=== PATIENT | female | born 1960 | race American Indian/Alaskan Native ===

== ENCOUNTER 2016-06-19 13:13 | Inpatient (IN) | payer BC ==
[2016-06-19 13:57] LABS: Basophils % (Auto) 0.3 % (0.0-1.8); Hemoglobin 12.6 gm/dl (10.1-14.3); Mean Corpuscular HGB Conc 32 % (30-34); Mean Corpuscular Hemoglobin 27 pg (28-32); Mean Corpuscular Volume 84 fl (79-97); Platelet Count 426 K/mm3 (140-440); Red Blood Count 4.75 M/mm3 (3.65-5.03); Red Cell Distribution Width 14.9 % (13.2-15.2); White Blood Count 14.4 K/mm3 (4.5-11.0)
--- NOTE | 2016-06-19 14:05 | XRay Report ---
AP CHEST: HISTORY: Dyspnea The lungs are markedly hyperinflated consistent with advanced emphysematous changes. No evidence for infiltrate, pleural effusion or pneumothorax. Normal heart and mediastinal structures. IMPRESSION: Emphysematous changes. No acute process noted.
[2016-06-19 14:14] LABS: Anion Gap 13 mmol/L; Blood Urea Nitrogen 15 mg/dL (7-17); Carbon Dioxide 33 mmol/L (22-30); Glucose 126 mg/dL (65-100); Potassium 4.7 mmol/L (3.6-5.0); Sodium 136 mmol/L (137-145)
[2016-06-19 14:29] LABS: ISTAT Base Excess 9; ISTAT HCO3 35.2; ISTAT PCO2 71.8 (35-45); ISTAT PH 7.298 (7.35-7.45); ISTAT PO2 126 (80-105); ISTAT SO2 98; ISTAT TCO2 37
[2016-06-19] MEDS ORDERED: DUONEB 0.5 MG-3 MG/3 ML SOLN IH PRN (14:43)
[2016-06-19] MEDS ORDERED: TYLENOL PO PRN ×2 (14:43→14:48)
--- NOTE | 2016-06-19 14:43 | History and Physical Report ---
History of Present Illness Date of examination: 06/19/16 Chief complaint: I cant breathe, and i keep coughing History of present illness: 55 YO Female with Chronic Respiratory Failure on 4L continuous home oxygen, COPD , presents to ED for evaluation. Pt states that she has been experiencing shortness of breath, with increased coughing and sputum production over the past wee, but symptoms have worsened over the past 24 hours. Pt denies fever, chills, CP, Palpitations, NVD, hemoptysis, unintentional weight loss, night sweats, prolonged travel/immobility, individual/family history of DVT/PE. Past History Past Medical History: COPD, hypertension Past Surgical History: No surgical history, Other (reviewed) Social history: , Lives alone. denies: smoking, alcohol abuse, prescription drug abuse Family history: hypertension Medications and Allergies Allergies Allergy/AdvReac Type Severity Reaction Status Date / Time erythromycin base Allergy Unknown Verified 06/19/16 13:28 Penicillins Allergy Unknown Verified 06/19/16 16:21 Review of Systems All systems: negative Respiratory: cough with sputum, excessive sputum, shortness of breath Exam - Constitutional Vitals: Temp Pulse Resp BP Pulse Ox 98.2 F 102 H 30 H 169/110 99 06/19/16 13:13 06/19/16 13:13 06/19/16 13:13 06/19/16 13:13 06/19/16 13:13 General appearance: Present: mild distress - EENT Eyes: Present: PERRL ENT: hearing intact, clear oral mucosa - Neck Neck: Present: supple, normal ROM - Respiratory Respiratory effort: labored Respiratory: bilateral: diminished, rhonchi - Cardiovascular Rhythm: regular Heart Sounds: Present: S1 & S2 - Extremities Extremities: pulses symmetrical, No edema Peripheral Pulses: within normal limits - Abdominal General gastrointestinal: Present: soft, non-tender, non-distended, normal bowel sounds Female genitourinary: Present: normal - Integumentary Integumentary: Present: clear, warm, dry - Musculoskeletal Musculoskeletal: gait normal, strength equal bilaterally - Psychiatric Psychiatric: appropriate mood/affect, intact judgment & insight - Neurologic Neurologic: CNII-XII intact, moves all extremities Results - Labs CBC & Chem 7: 06/19/16 13:32 06/19/16 13:32 Labs: Abnormal lab results 06/19/16 06/19/1617 Range/Units 13:32 13:32 14:19 WBC 14.4 H (4.5-11.0) K/mm3 MCH 27 L (28-32) pg Lymph % (Auto) 9.6 L (13.4-35.0) % [place] % (Auto) 9.1 H (0.0-7.3) % [place] # 1.3 H (0.0-0.8) K/mm3 Seg Neutrophils % 81.0 H (40.0-70.0) % Seg Neutrophils # 11.7 H (1.8-7.7) K/mm3 POC ABG pH 7.298 L (7.35-7.45) POC ABG pCO2 71.8 H (35-45) POC ABG pO2 126 H (80-105) Sodium 136 L (137-145) mmol/L Chloride 95.0 L (98-107) mmol/L Carbon Dioxide 33 H (22-30) mmol/L Creatinine 0.5 L (0.7-1.2) mg/dL Glucose 126 H (65-100) mg/dL Assessment and Plan - Patient Problems (1) Acute hypercapnic respiratory failure Current Visit: Yes Status: Acute Plan to address problem: NIPPV, nebs, supplemental oxygen, IV abx, steroids, pulmonary toilet, supportive care, (2) Acute respiratory acidosis Current Visit: Yes Status: Acute Plan to address problem: NIPPV, repeat ABG as clinically indicated, telemetry, supportive care, (3) COPD exacerbation Current Visit: Yes Status: Acute Plan to address problem: COPD protocol: IV abx, ivf, supportive care, supplemental oxygen, nebs, pulmonary toilet, aspiration precautions, (4) Accelerated hypertension Current Visit: Yes Status: Acute Plan to address problem: monitor bp q shift, hydralazine, (5) DVT prophylaxis Current Visit: Yes Status: Acute
--- NOTE | 2016-06-19 14:48 | Emergency Department Report ---
ED General Adult HPI - General Chief complaint: Dyspnea/Respdistress Stated complaint: DYSPNEA Time Seen by Provider: 06/19/16 14:08 Source: patient, EMS Mode of arrival: Stretcher Limitations: No Limitations - History of Present Illness Initial comments: Patient is a limited historian secondary to her BiPAP situation. However she is awake enough to answer questions coherently. She is not complaining of chest pain. She does state she's had some recent white sputum production. EMS was notified due to difficulty in breathing today. The patient is on CPAP At night. She does have a home neb machine. As far as I can tell she was on a prednisone taper at 25 mg as of yesterday. She does not smoke. 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 The patient was placed on BiPAP on arrival. She had been given magnesium sulfate and steroids and route to the hospital per EMS. -: Gradual, days(s) Consistency: constant Improves with: none Worsens with: none Associated Symptoms: shortness of breath Treatments Prior to Arrival: none - Related Data Allergies Allergy/AdvReac Type Severity Reaction Status Date / Time erythromycin base Allergy Unknown Verified 06/19/16 13:28 Penicillins Allergy Unknown Unverified 01/18/14 11:21 ED Review of Systems ROS: Stated complaint: DYSPNEA Other details as noted in HPI Comment: Unobtainable due to pts medical conditions ED Past Medical Hx - Past Medical History Previous Medical History?: Yes Hx COPD: Yes Additional medical history: "leaky heart valve" - Social History Smoking Status: Former Smoker ED Physical Exam - General Limitations: No Limitations General appearance: in no apparent distress, lethargic (mildly) - Head Head exam: Present: atraumatic, normocephalic - Eye Eye exam: Present: normal appearance. Absent: scleral icterus - ENT ENT exam: Present: normal exam (Limited secondary to BiPAP) - Neck Neck exam: Present: normal inspection. Absent: tenderness, meningismus - Respiratory Respiratory exam: Present: rhonchi, decreased breath sounds. Absent: respiratory distress - Cardiovascular Cardiovascular Exam: Present: regular rate, normal rhythm. Absent: systolic murmur, diastolic murmur, rubs, gallop - GI/Abdominal GI/Abdominal exam: Present: soft, normal bowel sounds. Absent: distended, tenderness, guarding, rebound, rigid - Extremities Exam Extremities exam: Present: normal inspection - Back Exam Back exam: Present: normal inspection. Absent: CVA tenderness (R), CVA tenderness (L) - Neurological Exam Neurological exam: Present: alert, oriented X3, CN II-XII intact (on limited examination). Absent: motor sensory deficit - Psychiatric Psychiatric exam: Present: normal affect, normal mood - Skin Skin exam: Present: warm, dry, intact, normal color. Absent: rash ED Course Vital Signs 06/19/16 13:13 Temperature 98.2 F Pulse Rate 102 H Respiratory 30 H Rate Blood Pressure 169/110 Blood Pressure 169/110 [Left] O2 Sat by Pulse 99 Oximetry - Reevaluation(s) Reevaluation #1: Arterial blood gas demonstrated the presence of hypercapnic respiratory failure. The patient is doing well on BiPAP. I am going to maintain her settings at this point. Her pH is almost 7.3 so she is stable at this point clinically she is improving. Serial blood gases will be necessary to document improvement in her hypercapnia. Respiratory is aware. Patient is admitted to the hospitalist service in stable condition on BiPAP. 06/19/16 14:47 ED Medical Decision Making - Lab Data Result diagrams: 06/19/16 13:32 06/19/16 13:32 Laboratory Results - last 24 hr 06/19/16 06/19/16 06/19/16 13:32 13:32 14:19 WBC 14.4 H RBC 4.75 Hgb 12.6 Hct 40.0 MCV 84 MCH 27 L MCHC 32 RDW 14.9 Plt Count 426 Lymph % (Auto) 9.6 L [place] % (Auto) 9.1 H Eos % (Auto) 0.0 Baso % (Auto) 0.3 Lymph # 1.4 [place] # 1.3 H Eos # 0.0 Baso # 0.0 Seg Neutrophils % 81.0 H Seg Neutrophils # 11.7 H POC ABG pH 7.298 L POC ABG pCO2 71.8 H POC ABG pO2 126 H POC ABG HCO3 35.2 POC ABG Total CO2 37 POC ABG O2 Sat 98 POC ABG Base Excess 9 FiO2 35 Sodium 136 L Potassium 4.7 Chloride 95.0 L Carbon Dioxide 33 H Anion Gap 13 BUN 15 Creatinine 0.5 L Estimated GFR > 60 BUN/Creatinine Ratio 30.00 Glucose 126 H Calcium 9.0 Troponin T < 0.010 - EKG Data EKG shows normal: sinus rhythm, axis, intervals, QRS complexes, ST-T waves Rate: normal - EKG Data Interpretation: no acute changes - Radiology Data interpreted by me: Chest x-ray showed no acute process Critical Care Time: Yes Critical care time in (mins) excluding proc time.: 35 Critical care attestation.: If time is entered above; I have spent that time in minutes in the direct care of this critically ill patient, excluding procedure time. ED Disposition Clinical Impression: Acute hypercapnic respiratory failure Disposition: OP ADMITTED IP TO THIS HOSP Is pt being admited?: Yes Does the pt Need Aspirin: Yes Condition: Stable Referrals: PRIMARY CARE,MD [Primary Care Provider] - 3-5 Days Time of Disposition: 15:14
[2016-06-19] MEDS ORDERED: PROVENTIL IH PRN (14:49)
[2016-06-19] MEDS ORDERED: BABY ASPIRIN PO ONE (14:49)
--- NOTE | 2016-06-19 14:53 | Admit Criteria Form ---
Admission Criteria Documentation: RESPIRATORY FAILURE GRG Clinical Indications for Admission to Inpatient Care (Place 'X' for any and all applicable criteria): Hospital admission is needed for appropriate care of the patient because of acute respiratory failure or insufficiency as indicated by ANY ONE of the following(1)(2)(3)(4)(5)(6)(7)(8): [ ]I. Mechanical ventilation needed (acute invasive or noninvasive) [X ]II. Severe ventilation deficit as indicated by ANY ONE of the following (9 ) [X ]a) Respiratory acidosis (pH less than 7.32 and partial pressure of carbon dioxide greater than 40 mm Hg (5.3 kPa)) [X ]b) Partial pressure of carbon dioxide greater than 44 mm Hg (5.9 kPa) (new) [ ]c) Airflow measurements less than 25% of predicted (eg, peak expiratory flow rate less than 100 L/minute) [ ]d) Forced vital capacity less than 15 mL/kg of ideal body weight, or 50% decrease in vital capacity from baseline [ ]III. Noncardiac pulmonary edema not resolving with rapid emergency treatment (8) [ ]IV. Severe respiratory distress as indicated by ANY ONE of the following: [ ]a) Severe tachypnea (respiratory rate greater than 30, greater than 45 for 6-month-old, greater than 60 for ) [ ]b) Severe hypoxemia (partial pressure of oxygen less than 50 mm Hg ( 6.7 kPa) on greater than 50% oxygen or partial pressure of oxygen to FIO2 ratio less than 200) [ ]c) Mental status deterioration from respiratory disease [ ]V. Airway obstruction or inadequate protection [A](10)(11) The original [employer] content created by [employer] has been revised. The portions of the content which have been revised are identified through the use of italic text or in bold, and [facility] [facility] [employer] has neither reviewed nor approved the modified material. All other unmodified content is copyright [employer]. Please see references footnoted in the original [employer] edition 2016 Admission Criteria Met: Yes
[2016-06-19] MEDS ORDERED: APRESOLINE IV PRN (14:56)
[2016-06-19] MEDS: LEVAQUIN 750MG/150ML 750 MG/150 ML BAG IV SCH (16:09)
[2016-06-20] MEDS: DUONEB 0.5 MG-3 MG/3 ML SOLN IH SCH ×4 (01:20→19:47)
[2016-06-20] MEDS ORDERED: LEVAQUIN 500MG/100ML 500 MG/100 ML BAG IV SCH (10:00)
[2016-06-20] MEDS: PEPCID PO SCH ×2 (13:11→21:40)
[2016-06-20] MEDS: LEVAQUIN 750MG/150ML 750 MG/150 ML BAG IV SCH (18:21)
--- NOTE | 2016-06-20 23:28 | Progress Note ---
Assessment and Plan Assessment and plan: 55 years old female with COPD and chronic respiratory failure on 4 L home oxygen admitted for worsening shortness of breath and cough 1. Acute on chronic hypercapnic respiratory failure Due to COPD exacerbation Treat underlying condition Supplemental oxygen 2. COPD exacerbation IV antibiotics along with IV corticosteroids, inhaled bronchodilators, incentive spirometry, oxygen 3. Leukocytosis Secondary to corticosteroid use 4. Hyperglycemia Secondary to corticosteroid use 5. DVT prophylaxis History Interval history: sob, wheezing, c/o dry cough Hospitalist Physical - Constitutional Vitals: Temp Pulse Resp BP Pulse Ox 97.7 F 75 18 107/60 99 06/20/16 21:12 06/20/16 22:00 06/20/16 22:00 06/20/16 21:12 06/20/16 21:12 General appearance: Present: mild distress, well-nourished - EENT Eyes: Present: PERRL, EOM intact. Absent: scleral icterus, conjunctival injection - Neck Neck: Present: supple, normal ROM. Absent: masses or JVD - Respiratory Respiratory effort: normal Respiratory: bilateral: diminished, wheezing, negative: rales, rhonchi - Cardiovascular Rhythm: regular Heart Sounds: Present: S1 & S2. Absent: systolic murmur - Extremities Extremities: no ischemia, No edema - Abdominal General gastrointestinal: soft, non-tender, non-distended, normal bowel sounds - Integumentary Integumentary: Present: warm, dry. Absent: jaundice, rash - Psychiatric Psychiatric: cooperative - Neurologic Neurologic: CNII-XII intact, no focal deficits Results - Labs CBC & Chem 7: 06/19/16 13:32 06/19/16 13:32 Labs: Laboratory Last Values WBC 14.4 K/mm3 (4.5-11.0) H 06/19/16 13:32 RBC 4.75 M/mm3 (3.65-5.03) 06/19/16 13:32 Hgb 12.6 gm/dl (10.1-14.3) 06/19/16 13:32 Hct 40.0 % (30.3-42.9) 06/19/16 13:32 MCV 84 fl (79-97) 06/19/16 13:32 MCH 27 pg (28-32) L 06/19/16 13:32 MCHC 32 % (30-34) 06/19/16 13:32 RDW 14.9 % (13.2-15.2) 06/19/16 13:32 Plt Count 426 K/mm3 (140-440) 06/19/16 13:32 Lymph % (Auto) 9.6 % (13.4-35.0) L 06/19/16 13:32 [place] % (Auto) 9.1 % (0.0-7.3) H 06/19/16 13:32 Eos % (Auto) 0.0 % (0.0-4.3) 06/19/16 13:32 Baso % (Auto) 0.3 % (0.0-1.8) 06/19/16 13:32 Lymph # 1.4 K/mm3 (1.2-5.4) 06/19/16 13:32 [place] # 1.3 K/mm3 (0.0-0.8) H 06/19/16 13:32 Eos # 0.0 K/mm3 (0.0-0.4) 06/19/16 13:32 Baso # 0.0 K/mm3 (0.0-0.1) 06/19/16 13:32 Seg Neutrophils % 81.0 % (40.0-70.0) H 06/19/16 13:32 Seg Neutrophils # 11.7 K/mm3 (1.8-7.7) H 06/19/16 13:32 POC ABG pH 7.298 (7.35-7.45) L 06/19/16 14:19 POC ABG pCO2 71.8 (35-45) H 06/19/16 14:19 POC ABG pO2 126 (80-105) H 06/19/16 14:19 POC ABG HCO3 35.2 06/19/16 14:19 POC ABG Total CO2 37 06/19/16 14:19 POC ABG O2 Sat 98 06/19/16 14:19 POC ABG Base Excess 9 06/19/16 14:19 FiO2 35 % 06/19/16 14:19 Sodium 136 mmol/L (137-145) L 06/19/16 13:32 Potassium 4.7 mmol/L (3.6-5.0) 06/19/16 13:32 Chloride 95.0 mmol/L (98-107) L 06/19/16 13:32 Carbon Dioxide 33 mmol/L (22-30) H 06/19/16 13:32 Anion Gap 13 mmol/L 06/19/16 13:32 BUN 15 mg/dL (7-17) 06/19/16 13:32 Creatinine 0.5 mg/dL (0.7-1.2) L 06/19/16 13:32 Estimated GFR > 60 ml/min 06/19/16 13:32 BUN/Creatinine Ratio 30.00 % 06/19/16 13:32 Glucose 126 mg/dL (65-100) H 06/19/16 13:32 Calcium 9.0 mg/dL (8.4-10.2) 06/19/16 13:32 Troponin T < 0.010 ng/mL (0.00-0.029) 06/19/16 13:32 NT-Pro-B Natriuret Pep 104.5 pg/mL (0-900) 06/19/16 13:32 - Imaging and Cardiology EKG: image reviewed Chest x-ray: image reviewed
[2016-06-21] MEDS: DUONEB 0.5 MG-3 MG/3 ML SOLN IH SCH ×5 (08:15→23:30)
[2016-06-21] MEDS: PEPCID PO SCH ×2 (10:07→22:56)
[2016-06-21] MEDS: PULMICORT IH SCH ×2 (13:15→19:54)
[2016-06-21] MEDS: BROVANA NEBU IH SCH ×2 (13:15→19:54)
--- NOTE | 2016-06-21 15:36 | Consultation ---
History of Present Illness Consult date: 06/21/16 Requesting physician: LUIS ROBERSON Reason for consult: dyspnea, COPD History of present illness: 55 y/o female, with known COPD and chronic respiratory failure admitted with COPD exacerbation. Most likely secondary to sick contacts in family. has been on steroids and treatment here and not really improving so pulmonary asked to evaluate. Past History Past Medical History: COPD, hypertension Past Surgical History: No surgical history, Other (reviewed) Social history: , Lives alone. denies: smoking, alcohol abuse, prescription drug abuse Family history: hypertension Medications and Allergies Allergies Allergy/AdvReac Type Severity Reaction Status Date / Time erythromycin base Allergy Unknown Verified 06/19/16 13:28 Penicillins Allergy Unknown Verified 06/19/16 16:21 Home Medications Medication Instructions Recorded Confirmed Last Taken Type No Known Home Medications [No 06/20/16 06/20/16 Unknown History Reported Home Medications] Active Meds: Active Medications Acetaminophen (Tylenol) 650 mg PO Q4H PRN PRN Reason: Pain MILD(1-3)/Fever >100.5/TOVAR Albuterol (Proventil) 2.5 mg IH Q4HRT PRN PRN Reason: Shortness Of Breath Albuterol/Ipratropium (Duoneb 0.5 Mg-3 Mg/3 Ml Soln) 1 ampul IH TIDRT [facility] Last Admin: 06/21/16 13:16 Dose: Not Given Arformoterol Tartrate (Brovana Nebu) 15 mcg IH Q12HRT [facility] Last Admin: 06/21/16 13:15 Dose: 15 mcg Budesonide (Pulmicort) 0.25 mg IH Q12HRT [facility] Last Admin: 06/21/16 13:15 Dose: 0.25 mg Famotidine (Pepcid) 20 mg PO BID [facility] Last Admin: 06/21/16 10:07 Dose: 20 mg Guaifenesin (Mucinex Er) 600 mg PO BID [facility] Hydralazine HCl (Apresoline) 10 mg IV Q6H PRN PRN Reason: Hypertension Levofloxacin (Levaquin) 750 mg PO Q24H [facility] Methylprednisolone Sodium Succinate (Solu-Medrol) 40 mg IV Q24H [facility] Last Admin: 06/20/16 18:22 Dose: 40 mg Review of Systems All systems: negative Physical Examination Vital signs: Vital Signs Temp Pulse Resp BP Pulse Ox 98.2 F 102 H 30 H 169/110 99 06/19/16 13:13 06/19/16 13:13 06/19/16 13:13 06/19/16 13:13 06/19/16 13:13 General appearance: no acute distress, alert Eyes: non-icteric ENT: oropharynx moist Neck: supple, no lymphadenopathy Ascultation: Right: rales (base) Percussion: Bilateral: not dull Tactile fremitus: Bilateral: normal Cardiovascular: regular rate and rhythm Gastrointestinal: normoactive bowel sounds Integumentary: normal Extremities: no cyanosis, no edema, pink and warm, pulses normal normal mental status, non-focal exam mood appropriate, affect normal Results - Laboratory Findings CBC and BMP: 06/19/16 13:32 06/19/16 13:32 ABG POC ABG pH 7.298 (7.35-7.45) L 06/19/16 14:19 POC ABG pCO2 71.8 (35-45) H 06/19/16 14:19 POC ABG pO2 126 (80-105) H 06/19/16 14:19 POC ABG HCO3 35.2 06/19/16 14:19 POC ABG Total CO2 37 06/19/16 14:19 POC ABG O2 Sat 98 06/19/16 14:19 - Diagnostic Findings Chest x-ray: image reviewed (hyperinflation but evidence of acute lung disease) Assessment and Plan 55 y/o female with known COPD and chronic respiratory failure admitted with COPD exacerbation 1. Change frequency of nebs to q4hour scheduled for the next 24 hours 2. Will increase steroid to TID for the next 24 hours same strength 3. OOB to chair and ambulate in halls as tolerated Thank you for this consult. Will continue to follow along with you.
[2016-06-21] MEDS: MUCINEX ER PO SCH ×2 (16:09→22:56)
[2016-06-21] MEDS: LEVAQUIN PO SCH (16:09)
--- NOTE | 2016-06-21 17:07 | Progress Note ---
Assessment and Plan Assessment and plan: 55 years old female with COPD and chronic respiratory failure on 4 L home oxygen admitted for worsening shortness of breath and cough 1. Acute on chronic hypercapnic respiratory failure Due to COPD exacerbation Treat underlying condition Supplemental oxygen 2. COPD exacerbation IV antibiotics along with IV corticosteroids, inhaled bronchodilators, incentive spirometry, oxygen Pulmonary consulted and CS dose increased as well as frequency of breathing treatments 3. Leukocytosis Secondary to corticosteroid use 4. Hyperglycemia Secondary to corticosteroid use 5. DVT prophylaxis History Interval history: no significanr improvement, wheezing less, but still sob, coughing Hospitalist Physical - Constitutional Vitals: Temp Pulse Resp BP Pulse Ox 98.5 F 95 H 20 109/58 93 06/21/16 16:15 06/21/16 16:53 06/21/16 16:53 06/21/16 16:15 06/21/16 16:15 General appearance: Present: mild distress, well-nourished - EENT Eyes: Present: PERRL, EOM intact. Absent: scleral icterus, conjunctival injection - Neck Neck: Present: supple, normal ROM. Absent: masses or JVD - Respiratory Respiratory effort: normal Respiratory: bilateral: CTA, diminished, wheezing, negative: rales, rhonchi - Cardiovascular Rhythm: regular Heart Sounds: Present: S1 & S2. Absent: systolic murmur - Extremities Extremities: no ischemia - Abdominal General gastrointestinal: soft, non-tender, non-distended, normal bowel sounds - Integumentary Integumentary: Present: warm, dry. Absent: jaundice, rash - Neurologic Neurologic: CNII-XII intact, no focal deficits Results - Labs CBC & Chem 7: 06/19/16 13:32 06/19/16 13:32 Labs: Laboratory Last Values WBC 14.4 K/mm3 (4.5-11.0) H 06/19/16 13:32 RBC 4.75 M/mm3 (3.65-5.03) 06/19/16 13:32 Hgb 12.6 gm/dl (10.1-14.3) 06/19/16 13:32 Hct 40.0 % (30.3-42.9) 06/19/16 13:32 MCV 84 fl (79-97) 06/19/16 13:32 MCH 27 pg (28-32) L 06/19/16 13:32 MCHC 32 % (30-34) 06/19/16 13:32 RDW 14.9 % (13.2-15.2) 06/19/16 13:32 Plt Count 426 K/mm3 (140-440) 06/19/16 13:32 Lymph % (Auto) 9.6 % (13.4-35.0) L 06/19/16 13:32 [place] % (Auto) 9.1 % (0.0-7.3) H 06/19/16 13:32 Eos % (Auto) 0.0 % (0.0-4.3) 06/19/16 13:32 Baso % (Auto) 0.3 % (0.0-1.8) 06/19/16 13:32 Lymph # 1.4 K/mm3 (1.2-5.4) 06/19/16 13:32 [place] # 1.3 K/mm3 (0.0-0.8) H 06/19/16 13:32 Eos # 0.0 K/mm3 (0.0-0.4) 06/19/16 13:32 Baso # 0.0 K/mm3 (0.0-0.1) 06/19/16 13:32 Seg Neutrophils % 81.0 % (40.0-70.0) H 06/19/16 13:32 Seg Neutrophils # 11.7 K/mm3 (1.8-7.7) H 06/19/16 13:32 POC ABG pH 7.298 (7.35-7.45) L 06/19/16 14:19 POC ABG pCO2 71.8 (35-45) H 06/19/16 14:19 POC ABG pO2 126 (80-105) H 06/19/16 14:19 POC ABG HCO3 35.2 06/19/16 14:19 POC ABG Total CO2 37 06/19/16 14:19 POC ABG O2 Sat 98 06/19/16 14:19 POC ABG Base Excess 9 06/19/16 14:19 FiO2 35 % 06/19/16 14:19 Sodium 136 mmol/L (137-145) L 06/19/16 13:32 Potassium 4.7 mmol/L (3.6-5.0) 06/19/16 13:32 Chloride 95.0 mmol/L (98-107) L 06/19/16 13:32 Carbon Dioxide 33 mmol/L (22-30) H 06/19/16 13:32 Anion Gap 13 mmol/L 06/19/16 13:32 BUN 15 mg/dL (7-17) 06/19/16 13:32 Creatinine 0.5 mg/dL (0.7-1.2) L 06/19/16 13:32 Estimated GFR > 60 ml/min 06/19/16 13:32 BUN/Creatinine Ratio 30.00 % 06/19/16 13:32 Glucose 126 mg/dL (65-100) H 06/19/16 13:32 Calcium 9.0 mg/dL (8.4-10.2) 06/19/16 13:32 Troponin T < 0.010 ng/mL (0.00-0.029) 06/19/16 13:32 NT-Pro-B Natriuret Pep 104.5 pg/mL (0-900) 06/19/16 13:32
[2016-06-22] MEDS: DUONEB 0.5 MG-3 MG/3 ML SOLN IH SCH ×5 (03:16→20:08)
[2016-06-22] MEDS: PULMICORT IH SCH ×2 (08:52→20:08)
[2016-06-22] MEDS: BROVANA NEBU IH SCH ×2 (08:52→20:08)
[2016-06-22] MEDS: MUCINEX ER PO SCH ×2 (09:28→21:40)
[2016-06-22] MEDS: PEPCID PO SCH ×2 (09:29→21:41)
--- NOTE | 2016-06-22 14:58 | Progress Note ---
Assessment and Plan 55 y/o female with known COPD and chronic respiratory failure admitted with COPD exacerbation 1. Keep nebs at l1iqigh 2. Keep roids at TID 3. OOB to chair and ambulate in halls as tolerated 4. Likely will be ready for discharge tomorrow. Needs prednisone taper, 60x3, 40x3, 20x3, 10x3 then stop. Resume same regimen from outpatient. Follow up in office in 7-10 days. Subjective Date of service: 06/22/16 Interval history: No acute events. Feels much better today. Objective Vital Signs - 12hr 06/22/16 06/22/16 06/22/16 03:16 03:36 05:52 Temperature 97.5 F L Pulse Rate [ 75 85 Anterior Bilateral Throughout] Pulse Rate [ 84 Right Radial] Respiratory 24 Rate Respiratory 21 17 Rate [Anterior Bilateral Throughout] Blood Pressure 108/72 [Right Radial Artery] O2 Sat by Pulse 95 Oximetry 06/22/16 06/22/16 06/22/16 08:52 09:02 10:00 Temperature 98.0 F Pulse Rate [ 77 79 Anterior Bilateral Throughout] Pulse Rate [ 88 Right Radial] Respiratory 12 Rate Respiratory 20 20 Rate [Anterior Bilateral Throughout] Blood Pressure 115/64 [Right Radial Artery] O2 Sat by Pulse 96 Oximetry Constitutional: no acute distress, alert Eyes: non-icteric ENT: oropharynx moist Neck: supple, no lymphadenopathy Ascultation: Right: rales (base) Percussion: Bilateral: not dull Tactile fremitus: Bilateral: normal Cardiovascular: regular rate and rhythm Gastrointestinal: normoactive bowel sounds Integumentary: normal Extremities: no cyanosis, no edema, pink and warm, pulses normal Neurologic: normal mental status, non-focal exam Psychiatric: mood appropriate, affect normal CBC and BMP: 06/19/16 13:32 06/19/16 13:32 ABG, PT/INR, D-dimer: ABG POC ABG pH 7.298 (7.35-7.45) L 06/19/16 14:19 POC ABG pCO2 71.8 (35-45) H 06/19/16 14:19 POC ABG pO2 126 (80-105) H 06/19/16 14:19 POC ABG HCO3 35.2 06/19/16 14:19 POC ABG Total CO2 37 06/19/16 14:19 POC ABG O2 Sat 98 06/19/16 14:19
--- NOTE | 2016-06-22 16:22 | Progress Note ---
Assessment and Plan Assessment and plan: 55 years old female with COPD and chronic respiratory failure on 4 L home oxygen admitted for worsening shortness of breath and cough 1. Acute on chronic hypercapnic respiratory failure Due to COPD exacerbation Treat underlying condition Supplemental oxygen 2. COPD exacerbation IV antibiotics along with IV corticosteroids, inhaled bronchodilators, incentive spirometry, oxygen Improving, plan to switch CS to po tomorrow and possible discharge 3. Leukocytosis Secondary to corticosteroid use 4. Hyperglycemia Secondary to corticosteroid use 5. DVT prophylaxis History Interval history: feeling better, sob and wheezing improved, as well as, her exercise tolerance Hospitalist Physical - Constitutional Vitals: Temp Pulse Resp BP Pulse Ox 98.0 F 94 H 18 115/64 96 06/22/16 10:00 06/22/16 16:06 06/22/16 16:06 06/22/16 10:00 06/22/16 10:00 General appearance: Present: no acute distress, well-nourished - EENT Eyes: Present: PERRL, EOM intact. Absent: scleral icterus, conjunctival injection - Neck Neck: Present: supple, normal ROM. Absent: masses or JVD - Respiratory Respiratory effort: normal Respiratory: bilateral: CTA, negative: rales, rhonchi, wheezing - Cardiovascular Rhythm: regular Heart Sounds: Present: S1 & S2. Absent: systolic murmur - Extremities Extremities: no ischemia - Abdominal General gastrointestinal: soft, non-tender, non-distended, normal bowel sounds - Integumentary Integumentary: Present: warm, dry. Absent: jaundice, rash - Psychiatric Psychiatric: cooperative - Neurologic Neurologic: CNII-XII intact, no focal deficits Results - Labs CBC & Chem 7: 06/19/16 13:32 06/19/16 13:32 Labs: Laboratory Last Values WBC 14.4 K/mm3 (4.5-11.0) H 06/19/16 13:32 RBC 4.75 M/mm3 (3.65-5.03) 06/19/16 13:32 Hgb 12.6 gm/dl (10.1-14.3) 06/19/16 13:32 Hct 40.0 % (30.3-42.9) 06/19/16 13:32 MCV 84 fl (79-97) 06/19/16 13:32 MCH 27 pg (28-32) L 06/19/16 13:32 MCHC 32 % (30-34) 06/19/16 13:32 RDW 14.9 % (13.2-15.2) 06/19/16 13:32 Plt Count 426 K/mm3 (140-440) 06/19/16 13:32 Lymph % (Auto) 9.6 % (13.4-35.0) L 06/19/16 13:32 [place] % (Auto) 9.1 % (0.0-7.3) H 06/19/16 13:32 Eos % (Auto) 0.0 % (0.0-4.3) 06/19/16 13:32 Baso % (Auto) 0.3 % (0.0-1.8) 06/19/16 13:32 Lymph # 1.4 K/mm3 (1.2-5.4) 06/19/16 13:32 [place] # 1.3 K/mm3 (0.0-0.8) H 06/19/16 13:32 Eos # 0.0 K/mm3 (0.0-0.4) 06/19/16 13:32 Baso # 0.0 K/mm3 (0.0-0.1) 06/19/16 13:32 Seg Neutrophils % 81.0 % (40.0-70.0) H 06/19/16 13:32 Seg Neutrophils # 11.7 K/mm3 (1.8-7.7) H 06/19/16 13:32 POC ABG pH 7.298 (7.35-7.45) L 06/19/16 14:19 POC ABG pCO2 71.8 (35-45) H 06/19/16 14:19 POC ABG pO2 126 (80-105) H 06/19/16 14:19 POC ABG HCO3 35.2 06/19/16 14:19 POC ABG Total CO2 37 06/19/16 14:19 POC ABG O2 Sat 98 06/19/16 14:19 POC ABG Base Excess 9 06/19/16 14:19 FiO2 35 % 06/19/16 14:19 Sodium 136 mmol/L (137-145) L 06/19/16 13:32 Potassium 4.7 mmol/L (3.6-5.0) 06/19/16 13:32 Chloride 95.0 mmol/L (98-107) L 06/19/16 13:32 Carbon Dioxide 33 mmol/L (22-30) H 06/19/16 13:32 Anion Gap 13 mmol/L 06/19/16 13:32 BUN 15 mg/dL (7-17) 06/19/16 13:32 Creatinine 0.5 mg/dL (0.7-1.2) L 06/19/16 13:32 Estimated GFR > 60 ml/min 06/19/16 13:32 BUN/Creatinine Ratio 30.00 % 06/19/16 13:32 Glucose 126 mg/dL (65-100) H 06/19/16 13:32 Calcium 9.0 mg/dL (8.4-10.2) 06/19/16 13:32 Troponin T < 0.010 ng/mL (0.00-0.029) 06/19/16 13:32 NT-Pro-B Natriuret Pep 104.5 pg/mL (0-900) 06/19/16 13:32
[2016-06-22] MEDS: LEVAQUIN PO SCH (16:36)
[2016-06-23] MEDS: DUONEB 0.5 MG-3 MG/3 ML SOLN IH SCH ×4 (00:08→14:08)
[2016-06-23] MEDS: BROVANA NEBU IH SCH (07:48)
[2016-06-23] MEDS: PULMICORT IH SCH (07:49)
--- NOTE | 2016-06-23 10:07 | Discharge Summary ---
Providers - Providers Date of Admission: 06/19/16 14:43 Date of discharge: 06/23/16 Attending physician: LUIS ROBERSON CONSULTS: Pulmonary Primary care physician: MERARY HANDY MD Hospitalization Reason for admission: SOB Condition: Stable Pertinent studies: CXR Hospital course: 55 years old female with COPD and chronic respiratory failure on 4 L home oxygen admitted for worsening shortness of breath and cough; diagnosed with COPD exacerbation and started on IV antibiotics, IV corticosteroids, inhaled bronchodilators, incentive spirometry, oxygen. Pulmonary was consulted and her regimen has been adjusted. She slowly improved, completed antibiotic course and corticosteroids started to be tapered. Discharge in stable condition with PCP and pulmonary follow-up. Discharge diagnoses: 1. Acute on chronic hypercapnic respiratory failure 2. COPD exacerbation 3. Leukocytosis - secondary to corticosteroid use 4. Hyperglycemia - secondary to corticosteroid use Disposition: DISCHARGED TO HOME OR SELFCARE Time spent for discharge: 35 min Core Measure Documentation - Palliative Care Palliative Care/ Comfort Measures: Not Applicable - Core Measures Any of the following diagnoses?: none Exam - Physical Exam Narrative exam: Patient seen and examined: - Constitutional Vitals: Temp Pulse Resp BP Pulse Ox 97.5 F L 87 22 102/67 96 06/23/16 04:54 06/23/16 04:54 06/23/16 04:54 06/23/16 04:54 06/23/16 04:54 General appearance: Present: no acute distress, well-nourished - EENT Eyes: Present: PERRL, EOM intact. Absent: scleral icterus, conjunctival injection - Neck Neck: Present: supple, normal ROM. Absent: masses or JVD - Respiratory Respiratory effort: normal Respiratory: bilateral: CTA, negative: rhonchi, wheezing - Cardiovascular Rhythm: regular Heart Sounds: Present: S1 & S2. Absent: systolic murmur - Extremities Extremities: no ischemia - Abdominal General gastrointestinal: Present: soft, non-tender, non-distended, normal bowel sounds - Musculoskeletal Musculoskeletal: strength equal bilaterally - Psychiatric Psychiatric: cooperative - Neurologic Neurologic: CNII-XII intact, no focal deficits Plan Activity: advance as tolerated Diet: low cholesterol, low salt Follow up with: MERARY HANDY MD [Primary Care Provider] - 3-5 Days MARIBEL MCKEE MD [Staff Physician] - 7 Days Prescriptions: ALBUTEROL NEB's [Proventil 0.083% NEBS] 2.5 mg IH Q4HRT PRN #1 nebu PRN Reason: Shortness Of Breath Arformoterol Nebu [Brovana Nebu] 15 mcg IH Q12HRT #1 ml Budesonide [Pulmicort Respules] 0.25 mg IH Q12HRT #1 nebu Famotidine [Pepcid] 20 mg PO BID #60 tablet guaiFENesin ER [Mucinex ER] 600 mg PO BID #10 tablet predniSONE [Deltasone] 20 mg PO QDAY #20 tab
[2016-06-23] MEDS: MUCINEX ER PO SCH (10:42)
[2016-06-23] MEDS: PEPCID PO SCH (10:42)
[2016-06-23 12:19] VITALS: BP 113/67
== END 2016-06-23 12:44 | disposition home health service (06) | DRG 189 ==
LOC: ED 13:13 → 4A 14:43
PROVIDERS: ADMIT Internal Medicine; ATTEND Internal Medicine
PROC: 5A09357 Assistance with Respiratory Ventilation, Less than 24 Consecutive Hours, Continuous Positive Airway Pressure (ICD-10-PCS; principal; 2016-06-19)
PROC: 4A033R1 Measurement of Arterial Saturation, Peripheral, Percutaneous Approach (ICD-10-PCS; 2016-06-19)
DX: J96.22 Acute and chronic respiratory failure with hypercapnia (principal); J44.1 Chronic obstructive pulmonary disease with (acute) exacerbation; E87.2 Acidosis; T38.0X5A Adverse effect of glucocorticoids and synthetic analogues, initial encounter; D72.829 Elevated white blood cell count, unspecified; R73.9 Hyperglycemia, unspecified; I10 Essential (primary) hypertension; Z82.49 Family history of ischemic heart disease and other diseases of the circulatory system; Z88.0 Allergy status to penicillin; Z88.8 Allergy status to other drugs, medicaments and biological substances; Z87.891 Personal history of nicotine dependence
CPT/HCPCS: 36415; 71010; 80048; 82803; 83880; 84484; 85025; 93005; 93010; 94640; 94660; 94760; 96365; 96375; J1956; J2920

== ENCOUNTER 2017-02-04 14:04 | Outpatient (CLI) | payer BC ==
--- NOTE | 2017-02-04 15:16 | Mammography Report ---
BONE DENSITY STUDY: Osteoporosis screening. DEFINITIONS: BMD = Bone Mineral Density T-score = BMD related to mean peak bone mass of young adult (mean expressed in Standard Deviation) Z-score = Age matched BMD expressed in SD World Health Organization (WHO) Diagnostic Criteria Normal T-score > -1 SD Osteopenia T-score between -1 and -2.4 SD Osteoporosis T-score -2.5 SD or below FINDINGS: The weighted average BMD of lumbar spine L1,L3,L4 is 0.849 with a T-score of -1.9. The weighted average BMD of the left hip is 0.659 with a T-score of -2.3. IMPRESSION: The patient's average T-score is diagnostic for osteopenia and average relative risk for fracture. NOTE: BMD is not the only risk factor for fracture; also consider factors such as the patient's age, risk of falling, previous osteoporotic fracture, family history of osteoporotic fractures, current smoker, and low body weight. Enriquez's triangle is a region of interest in femur, predominantly of trabecular bone. It is not a true anatomic site, and ISCD does not recommend its use clinically.
== END 2017-02-04 14:05 | disposition home or self-care (01) ==
LOC: MAMMO 14:04
PROVIDERS: ATTEND Physical Medicine & Rehabilitation
DX: M85.88 Other specified disorders of bone density and structure, other site (principal); M47.816 Spondylosis without myelopathy or radiculopathy, lumbar region
CPT/HCPCS: 77080

== ENCOUNTER 2018-08-03 03:33 | Inpatient (IN) | payer BC ==
[2018-08-03 04:12] LABS: Basophils % (Auto) 0.3 % (0.0-1.8); Eosinophils # (Auto) 0.2 K/mm3 (0.0-0.4); Eosinophils % (Auto) 1.9 % (0.0-4.3); Hematocrit 38.5 % (30.3-42.9); Hemoglobin 12.5 gm/dl (10.1-14.3); Lymphocytes # (Auto) 2.9 K/mm3 (1.2-5.4); Lymphocytes % (Auto) 29.1 % (13.4-35.0); Mean Corpuscular HGB Conc 33 % (30-34); Mean Corpuscular Volume 88 fl (79-97); Monocytes # (Auto) 0.9 K/mm3 (0.0-0.8); Monocytes % (Auto) 8.7 % (0.0-7.3); Platelet Count 286 K/mm3 (140-440); Red Blood Count 4.39 M/mm3 (3.65-5.03); Red Cell Distribution Width 15.7 % (13.2-15.2)
[2018-08-03 04:35] LABS: BUN/Creatinine Ratio 17; Blood Urea Nitrogen 10 mg/dL (7-17); Calcium 8.7 mg/dL (8.4-10.2); Hemolysis Index 3
--- NOTE | 2018-08-03 04:35 | XRay Report ---
PROCEDURE: XR CHEST 1V AP TECHNIQUE: Chest radiograph single view. HISTORY: Chest Pain COMPARISONS: None . FINDINGS: Heart: Normal. Mediastinum/Vessels: Normal. Lungs/Pleural space: Normal. Bony thorax: No acute osseous abnormality. Life support devices: None. IMPRESSION: No acute cardiopulmonary abnormality. This document is electronically signed by Rin Busby DO., Aug 03 2018 04:32:54 AM ET
[2018-08-03] MEDS ORDERED: ASPIRIN PO ONE ×2 (04:53→06:30)
--- NOTE | 2018-08-03 06:23 | Emergency Department Report ---
ED Chest Pain HPI - General Chief Complaint: Chest Pain Stated Complaint: CHEST PAIN Time Seen by Provider: 08/03/18 06:16 Source: patient Mode of arrival: Wheelchair Limitations: No Limitations - History of Present Illness Initial Comments: 57 year old patient who states she is a insulin-dependent diabetic with a history of COPD presents with chest pain. Patient states that she had intermittent chest pain since Friday morning. It became worse at midnight. At this point she has minimal residual chest tightness which somewhat radiates to her left shoulder. She states that she recently was placed on citalopram. She believed this medicine because "my breathing to slow down". She states that her breathing has slowed down since last night. She is experiencing some shortness of breath despite a normal respiratory rate and pulse oximetry of 100% on room air. She has not received any breathing treatments overnight before I arrived. She states she also uses CPAP. She states the chest pain does worsen on A DEEP INSPIRATION. Patient is Dr. Aldrich's patient. She states that she received a stress test with a "camera" in Dr. Laws's office in May. She reports no abnormal findings. She has no known history of CAD or VTE. -: Gradual Onset: during rest Pain Location: substernal, left chest Severity: mild, moderate Quality: tightness Consistency: intermittent Improves With: nothing Worsens With: inspiration re: dyspnea. denies: nausea, vomting, diaphoresis Other Symptoms: other ("my breathing is slowing down"). denies: cough, fever, syncope Treatments Prior to Arrival: none - Related Data Home Medications Medication Instructions Recorded Confirmed Last Taken AtorvaSTATin [Lipitor] 10 mg PO ONCE 08/03/18 08/03/18 Unknown Fexofenadine HCl [Shelly Allergy] 180 mg PO ONCE 08/03/18 08/03/18 Unknown Montelukast [Singulair] 10 mg PO ONCE 08/03/18 08/03/18 Unknown Previous Rx's Medication Instructions Recorded Last Taken Type ALBUTEROL NEB's [Proventil 0.083% 2.5 mg IH Q4HRT PRN #1 nebu 06/23/16 Unknown Rx NEBS] Arformoterol Nebu [Brovana Nebu] 15 mcg IH Q12HRT #1 ml 06/23/16 Unknown Rx Budesonide [Pulmicort Respules] 0.25 mg IH Q12HRT #1 nebu 06/23/16 Unknown Rx Famotidine [Pepcid] 20 mg PO BID #60 tablet 06/23/16 Unknown Rx guaiFENesin ER [Mucinex ER] 600 mg PO BID #10 tablet 06/23/16 Unknown Rx predniSONE [Deltasone] 20 mg PO QDAY #20 tab 06/23/16 Unknown Rx Allergies Allergy/AdvReac Type Severity Reaction Status Date / Time erythromycin base Allergy Unknown Verified 06/19/16 13:28 Penicillins Allergy Unknown Verified 06/19/16 16:21 Heart Score - HEART Score History: Slightly suspicious EKG: Non-specific Age: 45-65 Risk factors: 1-2 risk factors Troponin: < normal limit HEART Score: 3 - Critical Actions Critical Actions: 0-3 pts:0.9-1.7%risk of adverse cardiac event.Candidate for discharge ED Review of Systems ROS: Stated complaint: CHEST PAIN Other details as noted in HPI Constitutional: denies: chills, fever Eyes: denies: eye pain, eye discharge, vision change ENT: denies: ear pain, throat pain Respiratory: shortness of breath. denies: cough, wheezing Cardiovascular: chest pain. denies: palpitations Endocrine: no symptoms reported Gastrointestinal: denies: abdominal pain, nausea, diarrhea Genitourinary: denies: urgency, dysuria, discharge Musculoskeletal: denies: back pain, joint swelling, arthralgia Skin: denies: rash, lesions Neurological: denies: headache, weakness, paresthesias Psychiatric: depression. denies: anxiety Hematological/Lymphatic: denies: easy bleeding, easy bruising ED Past Medical Hx - Past Medical History Previous Medical History?: Yes Hx COPD: Yes Additional medical history: "leaky heart valve" high chol - Surgical History Past Surgical History?: Yes Hx Appendectomy: Yes Additional Surgical History: hysterectomy - Social History Smoking Status: Never Smoker - Medications Home Medications: Home Medications Medication Instructions Recorded Confirmed Last Taken Type ALBUTEROL NEB's [Proventil 0.083% 2.5 mg IH Q4HRT PRN #1 nebu 06/23/16 08/03/18 Unknown Rx NEBS] Arformoterol Nebu [Brovana Nebu] 15 mcg IH Q12HRT #1 ml 06/23/16 08/03/18 Unknown Rx Budesonide [Pulmicort Respules] 0.25 mg IH Q12HRT #1 nebu 06/23/16 08/03/18 Unknown Rx Famotidine [Pepcid] 20 mg PO BID #60 tablet 06/23/16 08/03/18 Unknown Rx guaiFENesin ER [Mucinex ER] 600 mg PO BID #10 tablet 06/23/16 08/03/18 Unknown Rx predniSONE [Deltasone] 20 mg PO QDAY #20 tab 06/23/16 08/03/18 Unknown Rx AtorvaSTATin [Lipitor] 10 mg PO ONCE 08/03/18 08/03/18 Unknown History Fexofenadine HCl [Shelly Allergy] 180 mg PO ONCE 08/03/18 08/03/18 Unknown History Montelukast [Singulair] 10 mg PO ONCE 08/03/18 08/03/18 Unknown History ED Physical Exam - General Limitations: No Limitations General appearance: alert, in no apparent distress - Head Head exam: Present: atraumatic, normocephalic - Eye Eye exam: Present: normal appearance. Absent: scleral icterus - ENT ENT exam: Present: mucous membranes moist - Neck Neck exam: Present: normal inspection. Absent: tenderness, meningismus - Respiratory Respiratory exam: Present: normal lung sounds bilaterally. Absent: respiratory distress - Cardiovascular Cardiovascular Exam: Present: regular rate, normal rhythm. Absent: systolic murmur, diastolic murmur, rubs, gallop - GI/Abdominal GI/Abdominal exam: Present: soft, normal bowel sounds. Absent: distended, te nderness, guarding, rebound - Extremities Exam Extremities exam: Present: normal inspection. Absent: pedal edema, joint swelling, calf tenderness - Back Exam Back exam: Present: normal inspection - Neurological Exam Neurological exam: Present: alert, oriented X3, CN II-XII intact. Absent: motor sensory deficit - Psychiatric Psychiatric exam: Present: normal mood, flat affect - Skin Skin exam: Present: warm, dry, intact, normal color. Absent: rash ED Course Vital Signs 08/03/18 08/03/18 08/03/18 03:34 04:40 04:45 Temperature 97.9 F Pulse Rate 76 66 69 Pulse Rate [ Apical] Pulse Rate [ Left Radial] Pulse Rate [ Right Radial] Respiratory 22 18 17 Rate Blood Pressure 136/92 127/75 Blood Pressure [Right] O2 Sat by Pulse 100 100 Oximetry 08/03/18 08/03/18 08/03/18 05:00 05:15 05:31 Temperature Pulse Rate 68 65 67 Pulse Rate [ Apical] Pulse Rate [ Left Radial] Pulse Rate [ Right Radial] Respiratory 20 21 21 Rate Blood Pressure 121/80 121/80 121/80 Blood Pressure [Right] O2 Sat by Pulse 100 100 100 Oximetry 08/03/18 08/03/18 08/03/18 05:45 06:00 06:15 Temperature Pulse Rate 67 66 67 Pulse Rate [ Apical] Pulse Rate [ Left Radial] Pulse Rate [ Right Radial] Respiratory 17 19 21 Rate Blood Pressure 121/80 127/77 127/77 Blood Pressure [Right] O2 Sat by Pulse 100 100 100 Oximetry 08/03/18 08/03/18 08/03/18 06:31 06:38 06:53 Temperature Pulse Rate 66 69 Pulse Rate [ Apical] Pulse Rate [ Left Radial] Pulse Rate [ Right Radial] Respiratory 19 20 Rate Blood Pressure 127/77 127/77 Blood Pressure 135/81 [Right] O2 Sat by Pulse 100 100 100 Oximetry 08/03/18 08/03/18 08/03/18 07:00 07:06 07:15 Temperature 98.3 F Pulse Rate 69 71 Pulse Rate [ Apical] Pulse Rate [ Left Radial] Pulse Rate [ Right Radial] Respiratory 20 20 14 Rate Blood Pressure 135/81 135/81 Blood Pressure [Right] O2 Sat by Pulse 100 100 100 Oximetry 08/03/18 08/03/18 08/03/18 07:31 07:45 08:00 Temperature Pulse Rate 66 67 70 Pulse Rate [ Apical] Pulse Rate [ Left Radial] Pulse Rate [ Right Radial] Respiratory 15 16 23 Rate Blood Pressure 127/77 127/77 127/71 Blood Pressure [Right] O2 Sat by Pulse 100 100 99 Oximetry 08/03/18 08/03/18 08/03/18 08:15 08:31 08:45 Temperature Pulse Rate 65 75 69 Pulse Rate [ Apical] Pulse Rate [ Left Radial] Pulse Rate [ Right Radial] Respiratory 20 20 18 Rate Blood Pressure 127/71 127/71 127/71 Blood Pressure [Right] O2 Sat by Pulse 99 100 99 Oximetry 08/03/18 09:15 Temperature Pulse Rate Pulse Rate [ 81 Apical] Pulse Rate [ 81 Left Radial] Pulse Rate [ 81 Right Radial] Respiratory 24 Rate Blood Pressure Blood Pressure [Right] O2 Sat by Pulse 98 Oximetry - Reevaluation(s) Reevaluation #1: A d-dimer be added to the patient's preliminary workup. She will be admitted to the hospitalist service for further care and evaluation. She is in stable condition at the time of my encounter. I will order an albuterol treatment as the patient is experiencing some difficulty in breathing. Her breath sounds are bit distant but she is not frankly wheezing. 08/03/18 06:25 08/03/18 06:26 GABRIEL score - Gabriel Score Age > 65: (0) No Aspirin use within the Past 7 Days: (0) No 3 or more CAD Risk Factors: (0) No 2 or more Angina events in past 24 hrs: (0) No Known CAD with more than 50% Stenosis: (0) No Elevated Cardiac Markers: (0) No ST Deviation Greater than 0.5mm: (0) No GABRIEL Score: 0 ED Medical Decision Making - Lab Data Result diagrams: 08/03/18 03:52 08/03/18 03:52 Laboratory Results - last 24 hr 08/03/18 08/03/18 03:52 03:52 WBC 10.1 RBC 4.39 Hgb 12.5 Hct 38.5 MCV 88 MCH 29 MCHC 33 RDW 15.7 H Plt Count 286 Lymph % (Auto) 29.1 [place] % (Auto) 8.7 H Eos % (Auto) 1.9 Baso % (Auto) 0.3 Lymph # 2.9 [place] # 0.9 H Eos # 0.2 Baso # 0.0 Seg Neutrophils % 60.0 Seg Neutrophils # 6.0 Sodium 140 Potassium 4.2 Chloride 97.6 L Carbon Dioxide 35 H Anion Gap 12 BUN 10 Creatinine 0.6 L Estimated GFR > 60 BUN/Creatinine Ratio 17 Glucose 92 Calcium 8.7 Troponin T < 0.010 - EKG Data -: EKG Interpreted by Me EKG shows normal: sinus rhythm, axis, intervals, QRS complexes, ST-T waves Rate: normal - EKG Data Interpretation: other (there is a tiny R wave in V2. Rotational abnormality, body habitus or loss of anterior septal forces may cause this.) - Radiology Data Radiology results: report reviewed (no acute cardiopulmonary process) Critical care attestation.: If time is entered above; I have spent that time in minutes in the direct care of this critically ill patient, excluding procedure time. ED Disposition Clinical Impression: Chronic hypercapnic respiratory failure Chest pain Qualifiers: Chest pain type: unspecified Qualified Code(s): R07.9 - Chest pain, unspecified COPD (chronic obstructive pulmonary disease) Qualifiers: COPD type: unspecified COPD Qualified Code(s): J44.9 - Chronic obstructive pulmonary disease, unspecified Disposition: 09 OP ADMIT IP TO THIS HOSP Is pt being admited?: Yes Does the pt Need Aspirin: Yes Condition: Stable
[2018-08-03] MEDS ORDERED: NITRO-BID 2% TP ONE (06:27)
[2018-08-03] MEDS ORDERED: PROVENTIL IH ONE (06:28)
[2018-08-03 07:10] LABS: Partial Thromboplastin Time 26.6 Sec. (24.2-36.6)
[2018-08-03 07:23] LABS: Alanine Aminotransferase 20 units/L (7-56); Albumin 3.8 g/dL (3.9-5)
[2018-08-03 07:26] LABS: Bilirubin,Direct < 0.2 mg/dL (0-0.2)
--- NOTE | 2018-08-03 11:08 | History and Physical Report ---
History of Present Illness Date of examination: 08/03/18 Date of admission: 08/03/18 08:26 Chief complaint: Chest pain Shortness of breath History of present illness: Patient is 57 yo with COPD. She presents with chest pain. Chest pain was 8 out of 10, left side of chest, dull pain, radiated to left shoulder, not worse on exertion. She also complained of shortness of breath worse on exertion. Wheezing. patient was seen and evaluated in ED. Initial Troponin normal. Her sack repairer is Dr. Aldrich. Maryyt diagnosed with acute respiratory failure due to COPD exacerbation, and chest pain to rule out acute coronary artey syndrome. Will admit. Past History Past Medical History: COPD, other (Chronic resp failure on home oxygen 4l/min, Pulm hypertension) Past Surgical History: appendectomy, hysterectomy Social history: , lives with family, smoking (Quit smoking recently), full code Medications and Allergies Allergies Allergy/AdvReac Type Severity Reaction Status Date / Time erythromycin base Allergy Unknown Verified 06/19/16 13:28 Penicillins Allergy Unknown Verified 06/19/16 16:21 Home Medications Medication Instructions Recorded Confirmed Last Taken Type ALBUTEROL NEB's [Proventil 0.083% 2.5 mg IH Q4HRT PRN #1 nebu 06/23/16 08/03/18 Unknown Rx NEBS] Arformoterol Nebu [Brovana Nebu] 15 mcg IH Q12HRT #1 ml 06/23/16 08/03/18 Unknown Rx Budesonide [Pulmicort Respules] 0.25 mg IH Q12HRT #1 nebu 06/23/16 08/03/18 Unknown Rx Famotidine [Pepcid] 20 mg PO BID #60 tablet 06/23/16 08/03/18 Unknown Rx guaiFENesin ER [Mucinex ER] 600 mg PO BID #10 tablet 06/23/16 08/03/18 Unknown Rx predniSONE [Deltasone] 20 mg PO QDAY #20 tab 06/23/16 08/03/18 Unknown Rx AtorvaSTATin [Lipitor] 10 mg PO ONCE 08/03/18 08/03/18 Unknown History Carvedilol [Coreg] 12.5 mg PO ONCE 08/03/18 08/03/18 Unknown History Escitalopram [Lexapro] 10 mg PO ONCE 08/03/18 08/03/18 Unknown History Fexofenadine HCl [Shelly Allergy] 180 mg PO ONCE 08/03/18 08/03/18 Unknown His tory Montelukast [Singulair] 10 mg PO ONCE 08/03/18 08/03/18 Unknown History Omeprazole Magnesium [PriLOSEC Otc] 20 mg PO ONCE 08/03/18 08/03/18 Unknown History Omeprazole Magnesium [PriLOSEC Otc] 20 mg PO ONCE 08/03/18 08/03/18 Unknown History Simethicone [Gas Relief] 125 mg PO ONCE 08/03/18 08/03/18 Unknown History guaiFENesin [Mucinex] 1,200 mg PO PRN 08/03/18 08/03/18 Unknown History Review of Systems All systems: negative (No fever, no abd pain, no fever, no Uruinary symptoms. All other systems reviwed and arre negative) Exam - Physical Exam Narrative exam: Gen: Not in acute distress, lying in bed HEENT: Normocephalic, atraumatic Neck: supple, no JVD Heart: S1 and S2 reg, no murmurs, rubs or gallop Lungs: Bilateral rhonchi, wheeze Abd: soft, non tender, non distended, normal BS Ext: No edema, no clubbing, no cyanosis, Neuro: Awake,alert, oriented x 3. No focal neurological sign - Constitutional Vitals: Temp Pulse Resp BP Pulse Ox 98.3 F 69 18 127/71 99 08/03/18 07:15 08/03/18 08:45 08/03/18 08:45 08/03/18 08:45 08/03/18 08:45 Results - Labs CBC & Chem 7: 08/04/18 05:26 08/04/18 05:26 Labs: Abnormal lab results 08/03/18 08/03/18 08/03/18 Range/Units 03:52 03:52 06:43 RDW 15.7 H (13.2-15.2) % [place] % (Auto) 8.7 H (0.0-7.3) % [place] # 0.9 H (0.0-0.8) K/mm3 PT 11.5 L (12.2-14.9) Sec. INR 0.80 L (0.87-1.13) Chloride 97.6 L (98-107) mmol/L Carbon Dioxide 35 H (22-30) mmol/L Creatinine 0.6 L (0.7-1.2) mg/dL Total Protein (6.3-8.2) g/dL Albumin (3.9-5) g/dL 08/03/18 Range/Units 06:43 RDW (13.2-15.2) % [place] % (Auto) (0.0-7.3) % [place] # (0.0-0.8) K/mm3 PT (12.2-14.9) Sec. INR (0.87-1.13) Chloride (98-107) mmol/L Carbon Dioxide (22-30) mmol/L Creatinine (0.7-1.2) mg/dL Total Protein 6.2 L (6.3-8.2) g/dL Albumin 3.8 L (3.9-5) g/dL Assessment and Plan Chest pain. Admit to tele Serial Troponins Nitro Consult Dr. Aldrich Acute on chronic resp failure due to COPD exacerbation supplemental Oxygen COPD exacerbation start solumedrol duoneb Consult Dr. George, her Pulm Pulm hypertension Pulm to evaluate Full code status
[2018-08-03] MEDS ORDERED: ZOFRAN IV PRN (11:14)
[2018-08-03] MEDS ORDERED: TYLENOL PO PRN (11:14)
[2018-08-03] MEDS ORDERED: SODIUM CHLORIDE FLUSH SYRINGE 10 ML IV PRN (11:14)
--- NOTE | 2018-08-03 12:27 | Consultation ---
History of Present Illness Consult date: 08/03/18 Consult reason: chest pain History of present illness: This is a 57 year old woman with COPD and chronic respiratory failure on home O2. She also has a history of resolving nonischemic cardiomyopathy. A cardiac cath in 2007 was negative for coronary artery disease but there was a mildly decreased LVEF 40-45% by LV angiogram. Follow up echocardiograms has been consistent with resolving cardiomyopathy, ejection fraction 45-50%. Patient presents with complaints of shortness of breath and chest pain, admitted with COPD exacerbation. Chest pain is musculoskeletal, reproducible on palpation. A chest x-ray is negative for interstitial edema. Cardiac enzymes are normal and her ECG is benign. A cardiac consultation has been requested for ches t pain evaluation. Past History Past Medical History: COPD, other (Chronic resp failure on home oxygen 4l/min, Pulm hypertension) Past Surgical History: appendectomy, hysterectomy Social history: , lives with family, smoking (Quit smoking recently), full code Medications and Allergies Allergies Allergy/AdvReac Type Severity Reaction Status Date / Time erythromycin base Allergy Unknown Verified 06/19/16 13:28 Penicillins Allergy Unknown Verified 06/19/16 16:21 Home Medications Medication Instructions Recorded Confirmed Last Taken Type ALBUTEROL NEB's [Proventil 0.083% 2.5 mg IH Q4HRT PRN #1 nebu 06/23/16 Unknown Rx NEBS] Arformoterol Nebu [Brovana Nebu] 15 mcg IH Q12HRT #1 ml 06/23/16 Unknown Rx Budesonide [Pulmicort Respules] 0.25 mg IH Q12HRT #1 nebu 06/23/16 Unknown Rx Famotidine [Pepcid] 20 mg PO BID #60 tablet 06/23/16 Unknown Rx guaiFENesin ER [Mucinex ER] 600 mg PO BID #10 tablet 06/23/16 Unknown Rx predniSONE [Deltasone] 20 mg PO QDAY #20 tab 06/23/16 Unknown Rx Active Meds: Active Medications Acetaminophen (Tylenol) 650 mg PO Q4H PRN PRN Reason: Pain MILD(1-3)/Fever >100.5/TOVAR Acetaminophen/Hydrocodone Bitart ([place] 5/325) 1 each PO Q6H PRN PRN Reason: Pain, Moderate (4-6) Albuterol (Proventil) 2.5 mg IH TIDRT BUTCH Albuterol/Ipratropium (Duoneb *Not For Prn Use*) 1 ampul IH Q6HRT BUTCH Arformoterol Tartrate (Brovana Nebu) 15 mcg IH Q12HRT BUTCH Budesonide (Pulmicort) 0.5 mg IH Q12HRT BUTCH Methylprednisolone Sodium Succinate (Solu-Medrol) 60 mg IV Q8HR BUTCH Ondansetron HCl (Zofran) 4 mg IV Q6H PRN PRN Reason: Nausea And Vomiting Sodium Chloride (Sodium Chloride Flush Syringe 10 Ml) 10 ml IV BID BUTCH Sodium Chloride (Sodium Chloride Flush Syringe 10 Ml) 10 ml IV PRN PRN PRN Reason: LINE FLUSH Physical Examination Vital Signs Temp Pulse Resp BP Pulse Ox 97.9 F 76 22 136/92 100 08/03/18 03:34 08/03/18 03:34 08/03/18 03:34 08/03/18 03:34 08/03/18 03:34 General appearance: no acute distress HEENT: Positive: PERRL Neck: Positive: trachea midline Cardiac: Positive: Reg Rate and Rhythm Lungs: Positive: Decreased Breath Sounds Neuro: Positive: Grossly Intact Extremities: Absent: edema Results 08/03/18 03:52 08/03/18 03:52 Cardiac Enzymes 08/03/18 Range/Units 06:43 AST 18 (5-40) units/L Coagulation 08/03/18 Range/Units 06:43 PT 11.5 L (12.2-14.9) Sec. INR 0.80 L (0.87-1.13) APTT 26.6 (24.2-36.6) Sec. CBC 08/03/18 Range/Units 03:52 WBC 10.1 (4.5-11.0) K/mm3 RBC 4.39 (3.65-5.03) M/mm3 Hgb 12.5 (10.1-14.3) gm/dl Hct 38.5 (30.3-42.9) % Plt Count 286 (140-440) K/mm3 Lymph # 2.9 (1.2-5.4) K/mm3 [place] # 0.9 H (0.0-0.8) K/mm3 Eos # 0.2 (0.0-0.4) K/mm3 Baso # 0.0 (0.0-0.1) K/mm3 Comprehensive Metabolic Panel 08/03/18 08/03/18 Range/Units 03:52 06:43 Sodium 140 (137-145) mmol/L Potassium 4.2 (3.6-5.0) mmol/L Chloride 97.6 L (98-107) mmol/L Carbon Dioxide 35 H (22-30) mmol/L BUN 10 (7-17) mg/dL Creatinine 0.6 L (0.7-1.2) mg/dL Glucose 92 (65-100) mg/dL Calcium 8.7 (8.4-10.2) mg/dL Direct Bilirubin < 0.2 (0-0.2) mg/dL Indirect Bilirubin 0.0 mg/dL AST 18 (5-40) units/L ALT 20 (7-56) units/L Alkaline Phosphatase 37 (35-129) units/L Total Protein 6.2 L (6.3-8.2) g/dL Albumin 3.8 L (3.9-5) g/dL Assessment and Plan COPD exacerbation on home O2 Chest pain, atypical Hyypertension Normal coronaries, EF 40-45% by LHC 11/2007. Normal MPI 06/2014. EF 45-50% by echocardiogram 01/2018.
--- NOTE | 2018-08-03 13:22 | Consultation ---
History of Present Illness Consult date: 08/03/18 Requesting physician: LISSET VIDES Reason for consult: COPD History of present illness: 57 yo followed by Doris, on 4L NC at home, CPAP QHS, Trelegy. She "stopped smoking last week". She was placed on Lexapro a few days ago. Subsequently developed some increased SOB and chest pressure anteriorly. She has anxiety. She cannot tell me whether she has had cough/congestion. Denies fevers, chills. Past History Past Medical History: COPD, other (Chronic resp failure on home oxygen 4l/min, Pulm hypertension) Past Surgical History: appendectomy, hysterectomy Social history: , lives with family, smoking (Quit smoking recently), full code Family history: other (No pulm issues reported) Medications and Allergies Allergies Allergy/AdvReac Type Severity Reaction Status Date / Time erythromycin base Allergy Unknown Verified 06/19/16 13:28 Penicillins Allergy Unknown Verified 06/19/16 16:21 Home Medications Medication Instructions Recorded Confirmed Last Taken Type ALBUTEROL NEB's [Proventil 0.083% 2.5 mg IH Q4HRT PRN #1 nebu 06/23/16 Unknown Rx NEBS] Arformoterol Nebu [Brovana Nebu] 15 mcg IH Q12HRT #1 ml 06/23/16 Unknown Rx Budesonide [Pulmicort Respules] 0.25 mg IH Q12HRT #1 nebu 06/23/16 Unknown Rx Famotidine [Pepcid] 20 mg PO BID #60 tablet 06/23/16 Unknown Rx guaiFENesin ER [Mucinex ER] 600 mg PO BID #10 tablet 06/23/16 Unknown Rx predniSONE [Deltasone] 20 mg PO QDAY #20 tab 06/23/16 Unknown Rx Active Meds: Active Medications Acetaminophen (Tylenol) 650 mg PO Q4H PRN PRN Reason: Pain MILD(1-3)/Fever >100.5/TOVAR Acetaminophen/Hydrocodone Bitart ([place] 5/325) 1 each PO Q6H PRN PRN Reason: Pain, Moderate (4-6) Albuterol (Proventil) 2.5 mg IH TIDRT BUTCH Albuterol/Ipratropium (Duoneb *Not For Prn Use*) 1 ampul IH Q6HRT BUTCH Arformoterol Tartrate (Brovana Nebu) 15 mcg IH Q12HRT BUTCH Budesonide (Pulmicort) 0.5 mg IH Q12HRT BUTCH Methylprednisolone Sodium Succinate (Solu-Medrol) 60 mg IV Q8H BUTCH Sodium Chloride (Sodium Chloride Flush Syringe 10 Ml) 10 ml IV BID BUTCH Sodium Chloride (Sodium Chloride Flush Syringe 10 Ml) 10 ml IV PRN PRN PRN Reason: LINE FLUSH Review of Systems All systems: negative Physical Examination Vital signs: Vital Signs Temp Pulse Resp BP Pulse Ox 97.9 F 76 22 136/92 100 08/03/18 03:34 08/03/18 03:34 08/03/18 03:34 08/03/18 03:34 08/03/18 03:34 General appearance: no acute distress, alert Eyes: non-icteric ENT: oropharynx moist Neck: supple Effort: normal Ascultation: Bilateral: diminished breath sounds (poor air movement) Cardiovascular: regular rate and rhythm Gastrointestinal: normoactive bowel sounds, soft, non-tender, non-distended Integumentary: normal Extremities: no cyanosis, no edema, pink and warm normal mental status, non-focal exam, pupils equal and round, CN II-XII normal mood appropriate, affect normal Results - Laboratory Findings CBC and BMP: 08/03/18 03:52 08/03/18 03:52 PT/INR, D-dimer PT 11.5 Sec. (12.2-14.9) L 08/03/18 06:43 INR 0.80 (0.87-1.13) L 08/03/18 06:43 < 135.00 ng/mlDDU (0-234) 08/03/18 06:43 Abnormal lab findings: Abnormal Labs 08/03/18 08/03/18 08/03/18 03:52 03:52 06:43 RDW 15.7 H [place] % (Auto) 8.7 H [place] # 0.9 H PT 11.5 L INR 0.80 L Chloride 97.6 L Carbon Dioxide 35 H Creatinine 0.6 L POC Glucose Total Protein Albumin 08/03/18 08/03/18 06:43 12:04 RDW [place] % (Auto) [place] # PT INR Chloride Carbon Dioxide Creatinine POC Glucose 121 H Total Protein 6.2 L Albumin 3.8 L - Diagnostic Findings Chest x-ray: report reviewed, image reviewed (no acute findings) Assessment and Plan Imp: 1. Centrilobular emphysema 2. COPD exac. 3. Chronic respiratory failure, hypoxia 4. PAGE 5. Chronic nicotine dependence, cigarettes 6. NICMP 7. Chest pain 8. R/o Acute bronchitis Rec: 1. Agree w/ Solumedrol, Duonebs, Pulmicort/Brovana 2. Would treat w/ Levaquin for ~ 5 days for COPD exac. 3. Chest pain felt to be atypical per cardiology, better currently 4. Would stop Lexapro 5. Needs to stop smoking 6. CPAP QHS ordered Plan of care reviewed w/ patient, she understands/agrees Thanks for the consult. Will follow w/ you.
[2018-08-03] MEDS: DUONEB *Not for PRN Use IH SCH ×2 (14:09→21:53)
[2018-08-03] MEDS: PROVENTIL IH SCH ×2 (14:10→21:54)
[2018-08-03] MEDS: LEVAQUIN PO SCH (15:09)
[2018-08-03] MEDS: SOLU-Medrol IV SCH ×2 (15:09→22:04)
[2018-08-03] MEDS ORDERED: PROVENTIL IH PRN (18:37)
[2018-08-03] MEDS: SINGULAIR PO SCH (18:54)
[2018-08-03] MEDS ORDERED: PULMICORT IH SCH (20:00)
[2018-08-03] MEDS ORDERED: BROVANA NEBU IH SCH (20:00)
[2018-08-03] MEDS: BROVANA NEBU IH SCH (21:54)
[2018-08-03] MEDS: PULMICORT IH SCH (21:55)
[2018-08-03] MEDS: NORCO 5/325 PO PRN (22:04)
[2018-08-03] MEDS: MUCINEX ER PO SCH (22:04)
[2018-08-03] MEDS: PEPCID PO SCH (22:04)
[2018-08-03] MEDS: SODIUM CHLORIDE FLUSH SYRINGE 10 ML IV SCH (22:06)
[2018-08-04] MEDS: DUONEB *Not for PRN Use IH SCH ×4 (01:21→21:26)
[2018-08-04] MEDS: SOLU-Medrol IV SCH ×3 (05:23→21:27)
[2018-08-04 06:26] LABS: Hematocrit 37.7 % (30.3-42.9); Hemoglobin 12.3 gm/dl (10.1-14.3); Mean Corpuscular HGB Conc 33 % (30-34); Mean Corpuscular Volume 87 fl (79-97); Platelet Count 277 K/mm3 (140-440); Red Blood Count 4.32 M/mm3 (3.65-5.03); Red Cell Distribution Width 15.1 % (13.2-15.2)
[2018-08-04 06:44] LABS: BUN/Creatinine Ratio 20; Blood Urea Nitrogen 10 mg/dL (7-17); Calcium 8.9 mg/dL (8.4-10.2); Hemolysis Index 1
[2018-08-04 09:13] LABS: Basophils % (Manual) 0 % (0.0-1.8); Eosinophils % (Manual) 0 % (0.0-4.3); Promyelocytes # (Manual) 0.1 K/mm3; Total Cells Counted 100
[2018-08-04 09:14] LABS: Anisocytosis Few; Platelet Estimate Cons
[2018-08-04] MEDS: LOVENOX SUB-Q SCH (09:35)
[2018-08-04] MEDS: PEPCID PO SCH ×2 (09:35→21:26)
[2018-08-04] MEDS: LEVAQUIN PO SCH (09:36)
[2018-08-04] MEDS: MUCINEX ER PO SCH ×2 (09:36→21:26)
[2018-08-04] MEDS: SODIUM CHLORIDE FLUSH SYRINGE 10 ML IV SCH ×2 (09:36→21:27)
[2018-08-04] MEDS: BROVANA NEBU IH SCH ×2 (10:12→21:26)
[2018-08-04] MEDS: PROVENTIL IH SCH ×2 (10:13→14:49)
[2018-08-04] MEDS: PULMICORT IH SCH ×2 (10:21→21:26)
--- NOTE | 2018-08-04 11:26 | Progress Note ---
Assessment and Plan Assessment and plan: Acute on chronic hypoxemic respiratory failure. Etiology secondary to PAGE/OHS and COPD exacerbation. Acute COPD exacerbation. Continue Solu-Medrol, duo nebs, Pulmicort/provider. Acute bronchitis. Continue IV antibiotics. PAGE/OHS. Continue CPAP at bedtime. Nonischemic cardiomyopathy. Deconditioning. PT/OT evaluation. History Interval history: No new issues overnight. Patient states that she feels better but still some shortness of breath with exertion. Hospitalist Physical - Constitutional Vitals: Temp Pulse Resp BP Pulse Ox 97.4 F L 93 H 18 115/76 99 08/04/18 04:33 08/04/18 10:27 08/04/18 10:27 08/04/18 08:55 08/04/18 10:00 General appearance: Present: no acute distress - EENT Eyes: Present: PERRL, EOM intact ENT: hearing intact, clear oral mucosa, dentition normal - Neck Neck: Present: supple, normal ROM - Respiratory Respiratory effort: normal Respiratory: bilateral: CTA - Cardiovascular Rhythm: regular Heart Sounds: Present: S1 & S2. Absent: gallop, rub - Extremities Extremities: no ischemia, No edema, Full ROM - Abdominal General gastrointestinal: soft, non-tender, non-distended, normal bowel sounds - Integumentary Integumentary: Present: clear, warm, dry - Neurologic Neurologic: CNII-XII intact, moves all extremities Results - Labs CBC & Chem 7: 08/04/18 05:26 08/04/18 05:26 Labs: Laboratory Last Values WBC 10.5 K/mm3 (4.5-11.0) 08/04/18 05:26 RBC 4.32 M/mm3 (3.65-5.03) 08/04/18 05:26 Hgb 12.3 gm/dl (10.1-14.3) 08/04/18 05:26 Hct 37.7 % (30.3-42.9) 08/04/18 05:26 MCV 87 fl (79-97) 08/04/18 05:26 MCH 29 pg (28-32) 08/04/18 05:26 MCHC 33 % (30-34) 08/04/18 05:26 RDW 15.1 % (13.2-15.2) 08/04/18 05:26 Plt Count 277 K/mm3 (140-440) 08/04/18 05:26 Lymph % (Auto) 29.1 % (13.4-35.0) 08/03/18 03:52 [place] % (Auto) 8.7 % (0.0-7.3) H 08/03/18 03:52 Eos % (Auto) 1.9 % (0.0-4.3) 08/03/18 03:52 Baso % (Auto) 0.3 % (0.0-1.8) 08/03/18 03:52 Lymph # 2.9 K/mm3 (1.2-5.4) 08/03/18 03:52 [place] # 0.9 K/mm3 (0.0-0.8) H 08/03/18 03:52 Eos # 0.2 K/mm3 (0.0-0.4) 08/03/18 03:52 Baso # 0.0 K/mm3 (0.0-0.1) 08/03/18 03:52 Add Manual Diff Complete 08/04/18 05:26 Total Counted 100 08/04/18 05:26 Seg Neutrophils % Geropsychologist 08/04/18 05:26 Seg Neuts % (Manual) 96.0 % (40.0-70.0) H 08/04/18 05:26 0 % 08/04/18 05:26 2.0 % (13.4-35.0) L 08/04/18 05:26 Reactive Lymphs % (Man) 0 % 08/04/18 05:26 1.0 % (0.0-7.3) 08/04/18 05:26 0 % (0.0-4.3) 08/04/18 05:26 0 % (0.0-1.8) 08/04/18 05:26 0 % 08/04/18 05:26 0 % 08/04/18 05:26 1.0 % 08/04/18 05:26 0 % 08/04/18 05:26 Nucleated RBC % Not Reportable 08/04/18 05:26 Seg Neutrophils # 6.0 K/mm3 (1.8-7.7) 08/03/18 03:52 Seg Neutrophils # Man 10.1 K/mm3 (1.8-7.7) H 08/04/18 05:26 Band Neutrophils # 0.0 K/mm3 08/04/18 05:26 0.2 K/mm3 (1.2-5.4) L 08/04/18 05:26 Abs React Lymphs (Man) 0.0 K/mm3 08/04/18 05:26 0.1 K/mm3 (0.0-0.8) 08/04/18 05:26 0.0 K/mm3 (0.0-0.4) 08/04/18 05:26 0.0 K/mm3 (0.0-0.1) 08/04/18 05:26 0.0 K/mm3 08/04/18 05:26 0.0 K/mm3 08/04/18 05:26 0.1 K/mm3 08/04/18 05:26 Blast Cells # 0.0 K/mm3 08/04/18 05:26 WBC Morphology Not Reportable 08/04/18 05:26 Hypersegmented Neuts Not Reportable 08/04/18 05:26 Hyposegmented Neuts Not Reportable 08/04/18 05:26 Hypogranular Neuts Not Reportable 08/04/18 05:26 Not Reportable 08/04/18 05:26 Not Reportable 08/04/18 05:26 Not Reportable 08/04/18 05:26 Not Reportable 08/04/18 05:26 Not Reportable 08/04/18 05:26 Not Reportable 08/04/18 05:26 Cons 08/04/18 05:26 Not Reportable 08/04/18 05:26 Plt Clumps, EDTA Not Reportable 08/04/18 05:26 Not Reportable 08/04/18 05:26 Not Reportable 08/04/18 05:26 Not Reportable 08/04/18 05:26 Plt Morphology Comment Not Reportable 08/04/18 05:26 RBC Morphology Not Reportable 08/04/18 05:26 Dimorphic RBCs Not Reportable 08/04/18 05:26 Not Reportable 08/04/18 05:26 Not Reportable 08/04/18 05:26 Not Reportable 08/04/18 05:26 Few 08/04/18 05:26 Not Reportable 08/04/18 05:26 Not Reportable 08/04/18 05:26 Not Reportable 08/04/18 05:26 Not Reportable 08/04/18 05:26 Not Reportable 08/04/18 05:26 Not Reportable 08/04/18 05:26 Not Reportable 08/04/18 05:26 Not Reportable 08/04/18 05:26 Not Reportable 08/04/18 05:26 Not Reportable 08/04/18 05:26 Not Reportable 08/04/18 05:26 Not Reportable 08/04/18 05:26 Not Reportable 08/04/18 05:26 Not Reportable 08/04/18 05:26 Not Reportable 08/04/18 05:26 Acanthocytes (Spur) Not Reportable 08/04/18 05:26 Rouleaux Not Reportable 08/04/18 05:26 Not Reportable 08/04/18 05:26 Not Reportable 08/04/18 05:26 Not Reportable 08/04/18 05:26 Not Reportable 08/04/18 05:26 Hem Pathologist Commnt No 08/04/18 05:26 PT 11.5 Sec. (12.2-14.9) L 08/03/18 06:43 INR 0.80 (0.87-1.13) L 08/03/18 06:43 APTT 26.6 Sec. (24.2-36.6) 08/03/18 06:43 < 135.00 ng/mlDDU (0-234) 08/03/18 06:43 Sodium 138 mmol/L (137-145) 08/04/18 05:26 Potassium 4.4 mmol/L (3.6-5.0) 08/04/18 05:26 Chloride 96.7 mmol/L (98-107) L 08/04/18 05:26 Carbon Dioxide 33 mmol/L (22-30) H 08/04/18 05:26 13 mmol/L 08/04/18 05:26 BUN 10 mg/dL (7-17) 08/04/18 05:26 0.5 mg/dL (0.7-1.2) L 08/04/18 05:26 Estimated GFR > 60 ml/min 08/04/18 05:26 20 % 08/04/18 05:26 Glucose 142 mg/dL (65-100) H 08/04/18 05:26 POC Glucose 128 (70-105) H 08/04/18 08:58 Calcium 8.9 mg/dL (8.4-10.2) 08/04/18 05:26 Magnesium 2.30 mg/dL (1.7-2.3) 08/03/18 06:43 < 0.20 mg/dL (0.1-1.2) 08/03/18 06:43 < 0.2 mg/dL (0-0.2) 08/03/18 06:43 0.0 mg/dL 08/03/18 06:43 AST 18 units/L (5-40) 08/03/18 06:43 ALT 20 units/L (7-56) 08/03/18 06:43 37 units/L (35-129) 08/03/18 06:43 < 0.010 ng/mL (0.00-0.029) 08/03/18 10:01 NT-Pro-B Natriuret Pep 41.05 pg/mL (0-900) 08/03/18 06:43 6.2 g/dL (6.3-8.2) L 08/03/18 06:43 3.8 g/dL (3.9-5) L 08/03/18 06:43 1.6 % 08/03/18 06:43 Active Medications - Current Medications Current Medications: Generic Name Dose Route Start Last Admin Trade Name Freq PRN Reason Stop Dose Admin Acetaminophen 650 mg 08/03/18 11:14 Tylenol PO Q4H PRN Pain MILD(1-3)/Fever >100.5/TOVAR Acetaminophen/Hydrocodone Bitart 1 each 08/03/18 11:14 08/03/18 22:04 [place] 5/325 PO 1 each Q6H PRN Administration Pain, Moderate (4-6) Albuterol 2.5 mg 08/03/18 14:00 08/04/18 10:13 Proventil IH 2.5 mg TIDRT BUTCH Administration Albuterol 2.5 mg 08/03/18 18:37 Proventil IH Q4HRT PRN Shortness Of Breath Albuterol/Ipratropium 1 ampul 08/03/18 14:00 08/04/18 10:12 Duoneb *Not For Prn Use* IH 1 ampul Q6HRT BUTCH Administration Arformoterol Tartrate 15 mcg 08/03/18 20:00 08/04/18 10:12 Brovana Nebu IH 15 mcg Q12HRT BUTCH Administration Atorvastatin Calcium 10 mg 08/03/18 22:00 08/03/18 22:04 Lipitor PO 10 mg QHS BUTCH Administration Budesonide 0.25 mg 08/03/18 20:00 08/04/18 10:21 Pulmicort IH 0.25 mg Q12HRT BUTCH Administration Enoxaparin Sodium 40 mg 08/04/18 10:00 08/04/18 09:35 Lovenox SUB-Q 40 mg DAILY BUTCH Administration Famotidine 20 mg 08/03/18 22:00 08/04/18 09:35 Pepcid PO 20 mg BID BUTCH Administration Guaifenesin 600 mg 08/03/18 22:00 08/04/18 09:36 Mucinex Er PO 600 mg BID BUTCH Administration Levofloxacin 500 mg 08/03/18 14:00 08/04/18 09:36 Levaquin PO 500 mg Q24HR BUTCH Administration Methylprednisolone Sodium Succinate 60 mg 08/03/18 14:00 08/04/18 05:23 Solu-Medrol IV 60 mg Q8H BUTCH Administration Montelukast Sodium 10 mg 08/03/18 19:00 08/03/18 18:54 Singulair PO 10 mg QPM BUTCH Administration Sodium Chloride 10 ml 08/03/18 22:00 08/04/18 09:36 Sodium Chloride Flush Syringe 10 Ml IV 10 ml BID BUTCH Administration Sodium Chloride 10 ml 08/03/18 11:14 Sodium Chloride Flush Syringe 10 Ml IV PRN PRN LINE FLUSH
--- NOTE | 2018-08-04 11:45 | Progress Note ---
Assessment and Plan COPD exacerbation Chronic respiratory failure on home O2 Chest pain, atypical Hyypertension Normal coronaries, EF 40-45% by LHC 11/2007. Normal MPI 06/2014. EF 45-50% by echocardiogram 01/2018. Conservative management. Subjective Date of service: 08/04/18 Interval history: Patient reports her breathing is improving. Objective Vital Signs Temp Pulse Pulse Pulse Pulse Pulse Pulse 08/04/18 11:36 98.2 F 95 H 08/04/18 10:27 93 H 88 08/04/18 10:00 08/04/18 08:55 77 08/04/18 04:47 68 08/04/18 04:34 69 08/04/18 04:33 97.4 F L 71 08/04/18 01:33 82 08/04/18 01:23 78 08/04/18 00:57 97.4 F L 70 08/04/18 00:50 72 08/03/18 22:22 08/03/18 22:09 80 08/03/18 21:58 08/03/18 21:15 86 86 86 08/03/18 20:15 75 08/03/18 19:41 98.6 F 87 08/03/18 16:36 98.6 F 89 08/03/18 14:20 76 08/03/18 14:09 72 08/03/18 11:44 Resp Resp Resp Resp BP Pulse Ox 08/04/18 11:36 18 122/73 97 08/04/18 10:27 18 20 08/04/18 10:00 99 08/04/18 08:55 115/76 96 08/04/18 04:47 08/04/18 04:34 98 08/04/18 04:33 18 140/105 99 08/04/18 01:33 20 08/04/18 01:23 22 08/04/18 00:57 17 124/83 98 08/04/18 00:50 08/03/18 22:22 98 08/03/18 22:09 15 08/03/18 21:58 98 08/03/18 21:15 22 16 97 08/03/18 20:15 17 08/03/18 19:41 16 158/92 97 08/03/18 16:36 18 149/92 98 08/03/18 14:20 18 08/03/18 14:09 18 08/03/18 11:44 98 - Physical Examination General: No Apparent Distress HEENT: Positive: PERRL Neck: Positive: trachea midline Cardiac: Positive: Reg Rate and Rhythm Lungs: Positive: Decreased Breath Sounds Neuro: Positive: Grossly Intact Extremities: Absent: edema - Labs and Meds CBC 08/04/18 Range/Units 05:26 WBC 10.5 (4.5-11.0) K/mm3 RBC 4.32 (3.65-5.03) M/mm3 Hgb 12.3 (10.1-14.3) gm/dl Hct 37.7 (30.3-42.9) % Plt Count 277 (140-440) K/mm3 Comprehensive Metabolic Panel 08/04/18 Range/Units 05:26 Sodium 138 (137-145) mmol/L Potassium 4.4 (3.6-5.0) mmol/L Chloride 96.7 L (98-107) mmol/L Carbon Dioxide 33 H (22-30) mmol/L BUN 10 (7-17) mg/dL Creatinine 0.5 L (0.7-1.2) mg/dL Glucose 142 H (65-100) mg/dL Calcium 8.9 (8.4-10.2) mg/dL
--- NOTE | 2018-08-04 16:13 | Progress Note ---
Assessment and Plan Imp: 1. Centrilobular emphysema 2. COPD exac. 3. Chronic respiratory failure, hypoxia 4. PAGE 5. Chronic nicotine dependence, cigarettes 6. NICMP 7. Chest pain 8. R/o Acute bronchitis Rec: 1. Duonebs, Pulmicort/Brovana 2. Would treat w/ Levaquin for ~ 5 days for COPD exac. 3. Chest pain felt to be atypical per cardiology, better currently 4. Would stop Lexapro 5. Needs to stop smoking 6. CPAP QHS 7. Solumedrol today; probably can go home in AM on a prednisone taper if she continues to improve, & f/u with Dr. George in 1-2 weeks Plan of care reviewed w/ patient, she understands/agrees Subjective Date of service: 08/04/18 Principal diagnosis: COPD Interval history: No events. No chest pain. SOB improving. No new complaints. Active Medications Acetaminophen (Tylenol) 650 mg PO Q4H PRN PRN Reason: Pain MILD(1-3)/Fever >100.5/TOVAR Acetaminophen/Hydrocodone Bitart ([place] 5/325) 1 each PO Q6H PRN PRN Reason: Pain, Moderate (4-6) Last Admin: 08/03/18 22:04 Dose: 1 each Documented by: Albuterol (Proventil) 2.5 mg IH TIDRT [facility] Last Admin: 08/04/18 14:49 Dose: 2.5 mg Documented by: Albuterol (Proventil) 2.5 mg IH Q4HRT PRN PRN Reason: Shortness Of Breath Albuterol/Ipratropium (Duoneb *Not For Prn Use*) 1 ampul IH Q6HRT [facility] Last Admin: 08/04/18 14:49 Dose: 1 ampul Documented by: Arformoterol Tartrate (Brovana Nebu) 15 mcg IH Q12HRT [facility] Last Admin: 08/04/18 10:12 Dose: 15 mcg Documented by: Atorvastatin Calcium (Lipitor) 10 mg PO QHS [facility] Last Admin: 08/03/18 22:04 Dose: 10 mg Documented by: Budesonide (Pulmicort) 0.25 mg IH Q12HRT [facility] Last Admin: 08/04/18 10:21 Dose: 0.25 mg Documented by: Enoxaparin Sodium (Lovenox) 40 mg SUB-Q DAILY [facility] Last Admin: 08/04/18 09:35 Dose: 40 mg Documented by: Famotidine (Pepcid) 20 mg PO BID [facility] Last Admin: 08/04/18 09:35 Dose: 20 mg Documented by: Guaifenesin (Mucinex Er) 600 mg PO BID [facility] Last Admin: 08/04/18 09:36 Dose: 600 mg Documented by: Levofloxacin (Levaquin) 500 mg PO Q24HR [facility] Last Admin: 08/04/18 09:36 Dose: 500 mg Documented by: Methylprednisolone Sodium Succinate (Solu-Medrol) 60 mg IV Q8H [facility] Last Admin: 08/04/18 05:23 Dose: 60 mg Documented by: Montelukast Sodium (Singulair) 10 mg PO QPM [facility] Last Admin: 08/03/18 18:54 Dose: 10 mg Documented by: Sodium Chloride (Sodium Chloride Flush Syringe 10 Ml) 10 ml IV BID [facility] Last Admin: 08/04/18 09:36 Dose: 10 ml Documented by: Sodium Chloride (Sodium Chloride Flush Syringe 10 Ml) 10 ml IV PRN PRN PRN Reason: LINE FLUSH Objective Vital Signs - 12hr 08/04/18 08/04/18 08/04/18 04:33 04:34 04:47 Temperature 97.4 F L Pulse Rate 71 69 68 Pulse Rate [ Anterior Bilateral Throughout] Pulse Rate [ Posterior Bilateral Throughout] Respiratory 18 Rate Respiratory Rate [Anterior Bilateral Throughout] Respiratory Rate [Posterior Bilateral Throughout] Blood Pressure 140/105 O2 Sat by Pulse 99 98 Oximetry 08/04/18 08/04/18 08/04/18 08:55 10:00 10:27 Temperature Pulse Rate 77 Pulse Rate [ 93 H Anterior Bilateral Throughout] Pulse Rate [ 88 Posterior Bilateral Throughout] Respiratory Rate Respiratory 18 Rate [Anterior Bilateral Throughout] Respiratory 20 Rate [Posterior Bilateral Throughout] Blood Pressure 115/76 O2 Sat by Pulse 96 99 Oximetry 08/04/18 08/04/18 11:36 14:56 Temperature 98.2 F Pulse Rate 95 H Pulse Rate [ 84 Anterior Bilateral Throughout] Pulse Rate [ 80 Posterior Bilateral Throughout] Respiratory 18 Rate Respiratory 18 Rate [Anterior Bilateral Throughout] Respiratory 16 Rate [Posterior Bilateral Throughout] Blood Pressure 122/73 O2 Sat by Pulse 97 Oximetry Constitutional: no acute distress, alert Eyes: non-icteric ENT: oropharynx moist Neck: supple Effort: normal Ascultation: Bilateral: diminished breath sounds (poor air movement) Cardiovascular: regular rate and rhythm Gastrointestinal: normoactive bowel sounds, soft, non-tender, non-distended Integumentary: normal Extremities: no cyanosis, no edema, pink and warm Neurologic: normal mental status, non-focal exam, pupils equal and round, CN II- XII normal Psychiatric: mood appropriate, affect normal CBC and BMP: 08/04/18 05:26 08/04/18 05:26 ABG, PT/INR, D-dimer: PT/INR, D-dimer PT 11.5 Sec. (12.2-14.9) L 08/03/18 06:43 INR 0.80 (0.87-1.13) L 08/03/18 06:43 < 135.00 ng/mlDDU (0-234) 08/03/18 06:43 Abnormal lab findings: Abnormal Labs 08/03/18 08/03/18 08/03/18 03:52 03:52 06:43 RDW 15.7 H Noble % (Auto) 8.7 H Noble # 0.9 H Seg Neuts % (Manual) Lymphocytes % (Manual) Seg Neutrophils # Man Lymphocytes # (Manual) PT 11.5 L INR 0.80 L Chloride 97.6 L Carbon Dioxide 35 H Creatinine 0.6 L Glucose POC Glucose Total Protein Albumin 08/03/18 08/03/18 08/03/18 06:43 12:04 21:38 RDW Noble % (Auto) Noble # Seg Neuts % (Manual) Lymphocytes % (Manual) Seg Neutrophils # Man Lymphocytes # (Manual) PT INR Chloride Carbon Dioxide Creatinine Glucose POC Glucose 121 H 154 H Total Protein 6.2 L Albumin 3.8 L 08/04/18 08/04/18 08/04/18 05:26 05:26 08:58 RDW Noble % (Auto) Noble # Seg Neuts % (Manual) 96.0 H Lymphocytes % (Manual) 2.0 L Seg Neutrophils # Man 10.1 H Lymphocytes # (Manual) 0.2 L PT INR Chloride 96.7 L Carbon Dioxide 33 H Creatinine 0.5 L Glucose 142 H POC Glucose 128 H Total Protein Albumin Chest x-ray: report reviewed, image reviewed
[2018-08-04] MEDS: SINGULAIR PO SCH (17:00)
[2018-08-04] MEDS: NORCO 5/325 PO PRN (21:29)
[2018-08-05] MEDS: SOLU-Medrol IV SCH ×3 (05:42→15:43)
[2018-08-05] MEDS: NORCO 5/325 PO PRN ×2 (08:30→15:43)
--- NOTE | 2018-08-05 09:03 | Discharge Summary ---
Providers - Providers Date of Admission: 08/03/18 08:26 Date of discharge: 08/05/18 Attending physician: NYA MENESES 08/03/18 10:45 Consult to Physician [CONS] Routine Comment: Consulting Provider: SINCERE BECERRA Physician Instructions: Reason For Exam: chest pain 08/03/18 11:09 Consult to Physician [CONS] Routine Comment: Consulting Provider: HELADIO SANTANA Physician Instructions: Reason For Exam: COPD exacerbation 08/04/18 11:25 Physical Therapy Evaluation and Treat [CONS] Routine Comment: Reason For Exam: deconditioning [facility] Reason for admission: cp and sob Condition: Stable Hospital course: This is a 57 year old woman with COPD and chronic respiratory failure on home O2. She also has a history of resolving nonischemic cardiomyopathy. A cardiac cath in 2007 was negative for coronary artery disease but there was a mildly decreased LVEF 40-45% by LV angiogram. Follow up echocardiograms have been consistent with resolving cardiomyopathy, ejection fraction 45-50%. Patient presented with complaints of shortness of breath and chest pain, admitted with COPD exacerbation. Chest pain was musculoskeletal, reproducible on palpation. A chest x-ray was negative for interstitial edema. Cardiac enzymes were normal and her ECG is benign. A cardiac consultation was requested for chest pain evaluation. Cardiology felt that the patient had no anginal characteristics to her chest pain and no further ischemic workup was necessary. The patient's discomfort was felt to be secondary to COPD exacerbation. Patient was treated with IV Solu-Medrol, DuoNeb's, Pulmicort/Brovana and empiric IV antibiotics. The patient has significant improvement and was felt to have received maximal hospital benefit for discharge. Dedicated discharge time 32 minutes. Disposition: - TO HOME OR SELFCARE Time spent for discharge: 32 - Discharge Diagnoses (1) COPD (chronic obstructive pulmonary disease) Status: Acute Qualifiers: COPD type: unspecified COPD Qualified Code(s): J44.9 - Chronic obstructive pulmonary disease, unspecified (2) Chest pain Status: Acute Qualifiers: Chest pain type: unspecified Qualified Code(s): R07.9 - Chest pain, unspecified (3) Chronic hypercapnic respiratory failure Status: Acute (4) Acute hypercapnic respiratory failure Status: Acute (5) COPD exacerbation Status: Acute Core Measure Documentation - Palliative Care Palliative Care/ Comfort Measures: Not Applicable - Core Measures Any of the following diagnoses?: none Exam - Constitutional Vitals: Temp Pulse Resp BP Pulse Ox 97.3 F L 66 20 141/81 99 08/05/18 07:54 08/05/18 07:54 08/05/18 07:54 08/05/18 07:54 08/05/18 07:54 General appearance: Present: no acute distress, well-nourished - EENT Eyes: Present: PERRL ENT: hearing intact, clear oral mucosa - Neck Neck: Present: supple, normal ROM - Respiratory Respiratory effort: normal Respiratory: bilateral: CTA - Cardiovascular Heart Sounds: Present: S1 & S2. Absent: rub, click - Extremities Extremities: pulses symmetrical, No edema Peripheral Pulses: within normal limits - Abdominal General gastrointestinal: Present: soft, non-tender, non-distended, normal bowel sounds Female genitourinary: Present: normal - Integumentary Integumentary: Present: clear, warm, dry - Musculoskeletal Musculoskeletal: gait normal, strength equal bilaterally - Psychiatric Psychiatric: appropriate mood/affect, intact judgment & insight - Neurologic Neurologic: CNII-XII intact, moves all extremities Plan Activity: advance as tolerated Weight Bearing Status: Weight Bear as Tolerated Diet: regular Follow up with: [facility] OSMAN [Primary Care Provider] - 3-5 Days MARCEL CEVALLOS MD [Staff Physician] - 7 Days SINCERE BECERRA MD [Staff Physician] - 7 Days Prescriptions: Arformoterol Nebu [Brovana Nebu] 15 mcg IH Q12HRT #1 ml levoFLOXacin [Levaquin TAB] 500 mg PO QDAY #5 tablet AtorvaSTATin [Lipitor] 10 mg PO ONCE #30 tablet methylPREDNISolone [Medrol] 4 mg PO QAM #1 tab.ds.pk guaiFENesin ER [Mucinex ER] 600 mg PO BID #10 tablet HYDROcodone/APAP 5-325 [[place] 5-325 mg TAB] 1 each PO Q6H PRN #8 tablet PRN Reason: Pain, Moderate (4-6) Famotidine [Pepcid] 20 mg PO BID #60 tablet ALBUTEROL NEB's [Proventil 0.083% NEBS] 2.5 mg IH Q4HRT PRN #1 nebu PRN Reason: Shortness Of Breath Budesonide [Pulmicort Respules] 0.25 mg IH Q12HRT #1 nebu Montelukast [Singulair] 10 mg PO DAILY #30 tablet
[2018-08-05] MEDS: DUONEB *Not for PRN Use IH SCH ×2 (10:20→15:16)
[2018-08-05] MEDS: BROVANA NEBU IH SCH (10:20)
[2018-08-05] MEDS: PULMICORT IH SCH (10:21)
--- NOTE | 2018-08-05 10:32 | Progress Note ---
Assessment and Plan COPD exacerbation Chronic respiratory failure on home O2 Chest pain, atypical Hyypertension Normal coronaries, EF 40-45% by LHC 11/2007. Normal MPI 06/2014. EF 45-50% by echocardiogram 01/2018. Conservative management. Stable cardiac thakur. Once discharged, patient will follow up with Dr Aldrich as previously scheduled. Subjective Date of service: 08/05/18 Principal diagnosis: COPD Interval history: Patient has no complaints. No events on telemetry monitoring. Objective Vital Signs Temp Pulse Pulse Pulse Resp Resp Resp 08/05/18 10:25 08/05/18 10:20 76 20 08/05/18 07:54 97.3 F L 66 20 08/05/18 05:04 98.1 F 74 20 08/05/18 03:00 83 08/05/18 02:50 74 20 08/05/18 02:40 71 20 08/05/18 00:53 97.9 F 71 18 08/04/18 22:00 90 08/04/18 21:45 77 20 08/04/18 21:29 88 20 08/04/18 21:28 08/04/18 19:56 98.6 F 80 20 08/04/18 14:56 84 80 18 16 08/04/18 12:00 69 08/04/18 11:36 98.2 F 95 H 18 BP Pulse Ox 08/05/18 10:25 100 08/05/18 10:20 08/05/18 07:54 141/81 99 08/05/18 05:04 133/85 97 08/05/18 03:00 08/05/18 02:50 08/05/18 02:40 08/05/18 00:53 117/73 86 08/04/18 22:00 97 08/04/18 21:45 08/04/18 21:29 08/04/18 21:28 98 08/04/18 19:56 124/79 97 08/04/18 14:56 08/04/18 12:00 08/04/18 11:36 122/73 97 - Physical Examination General: No Apparent Distress HEENT: Positive: PERRL Neck: Positive: trachea midline Cardiac: Positive: Reg Rate and Rhythm Lungs: Positive: Decreased Breath Sounds Neuro: Positive: Grossly Intact Extremities: Absent: edema
--- NOTE | 2018-08-05 11:12 | Progress Note ---
Assessment and Plan Imp: 1. Centrilobular emphysema 2. COPD exac. 3. Chronic respiratory failure, hypoxia 4. PAGE 5. Chronic nicotine dependence, cigarettes 6. NICMP 7. Chest pain 8. R/o Acute bronchitis Rec: 1. Duonebs, Pulmicort/Brovana; resume Trelegy at d/c 2. Would treat w/ Levaquin for ~ 5 days for COPD exac. 3. Chest pain felt to be atypical per cardiology, better currently 4. Would stop Lexapro 5. Needs to stop smoking 6. CPAP QHS, cont. as outpatient 7. Cont. Singulair daily 8. Prednisone taper at d/c 9. She has home O2 already 10. Can go home pulm-thakur, and f/u with Dr. George 1 week Plan of care reviewed w/ patient, she understands/agrees Subjective Date of service: 08/05/18 Principal diagnosis: COPD Interval history: No events. No chest pain. SOB improving. No new complaints. Ambulating in the room. Wants to go home. Active Medications Acetaminophen (Tylenol) 650 mg PO Q4H PRN PRN Reason: Pain MILD(1-3)/Fever >100.5/TOVAR Acetaminophen/Hydrocodone Bitart ([place] 5/325) 1 each PO Q6H PRN PRN Reason: Pain, Moderate (4-6) Last Admin: 08/04/18 21:29 Dose: 1 each Documented by: Albuterol (Proventil) 2.5 mg IH Q4HRT PRN PRN Reason: Shortness Of Breath Last Admin: 08/05/18 03:02 Dose: 2.5 mg Documented by: Albuterol/Ipratropium (Duoneb *Not For Prn Use*) 1 ampul IH TIDRT [facility] Last Admin: 08/05/18 10:20 Dose: 1 ampul Documented by: Arformoterol Tartrate (Brovana Nebu) 15 mcg IH Q12HRT [facility] Last Admin: 08/05/18 10:20 Dose: 15 mcg Documented by: Atorvastatin Calcium (Lipitor) 10 mg PO QHS [facility] Last Admin: 08/04/18 21:26 Dose: 10 mg Documented by: Budesonide (Pulmicort) 0.25 mg IH Q12HRT [facility] Last Admin: 08/05/18 10:21 Dose: Not Given Documented by: Enoxaparin Sodium (Lovenox) 40 mg SUB-Q DAILY [facility] Last Admin: 08/04/18 09:35 Dose: 40 mg Documented by: Famotidine (Pepcid) 20 mg PO BID [facility] Last Admin: 08/04/18 21:26 Dose: 20 mg Documented by: Guaifenesin (Mucinex Er) 600 mg PO BID [facility] Last Admin: 08/04/18 21:26 Dose: 600 mg Documented by: Levofloxacin (Levaquin) 500 mg PO Q24HR [facility] Last Admin: 08/04/18 09:36 Dose: 500 mg Documented by: Methylprednisolone Sodium Succinate (Solu-Medrol) 60 mg IV Q8H [facility] Last Admin: 08/05/18 05:42 Dose: 60 mg Documented by: Montelukast Sodium (Singulair) 10 mg PO QPM [facility] Last Admin: 08/04/18 17:00 Dose: 10 mg Documented by: Sodium Chloride (Sodium Chloride Flush Syringe 10 Ml) 10 ml IV BID [facility] Last Admin: 08/04/18 21:27 Dose: 10 ml Documented by: Sodium Chloride (Sodium Chloride Flush Syringe 10 Ml) 10 ml IV PRN PRN PRN Reason: LINE FLUSH Objective Vital Signs - 12hr 08/05/18 08/05/18 08/05/18 00:53 02:40 02:50 Temperature 97.9 F Pulse Rate 71 Pulse Rate [ 71 74 Posterior Bilateral Throughout] Respiratory 18 Rate Respiratory 20 20 Rate [Posterior Bilateral Throughout] Blood Pressure 117/73 O2 Sat by Pulse 86 Oximetry 08/05/18 08/05/18 08/05/18 03:00 05:04 07:54 Temperature 98.1 F 97.3 F L Pulse Rate 83 74 66 Pulse Rate [ Posterior Bilateral Throughout] Respiratory 20 20 Rate Respiratory Rate [Posterior Bilateral Throughout] Blood Pressure 133/85 141/81 O2 Sat by Pulse 97 99 Oximetry 08/05/18 08/05/18 08/05/18 10:20 10:25 10:36 Temperature Pulse Rate Pulse Rate [ 76 Posterior Bilateral Throughout] Respiratory Rate Respiratory 20 18 Rate [Posterior Bilateral Throughout] Blood Pressure O2 Sat by Pulse 100 Oximetry Constitutional: no acute distress, alert Eyes: non-icteric ENT: oropharynx moist Neck: supple Effort: normal Ascultation: Bilateral: diminished breath sounds (poor air movement) Cardiovascular: regular rate and rhythm Gastrointestinal: normoactive bowel sounds, soft, non-tender, non-distended Integumentary: normal Extremities: no cyanosis, no edema, pink and warm Neurologic: normal mental status, non-focal exam, pupils equal and round, CN II- XII normal Psychiatric: mood appropriate, affect normal CBC and BMP: 08/04/18 05:26 08/04/18 05:26 ABG, PT/INR, D-dimer: PT/INR, D-dimer PT 11.5 Sec. (12.2-14.9) L 08/03/18 06:43 INR 0.80 (0.87-1.13) L 08/03/18 06:43 < 135.00 ng/mlDDU (0-234) 08/03/18 06:43 Abnormal lab findings: Abnormal Labs 08/03/18 08/03/18 08/03/18 03:52 03:52 06:43 RDW 15.7 H [place] % (Auto) 8.7 H [place] # 0.9 H Seg Neuts % (Manual) Lymphocytes % (Manual) Seg Neutrophils # Man Lymphocytes # (Manual) PT 11.5 L INR 0.80 L Chloride 97.6 L Carbon Dioxide 35 H Creatinine 0.6 L Glucose POC Glucose Total Protein Albumin 08/03/18 08/03/18 08/03/18 06:43 12:04 21:38 RDW [place] % (Auto) [place] # Seg Neuts % (Manual) Lymphocytes % (Manual) Seg Neutrophils # Man Lymphocytes # (Manual) PT INR Chloride Carbon Dioxide Creatinine Glucose POC Glucose 121 H 154 H Total Protein 6.2 L Albumin 3.8 L 08/04/18 08/04/18 08/04/18 05:26 05:26 08:58 RDW [place] % (Auto) [place] # Seg Neuts % (Manual) 96.0 H Lymphocytes % (Manual) 2.0 L Seg Neutrophils # Man 10.1 H Lymphocytes # (Manual) 0.2 L PT INR Chloride 96.7 L Carbon Dioxide 33 H Creatinine 0.5 L Glucose 142 H POC Glucose 128 H Total Protein Albumin 08/04/18 08/04/18 18:50 21:19 RDW [place] % (Auto) [place] # Seg Neuts % (Manual) Lymphocytes % (Manual) Seg Neutrophils # Man Lymphocytes # (Manual) PT INR Chloride Carbon Dioxide Creatinine Glucose POC Glucose 110 H 146 H Total Protein Albumin Chest x-ray: report reviewed, image reviewed
[2018-08-05] MEDS: LOVENOX SUB-Q SCH (11:40)
[2018-08-05] MEDS: PEPCID PO SCH (11:40)
[2018-08-05] MEDS: LEVAQUIN PO SCH (11:40)
[2018-08-05] MEDS: SODIUM CHLORIDE FLUSH SYRINGE 10 ML IV SCH (11:40)
[2018-08-05] MEDS: MUCINEX ER PO SCH (11:40)
[2018-08-05 12:12] VITALS: BP 125/79
== END 2018-08-05 16:49 | disposition home health service (06) | DRG 189 ==
LOC: ED 03:33 → 4A 08:26
PROVIDERS: ADMIT Internal Medicine; ATTEND Hospitalist
PROC: 5A09357 Assistance with Respiratory Ventilation, Less than 24 Consecutive Hours, Continuous Positive Airway Pressure (ICD-10-PCS; principal; 2018-08-03)
DX: J96.22 Acute and chronic respiratory failure with hypercapnia (principal); I42.9 Cardiomyopathy, unspecified; J96.21 Acute and chronic respiratory failure with hypoxia; Z90.710 Acquired absence of both cervix and uterus; J43.2 Centrilobular emphysema; J20.9 Acute bronchitis, unspecified; E11.9 Type 2 diabetes mellitus without complications; F32.9 Major depressive disorder, single episode, unspecified; I27.20 Pulmonary hypertension, unspecified; R07.89 Other chest pain; G47.33 Obstructive sleep apnea (adult) (pediatric); F17.210 Nicotine dependence, cigarettes, uncomplicated; Z79.4 Long term (current) use of insulin; Z88.0 Allergy status to penicillin; Z88.1 Allergy status to other antibiotic agents; Z90.49 Acquired absence of other specified parts of digestive tract
CPT/HCPCS: 36415; 71045; 80048; 80076; 82962; 83735; 83880; 84484; 85007; 85025; 85379; 85610; 85730; 93005; 93010; 94640; 94660; 94760; G0378; A9270-GY; J1650; J2930

== ENCOUNTER 2018-12-04 12:39 | Emergency (ER) | payer BC ==
[2018-12-04] MEDS ORDERED: DUONEB *Not for PRN Use IH ONE (13:19)
--- NOTE | 2018-12-04 13:45 | Emergency Department Report ---
HPI - General Chief Complaint: Dyspnea/Respdistress Time Seen by Provider: 12/04/18 12:52 - HPI HPI: 58-year-old [place] female presents to the emergency department from home with complaint of swelling to her neck, shortness of breath. Patient says that she had a flu shot done on Friday, 2 days ago and since that time she feels that her neck has been swelling. She also feels that it started swelling when she is out in the heat. It has gotten to the point where she feels that when she swallows she "feels like regurgitating." She called the office of her cobol developer, Dr. Velazquez, and was told to go to the emergency department. The shortness of breath has been going on for the past 3-4 days. She has a past medical history of COPD, hypertension, "leaky heart valve", high cholesterol. Her primary care physician is Eliana Yepez and her web content coordinator is Dr. Aldrich. She uses 6 L nasal cannula oxygen at home and a CPAP at night. She denies any chest pain, back pain, fever, lower extremity swelling. No recent travel or sick contacts at home. ED Past Medical Hx - Past Medical History Previous Medical History?: Yes Hx Hypertension: Yes Hx COPD: Yes Additional medical history: "leaky heart valve" high chol - Surgical History Past Surgical History?: Yes Hx Appendectomy: Yes Additional Surgical History: hysterectomy - Social History Smoking Status: Never Smoker - Medications Home Medications: Home Medications Medication Instructions Recorded Confirmed Last Taken Type Carvedilol [Coreg] 12.5 mg PO ONCE 08/03/18 08/03/18 Unknown History Escitalopram [Lexapro] 10 mg PO ONCE 08/03/18 08/03/18 Unknown History Fexofenadine HCl [Shelly Allergy] 180 mg PO ONCE 08/03/18 08/03/18 Unknown History Omeprazole Magnesium [PriLOSEC Otc] 20 mg PO ONCE 08/03/18 08/03/18 Unknown History Omeprazole Magnesium [PriLOSEC Otc] 20 mg PO ONCE 08/03/18 08/03/18 Unknown History Simethicone [Gas Relief] 125 mg PO ONCE 08/03/18 08/03/18 Unknown History guaiFENesin [Mucinex] 1,200 mg PO PRN 08/03/18 08/03/18 Unknown History ALBUTEROL NEB's [Proventil 0.083% 2.5 mg IH Q4HRT PRN #1 nebu 08/05/18 Unknown Rx NEBS] Arformoterol Nebu [Brovana Nebu] 15 mcg IH Q12HRT #1 ml 08/05/18 Unknown Rx AtorvaSTATin [Lipitor] 10 mg PO ONCE #30 tablet 08/05/18 Unknown Rx Budesonide [Pulmicort Respules] 0.25 mg IH Q12HRT #1 nebu 08/05/18 Unknown Rx Famotidine [Pepcid] 20 mg PO BID #60 tablet 08/05/18 Unknown Rx HYDROcodone/APAP 5-325 [[place] 1 each PO Q6H PRN #8 tablet 08/05/18 Unknown Rx 5-325 mg TAB] Montelukast [Singulair] 10 mg PO DAILY #30 tablet 08/05/18 Unknown Rx guaiFENesin ER [Mucinex ER] 600 mg PO BID #10 tablet 08/05/18 Unknown Rx levoFLOXacin [Levaquin TAB] 500 mg PO QDAY #5 tablet 08/05/18 Unknown Rx methylPREDNISolone [Medrol] 4 mg PO QAM #1 tab.ds.pk 08/05/18 Unknown Rx Levalbuterol [Xopenex] 0.63 mg IH Q4H PRN #1 box 12/04/18 Unknown Rx ED Review of Systems ROS: Stated complaint: SOB/COPD Other details as noted in HPI Comment: All other systems reviewed and negative Constitutional: denies: chills, fever Eyes: denies: eye pain, vision change ENT: other (neck swelling). denies: ear pain, throat pain Respiratory: shortness of breath, wheezing Cardiovascular: denies: chest pain, edema Gastrointestinal: denies: abdominal pain, vomiting Genitourinary: denies: dysuria, frequency Musculoskeletal: denies: back pain, arthralgia Skin: denies: rash, lesions Neurological: denies: headache, weakness Physical Exam - Physical Exam Physical Exam: GENERAL: The patient is well-developed well-nourished. HENT: Normocephalic. Atraumatic. Patient has moist mucous membranes. Oropharynx is clear without any tonsillar hypertrophy, erythema or exudates. No drooling or trismus. EYES: Extraocular motions are intact. Pupils equal reactive to light bilaterally. NECK: Supple. Trachea is midline. There is mild anterior neck fullness but it is soft. No erythema, warmth, fluctuance, rigidity. CHEST/LUNGS: Clear to auscultation. There is no respiratory distress noted. HEART/CARDIOVASCULAR: Regular. There is no tachycardia. There is no murmur. ABDOMEN: Abdomen is soft, nontender. Patient has normal bowel sounds. There is no abdominal distention. SKIN: Skin is warm and dry. NEURO: The patient is awake, alert, and oriented. The patient is cooperative. The patient has no focal neurologic deficits. Normal speech. MUSCULOSKELETAL: There is no tenderness or deformity. There is no evidence of acute injury. ED Medical Decision Making - Lab Data Result diagrams: 12/04/18 13:29 12/04/18 13:29 - Radiology Data Radiology results: report reviewed, image reviewed interpreted by me: Chest x-ray does not show any acute process. There are no pleural effusions, obvious pneumonia and there is no pneumothorax. Soft tissue x-ray of the neck does not show any acute process. CT neck w con INDICATION / CLINICAL INFORMATION: 58 years Female; neck swelling. TECHNIQUE: Contiguous thin cut axial images obtained through the neck following IV contrast. Sagittal and coronal reconstructions performed by the technologist. All CT scans at this location are performed using CT dose reduction for ALARA by means of automated exposure control. COMPARISON: None available. FINDINGS: No focal area of swelling was demarcated with vitamin E capsule or metallic marker. MUCOSAL SPACE: The nasopharynx, oropharynx and vallecula, oral cavity and floor of mouth, hypopharynx, and larynx are grossly normal. Small internal laryngoceles suggested bilaterally-most likely of no clinical significance. LYMPH NODES: No significant adenopathy appreciated. SALIVARY GLANDS: The right parotid gland is slightly increased in size and attenuation when compared with the left-mild sialoadenitis might be consideration. No signs of parotid ductal dilatation. No sialolith identified. P lease clinically correlate. Submandibular and visualized sublingual glands are within normal limits. THYROID GLAND: Unremarkable. PARANASAL SINUSES: Visualized paranasal sinuses and mastoid air cells are essentially clear. SPINE: Disc disease seen at C4-5 and C5-C6 which may slightly encroach upon the cervical cord. MRI could be performed for further evaluation, if clinically warranted. Mild to moderate osseous foraminal narrowing seen at the same levels, predominantly related to uncinate hypertrophy. VASCULAR STRUCTURES: Vascular structures are grossly normal in appearance. Centrilobular emphysema noted. IMPRESSION: 1. Would question right parotid sialoadenitis. Please clinically correlate. 2. No other signs of significant soft tissue swelling appreciated. - Medical Decision Making This patient presents with the complaint of 2 days of some neck swelling. There might be some mild anterior neck fullness but it does not appear like there is any significant swelling. There is no erythema, fluctuance, palpable mass. The patient has a clear oral pharynx and no signs of any drooling or trismus. Her labs have been mostly unremarkable. Chest x-ray did not show any pleural effusions, pneumonia, pneumothorax, focal consolidation, or any other acute process. Soft tissue of the neck did not show any acute process, but was read by radiology as concern for some submental swelling. A CT of the neck with IV contrast was done that showed a questionable right parotid sialoadenitis but otherwise there are no other signs of significant soft tissue swelling that were appreciated and no signs of any infection or mass. Patient does not have any right-sided parotid swelling or discomfort. Her vital signs stable throughout her ED course. Patient says that she had been having some shortness of breath but ultimately says that this is unchanged from her baseline. She is oxygen dependent with her history of COPD. There are no signs of any pleural effusions or pneumonia. She has good follow-up with primary care and pulmonology. The patient asked to be switched from albuterol to Xopenex and was given a prescription. She will return to the emergency Department with any worsening of her symptoms or any acute distress. - Differential Diagnosis thyroid goiter, cellulitis, abscess, Xavier angina Critical Care Time: No Critical care attestation.: If time is entered above; I have spent that time in minutes in the direct care of this critically ill patient, excluding procedure time. ED Disposition Clinical Impression: Neck swelling COPD (chronic obstructive pulmonary disease) Qualifiers: COPD type: unspecified COPD Qualified Code(s): J44.9 - Chronic obstructive pulmonary disease, unspecified Disposition: DC-01 TO HOME OR SELFCARE Is pt being admited?: No Condition: Stable Instructions: Chronic Obstructive Pulmonary Disease (ED) Additional Instructions: Please follow-up with your primary care physician and cobol developer in the next few days. Return to the emergency Department with any worsening of your s ymptoms or any acute distress. Prescriptions: Levalbuterol [Xopenex] 0.63 mg IH Q4H PRN #1 box PRN Reason: Shortness Of Breath Referrals: MARIBEL MCKEE MD [Staff Physician] - 2-3 Days PCP, Your [Other] - 2-3 Days Time of Disposition: 18:32
[2018-12-04 13:55] LABS: Basophils % (Auto) 0.3 % (0.0-1.8); Eosinophils % (Auto) 0.1 % (0.0-4.3); Hematocrit 38.2 % (30.3-42.9); Hemoglobin 12.4 gm/dl (10.1-14.3); Lymphocytes # (Auto) 1.1 K/mm3 (1.2-5.4); Lymphocytes % (Auto) 8.6 % (13.4-35.0); Mean Corpuscular HGB Conc 33 % (30-34); Mean Corpuscular Volume 88 fl (79-97); Platelet Count 295 K/mm3 (140-440); Red Blood Count 4.34 M/mm3 (3.65-5.03); Red Cell Distribution Width 15.7 % (13.2-15.2)
[2018-12-04 14:04] LABS: INR 1.3 (0.87-1.13)
[2018-12-04 14:05] LABS: Partial Thromboplastin Time 26.4 Sec. (24.2-36.6)
[2018-12-04 14:21] LABS: Alanine Aminotransferase 21 units/L (7-56); Albumin 4.1 g/dL (3.9-5); BUN/Creatinine Ratio 12; Blood Urea Nitrogen 7 mg/dL (7-17); Calcium 9.4 mg/dL (8.4-10.2); Hemolysis Index 9
--- NOTE | 2018-12-04 15:04 | XRay Report ---
SOFT TISSUE NECK, 2 VIEWS HISTORY: Neck swelling FINDINGS: There appears to be mild submental prominence. No foreign body or soft tissue gas is identified. The tonsillar structures, base of the tongue, epiglottis and prevertebral soft tissues are unremarkable. The upper trachea appears widely patent. Mild multilevel cervical spondylosis is noted. IMPRESSION: Mild submental soft tissue swelling. Signer Name: Antonio Christie Jr, MD Signed: 12/04/2018 2:59 PM Workstation Name: [id number]
--- NOTE | 2018-12-04 15:05 | XRay Report ---
CHEST 1 VIEW INDICATION: Shortness of breath. COMPARISON: 08/03/2018 FINDINGS: Support devices: None. Heart: Borderline heart size. Lungs/Pleura: The lungs are hyperinflated suggesting underlying emphysematous changes. The left hemid iaphragm is cut off the [id number]. There is no obvious infiltrate, large pleural effusion or pneu mothorax. Additional findings: None. IMPRESSION: Borderline cardiomegaly. Emphysematous changes. No acute process noted. Signer Name: Antonio Christie Jr, MD Signed: 12/04/2018 3:00 PM Workstation Name: [id number]
--- NOTE | 2018-12-04 18:22 | Cat Scan Report ---
CT neck w con INDICATION / CLINICAL INFORMATION: 58 years Female; neck swelling. TECHNIQUE: Contiguous thin cut axial images obtained through the neck following IV contrast. Sagittal and bowers l reconstructions performed by the technologist. All CT scans at this location are performed using CT dose reduction for ALARA by means of automated exposure control. COMPARISON: None available. FINDINGS: No focal area of swelling was demarcated with vitamin E capsule or metallic marker. MUCOSAL SPACE: The nasopharynx, oropharynx and vallecula, oral cavity and floor of mouth, hypopharynx , and larynx are grossly normal. Small internal laryngoceles suggested bilaterally-most likely of no clinical significance. LYMPH NODES: No significant adenopathy appreciated. SALIVARY GLANDS: The right parotid gland is slightly increased in size and attenuation when compared with the left-mild sialoadenitis might be consideration. No signs of parotid ductal dilatation. No si alolith identified. Please clinically correlate. Submandibular and visualized sublingual glands are w ithin normal limits. THYROID GLAND: Unremarkable. PARANASAL SINUSES: Visualized paranasal sinuses and mastoid air cells are essentially clear. SPINE: Disc disease seen at C4-5 and C5-C6 which may slightly encroach upon the cervical cord. MRI co uld be performed for further evaluation, if clinically warranted. Mild to moderate osseous foraminal narrowing seen at the same levels, predominantly related to uncinate hypertrophy. VASCULAR STRUCTURES: Vascular structures are grossly normal in appearance. Centrilobular emphysema noted. IMPRESSION: 1. Would question right parotid sialoadenitis. Please clinically correlate. 2. No other signs of significant soft tissue swelling appreciated. Signer Name: Mainor Wliks MD, III Signed: 12/04/2018 6:18 PM Workstation Name: [id number]
[2018-12-04 19:08] VITALS: BP 122/76
== END 2018-12-04 19:13 | disposition home or self-care (01) ==
LOC: ED 12:39
DX: J44.9 Chronic obstructive pulmonary disease, unspecified (principal); R22.0 Localized swelling, mass and lump, head; I10 Essential (primary) hypertension; E78.00 Pure hypercholesterolemia, unspecified; Z90.710 Acquired absence of both cervix and uterus; Z90.49 Acquired absence of other specified parts of digestive tract; Z79.899 Other long term (current) drug therapy; Z88.0 Allergy status to penicillin; Z88.1 Allergy status to other antibiotic agents
CPT/HCPCS: 36415; 70360; 70491; 71045; 80053; 83880; 84443; 85025; 85610; 85730; 94640; 99285; Q9967; 94644

== ENCOUNTER 2019-01-03 15:12 | Emergency (ER) | payer BC ==
[2019-01-03] MEDS ORDERED: PROVENTIL IH ONE (15:27)
[2019-01-03] MEDS ORDERED: ATROVENT IH ONE (15:28)
[2019-01-03] MEDS ORDERED: TYLENOL PO ONE (15:40)
[2019-01-03] MEDS ORDERED: SOLU-Medrol IV ONE (15:40)
[2019-01-03] MEDS ORDERED: PEPCID IV ONE (15:40)
--- NOTE | 2019-01-03 15:41 | Emergency Department Report ---
ED General Adult HPI - General Chief complaint: Dyspnea/Respdistress Stated complaint: SOB Time Seen by Provider: 01/03/19 15:24 Source: patient, family, RN notes reviewed, old records reviewed Mode of arrival: Wheelchair Limitations: Physical Limitation - History of Present Illness Initial comments: Primary care Dr.: Dr. Yepez Cardiology: Dr Becerra Pulmonology: Dr George This is a 58-year-old female, not known to this provider previously, history of hypertension, COPD, high cholesterol, on home oxygen Patient presents to the ER today with complaint of cough, shortness of breath, malaise and fatigue. These symptoms have been going on since Friday. It is now Friday. She also describes intermittent nonradiating chest pain. The chest pain essential, and bilateral chest wall, and possibly in her breast. The pain does not radiate to the back, arms or neck. There is no vomiting or diaphoresis. There is positive shortness of breath. The patient denies DVT, pulmonary embolus risk factors. She describes intermittent palpitations as well. She reports that she saw her plant and maintenance technician earlier on this week, and they discussed her symptoms. In addition, she was recently admitted to this hospital, and seen by inpatient cardiology, who did not specifically recommend repeat cardiac risk stratification, as they felt that her chest pain was reproducible, and she's also had a cardiac catheterization and stress test. Please see her dedicated cardiology consult for their specific notation. -: Gradual Location: chest Radiation: other (chest bilateral chest wall, intermittent) Quality: aching Improves with: rest Worsens with: movement - Related Data Home Medications Medication Instructions Recorded Confirmed Last Taken Carvedilol [Coreg] 12.5 mg PO ONCE 08/03/18 08/03/18 Unknown Escitalopram [Lexapro] 10 mg PO ONCE 08/03/18 08/03/18 Unknown Fexofenadine HCl [Shelly Allergy] 180 mg PO ONCE 08/03/18 08/03/18 Unknown Omeprazole Magnesium [PriLOSEC Otc] 20 mg PO ONCE 08/03/18 08/03/18 Unknown Omeprazole Magnesium [PriLOSEC Otc] 20 mg PO ONCE 08/03/18 08/03/18 Unknown Simethicone [Gas Relief] 125 mg PO ONCE 08/03/18 08/03/18 Unknown guaiFENesin [Mucinex] 1,200 mg PO PRN 08/03/18 08/03/18 Unknown Previous Rx's Medication Instructions Recorded Last Taken Type ALBUTEROL NEB's [Proventil 0.083% 2.5 mg IH Q4HRT PRN #1 nebu 08/05/18 Unknown Rx NEBS] Arformoterol Nebu [Brovana Nebu] 15 mcg IH Q12HRT #1 ml 08/05/18 Unknown Rx AtorvaSTATin [Lipitor] 10 mg PO ONCE #30 tablet 08/05/18 Unknown Rx Budesonide [Pulmicort Respules] 0.25 mg IH Q12HRT #1 nebu 08/05/18 Unknown Rx Famotidine [Pepcid] 20 mg PO BID #60 tablet 08/05/18 Unknown Rx HYDROcodone/APAP 5-325 [[place] 1 each PO Q6H PRN #8 tablet 08/05/18 Unknown Rx 5-325 mg TAB] Montelukast [Singulair] 10 mg PO DAILY #30 tablet 08/05/18 Unknown Rx guaiFENesin ER [Mucinex ER] 600 mg PO BID #10 tablet 08/05/18 Unknown Rx levoFLOXacin [Levaquin TAB] 500 mg PO QDAY #5 tablet 08/05/18 Unknown Rx methylPREDNISolone [Medrol] 4 mg PO QAM #1 tab.ds.pk 08/05/18 Unknown Rx Levalbuterol [Xopenex] 0.63 mg IH Q4H PRN #1 box 12/04/18 Unknown Rx Albuterol Sulfate [Albuterol 0.63% 0.63 mg IH Q4HR PRN #2 ml 01/03/19 Unknown Rx NEBS] Albuterol Sulfate [Proair 90 mcg IH Q4HR PRN #2 aer.pow.ba 01/03/19 Unknown Rx Respiclick] DOXYCYCLINE Hyclate [Vibramycin] 100 mg PO Q12HR #14 capsule 01/03/19 Unknown Rx Ipratropium (Nf) [Atrovent] 2 puff IH Q6HR PRN #1 inha 01/03/19 Unknown Rx Ipratropium [Atrovent NEB] 0.5 mg IH Q4HR #2 ml 01/03/19 Unknown Rx methylPREDNISolone [Medrol 4MG 4 mg PO QDAY #1 tab.ds.pk 01/03/19 Unknown Rx DOSEPAK (21 tabs)] Allergies Allergy/AdvReac Type Severity Reaction Status Date / Time erythromycin base Allergy Unknown Verified 06/19/16 13:28 Penicillins Allergy Unknown Verified 06/19/16 16:21 ED Review of Systems ROS: Stated complaint: SOB Other details as noted in HPI Constitutional: denies: malaise ENT: congestion Respiratory: cough, shortness of breath, SOB with exertion Cardiovascular: chest pain Gastrointestinal: denies: vomiting Genitourinary: denies: dysuria Musculoskeletal: arthralgia, myalgia Skin: denies: lesions Neurological: weakness Hematological/Lymphatic: denies: easy bleeding ED Past Medical Hx - Past Medical History Previous Medical History?: Yes Hx Hypertension: Yes Hx COPD: Yes Additional medical history: "leaky heart valve" high chol - Surgical History Past Surgical History?: Yes Hx Appendectomy: Yes Additional Surgical History: hysterectomy - Social History Smoking Status: Never Smoker Substance Use Type: None - Medications Home Medications: Home Medications Medication Instructions Recorded Confirmed Last Taken Type Carvedilol [Coreg] 12.5 mg PO ONCE 08/03/18 08/03/18 Unknown History Escitalopram [Lexapro] 10 mg PO ONCE 08/03/18 08/03/18 Unknown History Fexofenadine HCl [Shelly Allergy] 180 mg PO ONCE 08/03/18 08/03/18 Unknown History Omeprazole Magnesium [PriLOSEC Otc] 20 mg PO ONCE 08/03/18 08/03/18 Unknown History Omeprazole Magnesium [PriLOSEC Otc] 20 mg PO ONCE 08/03/18 08/03/18 Unknown History Simethicone [Gas Relief] 125 mg PO ONCE 08/03/18 08/03/18 Unknown History guaiFENesin [Mucinex] 1,200 mg PO PRN 08/03/18 08/03/18 Unknown History ALBUTEROL NEB's [Proventil 0.083% 2.5 mg IH Q4HRT PRN #1 nebu 08/05/18 Unknown Rx NEBS] Arformoterol Nebu [Brovana Nebu] 15 mcg IH Q12HRT #1 ml 08/05/18 Unknown Rx AtorvaSTATin [Lipitor] 10 mg PO ONCE #30 tablet 08/05/18 Unknown Rx Budesonide [Pulmicort Respules] 0.25 mg IH Q12HRT #1 nebu 08/05/18 Unknown Rx Famotidine [Pepcid] 20 mg PO BID #60 tablet 08/05/18 Unknown Rx HYDROcodone/APAP 5-325 [[place] 1 each PO Q6H PRN #8 tablet 08/05/18 Unknown Rx 5-325 mg TAB] Montelukast [Singulair] 10 mg PO DAILY #30 tablet 08/05/18 Unknown Rx guaiFENesin ER [Mucinex ER] 600 mg PO BID #10 tablet 08/05/18 Unknown Rx levoFLOXacin [Levaquin TAB] 500 mg PO QDAY #5 tablet 08/05/18 Unknown Rx methylPREDNISolone [Medrol] 4 mg PO QAM #1 tab.ds.pk 08/05/18 Unknown Rx Levalbuterol [Xopenex] 0.63 mg IH Q4H PRN #1 box 12/04/18 Unknown Rx Albuterol Sulfate [Albuterol 0.63% 0.63 mg IH Q4HR PRN #2 ml 01/03/19 Unknown Rx NEBS] Albuterol Sulfate [Proair 90 mcg IH Q4HR PRN #2 aer.pow.ba 01/03/19 Unknown Rx Respiclick] DOXYCYCLINE Hyclate [Vibramycin] 100 mg PO Q12HR #14 capsule 01/03/19 Unknown Rx Ipratropium (Nf) [Atrovent] 2 puff IH Q6HR PRN #1 inha 01/03/19 Unknown Rx Ipratropium [Atrovent NEB] 0.5 mg IH Q4HR #2 ml 01/03/19 Unknown Rx methylPREDNISolone [Medrol 4MG 4 mg PO QDAY #1 tab.ds.pk 01/03/19 Unknown Rx DOSEPAK (21 tabs)] ED Physical Exam - General Limitations: Physical Limitation General appearance: alert, in no apparent distress - Head Head exam: Present: atraumatic, normocephalic - Eye Eye exam: Present: normal appearance, EOMI. Absent: nystagmus - ENT ENT exam: Present: normal exam, normal orophraynx, mucous membranes moist, normal external ear exam - Neck Neck exam: Present: normal inspection, full ROM. Absent: tenderness, meningismus - Respiratory Respiratory exam: Present: respiratory distress, wheezes, rales, rhonchi, chest wall tenderness, accessory muscle use - Cardiovascular Cardiovascular Exam: Present: normal rhythm, tachycardia, normal heart sounds. Absent: systolic murmur, diastolic murmur, rubs, gallop - GI/Abdominal GI/Abdominal exam: Present: soft. Absent: distended, tenderness, guarding, rebound, rigid, pulsatile mass - Extremities Exam Extremities exam: Present: normal inspection, full ROM, pedal edema, other (2+ pulses noted in the bilateral upper, lower extremities. There is no long bone tenderness. Musculoskeletal compartments are soft. The pelvis is stable.). Absent: tenderness, calf tenderness - Back Exam Back exam: Present: normal inspection. Absent: tenderness, CVA tenderness (R), CVA tenderness (L), paraspinal tenderness, vertebral tenderness - Neurological Exam Neurological exam: Present: alert, other (there is no facial droop. The tongue is midline. Extraocular movements are intact bilaterally. Patient speaking in full complete sentences. Shoulder shrug is intact bilaterally. Hearing is grossly intact bilaterally. Visual acuity intact to finger counting and color perception at a close distance. 5/5 strength 4 extremities. Sensation intact to light touch in 4 extremities.) - Psychiatric Psychiatric exam: Present: flat affect - Skin Skin exam: Present: warm, dry, intact, normal color. Absent: rash ED Course Vital Signs 01/03/19 01/03/19 01/03/19 15:14 15:27 15:30 Temperature 99.1 F Pulse Rate 103 H 97 H Pulse Rate [ Anterior Bilateral Throughout] Respiratory 22 37 H Rate Respiratory Rate [Anterior Bilateral Throughout] Blood Pressure 144/60 132/79 131/78 O2 Sat by Pulse 100 99 Oximetry 01/03/19 01/03/19 01/03/19 16:03 16:30 16:51 Temperature Pulse Rate 85 83 Pulse Rate [ 92 H Anterior Bilateral Throughout] Respiratory 23 24 Rate Respiratory 22 Rate [Anterior Bilateral Throughout] Blood Pressure 134/76 128/78 O2 Sat by Pulse 100 97 Oximetry 01/03/19 01/03/19 01/03/19 17:00 17:10 17:31 Temperature Pulse Rate 81 75 Pulse Rate [ Anterior Bilateral Throughout] Respiratory 24 20 Rate Respiratory Rate [Anterior Bilateral Throughout] Blood Pressure 140/68 117/69 O2 Sat by Pulse 99 98 99 Oximetry 01/03/19 18:00 Temperature Pulse Rate 73 Pulse Rate [ Anterior Bilateral Throughout] Respiratory 19 Rate Respiratory Rate [Anterior Bilateral Throughout] Blood Pressure 112/70 O2 Sat by Pulse 100 Oximetry - Reevaluation(s) Reevaluation #1: 01/03/19 16:04 Differential diagnosis, including not limited to: GERD, gastritis, hiatal h ernia, COPD, pneumonia, pulmonary embolism, acute coronary syndrome, costochondritis Addendum plan: 58-year-old female who has presented to this hospital multiple times in the past with chest pain, cough, shortness of breath. Chest pain is reportedly chronic, and present for multiple days. In addition, she saw her plant and maintenance technician earlier on this week. Cardiology has recently seen and evaluated this patient, and she even saw her plant and maintenance technician earlier on this week, and no additional cardiac risk stratification has been recommended. Most likely, the patient is presenting with an exacerbation of her chronic underlying COPD. She has a low-grade temperature, but otherwise has reassuring vital signs. We will treat her symptoms, obtain screening laboratory studies, and then reassess. Her age and cardiovascular risk factor profile are reviewed and appreciated, however, given cardiology's extensive documentation, and her close follow-up, it is my opinion that based off of the current data a vailable she will not benefit from accelerated cardiac risk stratification. She will be receiving albuterol, Atrovent, steroids, magnesium, acetaminophen, and Pepcid. 01/03/19 20:47 Reevaluation #2: 01/03/19 20:48 The patient is reassessed. She feels improved. She is on chronic steroids, leukocytosis is likely secondary to chronic steroids, or stress reaction. EKG i s unchanged 2. Coworker breathing is improved. The patient is suitable for discharge at this point in time with outpatient follow-up. ED Medical Decision Making - Lab Data Result diagrams: 01/03/19 17:10 01/03/19 17:10 Vital Signs 01/03/19 15:14 Temperature 99.1 F Pulse Rate 103 H Respiratory 22 Rate Blood Pressure 144/60 O2 Sat by Pulse 100 Oximetry - EKG Data -: EKG Interpreted by Ca EKG shows normal: sinus rhythm Rate: normal - EKG Data Interpretation: unchanged when compared t (08/03/2018) 01/03/19 16:04 The EKG has motion artifact. This is a sinus rhythm, rate 85 bpm, QTC 405 ms, there is a borderline leftward axis deviation, there is low voltage, there is motion artifact, the EKG is abnormal, the EKG is not consistent with ST el evation myocardial infarction. - Radiology Data Radiology results: pending, report reviewed, image reviewed X-ray the chest is negative for acute disease Critical Care Time: Yes Critical care time in (mins) excluding proc time.: 10 Critical care attestation.: If time is entered above; I have spent that time in minutes in the direct care of this critically ill patient, excluding procedure time. ED Disposition Clinical Impression: Chronic chest pain, COPD exacerbation Disposition: DC- TO HOME OR SELFCARE Is pt being admited?: No Does the pt Need Aspirin: No Condition: Stable Instructions: Chest Pain (ED), Chronic Bronchitis (ED) Additional Instructions: Take the medications as needed/directed. Follow up with her primary care doctor, plant and maintenance technician, or manager pulmonary within the next 3-5 days. Advance diet as tolerated. Take [id number] Tylenol, Pepcid, as needed for pain. Return to the emergency room right away with new, worsened or different symptoms, or symptoms not present on the initial emergency room evaluation. Referrals: SINCERE BECERRA MD [Staff Physician] - 3-5 Days MARIBEL GEORGE MD [Staff Physician] - 3-5 Days
--- NOTE | 2019-01-03 15:55 | XRay Report ---
CHEST 1 VIEW INDICATION: Chest Pain. COMPARISON: 12/04/2018. FINDINGS: Support devices: None. Heart: Stable. Lungs/Pleura: No acute pulmonary or pleural findings. Lungs remain hyperexpanded. IMPRESSION: 1. No acute findings. Signer Name: Alfredo Morgan MD Signed: 01/03/2019 3:51 PM Workstation Name: [id number]
[2019-01-03] MEDS ORDERED: NACL 0.9% 250ML 250 ML IV ONE (16:02)
[2019-01-03] MEDS ORDERED: MAGNESIUM SULFATE 2GM/50ML 2 GM/50 ML BAG IV ONE (16:02)
[2019-01-03 17:54] LABS: Hematocrit 37.2 % (30.3-42.9); Hemoglobin 12.4 gm/dl (10.1-14.3); Mean Corpuscular HGB Conc 33 % (30-34); Mean Corpuscular Volume 88 fl (79-97); Platelet Count 399 K/mm3 (140-440); Red Blood Count 4.25 M/mm3 (3.65-5.03); Red Cell Distribution Width 14.9 % (13.2-15.2)
[2019-01-03 17:55] LABS: INR 0.96 (0.87-1.13); Partial Thromboplastin Time 22.9 Sec. (24.2-36.6)
[2019-01-03 18:05] LABS: BUN/Creatinine Ratio 32; Blood Urea Nitrogen 19 mg/dL (7-17); Calcium 8.8 mg/dL (8.4-10.2); Hemolysis Index 8
[2019-01-03 18:57] LABS: Band Neutrophils # (Manual) 0.2 K/mm3; Basophils % (Manual) 0 % (0.0-1.8); Eosinophils % (Manual) 0 % (0.0-4.3); Total Cells Counted 100
[2019-01-03 18:58] LABS: RBC Morphology Normal
[2019-01-03 18:59] LABS: Platelet Estimate Consistent w Auto
--- NOTE | 2019-01-03 19:34 | Cat Scan Report ---
CTA CHEST WITH CONTRAST INDICATION / CLINICAL INFORMATION: cp sob. TECHNIQUE: Axial CT images were obtained through the chest after injection of 100 mL Omnipaque 350 IV contrast. 3 plane MIP and/or 3D reconstructions were produced. All CT scans at this location are performed usin g CT dose reduction for ALARA by means of automated exposure control. COMPARISON: None available. FINDINGS: PULMONARY ARTERIES: No pulmonary emboli. THORACIC AORTA: No significant abnormality. HEART: Mildly enlarged. No pericardial effusion. CORONARY ARTERIES: No significant calcification. MEDIASTINUM / MARGUERITE: No significant abnormality. PLEURA: No pleural effusion. No pneumothorax. LUNGS: No acute airspace disease. Chronic appearing interstitial lung disease and hyperexpansion. ADDITIONAL FINDINGS: None. UPPER ABDOMEN: No acute findings. SKELETAL STRUCTURES: Chronic appearing superior endplate depression of L1 and compression deformity o f T6. No acute osseous abnormality. IMPRESSION: 1. No CT evidence for pulmonary embolism. 2. No acute pulmonary or pleural findings. 3. Probable COPD/emphysema. Signer Name: Jair Pearce MD Signed: 01/03/2019 7:30 PM Workstation Name: [id number]
[2019-01-03] MEDS ORDERED: DUONEB *Not for PRN Use IH ONE (21:40)
[2019-01-03 22:23] VITALS: BP 109/70
== END 2019-01-03 22:23 | disposition home or self-care (01) ==
LOC: ED 15:12
DX: J44.1 Chronic obstructive pulmonary disease with (acute) exacerbation (principal); R07.9 Chest pain, unspecified; G89.29 Other chronic pain; I10 Essential (primary) hypertension; Z90.49 Acquired absence of other specified parts of digestive tract; Z88.0 Allergy status to penicillin; Z88.1 Allergy status to other antibiotic agents
CPT/HCPCS: 36415; 71045; 71275; 80048; 82550; 83735; 84443; 84484; 85007; 85025; 85379; 85610; 85730; 93005; 93010; 94640; 94644; 96365; 96375; 99285; J2930; J3475; J7050; Q9967

== ENCOUNTER 2019-02-18 10:35 | Inpatient (IN) | payer BC ==
[2019-02-18 11:11] LABS: Hematocrit 34.6 % (30.3-42.9); Hemoglobin 10.9 gm/dl (10.1-14.3); Mean Corpuscular HGB Conc 32 % (30-34); Mean Corpuscular Volume 86 fl (79-97); Platelet Count 609 K/mm3 (140-440); Red Blood Count 4.02 M/mm3 (3.65-5.03); Red Cell Distribution Width 15.2 % (13.2-15.2)
[2019-02-18 11:33] LABS: Alanine Aminotransferase 19 units/L (7-56); Albumin 4.1 g/dL (3.9-5); BUN/Creatinine Ratio 17; Blood Urea Nitrogen 10 mg/dL (7-17); Calcium 9.5 mg/dL (8.4-10.2); Hemolysis Index 17
[2019-02-18] MEDS ORDERED: SODIUM CHLORIDE 0.9% 1000 ML 1,000 ML IV ONE (11:52)
[2019-02-18] MEDS ORDERED: MEROPENEM/NS 1 GRAM/100 ML 1 GRAM/100 ML BAG IV ONE (11:52)
[2019-02-18 12:13] LABS: Hematocrit 34.6 % (30.3-42.9); Hemoglobin 10.9 gm/dl (10.1-14.3); Mean Corpuscular HGB Conc 32 % (30-34); Mean Corpuscular Volume 86 fl (79-97); Platelet Count 609 K/mm3 (140-440); Red Blood Count 4.02 M/mm3 (3.65-5.03); Red Cell Distribution Width 15.2 % (13.2-15.2)
--- NOTE | 2019-02-18 12:20 | Emergency Department Report ---
ED General Adult HPI - General Chief complaint: Urogenital-Female Stated complaint: CATALINA/BM ISSUES Time Seen by Provider: 02/18/19 11:31 Source: patient Mode of arrival: Wheelchair Limitations: No Limitations - History of Present Illness Initial comments: 61-year-old -[place]ian female patient with history of COPD(on home O2), hypertension, "leaky heart valve", and HLD presents with complaints of feces leaking from her vagina x 6 days, worsening today. Patient states her symptoms began on Friday after being constipated for a few days and straining to go to the restroom. She states she has been constipated ever since starting duloxetine for her chronic pain 2-3 weeks ago. She states she was seen by her primary care provider on Friday who performed a vaginal exam and stated that she had a hole in her vagina that connected to her rectum. Patient states that her PCP noted redness to her vaginal canal and prescribed her Flagyl and dox ycycline. Patient denies any pain since the onset of her symptoms, fever, abdominal pain, blood in her stools/melena, dysuria, or urinary frequency. She states she has history of a hysterectomy (2000) due to uterine prolapse. She denies any history of cancer area. Patient states she had 3 diarrheal episodes this evening that leak through her vagina. She also states she is having nausea and feels bloated, however continues to deny any pain. - Related Data Home Medications Medication Instructions Recorded Confirmed Last Taken Escitalopram [Lexapro] 10 mg PO ONCE 08/03/18 08/03/18 Unknown Fexofenadine HCl [Shelly Allergy] 180 mg PO ONCE 08/03/18 08/03/18 Unknown Omeprazole Magnesium [PriLOSEC Otc] 20 mg PO ONCE 08/03/18 08/03/18 Unknown Omeprazole Magnesium [PriLOSEC Otc] 20 mg PO ONCE 08/03/18 08/03/18 Unknown Simethicone [Gas Relief] 125 mg PO ONCE 08/03/18 08/03/18 Unknown carvediloL [Coreg] 12.5 mg PO ONCE 08/03/18 08/03/18 Unknown guaiFENesin [Mucinex] 1,200 mg PO PRN 08/03/18 08/03/18 Unknown Previous Rx's Medication Instructions Recorded Last Taken Type ALBUTEROL NEB's [Proventil 0.083% 2.5 mg IH Q4HRT PRN #1 nebu 08/05/18 Unknown Rx NEBS] Arformoterol Nebu [Brovana Nebu] 15 mcg IH Q12HRT #1 ml 08/05/18 Unknown Rx AtorvaSTATin 10 mg PO ONCE #30 tablet 08/05/18 Unknown Rx Budesonide [Pulmicort Respules] 0.25 mg IH Q12HRT #1 nebu 08/05/18 Unknown Rx Famotidine [Pepcid] 20 mg PO BID #60 tablet 08/05/18 Unknown Rx HYDROcodone/APAP 5-325 [[place] 1 each PO Q6H PRN #8 tablet 08/05/18 Unknown Rx 5-325 mg TAB] Montelukast [Singulair] 10 mg PO DAILY #30 tablet 08/05/18 Unknown Rx guaiFENesin ER [Mucinex ER] 600 mg PO BID #10 tablet 08/05/18 Unknown Rx levoFLOXacin [Levaquin TAB] 500 mg PO QDAY #5 tablet 08/05/18 Unknown Rx methylPREDNISolone [Medrol] 4 mg PO QAM #1 tab.ds.pk 08/05/18 Unknown Rx Levalbuterol [Xopenex] 0.63 mg IH Q4H PRN #1 box 12/04/18 Unknown Rx Albuterol Sulfate [Albuterol 0.63% 0.63 mg IH Q4HR PRN #2 ml 01/03/19 Unknown Rx NEBS] Albuterol Sulfate [Proair 90 mcg IH Q4HR PRN #2 aer.pow.ba 01/03/19 Unknown Rx Respiclick] DOXYCYCLINE Hyclate [Vibramycin] 100 mg PO Q12HR #14 capsule 01/03/19 Unknown Rx Ipratropium (Nf) [Atrovent] 2 puff IH Q6HR PRN #1 inha 01/03/19 Unknown Rx Ipratropium [Atrovent NEB] 0.5 mg IH Q4HR #2 ml 01/03/19 Unknown Rx methylPREDNISolone [Medrol 4MG 4 mg PO QDAY #1 tab.ds.pk 01/03/19 Unknown Rx DOSEPAK (21 tabs)] Allergies Allergy/AdvReac Type Severity Reaction Status Date / Time erythromycin base Allergy Unknown Verified 06/19/16 13:28 Penicillins Allergy Unknown Verified 06/19/16 16:21 ED Review of Systems ROS: Stated complaint: CATALINA/BM ISSUES Other details as noted in HPI Constitutional: denies: chills, fever Eyes: denies: eye discharge Respiratory: denies: shortness of breath Cardiovascular: denies: chest pain Gastrointestinal: nausea, diarrhea. denies: abdominal pain, vomiting, constipation, hematemesis, melena, hematochezia Genitourinary: denies: urgency, dysuria, frequency, hematuria, discharge, abnormal menses Musculoskeletal: denies: back pain Skin: denies: rash, lesions Neurological: denies: headache, weakness, paresthesias Psychiatric: denies: anxiety, depression Hematological/Lymphatic: denies: easy bleeding ED Past Medical Hx - Past Medical History Previous Medical History?: Yes Hx Hypertension: Yes Hx COPD: Yes Additional medical history: "leaky heart valve" high chol - Surgical History Hx Appendectomy: Yes Additional Surgical History: hysterectomy - Social History Smoking Status: Former Smoker Substance Use Type: None - Medications Home Medications: Home Medications Medication Instructions Recorded Confirmed Last Taken Type Escitalopram [Lexapro] 10 mg PO ONCE 08/03/18 08/03/18 Unknown History Fexofenadine HCl [Shelly Allergy] 180 mg PO ONCE 08/03/18 08/03/18 Unknown History Omeprazole Magnesium [PriLOSEC Otc] 20 mg PO ONCE 08/03/18 08/03/18 Unknown Hi story Omeprazole Magnesium [PriLOSEC Otc] 20 mg PO ONCE 08/03/18 08/03/18 Unknown History Simethicone [Gas Relief] 125 mg PO ONCE 08/03/18 08/03/18 Unknown History carvediloL [Coreg] 12.5 mg PO ONCE 08/03/18 08/03/18 Unknown History guaiFENesin [Mucinex] 1,200 mg PO PRN 08/03/18 08/03/18 Unknown History ALBUTEROL NEB's [Proventil 0.083% 2.5 mg IH Q4HRT PRN #1 nebu 08/05/18 Unknown Rx NEBS] Arformoterol Nebu [Brovana Nebu] 15 mcg IH Q12HRT #1 ml 08/05/18 Unknown Rx AtorvaSTATin 10 mg PO ONCE #30 tablet 08/05/18 Unknown Rx Budesonide [Pulmicort Respules] 0.25 mg IH Q12HRT #1 nebu 08/05/18 Unknown Rx Famotidine [Pepcid] 20 mg PO BID #60 tablet 08/05/18 Unknown Rx HYDROcodone/APAP 5-325 [[place] 1 each PO Q6H PRN #8 tablet 08/05/18 Unknown Rx 5-325 mg TAB] Montelukast [Singulair] 10 mg PO DAILY #30 tablet 08/05/18 Unknown Rx guaiFENesin ER [Mucinex ER] 600 mg PO BID #10 tablet 08/05/18 Unknown Rx levoFLOXacin [Levaquin TAB] 500 mg PO QDAY #5 tablet 08/05/18 Unknown Rx methylPREDNISolone [Medrol] 4 mg PO QAM #1 tab.ds.pk 08/05/18 Unknown Rx Levalbuterol [Xopenex] 0.63 mg IH Q4H PRN #1 box 12/04/18 Unknown Rx Albuterol Sulfate [Albuterol 0.63% 0.63 mg IH Q4HR PRN #2 ml 01/03/19 Unknown Rx NEBS] Albuterol Sulfate [Proair 90 mcg IH Q4HR PRN #2 aer.pow.ba 01/03/19 Unknown Rx Respiclick] DOXYCYCLINE Hyclate [Vibramycin] 100 mg PO Q12HR #14 capsule 01/03/19 Unknown Rx Ipratropium (Nf) [Atrovent] 2 puff IH Q6HR PRN #1 inha 01/03/19 Unknown Rx Ipratropium [Atrovent NEB] 0.5 mg IH Q4HR #2 ml 01/03/19 Unknown Rx methylPREDNISolone [Medrol 4MG 4 mg PO QDAY #1 tab.ds.pk 01/03/19 Unknown Rx DOSEPAK (21 tabs)] ED Physical Exam - General Limitations: No Limitations General appearance: alert, in no apparent distress - Head Head exam: Present: atraumatic, normocephalic - Eye Eye exam: Present: normal appearance, PERRL. Absent: scleral icterus - Neck Neck exam: Present: normal inspection - Respiratory Respiratory exam: Present: rhonchi. Absent: normal lung sounds bilaterally, respiratory distress, wheezes, rales, chest wall tenderness - Cardiovascular Cardiovascular Exam: Present: regular rate, normal rhythm - GI/Abdominal GI/Abdominal exam: Present: soft, hyperactive bowel sounds. Absent: distended, tenderness, guarding, rebound, rigid, mass - Rectal Rectal exam: Present: deferred - External exam: Present: normal external exam. Absent: erythema, swelling, lesions, lacerations, ecchymosis, bleeding Speculum exam: Present: other. Absent: normal speculum exam, erythema, vaginal discharge, vaginal bleeding, foreign body, tissue - Expanded Exam Expanded Female exam: Present: other (cervix not present; small rectal vaginal fistula noted in posterior wall of vaginal now with light brown feces actively oozing from opening; no active bleeding noted) - Extremities Exam Extremities exam: Present: normal inspection. Absent: pedal edema - Back Exam Back exam: Present: normal inspection. Absent: CVA tenderness (R), CVA tenderness (L) - Neurological Exam Neurological exam: Present: alert, oriented X3 - Psychiatric Psychiatric exam: Present: normal affect, normal mood - Skin Skin exam: Present: warm, dry, intact, normal color. Absent: rash ED Course Vital Signs 02/18/19 02/18/19 02/18/19 10:43 11:29 12:29 Temperature 98.3 F Pulse Rate 79 85 Respiratory 22 18 18 Rate Blood Pressure 148/82 Blood Pressure 133/79 123/77 [Right] O2 Sat by Pulse 100 100 100 Oximetry 02/18/19 15:02 Temperature Pulse Rate 65 Respiratory 16 Rate Blood Pressure Blood Pressure 125/74 [Right] O2 Sat by Pulse 100 Oximetry ED Medical Decision Making - Lab Data Result diagrams: 02/18/19 10:41 02/18/19 10:53 Lab Results 02/18/19 02/18/19 02/18/19 Range/Units 10:41 10:41 10:53 WBC 18.2 H 18.2 H (4.5-11.0) K/mm3 RBC 4.02 4.02 (3.65-5.03) M/mm3 Hgb 10.9 10.9 (10.1-14.3) gm/dl Hct 34.6 34.6 (30.3-42.9) % MCV 86 86 (79-97) fl MCH 27 L 27 L (28-32) pg MCHC 32 32 (30-34) % RDW 15.2 15.2 (13.2-15.2) % Plt Count 609 H 609 H (140-440) K/mm3 Add Manual Diff Complete Total Counted 100 Seg Neuts % (Manual) 81.0 H (40.0-70.0) % Band Neutrophils % 1.0 % Lymphocytes % (Manual) 12.0 L (13.4-35.0) % Reactive Lymphs % (Man) 0 % Monocytes % (Manual) 3.0 (0.0-7.3) % Eosinophils % (Manual) 0 (0.0-4.3) % Basophils % (Manual) 0 (0.0-1.8) % Metamyelocytes % 3.0 % Myelocytes % 0 % Promyelocytes % 0 % Blast Cells % 0 % Nucleated RBC % Not Reportable Seg Neutrophils # Man 14.7 H (1.8-7.7) K/mm3 Band Neutrophils # 0.2 K/mm3 Lymphocytes # (Manual) 2.2 (1.2-5.4) K/mm3 Abs React Lymphs (Man) 0.0 K/mm3 Monocytes # (Manual) 0.5 (0.0-0.8) K/mm3 Eosinophils # (Manual) 0.0 (0.0-0.4) K/mm3 Basophils # (Manual) 0.0 (0.0-0.1) K/mm3 Metamyelocytes # 0.5 K/mm3 Myelocytes # 0.0 K/mm3 Promyelocytes # 0.0 K/mm3 Blast Cells # 0.0 K/mm3 WBC Morphology Not Reportable Hypersegmented Neuts Not Reportable Hyposegmented Neuts Not Reportable Hypogranular Neuts Not Reportable Smudge Cells Not Reportable Toxic Granulation Not Reportable Toxic Vacuolation Not Reportable Dohle Bodies Not Reportable Pelger-Huet Anomaly Not Reportable Florentino Rods Not Reportable Platelet Estimate Consistent w auto Clumped Platelets Not Reportable Plt Clumps, EDTA Not Reportable Large Platelets Not Reportable Giant Platelets Not Reportable Platelet Satelliting Not Reportable Plt Morphology Comment Not Reportable RBC Morphology Not Reportable Dimorphic RBCs Not Reportable Polychromasia Not Reportable Hypochromasia Not Reportable Poikilocytosis Not Reportable Anisocytosis 1+ Microcytosis Not Reportable Macrocytosis Not Reportable Spherocytes Not Reportable Pappenheimer Bodies Not Reportable Sickle Cells Not Reportable Target Cells Not Reportable Tear Drop Cells Not Reportable Ovalocytes Not Reportable Helmet Cells Not Reportable [place] Bodies Not Reportable [place] Rings Not Reportable [place] Cells Not Reportable Bite Cells Not Reportable Crenated Cell Not Reportable Elliptocytes Not Reportable Acanthocytes (Spur) Not Reportable Rouleaux Not Reportable Hemoglobin C Crystals Not Reportable Schistocytes Not Reportable Malaria parasites Not Reportable Maykel Bodies Not Reportable Hem Pathologist Commnt No PT (12.2-14.9) Sec. INR (0.87-1.13) APTT (24.2-36.6) Sec. Sodium 146 H (137-145) mmol/L Potassium 3.8 (3.6-5.0) mmol/L Chloride 99.8 (98-107) mmol/L Carbon Dioxide 33 H (22-30) mmol/L Anion Gap 17 mmol/L BUN 10 (7-17) mg/dL Creatinine 0.6 L (0.7-1.2) mg/dL Estimated GFR > 60 ml/min BUN/Creatinine Ratio 17 % Glucose 83 (65-100) mg/dL Lactic Acid (0.7-2.0) mmol/L Calcium 9.5 (8.4-10.2) mg/dL Magnesium (1.7-2.3) mg/dL Total Bilirubin < 0.20 (0.1-1.2) mg/dL AST 18 (5-40) units/L ALT 19 (7-56) units/L Alkaline Phosphatase 62 (35-129) units/L NT-Pro-B Natriuret Pep (0-900) pg/mL Total Protein 6.9 (6.3-8.2) g/dL Albumin 4.1 (3.9-5) g/dL Albumin/Globulin Ratio 1.5 % Urine Color (Yellow) Urine Turbidity (Clear) Urine pH (5.0-7.0) Ur Specific [place] (1.003-1.030) Urine Protein (Negative) mg/dL Urine Glucose (UA) (Negative) mg/dL Urine Ketones (Negative) mg/dL Urine Blood (Negative) Urine Nitrite (Negative) Urine Bilirubin (Negative) Urine Urobilinogen (<2.0) mg/dL Ur Leukocyte Esterase (Negative) Urine WBC (Auto) (0.0-6.0) /HPF Urine RBC (Auto) (0.0-6.0) /HPF 02/18/19 02/18/19 02/18/19 Range/Units 12:03 12:03 12:03 WBC (4.5-11.0) K/mm3 RBC (3.65-5.03) M/mm3 Hgb (10.1-14.3) gm/dl Hct (30.3-42.9) % MCV (79-97) fl MCH (28-32) pg MCHC (30-34) % RDW (13.2-15.2) % Plt Count (140-440) K/mm3 Add Manual Diff Total Counted Seg Neuts % (Manual) (40.0-70.0) % Band Neutrophils % % Lymphocytes % (Manual) (13.4-35.0) % Reactive Lymphs % (Man) % Monocytes % (Manual) (0.0-7.3) % Eosinophils % (Manual) (0.0-4.3) % Basophils % (Manual) (0.0-1.8) % Metamyelocytes % % Myelocytes % % Promyelocytes % % Blast Cells % % Nucleated RBC % Seg Neutrophils # Man (1.8-7.7) K/mm3 Band Neutrophils # K/mm3 Lymphocytes # (Manual) (1.2-5.4) K/mm3 Abs React Lymphs (Man) K/mm3 Monocytes # (Manual) (0.0-0.8) K/mm3 Eosinophils # (Manual) (0.0-0.4) K/mm3 Basophils # (Manual) (0.0-0.1) K/mm3 Metamyelocytes # K/mm3 Myelocytes # K/mm3 Promyelocytes # K/mm3 Blast Cells # K/mm3 WBC Morphology Hypersegmented Neuts Hyposegmented Neuts Hypogranular Neuts Smudge Cells Toxic Granulation Toxic Vacuolation Dohle Bodies Pelger-Huet Anomaly Florentino Rods Platelet Estimate Clumped Platelets Plt Clumps, EDTA Large Platelets Giant Platelets Platelet Satelliting Plt Morphology Comment RBC Morphology Dimorphic RBCs Polychromasia Hypochromasia Poikilocytosis Anisocytosis Microcytosis Macrocytosis Spherocytes Pappenheimer Bodies Sickle Cells Target Cells Tear Drop Cells Ovalocytes Helmet Cells [place] Bodies [place] Rings Marcelo Cells Bite Cells Crenated Cell Elliptocytes Acanthocytes (Spur) Rouleaux Hemoglobin C Crystals Schistocytes Malaria parasites Maykel Bodies Hem Pathologist Commnt PT 12.7 (12.2-14.9) Sec. INR 0.96 (0.87-1.13) APTT 25.0 (24.2-36.6) Sec. Sodium (137-145) mmol/L Potassium (3.6-5.0) mmol/L Chloride (98-107) mmol/L Carbon Dioxide (22-30) mmol/L Anion Gap mmol/L BUN (7-17) mg/dL Creatinine (0.7-1.2) mg/dL Estimated GFR ml/min BUN/Creatinine Ratio % Glucose (65-100) mg/dL Lactic Acid (0.7-2.0) mmol/L Calcium (8.4-10.2) mg/dL Magnesium 2.00 (1.7-2.3) mg/dL Total Bilirubin (0.1-1.2) mg/dL AST (5-40) units/L ALT (7-56) units/L Alkaline Phosphatase (35-129) units/L NT-Pro-B Natriuret Pep 52.06 (0-900) pg/mL Total Protein (6.3-8.2) g/dL Albumin (3.9-5) g/dL Albumin/Globulin Ratio % Urine Color (Yellow) Urine Turbidity (Clear) Urine pH (5.0-7.0) Ur Specific [place] (1.003-1.030) Urine Protein (Negative) mg/dL Urine Glucose (UA) (Negative) mg/dL Urine Ketones (Negative) mg/dL Urine Blood (Negative) Urine Nitrite (Negative) Urine Bilirubin (Negative) Urine Urobilinogen (<2.0) mg/dL Ur Leukocyte Esterase (Negative) Urine WBC (Auto) (0.0-6.0) /HPF Urine RBC (Auto) (0.0-6.0) /HPF 02/18/19 02/18/19 02/18/19 Range/Units 12:09 12:19 14:17 WBC (4.5-11.0) K/mm3 RBC (3.65-5.03) M/mm3 Hgb (10.1-14.3) gm/dl Hct (30.3-42.9) % MCV (79-97) fl MCH (28-32) pg MCHC (30-34) % RDW (13.2-15.2) % Plt Count (140-440) K/mm3 Add Manual Diff Total Counted Seg Neuts % (Manual) (40.0-70.0) % Band Neutrophils % % Lymphocytes % (Manual) (13.4-35.0) % Reactive Lymphs % (Man) % Monocytes % (Manual) (0.0-7.3) % Eosinophils % (Manual) (0.0-4.3) % Basophils % (Manual) (0.0-1.8) % Metamyelocytes % % Myelocytes % % Promyelocytes % % Blast Cells % % Nucleated RBC % Seg Neutrophils # Man (1.8-7.7) K/mm3 Band Neutrophils # K/mm3 Lymphocytes # (Manual) (1.2-5.4) K/mm3 Abs React Lymphs (Man) K/mm3 Monocytes # (Manual) (0.0-0.8) K/mm3 Eosinophils # (Manual) (0.0-0.4) K/mm3 Basophils # (Manual) (0.0-0.1) K/mm3 Metamyelocytes # K/mm3 Myelocytes # K/mm3 Promyelocytes # K/mm3 Blast Cells # K/mm3 WBC Morphology Hypersegmented Neuts Hyposegmented Neuts Hypogranular Neuts Smudge Cells Toxic Granulation Toxic Vacuolation Dohle Bodies Pelger-Huet Anomaly Florentino Rods Platelet Estimate Clumped Platelets Plt Clumps, EDTA Large Platelets Giant Platelets Platelet Satelliting Plt Morphology Comment RBC Morphology Dimorphic RBCs Polychromasia Hypochromasia Poikilocytosis Anisocytosis Microcytosis Macrocytosis Spherocytes Pappenheimer Bodies Sickle Cells Target Cells Tear Drop Cells Ovalocytes Helmet Cells [place] Bodies [place] Rings [place] Cells Bite Cells Crenated Cell Elliptocytes Acanthocytes (Spur) Rouleaux Hemoglobin C Crystals Schistocytes Malaria parasites Maykel Bodies Hem Pathologist Commnt PT (12.2-14.9) Sec. INR (0.87-1.13) APTT (24.2-36.6) Sec. Sodium (137-145) mmol/L Potassium (3.6-5.0) mmol/L Chloride (98-107) mmol/L Carbon Dioxide (22-30) mmol/L Anion Gap mmol/L BUN (7-17) mg/dL Creatinine (0.7-1.2) mg/dL Estimated GFR ml/min BUN/Creatinine Ratio % Glucose (65-100) mg/dL Lactic Acid 2.60 H* 0.70 (0.7-2.0) mmol/L Calcium (8.4-10.2) mg/dL Magnesium (1.7-2.3) mg/dL Total Bilirubin (0.1-1.2) mg/dL AST (5-40) units/L ALT (7-56) units/L Alkaline Phosphatase (35-129) units/L NT-Pro-B Natriuret Pep (0-900) pg/mL Total Protein (6.3-8.2) g/dL Albumin (3.9-5) g/dL Albumin/Globulin Ratio % Urine Color Yellow (Yellow) Urine Turbidity Clear (Clear) Urine pH 6.0 (5.0-7.0) Ur Specific [place] 1.014 (1.003-1.030) Urine Protein <15 mg/dl (Negative) mg/dL Urine Glucose (UA) Neg (Negative) mg/dL Urine Ketones Neg (Negative) mg/dL Urine Blood Neg (Negative) Urine Nitrite Neg (Negative) Urine Bilirubin Neg (Negative) Urine Urobilinogen < 2.0 (<2.0) mg/dL Ur Leukocyte Esterase Tr (Negative) Urine WBC (Auto) 1.0 (0.0-6.0) /HPF Urine RBC (Auto) 3.0 (0.0-6.0) /HPF - Radiology Data CT ABDOMEN AND PELVIS WITH CONTRAST INDICATION / CLINICAL INFORMATION: MAIN: rectovaginal fistula pain rectal gastroview and omnipaque 300 100ml delayes done started 3 weeks ago. TECHNIQUE: Axial CT images were obtained through the abdomen and pelvis after 100 mL Omnipaque 300 IV contrast. Rectal Gastroview contrast was administered. All CT scans at this location are performed using CT dose reduction for ALARA by means of automated exposure control. COMPARISON: None available. FINDINGS: LOWER CHEST: No significant abnormality. LIVER: No significant abnormality. BILIARY SYSTEM: No significant abnormality. PANCREAS: No significant abnormality. SPLEEN: No significant abnormality. ADRENALS: No significant abnormality. KIDNEYS and URETERS: No significant abnormality. STOMACH / BOWEL: Scattered colonic diverticula. There is circumferential wall thickening and adjacent strandy change involving the sigmoid colon with evidence of a fistulo us communication to the vagina as described below. PERITONEUM: No free fluid. No free air. No fluid collection. LYMPH NODES: No significant adenopathy. VASCULAR STRUCTURES: No significant abnormality. URINARY BLADDER: No significant abnormality. REPRODUCTIVE ORGANS: The uterus is absent. There is soft tissue stranding within internal dot of air adjacent to the vaginal apex. Rectally administered contrast extends into this area of soft tissue stranding, with contrast then seen extending throughout the vagina. The fistulous connection likely arises from the distal sigmoid colon (series 602, image 73). ADDITIONAL FINDINGS: None. SKELETAL SYSTEM: Mild age-indeterminate compression deformity of the L1 vertebral body. IMPRESSION: 1. Fistulous connection seen extending from the distal sigmoid colon to the vaginal cuff as described above. There is associated wall thickening and mild inflammatory change between the sigmoid colon and vaginal cuff, likely sequela of prior diverticulitis. 2. Mild age-indeterminate compression deformity of the L1 vertebral body. - Medical Decision Making 61-year-old -[place] female patient with history of COPD(on home O2), hypertension, "leaky heart valve", and HLD presents with complaints of feces leaking from her vagina x 6 days, worsening today. She currently on Doxy and Flagyl veer herpes CP since Friday of this week. He denies any abdominal pain, vaginal pain, or fever. WBCs = 18 with left shift. Patient is known to have chronic leukocytosis due to chronic prednisone use. Initial lactic acid = 2.6, now 0.70 on repeat. Labs otherwise are without significant abnormalities. CT a bdomen with rectal contrast shows positive sigmoid colon fistula into the vaginal canal possibly due to diverticulitis. Vitals are WNL. Patient given dose of meropenem and 1 L bolus. Discussed patient with Dr. Ghosh, hospitaliststates will admit for further workup and evaluation. Critical care attestation.: If time is entered above; I have spent that time in minutes in the direct care of this critically ill patient, excluding procedure time. ED Disposition Clinical Impression: Colovaginal fistula Leukocytosis Qualifiers: Leukocytosis type: other Qualified Code(s): D72.828 - Other elevated white blood cell count Diverticulitis large intestine Qualifiers: Diverticulitis bleeding: without bleeding Diverticulitis complication: without perforation or abscess Qualified Code(s): K57.32 - Diverticulitis of large intestine without perforation or abscess without bleeding Disposition: DC-09 OP ADMIT IP TO THIS HOSP Is pt being admited?: No Condition: Stable
[2019-02-18 12:38] LABS: Bilirubin,Urine NEG (Negative); Blood,Urine NEG (Negative); Color,Urine Yellow (Yellow); Protein,Urine <15 mg/dL mg/dL (Negative); Urobilinogen,Urine < 2.0 mg/dL (<2.0)
[2019-02-18 12:53] LABS: INR 0.96 (0.87-1.13)
[2019-02-18 12:57] LABS: Anisocytosis 1+; Band Neutrophils # (Manual) 0.2 K/mm3; Basophils % (Manual) 0 % (0.0-1.8); Eosinophils % (Manual) 0 % (0.0-4.3); Platelet Estimate Consistent w Auto; Total Cells Counted 100
--- NOTE | 2019-02-18 14:59 | Cat Scan Report ---
CT ABDOMEN AND PELVIS WITH CONTRAST INDICATION / CLINICAL INFORMATION: MAIN: rectovaginal fistula pain rectal gastroview and omnipaque 300 100ml delayes done started 3 weeks ago. TECHNIQUE: Axial CT images were obtained through the abdomen and pelvis after 100 mL Omnipaque 300 IV contrast. Rectal Gastroview contrast was administered. All CT scans at this location are performed using CT dos e reduction for ALARA by means of automated exposure control. COMPARISON: None available. FINDINGS: LOWER CHEST: No significant abnormality. LIVER: No significant abnormality. BILIARY SYSTEM: No significant abnormality. PANCREAS: No significant abnormality. SPLEEN: No significant abnormality. ADRENALS: No significant abnormality. KIDNEYS and URETERS: No significant abnormality. STOMACH / BOWEL: Scattered colonic diverticula. There is circumferential wall thickening and adjacent strandy change involving the sigmoid colon with evidence of a fistulous communication to the vagina as described below. PERITONEUM: No free fluid. No free air. No fluid collection. LYMPH NODES: No significant adenopathy. VASCULAR STRUCTURES: No significant abnormality. URINARY BLADDER: No significant abnormality. REPRODUCTIVE ORGANS: The uterus is absent. There is soft tissue stranding within internal dot of air adjacent to the vaginal apex. Rectally administered contrast extends into this area of soft tissue st randing, with contrast then seen extending throughout the vagina. The fistulous connection likely rodolfo ses from the distal sigmoid colon (series 602, image 73). ADDITIONAL FINDINGS: None. SKELETAL SYSTEM: Mild age-indeterminate compression deformity of the L1 vertebral body. IMPRESSION: 1. Fistulous connection seen extending from the distal sigmoid colon to the vaginal cuff as described above. There is associated wall thickening and mild inflammatory change between the sigmoid colon a nd vaginal cuff, likely sequela of prior diverticulitis. 2. Mild age-indeterminate compression deformity of the L1 vertebral body. Signer Name: Yi Santiago MD Signed: 02/18/2019 2:55 PM Workstation Name: [id number]
--- NOTE | 2019-02-18 15:04 | History and Physical Report ---
History of Present Illness Chief complaint: I got poop coming out of my vagina History of present illness: 58 YO Female with COPD, Chronic Respiratory Failure on Home Oxygen 4L/min via NC, Pulmonary HTN, HLD, Systolic CHF, Valvular Heart Disease presents to ED for evaluation. Pt states that she has experienced abdominal discomfort over the past week, as well as feces leaking from her vagina over the past 6 days with progressively worsening symptoms over the same time frame. Pt was seen and evaluated by her PCP and was treated with oral antibiotic therapy without improvement in symptoms. Pt transported to [facility] via private vehicle. Pt seen and evaluated in ED and found to have SIRS secondary to Diverticulitis with suspected perforation complicated by formation of colovaginal fistula. Pt denies fever, chills, CP, Palpitations, NVD, Trauma, BRBPR, Productive cough, shortness of breath, skin rash, or recent ill contacts. Pt also denies history of Inflammatory Bowel Disease, GI cancer. Prior admission on 08/03/18 reviewed. All listed medication reconciled at time of admission. ORTHOPEDIC DENTIST service, Pulmonary Service, Cardiology, as well as [facility] Surgery services consulted. Pt admitted to surgical floor, and initiated on IV antibiotic therapy. Past History Past Medical History: other (see hpi) Past Surgical History: hysterectomy Social history: , lives with family. denies: smoking, alcohol abuse, prescription drug abuse Family history: CAD, hypertension Medications and Allergies Allergies Allergy/AdvReac Type Severity Reaction Status Date / Time erythromycin base Allergy Unknown Verified 06/19/16 13:28 Penicillins Allergy Unknown Verified 06/19/16 16:21 Home Medications Medication Instructions Recorded Confirmed Last Taken Type Escitalopram [Lexapro] 10 mg PO ONCE 08/03/18 08/03/18 Unknown History Fexofenadine HCl [Shelly Allergy] 180 mg PO ONCE 08/03/18 08/03/18 Unknown History Omeprazole Magnesium [PriLOSEC Otc] 20 mg PO ONCE 08/03/18 08/03/18 Unknown History Omeprazole Magnesium [PriLOSEC Otc] 20 mg PO ONCE 08/03/18 08/03/18 Unknown History Simethicone [Gas Relief] 125 mg PO ONCE 08/03/18 08/03/18 Unknown History carvediloL [Coreg] 12.5 mg PO ONCE 08/03/18 08/03/18 Unknown History guaiFENesin [Mucinex] 1,200 mg PO PRN 08/03/18 08/03/18 Unknown History ALBUTEROL NEB's [Proventil 0.083% 2.5 mg IH Q4HRT PRN #1 nebu 08/05/18 Unknown Rx NEBS] Arformoterol Nebu [Brovana Nebu] 15 mcg IH Q12HRT #1 ml 08/05/18 Unknown Rx AtorvaSTATin 10 mg PO ONCE #30 tablet 08/05/18 Unknown Rx Budesonide [Pulmicort Respules] 0.25 mg IH Q12HRT #1 nebu 08/05/18 Unknown Rx Famotidine [Pepcid] 20 mg PO BID #60 tablet 08/05/18 Unknown Rx HYDROcodone/APAP 5-325 [[place] 1 each PO Q6H PRN #8 tablet 08/05/18 Unknown Rx 5-325 mg TAB] Montelukast [Singulair] 10 mg PO DAILY #30 tablet 08/05/18 Unknown Rx guaiFENesin ER [Mucinex ER] 600 mg PO BID #10 tablet 08/05/18 Unknown Rx levoFLOXacin [Levaquin TAB] 500 mg PO QDAY #5 tablet 08/05/18 Unknown Rx methylPREDNISolone [Medrol] 4 mg PO QAM #1 tab.ds.pk 08/05/18 Unknown Rx Levalbuterol [Xopenex] 0.63 mg IH Q4H PRN #1 box 12/04/18 Unknown Rx Albuterol Sulfate [Albuterol 0.63% 0.63 mg IH Q4HR PRN #2 ml 01/03/19 Unknown Rx NEBS] Albuterol Sulfate [Proair 90 mcg IH Q4HR PRN #2 aer.pow.ba 01/03/19 Unknown Rx Respiclick] DOXYCYCLINE Hyclate [Vibramycin] 100 mg PO Q12HR #14 capsule 01/03/19 Unknown Rx Ipratropium (Nf) [Atrovent] 2 puff IH Q6HR PRN #1 inha 01/03/19 Unknown Rx Ipratropium [Atrovent NEB] 0.5 mg IH Q4HR #2 ml 01/03/19 Unknown Rx methylPREDNISolone [Medrol 4MG 4 mg PO QDAY #1 tab.ds.pk 01/03/19 Unknown Rx DOSEPAK (21 tabs)] Active Meds: Active Medications Sodium Chloride (Nacl 0.9% 1000 Ml) 1,000 mls @ 125 mls/hr IV ONCE ONE Stop: 02/18/19 19:51 Last Admin: 02/18/19 12:28 Dose: 125 mls/hr Documented by: Review of Systems Constitutional: other (feces leaking out of vagina), no weight loss, no weight gain, no fever, no chills Ears, nose, mouth and throat: no ear pain, no ear discharge, no tinnitis, no decreased hearing, no nasal congestion Breasts: no change in shape, no swelling, no mass Cardiovascular: no chest pain, no orthopnea, no palpitations, no rapid/irregular heart beat, no edema Respiratory: no cough, no cough with sputum, no excessive sputum, no hemoptysis, no shortness of breath Gastrointestinal: other (adbominal discomfort), no abdominal pain, no nausea, no vomiting, no diarrhea Genitourinary Female: no pelvic pain, no flank pain, no menorrhagia, no dysuria Rectal: no pain, no incontinence, no bleeding Musculoskeletal: no neck stiffness, no neck pain, no shooting arm pain, no low back pain, no shooting leg pain, no leg numbness/tingling Integumentary: no rash, no pruritis, no redness, no sores, no jaundice, no boils Neurological: no paralysis, no weakness, no parathesias, no numbness, no tingling, no seizures Psychiatric: no anxiety, no memory loss, no change in sleep habits, no sleep disturbances, no insomnia, no change in appetite, no change in libido, no suicidal ideation Endocrine: no cold intolerance, no heat intolerance, no polyphagia, no excessive thirst, no polydipsia, no excessive sweating Hematologic/Lymphatic: no easy bruising, no easy bleeding, no lymphadenopathy, no lymphedema Allergic/Immunologic: no urticaria, no allergic rhinitis, no persistent infections, no anaphylaxis, no angioedema Exam - Constitutional Vitals: Temp Pulse Resp BP Pulse Ox 98.3 F 65 16 125/74 100 02/18/19 10:43 02/18/19 15:02 02/18/19 15:02 02/18/19 15:02 02/18/19 15:02 General appearance: Present: mild distress - EENT Eyes: Present: PERRL ENT: hearing intact, clear oral mucosa - Neck Neck: Present: supple, normal ROM - Respiratory Respiratory effort: normal Respiratory: bilateral: diminished - Cardiovascular Heart Sounds: Present: S1 & S2. Absent: rub, click - Extremities Extremities: pulses symmetrical, No edema Peripheral Pulses: within normal limits - Abdominal General gastrointestinal: Present: soft, non-tender, non-distended, normal bowel sounds Female genitourinary: Present: normal - Rectal Rectal Exam: normal exam-external/orifice, stool brown - Integumentary Integumentary: Present: clear, warm, dry - Musculoskeletal Musculoskeletal: gait normal, strength equal bilaterally - Psychiatric Psychiatric: appropriate mood/affect, intact judgment & insight - Neurologic Neurologic: CNII-XII intact, moves all extremities Results - Labs CBC & Chem 7: 02/18/19 10:41 02/18/19 10:53 Labs: Abnormal lab results 02/18/19 02/18/19 02/18/19 Range/Units 10:41 10:41 10:53 WBC 18.2 H 18.2 H (4.5-11.0) K/mm3 MCH 27 L 27 L (28-32) pg Plt Count 609 H 609 H (140-440) K/mm3 Seg Neuts % (Manual) 81.0 H (40.0-70.0) % Lymphocytes % (Manual) 12.0 L (13.4-35.0) % Seg Neutrophils # Man 14.7 H (1.8-7.7) K/mm3 Sodium 146 H (137-145) mmol/L Carbon Dioxide 33 H (22-30) mmol/L Creatinine 0.6 L (0.7-1.2) mg/dL Lactic Acid (0.7-2.0) mmol/L 02/18/19 Range/Units 12:19 WBC (4.5-11.0) K/mm3 MCH (28-32) pg Plt Count (140-440) K/mm3 Seg Neuts % (Manual) (40.0-70.0) % Lymphocytes % (Manual) (13.4-35.0) % Seg Neutrophils # Man (1.8-7.7) K/mm3 Sodium (137-145) mmol/L Carbon Dioxide (22-30) mmol/L Creatinine (0.7-1.2) mg/dL Lactic Acid 2.60 H* (0.7-2.0) mmol/L Assessment and Plan - Patient Problems (1) CHF (congestive heart failure) Current Visit: Yes Status: Acute Qualifiers: Heart failure type: systolic Plan to address problem: Cardiology consulted in ED, BNP, Chest x ray, diuresis, afterload reduction, monitor uop q shift, daily weight, supplemental oxygen, (2) SIRS (systemic inflammatory response syndrome) Current Visit: Yes Status: Acute Plan to address problem: CBC, CMP, Urinalysis, chext x ray, Iv antibiotic therapy (3) Diverticulitis large intestine Current Visit: Yes Status: Acute Qualifiers: Diverticulitis complication: unspecified complication status Plan to address problem: Diverticulitis with Fistula formation: IV antibiotic therapy, IVF resuscitation therapy, CT Abdomen/Pelvis, CBC, CMP, serial abdominal exam, Surgery team consulted, GI team consulted, as well as ORTHOPEDIC DENTIST team. (4) Chronic hypercapnic respiratory failure Current Visit: No Status: Acute Plan to address problem: Supplemental oxygen, nebulizer therapy, IV steroid therapy, pulse oximetry, Chest x ray, NIPPV as clinically indicated. Pulmonary team consulted in ED. (5) HTN (hypertension) Current Visit: Yes Status: Acute Qualifiers: Hypertension type: essential hypertension Qualified Code(s): I10 - Essential (primary) hypertension Plan to address problem: Monitor bp q shift, continue medical management (6) HLD (hyperlipidemia) Current Visit: Yes Status: Acute Qualifiers: Hyperlipidemia type: mixed hyperlipidemia Qualified Code(s): E78.2 - Mixed hyperlipidemia Plan to address problem: balanced diet, low cholesterol diet, (7) DVT prophylaxis Current Visit: No Status: Acute Plan to address problem: SCD to BLE while in bed, PT ambulatory
[2019-02-18] MEDS ORDERED: ALBUTEROL 2.5 MG/3 ML NEBU IH PRN (15:05)
[2019-02-18] MEDS ORDERED: ONDANSETRON 4 MG/2 ML INJ IV PRN (15:05)
[2019-02-18] MEDS ORDERED: ACETAMINOPHEN 325 MG TAB PO PRN (15:05)
[2019-02-18] MEDS ORDERED: GUAIFENESIN 1200 MG PO SCH (15:15)
[2019-02-18] MEDS ORDERED: SIMETHICONE 125 MG PO SCH (15:15)
[2019-02-18] MEDS ORDERED: NON-FORMULARY EACH (Omeprazole Magnesium [Prilosec Otc] 20 MG) PO SCH (15:15)
[2019-02-18] MEDS ORDERED: [UNRECOGNIZED DRUG - REMARK] PO SCH (15:15)
[2019-02-18] MEDS ORDERED: ESCITALOPRAM 10 MG TAB PO SCH (16:00)
[2019-02-18] MEDS ORDERED: carvediloL 12.5 MG TAB PO SCH (16:00)
[2019-02-18] MEDS ORDERED: PANTOPRAZOLE 20 MG TAB PO ONE (16:00)
[2019-02-18] MEDS ORDERED: IPRATROPIUM 0.02% NEBU 2.5 ML IH SCH (16:00)
[2019-02-18] MEDS ORDERED: LORATADINE (NF) 10 MG TAB PO ONE (16:00)
[2019-02-18] MEDS: metroNIDAZOLE/NS 500 MG/100 ML 500 MG/100 ML BAG IV SCH (18:32)
[2019-02-18] MEDS ORDERED: BUDESONIDE 0.25 MG/2 ML NEBU IH SCH (20:00)
[2019-02-18] MEDS: ARFORMOTEROL 15 MCG/2 ML NEBU IH SCH (21:51)
[2019-02-18] MEDS: IPRATROPIUM 0.02% NEBU 2.5 ML IH SCH (21:52)
[2019-02-18] MEDS: guaiFENesin ER 600 MG TAB PO SCH (22:04)
[2019-02-18] MEDS: FAMOTIDINE 20 MG TAB PO SCH (22:04)
[2019-02-18] MEDS: BUDESONIDE 0.25 MG/2 ML NEBU IH SCH (22:05)
[2019-02-19] MEDS: metroNIDAZOLE/NS 500 MG/100 ML 500 MG/100 ML BAG IV SCH ×3 (00:59→15:35)
[2019-02-19] MEDS: MORPHINE 2 MG/1 ML INJ IV PRN ×3 (01:55→20:38)
[2019-02-19] MEDS: IPRATROPIUM 0.02% NEBU 2.5 ML IH SCH ×4 (02:48→22:36)
[2019-02-19 06:45] LABS: Hematocrit 31.4 % (30.3-42.9); Hemoglobin 9.8 gm/dl (10.1-14.3); Mean Corpuscular HGB Conc 31 % (30-34); Mean Corpuscular Volume 87 fl (79-97); Platelet Count 561 K/mm3 (140-440); Red Blood Count 3.62 M/mm3 (3.65-5.03); Red Cell Distribution Width 15.2 % (13.2-15.2)
[2019-02-19 07:02] LABS: Alanine Aminotransferase 14 units/L (7-56); Albumin 3.2 g/dL (3.9-5); BUN/Creatinine Ratio 17; Blood Urea Nitrogen 10 mg/dL (7-17); Calcium 8.6 mg/dL (8.4-10.2); Hemolysis Index 2
--- NOTE | 2019-02-19 08:37 | Progress Note ---
Objective Vital Signs - 12hr 02/18/19 02/18/19 02/19/19 21:54 23:41 03:00 Temperature 98.2 F Pulse Rate 87 Pulse Rate [ 90 Bilateral Throughout] Respiratory 18 Rate Respiratory 20 Rate [Bilateral Throughout] Blood Pressure 101/66 O2 Sat by Pulse 94 98 Oximetry 02/19/19 04:02 Temperature 98.0 F Pulse Rate 74 Pulse Rate [ Bilateral Throughout] Respiratory 18 Rate Respiratory Rate [Bilateral Throughout] Blood Pressure 106/47 O2 Sat by Pulse 96 Oximetry CBC and BMP: 02/19/19 05:52 02/19/19 05:52 ABG, PT/INR, D-dimer: PT/INR, D-dimer PT 12.7 Sec. (12.2-14.9) 02/18/19 12:03 INR 0.96 (0.87-1.13) 02/18/19 12:03 Abnormal lab findings: Abnormal Labs 02/18/19 02/18/19 02/18/19 10:41 10:41 10:53 WBC 18.2 H 18.2 H RBC Hgb MCH 27 L 27 L Plt Count 609 H 609 H Seg Neuts % (Manual) 81.0 H Lymphocytes % (Manual) 12.0 L Seg Neutrophils # Man 14.7 H Sodium 146 H Potassium Carbon Dioxide 33 H Creatinine 0.6 L Lactic Acid Total Protein Albumin 02/18/19 02/19/19 02/19/19 12:19 05:52 05:52 WBC 14.2 H RBC 3.62 L Hgb 9.8 L MCH 27 L Plt Count 561 H Seg Neuts % (Manual) Lymphocytes % (Manual) Seg Neutrophils # Man Sodium 146 H Potassium 3.4 L Carbon Dioxide 34 H Creatinine 0.6 L Lactic Acid 2.60 H* Total Protein 5.5 L D Albumin 3.2 L
[2019-02-19] MEDS: ARFORMOTEROL 15 MCG/2 ML NEBU IH SCH ×2 (08:58→22:36)
[2019-02-19] MEDS: BUDESONIDE 0.5 MG/2 ML NEBU IH SCH ×2 (08:58→22:36)
[2019-02-19] MEDS: BUDESONIDE 0.25 MG/2 ML NEBU IH SCH (08:59)
[2019-02-19] MEDS: FAMOTIDINE 20 MG TAB PO SCH ×2 (09:28→22:20)
[2019-02-19] MEDS: MONTELUKAST 10 MG TAB PO SCH (09:28)
[2019-02-19] MEDS: guaiFENesin ER 600 MG TAB PO SCH ×2 (09:28→22:20)
--- NOTE | 2019-02-19 09:52 | Consultation ---
History of Present Illness Consult date: 02/19/19 Consult reason: other (preop eval) History of present illness: Impression Pt known to our practice (Dr. 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 Above co-morbidities will put her at increased risk for resp failure. Past History Past Medical History: COPD, hypertension (Non-ischemic CMP), other (see hpi) Past Surgical History: hysterectomy Social history: , lives with family. denies: smoking, alcohol abuse, prescription drug abuse Family history: CAD, hypertension Medications and Allergies Allergies Allergy/AdvReac Type Severity Reaction Status Date / Time erythromycin base Allergy Unknown Verified 06/19/16 13:28 Penicillins Allergy Unknown Verified 06/19/16 16:21 Home Medications Medication Instructions Recorded Confirmed Last Taken Type Escitalopram [Lexapro] 10 mg PO ONCE 08/03/18 02/18/19 Unknown History Fexofenadine HCl [Shelly Allergy] 180 mg PO ONCE 08/03/18 02/18/19 Unknown Hist ory Omeprazole Magnesium [PriLOSEC Otc] 20 mg PO ONCE 08/03/18 02/18/19 Unknown History Omeprazole Magnesium [PriLOSEC Otc] 20 mg PO ONCE 08/03/18 02/18/19 Unknown History Simethicone [Gas Relief] 125 mg PO ONCE 08/03/18 02/18/19 Unknown History carvediloL [Coreg] 12.5 mg PO ONCE 08/03/18 02/18/19 Unknown History guaiFENesin [Mucinex] 1,200 mg PO PRN 08/03/18 02/18/19 Unknown History ALBUTEROL NEB's [Proventil 0.083% 2.5 mg IH Q4HRT PRN #1 nebu 08/05/18 02/18/19 Unknown Rx NEBS] Arformoterol Nebu [Brovana Nebu] 15 mcg IH Q12HRT #1 ml 08/05/18 02/18/19 Unknown Rx AtorvaSTATin 10 mg PO ONCE #30 tablet 08/05/18 02/18/19 Unknown Rx Budesonide [Pulmicort Respules] 0.25 mg IH Q12HRT #1 nebu 08/05/18 02/18/19 Unknown Rx Famotidine [Pepcid] 20 mg PO BID #60 tablet 08/05/18 02/18/19 Unknown Rx HYDROcodone/APAP 5-325 [[place] 1 each PO Q6H PRN #8 tablet 08/05/18 02/18/19 Unknown Rx 5-325 mg TAB] Montelukast [Singulair] 10 mg PO DAILY #30 tablet 08/05/18 02/18/19 Unknown Rx guaiFENesin ER [Mucinex ER] 600 mg PO BID #10 tablet 08/05/18 02/18/19 Unknown Rx levoFLOXacin [Levaquin TAB] 500 mg PO QDAY #5 tablet 08/05/18 02/18/19 Unknown Rx methylPREDNISolone [Medrol] 4 mg PO QAM #1 tab.ds.pk 08/05/18 02/18/19 Unknown Rx Levalbuterol [Xopenex] 0.63 mg IH Q4H PRN #1 box 12/04/18 02/18/19 Unknown Rx Albuterol Sulfate [Albuterol 0.63% 0.63 mg IH Q4HR PRN #2 ml 01/03/19 02/18/19 Unknown Rx NEBS] Albuterol Sulfate [Proair 90 mcg IH Q4HR PRN #2 aer.pow.ba 01/03/19 02/18/19 Unknown Rx Respiclick] DOXYCYCLINE Hyclate [Vibramycin] 100 mg PO Q12HR #14 capsule 01/03/19 02/18/19 Unknown Rx Ipratropium (Nf) [Atrovent] 2 puff IH Q6HR PRN #1 inha 01/03/19 02/18/19 Unknown Rx Ipratropium [Atrovent NEB] 0.5 mg IH Q4HR #2 ml 01/03/19 02/18/19 Unknown Rx methylPREDNISolone [Medrol 4MG 4 mg PO QDAY #1 tab.ds.pk 01/03/19 02/18/19 Unknown Rx DOSEPAK (21 tabs)] Active Meds: Active Medications Acetaminophen (Tylenol) 650 mg PO Q4H PRN PRN Reason: Pain MILD(1-3)/Fever >100.5/TOVAR Albuterol (Proventil) 2.5 mg IH Q4HRT PRN PRN Reason: Shortness Of Breath Arformoterol Tartrate (Brovana Nebu) 15 mcg IH Q12HRT [facility] Last Admin: 02/19/19 08:58 Dose: 15 mcg Documented by: Atorvastatin Calcium (Atorvastatin) 10 mg PO ONCE [facility] Budesonide (Pulmicort) 0.5 mg IH Q12HRT [facility] Last Admin: 02/19/19 08:58 Dose: 0.5 mg Documented by: Famotidine (Pepcid) 20 mg PO BID [facility] Last Admin: 02/19/19 09:28 Dose: 20 mg Documented by: Guaifenesin (Mucinex Er) 600 mg PO BID [facility] Last Admin: 02/19/19 09:28 Dose: 600 mg Documented by: Levofloxacin/Dextrose (Levaquin 500mg/100ml) 500 mg in 100 mls @ 100 mls/hr IV Q24H [facility]; Protocol Last Admin: 02/18/19 17:08 Dose: 100 mls/hr Documented by: Metronidazole (Flagyl 500 Mg/100 Ml) 500 mg in 100 mls @ 100 mls/hr IV Q8H [facility]; Protocol Last Admin: 02/19/19 09:28 Dose: 100 mls/hr Documented by: Ipratropium [place] (Atrovent) 0.5 mg IH Q6HRT [facility] Last Admin: 02/19/19 08:58 Dose: 0.5 mg Documented by: Montelukast Sodium (Singulair) 10 mg PO DAILY [facility] Last Admin: 02/19/19 09:28 Dose: 10 mg Documented by: Morphine Sulfate (Morphine) 2 mg IV Q4H PRN PRN Reason: Pain, Moderate (4-6) Last Admin: 02/19/19 01:55 Dose: 2 mg Documented by: Ondansetron HCl (Zofran) 4 mg IV Q8H PRN PRN Reason: Nausea And Vomiting Sodium Chloride (Sodium Chloride Flush Syringe 10 Ml) 10 ml IV BID [facility] Last Admin: 02/19/19 09:29 Dose: 10 ml Documented by: Sodium Chloride (Sodium Chloride Flush Syringe 10 Ml) 10 ml IV PRN PRN PRN Reason: LINE FLUSH Review of Systems All systems: negative (as stated in impression, poor exercise tolerance) Physical Examination Vital Signs Temp Pulse Resp BP Pulse Ox 98.3 F 79 22 148/82 100 02/18/19 10:43 02/18/19 10:43 02/18/19 10:43 02/18/19 10:43 02/18/19 10:43 General appearance: no acute distress HEENT: Positive: PERRL, EOMI Neck: Positive: neck supple Cardiac: Positive: Reg Rate and Rhythm, S1/S2 Lungs: Positive: No Wheeze, Rales, Rhonchi Neuro: Positive: Grossly Intact Results 02/19/19 05:52 02/19/19 05:52 Cardiac Enzymes 02/18/19 02/19/19 Range/Units 10:53 05:52 AST 18 13 (5-40) units/L Coagulation 02/18/19 Range/Units 12:03 PT 12.7 (12.2-14.9) Sec. INR 0.96 (0.87-1.13) APTT 25.0 (24.2-36.6) Sec. CBC 02/18/19 02/18/19 02/19/19 Range/Units 10:41 10:41 05:52 WBC 18.2 H 18.2 H 14.2 H (4.5-11.0) K/mm3 RBC 4.02 4.02 3.62 L (3.65-5.03) M/mm3 Hgb 10.9 10.9 9.8 L (10.1-14.3) gm/dl Hct 34.6 34.6 31.4 (30.3-42.9) % Plt Count 609 H 609 H 561 H (140-440) K/mm3 Comprehensive Metabolic Panel 02/18/19 02/19/19 Range/Units 10:53 05:52 Sodium 146 H 146 H (137-145) mmol/L Potassium 3.8 3.4 L (3.6-5.0) mmol/L Chloride 99.8 101.9 (98-107) mmol/L Carbon Dioxide 33 H 34 H (22-30) mmol/L BUN 10 10 (7-17) mg/dL Creatinine 0.6 L 0.6 L (0.7-1.2) mg/dL Glucose 83 79 (65-100) mg/dL Calcium 9.5 8.6 (8.4-10.2) mg/dL AST 18 13 (5-40) units/L ALT 19 14 (7-56) units/L Alkaline Phosphatase 62 49 (35-129) units/L Total Protein 6.9 5.5 L D (6.3-8.2) g/dL Albumin 4.1 3.2 L (3.9-5) g/dL
--- NOTE | 2019-02-19 10:31 | Consultation ---
History of Present Illness Reason for consult: dyspnea, COPD History of present illness: This is a patient with hx of copd w chronic resp failure w hypoxia on home o2 who comes w sob andstool via vagina. she was found to have a vaginal fistula She reports sob w excertion. She reports that she just started to smoke again. No nausea or vomiting No hemoptysis or cough reported Past History Past Medical History: COPD, hypertension (Non-ischemic CMP), other (use home o2) Past Surgical History: hysterectomy Social history: , lives with family, smoking, other (use home o2). denies: alcohol abuse, prescription drug abuse Family history: CAD, hypertension Medications and Allergies Allergies Allergy/AdvReac Type Severity Reaction Status Date / Time erythromycin base Allergy Unknown Verified 06/19/16 13:28 Penicillins Allergy Unknown Verified 06/19/16 16:21 Home Medications Medication Instructions Recorded Confirmed Last Taken Type Escitalopram [Lexapro] 10 mg PO ONCE 08/03/18 02/18/19 Unknown History Fexofenadine HCl [Shelly Allergy] 180 mg PO ONCE 08/03/18 02/18/19 Unknown History Omeprazole Magnesium [PriLOSEC Otc] 20 mg PO ONCE 08/03/18 02/18/19 Unknown History Omeprazole Magnesium [PriLOSEC Otc] 20 mg PO ONCE 08/03/18 02/18/19 Unknown History Simethicone [Gas Relief] 125 mg PO ONCE 08/03/18 02/18/19 Unknown History carvediloL [Coreg] 12.5 mg PO ONCE 08/03/18 02/18/19 Unknown History guaiFENesin [Mucinex] 1,200 mg PO PRN 08/03/18 02/18/19 Unknown History ALBUTEROL NEB's [Proventil 0.083% 2.5 mg IH Q4HRT PRN #1 nebu 08/05/18 02/18/19 Unknown Rx NEBS] Arformoterol Nebu [Brovana Nebu] 15 mcg IH Q12HRT #1 ml 08/05/18 02/18/19 Unknown Rx AtorvaSTATin 10 mg PO ONCE #30 tablet 08/05/18 02/18/19 Unknown Rx Budesonide [Pulmicort Respules] 0.25 mg IH Q12HRT #1 nebu 08/05/18 02/18/19 Unknown Rx Famotidine [Pepcid] 20 mg PO BID #60 tablet 08/05/18 02/18/19 Unknown Rx HYDROcodone/APAP 5-325 [[place] 1 each PO Q6H PRN #8 tablet 08/05/18 02/18/19 Unknown Rx 5-325 mg TAB] Montelukast [Singulair] 10 mg PO DAILY #30 tablet 08/05/18 02/18/19 Unknown Rx guaiFENesin ER [Mucinex ER] 600 mg PO BID #10 tablet 08/05/18 02/18/19 Unknown Rx levoFLOXacin [Levaquin TAB] 500 mg PO QDAY #5 tablet 08/05/18 02/18/19 Unknown Rx methylPREDNISolone [Medrol] 4 mg PO QAM #1 tab.ds.pk 08/05/18 02/18/19 Unknown Rx Levalbuterol [Xopenex] 0.63 mg IH Q4H PRN #1 box 12/04/18 02/18/19 Unknown Rx Albuterol Sulfate [Albuterol 0.63% 0.63 mg IH Q4HR PRN #2 ml 01/03/19 02/18/19 Unknown Rx NEBS] Albuterol Sulfate [Proair 90 mcg IH Q4HR PRN #2 aer.pow.ba 01/03/19 02/18/19 Unknown Rx Respiclick] DOXYCYCLINE Hyclate [Vibramycin] 100 mg PO Q12HR #14 capsule 01/03/19 02/18/19 Unknown Rx Ipratropium (Nf) [Atrovent] 2 puff IH Q6HR PRN #1 inha 01/03/19 02/18/19 Unknown Rx Ipratropium [Atrovent NEB] 0.5 mg IH Q4HR #2 ml 01/03/19 02/18/19 Unknown Rx methylPREDNISolone [Medrol 4MG 4 mg PO QDAY #1 tab.ds.pk 01/03/19 02/18/19 Unknown Rx DOSEPAK (21 tabs)] Active Meds: Active Medications Acetaminophen (Tylenol) 650 mg PO Q4H PRN PRN Reason: Pain MILD(1-3)/Fever >100.5/TOVAR Albuterol (Proventil) 2.5 mg IH Q4HRT PRN PRN Reason: Shortness Of Breath Arformoterol Tartrate (Brovana Nebu) 15 mcg IH Q12HRT [facility] Last Admin: 02/19/19 08:58 Dose: 15 mcg Documented by: Atorvastatin Calcium (Atorvastatin) 10 mg PO ONCE [facility] Budesonide (Pulmicort) 0.5 mg IH Q12HRT [facility] Last Admin: 02/19/19 08:58 Dose: 0.5 mg Documented by: Famotidine (Pepcid) 20 mg PO BID [facility] Last Admin: 02/19/19 09:28 Dose: 20 mg Documented by: Guaifenesin (Mucinex Er) 600 mg PO BID [facility] Last Admin: 02/19/19 09:28 Dose: 600 mg Documented by: Levofloxacin/Dextrose (Levaquin 500mg/100ml) 500 mg in 100 mls @ 100 mls/hr IV Q24H [facility]; Protocol Last Admin: 02/18/19 17:08 Dose: 100 mls/hr Documented by: Metronidazole (Flagyl 500 Mg/100 Ml) 500 mg in 100 mls @ 100 mls/hr IV Q8H [facility]; Protocol Last Admin: 02/19/19 09:28 Dose: 100 mls/hr Documented by: Ipratropium [place] (Atrovent) 0.5 mg IH Q6HRT [facility] Last Admin: 02/19/19 08:58 Dose: 0.5 mg Documented by: Montelukast Sodium (Singulair) 10 mg PO DAILY [facility] Last Admin: 02/19/19 09:28 Dose: 10 mg Documented by: Morphine Sulfate (Morphine) 2 mg IV Q4H PRN PRN Reason: Pain, Moderate (4-6) Last Admin: 02/19/19 01:55 Dose: 2 mg Documented by: Ondansetron HCl (Zofran) 4 mg IV Q8H PRN PRN Reason: Nausea And Vomiting Sodium Chloride (Sodium Chloride Flush Syringe 10 Ml) 10 ml IV BID [facility] Last Admin: 02/19/19 09:29 Dose: 10 ml Documented by: Sodium Chloride (Sodium Chloride Flush Syringe 10 Ml) 10 ml IV PRN PRN PRN Reason: LINE FLUSH Review of Systems Constitutional: weakness Respiratory: shortness of breath, wheezing Physical Examination Vital signs: Vital Signs Temp Pulse Resp BP Pulse Ox 98.3 F 79 22 148/82 100 02/18/19 10:43 02/18/19 10:43 02/18/19 10:43 02/18/19 10:43 02/18/19 10:43 General appearance: no acute distress, alert, other (obese) Eyes: non-icteric ENT: oropharynx moist Ascultation: Bilateral: diminished breath sounds Cardiovascular: regular rate and rhythm Gastrointestinal: normoactive bowel sounds, soft, non-tender Results - Laboratory Findings CBC and BMP: 02/19/19 05:52 02/19/19 05:52 PT/INR, D-dimer PT 12.7 Sec. (12.2-14.9) 02/18/19 12:03 INR 0.96 (0.87-1.13) 02/18/19 12:03 Abnormal lab findings: Abnormal Labs 02/18/19 02/18/19 02/18/19 10:41 10:41 10:53 WBC 18.2 H 18.2 H RBC Hgb MCH 27 L 27 L Plt Count 609 H 609 H Seg Neuts % (Manual) 81.0 H Lymphocytes % (Manual) 12.0 L Seg Neutrophils # Man 14.7 H Sodium 146 H Potassium Carbon Dioxide 33 H Creatinine 0.6 L Lactic Acid Total Protein Albumin 02/18/19 02/19/19 02/19/19 12:19 05:52 05:52 WBC 14.2 H RBC 3.62 L Hgb 9.8 L MCH 27 L Plt Count 561 H Seg Neuts % (Manual) Lymphocytes % (Manual) Seg Neutrophils # Man Sodium 146 H Potassium 3.4 L Carbon Dioxide 34 H Creatinine 0.6 L Lactic Acid 2.60 H* Total Protein 5.5 L D Albumin 3.2 L - Diagnostic Findings Chest x-ray: report reviewed Assessment and Plan - Patient Problems (1) Obesity Current Visit: Yes Status: Acute (2) Chronic respiratory failure Current Visit: Yes Status: Acute (3) CHF (congestive heart failure) Current Visit: Yes Status: Acute Qualifiers: Heart failure type: systolic (4) Colovaginal fistula Current Visit: Yes Status: Acute (5) Diverticulitis large intestine Current Visit: Yes Status: Acute Qualifiers: Diverticulitis bleeding: without bleeding Diverticulitis complication: with out perforation or abscess Qualified Code(s): K57.32 - Diverticulitis of large intestine without perforation or abscess without bleeding (6) Leukocytosis Current Visit: Yes Status: Acute Qualifiers: Leukocytosis type: other Qualified Code(s): D72.828 - Other elevated white blood cell count (7) COPD (chronic obstructive pulmonary disease) Current Visit: No Status: Acute Qualifiers: COPD type: unspecified COPD Qualified Code(s): J44.9 - Chronic obstructive pulmonary disease, unspecified
--- NOTE | 2019-02-19 11:23 | Gastroenterology Consultation ---
History of Present Illness - Reason for Consult Consult date: 02/19/19 RV fistula Requesting physician: RAIMUNDO HARRIS - History of Present Illness The patient is a 58 yo female admitted with an RV fistula. She first noted this over the past 7 days, and states she now has no stool via the rectum. She had associated BLQ abdominal discomfort, and had been started on PO abx per her PCP. 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 She has no blood in the stools, and thinks her last normal colonoscopy was over 5 years ago (Dr Martínez). She has had no prior severe attack of diverticulitis. However, she does have severe COPD, and is on 6L of O2 daily, with active tobacco abuse. She has a hx of mild CMP per Cards as well. She says she can barely make it 20 feet without stopping due to SOLANO. Of note, she says she had an emergency surgery at [facility] (no records seen of this) for what sounds like a bowel obstruction several years ago. She has had a NATALY, but it is unknown if this was adhesion-related disease; there have been no further attacks. Past History Past Medical History: COPD, hypertension (Non-ischemic CMP), other (use home o2) Past Surgical History: hysterectomy, Other (Exp lap per patient "years ago" for ?obstruction) Social history: , lives with family, smoking, other (use home o2). denies: alcohol abuse, prescription drug abuse Family history: CAD, hypertension Medications and Allergies Allergies Allergy/AdvReac Type Severity Reaction Status Date / Time erythromycin base Allergy Unknown Verified 06/19/16 13:28 Penicillins Allergy Unknown Verified 06/19/16 16:21 Home Medications Medication Instructions Recorded Confirmed Last Taken Type Escitalopram [Lexapro] 10 mg PO ONCE 08/03/18 02/18/19 Unknown History Fexofenadine HCl [Shelly Allergy] 180 mg PO ONCE 08/03/18 02/18/19 Unknown History Omeprazole Magnesium [PriLOSEC Otc] 20 mg PO ONCE 08/03/18 02/18/19 Unknown History Omeprazole Magnesium [PriLOSEC Otc] 20 mg PO ONCE 08/03/18 02/18/19 Unknown History Simethicone [Gas Relief] 125 mg PO ONCE 08/03/18 02/18/19 Unknown History carvediloL [Coreg] 12.5 mg PO ONCE 08/03/18 02/18/19 Unknown History guaiFENesin [Mucinex] 1,200 mg PO PRN 08/03/18 02/18/19 Unknown History ALBUTEROL NEB's [Proventil 0.083% 2.5 mg IH Q4HRT PRN #1 nebu 08/05/18 02/18/19 Unknown Rx NEBS] Arformoterol Nebu [Brovana Nebu] 15 mcg IH Q12HRT #1 ml 08/05/18 02/18/19 Unkn own Rx AtorvaSTATin 10 mg PO ONCE #30 tablet 08/05/18 02/18/19 Unknown Rx Budesonide [Pulmicort Respules] 0.25 mg IH Q12HRT #1 nebu 08/05/18 02/18/19 Unknown Rx Famotidine [Pepcid] 20 mg PO BID #60 tablet 08/05/18 02/18/19 Unknown Rx HYDROcodone/APAP 5-325 [Colton 1 each PO Q6H PRN #8 tablet 08/05/18 02/18/19 Unknown Rx 5-325 mg TAB] Montelukast [Singulair] 10 mg PO DAILY #30 tablet 08/05/18 02/18/19 Unknown Rx guaiFENesin ER [Mucinex ER] 600 mg PO BID #10 tablet 08/05/18 02/18/19 Unknown Rx levoFLOXacin [Levaquin TAB] 500 mg PO QDAY #5 tablet 08/05/18 02/18/19 Unknown Rx methylPREDNISolone [Medrol] 4 mg PO QAM #1 tab.ds.pk 08/05/18 02/18/19 Unknown Rx Levalbuterol [Xopenex] 0.63 mg IH Q4H PRN #1 box 12/04/18 02/18/19 Unknown Rx Albuterol Sulfate [Albuterol 0.63% 0.63 mg IH Q4HR PRN #2 ml 01/03/19 02/18/19 Unknown Rx NEBS] Albuterol Sulfate [Proair 90 mcg IH Q4HR PRN #2 aer.pow.ba 01/03/19 02/18/19 Unknown Rx Respiclick] DOXYCYCLINE Hyclate [Vibramycin] 100 mg PO Q12HR #14 capsule 01/03/19 02/18/19 Unknown Rx Ipratropium (Nf) [Atrovent] 2 puff IH Q6HR PRN #1 inha 01/03/19 02/18/19 Unknown Rx Ipratropium [Atrovent NEB] 0.5 mg IH Q4HR #2 ml 01/03/19 02/18/19 Unknown Rx methylPREDNISolone [Medrol 4MG 4 mg PO QDAY #1 tab.ds.pk 01/03/19 02/18/19 Unknown Rx DOSEPAK (21 tabs)] Active Meds: Active Medications Acetaminophen (Tylenol) 650 mg PO Q4H PRN PRN Reason: Pain MILD(1-3)/Fever >100.5/TOVAR Albuterol (Proventil) 2.5 mg IH Q4HRT PRN PRN Reason: Shortness Of Breath Arformoterol Tartrate (Brovana Nebu) 15 mcg IH Q12HRT [facility] Last Admin: 02/19/19 08:58 Dose: 15 mcg Documented by: Atorvastatin Calcium (Atorvastatin) 10 mg PO ONCE [facility] Budesonide (Pulmicort) 0.5 mg IH Q12HRT [facility] Last Admin: 02/19/19 08:58 Dose: 0.5 mg Documented by: Famotidine (Pepcid) 20 mg PO BID [facility] Last Admin: 02/19/19 09:28 Dose: 20 mg Documented by: Guaifenesin (Mucinex Er) 600 mg PO BID [facility] Last Admin: 02/19/19 09:28 Dose: 600 mg Documented by: Levofloxacin/Dextrose (Levaquin 500mg/100ml) 500 mg in 100 mls @ 100 mls/hr IV Q24H [facility]; Protocol Last Admin: 02/18/19 17:08 Dose: 100 mls/hr Documented by: Metronidazole (Flagyl 500 Mg/100 Ml) 500 mg in 100 mls @ 100 mls/hr IV Q8H [facility]; Protocol Last Admin: 02/19/19 09:28 Dose: 100 mls/hr Documented by: Ipratropium [place] (Atrovent) 0.5 mg IH Q6HRT [facility] Last Admin: 02/19/19 08:58 Dose: 0.5 mg Documented by: Montelukast Sodium (Singulair) 10 mg PO DAILY [facility] Last Admin: 02/19/19 09:28 Dose: 10 mg Documented by: Morphine Sulfate (Morphine) 2 mg IV Q4H PRN PRN Reason: Pain, Moderate (4-6) Last Admin: 02/19/19 01:55 Dose: 2 mg Documented by: Ondansetron HCl (Zofran) 4 mg IV Q8H PRN PRN Reason: Nausea And Vomiting Sodium Chloride (Sodium Chloride Flush Syringe 10 Ml) 10 ml IV BID [facility] Last Admin: 02/19/19 09:29 Dose: 10 ml Documented by: Sodium Chloride (Sodium Chloride Flush Syringe 10 Ml) 10 ml IV PRN PRN PRN Reason: LINE FLUSH I HAVE REVIEWED AND RECONCILED MEDICATIONS Review of Systems - Review of Systems All systems: negative (as noted in the HPI.) Exam - Constitutional Vital Signs: Temp Pulse Resp BP Pulse Ox 98.3 F 88 18 124/85 98 02/19/19 08:03 02/19/19 09:00 02/19/19 09:00 02/19/19 08:03 02/19/19 09:07 General appearance: mild distress (Mild SOB when speaking/mild resp distress (able to complete full sentences)) - EENT Eyes: PERRL, EOM intact ENT: hearing intact, clear oral mucosa, no thrush - Neck Neck: supple, normal ROM - Respiratory Respiratory effort: labored (Mildly labored) Respiratory: bilateral: diminished - Cardiovascular Rhythm: regular Heart Sounds: Present: S1 & S2 Extremities: no ischemia, No edema - Gastrointestinal General gastrointestinal: Present: soft, tender (Minimal LLQ pain), non-disten ded - Integumentary Integumentary: Present: clear, warm, dry - Neurologic Neurological: alert and oriented x3 - Labs CBC & Chem 7: 02/19/19 05:52 02/19/19 05:52 Lab Results: Laboratory Results - last 24 hr 02/18/19 02/18/19 02/18/19 10:41 10:53 12:03 WBC 18.2 H RBC 4.02 Hgb 10.9 Hct 34.6 MCV 86 MCH 27 L MCHC 32 RDW 15.2 Plt Count 609 H Add Manual Diff Complete Total Counted 100 Seg Neuts % (Manual) 81.0 H Band Neutrophils % 1.0 Lymphocytes % (Manual) 12.0 L Reactive Lymphs % (Man) 0 Monocytes % (Manual) 3.0 Eosinophils % (Manual) 0 Basophils % (Manual) 0 Metamyelocytes % 3.0 Myelocytes % 0 Promyelocytes % 0 Blast Cells % 0 Nucleated RBC % Not Reportable Seg Neutrophils # Man 14.7 H Band Neutrophils # 0.2 Lymphocytes # (Manual) 2.2 Abs React Lymphs (Man) 0.0 Monocytes # (Manual) 0.5 Eosinophils # (Manual) 0.0 Basophils # (Manual) 0.0 Metamyelocytes # 0.5 Myelocytes # 0.0 Promyelocytes # 0.0 Blast Cells # 0.0 WBC Morphology Not Reportable Hypersegmented Neuts Not Reportable Hyposegmented Neuts Not Reportable Hypogranular Neuts Not Reportable Smudge Cells Not Reportable Toxic Granulation Not Reportable Toxic Vacuolation Not Reportable Dohle Bodies Not Reportable Pelger-Huet Anomaly Not Reportable Florentino Rods Not Reportable Platelet Estimate Consistent w auto Clumped Platelets Not Reportable Plt Clumps, EDTA Not Reportable Large Platelets Not Reportable Giant Platelets Not Reportable Platelet Satelliting Not Reportable Plt Morphology Comment Not Reportable RBC Morphology Not Reportable Dimorphic RBCs Not Reportable Polychromasia Not Reportable Hypochromasia Not Reportable Poikilocytosis Not Reportable Anisocytosis 1+ Microcytosis Not Reportable Macrocytosis Not Reportable Spherocytes Not Reportable Pappenheimer Bodies Not Reportable Sickle Cells Not Reportable Target Cells Not Reportable Tear Drop Cells Not Reportable Ovalocytes Not Reportable Helmet Cells Not Reportable Mabry[place] Bodies Not Reportable [place] Rings Not Reportable Marcelo Cells Not Reportable Bite Cells Not Reportable Crenated Cell Not Reportable Elliptocytes Not Reportable Acanthocytes (Spur) Not Reportable Rouleaux Not Reportable Hemoglobin C Crystals Not Reportable Schistocytes Not Reportable Malaria parasites Not Reportable Maykel Bodies Not Reportable Hem Pathologist Commnt No PT 12.7 INR 0.96 APTT 25.0 Sodium 146 H Potassium 3.8 Chloride 99.8 Carbon Dioxide 33 H Anion Gap 17 BUN 10 Creatinine 0.6 L Estimated GFR > 60 BUN/Creatinine Ratio 17 Glucose 83 Lactic Acid Calcium 9.5 Magnesium Total Bilirubin < 0.20 AST 18 ALT 19 Alkaline Phosphatase 62 NT-Pro-B Natriuret Pep Total Protein 6.9 Albumin 4.1 Albumin/Globulin Ratio 1.5 Urine Color Urine Turbidity Urine pH Ur Specific [place] Urine Protein Urine Glucose (UA) Urine Ketones Urine Blood Urine Nitrite Urine Bilirubin Urine Urobilinogen Ur Leukocyte Esterase Urine WBC (Auto) Urine RBC (Auto) 02/18/19 02/18/19 02/18/19 12:03 12:03 12:09 WBC RBC Hgb Hct MCV MCH MCHC RDW Plt Count Add Manual Diff Total Counted Seg Neuts % (Manual) Band Neutrophils % Lymphocytes % (Manual) Reactive Lymphs % (Man) Monocytes % (Manual) Eosinophils % (Manual) Basophils % (Manual) Metamyelocytes % Myelocytes % Promyelocytes % Blast Cells % Nucleated RBC % Seg Neutrophils # Man Band Neutrophils # Lymphocytes # (Manual) Abs React Lymphs (Man) Monocytes # (Manual) Eosinophils # (Manual) Basophils # (Manual) Metamyelocytes # Myelocytes # Promyelocytes # Blast Cells # WBC Morphology Hypersegmented Neuts Hyposegmented Neuts Hypogranular Neuts Smudge Cells Toxic Granulation Toxic Vacuolation Dohle Bodies Pelger-Huet Anomaly Florentino Rods Platelet Estimate Clumped Platelets Plt Clumps, EDTA Large Platelets Giant Platelets Platelet Satelliting Plt Morphology Comment RBC Morphology Dimorphic RBCs Polychromasia Hypochromasia Poikilocytosis Anisocytosis Microcytosis Macrocytosis Spherocytes Pappenheimer Bodies Sickle Cells Target Cells Tear Drop Cells Ovalocytes Helmet Cells Mabry-[place] Bodies [place] Rings [place] Cells Bite Cells Crenated Cell Elliptocytes Acanthocytes (Spur) Rouleaux Hemoglobin C Crystals Schistocytes Malaria parasites Maykel Bodies Hem Pathologist Commnt PT INR APTT Sodium Potassium Chloride Carbon Dioxide Anion Gap BUN Creatinine Estimated GFR BUN/Creatinine Ratio Glucose Lactic Acid Calcium Magnesium 2.00 Total Bilirubin AST ALT Alkaline Phosphatase NT-Pro-B Natriuret Pep 52.06 Total Protein Albumin Albumin/Globulin Ratio Urine Color Yellow Urine Turbidity Clear Urine pH 6.0 Ur Specific [place] 1.014 Urine Protein <15 mg/dl Urine Glucose (UA) Neg Urine Ketones Neg Urine Blood Neg Urine Nitrite Neg Urine Bilirubin Neg Urine Urobilinogen < 2.0 Ur Leukocyte Esterase Tr Urine WBC (Auto) 1.0 Urine RBC (Auto) 3.0 02/18/19 02/18/19 02/19/19 12:19 14:17 05:52 WBC 14.2 H RBC 3.62 L Hgb 9.8 L Hct 31.4 MCV 87 MCH 27 L MCHC 31 RDW 15.2 Plt Count 561 H Add Manual Diff Total Counted Seg Neuts % (Manual) Band Neutrophils % Lymphocytes % (Manual) Reactive Lymphs % (Man) Monocytes % (Manual) Eosinophils % (Manual) Basophils % (Manual) Metamyelocytes % Myelocytes % Promyelocytes % Blast Cells % Nucleated RBC % Seg Neutrophils # Man Band Neutrophils # Lymphocytes # (Manual) Abs React Lymphs (Man) Monocytes # (Manual) Eosinophils # (Manual) Basophils # (Manual) Metamyelocytes # Myelocytes # Promyelocytes # Blast Cells # WBC Morphology Hypersegmented Neuts Hyposegmented Neuts Hypogranular Neuts Smudge Cells Toxic Granulation Toxic Vacuolation Dohle Bodies Pelger-Huet Anomaly Florentino Rods Platelet Estimate Clumped Platelets Plt Clumps, EDTA Large Platelets Giant Platelets Platelet Satelliting Plt Morphology Comment RBC Morphology Dimorphic RBCs Polychromasia Hypochromasia Poikilocytosis Anisocytosis Microcytosis Macrocytosis Spherocytes Pappenheimer Bodies Sickle Cells Target Cells Tear Drop Cells Ovalocytes Helmet Cells Mabry-[place] Bodies [place] Rings Marcelo Cells Bite Cells Crenated Cell Elliptocytes Acanthocytes (Spur) Rouleaux Hemoglobin C Crystals Schistocytes Malaria parasites Maykel Bodies Hem Pathologist Commnt PT INR APTT Sodium Potassium Chloride Carbon Dioxide Anion Gap BUN Creatinine Estimated GFR BUN/Creatinine Ratio Glucose Lactic Acid 2.60 H* 0.70 Calcium Magnesium Total Bilirubin AST ALT Alkaline Phosphatase NT-Pro-B Natriuret Pep Total Protein Albumin Albumin/Globulin Ratio Urine Color Urine Turbidity Urine pH Ur Specific [place] Urine Protein Urine Glucose (UA) Urine Ketones Urine Blood Urine Nitrite Urine Bilirubin Urine Urobilinogen Ur Leukocyte Esterase Urine WBC (Auto) Urine RBC (Auto) 02/19/19 05:52 WBC RBC Hgb Hct MCV MCH MCHC RDW Plt Count Add Manual Diff Total Counted Seg Neuts % (Manual) Band Neutrophils % Lymphocytes % (Manual) Reactive Lymphs % (Man) Monocytes % (Manual) Eosinophils % (Manual) Basophils % (Manual) Metamyelocytes % Myelocytes % Promyelocytes % Blast Cells % Nucleated RBC % Seg Neutrophils # Man Band Neutrophils # Lymphocytes # (Manual) Abs React Lymphs (Man) Monocytes # (Manual) Eosinophils # (Manual) Basophils # (Manual) Metamyelocytes # Myelocytes # Promyelocytes # Blast Cells # WBC Morphology Hypersegmented Neuts Hyposegmented Neuts Hypogranular Neuts Smudge Cells Toxic Granulation Toxic Vacuolation Dohle Bodies Pelger-Huet Anomaly Florentino Rods Platelet Estimate Clumped Platelets Plt Clumps, EDTA Large Platelets Giant Platelets Platelet Satelliting Plt Morphology Comment RBC Morphology Dimorphic RBCs Polychromasia Hypochromasia Poikilocytosis Anisocytosis Microcytosis Macrocytosis Spherocytes Pappenheimer Bodies Sickle Cells Target Cells Tear Drop Cells Ovalocytes Helmet Cells Mabry-[place] Bodies [place] Rings Marcelo Cells Bite Cells Crenated Cell Elliptocytes Acanthocytes (Spur) Rouleaux Hemoglobin C Crystals Schistocytes Malaria parasites Maykel Bodies Hem Pathologist Commnt PT INR APTT Sodium 146 H Potassium 3.4 L Chloride 101.9 Carbon Dioxide 34 H Anion Gap 14 BUN 10 Creatinine 0.6 L Estimated GFR > 60 BUN/Creatinine Ratio 17 Glucose 79 Lactic Acid Calcium 8.6 Magnesium Total Bilirubin < 0.20 AST 13 ALT 14 Alkaline Phosphatase 49 NT-Pro-B Natriuret Pep Total Protein 5.5 L D Albumin 3.2 L Albumin/Globulin Ratio 1.4 Urine Color Urine Turbidity Urine pH Ur Specific [place] Urine Protein Urine Glucose (UA) Urine Ketones Urine Blood Urine Nitrite Urine Bilirubin Urine Urobilinogen Ur Leukocyte Esterase Urine WBC (Auto) Urine RBC (Auto) Assessment and Plan - Patient Problems (1) Rectovaginal fistula Current Visit: Yes Status: Acute Plan to address problem: - Likely related to underlying diverticular disease, but can not exclude underlying CA. - Discussed with surgery, and since last colonoscopy > 5 years ago, will plan repeat colonoscopy to evaluate at least the sigmoid. - Will defer colonoscopy until TTE performed, and Respiratory status somewhat improved. - Discussed with patient, that if significant adhesions present, or RV fistula severe, that there is an increased risk of a post-operative colostomy; also discussed the risks of any interventions with her significant pulmonary disease, and the possibility of a trach if unable to wean from vent. - Will continue broad-spectrum abx for now, and clear liquids; may need TPN depending on duration of clear liquid diet.
--- NOTE | 2019-02-19 12:09 | Progress Note ---
Assessment and Plan Assessment and plan: Willard-vaginal fistula Surg consulted, following GI consulted, following Fan Mail Editor consulted CHF (congestive heart failure) Cardiology consulted in ED, BNP, Chest x ray, diuresis, afterload reduction, monitor uop q shift, daily weight, supplemental oxygen, SIRS (systemic inflammatory response syndrome) CBC, CMP, Urinalysis, chext x ray, Iv antibiotic therapy Diverticulitis large intestine Diverticulitis with Fistula formation: IV antibiotic therapy, IVF resuscitation therapy, CT Abdomen/Pelvis, CBC, CMP, serial abdominal exam, Surgery team consulted, GI team consulted, as well as [employer] team. Chronic hypercapnic respiratory failure Supplemental oxygen, nebulizer therapy, IV steroid therapy, pulse oximetry, Chest x ray, NIPPV as clinically indicated. Pulmonary team consulted in ED. Hypertension) Monitor bp q shift, continue medical management Hyperlipidemia) balanced diet, low cholesterol diet, DVT prophylaxis SCD to BLE while in bed, PT ambulatory History Interval history: Feces coming through vagina Hospitalist Physical - Physical exam Narrative exam: Gen: Not in acute distress, lying in bed, HEENT: Normocephalic, atraumatic Neck: supple, no JVD Heart: S1 and S2 reg, no murmurs, rubs or gallop Lungs: Clear, no crackles, No wheeze Abd: soft, non tender, non distended, normal BS, Ext: No edema, no clubbing, no cyanosis Neuro: Awake, alert, oriented X 3, moves all ext - Constitutional Vitals: Temp Pulse Resp BP Pulse Ox 98.3 F 88 18 124/85 98 02/19/19 08:03 02/19/19 09:00 02/19/19 09:00 02/19/19 08:03 02/19/19 09:07 General appearance: Present: no acute distress Results - Labs CBC & Chem 7: 02/21/19 07:40 02/21/19 07:40 Labs: Laboratory Last Values WBC 14.2 K/mm3 (4.5-11.0) H 02/19/19 05:52 RBC 3.62 M/mm3 (3.65-5.03) L 02/19/19 05:52 Hgb 9.8 gm/dl (10.1-14.3) L 02/19/19 05:52 Hct 31.4 % (30.3-42.9) 02/19/19 05:52 MCV 87 fl (79-97) 02/19/19 05:52 MCH 27 pg (28-32) L 02/19/19 05:52 MCHC 31 % (30-34) 02/19/19 05:52 RDW 15.2 % (13.2-15.2) 02/19/19 05:52 Plt Count 561 K/mm3 (140-440) H 02/19/19 05:52 Add Manual Diff Complete 02/18/19 10:41 Total Counted 100 02/18/19 10:41 Seg Neuts % (Manual) 81.0 % (40.0-70.0) H 02/18/19 10:41 Band Neutrophils % 1.0 % 02/18/19 10:41 Lymphocytes % (Manual) 12.0 % (13.4-35.0) L 02/18/19 10:41 Reactive Lymphs % (Man) 0 % 02/18/19 10:41 Monocytes % (Manual) 3.0 % (0.0-7.3) 02/18/19 10:41 Eosinophils % (Manual) 0 % (0.0-4.3) 02/18/19 10:41 Basophils % (Manual) 0 % (0.0-1.8) 02/18/19 10:41 Metamyelocytes % 3.0 % 02/18/19 10:41 Myelocytes % 0 % 02/18/19 10:41 Promyelocytes % 0 % 02/18/19 10:41 Blast Cells % 0 % 02/18/19 10:41 Nucleated RBC % Not Reportable 02/18/19 10:41 Seg Neutrophils # Man 14.7 K/mm3 (1.8-7.7) H 02/18/19 10:41 Band Neutrophils # 0.2 K/mm3 02/18/19 10:41 Lymphocytes # (Manual) 2.2 K/mm3 (1.2-5.4) 02/18/19 10:41 Abs React Lymphs (Man) 0.0 K/mm3 02/18/19 10:41 Monocytes # (Manual) 0.5 K/mm3 (0.0-0.8) 02/18/19 10:41 Eosinophils # (Manual) 0.0 K/mm3 (0.0-0.4) 02/18/19 10:41 Basophils # (Manual) 0.0 K/mm3 (0.0-0.1) 02/18/19 10:41 Metamyelocytes # 0.5 K/mm3 02/18/19 10:41 Myelocytes # 0.0 K/mm3 02/18/19 10:41 Promyelocytes # 0.0 K/mm3 02/18/19 10:41 Blast Cells # 0.0 K/mm3 02/18/19 10:41 WBC Morphology Not Reportable 02/18/19 10:41 Hypersegmented Neuts Not Reportable 02/18/19 10:41 Hyposegmented Neuts Not Reportable 02/18/19 10:41 Hypogranular Neuts Not Reportable 02/18/19 10:41 Smudge Cells Not Reportable 02/18/19 10:41 Toxic Granulation Not Reportable 02/18/19 10:41 Toxic Vacuolation Not Reportable 02/18/19 10:41 Dohle Bodies Not Reportable 02/18/19 10:41 Pelger-Huet Anomaly Not Reportable 02/18/19 10:41 Florentino Rods Not Reportable 02/18/19 10:41 Platelet Estimate Consistent w auto 02/18/19 10:41 Clumped Platelets Not Reportable 02/18/19 10:41 Plt Clumps, EDTA Not Reportable 02/18/19 10:41 Large Platelets Not Reportable 02/18/19 10:41 Giant Platelets Not Reportable 02/18/19 10:41 Platelet Satelliting Not Reportable 02/18/19 10:41 Plt Morphology Comment Not Reportable 02/18/19 10:41 RBC Morphology Not Reportable 02/18/19 10:41 Dimorphic RBCs Not Reportable 02/18/19 10:41 Polychromasia Not Reportable 02/18/19 10:41 Hypochromasia Not Reportable 02/18/19 10:41 Poikilocytosis Not Reportable 02/18/19 10:41 Anisocytosis 1+ 02/18/19 10:41 Microcytosis Not Reportable 02/18/19 10:41 Macrocytosis Not Reportable 02/18/19 10:41 Spherocytes Not Reportable 02/18/19 10:41 Pappenheimer Bodies Not Reportable 02/18/19 10:41 Sickle Cells Not Reportable 02/18/19 10:41 Target Cells Not Reportable 02/18/19 10:41 Tear Drop Cells Not Reportable 02/18/19 10:41 Ovalocytes Not Reportable 02/18/19 10:41 Helmet Cells Not Reportable 02/18/19 10:41 [place] Bodies Not Reportable 02/18/19 10:41 Ecru Rings Not Reportable 02/18/19 10:41 [place] Cells Not Reportable 02/18/19 10:41 Bite Cells Not Reportable 02/18/19 10:41 Crenated Cell Not Reportable 02/18/19 10:41 Elliptocytes Not Reportable 02/18/19 10:41 Acanthocytes (Spur) Not Reportable 02/18/19 10:41 Rouleaux Not Reportable 02/18/19 10:41 Hemoglobin C Crystals Not Reportable 02/18/19 10:41 Schistocytes Not Reportable 02/18/19 10:41 Malaria parasites Not Reportable 02/18/19 10:41 Maykel Bodies Not Reportable 02/18/19 10:41 Hem Pathologist Commnt No 02/18/19 10:41 PT 12.7 Sec. (12.2-14.9) 02/18/19 12:03 INR 0.96 (0.87-1.13) 02/18/19 12:03 APTT 25.0 Sec. (24.2-36.6) 02/18/19 12:03 Sodium 146 mmol/L (137-145) H 02/19/19 05:52 Potassium 3.4 mmol/L (3.6-5.0) L 02/19/19 05:52 Chloride 101.9 mmol/L (98-107) 02/19/19 05:52 Carbon Dioxide 34 mmol/L (22-30) H 02/19/19 05:52 Anion Gap 14 mmol/L 02/19/19 05:52 BUN 10 mg/dL (7-17) 02/19/19 05:52 Creatinine 0.6 mg/dL (0.7-1.2) L 02/19/19 05:52 Estimated GFR > 60 ml/min 02/19/19 05:52 BUN/Creatinine Ratio 17 % 02/19/19 05:52 Glucose 79 mg/dL (65-100) 02/19/19 05:52 Lactic Acid 0.70 mmol/L (0.7-2.0) 02/18/19 14:17 Calcium 8.6 mg/dL (8.4-10.2) 02/19/19 05:52 Magnesium 2.00 mg/dL (1.7-2.3) 02/18/19 12:03 Total Bilirubin < 0.20 mg/dL (0.1-1.2) 02/19/19 05:52 AST 13 units/L (5-40) 02/19/19 05:52 ALT 14 units/L (7-56) 02/19/19 05:52 Alkaline Phosphatase 49 units/L (35-129) 02/19/19 05:52 NT-Pro-B Natriuret Pep 52.06 pg/mL (0-900) 02/18/19 12:03 Total Protein 5.5 g/dL (6.3-8.2) L D 02/19/19 05:52 Albumin 3.2 g/dL (3.9-5) L 02/19/19 05:52 Albumin/Globulin Ratio 1.4 % 02/19/19 05:52 Urine Color Yellow (Yellow) 02/18/19 12:09 Urine Turbidity Clear (Clear) 02/18/19 12:09 Urine pH 6.0 (5.0-7.0) 02/18/19 12:09 Ur Specific [place] 1.014 (1.003-1.030) 02/18/19 12:09 Urine Protein <15 mg/dl mg/dL (Negative) 02/18/19 12:09 Urine Glucose (UA) Neg mg/dL (Negative) 02/18/19 12:09 Urine Ketones Neg mg/dL (Negative) 02/18/19 12:09 Urine Blood Neg (Negative) 02/18/19 12:09 Urine Nitrite Neg (Negative) 02/18/19 12:09 Urine Bilirubin Neg (Negative) 02/18/19 12:09 Urine Urobilinogen < 2.0 mg/dL (<2.0) 02/18/19 12:09 Ur Leukocyte Esterase Tr (Negative) 02/18/19 12:09 Urine WBC (Auto) 1.0 /HPF (0.0-6.0) 02/18/19 12:09 Urine RBC (Auto) 3.0 /HPF (0.0-6.0) 02/18/19 12:09 Active Medications - Current Medications Current Medications: Generic Name Dose Route Start Last Admin Trade Name Freq PRN Reason Stop Dose Admin Acetaminophen 650 mg 02/18/19 15:05 Tylenol PO Q4H PRN Pain MILD(1-3)/Fever >100.5/TOVAR Albuterol 2.5 mg 02/18/19 15:05 Proventil IH Q4HRT PRN Shortness Of Breath Arformoterol Tartrate 15 mcg 02/18/19 20:00 02/19/19 08:58 Brovana Nebu IH 15 mcg Q12HRT BUTCH Administration Atorvastatin Calcium 10 mg 02/18/19 15:15 Atorvastatin PO ONCE BUTCH Budesonide 0.5 mg 02/19/19 09:00 02/19/19 08:58 Pulmicort IH 0.5 mg Q12HRT BUTCH Administration Famotidine 20 mg 02/18/19 22:00 02/19/19 09:28 Pepcid PO 20 mg BID BUTCH Administration Guaifenesin 600 mg 02/18/19 22:00 02/19/19 09:28 Mucinex Er PO 600 mg BID BUTCH Administration Levofloxacin/Dextrose 500 mg in 100 mls @ 100 mls/hr 02/18/19 16:00 02/18/19 17:08 Levaquin 500mg/100ml IV 100 mls/hr Q24H BUTCH Administration Protocol Metronidazole 500 mg in 100 mls @ 100 mls/hr 02/18/19 16:00 02/19/19 09:28 Flagyl 500 Mg/100 Ml IV 100 mls/hr Q8H BUTCH Administration Protocol Ipratropium [place] 0.5 mg 02/18/19 20:00 02/19/19 08:58 Atrovent IH 0.5 mg Q6HRT BUTCH Administration Montelukast Sodium 10 mg 02/19/19 10:00 02/19/19 09:28 Singulair PO 10 mg DAILY BUTCH Administration Morphine Sulfate 2 mg 02/18/19 15:05 02/19/19 01:55 Morphine IV 2 mg Q4H PRN Administration Pain, Moderate (4-6) Ondansetron HCl 4 mg 02/18/19 15:05 Zofran IV Q8H PRN Nausea And Vomiting Sodium Chloride 10 ml 02/18/19 22:00 02/19/19 09:29 Sodium Chloride Flush Syringe 10 Ml IV 10 ml BID BUTCH Administration Sodium Chloride 10 ml 02/18/19 15:05 Sodium Chloride Flush Syringe 10 Ml IV PRN PRN LINE FLUSH
[2019-02-19 12:32] LABS: Anisocytosis 1+; Band Neutrophils # (Manual) 0.1 K/mm3; Basophils % (Manual) 0 % (0.0-1.8); Eosinophils % (Manual) 0 % (0.0-4.3); Total Cells Counted 100
[2019-02-19 12:33] LABS: Platelet Estimate Consistent w Auto
--- NOTE | 2019-02-19 16:45 | Consultation ---
History of Present Illness Consult date: 02/19/19 Reason for consult: other (stool from vagina) Requesting physician: VERONICA AMATO Chief complaint: abnormal vaginal discharge - History of present illness History of present illness: 58 YO Female with COPD, Chronic Respiratory Failure on Home Oxygen 4L/min via NC, Pulmonary HTN, HLD, Systolic CHF, Valvular Heart Disease presents to ED for evaluation. Pt states that she has experienced abdominal discomfort over the past week, as well as feces leaking from her vagina over the past 6 days with progressively worsening symptoms over the same time frame. 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 General surgery was consulted for evaluation and management. She reports that about 1 month ago, she began to have lower abdominal discomfort. She thought it was secondary to her osteoarthritis medication. She was also having difficulty with bowel movements at that time for which she took different types of laxatives. She does not recall having a diagnosis of diverticulitis in the past. For her surgical history, a number of years ago she had a total abdominal hysterectomy. In 2010 she had a bowel obstruction for which a lower midline incision was done. She does not recall exactly what was done. She does not remember which surgeon performed the procedure. Past History Past Medical History: COPD (able to walk only 20ft before having SOB), hypertension (Non-ischemic CMP), other (use home o2) Past Surgical History: hysterectomy (total), Other (Exp lap per patient "years ago" for ?obstruction - 2010) Social history: , lives with family, smoking (1pk every 3-4 days), other (use home o2). denies: alcohol abuse, prescription drug abuse Family history: CAD, hypertension Medications and Allergies Allergies Allergy/AdvReac Type Severity Reaction Status Date / Time Penicillins Allergy Unknown Verified 06/19/16 16:21 Home Medications Medication Instructions Recorded Confirmed Last Taken Type Escitalopram [Lexapro] 10 mg PO ONCE 08/03/18 02/18/19 Unknown History Fexofenadine HCl [Shelly Allergy] 180 mg PO ONCE 08/03/18 02/18/19 Unknown History Omeprazole Magnesium [PriLOSEC Otc] 20 mg PO ONCE 08/03/18 02/18/19 Unknown History Omeprazole Magnesium [PriLOSEC Otc] 20 mg PO ONCE 08/03/18 02/18/19 Unknown History Simethicone [Gas Relief] 125 mg PO ONCE 08/03/18 02/18/19 Unknown History carvediloL [Coreg] 12.5 mg PO ONCE 08/03/18 02/18/19 Unknown History guaiFENesin [Mucinex] 1,200 mg PO PRN 08/03/18 02/18/19 Unknown History ALBUTEROL NEB's [Proventil 0.083% 2.5 mg IH Q4HRT PRN #1 nebu 08/05/18 02/18/19 Unknown Rx NEBS] Arformoterol Nebu [Brovana Nebu] 15 mcg IH Q12HRT #1 ml 08/05/18 02/18/19 Unknown Rx AtorvaSTATin 10 mg PO ONCE #30 tablet 08/05/18 02/18/19 Unknown Rx Budesonide [Pulmicort Respules] 0.25 mg IH Q12HRT #1 nebu 08/05/18 02/18/19 Unknown Rx Famotidine [Pepcid] 20 mg PO BID #60 tablet 08/05/18 02/18/19 Unknown Rx HYDROcodone/APAP 5-325 [[place] 1 each PO Q6H PRN #8 tablet 08/05/18 02/18/19 Unknown Rx 5-325 mg TAB] Montelukast [Singulair] 10 mg PO DAILY #30 tablet 08/05/18 02/18/19 Unknown Rx guaiFENesin ER [Mucinex ER] 600 mg PO BID #10 tablet 08/05/18 02/18/19 Unknown Rx levoFLOXacin [Levaquin TAB] 500 mg PO QDAY #5 tablet 08/05/18 02/18/19 Unknown Rx methylPREDNISolone [Medrol] 4 mg PO QAM #1 tab.ds.pk 08/05/18 02/18/19 Unknown Rx Levalbuterol [Xopenex] 0.63 mg IH Q4H PRN #1 box 12/04/18 02/18/19 Unknown Rx Albuterol Sulfate [Albuterol 0.63% 0.63 mg IH Q4HR PRN #2 ml 01/03/19 02/18/19 Unknown Rx NEBS] Albuterol Sulfate [Proair 90 mcg IH Q4HR PRN #2 aer.pow.ba 01/03/19 02/18/19 Unknown Rx Respiclick] DOXYCYCLINE Hyclate [Vibramycin] 100 mg PO Q12HR #14 capsule 01/03/19 02/18/19 Unknown Rx Ipratropium (Nf) [Atrovent] 2 puff IH Q6HR PRN #1 inha 01/03/19 02/18/19 Unknown Rx Ipratropium [Atrovent NEB] 0.5 mg IH Q4HR #2 ml 01/03/19 02/18/19 Unknown Rx methylPREDNISolone [Medrol 4MG 4 mg PO QDAY #1 tab.ds.pk 01/03/19 02/18/19 Unknown Rx DOSEPAK (21 tabs)] Active Meds: Active Medications Acetaminophen (Tylenol) 650 mg PO Q4H PRN PRN Reason: Pain MILD(1-3)/Fever >100.5/TOVAR Albuterol (Proventil) 2.5 mg IH Q4HRT PRN PRN Reason: Shortness Of Breath Arformoterol Tartrate (Brovana Nebu) 15 mcg IH Q12HRT [facility] Last Admin: 02/19/19 08:58 Dose: 15 mcg Documented by: Atorvastatin Calcium (Atorvastatin) 10 mg PO ONCE [facility] Budesonide (Pulmicort) 0.5 mg IH Q12HRT [facility] Last Admin: 02/19/19 08:58 Dose: 0.5 mg Documented by: Famotidine (Pepcid) 20 mg PO BID [facility] Last Admin: 02/19/19 09:28 Dose: 20 mg Documented by: Guaifenesin (Mucinex Er) 600 mg PO BID [facility] Last Admin: 02/19/19 09:28 Dose: 600 mg Documented by: Levofloxacin/Dextrose (Levaquin 500mg/100ml) 500 mg in 100 mls @ 100 mls/hr IV Q24H [facility]; Protocol Last Admin: 02/19/19 15:32 Dose: 100 mls/hr Documented by: Metronidazole (Flagyl 500 Mg/100 Ml) 500 mg in 100 mls @ 100 mls/hr IV Q8H [facility]; Protocol Last Admin: 02/19/19 15:35 Dose: 100 mls/hr Documented by: Ipratropium [place] (Atrovent) 0.5 mg IH Q6HRT [facility] Last Admin: 02/19/19 15:47 Dose: 0.5 mg Documented by: Montelukast Sodium (Singulair) 10 mg PO DAILY [facility] Last Admin: 02/19/19 09:28 Dose: 10 mg Documented by: Morphine Sulfate (Morphine) 2 mg IV Q4H PRN PRN Reason: Pain, Moderate (4-6) Last Admin: 02/19/19 14:21 Dose: 2 mg Documented by: Ondansetron HCl (Zofran) 4 mg IV Q8H PRN PRN Reason: Nausea And Vomiting Sodium Chloride (Sodium Chloride Flush Syringe 10 Ml) 10 ml IV BID [facility] Last Admin: 02/19/19 09:29 Dose: 10 ml Documented by: Sodium Chloride (Sodium Chloride Flush Syringe 10 Ml) 10 ml IV PRN PRN PRN Reason: LINE FLUSH Review of Systems - Constitutional no fever, no chills - Cardiovascular shortness of breath, dyspnea on exertion, no chest pain - Respiratory dyspnea on exertion, home oxygen, no cough - Gastrointestinal abdominal pain, change in bowel habits, no nausea, no vomiting - Genitourinary Genitourinary: vaginal discharge - Muskuloskeletal no low back pain Exam Vital Signs Temp Pulse Resp BP Pulse Ox 98.3 F 79 22 148/82 100 02/18/19 10:43 02/18/19 10:43 02/18/19 10:43 02/18/19 10:43 02/18/19 10:43 - General physical appearance Positive: no distress, no pain - Eyes Positive: normal occular movement - Respiratory Positive: normal expansion, normal respiratory effort, other (faint breath sounds at the bases) - Cardiovascular Rhythm: regular - Abdomen Abdomen: Present: soft, tender (mild in upper abd), distended, surgical scars (well healed lower midline and Pfannenstiel). Absent: masses, guarding, rigid - Integumentary no rash, no growths, no abnormal pigmentation - Neurologic Neurologic: alert and oriented to time, place and person, motor strength and sensation are grossly intact - Psychiatric Psychiatric: appropriate mood/affect, intact judgment & insight, cooperative Results - Labs 02/19/19 05:52 02/19/19 05:52 Abnormal lab results 02/19/19 02/19/19 Range/Units 05:52 05:52 WBC 14.2 H (4.5-11.0) K/mm3 RBC 3.62 L (3.65-5.03) M/mm3 Hgb 9.8 L (10.1-14.3) gm/dl MCH 27 L (28-32) pg Plt Count 561 H (140-440) K/mm3 Monocytes % (Manual) 11.0 H (0.0-7.3) % Nucleated RBC % 1.0 H (0.0-0.9) % Seg Neutrophils # Man 8.9 H (1.8-7.7) K/mm3 Monocytes # (Manual) 1.6 H (0.0-0.8) K/mm3 Sodium 146 H (137-145) mmol/L Potassium 3.4 L (3.6-5.0) mmol/L Carbon Dioxide 34 H (22-30) mmol/L Creatinine 0.6 L (0.7-1.2) mg/dL Total Protein 5.5 L D (6.3-8.2) g/dL Albumin 3.2 L (3.9-5) g/dL Diabetes panel 02/19/19 Range/Units 05:52 Sodium 146 H (137-145) mmol/L Potassium 3.4 L (3.6-5.0) mmol/L Chloride 101.9 (98-107) mmol/L Carbon Dioxide 34 H (22-30) mmol/L BUN 10 (7-17) mg/dL Creatinine 0.6 L (0.7-1.2) mg/dL Glucose 79 (65-100) mg/dL Calcium 8.6 (8.4-10.2) mg/dL AST 13 (5-40) units/L ALT 14 (7-56) units/L Alkaline Phosphatase 49 (35-129) units/L Total Protein 5.5 L D (6.3-8.2) g/dL Albumin 3.2 L (3.9-5) g/dL Calcium panel 02/19/19 Range/Units 05:52 Calcium 8.6 (8.4-10.2) mg/dL Albumin 3.2 L (3.9-5) g/dL Pituitary panel 02/19/19 Range/Units 05:52 Sodium 146 H (137-145) mmol/L Potassium 3.4 L (3.6-5.0) mmol/L Chloride 101.9 (98-107) mmol/L Carbon Dioxide 34 H (22-30) mmol/L BUN 10 (7-17) mg/dL Creatinine 0.6 L (0.7-1.2) mg/dL Glucose 79 (65-100) mg/dL Calcium 8.6 (8.4-10.2) mg/dL Adrenal panel 02/19/19 Range/Units 05:52 Sodium 146 H (137-145) mmol/L Potassium 3.4 L (3.6-5.0) mmol/L Chloride 101.9 (98-107) mmol/L Carbon Dioxide 34 H (22-30) mmol/L BUN 10 (7-17) mg/dL Creatinine 0.6 L (0.7-1.2) mg/dL Glucose 79 (65-100) mg/dL Calcium 8.6 (8.4-10.2) mg/dL Total Bilirubin < 0.20 (0.1-1.2) mg/dL AST 13 (5-40) units/L ALT 14 (7-56) units/L Alkaline Phosphatase 49 (35-129) units/L Total Protein 5.5 L D (6.3-8.2) g/dL Albumin 3.2 L (3.9-5) g/dL - Imaging CT scan - abdomen: report reviewed, image reviewed CT scan - pelvis: report reviewed, image reviewed Assessment and Plan - Patient Problems (1) Colovaginal fistula Current Visit: Yes Status: Acute Plan to address problem: Pt stable. Fistula is clearly seen on CT scan. She will eventually require operative correction. Prior to that, she will need a colon evaluation by GI. She'll need preoperative evaluation and optimization by pulmonary and cardiology. Surgery does not need to occur during this admission. Once all of her preoperative workup is complete, she may be discharged. We will schedule her for elective surgery. I have also offered that she may see a colorectal surgeon if she chooses. We feel comfortable taking care of this problem, but I wanted her to have options. Will follow along. Please call with questions. time=30min
[2019-02-19] MEDS ORDERED: AYR SALINE NASAL GEL 14.1 GM NS PRN (22:19)
[2019-02-20] MEDS: metroNIDAZOLE/NS 500 MG/100 ML 500 MG/100 ML BAG IV SCH ×3 (00:37→16:09)
[2019-02-20] MEDS: MORPHINE 2 MG/1 ML INJ IV PRN (02:11)
[2019-02-20] MEDS: IPRATROPIUM 0.02% NEBU 2.5 ML IH SCH ×4 (03:56→20:33)
[2019-02-20 05:44] LABS: Hematocrit 32.6 % (30.3-42.9); Hemoglobin 10.4 gm/dl (10.1-14.3); Mean Corpuscular HGB Conc 32 % (30-34); Mean Corpuscular Volume 86 fl (79-97); Platelet Count 574 K/mm3 (140-440); Red Blood Count 3.78 M/mm3 (3.65-5.03); Red Cell Distribution Width 15.3 % (13.2-15.2)
[2019-02-20 06:04] LABS: BUN/Creatinine Ratio 8; Blood Urea Nitrogen 4 mg/dL (7-17); Calcium 8.8 mg/dL (8.4-10.2); Hemolysis Index 1
--- NOTE | 2019-02-20 08:34 | Progress Note ---
Assessment and Plan - Patient Problems (1) Obesity Current Visit: Yes Status: Acute (2) Chronic respiratory failure Current Visit: Yes Status: Acute (3) CHF (congestive heart failure) Current Visit: Yes Status: Acute Qualifiers: Heart failure type: systolic (4) Colovaginal fistula Current Visit: Yes Status: Acute (5) Diverticulitis large intestine Current Visit: Yes Status: Acute Qualifiers: Diverticulitis bleeding: without bleeding Diverticulitis complication: without perforation or abscess Qualified Code(s): K57.32 - Diverticulitis of large intestine without perforation or abscess without bleeding (6) Leukocytosis Current Visit: Yes Status: Acute Qualifiers: Leukocytosis type: other Qualified Code(s): D72.828 - Other elevated white blood cell count (7) COPD (chronic obstructive pulmonary disease) Current Visit: No Status: Acute Qualifiers: COPD type: unspecified COPD Qualified Code(s): J44.9 - Chronic obstructive pulmonary disease, unspecified (8) PAGE on CPAP Current Visit: Yes Status: Acute (9) Chronic respiratory failure Current Visit: Yes Status: Acute (10) Chronic hypercapnic respiratory failure Current Visit: No Status: Acute Subjective Interval history: cough Objective Vital Signs - 12hr 02/19/19 02/19/19 02/20/19 22:39 23:37 03:56 Temperature 98.6 F Pulse Rate 80 Pulse Rate [ 88 90 Bilateral Throughout] Respiratory 16 Rate Respiratory 18 18 Rate [Bilateral Throughout] Blood Pressure 108/68 O2 Sat by Pulse 98 98 Oximetry 02/20/19 02/20/19 04:58 07:16 Temperature 98.1 F 97.9 F Pulse Rate 85 83 Pulse Rate [ Bilateral Throughout] Respiratory 19 20 Rate Respiratory Rate [Bilateral Throughout] Blood Pressure 107/59 99/70 O2 Sat by Pulse 100 99 Oximetry Constitutional: no acute distress, alert, other (obese) Eyes: non-icteric ENT: oropharynx moist Neck: supple Ascultation: Bilateral: diminished breath sounds Cardiovascular: regular rate and rhythm Gastrointestinal: normoactive bowel sounds, soft, non-tender Integumentary: normal Extremities: no cyanosis Neurologic: normal mental status, non-focal exam Psychiatric: mood appropriate CBC and BMP: 02/20/19 05:16 02/20/19 05:16 ABG, PT/INR, D-dimer: PT/INR, D-dimer PT 12.7 Sec. (12.2-14.9) 02/18/19 12:03 INR 0.96 (0.87-1.13) 02/18/19 12:03 Abnormal lab findings: Abnormal Labs 02/18/19 02/18/19 02/18/19 10:41 10:41 10:53 WBC 18.2 H 18.2 H RBC Hgb MCH 27 L 27 L RDW Plt Count 609 H 609 H Seg Neuts % (Manual) 81.0 H Lymphocytes % (Manual) 12.0 L Monocytes % (Manual) Nucleated RBC % Seg Neutrophils # Man 14.7 H Monocytes # (Manual) Sodium 146 H Potassium Carbon Dioxide 33 H BUN Creatinine 0.6 L Lactic Acid Total Protein Albumin 02/18/19 02/19/19 02/19/19 12:19 05:52 05:52 WBC 14.2 H RBC 3.62 L Hgb 9.8 L MCH 27 L RDW Plt Count 561 H Seg Neuts % (Manual) Lymphocytes % (Manual) Monocytes % (Manual) 11.0 H Nucleated RBC % 1.0 H Seg Neutrophils # Man 8.9 H Monocytes # (Manual) 1.6 H Sodium 146 H Potassium 3.4 L Carbon Dioxide 34 H BUN Creatinine 0.6 L Lactic Acid 2.60 H* Total Protein 5.5 L D Albumin 3.2 L 02/20/19 02/20/19 05:16 05:16 WBC 11.3 H RBC Hgb MCH 27 L RDW 15.3 H Plt Count 574 H Seg Neuts % (Manual) Lymphocytes % (Manual) Monocytes % (Manual) Nucleated RBC % Seg Neutrophils # Man Monocytes # (Manual) Sodium Potassium 3.5 L Carbon Dioxide 35 H BUN 4 L Creatinine 0.5 L Lactic Acid Total Protein Albumin
[2019-02-20] MEDS: guaiFENesin ER 600 MG TAB PO SCH ×2 (09:16→21:17)
[2019-02-20] MEDS: FAMOTIDINE 20 MG TAB PO SCH ×2 (09:16→21:17)
[2019-02-20] MEDS: MONTELUKAST 10 MG TAB PO SCH (09:16)
[2019-02-20] MEDS: ONDANSETRON 4 MG/2 ML INJ IV PRN (09:16)
--- NOTE | 2019-02-20 10:42 | Progress Note ---
Subjective Date of service: 02/20/19 Interval history: Impression Cardiac thakur, looks well today, no changes, awaiting echo Pt known to our practice (Dr. 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 Above co-morbidities will put her at increased risk for resp failure. Objective Vital Signs Temp Pulse Pulse Resp Resp BP Pulse Ox 02/20/19 09:17 76 104/63 100 02/20/19 07:16 97.9 F 83 20 99/70 99 02/20/19 04:58 98.1 F 85 19 107/59 100 02/20/19 03:56 90 18 02/19/19 23:37 98.6 F 80 16 108/68 98 02/19/19 22:39 88 18 98 02/19/19 19:25 97.7 F 94 H 16 123/75 99 02/19/19 16:02 98.0 F 75 18 102/69 100 02/19/19 15:49 82 18 02/19/19 12:08 98.1 F 81 18 126/62 99 - Physical Examination HEENT: Positive: PERRL, EOMI Neck: Positive: neck supple Cardiac: Positive: Reg Rate and Rhythm, S1/S2 Lungs: Positive: Normal Exam Neuro: Positive: Grossly Intact - Labs and Meds CBC 02/20/19 Range/Units 05:16 WBC 11.3 H (4.5-11.0) K/mm3 RBC 3.78 (3.65-5.03) M/mm3 Hgb 10.4 (10.1-14.3) gm/dl Hct 32.6 (30.3-42.9) % Plt Count 574 H (140-440) K/mm3 Comprehensive Metabolic Panel 02/20/19 Range/Units 05:16 Sodium 144 (137-145) mmol/L Potassium 3.5 L (3.6-5.0) mmol/L Chloride 99.5 (98-107) mmol/L Carbon Dioxide 35 H (22-30) mmol/L BUN 4 L (7-17) mg/dL Creatinine 0.5 L (0.7-1.2) mg/dL Glucose 81 (65-100) mg/dL Calcium 8.8 (8.4-10.2) mg/dL
--- NOTE | 2019-02-20 11:40 | Consultation ---
History of Present Illness Consult date: 02/19/19 Reason for consult: other (colo-vaginal fistula) History of present illness: Patient is a 58 year old female who presented to the ED with complaint of feces coming out of her vagina for the past week that appeared to worsen on yesterday. Per CT scan patient has a fistula involving the sigmoid colon and the top of the vaginal cuff. Past History Past Medical History: hypertension, high cholesterol, lung disease, other (CHF, diverticulitis, osteoarthritis) Past Surgical History: colorectal surgery (for bowel obstruction), hysterectomy Family/Genetic History: none Social history: Medications and Allergies Allergies Allergy/AdvReac Type Severity Reaction Status Date / Time Penicillins Allergy Unknown Verified 06/19/16 16:21 Home Medications Medication Instructions Recorded Confirmed Last Taken Type Escitalopram [Lexapro] 10 mg PO ONCE 08/03/18 02/18/19 Unknown History Fexofenadine HCl [Shelly Allergy] 180 mg PO ONCE 08/03/18 02/18/19 Unknown History Omeprazole Magnesium [PriLOSEC Otc] 20 mg PO ONCE 08/03/18 02/18/19 Unknown History Omeprazole Magnesium [PriLOSEC Otc] 20 mg PO ONCE 08/03/18 02/18/19 Unknown History Simethicone [Gas Relief] 125 mg PO ONCE 08/03/18 02/18/19 Unknown History carvediloL [Coreg] 12.5 mg PO ONCE 08/03/18 02/18/19 Unknown History guaiFENesin [Mucinex] 1,200 mg PO PRN 08/03/18 02/18/19 Unknown History ALBUTEROL NEB's [Proventil 0.083% 2.5 mg IH Q4HRT PRN #1 nebu 08/05/18 02/18/19 Unknown Rx NEBS] Arformoterol Nebu [Brovana Nebu] 15 mcg IH Q12HRT #1 ml 08/05/18 02/18/19 Unknown Rx AtorvaSTATin 10 mg PO ONCE #30 tablet 08/05/18 02/18/19 Unknown Rx Budesonide [Pulmicort Respules] 0.25 mg IH Q12HRT #1 nebu 08/05/18 02/18/19 Unknown Rx Famotidine [Pepcid] 20 mg PO BID #60 tablet 08/05/18 02/18/19 Unknown Rx HYDROcodone/APAP 5-325 [[place] 1 each PO Q6H PRN #8 tablet 08/05/18 02/18/19 Unknown Rx 5-325 mg TAB] Montelukast [Singulair] 10 mg PO DAILY #30 tablet 08/05/18 02/18/19 Unknown Rx guaiFENesin ER [Mucinex ER] 600 mg PO BID #10 tablet 08/05/18 02/18/19 Unknown Rx levoFLOXacin [Levaquin TAB] 500 mg PO QDAY #5 tablet 08/05/18 02/18/19 Unknown Rx methylPREDNISolone [Medrol] 4 mg PO QAM #1 tab.ds.pk 08/05/18 02/18/19 Unknown Rx Levalbuterol [Xopenex] 0.63 mg IH Q4H PRN #1 box 12/04/18 02/18/19 Unknown Rx Albuterol Sulfate [Albuterol 0.63% 0.63 mg IH Q4HR PRN #2 ml 01/03/19 02/18/19 Unknown Rx NEBS] Albuterol Sulfate [Proair 90 mcg IH Q4HR PRN #2 aer.pow.ba 01/03/19 02/18/19 Unknown Rx Respiclick] DOXYCYCLINE Hyclate [Vibramycin] 100 mg PO Q12HR #14 capsule 01/03/19 02/18/19 Unknown Rx Ipratropium (Nf) [Atrovent] 2 puff IH Q6HR PRN #1 inha 01/03/19 02/18/19 Unknown Rx Ipratropium [Atrovent NEB] 0.5 mg IH Q4HR #2 ml 01/03/19 02/18/19 Unknown Rx methylPREDNISolone [Medrol 4MG 4 mg PO QDAY #1 tab.ds.pk 01/03/19 02/18/19 Unknown Rx DOSEPAK (21 tabs)] Active Meds: Active Medications Acetaminophen (Tylenol) 650 mg PO Q4H PRN PRN Reason: Pain MILD(1-3)/Fever >100.5/TOVAR Albuterol (Proventil) 2.5 mg IH Q4HRT PRN PRN Reason: Shortness Of Breath Arformoterol Tartrate (Brovana Nebu) 15 mcg IH Q12HRT BUTCH Last Admin: 02/19/19 22:36 Dose: 15 mcg Documented by: Atorvastatin Calcium (Atorvastatin) 10 mg PO ONCE [facility] Budesonide (Pulmicort) 0.5 mg IH Q12HRT [facility] Last Admin: 02/19/19 22:36 Dose: 0.5 mg Documented by: Famotidine (Pepcid) 20 mg PO BID [facility] Last Admin: 02/20/19 09:16 Dose: 20 mg Documented by: Guaifenesin (Mucinex Er) 600 mg PO BID [facility] Last Admin: 02/20/19 09:16 Dose: 600 mg Documented by: Levofloxacin/Dextrose (Levaquin 500mg/100ml) 500 mg in 100 mls @ 100 mls/hr IV Q24H [facility]; Protocol Last Admin: 02/19/19 15:32 Dose: 100 mls/hr Documented by: Metronidazole (Flagyl 500 Mg/100 Ml) 500 mg in 100 mls @ 100 mls/hr IV Q8H [facility]; Protocol Last Admin: 02/20/19 09:16 Dose: 100 mls/hr Documented by: Ipratropium [place] (Atrovent) 0.5 mg IH Q6HRT [facility] Last Admin: 02/20/19 03:56 Dose: 0.5 mg Documented by: Montelukast Sodium (Singulair) 10 mg PO DAILY [facility] Last Admin: 02/20/19 09:16 Dose: 10 mg Documented by: Morphine Sulfate (Morphine) 2 mg IV Q4H PRN PRN Reason: Pain, Moderate (4-6) Last Admin: 02/20/19 02:11 Dose: 2 mg Documented by: Ondansetron HCl (Zofran) 4 mg IV Q6H PRN PRN Reason: Nausea And Vomiting Last Admin: 02/20/19 09:16 Dose: 4 mg Documented by: Sodium Chloride (Sodium Chloride Flush Syringe 10 Ml) 10 ml IV BID [facility] Last Admin: 02/20/19 09:16 Dose: 10 ml Documented by: Sodium Chloride (Sodium Chloride Flush Syringe 10 Ml) 10 ml IV PRN PRN PRN Reason: LINE FLUSH Sodium Chloride (Gantt Saline) 1 applic NS PRN PRN PRN Reason: Dry Nasal Passages Last Admin: 02/20/19 00:37 Dose: 1 applic Documented by: Review of Systems All systems: negative Constitutional: fever, chills, weakness, malaise Cardiovascular: edema, leg edema Respiratory: cough, shortness of breath Gastrointestinal: abdominal pain, diarrhea, change in bowel habits Genitourinary: other (loss of feces through vagina) Musculoskeletal: arthritis - Vital Signs Vital signs: Vital Signs Temp Pulse Resp BP Pulse Ox 98.3 F 79 22 148/82 100 02/18/19 10:43 02/18/19 10:43 02/18/19 10:43 02/18/19 10:43 02/18/19 10:43 Temp Pulse Resp BP Pulse Ox 97.9 F 76 20 104/63 100 02/20/19 07:16 02/20/19 09:17 02/20/19 07:16 02/20/19 09:17 02/20/19 09:17 - Physical Exam Breasts: Positive: deferred Cardiovascular: Regular rate, No murmurs Lungs: Positive: Other (decreased air movement) Abdomen: Positive: soft, other (midline vertical scar) Genitourinary (Female): Positive: normal external genitalia Vagina: Positive: other (deferred) Uterus: Positive: absent Results Result Diagrams: 02/20/19 05:16 02/20/19 05:16 Abnormal lab results 02/19/19 02/20/19 02/20/19 Range/Units 05:52 05:16 05:16 WBC 11.3 H (4.5-11.0) K/mm3 MCH 27 L (28-32) pg RDW 15.3 H (13.2-15.2) % Plt Count 574 H (140-440) K/mm3 Monocytes % (Manual) 11.0 H (0.0-7.3) % Nucleated RBC % 1.0 H (0.0-0.9) % Seg Neutrophils # Man 8.9 H (1.8-7.7) K/mm3 Monocytes # (Manual) 1.6 H (0.0-0.8) K/mm3 Potassium 3.5 L (3.6-5.0) mmol/L Carbon Dioxide 35 H (22-30) mmol/L BUN 4 L (7-17) mg/dL Creatinine 0.5 L (0.7-1.2) mg/dL All other labs normal. Assessment and Plan Pt presents with multiple medical issues and current colo-vaginal fistula. Patient also has a history of multiple abdominal surgeries including bowel resection in 2010, for which she does not recall "what was actually done". Fistula of this magnitude is out of scope of general gynecology. Will defer all surgical management to general surgery and GI. Thank you
--- NOTE | 2019-02-20 14:03 | Progress Note ---
Assessment and Plan - Patient Problems (1) Colovaginal fistula Current Visit: Yes Status: Acute Plan to address problem: Pt stable. Fistula is clearly seen on CT scan. She will eventually require operative correction. Prior to that, she will need a colon evaluation by GI. She'll need preoperative evaluation and optimization by pulmonary and cardi ology. Surgery does not need to occur during this admission. Once all of her preoperative workup is complete, she may be discharged. We will schedule her for elective surgery. I have also offered that she may see a colorectal surgeon if she chooses. We feel comfortable taking care of this problem, but I wanted her to have options. D/W Dr. Graves. Will follow along. Please call with questions. time=10min Subjective Date of service: 02/20/19 Patient Reports: Positive: no new complaints, feels better, still having pain (n ow some back pain today). Negative: nausea, vomiting Objective Vital Signs - 12hr 02/20/19 02/20/19 02/20/19 03:56 04:58 07:16 Temperature 98.1 F 97.9 F Pulse Rate 85 83 Pulse Rate [ 90 Bilateral Throughout] Respiratory 19 20 Rate Respiratory 18 Rate [Bilateral Throughout] Blood Pressure 107/59 99/70 O2 Sat by Pulse 100 99 Oximetry 02/20/19 02/20/19 09:17 11:32 Temperature 97.4 F L Pulse Rate 76 79 Pulse Rate [ Bilateral Throughout] Respiratory 18 Rate Respiratory Rate [Bilateral Throughout] Blood Pressure 104/63 107/70 O2 Sat by Pulse 100 99 Oximetry - General physical appearance no distress, no pain, other (sitting up at side of bed) - Respiratory normal expansion, normal respiratory effort - Abdomen soft, tender (mild in upper abd), not guarding, not rigid - Integumentary no rash, no growths, no abnormal pigmentation - Psychiatric oriented to time, oriented to person, oriented to place, speech is normal, me rohit intact - Labs 02/20/19 05:16 02/20/19 05:16 Diabetes panel 02/20/19 Range/Units 05:16 Sodium 144 (137-145) mmol/L Potassium 3.5 L (3.6-5.0) mmol/L Chloride 99.5 (98-107) mmol/L Carbon Dioxide 35 H (22-30) mmol/L BUN 4 L (7-17) mg/dL Creatinine 0.5 L (0.7-1.2) mg/dL Glucose 81 (65-100) mg/dL Calcium 8.8 (8.4-10.2) mg/dL Calcium panel 02/20/19 Range/Units 05:16 Calcium 8.8 (8.4-10.2) mg/dL Pituitary panel 02/20/19 Range/Units 05:16 Sodium 144 (137-145) mmol/L Potassium 3.5 L (3.6-5.0) mmol/L Chloride 99.5 (98-107) mmol/L Carbon Dioxide 35 H (22-30) mmol/L BUN 4 L (7-17) mg/dL Creatinine 0.5 L (0.7-1.2) mg/dL Glucose 81 (65-100) mg/dL Calcium 8.8 (8.4-10.2) mg/dL Adrenal panel 02/20/19 Range/Units 05:16 Sodium 144 (137-145) mmol/L Potassium 3.5 L (3.6-5.0) mmol/L Chloride 99.5 (98-107) mmol/L Carbon Dioxide 35 H (22-30) mmol/L BUN 4 L (7-17) mg/dL Creatinine 0.5 L (0.7-1.2) mg/dL Glucose 81 (65-100) mg/dL Calcium 8.8 (8.4-10.2) mg/dL
--- NOTE | 2019-02-20 16:02 | Gastroenterology Progress Note ---
Assessment and Plan - Patient Problems (1) Rectovaginal fistula Current Visit: Yes Status: Acute Plan to address problem: - Likely related to underlying diverticular disease, but can not exclude malignancy. - Discussed with surgery, and since last colonoscopy > 5 years ago, will plan repeat colonoscopy to evaluate at least the sigmoid. - Respiratory status better (now on 4L, not 6L), and TTE done/pending (suspect OK, since nearly normal in 2017). - Discussed with patient, that if significant adhesions present, or RV fistula severe, that there is an increased risk of a post-operative colostomy; also discussed the risks of any interventions with her significant pulmonary disease, and the possibility of a trach if unable to wean from vent. - Will continue broad-spectrum abx for now, and clear liquids; may need TPN depending on duration of clear liquid diet. - Will attempt colonoscopy (likely just sigmoidoscopy) on Friday if clinical improvement continues, to exclude malignancy. Subjective Date of service: 02/20/19 Principal diagnosis: RV Fistula Interval history: The patient's abdominal pain is better. She is still stooling from the vagina. She has no blood in the BM, and no fevers or chills. Objective - Constitutional Vitals: Temp Pulse Resp BP Pulse Ox 97.4 F L 79 18 107/70 99 02/20/19 11:32 02/20/19 11:32 02/20/19 11:32 02/20/19 11:32 02/20/19 11:32 General appearance: no acute distress - Respiratory Respiratory effort: normal Respiratory: bilateral: diminished - Cardiovascular Rhythm: regular Heart Sounds: Present: S1 & S2 - Gastrointestinal General gastrointestinal: Present: soft, non-tender, non-distended - Labs CBC & Chem 7: 02/20/19 05:16 02/20/19 05:16 Labs: Laboratory Results - last 24 hr 02/20/19 02/20/19 05:16 05:16 WBC 11.3 H RBC 3.78 Hgb 10.4 Hct 32.6 MCV 86 MCH 27 L MCHC 32 RDW 15.3 H Plt Count 574 H Sodium 144 Potassium 3.5 L Chloride 99.5 Carbon Dioxide 35 H Anion Gap 13 BUN 4 L Creatinine 0.5 L Estimated GFR > 60 BUN/Creatinine Ratio 8 Glucose 81 Calcium 8.8
[2019-02-20] MEDS: ARFORMOTEROL 15 MCG/2 ML NEBU IH SCH ×2 (20:06→20:07)
[2019-02-20] MEDS: BUDESONIDE 0.5 MG/2 ML NEBU IH SCH ×2 (20:06→20:07)
[2019-02-20] MEDS: HEPARIN 5,000 UNIT/1 ML VIAL SUB-Q SCH (21:17)
--- NOTE | 2019-02-20 21:58 | XRay Report ---
CHEST 1 VIEW INDICATION / CLINICAL INFORMATION: SOB. COMPARISON: 01/03/2019 FINDINGS: SUPPORT DEVICES: None. HEART / MEDIASTINUM: Unchanged LUNGS / PLEURA: There is hyperinflation the lungs. Mild linear parenchymal density in the right lung base likely representing atelectasis.. No pneumothorax. ADDITIONAL FINDINGS: No significant additional findings. IMPRESSION: 1. There is hyperinflation of the lungs. There is mild linear atelectasis in the right base. Signer Name: Arturo Peralta MD Signed: 02/20/2019 9:53 PM Workstation Name: [id number]
[2019-02-20] MEDS: methylPREDNISolone 4 MG TAB PO SCH (23:06)
[2019-02-21] MEDS: metroNIDAZOLE/NS 500 MG/100 ML 500 MG/100 ML BAG IV SCH ×3 (01:03→15:13)
[2019-02-21] MEDS: MORPHINE 2 MG/1 ML INJ IV PRN ×2 (02:49→13:53)
[2019-02-21] MEDS: IPRATROPIUM 0.02% NEBU 2.5 ML IH SCH ×4 (03:06→21:46)
[2019-02-21] MEDS: HEPARIN 5,000 UNIT/1 ML VIAL SUB-Q SCH ×3 (05:05→21:45)
[2019-02-21 07:55] LABS: Hematocrit 33.4 % (30.3-42.9); Hemoglobin 10.6 gm/dl (10.1-14.3); Mean Corpuscular HGB Conc 32 % (30-34); Mean Corpuscular Volume 85 fl (79-97); Platelet Count 571 K/mm3 (140-440); Red Blood Count 3.92 M/mm3 (3.65-5.03); Red Cell Distribution Width 15.5 % (13.2-15.2)
[2019-02-21 08:16] LABS: BUN/Creatinine Ratio 10; Blood Urea Nitrogen 4 mg/dL (7-17); Hemolysis Index 29
--- NOTE | 2019-02-21 08:45 | Progress Note ---
Subjective Date of service: 02/21/19 Principal diagnosis: RV Fistula Interval history: Interval history: CV remains stable, no chest pain Echo showed Normal LVEF 50-55%, RV dilatation with normal function, mild TR, mild pulm HTN Impression CV stable, EF improved with mild pulm HTN Prior cardiac history Non-ischemic CMP, EF improved to 45-50% (echo 01/2018) she has Non-obstructive CAD by cath 2007 h/o tobacco abuse COPD on home 02 4L NC on CPAP at home Plan Clinically poor exercise tolerance Above co-morbidities will put her at increased risk for resp failure. Objective Vital Signs Temp Pulse Pulse Resp Resp BP Pulse Ox 02/21/19 07:51 97.9 F 89 18 99/63 98 02/21/19 04:40 97.8 F 100 H 17 116/68 94 02/21/19 03:06 96 H 20 02/21/19 02:49 18 02/21/19 00:56 18 02/21/19 00:10 98.7 F 100 H 18 118/71 96 02/20/19 20:16 74 20 02/20/19 19:22 99.1 F 103 H 16 119/71 95 02/20/19 15:56 97.4 F L 86 18 109/66 96 02/20/19 11:32 97.4 F L 79 18 107/70 99 02/20/19 09:17 76 104/63 100 - Physical Examination HEENT: Positive: PERRL, EOMI Neck: Positive: neck supple Cardiac: Positive: Reg Rate and Rhythm, S1/S2 Lungs: Positive: clear to auscultation Neuro: Positive: Grossly Intact Abdomen: Positive: Soft - Labs and Meds CBC 02/21/19 Range/Units 07:40 WBC 11.4 H (4.5-11.0) K/mm3 RBC 3.92 (3.65-5.03) M/mm3 Hgb 10.6 (10.1-14.3) gm/dl Hct 33.4 (30.3-42.9) % Plt Count 571 H (140-440) K/mm3 Comprehensive Metabolic Panel 02/21/19 Range/Units 07:40 Sodium 143 (137-145) mmol/L Potassium 4.2 (3.6-5.0) mmol/L Chloride 98.1 (98-107) mmol/L Carbon Dioxide 31 H (22-30) mmol/L BUN 4 L (7-17) mg/dL Creatinine 0.4 L (0.7-1.2) mg/dL Glucose 84 (65-100) mg/dL Calcium 9.0 (8.4-10.2) mg/dL
[2019-02-21] MEDS: methylPREDNISolone 4 MG TAB PO SCH (09:03)
[2019-02-21] MEDS: MONTELUKAST 10 MG TAB PO SCH (09:03)
[2019-02-21] MEDS: guaiFENesin ER 600 MG TAB PO SCH ×2 (09:03→21:44)
[2019-02-21] MEDS: FAMOTIDINE 20 MG TAB PO SCH ×2 (09:03→21:44)
--- NOTE | 2019-02-21 09:39 | Progress Note ---
Assessment and Plan - Patient Problems (1) Obesity Current Visit: Yes Status: Acute (2) Chronic respiratory failure Current Visit: Yes Status: Acute (3) CHF (congestive heart failure) Current Visit: Yes Status: Acute Qualifiers: Heart failure type: systolic (4) Colovaginal fistula Current Visit: Yes Status: Acute (5) Diverticulitis large intestine Current Visit: Yes Status: Acute Qualifiers: Diverticulitis bleeding: without bleeding Diverticulitis complication: without perforation or abscess Qualified Code(s): K57.32 - Diverticulitis of large intestine without perforation or abscess without bleeding (6) Leukocytosis Current Visit: Yes Status: Acute Qualifiers: Leukocytosis type: other Qualified Code(s): D72.828 - Other elevated white blood cell count (7) COPD (chronic obstructive pulmonary disease) Current Visit: No Status: Acute Qualifiers: COPD type: unspecified COPD Qualified Code(s): J44.9 - Chronic obstructive pulmonary disease, unspecified (8) PAGE on CPAP Current Visit: Yes Status: Acute (9) Chronic respiratory failure Current Visit: Yes Status: Acute (10) Chronic hypercapnic respiratory failure Current Visit: No Status: Acute Subjective Principal diagnosis: RV Fistula Interval history: feels better Objective Vital Signs - 12hr 02/21/19 02/21/19 02/21/19 00:10 00:56 02:49 Temperature 98.7 F Pulse Rate 100 H Pulse Rate [ Bilateral Throughout] Respiratory 18 18 18 Rate Respiratory Rate [Bilateral Throughout] Blood Pressure 118/71 O2 Sat by Pulse 96 Oximetry 02/21/19 02/21/19 02/21/19 03:06 04:40 07:51 Temperature 97.8 F 97.9 F Pulse Rate 100 H 89 Pulse Rate [ 96 H Bilateral Throughout] Respiratory 17 18 Rate Respiratory 20 Rate [Bilateral Throughout] Blood Pressure 116/68 99/63 O2 Sat by Pulse 94 98 Oximetry Constitutional: no acute distress, alert, other (obese) Eyes: non-icteric ENT: oropharynx moist Neck: supple Ascultation: Bilateral: diminished breath sounds Cardiovascular: regular rate and rhythm Gastrointestinal: normoactive bowel sounds, soft, non-tender Integumentary: normal Extremities: no cyanosis Neurologic: normal mental status, non-focal exam Psychiatric: mood appropriate CBC and BMP: 02/21/19 07:40 02/21/19 07:40 ABG, PT/INR, D-dimer: PT/INR, D-dimer PT 12.7 Sec. (12.2-14.9) 02/18/19 12:03 INR 0.96 (0.87-1.13) 02/18/19 12:03 Abnormal lab findings: Abnormal Labs 02/18/19 02/18/19 02/18/19 10:41 10:41 10:53 WBC 18.2 H 18.2 H RBC Hgb MCH 27 L 27 L RDW Plt Count 609 H 609 H Seg Neuts % (Manual) 81.0 H Lymphocytes % (Manual) 12.0 L Monocytes % (Manual) Nucleated RBC % Seg Neutrophils # Man 14.7 H Monocytes # (Manual) Sodium 146 H Potassium Carbon Dioxide 33 H BUN Creatinine 0.6 L Lactic Acid Total Protein Albumin 02/18/19 02/19/19 02/19/19 12:19 05:52 05:52 WBC 14.2 H RBC 3.62 L Hgb 9.8 L MCH 27 L RDW Plt Count 561 H Seg Neuts % (Manual) Lymphocytes % (Manual) Monocytes % (Manual) 11.0 H Nucleated RBC % 1.0 H Seg Neutrophils # Man 8.9 H Monocytes # (Manual) 1.6 H Sodium 146 H Potassium 3.4 L Carbon Dioxide 34 H BUN Creatinine 0.6 L Lactic Acid 2.60 H* Total Protein 5.5 L D Albumin 3.2 L 02/20/19 02/20/19 02/21/19 05:16 05:16 07:40 WBC 11.3 H 11.4 H RBC Hgb MCH 27 L 27 L RDW 15.3 H 15.5 H Plt Count 574 H 571 H Seg Neuts % (Manual) Lymphocytes % (Manual) Monocytes % (Manual) Nucleated RBC % Seg Neutrophils # Man Monocytes # (Manual) Sodium Potassium 3.5 L Carbon Dioxide 35 H BUN 4 L Creatinine 0.5 L Lactic Acid Total Protein Albumin 02/21/19 07:40 WBC RBC Hgb MCH RDW Plt Count Seg Neuts % (Manual) Lymphocytes % (Manual) Monocytes % (Manual) Nucleated RBC % Seg Neutrophils # Man Monocytes # (Manual) Sodium Potassium Carbon Dioxide 31 H BUN 4 L Creatinine 0.4 L Lactic Acid Total Protein Albumin
[2019-02-21] MEDS: BUDESONIDE 0.5 MG/2 ML NEBU IH SCH ×2 (09:48→21:46)
[2019-02-21] MEDS: ARFORMOTEROL 15 MCG/2 ML NEBU IH SCH ×2 (09:48→21:46)
[2019-02-21] MEDS: carvediloL 3.125 MG TAB PO SCH ×2 (10:15→21:44)
--- NOTE | 2019-02-21 10:41 | Consultation ---
History of Present Illness - Reason for Consult Consult date: 02/21/19 - History of Present Illness 58 yo F PMHx COPD with home O2, pulmonary HTN, HTN, CHF admitted for abdominal pain which began approximately a week prior to admission. She notes associated fecal leakage from the vagina over this time period as well. He symptoms continued to decline over this time period, and her PCP gave her PO antibiotics which did not alleviate the situation. On admission she was found to have diverticulitis with suspected perforation and colovaginal fistula. She otherwise denies fevers, sweats, chills. Surgery planning for outpatient procedure. She presently feels much better, and has minimal abdominal pain. Afebrile since admission with a white count of 11 which has improved. Cultures negative thus far. Currently receiving levofloxacin/metronidazole. Imaging personally reviewed: CTAP - Colovaginal fistula, diverticulitis Review of systems: Bold if positive; otherwise negative GENERAL: fever, chills, weight loss, fatigue, night sweats EYES: blurry vision, eye pain HENT: headache, hearing loss, sore throat, dysphagia, sinus pain CARDIO: chest pain, palpitations, orthopnea PULM: shortness of breath, wheezing, cough, sputum, hemoptysis GI: nausea, vomiting, diarrhea, abdominal pain, blood in stool : urinary frequency, urgency, dysuria, urethral discharge MSK: joint pain, back pain, swelling SKIN: rash, redness HEME: easy bruising, bleeding Past History Past Medical History: COPD (able to walk only 20ft before having SOB), hypertension (Non-ischemic CMP), other (use home o2) Past Surgical History: hysterectomy (total), Other (Exp lap per patient "years ago" for ?obstruction - 2010) Social history: Family history: CAD, hypertension Medications and Allergies Allergies Allergy/AdvReac Type Severity Reaction Status Date / Time Penicillins Allergy Unknown Verified 06/19/16 16:21 Home Medications Medication Instructions Recorded Confirmed Last Taken Type Escitalopram [Lexapro] 10 mg PO ONCE 08/03/18 02/18/19 Unknown History Fexofenadine HCl [Shelly Allergy] 180 mg PO ONCE 08/03/18 02/18/19 Unknown History Omeprazole Magnesium [PriLOSEC Otc] 20 mg PO ONCE 08/03/18 02/18/19 Unknown History Omeprazole Magnesium [PriLOSEC Otc] 20 mg PO ONCE 08/03/18 02/18/19 Unknown History Simethicone [Gas Relief] 125 mg PO ONCE 08/03/18 02/18/19 Unknown History carvediloL [Coreg] 12.5 mg PO ONCE 08/03/18 02/18/19 Unknown History guaiFENesin [Mucinex] 1,200 mg PO PRN 08/03/18 02/18/19 Unknown History ALBUTEROL NEB's [Proventil 0.083% 2.5 mg IH Q4HRT PRN #1 nebu 08/05/18 02/18/19 Unknown Rx NEBS] Arformoterol Nebu [Brovana Nebu] 15 mcg IH Q12HRT #1 ml 08/05/18 02/18/19 Unknown Rx AtorvaSTATin 10 mg PO ONCE #30 tablet 08/05/18 02/18/19 Unknown Rx Budesonide [Pulmicort Respules] 0.25 mg IH Q12HRT #1 nebu 08/05/18 02/18/19 Unknown Rx Famotidine [Pepcid] 20 mg PO BID #60 tablet 08/05/18 02/18/19 Unknown Rx HYDROcodone/APAP 5-325 [[place] 1 each PO Q6H PRN #8 tablet 08/05/18 02/18/19 Unknown Rx 5-325 mg TAB] Montelukast [Singulair] 10 mg PO DAILY #30 tablet 08/05/18 02/18/19 Unknown Rx guaiFENesin ER [Mucinex ER] 600 mg PO BID #10 tablet 08/05/18 02/18/19 Unknown Rx levoFLOXacin [Levaquin TAB] 500 mg PO QDAY #5 tablet 08/05/18 02/18/19 Unknown Rx methylPREDNISolone [Medrol] 4 mg PO QAM #1 tab.ds.pk 08/05/18 02/18/19 Unknown Rx Levalbuterol [Xopenex] 0.63 mg IH Q4H PRN #1 box 12/04/18 02/18/19 Unknown Rx Albuterol Sulfate [Albuterol 0.63% 0.63 mg IH Q4HR PRN #2 ml 01/03/19 02/18/19 Unknown Rx NEBS] Albuterol Sulfate [Proair 90 mcg IH Q4HR PRN #2 aer.pow.ba 01/03/19 02/18/19 Un known Rx Respiclick] DOXYCYCLINE Hyclate [Vibramycin] 100 mg PO Q12HR #14 capsule 01/03/19 02/18/19 Unknown Rx Ipratropium (Nf) [Atrovent] 2 puff IH Q6HR PRN #1 inha 01/03/19 02/18/19 Unknown Rx Ipratropium [Atrovent NEB] 0.5 mg IH Q4HR #2 ml 01/03/19 02/18/19 Unknown Rx methylPREDNISolone [Medrol 4MG 4 mg PO QDAY #1 tab.ds.pk 01/03/19 02/18/19 Unknown Rx DOSEPAK (21 tabs)] Active Meds: Active Medications Acetaminophen (Tylenol) 650 mg PO Q4H PRN PRN Reason: Pain MILD(1-3)/Fever >100.5/TOVAR Last Admin: 02/21/19 00:56 Dose: 650 mg Documented by: Albuterol (Proventil) 2.5 mg IH Q4HRT PRN PRN Reason: Shortness Of Breath Arformoterol Tartrate (Brovana Nebu) 15 mcg IH Q12HRT [facility] Last Admin: 02/21/19 09:48 Dose: 15 mcg Documented by: Atorvastatin Calcium (Atorvastatin) 10 mg PO ONCE BUTCH Budesonide (Pulmicort) 0.5 mg IH Q12HRT [facility] Last Admin: 02/21/19 09:48 Dose: 0.5 mg Documented by: Carvedilol (Coreg) 3.125 mg PO BID BUTCH Famotidine (Pepcid) 20 mg PO BID [facility] Last Admin: 02/21/19 09:03 Dose: 20 mg Documented by: Guaifenesin (Mucinex Er) 600 mg PO BID [facility] Last Admin: 02/21/19 09:03 Dose: 600 mg Documented by: Heparin Sodium (Porcine) (Heparin) 5,000 unit SUB-Q Q8HR [facility] Last Admin: 02/21/19 05:05 Dose: 5,000 unit Documented by: Levofloxacin/Dextrose (Levaquin 500mg/100ml) 500 mg in 100 mls @ 100 mls/hr IV Q24H [facility]; Protocol Last Admin: 02/20/19 17:13 Dose: 100 mls/hr Documented by: Metronidazole (Flagyl 500 Mg/100 Ml) 500 mg in 100 mls @ 100 mls/hr IV Q8H [facility]; Protocol Last Admin: 02/21/19 09:04 Dose: 100 mls/hr Documented by: Ipratropium [place] (Atrovent) 0.5 mg IH Q6HRT [facility] Last Admin: 02/21/19 09:48 Dose: 0.5 mg Documented by: Methylprednisolone (Medrol) 4 mg PO QDAY [facility] Last Admin: 02/21/19 09:03 Dose: 4 mg Documented by: Montelukast Sodium (Singulair) 10 mg PO DAILY [facility] Last Admin: 02/21/19 09:03 Dose: 10 mg Documented by: Morphine Sulfate (Morphine) 2 mg IV Q4H PRN PRN Reason: Pain, Moderate (4-6) Last Admin: 02/21/19 02:49 Dose: 2 mg Documented by: Ondansetron HCl (Zofran) 4 mg IV Q6H PRN PRN Reason: Nausea And Vomiting Last Admin: 02/20/19 09:16 Dose: 4 mg Documented by: Sodium Chloride (Sodium Chloride Flush Syringe 10 Ml) 10 ml IV BID [facility] Last Admin: 02/21/19 09:05 Dose: 10 ml Documented by: Sodium Chloride (Sodium Chloride Flush Syringe 10 Ml) 10 ml IV PRN PRN PRN Reason: LINE FLUSH Sodium Chloride ([place] Saline) 1 applic NS PRN PRN PRN Reason: Dry Nasal Passages Last Admin: 02/20/19 00:37 Dose: 1 applic Documented by: Physical Examination - Physical Exam Narrative exam: General Normal appearance, well developed, no acute distress Eyes - PERRLA, EOM intact ENT - Moist mucous membranes, no lymphadenopathy Neck - No noticeable or palpable swelling, redness or rash around throat or on face Lymph Nodes - No lymphadenopathy Cardiovascular - RRR no m/r/g, no JVD, no carotid bruits Lungs - Clear to auscultation, no use of accessory muscles, no crackles or wheezes. Skin - No rashes, skin warm and dry, no erythematous areas Abdomen - Normal bowel sounds, abdomen soft and + tender Extremities - No edema, cyanosis or clubbing Musculoskeletal - 5/5 strength, normal range of motion, no swollen or erythematous joints. Neurological Alert and oriented x 3, CN 2-12 grossly intact. - Constitutional Vitals: Vital Signs Temp Pulse Resp BP Pulse Ox 97.9 F 89 18 99/63 98 02/21/19 07:51 02/21/19 07:51 02/21/19 07:51 02/21/19 07:51 02/21/19 07:51 Temperature -Last 24 Hours Temperature 97.9 F Temperature 97.8 F Temperature 98.7 F Temperature 99.1 F Temperature 97.4 F Temperature 97.4 F Results - Labs CBC & Chem 7: 02/21/19 07:40 02/21/19 07:40 Labs: Abnormal lab results 02/21/19 02/21/19 Range/Units 07:40 07:40 WBC 11.4 H (4.5-11.0) K/mm3 MCH 27 L (28-32) pg RDW 15.5 H (13.2-15.2) % Plt Count 571 H (140-440) K/mm3 Carbon Dioxide 31 H (22-30) mmol/L BUN 4 L (7-17) mg/dL Creatinine 0.4 L (0.7-1.2) mg/dL Assessment and Plan Cultures Blood culture 02/18/2019 no growth to date Urine culture 02/18/2019 no growth to date Assessment: 58 yo F PMHx COPD with home O2, pulmonary HTN, HTN, CHF admitted with diverticulitis and colovaginal fistula 1. Diverticulitis - continue levofloxacin and metronidazole for now 2. Colovaginal fistula - plans for repair after cardiac optimization. 3. COPD on home O2 4. CHF Recs: - continue levofloxacin and metronidazole. Duration pending potential surgical plan, possibly continue through the surgery. Dr. Mireles taking over tomorrow. Thank you for the consult, we will continue to follow. [facility] M: [phone] O: [phone] F: [phone]
--- NOTE | 2019-02-21 13:51 | Progress Note ---
Assessment and Plan - Patient Problems (1) Colovaginal fistula Current Visit: Yes Status: Acute Plan to address problem: Pt stable. Fistula is clearly seen on CT scan. She will eventually require operative correction. Prior to that, she will need a colon evaluation by GI. She'll need preoperative evaluation and optimization by pulmonary and cardi ology. Pt reports that she is scheduled for c-scope tomorrow. Will follow-up on the results. Surgery does not need to occur during this admission. Once all of her preoperative workup is complete, she may be discharged. We will schedule her for elective surgery. I have also offered that she may see a colorectal surgeon if she chooses. We feel comfortable taking care of this problem, but I wanted her to have options. Spoke with today at the bedside. All of his questions were answered. Will follow along. Please call with questions. time=10min Subjective Date of service: 02/21/19 Patient Reports: Positive: no new complaints, feels better, pain is less Objective Vital Signs - 12hr 02/21/19 02/21/19 02/21/19 02:49 03:06 04:40 Temperature 97.8 F Pulse Rate 100 H Pulse Rate [ 96 H Bilateral Throughout] Respiratory 18 17 Rate Respiratory 20 Rate [Bilateral Throughout] Blood Pressure 116/68 O2 Sat by Pulse 94 Oximetry 02/21/19 02/21/19 02/21/19 07:51 10:33 10:34 Temperature 97.9 F Pulse Rate 89 Pulse Rate [ 89 Bilateral Throughout] Respiratory 18 Rate Respiratory 20 Rate [Bilateral Throughout] Blood Pressure 99/63 O2 Sat by Pulse 98 100 Oximetry 02/21/19 02/21/19 12:31 13:30 Temperature 98.0 F Pulse Rate 83 Pulse Rate [ 88 Bilateral Throughout] Respiratory 18 Rate Respiratory 18 Rate [Bilateral Throughout] Blood Pressure 102/65 O2 Sat by Pulse 97 Oximetry - General physical appearance no distress, no pain, other (looks well) - Respiratory normal expansion, normal respiratory effort - Abdomen soft, not guarding, not rigid - Integumentary no rash, no growths, no abnormal pigmentation - Psychiatric oriented to time, oriented to person, oriented to place, speech is normal, memory intact - Labs 02/21/19 07:40 02/21/19 07:40 Diabetes panel 02/21/19 Range/Units 07:40 Sodium 143 (137-145) mmol/L Potassium 4.2 (3.6-5.0) mmol/L Chloride 98.1 (98-107) mmol/L Carbon Dioxide 31 H (22-30) mmol/L BUN 4 L (7-17) mg/dL Creatinine 0.4 L (0.7-1.2) mg/dL Glucose 84 (65-100) mg/dL Calcium 9.0 (8.4-10.2) mg/dL Calcium panel 02/21/19 Range/Units 07:40 Calcium 9.0 (8.4-10.2) mg/dL Pituitary panel 02/21/19 Range/Units 07:40 Sodium 143 (137-145) mmol/L Potassium 4.2 (3.6-5.0) mmol/L Chloride 98.1 (98-107) mmol/L Carbon Dioxide 31 H (22-30) mmol/L BUN 4 L (7-17) mg/dL Creatinine 0.4 L (0.7-1.2) mg/dL Glucose 84 (65-100) mg/dL Calcium 9.0 (8.4-10.2) mg/dL Adrenal panel 02/21/19 Range/Units 07:40 Sodium 143 (137-145) mmol/L Potassium 4.2 (3.6-5.0) mmol/L Chloride 98.1 (98-107) mmol/L Carbon Dioxide 31 H (22-30) mmol/L BUN 4 L (7-17) mg/dL Creatinine 0.4 L (0.7-1.2) mg/dL Glucose 84 (65-100) mg/dL Calcium 9.0 (8.4-10.2) mg/dL
--- NOTE | 2019-02-21 14:26 | Gastroenterology Progress Note ---
Assessment and Plan - Patient Problems (1) Rectovaginal fistula Current Visit: Yes Status: Acute Plan to address problem: - Likely related to underlying diverticular disease, but can not exclude malignancy. - Discussed with surgery, and since last colonoscopy > 5 years ago, will plan repeat colonoscopy tomorrow to evaluate at least the sigmoid. - Respiratory status better (now on 4L, not 6L), and TTE acceptable. - Discussed with patient, that if significant adhesions present, or RV fistula severe, that there is an increased risk of a post-operative colostomy; also discussed the risks of any interventions with her significant pulmonary disease, and the possibility of a trach if unable to wean from vent. - Will continue broad-spectrum abx for now, and clear liquids; may need TPN depending on duration of clear liquid diet. - Will attempt colonoscopy (likely just sigmoidoscopy) on Friday Subjective Date of service: 02/21/19 Principal diagnosis: RV Fistula Interval history: The patient's abdominal pain is improved (minimal) and she has no blood in the stool per vagina. Her WBC is normal, and she has no fevers. She is tolerating her clear liquid diet without emesis or pain. Objective - Constitutional Vitals: Temp Pulse Resp BP Pulse Ox 98.0 F 88 18 102/65 97 02/21/19 12:31 02/21/19 13:30 02/21/19 13:30 02/21/19 12:31 02/21/19 12:31 General appearance: no acute distress - Respiratory Respiratory effort: normal Respiratory: bilateral: diminished - Cardiovascular Rhythm: regular Heart Sounds: Present: S1 & S2 - Gastrointestinal General gastrointestinal: Present: soft, non-tender, non-distended - Labs CBC & Chem 7: 02/21/19 07:40 02/21/19 07:40 Labs: Laboratory Results - last 24 hr 02/21/19 02/21/19 07:40 07:40 WBC 11.4 H RBC 3.92 Hgb 10.6 Hct 33.4 MCV 85 MCH 27 L MCHC 32 RDW 15.5 H Plt Count 571 H Sodium 143 Potassium 4.2 Chloride 98.1 Carbon Dioxide 31 H Anion Gap 18 BUN 4 L Creatinine 0.4 L Estimated GFR > 60 BUN/Creatinine Ratio 10 Glucose 84 Calcium 9.0
[2019-02-21] MEDS: ONDANSETRON 4 MG/2 ML INJ IV PRN (15:13)
[2019-02-21] MEDS ORDERED: POLYETHYLENE GLYCOL/ELECT SOLN 4000 ML PO ONE (16:30)
[2019-02-22] MEDS: metroNIDAZOLE/NS 500 MG/100 ML 500 MG/100 ML BAG IV SCH ×4 (00:27→23:00)
--- NOTE | 2019-02-22 00:53 | Progress Note ---
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 Phillips. Patient will need corrective surgery but first will need colonoscopy and clearance from Cardiology and Pulmonology CHF (congestive heart failure) Cardiology consulted in ED, BNP, Chest x ray, diuresis, afterload reduction, monitor uop q shift, daily weight, supplemental oxygen, Leukocytosis likely due to SIRS SIRS (systemic inflammatory response syndrome) CBC, CMP, Urinalysis, chext x ray, Iv antibiotic therapy consult ID Diverticulitis large intestine Diverticulitis with Fistula formation: IV antibiotic therapy, IVF resuscitation therapy, CT Abdomen/Pelvis, CBC, CMP, serial abdominal exam, Surgery team consulted, GI team consulted, as well as CUSTOMER LIAISON team. Chronic hypercapnic respiratory failure Supplemental oxygen, nebulizer therapy, IV steroid therapy, pulse oximetry, Chest x ray, NIPPV as clinically indicated. Pulmonary team consulted, following Hypertension) Monitor bp q shift, continue medical management Hyperlipidemia) balanced diet, low cholesterol diet, History Interval history: Feces coming through vagina Hospitalist Physical - Physical exam Narrative exam: Gen: Not in acute distress, lying in bed, HEENT: Normocephalic, atraumatic Neck: supple, no JVD Heart: S1 and S2 reg, no murmurs, rubs or gallop Lungs: Clear, no crackles, No wheeze Abd: soft, non tender, non distended, normal BS, Ext: No edema, no clubbing, no cyanosis Neuro: Awake, alert, oriented X 3, moves all ext - Constitutional Vitals: Temp Pulse Resp BP Pulse Ox 98.4 F 86 20 108/69 95 02/21/19 23:25 02/21/19 23:25 02/21/19 23:25 02/21/19 23:25 02/21/19 23:25 General appearance: Present: no acute distress Results - Labs CBC & Chem 7: 02/21/19 07:40 02/21/19 07:40 Labs: Laboratory Last Values WBC 11.4 K/mm3 (4.5-11.0) H 02/21/19 07:40 RBC 3.92 M/mm3 (3.65-5.03) 02/21/19 07:40 Hgb 10.6 gm/dl (10.1-14.3) 02/21/19 07:40 Hct 33.4 % (30.3-42.9) 02/21/19 07:40 MCV 85 fl (79-97) 02/21/19 07:40 MCH 27 pg (28-32) L 02/21/19 07:40 MCHC 32 % (30-34) 02/21/19 07:40 RDW 15.5 % (13.2-15.2) H 02/21/19 07:40 Plt Count 571 K/mm3 (140-440) H 02/21/19 07:40 Add Manual Diff Complete 02/19/19 05:52 Total Counted 100 02/19/19 05:52 Seg Neuts % (Manual) 63.0 % (40.0-70.0) 02/19/19 05:52 Band Neutrophils % 1.0 % 02/19/19 05:52 Lymphocytes % (Manual) 25.0 % (13.4-35.0) 02/19/19 05:52 Reactive Lymphs % (Man) 0 % 02/19/19 05:52 Monocytes % (Manual) 11.0 % (0.0-7.3) H 02/19/19 05:52 Eosinophils % (Manual) 0 % (0.0-4.3) 02/19/19 05:52 Basophils % (Manual) 0 % (0.0-1.8) 02/19/19 05:52 Metamyelocytes % 0 % 02/19/19 05:52 Myelocytes % 0 % 02/19/19 05:52 Promyelocytes % 0 % 02/19/19 05:52 Blast Cells % 0 % 02/19/19 05:52 Nucleated RBC % 1.0 % (0.0-0.9) H 02/19/19 05:52 Seg Neutrophils # Man 8.9 K/mm3 (1.8-7.7) H 02/19/19 05:52 Band Neutrophils # 0.1 K/mm3 02/19/19 05:52 Lymphocytes # (Manual) 3.6 K/mm3 (1.2-5.4) 02/19/19 05:52 Abs React Lymphs (Man) 0.0 K/mm3 02/19/19 05:52 Monocytes # (Manual) 1.6 K/mm3 (0.0-0.8) H 02/19/19 05:52 Eosinophils # (Manual) 0.0 K/mm3 (0.0-0.4) 02/19/19 05:52 Basophils # (Manual) 0.0 K/mm3 (0.0-0.1) 02/19/19 05:52 Metamyelocytes # 0.0 K/mm3 02/19/19 05:52 Myelocytes # 0.0 K/mm3 02/19/19 05:52 Promyelocytes # 0.0 K/mm3 02/19/19 05:52 Blast Cells # 0.0 K/mm3 02/19/19 05:52 WBC Morphology Not Reportable 02/19/19 05:52 Hypersegmented Neuts Not Reportable 02/19/19 05:52 Hyposegmented Neuts Not Reportable 02/19/19 05:52 Hypogranular Neuts Not Reportable 02/19/19 05:52 Smudge Cells Not Reportable 02/19/19 05:52 Toxic Granulation Not Reportable 02/19/19 05:52 Toxic Vacuolation Not Reportable 02/19/19 05:52 Dohle Bodies Not Reportable 02/19/19 05:52 Pelger-Huet Anomaly Not Reportable 02/19/19 05:52 Florentino Rods Not Reportable 02/19/19 05:52 Platelet Estimate Consistent w auto 02/19/19 05:52 Clumped Platelets Not Reportable 02/19/19 05:52 Plt Clumps, EDTA Not Reportable 02/19/19 05:52 Large Platelets Not Reportable 02/19/19 05:52 Giant Platelets Not Reportable 02/19/19 05:52 Platelet Satelliting Not Reportable 02/19/19 05:52 Plt Morphology Comment Not Reportable 02/19/19 05:52 RBC Morphology Not Reportable 02/19/19 05:52 Dimorphic RBCs Not Reportable 02/19/19 05:52 Polychromasia Not Reportable 02/19/19 05:52 Hypochromasia Not Reportable 02/19/19 05:52 Poikilocytosis Not Reportable 02/19/19 05:52 Anisocytosis 1+ 02/19/19 05:52 Microcytosis Not Reportable 02/19/19 05:52 Macrocytosis Not Reportable 02/19/19 05:52 Spherocytes Not Reportable 02/19/19 05:52 Pappenheimer Bodies Not Reportable 02/19/19 05:52 Sickle Cells Not Reportable 02/19/19 05:52 Target Cells Not Reportable 02/19/19 05:52 Tear Drop Cells Not Reportable 02/19/19 05:52 Ovalocytes Not Reportable 02/19/19 05:52 Helmet Cells Not Reportable 02/19/19 05:52 [place] Bodies Not Reportable 02/19/19 05:52 Bernice Rings Not Reportable 02/19/19 05:52 [place] Cells Not Reportable 02/19/19 05:52 Bite Cells Not Reportable 02/19/19 05:52 Crenated Cell Not Reportable 02/19/19 05:52 Elliptocytes Not Reportable 02/19/19 05:52 Acanthocytes (Spur) Not Reportable 02/19/19 05:52 Rouleaux Not Reportable 02/19/19 05:52 Hemoglobin C Crystals Not Reportable 02/19/19 05:52 Schistocytes Not Reportable 02/19/19 05:52 Malaria parasites Not Reportable 02/19/19 05:52 Maykel Bodies Not Reportable 02/19/19 05:52 Hem Pathologist Commnt No 02/19/19 05:52 PT 12.7 Sec. (12.2-14.9) 02/18/19 12:03 INR 0.96 (0.87-1.13) 02/18/19 12:03 APTT 25.0 Sec. (24.2-36.6) 02/18/19 12:03 Sodium 143 mmol/L (137-145) 02/21/19 07:40 Potassium 4.2 mmol/L (3.6-5.0) 02/21/19 07:40 Chloride 98.1 mmol/L (98-107) 02/21/19 07:40 Carbon Dioxide 31 mmol/L (22-30) H 02/21/19 07:40 Anion Gap 18 mmol/L 02/21/19 07:40 BUN 4 mg/dL (7-17) L 02/21/19 07:40 Creatinine 0.4 mg/dL (0.7-1.2) L 02/21/19 07:40 Estimated GFR > 60 ml/min 02/21/19 07:40 BUN/Creatinine Ratio 10 % 02/21/19 07:40 Glucose 84 mg/dL (65-100) 02/21/19 07:40 Lactic Acid 0.70 mmol/L (0.7-2.0) 02/18/19 14:17 Calcium 9.0 mg/dL (8.4-10.2) 02/21/19 07:40 Magnesium 2.00 mg/dL (1.7-2.3) 02/18/19 12:03 Total Bilirubin < 0.20 mg/dL (0.1-1.2) 02/19/19 05:52 AST 13 units/L (5-40) 02/19/19 05:52 ALT 14 units/L (7-56) 02/19/19 05:52 Alkaline Phosphatase 49 units/L (35-129) 02/19/19 05:52 NT-Pro-B Natriuret Pep 52.06 pg/mL (0-900) 02/18/19 12:03 Total Protein 5.5 g/dL (6.3-8.2) L D 02/19/19 05:52 Albumin 3.2 g/dL (3.9-5) L 02/19/19 05:52 Albumin/Globulin Ratio 1.4 % 02/19/19 05:52 Urine Color Yellow (Yellow) 02/18/19 12:09 Urine Turbidity Clear (Clear) 02/18/19 12:09 Urine pH 6.0 (5.0-7.0) 02/18/19 12:09 Ur Specific [place] 1.014 (1.003-1.030) 02/18/19 12:09 Urine Protein <15 mg/dl mg/dL (Negative) 02/18/19 12:09 Urine Glucose (UA) Neg mg/dL (Negative) 02/18/19 12:09 Urine Ketones Neg mg/dL (Negative) 02/18/19 12:09 Urine Blood Neg (Negative) 02/18/19 12:09 Urine Nitrite Neg (Negative) 02/18/19 12:09 Urine Bilirubin Neg (Negative) 02/18/19 12:09 Urine Urobilinogen < 2.0 mg/dL (<2.0) 02/18/19 12:09 Ur Leukocyte Esterase Tr (Negative) 02/18/19 12:09 Urine WBC (Auto) 1.0 /HPF (0.0-6.0) 02/18/19 12:09 Urine RBC (Auto) 3.0 /HPF (0.0-6.0) 02/18/19 12:09 Active Medications - Current Medications Current Medications: Generic Name Dose Route Start Last Admin Trade Name Freq PRN Reason Stop Dose Admin Acetaminophen 650 mg 02/18/19 15:05 02/21/19 00:56 Tylenol PO 650 mg Q4H PRN Administration Pain MILD(1-3)/Fever >100.5/TOVAR Albuterol 2.5 mg 02/18/19 15:05 Proventil IH Q4HRT PRN Shortness Of Breath Arformoterol Tartrate 15 mcg 02/18/19 20:00 02/21/19 21:46 Brovana Nebu IH 15 mcg Q12HRT BUTCH Administration Atorvastatin Calcium 10 mg 02/18/19 15:15 Atorvastatin PO ONCE BUTCH Budesonide 0.5 mg 02/19/19 09:00 02/21/19 21:46 Pulmicort IH 0.5 mg Q12HRT BUTCH Administration Carvedilol 3.125 mg 02/21/19 10:00 02/21/19 21:44 Coreg PO 3.125 mg BID BUTCH Administration Famotidine 20 mg 02/18/19 22:00 02/21/19 21:44 Pepcid PO 20 mg BID BUTCH Administration Guaifenesin 600 mg 02/18/19 22:00 02/21/19 21:44 Mucinex Er PO 600 mg BID BUTCH Administration Heparin Sodium (Porcine) 5,000 unit 02/20/19 22:00 02/21/19 21:45 Heparin SUB-Q 5,000 unit Q8HR BUT[facility] Administration Levofloxacin/Dextrose 500 mg in 100 mls @ 100 mls/hr 02/18/19 16:00 02/21/19 15:13 Levaquin 500mg/100ml IV 100 mls/hr Q24H BUT[facility] Administration Protocol Metronidazole 500 mg in 100 mls @ 100 mls/hr 02/18/19 16:00 02/22/19 00:27 Flagyl 500 Mg/100 Ml IV 100 mls/hr Q8H BUTCH Administration Protocol Ipratropium [place] 0.5 mg 02/18/19 20:00 02/21/19 21:46 Atrovent IH 0.5 mg Q6HRT BUTCH Administration Methylprednisolone 4 mg 02/20/19 23:00 02/21/19 09:03 Medrol PO 4 mg QDAY BUTCH Administration Montelukast Sodium 10 mg 02/19/19 10:00 02/21/19 09:03 Singulair PO 10 mg DAILY BUTCH Administration Morphine Sulfate 2 mg 02/18/19 15:05 02/21/19 13:53 Morphine IV 2 mg Q4H PRN Administration Pain, Moderate (4-6) Ondansetron HCl 4 mg 02/20/19 08:36 02/21/19 15:13 Zofran IV 4 mg Q6H PRN Administration Nausea And Vomiting Sodium Chloride 10 ml 02/18/19 22:00 02/21/19 21:47 Sodium Chloride Flush Syringe 10 Ml IV 10 ml BID BUTCH Administration Sodium Chloride 10 ml 02/18/19 15:05 Sodium Chloride Flush Syringe 10 Ml IV PRN PRN LINE FLUSH Sodium Chloride 1 applic 02/19/19 22:19 02/20/19 00:37 Krebs Saline NS 1 applic PRN PRN Administration Dry Nasal Passages
--- NOTE | 2019-02-22 01:02 | Progress Note ---
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 Phillips. Patient will need corrective surgery but first will need colonoscopy and clearance from Cardiology and Pulmonology. Also Dr. Phillips says this can be done elective as outpatient by him or colorectal surgeon. For colonoscopy tomorrow. Chronic systolic CHF EF 45-50% Cardiology consulted in ED, BNP, Chest x ray, diuresis, afterload reduction, monitor uop q shift, daily weight, supplemental oxygen, Leukocytosis likely due to SIRS SIRS (systemic inflammatory response syndrome) CBC, CMP, Urinalysis, chext x ray, Iv antibiotic therapy consulted ID Diverticulitis large intestine Diverticulitis with Fistula formation: IV antibiotic therapy, IVF resuscitation therapy, CT Abdomen/Pelvis, CBC, CMP, serial abdominal exam, Surgery team consulted, GI team consulted, as well as DIRECTOR OF RESEARCH AND DEVELOPMENT team. Chronic hypercapnic respiratory failure Supplemental oxygen, nebulizer therapy, IV steroid therapy, pulse oximetry, Chest x ray, NIPPV as clinically indicated. Pulmonary team consulted, following On home Oxygen at 4l/min, CPAP at night Hypertension) Monitor bp q shift, continue medical management Hyperlipidemia) balanced diet, low cholesterol diet, Poss dc home tomorrow after colonoscopy. History Interval history: Feces coming through vagina No fever Hospitalist Physical - Physical exam Narrative exam: Gen: Not in acute distress, lying in bed, HEENT: Normocephalic, atraumatic Neck: supple, no JVD Heart: S1 and S2 reg, no murmurs, rubs or gallop Lungs: Clear, no crackles, No wheeze Abd: soft, non tender, non distended, normal BS, Ext: No edema, no clubbing, no cyanosis Neuro: Awake, alert, oriented X 3, moves all ext - Constitutional Vitals: Temp Pulse Resp BP Pulse Ox 98.4 F 86 20 108/69 95 02/21/19 23:25 02/21/19 23:25 02/21/19 23:25 02/21/19 23:25 02/21/19 23:25 General appearance: Present: no acute distress Results - Labs CBC & Chem 7: 02/21/19 07:40 02/21/19 07:40 Labs: Laboratory Last Values WBC 11.4 K/mm3 (4.5-11.0) H 02/21/19 07:40 RBC 3.92 M/mm3 (3.65-5.03) 02/21/19 07:40 Hgb 10.6 gm/dl (10.1-14.3) 02/21/19 07:40 Hct 33.4 % (30.3-42.9) 02/21/19 07:40 MCV 85 fl (79-97) 02/21/19 07:40 MCH 27 pg (28-32) L 02/21/19 07:40 MCHC 32 % (30-34) 02/21/19 07:40 RDW 15.5 % (13.2-15.2) H 02/21/19 07:40 Plt Count 571 K/mm3 (140-440) H 02/21/19 07:40 Add Manual Diff Complete 02/19/19 05:52 Total Counted 100 02/19/19 05:52 Seg Neuts % (Manual) 63.0 % (40.0-70.0) 02/19/19 05:52 Band Neutrophils % 1.0 % 02/19/19 05:52 Lymphocytes % (Manual) 25.0 % (13.4-35.0) 02/19/19 05:52 Reactive Lymphs % (Man) 0 % 02/19/19 05:52 Monocytes % (Manual) 11.0 % (0.0-7.3) H 02/19/19 05:52 Eosinophils % (Manual) 0 % (0.0-4.3) 02/19/19 05:52 Basophils % (Manual) 0 % (0.0-1.8) 02/19/19 05:52 Metamyelocytes % 0 % 02/19/19 05:52 Myelocytes % 0 % 02/19/19 05:52 Promyelocytes % 0 % 02/19/19 05:52 Blast Cells % 0 % 02/19/19 05:52 Nucleated RBC % 1.0 % (0.0-0.9) H 02/19/19 05:52 Seg Neutrophils # Man 8.9 K/mm3 (1.8-7.7) H 02/19/19 05:52 Band Neutrophils # 0.1 K/mm3 02/19/19 05:52 Lymphocytes # (Manual) 3.6 K/mm3 (1.2-5.4) 02/19/19 05:52 Abs React Lymphs (Man) 0.0 K/mm3 02/19/19 05:52 Monocytes # (Manual) 1.6 K/mm3 (0.0-0.8) H 02/19/19 05:52 Eosinophils # (Manual) 0.0 K/mm3 (0.0-0.4) 02/19/19 05:52 Basophils # (Manual) 0.0 K/mm3 (0.0-0.1) 02/19/19 05:52 Metamyelocytes # 0.0 K/mm3 02/19/19 05:52 Myelocytes # 0.0 K/mm3 02/19/19 05:52 Promyelocytes # 0.0 K/mm3 02/19/19 05:52 Blast Cells # 0.0 K/mm3 02/19/19 05:52 WBC Morphology Not Reportable 02/19/19 05:52 Hypersegmented Neuts Not Reportable 02/19/19 05:52 Hyposegmented Neuts Not Reportable 02/19/19 05:52 Hypogranular Neuts Not Reportable 02/19/19 05:52 Smudge Cells Not Reportable 02/19/19 05:52 Toxic Granulation Not Reportable 02/19/19 05:52 Toxic Vacuolation Not Reportable 02/19/19 05:52 Dohle Bodies Not Reportable 02/19/19 05:52 Pelger-Huet Anomaly Not Reportable 02/19/19 05:52 Florentino Rods Not Reportable 02/19/19 05:52 Platelet Estimate Consistent w auto 02/19/19 05:52 Clumped Platelets Not Reportable 02/19/19 05:52 Plt Clumps, EDTA Not Reportable 02/19/19 05:52 Large Platelets Not Reportable 02/19/19 05:52 Giant Platelets Not Reportable 02/19/19 05:52 Platelet Satelliting Not Reportable 02/19/19 05:52 Plt Morphology Comment Not Reportable 02/19/19 05:52 RBC Morphology Not Reportable 02/19/19 05:52 Dimorphic RBCs Not Reportable 02/19/19 05:52 Polychromasia Not Reportable 02/19/19 05:52 Hypochromasia Not Reportable 02/19/19 05:52 Poikilocytosis Not Reportable 02/19/19 05:52 Anisocytosis 1+ 02/19/19 05:52 Microcytosis Not Reportable 02/19/19 05:52 Macrocytosis Not Reportable 02/19/19 05:52 Spherocytes Not Reportable 02/19/19 05:52 Pappenheimer Bodies Not Reportable 02/19/19 05:52 Sickle Cells Not Reportable 02/19/19 05:52 Target Cells Not Reportable 02/19/19 05:52 Tear Drop Cells Not Reportable 02/19/19 05:52 Ovalocytes Not Reportable 02/19/19 05:52 Helmet Cells Not Reportable 02/19/19 05:52 [employer] Bodies Not Reportable 02/19/19 05:52 [place] Rings Not Reportable 02/19/19 05:52 [place] Cells Not Reportable 02/19/19 05:52 Bite Cells Not Reportable 02/19/19 05:52 Crenated Cell Not Reportable 02/19/19 05:52 Elliptocytes Not Reportable 02/19/19 05:52 Acanthocytes (Spur) Not Reportable 02/19/19 05:52 Rouleaux Not Reportable 02/19/19 05:52 Hemoglobin C Crystals Not Reportable 02/19/19 05:52 Schistocytes Not Reportable 02/19/19 05:52 Malaria parasites Not Reportable 02/19/19 05:52 [place] Bodies Not Reportable 02/19/19 05:52 Hem Pathologist Commnt No 02/19/19 05:52 PT 12.7 Sec. (12.2-14.9) 02/18/19 12:03 INR 0.96 (0.87-1.13) 02/18/19 12:03 APTT 25.0 Sec. (24.2-36.6) 02/18/19 12:03 Sodium 143 mmol/L (137-145) 02/21/19 07:40 Potassium 4.2 mmol/L (3.6-5.0) 02/21/19 07:40 Chloride 98.1 mmol/L (98-107) 02/21/19 07:40 Carbon Dioxide 31 mmol/L (22-30) H 02/21/19 07:40 Anion Gap 18 mmol/L 02/21/19 07:40 BUN 4 mg/dL (7-17) L 02/21/19 07:40 Creatinine 0.4 mg/dL (0.7-1.2) L 02/21/19 07:40 Estimated GFR > 60 ml/min 02/21/19 07:40 BUN/Creatinine Ratio 10 % 02/21/19 07:40 Glucose 84 mg/dL (65-100) 02/21/19 07:40 Lactic Acid 0.70 mmol/L (0.7-2.0) 02/18/19 14:17 Calcium 9.0 mg/dL (8.4-10.2) 02/21/19 07:40 Magnesium 2.00 mg/dL (1.7-2.3) 02/18/19 12:03 Total Bilirubin < 0.20 mg/dL (0.1-1.2) 02/19/19 05:52 AST 13 units/L (5-40) 02/19/19 05:52 ALT 14 units/L (7-56) 02/19/19 05:52 Alkaline Phosphatase 49 units/L (35-129) 02/19/19 05:52 NT-Pro-B Natriuret Pep 52.06 pg/mL (0-900) 02/18/19 12:03 Total Protein 5.5 g/dL (6.3-8.2) L D 02/19/19 05:52 Albumin 3.2 g/dL (3.9-5) L 02/19/19 05:52 Albumin/Globulin Ratio 1.4 % 02/19/19 05:52 Urine Color Yellow (Yellow) 02/18/19 12:09 Urine Turbidity Clear (Clear) 02/18/19 12:09 Urine pH 6.0 (5.0-7.0) 02/18/19 12:09 Ur Specific [place] 1.014 (1.003-1.030) 02/18/19 12:09 Urine Protein <15 mg/dl mg/dL (Negative) 02/18/19 12:09 Urine Glucose (UA) Neg mg/dL (Negative) 02/18/19 12:09 Urine Ketones Neg mg/dL (Negative) 02/18/19 12:09 Urine Blood Neg (Negative) 02/18/19 12:09 Urine Nitrite Neg (Negative) 02/18/19 12:09 Urine Bilirubin Neg (Negative) 02/18/19 12:09 Urine Urobilinogen < 2.0 mg/dL (<2.0) 02/18/19 12:09 Ur Leukocyte Esterase Tr (Negative) 02/18/19 12:09 Urine WBC (Auto) 1.0 /HPF (0.0-6.0) 02/18/19 12:09 Urine RBC (Auto) 3.0 /HPF (0.0-6.0) 02/18/19 12:09 Active Medications - Current Medications Current Medications: Generic Name Dose Route Start Last Admin Trade Name Freq PRN Reason Stop Dose Admin Acetaminophen 650 mg 02/18/19 15:05 02/21/19 00:56 Tylenol PO 650 mg Q4H PRN Administration Pain MILD(1-3)/Fever >100.5/TOVAR Albuterol 2.5 mg 02/18/19 15:05 Proventil IH Q4HRT PRN Shortness Of Breath Arformoterol Tartrate 15 mcg 02/18/19 20:00 02/21/19 21:46 Brovana Nebu IH 15 mcg Q12HRT BUTCH Administration Atorvastatin Calcium 10 mg 02/18/19 15:15 Atorvastatin PO ONCE BUTCH Budesonide 0.5 mg 02/19/19 09:00 02/21/19 21:46 Pulmicort IH 0.5 mg Q12HRT BUTCH Administration Carvedilol 3.125 mg 02/21/19 10:00 02/21/19 21:44 Coreg PO 3.125 mg BID BUTCH Administration Famotidine 20 mg 02/18/19 22:00 02/21/19 21:44 Pepcid PO 20 mg BID BUTCH Administration Guaifenesin 600 mg 02/18/19 22:00 02/21/19 21:44 Mucinex Er PO 600 mg BID BUTCH Administration Heparin Sodium (Porcine) 5,000 unit 02/20/19 22:00 02/21/19 21:45 Heparin SUB-Q 5,000 unit Q8HR BUTCH Administration Levofloxacin/Dextrose 500 mg in 100 mls @ 100 mls/hr 02/18/19 16:00 02/21/19 15:13 Levaquin 500mg/100ml IV 100 mls/hr Q24H BUTCH Administration Protocol Metronidazole 500 mg in 100 mls @ 100 mls/hr 02/18/19 16:00 12/02/19 00:27 Flagyl 500 Mg/100 Ml IV 100 mls/hr Q8H BUTCH Administration Protocol Ipratropium [place] 0.5 mg 02/18/19 20:00 02/21/19 21:46 Atrovent IH 0.5 mg Q6HRT BUTCH Administration Methylprednisolone 4 mg 02/20/19 23:00 02/21/19 09:03 Medrol PO 4 mg QDAY BUTCH Administration Montelukast Sodium 10 mg 02/19/19 10:00 02/21/19 09:03 Singulair PO 10 mg DAILY BUTCH Administration Morphine Sulfate 2 mg 02/18/19 15:05 02/21/19 13:53 Morphine IV 2 mg Q4H PRN Administration Pain, Moderate (4-6) Ondansetron HCl 4 mg 02/20/19 08:36 02/21/19 15:13 Zofran IV 4 mg Q6H PRN Administration Nausea And Vomiting Sodium Chloride 10 ml 02/18/19 22:00 02/21/19 21:47 Sodium Chloride Flush Syringe 10 Ml IV 10 ml BID BUTCH Administration Sodium Chloride 10 ml 02/18/19 15:05 Sodium Chloride Flush Syringe 10 Ml IV PRN PRN LINE FLUSH Sodium Chloride 1 applic 02/19/19 22:19 02/20/19 00:37 [place] Saline NS 1 applic PRN PRN Administration Dry Nasal Passages
[2019-02-22] MEDS: HEPARIN 5,000 UNIT/1 ML VIAL SUB-Q SCH ×3 (05:12→21:27)
[2019-02-22 08:07] LABS: BUN/Creatinine Ratio 8; Blood Urea Nitrogen 4 mg/dL (7-17); Hemolysis Index 3
[2019-02-22] MEDS: IPRATROPIUM 0.02% NEBU 2.5 ML IH SCH ×4 (08:15→20:46)
[2019-02-22] MEDS: BUDESONIDE 0.5 MG/2 ML NEBU IH SCH ×2 (08:15→20:46)
[2019-02-22] MEDS: ARFORMOTEROL 15 MCG/2 ML NEBU IH SCH ×2 (08:16→20:45)
[2019-02-22] MEDS ORDERED: SODIUM CHLORIDE 0.9% 1000 ML 1,000 ML ONE (10:15)
[2019-02-22] MEDS: carvediloL 3.125 MG TAB PO SCH ×3 (10:40→21:27)
[2019-02-22] MEDS ORDERED: PROPOFOL 200 MG/20 ML VIAL IV ONE (10:41)
[2019-02-22] MEDS ORDERED: SODIUM CHLORIDE 0.9% 1000 ML 1,000 ML IV SCH (11:00)
--- NOTE | 2019-02-22 11:17 | Post Operative Note ---
Pre-op diagnosis: Colovaginal fistula Post-op diagnosis: other (Diverticulosis) Findings: 1. Sigmoid diverticulosis, with erythematous mucosa in distal lumen. No obvious fistula identified. 2. Otherwise normal colonoscopy to cecum. 3. No mass lesions noted. Procedure: Colonoscopy Anesthesia: MAC Surgeon: RAOUL GUZMAN Estimated blood loss: none Pathology: none Condition: stable Disposition: floor (Plan as per Surgery. GI will sign off.)
--- NOTE | 2019-02-22 11:18 | Anesthesia Day of Surgery ---
Anesthesia Day of Surgery - Day of Surgery Patient Examined: Yes Patient H&P Reviewed: Yes Patient is NPO: Yes Beta Blockers: No Cardiac Clearance: No Pulmonary Clearance: No Nathaniel's Test: N/A
--- NOTE | 2019-02-22 11:20 | Anesthesia Consultation ---
Anesthesia Consult and Med Hx - Airway ROM Head & Neck: Adequate Mental/Hyoid Distance: Adequate Mallampati Class: Class III Intubation Access Assessment: Possibly Difficult - Pulmonary Exam CTA: No - Cardiac Exam Cardiac Exam: RRR - Pre-Operative Health Status ASA Pre-Surgery Classification: ASA4 Proposed Anesthetic Plan: General, MAC - Pulmonary Hx Smoking: Yes COPD: Yes Hx Pneumonia: No Hx Sleep Apnea: Yes (uses CPAP) - Cardiovascular System Hx Hypertension: Yes - Gastrointestinal Hx Ulcer: No (Anal/Vaginal fistula)
--- NOTE | 2019-02-22 11:21 | Post Anesthesia Evaluation ---
- Post Anesthesia Evaluation Patient Participated: Yes Airway Patent: Yes Stable Respiratory Function: Yes Nausea/Vomiting: No Temp > 96.8F: Yes Pain Manageable: Yes Adequeate Hydration: No Anesthesia Complications: No Block Receding Appropriately: Not Applicable Patient on Ventilator: No
--- NOTE | 2019-02-22 11:34 | Operative Report ---
PROCEDURE: Colonoscopy. PREOPERATIVE DIAGNOSIS: Colovaginal fistula. POSTOPERATIVE DIAGNOSIS: Diverticulosis. SEDATION: MAC by Anesthesia. HISTORY: The patient is a 58-year-old woman with new onset stool from rectum. She had a CT scan with rectal contrast that demonstrated a distal sigmoid to vaginal fistula. There was mild edema and inflammation. Colonoscopy is being performed to exclude mass lesion. DESCRIPTION OF PROCEDURE: Indications, risks, and benefits were explained and consent was obtained. The patient was placed in left lateral decubitus position and sedated. Video colonoscope was passed through the rectum after digital examination and passed with minimal difficulty to the cecum, which was identified by the ileocecal valve and the appendiceal orifice. Scope was then gradually withdrawn with close inspection of mucosa. Prep was good. FINDINGS: 1. Sigmoid diverticulosis -- moderate. 2. Distal sigmoid colon had erythematous and mildly edematous mucosa. 3. Remainder of visualized colonic mucosa is normal appearing with no evidence of mass lesions, vascular lesions or inflammation. The patient tolerated the procedure well without immediate complications. IMPRESSION: 1. Diverticulosis with distal sigmoid erythema and edema. 2. Otherwise, normal colonoscopy. PLAN: 1. Advance diet. 2. Further management as per surgery. JOB# [id number] HRC/NTS
--- NOTE | 2019-02-22 11:43 | Progress Note ---
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 1. Follow up colon results 2. Continue home COPD regimen 3. I honestly suspect this is related to chronic steroid use. Mrs. Lux Root is my clinic patient and she suffers from severe anxiety and depression. She is chronically steroids and at times without the advice of myse lf or my partners. I will have a long discussion with her about this especially once surgery happens as prolonged steroid use could impair recovery and healing for her. Subjective Date of service: 02/22/19 Principal diagnosis: RV Fistula Interval history: Patient off floor for colon. Reviewed chart and overnight events. Objective Vital Signs - 12hr 02/22/19 02/22/19 02/22/19 04:34 08:00 08:23 Temperature 98.0 F 98.2 F Pulse Rate 79 81 Pulse Rate [ 90 Bilateral Throughout] Respiratory 20 18 Rate Respiratory 18 Rate [Bilateral Throughout] Blood Pressure 110/63 103/70 O2 Sat by Pulse 98 99 98 Oximetry 02/22/19 02/22/19 10:20 10:37 Temperature 97.5 F L 97.5 F L Pulse Rate 92 H 92 H Pulse Rate [ Bilateral Throughout] Respiratory 21 21 Rate Respiratory Rate [Bilateral Throughout] Blood Pressure 108/56 108/56 O2 Sat by Pulse 98 98 Oximetry Constitutional: no acute distress, alert, other (obese) Eyes: non-icteric ENT: oropharynx moist Neck: supple Ascultation: Bilateral: diminished breath sounds Cardiovascular: regular rate and rhythm Gastrointestinal: normoactive bowel sounds, soft, non-tender Integumentary: normal Extremities: no cyanosis Neurologic: normal mental status, non-focal exam Psychiatric: mood appropriate CBC and BMP: 02/21/19 07:40 02/22/19 07:29 ABG, PT/INR, D-dimer: PT/INR, D-dimer PT 12.7 Sec. (12.2-14.9) 02/18/19 12:03 INR 0.96 (0.87-1.13) 02/18/19 12:03 Abnormal lab findings: Abnormal Labs 02/18/19 02/18/19 02/18/19 10:41 10:41 10:53 WBC 18.2 H 18.2 H RBC Hgb MCH 27 L 27 L RDW Plt Count 609 H 609 H Seg Neuts % (Manual) 81.0 H Lymphocytes % (Manual) 12.0 L Monocytes % (Manual) Nucleated RBC % Seg Neutrophils # Man 14.7 H Monocytes # (Manual) Sodium 146 H Potassium Chloride Carbon Dioxide 33 H BUN Creatinine 0.6 L Lactic Acid Total Protein Albumin 02/18/19 02/19/19 02/19/19 12:19 05:52 05:52 WBC 14.2 H RBC 3.62 L Hgb 9.8 L MCH 27 L RDW Plt Count 561 H Seg Neuts % (Manual) Lymphocytes % (Manual) Monocytes % (Manual) 11.0 H Nucleated RBC % 1.0 H Seg Neutrophils # Man 8.9 H Monocytes # (Manual) 1.6 H Sodium 146 H Potassium 3.4 L Chloride Carbon Dioxide 34 H BUN Creatinine 0.6 L Lactic Acid 2.60 H* Total Protein 5.5 L D Albumin 3.2 L 02/20/19 02/20/19 02/21/19 05:16 05:16 07:40 WBC 11.3 H 11.4 H RBC Hgb MCH 27 L 27 L RDW 15.3 H 15.5 H Plt Count 574 H 571 H Seg Neuts % (Manual) Lymphocytes % (Manual) Monocytes % (Manual) Nucleated RBC % Seg Neutrophils # Man Monocytes # (Manual) Sodium Potassium 3.5 L Chloride Carbon Dioxide 35 H BUN 4 L Creatinine 0.5 L Lactic Acid Total Protein Albumin 02/21/19 02/22/19 07:40 07:29 WBC RBC Hgb MCH RDW Plt Count Seg Neuts % (Manual) Lymphocytes % (Manual) Monocytes % (Manual) Nucleated RBC % Seg Neutrophils # Man Monocytes # (Manual) Sodium Potassium Chloride 96.4 L Carbon Dioxide 31 H 33 H BUN 4 L 4 L Creatinine 0.4 L 0.5 L Lactic Acid Total Protein Albumin
[2019-02-22] MEDS: guaiFENesin ER 600 MG TAB PO SCH ×2 (12:24→21:27)
[2019-02-22] MEDS: MONTELUKAST 10 MG TAB PO SCH (12:24)
[2019-02-22] MEDS: methylPREDNISolone 4 MG TAB PO SCH (12:24)
[2019-02-22] MEDS: FAMOTIDINE 20 MG TAB PO SCH ×2 (12:24→21:27)
--- NOTE | 2019-02-22 13:40 | Progress Note ---
Assessment and Plan Colovaginal fistula Chronic respiratory failure chronic steroids use Pre-operative cardiac risk assessment Resolved Non-ischemic CMP EF improved to 45-50% by echo 01/2018 EF 50-55% by echo this admission non-obstructive CAD by cath 2007 COPD on home oxygen Subjective Date of service: 02/22/19 Principal diagnosis: RV Fistula Interval history: For plan colonoscopy today. Objective Vital Signs Temp Pulse Pulse Resp Resp Resp BP 02/22/19 12:26 96 H 135/88 02/22/19 12:22 98.0 F 96 H 18 135/88 02/22/19 11:44 92 H 15 104/67 02/22/19 11:29 102 H 20 97/65 02/22/19 11:14 98.3 F 94 H 16 114/79 02/22/19 10:37 97.5 F L 92 H 21 108/56 02/22/19 10:20 97.5 F L 92 H 21 108/56 02/22/19 08:23 90 18 02/22/19 08:00 98.2 F 81 18 103/70 02/22/19 04:34 98.0 F 79 20 110/63 02/21/19 23:25 98.4 F 86 20 108/69 02/21/19 22:00 18 02/21/19 21:48 02/21/19 21:47 96 H 18 02/21/19 21:44 86 110/71 02/21/19 19:47 98.5 F 86 20 110/71 02/21/19 16:35 98.0 F 89 18 111/80 Pulse Ox 02/22/19 12:26 02/22/19 12:22 95 02/22/19 11:44 98 02/22/19 11:29 95 02/22/19 11:14 94 02/22/19 10:37 98 02/22/19 10:20 98 02/22/19 08:23 98 02/22/19 08:00 99 02/22/19 04:34 98 02/21/19 23:25 95 02/21/19 22:00 02/21/19 21:48 98 02/21/19 21:47 02/21/19 21:44 02/21/19 19:47 98 02/21/19 16:35 99 - Physical Examination General: No Apparent Distress HEENT: Positive: PERRL Neck: Positive: trachea midline Cardiac: Positive: Reg Rate and Rhythm Lungs: Positive: Decreased Breath Sounds Neuro: Positive: Grossly Intact Abdomen: Positive: Soft - Labs and Meds Comprehensive Metabolic Panel 02/22/19 Range/Units 07:29 Sodium 144 (137-145) mmol/L Potassium 3.8 (3.6-5.0) mmol/L Chloride 96.4 L (98-107) mmol/L Carbon Dioxide 33 H (22-30) mmol/L BUN 4 L (7-17) mg/dL Creatinine 0.5 L (0.7-1.2) mg/dL Glucose 76 (65-100) mg/dL Calcium 9.0 (8.4-10.2) mg/dL
--- NOTE | 2019-02-22 13:41 | Progress Note ---
Assessment and Plan Assessment and plan: Gilman-vaginal fistula Surg consulted, following GI consulted, following Residential Driver consulted Discussed with Dr. Phillips. Patient will need corrective surgery but first will need colonoscopy and clearance from Cardiology and Pulmonology. Also Dr. Phillips says this can be done elective as outpatient by him or colorectal surgeon. Colonoscopy completed--await sary report. 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 Chronic hypercapnic respiratory failure Supplemental oxygen, nebulizer therapy, IV steroid therapy, pulse oximetry, Chest x ray, NIPPV as clinically indicated. Pulmonary team consulted, following On home Oxygen at 4l/min, CPAP at night Hypertension) Monitor bp q shift, continue medical management Hyperlipidemia) balanced diet, low cholesterol diet, History Interval history: No new issues overnight. Pt seen in GI lab Hospitalist Physical - Constitutional Vitals: Temp Pulse Resp BP Pulse Ox 98.0 F 96 H 18 135/88 95 02/22/19 12:22 02/22/19 12:26 02/22/19 12:22 02/22/19 12:26 02/22/19 12:22 General appearance: Present: no acute distress - EENT Eyes: Present: PERRL, EOM intact ENT: hearing intact, clear oral mucosa, dentition normal - Neck Neck: Present: supple, normal ROM - Respiratory Respiratory effort: normal Respiratory: bilateral: CTA - Cardiovascular Rhythm: regular Heart Sounds: Present: S1 & S2. Absent: gallop, rub - Extremities Extremities: no ischemia, No edema, Full ROM - Abdominal General gastrointestinal: soft, non-tender, non-distended, normal bowel sounds - Integumentary Integumentary: Present: clear, warm, dry - Neurologic Neurologic: CNII-XII intact, moves all extremities Results - Labs CBC & Chem 7: 02/21/19 07:40 02/22/19 07:29 Labs: Laboratory Last Values WBC 11.4 K/mm3 (4.5-11.0) H 02/21/19 07:40 RBC 3.92 M/mm3 (3.65-5.03) 02/21/19 07:40 Hgb 10.6 gm/dl (10.1-14.3) 02/21/19 07:40 Hct 33.4 % (30.3-42.9) 02/21/19 07:40 MCV 85 fl (79-97) 02/21/19 07:40 MCH 27 pg (28-32) L 02/21/19 07:40 MCHC 32 % (30-34) 02/21/19 07:40 RDW 15.5 % (13.2-15.2) H 02/21/19 07:40 Plt Count 571 K/mm3 (140-440) H 02/21/19 07:40 Add Manual Diff Complete 02/19/19 05:52 Total Counted 100 02/19/19 05:52 Seg Neuts % (Manual) 63.0 % (40.0-70.0) 02/19/19 05:52 Band Neutrophils % 1.0 % 02/19/19 05:52 Lymphocytes % (Manual) 25.0 % (13.4-35.0) 02/19/19 05:52 Reactive Lymphs % (Man) 0 % 02/19/19 05:52 Monocytes % (Manual) 11.0 % (0.0-7.3) H 02/19/19 05:52 Eosinophils % (Manual) 0 % (0.0-4.3) 02/19/19 05:52 Basophils % (Manual) 0 % (0.0-1.8) 02/19/19 05:52 Metamyelocytes % 0 % 02/19/19 05:52 Myelocytes % 0 % 02/19/19 05:52 Promyelocytes % 0 % 02/19/19 05:52 Blast Cells % 0 % 02/19/19 05:52 Nucleated RBC % 1.0 % (0.0-0.9) H 02/19/19 05:52 Seg Neutrophils # Man 8.9 K/mm3 (1.8-7.7) H 02/19/19 05:52 Band Neutrophils # 0.1 K/mm3 02/19/19 05:52 Lymphocytes # (Manual) 3.6 K/mm3 (1.2-5.4) 02/19/19 05:52 Abs React Lymphs (Man) 0.0 K/mm3 02/19/19 05:52 Monocytes # (Manual) 1.6 K/mm3 (0.0-0.8) H 02/19/19 05:52 Eosinophils # (Manual) 0.0 K/mm3 (0.0-0.4) 02/19/19 05:52 Basophils # (Manual) 0.0 K/mm3 (0.0-0.1) 02/19/19 05:52 Metamyelocytes # 0.0 K/mm3 02/19/19 05:52 Myelocytes # 0.0 K/mm3 02/19/19 05:52 Promyelocytes # 0.0 K/mm3 02/19/19 05:52 Blast Cells # 0.0 K/mm3 02/19/19 05:52 WBC Morphology Not Reportable 02/19/19 05:52 Hypersegmented Neuts Not Reportable 02/19/19 05:52 Hyposegmented Neuts Not Reportable 02/19/19 05:52 Hypogranular Neuts Not Reportable 02/19/19 05:52 Smudge Cells Not Reportable 02/19/19 05:52 Toxic Granulation Not Reportable 02/19/19 05:52 Toxic Vacuolation Not Reportable 02/19/19 05:52 Dohle Bodies Not Reportable 02/19/19 05:52 Pelger-Huet Anomaly Not Reportable 02/19/19 05:52 Florentino Rods Not Reportable 02/19/19 05:52 Platelet Estimate Consistent w auto 02/19/19 05:52 Clumped Platelets Not Reportable 02/19/19 05:52 Plt Clumps, EDTA Not Reportable 02/19/19 05:52 Large Platelets Not Reportable 02/19/19 05:52 Giant Platelets Not Reportable 02/19/19 05:52 Platelet Satelliting Not Reportable 02/19/19 05:52 Plt Morphology Comment Not Reportable 02/19/19 05:52 RBC Morphology Not Reportable 02/19/19 05:52 Dimorphic RBCs Not Reportable 02/19/19 05:52 Polychromasia Not Reportable 02/19/19 05:52 Hypochromasia Not Reportable 02/19/19 05:52 Poikilocytosis Not Reportable 02/19/19 05:52 Anisocytosis 1+ 02/19/19 05:52 Microcytosis Not Reportable 02/19/19 05:52 Macrocytosis Not Reportable 02/19/19 05:52 Spherocytes Not Reportable 02/19/19 05:52 Pappenheimer Bodies Not Reportable 02/19/19 05:52 Sickle Cells Not Reportable 02/19/19 05:52 Target Cells Not Reportable 02/19/19 05:52 Tear Drop Cells Not Reportable 02/19/19 05:52 Ovalocytes Not Reportable 02/19/19 05:52 Helmet Cells Not Reportable 02/19/19 05:52 [place] Bodies Not Reportable 02/19/19 05:52 [place] Rings Not Reportable 02/19/19 05:52 [place] Cells Not Reportable 02/19/19 05:52 Bite Cells Not Reportable 02/19/19 05:52 Crenated Cell Not Reportable 02/19/19 05:52 Elliptocytes Not Reportable 02/19/19 05:52 Acanthocytes (Spur) Not Reportable 02/19/19 05:52 Rouleaux Not Reportable 02/19/19 05:52 Hemoglobin C Crystals Not Reportable 02/19/19 05:52 Schistocytes Not Reportable 02/19/19 05:52 Malaria parasites Not Reportable 02/19/19 05:52 [place] Bodies Not Reportable 02/19/19 05:52 Hem Pathologist Commnt No 02/19/19 05:52 PT 12.7 Sec. (12.2-14.9) 02/18/19 12:03 INR 0.96 (0.87-1.13) 02/18/19 12:03 APTT 25.0 Sec. (24.2-36.6) 02/18/19 12:03 Sodium 144 mmol/L (137-145) 02/22/19 07:29 Potassium 3.8 mmol/L (3.6-5.0) 02/22/19 07:29 Chloride 96.4 mmol/L (98-107) L 02/22/19 07:29 Carbon Dioxide 33 mmol/L (22-30) H 02/22/19 07:29 Anion Gap 18 mmol/L 02/22/19 07:29 BUN 4 mg/dL (7-17) L 02/22/19 07:29 Creatinine 0.5 mg/dL (0.7-1.2) L 02/22/19 07:29 Estimated GFR > 60 ml/min 02/22/19 07:29 BUN/Creatinine Ratio 8 % 02/22/19 07:29 Glucose 76 mg/dL (65-100) 02/22/19 07:29 Lactic Acid 0.70 mmol/L (0.7-2.0) 02/18/19 14:17 Calcium 9.0 mg/dL (8.4-10.2) 02/22/19 07:29 Magnesium 2.00 mg/dL (1.7-2.3) 02/18/19 12:03 Total Bilirubin < 0.20 mg/dL (0.1-1.2) 02/19/19 05:52 AST 13 units/L (5-40) 02/19/19 05:52 ALT 14 units/L (7-56) 02/19/19 05:52 Alkaline Phosphatase 49 units/L (35-129) 02/19/19 05:52 NT-Pro-B Natriuret Pep 52.06 pg/mL (0-900) 02/18/19 12:03 Total Protein 5.5 g/dL (6.3-8.2) L D 02/19/19 05:52 Albumin 3.2 g/dL (3.9-5) L 02/19/19 05:52 Albumin/Globulin Ratio 1.4 % 02/19/19 05:52 Urine Color Yellow (Yellow) 02/18/19 12:09 Urine Turbidity Clear (Clear) 02/18/19 12:09 Urine pH 6.0 (5.0-7.0) 02/18/19 12:09 Ur Specific [place] 1.014 (1.003-1.030) 02/18/19 12:09 Urine Protein <15 mg/dl mg/dL (Negative) 02/18/19 12:09 Urine Glucose (UA) Neg mg/dL (Negative) 02/18/19 12:09 Urine Ketones Neg mg/dL (Negative) 02/18/19 12:09 Urine Blood Neg (Negative) 02/18/19 12:09 Urine Nitrite Neg (Negative) 02/18/19 12:09 Urine Bilirubin Neg (Negative) 02/18/19 12:09 Urine Urobilinogen < 2.0 mg/dL (<2.0) 02/18/19 12:09 Ur Leukocyte Esterase Tr (Negative) 02/18/19 12:09 Urine WBC (Auto) 1.0 /HPF (0.0-6.0) 02/18/19 12:09 Urine RBC (Auto) 3.0 /HPF (0.0-6.0) 02/18/19 12:09 Active Medications - Current Medications Current Medications: Generic Name Dose Route Start Last Admin Trade Name Freq PRN Reason Stop Dose Admin Acetaminophen 650 mg 02/18/19 15:05 02/21/19 00:56 Tylenol PO 650 mg Q4H PRN Administration Pain MILD(1-3)/Fever >100.5/TOVAR Albuterol 2.5 mg 02/18/19 15:05 Proventil IH Q4HRT PRN Shortness Of Breath Arformoterol Tartrate 15 mcg 02/18/19 20:00 02/22/19 08:16 Brovana Nebu IH Not Given Q12HRT BUTCH Atorvastatin Calcium 10 mg 02/18/19 15:15 Atorvastatin PO ONCE BUTCH Budesonide 0.5 mg 02/19/19 09:00 02/22/19 08:15 Pulmicort IH 0.5 mg Q12HRT BUTCH Administration Carvedilol 3.125 mg 02/21/19 10:00 02/22/19 12:26 Coreg PO 3.125 mg BID BUTCH Administration Famotidine 20 mg 02/18/19 22:00 02/22/19 12:24 Pepcid PO 20 mg BID BUTCH Administration Guaifenesin 600 mg 02/18/19 22:00 02/22/19 12:24 Mucinex Er PO 600 mg BID BUTCH Administration Heparin Sodium (Porcine) 5,000 unit 02/20/19 22:00 02/22/19 05:12 Heparin SUB-Q Not Given Q8HR BUTCH Levofloxacin/Dextrose 500 mg in 100 mls @ 100 mls/hr 02/18/19 16:00 02/21/19 15:13 Levaquin 500mg/100ml IV 100 mls/hr Q24H BUTCH Administration Protocol Metronidazole 500 mg in 100 mls @ 100 mls/hr 02/18/19 16:00 02/22/19 08:08 Flagyl 500 Mg/100 Ml IV 100 mls/hr Q8H BUTCH Administration Protocol Sodium Chloride 1,000 mls @ 50 mls/hr 02/22/19 11:00 Nacl 0.9% 1000 Ml IV DIRECT BUTCH Ipratropium [place] 0.5 mg 02/18/19 20:00 02/22/19 08:15 Atrovent IH 0.5 mg Q6HRT BUTCH Administration Methylprednisolone 4 mg 02/20/19 23:00 02/22/19 12:24 Medrol PO 4 mg QDAY BUTCH Administration Montelukast Sodium 10 mg 02/19/19 10:00 02/22/19 12:24 Singulair PO 10 mg DAILY BUTCH Administration Morphine Sulfate 2 mg 02/18/19 15:05 02/21/19 13:53 Morphine IV 2 mg Q4H PRN Administration Pain, Moderate (4-6) Ondansetron HCl 4 mg 02/20/19 08:36 02/21/19 15:13 Zofran IV 4 mg Q6H PRN Administration Nausea And Vomiting Sodium Chloride 10 ml 02/18/19 22:00 02/22/19 12:28 Sodium Chloride Flush Syringe 10 Ml IV 10 ml BID BUTCH Administration Sodium Chloride 10 ml 02/18/19 15:05 Sodium Chloride Flush Syringe 10 Ml IV PRN PRN LINE FLUSH Sodium Chloride 1 applic 02/19/19 22:19 02/20/19 00:37 Duncan Saline NS 1 applic PRN PRN Administration Dry Nasal Passages
--- NOTE | 2019-02-22 13:48 | Progress Note ---
Assessment and Plan - Patient Problems (1) Colovaginal fistula Current Visit: Yes Status: Acute Plan to address problem: Pt stable. Fistula is clearly seen on CT scan. She will eventually require operative correction. Discussed case with Dr. Duncan after c-scope. Only diverticular disease throughout colon. Once cards/pulm pre-op assessment is complete, she may be discharged from my perspective. Should go home on low residue diet (info given to patient) and complete her abx regimen. She should f/u in the office in 1 week for surgical planning. Please call with questions. time=10min Subjective Date of service: 02/22/19 Patient Reports: Positive: no new complaints Objective Vital Signs - 12hr 02/22/19 02/22/19 02/22/19 04:34 08:00 08:23 Temperature 98.0 F 98.2 F Pulse Rate 79 81 Pulse Rate [ 90 Bilateral Throughout] Respiratory 20 18 Rate Respiratory 18 Rate [Bilateral Throughout] Blood Pressure 110/63 103/70 O2 Sat by Pulse 98 99 98 Oximetry 02/22/19 02/22/19 02/22/19 10:20 10:37 11:14 Temperature 97.5 F L 97.5 F L 98.3 F Pulse Rate 92 H 92 H 94 H Pulse Rate [ Bilateral Throughout] Respiratory 21 21 16 Rate Respiratory Rate [Bilateral Throughout] Blood Pressure 108/56 108/56 114/79 O2 Sat by Pulse 98 98 94 Oximetry 02/22/19 02/22/19 02/22/19 11:29 11:44 12:22 Temperature 98.0 F Pulse Rate 102 H 92 H 96 H Pulse Rate [ Bilateral Throughout] Respiratory 20 15 18 Rate Respiratory Rate [Bilateral Throughout] Blood Pressure 97/65 104/67 135/88 O2 Sat by Pulse 95 98 95 Oximetry 02/22/19 12:26 Temperature Pulse Rate 96 H Pulse Rate [ Bilateral Throughout] Respiratory Rate Respiratory Rate [Bilateral Throughout] Blood Pressure 135/88 O2 Sat by Pulse Oximetry - General physical appearance no distress, no pain - Respiratory normal expansion, normal respiratory effort - Abdomen soft - Psychiatric oriented to time, oriented to person, oriented to place, speech is normal, memory intact - Labs 02/21/19 07:40 02/22/19 07:29 Diabetes panel 02/22/19 Range/Units 07:29 Sodium 144 (137-145) mmol/L Potassium 3.8 (3.6-5.0) mmol/L Chloride 96.4 L (98-107) mmol/L Carbon Dioxide 33 H (22-30) mmol/L BUN 4 L (7-17) mg/dL Creatinine 0.5 L (0.7-1.2) mg/dL Glucose 76 (65-100) mg/dL Calcium 9.0 (8.4-10.2) mg/dL Calcium panel 02/22/19 Range/Units 07:29 Calcium 9.0 (8.4-10.2) mg/dL Pituitary panel 02/22/19 Range/Units 07:29 Sodium 144 (137-145) mmol/L Potassium 3.8 (3.6-5.0) mmol/L Chloride 96.4 L (98-107) mmol/L Carbon Dioxide 33 H (22-30) mmol/L BUN 4 L (7-17) mg/dL Creatinine 0.5 L (0.7-1.2) mg/dL Glucose 76 (65-100) mg/dL Calcium 9.0 (8.4-10.2) mg/dL Adrenal panel 02/22/19 Range/Units 07:29 Sodium 144 (137-145) mmol/L Potassium 3.8 (3.6-5.0) mmol/L Chloride 96.4 L (98-107) mmol/L Carbon Dioxide 33 H (22-30) mmol/L BUN 4 L (7-17) mg/dL Creatinine 0.5 L (0.7-1.2) mg/dL Glucose 76 (65-100) mg/dL Calcium 9.0 (8.4-10.2) mg/dL
--- NOTE | 2019-02-22 14:27 | Progress Note ---
Assessment and Plan Cultures Blood culture 02/18/2019 no growth to date Urine culture 02/18/2019 no growth to date Assessment: 58 yo F with COPD on home O2, pulmonary HTN, HTN, CHF admitted with diverticulitis and colovaginal fistula: 1. Diverticulitis - continue levofloxacin and metronidazole for now 2. Colovaginal fistula - plans for repair eventually as outpatient. Gen Surg and GI saw patient. Colonoscopy on 02/22/2019 did not show obvious fistula, showed diverticuli. 3. COPD with chronic respiratory failure: on home O2 4. CHF 5. PCN allergy: remote, >20 years ago when she was in college. Has taken Amoxic illin in the past without issues. Patient agreeable to try Augmentin. Recs: - continue levofloxacin and metronidazole - test dose of PO Augmentin ordered, patient has taken Amox in the past, if she tolerates, can do PO Augmentin 875 mg BID x 1 week upon discharge. Navi Mireles MD, FACP [facility] ([facility]) C: [phone] O: [phone] F: [phone] Subjective Date of service: 02/22/19 Principal diagnosis: RV Fistula Interval history: Reports no complaints. Had colonoscopy today. Denies any fever. Denies nausea or vomiting. Objective - Exam Narrative Exam: Physical Exam: Constitutional: Alert, cooperative. No acute distress Head, Ears, Nose: Normocephalic, atraumatic. External ears, nose normal Eyes: Conjunctivae/corneas clear. No icterus. No ptosis. Neck: Supple, no meningeal signs Cardiovascular: S1, S2 normal. Respiratory: Good air entry, clear to auscultation bilaterally GI: Soft, non-tender; bowel sounds normal. No peritoneal signs Musculoskeletal: No pedal edema, no cyanosis. Skin: No rash or abscess Hem/Lymphatic: No palpable cervical or supraclavicular nodes. No lymphangitis Psych: Mood ok. Affect normal Neurological: Awake, alert, oriented. No gross abnormality - Constitutional Vitals: Vital Signs Temp Pulse Resp BP Pulse Ox 98.0 F 94 H 18 135/88 95 02/22/19 12:22 02/22/19 14:05 02/22/19 14:05 02/22/19 12:26 02/22/19 12:22 Temperature -Last 24 Hours Temperature 98.0 F Temperature 98.3 F Temperature 97.5 F Temperature 97.5 F Temperature 98.2 F Temperature 98.0 F Temperature 98.4 F Temperature 98.5 F Temperature 98.0 F - Labs CBC & Chem 7: 02/21/19 07:40 02/22/19 07:29 Labs: Abnormal lab results 02/22/19 Range/Units 07:29 Chloride 96.4 L (98-107) mmol/L Carbon Dioxide 33 H (22-30) mmol/L BUN 4 L (7-17) mg/dL Creatinine 0.5 L (0.7-1.2) mg/dL
[2019-02-22] MEDS ORDERED: AMOXICILLIN/K CLAV 875/125MG TAB PO ONE (16:00)
[2019-02-22] MEDS: MORPHINE 2 MG/1 ML INJ IV PRN (22:58)
[2019-02-23] MEDS: IPRATROPIUM 0.02% NEBU 2.5 ML IH SCH ×3 (04:06→17:29)
[2019-02-23] MEDS: HEPARIN 5,000 UNIT/1 ML VIAL SUB-Q SCH (06:31)
[2019-02-23] MEDS: ARFORMOTEROL 15 MCG/2 ML NEBU IH SCH (07:46)
[2019-02-23] MEDS: BUDESONIDE 0.5 MG/2 ML NEBU IH SCH (07:46)
[2019-02-23 08:17] VITALS: BP 107/80
--- NOTE | 2019-02-23 09:36 | Progress Note ---
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 1. No fistula seen on Colonoscopy. 2. Continue home COPD regimen 3. I honestly suspect this is related to chronic steroid use. Mrs. Lux Root is my clinic patient and she suffers from severe anxiety and depression. She is chronically steroids and at times without the advice of myself or my partners. I will have a long discussion with her about this especially once surgery happens as prolonged steroid use could impair recovery and healing for her. 4. Pulm status stable. No objection to discharge. Will arrange follow up with me in the office. Subjective Date of service: 02/23/19 Principal diagnosis: RV Fistula Interval history: No acute events. Pulm status is stable. Objective Vital Signs - 12hr 02/23/19 02/23/19 02/23/19 01:00 04:48 07:14 Temperature 97.5 F L 97.3 F L 97.8 F Pulse Rate 89 78 84 Pulse Rate [ Bilateral Throughout] Respiratory 17 17 20 Rate Respiratory Rate [Bilateral Throughout] Blood Pressure 93/64 99/72 107/80 O2 Sat by Pulse 98 97 99 Oximetry 02/23/19 07:52 Temperature Pulse Rate Pulse Rate [ 77 Bilateral Throughout] Respiratory Rate Respiratory 18 Rate [Bilateral Throughout] Blood Pressure O2 Sat by Pulse 97 Oximetry Constitutional: no acute distress, alert, other (obese) Eyes: non-icteric ENT: oropharynx moist Neck: supple Ascultation: Bilateral: diminished breath sounds Cardiovascular: regular rate and rhythm Gastrointestinal: normoactive bowel sounds, soft, non-tender Integumentary: normal Extremities: no cyanosis Neurologic: normal mental status, non-focal exam Psychiatric: mood appropriate CBC and BMP: 02/21/19 07:40 02/22/19 07:29 ABG, PT/INR, D-dimer: PT/INR, D-dimer PT 12.7 Sec. (12.2-14.9) 02/18/19 12:03 INR 0.96 (0.87-1.13) 02/18/19 12:03 Abnormal lab findings: Abnormal Labs 02/18/19 02/18/19 02/18/19 10:41 10:41 10:53 WBC 18.2 H 18.2 H RBC Hgb MCH 27 L 27 L RDW Plt Count 609 H 609 H Seg Neuts % (Manual) 81.0 H Lymphocytes % (Manual) 12.0 L Monocytes % (Manual) Nucleated RBC % Seg Neutrophils # Man 14.7 H Monocytes # (Manual) Sodium 146 H Potassium Chloride Carbon Dioxide 33 H BUN Creatinine 0.6 L Lactic Acid Total Protein Albumin 02/18/19 02/19/19 02/19/19 12:19 05:52 05:52 WBC 14.2 H RBC 3.62 L Hgb 9.8 L MCH 27 L RDW Plt Count 561 H Seg Neuts % (Manual) Lymphocytes % (Manual) Monocytes % (Manual) 11.0 H Nucleated RBC % 1.0 H Seg Neutrophils # Man 8.9 H Monocytes # (Manual) 1.6 H Sodium 146 H Potassium 3.4 L Chloride Carbon Dioxide 34 H BUN Creatinine 0.6 L Lactic Acid 2.60 H* Total Protein 5.5 L D Albumin 3.2 L 02/20/19 02/20/19 02/21/19 05:16 05:16 07:40 WBC 11.3 H 11.4 H RBC Hgb MCH 27 L 27 L RDW 15.3 H 15.5 H Plt Count 574 H 571 H Seg Neuts % (Manual) Lymphocytes % (Manual) Monocytes % (Manual) Nucleated RBC % Seg Neutrophils # Man Monocytes # (Manual) Sodium Potassium 3.5 L Chloride Carbon Dioxide 35 H BUN 4 L Creatinine 0.5 L Lactic Acid Total Protein Albumin 02/21/19 02/22/19 07:40 07:29 WBC RBC Hgb MCH RDW Plt Count Seg Neuts % (Manual) Lymphocytes % (Manual) Monocytes % (Manual) Nucleated RBC % Seg Neutrophils # Man Monocytes # (Manual) Sodium Potassium Chloride 96.4 L Carbon Dioxide 31 H 33 H BUN 4 L 4 L Creatinine 0.4 L 0.5 L Lactic Acid Total Protein Albumin
[2019-02-23] MEDS: metroNIDAZOLE/NS 500 MG/100 ML 500 MG/100 ML BAG IV SCH (09:37)
--- NOTE | 2019-02-23 10:16 | Discharge Summary ---
Providers - Providers Date of Admission: 02/18/19 15:05 Date of discharge: 02/23/19 Attending physician: NYA MENESES 02/18/19 15:05 Consult to Physician [CONS] Routine Comment: Consulting Provider: REYMUNDO COX Physician Instructions: Reason For Exam: Colovaginal fistula 02/18/19 15:07 Consult to Physician [CONS] Routine Comment: Consulting Provider: KENNY WETZEL Physician Instructions: Reason For Exam: colovaginal fistula/diverticular disease 02/18/19 15:27 Consult to Physician [CONS] Routine Comment: Consulting Provider: SINCERE BECERRA Physician Instructions: Reason For Exam: Cardiomyopathy/Pre op evaluation Consult to Physician [CONS] Routine Comment: Consulting Provider: MARIBEL MCKEE Physician Instructions: Reason For Exam: COPD 02/18/19 15:40 Consult to Physician [CONS] Routine Comment: Consulting Provider: VENITA DONOVAN Physician Instructions: Reason For Exam: colovaginal fistula 02/20/19 08:53 Consult to Physician [CONS] Routine Comment: Consulting Provider: PENG SHELBY Physician Instructions: Reason For Exam: colovaginal fistula Primary care physician: LUIS NEWBY Hospitalization Reason for admission: diverticulitis Condition: Stable Hospital course: 58 yo F PMHx COPD with home O2, pulmonary HTN, HTN, CHF admitted for abdominal pain which began approximately a week prior to admission. She noted associated fecal leakage from the vagina over this time period as well. Her symptoms continued to decline over this time period, and her PCP gave her PO antibiotics which did not alleviate the situation. On admission, she was found to have diverticulitis with suspected perforation and colovaginal fistula. The patient was seen by surgery, infectious disease and GI consultation. CTAP - Colovaginal fistula, diverticulitis. Surgery recommended that GI perform colonoscopy which revealed sigmoid diverticulosis with erythematous mucosa in the distal lumen and no obvious fistula was identified. Normal colonoscopy to cecum. No masses or lesions noted. Surgery plans for repair of possible colovaginal fistula if needed as an outpatient. Surgery reports that fistula is clearly seen on CT scan. ID treated for diverticulitis with Levaquin and metronidazole which will be continued at discharge. Infectious disease also gave 1 dose of by mouth Augmentin and if patient tolerates she will be discharged with PO Augmentin 875 mg BID x 1 week. Pulmonary also saw the patient consultation and counseling her on chronic steroid use but otherwise no objection to discharge. Dedicated discharge time 35 minutes. Disposition: DC- TO HOME OR SELFCARE Time spent for discharge: 35 - Discharge Diagnoses (1) Chronic respiratory failure Status: Acute (2) Colovaginal fistula Status: Acute (3) Diverticulitis large intestine Status: Acute Qualifiers: Diverticulitis bleeding: without bleeding Diverticulitis complication: without perforation or abscess Qualified Code(s): K57.32 - Diverticulitis of large intestine without perforation or abscess without bleeding (4) HLD (hyperlipidemia) Status: Acute Qualifiers: Hyperlipidemia type: mixed hyperlipidemia Qualified Code(s): E78.2 - Mixed hyperlipidemia (5) HTN (hypertension) Status: Acute Qualifiers: Hypertension type: essential hypertension Qualified Code(s): I10 - Essential (primary) hypertension (6) PAGE on CPAP Status: Acute (7) Obesity Status: Acute (8) Rectovaginal fistula Status: Acute (9) Acute hypercapnic respiratory failure Status: Acute Core Measure Documentation - Palliative Care Palliative Care/ Comfort Measures: Not Applicable - Core Measures Any of the following diagnoses?: none Exam - Constitutional Vitals: Temp Pulse Resp BP Pulse Ox 97.8 F 77 18 107/80 97 02/23/19 07:14 02/23/19 07:52 02/23/19 07:52 02/23/19 07:14 02/23/19 07:52 General appearance: Present: no acute distress, well-nourished - EENT Eyes: Present: PERRL ENT: hearing intact, clear oral mucosa - Neck Neck: Present: supple, normal ROM - Respiratory Respiratory effort: normal Respiratory: bilateral: CTA - Cardiovascular Heart Sounds: Present: S1 & S2. Absent: rub, click - Extremities Extremities: pulses symmetrical, No edema Peripheral Pulses: within normal limits - Abdominal General gastrointestinal: Present: soft, non-tender, non-distended, normal bowel sounds Female genitourinary: Present: normal - Integumentary Integumentary: Present: clear, warm, dry - Musculoskeletal Musculoskeletal: gait normal, strength equal bilaterally - Psychiatric Psychiatric: appropriate mood/affect, intact judgment & insight - Neurologic Neurologic: CNII-XII intact, moves all extremities Plan Activity: advance as tolerated Weight Bearing Status: Full Weight Bearing Diet: other (low residue diet) Follow up with: PRIMARY CAREMD [Referring] - 3-5 Days KENNY WETZEL MD [Staff Physician] - 7 Days RAOUL GUZMAN MD [Staff Physician] - 7 Days HELDAIO SANTANA MD [Staff Physician] - 7 Days Prescriptions: AtorvaSTATin 10 mg PO ONCE #30 tablet Amoxicillin/Potassium Clav [Augmentin 875-125 Tablet] 1 each PO BID #14 tablet
[2019-02-23] MEDS: carvediloL 3.125 MG TAB PO SCH (13:00)
[2019-02-23] MEDS: FAMOTIDINE 20 MG TAB PO SCH (13:00)
[2019-02-23] MEDS: guaiFENesin ER 600 MG TAB PO SCH (13:00)
[2019-02-23] MEDS: MONTELUKAST 10 MG TAB PO SCH (13:07)
[2019-02-23] MEDS: methylPREDNISolone 4 MG TAB PO SCH (13:07)
--- NOTE | 2019-02-23 13:22 | Progress Note ---
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 Subjective Date of service: 02/23/19 Principal diagnosis: RV Fistula Interval history: No plans for inpatient surgery. Objective Vital Signs Temp Pulse Pulse Resp Resp BP Pulse Ox 02/23/19 07:52 77 18 97 02/23/19 07:14 97.8 F 84 20 107/80 99 02/23/19 04:48 97.3 F L 78 17 99/72 97 02/23/19 01:00 97.5 F L 89 17 93/64 98 02/22/19 21:27 110/72 02/22/19 19:56 97.9 F 91 H 18 113/77 99 02/22/19 16:39 98.6 F 99 H 18 111/76 97 02/22/19 14:05 94 H 18 - Physical Examination General: No Apparent Distress HEENT: Positive: PERRL Neck: Positive: trachea midline Cardiac: Positive: Reg Rate and Rhythm Lungs: Positive: Decreased Breath Sounds Neuro: Positive: Grossly Intact Abdomen: Positive: Soft Extremities: Absent: edema
--- NOTE | 2019-02-23 14:49 | Progress Note ---
Assessment and Plan Cultures Blood culture 02/18/2019 no growth to date Urine culture 02/18/2019 no growth to date Assessment: 58 yo F with COPD on home O2, pulmonary HTN, HTN, CHF admitted with diverticulitis and colovaginal fistula: 1. Diverticulitis - on levofloxacin and metronidazole 2. Colovaginal fistula - plans for repair eventually as outpatient. Gen Surg and GI saw patient. Colonoscopy on 02/22/2019 did not show obvious fistula, showed diverticuli. 3. COPD with chronic respiratory failure: on home O2 4. CHF 5. PCN allergy: remote, >20 years ago when she was in college. Has taken Amoxicillin in the past without issues. Had no issues with Augmentin here. Recs: PO Augmentin 875 mg BID x 1 week upon discharge with general surgery follow up for surgical management. Navi Mireles MD, FACP [facility], [place], [facility]ated [facility] ([facility]) C: [phone] O: [phone] F: [phone] Subjective Date of service: 02/23/19 Principal diagnosis: RV Fistula Interval history: Reports no complaints. Denies any fever. Denies nausea or vomiting. Tolerated the Augmentin well without issues. Objective - Exam Narrative Exam: Physical Exam: Constitutional: Alert, cooperative. No acute distress Head, Ears, Nose: Normocephalic, atraumatic. External ears, nose normal Eyes: Conjunctivae/corneas clear. No icterus. No ptosis. Neck: Supple, no meningeal signs Cardiovascular: S1, S2 normal. Respiratory: Good air entry, clear to auscultation bilaterally GI: Soft, non-tender; bowel sounds normal. No peritoneal signs Musculoskeletal: No pedal edema, no cyanosis. Skin: No rash or abscess Hem/Lymphatic: No palpable cervical or supraclavicular nodes. No lymphangitis Psych: Mood ok. Affect normal. Neurological: Awake, alert, oriented. No gross abnormality - Constitutional Vitals: Vital Signs Temp Pulse Resp BP Pulse Ox 97.8 F 77 18 107/80 97 02/23/19 07:14 02/23/19 07:52 02/23/19 07:52 02/23/19 07:14 02/23/19 07:52 Temperature -Last 24 Hours Temperature 97.8 F Temperature 97.3 F Temperature 97.5 F Temperature 97.9 F Temperature 98.6 F - Labs CBC & Chem 7: 02/21/19 07:40 02/22/19 07:29
[2019-02-23] MEDS: MORPHINE 2 MG/1 ML INJ IV PRN (15:25)
[2019-02-23] MEDS: ONDANSETRON 4 MG/2 ML INJ IV PRN (15:35)
== END 2019-02-23 16:45 | disposition home health service (06) | DRG 871 ==
LOC: ED 10:35 → 3B-SURG 15:05
PROVIDERS: ADMIT Internal Medicine; ATTEND Hospitalist
PROC: 5A09357 Assistance with Respiratory Ventilation, Less than 24 Consecutive Hours, Continuous Positive Airway Pressure (ICD-10-PCS; 2019-02-21)
PROC: 0DJD8ZZ Inspection of Lower Intestinal Tract, Via Natural or Artificial Opening Endoscopic (ICD-10-PCS; principal; 2019-02-22)
DX: A41.9 Sepsis, unspecified organism (principal); J96.22 Acute and chronic respiratory failure with hypercapnia; N82.3 Fistula of vagina to large intestine; K57.32 Diverticulitis of large intestine without perforation or abscess without bleeding; I50.22 Chronic systolic (congestive) heart failure; I42.8 Other cardiomyopathies; R65.10 Systemic inflammatory response syndrome (SIRS) of non-infectious origin without acute organ dysfunction; J44.9 Chronic obstructive pulmonary disease, unspecified; I27.20 Pulmonary hypertension, unspecified; I11.0 Hypertensive heart disease with heart failure; E66.9 Obesity, unspecified; F17.200 Nicotine dependence, unspecified, uncomplicated; M19.90 Unspecified osteoarthritis, unspecified site; I25.10 Atherosclerotic heart disease of native coronary artery without angina pectoris; E78.2 Mixed hyperlipidemia; G47.33 Obstructive sleep apnea (adult) (pediatric); Z99.81 Dependence on supplemental oxygen; Z88.0 Allergy status to penicillin; Z90.710 Acquired absence of both cervix and uterus; Z82.49 Family history of ischemic heart disease and other diseases of the circulatory system; Z79.899 Other long term (current) drug therapy; Z68.24 Body mass index [BMI] 24.0-24.9, adult; Z88.1 Allergy status to other antibiotic agents
CPT/HCPCS: 36415; 71045; 74177; 80048; 80053; 81001; 82140; 83735; 83880; 85007; 85025; 85027; 85610; 85730; 87040; 87086; 87116; 93306; 94640; 94660; 94760; G0378; A9270-GY; J1644; J1956; J2185; J2270; J2405; J2704; J7030; J7509; Q9967

== ENCOUNTER 2019-03-29 10:59 | Inpatient (IN) | payer BC ==
--- NOTE | 2019-03-26 12:54 | Anesthesia Consultation ---
Anesthesia Consult and Med Hx Date of service: 03/26/19 - Airway Anesthetic Teeth Evaluation: Good ROM Head & Neck: Adequate Mental/Hyoid Distance: Adequate Mallampati Class: Class II Intubation Access Assessment: Good - Pulmonary Exam CTA: Yes - Cardiac Exam Cardiac Exam: RRR - Pre-Operative Health Status ASA Pre-Surgery Classification: ASA4 Proposed Anesthetic Plan: General (Advanced COPD on 6L O2 at baseline, still smokes , Pulm HTN , Seen by pulm - stable , HTN , PAGE on Bipap for GA , patient most likely will remain intubakted post op , I explained this to patient) - Pulmonary Hx Smoking: Yes (FROM [id number]; 2019 STARTED BACK 5-7 CIG/DAY) COPD: Yes (6L O2) Hx Pneumonia: No Hx Sleep Apnea: Yes - Cardiovascular System Hx Hypertension: Yes (2 YRS) Hx Valvular Heart Disease: (LEAKAGE) - Central Nervous System Hx Back Pain: Yes Hx Psychiatric Problems: Yes - Gastrointestinal Hx Ulcer: No (VAGINOINTESTINAL fistula) - Other Systems Hx Alcohol Use: Yes Hx Substance Use: No Hx Cancer: No
[~2019-03-29 10:59] MED LIST: ACETAMINOPHEN 500 MG TAB PO NR; ALBUTEROL 2.5 MG/3 ML NEBU IH NR; CELECOXIB 200 MG CAP PO NR; GABAPENTIN 400 MG CAP PO SCH; GENTAMICIN 300 MG in SODIUM CHLORIDE 0.9% 100 ML IV NR; HYDROCORTISONE SOD SUCC 100 MG/2 ML VIAL IV NR; metroNIDAZOLE/NS 500 MG/100 ML 500 MG/100 ML BAG IV NR
[2019-03-29] MEDS ORDERED: SODIUM CHLORIDE 0.9% 1000 ML 1,000 ML ONE ×2 (11:24→17:07)
[2019-03-29] MEDS ORDERED: CLINDAMYCIN 600 MG/50 mL 600 MG/50 ML BAG IV ONE (11:44)
[2019-03-29] MEDS ORDERED: ACETAMINOPHEN 500 MG TAB ONE (11:45)
[2019-03-29] MEDS ORDERED: GABAPENTIN 300 MG CAP ONE (11:46)
[2019-03-29] MEDS ORDERED: CELECOXIB 200 MG CAP ONE (11:46)
[2019-03-29] MEDS ORDERED: HYDROCORTISONE SOD SUCC 100 MG/2 ML VIAL ONE ×2 (11:47→20:57)
[2019-03-29] MEDS ORDERED: ALBUTEROL 2.5 MG/3 ML NEBU IH ONE (11:47)
[2019-03-29] MEDS: SODIUM CHLORIDE 0.9% 1000 ML 1,000 ML IV SCH (11:55)
[2019-03-29] MEDS ORDERED: LIDOCAINE MPF (2%) 20 MG/1 ML VIAL 5 ML ONE (12:24)
[2019-03-29] MEDS ORDERED: fentaNYL 100 MCG/2 ML INJ ONE (12:24)
[2019-03-29] MEDS ORDERED: HYDROmorphone 1 MG/1 ML INJ ONE (12:24)
[2019-03-29] MEDS ORDERED: ROCURONIUM 50 MG/5 ML INJ IV ONE ×3 (12:24→23:59)
[2019-03-29] MEDS ORDERED: PROPOFOL 200 MG/20 ML VIAL IV ONE (12:25)
[2019-03-29] MEDS ORDERED: LIDOCAINE (1%) 10 MG/1 ML VIAL 20 ML MDV ONE (12:35)
[2019-03-29] MEDS ORDERED: BUPIVACAINE-EPINEPHRINE/PF 0.5%-1:200,000 (30 ML) VIAL INFILTRATI ONE ×2 (12:35→14:02)
[2019-03-29] MEDS ORDERED: ONDANSETRON 4 MG/2 ML INJ ONE (13:57)
[2019-03-29] MEDS ORDERED: LIDOCAINE (1%) 10 MG/1 ML VIAL 20 ML MDV INFILTRATI ONE (14:02)
[2019-03-29] MEDS ORDERED: SODIUM CHLORIDE 0.9% IRR 1,500 ML BOTTLE IR ONE (14:04)
[2019-03-29] MEDS ORDERED: WATER FOR IRRIG STERILE 1,500 ML BOTTLE IR ONE ×2 (14:04)
[2019-03-29] MEDS ORDERED: PHENYLEPHRINE/NS 1,000 MCG/10 ML SYRINGE (OR USE) IV ONE (14:27)
[2019-03-29] MEDS ORDERED: SODIUM CHLORIDE 0.9% 250ML 250 ML ONE (14:45)
[2019-03-29] MEDS ORDERED: PHENYLEPHRINE 10 MG/1 ML INJ SDV ONE ×2 (15:13→23:10)
[2019-03-29] MEDS ORDERED: NALOXONE 0.4 MG/1 ML INJ IV PRN (15:44)
[2019-03-29] MEDS ORDERED: SODIUM CHLORIDE 0.9% 1000 ML 1,000 ML IV SCH (15:45)
[2019-03-29] MEDS ORDERED: PANTOPRAZOLE 40 MG INJ IV SCH (17:00)
[2019-03-29] MEDS ORDERED: LACTATED RINGERS 1,000 ML ONE (17:07)
[2019-03-29] MEDS ORDERED: WATER FOR IRRIG STERILE 2000 ML IR ONE (22:31)
[2019-03-29] MEDS ORDERED: SODIUM CHLORIDE 0.9% 100 ML ONE (23:09)
[2019-03-29] MEDS ORDERED: LIP THERAPY VASELINE TP PRN (23:09)
[2019-03-29] MEDS ORDERED: fentaNYL 100 MCG/2 ML INJ IV PRN ×2 (23:09→23:12)
[2019-03-29] MEDS ORDERED: MINERAL OIL/PETROLATUM, WHITE OPHTH OINT 3.5 GM OU PRN (23:09)
[2019-03-29] MEDS ORDERED: PROPOFOL 1,000 MG/100 ML BOTTLE IV SCH (23:45)
[2019-03-29] MEDS ORDERED: fentaNYL DRIP Premix 2,000 MCG/100 ML BAG IV SCH (23:45)
[2019-03-30] MEDS ORDERED: SODIUM CHLORIDE 0.9% 1000 ML 1,000 ML ONE (00:17)
--- NOTE | 2019-03-30 00:35 | Fluoroscopy Report ---
EXAMINATION: Retrograde urography, 03/29/2019 CLINICAL INFORMATION: History of right ureteral trauma. Right-sided stent placement. COMPARISON: CT of the abdomen and pelvis, 02/18/2019 FINDINGS: A total of 5 fluoroscopic images were submitted. These demonstrate contrast opacification of the righ t-sided collecting system and right ureter. Final images demonstrate the placement of a right-sided d ouble-J ureteral stent catheter projecting in expected position. Total number of fluoroscopic images = 5 Total fluoroscopy time = 2 minutes 2 seconds Signer Name: Consuelo Gregorio MD Signed: 03/30/2019 12:30 AM Workstation Name: [id number]
[2019-03-30] MEDS ORDERED: LACTATED RINGERS 1,000 ML ONE (00:42)
--- NOTE | 2019-03-30 00:56 | Post Operative Note ---
Date of procedure: 03/29/19 (dictation:[id number]) Pre-op diagnosis: sigmoido-vaginal fistula Post-op diagnosis: same Findings: extensive adhesions throughout abdomen. Very dense adhesions between vaginal cuff and sigmoid colon Procedure: robotic assisted lap lysis of adhesions. open sigmoid resection with primary anastomosis. IVF 4L EBL ~500cc UOP - 400cc (only part of the case - [place] removed for urology case) Anesthesia: GETA Surgeon: KENNY WETZEL (asst: jin winn) Estimated blood loss: other (~500cc) Pathology: list (sigmoid colon) Specimen disposition: to lab Condition: stable Disposition: PACU
[2019-03-30] MEDS: CLINDAMYCIN 600 MG/50 mL 600 MG/50 ML BAG IV SCH ×2 (01:27→04:16)
[2019-03-30 01:41] LABS: Hematocrit 35.8 % (30.3-42.9); Hemoglobin 11.3 gm/dl (10.1-14.3); Mean Corpuscular HGB Conc 32 % (30-34); Mean Corpuscular Volume 87 fl (79-97); Platelet Count 384 K/mm3 (140-440); Red Blood Count 4.12 M/mm3 (3.65-5.03); Red Cell Distribution Width 15.5 % (13.2-15.2)
--- NOTE | 2019-03-30 01:43 | Post Anesthesia Evaluation ---
- Post Anesthesia Evaluation Patient Participated: No (sedated) Airway Patent: Yes Stable Respiratory Function: Yes Nausea/Vomiting: No Temp > 96.8F: Yes Pain Manageable: Yes Adequeate Hydration: Yes Anesthesia Complications: No Block Receding Appropriately: Not Applicable Patient on Ventilator: Yes (initial settings 400x20, FiO2 60%, Peep 6) Other Comments: Remained intubated and sedated postoperatively. Placed on vent by RT on arrival to PACU. ETT in appropriate position per my review of CXR. ABG and labs pending. OK for transfer to ICU.
--- NOTE | 2019-03-30 01:44 | XRay Report ---
CHEST 1 VIEW, 03/30/2019 1:01 AM CLINICAL INFORMATION/INDICATION: Endotracheal tube placement COMPARISON: Chest radiograph, 02/20/2019 FINDINGS: SUPPORT DEVICES: There has been interval placement of endotracheal tube with tip approximately 6 cm a martha the level of the nickie. An esophagogastric tube has also been placed with tip below the level o f the diaphragm, although the exact location of its tip is not well-visualized. HEART: The cardiac silhouette is normal in size. LUNGS/PLEURA: Right basilar density is similar to the previous study and may be related to atelectasi s. ADDITIONAL FINDINGS: There is suspected subcutaneous emphysema within the visualized right flank soft tissues. IMPRESSION: 1. Interval placement of endotracheal tube and esophagogastric tube as above. 2. Stable right basilar density which may be related to atelectasis. 3. Possible subcutaneous emphysema within the visualized right flank soft tissues. Signer Name: Consuelo Gregorio MD Signed: 03/30/2019 1:39 AM Workstation Name: [id number]
[2019-03-30 02:05] LABS: BUN/Creatinine Ratio 18; Blood Urea Nitrogen 11 mg/dL (7-17); Hemolysis Index 4
[2019-03-30] MEDS: GENTAMICIN/NS 80 MG/100 ML 100 ML IV SCH ×2 (03:00→05:08)
[2019-03-30 04:37] LABS: ABG Base Excess -1.2 mmol/L (-2.0-3.0); ABG HCO3 25.7 mmol/L (20.0-26.0); ABG Methemoglobin 0.5 % (0.0-1.5); ABG PCO2 52.9 mm Hg; ABG PH 7.304 pH Units (7.350-7.450); ABG PO2 94.2 mm Hg (80.0-90.0)
[2019-03-30 05:57] LABS: BUN/Creatinine Ratio 22; Blood Urea Nitrogen 11 mg/dL (7-17); Hemolysis Index 109
[2019-03-30] MEDS: SODIUM CHLORIDE 0.9% 1000 ML 1,000 ML IV SCH (06:05)
[2019-03-30 08:08] LABS: Mean Corpuscular HGB Conc 30 % (30-34); Mean Corpuscular Volume 87 fl (79-97); Platelet Count 339 K/mm3 (140-440); Red Blood Count 3.89 M/mm3 (3.65-5.03); Red Cell Distribution Width 15.7 % (13.2-15.2)
[2019-03-30 08:10] LABS: Hemoglobin 10.3 gm/dl (10.1-14.3)
[2019-03-30 08:49] LABS: Anisocytosis Few; Basophils % (Manual) 0 % (0.0-1.8); Eosinophils % (Manual) 0 % (0.0-4.3); Total Cells Counted 100
[2019-03-30 08:50] LABS: Platelet Estimate Consistent w Auto
--- NOTE | 2019-03-30 08:56 | Progress Note ---
Assessment and Plan - Patient Problems (1) Colovaginal fistula Current Visit: No Status: Acute Plan to address problem: Pt stable. s/p robotic lysis of adhesions, open sigmoid colectomy, closure of vaginal fistula - 03/30 - POD#1. Discussed case with Dr. Gage. Patient appears to be stable and potentially ready for extubation per Dr. Gage. Neuro - sedated CV - appears mildly dry. May benefit from extra fluids - will defer to ICU Pulm - possible extubation today per Dr. Gage GI - NGT to LIS. NPO. If output not bilious, may use for meds. Expect ileus. MARBIN output looks good. - [place] to stay in 10-[address] Polo. ID - finish yinka-op Abx today Endo - stress dose steroids by ICU DVT prophylaxis - ok for lovenox prophylaxis Please call with questions. Subjective Date of service: 03/30/19 Patient Reports: Positive: other (no events o/n) Objective Vital Signs - 12hr 03/30/19 03/30/19 03/30/19 00:50 00:55 01:00 Temperature 98.6 F Pulse Rate 102 H 90 89 Respiratory 20 20 21 Rate Respiratory Rate [Chest] Blood Pressure 144/91 136/82 131/78 O2 Sat by Pulse 100 100 100 Oximetry 03/30/19 03/30/19 03/30/19 01:05 01:20 01:35 Temperature Pulse Rate 90 98 H 79 Respiratory 20 20 20 Rate Respiratory Rate [Chest] Blood Pressure 137/80 164/101 98/64 O2 Sat by Pulse 100 99 99 Oximetry 03/30/19 03/30/19 03/30/19 01:50 02:05 02:17 Temperature 97.4 F L Pulse Rate 72 77 83 Respiratory 20 20 16 Rate Respiratory Rate [Chest] Blood Pressure 98/60 104/59 O2 Sat by Pulse 100 100 Oximetry 03/30/19 03/30/19 03/30/19 02:21 02:25 02:30 Temperature 97.4 F L Pulse Rate 76 79 88 Respiratory 19 19 17 Rate Respiratory 19 Rate [Chest] Blood Pressure O2 Sat by Pulse 96 96 96 Oximetry 03/30/19 03/30/19 03/30/19 02:31 02:41 02:51 Temperature 97.4 F L Pulse Rate 84 69 68 Respiratory 20 20 20 Rate Respiratory Rate [Chest] Blood Pressure 110/59 110/59 101/61 O2 Sat by Pulse 94 96 98 Oximetry 03/30/19 03/30/19 03/30/19 03:00 03:11 03:21 Temperature Pulse Rate 67 68 67 Respiratory 20 20 20 Rate Respiratory Rate [Chest] Blood Pressure 101/55 101/55 97/59 O2 Sat by Pulse 98 98 98 Oximetry 03/30/19 03/30/19 03/30/19 03:30 03:36 03:40 Temperature 97.7 F Pulse Rate 66 67 Respiratory 20 20 Rate Respiratory Rate [Chest] Blood Pressure 95/56 95/56 O2 Sat by Pulse 99 99 Oximetry 03/30/19 03/30/19 03/30/19 03:51 04:00 04:10 Temperature Pulse Rate 68 77 68 Respiratory 20 19 20 Rate Respiratory Rate [Chest] Blood Pressure 98/61 92/62 92/62 O2 Sat by Pulse 100 99 100 Oximetry 03/30/19 03/30/19 03/30/19 04:21 04:30 04:38 Temperature Pulse Rate 69 70 77 Respiratory 20 20 Rate Respiratory Rate [Chest] Blood Pressure 97/59 100/55 100/55 O2 Sat by Pulse 100 99 100 Oximetry 03/30/19 03/30/19 03/30/19 04:41 04:51 05:00 Temperature Pulse Rate 78 80 73 Respiratory 20 20 21 Rate Respiratory Rate [Chest] Blood Pressure 100/55 96/59 93/57 O2 Sat by Pulse 100 99 98 Oximetry 03/30/19 03/30/19 03/30/19 05:11 05:21 05:30 Temperature Pulse Rate 78 77 72 Respiratory 20 20 20 Rate Respiratory Rate [Chest] Blood Pressure 93/57 99/56 90/58 O2 Sat by Pulse 98 98 99 Oximetry 03/30/19 03/30/19 08:00 08:05 Temperature 99.4 F Pulse Rate 83 Respiratory Rate Respiratory Rate [Chest] Blood Pressure 105/63 O2 Sat by Pulse 99 Oximetry - General physical appearance no distress, no pain, other (intubated and sedated) - ENT other (ETT in place. ) - Respiratory normal expansion, normal respiratory effort - Abdomen soft, other (dressing dry. Minimal serosang output in MARBIN drain. ) - Integumentary no rash, no growths, no abnormal pigmentation - Labs 03/30/19 07:52 03/30/19 04:41 Diabetes panel 03/30/19 03/30/19 Range/Units 01:25 04:41 Sodium 142 136 L (137-145) mmol/L Potassium 4.6 5.2 H (3.6-5.0) mmol/L Chloride 105.0 104.7 (98-107) mmol/L Carbon Dioxide 25 18 L D (22-30) mmol/L BUN 11 11 (7-17) mg/dL Creatinine 0.6 L 0.5 L (0.7-1.2) mg/dL Glucose 122 H 100 (65-100) mg/dL Calcium 8.0 L 8.0 L (8.4-10.2) mg/dL Calcium panel 03/30/19 03/30/19 Range/Units 01:25 04:41 Calcium 8.0 L 8.0 L (8.4-10.2) mg/dL Pituitary panel 03/30/19 03/30/19 Range/Units 01:25 04:41 Sodium 142 136 L (137-145) mmol/L Potassium 4.6 5.2 H (3.6-5.0) mmol/L Chloride 105.0 104.7 (98-107) mmol/L Carbon Dioxide 25 18 L D (22-30) mmol/L BUN 11 11 (7-17) mg/dL Creatinine 0.6 L 0.5 L (0.7-1.2) mg/dL Glucose 122 H 100 (65-100) mg/dL Calcium 8.0 L 8.0 L (8.4-10.2) mg/dL Adrenal panel 03/30/19 03/30/19 Range/Units 01:25 04:41 Sodium 142 136 L (137-145) mmol/L Potassium 4.6 5.2 H (3.6-5.0) mmol/L Chloride 105.0 104.7 (98-107) mmol/L Carbon Dioxide 25 18 L D (22-30) mmol/L BUN 11 11 (7-17) mg/dL Creatinine 0.6 L 0.5 L (0.7-1.2) mg/dL Glucose 122 H 100 (65-100) mg/dL Calcium 8.0 L 8.0 L (8.4-10.2) mg/dL
--- NOTE | 2019-03-30 08:58 | Consultation ---
History of Present Illness Consult date: 03/30/19 Requesting physician: KENNY WETZEL Reason for consult: COPD History of present illness: 58 y/o female with moderately severe COPD, admitted to the ICU post op from extensive abdominal surgery with lysis of adhesions and ureteral repair. Patient well known to me as she is my clinic patient. Tolerated procedure well with no issues. Remains intubated and awake on Diprovan 20. No family currently present at bedside. Patient is following commands. ABG good on Minimal support this am. Past History Past Medical History: COPD, hyperlipidemia, other (depression/anxeity) Past Surgical History: Other (unable to obtain) Social history: , smoking, alcohol abuse Family history: no significant family history Medications and Allergies Allergies Allergy/AdvReac Type Severity Reaction Status Date / Time Penicillins Allergy Unknown Verified 03/22/19 15:58 shellfish derived AdvReac Swelling Verified 03/29/19 12:23 Home Medications Medication Instructions Recorded Confirmed Last Taken Type carvediloL [Coreg] 12.5 mg PO BID 08/03/18 03/29/19 03/29/19 09:00 History guaiFENesin [Mucinex] 1,200 mg PO BID 08/03/18 03/29/19 03/28/19 08:00 History ALBUTEROL NEB's [Proventil 0.083% 2.5 mg IH Q4HRT PRN #1 nebu 08/05/18 03/29/19 03/29/19 08:00 Rx NEBS] Arformoterol Nebu [Brovana Nebu] 15 mcg IH Q12HRT #1 ml 08/05/18 03/29/19 03/01/19 08:00 Rx Montelukast [Singulair] 10 mg PO DAILY #30 tablet 08/05/18 03/29/19 03/27/19 08:00 Rx Albuterol Sulfate [Proair 90 mcg IH Q4HR PRN #2 [email or web address] 01/03/19 03/29/19 03/29/19 08:00 Rx Respiclick] AtorvaSTATin 10 mg PO QAM 03/22/19 03/29/19 03/28/19 08:00 History DULoxetine [Cymbalta] 30 mg PO QDAY 03/22/19 03/29/19 03/28/19 08:00 History Fluticasone/Umeclidin/Vilanter 1 each IH DAILY 03/22/19 03/29/19 03/29/19 10:00 History [Trelegy Ellipta 100-62.5-25] Pantoprazole [Protonix] 40 mg PO BID 03/22/19 03/29/19 03/29/19 08:00 History busPIRone [Buspar] 5 mg PO DAILY 03/22/19 03/29/19 03/29/19 08:00 History predniSONE [Deltasone] 20 mg PO QDAY 03/22/19 03/29/19 03/28/19 10:00 History Active Meds: Active Medications Albuterol (Proventil) 2.5 mg IH Q6HRT BUTCH Arformoterol Tartrate (Brovana Nebu) 15 mcg IH Q12HRT BUTCH Budesonide (Pulmicort) 0.5 mg IH Q12HRT BUTCH Enoxaparin Sodium (Enoxaparin) 40 mg SUB-Q QDAY BUTCH Fentanyl (Sublimaze) 50 mcg IV Q10MIN PRN PRN Reason: ANALGESIA Hydrocortisone Sodium Succinate (Solu-Cortef) 100 mg IV Q8HR BUTCH Hydromorphone HCl (Dilaudid) 0.25 mg IV Q3H PRN PRN Reason: Pain, Moderate (4-6) Hydrophilic Ointment (Vaseline Lip Therapy) 1 applic TP Q2HR PRN PRN Reason: Dry Lips Sodium Chloride (Nacl 0.9% 1000 Ml) 1,000 mls @ 75 mls/hr IV DIRECT BUTCH Last Admin: 03/30/19 06:05 Dose: 75 mls/hr Documented by: Fentanyl Citrate (Fentanyl Drip Premix) 2,000 mcg in 100 mls @ 3.357 mls/hr IV TITR BUTCH; Protocol Last Titration: 03/30/19 07:27 Dose: 2 mcg/kg/hr, 6.713 mls/hr Documented by: Propofol (Diprivan 10 Mg/Ml) 1,000 mg in 100 mls @ 2.014 mls/hr IV TITR BUTCH; Protocol Last Titration: 03/30/19 02:25 Dose: 20 mcg/kg/min, 8.056 mls/hr Documented by: Lorazepam (Ativan) 1 mg IV Q4H PRN PRN Reason: Anxiety Multi-Ingred Cream/Lotion/Oil/Oint (Artificial Tears Ophth Oint) 1 applic OU Q4HR PRN PRN Reason: Dry Eye(s) Naloxone HCl (Naloxone) 0.1 mg IV Q2MIN PRN PRN Reason: Res Rate </= 8 or 02 SAT < 92% Ondansetron HCl (Zofran) 4 mg IV Q8H PRN PRN Reason: N/V unrelieved by Reglan Pantoprazole Sodium (Protonix) 40 mg IV BID [facility] Review of Systems ROS unobtainable: due to endotracheal tube Physical Examination Vital signs: Vital Signs Temp Pulse Resp BP Pulse Ox 97.8 F 78 22 115/68 100 03/26/19 11:35 03/26/19 11:35 03/26/19 11:35 03/26/19 11:35 03/26/19 11:35 General appearance: no acute distress, alert Eyes: non-icteric ENT: other (orally intubated with a RASS of 0) Effort: normal Ascultation: Bilateral: diminished breath sounds Percussion: Bilateral: not dull Cardiovascular: regular rate and rhythm Gastrointestinal: hypoactive bowel sounds, other (post surgical changes) Extremities: no cyanosis, no edema, pink and warm, pulses normal Musculoskeletal: no deformities normal mental status, non-focal exam mood appropriate Results - Laboratory Findings CBC and BMP: 03/30/19 07:52 03/30/19 04:41 ABG POC ABG pH 7.246 (7.35-7.45) L 03/30/19 02:13 ABG pH 7.304 pH Units (7.350-7.450) L 03/30/19 03:35 POC ABG pCO2 62.4 (35-45) H 03/30/19 02:13 ABG pCO2 52.9 mm Hg 03/30/19 03:35 POC ABG pO2 160 (80-105) H 03/30/19 02:13 ABG pO2 94.2 mm Hg (80.0-90.0) H 03/30/19 03:35 POC ABG HCO3 27.2 (22-26 mml/L) 03/30/19 02:13 POC ABG Total CO2 29 (23-27mmol/L) 03/30/19 02:13 POC ABG O2 Sat 99 03/30/19 02:13 ABG O2 Saturation 97.0 % (95.0-99.0) 03/30/19 03:35 Abnormal lab findings: Abnormal Labs 03/30/19 03/30/19 03/30/19 01:25 01:25 02:13 WBC 26.5 H MCH 27 L RDW 15.5 H POC ABG pH 7.246 L ABG pH POC ABG pCO2 62.4 H POC ABG pO2 160 H ABG pO2 ABG Hemoglobin Oxyhemoglobin Sodium Potassium Carbon Dioxide Creatinine 0.6 L Glucose 122 H POC Glucose Calcium 8.0 L 03/30/19 03/30/19 03/30/19 02:34 03:35 04:41 WBC MCH RDW POC ABG pH ABG pH 7.304 L POC ABG pCO2 POC ABG pO2 ABG pO2 94.2 H ABG Hemoglobin 10.6 L Oxyhemoglobin 94.7 L Sodium 136 L Potassium 5.2 H Carbon Dioxide 18 L D Creatinine 0.5 L Glucose POC Glucose 134 H Calcium 8.0 L 03/30/19 07:52 WBC 28.8 H MCH 27 L RDW 15.7 H POC ABG pH ABG pH POC ABG pCO2 POC ABG pO2 ABG pO2 ABG Hemoglobin Oxyhemoglobin Sodium Potassium Carbon Dioxide Creatinine Glucose POC Glucose Calcium - Diagnostic Findings Chest x-ray: image reviewed (No evidence of acute disease) Assessment and Plan 58 y/o female with moderately severe COPD, admitted post op with lysis of adhesion, fistula repair and ureteral repair. 1. Will extubate this am 2. Hold on CIWA for now, but did place on PRN ativan 3. Continue stress dose steroids for now 4. Changed all the PO home meds I could to IV as her bowel will take a while to wake up 5. Nicotine patch needed 6. Follow up any surgery recs. CCT 31 minutes.
[2019-03-30] MEDS ORDERED: SODIUM CHLORIDE 0.9% 1000 ML 1,000 ML IV SCH (09:15)
[2019-03-30] MEDS: ARFORMOTEROL 15 MCG/2 ML NEBU IH SCH ×2 (09:42→20:11)
[2019-03-30] MEDS: BUDESONIDE 0.5 MG/2 ML NEBU IH SCH ×2 (09:42→20:11)
[2019-03-30] MEDS: METOPROLOL TARTRATE 5 MG/5 ML INJ IV SCH ×3 (10:00→19:18)
[2019-03-30] MEDS: HYDROCORTISONE SOD SUCC 100 MG/2 ML VIAL IV SCH ×3 (10:06→21:28)
[2019-03-30] MEDS: ENOXAPARIN 40 MG/0.4 ML INJ SUB-Q SCH (10:09)
[2019-03-30] MEDS: PANTOPRAZOLE 40 MG INJ IV SCH ×2 (10:09→21:29)
[2019-03-30] MEDS: NICOTINE 21 MG/24 HR PATCH TD SCH (10:11)
[2019-03-30] MEDS: HYDROmorphone 1 MG/1 ML INJ IV PRN ×3 (11:44→21:30)
[2019-03-30] MEDS: ONDANSETRON 4 MG/2 ML INJ IV PRN (11:50)
--- NOTE | 2019-03-30 12:08 | Progress Note ---
Subjective Date of service: 03/30/19 Interval history: f/u----intra operative consult (rt stent placed--DR. CHAVEZ) 58 y/o female with moderately severe COPD, admitted to the ICU post op from extensive abdominal surgery with lysis of adhesions and ureteral repair. Tolerated procedure well with no issues. present at bedside. Patient is following commands. ABD---WOUND CLEAN BARRON - PINK TINGED URINE A/p RECOMMEND BARRON AT LEAST 2 WKS CYSTO REMOVE STENT 4-6 WKS Objective - Constitutional Vitals: Vital Signs - 12hr 03/30/19 03/30/19 03/30/19 00:50 00:55 01:00 Temperature 98.6 F Pulse Rate 102 H 90 89 Pulse Rate [ Anterior Bilateral Throughout] Respiratory 20 20 21 Rate Respiratory Rate [Anterior Bilateral Throughout] Respiratory Rate [Chest] Blood Pressure 144/91 136/82 131/78 O2 Sat by Pulse 100 100 100 Oximetry 03/30/19 03/30/19 03/30/19 01:05 01:20 01:35 Temperature Pulse Rate 90 98 H 79 Pulse Rate [ Anterior Bilateral Throughout] Respiratory 20 20 20 Rate Respiratory Rate [Anterior Bilateral Throughout] Respiratory Rate [Chest] Blood Pressure 137/80 164/101 98/64 O2 Sat by Pulse 100 99 99 Oximetry 03/30/19 03/30/19 03/30/19 01:50 02:05 02:17 Temperature 97.4 F L Pulse Rate 72 77 83 Pulse Rate [ Anterior Bilateral Throughout] Respiratory 20 20 16 Rate Respiratory Rate [Anterior Bilateral Throughout] Respiratory Rate [Chest] Blood Pressure 98/60 104/59 O2 Sat by Pulse 100 100 Oximetry 03/30/19 03/30/19 03/30/19 02:21 02:25 02:30 Temperature 97.4 F L Pulse Rate 76 79 88 Pulse Rate [ Anterior Bilateral Throughout] Respiratory 19 19 17 Rate Respiratory Rate [Anterior Bilateral Throughout] Respiratory 19 Rate [Chest] Blood Pressure O2 Sat by Pulse 96 96 96 Oximetry 03/30/19 03/30/19 03/30/19 02:31 02:41 02:51 Temperature 97.4 F L Pulse Rate 84 69 68 Pulse Rate [ Anterior Bilateral Throughout] Respiratory 20 20 20 Rate Respiratory Rate [Anterior Bilateral Throughout] Respiratory Rate [Chest] Blood Pressure 110/59 110/59 101/61 O2 Sat by Pulse 94 96 98 Oximetry 03/30/19 03/30/19 03/30/19 03:00 03:11 03:21 Temperature Pulse Rate 67 68 67 Pulse Rate [ Anterior Bilateral Throughout] Respiratory 20 20 20 Rate Respiratory Rate [Anterior Bilateral Throughout] Respiratory Rate [Chest] Blood Pressure 101/55 101/55 97/59 O2 Sat by Pulse 98 98 98 Oximetry 03/30/19 03/30/19 03/30/19 03:30 03:36 03:40 Temperature 97.7 F Pulse Rate 66 67 Pulse Rate [ Anterior Bilateral Throughout] Respiratory 20 20 Rate Respiratory Rate [Anterior Bilateral Throughout] Respiratory Rate [Chest] Blood Pressure 95/56 95/56 O2 Sat by Pulse 99 99 Oximetry 03/30/19 03/30/19 03/30/19 03:51 04:00 04:10 Temperature Pulse Rate 68 77 68 Pulse Rate [ Anterior Bilateral Throughout] Respiratory 20 19 20 Rate Respiratory Rate [Anterior Bilateral Throughout] Respiratory Rate [Chest] Blood Pressure 98/61 92/62 92/62 O2 Sat by Pulse 100 99 100 Oximetry 03/30/19 03/30/19 03/30/19 04:21 04:30 04:38 Temperature Pulse Rate 69 70 77 Pulse Rate [ Anterior Bilateral Throughout] Respiratory 20 20 Rate Respiratory Rate [Anterior Bilateral Throughout] Respiratory Rate [Chest] Blood Pressure 97/59 100/55 100/55 O2 Sat by Pulse 100 99 100 Oximetry 03/30/19 03/30/19 03/30/19 04:41 04:51 05:00 Temperature Pulse Rate 78 80 73 Pulse Rate [ Anterior Bilateral Throughout] Respiratory 20 20 21 Rate Respiratory Rate [Anterior Bilateral Throughout] Respiratory Rate [Chest] Blood Pressure 100/55 96/59 93/57 O2 Sat by Pulse 100 99 98 Oximetry 03/30/19 03/30/19 03/30/19 05:11 05:21 05:30 Temperature Pulse Rate 78 77 72 Pulse Rate [ Anterior Bilateral Throughout] Respiratory 20 20 20 Rate Respiratory Rate [Anterior Bilateral Throughout] Respiratory Rate [Chest] Blood Pressure 93/57 99/56 90/58 O2 Sat by Pulse 98 98 99 Oximetry 03/30/19 03/30/19 03/30/19 08:00 08:05 09:29 Temperature 99.4 F Pulse Rate 83 83 106 H Pulse Rate [ Anterior Bilateral Throughout] Respiratory Rate Respiratory Rate [Anterior Bilateral Throughout] Respiratory Rate [Chest] Blood Pressure 105/63 122/77 O2 Sat by Pulse 99 98 Oximetry 03/30/19 03/30/19 03/30/19 09:33 09:58 10:00 Temperature Pulse Rate 110 H Pulse Rate [ 107 H Anterior Bilateral Throughout] Respiratory Rate Respiratory 20 Rate [Anterior Bilateral Throughout] Respiratory Rate [Chest] Blood Pressure 115/68 O2 Sat by Pulse 98 Oximetry - Labs CBC & Chem 7: 03/30/19 07:52 03/30/19 04:41 Labs: Abnormal lab results 03/30/19 03/30/19 03/30/19 Range/Units 01:25 01:25 02:13 WBC 26.5 H (4.5-11.0) K/mm3 MCH 27 L (28-32) pg RDW 15.5 H (13.2-15.2) % Seg Neuts % (Manual) (40.0-70.0) % Lymphocytes % (Manual) (13.4-35.0) % Seg Neutrophils # Man (1.8-7.7) K/mm3 Monocytes # (Manual) (0.0-0.8) K/mm3 POC ABG pH 7.246 L (7.35-7.45) ABG pH (7.350-7.450) pH Units POC ABG pCO2 62.4 H (35-45) POC ABG pO2 160 H (80-105) ABG pO2 (80.0-90.0) mm Hg ABG Hemoglobin (12.0-16.0) gm/dl Oxyhemoglobin (95.0-99.0) % Sodium (137-145) mmol/L Potassium (3.6-5.0) mmol/L Carbon Dioxide (22-30) mmol/L Creatinine 0.6 L (0.7-1.2) mg/dL Glucose 122 H (65-100) mg/dL POC Glucose (70-105) Calcium 8.0 L (8.4-10.2) mg/dL 03/30/19 03/30/19 03/30/19 Range/Units 02:34 03:35 04:41 WBC (4.5-11.0) K/mm3 MCH (28-32) pg RDW (13.2-15.2) % Seg Neuts % (Manual) (40.0-70.0) % Lymphocytes % (Manual) (13.4-35.0) % Seg Neutrophils # Man (1.8-7.7) K/mm3 Monocytes # (Manual) (0.0-0.8) K/mm3 POC ABG pH (7.35-7.45) ABG pH 7.304 L (7.350-7.450) pH Units POC ABG pCO2 (35-45) POC ABG pO2 (80-105) ABG pO2 94.2 H (80.0-90.0) mm Hg ABG Hemoglobin 10.6 L (12.0-16.0) gm/dl Oxyhemoglobin 94.7 L (95.0-99.0) % Sodium 136 L (137-145) mmol/L Potassium 5.2 H (3.6-5.0) mmol/L Carbon Dioxide 18 L D (22-30) mmol/L Creatinine 0.5 L (0.7-1.2) mg/dL Glucose (65-100) mg/dL POC Glucose 134 H (70-105) Calcium 8.0 L (8.4-10.2) mg/dL 03/30/19 Range/Units 07:52 WBC 28.8 H (4.5-11.0) K/mm3 MCH 27 L (28-32) pg RDW 15.7 H (13.2-15.2) % Seg Neuts % (Manual) 88.0 H (40.0-70.0) % Lymphocytes % (Manual) 7.0 L (13.4-35.0) % Seg Neutrophils # Man 25.3 H (1.8-7.7) K/mm3 Monocytes # (Manual) 1.4 H (0.0-0.8) K/mm3 POC ABG pH (7.35-7.45) ABG pH (7.350-7.450) pH Units POC ABG pCO2 (35-45) POC ABG pO2 (80-105) ABG pO2 (80.0-90.0) mm Hg ABG Hemoglobin (12.0-16.0) gm/dl Oxyhemoglobin (95.0-99.0) % Sodium (137-145) mmol/L Potassium (3.6-5.0) mmol/L Carbon Dioxide (22-30) mmol/L Creatinine (0.7-1.2) mg/dL Glucose (65-100) mg/dL POC Glucose (70-105) Calcium (8.4-10.2) mg/dL Medications & Allergies - Medications Allergies/Adverse Reactions: Allergies Penicillins Allergy (Verified 03/22/19 15:58) Unknown ABLE TO TAKE AMOXICILLIN AND AUGMENTIN WITH NO ISSUES shellfish derived Adverse Reaction (Verified 03/29/19 12:23) Swelling Home Medications: Home Medications Medication Instructions Recorded Confirmed Last Taken Type carvediloL [Coreg] 12.5 mg PO BID 08/03/18 03/29/19 03/29/19 09:00 History guaiFENesin [Mucinex] 1,200 mg PO BID 08/03/18 03/29/19 03/28/19 08:00 History ALBUTEROL NEB's [Proventil 0.083% 2.5 mg IH Q4HRT PRN #1 nebu 08/05/18 03/29/19 03/29/19 08:00 Rx NEBS] Arformoterol Nebu [Brovana Nebu] 15 mcg IH Q12HRT #1 ml 08/05/18 03/29/19 03/01/19 08:00 Rx Montelukast [Singulair] 10 mg PO DAILY #30 tablet 08/05/18 03/29/19 03/27/19 08:00 Rx Albuterol Sulfate [Proair 90 mcg IH Q4HR PRN #2 [email or web address] 01/03/19 03/29/19 03/29/19 08:00 Rx Respiclick] AtorvaSTATin 10 mg PO QAM 03/22/19 03/29/19 03/28/19 08:00 History DULoxetine [Cymbalta] 30 mg PO QDAY 03/22/19 03/29/19 03/28/19 08:00 History Fluticasone/Umeclidin/Vilanter 1 each IH DAILY 03/22/19 03/29/19 03/29/19 10:00 History [Trelegy Ellipta 100-62.5-25] Pantoprazole [Protonix] 40 mg PO BID 03/22/19 03/29/19 03/29/19 08:00 History busPIRone [Buspar] 5 mg PO DAILY 03/22/19 03/29/19 03/29/19 08:00 History predniSONE [Deltasone] 20 mg PO QDAY 03/22/19 03/29/19 03/28/19 10:00 History Active Medications: Generic Name Dose Route Start Last Admin Trade Name Freq PRN Reason Stop Dose Admin Albuterol 2.5 mg 03/30/19 14:00 Proventil IH Q6HRT BUTCH Arformoterol Tartrate 15 mcg 03/30/19 09:00 03/30/19 09:42 Brovana Nebu IH 15 mcg Q12HRT BUTCH Administration Budesonide 0.5 mg 03/30/19 09:00 03/30/19 09:42 Pulmicort IH 0.5 mg Q12HRT BUTCH Administration Enoxaparin Sodium 40 mg 03/30/19 10:00 03/30/19 10:09 Enoxaparin SUB-Q 40 mg QDAY BUTCH Administration Fentanyl 50 mcg 03/29/19 23:09 Sublimaze IV Q10MIN PRN ANALGESIA Hydrocortisone Sodium Succinate 100 mg 03/30/19 09:00 Solu-Cortef IV Q8HR [facility] Hydromorphone HCl 0.25 mg 03/29/19 15:44 Dilaudid IV Q3H PRN Pain, Moderate (4-6) Hydromorphone HCl 1 mg 03/30/19 09:11 03/30/19 11:44 Dilaudid IV 1 mg Q4H PRN Administration Pain , Severe (7-10) Hydrophilic Ointment 1 applic 03/29/19 23:09 Vaseline Lip Therapy TP Q2HR PRN Dry Lips Fentanyl Citrate 2,000 mcg in 100 mls @ 3.357 mls/hr 03/29/19 23:45 03/30/19 09:29 Fentanyl Drip Premix IV Infused TITR BUTCH Titration Protocol 1 MCG/KG/HR Propofol 1,000 mg in 100 mls @ 2.014 mls/hr 03/29/19 23:45 03/30/19 09:16 Diprivan 10 Mg/Ml IV 0 mcg/kg/min TITR BUTCH 0 mls/hr Titration Protocol 5 MCG/KG/MIN Sodium Chloride 1,000 mls @ 75 mls/hr 03/30/19 09:15 Nacl 0.9% 1000 Ml IV 03/31/19 22:34 DIRECT BUTCH Lorazepam 1 mg 03/30/19 08:46 Ativan IV Q4H PRN Anxiety Metoprolol Tartrate 5 mg 03/30/19 09:00 03/30/19 10:00 Metoprolol IV 5 mg Q6HR BUTCH Administration Multi-Ingred Cream/Lotion/Oil/Oint 1 applic 03/29/19 23:09 Artificial Tears Ophth Oint OU Q4HR PRN Dry Eye(s) Naloxone HCl 0.1 mg 03/29/19 15:44 Naloxone IV Q2MIN PRN Res Rate </= 8 or 02 SAT < 92% Nicotine 21 mg 03/30/19 10:00 03/30/19 10:11 Habitrol TD 21 mg QDAY BUTCH Administration Ondansetron HCl 4 mg 03/29/19 15:44 03/30/19 11:50 Zofran IV 4 mg Q8H PRN Administration N/V unrelieved by Monica Pantoprazole Sodium 40 mg 03/30/19 10:00 03/30/19 10:09 Protonix IV 40 mg BID BUTCH Administration
[2019-03-30] MEDS: ALBUTEROL 2.5 MG/3 ML NEBU IH SCH ×2 (14:10→21:48)
--- NOTE | 2019-03-30 15:10 | Post Operative Note ---
Pre-op diagnosis: Ureteral Trauma Post-op diagnosis: same Findings: trasection of right ureter Procedure: Right Ureteroureterosttomy Cysto, right stent retrograde Anesthesia: MEHRANA Surgeon: JACLYN CHAVEZ Net Mobile Developer: KENNY WETZEL Estimated blood loss: minimal Pathology: none Condition: stable Disposition: ICU
--- NOTE | 2019-03-30 17:47 | Operative Report ---
PREOPERATIVE DIAGNOSES: 1. Sigmoidal vaginal fistula. 2. History of diverticulitis. POSTOPERATIVE DIAGNOSES: 1. Sigmoidal vaginal fistula. 2. History of diverticulitis. PROCEDURES: 1. Robotic-assisted laparoscopic lysis of adhesions. 2. Open sigmoid colectomy with primary anastomosis. ATTENDING PHYSICIAN: Armando Phillips MD. SCHOOL LIBRARIAN: Yue Dorsey MD ANESTHESIA: General. ESTIMATED BLOOD LOSS: Approximately 500 mL. FLUIDS: Four liters. URINE OUTPUT: 400 mL for part of the case (Wallis catheter was removed when Urology did their portion of the procedure). DRAINS: A 15-Chilean round fully fluted drain. SPECIMENS: Sigmoid colon. COMPLICATIONS: Right ureter injury. DISPOSITION: Stable, transferred to Recovery. INDICATIONS: This is a 58-year-old female whom we had initially met during her last hospitalization for a new diagnosis of a colovaginal fistula. The patient is assessed to be in need for resection. Procedure, risks, benefits were explained to the patient and . Risks include but were not limited to infection, bleeding, pain, injury to surrounding structures, possible colostomy, and possible need for further procedures in the future. The patient understood and consented. Of note, we did have a lengthy discussion about the potential complexities of the case and whether they would feel better having a dedicated colorectal surgeon, offer was made in the hospital and in the clinic. They both said that on the day of surgery, they would decide. On the morning of surgery, I brought up the issue again. We had a tentative plan in the office of putting the camera in and if the case seemed very challenging, then potentially stopping at that point and allowing them to go to a colorectal surgeon. On the morning of surgery, both the and the said that it was not necessary if we had to do an open procedure that is fine, they would prefer to get it done here. OPERATIVE NOTE: The patient was brought to the operating room and placed on the table in supine position. After adequate general anesthesia was established, the patient was prepped and draped in the usual sterile fashion. The patient was in lithotomy. Wallis catheter had been placed. SCDs were in place. Antibiotics have been given. Time-out was called. I began by placing a Veress needle in left upper quadrant. I was able to insufflate on the first attempt. We then replaced that with a 5-mm port using the Optiview technique. There was no injury to the underlying structures. There were extensive adhesions in the midline. Therefore, we gradually added other ports. We began with the right upper quadrant port, which was 8 mm and used that to take down some of the adhesions with the LigaSure device. Once we cleared enough room for the right lower quadrant 12 mm port, we then inserted that one. We kept working amongst the 3 ports going back and forth to take down the adhesions in a careful manner. Subsequently, the second 12-mm port was inserted at the umbilicus. Once we felt we had cleared a sufficient amount of space, we then placed the patient in Trendelenburg position and docked the robot. Of note, the 12-mm port in the right lower quadrant had to be changed with an 8 mm as it did not fit with the robotic arm. It ended up being a significant portion of the case to take down the adhesions. The entire abdominal cavity was frozen with adhesions. Small bowel and large bowel everything had adhesions. In order to get down to the pelvis, a fairly wide dissection and lysis of adhesions were required, at least 3/4 of our time was spent taking down adhesions. This proved to be one of the most challenging portions of the case. A few small serosal tears were noted and they were repaired either with a 3-0 silk or a 3-0 V-Loc. We eventually got to the point where the instruments would not reach deep into the pelvis. I felt I had done all that I can do robotically with the limitations of range of motion and distance. Therefore, we converted back to a laparoscopic portion. Here too the instruments did not reach all the way into the pelvis. Therefore, it seemed of little use. Also, the bowel was falling into the field. Due to the adhesions, we could not flip the bowel all the way up towards the chest. We used her old lower midline incision and extended it just a little bit around the umbilicus. As the abdomen was insufflated, we were able to enter the peritoneal cavity safely. We now had the opportunity to examine all the bowel that we had previously . It turned out that the areas of serosal tears were very small. The magnification on the robot made it seem as though we had significant injuries, the area turned out to be incredibly small for all of them. I did not find any other points of injury, despite all the small bowel that we had freed while doing it robotically. Now that we had the abdomen open and had our hands in there, it was clear, there was still a lot more small bowel that was adhered down in the pelvis, so we slowly worked through all that. Eventually, we identified the lateral portion of the sigmoid colon. We followed that down to the vaginal cuff. We encountered very dense adhesions between the vaginal cuff and the colon, that entire area was more difficult to dissect as it was very firm, most likely from her previous diverticulitis. It was very difficult to see the exact tissue planes where we could see the planes, we began the dissection there, but then would lose it as we got deeper into the pelvis. There were couple points of bleeding on the right side that we had to use vascular clips for and eventually suture tied those areas to get controlled. During the separation of the small bowel from the sigmoid colon and mobilization of the sigmoid colon, we inadvertently divided the right ureter. We determined this fairly quickly. We could see urine coming out of the proximal end; therefore, Urology was called. While we waited, we continued on with the case. In the sigmoid colon from the vaginal cuff, we did eventually identify what was probably a 1-mm opening in both the sigmoid colon and vaginal cuff. The vaginal cuff area was oversewn with a 3-0 V-Loc suture with a running stitch. The dissection between the vaginal cuff and sigmoid colon was taken all the way down to the rectum until we had a nice healthy bowel that was free of any dense adhesions. We divided the bowel at that point with a contour stapler. Using the LigaSure device, we then mobilized the distal portion of the sigmoid that we were going to excise by dividing the mesentery very close to the bowel. We took this up to a point where we could see fairly normal bowel and then divided that with a EDOUARD stapler using a blue load. We checked the length prior to division where we are going to staple that portion of the bowel easily fell into the pelvis, even with the patient in Trendelenburg. We toweled off the area, opened up the staple line. Despite the bowel being very soft, the diameter was fairly small even the 25-mm dilator was tight here as this was the only size that we had, I had no choice, but used the 25 mm anvil. We closed the colon around it with a 2-0 Prolene stitch. I removed as much of the excess fat and mesentery from around the anvil as possible without damaging the bowel. At this point, Yue went down to perform the EEA stapling. She passed the stapler under our guidance. We positioned it so that the spike would come just above the staple line. We watched it slowly advance, the orange portion was exposed. The anvil was snapped down very nicely. We watched as the two ends were brought together. Circular stapler was fired and then removed easily. With the bowel clamped proximally, air was insufflated into the anus. The pelvis was filled with fluid. We saw absolutely no evidence of air leaks and the bowel did distend fairly significantly, so I was pleased with this result. We then removed the excess air and gently washed out that area. At this point, Dr. Polo had arrived. We continued on to mobilize a portion of omentum, so we had a long lip that we could bring down into the pelvis to cover the anastomosis. Please see Dr. Polo's note as he took over the case at this point. Once he had completed, we then came back in. Abdomen was thoroughly irrigated. A 15-Chilean drain was left along the right gutter adjacent to the ureteral repair and in the pelvis. Omentum was then placed over this area making sure that we could tuck it down in between the vaginal cuff and the new anastomotic staple line. Another portion easily laid over the ureteral repair. We secured the omentum to the vaginal cuff tissue with 2 interrupted 2-0 Vicryl sutures. It appeared to lay without any tension. I did not want it to move once the patient was moving around. Everything was hemostatic at this point. We closed the 12 mm port site on the right lower quadrant with a Munir-Tracy fascial closure device using a 0 Vicryl stitch. Midline fascia was closed with a running looped #1 PDS suture. I repeatedly checked underneath to make sure we did not grab any bowel when we were grabbing a portion of the fascia. I did not find any bowel that got caught in the suture and there were no gaps in the closure. Thereafter, wound was thoroughly irrigated. Skin sites were closed with william. In the midline, we intermittently placed Betadine-soaked chu. Skin was cleaned and dried, dressings were placed. The patient tolerated the procedure well. The one complication we had was the right ureteral injury. I spoke with the family. At the end of the case, I explained everything that happened including the ureteral injury. They were very understanding and appreciative for all the effort that we had made to help their family member. JOB# [id number] KERRI/CLAY FELDMAN
[2019-03-30] MEDS: LORazepam 2 MG/ML VIAL IV PRN (23:36)
[2019-03-31] MEDS: METOPROLOL TARTRATE 5 MG/5 ML INJ IV SCH ×4 (00:06→17:15)
[2019-03-31] MEDS: ALBUTEROL 2.5 MG/3 ML NEBU IH SCH ×4 (01:37→20:44)
[2019-03-31] MEDS: HYDROCORTISONE SOD SUCC 100 MG/2 ML VIAL IV SCH ×3 (06:01→21:12)
[2019-03-31] MEDS: BUDESONIDE 0.5 MG/2 ML NEBU IH SCH ×2 (07:20→20:44)
[2019-03-31] MEDS: ARFORMOTEROL 15 MCG/2 ML NEBU IH SCH ×2 (07:20→20:44)
[2019-03-31] MEDS: PANTOPRAZOLE 40 MG INJ IV SCH ×2 (10:14→21:11)
[2019-03-31] MEDS: ENOXAPARIN 40 MG/0.4 ML INJ SUB-Q SCH (10:15)
[2019-03-31] MEDS: NICOTINE 21 MG/24 HR PATCH TD SCH (10:15)
[2019-03-31] MEDS: HYDROmorphone 1 MG/1 ML INJ IV PRN ×3 (10:27→21:11)
[2019-03-31] MEDS ORDERED: SODIUM CHLORIDE NASAL SPRAY 44ML NS PRN (13:30)
--- NOTE | 2019-03-31 13:34 | Progress Note ---
Assessment and Plan 58 y/o female with moderately severe COPD, admitted post op with lysis of adhesion, fistula repair and ureteral repair. 1. Continue supplemental oxygen as she has chronic respiratory failure 2. Hold on CIWA for now, but did place on PRN ativan 3. Continue stress dose steroids for now, will wean tomorrow 4. Changed all the PO home meds I could to IV as her bowel will take a while to wake up 5. Nicotine patch 6. Follow up any surgery recs. Subjective Date of service: 03/31/19 Interval history: Successful extubation on yesterday. Awake and alert. Wants some water and does feel hungry. Has not passed flatulence yet. Objective Vital Signs - 12hr 03/31/19 03/31/19 03/31/19 04:00 04:20 07:21 Temperature 98.0 F Pulse Rate [ 90 Anterior Bilateral Throughout] Pulse Rate [ Apical] Respiratory 18 Rate Respiratory 20 Rate [Anterior Bilateral Throughout] O2 Sat by Pulse 96 Oximetry 03/31/19 03/31/19 03/31/19 08:00 08:15 08:20 Temperature 97.9 F Pulse Rate [ Anterior Bilateral Throughout] Pulse Rate [ 83 Apical] Respiratory 18 Rate Respiratory Rate [Anterior Bilateral Throughout] O2 Sat by Pulse 96 100 Oximetry 03/31/19 10:27 Temperature Pulse Rate [ Anterior Bilateral Throughout] Pulse Rate [ Apical] Respiratory 20 Rate Respiratory Rate [Anterior Bilateral Throughout] O2 Sat by Pulse Oximetry Constitutional: no acute distress, alert Eyes: non-icteric ENT: other (orally intubated with a RASS of 0) Effort: normal Ascultation: Bilateral: diminished breath sounds Percussion: Bilateral: not dull Cardiovascular: regular rate and rhythm Gastrointestinal: hypoactive bowel sounds, other (post surgical changes) Extremities: no cyanosis, no edema, pink and warm, pulses normal Neurologic: normal mental status, non-focal exam Psychiatric: mood appropriate CBC and BMP: 03/30/19 07:52 03/30/19 04:41 ABG, PT/INR, D-dimer: ABG POC ABG pH 7.246 (7.35-7.45) L 03/30/19 02:13 ABG pH 7.304 pH Units (7.350-7.450) L 03/30/19 03:35 POC ABG pCO2 62.4 (35-45) H 03/30/19 02:13 ABG pCO2 52.9 mm Hg 03/30/19 03:35 POC ABG pO2 160 (80-105) H 03/30/19 02:13 ABG pO2 94.2 mm Hg (80.0-90.0) H 03/30/19 03:35 POC ABG HCO3 27.2 (22-26 mml/L) 03/30/19 02:13 POC ABG Total CO2 29 (23-27mmol/L) 03/30/19 02:13 POC ABG O2 Sat 99 03/30/19 02:13 ABG O2 Saturation 97.0 % (95.0-99.0) 03/30/19 03:35 Abnormal lab findings: Abnormal Labs 03/30/19 03/30/19 03/30/19 01:25 01:25 02:13 WBC 26.5 H MCH 27 L RDW 15.5 H Seg Neuts % (Manual) Lymphocytes % (Manual) Seg Neutrophils # Man Monocytes # (Manual) POC ABG pH 7.246 L ABG pH POC ABG pCO2 62.4 H POC ABG pO2 160 H ABG pO2 ABG Hemoglobin Oxyhemoglobin Sodium Potassium Carbon Dioxide Creatinine 0.6 L Glucose 122 H POC Glucose Calcium 8.0 L 03/30/19 03/30/19 03/30/19 02:34 03:35 04:41 WBC MCH RDW Seg Neuts % (Manual) Lymphocytes % (Manual) Seg Neutrophils # Man Monocytes # (Manual) POC ABG pH ABG pH 7.304 L POC ABG pCO2 POC ABG pO2 ABG pO2 94.2 H ABG Hemoglobin 10.6 L Oxyhemoglobin 94.7 L Sodium 136 L Potassium 5.2 H Carbon Dioxide 18 L D Creatinine 0.5 L Glucose POC Glucose 134 H Calcium 8.0 L 03/30/19 07:52 WBC 28.8 H MCH 27 L RDW 15.7 H Seg Neuts % (Manual) 88.0 H Lymphocytes % (Manual) 7.0 L Seg Neutrophils # Man 25.3 H Monocytes # (Manual) 1.4 H POC ABG pH ABG pH POC ABG pCO2 POC ABG pO2 ABG pO2 ABG Hemoglobin Oxyhemoglobin Sodium Potassium Carbon Dioxide Creatinine Glucose POC Glucose Calcium
--- NOTE | 2019-03-31 13:47 | Progress Note ---
Assessment and Plan - Patient Problems (1) Colovaginal fistula Current Visit: No Status: Acute Plan to address problem: Pt stable. s/p robotic lysis of adhesions, open sigmoid colectomy, closure of vaginal fistula - 03/30 - POD#2. Discussed case with Dr. Gage. Appears to have done well with extubation. Neuro - appropriate CV - stable Pulm - extubated 03/30 - encourage pulmonary toilet GI - no output in NGT. +burping. Will try sips and chips and clamp NGT today - [place] to stay in 10-[address] Polo. ID - no active issues. Endo - stress dose steroids by ICU DVT prophylaxis - lovenox prophylaxis Dispo - ok for transfer to [facility] from my standpoint. Please call with questions. Subjective Date of service: 03/31/19 Patient Reports: Positive: no new complaints, no flatus, no bowel movement. Negative: nausea, vomiting Objective Vital Signs - 12hr 03/31/19 03/31/19 03/31/19 04:00 04:20 07:21 Temperature 98.0 F Pulse Rate [ 90 Anterior Bilateral Throughout] Pulse Rate [ Apical] Respiratory 18 Rate Respiratory 20 Rate [Anterior Bilateral Throughout] O2 Sat by Pulse 96 Oximetry 03/31/19 03/31/19 03/31/19 08:00 08:15 08:20 Temperature 97.9 F Pulse Rate [ Anterior Bilateral Throughout] Pulse Rate [ 83 Apical] Respiratory 18 Rate Respiratory Rate [Anterior Bilateral Throughout] O2 Sat by Pulse 96 100 Oximetry 03/31/19 10:27 Temperature Pulse Rate [ Anterior Bilateral Throughout] Pulse Rate [ Apical] Respiratory 20 Rate Respiratory Rate [Anterior Bilateral Throughout] O2 Sat by Pulse Oximetry - General physical appearance no distress, no pain, other (looks well) - Respiratory normal expansion, normal respiratory effort - Abdomen soft, not tender, bowel sounds hypoactive, not distended, not guarding, not rigid, surgical scars (C/D/I), other (MARBIN with serosang drainage) - Genitourinary other (reddish urine) - Integumentary no rash, no growths, no abnormal pigmentation - Psychiatric oriented to time, oriented to person, oriented to place, speech is normal, memory intact - Labs 03/30/19 07:52 03/30/19 04:41
[2019-03-31] MEDS: ONDANSETRON 4 MG/2 ML INJ IV PRN (20:33)
[2019-04-01] MEDS: LORazepam 2 MG/ML VIAL IV PRN (00:20)
[2019-04-01] MEDS: HYDROmorphone 1 MG/1 ML INJ IV PRN ×5 (01:35→22:21)
[2019-04-01] MEDS: ALBUTEROL 2.5 MG/3 ML NEBU IH SCH ×4 (02:18→19:57)
[2019-04-01] MEDS: HYDROCORTISONE SOD SUCC 100 MG/2 ML VIAL IV SCH ×3 (06:12→22:20)
[2019-04-01] MEDS: METOPROLOL TARTRATE 5 MG/5 ML INJ IV SCH ×4 (06:12→18:12)
[2019-04-01] MEDS: ARFORMOTEROL 15 MCG/2 ML NEBU IH SCH ×2 (07:58→19:57)
[2019-04-01] MEDS: BUDESONIDE 0.5 MG/2 ML NEBU IH SCH ×2 (07:58→19:57)
[2019-04-01] MEDS: NICOTINE 21 MG/24 HR PATCH TD SCH (09:24)
[2019-04-01] MEDS: PANTOPRAZOLE 40 MG INJ IV SCH ×2 (09:25→22:22)
[2019-04-01] MEDS: ENOXAPARIN 40 MG/0.4 ML INJ SUB-Q SCH (09:25)
--- NOTE | 2019-04-01 09:35 | Progress Note ---
Assessment and Plan 58 y/o female with moderately severe COPD, admitted post op with lysis of adhesion, fistula repair and ureteral repair. 1. Continue supplemental oxygen as she has chronic respiratory failure 2. Hold on CIWA for now, but did place on PRN ativan 3. Continue stress dose steroids for now, will start to wean today. 4. Changed all the PO home meds I could to IV as her bowel will take a while to wake up 5. Nicotine patch 6. Follow up any surgery recs for today. Tried sips but I did not wake up to assess how she did 7. Checked labs this am 8. Will transfer to step down once bed available 9. Will get PT/OT consult and get patient moving. Subjective Date of service: 04/01/19 Interval history: no acute events. Afebrile. Vitals stable. Asleep. In no distress and no family at bedside. Remainder of the review is negative. Objective Vital Signs - 12hr 04/01/19 04/01/19 04/01/19 00:00 04:00 06:12 Temperature 98.9 F 98.8 F Pulse Rate 87 96 H Pulse Rate [ Anterior Bilateral Throughout] Pulse Rate [ 99 H 99 H Apical] Respiratory 14 14 Rate Respiratory Rate [Anterior Bilateral Throughout] Blood Pressure 99/66 105/60 O2 Sat by Pulse 100 100 Oximetry 04/01/19 04/01/19 04/01/19 07:59 08:00 08:02 Temperature Pulse Rate 92 H Pulse Rate [ 95 H Anterior Bilateral Throughout] Pulse Rate [ 98 H Apical] Respiratory 23 Rate Respiratory 17 Rate [Anterior Bilateral Throughout] Blood Pressure O2 Sat by Pulse 100 100 Oximetry Constitutional: no acute distress, alert Eyes: non-icteric ENT: other (orally intubated with a RASS of 0) Effort: normal Ascultation: Bilateral: diminished breath sounds Percussion: Bilateral: not dull Cardiovascular: regular rate and rhythm Gastrointestinal: hypoactive bowel sounds, other (post surgical changes) Extremities: no cyanosis, no edema, pink and warm, pulses normal Neurologic: normal mental status, non-focal exam Psychiatric: mood appropriate CBC and BMP: 03/30/19 07:52 03/30/19 04:41 ABG, PT/INR, D-dimer: ABG POC ABG pH 7.246 (7.35-7.45) L 03/30/19 02:13 ABG pH 7.304 pH Units (7.350-7.450) L 03/30/19 03:35 POC ABG pCO2 62.4 (35-45) H 03/30/19 02:13 ABG pCO2 52.9 mm Hg 03/30/19 03:35 POC ABG pO2 160 (80-105) H 03/30/19 02:13 ABG pO2 94.2 mm Hg (80.0-90.0) H 03/30/19 03:35 POC ABG HCO3 27.2 (22-26 mml/L) 03/30/19 02:13 POC ABG Total CO2 29 (23-27mmol/L) 03/30/19 02:13 POC ABG O2 Sat 99 03/30/19 02:13 ABG O2 Saturation 97.0 % (95.0-99.0) 03/30/19 03:35 Abnormal lab findings: Abnormal Labs 03/30/19 03/30/19 03/30/19 01:25 01:25 02:13 WBC 26.5 H MCH 27 L RDW 15.5 H Seg Neuts % (Manual) Lymphocytes % (Manual) Seg Neutrophils # Man Monocytes # (Manual) POC ABG pH 7.246 L ABG pH POC ABG pCO2 62.4 H POC ABG pO2 160 H ABG pO2 ABG Hemoglobin Oxyhemoglobin Sodium Potassium Carbon Dioxide Creatinine 0.6 L Glucose 122 H POC Glucose Calcium 8.0 L 03/30/19 03/30/19 03/30/19 02:34 03:35 04:41 WBC MCH RDW Seg Neuts % (Manual) Lymphocytes % (Manual) Seg Neutrophils # Man Monocytes # (Manual) POC ABG pH ABG pH 7.304 L POC ABG pCO2 POC ABG pO2 ABG pO2 94.2 H ABG Hemoglobin 10.6 L Oxyhemoglobin 94.7 L Sodium 136 L Potassium 5.2 H Carbon Dioxide 18 L D Creatinine 0.5 L Glucose POC Glucose 134 H Calcium 8.0 L 03/30/19 07:52 WBC 28.8 H MCH 27 L RDW 15.7 H Seg Neuts % (Manual) 88.0 H Lymphocytes % (Manual) 7.0 L Seg Neutrophils # Man 25.3 H Monocytes # (Manual) 1.4 H POC ABG pH ABG pH POC ABG pCO2 POC ABG pO2 ABG pO2 ABG Hemoglobin Oxyhemoglobin Sodium Potassium Carbon Dioxide Creatinine Glucose POC Glucose Calcium
[2019-04-01 10:42] LABS: Hematocrit 29.2 % (30.3-42.9); Hemoglobin 9.3 gm/dl (10.1-14.3); Mean Corpuscular HGB Conc 32 % (30-34); Mean Corpuscular Volume 85 fl (79-97); Platelet Count 290 K/mm3 (140-440); Red Blood Count 3.42 M/mm3 (3.65-5.03); Red Cell Distribution Width 15.2 % (13.2-15.2)
[2019-04-01 10:53] LABS: BUN/Creatinine Ratio 23; Blood Urea Nitrogen 9 mg/dL (7-17); Hemolysis Index 2
[2019-04-01 11:23] LABS: Total Cells Counted 100
[2019-04-01 11:24] LABS: Band Neutrophils # (Manual) 0.2 K/mm3; Basophils % (Manual) 0 % (0.0-1.8); Eosinophils % (Manual) 0 % (0.0-4.3); Ovalocytes Few; Platelet Estimate Consistent w Auto; Target Cells Few
--- NOTE | 2019-04-01 12:49 | Progress Note ---
Assessment and Plan - Patient Problems (1) Colovaginal fistula Current Visit: No Status: Acute Plan to address problem: Pt stable. s/p robotic lysis of adhesions, open sigmoid colectomy, closure of vaginal fistula - 03/30 - POD#3. Appears to have done well with NGT clamping and sips/chips. Neuro - appropriate CV - stable Pulm - extubated 03/30 - encourage pulmonary toilet. To clarify her status - pt was planned to be kept intubated post-op due to her significant chronic lung disease. There was no issue of lung failure. She was extubated successfully the next day as planned. GI - d/c NGT. start clears. advance once bowel function resumes. - [place] to stay in 10-[address] Polo. ID - no active issues. I do not believe there is a SIRS issue. The leukocytosis is most likely related to her steroids and post-op state. There is no apparent infectious issue at this time. Endo - stress dose steroids by ICU DVT prophylaxis - lovenox prophylaxis Dispo - ok for transfer to [facility] from my standpoint. Please call with questions. Subjective Date of service: 04/01/19 Patient Reports: Positive: no flatus, other (only complains of sore throat. Did well with sips and chips. ). Negative: nausea, vomiting Objective Vital Signs - 12hr 04/01/19 04/01/19 04/01/19 04:00 06:12 07:59 Temperature 98.8 F Pulse Rate 96 H Pulse Rate [ 95 H Anterior Bilateral Throughout] Pulse Rate [ 99 H Apical] Respiratory 14 Rate Respiratory 17 Rate [Anterior Bilateral Throughout] Blood Pressure 105/60 O2 Sat by Pulse 100 Oximetry 04/01/19 04/01/19 04/01/19 08:00 08:02 08:41 Temperature 98.3 F Pulse Rate 92 H Pulse Rate [ Anterior Bilateral Throughout] Pulse Rate [ 98 H Apical] Respiratory 23 Rate Respiratory Rate [Anterior Bilateral Throughout] Blood Pressure O2 Sat by Pulse 100 100 Oximetry 04/01/19 04/01/19 11:08 12:00 Temperature Pulse Rate 89 Pulse Rate [ Anterior Bilateral Throughout] Pulse Rate [ 100 H Apical] Respiratory 21 Rate Respiratory Rate [Anterior Bilateral Throughout] Blood Pressure 126/71 O2 Sat by Pulse 100 Oximetry - General physical appearance no distress, no pain - Eyes normal occular movement - Respiratory normal expansion, normal respiratory effort - Abdomen soft, bowel sounds hypoactive, not distended, not guarding, not rigid, other (MARBIN with serosang drainage) - Psychiatric oriented to time, oriented to person, oriented to place, speech is normal, memory intact - Labs 04/01/19 09:57 04/01/19 09:57 Diabetes panel 04/01/19 Range/Units 09:57 Sodium 143 D (137-145) mmol/L Potassium 4.3 (3.6-5.0) mmol/L Chloride 101.7 (98-107) mmol/L Carbon Dioxide 28 D (22-30) mmol/L BUN 9 (7-17) mg/dL Creatinine 0.4 L (0.7-1.2) mg/dL Glucose 79 (65-100) mg/dL Calcium 9.0 (8.4-10.2) mg/dL Calcium panel 04/01/19 Range/Units 09:57 Calcium 9.0 (8.4-10.2) mg/dL Phosphorus 2.70 (2.5-4.5) mg/dL Pituitary panel 04/01/19 Range/Units 09:57 Sodium 143 D (137-145) mmol/L Potassium 4.3 (3.6-5.0) mmol/L Chloride 101.7 (98-107) mmol/L Carbon Dioxide 28 D (22-30) mmol/L BUN 9 (7-17) mg/dL Creatinine 0.4 L (0.7-1.2) mg/dL Glucose 79 (65-100) mg/dL Calcium 9.0 (8.4-10.2) mg/dL Adrenal panel 04/01/19 Range/Units 09:57 Sodium 143 D (137-145) mmol/L Potassium 4.3 (3.6-5.0) mmol/L Chloride 101.7 (98-107) mmol/L Carbon Dioxide 28 D (22-30) mmol/L BUN 9 (7-17) mg/dL Creatinine 0.4 L (0.7-1.2) mg/dL Glucose 79 (65-100) mg/dL Calcium 9.0 (8.4-10.2) mg/dL
[2019-04-02] MEDS: ALBUTEROL 2.5 MG/3 ML NEBU IH SCH ×4 (02:07→21:47)
[2019-04-02] MEDS: HYDROmorphone 1 MG/1 ML INJ IV PRN ×2 (03:01→21:54)
[2019-04-02] MEDS: METOPROLOL TARTRATE 5 MG/5 ML INJ IV SCH ×3 (05:56→13:43)
[2019-04-02] MEDS: HYDROCORTISONE SOD SUCC 100 MG/2 ML VIAL IV SCH ×3 (05:56→21:53)
--- NOTE | 2019-04-02 08:14 | Progress Note ---
Assessment and Plan - Patient Problems (1) Colovaginal fistula Current Visit: No Status: Acute Plan to address problem: Pt stable. s/p robotic lysis of adhesions, open sigmoid colectomy, closure of vaginal fistula - 03/30 - POD#4. Appears to have done well with clear liquid diet Neuro - appropriate CV - stable Pulm - extubated 03/30 - encourage pulmonary toilet. To clarify her status - pt was planned to be kept intubated post-op due to her significant chronic lung disease. There was no issue of lung failure. She was extubated successfully the next day as planned. GI - bowel function starting to return. advance to full liquid diet - [place] to stay in 10-[address] Polo. ID - no active issues. I do not believe there is a SIRS issue. The leukocytosis is most likely related to her steroids and post-op state. There is no apparent infectious issue at this time. Endo - stress dose steroids by ICU DVT prophylaxis - lovenox prophylaxis Dispo - ok for transfer to [facility] from my standpoint. Please call with questions. Subjective Date of service: 04/02/19 Patient Reports: Positive: tolerating liquids well, flatus (small amount). Negative: nausea, vomiting Objective Vital Signs - 12hr 04/01/19 04/02/19 04/02/19 23:19 00:00 02:08 Temperature 99.2 F Pulse Rate 90 Pulse Rate [ 92 H Anterior Bilateral Throughout] Pulse Rate [ 96 H Apical] Respiratory 22 Rate Respiratory 16 Rate [Anterior Bilateral Throughout] Blood Pressure 104/59 O2 Sat by Pulse 100 Oximetry 04/02/19 04/02/19 04/02/19 03:39 04:00 05:56 Temperature 98.8 F Pulse Rate 90 Pulse Rate [ Anterior Bilateral Throughout] Pulse Rate [ 96 H Apical] Respiratory 22 Rate Respiratory Rate [Anterior Bilateral Throughout] Blood Pressure 91/50 O2 Sat by Pulse 100 Oximetry - General physical appearance no distress, no pain, other (looks well) - Respiratory normal expansion, normal respiratory effort, other (only 500cc on IS with proper technique) - Abdomen soft, bowel sounds hypoactive, not distended, not guarding, not rigid, wound (Clean. chu removed today) - Psychiatric oriented to time, oriented to person, oriented to place, speech is normal, memory intact - Labs 04/01/19 09:57 04/01/19 09:57 Diabetes panel 04/01/19 Range/Units 09:57 Sodium 143 D (137-145) mmol/L Potassium 4.3 (3.6-5.0) mmol/L Chloride 101.7 (98-107) mmol/L Carbon Dioxide 28 D (22-30) mmol/L BUN 9 (7-17) mg/dL Creatinine 0.4 L (0.7-1.2) mg/dL Glucose 79 (65-100) mg/dL Calcium 9.0 (8.4-10.2) mg/dL Calcium panel 04/01/19 Range/Units 09:57 Calcium 9.0 (8.4-10.2) mg/dL Phosphorus 2.70 (2.5-4.5) mg/dL Pituitary panel 04/01/19 Range/Units 09:57 Sodium 143 D (137-145) mmol/L Potassium 4.3 (3.6-5.0) mmol/L Chloride 101.7 (98-107) mmol/L Carbon Dioxide 28 D (22-30) mmol/L BUN 9 (7-17) mg/dL Creatinine 0.4 L (0.7-1.2) mg/dL Glucose 79 (65-100) mg/dL Calcium 9.0 (8.4-10.2) mg/dL Adrenal panel 04/01/19 Range/Units 09:57 Sodium 143 D (137-145) mmol/L Potassium 4.3 (3.6-5.0) mmol/L Chloride 101.7 (98-107) mmol/L Carbon Dioxide 28 D (22-30) mmol/L BUN 9 (7-17) mg/dL Creatinine 0.4 L (0.7-1.2) mg/dL Glucose 79 (65-100) mg/dL Calcium 9.0 (8.4-10.2) mg/dL
[2019-04-02] MEDS: ENOXAPARIN 40 MG/0.4 ML INJ SUB-Q SCH (09:45)
[2019-04-02] MEDS: PANTOPRAZOLE 40 MG INJ IV SCH ×2 (09:45→21:53)
[2019-04-02] MEDS: NICOTINE 21 MG/24 HR PATCH TD SCH (09:46)
[2019-04-02] MEDS: HYDROcodone/ACETAMINOPHEN 5-325 MG TAB PO PRN (09:46)
[2019-04-02] MEDS: BUDESONIDE 0.5 MG/2 ML NEBU IH SCH ×2 (10:04→21:46)
[2019-04-02] MEDS: ARFORMOTEROL 15 MCG/2 ML NEBU IH SCH ×2 (10:05→21:46)
--- NOTE | 2019-04-02 11:04 | Progress Note ---
Assessment and Plan 58 y/o female with moderately severe COPD, admitted post op with lysis of adhesion, fistula repair and ureteral repair. 1. Continue supplemental oxygen as she has chronic respiratory failure 2. Hold on CIWA for now, but did place on PRN ativan 3. Continue to wean stress dose steroids. 4. Changed all the PO home meds I could to IV as her bowel will take a while to wake up 5. Nicotine patch 6. Follow up any surgery recs. Now on full liquid. 7. Will check labs once over the weekends 8. Will transfer to step down once bed available 9. Will get PT/OT consult and get patient moving. 10. Will change meds to PO on Friday Subjective Date of service: 04/02/19 Interval history: No acute events. Pulm status is stable. Doing well from a surgical standpoint. Objective Vital Signs - 12hr 04/01/19 04/02/19 04/02/19 23:19 00:00 02:08 Temperature 99.2 F Pulse Rate 90 Pulse Rate [ 92 H Anterior Bilateral Throughout] Pulse Rate [ 96 H Apical] Respiratory 22 Rate Respiratory 16 Rate [Anterior Bilateral Throughout] Blood Pressure 104/59 O2 Sat by Pulse 100 Oximetry 04/02/19 04/02/19 04/02/19 03:39 04:00 05:56 Temperature 98.8 F Pulse Rate 90 Pulse Rate [ Anterior Bilateral Throughout] Pulse Rate [ 96 H Apical] Respiratory 22 Rate Respiratory Rate [Anterior Bilateral Throughout] Blood Pressure 91/50 O2 Sat by Pulse 100 Oximetry Constitutional: no acute distress, alert Eyes: non-icteric ENT: other (orally intubated with a RASS of 0) Effort: normal Ascultation: Bilateral: diminished breath sounds Percussion: Bilateral: not dull Cardiovascular: regular rate and rhythm Gastrointestinal: hypoactive bowel sounds, other (post surgical changes) Extremities: no cyanosis, no edema, pink and warm, pulses normal Neurologic: normal mental status, non-focal exam Psychiatric: mood appropriate CBC and BMP: 04/01/19 09:57 04/01/19 09:57 ABG, PT/INR, D-dimer: ABG POC ABG pH 7.246 (7.35-7.45) L 03/30/19 02:13 ABG pH 7.304 pH Units (7.350-7.450) L 03/30/19 03:35 POC ABG pCO2 62.4 (35-45) H 03/30/19 02:13 ABG pCO2 52.9 mm Hg 03/30/19 03:35 POC ABG pO2 160 (80-105) H 03/30/19 02:13 ABG pO2 94.2 mm Hg (80.0-90.0) H 03/30/19 03:35 POC ABG HCO3 27.2 (22-26 mml/L) 03/30/19 02:13 POC ABG Total CO2 29 (23-27mmol/L) 03/30/19 02:13 POC ABG O2 Sat 99 03/30/19 02:13 ABG O2 Saturation 97.0 % (95.0-99.0) 03/30/19 03:35 Abnormal lab findings: Abnormal Labs 03/30/19 03/30/19 03/30/19 01:25 01:25 02:13 WBC 26.5 H RBC Hgb Hct MCH 27 L RDW 15.5 H Seg Neuts % (Manual) Lymphocytes % (Manual) Seg Neutrophils # Man Lymphocytes # (Manual) Monocytes # (Manual) POC ABG pH 7.246 L ABG pH POC ABG pCO2 62.4 H POC ABG pO2 160 H ABG pO2 ABG Hemoglobin Oxyhemoglobin Sodium Potassium Carbon Dioxide Creatinine 0.6 L Glucose 122 H POC Glucose Calcium 8.0 L 03/30/19 03/30/19 03/30/19 02:34 03:35 04:41 WBC RBC Hgb Hct MCH RDW Seg Neuts % (Manual) Lymphocytes % (Manual) Seg Neutrophils # Man Lymphocytes # (Manual) Monocytes # (Manual) POC ABG pH ABG pH 7.304 L POC ABG pCO2 POC ABG pO2 ABG pO2 94.2 H ABG Hemoglobin 10.6 L Oxyhemoglobin 94.7 L Sodium 136 L Potassium 5.2 H Carbon Dioxide 18 L D Creatinine 0.5 L Glucose POC Glucose 134 H Calcium 8.0 L 03/30/19 04/01/19 04/01/19 07:52 09:57 09:57 WBC 28.8 H 16.2 H RBC 3.42 L Hgb 9.3 L Hct 29.2 L MCH 27 L 27 L RDW 15.7 H Seg Neuts % (Manual) 88.0 H 96.0 H Lymphocytes % (Manual) 7.0 L 1.0 L Seg Neutrophils # Man 25.3 H 15.6 H Lymphocytes # (Manual) 0.2 L Monocytes # (Manual) 1.4 H POC ABG pH ABG pH POC ABG pCO2 POC ABG pO2 ABG pO2 ABG Hemoglobin Oxyhemoglobin Sodium Potassium Carbon Dioxide Creatinine 0.4 L Glucose POC Glucose Calcium
[2019-04-03] MEDS: ALBUTEROL 2.5 MG/3 ML NEBU IH SCH ×4 (02:48→21:47)
[2019-04-03] MEDS: METOPROLOL TARTRATE 5 MG/5 ML INJ IV SCH ×5 (03:01→18:42)
[2019-04-03] MEDS: HYDROCORTISONE SOD SUCC 100 MG/2 ML VIAL IV SCH ×3 (07:45→21:03)
[2019-04-03] MEDS: ARFORMOTEROL 15 MCG/2 ML NEBU IH SCH ×2 (08:01→21:05)
[2019-04-03] MEDS: BUDESONIDE 0.5 MG/2 ML NEBU IH SCH ×2 (08:01→21:05)
[2019-04-03] MEDS: ENOXAPARIN 40 MG/0.4 ML INJ SUB-Q SCH (09:37)
[2019-04-03] MEDS: NICOTINE 21 MG/24 HR PATCH TD SCH (09:37)
[2019-04-03] MEDS: PANTOPRAZOLE 40 MG INJ IV SCH ×2 (09:37→21:03)
[2019-04-03] MEDS: HYDROmorphone 1 MG/1 ML INJ IV PRN (10:36)
--- NOTE | 2019-04-03 11:15 | Progress Note ---
Assessment and Plan - Patient Problems (1) Colovaginal fistula Current Visit: No Status: Acute Plan to address problem: Pt stable. s/p robotic lysis of adhesions, open sigmoid colectomy, closure of vaginal fistula - 03/30 - POD#5. Appears to have done well with full liquid diet Neuro - appropriate CV - stable Pulm - extubated 03/30 - encourage pulmonary toilet. To clarify her status - pt was planned to be kept intubated post-op due to her significant chronic lung disease. There was no issue of lung failure. She was extubated successfully the next day as planned. GI - bowel function starting to return. continue full liquid diet at least 1 more day. - [place] to stay in 10-[address] Polo. ID - no active issues. I do not believe there is a SIRS issue. The leukocytosis is most likely related to her steroids and post-op state. There is no apparent infectious issue at this time. Endo - stress dose steroids by ICU DVT prophylaxis - lovenox prophylaxis Activity - needs to ambulate Dispo - ok for transfer to [facility] from my standpoint. Please call with questions. Subjective Date of service: 04/03/19 Patient Reports: Positive: no new complaints, feels better, tolerating liquids well, flatus, no bowel movement. Negative: nausea, vomiting Objective Vital Signs - 12hr 04/03/19 04/03/19 04/03/19 00:00 00:01 00:53 Temperature 98.2 F Pulse Rate 81 80 Pulse Rate [ Anterior Bilateral Throughout] Pulse Rate [ 81 Apical] Pulse Rate [ From Monitor] Respiratory 16 15 Rate Respiratory Rate [Anterior Bilateral Throughout] Blood Pressure 129/67 O2 Sat by Pulse 100 100 Oximetry 04/03/19 04/03/19 04/03/19 01:01 02:01 02:49 Temperature Pulse Rate 78 83 Pulse Rate [ 82 Anterior Bilateral Throughout] Pulse Rate [ Apical] Pulse Rate [ From Monitor] Respiratory 14 9 L Rate Respiratory 12 Rate [Anterior Bilateral Throughout] Blood Pressure 129/67 129/67 O2 Sat by Pulse 100 99 Oximetry 04/03/19 04/03/19 04/03/19 03:01 03:41 04:00 Temperature 98.1 F Pulse Rate 90 Pulse Rate [ Anterior Bilateral Throughout] Pulse Rate [ 79 Apical] Pulse Rate [ From Monitor] Respiratory 15 16 Rate Respiratory Rate [Anterior Bilateral Throughout] Blood Pressure 129/67 O2 Sat by Pulse 100 100 Oximetry 04/03/19 04/03/19 04/03/19 04:01 04:10 05:01 Temperature Pulse Rate 79 79 77 Pulse Rate [ Anterior Bilateral Throughout] Pulse Rate [ Apical] Pulse Rate [ From Monitor] Respiratory 17 11 L Rate Respiratory Rate [Anterior Bilateral Throughout] Blood Pressure 119/66 119/66 O2 Sat by Pulse 100 99 Oximetry 04/03/19 04/03/19 04/03/19 08:00 08:01 08:24 Temperature 98.0 F Pulse Rate Pulse Rate [ 83 Anterior Bilateral Throughout] Pulse Rate [ Apical] Pulse Rate [ 83 From Monitor] Respiratory 18 Rate Respiratory 18 Rate [Anterior Bilateral Throughout] Blood Pressure O2 Sat by Pulse 96 96 Oximetry - General physical appearance no distress, no pain, other (looks good) - Respiratory normal expansion, normal respiratory effort - Abdomen soft, not tender, not distended, not guarding, not rigid, wound (clean. some betadine discoloration. No purulent drainage. No erythema.) - Psychiatric oriented to time, oriented to person, oriented to place, speech is normal, memory intact - Labs 04/01/19 09:57 04/01/19 09:57
[2019-04-03] MEDS: HYDROcodone/ACETAMINOPHEN 5-325 MG TAB PO PRN ×2 (12:45→22:21)
--- NOTE | 2019-04-03 13:29 | Progress Note ---
Assessment and Plan - Patient Problems (1) COPD (chronic obstructive pulmonary disease) Current Visit: No Status: Acute Qualifiers: COPD type: unspecified COPD Qualified Code(s): J44.9 - Chronic obstructive pulmonary disease, unspecified (2) Chest pain Current Visit: No Status: Acute Qualifiers: Chest pain type: unspecified Qualified Code(s): R07.9 - Chest pain, unspecified (3) Chronic respiratory failure Current Visit: No Status: Acute (4) Colovaginal fistula Current Visit: No Status: Acute (5) Diverticulitis large intestine Current Visit: No Status: Acute Qualifiers: Diverticulitis bleeding: without bleeding Diverticulitis complication: without perforation or abscess Qualified Code(s): K57.32 - Diverticulitis of large intestine without perforation or abscess without bleeding (6) HLD (hyperlipidemia) Current Visit: No Status: Acute Qualifiers: Hyperlipidemia type: mixed hyperlipidemia Qualified Code(s): E78.2 - Mixed hyperlipidemia (7) HTN (hypertension) Current Visit: No Status: Acute Qualifiers: Hypertension type: essential hypertension Qualified Code(s): I10 - Essential (primary) hypertension (8) PAGE on CPAP Current Visit: No Status: Acute (9) SIRS (systemic inflammatory response syndrome) Current Visit: No Status: Acute Subjective Interval history: oob Objective Vital Signs - 12hr 04/03/19 04/03/19 04/03/19 02:01 02:49 03:01 Temperature Pulse Rate 83 90 Pulse Rate [ 82 Anterior Bilateral Throughout] Pulse Rate [ Apical] Pulse Rate [ From Monitor] Respiratory 9 L 15 Rate Respiratory 12 Rate [Anterior Bilateral Throughout] Blood Pressure 129/67 129/67 O2 Sat by Pulse 99 100 Oximetry 04/03/19 04/03/19 04/03/19 03:41 04:00 04:01 Temperature 98.1 F Pulse Rate 79 Pulse Rate [ Anterior Bilateral Throughout] Pulse Rate [ 79 Apical] Pulse Rate [ From Monitor] Respiratory 16 17 Rate Respiratory Rate [Anterior Bilateral Throughout] Blood Pressure 119/66 O2 Sat by Pulse 100 100 Oximetry 04/03/19 04/03/19 04/03/19 04:10 05:01 06:01 Temperature Pulse Rate 79 77 74 Pulse Rate [ Anterior Bilateral Throughout] Pulse Rate [ Apical] Pulse Rate [ From Monitor] Respiratory 11 L 18 Rate Respiratory Rate [Anterior Bilateral Throughout] Blood Pressure 119/66 119/66 O2 Sat by Pulse 99 100 Oximetry 04/03/19 04/03/19 04/03/19 07:01 08:00 08:01 Temperature Pulse Rate 86 90 100 H Pulse Rate [ 83 Anterior Bilateral Throughout] Pulse Rate [ Apical] Pulse Rate [ 83 From Monitor] Respiratory 11 L 18 18 Rate Respiratory 18 Rate [Anterior Bilateral Throughout] Blood Pressure 119/66 119/66 O2 Sat by Pulse 99 96 99 Oximetry 04/03/19 04/03/19 04/03/19 08:24 09:00 10:00 Temperature 98.0 F Pulse Rate 87 81 Pulse Rate [ Anterior Bilateral Throughout] Pulse Rate [ Apical] Pulse Rate [ From Monitor] Respiratory 19 20 Rate Respiratory Rate [Anterior Bilateral Throughout] Blood Pressure 124/71 125/71 O2 Sat by Pulse 96 100 Oximetry 04/03/19 04/03/19 04/03/19 11:01 12:00 12:01 Temperature Pulse Rate 77 80 84 Pulse Rate [ Anterior Bilateral Throughout] Pulse Rate [ Apical] Pulse Rate [ From Monitor] Respiratory 15 18 Rate Respiratory Rate [Anterior Bilateral Throughout] Blood Pressure 125/71 126/70 O2 Sat by Pulse 97 96 Oximetry 04/03/19 04/03/19 04/03/19 12:39 12:55 13:00 Temperature 97.9 F Pulse Rate 84 71 Pulse Rate [ Anterior Bilateral Throughout] Pulse Rate [ Apical] Pulse Rate [ From Monitor] Respiratory 18 Rate Respiratory Rate [Anterior Bilateral Throughout] Blood Pressure 134/74 124/68 O2 Sat by Pulse 98 Oximetry Constitutional: no acute distress, alert Eyes: non-icteric ENT: other (orally intubated with a RASS of 0) Effort: normal Ascultation: Bilateral: diminished breath sounds Percussion: Bilateral: not dull Cardiovascular: regular rate and rhythm Gastrointestinal: hypoactive bowel sounds, other (post surgical changes) Extremities: no cyanosis, no edema, pink and warm, pulses normal Neurologic: normal mental status, non-focal exam Psychiatric: mood appropriate CBC and BMP: 04/01/19 09:57 04/01/19 09:57 ABG, PT/INR, D-dimer: ABG POC ABG pH 7.246 (7.35-7.45) L 03/30/19 02:13 ABG pH 7.304 pH Units (7.350-7.450) L 03/30/19 03:35 POC ABG pCO2 62.4 (35-45) H 03/30/19 02:13 ABG pCO2 52.9 mm Hg 03/30/19 03:35 POC ABG pO2 160 (80-105) H 03/30/19 02:13 ABG pO2 94.2 mm Hg (80.0-90.0) H 03/30/19 03:35 POC ABG HCO3 27.2 (22-26 mml/L) 03/30/19 02:13 POC ABG Total CO2 29 (23-27mmol/L) 03/30/19 02:13 POC ABG O2 Sat 99 03/30/19 02:13 ABG O2 Saturation 97.0 % (95.0-99.0) 03/30/19 03:35 Abnormal lab findings: Abnormal Labs 03/30/19 03/30/19 03/30/19 01:25 01:25 02:13 WBC 26.5 H RBC Hgb Hct MCH 27 L RDW 15.5 H Seg Neuts % (Manual) Lymphocytes % (Manual) Seg Neutrophils # Man Lymphocytes # (Manual) Monocytes # (Manual) POC ABG pH 7.246 L ABG pH POC ABG pCO2 62.4 H POC ABG pO2 160 H ABG pO2 ABG Hemoglobin Oxyhemoglobin Sodium Potassium Carbon Dioxide Creatinine 0.6 L Glucose 122 H POC Glucose Calcium 8.0 L 03/30/19 03/30/19 03/30/19 02:34 03:35 04:41 WBC RBC Hgb Hct MCH RDW Seg Neuts % (Manual) Lymphocytes % (Manual) Seg Neutrophils # Man Lymphocytes # (Manual) Monocytes # (Manual) POC ABG pH ABG pH 7.304 L POC ABG pCO2 POC ABG pO2 ABG pO2 94.2 H ABG Hemoglobin 10.6 L Oxyhemoglobin 94.7 L Sodium 136 L Potassium 5.2 H Carbon Dioxide 18 L D Creatinine 0.5 L Glucose POC Glucose 134 H Calcium 8.0 L 03/30/19 04/01/19 04/01/19 07:52 09:57 09:57 WBC 28.8 H 16.2 H RBC 3.42 L Hgb 9.3 L Hct 29.2 L MCH 27 L 27 L RDW 15.7 H Seg Neuts % (Manual) 88.0 H 96.0 H Lymphocytes % (Manual) 7.0 L 1.0 L Seg Neutrophils # Man 25.3 H 15.6 H Lymphocytes # (Manual) 0.2 L Monocytes # (Manual) 1.4 H POC ABG pH ABG pH POC ABG pCO2 POC ABG pO2 ABG pO2 ABG Hemoglobin Oxyhemoglobin Sodium Potassium Carbon Dioxide Creatinine 0.4 L Glucose POC Glucose Calcium
[2019-04-04] MEDS: METOPROLOL TARTRATE 5 MG/5 ML INJ IV SCH ×2 (00:45→05:23)
[2019-04-04] MEDS: ALBUTEROL 2.5 MG/3 ML NEBU IH SCH ×4 (04:03→22:19)
[2019-04-04] MEDS: HYDROCORTISONE SOD SUCC 100 MG/2 ML VIAL IV SCH ×3 (05:24→22:33)
--- NOTE | 2019-04-04 07:34 | Progress Note ---
Assessment and Plan - Patient Problems (1) COPD (chronic obstructive pulmonary disease) Current Visit: No Status: Acute Qualifiers: COPD type: unspecified COPD Qualified Code(s): J44.9 - Chronic obstructive pulmonary disease, unspecified (2) Chest pain Current Visit: No Status: Acute Qualifiers: Chest pain type: unspecified Qualified Code(s): R07.9 - Chest pain, unspecified (3) Chronic respiratory failure Current Visit: No Status: Acute (4) Colovaginal fistula Current Visit: No Status: Acute (5) Diverticulitis large intestine Current Visit: No Status: Acute Qualifiers: Diverticulitis bleeding: without bleeding Diverticulitis complication: without perforation or abscess Qualified Code(s): K57.32 - Diverticulitis of large intestine without perforation or abscess without bleeding (6) HLD (hyperlipidemia) Current Visit: No Status: Acute Qualifiers: Hyperlipidemia type: mixed hyperlipidemia Qualified Code(s): E78.2 - Mixed hyperlipidemia (7) PAGE on CPAP Current Visit: No Status: Acute (8) SIRS (systemic inflammatory response syndrome) Current Visit: No Status: Acute Subjective Interval history: feels better Objective Vital Signs - 12hr 04/03/19 04/03/19 04/03/19 20:00 20:17 21:00 Temperature 98.9 F Pulse Rate 71 83 Pulse Rate [ Anterior Bilateral Throughout] Respiratory 15 15 Rate Respiratory Rate [Anterior Bilateral Throughout] Blood Pressure 126/63 133/80 O2 Sat by Pulse 97 97 Oximetry 04/03/19 04/03/19 04/03/19 21:17 21:19 22:00 Temperature Pulse Rate 84 69 Pulse Rate [ Anterior Bilateral Throughout] Respiratory 15 16 Rate Respiratory Rate [Anterior Bilateral Throughout] Blood Pressure 133/80 132/78 O2 Sat by Pulse 97 100 100 Oximetry 04/03/19 04/03/19 04/04/19 22:08 23:00 00:00 Temperature Pulse Rate 70 67 Pulse Rate [ 82 Anterior Bilateral Throughout] Respiratory 14 10 L Rate Respiratory 20 Rate [Anterior Bilateral Throughout] Blood Pressure 116/67 121/71 O2 Sat by Pulse 100 100 Oximetry 04/04/19 04/04/19 04/04/19 00:45 01:00 02:01 Temperature Pulse Rate 80 67 64 Pulse Rate [ Anterior Bilateral Throughout] Respiratory 11 L 14 Rate Respiratory Rate [Anterior Bilateral Throughout] Blood Pressure 131/68 123/69 121/61 O2 Sat by Pulse 100 100 Oximetry 04/04/19 04/04/19 04/04/19 03:00 04:00 05:01 Temperature Pulse Rate 59 L 60 82 Pulse Rate [ Anterior Bilateral Throughout] Respiratory 12 12 12 Rate Respiratory Rate [Anterior Bilateral Throughout] Blood Pressure 123/70 125/71 128/109 O2 Sat by Pulse 100 100 100 Oximetry 04/04/19 05:23 Temperature Pulse Rate 59 L Pulse Rate [ Anterior Bilateral Throughout] Respiratory Rate Respiratory Rate [Anterior Bilateral Throughout] Blood Pressure 128/109 O2 Sat by Pulse Oximetry Constitutional: no acute distress, alert Eyes: non-icteric ENT: oropharynx moist Effort: normal Ascultation: Bilateral: diminished breath sounds, wheezes (mild) Percussion: Bilateral: not dull Cardiovascular: regular rate and rhythm Gastrointestinal: hypoactive bowel sounds, other (post surgical changes) Integumentary: normal Extremities: no cyanosis, no edema, pink and warm, pulses normal Neurologic: normal mental status, non-focal exam Psychiatric: mood appropriate, affect normal CBC and BMP: 04/01/19 09:57 04/01/19 09:57 ABG, PT/INR, D-dimer: ABG POC ABG pH 7.246 (7.35-7.45) L 03/30/19 02:13 ABG pH 7.304 pH Units (7.350-7.450) L 03/30/19 03:35 POC ABG pCO2 62.4 (35-45) H 03/30/19 02:13 ABG pCO2 52.9 mm Hg 03/30/19 03:35 POC ABG pO2 160 (80-105) H 03/30/19 02:13 ABG pO2 94.2 mm Hg (80.0-90.0) H 03/30/19 03:35 POC ABG HCO3 27.2 (22-26 mml/L) 03/30/19 02:13 POC ABG Total CO2 29 (23-27mmol/L) 03/30/19 02:13 POC ABG O2 Sat 99 03/30/19 02:13 ABG O2 Saturation 97.0 % (95.0-99.0) 03/30/19 03:35 Abnormal lab findings: Abnormal Labs 03/30/19 03/30/19 03/30/19 01:25 01:25 02:13 WBC 26.5 H RBC Hgb Hct MCH 27 L RDW 15.5 H Seg Neuts % (Manual) Lymphocytes % (Manual) Seg Neutrophils # Man Lymphocytes # (Manual) Monocytes # (Manual) POC ABG pH 7.246 L ABG pH POC ABG pCO2 62.4 H POC ABG pO2 160 H ABG pO2 ABG Hemoglobin Oxyhemoglobin Sodium Potassium Carbon Dioxide Creatinine 0.6 L Glucose 122 H POC Glucose Calcium 8.0 L 03/30/19 03/30/19 03/30/19 02:34 03:35 04:41 WBC RBC Hgb Hct MCH RDW Seg Neuts % (Manual) Lymphocytes % (Manual) Seg Neutrophils # Man Lymphocytes # (Manual) Monocytes # (Manual) POC ABG pH ABG pH 7.304 L POC ABG pCO2 POC ABG pO2 ABG pO2 94.2 H ABG Hemoglobin 10.6 L Oxyhemoglobin 94.7 L Sodium 136 L Potassium 5.2 H Carbon Dioxide 18 L D Creatinine 0.5 L Glucose POC Glucose 134 H Calcium 8.0 L 03/30/19 04/01/19 04/01/19 07:52 09:57 09:57 WBC 28.8 H 16.2 H RBC 3.42 L Hgb 9.3 L Hct 29.2 L MCH 27 L 27 L RDW 15.7 H Seg Neuts % (Manual) 88.0 H 96.0 H Lymphocytes % (Manual) 7.0 L 1.0 L Seg Neutrophils # Man 25.3 H 15.6 H Lymphocytes # (Manual) 0.2 L Monocytes # (Manual) 1.4 H POC ABG pH ABG pH POC ABG pCO2 POC ABG pO2 ABG pO2 ABG Hemoglobin Oxyhemoglobin Sodium Potassium Carbon Dioxide Creatinine 0.4 L Glucose POC Glucose Calcium
[2019-04-04] MEDS: ENOXAPARIN 40 MG/0.4 ML INJ SUB-Q SCH (10:00)
[2019-04-04] MEDS: PANTOPRAZOLE 40 MG TAB PO SCH ×2 (10:31→22:33)
[2019-04-04] MEDS: NICOTINE 21 MG/24 HR PATCH TD SCH (10:32)
[2019-04-04] MEDS: ARFORMOTEROL 15 MCG/2 ML NEBU IH SCH ×2 (10:56→22:19)
[2019-04-04] MEDS: BUDESONIDE 0.5 MG/2 ML NEBU IH SCH ×2 (10:56→22:18)
[2019-04-04] MEDS: carvediloL 12.5 MG TAB PO SCH ×2 (12:00→22:33)
[2019-04-04] MEDS: HYDROmorphone 1 MG/1 ML INJ IV PRN ×2 (12:48→22:33)
--- NOTE | 2019-04-04 13:26 | Progress Note ---
Assessment and Plan - Patient Problems (1) Colovaginal fistula Current Visit: No Status: Acute Plan to address problem: Pt stable. s/p robotic lysis of adhesions, open sigmoid colectomy, closure of vaginal fistula - 03/30 - POD#6. Appears to have done well with full liquid diet Neuro - appropriate CV - stable Pulm - extubated 03/30 - encourage pulmonary toilet. To clarify her status - pt was planned to be kept intubated post-op due to her significant chronic lung disease. There was no issue of lung failure. She was extubated successfully the next day as planned. GI - bowel function starting to return. advance to regular diet and start senna. - [place] to stay in 10-[address] Polo. ID - no active issues. I do not believe there is a SIRS issue. The leukocytosis is most likely related to her steroids and post-op state. There is no apparent infectious issue at this time. Endo - stress dose steroids by ICU DVT prophylaxis - lovenox prophylaxis Activity - needs to ambulate Dispo - if regular diet tolerated, ok to start planning for discharge from my standpoint. Will need to find out what Urology recommends for out-pt plan. Please call with questions. Subjective Date of service: 04/04/19 Patient Reports: Positive: no new complaints, feels better, tolerating liquids well, flatus, no bowel movement. Negative: nausea, vomiting Objective Vital Signs - 12hr 04/04/19 04/04/19 04/04/19 02:01 03:00 04:00 Temperature Pulse Rate 64 59 L 60 Pulse Rate [ Anterior Bilateral Throughout] Respiratory 14 12 12 Rate Respiratory Rate [Anterior Bilateral Throughout] Blood Pressure 121/61 123/70 125/71 O2 Sat by Pulse 100 100 100 Oximetry 04/04/19 04/04/19 04/04/19 05:01 05:23 08:00 Temperature 98.3 F Pulse Rate 82 59 L Pulse Rate [ Anterior Bilateral Throughout] Respiratory 12 Rate Respiratory Rate [Anterior Bilateral Throughout] Blood Pressure 128/109 128/109 O2 Sat by Pulse 100 Oximetry 04/04/19 04/04/19 10:00 10:56 Temperature Pulse Rate Pulse Rate [ 84 Anterior Bilateral Throughout] Respiratory Rate Respiratory 20 Rate [Anterior Bilateral Throughout] Blood Pressure O2 Sat by Pulse 100 Oximetry - General physical appearance no distress, no pain, obese, other (smiling and sitting on bedside talking to visitors) - Eyes normal occular movement - Respiratory normal expansion, normal respiratory effort - Abdomen other (MARBIN drain with minimal serosang drainage) - Psychiatric oriented to time, oriented to person, oriented to place, speech is normal, memory intact - Labs 04/01/19 09:57 04/01/19 09:57
[2019-04-04] MEDS: SENNOSIDES 8.6 MG TAB PO SCH (22:33)
[2019-04-04] MEDS: LORazepam 2 MG/ML VIAL IV PRN (22:33)
[2019-04-05] MEDS: ALBUTEROL 2.5 MG/3 ML NEBU IH SCH ×4 (03:32→20:13)
[2019-04-05] MEDS: HYDROCORTISONE SOD SUCC 100 MG/2 ML VIAL IV SCH ×3 (05:47→23:17)
[2019-04-05] MEDS: BUDESONIDE 0.5 MG/2 ML NEBU IH SCH ×2 (08:52→20:13)
[2019-04-05] MEDS: ARFORMOTEROL 15 MCG/2 ML NEBU IH SCH ×2 (08:52→20:13)
[2019-04-05] MEDS: NICOTINE 21 MG/24 HR PATCH TD SCH (09:41)
[2019-04-05] MEDS: PANTOPRAZOLE 40 MG TAB PO SCH ×2 (09:41→23:24)
[2019-04-05] MEDS: carvediloL 12.5 MG TAB PO SCH ×2 (09:41→23:23)
[2019-04-05] MEDS: ENOXAPARIN 40 MG/0.4 ML INJ SUB-Q SCH (09:45)
--- NOTE | 2019-04-05 09:47 | Progress Note ---
Assessment and Plan - Patient Problems (1) Colovaginal fistula Current Visit: No Status: Acute Plan to address problem: Pt stable. s/p robotic lysis of adhesions, open sigmoid colectomy, closure of vaginal fistula - 03/30 - POD#7. Increased serous drainage from midline wound and MARBIN. ?fascial dehiscence ?urine leak from ureter Neuro - appropriate CV - stable Pulm - extubated 03/30 - encourage pulmonary toilet. To clarify her status - pt was planned to be kept intubated post-op due to her significant chronic lung disease. There was no issue of lung failure. She was extubated successfully the next day as planned. GI - bowel function starting to return. Cont regular diet and senna. May have some component of fascial dehiscence due to increased drainage on dressing. Nothing to do for it now. If present, will eventually develop hernia which will be delt with in the future. Will ask wound nurse to eval for incisional vac. Will help with drainage management. - [place] to stay in 10-[address] Polo. Noted increased output from MARBIN and decreased output from [place]. Will check creatinine level in MARIBN to eval for urine leak from ureter repair. ID - no active issues. I do not believe there is a SIRS issue. The leukocytosis is most likely related to her steroids and post-op state. There is no apparent infectious issue at this time. Endo - stress dose steroids by ICU DVT prophylaxis - lovenox prophylaxis Activity - needs to ambulate Dispo - if regular diet tolerated and ambulating safely, ok to start planning for discharge from my standpoint. Will need to find out what Urology recommends for out-pt plan. Please call with questions. Subjective Date of service: 04/05/19 Patient Reports: Positive: feels better, pain is less (but still present in midline area), tolerating a regular diet, flatus, no bowel movement (feels like it is coming soon), afebrile. Negative: nausea, vomiting Objective Vital Signs - 12hr 04/04/19 04/04/19 04/04/19 22:00 22:01 22:19 Temperature Pulse Rate 69 Pulse Rate [ 88 Anterior Bilateral Throughout] Respiratory 12 Rate Respiratory 20 Rate [Anterior Bilateral Throughout] Blood Pressure 126/70 O2 Sat by Pulse 98 100 Oximetry 04/04/19 04/04/19 04/04/19 22:33 22:50 23:00 Temperature Pulse Rate 70 76 81 Pulse Rate [ Anterior Bilateral Throughout] Respiratory 22 19 Rate Respiratory Rate [Anterior Bilateral Throughout] Blood Pressure 138/81 138/81 132/84 O2 Sat by Pulse 98 92 Oximetry 04/05/19 04/05/19 04/05/19 00:00 01:00 02:00 Temperature 98.8 F Pulse Rate 78 90 73 Pulse Rate [ 72 Anterior Bilateral Throughout] Respiratory 19 16 16 Rate Respiratory 20 Rate [Anterior Bilateral Throughout] Blood Pressure 124/74 125/85 117/75 O2 Sat by Pulse 94 84 100 Oximetry 04/05/19 04/05/19 04/05/19 03:00 04:00 04:05 Temperature 98.9 F Pulse Rate 71 71 69 Pulse Rate [ Anterior Bilateral Throughout] Respiratory 18 16 Rate Respiratory Rate [Anterior Bilateral Throughout] Blood Pressure 118/81 113/73 O2 Sat by Pulse 99 97 Oximetry 04/05/19 04/05/19 04/05/19 05:00 06:00 09:16 Temperature Pulse Rate 64 74 Pulse Rate [ 87 Anterior Bilateral Throughout] Respiratory 19 16 Rate Respiratory 20 Rate [Anterior Bilateral Throughout] Blood Pressure 123/82 115/76 O2 Sat by Pulse 100 100 Oximetry 04/05/19 09:17 Temperature Pulse Rate Pulse Rate [ Anterior Bilateral Throughout] Respiratory Rate Respiratory Rate [Anterior Bilateral Throughout] Blood Pressure O2 Sat by Pulse 98 Oximetry - General physical appearance no distress, no pain, other (looks well. Appears slightly tired) - Eyes normal occular movement - Respiratory normal expansion, normal respiratory effort - Abdomen soft, tender (only in midline. rest is nontender. ), not distended, not guarding, not rigid, wound (serous drainage from midline wound. MARBIN with mainly serous drainage.) - Psychiatric oriented to time, oriented to person, oriented to place, speech is normal, memory intact - Labs 04/01/19 09:57 04/01/19 09:57
--- NOTE | 2019-04-05 11:02 | Progress Note ---
Assessment and Plan 58 y/o female with moderately severe COPD, admitted post op with lysis of adhesion, fistula repair and ureteral repair. 1. Continue supplemental oxygen as she has chronic respiratory failure 2. Hold on CIWA for now, but did place on PRN ativan 3. Continue to wean stress dose steroids. Will change back to PO at discharge 4. Changed all the PO home meds I could to IV as her bowel will take a while to wake up 5. Nicotine patch 6. Follow up any surgery recs. Now on regular diet. Sending MARBIN drain for Cr to make sure no leaking 7. Will get PT/OT consult and get patient moving. 8. spoke to patient, would be better if she could be discharged tomorrow. I don't think surgery would have an issue with this. patient alerting family to get prepared. Subjective Date of service: 04/05/19 Interval history: No acute events. Stable in IMCU Objective Vital Signs - 12hr 04/04/19 04/05/19 04/05/19 23:00 00:00 01:00 Temperature 98.8 F Pulse Rate 81 78 90 Pulse Rate [ Anterior Bilateral Throughout] Respiratory 19 19 16 Rate Respiratory Rate [Anterior Bilateral Throughout] Blood Pressure 132/84 124/74 125/85 O2 Sat by Pulse 92 94 84 Oximetry 04/05/19 04/05/19 04/05/19 02:00 03:00 04:00 Temperature 98.9 F Pulse Rate 73 71 71 Pulse Rate [ 72 Anterior Bilateral Throughout] Respiratory 16 18 16 Rate Respiratory 20 Rate [Anterior Bilateral Throughout] Blood Pressure 117/75 118/81 113/73 O2 Sat by Pulse 100 99 97 Oximetry 04/05/19 04/05/19 04/05/19 04:05 05:00 06:00 Temperature Pulse Rate 69 64 74 Pulse Rate [ Anterior Bilateral Throughout] Respiratory 19 16 Rate Respiratory Rate [Anterior Bilateral Throughout] Blood Pressure 123/82 115/76 O2 Sat by Pulse 100 100 Oximetry 04/05/19 04/05/19 04/05/19 09:16 09:17 09:41 Temperature Pulse Rate 82 Pulse Rate [ 87 Anterior Bilateral Throughout] Respiratory Rate Respiratory 20 Rate [Anterior Bilateral Throughout] Blood Pressure 116/87 O2 Sat by Pulse 98 Oximetry Constitutional: no acute distress, alert Eyes: non-icteric ENT: oropharynx moist Effort: normal Ascultation: Bilateral: diminished breath sounds, wheezes (mild) Percussion: Bilateral: not dull Cardiovascular: regular rate and rhythm Gastrointestinal: hypoactive bowel sounds, other (post surgical changes) Integumentary: normal Extremities: no cyanosis, no edema, pink and warm, pulses normal Neurologic: normal mental status, non-focal exam Psychiatric: mood appropriate, affect normal CBC and BMP: 04/01/19 09:57 04/01/19 09:57 ABG, PT/INR, D-dimer: ABG POC ABG pH 7.246 (7.35-7.45) L 03/30/19 02:13 ABG pH 7.304 pH Units (7.350-7.450) L 03/30/19 03:35 POC ABG pCO2 62.4 (35-45) H 03/30/19 02:13 ABG pCO2 52.9 mm Hg 03/30/19 03:35 POC ABG pO2 160 (80-105) H 03/30/19 02:13 ABG pO2 94.2 mm Hg (80.0-90.0) H 03/30/19 03:35 POC ABG HCO3 27.2 (22-26 mml/L) 03/30/19 02:13 POC ABG Total CO2 29 (23-27mmol/L) 03/30/19 02:13 POC ABG O2 Sat 99 03/30/19 02:13 ABG O2 Saturation 97.0 % (95.0-99.0) 03/30/19 03:35 Abnormal lab findings: Abnormal Labs 03/30/19 03/30/19 03/30/19 01:25 01:25 02:13 WBC 26.5 H RBC Hgb Hct MCH 27 L RDW 15.5 H Seg Neuts % (Manual) Lymphocytes % (Manual) Seg Neutrophils # Man Lymphocytes # (Manual) Monocytes # (Manual) POC ABG pH 7.246 L ABG pH POC ABG pCO2 62.4 H POC ABG pO2 160 H ABG pO2 ABG Hemoglobin Oxyhemoglobin Sodium Potassium Carbon Dioxide Creatinine 0.6 L Glucose 122 H POC Glucose Calcium 8.0 L 03/30/19 03/30/19 03/30/19 02:34 03:35 04:41 WBC RBC Hgb Hct MCH RDW Seg Neuts % (Manual) Lymphocytes % (Manual) Seg Neutrophils # Man Lymphocytes # (Manual) Monocytes # (Manual) POC ABG pH ABG pH 7.304 L POC ABG pCO2 POC ABG pO2 ABG pO2 94.2 H ABG Hemoglobin 10.6 L Oxyhemoglobin 94.7 L Sodium 136 L Potassium 5.2 H Carbon Dioxide 18 L D Creatinine 0.5 L Glucose POC Glucose 134 H Calcium 8.0 L 03/30/19 04/01/19 04/01/19 07:52 09:57 09:57 WBC 28.8 H 16.2 H RBC 3.42 L Hgb 9.3 L Hct 29.2 L MCH 27 L 27 L RDW 15.7 H Seg Neuts % (Manual) 88.0 H 96.0 H Lymphocytes % (Manual) 7.0 L 1.0 L Seg Neutrophils # Man 25.3 H 15.6 H Lymphocytes # (Manual) 0.2 L Monocytes # (Manual) 1.4 H POC ABG pH ABG pH POC ABG pCO2 POC ABG pO2 ABG pO2 ABG Hemoglobin Oxyhemoglobin Sodium Potassium Carbon Dioxide Creatinine 0.4 L Glucose POC Glucose Calcium
--- NOTE | 2019-04-05 11:21 | Progress Note ---
Subjective Date of service: 04/05/19 Interval history: f/u----intra operative consult (rt stent placed--DR. CHAVEZ) 03-29-19 58 y/o female with moderately severe COPD, admitted to the ICU post op from extensive abdominal surgery with lysis of adhesions and ureteral repair. Tolerated procedure well with no issues. Spoke with Dr. Gage. ABD---WOUND CLEAN [place] - urine clear A/p RECOMMEND [place] AT LEAST 1-2 WKS (Aicha in my office will coordinate static cystogram & [place] removal)) CYSTO REMOVE STENT 4- WKS Objective - Constitutional Vitals: Vital Signs - 12hr 04/05/19 04/05/19 04/05/19 00:00 01:00 02:00 Temperature 98.8 F Pulse Rate 78 90 73 Pulse Rate [ 72 Anterior Bilateral Throughout] Respiratory 19 16 16 Rate Respiratory 20 Rate [Anterior Bilateral Throughout] Blood Pressure 124/74 125/85 117/75 O2 Sat by Pulse 94 84 100 Oximetry 04/05/19 04/05/19 04/05/19 03:00 04:00 04:05 Temperature 98.9 F Pulse Rate 71 71 69 Pulse Rate [ Anterior Bilateral Throughout] Respiratory 18 16 Rate Respiratory Rate [Anterior Bilateral Throughout] Blood Pressure 118/81 113/73 O2 Sat by Pulse 99 97 Oximetry 04/05/19 04/05/19 04/05/19 05:00 06:00 09:16 Temperature Pulse Rate 64 74 Pulse Rate [ 87 Anterior Bilateral Throughout] Respiratory 19 16 Rate Respiratory 20 Rate [Anterior Bilateral Throughout] Blood Pressure 123/82 115/76 O2 Sat by Pulse 100 100 Oximetry 04/05/19 04/05/19 09:17 09:41 Temperature Pulse Rate 82 Pulse Rate [ Anterior Bilateral Throughout] Respiratory Rate Respiratory Rate [Anterior Bilateral Throughout] Blood Pressure 116/87 O2 Sat by Pulse 98 Oximetry - Labs CBC & Chem 7: 04/01/19 09:57 04/01/19 09:57 Medications & Allergies - Medications Allergies/Adverse Reactions: Allergies Penicillins Allergy (Verified 03/22/19 15:58) Unknown ABLE TO TAKE AMOXICILLIN AND AUGMENTIN WITH NO ISSUES lactose Adverse Reaction (Verified 04/05/19 10:53) Unknown shellfish derived Adverse Reaction (Verified 03/29/19 12:23) Swelling Home Medications: Home Medications Medication Instructions Recorded Confirmed Last Taken Type carvediloL [Coreg] 12.5 mg PO BID 08/03/18 03/29/19 03/29/19 09:00 History guaiFENesin [Mucinex] 1,200 mg PO BID 08/03/18 03/29/19 03/28/19 08:00 History ALBUTEROL NEB's [Proventil 0.083% 2.5 mg IH Q4HRT PRN #1 nebu 08/05/18 03/29/19 03/29/19 08:00 Rx NEBS] Arformoterol Nebu [Brovana Nebu] 15 mcg IH Q12HRT #1 ml 08/05/18 03/29/19 03/01/19 08:00 Rx Montelukast [Singulair] 10 mg PO DAILY #30 tablet 08/05/18 03/29/19 03/27/19 08:00 Rx Albuterol Sulfate [Proair 90 mcg IH Q4HR PRN #2 aer.[email or web address].ba 01/03/19 03/29/19 03/29/19 08:00 Rx Respiclick] AtorvaSTATin 10 mg PO QAM 03/22/19 03/29/19 03/28/19 08:00 History DULoxetine [Cymbalta] 30 mg PO QDAY 03/22/19 03/29/19 03/28/19 08:00 History Fluticasone/Umeclidin/Vilanter 1 each IH DAILY 03/22/19 03/29/19 03/29/19 10:00 History [Trelegy Ellipta 100-62.5-25] Pantoprazole [Protonix] 40 mg PO BID 03/22/19 03/29/19 03/29/19 08:00 History busPIRone [Buspar] 5 mg PO DAILY 03/22/19 03/29/19 03/29/19 08:00 History predniSONE [Deltasone] 20 mg PO QDAY 03/22/19 03/29/19 03/28/19 10:00 History Active Medications: Generic Name Dose Route Start Last Admin Trade Name Freq PRN Reason Stop Dose Admin Acetaminophen/Hydrocodone Bitart 2 each 04/02/19 09:00 04/03/19 22:21 [place] 5/325 PO 2 each Q6H PRN Administration Pain, Moderate (4-6) Albuterol 2.5 mg 03/30/19 14:00 04/05/19 08:52 Proventil IH 2.5 mg Q6HRT BUTCH Administration Arformoterol Tartrate 15 mcg 03/30/19 09:00 04/05/19 08:52 Brovana Nebu IH 15 mcg Q12HRT BUTCH Administration Budesonide 0.5 mg 03/30/19 09:00 04/05/19 08:52 Pulmicort IH 0.5 mg Q12HRT BUTCH Administration Carvedilol 12.5 mg 04/04/19 12:00 04/05/19 09:41 Coreg PO 12.5 mg BID BUTCH Administration Enoxaparin Sodium 40 mg 03/30/19 10:00 04/05/19 09:45 Enoxaparin SUB-Q 40 mg QDAY [facility] Administration Hydrocortisone Sodium Succinate 25 mg 04/04/19 14:00 04/05/19 05:47 Solu-Cortef IV 25 mg Q8HR BUTCH Administration Hydromorphone HCl 0.25 mg 03/29/19 15:44 04/04/19 22:33 Dilaudid IV 0.25 mg Q3H PRN Administration Pain, Moderate (4-6) Hydromorphone HCl 1 mg 03/30/19 09:11 04/03/19 10:36 Dilaudid IV 1 mg Q4H PRN Administration Pain , Severe (7-10) Hydrophilic Ointment 1 applic 03/29/19 23:09 Vaseline Lip Therapy TP Q2HR PRN Dry Lips Lorazepam 1 mg 03/30/19 08:46 04/04/19 22:33 Ativan IV 1 mg Q4H PRN Administration Anxiety Multi-Ingred Cream/Lotion/Oil/Oint 1 applic 03/29/19 23:09 Artificial Tears Ophth Oint OU Q4HR PRN Dry Eye(s) Naloxone HCl 0.1 mg 03/29/19 15:44 Naloxone IV Q2MIN PRN Res Rate </= 8 or 02 SAT < 92% Nicotine 21 mg 03/30/19 10:00 04/05/19 09:41 Habitrol TD 21 mg QDAY BUTCH Administration Ondansetron HCl 4 mg 03/29/19 15:44 03/31/19 20:33 Zofran IV 4 mg Q8H PRN Administration N/V unrelieved by Reglan Pantoprazole Sodium 40 mg 04/04/19 10:00 04/05/19 09:41 Protonix PO 40 mg BID BUTCH Administration Senna 17.2 mg 04/04/19 22:00 04/04/19 22:33 Senokot PO 17.2 mg QHS BUTCH Administration Sodium Chloride 2 spray 03/31/19 13:30 [place] NS Q1H PRN Dry Nasal Passages
[2019-04-05] MEDS: HYDROmorphone 1 MG/1 ML INJ IV PRN ×2 (13:36→23:25)
[2019-04-05] MEDS: LORazepam 2 MG/ML VIAL IV PRN ×2 (13:46→23:28)
--- NOTE | 2019-04-05 14:50 | Event Note ---
Date: 04/05/19 Called by wound care nurse due to concerning drainage from midline wound when wound care was being done. Nurse reports about ~100cc of drainage that was bilious in appearance. I went up to see the patient. She was stable, but sleepy from her recent meds. Gauze was noted to have yellowish drainage without an odor. Will get CT with IV/Po contrast to check for abscess vs GI tract disruption. Labs in AM. Discussed with patient, family member, and Dr. Gage.
--- NOTE | 2019-04-05 22:00 | Cat Scan Report ---
CT abdomen pelvis w con INDICATION: Check for post-op abscess vs GI tract disruption. TECHNIQUE: All CT scans at this location are performed using the following dose modulation technique: Automated exposure control. CONTRAST: Omnipaque 300, 100 cc IV injection. COMPARISON: CT abdomen and pelvis 02/18/2019. CT ABDOMEN: Small basilar effusions with associated atelectasis right greater than left. Evaluation t he parenchymal organs demonstrates no suspicious abnormality. A right double-J stent is in satisfacto ry position. Negative for biliary dilatation. A drain is seen at the right abdomen. A small amount of air is seen at the anterior abdomen along the medial aspect of the drain. There is no well-defined fluid collection. Midline skin clips are noted. CT PELVIS: Status post previous hysterectomy. The distal end of the double-J stent lies within the bl adder. Negative for pelvic mass, fluid or inflammation. IMPRESSION: 1. Recent surgery. A small amount of air is noted in the anterior abdomen adjacent to a surgical drai n. No well formed abscess. 2. Basilar effusions right greater than left with associated atelectasis. 3. Right double-J stent in satisfactory position. No obstruction. Signer Name: Jimmy Garcia MD Signed: 04/05/2019 9:55 PM Workstation Name: [id number]
[2019-04-05] MEDS: SENNOSIDES 8.6 MG TAB PO SCH (23:24)
[2019-04-06] MEDS: HYDROcodone/ACETAMINOPHEN 5-325 MG TAB PO PRN (02:35)
[2019-04-06] MEDS: ALBUTEROL 2.5 MG/3 ML NEBU IH SCH ×4 (02:51→21:40)
[2019-04-06 05:29] LABS: Basophils % (Auto) 0.1 % (0.0-1.8); Eosinophils # (Auto) 0.1 K/mm3 (0.0-0.4); Eosinophils % (Auto) 0.6 % (0.0-4.3); Hemoglobin 8.9 gm/dl (10.1-14.3); Lymphocytes # (Auto) 0.9 K/mm3 (1.2-5.4); Lymphocytes % (Auto) 6.8 % (13.4-35.0); Mean Corpuscular HGB Conc 32 % (30-34); Mean Corpuscular Volume 85 fl (79-97); Monocytes # (Auto) 1.5 K/mm3 (0.0-0.8); Platelet Count 449 K/mm3 (140-440); Red Blood Count 3.29 M/mm3 (3.65-5.03); Red Cell Distribution Width 14.6 % (13.2-15.2)
[2019-04-06] MEDS: HYDROCORTISONE SOD SUCC 100 MG/2 ML VIAL IV SCH ×3 (05:32→21:47)
[2019-04-06 05:50] LABS: BUN/Creatinine Ratio 15; Blood Urea Nitrogen 6 mg/dL (7-17); Calcium 8.7 mg/dL (8.4-10.2); Hemolysis Index 0
[2019-04-06] MEDS: ARFORMOTEROL 15 MCG/2 ML NEBU IH SCH ×2 (09:50→21:39)
[2019-04-06] MEDS: BUDESONIDE 0.5 MG/2 ML NEBU IH SCH ×2 (09:50→21:38)
--- NOTE | 2019-04-06 09:53 | Progress Note ---
Assessment and Plan - Patient Problems (1) Colovaginal fistula Current Visit: No Status: Acute Plan to address problem: Pt stable. s/p robotic lysis of adhesions, open sigmoid colectomy, closure of vaginal fistula - 03/30 - POD#8. CT showed no evidence of abscess, fistula, or leak from right ureter. Portion of wound was opened as a precaution and for easier wound care. Neuro - appropriate CV - stable Pulm - extubated 03/30 - encourage pulmonary toilet. To clarify her status - pt was planned to be kept intubated post-op due to her significant chronic lung disease. There was no issue of lung failure. She was extubated successfully the next day as planned. GI - bowel function starting to return. Cont regular diet and senna. May have some component of fascial dehiscence due to increased drainage on dressing. Nothing to do for it now. If present, will eventually develop hernia which will be delt with in the future. Discussed wound with Wound Care nurse this morning. She will assess the wound later today and recommended wound care plan. I have also asked that patient be enrolled in wound care clinic. - [place] to stay in 10-[address] Polo. MARBIN output decreased. Still waiting for Cr level from MARBIN fluid. However, leak is unlikely as CT does not show any evidence of leak. ID - no active issues. I do not believe there is a SIRS issue. The leukocytosis is most likely related to her steroids and post-op state. There is no apparent infectious issue at this time. Endo - stress dose steroids by ICU DVT prophylaxis - lovenox prophylaxis Activity - needs to ambulate. Needs PT Dispo - if regular diet tolerated and ambulating safely, ok to start planning for discharge from my standpoint. Please call with questions. Subjective Date of service: 04/06/19 Patient Reports: Positive: no new complaints, feels better, pain is less (at incision), tolerating a regular diet, flatus, no bowel movement. Negative: nausea, vomiting Objective Vital Signs - 12hr 04/05/19 04/05/19 04/05/19 22:00 23:00 23:10 Temperature Pulse Rate 87 88 Pulse Rate [ Anterior Bilateral Throughout] Pulse Rate [ From Monitor] Respiratory 15 24 Rate Respiratory Rate [Anterior Bilateral Throughout] Blood Pressure 131/72 115/70 115/70 O2 Sat by Pulse 99 98 100 Oximetry 04/05/19 04/06/19 04/06/19 23:23 00:00 01:00 Temperature 99.6 F Pulse Rate 90 79 80 Pulse Rate [ Anterior Bilateral Throughout] Pulse Rate [ 80 From Monitor] Respiratory 17 18 Rate Respiratory Rate [Anterior Bilateral Throughout] Blood Pressure 115/70 120/73 109/64 O2 Sat by Pulse 99 99 Oximetry 04/06/19 04/06/19 04/06/19 02:00 02:35 02:51 Temperature Pulse Rate 82 Pulse Rate [ 92 H Anterior Bilateral Throughout] Pulse Rate [ From Monitor] Respiratory 21 20 Rate Respiratory 18 Rate [Anterior Bilateral Throughout] Blood Pressure 108/66 O2 Sat by Pulse 100 Oximetry 04/06/19 04/06/19 04/06/19 03:00 03:33 04:00 Temperature 98.3 F Pulse Rate 80 79 Pulse Rate [ Anterior Bilateral Throughout] Pulse Rate [ 79 From Monitor] Respiratory 22 19 Rate Respiratory Rate [Anterior Bilateral Throughout] Blood Pressure 127/74 124/70 O2 Sat by Pulse 95 98 Oximetry 04/06/19 04/06/19 04/06/19 05:00 06:00 07:00 Temperature Pulse Rate 77 77 72 Pulse Rate [ Anterior Bilateral Throughout] Pulse Rate [ From Monitor] Respiratory 15 16 15 Rate Respiratory Rate [Anterior Bilateral Throughout] Blood Pressure 108/66 112/73 117/66 O2 Sat by Pulse 97 98 97 Oximetry 04/06/19 04/06/19 04/06/19 08:00 08:01 09:51 Temperature Pulse Rate 69 67 Pulse Rate [ 77 Anterior Bilateral Throughout] Pulse Rate [ 69 From Monitor] Respiratory 18 17 Rate Respiratory 14 Rate [Anterior Bilateral Throughout] Blood Pressure 117/66 O2 Sat by Pulse 98 100 Oximetry - General physical appearance no distress, no pain, other (looks well) - Eyes normal occular movement - Respiratory normal expansion, normal respiratory effort - Abdomen soft, tender (at incision only), not distended, not guarding, not rigid, other (MARBIN with minimal serous drainage. Portion of wound was opened. No signs of active fistula. ) - Psychiatric oriented to time, oriented to person, oriented to place, speech is normal, memory intact - Labs 04/06/19 04:52 04/06/19 04:52 Diabetes panel 04/06/19 Range/Units 04:52 Sodium 145 (137-145) mmol/L Potassium 3.0 L D (3.6-5.0) mmol/L Chloride 95.5 L (98-107) mmol/L Carbon Dioxide 39 H D (22-30) mmol/L BUN 6 L (7-17) mg/dL Creatinine 0.4 L (0.7-1.2) mg/dL Glucose 145 H (65-100) mg/dL Calcium 8.7 (8.4-10.2) mg/dL Calcium panel 04/06/19 Range/Units 04:52 Calcium 8.7 (8.4-10.2) mg/dL Pituitary panel 04/06/19 Range/Units 04:52 Sodium 145 (137-145) mmol/L Potassium 3.0 L D (3.6-5.0) mmol/L Chloride 95.5 L (98-107) mmol/L Carbon Dioxide 39 H D (22-30) mmol/L BUN 6 L (7-17) mg/dL Creatinine 0.4 L (0.7-1.2) mg/dL Glucose 145 H (65-100) mg/dL Calcium 8.7 (8.4-10.2) mg/dL Adrenal panel 04/06/19 Range/Units 04:52 Sodium 145 (137-145) mmol/L Potassium 3.0 L D (3.6-5.0) mmol/L Chloride 95.5 L (98-107) mmol/L Carbon Dioxide 39 H D (22-30) mmol/L BUN 6 L (7-17) mg/dL Creatinine 0.4 L (0.7-1.2) mg/dL Glucose 145 H (65-100) mg/dL Calcium 8.7 (8.4-10.2) mg/dL
[2019-04-06] MEDS: HYDROmorphone 1 MG/1 ML INJ IV PRN ×2 (11:02→21:47)
[2019-04-06] MEDS: carvediloL 12.5 MG TAB PO SCH ×2 (11:03→21:47)
[2019-04-06] MEDS: NICOTINE 21 MG/24 HR PATCH TD SCH (11:03)
[2019-04-06] MEDS: ENOXAPARIN 40 MG/0.4 ML INJ SUB-Q SCH (11:03)
[2019-04-06] MEDS: PANTOPRAZOLE 40 MG TAB PO SCH ×2 (11:04→21:47)
--- NOTE | 2019-04-06 11:25 | Progress Note ---
Assessment and Plan 58 y/o female with moderately severe COPD, admitted post op with lysis of adhesion, fistula repair and ureteral repair. 1. Continue supplemental oxygen as she has chronic respiratory failure 2. Hold on CIWA for now, but did place on PRN ativan 3. Continue to wean stress dose steroids. Will change back to PO at discharge 4. Changed all the PO home meds I could to IV as her bowel will take a while to wake up 5. Nicotine patch 6. Follow up any surgery recs. Now on regular diet. Sending MARBIN drain for Cr to make sure no leaking 7. Will get PT/OT consult and get patient moving. 8. Spoke with CM about Home Health with PT 9. Surgery to speak with wound care about wound vac 10. Tentative plan to discharge to home tomorrow once all necessary items taken cared of. Will restart Mucinex 1200 BID today. Subjective Date of service: 04/06/19 Interval history: No acute events. CT was stable. no acute disease state. Objective Vital Signs - 12hr 04/06/19 04/06/19 04/06/19 00:00 01:00 02:00 Temperature 99.6 F Pulse Rate 79 80 82 Pulse Rate [ Anterior Bilateral Throughout] Pulse Rate [ 80 From Monitor] Respiratory 17 18 21 Rate Respiratory Rate [Anterior Bilateral Throughout] Blood Pressure 120/73 109/64 108/66 O2 Sat by Pulse 99 99 100 Oximetry 04/06/19 04/06/19 04/06/19 02:35 02:51 03:00 Temperature Pulse Rate 80 Pulse Rate [ 92 H Anterior Bilateral Throughout] Pulse Rate [ From Monitor] Respiratory 20 22 Rate Respiratory 18 Rate [Anterior Bilateral Throughout] Blood Pressure 127/74 O2 Sat by Pulse 95 Oximetry 04/06/19 04/06/19 04/06/19 03:33 04:00 05:00 Temperature 98.3 F Pulse Rate 79 77 Pulse Rate [ Anterior Bilateral Throughout] Pulse Rate [ 79 From Monitor] Respiratory 19 15 Rate Respiratory Rate [Anterior Bilateral Throughout] Blood Pressure 124/70 108/66 O2 Sat by Pulse 98 97 Oximetry 04/06/19 04/06/19 04/06/19 06:00 07:00 08:00 Temperature Pulse Rate 77 72 69 Pulse Rate [ Anterior Bilateral Throughout] Pulse Rate [ 69 From Monitor] Respiratory 16 15 18 Rate Respiratory Rate [Anterior Bilateral Throughout] Blood Pressure 112/73 117/66 O2 Sat by Pulse 98 97 98 Oximetry 04/06/19 04/06/19 04/06/19 08:01 09:51 09:52 Temperature Pulse Rate 67 Pulse Rate [ 77 Anterior Bilateral Throughout] Pulse Rate [ From Monitor] Respiratory 17 Rate Respiratory 14 Rate [Anterior Bilateral Throughout] Blood Pressure 117/66 O2 Sat by Pulse 100 99 Oximetry 04/06/19 11:03 Temperature Pulse Rate 77 Pulse Rate [ Anterior Bilateral Throughout] Pulse Rate [ From Monitor] Respiratory Rate Respiratory Rate [Anterior Bilateral Throughout] Blood Pressure 113/66 O2 Sat by Pulse Oximetry Constitutional: no acute distress, alert Eyes: non-icteric ENT: oropharynx moist Effort: normal Ascultation: Bilateral: diminished breath sounds, wheezes (mild) Percussion: Bilateral: not dull Cardiovascular: regular rate and rhythm Gastrointestinal: hypoactive bowel sounds, other (post surgical changes) Integumentary: normal Extremities: no cyanosis, no edema, pink and warm, pulses normal Neurologic: normal mental status, non-focal exam Psychiatric: mood appropriate, affect normal CBC and BMP: 04/06/19 04:52 04/06/19 04:52 ABG, PT/INR, D-dimer: ABG POC ABG pH 7.246 (7.35-7.45) L 03/30/19 02:13 ABG pH 7.304 pH Units (7.350-7.450) L 03/30/19 03:35 POC ABG pCO2 62.4 (35-45) H 03/30/19 02:13 ABG pCO2 52.9 mm Hg 03/30/19 03:35 POC ABG pO2 160 (80-105) H 03/30/19 02:13 ABG pO2 94.2 mm Hg (80.0-90.0) H 03/30/19 03:35 POC ABG HCO3 27.2 (22-26 mml/L) 03/30/19 02:13 POC ABG Total CO2 29 (23-27mmol/L) 03/30/19 02:13 POC ABG O2 Sat 99 03/30/19 02:13 ABG O2 Saturation 97.0 % (95.0-99.0) 03/30/19 03:35 Abnormal lab findings: Abnormal Labs 03/30/19 03/30/19 03/30/19 01:25 01:25 02:13 WBC 26.5 H RBC Hgb Hct MCH 27 L RDW 15.5 H Plt Count Lymph % (Auto) [place] % (Auto) Lymph # [place] # Seg Neutrophils % Seg Neuts % (Manual) Lymphocytes % (Manual) Seg Neutrophils # Seg Neutrophils # Man Lymphocytes # (Manual) Monocytes # (Manual) POC ABG pH 7.246 L ABG pH POC ABG pCO2 62.4 H POC ABG pO2 160 H ABG pO2 ABG Hemoglobin Oxyhemoglobin Sodium Potassium Chloride Carbon Dioxide BUN Creatinine 0.6 L Glucose 122 H POC Glucose Calcium 8.0 L 03/30/19 03/30/19 03/30/19 02:34 03:35 04:41 WBC RBC Hgb Hct MCH RDW Plt Count Lymph % (Auto) [place] % (Auto) Lymph # [place] # Seg Neutrophils % Seg Neuts % (Manual) Lymphocytes % (Manual) Seg Neutrophils # Seg Neutrophils # Man Lymphocytes # (Manual) Monocytes # (Manual) POC ABG pH ABG pH 7.304 L POC ABG pCO2 POC ABG pO2 ABG pO2 94.2 H ABG Hemoglobin 10.6 L Oxyhemoglobin 94.7 L Sodium 136 L Potassium 5.2 H Chloride Carbon Dioxide 18 L D BUN Creatinine 0.5 L Glucose POC Glucose 134 H Calcium 8.0 L 03/30/19 04/01/19 04/01/19 07:52 09:57 09:57 WBC 28.8 H 16.2 H RBC 3.42 L Hgb 9.3 L Hct 29.2 L MCH 27 L 27 L RDW 15.7 H Plt Count Lymph % (Auto) [place] % (Auto) Lymph # [place] # Seg Neutrophils % Seg Neuts % (Manual) 88.0 H 96.0 H Lymphocytes % (Manual) 7.0 L 1.0 L Seg Neutrophils # Seg Neutrophils # Man 25.3 H 15.6 H Lymphocytes # (Manual) 0.2 L Monocytes # (Manual) 1.4 H POC ABG pH ABG pH POC ABG pCO2 POC ABG pO2 ABG pO2 ABG Hemoglobin Oxyhemoglobin Sodium Potassium Chloride Carbon Dioxide BUN Creatinine 0.4 L Glucose POC Glucose Calcium 04/06/19 04/06/19 04:52 04:52 WBC 12.5 H RBC 3.29 L Hgb 8.9 L Hct 28.0 L MCH 27 L RDW Plt Count 449 H Lymph % (Auto) 6.8 L [place] % (Auto) 12.0 H Lymph # 0.9 L [place] # 1.5 H Seg Neutrophils % 80.5 H Seg Neuts % (Manual) Lymphocytes % (Manual) Seg Neutrophils # 10.1 H Seg Neutrophils # Man Lymphocytes # (Manual) Monocytes # (Manual) POC ABG pH ABG pH POC ABG pCO2 POC ABG pO2 ABG pO2 ABG Hemoglobin Oxyhemoglobin Sodium Potassium 3.0 L D Chloride 95.5 L Carbon Dioxide 39 H D BUN 6 L Creatinine 0.4 L Glucose 145 H POC Glucose Calcium
[2019-04-06] MEDS: SENNOSIDES 8.6 MG TAB PO SCH (21:53)
[2019-04-06] MEDS: guaiFENesin ER 600 MG TAB PO SCH (21:53)
[2019-04-07] MEDS: HYDROmorphone 1 MG/1 ML INJ IV PRN (01:27)
[2019-04-07] MEDS: LORazepam 2 MG/ML VIAL IV PRN (01:28)
[2019-04-07] MEDS: ALBUTEROL 2.5 MG/3 ML NEBU IH SCH ×3 (04:10→14:35)
[2019-04-07] MEDS: HYDROCORTISONE SOD SUCC 100 MG/2 ML VIAL IV SCH ×2 (05:53→13:03)
[2019-04-07] MEDS: BUDESONIDE 0.5 MG/2 ML NEBU IH SCH (09:31)
[2019-04-07] MEDS: ARFORMOTEROL 15 MCG/2 ML NEBU IH SCH (09:31)
[2019-04-07] MEDS: NICOTINE 21 MG/24 HR PATCH TD SCH (10:17)
[2019-04-07] MEDS: PANTOPRAZOLE 40 MG TAB PO SCH (10:17)
[2019-04-07] MEDS: ENOXAPARIN 40 MG/0.4 ML INJ SUB-Q SCH (10:17)
[2019-04-07] MEDS: carvediloL 12.5 MG TAB PO SCH (10:18)
[2019-04-07] MEDS: guaiFENesin ER 600 MG TAB PO SCH (10:18)
--- NOTE | 2019-04-07 11:09 | Operative Report ---
LOCATION: The patient is in ICU 267. PREOPERATIVE DIAGNOSIS: Ureteral injury. POSTOPERATIVE DIAGNOSIS: Ureteral injury. PROCEDURE: Retro ureteroscopy. SURGEON: Yang Polo MD ____ FINDINGS: Right mid lower ureteral transection. ESTIMATED BLOOD LOSS: Minimal. COMPLICATIONS: None. CLINICAL INDICATIONS: ____ on Friday contacted by the operating room, I was not promotion specialist and there was an urologist about this patient who is a complex patient who had a colovesical fistula with what sounds like a history of past appendicitis rupture, hysterectomy, chronic inflammation of the colovesical fistula. The patient was undergoing repair by General Surgery as this turned out to be a very complex difficult repair. See their operative note. Discussed with OR and Dr. Phillips before arrival and then arrival, limitations and no one available. I discussed with them over the phone that there was about 4 cm above the bladder. Discussed also with OR ____ OR staff, Dr. Phillips, their findings and then proceeded ____. DESCRIPTION FOR PROCEDURE: Once again, the clinical history for the patient who was undergoing a complex colovesical fistula repair and had a ureteral injury, so we elected that I would try to have the patient ____. At this point, I scrubbed it. I looked at above with Dr. Phillips ____ we looked at and identified the proximal edge of the right ureter ____. JOB# [id number] ATS/NTS
--- NOTE | 2019-04-07 12:38 | Discharge Summary ---
Providers - Providers Date of Admission: 03/29/19 10:59 Date of discharge: 04/07/19 Attending physician: KENNY WETZEL MD 03/29/19 15:49 Consult to Physician [CONS] Routine Comment: Consulting Provider: HELADIO SANTANA Physician Instructions: Reason For Exam: ICU mgmt 04/01/19 09:35 Physical Therapy Evaluation and Treat [CONS] Routine Comment: Reason For Exam: Debility 04/02/19 21:17 Occupational Therapy Evaluate and Treat [CONS] Routine Comment: Reason For Exam: Debility 04/05/19 09:40 Consult to Wound/ET Nurse [CONS] Routine Reason For Exam: eval for incisional vac Primary care physician: LUIS NEWBY Hospitalization Reason for admission: Vagionintestinal Fistula Condition: Good Pertinent studies: CT of abdomen pelvis Procedures: Surgery for Vaginointestinal Fistula with ureteral tear and uretal repair Hospital course: Patient admitted for scheduled surgery. Long surgery secondary to difficulty of abdominal area. Remained intubated overnight and extubated the next morning. Finally started passing gas and working with PT/OT. Wound care consulted and left recs. PT asked about abdominal binder and discussed with surgery who was in agreement. Medically and surgically stable for discharge. Disposition: [id number] HOME UNDER HOME [facility] Time spent for discharge: 35 - Discharge Diagnoses (1) Fistula Status: Acute Core Measure Documentation - Palliative Care Palliative Care/ Comfort Measures: Not Applicable - Core Measures Any of the following diagnoses?: none - VTE Discharge Requirements Deep Vein Thrombosis/Pulmonary Embolism Present on Admission: No Has pt received <5 days of overlap therapy or INR<2.0: No Anticoagulant overlap therapy prescribed at discharge: No Contraindication No Overlap Therapy order at DC: Medical Contraindication - Acute [place] Discharge Requirements Aspirin at discharge: No Reason for no aspirin on DC: Medical contraindication VAZQUEZ/ARB for LVSD if EF <40%: No Reason for no VAZQUEZ/ARB: Medical contraindication Beta herson at discharge: No Reason for no beta herson on DC: COPD Statin for LDL = or >100 mg/dl on DC: No Reason for no statin on DC: Medical contraindication - Heart Failure Discharge Requirements VAZQUEZ/ARB for LVSD if EF <40%: Not Applicable - Stroke Discharge Requirements Statin for LDL = or >70 mg/dl on DC: Not Applicable Exam - Constitutional Vitals: Temp Pulse Resp BP Pulse Ox 98.2 F 78 20 117/61 98 04/07/19 08:00 04/07/19 10:18 04/07/19 10:00 04/07/19 10:18 04/07/19 10:00 General appearance: Present: no acute distress, well-nourished - EENT Eyes: Present: PERRL, EOM intact ENT: hearing intact, clear oral mucosa - Neck Neck: Present: supple, normal ROM - Respiratory Respiratory effort: normal Respiratory: bilateral: CTA - Cardiovascular Rhythm: regular Heart Sounds: Present: S1 & S2 - Extremities Extremities: no ischemia, No edema - Abdominal General gastrointestinal: Present: soft, other (post surgical changes) Female genitourinary: Present: deferred - Rectal Rectal Exam: deferred - Integumentary Integumentary: Present: clear, warm, dry - Musculoskeletal Musculoskeletal: strength equal bilaterally - Psychiatric Psychiatric: appropriate mood/affect - Neurologic Neurologic: CNII-XII intact Plan Activity: other (follow home health recs and PT until seen by Surgery in follow up appointment) Weight Bearing Status: Non-Weight Bearing Diet: low salt Wound: per wound nurse instructions Special Instructions: no heavy lifting Durable Medical Equipment Needed Upon Discharge: other (abdominal binder) Follow up with: KENNY WETZEL MD [Staff Physician] - 10 Days Prescriptions: Oxycodone HCl/Acetaminophen [Percocet 10/325 mg] 1 each PO Q6HR PRN #28 tablet PRN Reason: Pain Sennosides [Senna] 8.6 mg PO BID #60 capsule
[2019-04-07] MEDS: HYDROcodone/ACETAMINOPHEN 5-325 MG TAB PO PRN (13:01)
--- NOTE | 2019-04-07 14:02 | Event Note ---
Date: 04/07/19 Patient being prepared for discharge. We will follow up with her in the wound care clinic on April 16. The wound care nurse evaluated her wound today and felt that everything was appropriate. She had no concerns. The drainage is most likely related to small areas of dehiscence in the fascia that were seen on CT scan. The drainage itself is not concerning in appearance. She clinically looks to be doing very well. I advised her to take sponge baths for now until the midline wound has had a chance to heal. Please call with questions.
[2019-04-07 15:22] VITALS: BP 102/56
== END 2019-04-07 18:30 | disposition home health service (06) | DRG 330 ==
LOC: 3A 10:59 → CC1 18:54 → IMCU 04-03 21:20
PROVIDERS: ADMIT Surgery; ATTEND Surgery
PROC: 0DBN0ZZ Excision of Sigmoid Colon, Open Approach (ICD-10-PCS; principal; 2019-03-29)
PROC: 0T768DZ Dilation of Right Ureter with Intraluminal Device, Via Natural or Artificial Opening Endoscopic (ICD-10-PCS; 2019-03-29)
PROC: 0DNW4ZZ Release Peritoneum, Percutaneous Endoscopic Approach (ICD-10-PCS; 2019-03-29)
PROC: BT1D1ZZ Fluoroscopy of Right Kidney, Ureter and Bladder using Low Osmolar Contrast (ICD-10-PCS; 2019-03-29)
PROC: 8E0W4CZ Robotic Assisted Procedure of Trunk Region, Percutaneous Endoscopic Approach (ICD-10-PCS; 2019-03-29)
PROC: 5A1935Z Respiratory Ventilation, Less than 24 Consecutive Hours (ICD-10-PCS; 2019-03-30)
PROC: 0BH17EZ Insertion of Endotracheal Airway into Trachea, Via Natural or Artificial Opening (ICD-10-PCS; 2019-03-30)
PROC: 4A033R1 Measurement of Arterial Saturation, Peripheral, Percutaneous Approach (ICD-10-PCS; 2019-03-30)
PROC: 5A09357 Assistance with Respiratory Ventilation, Less than 24 Consecutive Hours, Continuous Positive Airway Pressure (ICD-10-PCS; 2019-04-04)
PROC: 5A09357 Assistance with Respiratory Ventilation, Less than 24 Consecutive Hours, Continuous Positive Airway Pressure (ICD-10-PCS; 2019-04-05)
PROC: 5A09357 Assistance with Respiratory Ventilation, Less than 24 Consecutive Hours, Continuous Positive Airway Pressure (ICD-10-PCS; 2019-04-07)
DX: N82.3 Fistula of vagina to large intestine (principal); S37.19XA Other injury of ureter, initial encounter; J96.10 Chronic respiratory failure, unspecified whether with hypoxia or hypercapnia; K57.32 Diverticulitis of large intestine without perforation or abscess without bleeding; R65.10 Systemic inflammatory response syndrome (SIRS) of non-infectious origin without acute organ dysfunction; J44.9 Chronic obstructive pulmonary disease, unspecified; F41.9 Anxiety disorder, unspecified; I10 Essential (primary) hypertension; G47.33 Obstructive sleep apnea (adult) (pediatric); F17.210 Nicotine dependence, cigarettes, uncomplicated; F32.9 Major depressive disorder, single episode, unspecified; K66.0 Peritoneal adhesions (postprocedural) (postinfection); E78.2 Mixed hyperlipidemia; Z88.0 Allergy status to penicillin; Z91.013 Allergy to seafood; Z79.899 Other long term (current) drug therapy; Z72.89 Other problems related to lifestyle; Y93.89 Activity, other specified; Y92.89 Other specified places as the place of occurrence of the external cause; Y99.8 Other external cause status
CPT/HCPCS: 36415; 36600; 71045; 74177; 74420; 80048; 82140; 82803; 82962; 83735; 84100; 85007; 85025; 85027; 88307; 94002; 94003; 94640; 94660; 94760; G0378; A4217; C1758; C1769; C2617; C9113; J1170; J1580; J1650; J1720; J2060; J2370; J2405; J2704; J3010; J7030; J7050; J7120; Q9967

== ENCOUNTER 2019-04-21 08:28 | Outpatient (CLI) | payer BC | END 2019-04-21 08:29 | disposition home or self-care (01) | LOC: WOUND 08:28 | PROVIDERS: ATTEND Surgery | DX: T81.89XA Other complications of procedures, not elsewhere classified, initial encounter (principal); I10 Essential (primary) hypertension; J44.9 Chronic obstructive pulmonary disease, unspecified; Z90.710 Acquired absence of both cervix and uterus; Z87.891 Personal history of nicotine dependence; Y83.8 Other surgical procedures as the cause of abnormal reaction of the patient, or of later complication, without mention of misadventure at the time of the procedure; Y92.89 Other specified places as the place of occurrence of the external cause | CPT/HCPCS: 99215; G0463 ==

== ENCOUNTER 2019-04-23 08:37 | Outpatient (CLI) | payer BC | END 2019-04-23 08:38 | disposition home or self-care (01) | LOC: WOUND 08:37 | PROVIDERS: ATTEND Surgery | DX: T81.89XD Other complications of procedures, not elsewhere classified, subsequent encounter (principal); I10 Essential (primary) hypertension; J44.9 Chronic obstructive pulmonary disease, unspecified; Z90.710 Acquired absence of both cervix and uterus; Z87.891 Personal history of nicotine dependence; Y83.8 Other surgical procedures as the cause of abnormal reaction of the patient, or of later complication, without mention of misadventure at the time of the procedure | CPT/HCPCS: 97605 ==

== ENCOUNTER 2019-04-30 16:47 | Inpatient (IN) | payer BC ==
[2019-04-30] MEDS ORDERED: FAT EMULSIONS 20% 250 ML IV SCH (20:00)
[2019-04-30] MEDS ORDERED: OXYMETAZOLINE 0.05% NASAL SPRAY NS PRN (20:24)
[2019-04-30] MEDS ORDERED: METOCLOPRAMIDE 10 MG/2 ML INJ IV PRN (20:24)
[2019-04-30] MEDS: SENNOSIDES 8.6 MG TAB PO SCH (21:00)
[2019-04-30] MEDS: metroNIDAZOLE/NS 500 MG/100 ML 500 MG/100 ML BAG IV SCH (22:00)
[2019-04-30] MEDS: guaiFENesin ER 600 MG TAB PO SCH (22:00)
[2019-04-30] MEDS: OCTREOTIDE 100 MCG/1 ML INJ SUB-Q SCH (22:00)
[2019-04-30] MEDS: busPIRone 10 MG TAB PO SCH (22:00)
[2019-04-30] MEDS: PANTOPRAZOLE 40 MG TAB PO SCH (22:00)
[2019-04-30] MEDS ORDERED: DEXTROSE 10% IN WATER 1,000 ML IV SCH (23:00)
[2019-05-01] MEDS: oxyCODONE /ACETAMINOPHEN 5-325MG TAB PO PRN ×3 (00:15→21:51)
[2019-05-01] MEDS: metroNIDAZOLE/NS 500 MG/100 ML 500 MG/100 ML BAG IV SCH ×2 (05:55→14:12)
[2019-05-01] MEDS: OCTREOTIDE 100 MCG/1 ML INJ SUB-Q SCH ×3 (05:59→22:09)
[2019-05-01 07:08] LABS: Basophils # (Auto) 0.1 K/mm3 (0.0-0.1); Basophils % (Auto) 0.4 % (0.0-1.8); Eosinophils # (Auto) 0.2 K/mm3 (0.0-0.4); Eosinophils % (Auto) 1.4 % (0.0-4.3); Hematocrit 27.6 % (30.3-42.9); Hemoglobin 8.6 gm/dl (10.1-14.3); Lymphocytes # (Auto) 2.4 K/mm3 (1.2-5.4); Lymphocytes % (Auto) 18.7 % (13.4-35.0); Mean Corpuscular HGB Conc 31 % (30-34); Mean Corpuscular Volume 82 fl (79-97); Monocytes % (Auto) 15.4 % (0.0-7.3); Platelet Count 443 K/mm3 (140-440); Red Blood Count 3.38 M/mm3 (3.65-5.03); Red Cell Distribution Width 16.2 % (13.2-15.2)
[2019-05-01 07:34] LABS: Alanine Aminotransferase 6 units/L (7-56); Albumin 3.1 g/dL (3.9-5); BUN/Creatinine Ratio 33; Blood Urea Nitrogen 13 mg/dL (7-17); Hemolysis Index 0
[2019-05-01] MEDS: IPRATROPIUM/ALBUTEROL SULFATE 3 ML AMPUL.NEB IH SCH ×3 (08:48→20:41)
[2019-05-01] MEDS: DULoxetine 30 MG CAP PO SCH (10:36)
[2019-05-01] MEDS: guaiFENesin ER 600 MG TAB PO SCH ×2 (10:36→21:53)
[2019-05-01] MEDS: predniSONE 10 MG TAB PO SCH (10:37)
[2019-05-01] MEDS: ONDANSETRON 4 MG/2 ML INJ IV PRN ×2 (10:37→14:11)
[2019-05-01] MEDS: busPIRone 10 MG TAB PO SCH ×2 (10:39→21:54)
[2019-05-01] MEDS: PANTOPRAZOLE 40 MG TAB PO SCH ×2 (10:40→21:53)
[2019-05-01] MEDS: SENNOSIDES 8.6 MG TAB PO SCH ×2 (11:15→21:59)
[2019-05-01] MEDS: ENOXAPARIN 40 MG/0.4 ML INJ SUB-Q SCH (11:15)
--- NOTE | 2019-05-01 12:22 | History and Physical Report ---
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 She was previously discharged from the hospital in March after a complicated course in which she underwent a sigmoid resection with a colovaginal fistula takedown complicated by right ureteral injury. She underwent wound VAC placed adjacent along with IV antibiotics and after being discharged home noted that the wound VAC was not working well causing increased drainage and increased abdominal pain. 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 Plan is to treat with bowel rest and TPN with allowable sips and chips for taking meds. She developed leukocytosis and infectious disease was consulted which agreed with continuing levofloxacin and metronidazole. Also concern for possible cellulitis versus Gonzalez rotation at the wound VAC site. She also developed a UTI which was treated. Leukocytosis has improved with antibiotic and is almost normalized. Patient was seen by therapy and felt to be a good rehabilitation candidate. After she was medically stabilized she was transferred for further rehabilitation. On exam she is doing fairly well and in good spirits. Having bowel movements intermittently which have slowed down recently but were loose in the past few days. Tolerating therapy and not being too fatigued afterwards. Contacted pharmacy about her TPN and have straightened out the dosing on that. Dietitian has been consulted for further maintenance and monitoring of the TPN amount. Past History Past Medical History: COPD, GERD, other (anxiety, sleep apnea, pulmonary hypertension) Past Surgical History: Other (hysterectomy, appendectomy, sigmoid resection with colovaginal fistula takedown) Social history: Lives alone. denies: smoking, alcohol abuse Family history: hypertension Medications and Allergies Allergies Allergy/AdvReac Type Severity Reaction Status Date / Time Penicillins Allergy Unknown Verified 04/23/19 10:52 lactose AdvReac Unknown Verified 04/23/19 10:52 shellfish derived AdvReac Swelling Verified 04/23/19 10:52 Home Medications Medication Instructions Recorded Confirmed Last Taken Type guaiFENesin [Mucinex] 1,200 mg PO BID 08/03/18 04/23/19 03/28/19 08:00 History ALBUTEROL NEB's [Proventil 0.083% 2.5 mg IH Q4HRT PRN #1 nebu 08/05/18 04/23/19 03/29/19 08:00 Rx NEBS] Arformoterol Nebu [Brovana Nebu] 15 mcg IH Q12HRT #1 ml 08/05/18 04/23/19 03/01/19 08:00 Rx Montelukast [Singulair] 10 mg PO DAILY #30 tablet 08/05/18 04/23/19 04/10/19 22:00 Rx Albuterol Sulfate [Proair 90 mcg IH Q4HR PRN #2 aer.[email or web address] 01/03/19 04/23/19 03/29/19 08:00 Rx Respiclick] AtorvaSTATin 10 mg PO QAM 03/22/19 04/23/19 04/11/19 08:00 History DULoxetine [Cymbalta] 30 mg PO QDAY 03/22/19 04/23/19 03/28/19 08:00 History Fluticasone/Umeclidin/Vilanter 1 each IH DAILY 03/22/19 04/23/19 03/29/19 10:00 History [Trelegy Ellipta 100-62.5-25] Pantoprazole [Protonix TAB] 40 mg PO BID 03/22/19 04/23/19 04/11/19 08:00 History busPIRone [Buspar] 5 mg PO DAILY 03/22/19 04/23/19 03/29/19 08:00 History Pantoprazole [Protonix TAB] 40 mg PO BID tablet 04/07/19 04/23/19 Unknown Rx Sennosides [Senna] 8.6 mg PO BID #60 capsule 04/07/19 04/23/19 Unknown Rx carvediloL [Coreg] 12.5 mg PO BID tablet 04/07/19 04/23/19 Unknown Rx HYDROcodone/APAP 7.5-325 [[place] 1 each PO Q6HR PRN #28 tablet 04/15/19 04/23/19 Unknown Rx 7.5-325 mg TAB] Polyethylene Glycol 3350 17 gm PO BID #30 powd.pack 04/15/19 04/23/19 Unknown Rx [Powderlax] Total Parenteral Nutrition [TPN 3,000 ml IV DAILY@1999 #30 bag 04/15/19 04/23/19 Unknown Rx Adult] levoFLOXacin [Levaquin TAB] 750 mg PO Q24HR #10 tablet 04/15/19 04/23/19 Unknown Rx predniSONE [Deltasone] 15 mg PO QDAY #90 tab 04/15/19 04/23/19 Unknown Rx Ondansetron (Nf) [Zofran TAB] 8 mg PO Q6HR PRN 04/25/19 04/25/19 Unknown History Active Meds: Active Medications Albuterol (Proventil) 2.5 mg IH Q4HRT PRN PRN Reason: Shortness Of Breath Albuterol/Ipratropium (Duoneb *Not For Prn Use*) 1 ampul IH TIDRT [facility] Last Admin: 05/01/19 08:48 Dose: 1 ampul Documented by: Bisacodyl (Dulcolax) 10 mg PO QDAY PRN PRN Reason: Constipation Last Admin: 05/01/19 10:36 Dose: 10 mg Documented by: Buspirone HCl (Buspar) 5 mg PO BID [facility] Last Admin: 05/01/19 10:39 Dose: 5 mg Documented by: Duloxetine HCl (Cymbalta) 30 mg PO QDAY [facility] Last Admin: 05/01/19 10:36 Dose: 30 mg Documented by: Enoxaparin Sodium (Enoxaparin) 40 mg SUB-Q QDAY [facility] Last Admin: 05/01/19 11:15 Dose: 40 mg Documented by: Guaifenesin (Mucinex Er) 600 mg PO BID [facility] Last Admin: 05/01/19 10:36 Dose: 600 mg Documented by: Amino Acids/Electrolytes/Dextrose (Tpn Adult) 1,560 mls @ 0 mls/hr IV DAILY@1999 [facility]; Protocol Stop: 05/02/19 19:59 Metronidazole (Flagyl 500 Mg/100 Ml) 500 mg in 100 mls @ 100 mls/hr IV Q8HR [facility]; Protocol Stop: 05/01/19 14:59 Last Admin: 05/01/19 05:55 Dose: 100 mls/hr Documented by: Metoclopramide HCl (Reglan) 10 mg IV Q6H PRN PRN Reason: Nausea And Vomiting Montelukast Sodium (Singulair) 10 mg PO QHS [facility] Octreotide Acetate (Sandostatin) 100 mcg SUB-Q Q8HR [facility] Last Admin: 05/01/19 05:59 Dose: 100 mcg Documented by: Ondansetron HCl (Zofran) 4 mg IV Q4H PRN PRN Reason: Nausea And Vomiting Last Admin: 05/01/19 10:37 Dose: 4 mg Documented by: Oxycodone/Acetaminophen (Percocet 5/325) 1 tab PO Q6H PRN PRN Reason: Pain, Moderate (4-6) Last Admin: 05/01/19 00:15 Dose: 1 tab Documented by: Oxymetazoline HCl (Vicks Sinex) 2 spray NS Q12H PRN PRN Reason: Nasal Congestion Pantoprazole Sodium (Protonix) 40 mg PO BID [facility] Last Admin: 05/01/19 10:40 Dose: 40 mg Documented by: Prednisone (Deltasone) 10 mg PO QDAY [facility] Last Admin: 05/01/19 10:37 Dose: 10 mg Documented by: Senna (Senokot) 8.6 mg PO Q12H [facility] Last Admin: 05/01/19 11:15 Dose: 8.6 mg Documented by: Review of Systems All systems: negative (ROS negative for 12 systems except as noted below with pertinent positives and negatives.) Constitutional: fatigue Ears, nose, mouth and throat: no decreased hearing Cardiovascular: no palpitations, no rapid/irregular heart beat, no edema Respiratory: no cough with sputum, no shortness of breath Gastrointestinal: no abdominal pain, no nausea, no vomiting Musculoskeletal: gait dysfunction Integumentary: wounds, no redness, no sores Neurological: no numbness, no tremors Psychiatric: anxiety Exam - Exam Narrative exam: MUSCULOSKELETAL SPECIALTY EXAM CONSTITUTIONAL: Well developed, well nourished, appropriately groomed LYMPHATIC: No appreciable abnormalities palpable in neck EENT: Oropharynx clear. Hearing intact to soft voice RESPIRATORY: Clear to auscultation bilaterally, no increased work of breathing CARDIOVASCULAR: Regular Rate/ Rhythm, no swelling, edema or tenderness in BUE or BLE. Pulses palpable in all extremities. All extremities warm. GI: + bowel sounds, soft, NTTP, nondistended. Abd wound with wound vac INTEGUMENTARY: Normal, no lesion, rash, masses or bruising noted in extremities. MUSCULOSKELETAL: BUE and BLE normal without defect, crepitus, subluxation, effusion, arthritic changes or TTP. BUE 4/5, good ROM, with normal tone. BLE 4/5 good ROM, with normal tone NEURO: CN 2-12 grossly intact. Sensation intact in all extremities. Reflexes 2+ bilaterally at biceps, brachioradialis and patella. No clonus at ankles. Coordination intact in BUE. No tremor noted in 4 extremities. POSTURE and GAIT: Sitting posture good. Balance appears reasonable. Gait deferred until seen with therapy. PSYCH: Alert, oriented x3, affect appears normal. Insight appears intact. - Constitutional Vitals: Vital Signs - 12hr 05/01/19 05/01/19 05/01/19 01:15 06:00 08:48 Temperature 36.9 C Pulse Rate 78 Pulse Rate [ 90 Anterior Bilateral Throughout] Respiratory 18 18 Rate Respiratory 18 Rate [Anterior Bilateral Throughout] Blood Pressure 106/62 [Left] O2 Sat by Pulse 100 Oximetry - Allied health notes Allied health notes reviewed: nursing, PT, OT - Labs CBC & Chem 7: 05/01/19 06:51 05/01/19 06:51 Labs: Laboratory Results - last 72 hr 05/01/19 05/01/19 05/01/19 06:51 06:51 06:51 WBC 13.0 H RBC 3.38 L Hgb 8.6 L Hct 27.6 L MCV 82 MCH 26 L MCHC 31 RDW 16.2 H Plt Count 443 H Lymph % (Auto) 18.7 [place] % (Auto) 15.4 H Eos % (Auto) 1.4 Baso % (Auto) 0.4 Lymph # 2.4 [place] # 2.0 H Eos # 0.2 Baso # 0.1 Seg Neutrophils % 64.1 Seg Neutrophils # 8.4 H Sodium 139 Potassium 4.3 Chloride 98.4 Carbon Dioxide 31 H Anion Gap 14 BUN 13 Creatinine 0.4 L Estimated GFR > 60 BUN/Creatinine Ratio 33 Glucose 165 H Calcium 9.0 Phosphorus 3.90 Magnesium 1.80 Total Bilirubin < 0.20 AST 14 ALT 6 L Alkaline Phosphatase 47 Total Protein 5.3 L Albumin 3.1 L Albumin/Globulin Ratio 1.4 Assessment and Plan Assessment and plan: Patient was assessed and evaluated for Acute Inpatient Rehab Unit. Due to the patients above-mentioned medical complexity, along with decreased functional mobility and self care, this patient continues to require and be appropriate for a comprehensive, multidisciplinary ytfso-as-dahkriy rehabilitation program. These needs cannot be met in an outpatient or other less intensive setting. The patient would continue to benefit from skilled therapy intervention for at least 3 hours per day, five days a week, with techniques specific to the needs of the patient to improve function, activities of daily living, and reintegration into the community. The patient continues to require: -- OT to improve ROM, self-care, and learn use of adaptive equipment -- PT to improve strength and balance, functional transfers, and ambulation with energy conservation techniques to improve functional mobility -- 24 hour RN to ensure and prevent skin breakdown, promote progressive independence while ensuring safety, ensure education regarding medications, and incorporation of the rehabilitation at the bedside -- 24 hour Displayer to coordinate this interdisciplinary program, and to manage/prevent complications as a result of the patients medical comorbidities. -Plan of care by day 4 -Weekly team conferences With such a program, there is a reasonable certainty that the goals individualized for this patient can be achieved within the specified length of stay. Enterocutaneous fistula with wound VAC: Maintain wound VAC, monitor drain output, continue TPN with sips and chips with meds. Monitor for resolution of the leukocytosis or need for further antibiotics. Hypertension: Continue medications and adjust as needed for normotension. Hold for hypotension. COPD with acute on chronic respiratory failure and hypoxia: Continue nebulizer treatments. Monitor for exacerbation. Obstructive sleep apnea: Continue CPAP. Follow up with geoscientist after discharge. Depression: Continue Cymbalta, monitor for improvement Anxiety: U BuSpar, monitor for improvement Mild Pulmonary hypertension: As noted on prior echocardiogram. Apparently prior cardiomyopathy also seen on echocardiogram has resolved per review of cardiology notes Constipation: Continue medications monitor for regular bowel movements. Protein calorie malnutrition: Continue TPN with that replacement, dietitian consult. Monitor prealbumin. Problem with getting TPN restarted. Have contacted pharmacy this morning and they are reverting to previous orders in order to have a going. We'll try to advance her to regular diet once she has been cleared by surgery for regular oral intake Anemia chronic disease: Continue to monitor, transfuse for hemoglobin less than 7. ADL dysfunction: OT will work on improving ability to perform ADLs (including assistive devices) to increase independence and decrease caregiver burden and improve functional transfers and mobility training. Difficulty walking: PT will work on gait training and proper use of assistive devices and advance as appropriate to use of stairs and outside ambulation on uneven surfaces. Unsteadiness on feet: PT will work on improving static and dynamic sitting and standing balance as well as proper use of assistive devices to decrease risk of falls. Abnormality of gait: PT will work to improve safety and efficiency of gait through neuromotor training and gait training along with instruction on proper use of assistive devices. Muscle weakness: PT & OT will work on strengthening exercises to improve functional strength including mixture of closed and open kinetic chain exercises. Debility: PT & OT will work on improving overall functional status to improve pa rticipation with ADLs, mobility and social involvement. Fatigue: PT & OT will work on improving endurance through aerobic exercises and therapeutic activity while monitoring patients tolerance for activity and vital signs as needed. DVT ppx: Lovenox Pain: Continue physical modalities in therapy and pain medications as needed to achieve functional pain control. Sleep: Monitor and address as needed. Bowel: Monitor and address as needed. Appetite: Monitor and address as needed. Discharge planning: Pending therapy progress and care plan meeting. Will continue discussion with therapy team, SW, patient and family. Restrictions/ Precautions: Falls WB status: FWB Functional Hx: ADLs: Independent Cognition: Independent Mobility: rollator MOD I Barriers to Discharge: Decreased mobility and ability to perform self care, balance deficits, weakness Estimated Length of Stay: 1418 days Discharge Destination: Home with family POST ADMISSION PHYSICIAN EVALUATION I have examined the patient and find that functional status, medical condition and appropriateness for IRF admission are essentially unchanged from those described in the preadmission screening. Will monitor for worsening facial drainage, infection, sepsis, debility, DVT/PE, bowel and bladder complications and complications due to malnutrition, hypertension, COPD, anemia, and electrolyte abnormalities. Will attempt to avoid occurrence of these issues or treat them if they present themselves.
[2019-05-01] MEDS ORDERED: SODIUM CHLORIDE 0.9% 1000 ML 1,000 ML IV SCH (15:00)
[2019-05-01] MEDS ORDERED: TOTAL PARENTERAL NUTRITION 1,560 ML IV SCH (20:00)
[2019-05-01] MEDS: MONTELUKAST 10 MG TAB PO SCH (21:59)
[2019-05-02] MEDS: OCTREOTIDE 100 MCG/1 ML INJ SUB-Q SCH ×3 (05:32→21:32)
[2019-05-02] MEDS: IPRATROPIUM/ALBUTEROL SULFATE 3 ML AMPUL.NEB IH SCH ×3 (08:43→20:26)
[2019-05-02] MEDS: ONDANSETRON 4 MG/2 ML INJ IV PRN (09:14)
[2019-05-02] MEDS: ENOXAPARIN 40 MG/0.4 ML INJ SUB-Q SCH ×2 (09:15→14:19)
[2019-05-02] MEDS: DEXTROSE 50% IN WATER (25GM) 50 ML SYRINGE IV PRN (11:52)
[2019-05-02] MEDS: SENNOSIDES 8.6 MG TAB PO SCH ×2 (14:19→21:32)
[2019-05-02] MEDS: guaiFENesin ER 600 MG TAB PO SCH ×2 (14:19→21:32)
[2019-05-02] MEDS: predniSONE 10 MG TAB PO SCH (14:19)
[2019-05-02] MEDS: busPIRone 10 MG TAB PO SCH ×2 (14:20→21:33)
[2019-05-02] MEDS: DULoxetine 30 MG CAP PO SCH (14:20)
[2019-05-02] MEDS: PANTOPRAZOLE 40 MG TAB PO SCH ×2 (14:20→21:32)
[2019-05-02 14:50] LABS: BUN/Creatinine Ratio 35; Blood Urea Nitrogen 14 mg/dL (7-17); Calcium 8.9 mg/dL (8.4-10.2); Hemolysis Index 4
[2019-05-02] MEDS ORDERED: TOTAL PARENTERAL NUTRITION 1,560 ML IV SCH (20:00)
[2019-05-02] MEDS: MONTELUKAST 10 MG TAB PO SCH (21:33)
[2019-05-02] MEDS: oxyCODONE /ACETAMINOPHEN 5-325MG TAB PO PRN (21:40)
[2019-05-03] MEDS: OCTREOTIDE 100 MCG/1 ML INJ SUB-Q SCH ×3 (06:06→22:25)
[2019-05-03] MEDS: oxyCODONE /ACETAMINOPHEN 5-325MG TAB PO PRN ×2 (06:09→22:26)
[2019-05-03] MEDS: IPRATROPIUM/ALBUTEROL SULFATE 3 ML AMPUL.NEB IH SCH ×3 (08:17→21:33)
--- NOTE | 2019-05-03 09:59 | Progress Note ---
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 She was previously discharged from the hospital in March after a complicated course in which she underwent a sigmoid resection with a colovaginal fistula takedown complicated by right ureteral injury. She underwent wound VAC placed adjacent along with IV antibiotics and after being discharged home noted that the wound VAC was not working well causing increased drainage and increased abdominal pain. 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 Plan is to treat with bowel rest and TPN with allowable sips and chips for taking meds. She developed leukocytosis and infectious disease was consulted which agreed with continuing levofloxacin and metronidazole. Also concern for possible cellulitis versus Gonzalez rotation at the wound VAC site. She also developed a UTI which was treated. Leukocytosis has improved with antibiotic and is almost normalized. Patient was seen by therapy and felt to be a good rehabilitation candidate. After she was medically stabilized she was transferred for further rehabilitation. Interval History Patient is participating in therapy and making reasonable progress. Taking rest breaks as needed. +BM. Denies pain, palpitations, dyspnea, cough, N/V, weakness, or joint pain. EC Fistula: Wound vac in place with appropriate drainage. Nausea but no vomiting. Has had this since starting TPN Dehydration: NS IVF and recheck labs No hypoglycemia this AM COPD: No respiratory distress. Hypertension: BP in good range All records, vitals, labs and medications were reviewed. No other issues per patient, nursing or therapy. Objective - Exam Narrative Exam: MUSCULOSKELETAL SPECIALTY EXAM CONSTITUTIONAL: Well developed, well nourished, appropriately groomed RESPIRATORY: Clear to auscultation bilaterally, no increased work of breathing CARDIOVASCULAR: Regular Rate/ Rhythm, no swelling, edema or tenderness in BUE or BLE. Pulses palpable in all extremities. All extremities warm. GI: + bowel sounds, soft, NTTP, nondistended. Abd wound with wound vac INTEGUMENTARY: Normal, no lesion, rash, masses or bruising noted in extremities. MUSCULOSKELETAL: BUE and BLE normal without defect, crepitus, subluxation, effusion, arthritic changes or TTP. BUE 4/5, good ROM, with normal tone. BLE 4/5 good ROM, with normal tone NEURO: CN 2-12 grossly intact. Sensation intact in all extremities. No tremor noted in 4 extremities. POSTURE and GAIT: Sitting posture good. Balance appears reasonable. Gait deferred until seen with therapy. PSYCH: Alert, oriented x3, affect appears normal. Insight appears intact. - Constitutional Vitals: Vital Signs - 12hr 05/03/19 05/03/19 05/03/19 04:21 07:53 08:17 Temperature 36.8 C 36.9 C Pulse Rate 89 89 Pulse Rate [ 99 H Anterior Bilateral Throughout] Respiratory 18 20 Rate Respiratory 18 Rate [Anterior Bilateral Throughout] Blood Pressure 97/54 109/58 O2 Sat by Pulse 96 100 100 Oximetry - Allied health notes Allied health notes reviewed: nursing, PT, OT FIMS assessment as documented by PT/OT/ST: Locomotion- walk/wheelchair Ambulation Distance 68 - Labs CBC & Chem 7: 05/01/19 06:51 05/03/19 09:29 Labs: Laboratory Results - last 72 hr 05/01/19 05/01/19 05/01/19 06:51 06:51 06:51 WBC 13.0 H RBC 3.38 L Hgb 8.6 L Hct 27.6 L MCV 82 MCH 26 L MCHC 31 RDW 16.2 H Plt Count 443 H Lymph % (Auto) 18.7 [place] % (Auto) 15.4 H Eos % (Auto) 1.4 Baso % (Auto) 0.4 Lymph # 2.4 [place] # 2.0 H Eos # 0.2 Baso # 0.1 Seg Neutrophils % 64.1 Seg Neutrophils # 8.4 H Sodium 139 Potassium 4.3 Chloride 98.4 Carbon Dioxide 31 H Anion Gap 14 BUN 13 Creatinine 0.4 L Estimated GFR > 60 BUN/Creatinine Ratio 33 Glucose 165 H POC Glucose Calcium 9.0 Phosphorus 3.90 Magnesium 1.80 Total Bilirubin < 0.20 AST 14 ALT 6 L Alkaline Phosphatase 47 Total Protein 5.3 L Albumin 3.1 L Albumin/Globulin Ratio 1.4 05/01/19 05/01/19 05/01/19 13:01 17:14 22:09 WBC RBC Hgb Hct MCV MCH MCHC RDW Plt Count Lymph % (Auto) [place] % (Auto) Eos % (Auto) Baso % (Auto) Lymph # [place] # Eos # Baso # Seg Neutrophils % Seg Neutrophils # Sodium Potassium Chloride Carbon Dioxide Anion Gap BUN Creatinine Estimated GFR BUN/Creatinine Ratio Glucose POC Glucose 87 136 H 109 H Calcium Phosphorus Magnesium Total Bilirubin AST ALT Alkaline Phosphatase Total Protein Albumin Albumin/Globulin Ratio 05/02/19 05/02/19 05/02/19 07:46 11:22 12:13 WBC RBC Hgb Hct MCV MCH MCHC RDW Plt Count Lymph % (Auto) [place] % (Auto) Eos % (Auto) Baso % (Auto) Lymph # [place] # Eos # Baso # Seg Neutrophils % Seg Neutrophils # Sodium Potassium Chloride Carbon Dioxide Anion Gap BUN Creatinine Estimated GFR BUN/Creatinine Ratio Glucose POC Glucose 184 H 56 L 225 H Calcium Phosphorus Magnesium Total Bilirubin AST ALT Alkaline Phosphatase Total Protein Albumin Albumin/Globulin Ratio 05/02/19 05/02/19 05/02/19 14:20 16:20 21:52 WBC RBC Hgb Hct MCV MCH MCHC RDW Plt Count Lymph % (Auto) [place] % (Auto) Eos % (Auto) Baso % (Auto) Lymph # [place] # Eos # Baso # Seg Neutrophils % Seg Neutrophils # Sodium 140 Potassium 4.2 Chloride 98.7 Carbon Dioxide 30 Anion Gap 16 BUN 14 Creatinine 0.4 L Estimated GFR > 60 BUN/Creatinine Ratio 35 Glucose 99 POC Glucose 100 85 Calcium 8.9 Phosphorus 3.30 Magnesium 1.90 Total Bilirubin AST ALT Alkaline Phosphatase Total Protein Albumin Albumin/Globulin Ratio 05/03/19 06:03 WBC RBC Hgb Hct MCV MCH MCHC RDW Plt Count Lymph % (Auto) [place] % (Auto) Eos % (Auto) Baso % (Auto) Lymph # [place] # Eos # Baso # Seg Neutrophils % Seg Neutrophils # Sodium Potassium Chloride Carbon Dioxide Anion Gap BUN Creatinine Estimated GFR BUN/Creatinine Ratio Glucose POC Glucose 132 H Calcium Phosphorus Magnesium Total Bilirubin AST ALT Alkaline Phosphatase Total Protein Albumin Albumin/Globulin Ratio Assessment and Plan Enterocutaneous fistula with wound VAC: Maintain wound VAC, monitor drain output, continue TPN with sips and chips with meds. Monitor for resolution of the leukocytosis or need for further antibiotics. Hypertension: Continue medications and adjust as needed for normotension. Hold for hypotension. COPD with acute on chronic respiratory failure and hypoxia: Continue nebulizer treatments. Monitor for exacerbation. Obstructive sleep apnea: Continue CPAP. Follow up with drier feeder after discharge. Depression: Continue Cymbalta, monitor for improvement Anxiety: BuSpar, monitor for improvement Mild Pulmonary hypertension: As noted on prior echocardiogram. Apparently prior cardiomyopathy also seen on echocardiogram has resolved per review of cardiology notes Constipation: Continue medications monitor for regular bowel movements. Protein calorie malnutrition: Continue TPN with that replacement, dietitian consult. Monitor prealbumin. Problem with getting TPN restarted. Have contacted pharmacy this morning and they are reverting to previous orders in order to have a going. We'll try to advance her to regular diet once she has been cleared by surgery for regular oral intake Anemia chronic disease: Continue to monitor, transfuse for hemoglobin less than 7. Dehydration: NS IVF, monitor Nausea: medications available, has been a problem since starting TPN ADL dysfunction: OT will work on improving ability to perform ADLs (including assistive devices) to increase independence and decrease caregiver burden and improve functional transfers and mobility training. Difficulty walking: PT will work on gait training and proper use of assistive devices and advance as appropriate to use of stairs and outside ambulation on uneven surfaces. Unsteadiness on feet: PT will work on improving static and dynamic sitting and standing balance as well as proper use of assistive devices to decrease risk of falls. Abnormality of gait: PT will work to improve safety and efficiency of gait through neuromotor training and gait training along with instruction on proper use of assistive devices. Muscle weakness: PT & OT will work on strengthening exercises to improve functional strength including mixture of closed and open kinetic chain exercises. Debility: PT & OT will work on improving overall functional status to improve participation with ADLs, mobility and social involvement. Fatigue: PT & OT will work on improving endurance through aerobic exercises and therapeutic activity while monitoring patients tolerance for activity and vital signs as needed. DVT ppx: Lovenox Pain: Continue physical modalities in therapy and pain medications as needed to achieve functional pain control. Sleep: Monitor and address as needed. Bowel: Monitor and address as needed. Appetite: Monitor and address as needed. Discharge planning: Pending therapy progress and care plan meeting. Will continue discussion with therapy team, SW, patient and family. Restrictions/ Precautions: Falls WB status: FWB Functional Hx: ADLs: Independent Cognition: Independent Mobility: rollator MOD I Barriers to Discharge: Decreased mobility and ability to perform self care, balance deficits, weakness Estimated Length of Stay: 1418 days Discharge Destination: Home with family
[2019-05-03 10:34] LABS: BUN/Creatinine Ratio 43; Blood Urea Nitrogen 17 mg/dL (7-17); Calcium 9.6 mg/dL (8.4-10.2); Hemolysis Index 2
[2019-05-03] MEDS: guaiFENesin ER 600 MG TAB PO SCH ×2 (10:46→22:26)
[2019-05-03] MEDS: busPIRone 10 MG TAB PO SCH ×2 (10:47→22:26)
[2019-05-03] MEDS: predniSONE 10 MG TAB PO SCH (10:47)
[2019-05-03] MEDS: DULoxetine 30 MG CAP PO SCH (10:47)
[2019-05-03] MEDS: ENOXAPARIN 40 MG/0.4 ML INJ SUB-Q SCH (10:48)
[2019-05-03] MEDS: PANTOPRAZOLE 40 MG TAB PO SCH ×2 (10:48→22:26)
[2019-05-03] MEDS: SENNOSIDES 8.6 MG TAB PO SCH ×2 (10:48→21:25)
--- NOTE | 2019-05-03 11:55 | Event Note ---
Date: 05/03/19 Routine visit - Pt exercising in rehab. Looks good. Has no specific complaints. Feels better. Had 2 BMs recently. Would continue with BID senna for now. Continue TPN and minimal PO intake (for comfort only) Will be available if needed. Please call with any questions.
[2019-05-03] MEDS ORDERED: SODIUM CHLORIDE 0.9% 1000 ML 1,000 ML IV SCH (12:30)
[2019-05-03] MEDS ORDERED: FAT EMULSIONS 20% 250 ML IV SCH (20:00)
[2019-05-03] MEDS ORDERED: TOTAL PARENTERAL NUTRITION 1,560 ML IV SCH (20:00)
[2019-05-03] MEDS: MONTELUKAST 10 MG TAB PO SCH (21:25)
--- NOTE | 2019-05-03 22:03 | IRU Plan of Care ---
Interdisciplinary Plan of Care - IP IRU INTERDISCIPLINARY PLAN: [facility] Inpatient Rehab Unit Plan of Care IRU Interdisciplinary Care Plan Start: 04/30/19 22:24 Freq: Admission then PRN Status: Active Protocol: Document 05/03/19 21:48 TH (Rec: 05/03/19 21:50 TH [id number]) Interdisciplinary Problem List Interdisciplinary Problem List Interdisciplinary Problem List Impaired Bathing/Grooming, Query Text:Answers will Trigger Problems Impaired Dressing,Impaired and Outcomes on Worklist. Mobility,Impaired Transfers, Impaired Skin/Tissue Integrity ,Discharge Concerns,Community Reintergration,Impaired Home Management,Impaired Safety IRU Interdisciplinary Care Plan Therapy Services Therapy Services Will Include: Physical Therapy,Occupational Query Text:Patient will be seen for a Therapy minimum of 3 hours of daily therapy 5 out of 7 days a week. Therapy intensity may be adjusted within a 7 consecutive day period to effectively serve the individual needs of the patient. Treatment Frequency/Intensity/Duration Treatment Frequency 5 days per week Treatment Intensity 3 hours per day Treatment Duration 14-18 days Problem Area: Eating/Swallowing Eating/Swallowing Outcomes Eating/Swallowing Interventions Problem Area: Bathing/Grooming Bathing/Grooming Outcomes Improve Real w/ Grooming,Improve Real w/ Bathing Bathing/Grooming Interventions ADL Training,Use of Assistive Devices,Therapeutic Exercise, Therapeutic Activity, Neuromuscular Re-Education, Balance Work,Activity Tolerance Work,Patient/ Caregiver Education Problem Area: Dressing Dressing Outcomes Improve Real w/ UB Dressing,Improve Real w/ LB Dressing Dressing Interventions ADL Training,Use of Assistive Devices,Neuromuscular Re- Education,Therapeutic Exercise ,Balance Work,Modalities, Patient/Caregiver Education Problem Area: Mobility Mobility Outcomes Improve Real w/ Bed Mobility,Improve Real w/ Ambulation Mobility Interventions Therapeutic Exercise, Neuromuscular Re-Ed.,Activity Tolerance Work,Modalities,Use of Assistive Devices,Patient/ Caregiver Education,Bed Mobility Work,Gait Training, Household Mobility Work Problem Area: Transfers Transfers Outcomes Improve Real w/ Bed Transfers,Improve Real w/ Toilet Transfers,Improve Real w/ Tub/Shower Transfers Transfers Interventions Transfer Training,Therapeutic Exercise,Neuromuscular Re- Education,Visual/Perceptual Training,Activity Tolerance Work,Modalities,Use of Assistive Devices,Patient/ Caregiver Education Problem Area: Bowel/Bladder Managment Bowel/Bladder Outcomes Bowel/Bladder Interventions Problem Area: Toileting Toileting Outcomes Improve Real w/ Toileting Toileting Interventions ADL Training,Balance Work,Use of Assistive Devices,Patient/ Caregiver Education Problem Area: Nutrition Nutrition Outcomes Nutrition Interventions Problem Area: Comprehension Comprehension Outcomes Comprehension Interventions Problem Area: Expression Expression Outcomes Expression Interventions Problem Area: Problem Solving Problem Solving Outcomes Problem Solving Interventions Problem Area: Memory Memory Outcomes Memory Interventions Problem Area: Pain Management Pain Management Outcomes Pain Management Interventions Problem Area: Knowledge Deficits Knowledge Deficits Outcomes Knowledge Deficits Interventions Problem Area: Skin/Tissue Integrity Skin/Tissue Integrity Outcomes Exhibit Healing of Wound/ Incision,Demonstrate Understanding of Pressure Relief,Demonstrate Understanding of Self Wound Care Skin/Tissue Integrity Interventions Skin/Wound Care,Pressure Relief Instruction,Dressing Change Education,Positioning/ Turning Problem Area: Social Interaction Social Interaction Outcomes Social Interaction Interventions Problem Area: Adjustment to Disability Adjustment to Disability Outcomes Adjustment to Disability Interventions Problem Area: Discharge Concerns Discharge Concerns Outcomes Discharge w/ Necessary Equipment,Have Home Health/ Outpatient Services Discharge Concerns Interventions Discharge Planning,Equipment Assessment, Acquisition and Placement,Patient/Family/ Caregiver Counseling,Family/ Caregiver Training Problem Area: Community Reintegration Community Reintegration Outcomes Community Reintegration Interventions Problem Area: Home Management Home Management Outcomes Improve Real w/ Home Management Home Management Interventions Meal Preparation,Clothing Care ,Activity Tolerance Work, Leisure Skills Development, House Cleaning,Patient/ Caregiver Education Problem Area: Safety Safety Outcomes Provide Safe Environment, Perform Selfcare Safely, Demonstrate Good Safety w/ Transfers/Mobility Safety Interventions Identify Fall Risk,[place] to Environment,Reduce Environmental Hazards,Neuro Check Assessment,Implement Mechanical Devices, i.e. Chair Alarm (Post Fall Update),Re- Educate Patient/Caregiver for Safety (Post Fall Update) Problem Area: Medication Education Medication Education Outcomes Medication Education Interventions Problem Area: Diabetes Education Diabetes Education Outcomes Diabetes Education Interventions Problem Area: Oxygenation Oxygenation Outcomes Oxygenation Interventions Problem Area: Cardiovascular Cardiovascular Outcomes Maintain or Improve Cardiovascular Status Cardiovascular Interventions Assess Vital Signs at least Every 4 hours,Cardiac Monitoring, EKG and ABG as Ordered. Physician Only Medical Prognosis and Rehabilitation Potential (Completed by Physician) Good medical prognosis and good rehab potential. This plan of care has been developed based on the findings from the pre- admission assessment, post admission physician evaluation, information gathered from the assessments from all therapy disciplines and other pertinent clinicians. The plan of care has been reviewed and discussed in collaboration with the interdisciplinary team. The plan of care will be reviewed and updated at least weekly.
[2019-05-04] MEDS: OCTREOTIDE 100 MCG/1 ML INJ SUB-Q SCH ×3 (05:56→21:10)
[2019-05-04] MEDS: ONDANSETRON 4 MG/2 ML INJ IV PRN (07:03)
[2019-05-04 07:51] LABS: BUN/Creatinine Ratio 43; Blood Urea Nitrogen 17 mg/dL (7-17); Calcium 8.9 mg/dL (8.4-10.2); Hemolysis Index 2
[2019-05-04] MEDS ORDERED: IPRATROPIUM/ALBUTEROL SULFATE 3 ML AMPUL.NEB IH ONE (08:23)
[2019-05-04] MEDS: IPRATROPIUM/ALBUTEROL SULFATE 3 ML AMPUL.NEB IH SCH ×3 (08:35→20:16)
[2019-05-04] MEDS: guaiFENesin ER 600 MG TAB PO SCH ×2 (09:06→21:07)
[2019-05-04] MEDS: DULoxetine 30 MG CAP PO SCH (09:06)
[2019-05-04] MEDS: PANTOPRAZOLE 40 MG TAB PO SCH ×2 (09:07→21:07)
[2019-05-04] MEDS: SENNOSIDES 8.6 MG TAB PO SCH ×2 (09:07→21:07)
[2019-05-04] MEDS: predniSONE 10 MG TAB PO SCH (09:07)
[2019-05-04] MEDS: busPIRone 10 MG TAB PO SCH ×2 (09:07→21:07)
[2019-05-04] MEDS: ENOXAPARIN 40 MG/0.4 ML INJ SUB-Q SCH (09:07)
[2019-05-04] MEDS: oxyCODONE /ACETAMINOPHEN 5-325MG TAB PO PRN ×2 (13:44→21:14)
--- NOTE | 2019-05-04 17:13 | Progress Note ---
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 She was previously discharged from the hospital in March after a complicated course in which she underwent a sigmoid resection with a colovaginal fistula takedown complicated by right ureteral injury. She underwent wound VAC placed adjacent along with IV antibiotics and after being discharged home noted that the wound VAC was not working well causing increased drainage and increased abdominal pain. 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 Plan is to treat with bowel rest and TPN with allowable sips and chips for taking meds. She developed leukocytosis and infectious disease was consulted which agreed with continuing levofloxacin and metronidazole. Also concern for possible cellulitis versus Gonzalez rotation at the wound VAC site. She also developed a UTI which was treated. Leukocytosis has improved with antibiotic and is almost normalized. Patient was seen by therapy and felt to be a good rehabilitation candidate. After she was medically stabilized she was transferred for further rehabilitation. Interval History Patient is participating in therapy and making reasonable progress. Taking rest breaks as needed. +BM. Denies pain, palpitations, dyspnea, cough, N/V, weakness, or joint pain. Patient does have a question about removing a ureteral stent that was placed by Dr. Mccloud on the acute care side. We will review the note and see if this is something that can be done as an outpatient. EC Fistula: Wound vac in place with appropriate drainage. Nausea but no vomiting. Has had this since starting TPN. Discussed with diet itian. Uncertain of etiology. Dehydration: NS IVF and recheck labs. Slight improvement. Continue IV fluids as needed. No hypoglycemia this AM COPD: No respiratory distress. Hypertension: BP in good range All records, vitals, labs and medications were reviewed. No other issues per patient, nursing or therapy. Objective - Exam Narrative Exam: MUSCULOSKELETAL SPECIALTY EXAM CONSTITUTIONAL: Well developed, well nourished, appropriately groomed RESPIRATORY: Clear to auscultation bilaterally, no increased work of breathing CARDIOVASCULAR: Regular Rate/ Rhythm, no swelling, edema or tenderness in BUE or BLE. Pulses palpable in all extremities. All extremities warm. GI: + bowel sounds, soft, NTTP, nondistended. Abd wound with wound vac INTEGUMENTARY: Normal, no lesion, rash, masses or bruising noted in extremities. MUSCULOSKELETAL: BUE and BLE normal without defect, crepitus, subluxation, effusion, arthritic changes or TTP. BUE 4/5, good ROM, with normal tone. BLE 4/5 good ROM, with normal tone NEURO: CN 2-12 grossly intact. Sensation intact in all extremities. No tremor noted in 4 extremities. POSTURE and GAIT: Sitting posture good. Balance appears reasonable. Gait deferred until seen with therapy. PSYCH: Alert, oriented x3, affect appears normal. Insight appears intact. - Constitutional Vitals: Vital Signs - 12hr 05/04/19 05/04/19 05/04/19 07:51 08:00 08:37 Temperature 36.8 C Pulse Rate 94 H Pulse Rate [ 98 H Anterior Bilateral Throughout] Respiratory 18 Rate Respiratory 20 Rate [Anterior Bilateral Throughout] Blood Pressure 91/58 [Left] O2 Sat by Pulse 99 100 Oximetry - Allied health notes Allied health notes reviewed: nursing, PT, OT FIMS assessment as documented by PT/OT/ST: Locomotion- walk/wheelchair Ambulation Distance 68 - Labs CBC & Chem 7: 05/01/19 06:51 05/05/19 08:41 Labs: Laboratory Results - last 72 hr 05/01/19 05/01/19 05/02/19 17:14 22:09 07:46 Sodium Potassium Chloride Carbon Dioxide Anion Gap BUN Creatinine Estimated GFR BUN/Creatinine Ratio Glucose POC Glucose 136 H 109 H 184 H Calcium Phosphorus Magnesium 05/02/19 05/02/19 05/02/19 11:22 12:13 14:20 Sodium 140 Potassium 4.2 Chloride 98.7 Carbon Dioxide 30 Anion Gap 16 BUN 14 Creatinine 0.4 L Estimated GFR > 60 BUN/Creatinine Ratio 35 Glucose 99 POC Glucose 56 L 225 H Calcium 8.9 Phosphorus 3.30 Magnesium 1.90 05/02/19 05/02/19 05/03/19 16:20 21:52 06:03 Sodium Potassium Chloride Carbon Dioxide Anion Gap BUN Creatinine Estimated GFR BUN/Creatinine Ratio Glucose POC Glucose 100 85 132 H Calcium Phosphorus Magnesium 05/03/19 05/03/19 05/03/19 09:29 12:42 16:47 Sodium 139 Potassium 4.4 Chloride 95.5 L Carbon Dioxide 32 H Anion Gap 16 BUN 17 Creatinine 0.4 L Estimated GFR > 60 BUN/Creatinine Ratio 43 Glucose 79 POC Glucose 89 130 H Calcium 9.6 Phosphorus 3.60 Magnesium 1.90 05/04/19 05/04/19 05/04/19 06:30 07:13 13:24 Sodium 139 Potassium 4.5 Chloride 97.8 L Carbon Dioxide 29 Anion Gap 17 BUN 17 Creatinine 0.4 L Estimated GFR > 60 BUN/Creatinine Ratio 43 Glucose 179 H POC Glucose 158 H 104 Calcium 8.9 Phosphorus 4.40 D Magnesium 1.90 Assessment and Plan Enterocutaneous fistula with wound VAC: Maintain wound VAC, monitor drain output, continue TPN with sips and chips with meds. Monitor for resolution of the leukocytosis or need for further antibiotics. Hypertension: Continue medications and adjust as needed for normotension. Hold for hypotension. COPD with acute on chronic respiratory failure and hypoxia: Continue nebulizer treatments. Monitor for exacerbation. Obstructive sleep apnea: Continue CPAP. Follow up with fruit picker machine operator after discharge. Depression: Continue Cymbalta, monitor for improvement Anxiety: BuSpar, monitor for improvement Mild Pulmonary hypertension: As noted on prior echocardiogram. Apparently prior cardiomyopathy also seen on echocardiogram has resolved per review of cardiology notes Constipation: Continue medications monitor for regular bowel movements. Protein calorie malnutrition: Continue TPN with that replacement, dietitian consult. Monitor prealbumin. Problem with getting TPN restarted. Have contacted pharmacy this morning and they are reverting to previous orders in order to have a going. We'll try to advance her to regular diet once she has been cleared by surgery for regular oral intake Anemia chronic disease: Continue to monitor, transfuse for hemoglobin less than 7. Dehydration: NS IVF, monitor Nausea: medications available, has been a problem since starting TPN ADL dysfunction: OT will work on improving ability to perform ADLs (including assistive devices) to increase independence and decrease caregiver burden and improve functional transfers and mobility training. Difficulty walking: PT will work on gait training and proper use of assistive devices and advance as appropriate to use of stairs and outside ambulation on uneven surfaces. Unsteadiness on feet: PT will work on improving static and dynamic sitting and standing balance as well as proper use of assistive devices to decrease risk of falls. Abnormality of gait: PT will work to improve safety and efficiency of gait through neuromotor training and gait training along with instruction on proper use of assistive devices. Muscle weakness: PT & OT will work on strengthening exercises to improve functional strength including mixture of closed and open kinetic chain exercises. Debility: PT & OT will work on improving overall functional status to improve participation with ADLs, mobility and social involvement. Fatigue: PT & OT will work on improving endurance through aerobic exercises and therapeutic activity while monitoring patients tolerance for activity and vital signs as needed. DVT ppx: Lovenox Pain: Continue physical modalities in therapy and pain medications as needed to achieve functional pain control. Sleep: Monitor and address as needed. Bowel: Monitor and address as needed. Appetite: Monitor and address as needed. Discharge planning: Pending therapy progress and care plan meeting. Will continue discussion with therapy team, SW, patient and family. Restrictions/ Precautions: Falls WB status: FWB Functional Hx: ADLs: Independent Cognition: Independent Mobility: rollator MOD I Barriers to Discharge: Decreased mobility and ability to perform self care, balance deficits, weakness Estimated Length of Stay: 1418 days Discharge Destination: Home with family
[2019-05-04] MEDS ORDERED: TOTAL PARENTERAL NUTRITION 1,560 ML IV SCH (20:00)
[2019-05-04] MEDS: MONTELUKAST 10 MG TAB PO SCH (21:07)
[2019-05-05] MEDS: OCTREOTIDE 100 MCG/1 ML INJ SUB-Q SCH ×3 (05:19→21:48)
[2019-05-05] MEDS: IPRATROPIUM/ALBUTEROL SULFATE 3 ML AMPUL.NEB IH SCH ×3 (08:08→20:13)
[2019-05-05 09:51] LABS: Alanine Aminotransferase 8 units/L (7-56); Albumin 3.4 g/dL (3.9-5); BUN/Creatinine Ratio 48; Blood Urea Nitrogen 19 mg/dL (7-17); Calcium 9.2 mg/dL (8.4-10.2); Hemolysis Index 4
[2019-05-05] MEDS: busPIRone 10 MG TAB PO SCH ×2 (09:51→21:46)
[2019-05-05] MEDS: guaiFENesin ER 600 MG TAB PO SCH ×2 (09:52→21:47)
[2019-05-05] MEDS: PANTOPRAZOLE 40 MG TAB PO SCH ×2 (09:52→21:58)
[2019-05-05] MEDS: predniSONE 10 MG TAB PO SCH (09:53)
[2019-05-05] MEDS: DULoxetine 30 MG CAP PO SCH (09:53)
[2019-05-05] MEDS: ENOXAPARIN 40 MG/0.4 ML INJ SUB-Q SCH (09:53)
[2019-05-05] MEDS: SENNOSIDES 8.6 MG TAB PO SCH ×2 (09:53→22:04)
--- NOTE | 2019-05-05 10:53 | Progress Note ---
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 She was previously discharged from the hospital in March after a complicated course in which she underwent a sigmoid resection with a colovaginal fistula takedown complicated by right ureteral injury. She underwent wound VAC placed adjacent along with IV antibiotics and after being discharged home noted that the wound VAC was not working well causing increased drainage and increased abdominal pain. 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 Plan is to treat with bowel rest and TPN with allowable sips and chips for taking meds. She developed leukocytosis and infectious disease was consulted which agreed with continuing levofloxacin and metronidazole. Also concern for possible cellulitis versus Gonzalez rotation at the wound VAC site. She also developed a UTI which was treated. Leukocytosis has improved with antibiotic and is almost normalized. Patient was seen by therapy and felt to be a good rehabilitation candidate. After she was medically stabilized she was transferred for further rehabilitation. Interval History Patient is participating in therapy and making reasonable progress. Taking rest breaks as needed. +BM. Denies pain, palpitations, dyspnea, cough, N/V, weakness, or joint pain. Awaiting callback from urology concerning removal of ureteral stent. EC Fistula: Wound VAC off currently, dressing placed wet to dry, will have wound VAC replaced shortly. Nausea but no vomiting. Has had this since starting TPN. Discussed with dietitian. Uncertain of etiology. Dehydration: NS IVF and recheck labs. Slight improvement. Continue IV fluids as needed. No hypoglycemia this AM COPD: No respiratory distress. Hypertension: BP in good range, slightly on the lower side All records, vitals, labs and medications were reviewed. No other issues per patient, nursing or therapy. Objective - Exam Narrative Exam: MUSCULOSKELETAL SPECIALTY EXAM CONSTITUTIONAL: Well developed, well nourished, appropriately groomed RESPIRATORY: Clear to auscultation bilaterally, no increased work of breathing CARDIOVASCULAR: Regular Rate/ Rhythm, no swelling, edema or tenderness in BUE or BLE. Pulses palpable in all extremities. All extremities warm. GI: + bowel sounds, soft, NTTP, nondistended. Abd wound with wound vac (wet-to-dry dressing currently) INTEGUMENTARY: Normal, no lesion, rash, masses or bruising noted in extremities. MUSCULOSKELETAL: BUE and BLE normal without defect, crepitus, subluxation, effusion, arthritic changes or TTP. BUE 4/5, good ROM, with normal tone. BLE 4/5 good ROM, with normal tone NEURO: CN 2-12 grossly intact. Sensation intact in all extremities. No tremor noted in 4 extremities. POSTURE and GAIT: Sitting posture good. Balance appears reasonable. Gait deferred until seen with therapy. PSYCH: Alert, oriented x3, affect appears normal. Insight appears intact. - Constitutional Vitals: Vital Signs - 12hr 05/05/19 05/05/19 08:00 08:12 Pulse Rate [ 98 H Anterior Bilateral Throughout] Respiratory 18 Rate [Anterior Bilateral Throughout] O2 Sat by Pulse 98 Oximetry - Allied health notes Allied health notes reviewed: nursing, PT, OT FIMS assessment as documented by PT/OT/ST: Locomotion- walk/wheelchair Ambulation Distance 68 - Labs CBC & Chem 7: 05/01/19 06:51 05/06/19 06:44 Labs: Laboratory Results - last 72 hr 05/02/19 05/02/19 05/02/19 11:22 12:13 14:20 Sodium 140 Potassium 4.2 Chloride 98.7 Carbon Dioxide 30 Anion Gap 16 BUN 14 Creatinine 0.4 L Estimated GFR > 60 BUN/Creatinine Ratio 35 Glucose 99 POC Glucose 56 L 225 H Calcium 8.9 Phosphorus 3.30 Magnesium 1.90 Total Bilirubin AST ALT Alkaline Phosphatase Total Protein Albumin Albumin/Globulin Ratio 05/02/19 05/02/19 05/03/19 16:20 21:52 06:03 Sodium Potassium Chloride Carbon Dioxide Anion Gap BUN Creatinine Estimated GFR BUN/Creatinine Ratio Glucose POC Glucose 100 85 132 H Calcium Phosphorus Magnesium Total Bilirubin AST ALT Alkaline Phosphatase Total Protein Albumin Albumin/Globulin Ratio 05/03/19 05/03/19 05/03/19 09:29 12:42 16:47 Sodium 139 Potassium 4.4 Chloride 95.5 L Carbon Dioxide 32 H Anion Gap 16 BUN 17 Creatinine 0.4 L Estimated GFR > 60 BUN/Creatinine Ratio 43 Glucose 79 POC Glucose 89 130 H Calcium 9.6 Phosphorus 3.60 Magnesium 1.90 Total Bilirubin AST ALT Alkaline Phosphatase Total Protein Albumin Albumin/Globulin Ratio 05/04/19 05/04/19 05/04/19 06:30 07:13 13:24 Sodium 139 Potassium 4.5 Chloride 97.8 L Carbon Dioxide 29 Anion Gap 17 BUN 17 Creatinine 0.4 L Estimated GFR > 60 BUN/Creatinine Ratio 43 Glucose 179 H POC Glucose 158 H 104 Calcium 8.9 Phosphorus 4.40 D Magnesium 1.90 Total Bilirubin AST ALT Alkaline Phosphatase Total Protein Albumin Albumin/Globulin Ratio 05/04/19 05/05/19 05/05/19 18:13 05:43 08:41 Sodium 141 Potassium 4.3 Chloride 97.4 L Carbon Dioxide 28 Anion Gap 20 BUN 19 H Creatinine 0.4 L Estimated GFR > 60 BUN/Creatinine Ratio 48 Glucose 132 H POC Glucose 127 H 134 H Calcium 9.2 Phosphorus 4.40 Magnesium 1.90 Total Bilirubin 0.20 AST 15 ALT 8 Alkaline Phosphatase 53 Total Protein 6.3 Albumin 3.4 L Albumin/Globulin Ratio 1.2 Assessment and Plan Enterocutaneous fistula with wound VAC: Maintain wound VAC, monitor drain output, continue TPN with sips and chips with meds. Monitor for resolution of the leukocytosis or need for further antibiotics. Hypertension: Continue medications and adjust as needed for normotension. Hold for hypotension. COPD with acute on chronic respiratory failure and hypoxia: Continue nebulizer treatments. Monitor for exacerbation. Obstructive sleep apnea: Continue CPAP. Follow up with assistant counsel after discharge. Depression: Continue Cymbalta, monitor for improvement Anxiety: BuSpar, monitor for improvement Mild Pulmonary hypertension: As noted on prior echocardiogram. Apparently prior cardiomyopathy also seen on echocardiogram has resolved per review of cardiology notes Constipation: Continue medications monitor for regular bowel movements. Protein calorie malnutrition: Continue TPN with that replacement, dietitian consult. Monitor prealbumin. Problem with getting TPN restarted. Have contacted pharmacy this morning and they are reverting to previous orders in order to have a going. We'll try to advance her to regular diet once she has b een cleared by surgery for regular oral intake Anemia chronic disease: Continue to monitor, transfuse for hemoglobin less than 7. Dehydration: NS IVF, monitor Nausea: medications available, has been a problem since starting TPN ADL dysfunction: OT will work on improving ability to perform ADLs (including assistive devices) to increase independence and decrease caregiver burden and improve functional transfers and mobility training. Difficulty walking: PT will work on gait training and proper use of assistive devices and advance as appropriate to use of stairs and outside ambulation on uneven surfaces. Unsteadiness on feet: PT will work on improving static and dynamic sitting and standing balance as well as proper use of assistive devices to decrease risk of falls. Abnormality of gait: PT will work to improve safety and efficiency of gait through neuromotor training and gait training along with instruction on proper use of assistive devices. Muscle weakness: PT & OT will work on strengthening exercises to improve functional strength including mixture of closed and open kinetic chain exercises. Debility: PT & OT will work on improving overall functional status to improve participation with ADLs, mobility and social involvement. Fatigue: PT & OT will work on improving endurance through aerobic exercises and therapeutic activity while monitoring patients tolerance for activity and vital signs as needed. DVT ppx: Lovenox Pain: Continue physical modalities in therapy and pain medications as needed to achieve functional pain control. Sleep: Monitor and address as needed. Bowel: Monitor and address as needed. Appetite: Monitor and address as needed. Discharge planning: Pending therapy progress and care plan meeting. Will continue discussion with therapy team, SW, patient and family. Restrictions/ Precautions: Falls WB status: FWB Functional Hx: ADLs: Independent Cognition: Independent Mobility: rollator MOD I Barriers to Discharge: Decreased mobility and ability to perform self care, balance deficits, weakness Estimated Length of Stay: 1418 days Discharge Destination: Home with family
[2019-05-05] MEDS: oxyCODONE /ACETAMINOPHEN 5-325MG TAB PO PRN ×2 (12:40→22:04)
[2019-05-05] MEDS: ONDANSETRON 4 MG/2 ML INJ IV PRN (13:43)
[2019-05-05] MEDS ORDERED: TOTAL PARENTERAL NUTRITION 1,560 ML IV SCH (20:00)
[2019-05-05] MEDS ORDERED: FAT EMULSIONS 20% 250 ML IV SCH (20:00)
[2019-05-05] MEDS: MONTELUKAST 10 MG TAB PO SCH (21:48)
[2019-05-06] MEDS: OCTREOTIDE 100 MCG/1 ML INJ SUB-Q SCH ×3 (06:12→21:42)
[2019-05-06 08:36] LABS: BUN/Creatinine Ratio 63; Blood Urea Nitrogen 19 mg/dL (7-17); Hemolysis Index 2
[2019-05-06] MEDS: busPIRone 10 MG TAB PO SCH ×2 (09:14→21:42)
[2019-05-06] MEDS: DULoxetine 30 MG CAP PO SCH (09:15)
[2019-05-06] MEDS: SENNOSIDES 8.6 MG TAB PO SCH ×2 (09:15→21:42)
[2019-05-06] MEDS: ENOXAPARIN 40 MG/0.4 ML INJ SUB-Q SCH (09:15)
[2019-05-06] MEDS: guaiFENesin ER 600 MG TAB PO SCH ×2 (09:15→21:42)
[2019-05-06] MEDS: PANTOPRAZOLE 40 MG TAB PO SCH ×2 (09:15→21:42)
[2019-05-06] MEDS: predniSONE 10 MG TAB PO SCH (09:15)
[2019-05-06] MEDS: IPRATROPIUM/ALBUTEROL SULFATE 3 ML AMPUL.NEB IH SCH ×4 (10:10→21:02)
--- NOTE | 2019-05-06 14:06 | Progress Note ---
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 She was previously discharged from the hospital in March after a complicated course in which she underwent a sigmoid resection with a colovaginal fistula takedown complicated by right ureteral injury. She underwent wound VAC placed adjacent along with IV antibiotics and after being discharged home noted that the wound VAC was not working well causing increased drainage and increased abdominal pain. 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 Plan is to treat with bowel rest and TPN with allowable sips and chips for taking meds. She developed leukocytosis and infectious disease was consulted which agreed with continuing levofloxacin and metronidazole. Also concern for possible cellulitis versus Gonzalez rotation at the wound VAC site. She also developed a UTI which was treated. Leukocytosis has improved with antibiotic and is almost normalized. Patient was seen by therapy and felt to be a good rehabilitation candidate. After she was medically stabilized she was transferred for further rehabilitation. Interval History Patient is participating in therapy and making reasonable progress. Taking rest breaks as needed. +BM. Patient had an episode of nausea this morning, nothing necessarily brought it on or made it worse but it was made better with Zofran and a little bit of rest. Also noted that she had a sensation of swelling in her mouth, could not distinguish anything on physical exam either visually or by palpation. Denies pain, palpitations, dyspnea, cough, V, weakness, or joint pain. Awaiting callback from urology concerning removal of ureteral stent, at this point she will be discharged next week and can follow-up as an outpatient for removal of the stent. We will attempt to contact urology again and communicate this. EC Fistula: Wound VAC off currently, dressing placed wet to dry, will have wound VAC replaced shortly. Nausea but no vomiting. Has had this since starting TPN. Discussed with dietitian. Uncertain of etiology. Dehydration: NS IVF and recheck labs. Slight improvement. Continue IV fluids as needed. No hypoglycemia this AM COPD: No respiratory distress. Hypertension: BP in good range, slightly on the lower side Patient discussed in team conference. From a therapy standpoint she is actually doing pretty well. She would likely be able to go home on May 13. For her ADLs she has mostly standby assist, does have some episodes of decreased endurance. Primary issue will be continuing her TPN and IV fluids in order to maintain hydration. She will need a rolling walker and a 3 and 1 at discharge. She already has the wound VAC order placed. Due to the complexity of her TPN, IV fluids and intermittent hypoglycemia she is considering going to a senior care facility. Later in the afternoon before he left the hospital I also had an opportunity to speak with her concerning these options in depth and his comfort level with providing care for her at home. He states that he wants to do whichever is best for her but if she does go to a senior care facility he wants her to be in a nicer facility where they will actually provide high- level quality care for her. They are going to think about it over the weekend and we will rediscuss next week on Friday. I contacted Dr. Phillips concerning the patient's increased output in her wound VAC. He is going to see her tomorrow morning. In total today greater than 50 minutes was invested [id number] with the kenroy lawler and her separately, as well as counseling and coordinating care with other providers including 2 physicians, nursing, and therapy. All records, vitals, labs and medications were reviewed. No other issues per patient, nursing or therapy. Objective - Exam Narrative Exam: MUSCULOSKELETAL SPECIALTY EXAM CONSTITUTIONAL: Well developed, well nourished, appropriately groomed RESPIRATORY: Clear to auscultation bilaterally, no increased work of breathing CARDIOVASCULAR: Regular Rate/ Rhythm, no swelling, edema or tenderness in BUE or BLE. Pulses palpable in all extremities. All extremities warm. GI: + bowel sounds, soft, NTTP, nondistended. Abd wound with wound vac, increased output. INTEGUMENTARY: Normal, no lesion, rash, masses or bruising noted in extremities. MUSCULOSKELETAL: BUE and BLE normal without defect, crepitus, subluxation, effusion, arthritic changes or TTP. BUE 4/5, good ROM, with normal tone. BLE 4/5 good ROM, with normal tone NEURO: CN 2-12 grossly intact. Sensation intact in all extremities. No tremor noted in 4 extremities. POSTURE and GAIT: Sitting posture good. Balance appears reasonable. Gait ambulating with a rolling walker, no loss of balance but does have some give way weakness of the hip at times.. PSYCH: Alert, oriented x3, affect appears normal. Insight appears intact. - Constitutional Vitals: Vital Signs - 12hr 05/06/19 05/06/19 05/06/19 07:10 08:00 10:00 Temperature 98.0 F Pulse Rate 100 H Pulse Rate [ 99 H Anterior Bilateral Throughout] Respiratory 20 Rate Respiratory 18 Rate [Anterior Bilateral Throughout] Blood Pressure 98/55 Blood Pressure [Left] O2 Sat by Pulse 99 99 Oximetry 05/06/19 11:58 Temperature 98.7 F Pulse Rate 110 H Pulse Rate [ Anterior Bilateral Throughout] Respiratory 18 Rate Respiratory Rate [Anterior Bilateral Throughout] Blood Pressure Blood Pressure 103/61 [Left] O2 Sat by Pulse 97 Oximetry - Allied health notes Allied health notes reviewed: nursing, PT, OT FIMS assessment as documented by PT/OT/ST: Locomotion- walk/wheelchair Ambulation Distance 68 - Labs CBC & Chem 7: 05/07/19 06:51 05/07/19 06:51 Labs: Laboratory Results - last 72 hr 05/03/19 05/04/19 05/04/19 16:47 06:30 07:13 Sodium 139 Potassium 4.5 Chloride 97.8 L Carbon Dioxide 29 Anion Gap 17 BUN 17 Creatinine 0.4 L Estimated GFR > 60 BUN/Creatinine Ratio 43 Glucose 179 H POC Glucose 130 H 158 H Calcium 8.9 Phosphorus 4.40 D Magnesium 1.90 Total Bilirubin AST ALT Alkaline Phosphatase Total Protein Albumin Albumin/Globulin Ratio 05/04/19 05/04/19 05/05/19 13:24 18:13 05:43 Sodium Potassium Chloride Carbon Dioxide Anion Gap BUN Creatinine Estimated GFR BUN/Creatinine Ratio Glucose POC Glucose 104 127 H 134 H Calcium Phosphorus Magnesium Total Bilirubin AST ALT Alkaline Phosphatase Total Protein Albumin Albumin/Globulin Ratio 05/05/19 05/05/19 05/05/19 08:41 12:57 18:04 Sodium 141 Potassium 4.3 Chloride 97.4 L Carbon Dioxide 28 Anion Gap 20 BUN 19 H Creatinine 0.4 L Estimated GFR > 60 BUN/Creatinine Ratio 48 Glucose 132 H POC Glucose 105 148 H Calcium 9.2 Phosphorus 4.40 Magnesium 1.90 Total Bilirubin 0.20 AST 15 ALT 8 Alkaline Phosphatase 53 Total Protein 6.3 Albumin 3.4 L Albumin/Globulin Ratio 1.2 05/06/19 05/06/19 05/06/19 01:33 06:44 11:47 Sodium 140 Potassium 4.7 Chloride 99.4 Carbon Dioxide 29 Anion Gap 16 BUN 19 H Creatinine 0.3 L Estimated GFR > 60 BUN/Creatinine Ratio 63 Glucose 165 H POC Glucose 211 H 100 Calcium 9.0 Phosphorus 4.20 Magnesium 1.90 Total Bilirubin AST ALT Alkaline Phosphatase Total Protein Albumin Albumin/Globulin Ratio Assessment and Plan Enterocutaneous fistula with wound VAC: Maintain wound VAC, monitor drain output, continue TPN with sips and chips with meds. Monitor for resolution of the leukocytosis or need for further antibiotics. Hypertension: Continue medications and adjust as needed for normotension. Hold for hypotension. COPD with acute on chronic respiratory failure and hypoxia: Continue nebulizer treatments. Monitor for exacerbation. Obstructive sleep apnea: Continue CPAP. Follow up with racing secretary and handicapper after discharge. Depression: Continue Cymbalta, monitor for improvement Anxiety: BuSpar, monitor for improvement Mild Pulmonary hypertension: As noted on prior echocardiogram. Apparently prior cardiomyopathy also seen on echocardiogram has resolved per review of cardiology notes Constipation: Continue medications monitor for regular bowel movements. Protein calorie malnutrition: Continue TPN with that replacement, dietitian consult. Monitor prealbumin. Problem with getting TPN restarted. Have contacted pharmacy this morning and they are reverting to previous orders in order to have a going. We'll try to advance her to regular diet once she has been cleared by surgery for regular oral intake Anemia chronic disease: Continue to monitor, transfuse for hemoglobin less than 7. Dehydration: NS IVF, monitor Nausea: medications available, has been a problem since starting TPN Ureteral stent placed for transection of ureter, follow-up with urology after discharge next week for removal. ADL dysfunction: OT will work on improving ability to perform ADLs (including assistive devices) to increase independence and decrease caregiver burden and improve functional transfers and mobility training. Difficulty walking: PT will work on gait training and proper use of assistive devices and advance as appropriate to use of stairs and outside ambulation on uneven surfaces. Unsteadiness on feet: PT will work on improving static and dynamic sitting and standing balance as well as proper use of assistive devices to decrease risk of falls. Abnormality of gait: PT will work to improve safety and efficiency of gait through neuromotor training and gait training along with instruction on proper use of assistive devices. Muscle weakness: PT & OT will work on strengthening exercises to improve functional strength including mixture of closed and open kinetic chain exercises. Debility: PT & OT will work on improving overall functional status to improve participation with ADLs, mobility and social involvement. Fatigue: PT & OT will work on improving endurance through aerobic exercises and therapeutic activity while monitoring patients tolerance for activity and vital signs as needed. DVT ppx: Lovenox Pain: Continue physical modalities in therapy and pain medications as needed to achieve functional pain control. Sleep: Monitor and address as needed. Bowel: Monitor and address as needed. Appetite: Monitor and address as needed. Discharge planning: Pending therapy progress and care plan meeting. Will continue discussion with therapy team, SW, patient and family. Plan to discharge on May 13. Family and patient are considering going to senior care facility versus home with home health. Due to medical complexity she may be safer at a senior care facility. Have discussed this with both the patient as well as her and they will give us decision early next week. Restrictions/ Precautions: Falls WB status: FWB Functional Hx: ADLs: Independent Cognition: Independent Mobility: rollator MOD I Barriers to Discharge: Decreased mobility and ability to perform self care, balance deficits, weakness Estimated Length of Stay: 1418 days Discharge Destination: Home with family
[2019-05-06] MEDS: SODIUM CHLORIDE 0.9% 1000 ML 1,000 ML IV SCH (14:58)
[2019-05-06] MEDS: ONDANSETRON 4 MG/2 ML INJ IV PRN (14:58)
[2019-05-06] MEDS ORDERED: predniSONE 10 MG TAB PO ONE (15:00)
[2019-05-06] MEDS: oxyCODONE /ACETAMINOPHEN 5-325MG TAB PO PRN (18:02)
[2019-05-06 19:16] LABS: Basophils % (Auto) 0.4 % (0.0-1.8); Eosinophils # (Auto) 0.1 K/mm3 (0.0-0.4); Eosinophils % (Auto) 0.7 % (0.0-4.3); Hematocrit 31.4 % (30.3-42.9); Hemoglobin 10.1 gm/dl (10.1-14.3); Lymphocytes # (Auto) 1.2 K/mm3 (1.2-5.4); Lymphocytes % (Auto) 11.8 % (13.4-35.0); Mean Corpuscular HGB Conc 32 % (30-34); Mean Corpuscular Volume 82 fl (79-97); Monocytes # (Auto) 0.6 K/mm3 (0.0-0.8); Monocytes % (Auto) 6.3 % (0.0-7.3); Platelet Count 384 K/mm3 (140-440); Red Blood Count 3.83 M/mm3 (3.65-5.03); Red Cell Distribution Width 16.2 % (13.2-15.2)
[2019-05-06] MEDS ORDERED: TOTAL PARENTERAL NUTRITION 1,560 ML IV SCH (20:00)
[2019-05-06] MEDS: MONTELUKAST 10 MG TAB PO SCH (21:42)
[2019-05-07] MEDS: oxyCODONE /ACETAMINOPHEN 5-325MG TAB PO PRN ×3 (00:29→21:50)
[2019-05-07] MEDS: SODIUM CHLORIDE 0.9% 1000 ML 1,000 ML IV SCH ×2 (00:34→15:24)
[2019-05-07] MEDS: OCTREOTIDE 100 MCG/1 ML INJ SUB-Q SCH ×3 (05:21→21:49)
[2019-05-07] MEDS: DEXTROSE 50% IN WATER (25GM) 50 ML SYRINGE IV PRN (06:39)
[2019-05-07] MEDS: IPRATROPIUM/ALBUTEROL SULFATE 3 ML AMPUL.NEB IH SCH ×3 (07:39→20:00)
[2019-05-07 07:43] LABS: Hematocrit 28.9 % (30.3-42.9); Hemoglobin 9.2 gm/dl (10.1-14.3); Mean Corpuscular HGB Conc 32 % (30-34); Mean Corpuscular Volume 83 fl (79-97); Platelet Count 380 K/mm3 (140-440); Red Blood Count 3.51 M/mm3 (3.65-5.03); Red Cell Distribution Width 16.4 % (13.2-15.2)
[2019-05-07 08:06] LABS: BUN/Creatinine Ratio 40; Blood Urea Nitrogen 16 mg/dL (7-17); Calcium 8.5 mg/dL (8.4-10.2); Hemolysis Index 6
[2019-05-07] MEDS: predniSONE 10 MG TAB PO SCH (09:19)
[2019-05-07] MEDS: busPIRone 10 MG TAB PO SCH ×2 (09:19→21:50)
[2019-05-07] MEDS: DULoxetine 30 MG CAP PO SCH (09:19)
[2019-05-07] MEDS: SENNOSIDES 8.6 MG TAB PO SCH ×2 (09:19→21:50)
[2019-05-07] MEDS: guaiFENesin ER 600 MG TAB PO SCH ×2 (09:21→21:49)
[2019-05-07] MEDS: PANTOPRAZOLE 40 MG TAB PO SCH ×2 (09:21→21:49)
[2019-05-07] MEDS: ENOXAPARIN 40 MG/0.4 ML INJ SUB-Q SCH (09:21)
--- NOTE | 2019-05-07 10:31 | Progress Note ---
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 She was previously discharged from the hospital in March after a complicated course in which she underwent a sigmoid resection with a colovaginal fistula takedown complicated by right ureteral injury. She underwent wound VAC placed adjacent along with IV antibiotics and after being discharged home noted that the wound VAC was not working well causing increased drainage and increased abdominal pain. 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 Plan is to treat with bowel rest and TPN with allowable sips and chips for taking meds. She developed leukocytosis and infectious disease was consulted which agreed with continuing levofloxacin and metronidazole. Also concern for possible cellulitis versus Gonzalez rotation at the wound VAC site. She also developed a UTI which was treated. Leukocytosis has improved with antibiotic and is almost normalized. Patient was seen by therapy and felt to be a good rehabilitation candidate. After she was medically stabilized she was transferred for further rehabilitation. Interval History Patient is participating in therapy and making reasonable progress. Taking rest breaks as needed. +BM. Denies pain, palpitations, dyspnea, cough, N/V, or joint pain. Awaiting callback from urology concerning removal of ureteral stent, at this point she will be discharged next week and can follow-up as an outpatient for removal of the stent. We will attempt to contact urology again and communicate this. EC Fistula high output: Wound VAC. Monitoring amount of output hopefully this will slow down with time. Surgeon notified and will follow up with her as well. No nausea or vomiting today. Dehydration: NS IVF and recheck labs. Slight improvement. Continue IV fluids COPD: No respiratory distress. Hypertension: BP in good range, slightly on the lower side Hypoglycemia: Patient has had several episodes of hypoglycemia. Usually occurs in the morning All records, vitals, labs and medications were reviewed. No other issues per patient, nursing or therapy. Objective - Exam Narrative Exam: MUSCULOSKELETAL SPECIALTY EXAM CONSTITUTIONAL: Well developed, well nourished, appropriately groomed RESPIRATORY: Clear to auscultation bilaterally, no increased work of breathing CARDIOVASCULAR: Regular Rate/ Rhythm, no swelling, edema or tenderness in BUE or BLE. Pulses palpable in all extremities. All extremities warm. GI: + bowel sounds, soft, NTTP, nondistended. Abd wound with wound vac, increased output. INTEGUMENTARY: Normal, no lesion, rash, masses or bruising noted in extremities. MUSCULOSKELETAL: BUE and BLE normal without defect, crepitus, subluxation, effusion, arthritic changes or TTP. BUE 4/5, good ROM, with normal tone. BLE 4/5 good ROM, with normal tone NEURO: CN 2-12 grossly intact. Sensation intact in all extremities. No tremor noted in 4 extremities. POSTURE and GAIT: Sitting posture good. Balance appears reasonable. Gait ambulating with a rolling walker, no loss of balance but does have some give way weakness of the hip at times.. PSYCH: Alert, oriented x3, affect appears normal. Insight appears intact. - Constitutional Vitals: Vital Signs - 12hr 05/07/19 07:18 Temperature 97.8 F Pulse Rate 82 Respiratory 18 Rate Blood Pressure 96/61 O2 Sat by Pulse 100 Oximetry - Allied health notes Allied health notes reviewed: nursing, PT, OT FIMS assessment as documented by PT/OT/ST: Locomotion- walk/wheelchair Ambulation Distance 68 - Labs CBC & Chem 7: 05/07/19 06:51 05/07/19 06:51 Labs: Laboratory Results - last 72 hr 05/04/19 05/04/19 05/05/19 13:24 18:13 05:43 WBC RBC Hgb Hct MCV MCH MCHC RDW Plt Count Lymph % (Auto) [place] % (Auto) Eos % (Auto) Baso % (Auto) Lymph # [place] # Eos # Baso # Seg Neutrophils % Seg Neutrophils # Sodium Potassium Chloride Carbon Dioxide Anion Gap BUN Creatinine Estimated GFR BUN/Creatinine Ratio Glucose POC Glucose 104 127 H 134 H Calcium Phosphorus Magnesium Total Bilirubin AST ALT Alkaline Phosphatase Total Protein Albumin Albumin/Globulin Ratio 05/05/19 05/05/19 05/05/19 08:41 12:57 18:04 WBC RBC Hgb Hct MCV MCH MCHC RDW Plt Count Lymph % (Auto) [place] % (Auto) Eos % (Auto) Baso % (Auto) Lymph # [place] # Eos # Baso # Seg Neutrophils % Seg Neutrophils # Sodium 141 Potassium 4.3 Chloride 97.4 L Carbon Dioxide 28 Anion Gap 20 BUN 19 H Creatinine 0.4 L Estimated GFR > 60 BUN/Creatinine Ratio 48 Glucose 132 H POC Glucose 105 148 H Calcium 9.2 Phosphorus 4.40 Magnesium 1.90 Total Bilirubin 0.20 AST 15 ALT 8 Alkaline Phosphatase 53 Total Protein 6.3 Albumin 3.4 L Albumin/Globulin Ratio 1.2 05/06/19 05/06/19 05/06/19 01:33 06:44 11:47 WBC RBC Hgb Hct MCV MCH MCHC RDW Plt Count Lymph % (Auto) [place] % (Auto) Eos % (Auto) Baso % (Auto) Lymph # [place] # Eos # Baso # Seg Neutrophils % Seg Neutrophils # Sodium 140 Potassium 4.7 Chloride 99.4 Carbon Dioxide 29 Anion Gap 16 BUN 19 H Creatinine 0.3 L Estimated GFR > 60 BUN/Creatinine Ratio 63 Glucose 165 H POC Glucose 211 H 100 Calcium 9.0 Phosphorus 4.20 Magnesium 1.90 Total Bilirubin AST ALT Alkaline Phosphatase Total Protein Albumin Albumin/Globulin Ratio 05/06/19 05/06/19 05/07/19 18:00 19:00 00:10 WBC 9.8 RBC 3.83 Hgb 10.1 Hct 31.4 MCV 82 MCH 26 L MCHC 32 RDW 16.2 H Plt Count 384 Lymph % (Auto) 11.8 L [place] % (Auto) 6.3 Eos % (Auto) 0.7 Baso % (Auto) 0.4 Lymph # 1.2 [place] # 0.6 Eos # 0.1 Baso # 0.0 Seg Neutrophils % 80.8 H Seg Neutrophils # 7.9 H Sodium Potassium Chloride Carbon Dioxide Anion Gap BUN Creatinine Estimated GFR BUN/Creatinine Ratio Glucose POC Glucose 135 H 107 H Calcium Phosphorus Magnesium Total Bilirubin AST ALT Alkaline Phosphatase Total Protein Albumin Albumin/Globulin Ratio 05/07/19 05/07/19 05/07/19 06:39 06:51 06:51 WBC 9.5 RBC 3.51 L Hgb 9.2 L Hct 28.9 L MCV 83 MCH 26 L MCHC 32 RDW 16.4 H Plt Count 380 Lymph % (Auto) [place] % (Auto) Eos % (Auto) Baso % (Auto) Lymph # [place] # Eos # Baso # Seg Neutrophils % Seg Neutrophils # Sodium 139 Potassium 4.7 Chloride 99.8 Carbon Dioxide 27 Anion Gap 17 BUN 16 Creatinine 0.4 L Estimated GFR > 60 BUN/Creatinine Ratio 40 Glucose 178 H POC Glucose 46 L Calcium 8.5 Phosphorus 3.80 Magnesium 2.00 Total Bilirubin AST ALT Alkaline Phosphatase Total Protein Albumin Albumin/Globulin Ratio 05/07/19 05/07/19 06:51 07:27 WBC RBC Hgb Hct MCV MCH MCHC RDW Plt Count Lymph % (Auto) [place] % (Auto) Eos % (Auto) Baso % (Auto) Lymph # [place] # Eos # Baso # Seg Neutrophils % Seg Neutrophils # Sodium Potassium Chloride Carbon Dioxide Anion Gap BUN Creatinine Estimated GFR BUN/Creatinine Ratio Glucose 178 H POC Glucose 142 H Calcium Phosphorus Magnesium Total Bilirubin AST ALT Alkaline Phosphatase Total Protein Albumin Albumin/Globulin Ratio Assessment and Plan Enterocutaneous fistula (high output) with wound VAC: Maintain wound VAC, monitor drain output, continue TPN with sips and chips with meds. Monitor for resolution of the leukocytosis or need for further antibiotics. Hypertension: Continue medications and adjust as needed for normotension. Hold for hypotension. COPD with acute on chronic respiratory failure and hypoxia: Continue nebulizer treatments. Monitor for exacerbation. Hypoglycemia: Intermittent, typically in the morning. Resolves with D50. Obstructive sleep apnea: Continue CPAP. Follow up with brass cleaner after discharge. Depression: Continue Cymbalta, monitor for improvement Anxiety: BuSpar, monitor for improvement Mild Pulmonary hypertension: As noted on prior echocardiogram. Apparently prior cardiomyopathy also seen on echocardiogram has resolved per review of cardiology notes Constipation: Continue medications monitor for regular bowel movements. Protein calorie malnutrition: Continue TPN with that replacement, dietitian consult. Monitor prealbumin. Anemia chronic disease: Continue to monitor, transfuse for hemoglobin less than 7. Dehydration: NS IVF, monitor Nausea: medications available, has been a problem since starting TPN Ureteral stent placed for transection of ureter, follow-up with urology after discharge next week for removal. ADL dysfunction: OT will work on improving ability to perform ADLs (including assistive devices) to increase independence and decrease caregiver burden and improve functional transfers and mobility training. Difficulty walking: PT will work on gait training and proper use of assistive devices and advance as appropriate to use of stairs and outside ambulation on uneven surfaces. Unsteadiness on feet: PT will work on improving static and dynamic sitting and standing balance as well as proper use of assistive devices to decrease risk of falls. Abnormality of gait: PT will work to improve safety and efficiency of gait through neuromotor training and gait training along with instruction on proper use of assistive devices. Muscle weakness: PT & OT will work on strengthening exercises to improve functional strength including mixture of closed and open kinetic chain exercises. Debility: PT & OT will work on improving overall functional status to improve participation with ADLs, mobility and social involvement. Fatigue: PT & OT will work on improving endurance through aerobic exercises and therapeutic activity while monitoring patients tolerance for activity and vital signs as needed. DVT ppx: Lovenox Pain: Continue physical modalities in therapy and pain medications as needed to achieve functional pain control. Sleep: Monitor and address as needed. Bowel: Monitor and address as needed. Appetite: Monitor and address as needed. Discharge planning: Pending therapy progress and care plan meeting. Will continue discussion with therapy team, SW, patient and family. Plan to discharge on May 13. Family and patient are considering going to shelter facility versus home with home health. Due to medical complexity she may be safer at a shelter facility. Have discussed this with both the patient as well as her and they will give us decision early next week. Restrictions/ Precautions: Falls WB status: FWB Functional Hx: ADLs: Independent Cognition: Independent Mobility: rollator MOD I Barriers to Discharge: Decreased mobility and ability to perform self care, balance deficits, weakness Estimated Length of Stay: 1418 days Discharge Destination: Home with family
--- NOTE | 2019-05-07 17:19 | Progress Note ---
Assessment and Plan - Patient Problems (1) Abdominal fistula Current Visit: No Status: Acute Plan to address problem: Pt stable. Patient appears stronger compared to last week. Based on the recorded numbers in [employer] and in talking to the patient, it does not appear as though the fistula output has changed significantly. It seems as though on occasion there may be higher than normal outputs. Overall, the output appears to be consistent with our past observations. It still appears to be consistent with a low output fistula (less than 500 mL per day). At this point, would not change any of the current care. Patient reports that she may be transferred to a group home care facility soon. We would ask that the TPN and octreotide be continued, if possible. We can follow up with her in the wound care clinic on a weekly basis. We greatly appreciate acute rehabilitation accepting her as a patient and helping her to get better. Please call with questions. time=10min Subjective Date of service: 05/07/19 Patient Reports: Positive: feels better (feels stronger. ), bowel movement, nausea (only when fat emulsion fiven), other (only occasionally will have increased output from fistula. Generally the output is consistent and at the same level as in the past.) Objective Vital Signs - 12hr 05/07/19 05/07/19 05/07/19 07:18 07:39 14:17 Temperature 97.8 F Pulse Rate 82 Pulse Rate [ 100 H 90 Anterior Bilateral Throughout] Respiratory 18 Rate Respiratory 18 18 Rate [Anterior Bilateral Throughout] Blood Pressure 96/61 O2 Sat by Pulse 100 99 Oximetry - General physical appearance well developed, well nourished, other (looks much better) - Respiratory normal expansion, normal respiratory effort - Abdomen soft, other (wound vac in place. Minimal output in canister) - Psychiatric oriented to time, oriented to person, oriented to place, speech is normal, memory intact - Labs 05/07/19 06:51 05/07/19 06:51 Diabetes panel 05/07/19 05/07/19 Range/Units 06:51 06:51 Sodium 139 (137-145) mmol/L Potassium 4.7 (3.6-5.0) mmol/L Chloride 99.8 (98-107) mmol/L Carbon Dioxide 27 (22-30) mmol/L BUN 16 (7-17) mg/dL Creatinine 0.4 L (0.7-1.2) mg/dL Glucose 178 H 178 H (65-100) mg/dL Calcium 8.5 (8.4-10.2) mg/dL Calcium panel 05/07/19 Range/Units 06:51 Calcium 8.5 (8.4-10.2) mg/dL Phosphorus 3.80 (2.5-4.5) mg/dL Pituitary panel 05/07/19 05/07/19 Range/Units 06:51 06:51 Sodium 139 (137-145) mmol/L Potassium 4.7 (3.6-5.0) mmol/L Chloride 99.8 (98-107) mmol/L Carbon Dioxide 27 (22-30) mmol/L BUN 16 (7-17) mg/dL Creatinine 0.4 L (0.7-1.2) mg/dL Glucose 178 H 178 H (65-100) mg/dL Calcium 8.5 (8.4-10.2) mg/dL Adrenal panel 05/07/19 05/07/19 Range/Units 06:51 06:51 Sodium 139 (137-145) mmol/L Potassium 4.7 (3.6-5.0) mmol/L Chloride 99.8 (98-107) mmol/L Carbon Dioxide 27 (22-30) mmol/L BUN 16 (7-17) mg/dL Creatinine 0.4 L (0.7-1.2) mg/dL Glucose 178 H 178 H (65-100) mg/dL Calcium 8.5 (8.4-10.2) mg/dL
[2019-05-07] MEDS ORDERED: TOTAL PARENTERAL NUTRITION 1,560 ML IV SCH (20:00)
[2019-05-07] MEDS ORDERED: FAT EMULSIONS 20% 250 ML IV SCH (20:00)
[2019-05-07] MEDS: MONTELUKAST 10 MG TAB PO SCH (21:50)
[2019-05-08] MEDS: OCTREOTIDE 100 MCG/1 ML INJ SUB-Q SCH ×3 (06:15→21:15)
[2019-05-08 07:44] LABS: BUN/Creatinine Ratio 47; Blood Urea Nitrogen 14 mg/dL (7-17); Calcium 8.7 mg/dL (8.4-10.2); Hemolysis Index 3
[2019-05-08] MEDS: IPRATROPIUM/ALBUTEROL SULFATE 3 ML AMPUL.NEB IH SCH ×3 (08:27→22:13)
[2019-05-08] MEDS: DULoxetine 30 MG CAP PO SCH (10:50)
[2019-05-08] MEDS: ENOXAPARIN 40 MG/0.4 ML INJ SUB-Q SCH (10:50)
[2019-05-08] MEDS: PANTOPRAZOLE 40 MG TAB PO SCH ×2 (11:50→21:16)
[2019-05-08] MEDS: SENNOSIDES 8.6 MG TAB PO SCH ×2 (11:50→21:26)
[2019-05-08] MEDS: predniSONE 10 MG TAB PO SCH (11:51)
[2019-05-08] MEDS: guaiFENesin ER 600 MG TAB PO SCH ×2 (11:51→21:16)
[2019-05-08] MEDS: busPIRone 10 MG TAB PO SCH ×2 (11:51→21:17)
[2019-05-08] MEDS: oxyCODONE /ACETAMINOPHEN 5-325MG TAB PO PRN ×2 (12:54→21:16)
[2019-05-08] MEDS: DEXTROSE 50% IN WATER (25GM) 50 ML SYRINGE IV PRN (12:55)
[2019-05-08] MEDS: SODIUM CHLORIDE 0.9% 1000 ML 1,000 ML IV SCH (16:29)
[2019-05-08] MEDS ORDERED: TOTAL PARENTERAL NUTRITION 1,560 ML IV SCH (20:00)
[2019-05-08] MEDS: SIMETHICONE 80 MG CHEW TAB PO PRN (21:16)
[2019-05-08] MEDS: MONTELUKAST 10 MG TAB PO SCH (21:17)
[2019-05-09] MEDS: OCTREOTIDE 100 MCG/1 ML INJ SUB-Q SCH ×3 (06:04→21:36)
[2019-05-09 07:20] LABS: BUN/Creatinine Ratio 50; Blood Urea Nitrogen 15 mg/dL (7-17); Calcium 8.9 mg/dL (8.4-10.2); Hemolysis Index 0
[2019-05-09] MEDS: IPRATROPIUM/ALBUTEROL SULFATE 3 ML AMPUL.NEB IH SCH ×3 (09:17→19:56)
[2019-05-09] MEDS: SENNOSIDES 8.6 MG TAB PO SCH ×2 (10:24→23:57)
[2019-05-09] MEDS: predniSONE 10 MG TAB PO SCH (10:24)
[2019-05-09] MEDS: DULoxetine 30 MG CAP PO SCH (10:24)
[2019-05-09] MEDS: guaiFENesin ER 600 MG TAB PO SCH ×2 (10:24→21:37)
[2019-05-09] MEDS: PANTOPRAZOLE 40 MG TAB PO SCH ×2 (10:24→21:37)
[2019-05-09] MEDS: busPIRone 10 MG TAB PO SCH ×2 (10:24→21:36)
[2019-05-09] MEDS: ENOXAPARIN 40 MG/0.4 ML INJ SUB-Q SCH (10:25)
[2019-05-09] MEDS: SIMETHICONE 80 MG CHEW TAB PO PRN (10:35)
[2019-05-09] MEDS ORDERED: ALTEPLASE 2 MG INJ IV ONE (15:57)
[2019-05-09] MEDS ORDERED: WATER FOR INJ Sterile (PF) 10 ML ONE (17:22)
[2019-05-09] MEDS ORDERED: TOTAL PARENTERAL NUTRITION 1,560 ML IV SCH (20:00)
[2019-05-09] MEDS: MONTELUKAST 10 MG TAB PO SCH (21:36)
[2019-05-09] MEDS: oxyCODONE /ACETAMINOPHEN 5-325MG TAB PO PRN (21:37)
[2019-05-10] MEDS: OCTREOTIDE 100 MCG/1 ML INJ SUB-Q SCH ×3 (06:20→21:07)
[2019-05-10] MEDS: ENOXAPARIN 40 MG/0.4 ML INJ SUB-Q SCH (08:17)
[2019-05-10] MEDS: predniSONE 10 MG TAB PO SCH (08:17)
[2019-05-10] MEDS: busPIRone 10 MG TAB PO SCH ×2 (08:18→21:06)
[2019-05-10] MEDS: guaiFENesin ER 600 MG TAB PO SCH ×2 (08:18→21:06)
[2019-05-10] MEDS: PANTOPRAZOLE 40 MG TAB PO SCH ×2 (08:18→21:06)
[2019-05-10] MEDS: DULoxetine 30 MG CAP PO SCH (08:18)
[2019-05-10 08:19] LABS: BUN/Creatinine Ratio 60; Blood Urea Nitrogen 18 mg/dL (7-17); Calcium 9.1 mg/dL (8.4-10.2); Hemolysis Index 6
[2019-05-10] MEDS: IPRATROPIUM/ALBUTEROL SULFATE 3 ML AMPUL.NEB IH SCH ×3 (09:13→19:36)
--- NOTE | 2019-05-10 09:14 | Progress Note ---
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 She was previously discharged from the hospital in March after a complicated course in which she underwent a sigmoid resection with a colovaginal fistula takedown complicated by right ureteral injury. She underwent wound VAC placed adjacent along with IV antibiotics and after being discharged home noted that the wound VAC was not working well causing increased drainage and increased abdominal pain. 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 Plan is to treat with bowel rest and TPN with allowable sips and chips for taking meds. She developed leukocytosis and infectious disease was consulted which agreed with continuing levofloxacin and metronidazole. Also concern for possible cellulitis versus Gonzalez rotation at the wound VAC site. She also developed a UTI which was treated. Leukocytosis has improved with antibiotic and is almost normalized. Patient was seen by therapy and felt to be a good rehabilitation candidate. After she was medically stabilized she was transferred for further rehabilitation. Interval History Patient is participating in therapy and making reasonable progress. Taking rest breaks as needed. +BM. Denies pain, palpitations, dyspnea, cough, N/V, or joint pain. Attempting to find SNF placement for her. Awaiting callback from urology concerning removal of ureteral stent, at this point she will be discharged next week and can follow-up as an outpatient for removal of the stent. EC Fistula: Wound VAC. Monitoring amount of output hopefully this will slow down. Follow up in wound clinic weekly No nausea today, better with zofran. No vomiting. Dehydration: Continue IV fluids as needed. COPD: No respiratory distress. Hypertension: BP in good range, slightly on the lower side Hypoglycemia: Patient has had several episodes of hypoglycemia. Usually occurs in the morning, none today All records, vitals, labs and medications were reviewed. No other issues per patient, nursing or therapy. Objective - Exam Narrative Exam: MUSCULOSKELETAL SPECIALTY EXAM CONSTITUTIONAL: Well developed, well nourished, appropriately groomed RESPIRATORY: Clear to auscultation bilaterally, no increased work of breathing CARDIOVASCULAR: Regular Rate/ Rhythm, no swelling, edema or tenderness in BUE or BLE. Pulses palpable in all extremities. All extremities warm. GI: + bowel sounds, soft, NTTP, nondistended. Abd wound with wound vac, increased output. INTEGUMENTARY: Normal, no lesion, rash, masses or bruising noted in extremities. MUSCULOSKELETAL: BUE and BLE normal without defect, crepitus, subluxation, effusion, arthritic ch anges or TTP. BUE 4/5, good ROM, with normal tone. BLE 4/5 good ROM, with normal tone NEURO: CN 2-12 grossly intact. Sensation intact in all extremities. No tremor noted in 4 extremities. POSTURE and GAIT: Sitting posture good. Balance appears reasonable. Gait ambulating with a rolling walker, no loss of balance but does have some give way weakness of the hip at times.. PSYCH: Alert, oriented x3, affect appears normal. Insight appears intact. - Constitutional Vitals: Vital Signs - 12hr 05/09/19 05/09/19 05/10/19 21:37 22:00 01:10 Temperature Pulse Rate Respiratory 17 17 Rate Respiratory 17 Rate [Abdomen] Blood Pressure O2 Sat by Pulse Oximetry 05/10/19 05/10/19 07:49 09:12 Temperature 97.9 F Pulse Rate 98 H Respiratory 18 Rate Respiratory Rate [Abdomen] Blood Pressure 95/60 O2 Sat by Pulse 99 100 Oximetry - Allied health notes Allied health notes reviewed: nursing, PT, OT FIMS assessment as documented by PT/OT/ST: Locomotion- walk/wheelchair Ambulation Distance 68 - Labs CBC & Chem 7: 05/07/19 06:51 05/10/19 07:20 Labs: Laboratory Results - last 72 hr 05/07/19 05/07/19 05/08/19 11:36 18:11 00:06 Sodium Potassium Chloride Carbon Dioxide Anion Gap BUN Creatinine Estimated GFR BUN/Creatinine Ratio Glucose POC Glucose 70 146 H 229 H Calcium Phosphorus Magnesium Triglycerides 05/08/19 05/08/19 05/08/19 06:14 06:49 11:40 Sodium 143 Potassium 3.9 Chloride 105.3 Carbon Dioxide 24 Anion Gap 18 BUN 14 Creatinine 0.3 L Estimated GFR > 60 BUN/Creatinine Ratio 47 Glucose 143 H POC Glucose 156 H 77 Calcium 8.7 Phosphorus 3.90 Magnesium 1.80 Triglycerides 05/08/19 05/09/19 05/09/19 17:54 00:43 06:00 Sodium 143 Potassium 4.1 Chloride 103.8 Carbon Dioxide 29 Anion Gap 14 BUN 15 Creatinine 0.3 L Estimated GFR > 60 BUN/Creatinine Ratio 50 Glucose 99 POC Glucose 119 H 233 H Calcium 8.9 Phosphorus 4.30 Magnesium 1.80 Triglycerides 68 05/09/19 05/09/19 05/09/19 06:29 11:58 17:41 Sodium Potassium Chloride Carbon Dioxide Anion Gap BUN Creatinine Estimated GFR BUN/Creatinine Ratio Glucose POC Glucose 123 H 79 135 H Calcium Phosphorus Magnesium Triglycerides 05/10/19 05/10/19 05/10/19 00:51 06:15 07:20 Sodium 142 Potassium 4.0 Chloride 99.6 Carbon Dioxide 27 Anion Gap 19 BUN 18 H Creatinine 0.3 L Estimated GFR > 60 BUN/Creatinine Ratio 60 Glucose 67 POC Glucose 169 H 89 Calcium 9.1 Phosphorus 3.90 Magnesium 1.80 Triglycerides Assessment and Plan Enterocutaneous fistula with wound VAC: Maintain wound VAC, monitor drain output, continue TPN with sips and chips with meds. Monitor for resolution of the leukocytosis or need for further antibiotics. Hypertension: Continue medications and adjust as needed for normotension. Hold for hypotension. COPD with acute on chronic respiratory failure and hypoxia: Continue nebulizer treatments. Monitor for exacerbation. Hypoglycemia: Intermittent, typically in the morning. Resolves with D50. Obstructive sleep apnea: Continue CPAP. Follow up with lost charge card clerk after discharge. Depression: Continue Cymbalta, monitor for improvement Anxiety: BuSpar, monitor for improvement Mild Pulmonary hypertension: As noted on prior echocardiogram. Apparently prior cardiomyopathy also seen on echocardiogram has resolved per review of cardiology notes Constipation: Continue medications monitor for regular bowel movements. Protein calorie malnutrition: Continue TPN with that replacement, dietitian consult. Monitor prealbumin. Anemia chronic disease: Continue to monitor, transfuse for hemoglobin less than 7. Dehydration: NS IVF, monitor Nausea: medications available, has been a problem since starting TPN Ureteral stent placed for transection of ureter, follow-up with urology after discharge next week for removal. ADL dysfunction: OT will work on improving ability to perform ADLs (including assistive devices) to increase independence and decrease caregiver burden and improve functional transfers and mobility training. Difficulty walking: PT will work on gait training and proper use of assistive devices and advance as appropriate to use of stairs and outside ambulation on uneven surfaces. Unsteadiness on feet: PT will work on improving static and dynamic sitting and standing balance as well as proper use of assistive devices to decrease risk of falls. Abnormality of gait: PT will work to improve safety and efficiency of gait through neuromotor training and gait training along with instruction on proper use of assistive devices. Muscle weakness: PT & OT will work on strengthening exercises to improve functional strength including mixture of closed and open kinetic chain exercises. Debility: PT & OT will work on improving overall functional status to improve participation with ADLs, mobility and social involvement. Fatigue: PT & OT will work on improving endurance through aerobic exercises and therapeutic activity while monitoring patients tolerance for activity and vital signs as needed. DVT ppx: Lovenox Pain: Continue physical modalities in therapy and pain medications as needed to achieve functional pain control. Sleep: Monitor and address as needed. Bowel: Monitor and address as needed. Appetite: Monitor and address as needed. Discharge planning: Pending therapy progress and care plan meeting. Will continue discussion with therapy team, SW, patient and family. Plan to discharge on May 13. Family and patient are considering going to shelter facility versus home with home health. Due to medical complexity she may be safer at a shelter facility. Have discussed this with both the patient as well as her and they will give us decision early next week. Restrictions/ Precautions: Falls WB status: FWB Functional Hx: ADLs: Independent Cognition: Independent Mobility: rollator MOD I Barriers to Discharge: Decreased mobility and ability to perform self care, balance deficits, weakness Estimated Length of Stay: 1418 days Discharge Destination: Home with family
[2019-05-10] MEDS: ONDANSETRON 4 MG/2 ML INJ IV PRN (11:00)
[2019-05-10] MEDS ORDERED: TOTAL PARENTERAL NUTRITION 1,560 ML IV SCH (20:00)
[2019-05-10] MEDS ORDERED: FAT EMULSIONS 20% 250 ML IV SCH (20:00)
[2019-05-10] MEDS: oxyCODONE /ACETAMINOPHEN 5-325MG TAB PO PRN (20:28)
[2019-05-10] MEDS: SODIUM CHLORIDE 0.9% 1000 ML 1,000 ML IV SCH (20:32)
[2019-05-10] MEDS: SENNOSIDES 8.6 MG TAB PO SCH (21:06)
[2019-05-10] MEDS: SIMETHICONE 80 MG CHEW TAB PO PRN (21:06)
[2019-05-10] MEDS: MONTELUKAST 10 MG TAB PO SCH (21:07)
[2019-05-11] MEDS: OCTREOTIDE 100 MCG/1 ML INJ SUB-Q SCH ×3 (05:29→22:12)
[2019-05-11] MEDS: SIMETHICONE 80 MG CHEW TAB PO PRN ×2 (05:31→22:12)
[2019-05-11] MEDS: IPRATROPIUM/ALBUTEROL SULFATE 3 ML AMPUL.NEB IH SCH ×3 (07:39→21:12)
[2019-05-11 08:12] LABS: BUN/Creatinine Ratio 45; Blood Urea Nitrogen 18 mg/dL (7-17); Calcium 8.8 mg/dL (8.4-10.2); Hemolysis Index 39
[2019-05-11] MEDS: PANTOPRAZOLE 40 MG TAB PO SCH ×2 (09:36→22:13)
[2019-05-11] MEDS: predniSONE 10 MG TAB PO SCH (09:36)
[2019-05-11] MEDS: DULoxetine 30 MG CAP PO SCH (09:36)
[2019-05-11] MEDS: guaiFENesin ER 600 MG TAB PO SCH ×2 (09:37→22:12)
[2019-05-11] MEDS: busPIRone 10 MG TAB PO SCH ×2 (09:37→22:13)
[2019-05-11] MEDS: SENNOSIDES 8.6 MG TAB PO SCH ×2 (09:38→22:13)
[2019-05-11] MEDS: ENOXAPARIN 40 MG/0.4 ML INJ SUB-Q SCH (09:39)
[2019-05-11] MEDS: SODIUM CHLORIDE 0.9% 1000 ML 1,000 ML IV SCH (11:10)
--- NOTE | 2019-05-11 15:06 | Progress Note ---
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 She was previously discharged from the hospital in March after a complicated course in which she underwent a sigmoid resection with a colovaginal fistula takedown complicated by right ureteral injury. She underwent wound VAC placed adjacent along with IV antibiotics and after being discharged home noted that the wound VAC was not working well causing increased drainage and increased abdominal pain. 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 Plan is to treat with bowel rest and TPN with allowable sips and chips for taking meds. She developed leukocytosis and infectious disease was consulted which agreed with continuing levofloxacin and metronidazole. Also concern for possible cellulitis versus Gonzalez rotation at the wound VAC site. She also developed a UTI which was treated. Leukocytosis has improved with antibiotic and is almost normalized. Patient was seen by therapy and felt to be a good rehabilitation candidate. After she was medically stabilized she was transferred for further rehabilitation. Interval History Patient is participating in therapy and making reasonable progress. Taking rest breaks as needed. +BM. Denies pain, palpitations, dyspnea, cough, N/V, or joint pain. Attempting to find SNF placement for her. Awaiting callback from urology concerning removal of ureteral stent, at this point she will be discharged next week and can follow-up as an outpatient for removal of the stent. EC Fistula: Wound VAC is currently off. She is being trialed without it to see what kind of drainage she continues to have when it is not connected. Hopefully we will be able to remain off the wound VAC which will make discharge posterior easier for her. Monitoring amount of output hopefully this will slow down. Follow up in wound clinic weekly No nausea today No vomiting. Dehydration: Continue IV fluids as needed. COPD: No respiratory distress. Hypertension: BP in good range, slightly on the lower side Hypoglycemia: Patient has had several episodes of hypoglycemia. Usually occurs in the morning, none today All records, vitals, labs and medications were reviewed. No other issues per patient, nursing or therapy. Objective - Exam Narrative Exam: MUSCULOSKELETAL SPECIALTY EXAM CONSTITUTIONAL: Well developed, well nourished, appropriately groomed RESPIRATORY: Clear to auscultation bilaterally, no increased work of breathing CARDIOVASCULAR: Regular Rate/ Rhythm, no swelling, edema or tenderness in BUE or BLE. Pulses palpable in all extremities. All extremities warm. GI: + bowel sounds, soft, NTTP, nondistended. Abd wound with dressing. INTEGUMENTARY: Normal, no lesion, rash, masses or bruising noted in extremities. MUSCULOSKELETAL: BUE and BLE normal without defect, crepitus, subluxation, effusion, arthritic changes or TTP. BUE 4/5, good ROM, with normal tone. BLE 4/5 good ROM, with normal tone NEURO: CN 2-12 grossly intact. Sensation intact in all extremities. No tremor noted in 4 extremities. POSTURE and GAIT: Sitting posture good. Balance appears reasonable. Gait ambulating with a rolling walker, no loss of balance but does have some give way weakness of the hip at times.. PSYCH: Alert, oriented x3, affect appears normal. Insight appears intact. - Constitutional Vitals: Vital Signs - 12hr 05/11/19 05/11/19 05/11/19 07:39 07:41 07:47 Temperature 98.5 F Pulse Rate 95 H Pulse Rate [ 95 H Anterior Bilateral Throughout] Respiratory 18 Rate Respiratory 18 Rate [Anterior Bilateral Throughout] Blood Pressure 96/62 O2 Sat by Pulse 100 100 Oximetry - Allied health notes Allied health notes reviewed: nursing, PT, OT FIMS assessment as documented by PT/OT/ST: Locomotion- walk/wheelchair Ambulation Distance 68 - Labs CBC & Chem 7: 05/07/19 06:51 05/11/19 07:43 Labs: Laboratory Results - last 72 hr 05/08/19 05/09/19 05/09/19 17:54 00:43 06:00 Sodium 143 Potassium 4.1 Chloride 103.8 Carbon Dioxide 29 Anion Gap 14 BUN 15 Creatinine 0.3 L Estimated GFR > 60 BUN/Creatinine Ratio 50 Glucose 99 POC Glucose 119 H 233 H Calcium 8.9 Phosphorus 4.30 Magnesium 1.80 Triglycerides 68 05/09/19 05/09/19 05/09/19 06:29 11:58 17:41 Sodium Potassium Chloride Carbon Dioxide Anion Gap BUN Creatinine Estimated GFR BUN/Creatinine Ratio Glucose POC Glucose 123 H 79 135 H Calcium Phosphorus Magnesium Triglycerides 05/10/19 05/10/19 05/10/19 00:51 06:15 07:20 Sodium 142 Potassium 4.0 Chloride 99.6 Carbon Dioxide 27 Anion Gap 19 BUN 18 H Creatinine 0.3 L Estimated GFR > 60 BUN/Creatinine Ratio 60 Glucose 67 POC Glucose 169 H 89 Calcium 9.1 Phosphorus 3.90 Magnesium 1.80 Triglycerides 05/10/19 05/10/19 05/11/19 12:10 17:30 00:39 Sodium Potassium Chloride Carbon Dioxide Anion Gap BUN Creatinine Estimated GFR BUN/Creatinine Ratio Glucose POC Glucose 122 H 80 186 H Calcium Phosphorus Magnesium Triglycerides 05/11/19 05/11/19 05/11/19 06:32 07:43 11:36 Sodium 140 Potassium 4.4 Chloride 99.0 Carbon Dioxide 28 Anion Gap 17 BUN 18 H Creatinine 0.4 L Estimated GFR > 60 BUN/Creatinine Ratio 45 Glucose 138 H POC Glucose 138 H 177 H Calcium 8.8 Phosphorus 4.00 Magnesium 1.80 Triglycerides Assessment and Plan Enterocutaneous fistula with wound VAC removed now: Maintain dressing, monitor output, continue TPN with sips and chips with meds. Monitor for resolution of the leukocytosis or need for further antibiotics. Hypertension: Continue medications and adjust as needed for normotension. Hold for hypotension. COPD with acute on chronic respiratory failure and hypoxia: Continue nebulizer treatments. Monitor for exacerbation. Hypoglycemia: Intermittent, typically in the morning. Resolves with D50. Obstructive sleep apnea: Continue CPAP. Follow up with hardware supplies sales representative after discharge. Family requesting appointment with hardware supplies sales representative in order to obtain prescription for new CPAP. Depression: Continue Cymbalta, monitor for improvement Anxiety: BuSpar, monitor for improvement Mild Pulmonary hypertension: As noted on prior echocardiogram. Apparently prior cardiomyopathy also seen on echocardiogram has resolved per review of cardiology notes Constipation: Continue medications monitor for regular bowel movements. Protein calorie malnutrition: Continue TPN with that replacement, dietitian consult. Monitor prealbumin. Anemia chronic disease: Continue to monitor, transfuse for hemoglobin less than 7. Dehydration: NS IVF, monitor Nausea: medications available, has been a problem since starting TPN Ureteral stent placed for transection of ureter, follow-up with urology after discharge next week for removal. ADL dysfunction: OT will work on improving ability to perform ADLs (including assistive devices) to increase independence and decrease caregiver burden and improve functional transfers and mobility training. Difficulty walking: PT will work on gait training and proper use of assistive devices and advance as appropriate to use of stairs and outside ambulation on uneven surfaces. Unsteadiness on feet: PT will work on improving static and dynamic sitting and standing balance as well as proper use of assistive devices to decrease risk of falls. Abnormality of gait: PT will work to improve safety and efficiency of gait through neuromotor training and gait training along with instruction on proper use of assistive devices. Muscle weakness: PT & OT will work on strengthening exercises to improve functional strength including mixture of closed and open kinetic chain exercises. Debility: PT & OT will work on improving overall functional status to improve participation with ADLs, mobility and social involvement. Fatigue: PT & OT will work on improving endurance through aerobic exercises and therapeutic activity while monitoring patients tolerance for activity and vital signs as needed. DVT ppx: Lovenox Pain: Continue physical modalities in therapy and pain medications as needed to achieve functional pain control. Sleep: Monitor and address as needed. Bowel: Monitor and address as needed. Appetite: Monitor and address as needed. Discharge planning: Pending therapy progress and care plan meeting. Will continue discussion with therapy team, SW, patient and family. Plan to discharge on May 13. Family and patient are considering going to long term facility versus home with home health. Due to medical complexity she may be safer at a long term facility. Have discussed this with both the patient as well as her and they will give us decision early next week. Restrictions/ Precautions: Falls WB status: FWB Functional Hx: ADLs: Independent Cognition: Independent Mobility: rollator MOD I Barriers to Discharge: Decreased mobility and ability to perform self care, balance deficits, weakness Estimated Length of Stay: 1418 days Discharge Destination: Home with family
[2019-05-11] MEDS ORDERED: TOTAL PARENTERAL NUTRITION 1,560 ML IV SCH (20:00)
[2019-05-11] MEDS: oxyCODONE /ACETAMINOPHEN 5-325MG TAB PO PRN (22:12)
[2019-05-11] MEDS: MONTELUKAST 10 MG TAB PO SCH (22:13)
[2019-05-12] MEDS: OCTREOTIDE 100 MCG/1 ML INJ SUB-Q SCH ×3 (06:26→22:30)
[2019-05-12] MEDS: IPRATROPIUM/ALBUTEROL SULFATE 3 ML AMPUL.NEB IH SCH ×3 (07:45→21:55)
[2019-05-12] MEDS: PANTOPRAZOLE 40 MG TAB PO SCH ×2 (08:18→22:19)
[2019-05-12] MEDS: busPIRone 10 MG TAB PO SCH ×2 (08:18→22:19)
[2019-05-12] MEDS: SENNOSIDES 8.6 MG TAB PO SCH ×2 (08:18→22:18)
[2019-05-12] MEDS: guaiFENesin ER 600 MG TAB PO SCH ×2 (08:18→22:31)
[2019-05-12] MEDS: predniSONE 10 MG TAB PO SCH (08:18)
[2019-05-12] MEDS: ENOXAPARIN 40 MG/0.4 ML INJ SUB-Q SCH (08:19)
[2019-05-12] MEDS: DULoxetine 30 MG CAP PO SCH (08:19)
[2019-05-12] MEDS: SODIUM CHLORIDE 0.9% 1000 ML 1,000 ML IV SCH ×4 (08:19→22:40)
[2019-05-12 08:25] LABS: Alanine Aminotransferase 12 units/L (7-56); Albumin 3.1 g/dL (3.9-5); BUN/Creatinine Ratio 53; Blood Urea Nitrogen 16 mg/dL (7-17); Calcium 8.7 mg/dL (8.4-10.2); Hemolysis Index 2
[2019-05-12] MEDS: oxyCODONE /ACETAMINOPHEN 5-325MG TAB PO PRN ×2 (13:06→22:37)
--- NOTE | 2019-05-12 16:15 | Progress Note ---
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 She was previously discharged from the hospital in March after a complicated course in which she underwent a sigmoid resection with a colovaginal fistula takedown complicated by right ureteral injury. She underwent wound VAC placed adjacent along with IV antibiotics and after being discharged home noted that the wound VAC was not working well causing increased drainage and increased abdominal pain. 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 Plan is to treat with bowel rest and TPN with allowable sips and chips for taking meds. She developed leukocytosis and infectious disease was consulted which agreed with continuing levofloxacin and metronidazole. Also concern for possible cellulitis versus Gonzalez rotation at the wound VAC site. She also developed a UTI which was treated. Leukocytosis has improved with antibiotic and is almost normalized. Patient was seen by therapy and felt to be a good rehabilitation candidate. After she was medically stabilized she was transferred for further rehabilitation. Interval History Patient is participating in therapy and making reasonable progress. Taking rest breaks as needed. +BM. Denies pain, palpitations, dyspnea, cough, N/V, or joint pain. Attempting to find SNF placement for her. Follow-up as an outpatient for removal of the ureteral stent. EC Fistula: Wound VAC is currently off. She is being trialed without it to see what kind of drainage she continues to have when it is not connected. Hopefully we will be able to remain off the wound VAC which will make discharge process e asier for her. Monitoring amount of output hopefully this will slow down. Follow up in wound clinic weekly No nausea today No vomiting. Dehydration: Continue IV fluids as needed. COPD: No respiratory distress. Hypertension: BP in good range, slightly on the lower side Hypoglycemia: Patient has had several episodes of hypoglycemia. Usually occurs in the morning, none today so far Continues on TPN, n.p.o. due to fistula. Continue daily lab checks for adjustment of TPN formula. Discussed with patient that the primary location I was looking at for fdc facility placement does not accept her particular insurance. Unfortunately there are few facilities that would be able to provide the higher level of care that she is needing with her TPN, close lab monitoring, frequent hypoglycemia, and possibility of going back to a wound VAC. Previously she was discharged home with the TPN, fistula and with home health, however they also were unable to appropriately manage her condition and she ended up getting worse and required readmission to the hospital. After discussing with her, I would prefer to be able to keep her here where we can closely monitor her, ensure that her medications, labs, TPN are being properly provided and continue to improve her functioning from a therapy standpoint in order to possibly get her discharged home in a safe manner. There is also a possibility if her fistula is truly closing up as we are hoping that she may also be able to revert to oral intake of liquids which would be reasonable to stop the TPN at that point. Obviously this will be deferred to the surgeon as far as when to restart oral intake. Also discussed the possibility of her going to the [facility] where I know of a couple of facilities that can appropriately monitor the patient and administer the TPN however due to the necessity of follow-up with the surgeon this would become problematic because it is a [address] way (I drive it every day) and this would take away from the facilities ability to provide the care and therapy that she would need to continue improving. Will contact insurance company to discuss further. All records, vitals, labs and medications were reviewed. No other issues per patient, nursing or therapy. Objective - Exam Narrative Exam: MUSCULOSKELETAL SPECIALTY EXAM CONSTITUTIONAL: Well developed, well nourished, appropriately groomed RESPIRATORY: Clear to auscultation bilaterally, no increased work of breathing CARDIOVASCULAR: Regular Rate/ Rhythm, no swelling, edema or tenderness in BUE or BLE. Pulses palpable in all extremities. All extremities warm. GI: + bowel sounds, soft, NTTP, nondistended. Abd wound with dressing. INTEGUMENTARY: Normal, no lesion, rash, masses or bruising noted in extremities. MUSCULOSKELETAL: BUE and BLE normal without defect, crepitus, subluxation, effusion, arthritic changes or TTP. BUE 4/5, good ROM, with normal tone. BLE 4/5 good ROM, with normal tone NEURO: CN 2-12 grossly intact. Sensation intact in all extremities. No tremor noted in 4 extremities. POSTURE and GAIT: Sitting posture good. Balance appears reasonable. Gait ambulating with a rolling walker, no loss of balance but does have some give way weakness of the hip at times. Endurance is improving. PSYCH: Alert, oriented x3, affect appears normal. Insight appears intact. - Constitutional Vitals: Vital Signs - 12hr 05/12/19 05/12/19 05/12/19 07:06 07:45 07:56 Temperature 97.6 F Pulse Rate 96 H Pulse Rate [ 95 H Anterior Bilateral Throughout] Respiratory 20 Rate Respiratory 20 Rate [Anterior Bilateral Throughout] Blood Pressure 106/65 O2 Sat by Pulse 99 100 Oximetry 05/12/19 13:57 Temperature Pulse Rate Pulse Rate [ 108 H Anterior Bilateral Throughout] Respiratory Rate Respiratory 20 Rate [Anterior Bilateral Throughout] Blood Pressure O2 Sat by Pulse Oximetry - Allied health notes Allied health notes reviewed: nursing, PT, OT FIMS assessment as documented by PT/OT/ST: Locomotion- walk/wheelchair Ambulation Distance 68 - Labs CBC & Chem 7: 05/13/19 06:37 05/13/19 06:37 Labs: Laboratory Results - last 72 hr 05/09/19 05/10/19 05/10/19 17:41 00:51 06:15 Sodium Potassium Chloride Carbon Dioxide Anion Gap BUN Creatinine Estimated GFR BUN/Creatinine Ratio Glucose POC Glucose 135 H 169 H 89 Calcium Phosphorus Magnesium Total Bilirubin AST ALT Alkaline Phosphatase Total Protein Albumin Albumin/Globulin Ratio 05/10/19 05/10/19 05/10/19 07:20 12:10 17:30 Sodium 142 Potassium 4.0 Chloride 99.6 Carbon Dioxide 27 Anion Gap 19 BUN 18 H Creatinine 0.3 L Estimated GFR > 60 BUN/Creatinine Ratio 60 Glucose 67 POC Glucose 122 H 80 Calcium 9.1 Phosphorus 3.90 Magnesium 1.80 Total Bilirubin AST ALT Alkaline Phosphatase Total Protein Albumin Albumin/Globulin Ratio 05/11/19 05/11/19 05/11/19 00:39 06:32 07:43 Sodium 140 Potassium 4.4 Chloride 99.0 Carbon Dioxide 28 Anion Gap 17 BUN 18 H Creatinine 0.4 L Estimated GFR > 60 BUN/Creatinine Ratio 45 Glucose 138 H POC Glucose 186 H 138 H Calcium 8.8 Phosphorus 4.00 Magnesium 1.80 Total Bilirubin AST ALT Alkaline Phosphatase Total Protein Albumin Albumin/Globulin Ratio 05/11/19 05/11/19 05/12/19 11:36 17:39 06:24 Sodium Potassium Chloride Carbon Dioxide Anion Gap BUN Creatinine Estimated GFR BUN/Creatinine Ratio Glucose POC Glucose 177 H 150 H 112 H Calcium Phosphorus Magnesium Total Bilirubin AST ALT Alkaline Phosphatase Total Protein Albumin Albumin/Globulin Ratio 05/12/19 05/12/19 07:30 11:50 Sodium 142 Potassium 4.2 Chloride 102.3 Carbon Dioxide 28 Anion Gap 16 BUN 16 Creatinine 0.3 L Estimated GFR > 60 BUN/Creatinine Ratio 53 Glucose 122 H POC Glucose 96 Calcium 8.7 Phosphorus 3.80 Magnesium 1.70 Total Bilirubin < 0.20 AST 11 ALT 12 Alkaline Phosphatase 46 Total Protein 5.4 L Albumin 3.1 L Albumin/Globulin Ratio 1.3 Assessment and Plan Enterocutaneous fistula with wound VAC removed now: Maintain dressing, monitor o utput, continue TPN with sips and chips with meds. Monitor for resolution of the leukocytosis or need for further antibiotics. Hypertension: Continue medications and adjust as needed for normotension. Hold for hypotension. COPD with acute on chronic respiratory failure and hypoxia: Continue nebulizer treatments. Monitor for exacerbation. Hypoglycemia: Intermittent, typically in the morning. Resolves with D50. Obstructive sleep apnea: Continue CPAP. Follow up with block engraver after d ischarge. Depression: Continue Cymbalta, monitor for improvement Anxiety: BuSpar, monitor for improvement Mild Pulmonary hypertension: As noted on prior echocardiogram. Apparently prior cardiomyopathy also seen on echocardiogram has resolved per review of cardiology notes Constipation: Continue medications monitor for regular bowel movements. Protein calorie malnutrition: Continue TPN with fat replacement, dietitian consult. Monitor prealbumin. Anemia chronic disease: Continue to monitor, transfuse for hemoglobin less than 7. Dehydration: NS IVF, monitor Nausea: medications available, has been a problem since starting TPN Ureteral stent placed for transection of ureter, follow-up with urology after discharge for removal. Was able to discuss with Dr. Mccloud, she can follow-up up to 4 months after placement. ADL dysfunction: OT will work on improving ability to perform ADLs (including assistive devices) to increase independence and decrease caregiver burden and improve functional transfers and mobility training. Difficulty walking: PT will work on gait training and proper use of assistive devices and advance as appropriate to use of stairs and outside ambulation on uneven surfaces. Unsteadiness on feet: PT will work on improving static and dynamic sitting and standing balance as well as proper use of assistive devices to decrease risk of falls. Abnormality of gait: PT will work to improve safety and efficiency of gait through neuromotor training and gait training along with instruction on proper use of assistive devices. Muscle weakness: PT & OT will work on strengthening exercises to improve functional strength including mixture of closed and open kinetic chain exercises. Debility: PT & OT will work on improving overall functional status to improve participation with ADLs, mobility and social involvement. Fatigue: PT & OT will work on improving endurance through aerobic exercises and therapeutic activity while monitoring patients tolerance for activity and vital signs as needed. DVT ppx: Lovenox Pain: Continue physical modalities in therapy and pain medications as needed to achieve functional pain control. Sleep: Monitor and address as needed. Bowel: Monitor and address as needed. Appetite: Monitor and address as needed. Discharge planning: Pending therapy progress and care plan meeting. Will continue discussion with therapy team, SW, patient and family. Plan to discharge on May 13. Family and patient are considering going to fdc facility versus home with home health. Due to medical complexity she may be safer at a fdc facility. Restrictions/ Precautions: Falls WB status: FWB Functional Hx: ADLs: Independent Cognition: Independent Mobility: rollator MOD I Barriers to Discharge: Decreased mobility and ability to perform self care, balance deficits, weakness Estimated Length of Stay: 1418 days Discharge Destination: Home with family
[2019-05-12] MEDS ORDERED: TOTAL PARENTERAL NUTRITION 1,560 ML IV SCH (20:00)
[2019-05-12] MEDS: MONTELUKAST 10 MG TAB PO SCH (22:19)
[2019-05-12] MEDS: DEXTROSE 50% IN WATER (25GM) 50 ML SYRINGE IV PRN (22:22)
[2019-05-12] MEDS: SIMETHICONE 80 MG CHEW TAB PO PRN (22:37)
[2019-05-13] MEDS: OCTREOTIDE 100 MCG/1 ML INJ SUB-Q SCH ×3 (06:04→21:23)
[2019-05-13 06:59] LABS: Hematocrit 26.9 % (30.3-42.9); Hemoglobin 8.6 gm/dl (10.1-14.3); Mean Corpuscular HGB Conc 32 % (30-34); Mean Corpuscular Volume 83 fl (79-97); Platelet Count 352 K/mm3 (140-440); Red Blood Count 3.25 M/mm3 (3.65-5.03); Red Cell Distribution Width 16.4 % (13.2-15.2)
[2019-05-13 07:18] LABS: BUN/Creatinine Ratio 28; Blood Urea Nitrogen 14 mg/dL (7-17); Calcium 8.9 mg/dL (8.4-10.2); Hemolysis Index 2
[2019-05-13] MEDS: predniSONE 10 MG TAB PO SCH (09:09)
[2019-05-13] MEDS: PANTOPRAZOLE 40 MG TAB PO SCH ×2 (09:09→21:24)
[2019-05-13] MEDS: guaiFENesin ER 600 MG TAB PO SCH ×2 (09:09→21:23)
[2019-05-13] MEDS: DULoxetine 30 MG CAP PO SCH (09:09)
[2019-05-13] MEDS: busPIRone 10 MG TAB PO SCH ×2 (09:09→21:24)
[2019-05-13] MEDS: SENNOSIDES 8.6 MG TAB PO SCH ×2 (09:10→21:24)
[2019-05-13] MEDS: ENOXAPARIN 40 MG/0.4 ML INJ SUB-Q SCH (09:10)
[2019-05-13] MEDS: oxyCODONE /ACETAMINOPHEN 5-325MG TAB PO PRN ×2 (09:21→21:31)
[2019-05-13] MEDS: SIMETHICONE 80 MG CHEW TAB PO PRN (09:22)
[2019-05-13] MEDS: ALBUTEROL 2.5 MG/3 ML NEBU IH PRN ×2 (09:25→14:50)
[2019-05-13] MEDS: IPRATROPIUM/ALBUTEROL SULFATE 3 ML AMPUL.NEB IH SCH ×2 (09:54→20:27)
--- NOTE | 2019-05-13 16:26 | Progress Note ---
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 She was previously discharged from the hospital in March after a complicated course in which she underwent a sigmoid resection with a colovaginal fistula takedown complicated by right ureteral injury. She underwent wound VAC placed adjacent along with IV antibiotics and after being discharged home noted that the wound VAC was not working well causing increased drainage and increased abdominal pain. 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 Plan is to treat with bowel rest and TPN with allowable sips and chips for taking meds. She developed leukocytosis and infectious disease was consulted which agreed with continuing levofloxacin and metronidazole. Also concern for possible cellulitis versus Gonzalez rotation at the wound VAC site. She also developed a UTI which was treated. Leukocytosis has improved with antibiotic and is almost normalized. Patient was seen by therapy and felt to be a good rehabilitation candidate. After she was medically stabilized she was transferred for further rehabilitation. Interval History Patient is participating in therapy and making reasonable progress. Taking rest breaks as needed. +BM. Denies pain, palpitations, dyspnea, cough, N/V, or joint pain. Attempting to find SNF placement for her. I was able to discuss with the insurance company this morning the prospect of the patient staying longer than her current discharge date of tomorrow. They seem to think that the idea is sound and would like to not have her bounce back and forth to the hospital if possible. The discussion I had with her insurance company follows my discussion with her the previous day as noted below. Insurance company asked that we submit updated notes on May 15 to see about an extension of time. Discussed with patient that the primary location I was looking at for jail facility placement does not accept her particular insurance. Unfortunately there are few facilities that would be able to provide the higher level of care that she is needing with her TPN, close lab monitoring, frequent hypoglycemia, and possibility of going back to a wound VAC. Previously she was discharged home with the TPN, fistula and with home health, however they also were unable to appropriately manage her condition and she ended up getting worse and required readmission to the hospital. After discussing with her, I would prefer to be able to keep her here where we can closely monitor her, ensure that her medications, labs, TPN are being properly provided and continue to improve her functioning from a therapy standpoint in order to possibly get her discharged home in a safe manner. There is also a possibility if her fistula is truly closing up as we are hoping that she may also be able to revert to oral intake of liquids which would be reasonable to stop the TPN at that point. Obviously this will be deferred to the surgeon as far as when to restart oral intake. Also discussed the possibility of her going to the [facility] where I know of a couple of facilities that can appropriately monitor the patient and administer the TPN however due to the necessity of follow-up with the surgeon this would become problematic because it is a [address] each way (I drive it every day) and this would take away from the facilities ability to provide the care and therapy that she would need to continue improving. Follow-up as an outpatient for removal of the ureteral stent. EC Fistula: Wound VAC is currently off. She is being trialed without it to see what kind of drainage she continues to have when it is not connected. Hopefully we will be able to remain off the wound VAC which will make discharge process easier for her. Monitoring amount of output hopefully this will slow down. Follow up in wound clinic No nausea today No vomiting. Dehydration: Continue IV fluids as needed. COPD: No respiratory distress. Hypertension: BP in good range, slightly on the lower side Hypoglycemia: Patient had hypoglycemia overnight, I was called first thing this morning due to a blood glucose reading of 500. I question this in the nursing staff did as well, they ordered a venous sample which was included with her regular labs and at that point the glucose had dropped to 300 range. Did not cover with insulin as the patient is not diabetic. She continued to slowly come down to approximately 100 later in the day. Patient was asymptomatic with the hyperglycemia. This is the first time that we have noticed this with her. We will continue to monitor, her glucose levels fluctuate frequently with the use of TPN. Continues on TPN, n.p.o. due to fistula. Continue daily lab checks for adjustment of TPN formula. Constipation: Continue Senokot. Surgeon does not necessarily want multiple bowel meds being used due to the fistula. Have discussed with the patient not to strain All records, vitals, labs and medications were reviewed. No other issues per patient, nursing or therapy. Patient was discussed today in team conference. She is making fairly decent pr ogress with therapy when it comes to ambulation. She is able to walk to the toilet with assistance however is often times unsteady and still has decreased endurance for activity. This is limiting her ability to ambulate more than short distances and would likely necessitate her taking rest breaks for some distances inside the household. We will continue to work with the patient to improve endurance, stability, balance, and functional ADLs so that she can return home in a safe manner. We will also to continue to watch for resolution of her EC fistula and hopefully be able to advance her diet to liquids if and when the surgeon deems it appropriate and safe to do so. This would allow us to avoid the issues that she previously experienced at home with utilizing TPN including hypoglycemic episodes as well as dehydration and would make for a much safer discharge. Objective - Exam Narrative Exam: MUSCULOSKELETAL SPECIALTY EXAM CONSTITUTIONAL: Well developed, well nourished, appropriately groomed RESPIRATORY: Clear to auscultation bilaterally, no increased work of breathing CARDIOVASCULAR: Regular Rate/ Rhythm, no swelling, edema or tenderness in BUE or BLE. All extremities warm. GI: + bowel sounds, soft, NTTP, nondistended. Abd wound with dressing. INTEGUMENTARY: Normal, no lesion, rash, masses or bruising noted in extremities. MUSCULOSKELETAL: BUE and BLE normal without defect, crepitus, subluxation, effusion, arthritic changes or TTP. BUE 4/5, good ROM, with normal tone. BLE 4/5 good ROM, with normal tone NEURO: CN 2-12 grossly intact. Sensation intact in all extremities. No tremor noted in 4 extremities. POSTURE and GAIT: Sitting posture good. Balance appears reasonable with some loss of balance at times when attempting to reach for items. Gait ambulating with a rolling walke r, no loss of balance but does have some give way weakness of the hip at times. Endurance is still a great limitation however is improving. PSYCH: Alert, oriented x3, affect appears normal. Insight appears intact. - Constitutional Vitals: Vital Signs - 12hr 05/13/19 05/13/19 05/13/19 08:00 09:25 09:35 Temperature 98.8 F Pulse Rate 92 H Pulse Rate [ 88 Anterior Bilateral Throughout] Respiratory 18 Rate Respiratory 20 Rate [Anterior Bilateral Throughout] Blood Pressure 98/58 [Left] O2 Sat by Pulse 93 100 Oximetry 05/13/19 14:50 Temperature Pulse Rate Pulse Rate [ 86 Anterior Bilateral Throughout] Respiratory Rate Respiratory 18 Rate [Anterior Bilateral Throughout] Blood Pressure [Left] O2 Sat by Pulse Oximetry - Allied health notes Allied health notes reviewed: nursing, PT, OT FIMS assessment as documented by PT/OT/ST: Locomotion- walk/wheelchair Ambulation Distance 68 - Labs CBC & Chem 7: 05/14/19 06:18 05/14/19 06:18 Labs: Laboratory Results - last 72 hr 05/10/19 05/11/19 05/11/19 17:30 00:39 06:32 WBC RBC Hgb Hct MCV MCH MCHC RDW Plt Count Sodium Potassium Chloride Carbon Dioxide Anion Gap BUN Creatinine Estimated GFR BUN/Creatinine Ratio Glucose POC Glucose 80 186 H 138 H Calcium Phosphorus Magnesium Total Bilirubin AST ALT Alkaline Phosphatase Total Protein Albumin Albumin/Globulin Ratio 05/11/19 05/11/19 05/11/19 07:43 11:36 17:39 WBC RBC Hgb Hct MCV MCH MCHC RDW Plt Count Sodium 140 Potassium 4.4 Chloride 99.0 Carbon Dioxide 28 Anion Gap 17 BUN 18 H Creatinine 0.4 L Estimated GFR > 60 BUN/Creatinine Ratio 45 Glucose 138 H POC Glucose 177 H 150 H Calcium 8.8 Phosphorus 4.00 Magnesium 1.80 Total Bilirubin AST ALT Alkaline Phosphatase Total Protein Albumin Albumin/Globulin Ratio 05/12/19 05/12/19 05/12/19 06:24 07:30 11:50 WBC RBC Hgb Hct MCV MCH MCHC RDW Plt Count Sodium 142 Potassium 4.2 Chloride 102.3 Carbon Dioxide 28 Anion Gap 16 BUN 16 Creatinine 0.3 L Estimated GFR > 60 BUN/Creatinine Ratio 53 Glucose 122 H POC Glucose 112 H 96 Calcium 8.7 Phosphorus 3.80 Magnesium 1.70 Total Bilirubin < 0.20 AST 11 ALT 12 Alkaline Phosphatase 46 Total Protein 5.4 L Albumin 3.1 L Albumin/Globulin Ratio 1.3 05/12/19 05/12/19 05/12/19 17:25 22:16 22:23 WBC RBC Hgb Hct MCV MCH MCHC RDW Plt Count Sodium Potassium Chloride Carbon Dioxide Anion Gap BUN Creatinine Estimated GFR BUN/Creatinine Ratio Glucose POC Glucose 121 H 61 L 55 L Calcium Phosphorus Magnesium Total Bilirubin AST ALT Alkaline Phosphatase Total Protein Albumin Albumin/Globulin Ratio 05/12/19 05/13/19 05/13/19 23:17 06:22 06:37 WBC 8.8 RBC 3.25 L Hgb 8.6 L Hct 26.9 L MCV 83 MCH 26 L MCHC 32 RDW 16.4 H Plt Count 352 Sodium Potassium Chloride Carbon Dioxide Anion Gap BUN Creatinine Estimated GFR BUN/Creatinine Ratio Glucose POC Glucose 163 H > 500 H Calcium Phosphorus Magnesium Total Bilirubin AST ALT Alkaline Phosphatase Total Protein Albumin Albumin/Globulin Ratio 05/13/19 05/13/19 05/13/19 06:37 06:37 08:44 WBC RBC Hgb Hct MCV MCH MCHC RDW Plt Count Sodium 139 Potassium 3.8 Chloride 97.3 L Carbon Dioxide 27 Anion Gap 19 BUN 14 Creatinine 0.5 L D Estimated GFR > 60 BUN/Creatinine Ratio 28 Glucose 315 H 370 H POC Glucose 101 Calcium 8.9 Phosphorus 4.10 Magnesium 1.70 Total Bilirubin AST ALT Alkaline Phosphatase Total Protein Albumin Albumin/Globulin Ratio 05/13/19 05/13/19 09:15 11:49 WBC RBC Hgb Hct MCV MCH MCHC RDW Plt Count Sodium Potassium Chloride Carbon Dioxide Anion Gap BUN Creatinine Estimated GFR BUN/Creatinine Ratio Glucose POC Glucose 77 98 Calcium Phosphorus Magnesium Total Bilirubin AST ALT Alkaline Phosphatase Total Protein Albumin Albumin/Globulin Ratio Assessment and Plan Enterocutaneous fistula with wound VAC removed now: Maintain dressing, monitor output, continue TPN with sips and chips with meds. Monitor for resolution of the leukocytosis or need for further antibiotics. Hypertension: Continue medications and adjust as needed for normotension. Hold for hypotension. COPD with acute on chronic respiratory failure and hypoxia: Continue nebulizer treatments. Monitor for exacerbation. Hypoglycemia: Intermittent, typically in the morning. Resolves with D50. Episode of hypoglycemia today, continue to monitor and adjust medications as needed. Obstructive sleep apnea: Continue CPAP. Follow up with business intelligence analyst after discharge. Depression: Continue Cymbalta, monitor for improvement Anxiety: BuSpar, monitor for improvement Mild Pulmonary hypertension: As noted on prior echocardiogram. Apparently prior cardiomyopathy also seen on echocardiogram has resolved per review of cardiology notes Constipation: Continue medications monitor for regular bowel movements. Protein calorie malnutrition: Continue TPN with fat replacement, dietitian consult. Monitor prealbumin, 0.087 at last check. Anemia chronic disease: Continue to monitor, transfuse for hemoglobin less than 7. Dehydration: NS IVF, monitor Nausea: medications available, has been a problem since starting TPN Ureteral stent placed for transection of ureter, follow-up with urology after discharge for removal. Was able to discuss with Dr. Mccloud, she can follow-up up to 4 months after placement. ADL dysfunction: OT will work on improving ability to perform ADLs (including assistive devices) to increase independence and decrease caregiver burden and improve functional transfers and mobility training. Difficulty walking: PT will work on gait training and proper use of assistive devices and advance as appropriate to use of stairs and outside ambulation on uneven surfaces. Unsteadiness on feet: PT will work on improving static and dynamic sitting and standing balance as well as proper use of assistive devices to decrease risk of falls. Abnormality of gait: PT will work to improve safety and efficiency of gait through neuromotor training and gait training along with instruction on proper use of assistive devices. Muscle weakness: PT & OT will work on strengthening exercises to improve f unctional strength including mixture of closed and open kinetic chain exercises. Debility: PT & OT will work on improving overall functional status to improve participation with ADLs, mobility and social involvement. Fatigue: PT & OT will work on improving endurance through aerobic exercises and therapeutic activity while monitoring patients tolerance for activity and vital signs as needed. DVT ppx: Lovenox Pain: Continue physical modalities in therapy and pain medications as needed to achieve functional pain control. Sleep: Monitor and address as needed. Bowel: Monitor and address as needed. Appetite: Monitor and address as needed. Discharge planning: Pending therapy progress and care plan meeting. Will continue discussion with therapy team, SW, patient and family. Plan to disc beatrice on May 13. Family and patient are considering going to jail facility versus home with home health. Due to medical complexity she may be safer at a jail facility, however if we can keep her for a little longer we may be able to get her safe enough to return home in a safe manner without increased risk of complications and return to hospital. Restrictions/ Precautions: Falls WB status: FWB Functional Hx: ADLs: Independent Cognition: Independent Mobility: rollator MOD I Barriers to Discharge: Decreased mobility and ability to perform self care, balance deficits, weakness Estimated Length of Stay: 1418 days Discharge Destination: Home with family
[2019-05-13] MEDS ORDERED: TOTAL PARENTERAL NUTRITION 1,560 ML IV SCH (20:00)
[2019-05-13] MEDS: MONTELUKAST 10 MG TAB PO SCH (21:24)
[2019-05-14] MEDS: OCTREOTIDE 100 MCG/1 ML INJ SUB-Q SCH ×3 (05:17→22:11)
[2019-05-14 06:58] LABS: Hematocrit 27.5 % (30.3-42.9); Hemoglobin 8.9 gm/dl (10.1-14.3); Mean Corpuscular HGB Conc 32 % (30-34); Mean Corpuscular Volume 83 fl (79-97); Platelet Count 375 K/mm3 (140-440); Red Blood Count 3.33 M/mm3 (3.65-5.03); Red Cell Distribution Width 16.7 % (13.2-15.2)
[2019-05-14 07:12] LABS: BUN/Creatinine Ratio 43; Blood Urea Nitrogen 17 mg/dL (7-17); Hemolysis Index 0
[2019-05-14] MEDS: IPRATROPIUM/ALBUTEROL SULFATE 3 ML AMPUL.NEB IH SCH ×2 (08:44→21:59)
[2019-05-14] MEDS: predniSONE 10 MG TAB PO SCH (08:54)
[2019-05-14] MEDS: guaiFENesin ER 600 MG TAB PO SCH ×2 (08:54→22:10)
[2019-05-14] MEDS: busPIRone 10 MG TAB PO SCH ×2 (08:54→22:11)
[2019-05-14] MEDS: ENOXAPARIN 40 MG/0.4 ML INJ SUB-Q SCH (08:55)
[2019-05-14] MEDS: SENNOSIDES 8.6 MG TAB PO SCH ×2 (08:55→21:07)
[2019-05-14] MEDS: PANTOPRAZOLE 40 MG TAB PO SCH ×2 (08:55→22:11)
[2019-05-14] MEDS: DULoxetine 30 MG CAP PO SCH (08:55)
--- NOTE | 2019-05-14 10:38 | Progress Note ---
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 She was previously discharged from the hospital in March after a complicated course in which she underwent a sigmoid resection with a colovaginal fistula takedown complicated by right ureteral injury. She underwent wound VAC placed adjacent along with IV antibiotics and after being discharged home noted that the wound VAC was not working well causing increased drainage and increased abdominal pain. 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 Plan is to treat with bowel rest and TPN with allowable sips and chips for taking meds. She developed leukocytosis and infectious disease was consulted which agreed with continuing levofloxacin and metronidazole. Also concern for possible cellulitis versus Gonzalez rotation at the wound VAC site. She also developed a UTI which was treated. Leukocytosis has improved with antibiotic and is almost normalized. Patient was seen by therapy and felt to be a good rehabilitation candidate. After she was medically stabilized she was transferred for further rehabilitation. Interval History Patient is participating in therapy and making reasonable progress. Taking rest breaks as needed. +BM. Denies pain, palpitations, dyspnea, cough, N/V, or joint pain. Rationale for extended rehabilitation stay: I was able to discuss with the insurance company the prospect of the patient staying longer than her current discharge date of 05/14. They seem to think that the idea is sound and would like to not have her bounce back and forth to the hospital if possible. The discussion I had with her insurance company follows my discussion with her the previous day as noted below. Insurance company asked that we submit updated notes on May 15 to see about an extension of time. Discussed with patient that the primary location I was looking at for custodial facility placement does not accept her particular insurance. Unfortunately there are few facilities that would be able to provide the higher level of care that she is needing with her TPN, close lab monitoring, frequent hypoglycemia, and possibility of going back to a wound VAC. Previously she was discharged home with the TPN, fistula and with home health, however they also were unable to appropriately manage her condition and she ended up getting worse and required readmission to the hospital. After discussing with her, I would pr efer to be able to keep her here where we can closely monitor her, ensure that her medications, labs, TPN are being properly provided and continue to improve her functioning from a therapy standpoint in order to possibly get her discharged home in a safe manner. There is also a possibility if her fistula is truly closing up as we are hoping that she may also be able to revert to oral intake of liquids which would be reasonable to stop the TPN at that point. Obviously this will be deferred to the surgeon as far as when to restart oral intake. Also discussed the possibility of her going to the [facility] where I know of a couple of facilities that can appropriately monitor the pat ient and administer the TPN however due to the necessity of follow-up with the surgeon this would become problematic because it is a [address] way (I drive it every day) and this would take away from the facilities ability to provide the care and therapy that she would need to continue improving. Follow-up as an outpatient for removal of the ureteral stent. EC Fistula: Wound VAC is currently off. She is being trialed without it to see what kind of drainage she continues to have when it is not connected. Decreased drainage noted by wound care nurse, appears that fistula may have closed. Hopefully we will be able to remain off the wound VAC which will make discharge process easier for her. We will await further information from surgeon as to whether or not she can start oral trials. Follow up in wound clinic No nausea today No vomiting. Dehydration: We will start another liter of IV normal saline today. COPD: No respiratory distress. Hypertension: BP in good range, slightly on the lower side Hypoglycemia: Better glucose levels today, slightly high but nothing like yesterday's values. We will continue to monitor, her glucose levels fluctuate frequently with the use of TPN. Continues on TPN, n.p.o. due to fistula. Continue daily lab checks for adjust ment of TPN formula. Pre-albumin check tomorrow Constipation: Continue Senokot. Surgeon does not necessarily want multiple bowel meds being used due to the fistula. Have discussed with the patient not to strain Endurance: Improving but still not back to baseline. All records, vitals, labs and medications were reviewed. No other issues per patient, nursing or therapy. Objective - Exam Narrative Exam: MUSCULOSKELETAL SPECIALTY EXAM CONSTITUTIONAL: Well developed, well nourished, appropriately groomed RESPIRATORY: Clear to auscultation bilaterally, no increased work of breathing CARDIOVASCULAR: Regular Rate/ Rhythm, no swelling, edema or tenderness in BUE or BLE. All extremities warm. GI: + bowel sounds, soft, NTTP, nondistended. Abd wound with dressing (wound nurse note reviewed). INTEGUMENTARY: Normal, no lesion, rash, masses or bruising noted in extremities. MUSCULOSKELETAL: BUE and BLE normal without defect, crepitus, subluxation, effusion, arthritic changes or TTP. BUE 4/5, good ROM, with normal tone. BLE 4/5 good ROM, with normal tone NEURO: CN 2-12 grossly intact. Sensation intact in all extremities. No tremor noted in 4 extremities. POSTURE and GAIT: Sitting posture good. Balance appears reasonable with some loss of balance at times when attempting to reach for items. Gait ambulating with a rolling walker, no loss of balance. Endurance is still a great limitation however is improving, taking several rest breaks during her ambulation (either standing or seated). PSYCH: Alert, oriented x3, affect appears normal. Insight appears intact. - Constitutional Vitals: Vital Signs - 12hr 05/14/19 07:42 Temperature 97.8 F Pulse Rate 97 H Respiratory 18 Rate Blood Pressure 92/68 O2 Sat by Pulse 98 Oximetry - Allied health notes Allied health notes reviewed: nursing, PT, OT FIMS assessment as documented by PT/OT/ST: Locomotion- walk/wheelchair Ambulation Distance 68 - Labs CBC & Chem 7: 05/15/19 06:28 05/15/19 06:28 Labs: Laboratory Results - last 72 hr 05/11/19 05/11/19 05/12/19 11:36 17:39 06:24 WBC RBC Hgb Hct MCV MCH MCHC RDW Plt Count Sodium Potassium Chloride Carbon Dioxide Anion Gap BUN Creatinine Estimated GFR BUN/Creatinine Ratio Glucose POC Glucose 177 H 150 H 112 H Calcium Phosphorus Magnesium Total Bilirubin AST ALT Alkaline Phosphatase Total Protein Albumin Albumin/Globulin Ratio 05/12/19 05/12/19 05/12/19 07:30 11:50 17:25 WBC RBC Hgb Hct MCV MCH MCHC RDW Plt Count Sodium 142 Potassium 4.2 Chloride 102.3 Carbon Dioxide 28 Anion Gap 16 BUN 16 Creatinine 0.3 L Estimated GFR > 60 BUN/Creatinine Ratio 53 Glucose 122 H POC Glucose 96 121 H Calcium 8.7 Phosphorus 3.80 Magnesium 1.70 Total Bilirubin < 0.20 AST 11 ALT 12 Alkaline Phosphatase 46 Total Protein 5.4 L Albumin 3.1 L Albumin/Globulin Ratio 1.3 05/12/19 05/12/19 05/12/19 22:16 22:23 23:17 WBC RBC Hgb Hct MCV MCH MCHC RDW Plt Count Sodium Potassium Chloride Carbon Dioxide Anion Gap BUN Creatinine Estimated GFR BUN/Creatinine Ratio Glucose POC Glucose 61 L 55 L 163 H Calcium Phosphorus Magnesium Total Bilirubin AST ALT Alkaline Phosphatase Total Protein Albumin Albumin/Globulin Ratio 05/13/19 05/13/19 05/13/19 06:22 06:37 06:37 WBC 8.8 RBC 3.25 L Hgb 8.6 L Hct 26.9 L MCV 83 MCH 26 L MCHC 32 RDW 16.4 H Plt Count 352 Sodium 139 Potassium 3.8 Chloride 97.3 L Carbon Dioxide 27 Anion Gap 19 BUN 14 Creatinine 0.5 L D Estimated GFR > 60 BUN/Creatinine Ratio 28 Glucose 315 H POC Glucose > 500 H Calcium 8.9 Phosphorus 4.10 Magnesium 1.70 Total Bilirubin AST ALT Alkaline Phosphatase Total Protein Albumin Albumin/Globulin Ratio 05/13/19 05/13/19 05/13/19 06:37 08:44 09:15 WBC RBC Hgb Hct MCV MCH MCHC RDW Plt Count Sodium Potassium Chloride Carbon Dioxide Anion Gap BUN Creatinine Estimated GFR BUN/Creatinine Ratio Glucose 370 H POC Glucose 101 77 Calcium Phosphorus Magnesium Total Bilirubin AST ALT Alkaline Phosphatase Total Protein Albumin Albumin/Globulin Ratio 05/13/19 05/13/19 05/14/19 11:49 17:40 00:31 WBC RBC Hgb Hct MCV MCH MCHC RDW Plt Count Sodium Potassium Chloride Carbon Dioxide Anion Gap BUN Creatinine Estimated GFR BUN/Creatinine Ratio Glucose POC Glucose 98 233 H 215 H Calcium Phosphorus Magnesium Total Bilirubin AST ALT Alkaline Phosphatase Total Protein Albumin Albumin/Globulin Ratio 05/14/19 05/14/19 05/14/19 06:18 06:18 06:49 WBC 10.5 RBC 3.33 L Hgb 8.9 L Hct 27.5 L MCV 83 MCH 27 L MCHC 32 RDW 16.7 H Plt Count 375 Sodium 142 Potassium 4.6 D Chloride 100.6 Carbon Dioxide 31 H Anion Gap 15 BUN 17 Creatinine 0.4 L Estimated GFR > 60 BUN/Creatinine Ratio 43 Glucose 177 H POC Glucose 169 H Calcium 9.0 Phosphorus 4.30 Magnesium 1.90 Total Bilirubin AST ALT Alkaline Phosphatase Total Protein Albumin Albumin/Globulin Ratio Assessment and Plan Enterocutaneous fistula with wound VAC removed now: Maintain dressing, monitor output, continue TPN with sips and chips with meds. Hypertension: Continue medications and adjust as needed for normotension. Hold for hypotension. COPD with acute on chronic respiratory failure and hypoxia: Continue nebulizer treatments. Monitor for exacerbation. On oxygen at home Hypoglycemia: Intermittent, typically in the morning. Resolves with D50. Obstructive sleep apnea: Continue CPAP. Follow up with truck hopper after discharge. Depression: Continue Cymbalta, monitor for improvement Anxiety: BuSpar, monitor for improvement Mild Pulmonary hypertension: As noted on prior echocardiogram. Apparently prior cardiomyopathy also seen on echocardiogram has resolved per review of cardiology notes Constipation: Continue medications monitor for regular bowel movements. Protein calorie malnutrition: Continue TPN with fat replacement, dietitian consult. Monitor prealbumin, 0.087 at last check. Anemia chronic disease: Continue to monitor, transfuse for hemoglobin less than 7. Dehydration: NS IVF as needed, monitor Nausea: medications available, has been a problem since starting TPN Ureteral stent placed for transection of ureter, follow-up with urology after discharge for removal. Was able to discuss with Dr. Mccloud, she can follow-up up to 4 months after placement. ADL dysfunction: OT will work on improving ability to perform ADLs (including assistive devices) to increase independence and decrease caregiver burden and improve functional transfers and mobility training. Difficulty walking: PT will work on gait training and proper use of assistive devices and advance as appropriate to use of stairs and outside ambulation on uneven surfaces. Unsteadiness on feet: PT will work on improving static and dynamic sitting and standing balance as well as proper use of assistive devices to decrease risk of falls. Abnormality of gait: PT will work to improve safety and efficiency of gait through neuromotor training and gait training along with instruction on proper use of assistive devices. Muscle weakness: PT & OT will work on strengthening exercises to improve functional strength including mixture of closed and open kinetic chain exercises. Debility: PT & OT will work on improving overall functional status to improve participation with ADLs, mobility and social involvement. Fatigue: PT & OT will work on improving endurance through aerobic exercises and therapeutic activity while monitoring patients tolerance for activity and vital signs as needed. DVT ppx: Lovenox Pain: Continue physical modalities in therapy and pain medications as needed to achieve functional pain control. Sleep: Monitor and address as needed. Bowel: Monitor and address as needed. Appetite: Monitor and address as needed. Discharge planning: Pending therapy progress and care plan meeting. Will continue discussion with therapy team, SW, patient and family. Plan to discharge on May 13. Family and patient are considering going to custodial facility versus home with home health. Due to medical complexity she may be safer at a custodial facility, however if we can keep her for a little longer we may be able to get her safe enough to return home in a safe manner without increased risk of complications and return to hospital. Restrictions/ Precautions: Falls WB status: FWB Functional Hx: ADLs: Independent Cognition: Independent Mobility: rollator MOD I Barriers to Discharge: Decreased mobility and ability to perform self care, balance deficits, weakness Estimated Length of Stay: 1418 days Discharge Destination: Home with family
[2019-05-14] MEDS ORDERED: SODIUM CHLORIDE 0.9% 1000 ML 1,000 ML IV SCH (10:45)
[2019-05-14] MEDS: oxyCODONE /ACETAMINOPHEN 5-325MG TAB PO PRN ×2 (10:57→22:10)
[2019-05-14] MEDS ORDERED: TOTAL PARENTERAL NUTRITION 1,560 ML IV SCH (20:00)
[2019-05-14] MEDS: MONTELUKAST 10 MG TAB PO SCH (22:10)
[2019-05-14] MEDS: SIMETHICONE 80 MG CHEW TAB PO PRN (22:11)
[2019-05-15] MEDS: OCTREOTIDE 100 MCG/1 ML INJ SUB-Q SCH ×3 (06:08→21:54)
[2019-05-15 07:18] LABS: Hematocrit 26.7 % (30.3-42.9); Hemoglobin 8.6 gm/dl (10.1-14.3); Mean Corpuscular HGB Conc 32 % (30-34); Mean Corpuscular Volume 82 fl (79-97); Platelet Count 357 K/mm3 (140-440); Red Blood Count 3.24 M/mm3 (3.65-5.03); Red Cell Distribution Width 16.4 % (13.2-15.2)
[2019-05-15 07:51] LABS: BUN/Creatinine Ratio 45; Blood Urea Nitrogen 18 mg/dL (7-17); Calcium 8.9 mg/dL (8.4-10.2); Hemolysis Index 0; Prealbumin 0.147 g/L (0.200-0.400)
[2019-05-15] MEDS: guaiFENesin ER 600 MG TAB PO SCH ×2 (09:14→21:54)
[2019-05-15] MEDS: ENOXAPARIN 40 MG/0.4 ML INJ SUB-Q SCH (09:14)
[2019-05-15] MEDS: DULoxetine 30 MG CAP PO SCH (09:14)
[2019-05-15] MEDS: busPIRone 10 MG TAB PO SCH ×2 (09:14→21:53)
[2019-05-15] MEDS: SENNOSIDES 8.6 MG TAB PO SCH ×2 (09:15→21:53)
[2019-05-15] MEDS: predniSONE 10 MG TAB PO SCH (09:15)
[2019-05-15] MEDS: PANTOPRAZOLE 40 MG TAB PO SCH ×2 (09:17→21:54)
[2019-05-15] MEDS: IPRATROPIUM/ALBUTEROL SULFATE 3 ML AMPUL.NEB IH SCH ×2 (09:53→20:58)
[2019-05-15] MEDS ORDERED: POTASSIUM CHLORIDE 10 MEQ 10 MEQ/100 ML BAG IV SCH (10:16)
[2019-05-15] MEDS ORDERED: SODIUM CHLORIDE 0.9% 1000 ML 1,000 ML IV SCH (10:30)
[2019-05-15] MEDS: SIMETHICONE 80 MG CHEW TAB PO PRN ×2 (13:14→22:01)
--- NOTE | 2019-05-15 13:28 | Progress Note ---
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 She was previously discharged from the hospital in March after a complicated course in which she underwent a sigmoid resection with a colovaginal fistula takedown complicated by right ureteral injury. She underwent wound VAC placed adjacent along with IV antibiotics and after being discharged home noted that the wound VAC was not working well causing increased drainage and increased abdominal pain. 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 Plan is to treat with bowel rest and TPN with allowable sips and chips for taking meds. She developed leukocytosis and infectious disease was consulted which agreed with continuing levofloxacin and metronidazole. Also concern for possible cellulitis versus skin irritation at the wound VAC site. She also developed a UTI which was treated. Leukocytosis has improved with antibiotic and is almost normalized. Patient was seen by therapy and felt to be a good rehabilitation candidate. After she was medically stabilized she was transferred for further rehabilitation. Interval History Patient is participating in therapy and making reasonable progress. Taking rest breaks as needed. +BM. Denies pain, palpitations, dyspnea, cough, N/V, or joint pain. Rationale for extended rehabilitation stay: I was able to discuss with the insurance company the prospect of the patient staying longer than her current discharge date of 05/14. They seem to think that the idea is sound and would like to not have her bounce back and forth to the hospital if possible. The discussion I had with her insurance company follows my discussion with her the previous day as noted below. Insurance company asked that we submit updated notes on May 15 to see about an extension of time. Discussed with patient that the primary location I was looking at for longterm facility placement does not accept her particular insurance. Unfortunately there are few facilities that would be able to provide the higher level of care that she is needing with her TPN, close lab monitoring, frequent hypoglycemia, and possibility of going back to a wound VAC. Previously she was discharged home with the TPN, fistula and with home health, however they also were unable to appropriately manage her condition and she ended up getting worse and required readmission to the hospital. After discussing with her, I would prefer to be able to keep her here where we can closely monitor her, ensure that her medications, labs, TPN are being properly provided and continue to improve her functioning from a therapy standpoint in order to possibly get her discharged home in a safe manner. There is also a possibility if her fistula is truly closing up as we are hoping that she may also be able to revert to oral intake of liquids which would be reasonable to stop the TPN at that point. Obviously this will be deferred to the surgeon as far as when to restart oral intake. Also discussed the possibility of her going to the [facility] where I know of a couple of facilities that can appropriately monitor the patient and administer the TPN however due to the necessity of follow-up with the surgeon this would become problematic because it is a [address] way (I drive it every day) and this would take away from the facilities ability to provide the care and therapy that she would need to continue improving. Follow-up as an outpatient for removal of the ureteral stent. EC Fistula: Wound VAC is currently off. She is being trialed without it to see what kind of drainage she continues to have when it is not connected. No drainage seen when bandage was changed today. Appears that fistula may have closed. Hopefully we will be able to remain off the wound VAC which will make discharge process easier for her. We will await further information from surgeon as to whether or not she can start oral trials. Follow up in wound clinic No nausea today No vomiting. Dehydration: IV normal saline today. COPD: No respiratory distress. Hypertension: BP in good range, slightly on the lower side Hypoglycemia: Better glucose levels today, slightly high . We will continue to monitor, her glucose levels fluctuate frequently with the use of TPN. Continues on TPN, n.p.o. due to fistula. Continue daily lab checks for adjustment of TPN formula. Pre-albumin improved but still below normal. Constipation: Continue Senokot. Surgeon does not necessarily want multiple bowel meds being used due to the fistula. Have discussed with the patient not to strain Endurance: Improving but still not back to baseline. Phos increased today - shoud correct with TPN tonight...monitor Hypokalemia - will replace and continue to monitor All records, vitals, labs and medications were reviewed. No other issues per patient, nursing or therapy. Objective - Exam Narrative Exam: MUSCULOSKELETAL SPECIALTY EXAM CONSTITUTIONAL: Well developed, well nourished, appropriately groomed RESPIRATORY: Clear to auscultation bilaterally, no increased work of breathing CARDIOVASCULAR: Regular Rate/ Rhythm, no swelling, edema or tenderness in BUE or BLE. All extremities warm. GI: + bowel sounds, soft, NTTP, nondistended. Abd wound with dressing, c/d/i. Dressing removed and wound examined, no signs of drainage today.. INTEGUMENTARY: Normal, no lesion, rash, masses or bruising noted in extremities. MUSCULOSKELETAL: BUE and BLE normal without defect, crepitus, subluxation, effusion, arthritic changes or TTP. BUE 4/5, good ROM, with normal tone. BLE 4/5 good ROM, with normal tone NEURO: CN 2-12 grossly intact. Sensation intact in all extremities. No tremor noted in 4 extremities. POSTURE and GAIT: Sitting posture good. Balance appears reasonable with some loss of balance at times when attempting to reach for items. Gait ambulating with a rolling walker, no loss of balance. Endurance is still a great limitation however is improving, taking several rest breaks during her ambulation (either standing or seated). PSYCH: Alert, oriented x3, affect appears normal. Insight appears intact. - Constitutional Vitals: Vital Signs - 12hr 05/15/19 05/15/19 05/15/19 07:51 09:53 09:56 Temperature 98.1 F Pulse Rate 91 H Pulse Rate [ 100 H Anterior Bilateral Throughout] Respiratory 18 Rate Respiratory 20 Rate [Anterior Bilateral Throughout] Blood Pressure 114/60 O2 Sat by Pulse 99 99 Oximetry - Allied health notes Allied health notes reviewed: nursing, PT, OT FIMS assessment as documented by PT/OT/ST: Toileting Toileting Device Commode over Toilet Patient able to: Adjust clothes before,Clean self,Adjust clothes after Patient able to perform: 3/3 (100%) Toileting FIM Score 6. Modified [place] (Needs equip. or prosth ./orth.) Transfers Toilet Transfers FIM Score 6. Modified [place] (Uses device, special seat or more time.) Locomotion- walk/wheelchair Ambulation Distance 68 Dressing-Upper body Patient retrieves clothing Yes items: Upper Body Dressing FIM Score 7. Complete [place] (Dresses self. Gets own clothes.) Dressing-lower body Patient retrieves clothing Yes items: Lower Body Dressing FIM Score 7. Complete [place] (Dresses self. Gets own clothes.) - Labs CBC & Chem 7: 05/16/19 09:06 05/16/19 09:06 Labs: Laboratory Results - last 72 hr 05/12/19 05/12/19 05/12/19 17:25 22:16 22:23 WBC RBC Hgb Hct MCV MCH MCHC RDW Plt Count Sodium Potassium Chloride Carbon Dioxide Anion Gap BUN Creatinine Estimated GFR BUN/Creatinine Ratio Glucose POC Glucose 121 H 61 L 55 L Calcium Phosphorus Magnesium Prealbumin 05/12/19 05/13/19 05/13/19 23:17 06:22 06:37 WBC 8.8 RBC 3.25 L Hgb 8.6 L Hct 26.9 L MCV 83 MCH 26 L MCHC 32 RDW 16.4 H Plt Count 352 Sodium Potassium Chloride Carbon Dioxide Anion Gap BUN Creatinine Estimated GFR BUN/Creatinine Ratio Glucose POC Glucose 163 H > 500 H Calcium Phosphorus Magnesium Prealbumin 05/13/19 05/13/19 05/13/19 06:37 06:37 08:44 WBC RBC Hgb Hct MCV MCH MCHC RDW Plt Count Sodium 139 Potassium 3.8 Chloride 97.3 L Carbon Dioxide 27 Anion Gap 19 BUN 14 Creatinine 0.5 L D Estimated GFR > 60 BUN/Creatinine Ratio 28 Glucose 315 H 370 H POC Glucose 101 Calcium 8.9 Phosphorus 4.10 Magnesium 1.70 Prealbumin 05/13/19 05/13/19 05/13/19 09:15 11:49 17:40 WBC RBC Hgb Hct MCV MCH MCHC RDW Plt Count Sodium Potassium Chloride Carbon Dioxide Anion Gap BUN Creatinine Estimated GFR BUN/Creatinine Ratio Glucose POC Glucose 77 98 233 H Calcium Phosphorus Magnesium Prealbumin 05/14/19 05/14/19 05/14/19 00:31 06:18 06:18 WBC 10.5 RBC 3.33 L Hgb 8.9 L Hct 27.5 L MCV 83 MCH 27 L MCHC 32 RDW 16.7 H Plt Count 375 Sodium 142 Potassium 4.6 D Chloride 100.6 Carbon Dioxide 31 H Anion Gap 15 BUN 17 Creatinine 0.4 L Estimated GFR > 60 BUN/Creatinine Ratio 43 Glucose 177 H POC Glucose 215 H Calcium 9.0 Phosphorus 4.30 Magnesium 1.90 Prealbumin 05/14/19 05/14/19 05/14/19 06:49 12:04 18:29 WBC RBC Hgb Hct MCV MCH MCHC RDW Plt Count Sodium Potassium Chloride Carbon Dioxide Anion Gap BUN Creatinine Estimated GFR BUN/Creatinine Ratio Glucose POC Glucose 169 H 106 H 88 Calcium Phosphorus Magnesium Prealbumin 05/14/19 05/15/19 05/15/19 23:25 05:53 06:28 WBC 10.3 RBC 3.24 L Hgb 8.6 L Hct 26.7 L MCV 82 MCH 27 L MCHC 32 RDW 16.4 H Plt Count 357 Sodium Potassium Chloride Carbon Dioxide Anion Gap BUN Creatinine Estimated GFR BUN/Creatinine Ratio Glucose POC Glucose 231 H 128 H Calcium Phosphorus Magnesium Prealbumin 05/15/19 05/15/19 06:28 12:18 WBC RBC Hgb Hct MCV MCH MCHC RDW Plt Count Sodium 142 Potassium 3.5 L D Chloride 103.1 Carbon Dioxide 27 Anion Gap 15 BUN 18 H Creatinine 0.4 L Estimated GFR > 60 BUN/Creatinine Ratio 45 Glucose 103 H POC Glucose 124 H Calcium 8.9 Phosphorus 4.70 H Magnesium 1.80 Prealbumin 0.147 L Assessment and Plan Enterocutaneous fistula with wound VAC removed now: Maintain dressing, monitor output, continue TPN with sips and chips with meds. Hypertension: Continue medications and adjust as needed for normotension. Hold for hypotension. COPD with acute on chronic respiratory failure and hypoxia: Continue nebulizer treatments. Monitor for exacerbation. On oxygen at home Hypoglycemia: Intermittent, typically in the morning. Resolves with D50. Obstructive sleep apnea: Continue CPAP. Follow up with general operations agent after jamila parikh. Depression: Continue Cymbalta, monitor for improvement Anxiety: BuSpar, monitor for improvement Mild Pulmonary hypertension: As noted on prior echocardiogram. Apparently prior cardiomyopathy also seen on echocardiogram has resolved per review of cardiology notes Constipation: Continue medications monitor for regular bowel movements. Protein calorie malnutrition: Continue TPN with fat replacement, dietitian consult. Monitor prealbumin, 0.087 at last check. Anemia chronic disease: Continue to monitor, transfuse for hemoglobin less than 7. Dehydration: NS IVF as needed, monitor Nausea: medications available, has been a problem since starting TPN Ureteral stent placed for transection of ureter, follow-up with urology after discharge for removal. Was able to discuss with Dr. Mccloud, she can follow-up up to 4 months after placement. ADL dysfunction: OT will work on improving ability to perform ADLs (including assistive devices) to increase independence and decrease caregiver burden and improve functional transfers and mobility training. Difficulty walking: PT will work on gait training and proper use of assistive devices and advance as appropriate to use of stairs and outside ambulation on uneven surfaces. Unsteadiness on feet: PT will work on improving static and dynamic sitting and standing balance as well as proper use of assistive devices to decrease risk of falls. Abnormality of gait: PT will work to improve safety and efficiency of gait through neuromotor training and gait training along with instruction on proper use of assistive devices. Muscle weakness: PT & OT will work on strengthening exercises to improve functional strength including mixture of closed and open kinetic chain exercises. Debility: PT & OT will work on improving overall functional status to improve participation with ADLs, mobility and social involvement. Fatigue: PT & OT will work on improving endurance through aerobic exercises and therapeutic activity while monitoring patients tolerance for activity and vital signs as needed. DVT ppx: Lovenox Pain: Continue physical modalities in therapy and pain medications as needed to achieve functional pain control. Sleep: Monitor and address as needed. Bowel: Monitor and address as needed. Appetite: Monitor and address as needed. Discharge planning: Pending therapy progress and care plan meeting. Will continue discussion with therapy team, SW, patient and family. Plan to discharge on May 13. Family and patient are considering going to longterm facility versus home with home health. Due to medical complexity she may be safer at a longterm facility, however if we can keep her for a little longer we may be able to get her safe enough to return home in a safe manner without increased risk of complications and return to hospital. Restrictions/ Precautions: Falls WB status: FWB Functional Hx: ADLs: Independent Cognition: Independent Mobility: rollator MOD I Barriers to Discharge: Decreased mobility and ability to perform self care, balance deficits, weakness Estimated Length of Stay: 1418 days Discharge Destination: Home with family
[2019-05-15] MEDS: oxyCODONE /ACETAMINOPHEN 5-325MG TAB PO PRN ×2 (14:02→21:57)
[2019-05-15] MEDS ORDERED: TOTAL PARENTERAL NUTRITION 1,560 ML IV SCH (20:00)
[2019-05-15] MEDS: MONTELUKAST 10 MG TAB PO SCH (21:53)
[2019-05-16] MEDS: OCTREOTIDE 100 MCG/1 ML INJ SUB-Q SCH ×3 (05:30→21:05)
[2019-05-16] MEDS: IPRATROPIUM/ALBUTEROL SULFATE 3 ML AMPUL.NEB IH SCH ×2 (08:39→20:59)
[2019-05-16 09:46] LABS: Hemoglobin 8.9 gm/dl (10.1-14.3); Mean Corpuscular HGB Conc 32 % (30-34); Mean Corpuscular Volume 83 fl (79-97); Platelet Count 369 K/mm3 (140-440); Red Blood Count 3.39 M/mm3 (3.65-5.03); Red Cell Distribution Width 16.6 % (13.2-15.2)
[2019-05-16] MEDS: busPIRone 10 MG TAB PO SCH ×2 (10:05→21:05)
[2019-05-16] MEDS: ENOXAPARIN 40 MG/0.4 ML INJ SUB-Q SCH (10:06)
[2019-05-16] MEDS: DULoxetine 30 MG CAP PO SCH (10:07)
[2019-05-16] MEDS: PANTOPRAZOLE 40 MG TAB PO SCH ×2 (10:07→21:04)
[2019-05-16] MEDS: predniSONE 10 MG TAB PO SCH (10:07)
[2019-05-16] MEDS: guaiFENesin ER 600 MG TAB PO SCH ×2 (10:07→21:04)
[2019-05-16 10:08] LABS: BUN/Creatinine Ratio 40; Blood Urea Nitrogen 16 mg/dL (7-17); Hemolysis Index 1
[2019-05-16] MEDS: SIMETHICONE 80 MG CHEW TAB PO PRN ×2 (10:15→21:04)
[2019-05-16] MEDS: SENNOSIDES 8.6 MG TAB PO SCH ×2 (10:15→21:04)
[2019-05-16] MEDS ORDERED: TOTAL PARENTERAL NUTRITION 1,560 ML IV SCH (20:00)
[2019-05-16] MEDS: MONTELUKAST 10 MG TAB PO SCH (21:04)
[2019-05-16] MEDS: oxyCODONE /ACETAMINOPHEN 5-325MG TAB PO PRN (21:05)
[2019-05-17] MEDS: OCTREOTIDE 100 MCG/1 ML INJ SUB-Q SCH ×3 (06:08→22:38)
[2019-05-17] MEDS: IPRATROPIUM/ALBUTEROL SULFATE 3 ML AMPUL.NEB IH SCH ×2 (08:10→20:53)
[2019-05-17 08:54] LABS: Hematocrit 28.4 % (30.3-42.9); Hemoglobin 9.2 gm/dl (10.1-14.3); Mean Corpuscular HGB Conc 32 % (30-34); Mean Corpuscular Volume 83 fl (79-97); Platelet Count 376 K/mm3 (140-440); Red Blood Count 3.43 M/mm3 (3.65-5.03); Red Cell Distribution Width 16.6 % (13.2-15.2)
[2019-05-17 09:08] LABS: BUN/Creatinine Ratio 45; Blood Urea Nitrogen 18 mg/dL (7-17); Calcium 9.2 mg/dL (8.4-10.2); Hemolysis Index 3
[2019-05-17] MEDS: DULoxetine 30 MG CAP PO SCH (09:53)
[2019-05-17] MEDS: guaiFENesin ER 600 MG TAB PO SCH ×2 (09:53→22:37)
[2019-05-17] MEDS: SENNOSIDES 8.6 MG TAB PO SCH ×2 (09:53→22:36)
[2019-05-17] MEDS: predniSONE 10 MG TAB PO SCH (09:54)
[2019-05-17] MEDS: ENOXAPARIN 40 MG/0.4 ML INJ SUB-Q SCH (09:54)
[2019-05-17] MEDS: busPIRone 10 MG TAB PO SCH ×2 (09:54→22:37)
[2019-05-17] MEDS: PANTOPRAZOLE 40 MG TAB PO SCH ×2 (09:54→22:38)
[2019-05-17] MEDS: oxyCODONE /ACETAMINOPHEN 5-325MG TAB PO PRN ×2 (11:48→22:36)
[2019-05-17] MEDS: SIMETHICONE 80 MG CHEW TAB PO PRN ×2 (11:48→22:37)
--- NOTE | 2019-05-17 12:05 | Progress Note ---
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 She was previously discharged from the hospital in March after a complicated course in which she underwent a sigmoid resection with a colovaginal fistula takedown complicated by right ureteral injury. She underwent wound VAC placed adjacent along with IV antibiotics and after being discharged home noted that the wound VAC was not working well causing increased drainage and increased abdominal pain. 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 Plan is to treat with bowel rest and TPN with allowable sips and chips for taking meds. She developed leukocytosis and infectious disease was consulted which agreed with continuing levofloxacin and metronidazole. Also concern for possible cellulitis versus skin irritation at the wound VAC site. She also developed a UTI which was treated. Leukocytosis has improved with antibiotic and is almost normalized. Patient was seen by therapy and felt to be a good rehabilitation candidate. After she was medically stabilized she was transferred for further rehabilitation. Interval History Patient is participating in therapy and making reasonable progress. Taking rest breaks as needed. -BM (last on 05/15). Denies pain, palpitations, dyspnea, cough, N/V, or joint pain. Rationale for extended rehabilitation stay: I was able to discuss with the insurance company the prospect of the patient staying longer than her current discharge date of 05/14. They seem to think that the idea is sound and would like to not have her bounce back and forth to the hospital if possible. The discussion I had with her insurance company follows my discussion with her the previous day as noted below. Insurance company asked that we submit updated notes on May 15 to see about an extension of time. Discussed with patient that the primary location I was looking at for alf facility placement does not accept her particular insurance. Unfortunately there are few facilities that would be able to provide the higher level of care that she is needing with her TPN, close lab monitoring, frequent hypoglycemia, and possibility of going back to a wound VAC. Previously she was discharged home with the TPN, fistula and with home health, however they also were unable to appropriately manage her condition and she ended up getting worse and required readmission to the hospital. After discussing with her, I would prefer to be able to keep her here where we can closely monitor her, ensure that her medications, labs, TPN are being properly provided and continue to improve her functioning from a therapy standpoint in order to possibly get her discharged home in a safe manner. There is also a possibility if her fistula is truly closing up as we are hoping that she may also be able to revert to oral intake of liquids which would be reasonable to stop the TPN at that point. Obviously this will be deferred to the surgeon as far as when to restart oral intake. Also discussed the possibility of her going to the [facility] where I know of a couple of facilities that can appropriately monitor the patient and administer the TPN however due to the necessity of follow-up with the surgeon this would become problematic because it is a [address] way (I drive it every day) and this would take away from the facilities ability to provide the care and therapy that she would need to continue improving. Follow-up as an outpatient for removal of the ureteral stent. EC Fistula: Wound VAC is currently off. It appears that the fistula has indeed closed. She was visited by the surgeon (Dr. Phillips) today and he laid out a plan for further advancing her diet starting on to clear liquids and if she tolerates that then moving to full liquids. During this time she will continue to have TPN. If all goes well with the clear liquid trials starting on we could possibly discharge on May 24 which is when he would transition her to a full liquid diet. Follow up in wound clinic No nausea today No vomiting. Dehydration: IV normal saline today, will likely repeat this most every day until she is able to start clear liquids. Continue to monitor COPD: No respiratory distress. Hypertension: BP in good range, slightly on the lower side Hypoglycemia: Better glucose levels today, slightly high . We will continue to monitor, her glucose levels fluctuate frequently with the use of TPN. Continues on TPN, n.p.o. due to fistula. Continue daily lab checks for adjustment of TPN formula. Pre-albumin improved but still below normal. Constipation: Continue Senokot. Surgeon does not necessarily want multiple bowel meds being used due to the fistula. Have discussed with the patient not to strain Endurance: Improving but still not back to baseline. Phos normalized today - corrected with TPN ...monitor Hypokalemia -normalized, continue to monitor All records, vitals, labs and medications were reviewed. No other issues per patient, nursing or therapy. Objective - Exam Narrative Exam: MUSCULOSKELETAL SPECIALTY EXAM CONSTITUTIONAL: Well developed, well nourished, appropriately groomed RESPIRATORY: Clear to auscultation bilaterally, no increased work of breathing CARDIOVASCULAR: Regular Rate/ Rhythm, no swelling, edema or tenderness in BUE or BLE. All extremities warm. GI: + bowel sounds, soft, NTTP, nondistended. Abd wound with dressing, c/d/i. no signs of drainage today. INTEGUMENTARY: Normal, no lesion, rash, masses or bruising noted in extremities. MUSCULOSKELETAL: BUE and BLE normal without defect, crepitus, subluxation, effusion, arthritic changes or TTP. BUE 4/5, good ROM, with normal tone. BLE 4/5 good ROM, with normal tone NEURO: CN 2-12 grossly intact. Sensation intact in all extremities. No tremor noted in 4 extremities. POSTURE and GAIT: Sitting posture good. Balance appears reasonable with some loss of balance at times when attempting to reach for items. Gait ambulating with a rolling walker , no loss of balance but unsteady when I have observed her. Endurance is still a great limitation however is improving PSYCH: Alert, oriented x3, affect appears normal. Insight appears intact. - Constitutional Vitals: Vital Signs - 12hr 05/17/19 05/17/19 05/17/19 07:22 08:10 08:23 Temperature 98.9 F Pulse Rate 83 Pulse Rate [ 90 Anterior Bilateral Throughout] Respiratory 18 Rate Respiratory 20 Rate [Anterior Bilateral Throughout] Blood Pressure 103/64 O2 Sat by Pulse 100 100 Oximetry - Allied health notes Allied health notes reviewed: nursing, PT, OT FIMS assessment as documented by PT/OT/ST: Toileting Toileting Device Commode over Toilet Patient able to: Adjust clothes before,Clean self,Adjust clothes after Patient able to perform: 3/3 (100%) Toileting FIM Score 6. Modified Brooks (Needs equip. or prosth ./orth.) Transfers Toilet Transfers FIM Score 6. Modified Brooks (Uses device, special seat or more time.) Locomotion- walk/wheelchair Ambulation Distance 68 Dressing-Upper body Patient retrieves clothing Yes items: Upper Body Dressing FIM Score 7. Complete Brooks (Dresses self. Gets own clothes.) Dressing-lower body Patient retrieves clothing Yes items: Lower Body Dressing FIM Score 7. Complete Brooks (Dresses self. Gets own clothes.) - Labs CBC & Chem 7: 05/17/19 08:23 05/17/19 08:23 Labs: Laboratory Results - last 72 hr 05/14/19 05/14/19 05/15/19 18:29 23:25 05:53 WBC RBC Hgb Hct MCV MCH MCHC RDW Plt Count Sodium Potassium Chloride Carbon Dioxide Anion Gap BUN Creatinine Estimated GFR BUN/Creatinine Ratio Glucose POC Glucose 88 231 H 128 H Calcium Phosphorus Magnesium Prealbumin 05/15/19 05/15/19 05/15/19 06:28 06:28 12:18 WBC 10.3 RBC 3.24 L Hgb 8.6 L Hct 26.7 L MCV 82 MCH 27 L MCHC 32 RDW 16.4 H Plt Count 357 Sodium 142 Potassium 3.5 L D Chloride 103.1 Carbon Dioxide 27 Anion Gap 15 BUN 18 H Creatinine 0.4 L Estimated GFR > 60 BUN/Creatinine Ratio 45 Glucose 103 H POC Glucose 124 H Calcium 8.9 Phosphorus 4.70 H Magnesium 1.80 Prealbumin 0.147 L 05/15/19 05/16/19 05/16/19 17:53 00:00 06:05 WBC RBC Hgb Hct MCV MCH MCHC RDW Plt Count Sodium Potassium Chloride Carbon Dioxide Anion Gap BUN Creatinine Estimated GFR BUN/Creatinine Ratio Glucose POC Glucose 111 H 178 H 110 H Calcium Phosphorus Magnesium Prealbumin 05/16/19 05/16/19 05/16/19 09:06 09:06 11:28 WBC 10.3 RBC 3.39 L Hgb 8.9 L Hct 28.0 L MCV 83 MCH 26 L MCHC 32 RDW 16.6 H Plt Count 369 Sodium 140 Potassium 3.7 Chloride 101.0 Carbon Dioxide 26 Anion Gap 17 BUN 16 Creatinine 0.4 L Estimated GFR > 60 BUN/Creatinine Ratio 40 Glucose 105 H POC Glucose 74 Calcium 9.0 Phosphorus 3.40 D Magnesium 1.80 Prealbumin 05/16/19 05/17/19 05/17/19 17:49 07:26 08:23 WBC 10.4 RBC 3.43 L Hgb 9.2 L Hct 28.4 L MCV 83 MCH 27 L MCHC 32 RDW 16.6 H Plt Count 376 Sodium Potassium Chloride Carbon Dioxide Anion Gap BUN Creatinine Estimated GFR BUN/Creatinine Ratio Glucose POC Glucose 116 H 100 Calcium Phosphorus Magnesium Prealbumin 05/17/19 05/17/19 08:23 11:32 WBC RBC Hgb Hct MCV MCH MCHC RDW Plt Count Sodium 141 Potassium 4.3 Chloride 102.7 Carbon Dioxide 26 Anion Gap 17 BUN 18 H Creatinine 0.4 L Estimated GFR > 60 BUN/Creatinine Ratio 45 Glucose 115 H POC Glucose 90 Calcium 9.2 Phosphorus 3.50 Magnesium 1.80 Prealbumin Assessment and Plan Enterocutaneous fistula with wound VAC removed now: Maintain dressing, monitor output, continue TPN with sips and chips with meds. Hypertension: Continue medications and adjust as needed for normotension. Hold for hypotension. COPD with acute on chronic respiratory failure and hypoxia: Continue nebulizer treatments. Monitor for exacerbation. On oxygen at home Hypoglycemia: Intermittent, typically in the morning. Resolves with D50. Obstructive sleep apnea: Continue CPAP. Follow up with group exercise instructor after discharge. Depression: Continue Cymbalta, monitor for improvement Anxiety: BuSpar, monitor for improvement Mild Pulmonary hypertension: As noted on prior echocardiogram. Apparently prior cardiomyopathy also seen on echocardiogram has resolved per review of cardiology notes Constipation: Continue medications monitor for regular bowel movements. Protein calorie malnutrition: Continue TPN with fat replacement, dietitian consult. Monitor prealbumin, 0.147 at last check. Anemia chronic disease: Continue to monitor, transfuse for hemoglobin less than 7. Dehydration: NS IVF as needed, monitor Nausea: medications available, has been a problem since starting TPN Ureteral stent placed for transection of ureter, follow-up with urology after discharge for removal. Was able to discuss with Dr. Mccloud, she can follow-up up to 4 months after placement. ADL dysfunction: OT will work on improving ability to perform ADLs (including assistive devices) to increase independence and decrease caregiver burden and improve functional transfers and mobility training. Difficulty walking: PT will work on gait training and proper use of assistive devices and advance as appropriate to use of stairs and outside ambulation on uneven surfaces. Unsteadiness on feet: PT will work on improving static and dynamic sitting and standing balance as well as proper use of assistive devices to decrease risk of falls. Abnormality of gait: PT will work to improve safety and efficiency of gait through neuromotor training and gait training along with instruction on proper use of assistive devices. Muscle weakness: PT & OT will work on strengthening exercises to improve functional strength including mixture of closed and open kinetic chain exercises. Debility: PT & OT will work on improving overall functional status to improve participation with ADLs, mobility and social involvement. Fatigue: PT & OT will work on improving endurance through aerobic exercises and therapeutic activity while monitoring patients tolerance for activity and vital signs as needed. DVT ppx: Lovenox Pain: Continue physical modalities in therapy and pain medications as needed to achieve functional pain control. Sleep: Monitor and address as needed. Bowel: Monitor and address as needed. Appetite: Monitor and address as needed. Discharge planning: Pending therapy progress and care plan meeting. Will continue discussion with therapy team, SW, patient and family. If we can keep her for a little longer we may be able to get her safe enough to return home in a safe manner without increased risk of complications and return to hospital, especially now that we are planning to advance her oral intake per the surgeon on , May 20, as well as on FridayMay 23 if all goes well. Restrictions/ Precautions: Falls WB status: FWB Functional Hx: ADLs: Independent Cognition: Independent Mobility: rollator MOD I Barriers to Discharge: Decreased mobility and ability to perform self care, balance deficits, weakness Estimated Length of Stay: 18-25 days Discharge Destination: Home with family
--- NOTE | 2019-05-17 12:19 | Event Note ---
Date: 05/17/19 Routine check- Patient reports that she is doing very well. Output from the midline fistula stopped last week or Friday. I received a picture from the wound care nurse last Friday which showed no evidence of any fistula output. We do not have any specific literature documenting a safe time to begin oral feeding after a small bowel fistula closes. Therefore, we will proceed with the following plan: 1) as long as the fistula output does not restart, will begin a clear liquid diet this . 2) we will monitor the patient until the following Friday. If there is no resumption of fistula output and no other issues, will transition to a full liquid diet. 3) we will continue with full liquid diet and TPN for 1 week. If the fistula remains closed and there are no other complications, will discontinue TPN at the end of that week. 4) will need to continue the bowel regimen during this time. Please call with questions.
[2019-05-17] MEDS ORDERED: SODIUM CHLORIDE 0.9% 1000 ML 1,000 ML IV SCH (12:30)
[2019-05-17] MEDS ORDERED: TOTAL PARENTERAL NUTRITION 1,560 ML IV SCH (20:00)
[2019-05-17] MEDS ORDERED: FAT EMULSIONS 20% 250 ML IV SCH (20:00)
[2019-05-17] MEDS: MONTELUKAST 10 MG TAB PO SCH (22:37)
[2019-05-18] MEDS: OCTREOTIDE 100 MCG/1 ML INJ SUB-Q SCH ×3 (05:31→22:49)
[2019-05-18 06:41] LABS: BUN/Creatinine Ratio 40; Blood Urea Nitrogen 16 mg/dL (7-17); Hemolysis Index 1
[2019-05-18] MEDS: IPRATROPIUM/ALBUTEROL SULFATE 3 ML AMPUL.NEB IH SCH ×2 (08:09→21:37)
[2019-05-18] MEDS: SENNOSIDES 8.6 MG TAB PO SCH ×2 (08:55→23:00)
[2019-05-18] MEDS: ENOXAPARIN 40 MG/0.4 ML INJ SUB-Q SCH (08:55)
[2019-05-18] MEDS: predniSONE 10 MG TAB PO SCH (08:55)
[2019-05-18] MEDS: guaiFENesin ER 600 MG TAB PO SCH ×2 (08:55→22:49)
[2019-05-18] MEDS: PANTOPRAZOLE 40 MG TAB PO SCH ×2 (08:55→22:49)
[2019-05-18] MEDS: DULoxetine 30 MG CAP PO SCH (08:55)
[2019-05-18] MEDS: busPIRone 10 MG TAB PO SCH ×2 (08:56→22:49)
[2019-05-18] MEDS: oxyCODONE /ACETAMINOPHEN 5-325MG TAB PO PRN ×2 (08:59→20:16)
[2019-05-18] MEDS ORDERED: SODIUM CHLORIDE 0.9% 1000 ML 1,000 ML IV SCH (10:30)
[2019-05-18] MEDS ORDERED: MAGNESIUM SULFATE 1 GM in SODIUM CHLORIDE 0.9% 50 ML IV ONE (11:00)
[2019-05-18] MEDS ORDERED: POTASSIUM CHLORIDE 10 MEQ 10 MEQ/100 ML BAG IV ONE (12:00)
--- NOTE | 2019-05-18 12:21 | Progress Note ---
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 She was previously discharged from the hospital in March after a complicated course in which she underwent a sigmoid resection with a colovaginal fistula takedown complicated by right ureteral injury. She underwent wound VAC placed adjacent along with IV antibiotics and after being discharged home noted that the wound VAC was not working well causing increased drainage and increased abdominal pain. 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 Plan is to treat with bowel rest and TPN with allowable sips and chips for taking meds. She developed leukocytosis and infectious disease was consulted which agreed with continuing levofloxacin and metronidazole. Also concern for possible cellulitis versus skin irritation at the wound VAC site. She also developed a UTI which was treated. Leukocytosis has improved with antibiotic and is almost normalized. Patient was seen by therapy and felt to be a good rehabilitation candidate. After she was medically stabilized she was transferred for further rehabilitation. Interval History Patient is participating in therapy and making reasonable progress. Taking rest breaks as needed. +BM . Denies pain, palpitations, dyspnea, cough, N/V, or joint pain. Rationale for extended rehabilitation stay: I was able to discuss with the insurance company the prospect of the patient staying longer than her current discharge date of 05/14. They seem to think that the idea is sound and would like to not have her bounce back and forth to the hospital if possible. The discussion I had with her insurance company follows my discussion with her the previous day as noted below. Insurance company asked that we submit updated notes on May 15 to see about an extension of time. Discussed with patient that the primary location I was looking at for halfway facility placement does not accept her particular insurance. Unfortunately there are few facilities that would be able to provide the higher level of care that she is needing with her TPN, close lab monitoring, frequent hypoglycemia, and possibility of going back to a wound VAC. Previously she was discharged home with the TPN, fistula and with home health, however they also were unable to appropriately manage her condition and she ended up getting worse and required readmission to the hospital. After discussing with her, I would prefer to be able to keep her here where we can closely monitor her, ensure that her medications, labs, TPN are being properly provided and continue to improve her functioning from a therapy standpoint in order to possibly get her discharged home in a safe manner. There is also a possibility if her fistula is truly closing up as we are hoping that she may also be able to revert to oral intake of liquids which would be reasonable to stop the TPN at that point. Obviously this will be deferred to the surgeon as far as when to restart oral intake. Also discussed the possibility of her going to the [facility] where I know of a couple of facilities that can appropriately monitor the patient and administer the TPN however due to the necessity of follow-up with the surgeon this would become problematic because it is a [address] each way (I drive it every day) and this would take away from the facilities ability to provide the care and therapy that she would need to continue improving. Follow-up as an outpatient for removal of the ureteral stent. EC Fistula: Wound VAC is currently off. It appears that the fistula has indeed closed. She was visited by the surgeon (Dr. Phillips) today and he laid out a plan for further advancing her diet starting on to clear liquids and if she tolerates that then moving to full liquids. During this time she will continue to have TPN. If all goes well with the clear liquid trials starting on we could possibly discharge on May 24 which is a day after he would transition her to a full liquid diet. Follow up in wound clinic No nausea today No vomiting. Dehydration: IV normal saline today, will likely repeat this most every day until she is able to start clear liquids. Continue to monitor COPD: No respiratory distress. Hypertension: BP in good range, slightly on the lower side Hypoglycemia: Better glucose levels today, slightly high . We will continue to monitor, her glucose levels fluctuate frequently with the use of TPN. Continues on TPN, n.p.o. due to fistula. Continue daily lab checks for adjustment of TPN formula. Pre-albumin improved but still below normal. Constipation: Continue Senokot. Surgeon does not necessarily want multiple bowel meds being used due to the fistula. Have discussed with the patient not to strain Endurance: Improving but still not back to baseline. Phos normalized today - monitor Hypokalemia -low againf, replaced, continue to monitor Hypomagnesemia - Replace, monitor All records, vitals, labs and medications were reviewed. No other issues per patient, nursing or therapy. Objective - Exam Narrative Exam: MUSCULOSKELETAL SPECIALTY EXAM CONSTITUTIONAL: Well developed, well nourished, appropriately groomed RESPIRATORY: Clear to auscultation bilaterally, no increased work of breathing CARDIOVASCULAR: Regular Rate/ Rhythm, no swelling, edema or tenderness in BUE or BLE. All extremities warm. GI: + bowel sounds, soft, NTTP, nondistended. Abd wound with dressing, c/d/i. no signs of drainage today. INTEGUMENTARY: Normal, no lesion, rash, masses or bruising noted in extremities. MUSCULOSKELETAL: BUE and BLE normal without defect, crepitus, subluxation, effusion, arthritic changes or TTP. BUE 4/5, good ROM, with normal tone. BLE 4/5 good ROM, with normal tone NEURO: CN 2-12 grossly intact. Sensation intact in all extremities. No tremor noted in 4 extremities. POSTURE and GAIT: Sitting posture good. Balance appears reasonable with some loss of balance at times when attempting to reach for items. Gait ambulating with a rolling walker, no loss of balance but unsteady when I have observed her. Endurance is still a great limitation however is improving PSYCH: Alert, oriented x3, affect appears normal. Insight appears intact. - Constitutional Vitals: Vital Signs - 12hr 05/18/19 05/18/19 05/18/19 01:54 03:51 05:14 Temperature 98.2 F Pulse Rate 103 H Pulse Rate [ Anterior Bilateral Throughout] Respiratory 17 18 Rate Respiratory Rate [Anterior Bilateral Throughout] Blood Pressure 119/72 O2 Sat by Pulse 96 97 Oximetry 05/18/19 05/18/19 05/18/19 07:41 08:20 08:21 Temperature 97.8 F Pulse Rate 96 H Pulse Rate [ 110 H Anterior Bilateral Throughout] Respiratory 18 Rate Respiratory 20 Rate [Anterior Bilateral Throughout] Blood Pressure 104/67 O2 Sat by Pulse 100 100 Oximetry - Allied health notes Allied health notes reviewed: nursing, PT, OT FIMS assessment as documented by PT/OT/ST: Toileting Toileting Device Commode over Toilet Patient able to: Adjust clothes before,Clean self,Adjust clothes after Patient able to perform: 3/3 (100%) Toileting FIM Score 6. Modified [place] (Needs equip. or prosth ./orth.) Transfers Toilet Transfers FIM Score 6. Modified [place] (Uses device, special seat or more time.) Locomotion- walk/wheelchair Ambulation Distance 68 Dressing-Upper body Patient retrieves clothing Yes items: Upper Body Dressing FIM Score 7. Complete [place] (Dresses self. Gets own clothes.) Dressing-lower body Patient retrieves clothing Yes items: Lower Body Dressing FIM Score 7. Complete [place] (Dresses self. Gets own clothes.) - Labs CBC & Chem 7: 05/17/19 08:23 05/18/19 05:43 Labs: Laboratory Results - last 72 hr 05/15/19 05/16/19 05/16/19 17:53 00:00 06:05 WBC RBC Hgb Hct MCV MCH MCHC RDW Plt Count Sodium Potassium Chloride Carbon Dioxide Anion Gap BUN Creatinine Estimated GFR BUN/Creatinine Ratio Glucose POC Glucose 111 H 178 H 110 H Calcium Phosphorus Magnesium 05/16/19 05/16/19 05/16/19 09:06 09:06 11:28 WBC 10.3 RBC 3.39 L Hgb 8.9 L Hct 28.0 L MCV 83 MCH 26 L MCHC 32 RDW 16.6 H Plt Count 369 Sodium 140 Potassium 3.7 Chloride 101.0 Carbon Dioxide 26 Anion Gap 17 BUN 16 Creatinine 0.4 L Estimated GFR > 60 BUN/Creatinine Ratio 40 Glucose 105 H POC Glucose 74 Calcium 9.0 Phosphorus 3.40 D Magnesium 1.80 05/16/19 05/17/19 05/17/19 17:49 07:26 08:23 WBC 10.4 RBC 3.43 L Hgb 9.2 L Hct 28.4 L MCV 83 MCH 27 L MCHC 32 RDW 16.6 H Plt Count 376 Sodium Potassium Chloride Carbon Dioxide Anion Gap BUN Creatinine Estimated GFR BUN/Creatinine Ratio Glucose POC Glucose 116 H 100 Calcium Phosphorus Magnesium 05/17/19 05/17/19 05/17/19 08:23 11:32 17:13 WBC RBC Hgb Hct MCV MCH MCHC RDW Plt Count Sodium 141 Potassium 4.3 Chloride 102.7 Carbon Dioxide 26 Anion Gap 17 BUN 18 H Creatinine 0.4 L Estimated GFR > 60 BUN/Creatinine Ratio 45 Glucose 115 H POC Glucose 90 135 H Calcium 9.2 Phosphorus 3.50 Magnesium 1.80 05/17/19 05/18/19 05/18/19 23:41 05:43 06:50 WBC RBC Hgb Hct MCV MCH MCHC RDW Plt Count Sodium 140 Potassium 3.4 L D Chloride 101.9 Carbon Dioxide 24 Anion Gap 18 BUN 16 Creatinine 0.4 L Estimated GFR > 60 BUN/Creatinine Ratio 40 Glucose 128 H POC Glucose 212 H 175 H Calcium 9.0 Phosphorus 3.60 Magnesium 1.60 L 05/18/19 11:41 WBC RBC Hgb Hct MCV MCH MCHC RDW Plt Count Sodium Potassium Chloride Carbon Dioxide Anion Gap BUN Creatinine Estimated GFR BUN/Creatinine Ratio Glucose POC Glucose 219 H Calcium Phosphorus Magnesium Assessment and Plan Enterocutaneous fistula with wound VAC removed now: Maintain dressing, monitor output, continue TPN with sips and chips with meds. Hypertension: Continue medications and adjust as needed for normotension. Hold for hypotension. COPD with acute on chronic respiratory failure and hypoxia: Continue nebulizer treatments. Monitor for exacerbation. On oxygen at home Hypoglycemia: Intermittent, typically in the morning. Resolves with D50. Obstructive sleep apnea: Continue CPAP. Follow up with golf shoe spike assembler after discharge. Depression: Continue Cymbalta, monitor for improvement Anxiety: BuSpar, monitor for improvement Mild Pulmonary hypertension: As noted on prior echocardiogram. Apparently prior cardiomyopathy also seen on echocardiogram has resolved per review of cardiology notes Constipation: Continue medications monitor for regular bowel movements. Protein calorie malnutrition: Continue TPN with fat replacement, dietitian consult. Monitor prealbumin, 0.147 at last check. Anemia chronic disease: Continue to monitor, transfuse for hemoglobin less than 7. Dehydration: NS IVF as needed, monitor Nausea: medications available, has been a problem since starting TPN Hypokalemia and hypomagnesemia - replace as needed, continue to monitor Ureteral stent placed for transection of ureter, follow-up with urology after discharge for removal. Was able to discuss with Dr. Mccloud, she can follow-up up to 4 months after placement. ADL dysfunction: OT will work on improving ability to perform ADLs (including assistive devices) to increase independence and decrease caregiver burden and improve functional transfers and mobility training. Difficulty walking: PT will work on gait training and proper use of assistive devices and advance as appropriate to use of stairs and outside ambulation on uneven surfaces. Unsteadiness on feet: PT will work on improving static and dynamic sitting and standing balance as well as proper use of assistive devices to decrease risk of falls. Abnormality of gait: PT will work to improve safety and efficiency of gait through neuromotor training and gait training along with instruction on proper use of assistive devices. Muscle weakness: PT & OT will work on strengthening exercises to improve functional strength including mixture of closed and open kinetic chain exercises. Debility: PT & OT will work on improving overall functional status to improve participation with ADLs, mobility and social involvement. Fatigue: PT & OT will work on improving endurance through aerobic exercises and therapeutic activity while monitoring patients tolerance for activity and vital signs as needed. DVT ppx: Lovenox Pain: Continue physical modalities in therapy and pain medications as needed to achieve functional pain control. Sleep: Monitor and address as needed. Bowel: Monitor and address as needed. Appetite: Monitor and address as needed. Discharge planning: Pending therapy progress and care plan meeting. Will continue discussion with therapy team, SW, patient and family. If we can keep her for a little longer we may be able to get her safe enough to return home in a safe manner without increased risk of complications and return to hospital, especially now that we are planning to advance her oral intake per the surgeon on , May 20, as well as on FridayMay 23 if all goes well. Restrictions/ Precautions: Falls WB status: FWB Functional Hx: ADLs: Independent Cognition: Independent Mobility: rollator MOD I Barriers to Discharge: Decreased mobility and ability to perform self care, balance deficits, weakness Estimated Length of Stay: 18-25 days Discharge Destination: Home with family
[2019-05-18] MEDS: SIMETHICONE 80 MG CHEW TAB PO PRN (12:37)
[2019-05-18] MEDS ORDERED: TOTAL PARENTERAL NUTRITION 1,560 ML IV SCH (20:00)
[2019-05-18] MEDS: MONTELUKAST 10 MG TAB PO SCH (22:49)
[2019-05-19] MEDS: OCTREOTIDE 100 MCG/1 ML INJ SUB-Q SCH ×3 (05:23→22:44)
[2019-05-19 07:50] LABS: BUN/Creatinine Ratio 30; Blood Urea Nitrogen 15 mg/dL (7-17); Calcium 9.1 mg/dL (8.4-10.2); Hemolysis Index 4
[2019-05-19] MEDS: predniSONE 10 MG TAB PO SCH (11:04)
[2019-05-19] MEDS: PANTOPRAZOLE 40 MG TAB PO SCH ×2 (11:04→22:44)
[2019-05-19] MEDS: oxyCODONE /ACETAMINOPHEN 5-325MG TAB PO PRN ×2 (11:04→22:49)
[2019-05-19] MEDS: SENNOSIDES 8.6 MG TAB PO SCH ×2 (11:05→22:49)
[2019-05-19] MEDS: DULoxetine 30 MG CAP PO SCH (11:05)
[2019-05-19] MEDS: guaiFENesin ER 600 MG TAB PO SCH ×2 (11:05→22:44)
[2019-05-19] MEDS: SIMETHICONE 80 MG CHEW TAB PO PRN (11:05)
[2019-05-19] MEDS: busPIRone 10 MG TAB PO SCH ×2 (11:08→22:44)
[2019-05-19] MEDS: IPRATROPIUM/ALBUTEROL SULFATE 3 ML AMPUL.NEB IH SCH ×2 (11:54→21:17)
[2019-05-19] MEDS: ENOXAPARIN 40 MG/0.4 ML INJ SUB-Q SCH (13:28)
--- NOTE | 2019-05-19 14:48 | Progress Note ---
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 She was previously discharged from the hospital in March after a complicated course in which she underwent a sigmoid resection with a colovaginal fistula takedown complicated by right ureteral injury. She underwent wound VAC placed adjacent along with IV antibiotics and after being discharged home noted that the wound VAC was not working well causing increased drainage and increased abdominal pain. 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 Plan is to treat with bowel rest and TPN with allowable sips and chips for taking meds. She developed leukocytosis and infectious disease was consulted which agreed with continuing levofloxacin and metronidazole. Also concern for possible cellulitis versus skin irritation at the wound VAC site. She also developed a UTI which was treated. Leukocytosis has improved with antibiotic and is almost normalized. Patient was seen by therapy and felt to be a good rehabilitation candidate. After she was medically stabilized she was transferred for further rehabilitation. Interval History Patient is participating in therapy and making reasonable progress. Taking rest breaks as needed. +BM . Denies pain, palpitations, dyspnea, cough, N/V, or joint pain. Rationale for extended rehabilitation stay: I was able to discuss with the insurance company the prospect of the patient staying longer than her current discharge date of 05/14. They seem to think that the idea is sound and would like to not have her bounce back and forth to the hospital if possible. The discussion I had with her insurance company follows my discussion with her the previous day as noted below. Insurance company asked that we submit updated notes on May 15 to see about an extension of time. Discussed with patient that the primary location I was looking at for penitentiary facility placement does not accept her particular insurance. Unfortunately there are few facilities that would be able to provide the higher level of care that she is needing with her TPN, close lab monitoring, frequent hypoglycemia, and possibility of going back to a wound VAC. Previously she was discharged home with the TPN, fistula and with home health, however they also were unable to appropriately manage her condition and she ended up getting worse and required readmission to the hospital. After discussing with her, I would prefer to be able to keep her here where we can closely monitor her, ensure that her medications, labs, TPN are being properly provided and continue to improve her functioning from a therapy standpoint in order to possibly get her discharged home in a safe manner. There is also a possibility if her fistula is truly closing up as we are hoping that she may also be able to revert to oral intake of liquids which would be reasonable to stop the TPN at that point. Obviously this will be deferred to the surgeon as far as when to restart oral intake. Also discussed the possibility of her going to the [facility] where I know of a couple of facilities that can appropriately monitor the patient and administer the TPN however due to the necessity of follow-up with the surgeon this would become problematic because it is a [address] each way (I drive it every day) and this would take away from the facilities ability to provide the care and therapy that she would need to continue improving. Follow-up as an outpatient for removal of the ureteral stent. EC Fistula: Wound VAC is currently off. It appears that the fistula has indeed closed. She was visited by the surgeon (Dr. Phillips) today and he laid out a plan for further advancing her diet starting on to clear liquids and if she tolerates that then moving to full liquids. During this time she will continue to have TPN. If all goes well with the clear liquid trials starting on we could possibly discharge on May 24 which is a day after he would transition her to a full liquid diet. Follow up in wound clinic No nausea today No vomiting. Dehydration: Continue to monitor, expect this to resolve being that she is now going to be started on clear liquid diet tomorrow. COPD: No respiratory distress. Continues on oxygen via nasal cannula Hypertension: BP in good range, slightly on the lower side Hypoglycemia: Better glucose levels today, slightly high . We will continue to monitor, her glucose levels fluctuate frequently with the use of TPN. Continues on TPN, n.p.o. due to fistula. Continue daily lab checks for adjustment of TPN formula. Pre-albumin improved but still below normal. Constipation: Continue Senokot. Surgeon does not necessarily want multiple bowel meds being used due to the fistula. Have discussed with the patient not to strain Endurance: Improving but still not back to baseline. Phos normalized today - monitor Hypokalemia continue to monitor Hypomagnesemia - monitor All records, vitals, labs and medications were reviewed. No other issues per patient, nursing or therapy. Objective - Exam Narrative Exam: MUSCULOSKELETAL SPECIALTY EXAM CONSTITUTIONAL: Well developed, well nourished, appropriately groomed RESPIRATORY: Clear to auscultation bilaterally, no increased work of breathing CARDIOVASCULAR: Regular Rate/ Rhythm, no swelling, edema or tenderness in BUE or BLE. All extremities warm. GI: + bowel sounds, soft, NTTP, nondistended. Abd wound with dressing, c/d/i. no signs of drainage today. INTEGUMENTARY: Normal, no lesion, rash, masses or bruising noted in extremities. MUSCULOSKELETAL: BUE and BLE normal without defect, crepitus, subluxation, effusion, arthritic changes or TTP. BUE 4/5, good ROM, with normal tone. BLE 4/5 good ROM, with normal tone NEURO: CN 2-12 grossly intact. Sensation intact in all extremities. No tremor noted in 4 extremities. POSTURE and GAIT: Sitting posture good. Balance appears reasonable with some loss of balance at times when attempting to reach for items. Gait ambulating with a rolling walker, no loss of balance but unsteady when I have observed her. Endurance is still a great limitation however is improving PSYCH: Alert, oriented x3, affect appears normal. Insight appears intact. - Constitutional Vitals: Vital Signs - 12hr 05/19/19 07:49 Temperature 98.8 F Pulse Rate 103 H Respiratory 18 Rate Blood Pressure 117/66 O2 Sat by Pulse 98 Oximetry - Allied health notes Allied health notes reviewed: nursing, PT, OT FIMS assessment as documented by PT/OT/ST: Toileting Toileting Device Commode over Toilet Patient able to: Adjust clothes before,Clean self,Adjust clothes after Patient able to perform: 3/3 (100%) Toileting FIM Score 6. Modified [place] (Needs equip. or prosth ./orth.) Transfers Mode of Locomotion: Walking Toilet Transfers FIM Score 7. Complete [place] (Walk: Sits/stands. W/ C :Approaches safely.) Locomotion- walk/wheelchair Ambulation Distance 68 Dressing-Upper body Patient retrieves clothing Yes items: Upper Body Dressing FIM Score 6. Modified [place] (Needs equipment, velcro or pros./orth.) Dressing-lower body Patient retrieves clothing Yes items: Lower Body Dressing FIM Score 6. Modified [place] (Needs equipment, velcro or pros./orth.) - Labs CBC & Chem 7: 05/17/19 08:23 05/20/19 07:02 Labs: Laboratory Results - last 72 hr 05/16/19 05/17/19 05/17/19 17:49 07:26 08:23 WBC 10.4 RBC 3.43 L Hgb 9.2 L Hct 28.4 L MCV 83 MCH 27 L MCHC 32 RDW 16.6 H Plt Count 376 Sodium Potassium Chloride Carbon Dioxide Anion Gap BUN Creatinine Estimated GFR BUN/Creatinine Ratio Glucose POC Glucose 116 H 100 Calcium Phosphorus Magnesium 05/17/19 05/17/19 05/17/19 08:23 11:32 17:13 WBC RBC Hgb Hct MCV MCH MCHC RDW Plt Count Sodium 141 Potassium 4.3 Chloride 102.7 Carbon Dioxide 26 Anion Gap 17 BUN 18 H Creatinine 0.4 L Estimated GFR > 60 BUN/Creatinine Ratio 45 Glucose 115 H POC Glucose 90 135 H Calcium 9.2 Phosphorus 3.50 Magnesium 1.80 05/17/19 05/18/19 05/18/19 23:41 05:43 06:50 WBC RBC Hgb Hct MCV MCH MCHC RDW Plt Count Sodium 140 Potassium 3.4 L D Chloride 101.9 Carbon Dioxide 24 Anion Gap 18 BUN 16 Creatinine 0.4 L Estimated GFR > 60 BUN/Creatinine Ratio 40 Glucose 128 H POC Glucose 212 H 175 H Calcium 9.0 Phosphorus 3.60 Magnesium 1.60 L 05/18/19 05/18/19 05/18/19 11:41 18:20 21:36 WBC RBC Hgb Hct MCV MCH MCHC RDW Plt Count Sodium Potassium Chloride Carbon Dioxide Anion Gap BUN Creatinine Estimated GFR BUN/Creatinine Ratio Glucose POC Glucose 219 H 114 H 154 H Calcium Phosphorus Magnesium 05/19/19 05/19/19 07:06 11:49 WBC RBC Hgb Hct MCV MCH MCHC RDW Plt Count Sodium 142 Potassium 3.9 Chloride 103.1 Carbon Dioxide 27 Anion Gap 16 BUN 15 Creatinine 0.5 L Estimated GFR > 60 BUN/Creatinine Ratio 30 Glucose 150 H POC Glucose 88 Calcium 9.1 Phosphorus 3.40 Magnesium 2.00 Assessment and Plan Enterocutaneous fistula with wound VAC removed now: Maintain dressing, monitor output, continue TPN with sips and chips with meds. Hypertension: Continue medications and adjust as needed for normotension. Hold for hypotension. COPD with acute on chronic respiratory failure and hypoxia: Continue nebulizer treatments. Monitor for exacerbation. On oxygen at home Hypoglycemia: Intermittent, typically in the morning. Resolves with D50. Obstructive sleep apnea: Continue CPAP. Follow up with water purifier after discharge. Depression: Continue Cymbalta, monitor for improvement Anxiety: BuSpar, monitor for improvement Mild Pulmonary hypertension: As noted on prior echocardiogram. Apparently prior cardiomyopathy also seen on echocardiogram has resolved per review of cardiology notes Constipation: Continue medications monitor for regular bowel movements. Protein calorie malnutrition: Continue TPN with fat replacement, dietitian consult. Monitor prealbumin, 0.147 at last check. Anemia chronic disease: Continue to monitor, transfuse for hemoglobin less than 7. Dehydration: NS IVF as needed, monitor Nausea: medications available, has been a problem since starting TPN Hypokalemia and hypomagnesemia - replace as needed, continue to monitor Ureteral stent placed for transection of ureter, follow-up with urology after discharge for removal. Was able to discuss with Dr. Mccloud, she can follow-up up to 4 months after placement. ADL dysfunction: OT will work on improving ability to perform ADLs (including assistive devices) to increase independence and decrease caregiver burden and improve functional transfers and mobility training. Difficulty walking: PT will work on gait training and proper use of assistive devices and advance as appropriate to use of stairs and outside ambulation on uneven surfaces. Unsteadiness on feet: PT will work on improving static and dynamic sitting and standing balance as well as proper use of assistive devices to decrease risk of falls. Abnormality of gait: PT will work to improve safety and efficiency of gait through neuromotor training and gait training along with instruction on proper use of assistive devices. Muscle weakness: PT & OT will work on strengthening exercises to improve func tional strength including mixture of closed and open kinetic chain exercises. Debility: PT & OT will work on improving overall functional status to improve participation with ADLs, mobility and social involvement. Fatigue: PT & OT will work on improving endurance through aerobic exercises and therapeutic activity while monitoring patients tolerance for activity and vital signs as needed. DVT ppx: Lovenox Pain: Continue physical modalities in therapy and pain medications as needed to achieve functional pain control. Sleep: Monitor and address as needed. Bowel: Monitor and address as needed. Appetite: Monitor and address as needed. Discharge planning: Pending therapy progress and care plan meeting. Will continue discussion with therapy team, SW, patient and family. If we can keep her for a little longer we may be able to get her safe enough to return home in a safe manner without increased risk of complications and return to hospital, especially now that we are planning to advance her oral intake per the surgeon on , May 20, as well as on FridayMay 23 if all goes well. Restrictions/ Precautions: Falls WB status: FWB Functional Hx: ADLs: Independent Cognition: Independent Mobility: rollator MOD I Barriers to Discharge: Decreased mobility and ability to perform self care, balance deficits, weakness Estimated Length of Stay: 18-25 days Discharge Destination: Home with family
[2019-05-19] MEDS ORDERED: TOTAL PARENTERAL NUTRITION 1,560 ML IV SCH (20:00)
[2019-05-19] MEDS: MONTELUKAST 10 MG TAB PO SCH (22:44)
[2019-05-20] MEDS: OCTREOTIDE 100 MCG/1 ML INJ SUB-Q SCH ×3 (06:41→21:20)
[2019-05-20 08:03] LABS: BUN/Creatinine Ratio 40; Blood Urea Nitrogen 16 mg/dL (7-17); Calcium 9.1 mg/dL (8.4-10.2); Hemolysis Index 0
[2019-05-20] MEDS: PANTOPRAZOLE 40 MG TAB PO SCH ×2 (08:33→21:19)
[2019-05-20] MEDS: oxyCODONE /ACETAMINOPHEN 5-325MG TAB PO PRN ×2 (08:33→21:19)
[2019-05-20] MEDS: SENNOSIDES 8.6 MG TAB PO SCH ×2 (08:33→22:19)
[2019-05-20] MEDS: guaiFENesin ER 600 MG TAB PO SCH ×2 (08:33→21:19)
[2019-05-20] MEDS: DULoxetine 30 MG CAP PO SCH (08:33)
[2019-05-20] MEDS: predniSONE 10 MG TAB PO SCH (08:34)
[2019-05-20] MEDS: ENOXAPARIN 40 MG/0.4 ML INJ SUB-Q SCH (08:34)
[2019-05-20] MEDS: busPIRone 10 MG TAB PO SCH ×2 (08:34→21:19)
--- NOTE | 2019-05-20 09:16 | Event Note ---
Date: 05/20/19 Patient reports that she enjoyed the clear liquid diet breakfast this morning. She had absolutely no problems. There is no drainage from the wound. She feels great. Recommend: 1) continue with clear liquid diet until Friday. If there is no drainage from the wound to suggest the fistula has reopened, will advance to full liquid diet on Friday. 2) continue TPN for now. If she is able to be advanced to full liquid diet on Friday and she does well on the full liquid diet for at least 1 week, then can D/C TPN. Please call with questions
[2019-05-20] MEDS: IPRATROPIUM/ALBUTEROL SULFATE 3 ML AMPUL.NEB IH SCH ×2 (12:14→20:34)
--- NOTE | 2019-05-20 13:32 | Progress Note ---
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 She was previously discharged from the hospital in March after a complicated course in which she underwent a sigmoid resection with a colovaginal fistula takedown complicated by right ureteral injury. She underwent wound VAC placed adjacent along with IV antibiotics and after being discharged home noted that the wound VAC was not working well causing increased drainage and increased abdominal pain. 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 Plan is to treat with bowel rest and TPN with allowable sips and chips for taking meds. She developed leukocytosis and infectious disease was consulted which agreed with continuing levofloxacin and metronidazole. Also concern for possible cellulitis versus skin irritation at the wound VAC site. She also developed a UTI which was treated. Leukocytosis has improved with antibiotic and is almost normalized. Patient was seen by therapy and felt to be a good rehabilitation candidate. After she was medically stabilized she was transferred for further rehabilitation. Interval History Patient is participating in therapy and making reasonable progress. Taking rest breaks as needed. +BM . Denies pain, palpitations, dyspnea, cough, N/V, or joint pain. Rationale for extended rehabilitation stay: I was able to discuss with the insurance company the prospect of the patient staying longer than her current discharge date of 05/14. They seem to think that the idea is sound and would like to not have her bounce back and forth to the hospital if possible. The discussion I had with her insurance company follows my discussion with her the previous day as noted below. Insurance company asked that we submit updated notes on May 15 to see about an extension of time. Discussed with patient that the primary location I was looking at for [facility]ci facility placement does not accept her particular insurance. Unfortunately there are few facilities that would be able to provide the higher level of care that she is needing with her TPN, close lab monitoring, frequent hypoglycemia, and possibility of going back to a wound VAC. Previously she was discharged home with the TPN, fistula and with home health, however they also were unable to appropriately manage her condition and she ended up getting worse and required readmission to the hospital. After discussing with her, I would prefer to be able to keep her here where we can closely monitor her, ensure that her medications, labs, TPN are being properly provided and continue to improve her functioning from a therapy standpoint in order to possibly get her discharged home in a safe manner. There is also a possibility if her fistula is truly closing up as we are hoping that she may also be able to revert to oral intake of liquids which would be reasonable to stop the TPN at that point. Obviously this will be deferred to the surgeon as far as when to restart oral intake. Also discussed the possibility of her going to the [facility] where I know of a couple of facilities that can appropriately monitor the patient and administer the TPN however due to the necessity of follow-up with the surgeon this would become problematic because it is a [address] way (I drive it every day) and this would take away from the facilities ability to provide the care and therapy that she would need to continue improving. Follow-up as an outpatient for removal of the ureteral stent. EC Fistula: Wound VAC is currently off. It appears that the fistula has indeed closed. She was visited by the surgeon (Dr. Phillips) today and he laid out a plan for further advancing her diet starting on to clear liquids and if she tolerates that then moving to full liquids. During this time she will continue to have TPN. If all goes well with the clear liquid trials starting on we could possibly discharge on May 24 which is a day after he would transition her to a full liquid diet. Follow up in wound clinic No nausea today No vomiting. Dehydration: Worse today, however hold off on IV fluids. Continue to monitor, expect this to resolve being that she is now on clear liquid diet. COPD: No respiratory distress. Continues on oxygen via nasal cannula Hypertension: BP in good range, slightly on the lower side Hypoglycemia: Better glucose levels today, slightly high . We will continue to monitor, her glucose levels fluctuate frequently with the use of TPN. Continues on TPN, n.p.o. due to fistula. Continue daily lab checks for adjustment of TPN formula. Pre-albumin improved but still below normal. Constipation: Continue Senokot. Surgeon does not necessarily want multiple bowel meds being used due to the fistula. Have discussed with the patient not to strain Endurance: Improving but still not back to baseline. Phos normalized today - monitor Hypokalemia continue to monitor Hypomagnesemia - monitor All records, vitals, labs and medications were reviewed. No other issues per patient, nursing or therapy. Patient discussed in team conference. She is making good progress from a rehabilitation standpoint. Still has some endurance issues and takes multiple rest breaks when doing anything that requires strenuous activity. Per Dr. Violetta worley's recommendations we will continue her on clear liquid diet until Friday and if there is still no drainage further then we will transition to a full liquid diet. TPN will be continued until 1 week after starting and tolerating the full liquid diet. At this point since she is tolerating the clear liquid diet, barring any problems that may pop up, we will look to discharge her on May 24. Over the next several days we will monitor and ensure that she can maintain her hydration status without needs of further IV fluids. Glucose will still need to be monitored on a regular basis until she is back on regular foods. At this point we have not heard back from the insurance company as to whether or not her extended stay will be approved. Objective - Exam Narrative Exam: MUSCULOSKELETAL SPECIALTY EXAM CONSTITUTIONAL: Well developed, well nourished, appropriately groomed RESPIRATORY: Clear to auscultation bilaterally, no increased work of breathing CARDIOVASCULAR: Regular Rate/ Rhythm, no swelling, edema or tenderness in BUE or BLE. All extremities warm. GI: + bowel sounds, soft, NTTP, nondistended. Abd wound with dressing, c/d/i. no signs of drainage today. INTEGUMENTARY: Normal, no lesion, rash, masses or bruising noted in extremities. MUSCULOSKELETAL: BUE and BLE normal without defect, crepitus, subluxation, effusion, arthritic changes or TTP. BUE 4+/5, good ROM, with normal tone. BLE 4+/5 good ROM, with normal tone NEURO: CN 2-12 grossly intact. Sensation intact in all extremities. No tremor noted in 4 extremities. POSTURE and GAIT: Sitting posture good. Balance appears reasonable with some loss of balance at times when attempting to reach for items. Gait ambulating with a WBQC, no loss of balance but unsteady when I have observed her. Endurance is still a great limitation however is improving PSYCH: Alert, oriented x3, affect appears normal. Insight appears intact. - Constitutional Vitals: Vital Signs - 12hr 05/20/ 07:28 Temperature 98.3 F Pulse Rate 94 H Respiratory 18 Rate Blood Pressure 94/61 O2 Sat by Pulse 100 Oximetry - Allied health notes Allied health notes reviewed: nursing, PT, OT FIMS assessment as documented by PT/OT/ST: Toileting Toileting Device Commode over Toilet Patient able to: Adjust clothes before,Clean self,Adjust clothes after Patient able to perform: 3/3 (100%) Toileting FIM Score 6. Modified [place] (Needs equip. or prosth ./orth.) Transfers Mode of Locomotion: Walking Toilet Transfers FIM Score 7. Complete [place] (Walk: Sits/stands. W/C :Approaches safely.) Locomotion- walk/wheelchair Ambulation Distance 68 Dressing-Upper body Patient retrieves clothing Yes items: Upper Body Dressing FIM Score 6. Modified [place] (Needs equipment, velcro or pros./orth.) Dressing-lower body Patient retrieves clothing Yes items: Lower Body Dressing FIM Score 6. Modified [place] (Needs equipment, velcro or pros./orth.) - Labs CBC & Chem 7: 05/17/19 08:23 05/21/19 06:57 Labs: Laboratory Results - last 72 hr 05/17/19 05/17/19 05/18/19 17:13 23:41 05:43 Sodium 140 Potassium 3.4 L D Chloride 101.9 Carbon Dioxide 24 Anion Gap 18 BUN 16 Creatinine 0.4 L Estimated GFR > 60 BUN/Creatinine Ratio 40 Glucose 128 H POC Glucose 135 H 212 H Calcium 9.0 Phosphorus 3.60 Magnesium 1.60 L 05/18/19 05/18/19 05/18/19 06:50 11:41 18:20 Sodium Potassium Chloride Carbon Dioxide Anion Gap BUN Creatinine Estimated GFR BUN/Creatinine Ratio Glucose POC Glucose 175 H 219 H 114 H Calcium Phosphorus Magnesium 05/18/19 05/19/19 05/19/19 21:36 07:06 11:49 Sodium 142 Potassium 3.9 Chloride 103.1 Carbon Dioxide 27 Anion Gap 16 BUN 15 Creatinine 0.5 L Estimated GFR > 60 BUN/Creatinine Ratio 30 Glucose 150 H POC Glucose 154 H 88 Calcium 9.1 Phosphorus 3.40 Magnesium 2.00 05/19/19 05/20/19 05/20/19 17:49 00:15 06:22 Sodium Potassium Chloride Carbon Dioxide Anion Gap BUN Creatinine Estimated GFR BUN/Creatinine Ratio Glucose POC Glucose 298 H 157 H 94 Calcium Phosphorus Magnesium 05/20/19 05/20/19 07:02 12:20 Sodium 143 Potassium 3.7 Chloride 103.5 Carbon Dioxide 25 Anion Gap 18 BUN 16 Creatinine 0.4 L Estimated GFR > 60 BUN/Creatinine Ratio 40 Glucose 52 L POC Glucose 126 H Calcium 9.1 Phosphorus 3.50 Magnesium 1.90 Assessment and Plan Enterocutaneous fistula with wound VAC removed now: Maintain dressing, monitor output, continue TPN with sips and chips with meds. Hypertension: Continue medications and adjust as needed for normotension. Hold for hypotension. COPD with acute on chronic respiratory failure and hypoxia: Continue nebulizer treatments. Monitor for exacerbation. On oxygen at home Hypoglycemia: Intermittent, typically in the morning. Resolves with D50. Obstructive sleep apnea: Continue CPAP. Follow up with aircraft designer after discharge. Depression: Continue Cymbalta, monitor for improvement Anxiety: BuSpar, monitor for improvement Mild Pulmonary hypertension: As noted on prior echocardiogram. Apparently prior cardiomyopathy also seen on echocardiogram has resolved per review of cardiology notes Constipation: Continue medications monitor for regular bowel movements. Protein calorie malnutrition: Continue TPN with fat replacement, dietitian consult. Monitor prealbumin, 0.147 at last check. Anemia chronic disease: Continue to monitor, transfuse for hemoglobin less than 7. Dehydration: NS IVF as needed, monitor Nausea: medications available, has been a problem since starting TPN Hypokalemia and hypomagnesemia - replace as needed, continue to monitor Ureteral stent placed for transection of ureter, follow-up with urology after discharge for removal. Was able to discuss with Dr. Mccloud, she can follow-up up to 4 months after placement. ADL dysfunction: OT will work on improving ability to perform ADLs (including assistive devices) to increase independence and decrease caregiver burden and improve functional transfers and mobility training. Difficulty walking: PT will work on gait training and proper use of assistive devices and advance as appropriate to use of stairs and outside ambulation on uneven surfaces. Unsteadiness on feet: PT will work on improving static and dynamic sitting and standing balance as well as proper use of assistive devices to decrease risk of falls. Abnormality of gait: PT will work to improve safety and efficiency of gait through neuromotor training and gait training along with instruction on proper use of assistive devices. Muscle weakness: PT & OT will work on strengthening exercises to improve functional strength including mixture of closed and open kinetic chain exercises. Debility: PT & OT will work on improving overall functional status to improve participation with ADLs, mobility and social involvement. Fatigue: PT & OT will work on improving endurance through aerobic exercises and therapeutic activity while monitoring patients tolerance for activity and vital signs as needed. DVT ppx: Lovenox Pain: Continue physical modalities in therapy and pain medications as needed to achieve functional pain control. Sleep: Monitor and address as needed. Bowel: Monitor and address as needed. Appetite: Monitor and address as needed. Discharge planning: Pending therapy progress and care plan meeting. Will continue discussion with therapy team, SW, patient and family. Still awaiting to hear back from the insurance company as to whether or not her extended stay w ill be approved. At this point we will look to discharge her on May 24 after she has started full liquid diet and prove that she can maintain hydration on her current liquid diet. Restrictions/ Precautions: Falls WB status: FWB Functional Hx: ADLs: Independent Cognition: Independent Mobility: rollator MOD I Barriers to Discharge: Decreased mobility and ability to perform self care, balance deficits, weakness Estimated Length of Stay: 18-25 days Discharge Destination: Home with family
[2019-05-20] MEDS: SIMETHICONE 80 MG CHEW TAB PO PRN ×2 (15:43→21:19)
[2019-05-20] MEDS ORDERED: TOTAL PARENTERAL NUTRITION 1,560 ML IV SCH (20:00)
[2019-05-20] MEDS: MONTELUKAST 10 MG TAB PO SCH (21:19)
[2019-05-20] MEDS: DEXTROSE 50% IN WATER (25GM) 50 ML SYRINGE IV PRN (21:29)
[2019-05-21] MEDS: OCTREOTIDE 100 MCG/1 ML INJ SUB-Q SCH ×3 (06:06→23:32)
[2019-05-21] MEDS: DEXTROSE 50% IN WATER (25GM) 50 ML SYRINGE IV PRN (06:51)
[2019-05-21 07:32] LABS: BUN/Creatinine Ratio 34; Blood Urea Nitrogen 17 mg/dL (7-17); Calcium 9.2 mg/dL (8.4-10.2); Hemolysis Index 12
[2019-05-21] MEDS: DULoxetine 30 MG CAP PO SCH (08:31)
[2019-05-21] MEDS: guaiFENesin ER 600 MG TAB PO SCH ×2 (08:31→23:11)
[2019-05-21] MEDS: predniSONE 10 MG TAB PO SCH (08:32)
[2019-05-21] MEDS: busPIRone 10 MG TAB PO SCH ×2 (08:32→23:12)
[2019-05-21] MEDS: oxyCODONE /ACETAMINOPHEN 5-325MG TAB PO PRN ×2 (08:32→20:33)
[2019-05-21] MEDS: PANTOPRAZOLE 40 MG TAB PO SCH ×2 (08:33→23:11)
[2019-05-21] MEDS: ENOXAPARIN 40 MG/0.4 ML INJ SUB-Q SCH (08:34)
--- NOTE | 2019-05-21 10:35 | Progress Note ---
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 She was previously discharged from the hospital in March after a complicated course in which she underwent a sigmoid resection with a colovaginal fistula takedown complicated by right ureteral injury. She underwent wound VAC placed adjacent along with IV antibiotics and after being discharged home noted that the wound VAC was not working well causing increased drainage and increased abdominal pain. 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 Plan is to treat with bowel rest and TPN with allowable sips and chips for taking meds. She developed leukocytosis and infectious disease was consulted which agreed with continuing levofloxacin and metronidazole. Also concern for possible cellulitis versus skin irritation at the wound VAC site. She also developed a UTI which was treated. Leukocytosis has improved with antibiotic and is almost normalized. Patient was seen by therapy and felt to be a good rehabilitation candidate. After she was medically stabilized she was transferred for further rehabilitation. Interval History Patient is participating in therapy and making reasonable progress. Taking rest breaks as needed. -BM . Denies pain, palpitations, dyspnea, cough, N/V, or joint pain. Discussed with the patient today her pending discharge. She will see if her can possibly come home to assist her with TPN after discharge. She will need to be on TPN for a week following that. We will also look and see if we can find a home health company that we will continue to monitor her on a regular basis along with labs to make sure that she is tolerating the TPN and that it is being correctly modified on a regular basis. She is unable to engineering group leader the TPN on her own one-handed and will need assistance. Her does work on the [facility] end of the [facility] and he would have to take off in order to be there to assist her with this. Other option would be to keep her for a few more days after she starts full liquids but I am not sure her insurance will approve that at this point. Follow-up as an outpatient for removal of the ureteral stent. EC Fistula: Wound VAC is currently off. It appears that the fistula has indeed closed. She was visited by the surgeon (Dr. Phillips) today and he laid out a plan for further advancing her diet starting on to clear liquids and if she tolerates that then moving to full liquids. During this time she will continue to have TPN. If all goes well with the clear liquid trials starting on we could possibly discharge on May 24 which is a day after he would transition her to a full liquid diet. Follow up in wound clinic. No nausea today No vomiting. Dehydration: Worse today, however hold off on IV fluids. Continue to monitor, expect this to resolve being that she is now on clear liquid diet. COPD: No respiratory distress. Continues on oxygen via nasal cannula Hypertension: BP in good range, slightly on the lower side Hypoglycemia: Hypoglycemic this morning <40 (values in the 20s were reported to me orally). We will continue to monitor, her glucose levels fluctuate frequently with the use of TPN. Continues on TPN, n.p.o. due to fistula. Continue daily lab checks for adjustment of TPN formula. Pre-albumin improved but still below normal. Constipation: Continue Senokot. Surgeon does not necessarily want multiple bowel meds being used due to the fistula. Have discussed with the patient not to strain Endurance: Improving but still not back to baseline. Phos normalized today - monitor Hypokalemia continue to monitor Hypomagnesemia - monitor All records, vitals, labs and medications were reviewed. No other issues per patient, nursing or therapy. Rationale for extended rehabilitation stay: I was able to discuss with the insurance company the prospect of the patient staying longer than her current discharge date of 05/14. They seem to think that the idea is sound and would like to not have her bounce back and forth to the hospital if possible. The discussion I had with her insurance company follows my discussion with her the previous day as noted below. Insurance company asked that we submit updated notes on May 15 to see about an extension of time. Discussed with patient that the primary location I was looking at for penitentiary facility placement does not accept her particular insurance. Unfortunately there are few facilities that would be able to provide the higher level of care that she is needing with her TPN, close lab monitoring, frequent hypoglycemia, and possibility of going back to a wound VAC. Previously she was discharged home with the TPN, fistula and with home health, however they also were unable to appropriately manage her condition and she ended up getting worse and required readmission to the hospital. After discussing with her, I would pr efer to be able to keep her here where we can closely monitor her, ensure that her medications, labs, TPN are being properly provided and continue to improve her functioning from a therapy standpoint in order to possibly get her discharged home in a safe manner. There is also a possibility if her fistula is truly closing up as we are hoping that she may also be able to revert to oral intake of liquids which would be reasonable to stop the TPN at that point. Obviously this will be deferred to the surgeon as far as when to restart oral intake. Also discussed the possibility of her going to the [facility] where I know of a couple of facilities that can appropriately monitor the pat ient and administer the TPN however due to the necessity of follow-up with the surgeon this would become problematic because it is a [address] way (I drive it every day) and this would take away from the facilities ability to provide the care and therapy that she would need to continue improving. Objective - Exam Narrative Exam: MUSCULOSKELETAL SPECIALTY EXAM CONSTITUTIONAL: Well developed, well nourished, appropriately groomed RESPIRATORY: Clear to auscultation bilaterally, no increased work of breathing CARDIOVASCULAR: Regular Rate/ Rhythm, no swelling, edema or tenderness in BUE or BLE. All extremities warm. GI: + bowel sounds, soft, NTTP, nondistended. Abd wound with dressing, c/d/i. no signs of drainage today. Positive flatus INTEGUMENTARY: Normal, no lesion, rash, masses or bruising noted in extremities. MUSCULOSKELETAL: BUE and BLE normal without defect, crepitus, subluxation, effusion, arthritic changes or TTP. BUE 4+/5, good ROM, with normal tone. BLE 4+/5 good ROM, with normal tone NEURO: CN 2-12 grossly intact. Sensation intact in all extremities. No tremor noted in 4 extremities. POSTURE and GAIT: Sitting posture good. Balance appears reasonable with some loss of balance at times when attempting to reach for items. Gait ambulating with a WBQC, no loss of balance but unsteady when I have observed her. Endurance is still a great limitation however is improving. She will be safer to discharge with a rolling walker at this point. PSYCH: Alert, oriented x3, affect appears normal. Insight appears intact. - Constitutional Vitals: Vital Signs - 12hr 05/21/19 05/21/19 01:00 07:23 Temperature 98.0 F Pulse Rate 96 H Respiratory 18 18 Rate Blood Pressure 98/62 O2 Sat by Pulse 9 L 100 Oximetry - Allied health notes Allied health notes reviewed: nursing, PT, OT FIMS assessment as documented by PT/OT/ST: Toileting Toileting Device Commode over Toilet Patient able to: Adjust clothes before,Clean self,Adjust clothes after Patient able to perform: 3/3 (100%) Toileting FIM Score 6. Modified Bland (Needs equip. or prosth ./orth.) Transfers Mode of Locomotion: Walking Toilet Transfers FIM Score 7. Complete Bland (Walk: Sits/stands. W/C :Approaches safely.) Locomotion- walk/wheelchair Ambulation Distance 68 Dressing-Upper body Patient retrieves clothing Yes items: Upper Body Dressing FIM Score 6. Modified Bland (Needs equipment, velcro or pros./orth.) Dressing-lower body Patient retrieves clothing Yes items: Lower Body Dressing FIM Score 6. Modified Bland (Needs equipment, velcro or pros./orth.) - Labs CBC & Chem 7: 05/17/19 08:23 05/21/19 06:57 Labs: Laboratory Results - last 72 hr 05/18/19 05/18/19 05/18/19 11:41 18:20 21:36 Sodium Potassium Chloride Carbon Dioxide Anion Gap BUN Creatinine Estimated GFR BUN/Creatinine Ratio Glucose POC Glucose 219 H 114 H 154 H Calcium Phosphorus Magnesium 05/19/19 05/19/19 05/19/19 07:06 11:49 17:49 Sodium 142 Potassium 3.9 Chloride 103.1 Carbon Dioxide 27 Anion Gap 16 BUN 15 Creatinine 0.5 L Estimated GFR > 60 BUN/Creatinine Ratio 30 Glucose 150 H POC Glucose 88 298 H Calcium 9.1 Phosphorus 3.40 Magnesium 2.00 05/20/19 05/20/19 05/20/19 00:15 06:22 07:02 Sodium 143 Potassium 3.7 Chloride 103.5 Carbon Dioxide 25 Anion Gap 18 BUN 16 Creatinine 0.4 L Estimated GFR > 60 BUN/Creatinine Ratio 40 Glucose 52 L POC Glucose 157 H 94 Calcium 9.1 Phosphorus 3.50 Magnesium 1.90 05/20/19 05/20/19 05/20/19 12:20 17:40 21:17 Sodium Potassium Chloride Carbon Dioxide Anion Gap BUN Creatinine Estimated GFR BUN/Creatinine Ratio Glucose POC Glucose 126 H 144 H 75 Calcium Phosphorus Magnesium 05/21/19 05/21/19 05/21/19 02:13 06:42 06:47 Sodium Potassium Chloride Carbon Dioxide Anion Gap BUN Creatinine Estimated GFR BUN/Creatinine Ratio Glucose POC Glucose 126 H < 40 L < 40 L Calcium Phosphorus Magnesium 05/21/19 05/21/19 06:57 07:35 Sodium 141 Potassium 3.5 L Chloride 101.6 Carbon Dioxide 24 Anion Gap 19 BUN 17 Creatinine 0.5 L Estimated GFR > 60 BUN/Creatinine Ratio 34 Glucose 181 H POC Glucose 109 H Calcium 9.2 Phosphorus 4.00 Magnesium 1.90 Assessment and Plan Enterocutaneous fistula with wound VAC removed now: Maintain dressing, monitor output, continue TPN with sips and chips with meds. Hypertension: Continue medications and adjust as needed for normotension. Hold for hypotension. COPD with acute on chronic respiratory failure and hypoxia: Continue nebulizer treatments. Monitor for exacerbation. On oxygen at home Hypoglycemia: Intermittent, typically in the morning. Resolves with D50. Obstructive sleep apnea: Continue CPAP. Follow up with blood bank laboratory technologist after discharge. Depression: Continue Cymbalta, monitor for improvement Anxiety: BuSpar, monitor for improvement Mild Pulmonary hypertension: As noted on prior echocardiogram. Apparently prior cardiomyopathy also seen on echocardiogram has resolved per review of cardiology notes Constipation: Continue medications monitor for regular bowel movements. Protein calorie malnutrition: Continue TPN with fat replacement, dietitian consult. Monitor prealbumin, 0.147 at last check. Anemia chronic disease: Continue to monitor, transfuse for hemoglobin less than 7. Dehydration: NS IVF as needed, monitor Nausea: medications available, has been a problem since starting TPN Hypokalemia and hypomagnesemia - replace as needed, continue to monitor Ureteral stent placed for transection of ureter, follow-up with urology after discharge for removal. Was able to discuss with Dr. Mccloud, she can follow-up up to 4 months after placement. ADL dysfunction: OT will work on improving ability to perform ADLs (including assistive devices) to increase independence and decrease caregiver burden and improve functional transfers and mobility training. Difficulty walking: PT will work on gait training and proper use of assistive devices and advance as appropriate to use of stairs and outside ambulation on uneven surfaces. Unsteadiness on feet: PT will work on improving static and dynamic sitting and standing balance as well as proper use of assistive devices to decrease risk of falls. Abnormality of gait: PT will work to improve safety and efficiency of gait through neuromotor training and gait training along with instruction on proper use of assistive devices. Muscle weakness: PT & OT will work on strengthening exercises to improve functional strength including mixture of closed and open kinetic chain exercises. Debility: PT & OT will work on improving overall functional status to improve participation with ADLs, mobility and social involvement. Fatigue: PT & OT will work on improving endurance through aerobic exercises and therapeutic activity while monitoring patients tolerance for activity and vital signs as needed. DVT ppx: Lovenox Pain: Continue physical modalities in therapy and pain medications as needed to achieve functional pain control. Sleep: Monitor and address as needed. Bowel: Monitor and address as needed. Appetite: Monitor and address as needed. Discharge planning: Pending therapy progress and care plan meeting. Will con tinue discussion with therapy team, SW, patient and family. Still awaiting to hear back from the insurance company as to whether or not her extended stay will be approved. At this point we will look to discharge her on May 24 after she has started full liquid diet and prove that she can maintain hydration on her current liquid diet. Restrictions/ Precautions: Falls WB status: FWB Functional Hx: ADLs: Independent Cognition: Independent Mobility: rollator MOD I Barriers to Discharge: Decreased mobility and ability to perform self care, balance deficits, weakness Estimated Length of Stay: 18-25 days Discharge Destination: Home with family
[2019-05-21] MEDS: SENNOSIDES 8.6 MG TAB PO SCH ×2 (12:31→23:11)
[2019-05-21] MEDS: SIMETHICONE 80 MG CHEW TAB PO PRN ×2 (12:35→20:33)
[2019-05-21] MEDS ORDERED: TOTAL PARENTERAL NUTRITION 1,560 ML IV SCH (20:00)
[2019-05-21] MEDS: MONTELUKAST 10 MG TAB PO SCH (20:33)
[2019-05-21] MEDS: IPRATROPIUM/ALBUTEROL SULFATE 3 ML AMPUL.NEB IH SCH ×2 (21:38→21:51)
[2019-05-22] MEDS: OCTREOTIDE 100 MCG/1 ML INJ SUB-Q SCH ×3 (05:53→21:32)
[2019-05-22] MEDS: DULoxetine 30 MG CAP PO SCH (08:02)
[2019-05-22] MEDS: guaiFENesin ER 600 MG TAB PO SCH ×2 (08:02→21:32)
[2019-05-22] MEDS: PANTOPRAZOLE 40 MG TAB PO SCH ×2 (08:02→21:32)
[2019-05-22] MEDS: ENOXAPARIN 40 MG/0.4 ML INJ SUB-Q SCH (08:02)
[2019-05-22 08:31] LABS: BUN/Creatinine Ratio 34; Blood Urea Nitrogen 17 mg/dL (7-17); Calcium 9.2 mg/dL (8.4-10.2); Hemolysis Index 0
[2019-05-22] MEDS: oxyCODONE /ACETAMINOPHEN 5-325MG TAB PO PRN ×2 (08:41→21:33)
[2019-05-22] MEDS: IPRATROPIUM/ALBUTEROL SULFATE 3 ML AMPUL.NEB IH SCH ×2 (09:20→19:53)
[2019-05-22] MEDS: SENNOSIDES 8.6 MG TAB PO SCH ×2 (12:00→21:32)
[2019-05-22] MEDS: busPIRone 10 MG TAB PO SCH ×2 (16:44→21:32)
[2019-05-22] MEDS: predniSONE 10 MG TAB PO SCH (16:45)
[2019-05-22] MEDS ORDERED: TOTAL PARENTERAL NUTRITION 1,560 ML IV SCH (20:00)
[2019-05-22] MEDS: MONTELUKAST 10 MG TAB PO SCH (21:32)
[2019-05-23] MEDS: OCTREOTIDE 100 MCG/1 ML INJ SUB-Q SCH ×3 (05:30→21:48)
[2019-05-23 07:13] LABS: BUN/Creatinine Ratio 40; Blood Urea Nitrogen 16 mg/dL (7-17); Calcium 9.2 mg/dL (8.4-10.2); Hemolysis Index 1
[2019-05-23] MEDS: IPRATROPIUM/ALBUTEROL SULFATE 3 ML AMPUL.NEB IH SCH ×2 (10:18→21:37)
[2019-05-23] MEDS: PANTOPRAZOLE 40 MG TAB PO SCH ×2 (10:59→21:48)
[2019-05-23] MEDS: DULoxetine 30 MG CAP PO SCH (10:59)
[2019-05-23] MEDS: oxyCODONE /ACETAMINOPHEN 5-325MG TAB PO PRN ×3 (11:00→22:01)
[2019-05-23] MEDS: guaiFENesin ER 600 MG TAB PO SCH ×2 (11:00→21:48)
[2019-05-23] MEDS: SIMETHICONE 80 MG CHEW TAB PO PRN (11:00)
[2019-05-23] MEDS: predniSONE 10 MG TAB PO SCH (11:00)
[2019-05-23] MEDS: ENOXAPARIN 40 MG/0.4 ML INJ SUB-Q SCH (11:01)
[2019-05-23] MEDS: SENNOSIDES 8.6 MG TAB PO SCH ×2 (11:01→21:48)
[2019-05-23] MEDS: busPIRone 10 MG TAB PO SCH ×2 (11:02→21:48)
[2019-05-23] MEDS ORDERED: TOTAL PARENTERAL NUTRITION 1,560 ML IV SCH ×2 (20:00)
[2019-05-23] MEDS: MONTELUKAST 10 MG TAB PO SCH (21:48)
[2019-05-24] MEDS: OCTREOTIDE 100 MCG/1 ML INJ SUB-Q SCH ×3 (05:22→21:12)
[2019-05-24 08:15] LABS: BUN/Creatinine Ratio 43; Blood Urea Nitrogen 17 mg/dL (7-17); Hemolysis Index 0
[2019-05-24] MEDS: IPRATROPIUM/ALBUTEROL SULFATE 3 ML AMPUL.NEB IH SCH ×2 (08:55→21:42)
[2019-05-24] MEDS: busPIRone 10 MG TAB PO SCH ×2 (09:15→21:12)
[2019-05-24] MEDS: guaiFENesin ER 600 MG TAB PO SCH ×2 (09:18→21:12)
[2019-05-24] MEDS: predniSONE 10 MG TAB PO SCH (09:18)
[2019-05-24] MEDS: ENOXAPARIN 40 MG/0.4 ML INJ SUB-Q SCH (09:18)
[2019-05-24] MEDS: DULoxetine 30 MG CAP PO SCH (09:18)
[2019-05-24] MEDS: oxyCODONE /ACETAMINOPHEN 5-325MG TAB PO PRN ×2 (09:19→21:19)
[2019-05-24] MEDS: PANTOPRAZOLE 40 MG TAB PO SCH ×2 (09:20→21:12)
[2019-05-24] MEDS: SENNOSIDES 8.6 MG TAB PO SCH ×2 (10:14→21:11)
--- NOTE | 2019-05-24 12:00 | Progress Note ---
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 She was previously discharged from the hospital in March after a complicated course in which she underwent a sigmoid resection with a colovaginal fistula takedown complicated by right ureteral injury. She underwent wound VAC placed adjacent along with IV antibiotics and after being discharged home noted that the wound VAC was not working well causing increased drainage and increased abdominal pain. 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 Plan is to treat with bowel rest and TPN with allowable sips and chips for taking meds. She developed leukocytosis and infectious disease was consulted which agreed with continuing levofloxacin and metronidazole. Also concern for possible cellulitis versus skin irritation at the wound VAC site. She also developed a UTI which was treated. Leukocytosis has improved with antibiotic and is almost normalized. Patient was seen by therapy and felt to be a good rehabilitation candidate. After she was medically stabilized she was transferred for further rehabilitation. Interval History Patient is participating in therapy and making reasonable progress. Taking rest breaks as needed. +BM . Denies palpitations, dyspnea, cough, N/V, or joint pain. Patient states that she has a pain across the mid back, has been present for past several days but worse today, worse with movements, madeline twisting and bending, and deep breaths, sharp, TTP, no associated dyspnea or desaturations noted. CXR ordered - No acute changes Follow-up as an outpatient for removal of the ureteral stent. EC Fistula: Discussed condition and discharge with surgeon this AM. He states she is doing very well on full liquid diet. Rec taper off of TPN and discharge home Friday with PICC with follow up in 1 week , earlier if any complications arise. Will ensure that she has not issues tolerating full liquids prior to discharge. High fiber diet and hydration post discharge. Appreciate Dr Phillips's assistance. No nausea today No vomiting. Dehydration: Resolved with oral intake. Continue to monitor, expect this to resolve being that she is now on clear liquid diet. COPD: No respiratory distress. Continues on oxygen via nasal cannula Hypertension: BP in good range, slightly on the lower side Hypoglycemia: We will continue to monitor, her glucose levels fluctuate frequently with the use of TPN. Continues on TPN Continue daily lab checks for adjustment of TPN formula. Pre- albumin improved but still below normal. Constipation: Continue Senokot. Surgeon does not necessarily want multiple bowel meds being used due to the fistula. Have discussed with the patient not to strain Endurance: Improving but still not back to baseline. Phos normalized today - monitor Hypokalemia continue to monitor Hypomagnesemia - monitor All records, vitals, labs and medications were reviewed. No other issues per patient, nursing or therapy. Objective - Exam Narrative Exam: MUSCULOSKELETAL SPECIALTY EXAM CONSTITUTIONAL: Well developed, well nourished, appropriately groomed RESPIRATORY: Clear to auscultation bilaterally, no increased work of breathing CARDIOVASCULAR: Regular Rate/ Rhythm, no swelling, edema or tenderness in BUE or BLE. All extremities warm. GI: + bowel sounds, soft, NTTP, nondistended. Abd wound with dressing, c/d/i. no signs of drainage today. Positive flatus INTEGUMENTARY: Normal, no lesion, rash, masses or bruising noted in extremities. MUSCULOSKELETAL: BUE and BLE normal without defect, crepitus, subluxation, effusion, arthritic changes or TTP. BUE 4+/5, good ROM, with normal tone. BLE 4+/5 good ROM, with normal tone TTP at mid back, no abnormalities visualized. NEURO: CN 2-12 grossly intact. Sensation intact in all extremities. No tremor noted in 4 extremities. POSTURE and GAIT: Sitting posture good. Balance appears reasonable with some loss of balance at times when attempting to reach for items. Gait ambulating with a WBQC, no loss of balance but unsteady when I have observed her. Endurance is still a great limitation however is improving. She will be safer to discharge with a rolling walker at this point. PSYCH: Alert, oriented x3, affect appears normal. Insight appears intact. - Constitutional Vitals: Vital Signs - 12hr 05/24/19 05/24/19 05/24/19 07:40 08:00 08:56 Temperature 98.0 F Pulse Rate 108 H Pulse Rate [ 107 H Anterior Bilateral Throughout] Respiratory 18 Rate Respiratory 17 Rate [Anterior Bilateral Throughout] Blood Pressure 124/70 O2 Sat by Pulse 100 100 Oximetry - Allied health notes Allied health notes reviewed: nursing, PT, OT FIMS assessment as documented by PT/OT/ST: Toileting Toileting Device Commode over Toilet Patient able to: Adjust clothes before,Clean self,Adjust clothes after Patient able to perform: 3/3 (100%) Toileting FIM Score 6. Modified [place] (Needs equip. or prosth ./orth.) Transfers Mode of Locomotion: Walking Toilet Transfers FIM Score 7. Complete [place] (Walk: Sits/stands. W/C :Approaches safely.) Locomotion- walk/wheelchair Ambulation Distance 68 Dressing-Upper body Patient retrieves clothing Yes items: Upper Body Dressing FIM Score 6. Modified [place] (Needs equipment, velcro or pros./orth.) Dressing-lower body Patient retrieves clothing Yes items: Lower Body Dressing FIM Score 6. Modified [place] (Needs equipment, velcro or pros./orth.) - Labs CBC & Chem 7: 05/17/19 08:23 05/25/19 06:50 Labs: Laboratory Results - last 72 hr 05/21/19 05/22/19 05/22/19 17:55 00:12 06:33 Sodium Potassium Chloride Carbon Dioxide Anion Gap BUN Creatinine Estimated GFR BUN/Creatinine Ratio Glucose POC Glucose 169 H 121 H 111 H Calcium Phosphorus Magnesium 05/22/19 05/22/19 05/22/19 06:49 12:20 18:08 Sodium 143 Potassium 4.1 Chloride 104.7 Carbon Dioxide 26 Anion Gap 16 BUN 17 Creatinine 0.5 L Estimated GFR > 60 BUN/Creatinine Ratio 34 Glucose 112 H POC Glucose 110 H 91 Calcium 9.2 Phosphorus 3.30 Magnesium 1.90 05/22/19 05/23/19 05/23/19 23:45 06:11 06:36 Sodium 139 Potassium 4.8 Chloride 104.4 Carbon Dioxide 25 Anion Gap 14 BUN 16 Creatinine 0.4 L Estimated GFR > 60 BUN/Creatinine Ratio 40 Glucose 139 H POC Glucose 243 H 106 H Calcium 9.2 Phosphorus 3.70 Magnesium 2.10 05/23/19 05/23/19 05/24/19 11:34 17:29 00:28 Sodium Potassium Chloride Carbon Dioxide Anion Gap BUN Creatinine Estimated GFR BUN/Creatinine Ratio Glucose POC Glucose 132 H 137 H 169 H Calcium Phosphorus Magnesium 05/24/19 05/24/19 06:31 06:54 Sodium 139 Potassium 3.9 Chloride 101.9 Carbon Dioxide 24 Anion Gap 17 BUN 17 Creatinine 0.4 L Estimated GFR > 60 BUN/Creatinine Ratio 43 Glucose 167 H POC Glucose 161 H Calcium 9.0 Phosphorus 3.90 Magnesium 1.90 - Imaging and cardiology Chest x-ray: report reviewed, image reviewed Assessment and Plan Enterocutaneous fistula with wound VAC removed now: Maintain dressing, monitor output, continue TPN with sips and chips with meds. Hypertension: Continue medications and adjust as needed for normotension. Hold for hypotension. Back pain - modalities, monitor COPD with acute on chronic respiratory failure and hypoxia: Continue nebulizer treatments. Monitor for exacerbation. On oxygen at home Hypoglycemia: Intermittent, typically in the morning. Resolves with D50. Obstructive sleep apnea: Continue CPAP. Follow up with sales and service officer after discharge. Depression: Continue Cymbalta, monitor for improvement Anxiety: BuSpar, monitor for improvement Mild Pulmonary hypertension: As noted on prior echocardiogram. Apparently prior cardiomyopathy also seen on echocardiogram has resolved per review of cardiology notes Constipation: Continue medications monitor for regular bowel movements. Protein calorie malnutrition: Continue TPN with fat replacement, dietitian consult. Monitor prealbumin, 0.147 at last check. Anemia chronic disease: Continue to monitor, transfuse for hemoglobin less than 7. Dehydration: NS IVF as needed, monitor Nausea: medications available, has been a problem since starting TPN Hypokalemia and hypomagnesemia - replace as needed, continue to monitor Ureteral stent placed for transection of ureter, follow-up with urology after discharge for removal. Was able to discuss with Dr. Mccloud, she can follow-up up to 4 months after placement. ADL dysfunction: OT will work on improving ability to perform ADLs (including assistive devices) to increase independence and decrease caregiver burden and improve functional transfers and mobility training. Difficulty walking: PT will work on gait training and proper use of assistive devices and advance as appropriate to use of stairs and outside ambulation on uneven surfaces. Unsteadiness on feet: PT will work on improving static and dynamic sitting and standing balance as well as proper use of assistive devices to decrease risk of falls. Abnormality of gait: PT will work to improve safety and efficiency of gait through neuromotor training and gait training along with instruction on proper use of assistive devices. Muscle weakness: PT & OT will work on strengthening exercises to improve functional strength including mixture of closed and open kinetic chain exercises. Debility: PT & OT will work on improving overall functional status to improve participation with ADLs, mobility and social involvement. Fatigue: PT & OT will work on improving endurance through aerobic exercises and therapeutic activity while monitoring patients tolerance for activity and vital signs as needed. DVT ppx: Lovenox Pain: Continue physical modalities in therapy and pain medications as needed to achieve functional pain control. Sleep: Monitor and address as needed. Bowel: Monitor and address as needed. Appetite: Monitor and address as needed. Discharge planning: Pending therapy progress and care plan meeting. Will continue discussion with therapy team, SW, patient and family. Still awaiting to hear back from the insurance company as to whether or not her extended stay will be approved. At this point we will look to discharge her on May 24 after she has started full liquid diet and prove that she can maintain hydration on her current liquid diet. Restrictions/ Precautions: Falls WB status: FWB Functional Hx: ADLs: Independent Cognition: Independent Mobility: rollator MOD I Barriers to Discharge: Decreased mobility and ability to perform self care, balance deficits, weakness Estimated Length of Stay: 18-25 days Discharge Destination: Home with family
--- NOTE | 2019-05-24 12:04 | Event Note ---
Date: 05/24/19 Patient appears to be doing very well. Tolerating clear liquid diet without any problems and has not had any recurrence of fistula drainage. I discussed with the patient, and later with Dr. Greene, that I think we should alter my initial plan. As she is doing so well, we may be able to discontinue her TPN tomorrow if she has absolutely no problems tolerating the full liquid diet today. I would still keep the PICC line for now in case we develop problems later. Both were in agreement with the suggestion. Therefore, our plan shall be: 1) full liquid diet today 2) if full liquid diet tolerated without any issues today, discontinue TPN tomorrow 3) keep PICC line for now even if TPN discontinued tomorrow 4) follow-up in the wound care center about 1 week after discharge from rehab 5) will be important to maintain high-fiber diet and good hydration after discharge 6) okay to discharge tomorrow from rehab from my perspective
--- NOTE | 2019-05-24 15:37 | XRay Report ---
CHEST 2 VIEWS INDICATION: Cough, congestion. COMPARISON: 04/23/2019 FINDINGS: Support devices: Right arm PICC remains in good position terminating in the lower SVC. Heart: Within normal limits. Lungs/pleura: No acute air space or interstitial disease. Moderate to severe emphysematous changes a re noted. No pleural effusion or pneumothorax. Additional findings: None. IMPRESSION: No acute findings. Advanced emphysema. Signer Name: Antonio Christie Jr, MD Signed: 05/24/2019 3:33 PM Workstation Name: [id number]
[2019-05-24] MEDS ORDERED: FAT EMULSIONS 20% 250 ML IV SCH (20:00)
[2019-05-24] MEDS ORDERED: TOTAL PARENTERAL NUTRITION 1,560 ML IV SCH (20:00)
[2019-05-24] MEDS: MONTELUKAST 10 MG TAB PO SCH (21:12)
[2019-05-24] MEDS: SIMETHICONE 80 MG CHEW TAB PO PRN (21:19)
[2019-05-25] MEDS: OCTREOTIDE 100 MCG/1 ML INJ SUB-Q SCH ×2 (05:17→16:10)
[2019-05-25] MEDS: oxyCODONE /ACETAMINOPHEN 5-325MG TAB PO PRN ×2 (06:23→08:08)
[2019-05-25 07:42] LABS: BUN/Creatinine Ratio 20; Blood Urea Nitrogen 12 mg/dL (7-17); Calcium 9.5 mg/dL (8.4-10.2); Hemolysis Index 41
[2019-05-25] MEDS: busPIRone 10 MG TAB PO SCH (07:55)
[2019-05-25] MEDS: guaiFENesin ER 600 MG TAB PO SCH (07:55)
[2019-05-25] MEDS: PANTOPRAZOLE 40 MG TAB PO SCH (07:55)
[2019-05-25] MEDS: DULoxetine 30 MG CAP PO SCH (07:55)
[2019-05-25] MEDS: predniSONE 10 MG TAB PO SCH (07:55)
[2019-05-25] MEDS: ENOXAPARIN 40 MG/0.4 ML INJ SUB-Q SCH (07:55)
[2019-05-25 08:32] VITALS: BP 109/66
[2019-05-25] MEDS: IPRATROPIUM/ALBUTEROL SULFATE 3 ML AMPUL.NEB IH SCH (08:40)
[2019-05-25] MEDS: SENNOSIDES 8.6 MG TAB PO SCH (08:44)
--- NOTE | 2019-05-25 13:49 | Discharge Summary ---
Providers - Providers Date of Admission: 04/30/19 20:18 Date of discharge: 05/25/19 Attending physician: LIN HERNANDEZ III, MD 04/30/19 20:18 Consult to Dietitian/Nutrition [CONS] Routine Physician Instructions: Reason For Exam: Reason for Consult: Write/Manage TPN/PPN Consult to Wound/ET Nurse [CONS] Routine Reason For Exam: wound eval Occupational Therapy Evaluate and Treat [CONS] Routine Comment: Reason For Exam: ADL dysfunction Physical Therapy Evaluation and Treat [CONS] Routine Comment: Reason For Exam: Mobility Dysfunction 04/30/19 20:21 Consult to Case Management [CONS] Routine Services Needed at Discharge: Home Health Services Notified:: cm notified 04/30/19 20:28 Consult to Dietitian/Nutrition [CONS] Routine Physician Instructions: Reason For Exam: Reason for Consult: Write/Manage TPN/PPN Primary care physician: LUIS NEWBY Hospitalization Reason for admission: 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 Advanced emphysema. No other acute findings. Hospital course: 58 yo female who presented to the ER with worsening abdominal pain. She was previously discharged from the hospital in March after a complicated course in which she underwent a sigmoid resection with a colovaginal fistula takedown complicated by right ureteral injury. She underwent wound VAC placed adjacent along with IV antibiotics and after being discharged home noted that the wound VAC was not working well causing increased drainage and increased abdominal pain. 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 Plan is to treat with bowel rest and TPN with allowable sips and chips for taking meds. She developed leukocytosis and infectious disease was consulted which agreed with continuing levofloxacin and metronidazole. Also concern for possible cellulitis versus skin irritation at the wound VAC site. She also developed a UTI which was treated. Leukocytosis has improved with antibiotic and is almost normalized. Patient was seen by therapy and felt to be a good rehabilitation candidate. After she was medically stabilized she was transferred for further rehabilitation. EC Fistula: Discussed condition and discharge with surgeon yesterday. He states she is doing very well on full liquid diet. Rec taper off of TPN and discharge home Friday with PICC with follow up in 1 week , earlier if any complications arise. Will ensure that she has not issues tolerating full liquids prior to discharge. High fiber diet and hydration post discharge. Appreciate Dr Phillips's assistance. No N/V or other issues overnight. Dehydration: Resolved with oral intake. Continue to monitor, expect this to resolve being that she is now on clear liquid diet. Phos elevated today -should normalize now that she is off TPN, monitor Hypokalemia resolved since starting oral intake, continue to monitor Hypomagnesemia resolved since starting oral intake, continue to monitor Hypoglycemia: Should normalize after stopping TPN. Protein calorie malnutrition: Last pre-albumin was still low but should normalize with further improvement in oral intake Back pain: Patient states that she has a pain across the mid back, has been present for past several days but worse yesterday, worse with movements, madeline twisting and bending, and deep breaths, sharp, TTP, no associated dyspnea or desaturations noted. CXR ordered - No acute changes. Aided a little bit with heat and Biofreeze. COPD: No respiratory distress. Continues on oxygen via nasal cannula Hypertension: BP in good range, slightly on the lower side Ureteral stent placed for transection of ureter, follow-up with urology after discharge for removal. Was able to discuss with Dr. Mccloud, she can follow-up up to 4 months after placement. Constipation: Continue Senokot. Surgeon does not necessarily want multiple bowel meds being used due to the fistula. Have discussed with the patient not to strain Endurance: Improving but still not back to baseline. Disposition: [id number]-06 HOME UNDER HOME [facility] Time spent for discharge: >38mins Core Measure Documentation - Palliative Care Palliative Care/ Comfort Measures: Not Applicable - Core Measures Any of the following diagnoses?: none Exam - Physical Exam Narrative exam: MUSCULOSKELETAL SPECIALTY EXAM CONSTITUTIONAL: Well developed, well nourished, appropriately groomed RESPIRATORY: Clear to auscultation bilaterally, no increased work of breathing CARDIOVASCULAR: Regular Rate/ Rhythm, no swelling, edema or tenderness in BUE or BLE. All extremities warm. GI: + bowel sounds, soft, NTTP, nondistended. Abd wound with dressing, c/d/i. no signs of drainage today, well-healed. INTEGUMENTARY: Normal, no lesion, rash, masses or bruising noted in extremities. MUSCULOSKELETAL: BUE and BLE normal without defect, crepitus, subluxation, effusion, arthritic changes or TTP. BUE 4+/5, good ROM, with normal tone. BLE 4+/5 good ROM, with normal tone TTP at mid back, no abnormalities visualized. NEURO: CN 2-12 grossly intact. Sensation intact in all extremities. No tremor noted in 4 extremities. POSTURE and GAIT: Sitting posture good. Balance appears reasonable with some loss of balance at times when attempting to reach for items. Gait ambulating with a WBQC, no loss of balance but unsteady when I have observed her. Endurance is still a great limitation however is improving. She will be safer to discharge with a rolling walker at this point. PSYCH: Alert, oriented x3, affect appears normal. Insight appears intact. - Constitutional Vitals: Temp Pulse Resp BP Pulse Ox 98.1 F 102 H 20 109/66 98 05/25/19 07:49 05/25/19 07:49 05/25/19 08:24 05/25/19 07:49 05/25/19 07:49 Plan Activity: advance as tolerated, fall precautions Diet: other (Full liquid diet, advance per Dr. Phillips) Wound: keep clean and dry, change dressing (Daily. Follow-up in wound clinic) Special Instructions: record daily BP diary, no heavy lifting, physical therapy, occupational therapy, home oxygen via (Nasal cannula), home health RN Durable Medical Equipment Needed Upon Discharge: Walker-Rolling Care Plan Goals: Patient will discharge home with her PICC as discussed with her surgeon Dr. Phillips. She will continue eating a full liquid diet with discontinuation of TPN at this point. If she develops any further issues she is to follow-up with Dr. Phillips immediately. Hopefully at her scheduled follow-up within a week she will be able to have the PICC line removed and possibly be further advanced by Dr. Phillips on her diet. Wound needs to be changed daily with a dry dressing. Follow up with: LUIS NEWBY MD [Primary Care Provider] - 7 Days KENNY PHILLIPS MD [Staff Physician] - 7 Days (Follow-up in wound clinic.) RICARDO MCCLOUD MD [Staff Physician] - 14 Days (Follow-up for ureteral stent removal.) HELADIO SANTANA MD [Staff Physician] - 7 Days Prescriptions: Montelukast [Singulair] 10 mg PO QHS #30 tablet busPIRone [Buspar] 5 mg PO BID #30 tablet DULoxetine [Cymbalta] 30 mg PO QDAY #30 capsule predniSONE [Deltasone] 10 mg PO QDAY #30 tablet oxyCODONE /ACETAMINOPHEN [Percocet 5/325 mg] 1 tab PO Q6H PRN #30 tablet PRN Reason: Pain, Moderate (4-6) Pantoprazole [Protonix TAB] 40 mg PO BID #60 tablet ALBUTEROL NEB's [Proventil 0.083% NEBS] 2.5 mg IH Q4HRT PRN #30 nebu PRN Reason: Shortness Of Breath Sennosides Tab [Senokot] 8.6 mg PO Q12H #60 tablet Ipratropium/Albuterol Sulfate [DUONEB *Not for PRN Use*] 1 ampul IH BIDRT #60 ampul.neb
[2019-05-25] MEDS ORDERED: OCTREOTIDE SUB-Q SCH (15:00)
== END 2019-05-25 16:45 | disposition home health service (06) | DRG 947 ==
LOC: UNDOADMIN 16:47 → 3A 16:47 → 3B 20:18
PROVIDERS: ADMIT Physical Medicine & Rehabilitation; ATTEND Physical Medicine & Rehabilitation
DX: R53.81 Other malaise (principal); J96.21 Acute and chronic respiratory failure with hypoxia; K63.2 Fistula of intestine; E46 Unspecified protein-calorie malnutrition; J44.9 Chronic obstructive pulmonary disease, unspecified; I10 Essential (primary) hypertension; G47.33 Obstructive sleep apnea (adult) (pediatric); F32.9 Major depressive disorder, single episode, unspecified; I27.20 Pulmonary hypertension, unspecified; D63.8 Anemia in other chronic diseases classified elsewhere; K21.9 Gastro-esophageal reflux disease without esophagitis; E86.0 Dehydration; E87.6 Hypokalemia; E83.42 Hypomagnesemia; E16.2 Hypoglycemia, unspecified; F41.9 Anxiety disorder, unspecified; Z90.49 Acquired absence of other specified parts of digestive tract; Z90.710 Acquired absence of both cervix and uterus; Z82.49 Family history of ischemic heart disease and other diseases of the circulatory system; Z88.0 Allergy status to penicillin; Z91.013 Allergy to seafood; Z79.899 Other long term (current) drug therapy; Z68.20 Body mass index [BMI] 20.0-20.9, adult
CPT/HCPCS: 36415; 71046; 80048; 80053; 82947; 82962; 83735; 84100; 84134; 84478; 85025; 85027; 94640; 94760; G0378; J1650; J1956; J2354; J2405; J2765; J2997; J3475; J3480; J7030; J7512

== ENCOUNTER 2019-05-28 09:50 | Outpatient (CLI) | payer BC ==
[2019-05-28] MEDS ORDERED: LIDOCAINE (4%) 40 MG/ML TOPICAL SOLN 50 ML BOTTLE TP ONE (13:44)
== END 2019-05-28 09:51 | disposition home or self-care (01) ==
LOC: WOUND 09:50
PROVIDERS: ATTEND Surgery
DX: T81.89XD Other complications of procedures, not elsewhere classified, subsequent encounter (principal); I10 Essential (primary) hypertension; J44.9 Chronic obstructive pulmonary disease, unspecified; Z90.710 Acquired absence of both cervix and uterus; Z87.891 Personal history of nicotine dependence; Y83.8 Other surgical procedures as the cause of abnormal reaction of the patient, or of later complication, without mention of misadventure at the time of the procedure
CPT/HCPCS: 11042; G0463; 99213

== ENCOUNTER 2019-06-04 10:41 | Outpatient (CLI) | payer BC | END 2019-06-04 10:42 | disposition home or self-care (01) | LOC: WOUND 10:41 | PROVIDERS: ATTEND Surgery | DX: T81.89XD Other complications of procedures, not elsewhere classified, subsequent encounter (principal); I10 Essential (primary) hypertension; J44.9 Chronic obstructive pulmonary disease, unspecified; Z90.710 Acquired absence of both cervix and uterus; Z87.891 Personal history of nicotine dependence; Y83.8 Other surgical procedures as the cause of abnormal reaction of the patient, or of later complication, without mention of misadventure at the time of the procedure | CPT/HCPCS: 99212; G0463 ==

== ENCOUNTER 2019-06-11 10:57 | Outpatient (CLI) | payer BC ==
[2019-06-11] MEDS ORDERED: LIDOCAINE (4%) 40 MG/ML TOPICAL SOLN 50 ML BOTTLE TP ONE (11:34)
[2019-06-11] MEDS ORDERED: SILVER NITRATE APPLICATOR 1 EA TP ONE (11:35)
== END 2019-06-11 10:58 | disposition home or self-care (01) ==
LOC: WOUND 10:57
PROVIDERS: ATTEND Surgery
DX: T81.89XD Other complications of procedures, not elsewhere classified, subsequent encounter (principal); I10 Essential (primary) hypertension; R54 Age-related physical debility; J44.9 Chronic obstructive pulmonary disease, unspecified; E44.0 Moderate protein-calorie malnutrition; Z90.710 Acquired absence of both cervix and uterus; Z87.891 Personal history of nicotine dependence; Y83.8 Other surgical procedures as the cause of abnormal reaction of the patient, or of later complication, without mention of misadventure at the time of the procedure
CPT/HCPCS: 17250

== ENCOUNTER 2020-11-13 08:49 | Observation (INO) | payer BC ==
[2020-11-13] MEDS ORDERED: ASPIRIN 325 MG TAB PO ONE (09:06)
[2020-11-13 09:41] LABS: Basophils % (Auto) 0.1 % (0.0-1.8); Eosinophils % (Auto) 0.1 % (0.0-4.3); Lymphocytes # (Auto) 2.1 K/mm3 (1.2-5.4); Lymphocytes % (Auto) 14.3 % (13.4-35.0); Mean Corpuscular HGB Conc 29 % (30-34); Mean Corpuscular Volume 76 fl (79-97); Monocytes # (Auto) 1.5 K/mm3 (0.0-0.8); Monocytes % (Auto) 10.3 % (0.0-7.3); Platelet Count 591 K/mm3 (140-440)
[2020-11-13 09:45] LABS: Alanine Aminotransferase 32 units/L (7-56); Blood Urea Nitrogen 19 mg/dL (7-17); Calcium 9.4 mg/dL (8.4-10.2); Hemolysis Index 0
--- NOTE | 2020-11-13 09:45 | XRay Report ---
CHEST 2 VIEWS INDICATION / CLINICAL INFORMATION: Chest pain, shortness of breath. COMPARISON: One view of the chest from 07/14/2020. FINDINGS: SUPPORT DEVICES: None. HEART / MEDIASTINUM: No significant abnormality. LUNGS / PLEURA: Bibasilar opacities are noted with small pleural effusions and/or scarring along the costophrenic angles. No pneumothorax. The upper lungs are clear. ADDITIONAL FINDINGS: No significant additional findings. IMPRESSION: Probable bibasilar atelectasis/scarring with small pleural effusions. Signer Name: Christiano Bonilla MD Signed: 11/13/2020 9:41 AM Workstation Name: [id number]
[2020-11-13 10:00] LABS: BUN/Creatinine Ratio 27
[2020-11-13 10:16] LABS: Hematocrit 25.1 % (30.3-42.9); Hemoglobin 7.3 gm/dl (10.1-14.3); Red Cell Distribution Width 20.5 % (13.2-15.2)
--- NOTE | 2020-11-13 22:19 | Emergency Department Report ---
ED Shortness of Breath HPI - General Chief Complaint: Dyspnea/Respdistress Stated Complaint: CP/SOB Time Seen by Provider: 11/13/20 21:37 Source: patient Mode of arrival: Wheelchair Limitations: Other - History of Present Illness Initial Comments: CC: shortness of breath, chest pain HPI: This is a 60 yo female with hx of COPD, chronic respiratory failure on 4-6 L NC, HTN, depression, alcohol abuse, tobacco abuse who presents with shortness of brreath, chest tightness, wheezing. SYmptoms have been present for several days. CUrrently taking 60 mg of Prednisone daily. Pulmologist Dr. Jauregui PCP Dr. Yepez. Complaint: shortness of breath, cough -: Gradual, days(s) (Several days) Severity: severe Consistency: constant Improves With: oxygen Known History Of: COPD - Related Data Home Medications Medication Instructions Recorded Confirmed Last Taken Escitalopram [Lexapro] 20 mg PO DAILY 01/19/20 07/15/20 07/13/20 09:00 Metoprolol [Lopressor TAB] 25 mg PO TIDAC 01/20/20 07/15/20 07/13/20 21:00 AtorvaSTATin 10 mg PO 3XW 07/14/20 07/15/20 07/12/20 2100 Clopidogrel [Plavix] 75 mg PO QDAY 07/14/20 07/14/20 07/13/20 10:00 Previous Rx's Medication Instructions Recorded Last Taken Type ALBUTEROL NEB's [Proventil 0.083% 2.5 mg IH Q4HRT PRN #30 nebu 05/25/19 07/13/20 21:00 Rx NEBS] DULoxetine [Cymbalta] 30 mg PO QDAY #30 capsule 05/25/19 07/13/20 09:00 Rx Montelukast [Singulair] 10 mg PO QHS #30 tablet 05/25/19 07/13/20 09:00 Rx Oxymetazoline 0.05% [Vicks Sinex] 2 spray NS Q12H PRN bottle 05/25/19 07/13/20 09:00 Rx Pantoprazole [Protonix TAB] 40 mg PO BID #60 tablet 05/25/19 07/13/20 09:00 Rx Sennosides Tab [Senokot] 8.6 mg PO Q12H #60 tablet 05/25/19 07/13/20 09:00 Rx busPIRone [Buspar] 5 mg PO BID #30 tablet 05/25/19 07/13/20 09:00 Rx guaiFENesin ER [Mucinex ER] 600 mg PO BID #60 tablet 05/25/19 07/14/20 09:00 Rx oxyCODONE /ACETAMINOPHEN [Percocet 1 tab PO Q6H PRN #30 tablet 05/25/19 07/13/20 09:00 Rx 5/325 mg] predniSONE 10 mg PO QDAY #30 tablet 05/25/19 07/13/20 09:00 Rx Ipratropium/Albuterol Sulfate 1 ampul IH BIDRT #60 ampul.neb 07/17/20 Unknown Rx [DUONEB *Not for PRN Use*] LORazepam [Ativan] 0.5 mg PO BID PRN #10 tab 07/17/20 Unknown Rx Prednisone [predniSONE 10 mg 10 mg PO .TAPER #1 tab.ds.pk 07/17/20 Unknown Rx (6-Day Pack, 21 Tabs)] Allergies Allergy/AdvReac Type Severity Reaction Status Date / Time albuterol [From Combivent] Allergy Shortness Verified 11/13/20 08:55 of Breath ipratropium [From Atrovent] Allergy Unknown Verified 11/13/20 08:53 Penicillins Allergy Unknown Verified 11/13/20 08:53 lactose AdvReac Unknown Verified 11/13/20 08:53 shellfish derived AdvReac Swelling Verified 11/13/20 08:53 Tea Allergy Itching Uncoded 07/16/20 19:49 ED Review of Systems ROS: Stated complaint: CP/SOB Other details as noted in HPI Comment: All other systems reviewed and negative Constitutional: denies: fever, malaise Respiratory: cough, shortness of breath, wheezing Cardiovascular: chest pain Gastrointestinal: denies: abdominal pain, nausea, vomiting ED Past Medical Hx - Past Medical History Previous Medical History?: Yes Hx Hypertension: Yes Hx Congestive Heart Failure: No Hx Diabetes: Yes Hx Deep Vein Thrombosis: No Hx GERD: Yes Hx Arthritis: Yes Hx Asthma: No Hx COPD: Yes Hx HIV: No Additional medical history: "leaky heart valve" high chol - Surgical History Past Surgical History?: Yes Hx Pacemaker: No Hx Internal Defibrillator: No Hx Appendectomy: Yes Additional Surgical History: hysterectomy - Social History Smoking Status: Former Smoker Substance Use Type: Alcohol - Medications Home Medications: Home Medications Medication Instructions Recorded Confirmed Last Taken Type ALBUTEROL NEB's [Proventil 0.083% 2.5 mg IH Q4HRT PRN #30 nebu 05/25/19 07/15/20 07/13/20 21:00 Rx NEBS] DULoxetine [Cymbalta] 30 mg PO QDAY #30 capsule 05/25/19 07/15/20 07/13/20 09:00 Rx Montelukast [Singulair] 10 mg PO QHS #30 tablet 05/25/19 07/15/20 07/13/20 09:00 Rx Oxymetazoline 0.05% [Vicks Sinex] 2 spray NS Q12H PRN bottle 05/25/19 07/15/20 07/13/20 09:00 Rx Pantoprazole [Protonix TAB] 40 mg PO BID #60 tablet 05/25/19 07/15/20 07/13/20 09:00 Rx Sennosides Tab [Senokot] 8.6 mg PO Q12H #60 tablet 05/25/19 07/15/20 07/13/20 09:00 Rx busPIRone [Buspar] 5 mg PO BID #30 tablet 05/25/19 07/15/20 07/13/20 09:00 Rx guaiFENesin ER [Mucinex ER] 600 mg PO BID #60 tablet 05/25/19 07/15/20 07/14/20 09:00 Rx oxyCODONE /ACETAMINOPHEN [Percocet 1 tab PO Q6H PRN #30 tablet 05/25/19 07/15/20 07/13/20 09:00 Rx 5/325 mg] predniSONE 10 mg PO QDAY #30 tablet 05/25/19 07/15/20 07/13/20 09:00 Rx Escitalopram [Lexapro] 20 mg PO DAILY 01/19/20 07/15/20 07/13/20 09:00 History Metoprolol [Lopressor TAB] 25 mg PO TIDAC 01/20/20 07/15/20 07/13/20 21:00 History AtorvaSTATin 10 mg PO 3XW 07/14/20 07/15/20 07/12/20 History 2100 Clopidogrel [Plavix] 75 mg PO QDAY 07/14/20 07/14/20 07/13/20 10:00 History Ipratropium/Albuterol Sulfate 1 ampul IH BIDRT #60 ampul.neb 07/17/20 Unknown Rx [DUONEB *Not for PRN Use*] LORazepam [Ativan] 0.5 mg PO BID PRN #10 tab 07/17/20 Unknown Rx Prednisone [predniSONE 10 mg 10 mg PO .TAPER #1 tab.ds.pk 07/17/20 Unknown Rx (6-Day Pack, 21 Tabs)] ED Physical Exam - General Limitations: No Limitations, Other General appearance: alert, in no apparent distress - Head Head exam: Present: atraumatic, normocephalic - Eye Eye exam: Present: normal appearance - ENT ENT exam: Present: mucous membranes moist - Neck Neck exam: Present: normal inspection, full ROM - Respiratory Respiratory exam: Present: wheezes, decreased breath sounds, prolonged expiratory. Absent: rales, rhonchi - Cardiovascular Cardiovascular Exam: Present: regular rate, normal rhythm, normal heart sounds. Absent: systolic murmur, diastolic murmur, rubs, gallop - GI/Abdominal GI/Abdominal exam: Present: soft. Absent: distended, tenderness, guarding, rebound - Extremities Exam Extremities exam: Present: pedal edema - Neurological Exam Neurological exam: Present: alert, oriented X3 - Psychiatric Psychiatric exam: Present: depressed, flat affect - Skin Skin exam: Present: warm, dry, intact, normal color. Absent: rash ED Course Vital Signs 11/13/20 11/13/20 08:58 08:59 Temperature 98.9 F 98.6 F Pulse Rate 76 75 Respiratory 20 36 H Rate Blood Pressure 179/152 Blood Pressure 179/152 [Right] O2 Sat by Pulse 100 100 Oximetry ED Medical Decision Making - Lab Data Result diagrams: 11/13/20 09:14 11/13/20 09:14 Laboratory Results - last 24 hr 11/13/20 11/13/20 11/13/20 09:14 09:14 09:16 WBC 14.7 H RBC 3.30 L Hgb 7.3 L Hct 25.1 L MCV 76 L MCH 22 L MCHC 29 L RDW 20.5 H Plt Count 591 H Lymph % (Auto) 14.3 [place] % (Auto) 10.3 H Eos % (Auto) 0.1 Baso % (Auto) 0.1 Lymph # (Auto) 2.1 [place] # (Auto) 1.5 H Eos # (Auto) 0.0 Baso # (Auto) 0.0 Seg Neutrophils % 75.2 H Seg Neutrophils # 11.1 H Sodium 142 Potassium 4.1 Chloride 98.7 Carbon Dioxide 39 H Anion Gap 8 BUN 19 H Creatinine 0.7 Estimated GFR > 60 BUN/Creatinine Ratio 27 Glucose 88 Calcium 9.4 Total Bilirubin < 0.20 AST 26 ALT 32 Alkaline Phosphatase 53 Troponin T < 0.010 NT-Pro-B Natriuret Pep 68.22 Total Protein 6.4 Albumin 4.0 Albumin/Globulin Ratio 1.7 11/13/20 11/13/20 12:20 17:06 WBC RBC Hgb Hct MCV MCH MCHC RDW Plt Count Lymph % (Auto) [place] % (Auto) Eos % (Auto) Baso % (Auto) Lymph # (Auto) [place] # (Auto) Eos # (Auto) Baso # (Auto) Seg Neutrophils % Seg Neutrophils # Sodium Potassium Chloride Carbon Dioxide Anion Gap BUN Creatinine Estimated GFR BUN/Creatinine Ratio Glucose Calcium Total Bilirubin AST ALT Alkaline Phosphatase Troponin T < 0.010 < 0.010 NT-Pro-B Natriuret Pep Total Protein Albumin Albumin/Globulin Ratio - EKG Data -: EKG Interpreted by Tn EKG shows normal: sinus rhythm, axis, intervals, ST-T waves Rate: normal - EKG Data 11/13/20 22:16 EKG obtained 09 EKG interpreted by tx Rate 75 bpm normal axis normal intervals no ST-T ischemia poor R wave progression anterior leads - Radiology Data Radiology results: report reviewed Chest 2 views: Probable bibasilar atelectatic scarring with small pleural effusions radiology impression - Medical Decision Making COPD exacerbation: Patient admitted to the hospital service for further treatment evaluation. Lab review: Troponin x3 negative, BNP within normal limits, CMP within normal limits CBC notable for reactive leukocytosis attributed to steroid use, patient also has anemia thrombocytosis Critical care attestation.: If time is entered above; I have spent that time in minutes in the direct care of this critically ill patient, excluding procedure time. ED Disposition Clinical Impression: COPD exacerbation, Chronic respiratory failure Disposition: ADMITTED INPATIENT Is pt being admited?: Yes Does the pt Need Aspirin: No Condition: Fair Instructions: Chronic Bronchitis (ED)
[2020-11-13] MEDS ORDERED: ONDANSETRON 4 MG/2 ML INJ IV PRN (22:36)
[2020-11-13] MEDS ORDERED: oxyCODONE /ACETAMINOPHEN 5-325MG TAB PO PRN (22:36)
[2020-11-13] MEDS ORDERED: ACETAMINOPHEN 325 MG TAB PO PRN (22:36)
[2020-11-13] MEDS ORDERED: SENNOSIDES 8.6 MG TAB PO PRN (22:36)
[2020-11-13] MEDS ORDERED: ALUM-MAG HYDROXIDE-SIMETHICONE 200-200-20MG/5ML ORAL LIQD 30 ML PO PRN (22:36)
[2020-11-13] MEDS ORDERED: MAGNESIUM HYDROXIDE (MOM) ORAL LIQD UDC PO PRN (22:36)
[2020-11-13] MEDS ORDERED: ALBUTEROL 2.5 MG/3 ML NEBU IH PRN (22:40)
[2020-11-13] MEDS ORDERED: hydrALAZINE 20 MG/1 ML INJ IV PRN (22:42)
--- NOTE | 2020-11-13 22:54 | History and Physical Report ---
History of Present Illness Date of examination: 11/13/20 Date of admission: 11/13/20 Chief complaint: Shortness of breath History of present illness: This is a 60 yo female with hx of COPD, chronic respiratory failure on 4-6 L NC, HTN, depression, alcohol abuse, tobacco abuse who presents with shortness of brreath, chest tightness, wheezing. SYmptoms have been present for several days. CUrrently taking 60 mg of Prednisone daily. Patient admits tobacco use but denies illicit drug use. Patient reports she smokes about half pack of tobacco daily. Discussed tobacco use cessation. Complication of tobacco use including cardiovascular and neoplasm syndrome of tobacco use explained to patient. Patient voiced understanding. Past History Past Medical History: anemia, COPD, GERD, heart failure, hypertension, hyperlipidemia Past Surgical History: appendectomy, hysterectomy, bowel surgery Social history: lives with family, smoking, full code Family history: diabetes, hypertension Medications and Allergies Allergies Allergy/AdvReac Type Severity Reaction Status Date / Time albuterol [From Combivent] Allergy Shortness Verified 11/13/20 08:55 of Breath ipratropium [From Atrovent] Allergy Unknown Verified 11/13/20 08:53 Penicillins Allergy Unknown Verified 11/13/20 08:53 lactose AdvReac Unknown Verified 11/13/20 08:53 shellfish derived AdvReac Swelling Verified 11/13/20 08:53 Tea Allergy Itching Uncoded 07/16/20 19:49 Home Medications Medication Instructions Recorded Confirmed Last Taken Type Clopidogrel [Plavix] 75 mg PO QDAY 11/14/20 11/14/20 Unknown History Duloxetine HCl 60 mg PO BID 11/14/20 11/14/20 Unknown History Ergocalciferol [Vitamin D2] 1 cap PO QWEEK 11/14/20 11/14/20 Unknown History Escitalopram Oxalate [Lexapro] 20 mg PO QDAY 11/14/20 11/14/20 Unknown History Metoprolol Tartrate 25 mg PO TID 11/14/20 11/14/20 Unknown History Montelukast [Singulair] 10 mg PO QPM 11/14/20 11/14/20 Unknown History Pantoprazole [Protonix] 40 mg PO BID 11/14/20 11/14/20 Unknown History Plecanatide [Trulance] 3 mg PO QDAY 11/14/20 11/14/20 Unknown History busPIRone [Buspar] 15 mg PO BID 11/14/20 11/14/20 Unknown History predniSONE [Deltasone] 20 mg PO QDAY 11/14/20 11/14/20 Unknown History Active Meds: Active Medications Acetaminophen (Acetaminophen 325 Mg Tab) 650 mg PO Q4H PRN PRN Reason: Pain MILD(1-3)/Fever >100.5/TOVAR Al Hydrox/Mg Hydrox/Simethicone (Alum-Mag Hydroxide-Simethicone [id number]/5ml Oral Liqd 30 Ml) 30 ml PO Q4H PRN PRN Reason: Indigestion Albuterol (Albuterol 2.5 Mg/3 Ml Nebu) 2.5 mg IH Q4HRT PRN PRN Reason: Shortness Of Breath Albuterol/Ipratropium (Ipratropium/Albuterol Sulfate 3 Ml Ampul.Neb) 1 ampul IH BIDRT [facility] Atorvastatin Calcium (Atorvastatin 10 Mg Tab) 10 mg PO 3XW [facility] Buspirone HCl (Buspirone 10 Mg Tab) 5 mg PO BID [facility] Clopidogrel Bisulfate (Clopidogrel 75 Mg Tab) 75 mg PO QDAY [facility] Duloxetine HCl (Duloxetine 30 Mg Cap) 30 mg PO QDAY BUTCH Escitalopram Oxalate (Escitalopram 10 Mg Tab) 20 mg PO DAILY [facility] Guaifenesin (Guaifenesin Er 600 Mg Tab) 600 mg PO BID [facility] Hydralazine HCl (Hydralazine 20 Mg/1 Ml Inj) 5 mg IV Q4HR PRN PRN Reason: Hypertension Magnesium Hydroxide (Magnesium Hydroxide (Mom) Oral Liqd Udc) 30 ml PO Q4H PRN PRN Reason: Constipation Metoprolol Tartrate (Metoprolol Tartrate 25 Mg Tab) 25 mg PO TIDAC BUT[facility] Montelukast Sodium (Montelukast 10 Mg Tab) 10 mg PO QHS [facility] Ondansetron HCl (Ondansetron 4 Mg/2 Ml Inj) 4 mg IV Q8H PRN PRN Reason: Nausea And Vomiting Oxycodone/Acetaminophen (Oxycodone /Acetaminophen 5-325mg Tab) 1 tab PO Q6H PRN PRN Reason: Pain, Moderate (4-6) Pantoprazole Sodium (Pantoprazole 40 Mg Tab) 40 mg PO BID [facility] Senna (Sennosides 8.6 Mg Tab) 8.6 mg PO Q12HR PRN PRN Reason: Constipation Sodium Chloride (Sodium Chloride 0.9% 10 Ml Flush Syringe) 10 ml IV PRN PRN PRN Reason: LINE FLUSH Review of Systems Constitutional: fatigue, weakness Ears, nose, mouth and throat: no epistaxis, no bleeding gums Cardiovascular: no shortness of breath Respiratory: cough, shortness of breath, dyspnea on exertion, sleep apnea, home oxygen Gastrointestinal: no melena Rectal: no itching, no hemorrhoids Musculoskeletal: muscle weakness Integumentary: no rash, no pruritis Psychiatric: no disorientation, no hallucinations Allergic/Immunologic: urticaria, allergic rhinitis Exam - Constitutional Vitals: Temp Pulse Resp BP Pulse Ox 98.6 F 75 36 H 179/152 100 11/13/20 08:59 11/13/20 08:59 11/13/20 08:59 11/13/20 08:59 11/13/20 08:59 General appearance: Present: mild distress, obese - EENT Eyes: Present: PERRL ENT: hearing intact, clear oral mucosa - Neck Neck: Present: supple, normal ROM - Respiratory Respiratory effort: normal Respiratory: bilateral: CTA, diminished - Cardiovascular Rhythm: regular Heart Sounds: Present: S1 & S2. Absent: rub, click - Extremities Extremities: pulses symmetrical, No edema Peripheral Pulses: within normal limits - Abdominal General gastrointestinal: Present: soft, non-tender, non-distended, normal bowel sounds Female genitourinary: Present: normal - Integumentary Integumentary: Present: clear, warm, dry - Musculoskeletal Musculoskeletal: gait normal, strength equal bilaterally - Psychiatric Psychiatric: appropriate mood/affect, intact judgment & insight - Neurologic Neurologic: CNII-XII intact, moves all extremities - Allied Health Allied health notes reviewed: nursing HEART Score - HEART Score Troponin: Troponin T < 0.010 ng/mL (0.00-0.029) 11/13/20 17:06 Results - Labs CBC & Chem 7: 11/14/20 05:07 11/14/20 05:07 Labs: Abnormal lab results 11/13/20 11/13/20 Range/Units 09:14 09:14 WBC 14.7 H (4.5-11.0) K/mm3 RBC 3.30 L (3.65-5.03) M/mm3 Hgb 7.3 L (10.1-14.3) gm/dl Hct 25.1 L (30.3-42.9) % MCV 76 L (79-97) fl MCH 22 L (28-32) pg MCHC 29 L (30-34) % RDW 20.5 H (13.2-15.2) % Plt Count 591 H (140-440) K/mm3 [place] % (Auto) 10.3 H (0.0-7.3) % [place] # (Auto) 1.5 H (0.0-0.8) K/mm3 Seg Neutrophils % 75.2 H (40.0-70.0) % Seg Neutrophils # 11.1 H (1.8-7.7) K/mm3 Carbon Dioxide 39 H (22-30) mmol/L BUN 19 H (7-17) mg/dL Assessment and Plan - Patient Problems (1) COPD exacerbation Current Visit: Yes Status: Acute Plan to address problem: Respiratory careABG, serial chest x-ray, oxygen supplement at 4 L nasal cannula Systemic steroid and bronchodilators Empiric antibiotics with Levaquin (2) Chronic respiratory failure Current Visit: Yes Status: Acute Plan to address problem: Patient with history of chronic respiratory failure Pulmonology consultfollow-up with plan of care Encourage the use of incentive spirometer (3) Leukocytosis Current Visit: No Status: Acute Qualifiers: Leukocytosis type: unspecified Qualified Code(s): D72.829 - Elevated white blood cell count, unspecified Plan to address problem: Blood culture x2 Continue empiric antibiotic (4) Obesity Current Visit: No Status: Acute Plan to address problem: Discussed lifestyle modification Healthy dietmore fruits and vegetables and avoid fried foods, animal fat, and foods rich in concentrated sweeteners. (5) Acute respiratory failure with hypoxia Current Visit: Yes Status: Acute Plan to address problem: Continue oxygen supplement (6) CHF (congestive heart failure) Current Visit: No Status: Acute Qualifiers: Heart failure type: systolic Plan to address problem: Continue cardioprotective measures Monitor blood pressureechocardiogram Antiplatelets, BB, and statin (7) Tobacco use Current Visit: Yes Status: Acute Plan to address problem: Discussed tobacco use cessation Cardiovascular and neoplasm syndrome of tobacco use explained to patient (8) Thrombocytosis Current Visit: Yes Status: Acute Plan to address problem: Monitor plt levels (9) Anemia Current Visit: No Status: Acute Qualifiers: Anemia type: unspecified type Qualified Code(s): D64.9 - Anemia, unspecified Plan to address problem: Monitor H/H iron and MVI supplement Will transfuse PRBCs if H/H is <7 (10) DVT prophylaxis Current Visit: Yes Status: Acute Plan to address problem: Subcutaneous Lovenox
[2020-11-14] MEDS ORDERED: IPRATROPIUM/ALBUTEROL SULFATE 3 ML AMPUL.NEB IH ONE (04:32)
[2020-11-14] MEDS: HYDROmorphone 1 MG/1 ML INJ IV PRN ×2 (05:15→08:26)
[2020-11-14 05:49] LABS: Basophils % (Auto) 0.1 % (0.0-1.8); Eosinophils # (Auto) 0.1 K/mm3 (0.0-0.4); Eosinophils % (Auto) 0.7 % (0.0-4.3); Lymphocytes # (Auto) 1.6 K/mm3 (1.2-5.4); Lymphocytes % (Auto) 9.8 % (13.4-35.0); Mean Corpuscular HGB Conc 30 % (30-34); Mean Corpuscular Volume 76 fl (79-97); Monocytes # (Auto) 1.4 K/mm3 (0.0-0.8); Monocytes % (Auto) 8.4 % (0.0-7.3); Platelet Count 654 K/mm3 (140-440); Red Blood Count 3.55 M/mm3 (3.65-5.03)
[2020-11-14 06:05] LABS: Alanine Aminotransferase 30 units/L (7-56); Albumin 4.1 g/dL (3.9-5); Blood Urea Nitrogen 22 mg/dL (7-17); Calcium 9.4 mg/dL (8.4-10.2); Hemolysis Index 2
[2020-11-14 06:10] LABS: BUN/Creatinine Ratio 37
[2020-11-14] MEDS: METOPROLOL TARTRATE 25 MG TAB PO SCH ×3 (07:53→16:14)
[2020-11-14] MEDS ORDERED: IPRATROPIUM/ALBUTEROL SULFATE 3 ML AMPUL.NEB IH SCH (08:00)
[2020-11-14] MEDS ORDERED: traMADol 50 MG TAB PO PRN (08:00)
[2020-11-14] MEDS: guaiFENesin ER 600 MG TAB PO SCH (09:57)
[2020-11-14] MEDS: DULoxetine 30 MG CAP PO SCH (09:57)
[2020-11-14] MEDS: FERROUS SULFATE 325 MG TAB PO SCH (09:57)
[2020-11-14] MEDS: CLOPIDOGREL 75 MG TAB PO SCH (09:57)
[2020-11-14] MEDS: FOLIC ACID 1 MG TAB PO SCH (09:57)
[2020-11-14] MEDS: PANTOPRAZOLE 40 MG TAB PO SCH (09:58)
[2020-11-14] MEDS: MULTIVITAMINS ,THERAPEUTIC TAB PO SCH (09:58)
[2020-11-14] MEDS ORDERED: predniSONE 20 MG TAB PO SCH (10:00)
--- NOTE | 2020-11-14 10:03 | Electrocardiograph Report ---
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
[2020-11-14] MEDS: ESCITALOPRAM 10 MG TAB PO SCH (10:18)
[2020-11-14] MEDS: busPIRone 10 MG TAB PO SCH (10:23)
[2020-11-14] MEDS: methylPREDNISolone Sod Succinate 40 MG/1 ML INJ IV SCH (16:07)
[2020-11-14] MEDS: AZITHROMYCIN/NS 500 MG/250 ML 500 MG/250 ML BAG IV SCH (16:07)
[2020-11-14] MEDS: ALBUTEROL 8.5 GM MDI INHALATION IH SCH (16:07)
--- NOTE | 2020-11-14 17:23 | Progress Note ---
Assessment and Plan (1) COPD exacerbation Current Visit: Yes Status: Acute Plan to address problem: Respiratory careABG, serial chest x-ray, oxygen supplement at 4 L nasal cannula Systemic steroid and bronchodilators Empiric antibiotics with Levaquin (2) Chronic respiratory failure Current Visit: Yes Status: Acute Plan to address problem: Patient with history of chronic respiratory failure on 4 L nasal cannula at home Pulmonology consultfollow-up with plan of care Encourage the use of incentive spirometer (3) Leukocytosis Current Visit: No Status: Acute Qualifiers: Leukocytosis type: unspecified Qualified Code(s): D72.829 - Elevated white blood cell count, unspecified Plan to address problem: Blood culture x2 Continue empiric antibiotic (4) Obesity Current Visit: No Status: Acute Plan to address problem: Discussed lifestyle modification Healthy dietmore fruits and vegetables and avoid fried foods, animal fat, and foods rich in concentrated sweeteners. (5) Acute respiratory failure with hypoxia Current Visit: Yes Status: Acute Plan to address problem: Continue oxygen supplement Due to COPD exacerbation We will also rule out Covid (6) CHF (congestive heart failure) Current Visit: No Status: Acute Qualifiers: Heart failure type: systolic Plan to address problem: Continue cardioprotective measures Monitor blood pressureechocardiogram Antiplatelets, BB, and statin (7) Tobacco use Current Visit: Yes Status: Acute Plan to address problem: Discussed tobacco use cessation Cardiovascular and neoplasm syndrome of tobacco use explained to patient (8) Thrombocytosis Current Visit: Yes Status: Acute Plan to address problem: Monitor plt levels (9) Anemia Current Visit: No Status: Acute Qualifiers: Anemia type: unspecified type Qualified Code(s): D64.9 - Anemia, unspecified Plan to address problem: Monitor H/H iron and MVI supplement Will transfuse PRBCs if H/H is <7 (10) DVT prophylaxis Current Visit: Yes Status: Acute Plan to address problem: Subcutaneous Lovenox Daily clinical course: 11/14/30; continue COPD protocol, will rule out for COVID, resume home meds Subjective Date of service: 11/14/20 Interval history: Patient seen and examined. Medical records and medication list reviewed. No acute event overnight noted by the RN. Patient complains of difficulty breathing even on minimal exertion. Patient is tolerating diet. Discussed plan of care at bedside with patient. Objective - Exam Narrative Exam: Limited physical exam due to COVID-19 pandemic to minimize transmission of the disease and to preserve PPE. Vital reviewed and stable. GENERAL: well-developed elderly obese -Citizen [place] female sitting on bed appeared to be in mild discomfort. HEENT: Normocephalic. Atraumatic. NECK: Supple. CHEST/LUNGS: breathing on 4 L nasal cannula HEART/CARDIOVASCULAR: Heart rate stable on telemetry ABDOMEN: Visibly not distended SKIN: There is no rash NEURO: No focal motor deficit. Follows command. MUSCULOSKELETAL: No joint effusion EXTRIMITY: No swelling, no cyanosis or clubbing. PSYCH: Cooperative. - Constitutional Vitals: Vital Signs - 12hr 11/14/20 11/14/20 11/14/20 07:24 07:52 07:53 Pulse Rate 71 73 78 Respiratory 18 13 Rate Blood Pressure 123/72 Blood Pressure 107/67 123/72 [Right] O2 Sat by Pulse 100 100 Oximetry 11/14/20 11/14/20 11/14/20 07:56 12:46 14:25 Pulse Rate 67 68 Respiratory 18 19 20 Rate Blood Pressure Blood Pressure 124/79 124/71 [Right] O2 Sat by Pulse 100 97 96 Oximetry 11/14/20 16:14 Pulse Rate 88 Respiratory Rate Blood Pressure 148/87 Blood Pressure [Right] O2 Sat by Pulse Oximetry - Labs CBC & Chem 7: 11/14/20 05:07 11/14/20 05:07 Labs: Abnormal lab results 11/14/20 11/14/20 11/14/20 Range/Units 05:07 05:07 05:07 WBC 16.1 H (4.5-11.0) K/mm3 RBC 3.55 L (3.65-5.03) M/mm3 Hgb 8.0 L (10.1-14.3) gm/dl Hct 27.0 L (30.3-42.9) % MCV 76 L (79-97) fl MCH 23 L (28-32) pg RDW 21.0 H (13.2-15.2) % Plt Count 654 H (140-440) K/mm3 Lymph % (Auto) 9.8 L (13.4-35.0) % [place] % (Auto) 8.4 H (0.0-7.3) % [place] # (Auto) 1.4 H (0.0-0.8) K/mm3 Seg Neutrophils % 81.0 H (40.0-70.0) % Seg Neutrophils # 13.1 H (1.8-7.7) K/mm3 Chloride 97.5 L (98-107) mmol/L Carbon Dioxide 39 H (22-30) mmol/L BUN 22 H (7-17) mg/dL Hemoglobin A1c 6.3 H (4-6) % HEART Score - HEART Score Troponin: Troponin T < 0.010 ng/mL (0.00-0.029) 11/13/20 17:06
[2020-11-14] MEDS ORDERED: traZODone 50 MG TAB PO PRN (22:00)
[2020-11-14] MEDS ORDERED: MONTELUKAST 10 MG TAB PO SCH (22:00)
[2020-11-15] MEDS: busPIRone 10 MG TAB PO SCH ×2 (01:14→11:39)
[2020-11-15] MEDS: PANTOPRAZOLE 40 MG TAB PO SCH ×2 (01:17→11:40)
[2020-11-15] MEDS: guaiFENesin ER 600 MG TAB PO SCH ×2 (01:17→11:39)
[2020-11-15] MEDS: methylPREDNISolone Sod Succinate 40 MG/1 ML INJ IV SCH ×3 (01:17→16:28)
[2020-11-15] MEDS: HYDROmorphone 1 MG/1 ML INJ IV PRN ×3 (04:37→14:36)
[2020-11-15] MEDS: METOPROLOL TARTRATE 25 MG TAB PO SCH ×3 (08:02→16:28)
[2020-11-15] MEDS ORDERED: PLECANATIDE 3 MG PO SCH (10:00)
[2020-11-15] MEDS: ALBUTEROL 8.5 GM MDI INHALATION IH SCH ×2 (11:26→11:28)
[2020-11-15] MEDS: FERROUS SULFATE 325 MG TAB PO SCH (11:39)
[2020-11-15] MEDS: DULoxetine 30 MG CAP PO SCH (11:39)
[2020-11-15] MEDS: ESCITALOPRAM 10 MG TAB PO SCH (11:39)
[2020-11-15] MEDS: CLOPIDOGREL 75 MG TAB PO SCH (11:39)
[2020-11-15] MEDS: FOLIC ACID 1 MG TAB PO SCH (11:39)
[2020-11-15] MEDS: MULTIVITAMINS ,THERAPEUTIC TAB PO SCH (11:40)
[2020-11-15] MEDS ORDERED: ENOXAPARIN 40 MG/0.4 ML INJ SUB-Q SCH ×2 (12:00→22:00)
--- NOTE | 2020-11-15 13:39 | Discharge Summary ---
Providers - Providers Date of Admission: 11/13/20 22:23 Date of discharge: 11/15/20 Attending physician: SUSY LUJAN 11/14/20 00:18 Consult to Physician [CONS] Routine Comment: Consulting Provider: HELADIO SANTANA Physician Instructions: Reason For Exam: copd Primary care physician: HOSPITAL STAFF PHARMACIST Hospitalization Condition: Fair Hospital course: This is a 60 yo female with hx of COPD, chronic respiratory failure on 4-6 L NC, HTN, depression, alcohol abuse, tobacco abuse who presents with shortness of brreath, chest tightness, wheezing. Patient was admitted to medical floor with scheduled nebs, iv abx, iv steroids and supplemental O2 to keep O2 sat at 94%. CXR showed no infiltrates. Patient was also tested for COVID-19. Patients symptom improved with medical management. Patient was then discharged home in stable condition with outpt f/u. Final Discharge Diagnosis (Prints w/discharge instructions): (1) COPD exacerbation. (2) Chronic respiratory failure. (3) Leukocytosis due to chronic steroid. (4) Obesity. (5) Acute respiratory failure with hypoxia. (6) CHF (congestive heart failure), diastolic. (7) Tobacco use. (8) Thrombocytosis. (9) Anemia. (10) Covid PUI Time spent for discharge: 34 minutes Core Measure Documentation - Palliative Care Palliative Care/ Comfort Measures: Not Applicable - Core Measures Any of the following diagnoses?: none Exam - Physical Exam Narrative exam: Limited physical exam due to COVID-19 pandemic to minimize transmission of the disease and to preserve PPE. Vital reviewed and stable. GENERAL: well-developed elderly obese -[place] female sitting on bed appeared to be in mild discomfort. HEENT: Normocephalic. Atraumatic. NECK: Supple. CHEST/LUNGS: breathing on 4 L nasal cannula HEART/CARDIOVASCULAR: Heart rate stable on telemetry ABDOMEN: Visibly not distended SKIN: There is no rash NEURO: No focal motor deficit. Follows command. MUSCULOSKELETAL: No joint effusion EXTRIMITY: No swelling, no cyanosis or clubbing. PSYCH: Cooperative. - Constitutional Vitals: Temp Pulse Resp BP Pulse Ox 98.6 F 80 20 127/73 99 11/13/20 08:59 11/15/20 11:40 11/15/20 06:45 11/15/20 08:11/15/20 09:35 Plan Activity: advance as tolerated Weight Bearing Status: Weight Bear as Tolerated Diet: low fat, low salt Special Instructions: home oxygen via (4L n/c ) Follow up with: PRIMARY CARE, [Primary Care Provider] - 7 Days Prescriptions: predniSONE [Deltasone] 20 mg PO QDAY #10
[2020-11-15 16:20] VITALS: BP 142/52
[2020-11-15] MEDS: AZITHROMYCIN/NS 500 MG/250 ML 500 MG/250 ML BAG IV SCH (16:28)
--- NOTE | 2020-11-15 17:51 | Event Note ---
Date: 11/15/20 Patient discharged home before I could evaluate her.
[2020-11-21] MEDS ORDERED: ERGOCALCIFEROL (VIT D2) 50,000 UNIT CAP PO SCH (10:00)
== END 2020-11-15 16:45 | disposition home or self-care (01) ==
LOC: ED 08:49 → 4A 22:23 → 3A 11-15 00:12
PROVIDERS: ADMIT Hospitalist; ATTEND Internal Medicine
DX: J96.01 Acute respiratory failure with hypoxia (principal); Z20.822 Contact with and (suspected) exposure to COVID-19; J96.10 Chronic respiratory failure, unspecified whether with hypoxia or hypercapnia; J44.1 Chronic obstructive pulmonary disease with (acute) exacerbation; I11.0 Hypertensive heart disease with heart failure; I50.30 Unspecified diastolic (congestive) heart failure; D72.829 Elevated white blood cell count, unspecified; D47.3 Essential (hemorrhagic) thrombocythemia; D64.9 Anemia, unspecified; E66.9 Obesity, unspecified; E78.5 Hyperlipidemia, unspecified; F10.10 Alcohol abuse, uncomplicated; Z72.0 Tobacco use; Z68.26 Body mass index [BMI] 26.0-26.9, adult; Z90.49 Acquired absence of other specified parts of digestive tract; Z90.710 Acquired absence of both cervix and uterus; Z79.899 Other long term (current) drug therapy; Z98.890 Other specified postprocedural states
CPT/HCPCS: 36415; 71046; 80053; 83036; 83880; 84484; 85025; 93005; 93306; 94760; 96365; 96366; 96372; 96375; 96376; 99285; G0378; J0456; J1170; J1650; J2405; J2920; J7512; U0003

== ENCOUNTER 2021-03-17 17:17 | Inpatient (IN) | payer BC ==
[2021-03-17] MEDS ORDERED: ETOMIDATE 20 MG/10 ML INJ IV ONE ×2 (17:22→18:00)
[2021-03-17] MEDS ORDERED: SUCCINYLCHOLINE CHLORIDE 200 MG/10 ML INJ MDV ONE (17:23)
[2021-03-17] MEDS ORDERED: LIP THERAPY VASELINE TP PRN (17:35)
[2021-03-17] MEDS ORDERED: MINERAL OIL/PETROLATUM, WHITE OPHTH OINT 3.5 GM OU PRN (17:35)
[2021-03-17] MEDS ORDERED: SODIUM CHLORIDE 0.9% 1000 ML 1,000 ML IV ONE ×2 (17:36→20:14)
--- NOTE | 2021-03-17 17:43 | Emergency Department Report ---
HPI - General Chief Complaint: Arrhythmia/Palpitations Time Seen by Provider: 03/17/21 17:34 - HPI HPI: 60-year-old -Cypriot female presents to the emergency department via EMS from home with the initial call for shortness of breath. EMS called reporting here saying that the patient was found to be in SVT with a heart rate of about 200 and uncontrolled blood pressure with a systolic blood pressure of about 200 as well. The patient was given 6 mg of adenosine without any change. The patient was then given 12 mg of adenosine with some mild improvement of the heart rate but then the heart rate appeared to be irregular. EMS also says the patient had decreased mentation in route. She arrived to our emergency department responsive only to painful stimuli. Once placed on the monitor the patient appears to be in atrial fibrillation with RVR. She is having shallow irregular bradypneic respirations. She has a past medical history of recurrent hypoxic respiratory failure, COPD oxygen dependent on 6 L via nasal cannula and BiPAP use at night, PAGE, CHF. The patient's placement specialist is Dr. Aldrich and her production supv is Dr Gage. ED Past Medical Hx - Past Medical History Hx Hypertension: Yes Hx Congestive Heart Failure: No Hx Diabetes: Yes Hx Deep Vein Thrombosis: No Hx GERD: Yes Hx Arthritis: Yes Hx Asthma: No Hx COPD: Yes Hx HIV: No Additional medical history: "leaky heart valve" high chol - Surgical History Hx Pacemaker: No Hx Internal Defibrillator: No Hx Appendectomy: Yes Additional Surgical History: hysterectomy - Social History Smoking Status: Former Smoker - Medications Home Medications: Home Medications Medication Instructions Recorded Confirmed Last Taken Type Ergocalciferol [Vitamin D2] 1 cap PO QWEEK 11/14/20 11/14/20 Unknown History Pantoprazole [Protonix TAB] 40 mg PO BID 11/14/20 11/14/20 Unknown History Plecanatide [Trulance] 3 mg PO QDAY 11/14/20 11/14/20 Unknown History AtorvaSTATin 10 mg PO QHS tablet 11/15/20 Unknown Rx Clopidogrel [Plavix] 75 mg PO QDAY tablet 11/15/20 Unknown Rx DULoxetine [Cymbalta] 30 mg PO QDAY capsule 11/15/20 Unknown Rx Escitalopram [Lexapro] 20 mg PO DAILY tablet 11/15/20 Unknown Rx Metoprolol [Lopressor TAB] 25 mg PO TIDAC tablet 11/15/20 Unknown Rx Montelukast [Singulair] 10 mg PO QHS tablet 11/15/20 Unknown Rx Pantoprazole [Protonix TAB] 40 mg PO BID tablet 11/15/20 Unknown Rx busPIRone [Buspar] 5 mg PO BID tablet 11/15/20 Unknown Rx guaiFENesin ER [Mucinex ER] 600 mg PO BID tablet 11/15/20 Unknown Rx predniSONE [Deltasone] 20 mg PO QDAY #10 11/15/20 Unknown Rx ED Review of Systems ROS: Stated complaint: CATALINA Other details as noted in HPI Comment: Unobtainable due to pts medical conditions Physical Exam - Physical Exam Physical Exam: GENERAL: The patient is ill-appearing and unresponsive. HENT: Normocephalic. Atraumatic. Patient has moist mucous membranes. EYES: Pupils equal reactive to light bilaterally. NECK: Supple. Trachea is midline. CHEST/LUNGS: Lung sounds are diminished bilaterally. Patient has shallow respirations and accessory muscle use. There is respiratory distress. HEART/CARDIOVASCULAR: Regular. There is severe tachycardia. ABDOMEN: Abdomen is soft, nontender. Patient has normal bowel sounds. There is no abdominal distention. SKIN: Skin is warm and dry. NEURO: Patient is lethargic and only responsive to painful stimuli. MUSCULOSKELETAL: There is no tenderness or deformity. ED Course - Consultations Consultation #1: 03/18/21 00:13 I spoke to the patient's production supv, Dr. Gage. He will be consulted both as the patient's production supv and director communications. He has asked for a repeat ABG and for the respiratory therapist to contact him with the results. - Intubation Time Out Performed: Yes Sedative: Etomidate Mg Given: 20 Paralytic: Succinylcholine Mg Given: 80 Laryngoscope: other ([place] scope) Size: 4 ET Tube Size: 7 Tube Secured Depth (cm): 24 Tube Secured Location: lips Tube Placement Confirmation: visualized tube passing t, equal breath sounds bilat, no breath sounds over epi, confirmation by capnometr Patient Tolerated Procedure: well Intubation Complications: none ED Medical Decision Making - Lab Data Result diagrams: 03/17/21 17:36 03/17/21 17:36 Lab Results 03/17/21 03/17/21 03/17/21 Range/Units 17:36 17:36 17:37 WBC 13.8 H (4.5-11.0) K/mm3 RBC 3.48 L (3.65-5.03) M/mm3 Hgb 7.0 L (10.1-14.3) gm/dl Hct 26.2 L (30.3-42.9) % MCV 75 L (79-97) fl MCH 20 L (28-32) pg MCHC 27 L (30-34) % RDW 25.4 H (13.2-15.2) % Plt Count 291 (140-440) K/mm3 Add Manual Diff Complete Total Counted 100 Seg Neuts % (Manual) 63.0 (40.0-70.0) % Band Neutrophils % 5.0 % Lymphocytes % (Manual) 24.0 (13.4-35.0) % Monocytes % (Manual) 4.0 (0.0-7.3) % Myelocytes % 1.0 % Promyelocytes % 3.0 % Nucleated RBC % 7.0 H (0.0-0.9) % Seg Neutrophils # Man 8.7 H (1.8-7.7) K/mm3 Band Neutrophils # 0.7 K/mm3 Lymphocytes # (Manual) 3.3 (1.2-5.4) K/mm3 Abs React Lymphs (Man) 0.0 K/mm3 Monocytes # (Manual) 0.6 (0.0-0.8) K/mm3 Eosinophils # (Manual) 0.0 (0.0-0.4) K/mm3 Basophils # (Manual) 0.0 (0.0-0.1) K/mm3 Metamyelocytes # 0.0 K/mm3 Myelocytes # 0.1 K/mm3 Promyelocytes # 0.4 K/mm3 Blast Cells # 0.0 K/mm3 WBC Morphology Not Reportable Hypersegmented Neuts Not Reportable Hyposegmented Neuts Not Reportable Hypogranular Neuts Not Reportable Smudge Cells Not Reportable Toxic Granulation Not Reportable Toxic Vacuolation Not Reportable Dohle Bodies Not Reportable Pelger-Huet Anomaly Not Reportable Florentino Rods Not Reportable Platelet Estimate Consistent w auto Clumped Platelets Not Reportable Plt Clumps, EDTA Not Reportable Large Platelets Few Giant Platelets Not Reportable Platelet Satelliting Not Reportable Plt Morphology Comment Not Reportable RBC Morphology Not Reportable Dimorphic RBCs Not Reportable Polychromasia Few Hypochromasia 3+ Poikilocytosis Not Reportable Anisocytosis 1+ Microcytosis 2+ Macrocytosis Not Reportable Spherocytes Not Reportable Pappenheimer Bodies Not Reportable Sickle Cells Not Reportable Target Cells Not Reportable Tear Drop Cells Not Reportable Ovalocytes 1+ Stomatocytes 1+ Helmet Cells Not Reportable [place] Bodies Not Reportable [place] Rings Not Reportable Marcelo Cells Not Reportable Bite Cells Not Reportable Crenated Cell Not Reportable Elliptocytes Not Reportable Acanthocytes (Spur) Not Reportable Rouleaux Not Reportable Hemoglobin C Crystals Not Reportable Schistocytes Not Reportable Malaria parasites Not Reportable Maykel Bodies Not Reportable Hem Pathologist Commnt No PT 12.6 (12.2-14.9) Sec. INR 0.85 L (0.87-1.13) APTT 23.3 L (24.2-36.6) Sec. D-Dimer 947.92 H (0-234) ng/mlDDU ABG pH (7.350-7.450) pH Units ABG pCO2 mm Hg ABG pO2 (80.0-90.0) mm Hg ABG HCO3 (20.0-26.0) mmol/L ABG O2 Saturation ABG O2 Content (0.0-44) ABG Base Excess (-2.0-3.0) mmol/L ABG Hemoglobin ABG Carboxyhemoglobin ABG Methemoglobin Oxyhemoglobin FiO2 % Sodium 141 (137-145) mmol/L Potassium 4.5 (3.6-5.0) mmol/L Chloride 88.2 L (98-107) mmol/L Carbon Dioxide 38 H (22-30) mmol/L Anion Gap 19 mmol/L BUN 14 (7-17) mg/dL Creatinine 0.6 (0.6-1.2) mg/dL Estimated GFR > 60 ml/min BUN/Creatinine Ratio 23 % Glucose 129 H (65-100) mg/dL Lactic Acid (0.7-2.0) mmol/L Calcium 9.1 (8.4-10.2) mg/dL Magnesium (1.7-2.3) mg/dL Total Bilirubin 0.60 (0.1-1.2) mg/dL AST 177 H (5-40) units/L ALT 251 H (7-56) units/L Alkaline Phosphatase 123 (35-129) units/L Ammonia (25-60) umol/L Troponin T 0.036 H (0.00-0.029) ng/mL NT-Pro-B Natriuret Pep 576.0 (0-900) pg/mL Total Protein 5.9 L (6.3-8.2) g/dL Albumin 3.8 L (3.9-5) g/dL Albumin/Globulin Ratio 1.8 % Triglycerides 173 H (2-149) mg/dL Cholesterol 191 (50-199) mg/dL LDL Cholesterol Direct 80 (50-130) mg/dL HDL Cholesterol 73 H (40-59) mg/dL Cholesterol/HDL Ratio 2.61 % TSH (0.270-4.200) mlU/mL Urine Color (Yellow) Urine Turbidity (Clear) Urine pH (5.0-7.0) Ur Specific [place] (1.003-1.030) Urine Protein (Negative) mg/dL Urine Glucose (UA) (Negative) mg/dL Urine Ketones (Negative) mg/dL Urine Blood (Negative) Urine Nitrite (Negative) Urine Bilirubin (Negative) Urine Urobilinogen (<2.0) mg/dL Ur Leukocyte Esterase (Negative) Urine WBC (Auto) (0.0-6.0) /HPF Urine RBC (Auto) (0.0-6.0) /HPF U Epithel Cells (Auto) (0-13.0) /HPF Urine Bacteria (Auto) (Negative) /HPF Urine Mucus /HPF Urine Yeast (Budding) /HPF Blood Type Antibody Screen 03/17/21 03/17/21 03/17/21 Range/Units 18:15 18:40 18:40 WBC (4.5-11.0) K/mm3 RBC (3.65-5.03) M/mm3 Hgb (10.1-14.3) gm/dl Hct (30.3-42.9) % MCV (79-97) fl MCH (28-32) pg MCHC (30-34) % RDW (13.2-15.2) % Plt Count (140-440) K/mm3 Add Manual Diff Total Counted Seg Neuts % (Manual) (40.0-70.0) % Band Neutrophils % % Lymphocytes % (Manual) (13.4-35.0) % Monocytes % (Manual) (0.0-7.3) % Myelocytes % % Promyelocytes % % Nucleated RBC % (0.0-0.9) % Seg Neutrophils # Man (1.8-7.7) K/mm3 Band Neutrophils # K/mm3 Lymphocytes # (Manual) (1.2-5.4) K/mm3 Abs React Lymphs (Man) K/mm3 Monocytes # (Manual) (0.0-0.8) K/mm3 Eosinophils # (Manual) (0.0-0.4) K/mm3 Basophils # (Manual) (0.0-0.1) K/mm3 Metamyelocytes # K/mm3 Myelocytes # K/mm3 Promyelocytes # K/mm3 Blast Cells # K/mm3 WBC Morphology Hypersegmented Neuts Hyposegmented Neuts Hypogranular Neuts Smudge Cells Toxic Granulation Toxic Vacuolation Dohle Bodies Pelger-Huet Anomaly Florentino Rods Platelet Estimate Clumped Platelets Plt Clumps, EDTA Large Platelets Giant Platelets Platelet Satelliting Plt Morphology Comment RBC Morphology Dimorphic RBCs Polychromasia Hypochromasia Poikilocytosis Anisocytosis Microcytosis Macrocytosis Spherocytes Pappenheimer Bodies Sickle Cells Target Cells Tear Drop Cells Ovalocytes Stomatocytes Helmet Cells [place] Bodies [place] Rings [place] Cells Bite Cells Crenated Cell Elliptocytes Acanthocytes (Spur) Rouleaux Hemoglobin C Crystals Schistocytes Malaria parasites Maykel Bodies Hem Pathologist Commnt PT (12.2-14.9) Sec. INR (0.87-1.13) APTT (24.2-36.6) Sec. D-Dimer (0-234) ng/mlDDU ABG pH 7.435 (7.350-7.450) pH Units ABG pCO2 68.3 mm Hg ABG pO2 94.4 H (80.0-90.0) mm Hg ABG HCO3 44.8 H (20.0-26.0) mmol/L ABG O2 Saturation Not Reportable ABG O2 Content 20.7 (0.0-44) ABG Base Excess 16.6 H (-2.0-3.0) mmol/L ABG Hemoglobin Not Reportable ABG Carboxyhemoglobin Not Reportable ABG Methemoglobin Not Reportable Oxyhemoglobin Not Reportable FiO2 40 % Sodium (137-145) mmol/L Potassium (3.6-5.0) mmol/L Chloride (98-107) mmol/L Carbon Dioxide (22-30) mmol/L Anion Gap mmol/L BUN (7-17) mg/dL Creatinine (0.6-1.2) mg/dL Estimated GFR ml/min BUN/Creatinine Ratio % Glucose (65-100) mg/dL Lactic Acid 4.00 H* (0.7-2.0) mmol/L Calcium (8.4-10.2) mg/dL Magnesium (1.7-2.3) mg/dL Total Bilirubin (0.1-1.2) mg/dL AST (5-40) units/L ALT (7-56) units/L Alkaline Phosphatase (35-129) units/L Ammonia 116.0 H (25-60) umol/L Troponin T (0.00-0.029) ng/mL NT-Pro-B Natriuret Pep (0-900) pg/mL Total Protein (6.3-8.2) g/dL Albumin (3.9-5) g/dL Albumin/Globulin Ratio % Triglycerides (2-149) mg/dL Cholesterol (50-199) mg/dL LDL Cholesterol Direct (50-130) mg/dL HDL Cholesterol (40-59) mg/dL Cholesterol/HDL Ratio % TSH (0.270-4.200) mlU/mL Urine Color (Yellow) Urine Turbidity (Clear) Urine pH (5.0-7.0) Ur Specific [place] (1.003-1.030) Urine Protein (Negative) mg/dL Urine Glucose (UA) (Negative) mg/dL Urine Ketones (Negative) mg/dL Urine Blood (Negative) Urine Nitrite (Negative) Urine Bilirubin (Negative) Urine Urobilinogen (<2.0) mg/dL Ur Leukocyte Esterase (Negative) Urine WBC (Auto) (0.0-6.0) /HPF Urine RBC (Auto) (0.0-6.0) /HPF U Epithel Cells (Auto) (0-13.0) /HPF Urine Bacteria (Auto) (Negative) /HPF Urine Mucus /HPF Urine Yeast (Budding) /HPF Blood Type Antibody Screen 03/17/21 03/17/21 03/17/21 Range/Units 18:40 19:42 22:57 WBC (4.5-11.0) K/mm3 RBC (3.65-5.03) M/mm3 Hgb (10.1-14.3) gm/dl Hct (30.3-42.9) % MCV (79-97) fl MCH (28-32) pg MCHC (30-34) % RDW (13.2-15.2) % Plt Count (140-440) K/mm3 Add Manual Diff Total Counted Seg Neuts % (Manual) (40.0-70.0) % Band Neutrophils % % Lymphocytes % (Manual) (13.4-35.0) % Monocytes % (Manual) (0.0-7.3) % Myelocytes % % Promyelocytes % % Nucleated RBC % (0.0-0.9) % Seg Neutrophils # Man (1.8-7.7) K/mm3 Band Neutrophils # K/mm3 Lymphocytes # (Manual) (1.2-5.4) K/mm3 Abs React Lymphs (Man) K/mm3 Monocytes # (Manual) (0.0-0.8) K/mm3 Eosinophils # (Manual) (0.0-0.4) K/mm3 Basophils # (Manual) (0.0-0.1) K/mm3 Metamyelocytes # K/mm3 Myelocytes # K/mm3 Promyelocytes # K/mm3 Blast Cells # K/mm3 WBC Morphology Hypersegmented Neuts Hyposegmented Neuts Hypogranular Neuts Smudge Cells Toxic Granulation Toxic Vacuolation Dohle Bodies Pelger-Huet Anomaly Florentino Rods Platelet Estimate Clumped Platelets Plt Clumps, EDTA Large Platelets Giant Platelets Platelet Satelliting Plt Morphology Comment RBC Morphology Dimorphic RBCs Polychromasia Hypochromasia Poikilocytosis Anisocytosis Microcytosis Macrocytosis Spherocytes Pappenheimer Bodies Sickle Cells Target Cells Tear Drop Cells Ovalocytes Stomatocytes Helmet Cells [place] Bodies [place] Rings [place] Cells Bite Cells Crenated Cell Elliptocytes Acanthocytes (Spur) Rouleaux Hemoglobin C Crystals Schistocytes Malaria parasites Maykel Bodies Hem Pathologist Commnt PT (12.2-14.9) Sec. INR (0.87-1.13) APTT (24.2-36.6) Sec. D-Dimer (0-234) ng/mlDDU ABG pH (7.350-7.450) pH Units ABG pCO2 mm Hg ABG pO2 (80.0-90.0) mm Hg ABG HCO3 (20.0-26.0) mmol/L ABG O2 Saturation ABG O2 Content (0.0-44) ABG Base Excess (-2.0-3.0) mmol/L ABG Hemoglobin ABG Carboxyhemoglobin ABG Methemoglobin Oxyhemoglobin FiO2 % Sodium (137-145) mmol/L Potassium (3.6-5.0) mmol/L Chloride (98-107) mmol/L Carbon Dioxide (22-30) mmol/L Anion Gap mmol/L BUN (7-17) mg/dL Creatinine (0.6-1.2) mg/dL Estimated GFR ml/min BUN/Creatinine Ratio % Glucose (65-100) mg/dL Lactic Acid (0.7-2.0) mmol/L Calcium (8.4-10.2) mg/dL Magnesium 1.90 (1.7-2.3) mg/dL Total Bilirubin (0.1-1.2) mg/dL AST (5-40) units/L ALT (7-56) units/L Alkaline Phosphatase (35-129) units/L Ammonia (25-60) umol/L Troponin T (0.00-0.029) ng/mL NT-Pro-B Natriuret Pep (0-900) pg/mL Total Protein (6.3-8.2) g/dL Albumin (3.9-5) g/dL Albumin/Globulin Ratio % Triglycerides (2-149) mg/dL Cholesterol (50-199) mg/dL LDL Cholesterol Direct (50-130) mg/dL HDL Cholesterol (40-59) mg/dL Cholesterol/HDL Ratio % TSH (0.270-4.200) mlU/mL Urine Color [place] (Yellow) Urine Turbidity Slightly-cloudy (Clear) Urine pH 7.0 (5.0-7.0) Ur Specific [place] 1.015 (1.003-1.030) Urine Protein 100 mg/dl (Negative) mg/dL Urine Glucose (UA) Neg (Negative) mg/dL Urine Ketones 20 (Negative) mg/dL Urine Blood Sm (Negative) Urine Nitrite Neg (Negative) Urine Bilirubin Neg (Negative) Urine Urobilinogen 2.0 (<2.0) mg/dL Ur Leukocyte Esterase Neg (Negative) Urine WBC (Auto) 4.0 (0.0-6.0) /HPF Urine RBC (Auto) 6.0 (0.0-6.0) /HPF U Epithel Cells (Auto) 5.0 (0-13.0) /HPF Urine Bacteria (Auto) 1+ (Negative) /HPF Urine Mucus 1+ /HPF Urine Yeast (Budding) Few /HPF Blood Type A POSITIVE Antibody Screen Negative 03/17/21 03/17/21 Range/Units 22:57 23:36 WBC (4.5-11.0) K/mm3 RBC (3.65-5.03) M/mm3 Hgb (10.1-14.3) gm/dl Hct (30.3-42.9) % MCV (79-97) fl MCH (28-32) pg MCHC (30-34) % RDW (13.2-15.2) % Plt Count (140-440) K/mm3 Add Manual Diff Total Counted Seg Neuts % (Manual) (40.0-70.0) % Band Neutrophils % % Lymphocytes % (Manual) (13.4-35.0) % Monocytes % (Manual) (0.0-7.3) % Myelocytes % % Promyelocytes % % Nucleated RBC % (0.0-0.9) % Seg Neutrophils # Man (1.8-7.7) K/mm3 Band Neutrophils # K/mm3 Lymphocytes # (Manual) (1.2-5.4) K/mm3 Abs React Lymphs (Man) K/mm3 Monocytes # (Manual) (0.0-0.8) K/mm3 Eosinophils # (Manual) (0.0-0.4) K/mm3 Basophils # (Manual) (0.0-0.1) K/mm3 Metamyelocytes # K/mm3 Myelocytes # K/mm3 Promyelocytes # K/mm3 Blast Cells # K/mm3 WBC Morphology Hypersegmented Neuts Hyposegmented Neuts Hypogranular Neuts Smudge Cells Toxic Granulation Toxic Vacuolation Dohle Bodies Pelger-Huet Anomaly Florentino Rods Platelet Estimate Clumped Platelets Plt Clumps, EDTA Large Platelets Giant Platelets Platelet Satelliting Plt Morphology Comment RBC Morphology Dimorphic RBCs Polychromasia Hypochromasia Poikilocytosis Anisocytosis Microcytosis Macrocytosis Spherocytes Pappenheimer Bodies Sickle Cells Target Cells Tear Drop Cells Ovalocytes Stomatocytes Helmet Cells [place] Bodies [place] Rings [place] Cells Bite Cells Crenated Cell Elliptocytes Acanthocytes (Spur) Rouleaux Hemoglobin C Crystals Schistocytes Malaria parasites Maykel Bodies Hem Pathologist Commnt PT (12.2-14.9) Sec. INR (0.87-1.13) APTT (24.2-36.6) Sec. D-Dimer (0-234) ng/mlDDU ABG pH (7.350-7.450) pH Units ABG pCO2 mm Hg ABG pO2 (80.0-90.0) mm Hg ABG HCO3 (20.0-26.0) mmol/L ABG O2 Saturation ABG O2 Content (0.0-44) ABG Base Excess (-2.0-3.0) mmol/L ABG Hemoglobin ABG Carboxyhemoglobin ABG Methemoglobin Oxyhemoglobin FiO2 % Sodium (137-145) mmol/L Potassium (3.6-5.0) mmol/L Chloride (98-107) mmol/L Carbon Dioxide (22-30) mmol/L Anion Gap mmol/L BUN (7-17) mg/dL Creatinine (0.6-1.2) mg/dL Estimated GFR ml/min BUN/Creatinine Ratio % Glucose (65-100) mg/dL Lactic Acid 4.00 H* (0.7-2.0) mmol/L Calcium (8.4-10.2) mg/dL Magnesium (1.7-2.3) mg/dL Total Bilirubin (0.1-1.2) mg/dL AST (5-40) units/L ALT (7-56) units/L Alkaline Phosphatase (35-129) units/L Ammonia (25-60) umol/L Troponin T (0.00-0.029) ng/mL NT-Pro-B Natriuret Pep (0-900) pg/mL Total Protein (6.3-8.2) g/dL Albumin (3.9-5) g/dL Albumin/Globulin Ratio % Triglycerides (2-149) mg/dL Cholesterol (50-199) mg/dL LDL Cholesterol Direct (50-130) mg/dL HDL Cholesterol (40-59) mg/dL Cholesterol/HDL Ratio % TSH 3.510 (0.270-4.200) mlU/mL Urine Color (Yellow) Urine Turbidity (Clear) Urine pH (5.0-7.0) Ur Specific [place] (1.003-1.030) Urine Protein (Negative) mg/dL Urine Glucose (UA) (Negative) mg/dL Urine Ketones (Negative) mg/dL Urine Blood (Negative) Urine Nitrite (Negative) Urine Bilirubin (Negative) Urine Urobilinogen (<2.0) mg/dL Ur Leukocyte Esterase (Negative) Urine WBC (Auto) (0.0-6.0) /HPF Urine RBC (Auto) (0.0-6.0) /HPF U Epithel Cells (Auto) (0-13.0) /HPF Urine Bacteria (Auto) (Negative) /HPF Urine Mucus /HPF Urine Yeast (Budding) /HPF Blood Type Antibody Screen - EKG Data -: EKG Interpreted by Me EKG shows normal: sinus rhythm, axis, intervals, QRS complexes (Q waves to the septal leads), ST-T waves Rate: tachycardia (147 bpm) - EKG Data When compared to previous EKG there are: changes noted (Previous EKG from 11/13/2020 looks unchanged except for current EKG has moderate to severe tachycardia) Interpretation: other (Sinus rhythm at 147 bpm, normal axis, normal intervals, Q waves to the septal leads. No ST elevation IN) - Radiology Data Radiology results: image reviewed interpreted by me: Chest x-ray does not show any acute process. There are no pleural effusions, obvious pneumonia and there is no pneumothorax. Endotracheal tube appears about 6 cm above the nickie. No widened mediastinum. - Medical Decision Making This patient presented to the emergency department in respiratory distress and essentially unresponsive except for to painful stimuli. For these reasons the patient was intubated as per the procedure section. Initially the patient was allegedly in SVT with EMS. She received 6 mg of adenosine, followed by 12 mg of adenosine. Upon arrival to room 19, the patient appeared to have an irregular rhythm. However EKG showed sinus tachycardia and it appeared to be some type of tachycardic sinus arrhythmia. Chest x-ray did not show any pneumonia, pleural effusions, pneumothorax, widened mediastinum. Patient's labs shows a mild leukocytosis of about 14,000, anemia with hemoglobin of 7, elevated D-dimer level of about 900, lactic acidosis, transaminitis, hyperammonemia, and a slightly elevated troponin level. Thus far the patient has been given a dose of lactulose, Cardizem, some IV fluid resuscitation. The patient is due to have a CT scan of the head without contrast, and a CT angiography of the chest. The admitting hospitalist will follow up on the results of these CT studies. The patient's production supv was contacted and consulted and he will also consult as the director communications to allow this ICU admission. Patient was accepted for admission by the hospitalist, Dr. Ventura. Critical Care Time: Yes Critical care time in (mins) excluding proc time.: 45 Critical care attestation.: If time is entered above; I have spent that time in minutes in the direct care of this critically ill patient, excluding procedure time. Critical care time was spent on this patient in doing her initial evaluation, multiple reevaluations, ordering interpretation of labs and imaging, lactulose for the hyperammonemia, Cardizem for rate control of this tachyarrhythmia, discussion with the e/m engineer, multiple discussions with the patient's . This does not include the time spent doing the separately billable intubation procedure. Critical Care Time: 45 minutes. ED Disposition Clinical Impression: Acute hypercapnic respiratory failure, COPD exacerbation, Hyperammonemia, Tachyarrhythmia, Transaminitis, Anemia Disposition: ADMITTED INPATIENT Is pt being admited?: Yes Condition: Stable Instructions: Chronic Bronchitis (ED) Time of Disposition: 00:33
[2021-03-17] MEDS: MIDAZOLAM 2 MG/2 ML INJ IV PRN ×4 (18:00→18:45)
[2021-03-17] MEDS ORDERED: SUCCINYLCHOLINE CHLORIDE 200 MG/10 ML INJ MDV IV ONE (18:00)
--- NOTE | 2021-03-17 18:01 | XRay Report ---
XR chest 1V ap INDICATION / CLINICAL INFORMATION: ETT placement. COMPARISON: 11/13/2020 FINDINGS: SUPPORT DEVICES: There is an endotracheal tube with tip measuring approximately 7.7 cm from the shellie a. HEART /PULMONARY VASCULATURE: No significant abnormality. LUNGS / PLEURA: The lungs are hyperexpanded, compatible COPD. Stable blunting of the costophrenic sul ci. No focal airspace consolidation. No pneumothorax. ADDITIONAL FINDINGS: No significant additional findings. IMPRESSION: Endotracheal tube terminates approximately 7.7 cm from the nickie. Consider advancement by eileen cruz 2.5-3 cm. Signer Name: Bari Mehta MD Signed: 03/17/2021 5:56 PM Workstation Name: [id number]
[2021-03-17] MEDS ORDERED: dilTIAZem 25 MG/5 ML INJ IV ONE (18:23)
[2021-03-17] MEDS: MIDAZOLAM 100 MG in SODIUM CHLORIDE 0.9% 80 ML IV SCH (18:30)
[2021-03-17 19:09] LABS: Mean Corpuscular HGB Conc 27 % (30-34); Mean Corpuscular Volume 75 fl (79-97); Platelet Count 291 K/mm3 (140-440); Red Blood Count 3.48 M/mm3 (3.65-5.03)
[2021-03-17 19:14] LABS: INR 0.85 (0.87-1.13)
[2021-03-17 19:15] LABS: Partial Thromboplastin Time 23.3 Sec. (24.2-36.6)
[2021-03-17 19:15] LABS: Hematocrit 26.2 % (30.3-42.9); Red Cell Distribution Width 25.4 % (13.2-15.2)
[2021-03-17 19:18] LABS: ABG Base Excess 16.6 mmol/L (-2.0-3.0); ABG HCO3 44.8 mmol/L (20.0-26.0); ABG PCO2 68.3 mm Hg; ABG PH 7.435 pH Units (7.350-7.450); ABG PO2 94.4 mm Hg (80.0-90.0)
[2021-03-17 19:20] LABS: Alanine Aminotransferase 251 units/L (7-56); Albumin 3.8 g/dL (3.9-5); Blood Urea Nitrogen 14 mg/dL (7-17); Calcium 9.1 mg/dL (8.4-10.2); Hemolysis Index 10
[2021-03-17 19:22] LABS: BUN/Creatinine Ratio 23
[2021-03-17] MEDS ORDERED: LACTULOSE 20 GM/30 ML ORAL LIQD PO ONE (19:30)
[2021-03-17 20:20] LABS: Chol/HDL Ratio 2.61 %; HDL Cholesterol 73 mg/dL (40-59); LDL Cholesterol,Direct 80 mg/dL (50-130)
[2021-03-17 21:29] LABS: Band Neutrophils # (Manual) 0.7 K/mm3; Myelocytes # (Manual) 0.1 K/mm3; Promyelocytes # (Manual) 0.4 K/mm3; Total Cells Counted 100
[2021-03-17 21:31] LABS: Anisocytosis 1+
[2021-03-17 21:32] LABS: Hypochromasia 3+; Ovalocytes 1+; Stomatocytes 1+
[2021-03-17 21:33] LABS: Large Platelets Few; Platelet Estimate Consistent w Auto
[2021-03-17] MEDS: FAMOTIDINE 20 MG/2 ML INJ IV SCH (22:00)
[2021-03-17] MEDS: SENNOSIDES/DOCUSATE SODIUM 8.6/50 MG TAB FEEDTUBE SCH (22:00)
[2021-03-17 22:21] LABS: Bacteria,Urine 1+ /HPF (Negative); Bilirubin,Urine NEG (Negative); Blood,Urine SM (Negative); Color,Urine Amber (Yellow); Mucus,Urine 1+ /HPF
[2021-03-18] MEDS ORDERED: MAGNESIUM HYDROXIDE (MOM) ORAL LIQD UDC PO PRN (00:05)
[2021-03-18] MEDS ORDERED: ACETAMINOPHEN 325 MG TAB PO PRN (00:05)
--- NOTE | 2021-03-18 00:36 | History and Physical Report ---
History of Present Illness Date of examination: 03/17/21 Date of admission: 03/17/2021 Chief complaint: Shortness of Breath History of present illness: 60-year-old -[place]i female with known history of COPD, diabetes mellitus and hypertension presenting to the emergency room today via EMS With a complaint of shortness of breath. Upon arrival of EMS patient was found to be in SVT with a heart rate of about 200 and blood pressure was quite elevated with systolic in the 200. Patient had about 6 mg of adenosine without any significant change and then subsequently had 12 mg of adenosine with improvement of her heart rate. Upon arrival in the emergency room patient was found to be in atrial fibrillation with RVR, found to be dyspneic. Record indicates that patient has had recurrent hypoxic respiratory failure, COPD with oxygen dependence, obstructive sleep apnea. Patient was subsequently intubated in the emergency room. Most of the history was gotten from the ER staff as patient is already intubated and sedated. Patient codifier Dr. Gage has been consulted by the ER physician. Work-up in the emergency room today shows elevated white count of about 13.8, lactic acid of 4, elevated liver enzymes, ammonia level of 116, troponin of 0.036. Chest x-ray, CT angiogram and CT of the head were unremarkable. Past History Past Medical History: arthritis, COPD, diabetes, GERD, hypertension, hyperlipidemia Past Surgical History: appendectomy, hysterectomy Social history: smoking (Former Smoker) Family history: no significant family history Medications and Allergies Allergies Allergy/AdvReac Type Severity Reaction Status Date / Time ipratropium [From Atrovent] Allergy Unknown Verified 11/13/20 08:53 Penicillins Allergy Unknown Verified 11/13/20 08:53 lactose AdvReac Unknown Verified 11/13/20 08:53 shellfish derived AdvReac Swelling Verified 11/13/20 08:53 Tea Allergy Itching Uncoded 07/16/20 19:49 Home Medications Medication Instructions Recorded Confirmed Last Taken Type Ergocalciferol [Vitamin D2] 1 cap PO QWEEK 11/14/20 11/14/20 Unknown History Pantoprazole [Protonix TAB] 40 mg PO BID 11/14/20 11/14/20 Unknown History Plecanatide [Trulance] 3 mg PO QDAY 11/14/20 11/14/20 Unknown History AtorvaSTATin 10 mg PO QHS tablet 11/15/20 Unknown Rx Clopidogrel [Plavix] 75 mg PO QDAY tablet 11/15/20 Unknown Rx DULoxetine [Cymbalta] 30 mg PO QDAY capsule 11/15/20 Unknown Rx Escitalopram [Lexapro] 20 mg PO DAILY tablet 11/15/20 Unknown Rx Metoprolol [Lopressor TAB] 25 mg PO TIDAC tablet 11/15/20 Unknown Rx Montelukast [Singulair] 10 mg PO QHS tablet 11/15/20 Unknown Rx Pantoprazole [Protonix TAB] 40 mg PO BID tablet 11/15/20 Unknown Rx busPIRone [Buspar] 5 mg PO BID tablet 11/15/20 Unknown Rx guaiFENesin ER [Mucinex ER] 600 mg PO BID tablet 11/15/20 Unknown Rx predniSONE [Deltasone] 20 mg PO QDAY #10 11/15/20 Unknown Rx Active Meds: Active Medications Acetaminophen (Acetaminophen 325 Mg Tab) 650 mg PO Q6H PRN PRN Reason: Pain MILD(1-3)/Fever >100.5/TOVAR Albuterol (Albuterol 2.5 Mg/3 Ml Nebu) 2.5 mg IH Q4HRT BUTCH Dextrose (Dextrose 50% In Water (25gm) 50 Ml Syringe) 0 ml IV Q30MIN PRN; Protocol PRN Reason: Hypoglycemia Famotidine (Famotidine 20 Mg/2 Ml Inj) 20 mg IV BID BUTCH Heparin Sodium (Porcine) (Heparin 5,000 Unit/1 Ml Vial) 5,000 unit SUB-Q Q8HR BUTCH Hydrophilic Ointment (Lip Therapy Vaseline) 1 applic TP Q2HR PRN PRN Reason: Dry Lips Midazolam HCl 100 mg/ Sodium (Chloride) 100 mls @ 2 mls/hr IV TITR BUTCH; Protocol Last Titration: 03/17/21 21:00 Dose: 3 mg/hr, 3 mls/hr Documented by: Sodium Chloride (Nacl 0.9% 1000 Ml) 1,000 mls @ 125 mls/hr IV ONCE ONE Stop: 03/18/21 01:35 Last Admin: 03/17/21 18:52 Dose: 125 mls/hr Documented by: Levofloxacin/Dextrose (Levaquin 750mg/150ml) 750 mg in 150 mls @ 100 mls/hr IV Q24H BUTCH; Protocol Insulin Human Lispro (Insulin Lispro 100 Unit/Ml) 0 unit SUB-Q ACHS BUTCH; P rotocol Magnesium Hydroxide (Magnesium Hydroxide (Mom) Oral Liqd Udc) 30 ml PO Q4H PRN PRN Reason: Constipation Methylprednisolone Sodium Succinate (Methylprednisolone Sod Succinate 40 Mg/1 Ml Inj) 40 mg IV Q8HR BUTCH Midazolam HCl (Midazolam 2 Mg/2 Ml Inj) 2 mg IV Q10MIN PRN PRN Reason: Sedation Last Admin: 03/17/21 18:45 Dose: 2 mg Documented by: Morphine Sulfate (Morphine 2 Mg/1 Ml Inj) 2 mg IV Q4H PRN PRN Reason: Pain, Moderate (4-6) Morphine Sulfate (Morphine 4 Mg/1 Ml Inj) 4 mg IV Q4H PRN PRN Reason: Pain , Severe (7-10) Multi-Ingred Cream/Lotion/Oil/Oint (Mineral Oil/Petrolatum, White Ophth Oint 3.5 Gm) 1 applic OU Q4HR PRN PRN Reason: Dry Eye(s) Senna/Docusate Sodium (Sennosides/Docusate Sodium 8.6/50 Mg Tab) 1 tab FEEDTUBE BID BUTCH Last Admin: 03/17/21 22:00 Dose: 1 tab Documented by: Sodium Chloride (Sodium Chloride 0.9% 10 Ml Flush Syringe) 10 ml IV BID BUTCH Sodium Chloride (Sodium Chloride 0.9% 10 Ml Flush Syringe) 10 ml IV PRN PRN PRN Reason: LINE FLUSH Review of Systems ROS unobtainable: due to endotracheal tube Exam - Constitutional Vitals: Temp Pulse Resp BP Pulse Ox 98.3 F 117 H 13 156/93 95 03/17/21 18:13 03/18/21 00:15 03/18/21 00:15 03/18/21 00:15 03/18/21 00:15 General appearance: Present: well-nourished, other (Intubated and sedated) - EENT Eyes: Present: PERRL, EOM intact. Absent: scleral icterus ENT: hearing intact, clear oral mucosa, dentition normal - Neck Neck: Present: supple, normal ROM - Respiratory Respiratory effort: normal Respiratory: bilateral: diminished - Cardiovascular Rhythm: regular Heart Sounds: Present: S1 & S2. Absent: gallop, systolic murmur, diastolic murmur, rub, click - Extremities Extremities: no ischemia, pulses intact, pulses symmetrical, No edema, normal temperature, normal color, Full ROM Peripheral Pulses: within normal limits - Abdominal General gastrointestinal: Present: soft, non-tender, non-distended, normal bowel sounds. Absent: mass - Integumentary Integumentary: Present: clear, warm, dry, normal turgor. Absent: rash - Psychiatric Psychiatric: cooperative - Neurologic Neurologic: CNII-XII intact, other (Intubated and sedated) HEART Score - HEART Score Troponin: Troponin T 0.036 ng/mL (0.00-0.029) H 03/17/21 17:36 Results - Labs CBC & Chem 7: 03/17/21 17:36 03/17/21 17:36 Labs: Abnormal lab results 03/17/21 03/17/21 03/17/21 Range/Units 17:36 17:36 17:37 WBC 13.8 H (4.5-11.0) K/mm3 RBC 3.48 L (3.65-5.03) M/mm3 Hgb 7.0 L (10.1-14.3) gm/dl Hct 26.2 L (30.3-42.9) % MCV 75 L (79-97) fl MCH 20 L (28-32) pg MCHC 27 L (30-34) % RDW 25.4 H (13.2-15.2) % Nucleated RBC % 7.0 H (0.0-0.9) % Seg Neutrophils # Man 8.7 H (1.8-7.7) K/mm3 INR 0.85 L (0.87-1.13) APTT 23.3 L (24.2-36.6) Sec. D-Dimer 947.92 H (0-234) ng/mlDDU ABG pO2 (80.0-90.0) mm Hg ABG HCO3 (20.0-26.0) mmol/L ABG Base Excess (-2.0-3.0) mmol/L Chloride 88.2 L (98-107) mmol/L Carbon Dioxide 38 H (22-30) mmol/L Glucose 129 H (65-100) mg/dL Lactic Acid (0.7-2.0) mmol/L AST 177 H (5-40) units/L ALT 251 H (7-56) units/L Ammonia (25-60) umol/L Troponin T 0.036 H (0.00-0.029) ng/mL Total Protein 5.9 L (6.3-8.2) g/dL Albumin 3.8 L (3.9-5) g/dL Triglycerides 173 H (2-149) mg/dL HDL Cholesterol 73 H (40-59) mg/dL 03/17/21 03/17/21 03/17/21 Range/Units 18:15 18:40 18:40 WBC (4.5-11.0) K/mm3 RBC (3.65-5.03) M/mm3 Hgb (10.1-14.3) gm/dl Hct (30.3-42.9) % MCV (79-97) fl MCH (28-32) pg MCHC (30-34) % RDW (13.2-15.2) % Nucleated RBC % (0.0-0.9) % Seg Neutrophils # Man (1.8-7.7) K/mm3 INR (0.87-1.13) APTT (24.2-36.6) Sec. D-Dimer (0-234) ng/mlDDU ABG pO2 94.4 H (80.0-90.0) mm Hg ABG HCO3 44.8 H (20.0-26.0) mmol/L ABG Base Excess 16.6 H (-2.0-3.0) mmol/L Chloride (98-107) mmol/L Carbon Dioxide (22-30) mmol/L Glucose (65-100) mg/dL Lactic Acid 4.00 H* (0.7-2.0) mmol/L AST (5-40) units/L ALT (7-56) units/L Ammonia 116.0 H (25-60) umol/L Troponin T (0.00-0.029) ng/mL Total Protein (6.3-8.2) g/dL Albumin (3.9-5) g/dL Triglycerides (2-149) mg/dL HDL Cholesterol (40-59) mg/dL 03/17/21 Range/Units 23:36 WBC (4.5-11.0) K/mm3 RBC (3.65-5.03) M/mm3 Hgb (10.1-14.3) gm/dl Hct (30.3-42.9) % MCV (79-97) fl MCH (28-32) pg MCHC (30-34) % RDW (13.2-15.2) % Nucleated RBC % (0.0-0.9) % Seg Neutrophils # Man (1.8-7.7) K/mm3 INR (0.87-1.13) APTT (24.2-36.6) Sec. D-Dimer (0-234) ng/mlDDU ABG pO2 (80.0-90.0) mm Hg ABG HCO3 (20.0-26.0) mmol/L ABG Base Excess (-2.0-3.0) mmol/L Chloride (98-107) mmol/L Carbon Dioxide (22-30) mmol/L Glucose (65-100) mg/dL Lactic Acid 4.00 H* (0.7-2.0) mmol/L AST (5-40) units/L ALT (7-56) units/L Ammonia (25-60) umol/L Troponin T (0.00-0.029) ng/mL Total Protein (6.3-8.2) g/dL Albumin (3.9-5) g/dL Triglycerides (2-149) mg/dL HDL Cholesterol (40-59) mg/dL Assessment and Plan - Patient Problems (1) Acute respiratory failure with hypoxia Current Visit: No Status: Acute Plan to address problem: Patient currently intubated and sedated. Await further evaluation by codifier. (2) COPD (chronic obstructive pulmonary disease) Current Visit: No Status: Chronic Qualifiers: COPD type: unspecified COPD Qualified Code(s): J44.9 - Chronic obstructive pulmonary disease, unspecified Plan to address problem: We will place on nebulizing treatments. (3) HTN (hypertension) Current Visit: No Status: Chronic Qualifiers: Hypertension type: essential hypertension Qualified Code(s): I10 - Essential (primary) hypertension Plan to address problem: We will monitor vital signs closely. (4) Lactic acidosis Current Visit: Yes Status: Acute Plan to address problem: We will monitor chemistry. Patient will be placed on IV fluid and empiric IV antibiotics. (5) DVT prophylaxis Current Visit: No Status: Acute Plan to address problem: Patient placed on subcutaneous heparin. (6) Full code status Current Visit: No Status: Acute Plan to address problem: Patient is a full code.
[2021-03-18 00:40] LABS: ABG Base Excess 14.4 mmol/L (-2.0-3.0); ABG HCO3 40.2 mmol/L (20.0-26.0); ABG Methemoglobin 0.5 % (0.0-1.5); ABG Oxygen Saturation 97.9 % (95.0-99.0); ABG PCO2 61.7 mm Hg; ABG PH 7.432 pH Units (7.350-7.450); ABG PO2 68.1 mm Hg (80.0-90.0)
--- NOTE | 2021-03-18 01:13 | Cat Scan Report ---
CT HEAD WITHOUT CONTRAST INDICATION / CLINICAL INFORMATION: AMS. TECHNIQUE: All CT scans at this location are performed using CT dose reduction for ALARA by means of automated exposure control. COMPARISON: None available. FINDINGS: HEMORRHAGE: None. EXTRA-AXIAL SPACES: Mildly prominent likely related to cortical atrophy. VENTRICULAR SYSTEM: Mildly enlarged likely related to central atrophy. CEREBRAL PARENCHYMA: There are periventricular hypodensities consistent with microvascular ischemic c hange. No acute territorial infarct. MIDLINE SHIFT / HERNIATION: None. CEREBELLUM / BRAINSTEM: No significant abnormality. ORBITS: History of cataract surgery. SOFT TISSUES: No significant abnormality. SKULL: No significant abnormality. PARANASAL SINUSES / MASTOID AIR CELLS: Normal as visualized ADDITIONAL FINDINGS: Partial visualization of an endotracheal tube. IMPRESSION: 1. No acute intracranial abnormality in setting of senescent changes. Signer Name: Ricci Kyle DO Signed: 03/18/2021 1:09 AM Workstation Name: [id number]
--- NOTE | 2021-03-18 01:18 | Cat Scan Report ---
CTA CHEST WITH CONTRAST INDICATION / CLINICAL INFORMATION: Respiratory failure, Elevated dimer. TECHNIQUE: Axial CT images were obtained through the chest after injection of IV contrast. 3 plane OH P and/or 3D reconstructions were produced. All CT scans at this location are performed using CT dose reduction for ALARA by means of automated exposure control. COMPARISON: None available. FINDINGS: PULMONARY ARTERIES: No pulmonary emboli. THORACIC AORTA: No significant abnormality. HEART: No significant abnormality. CORONARY ARTERY CALCIFICATION: None. MEDIASTINUM / MARGUERITE: No significant abnormality. PLEURA: There is a small right and trace left pleural effusion. There is adjacent compressive atelect asis to the right pleural effusion. No pneumothorax. LUNGS: There is upper lobe predominant emphysema. ADDITIONAL FINDINGS: Endotracheal tube terminates approximately 4.6 cm from the nickie. UPPER ABDOMEN: Enteric tube terminates within the stomach. SKELETAL STRUCTURES: No significant osseous abnormality. IMPRESSION: 1. No CT evidence for pulmonary embolism. 2. Small right and trace left pleural effusion. 3. Upper lobe predominant emphysema. 4. Endotracheal tube terminates approximately 4.6 cm the nickie. An enteric tube terminates within th e stomach. Signer Name: Ricci Kyle DO Signed: 03/18/2021 1:13 AM Workstation Name: [id number]
[2021-03-18] MEDS: ALBUTEROL 2.5 MG/3 ML NEBU IH SCH ×2 (03:44→08:20)
--- NOTE | 2021-03-18 05:08 | XRay Report ---
CHEST 1 VIEW 03/18/2021 4:28 AM INDICATION / CLINICAL INFORMATION: follow up respiratory failure. COMPARISON: 03/17/2021 FINDINGS: SUPPORT DEVICES: Unchanged. HEART / MEDIASTINUM: Stable. LUNGS / PLEURA: Bibasilar opacities, right greater than left. No pneumothorax. ADDITIONAL FINDINGS: No significant additional findings. IMPRESSION: 1. Bibasilar opacities. Signer Name: Ricci Kyle DO Signed: 03/18/2021 5:04 AM Workstation Name: [id number]
[2021-03-18] MEDS: methylPREDNISolone Sod Succinate 40 MG/1 ML INJ IV SCH ×2 (06:00→16:15)
[2021-03-18] MEDS: HEPARIN 5,000 UNIT/1 ML VIAL SUB-Q SCH ×3 (07:50→23:34)
[2021-03-18] MEDS: INSULIN LISPRO 100 UNIT/ML SUB-Q SCH ×2 (08:20→15:18)
[2021-03-18] MEDS ORDERED: SODIUM CHLORIDE 0.9% 1000 ML 1,000 ML IV SCH (08:30)
[2021-03-18] MEDS ORDERED: ADENOSINE 6 MG/2 ML INJ ONE (10:29)
[2021-03-18] MEDS ORDERED: METOPROLOL TARTRATE 5 MG/5 ML INJ IV ONE (10:37)
[2021-03-18] MEDS: FAMOTIDINE 20 MG/2 ML INJ IV SCH ×2 (10:45→23:33)
[2021-03-18] MEDS: SENNOSIDES/DOCUSATE SODIUM 8.6/50 MG TAB FEEDTUBE SCH ×2 (10:46→23:33)
--- NOTE | 2021-03-18 13:32 | Consultation ---
History of Present Illness Consult date: 03/18/21 Consult reason: shortness of breath History of present illness: Patient is a 60-year-old female presenting with shortness of breath, acute on chronic hypoxic and hypercapnic respiratory failure requiring intubation and mechanical ventilation. History cannot be obtained. Telemetry showing sinus tachycardia with a heart rate of 135 bpm. Patient is not on any pressor support.Chest x-ray showing evidence of bibasilar opacities. CT chest revealing no pulmonary embolism, trace bilateral pleural fluid and evidence of upper lobe emphysema. Patient is known to have emphysema and is on home oxygen therapy. EKG showing sinus tachycardia with no evidence of ischemic ST-T wave changes. Past History Past Medical History: arthritis, COPD, diabetes, GERD, hypertension, hyperlipidemia Past Surgical History: appendectomy, hysterectomy Social history: smoking (Former Smoker) Family history: no significant family history Medications and Allergies Allergies Allergy/AdvReac Type Severity Reaction Status Date / Time ipratropium [From Atrovent] Allergy Unknown Verified 11/13/20 08:53 Penicillins Allergy Unknown Verified 11/13/20 08:53 lactose AdvReac Unknown Verified 11/13/20 08:53 shellfish derived AdvReac Swelling Verified 11/13/20 08:53 Tea Allergy Itching Uncoded 07/16/20 19:49 Home Medications Medication Instructions Recorded Confirmed Last Taken Type Plecanatide [Trulance] 3 mg PO QDAY 11/14/20 03/18/21 Unknown History AtorvaSTATin 10 mg PO QHS tablet 11/15/20 03/18/21 Unknown Rx Clopidogrel [Plavix] 75 mg PO QDAY tablet 11/15/20 03/18/21 Unknown Rx Metoprolol [Lopressor TAB] 25 mg PO TIDAC tablet 11/15/20 03/18/21 Unknown Rx Montelukast [Singulair] 10 mg PO QHS tablet 11/15/20 03/18/21 Unknown Rx busPIRone [Buspar] 5 mg PO BID tablet 11/15/20 03/18/21 Unknown Rx predniSONE [Deltasone] 20 mg PO QDAY #10 11/15/20 03/18/21 Unknown Rx DULoxetine [Cymbalta] 60 mg PO QDAY 03/18/21 03/18/21 Unknown History Fluticasone/Umeclidin/Vilanter 1 puff PO DAILY 03/18/21 03/18/21 Unknown History [Trelegy Ellipta 100-62.5-25] clonazePAM 1 mg PO BID 03/18/21 03/18/21 Unknown History Active Meds: Active Medications Acetaminophen (Acetaminophen 325 Mg Tab) 650 mg PO Q6H PRN PRN Reason: Pain MILD(1-3)/Fever >100.5/TOVAR Albuterol (Albuterol 2.5 Mg/3 Ml Nebu) 2.5 mg IH PRN PRN PRN Reason: Wheezing Dextrose (Dextrose 50% In Water (25gm) 50 Ml Syringe) 0 ml IV Q30MIN PRN; Protocol PRN Reason: Hypoglycemia Famotidine (Famotidine 20 Mg/2 Ml Inj) 20 mg IV BID BUTCH Last Admin: 03/18/21 10:45 Dose: 20 mg Documented by: Heparin Sodium (Porcine) (Heparin 5,000 Unit/1 Ml Vial) 5,000 unit SUB-Q Q8HR BUTCH Last Admin: 03/18/21 07:50 Dose: 5,000 unit Documented by: Hydrophilic Ointment (Lip Therapy Vaseline) 1 applic TP Q2HR PRN PRN Reason: Dry Lips Midazolam HCl 100 mg/ Sodium (Chloride) 100 mls @ 2 mls/hr IV TITR BUTCH; Protocol Last Titration: 03/18/21 06:25 Dose: 5 mg/hr, 5 mls/hr Documented by: Levofloxacin/Dextrose (Levaquin 750mg/150ml) 750 mg in 150 mls @ 100 mls/hr IV Q24HR BUTCH; Protocol Last Admin: 03/18/21 10:45 Dose: 100 mls/hr Documented by: Sodium Chloride (Nacl 0.9% 1000 Ml) 1,000 mls @ 75 mls/hr IV DIRECT BUTCH Insulin Human Lispro (Insulin Lispro 100 Unit/Ml) 0 unit SUB-Q ACHS BUTCH; Protocol Last Admin: 03/18/21 08:20 Dose: Not Given Documented by: Magnesium Hydroxide (Magnesium Hydroxide (Mom) Oral Liqd Udc) 30 ml PO Q4H PRN PRN Reason: Constipation Methylprednisolone Sodium Succinate (Methylprednisolone Sod Succinate 40 Mg/1 Ml Inj) 40 mg IV Q8HR BUTCH Last Admin: 03/18/21 06:00 Dose: 40 mg Documented by: Midazolam HCl (Midazolam 2 Mg/2 Ml Inj) 2 mg IV Q10MIN PRN PRN Reason: Sedation Last Admin: 03/17/21 18:45 Dose: 2 mg Documented by: Morphine Sulfate (Morphine 2 Mg/1 Ml Inj) 2 mg IV Q4H PRN PRN Reason: Pain, Moderate (4-6) Morphine Sulfate (Morphine 4 Mg/1 Ml Inj) 4 mg IV Q4H PRN PRN Reason: Pain , Severe (7-10) Multi-Ingred Cream/Lotion/Oil/Oint (Mineral Oil/Petrolatum, White Ophth Oint 3.5 Gm) 1 applic OU Q4HR PRN PRN Reason: Dry Eye(s) Senna/Docusate Sodium (Sennosides/Docusate Sodium 8.6/50 Mg Tab) 1 tab FEEDTUBE BID [facility] Last Admin: 03/18/21 10:46 Dose: 1 tab Documented by: Sodium Chloride (Sodium Chloride 0.9% 10 Ml Flush Syringe) 10 ml IV BID [facility] Last Admin: 03/18/21 10:46 Dose: 10 ml Documented by: Sodium Chloride (Sodium Chloride 0.9% 10 Ml Flush Syringe) 10 ml IV PRN PRN PRN Reason: LINE FLUSH Review of Systems ROS unobtainable: due to endotracheal tube Physical Examination Vital Signs Pulse Pulse Ox 162 H 96 03/17/21 17:40 03/17/21 17:40 General appearance: no acute distress Neck: Positive: neck supple Cardiac: Positive: Tachycardia Lungs: Positive: Ventilated Respirations Abdomen: Positive: Soft Extremities: Present: edema Results 03/17/21 17:36 03/17/21 17:36 Cardiac Enzymes 03/17/21 Range/Units 17:36 AST 177 H (5-40) units/L Coagulation 03/17/21 Range/Units 17:37 PT 12.6 (12.2-14.9) Sec. INR 0.85 L (0.87-1.13) APTT 23.3 L (24.2-36.6) Sec. Lipids 03/17/21 Range/Units 17:36 Triglycerides 173 H (2-149) mg/dL Cholesterol 191 (50-199) mg/dL HDL Cholesterol 73 H (40-59) mg/dL Cholesterol/HDL Ratio 2.61 % CBC 03/17/21 Range/Units 17:36 WBC 13.8 H (4.5-11.0) K/mm3 RBC 3.48 L (3.65-5.03) M/mm3 Hgb 7.0 L (10.1-14.3) gm/dl Hct 26.2 L (30.3-42.9) % Plt Count 291 (140-440) K/mm3 Comprehensive Metabolic Panel 03/17/21 Range/Units 17:36 Sodium 141 (137-145) mmol/L Potassium 4.5 (3.6-5.0) mmol/L Chloride 88.2 L (98-107) mmol/L Carbon Dioxide 38 H (22-30) mmol/L BUN 14 (7-17) mg/dL Creatinine 0.6 (0.6-1.2) mg/dL Glucose 129 H (65-100) mg/dL Calcium 9.1 (8.4-10.2) mg/dL AST 177 H (5-40) units/L ALT 251 H (7-56) units/L Alkaline Phosphatase 123 (35-129) units/L Total Protein 5.9 L (6.3-8.2) g/dL Albumin 3.8 L (3.9-5) g/dL - EKG Interpretation EKG shows: tachycardia EKG interpretations - Telemetry EKG Rhythm: Sinus Bradycardia Assessment and Plan Acute combined hypoxic and hypercapnic respiratory failure COVID-19 PCR negative History of emphysema Microcytic anemia Lactic acidosis, Severe sepsis Tachycardia, sinus Reflex sinus tachycardia Echocardiogram July 2020 revealing normal left ventricular ejection fraction Recommendations: No cardiac intervention is needed. Start low-dose IV Lopressor for rate control. Continue work-up for severe sepsis.
[2021-03-18] MEDS: METOPROLOL TARTRATE 5 MG/5 ML INJ IV SCH (17:22)
[2021-03-18] MEDS: ALBUTEROL 2.5 MG/3 ML NEBU IH PRN (20:14)
[2021-03-18] MEDS ORDERED: fentaNYL 100 MCG/2 ML INJ ONE (20:25)
--- NOTE | 2021-03-18 20:42 | Consultation ---
History of Present Illness Consult date: 03/18/21 Requesting physician: NITO CATHERINE Reason for consult: other (elevated HR, dyspnea, weakness) History of present illness: 60 y/o female, well known to me admitted with shortness of breath. Found to be in SVT and then afib per documentation. Was intubated in the ED secondary to respiratory distress currently on 35% and satting 92. Current HR is 170 and BP is elevated, very similar presentation to admission. Currently on versed at 5, eyes are open but not following commands. Had negative CTA and Head CT done to day. CXR is stable, maybe a right lower lobe infiltrate. Patient is chronically on steroids and suffers from severe anxiety. She does self medicate with prednisone and we have been trying to control her anxiety. She is currently on Palliative Care with [facility] but no Hospice. Past History Past Medical History: arthritis, COPD, diabetes, GERD, hypertension, hyperlipidemia Past Surgical History: appendectomy, hysterectomy Social history: smoking (Former Smoker) Family history: no significant family history Medications and Allergies Allergies Allergy/AdvReac Type Severity Reaction Status Date / Time ipratropium [From Atrovent] Allergy Unknown Verified 11/13/20 08:53 Penicillins Allergy Unknown Verified 11/13/20 08:53 lactose AdvReac Unknown Verified 11/13/20 08:53 shellfish derived AdvReac Swelling Verified 11/13/20 08:53 Tea Allergy Itching Uncoded 07/16/20 19:49 Home Medications Medication Instructions Recorded Confirmed Last Taken Type Plecanatide [Trulance] 3 mg PO QDAY 11/14/20 03/18/21 Unknown History AtorvaSTATin 10 mg PO QHS tablet 11/15/20 03/18/21 Unknown Rx Clopidogrel [Plavix] 75 mg PO QDAY tablet 11/15/20 03/18/21 Unknown Rx Metoprolol [Lopressor TAB] 25 mg PO TIDAC tablet 11/15/20 03/18/21 Unknown Rx Montelukast [Singulair] 10 mg PO QHS tablet 11/15/20 03/18/21 Unknown Rx busPIRone [Buspar] 5 mg PO BID tablet 11/15/20 03/18/21 Unknown Rx predniSONE [Deltasone] 20 mg PO QDAY #10 11/15/20 03/18/21 Unknown Rx DULoxetine [Cymbalta] 60 mg PO QDAY 03/18/21 03/18/21 Unknown History Fluticasone/Umeclidin/Vilanter 1 puff PO DAILY 03/18/21 03/18/21 Unknown History [Trelegy Ellipta 100-62.5-25] clonazePAM 1 mg PO BID 03/18/21 03/18/21 Unknown History Active Meds: Active Medications Acetaminophen (Acetaminophen 325 Mg Tab) 650 mg PO Q6H PRN PRN Reason: Pain MILD(1-3)/Fever >100.5/TOVAR Albuterol (Albuterol 2.5 Mg/3 Ml Nebu) 2.5 mg IH PRN PRN PRN Reason: Wheezing Last Admin: 03/18/21 20:14 Dose: 2.5 mg Documented by: Dextrose (Dextrose 50% In Water (25gm) 50 Ml Syringe) 0 ml IV Q30MIN PRN; Protocol PRN Reason: Hypoglycemia Famotidine (Famotidine 20 Mg/2 Ml Inj) 20 mg IV BID BUTCH Last Admin: 03/18/21 10:45 Dose: 20 mg Documented by: Fentanyl (Fentanyl 100 Mcg/2 Ml Inj) 100 mcg IV ONCE ONE Stop: 03/18/21 20:24 Heparin Sodium (Porcine) (Heparin 5,000 Unit/1 Ml Vial) 5,000 unit SUB-Q Q8HR BUTCH Last Admin: 03/18/21 16:15 Dose: 5,000 unit Documented by: Hydrophilic Ointment (Lip Therapy Vaseline) 1 applic TP Q2HR PRN PRN Reason: Dry Lips Midazolam HCl 100 mg/ Sodium (Chloride) 100 mls @ 2 mls/hr IV TITR BUTCH; Protocol Last Titration: 03/18/21 06:25 Dose: 5 mg/hr, 5 mls/hr Documented by: Levofloxacin/Dextrose (Levaquin 750mg/150ml) 750 mg in 150 mls @ 100 mls/hr IV Q24HR BUTCH; Protocol Last Admin: 03/18/21 10:45 Dose: 100 mls/hr Documented by: Sodium Chloride (Nacl 0.9% 1000 Ml) 1,000 mls @ 75 mls/hr IV DIRECT BUTCH Propofol (Diprivan 10 Mg/Ml) 1,000 mg in 100 mls @ 4.5 mls/hr IV TITR BUTCH; Protocol Insulin Human Lispro (Insulin Lispro 100 Unit/Ml) 0 unit SUB-Q ACHS [facility]; Protocol Last Admin: 03/18/21 15:18 Dose: Not Given Documented by: Magnesium Hydroxide (Magnesium Hydroxide (Mom) Oral Liqd Udc) 30 ml PO Q4H PRN PRN Reason: Constipation Methylprednisolone Sodium Succinate (Methylprednisolone Sod Succinate 40 Mg/1 Ml Inj) 40 mg IV Q8HR [facility] Last Admin: 03/18/21 16:15 Dose: 40 mg Documented by: Metoprolol Tartrate (Metoprolol Tartrate 5 Mg/5 Ml Inj) 2.5 mg IV Q6HR [facility] Last Admin: 03/18/21 17:22 Dose: 2.5 mg Documented by: Midazolam HCl (Midazolam 2 Mg/2 Ml Inj) 2 mg IV Q10MIN PRN PRN Reason: Sedation Last Admin: 03/17/21 18:45 Dose: 2 mg Documented by: Morphine Sulfate (Morphine 2 Mg/1 Ml Inj) 2 mg IV Q4H PRN PRN Reason: Pain, Moderate (4-6) Morphine Sulfate (Morphine 4 Mg/1 Ml Inj) 4 mg IV Q4H PRN PRN Reason: Pain , Severe (7-10) Multi-Ingred Cream/Lotion/Oil/Oint (Mineral Oil/Petrolatum, White Ophth Oint 3.5 Gm) 1 applic OU Q4HR PRN PRN Reason: Dry Eye(s) Senna/Docusate Sodium (Sennosides/Docusate Sodium 8.6/50 Mg Tab) 1 tab FEEDTUBE BID [facility] Last Admin: 03/18/21 10:46 Dose: 1 tab Documented by: Sodium Chloride (Sodium Chloride 0.9% 10 Ml Flush Syringe) 10 ml IV BID [facility] Last Admin: 03/18/21 10:46 Dose: 10 ml Documented by: Sodium Chloride (Sodium Chloride 0.9% 10 Ml Flush Syringe) 10 ml IV PRN PRN PRN Reason: LINE FLUSH Review of Systems ROS unobtainable: due to endotracheal tube, due to mental status Physical Examination Vital signs: Vital Signs Pulse Pulse Ox 162 H 96 03/17/21 17:40 03/17/21 17:40 Results - Laboratory Findings CBC and BMP: 03/19/21 04:59 03/19/21 04:59 ABG ABG pH 7.432 pH Units (7.350-7.450) 03/18/21 00:25 ABG pCO2 61.7 mm Hg 03/18/21 00:25 ABG pO2 68.1 mm Hg (80.0-90.0) L 03/18/21 00:25 ABG O2 Saturation 97.9 % (95.0-99.0) 03/18/21 00:25 PT/INR, D-dimer PT 12.6 Sec. (12.2-14.9) 03/17/21 17:37 INR 0.85 (0.87-1.13) L 03/17/21 17:37 D-Dimer 947.92 ng/mlDDU (0-234) H 03/17/21 17:37 Abnormal lab findings: Abnormal Labs 03/17/21 03/17/21 03/17/21 17:36 17:36 17:37 WBC 13.8 H RBC 3.48 L Hgb 7.0 L Hct 26.2 L MCV 75 L MCH 20 L MCHC 27 L RDW 25.4 H Nucleated RBC % 7.0 H Seg Neutrophils # Man 8.7 H INR 0.85 L APTT 23.3 L D-Dimer 947.92 H ABG pO2 ABG HCO3 ABG Base Excess ABG Hemoglobin Chloride 88.2 L Carbon Dioxide 38 H Glucose 129 H Lactic Acid AST 177 H ALT 251 H Ammonia Troponin T 0.036 H Total Protein 5.9 L Albumin 3.8 L Triglycerides 173 H HDL Cholesterol 73 H 03/17/21 03/17/21 03/17/21 18:15 18:40 18:40 WBC RBC Hgb Hct MCV MCH MCHC RDW Nucleated RBC % Seg Neutrophils # Man INR APTT D-Dimer ABG pO2 94.4 H ABG HCO3 44.8 H ABG Base Excess 16.6 H ABG Hemoglobin Chloride Carbon Dioxide Glucose Lactic Acid 4.00 H* AST ALT Ammonia 116.0 H Troponin T Total Protein Albumin Triglycerides HDL Cholesterol 03/17/21 03/18/21 23:36 00:25 WBC RBC Hgb Hct MCV MCH MCHC RDW Nucleated RBC % Seg Neutrophils # Man INR APTT D-Dimer ABG pO2 68.1 L ABG HCO3 40.2 H ABG Base Excess 14.4 H ABG Hemoglobin 6.5 L Chloride Carbon Dioxide Glucose Lactic Acid 4.00 H* AST ALT Ammonia Troponin T Total Protein Albumin Triglycerides HDL Cholesterol - Diagnostic Findings Chest x-ray: image reviewed Assessment and Plan 60 y/o female with acute on chronic respiratory failure, SVT and HTN likely all related to anxiety and stress 1. Wean Versed and place on Diprovan drip 2. Will give Fent 100 IV x1 now and order drip if needed for pain 3. Spoke with over the phone to get more history. Sounds like a panic attack not aborted by xanax therapy. Did check Tylenol level as patient has been in pain from fall 4. Elevated LFT's former drinker but confirms she has not been drinking. Ordered RUQ ultrasound and need to repeat LFT's tomorrow 5. Reviewed cards note, and they do not want to treat tachycardia or elevated bp, likely needs more sedation Guarded prognosis CCT 31 minutes.
[2021-03-18] MEDS ORDERED: fentaNYL 100 MCG/2 ML INJ IV ONE (21:00)
[2021-03-19] MEDS: METOPROLOL TARTRATE 5 MG/5 ML INJ IV SCH ×5 (01:15→23:40)
[2021-03-19] MEDS: methylPREDNISolone Sod Succinate 125 MG/2 ML INJ IV SCH ×5 (01:15→23:40)
[2021-03-19] MEDS: ALBUTEROL 2.5 MG/3 ML NEBU IH PRN (03:28)
[2021-03-19] MEDS: MIDAZOLAM 2 MG/2 ML INJ IV PRN (03:37)
[2021-03-19] MEDS: MIDAZOLAM 100 MG in SODIUM CHLORIDE 0.9% 80 ML IV SCH (03:37)
[2021-03-19 03:48] LABS: ABG Base Excess 8.1 mmol/L (-2.0-3.0); ABG HCO3 31.4 mmol/L (20.0-26.0); ABG Methemoglobin 0.4 % (0.0-1.5); ABG Oxygen Saturation 99.6 % (95.0-99.0); ABG PCO2 38.4 mm Hg; ABG PH 7.531 pH Units (7.350-7.450); ABG PO2 49.6 mm Hg (80.0-90.0)
--- NOTE | 2021-03-19 03:58 | XRay Report ---
CHEST 1 VIEW 03/19/2021 2:47 AM INDICATION / CLINICAL INFORMATION: follow up respiratory failure. COMPARISON: 03/18/2021 FINDINGS: SUPPORT DEVICES: Unchanged. HEART / MEDIASTINUM: Stable. LUNGS / PLEURA: No significant change in bibasilar opacities. No pneumothorax. ADDITIONAL FINDINGS: No significant additional findings. IMPRESSION: 1. No significant change. Signer Name: Ricci Kyle DO Signed: 03/19/2021 3:53 AM Workstation Name: [id number]
[2021-03-19 05:35] LABS: Mean Corpuscular HGB Conc 27 % (30-34); Mean Corpuscular Volume 75 fl (79-97); Platelet Count 389 K/mm3 (140-440); Red Blood Count 3.43 M/mm3 (3.65-5.03)
[2021-03-19 05:38] LABS: Hematocrit 25.6 % (30.3-42.9); Red Cell Distribution Width 25.6 % (13.2-15.2)
[2021-03-19 05:41] LABS: Blood Urea Nitrogen 12 mg/dL (7-17); Calcium 8.6 mg/dL (8.4-10.2); Hemolysis Index 5
[2021-03-19 05:46] LABS: BUN/Creatinine Ratio 20
[2021-03-19] MEDS: HEPARIN 5,000 UNIT/1 ML VIAL SUB-Q SCH ×3 (06:39→22:12)
--- NOTE | 2021-03-19 07:16 | Progress Note ---
Assessment and Plan - Patient Problems (1) Acute respiratory failure with hypoxia Current Visit: No Status: Acute Plan to address problem: Patient currently intubated and sedated. Continue vent support (2) COPD (chronic obstructive pulmonary disease) Current Visit: No Status: Chronic Qualifiers: COPD type: unspecified COPD Qualified Code(s): J44.9 - Chronic obstructive pulmonary disease, unspecified Plan to address problem: Continue duo nebs, steroids and IV antibiotics (3) HTN (hypertension) Current Visit: No Status: Chronic Qualifiers: Hypertension type: essential hypertension Qualified Code(s): I10 - Essential (primary) hypertension Plan to address problem: Adjust antihypertensives as necessary (4) Atrial fibrillation with RVR IV Lopressor as needed (5) DVT prophylaxis Current Visit: No Status: Acute Plan to address problem: Patient placed on subcutaneous heparin. (6) Full code status Current Visit: No Status: Acute Plan to address problem: Patient is a full code. Critical care statement The high probability OF a clinically significant sudden or life-threatening deterioration of the cardiorespiratory system and endocrine system required my full and direct attention, intervention and postoperative management. The aggregate critical care time was 40 minutes. The time is in addition to time spent performing reported procedures but includes the followin: Data review and interpretation 2: Patient assessment and monitoring of vital signs 3: Documentation 4:: Medication orders and management Subjective Date of service: 03/18/21 Principal diagnosis: Atrial fibrillation with RVR, respiratory failure Interval history: 60-year-old -Turkish female with known history of COPD, diabetes me llitus and hypertension presenting to the emergency room today via EMS With a complaint of shortness of breath. Upon arrival of EMS patient was found to be in SVT with a heart rate of about 200 and blood pressure was quite elevated with systolic in the 200. Patient had about 6 mg of adenosine without any significant change and then subsequently had 12 mg of adenosine with improvement of her heart rate. Upon arrival in the emergency room patient was found to be in atrial fibrillation with RVR, found to be dyspneic. Record indicates that patient has had recurrent hypoxic respiratory failure, C OPD with oxygen dependence, obstructive sleep apnea. Patient was subsequently intubated in the emergency room. Most of the history was gotten from the ER staff as patient is already intubated and sedated. 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 Gage has been consulted by the ER physician. Work-up in the emergency room today shows elevated white count of about 13.8, lactic acid of 4, elevated liver enzymes, ammonia level of 116, troponin of 0.036. Chest x-ray, CT angiogram and CT of the head were unremarkable. 03/18/2021 Patient is intubated and on vent support Patient is in sinus tachycardia Objective - Exam Narrative Exam: Patient is intubated and on mechanical ventilation - Constitutional Vitals: Vital Signs - 12hr 03/18/21 03/18/21 03/18/21 19:31 19:40 19:45 Temperature 99.7 F H Pulse Rate 153 H 158 H 146 H Pulse Rate [ Bilateral] Respiratory 18 23 4 L Rate Respiratory Rate [Bilateral ] Blood Pressure 160/101 160/101 Blood Pressure 160/100 [Right] O2 Sat by Pulse 95 98 97 Oximetry 03/18/21 03/18/21 03/18/21 20:00 20:16 20:31 Temperature Pulse Rate 137 H 151 H Pulse Rate [ 130 H Bilateral] Respiratory 42 H 41 H Rate Respiratory 18 Rate [Bilateral ] Blood Pressure 151/82 154/86 Blood Pressure [Right] O2 Sat by Pulse 95 91 Oximetry 03/18/21 03/18/21 03/18/21 20:45 21:00 21:15 Temperature Pulse Rate 135 H 128 H 124 H Pulse Rate [ Bilateral] Respiratory 14 18 14 Rate Respiratory Rate [Bilateral ] Blood Pressure 89/54 93/58 97/58 Blood Pressure [Right] O2 Sat by Pulse 95 99 98 Oximetry 03/18/21 03/18/21 03/18/21 21:30 21:45 22:00 Temperature Pulse Rate 120 H 120 H 114 H Pulse Rate [ Bilateral] Respiratory 14 18 15 Rate Respiratory Rate [Bilateral ] Blood Pressure 101/62 105/65 102/58 Blood Pressure [Right] O2 Sat by Pulse 99 98 Oximetry 03/18/21 03/18/21 03/18/21 22:15 22:30 23:06 Temperature Pulse Rate 117 H 119 H 118 H Pulse Rate [ Bilateral] Respiratory 18 18 0 L Rate Respiratory Rate [Bilateral ] Blood Pressure 92/68 101/68 105/66 Blood Pressure [Right] O2 Sat by Pulse 100 99 99 Oximetry 03/18/21 03/18/21 03/18/21 23:43 23:45 23:47 Temperature Pulse Rate 120 H 120 H 120 H Pulse Rate [ Bilateral] Respiratory 23 21 16 Rate Respiratory Rate [Bilateral ] Blood Pressure 98/73 98/73 Blood Pressure [Right] O2 Sat by Pulse 100 100 100 Oximetry 03/19/21 03/19/21 03/19/21 00:00 00:15 00:30 Temperature 97.8 F Pulse Rate 122 H 124 H 112 H Pulse Rate [ Bilateral] Respiratory 21 16 22 Rate Respiratory Rate [Bilateral ] Blood Pressure 87/68 96/63 104/71 Blood Pressure [Right] O2 Sat by Pulse 100 100 100 Oximetry 03/19/21 03/19/21 03/19/21 00:45 01:00 01:15 Temperature Pulse Rate 111 H 111 H 111 H Pulse Rate [ Bilateral] Respiratory 17 15 42 H Rate Respiratory Rate [Bilateral ] Blood Pressure 97/70 101/74 103/74 Blood Pressure [Right] O2 Sat by Pulse 100 100 100 Oximetry 03/19/21 03/19/21 03/19/21 01:30 01:45 03:23 Temperature Pulse Rate 113 H 116 H 120 H Pulse Rate [ Bilateral] Respiratory 20 27 H 0 L Rate Respiratory Rate [Bilateral ] Blood Pressure 114/69 121/78 109/79 Blood Pressure [Right] O2 Sat by Pulse 100 100 100 Oximetry 03/19/21 03/19/21 03/19/21 03:41 04:20 04:23 Temperature Pulse Rate 108 H Pulse Rate [ 119 H Bilateral] Respiratory 22 Rate Respiratory 20 Rate [Bilateral ] Blood Pressure Blood Pressure [Right] O2 Sat by Pulse 100 Oximetry General appearance: Present: severe distress - EENT Eyes: PERRL Ears: bilateral: normal - Neck Neck: supple, normal ROM - Respiratory Respiratory effort: normal Respiratory: bilateral: CTA - Breasts Breasts: normal - Cardiovascular Heart rate: 150 Rhythm: regular Heart Sounds: Present: S1 & S2. Absent: gallop, rub Extremities: pulses intact, No edema, normal color, Full ROM - Gastrointestinal General gastrointestinal: Present: soft, non-tender, non-distended, normal bowel sounds - Genitourinary Female genitourinary: normal - Integumentary Integumentary: clear, warm, dry - Musculoskeletal Musculoskeletal: 1, strength equal bilaterally - Neurologic Neurologic: other (Patient intubated) - Psychiatric Psychiatric: other (Patient intubated) - Labs CBC & Chem 7: 03/19/21 04:59 03/19/21 04:59 Labs: Abnormal lab results 03/18/21 03/19/21 03/19/21 Range/Units 23:07 00:50 03:25 RBC (3.65-5.03) M/mm3 Hgb (10.1-14.3) gm/dl Hct (30.3-42.9) % MCV (79-97) fl MCH (28-32) pg MCHC (30-34) % RDW (13.2-15.2) % ABG pH 7.531 H (7.350-7.450) pH Units ABG pO2 49.6 L (80.0-90.0) mm Hg ABG HCO3 31.4 H (20.0-26.0) mmol/L ABG O2 Saturation 99.6 H (95.0-99.0) % ABG Base Excess 8.1 H (-2.0-3.0) mmol/L ABG Hemoglobin 7.2 L (12.0-16.0) gm/dl Chloride (98-107) mmol/L Glucose (65-100) mg/dL POC Glucose 127 H (70-105) mg/dL Acetaminophen 5.0 L (10.0-30.0) ug/mL 03/19/21 03/19/21 Range/Units 04:59 04:59 RBC 3.43 L (3.65-5.03) M/mm3 Hgb 7.0 L (10.1-14.3) gm/dl Hct 25.6 L (30.3-42.9) % MCV 75 L (79-97) fl MCH 20 L (28-32) pg MCHC 27 L (30-34) % RDW 25.6 H (13.2-15.2) % ABG pH (7.350-7.450) pH Units ABG pO2 (80.0-90.0) mm Hg ABG HCO3 (20.0-26.0) mmol/L ABG O2 Saturation (95.0-99.0) % ABG Base Excess (-2.0-3.0) mmol/L ABG Hemoglobin (12.0-16.0) gm/dl Chloride 89.5 L (98-107) mmol/L Glucose 121 H (65-100) mg/dL POC Glucose (70-105) mg/dL Acetaminophen (10.0-30.0) ug/mL Short CBC 03/19/21 Range/Units 04:59 WBC 9.9 (4.5-11.0) K/mm3 Hgb 7.0 L (10.1-14.3) gm/dl Hct 25.6 L (30.3-42.9) % Plt Count 389 (140-440) K/mm3 BMP 03/19/21 04:59 Sodium 138 Potassium 3.9 Chloride 89.5 L Carbon Dioxide 29 D BUN 12 Creatinine 0.6 Glucose 121 H Calcium 8.6 HEART Score - HEART Score Troponin: Troponin T 0.036 ng/mL (0.00-0.029) H 03/17/21 17:36
[2021-03-19 07:18] LABS: Anisocytosis 1+; Hypochromasia 1+; Total Cells Counted 100
[2021-03-19 07:19] LABS: Large Platelets Few; Ovalocytes 1+; Platelet Estimate Consistent w Auto
[2021-03-19 07:23] LABS: Band Neutrophils # (Manual) 0.9 K/mm3
[2021-03-19] MEDS: FAMOTIDINE 20 MG/2 ML INJ IV SCH (09:42)
--- NOTE | 2021-03-19 10:48 | Electrocardiograph Report ---
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
--- NOTE | 2021-03-19 10:49 | Electrocardiograph Report ---
[facility] Test Date: 2021-03-17 Test Time: 20:03:48 Pat Name: LUIS KHAN Department: Room: A254 Gender: F Software Support Representative: ARLETH : 1960 Requested By: RITA VILLALOBOS Order Number: [id number] Reading MD: Mirian Aldrich Measurements Intervals [place] Rate: 149 P: 78 WI: 140 QRS: 40 QRSD: 57 T: 77 QT: 289 QTc: 456 Interpretive Statements Sinus tachycardia Frequent PVCs Low voltage, precordial leads Compared to ECG 03/17/2021 17:41:16 Ventricular premature complex(es) now present Electronically Signed On 03-19-2021 10:49:09 EST by Mirian Aldrich
--- NOTE | 2021-03-19 10:55 | Electrocardiograph Report ---
[facility] Test Date: 2021-03-18 Test Time: 10:18:18 Pat Name: LUIS KHAN Department: Room: A254 Gender: F Steam Shovel Engineer: YFN : 1960 Requested By: RITA VILLALOBOS Order Number: [id number] Reading MD: Mirian Aldrich Measurements Intervals [place] Rate: 154 P: 0 MS: 142 QRS: 56 QRSD: 64 T: 67 QT: 265 QTc: 425 Interpretive Statements Multifocal atrial tachycardia Or rapid atrial fibrillation Low voltage, precordial leads Compared to ECG 03/17/2021 20:03:48 Multifocal atrial tachycardia has replaced sinus tachycardia Electronically Signed On 03-19-2021 10:54:31 EST by Mirian Aldrich
[2021-03-19 10:56] LABS: ABG Base Excess 7.7 mmol/L (-2.0-3.0); ABG HCO3 31.6 mmol/L (20.0-26.0); ABG Methemoglobin 0.4 % (0.0-1.5); ABG Oxygen Saturation 98.1 % (95.0-99.0); ABG PH 7.494 pH Units (7.350-7.450); ABG PO2 107.3 mm Hg (80.0-90.0)
--- NOTE | 2021-03-19 11:58 | Progress Note ---
Assessment and Plan - Patient Problems (1) Respiratory failure Current Visit: Yes Status: Acute Plan to address problem: Patient presents with respiratory failure due to COPD exacerbation. Sinus tachycardia is a physiologic response to respiratory failure and sepsis and hypoxia. Continue supportive management and current treatment of COPD exacerbation. Subjective Date of service: 03/19/21 Principal diagnosis: Atrial fibrillation with RVR, respiratory failure Interval history: Patient is sedated, on the vent. On manager monitoring, there is a sinus tac hycardia 120, blood pressure 107 systolic. Objective Vital Signs Temp Pulse Pulse Pulse Resp Resp BP 03/19/21 09:33 112 H 133/87 03/19/21 09:00 110 H 20 03/19/21 08:23 110 H 03/19/21 08:00 98.5 F 03/19/21 04:23 108 H 03/19/21 04:20 22 03/19/21 03:41 119 H 20 03/19/21 03:23 120 H 0 L 109/79 03/19/21 01:45 116 H 27 H 121/78 03/19/21 01:30 113 H 20 114/69 03/19/21 01:15 111 H 42 H 103/74 03/19/21 01:00 111 H 15 101/74 03/19/21 00:45 111 H 17 97/70 03/19/21 00:30 112 H 22 104/71 03/19/21 00:15 124 H 16 96/63 03/19/21 00:00 97.8 F 122 H 21 87/68 03/18/21 23:47 120 H 16 98/73 03/18/21 23:45 120 H 21 98/73 03/18/21 23:43 120 H 23 03/18/21 23:06 118 H 0 L 105/66 03/18/21 22:30 119 H 18 101/68 03/18/21 22:15 117 H 18 92/68 03/18/21 22:00 114 H 15 102/58 03/18/21 21:45 120 H 18 105/65 03/18/21 21:30 120 H 14 101/62 03/18/21 21:15 124 H 14 97/58 03/18/21 21:00 128 H 18 93/58 03/18/21 20:45 135 H 14 89/54 03/18/21 20:31 151 H 41 H 154/86 03/18/21 20:16 130 H 18 03/18/21 20:00 137 H 42 H 151/82 03/18/21 19:45 146 H 4 L 160/101 03/18/21 19:40 99.7 F H 158 H 23 03/18/21 19:31 153 H 18 160/101 03/18/21 19:00 135 H 43 H 132/77 03/18/21 18:31 164 H 36 H 144/83 03/18/21 18:00 135 H 38 H 144/83 03/18/21 17:30 137 H 34 H 149/75 03/18/21 17:00 130 H 15 96/46 03/18/21 16:31 124 H 23 109/65 03/18/21 16:01 158 H 29 H 152/89 03/18/21 15:31 153 H 20 131/98 03/18/21 15:01 171 H 31 H 129/93 03/18/21 15:00 166 H 142/91 03/18/21 14:30 145 H 29 H 142/91 03/18/21 14:00 130 H 33 H 127/79 03/18/21 13:30 132 H 42 H 121/80 03/18/21 13:00 131 H 18 133/84 03/18/21 12:30 131 H 38 H 135/85 03/18/21 12:01 148 H 17 120/86 BP Pulse Ox 03/19/21 09:33 100 03/19/21 09:00 100 03/19/21 08:23 03/19/21 08:00 03/19/21 04:23 03/19/21 04:20 100 03/19/21 03:41 03/19/21 03:23 100 03/19/21 01:45 100 03/19/21 01:30 100 03/19/21 01:15 100 03/19/21 01:00 100 03/19/21 00:45 100 03/19/21 00:30 100 03/19/21 00:15 100 03/19/21 00:00 100 03/18/21 23:47 100 03/18/21 23:45 100 03/18/21 23:43 100 03/18/21 23:06 99 03/18/21 22:30 99 03/18/21 22:15 100 03/18/21 22:00 98 03/18/21 21:45 99 03/18/21 21:30 03/18/21 21:15 98 03/18/21 21:00 99 03/18/21 20:45 95 03/18/21 20:31 91 03/18/21 20:16 03/18/21 20:00 95 03/18/21 19:45 97 03/18/21 19:40 160/100 98 03/18/21 19:31 95 03/18/21 19:00 97 03/18/21 18:31 94 03/18/21 18:00 99 03/18/21 17:30 96 03/18/21 17:00 100 03/18/21 16:31 98 03/18/21 16:01 96 03/18/21 15:31 96 03/18/21 15:01 95 03/18/21 15:00 100 03/18/21 14:30 97 03/18/21 14:00 98 03/18/21 13:30 99 03/18/21 13:00 100 03/18/21 12:30 97 03/18/21 12:01 97 - Physical Examination General: Other (Intubated, sedated, on the vent) Neck: Positive: neck supple Cardiac: Positive: Regular Rhythm Lungs: Positive: Decreased Breath Sounds Neuro: Positive: Weakness (Intubated, sedated, on the vent) Abdomen: Positive: Soft Skin: Positive: Clear Extremities: Present: edema (Trace) - Labs and Meds CBC 03/19/21 Range/Units 04:59 WBC 9.9 (4.5-11.0) K/mm3 RBC 3.43 L (3.65-5.03) M/mm3 Hgb 7.0 L (10.1-14.3) gm/dl Hct 25.6 L (30.3-42.9) % Plt Count 389 (140-440) K/mm3 Comprehensive Metabolic Panel 03/19/21 Range/Units 04:59 Sodium 138 (137-145) mmol/L Potassium 3.9 (3.6-5.0) mmol/L Chloride 89.5 L (98-107) mmol/L Carbon Dioxide 29 D (22-30) mmol/L BUN 12 (7-17) mg/dL Creatinine 0.6 (0.6-1.2) mg/dL Glucose 121 H (65-100) mg/dL Calcium 8.6 (8.4-10.2) mg/dL
--- NOTE | 2021-03-19 12:46 | Progress Note ---
Assessment and Plan 60 y/o female with acute on chronic respiratory failure, SVT and HTN likely all related to anxiety and stress 03/19/21: Continue sedation. Wean FiO2 for sats >88%. consider weaning steroid tomorrow. Follow up RUQ and trend LFT's 1. Wean Versed and place on Diprovan drip 2. Will give Fent 100 IV x1 now and order drip if needed for pain 3. Spoke with over the phone to get more history. Sounds like a panic attack not aborted by xanax therapy. Did check Tylenol level as patient has been in pain from fall 4. Elevated LFT's former drinker but confirms she has not been drinking. Ordered RUQ ultrasound and need to repeat LFT's tomorrow 5. Reviewed cards note, and they do not want to treat tachycardia or elevated bp, likely needs more sedation Guarded prognosis CCT 31 minutes. Subjective Date of service: 03/19/21 Principal diagnosis: Atrial fibrillation with RVR, respiratory failure Interval history: Versed was not weaned off and diprovan was stopped. Vitals are better, patient does appear more comfortable. Objective Vital Signs - 12hr 03/19/21 03/19/21 03/19/21 01:00 01:15 01:30 Temperature Pulse Rate 111 H 111 H 113 H Pulse Rate [ Bilateral] Pulse Rate [ From Monitor] Respiratory 15 42 H 20 Rate Respiratory Rate [Bilateral ] Blood Pressure 101/74 103/74 114/69 O2 Sat by Pulse 100 100 100 Oximetry 03/19/21 03/19/21 03/19/21 01:45 03:23 03:41 Temperature Pulse Rate 116 H 120 H Pulse Rate [ 119 H Bilateral] Pulse Rate [ From Monitor] Respiratory 27 H 0 L Rate Respiratory 20 Rate [Bilateral ] Blood Pressure 121/78 109/79 O2 Sat by Pulse 100 100 Oximetry 03/19/21 03/19/21 03/19/21 04:20 04:23 08:00 Temperature 98.5 F Pulse Rate 108 H Pulse Rate [ Bilateral] Pulse Rate [ From Monitor] Respiratory 22 Rate Respiratory Rate [Bilateral ] Blood Pressure O2 Sat by Pulse 100 Oximetry 03/19/21 03/19/21 03/19/21 08:23 09:00 09:33 Temperature Pulse Rate 110 H 112 H Pulse Rate [ Bilateral] Pulse Rate [ 110 H From Monitor] Respiratory 20 Rate Respiratory Rate [Bilateral ] Blood Pressure 133/87 O2 Sat by Pulse 100 100 Oximetry 03/19/21 03/19/21 12:00 12:01 Temperature Pulse Rate 125 H 144 H Pulse Rate [ Bilateral] Pulse Rate [ From Monitor] Respiratory Rate Respiratory Rate [Bilateral ] Blood Pressure 122/79 O2 Sat by Pulse 100 Oximetry CBC and BMP: 03/21/21 09:28 03/21/21 09:28 ABG, PT/INR, D-dimer: ABG ABG pH 7.494 pH Units (7.350-7.450) H 03/19/21 10:37 ABG pCO2 42.0 mm Hg 03/19/21 10:37 ABG pO2 107.3 mm Hg (80.0-90.0) H 03/19/21 10:37 ABG O2 Saturation 98.1 % (95.0-99.0) 03/19/21 10:37 PT/INR, D-dimer PT 12.6 Sec. (12.2-14.9) 03/17/21 17:37 INR 0.85 (0.87-1.13) L 03/17/21 17:37 D-Dimer 947.92 ng/mlDDU (0-234) H 03/17/21 17:37 Abnormal lab findings: Abnormal Labs 03/17/21 03/17/21 03/17/21 17:36 17:36 17:37 WBC 13.8 H RBC 3.48 L Hgb 7.0 L Hct 26.2 L MCV 75 L MCH 20 L MCHC 27 L RDW 25.4 H Seg Neuts % (Manual) Monocytes % (Manual) Nucleated RBC % 7.0 H Seg Neutrophils # Man 8.7 H Lymphocytes # (Manual) INR 0.85 L APTT 23.3 L D-Dimer 947.92 H ABG pH ABG pO2 ABG HCO3 ABG O2 Saturation ABG Base Excess ABG Hemoglobin Chloride 88.2 L Carbon Dioxide 38 H Glucose 129 H POC Glucose Lactic Acid AST 177 H ALT 251 H Ammonia Troponin T 0.036 H Total Protein 5.9 L Albumin 3.8 L Triglycerides 173 H HDL Cholesterol 73 H Acetaminophen 03/17/21 03/17/21 03/17/21 18:15 18:40 18:40 WBC RBC Hgb Hct MCV MCH MCHC RDW Seg Neuts % (Manual) Monocytes % (Manual) Nucleated RBC % Seg Neutrophils # Man Lymphocytes # (Manual) INR APTT D-Dimer ABG pH ABG pO2 94.4 H ABG HCO3 44.8 H ABG O2 Saturation ABG Base Excess 16.6 H ABG Hemoglobin Chloride Carbon Dioxide Glucose POC Glucose Lactic Acid 4.00 H* AST ALT Ammonia 116.0 H Troponin T Total Protein Albumin Triglycerides HDL Cholesterol Acetaminophen 03/17/21 03/18/21 03/18/21 23:36 00:25 23:07 WBC RBC Hgb Hct MCV MCH MCHC RDW Seg Neuts % (Manual) Monocytes % (Manual) Nucleated RBC % Seg Neutrophils # Man Lymphocytes # (Manual) INR APTT D-Dimer ABG pH ABG pO2 68.1 L ABG HCO3 40.2 H ABG O2 Saturation ABG Base Excess 14.4 H ABG Hemoglobin 6.5 L Chloride Carbon Dioxide Glucose POC Glucose Lactic Acid 4.00 H* AST ALT Ammonia Troponin T Total Protein Albumin Triglycerides HDL Cholesterol Acetaminophen 5.0 L 03/19/21 03/19/21 03/19/21 00:50 03:25 04:59 WBC RBC 3.43 L Hgb 7.0 L Hct 25.6 L MCV 75 L MCH 20 L MCHC 27 L RDW 25.6 H Seg Neuts % (Manual) 91.0 H Monocytes % (Manual) 9.0 H Nucleated RBC % 3.0 H Seg Neutrophils # Man 9.0 H Lymphocytes # (Manual) 0.0 L INR APTT D-Dimer ABG pH 7.531 H ABG pO2 49.6 L ABG HCO3 31.4 H ABG O2 Saturation 99.6 H ABG Base Excess 8.1 H ABG Hemoglobin 7.2 L Chloride Carbon Dioxide Glucose POC Glucose 127 H Lactic Acid AST ALT Ammonia Troponin T Total Protein Albumin Triglycerides HDL Cholesterol Acetaminophen 03/19/21 03/19/21 03/19/21 04:59 10:37 12:05 WBC RBC Hgb Hct MCV MCH MCHC RDW Seg Neuts % (Manual) Monocytes % (Manual) Nucleated RBC % Seg Neutrophils # Man Lymphocytes # (Manual) INR APTT D-Dimer ABG pH 7.494 H ABG pO2 107.3 H ABG HCO3 31.6 H ABG O2 Saturation ABG Base Excess 7.7 H ABG Hemoglobin 7.1 L Chloride 89.5 L Carbon Dioxide Glucose 121 H POC Glucose 122 H Lactic Acid AST ALT Ammonia Troponin T Total Protein Albumin Triglycerides HDL Cholesterol Acetaminophen
[2021-03-19] MEDS: INSULIN LISPRO 100 UNIT/ML SUB-Q SCH ×4 (12:52→23:39)
[2021-03-19 13:00] LABS: Albumin 3.5 g/dL (3.9-5)
[2021-03-19 13:01] LABS: Bilirubin,Direct < 0.2 mg/dL (0-0.2)
[2021-03-19 13:14] LABS: Alanine Aminotransferase 1434 units/L (7-56)
--- NOTE | 2021-03-19 16:14 | Progress Note ---
<VINNIEDARLENE RodriguezPorfirio - Last Filed: 03/19/21 16:35> Assessment and Plan Assessment and plan: This is a 50-year-old female with COPD with oxygen dependence, DM, severe anxiety, GERD, HLD, HTN and PAGE admitted with SVT and hypertensive urgency. Neuro: Hepatic/metabolic encephalopathy, h/o severe anxiety, depression -Admit ammonia 116 -03/09 ammonia 26 -Sedated with Versed drip -Changed to propofol and fentanyl on standby if needed -RASS goal 0 to -1 -Bilateral wrist restraints in place for safety -Avoid delirium -Maintain sleep-wake cycle -SAT when appropriate -Resume home cymbalta and buspar when appropiate Cardio: Hypertensive emergency, s/p A. fib with RVR, s/p SVT, h/o HTN, HLD -Cardiology consulted, appreciate recommendations -IV metoprolol every 6 -Home medications include metoprolol 25 mg p.o. 3 times daily -Resume home statin -Blood pressure monitoring per protocol -Echocardiogram 10/2020 showed EF of 50 to 55%, mild diastolic dysfunction, trace to mild tricuspid regurgitation, mild pulmonary hypertension, RVSP 45 mmHg Resp : Acute on chronic respiratory failure, h/o COPD and PAGE -CCM consulted, apprecaite recommendations -CTA chest shows no CT evidence of pulmonary embolism, small right and trace left pleural effusion, upper lobe predominant emphysema -Intubated on 03/17 with 7.00 ETT at 20 at the lips in the ED -A.m. vent settings: Assist control tidal volume 450, rate 18, PEEP 6, 40% FiO2 -A.m. ABG and CXR noted -VAP bundle -SPO2 monitoring -Methylprednisone 60 mg every 6 GI: Transaminitis, h/o chronic constipation -NTR consulted, appreciate recommendations -RUQ US pending -Trend LFTs -PPI -BR: senakot -24 hours -2265 mL -MIVF : Hypochlormia -Trend BMP -FWF with TF -Strict I and O Endo: NAD -Avoid hypoglycemia -SSI -Accucheck q 6hrs Heme: Leukocytosis (resolved), h/o Microcytic anemia -Trend CBC -Transfuse for hbg <7 -SCDs to BLE while in bed -Lovenox subq ID: Gram positive cocci in tracheal aspirate -12/5 tracheal aspirate will be gram-positive cocci -Levaquin -Trend WBC and fever curve -Leukocytes resolved, afebrile since 03/18 The high probability of a clinically significant, sudden or life threatening deterioration of the [pulm/cv] system(s) required my full and direct attention, intervention and personal management. The aggregate critical care time was [75] minutes. This time is in addition to time spent performing reported procedures but includes the following: [x] Data Review and interpretation [x] Patient assessment and monitoring of vital signs [x] Documentation [x] Medication orders and management Disposition Plan: icu Total Time Spent with Patient (Minutes): 75 History Interval history: This is a 60-year-old female with COPD with oxygen dependence currently with palliative care, DM, former nicotine abuse, severe anxiety, GERD, HLD, HTN and PAGE presented to emergency department on 03/17 via EMS with complaints of shortness of breath. On arrival of EMS patient was found to be in SVT with a heart rate of about 200 and blood pressure to be quite elevated with systolic in 200s. She was given 6 mg of adenosine without significant changes subsequently given 12 mg of adenosine with improvement of her heart rate. Upon arrival to the emergency department patient was found to be in atrial fibrillation with RVR and dyspneic. Work-up in the emergency department revealed leukocytosis, lactic acidosis, transaminitis, hypoalbuminemia and a troponin leak. CXR, CT a chest and CT head were unremarkable. Patient was admitted to the hospitalist service with consults to [facility] and cardiology for further work-up of acute on chronic respiratory failure, SVT and hypertensive urgency. 03/18/2021: Patient is intubated and on vent support, Patient is in sinus tachycardia 03/19: COVID-19 PCR negative, remains on ventilatory support, Versed drip changed to propofol. No acute events reported overnight. Tracheal aspirate with few gram-positive Cocci. This afternoon, patient went in to the 150s, giving 500 mL NS bolus and fentanyl push to see if it pain related. If persists then will order prn Ativan per Dr. Gage recommendation. Hospitalist Physical - Constitutional Vitals: Temp Pulse Resp BP Pulse Ox 98.5 F 107 H 13 130/84 100 03/19/21 08:00 03/19/21 15:17 03/19/21 15:00 03/19/21 15:17 03/19/21 15:17 General appearance: Present: severe distress - EENT Eyes: Present: PERRL, EOM intact ENT: dentition normal - Neck Neck: Present: normal ROM - Respiratory Respiratory effort: normal Respiratory: bilateral: diminished - Cardiovascular Rhythm: regular Heart Sounds: Present: S1 & S2. Absent: systolic murmur, diastolic murmur - Extremities Extremities: no ischemia, pulses intact, pulses symmetrical, normal temperature, normal color Peripheral Pulses: within normal limits - Abdominal General gastrointestinal: soft, non-tender, non-distended, normal bowel sounds - Integumentary Integumentary: Present: warm, dry - Psychiatric Psychiatric: other (sedated) - Neurologic Neurologic: other (sedated) - Allied Health Allied health notes reviewed: nursing, RT, social work HEART Score - HEART Score Troponin: Troponin T 0.015 ng/mL (0.00-0.029) 03/19/21 12:00 Results - Labs CBC & Chem 7: 03/19/21 04:59 03/19/21 04:59 Labs: Laboratory Last Values WBC 9.9 K/mm3 (4.5-11.0) 03/19/21 04:59 RBC 3.43 M/mm3 (3.65-5.03) L 03/19/21 04:59 Hgb 7.0 gm/dl (10.1-14.3) L 03/19/21 04:59 Hct 25.6 % (30.3-42.9) L 03/19/21 04:59 MCV 75 fl (79-97) L 03/19/21 04:59 MCH 20 pg (28-32) L 03/19/21 04:59 MCHC 27 % (30-34) L 03/19/21 04:59 RDW 25.6 % (13.2-15.2) H 03/19/21 04:59 Plt Count 389 K/mm3 (140-440) 03/19/21 04:59 Add Manual Diff Complete 03/19/21 04:59 Total Counted 100 03/19/21 04:59 Seg Neuts % (Manual) 91.0 % (40.0-70.0) H 03/19/21 04:59 Band Neutrophils % 9.0 % 03/19/21 04:59 Lymphocytes % (Manual) 31.0 % (13.4-35.0) 03/19/21 04:59 Reactive Lymphs % (Man) 5.0 % 03/19/21 04:59 Monocytes % (Manual) 9.0 % (0.0-7.3) H 03/19/21 04:59 Metamyelocytes % 1.0 % 03/19/21 04:59 Myelocytes % 3.0 % 03/19/21 04:59 Promyelocytes % 3.0 % 03/19/21 04:59 Nucleated RBC % 3.0 % (0.0-0.9) H 03/19/21 04:59 Seg Neutrophils # Man 9.0 K/mm3 (1.8-7.7) H 03/19/21 04:59 Band Neutrophils # 0.9 K/mm3 03/19/21 04:59 Lymphocytes # (Manual) 0.0 K/mm3 (1.2-5.4) L 03/19/21 04:59 Abs React Lymphs (Man) 0.0 K/mm3 03/19/21 04:59 Monocytes # (Manual) 0.0 K/mm3 (0.0-0.8) 03/19/21 04:59 Eosinophils # (Manual) 0.0 K/mm3 (0.0-0.4) 03/19/21 04:59 Basophils # (Manual) 0.0 K/mm3 (0.0-0.1) 03/19/21 04:59 Metamyelocytes # 0.0 K/mm3 03/19/21 04:59 Myelocytes # 0.0 K/mm3 03/19/21 04:59 Promyelocytes # 0.0 K/mm3 03/19/21 04:59 Blast Cells # 0.0 K/mm3 03/19/21 04:59 WBC Morphology Not Reportable 03/19/21 04:59 Hypersegmented Neuts Not Reportable 03/19/21 04:59 Hyposegmented Neuts Not Reportable 03/19/21 04:59 Hypogranular Neuts Not Reportable 03/19/21 04:59 Smudge Cells Not Reportable 03/19/21 04:59 Toxic Granulation Not Reportable 03/19/21 04:59 Toxic Vacuolation Not Reportable 03/19/21 04:59 Dohle Bodies Not Reportable 03/19/21 04:59 Pelger-Huet Anomaly Not Reportable 03/19/21 04:59 Florentino Rods Not Reportable 03/19/21 04:59 Platelet Estimate Consistent w auto 03/19/21 04:59 Clumped Platelets Not Reportable 03/19/21 04:59 Plt Clumps, EDTA Not Reportable 03/19/21 04:59 Large Platelets Few 03/19/21 04:59 Giant Platelets Not Reportable 03/19/21 04:59 Platelet Satelliting Not Reportable 03/19/21 04:59 Plt Morphology Comment Not Reportable 03/19/21 04:59 RBC Morphology Not Reportable 03/19/21 04:59 Dimorphic RBCs Not Reportable 03/19/21 04:59 Polychromasia Few 03/19/21 04:59 Hypochromasia 1+ 03/19/21 04:59 Poikilocytosis Not Reportable 03/19/21 04:59 Anisocytosis 1+ 03/19/21 04:59 Microcytosis 2+ 03/19/21 04:59 Macrocytosis Not Reportable 03/19/21 04:59 Spherocytes Not Reportable 03/19/21 04:59 Pappenheimer Bodies Not Reportable 03/19/21 04:59 Sickle Cells Not Reportable 03/19/21 04:59 Target Cells Not Reportable 03/19/21 04:59 Tear Drop Cells Not Reportable 03/19/21 04:59 Ovalocytes 1+ 03/19/21 04:59 Stomatocytes 1+ 03/17/21 17:36 Helmet Cells Not Reportable 03/19/21 04:59 Mab[place] Bodies Not Reportable 03/19/21 04:59 [place] Rings Not Reportable 03/19/21 04:59 Marcelo Cells Not Reportable 03/19/21 04:59 Bite Cells Not Reportable 03/19/21 04:59 Crenated Cell Not Reportable 03/19/21 04:59 Elliptocytes Not Reportable 03/19/21 04:59 Acanthocytes (Spur) Not Reportable 03/19/21 04:59 Rouleaux Not Reportable 03/19/21 04:59 Hemoglobin C Crystals Not Reportable 03/19/21 04:59 Schistocytes Not Reportable 03/19/21 04:59 Malaria parasites Not Reportable 03/19/21 04:59 Maykel Bodies Not Reportable 03/19/21 04:59 Hem Pathologist Commnt No 03/19/21 04:59 PT 12.6 Sec. (12.2-14.9) 03/17/21 17:37 INR 0.85 (0.87-1.13) L 03/17/21 17:37 APTT 23.3 Sec. (24.2-36.6) L 03/17/21 17:37 D-Dimer 947.92 ng/mlDDU (0-234) H 03/17/21 17:37 ABG pH 7.494 pH Units (7.350-7.450) H 03/19/21 10:37 ABG pCO2 42.0 mm Hg 03/19/21 10:37 ABG pO2 107.3 mm Hg (80.0-90.0) H 03/19/21 10:37 ABG HCO3 31.6 mmol/L (20.0-26.0) H 03/19/21 10:37 ABG O2 Saturation 98.1 % (95.0-99.0) 03/19/21 10:37 ABG O2 Content 9.8 (0.0-44) 03/19/21 10:37 ABG Base Excess 7.7 mmol/L (-2.0-3.0) H 03/19/21 10:37 ABG Hemoglobin 7.1 gm/dl (12.0-16.0) L 03/19/21 10:37 ABG Carboxyhemoglobin 1.8 % (0.0-5.0) 03/19/21 10:37 ABG Methemoglobin 0.4 % (0.0-1.5) 03/19/21 10:37 Oxyhemoglobin 95.9 % (95.0-99.0) 03/19/21 10:37 FiO2 21 % 03/19/21 10:37 Sodium 138 mmol/L (137-145) 03/19/21 04:59 Potassium 3.9 mmol/L (3.6-5.0) 03/19/21 04:59 Chloride 89.5 mmol/L (98-107) L 03/19/21 04:59 Carbon Dioxide 29 mmol/L (22-30) D 03/19/21 04:59 Anion Gap 23 mmol/L 03/19/21 04:59 BUN 12 mg/dL (7-17) 03/19/21 04:59 Creatinine 0.6 mg/dL (0.6-1.2) 03/19/21 04:59 Estimated GFR > 60 ml/min 03/19/21 04:59 BUN/Creatinine Ratio 20 % 03/19/21 04:59 Glucose 121 mg/dL (65-100) H 03/19/21 04:59 POC Glucose 122 mg/dL (70-105) H 03/19/21 12:05 Lactic Acid 4.00 mmol/L (0.7-2.0) H* 03/17/21 23:36 Calcium 8.6 mg/dL (8.4-10.2) 03/19/21 04:59 Magnesium 1.90 mg/dL (1.7-2.3) 03/17/21 22:57 Total Bilirubin 0.30 mg/dL (0.1-1.2) 03/19/21 12:00 Direct Bilirubin < 0.2 mg/dL (0-0.2) 03/19/21 12:00 Indirect Bilirubin 0.1 mg/dL 03/19/21 12:00 AST 359 units/L (5-40) H 03/19/21 12:00 ALT 1434 units/L (7-56) H 03/19/21 12:00 Alkaline Phosphatase 125 units/L (35-129) 03/19/21 12:00 Ammonia 26.0 umol/L (25-60) 03/19/21 12:00 Troponin T 0.015 ng/mL (0.00-0.029) 03/19/21 12:00 NT-Pro-B Natriuret Pep 576.0 pg/mL (0-900) 03/17/21 17:36 Total Protein 5.7 g/dL (6.3-8.2) L 03/19/21 12:00 Albumin 3.5 g/dL (3.9-5) L 03/19/21 12:00 Albumin/Globulin Ratio 1.6 % 03/19/21 12:00 Triglycerides 173 mg/dL (2-149) H 03/17/21 17:36 Cholesterol 191 mg/dL (50-199) 03/17/21 17:36 LDL Cholesterol Direct 80 mg/dL (50-130) 03/17/21 17:36 HDL Cholesterol 73 mg/dL (40-59) H 03/17/21 17:36 Cholesterol/HDL Ratio 2.61 % 03/17/21 17:36 TSH 3.510 mlU/mL (0.270-4.200) 03/17/21 22:57 Urine Color Mayuri (Yellow) 03/17/21 19:42 Urine Turbidity Slightly-cloudy (Clear) 03/17/21 19:42 Urine pH 7.0 (5.0-7.0) 03/17/21 19:42 Ur Specific [place] 1.015 (1.003-1.030) 03/17/21 19:42 Urine Protein 100 mg/dl mg/dL (Negative) 03/17/21 19:42 Urine Glucose (UA) Neg mg/dL (Negative) 03/17/21 19:42 Urine Ketones 20 mg/dL (Negative) 03/17/21 19:42 Urine Blood Sm (Negative) 03/17/21 19:42 Urine Nitrite Neg (Negative) 03/17/21 19:42 Urine Bilirubin Neg (Negative) 03/17/21 19:42 Urine Urobilinogen 2.0 mg/dL (<2.0) 03/17/21 19:42 Ur Leukocyte Esterase Neg (Negative) 03/17/21 19:42 Urine WBC (Auto) 4.0 /HPF (0.0-6.0) 03/17/21 19:42 Urine RBC (Auto) 6.0 /HPF (0.0-6.0) 03/17/21 19:42 U Epithel Cells (Auto) 5.0 /HPF (0-13.0) 03/17/21 19:42 Urine Bacteria (Auto) 1+ /HPF (Negative) 03/17/21 19:42 Urine Mucus 1+ /HPF 03/17/21 19:42 Urine Yeast (Budding) Few /HPF 03/17/21 19:42 Acetaminophen 5.0 ug/mL (10.0-30.0) L 03/18/21 23:07 Coronavirus (PCR) Negative (Negative) 03/19/21 Unknown Blood Type A POSITIVE 03/17/21 18:40 Antibody Screen Negative 03/17/21 18:40 Microbiology: Microbiology 03/17/21 18:10 Tracheal Aspirate Sputum Culture - Preliminary [place]/IV: Voiding Method Indwelling Catheter Active Medications - Current Medications Current Medications: Generic Name Dose Route Start Last Admin Trade Name Freq PRN Reason Stop Dose Admin Acetaminophen 650 mg 03/18/21 00:05 Acetaminophen 325 Mg Tab PO Q6H PRN Pain MILD(1-3)/Fever >100.5/TOVAR Albuterol 2.5 mg 03/18/21 12:00 03/19/21 03:28 Albuterol 2.5 Mg/3 Ml Nebu IH 2.5 mg PRN PRN Administration Wheezing Atorvastatin Calcium 10 mg 03/19/21 22:00 Atorvastatin 10 Mg Tab PO QHS BUTCH Dextrose 0 ml 03/17/21 23:58 Dextrose 50% In Water (25gm) 50 Ml Syringe IV Q30MIN PRN Hypoglycemia Protocol Famotidine 20 mg 03/17/21 22:00 03/19/21 09:42 Famotidine 20 Mg/2 Ml Inj IV 20 mg BID BUTCH Administration Fentanyl 50 mcg 03/18/21 20:38 Fentanyl 100 Mcg/2 Ml Inj IV Q10MIN PRN ANALGESIA Heparin Sodium (Porcine) 5,000 unit 03/18/21 06:00 03/19/21 14:51 Heparin 5,000 Unit/1 Ml Vial SUB-Q 5,000 unit Q8HR BUTCH Administration Hydrophilic Ointment 1 applic 03/17/21 17:35 Lip Therapy Vaseline TP Q2HR PRN Dry Lips Midazolam HCl 100 mg/ Sodium 100 mls @ 2 mls/hr 03/17/21 18:00 03/19/21 12:00 Chloride IV 0 mg/hr TITR BUTCH 0 mls/hr Titration Protocol 2 MG/HR Levofloxacin/Dextrose 750 mg in 150 mls @ 100 mls/hr 03/18/21 01:00 03/19/21 09:43 Levaquin 750mg/150ml IV 03/21/21 11:29 100 mls/hr Q24HR BUTCH Administration Protocol Sodium Chloride 1,000 mls @ 75 mls/hr 03/18/21 08:30 Nacl 0.9% 1000 Ml IV DIRECT BUTCH Propofol 1,000 mg in 100 mls @ 4.5 mls/hr 03/18/21 21:00 03/19/21 12:00 Diprivan 10 Mg/Ml IV 15 mcg/kg/min TITR BUTCH 6.75 mls/hr Titration Protocol 10 MCG/KG/MIN Fentanyl Citrate 2,000 mcg in 100 mls @ 3.75 mls/hr 03/18/21 21:00 Fentanyl Drip Premix IV TITR BUTCH Protocol 1 MCG/KG/HR Insulin Human Lispro 0 unit 03/19/21 12:00 03/19/21 12:52 Insulin Lispro 100 Unit/Ml SUB-Q Not Given Q6HR BUTCH Protocol Magnesium Hydroxide 30 ml 03/18/21 00:05 Magnesium Hydroxide (Mom) Oral Liqd Udc PO Q4H PRN Constipation Methylprednisolone Sodium Succinate 60 mg 03/19/21 00:00 03/19/21 12:52 Methylprednisolone Sod Succinate 125 Mg/2 Ml Inj IV 60 mg Q6H BUTCH Administration Metoprolol Tartrate 2.5 mg 03/18/21 18:00 03/19/21 12:51 Metoprolol Tartrate 5 Mg/5 Ml Inj IV 2.5 mg Q6HR BUTCH Administration Morphine Sulfate 2 mg 03/18/21 00:05 Morphine 2 Mg/1 Ml Inj IV Q4H PRN Pain, Moderate (4-6) Morphine Sulfate 4 mg 03/18/21 00:05 Morphine 4 Mg/1 Ml Inj IV Q4H PRN Pain , Severe (7-10) Multi-Ingred Cream/Lotion/Oil/Oint 1 applic 03/17/21 17:35 Mineral Oil/Petrolatum, White Ophth Oint 3.5 Gm OU Q4HR PRN Dry Eye(s) Senna 8.8 mg 03/19/21 22:00 Sennosides Oral Liqd 8.8 Mg/5 Ml Oral Liqd PO QHS BUTCH Senna/Docusate Sodium 1 tab 03/17/21 22:00 03/18/21 23:33 Sennosides/Docusate Sodium 8.6/50 Mg Tab FEEDTUBE Not Given BID BUTCH Sodium Chloride 10 ml 03/18/21 10:00 03/19/21 09:43 Sodium Chloride 0.9% 10 Ml Flush Syringe IV 10 ml BID BUTCH Administration Sodium Chloride 10 ml 03/17/21 23:58 Sodium Chloride 0.9% 10 Ml Flush Syringe IV PRN PRN LINE FLUSH Nutrition/Malnutrition Assess - Dietary Evaluation Nutrition/Malnutrition Findings: Nutrition Notes Start: 03/18/21 09:46 Freq: Status: Active Protocol: Document 03/19/21 09:21 SHELBI (Rec: 03/19/21 09:28 SHELBI [id number]) Nutrition Notes Need for Assessment generated from: options advisor,MST Initial or Follow up Brief Note Current Diet NPO Height 5 ft 6 in Weight 82.8 kg [place] Body Weight (kg) 59.09 BMI 29.5 Weight Status Overweight Subjective/Other Information Pt screened for malnutrition and skin risks ([place] score: 13). She remains on vent support. RD already following pt. Will f/u per previous assessment. Is patient on ventilator? Yes Is Patient Ambulatory and/or Out of Bed No REE-([place]edom-St. Jeor-confined to bed) [phone] Calculation Used for Recommendations [place]edom-St Jeor Additional Notes Pro needs 1.2-2g/k-166g/ day Fluid needs 1ml/kcal Nutrition Intervention Nutrition Support: When TF consult received, recommend either Vital AF 1.2 at 55ml/hr or Promote at 70ml/ hr. Follow-Up By: 03/21/21 Additional Comments F/U: diet advancement vs TF consult, vent status <LISSET VIDES O - Last Filed: 03/19/21 17:32> Assessment and Plan Assessment and plan: I saw and evaluated the patient. I agree with the findings and the plan of care as documented in the Nurse Practitioner's note, with the following corrections and additions. Patient with acute on chronic respiratory failure. Intubated on ventilator. Hospitalist Physical - Constitutional Vitals: Temp Pulse Resp BP Pulse Ox 98.5 F 107 H 13 130/84 100 03/19/21 08:00 03/19/21 15:17 03/19/21 15:00 03/19/21 15:17 03/19/21 15:17 HEART Score - HEART Score Troponin: Troponin T 0.015 ng/mL (0.00-0.029) 03/19/21 12:00 Results - Labs CBC & Chem 7: 03/19/21 04:59 03/19/21 04:59 Labs: Laboratory Last Values WBC 9.9 K/mm3 (4.5-11.0) 03/19/21 04:59 RBC 3.43 M/mm3 (3.65-5.03) L 03/19/21 04:59 Hgb 7.0 gm/dl (10.1-14.3) L 03/19/21 04:59 Hct 25.6 % (30.3-42.9) L 03/19/21 04:59 MCV 75 fl (79-97) L 03/19/21 04:59 MCH 20 pg (28-32) L 03/19/21 04:59 MCHC 27 % (30-34) L 03/19/21 04:59 RDW 25.6 % (13.2-15.2) H 03/19/21 04:59 Plt Count 389 K/mm3 (140-440) 03/19/21 04:59 Add Manual Diff Complete 03/19/21 04:59 Total Counted 100 03/19/21 04:59 Seg Neuts % (Manual) 91.0 % (40.0-70.0) H 03/19/21 04:59 Band Neutrophils % 9.0 % 03/19/21 04:59 Lymphocytes % (Manual) 31.0 % (13.4-35.0) 03/19/21 04:59 Reactive Lymphs % (Man) 5.0 % 03/19/21 04:59 Monocytes % (Manual) 9.0 % (0.0-7.3) H 03/19/21 04:59 Metamyelocytes % 1.0 % 03/19/21 04:59 Myelocytes % 3.0 % 03/19/21 04:59 Promyelocytes % 3.0 % 03/19/21 04:59 Nucleated RBC % 3.0 % (0.0-0.9) H 03/19/21 04:59 Seg Neutrophils # Man 9.0 K/mm3 (1.8-7.7) H 03/19/21 04:59 Band Neutrophils # 0.9 K/mm3 03/19/21 04:59 Lymphocytes # (Manual) 0.0 K/mm3 (1.2-5.4) L 03/19/21 04:59 Abs React Lymphs (Man) 0.0 K/mm3 03/19/21 04:59 Monocytes # (Manual) 0.0 K/mm3 (0.0-0.8) 03/19/21 04:59 Eosinophils # (Manual) 0.0 K/mm3 (0.0-0.4) 03/19/21 04:59 Basophils # (Manual) 0.0 K/mm3 (0.0-0.1) 03/19/21 04:59 Metamyelocytes # 0.0 K/mm3 03/19/21 04:59 Myelocytes # 0.0 K/mm3 03/19/21 04:59 Promyelocytes # 0.0 K/mm3 03/19/21 04:59 Blast Cells # 0.0 K/mm3 03/19/21 04:59 WBC Morphology Not Reportable 03/19/21 04:59 Hypersegmented Neuts Not Reportable 03/19/21 04:59 Hyposegmented Neuts Not Reportable 03/19/21 04:59 Hypogranular Neuts Not Reportable 03/19/21 04:59 Smudge Cells Not Reportable 03/19/21 04:59 Toxic Granulation Not Reportable 03/19/21 04:59 Toxic Vacuolation Not Reportable 03/19/21 04:59 Dohle Bodies Not Reportable 03/19/21 04:59 Pelger-Huet Anomaly Not Reportable 03/19/21 04:59 Florentino Rods Not Reportable 03/19/21 04:59 Platelet Estimate Consistent w auto 03/19/21 04:59 Clumped Platelets Not Reportable 03/19/21 04:59 Plt Clumps, EDTA Not Reportable 03/19/21 04:59 Large Platelets Few 03/19/21 04:59 Giant Platelets Not Reportable 03/19/21 04:59 Platelet Satelliting Not Reportable 03/19/21 04:59 Plt Morphology Comment Not Reportable 03/19/21 04:59 RBC Morphology Not Reportable 03/19/21 04:59 Dimorphic RBCs Not Reportable 03/19/21 04:59 Polychromasia Few 03/19/21 04:59 Hypochromasia 1+ 03/19/21 04:59 Poikilocytosis Not Reportable 03/19/21 04:59 Anisocytosis 1+ 03/19/21 04:59 Microcytosis 2+ 03/19/21 04:59 Macrocytosis Not Reportable 03/19/21 04:59 Spherocytes Not Reportable 03/19/21 04:59 Pappenheimer Bodies Not Reportable 03/19/21 04:59 Sickle Cells Not Reportable 03/19/21 04:59 Target Cells Not Reportable 03/19/21 04:59 Tear Drop Cells Not Reportable 03/19/21 04:59 Ovalocytes 1+ 03/19/21 04:59 Stomatocytes 1+ 03/17/21 17:36 Helmet Cells Not Reportable 03/19/21 04:59 Mab[place] Bodies Not Reportable 03/19/21 04:59 [place] Rings Not Reportable 03/19/21 04:59 Marcelo Cells Not Reportable 03/19/21 04:59 Bite Cells Not Reportable 03/19/21 04:59 Crenated Cell Not Reportable 03/19/21 04:59 Elliptocytes Not Reportable 03/19/21 04:59 Acanthocytes (Spur) Not Reportable 03/19/21 04:59 Rouleaux Not Reportable 03/19/21 04:59 Hemoglobin C Crystals Not Reportable 03/19/21 04:59 Schistocytes Not Reportable 03/19/21 04:59 Malaria parasites Not Reportable 03/19/21 04:59 Maykel Bodies Not Reportable 03/19/21 04:59 Hem Pathologist Commnt No 03/19/21 04:59 PT 12.6 Sec. (12.2-14.9) 03/17/21 17:37 INR 0.85 (0.87-1.13) L 03/17/21 17:37 APTT 23.3 Sec. (24.2-36.6) L 03/17/21 17:37 D-Dimer 947.92 ng/mlDDU (0-234) H 03/17/21 17:37 ABG pH 7.494 pH Units (7.350-7.450) H 03/19/21 10:37 ABG pCO2 42.0 mm Hg 03/19/21 10:37 ABG pO2 107.3 mm Hg (80.0-90.0) H 03/19/21 10:37 ABG HCO3 31.6 mmol/L (20.0-26.0) H 03/19/21 10:37 ABG O2 Saturation 98.1 % (95.0-99.0) 03/19/21 10:37 ABG O2 Content 9.8 (0.0-44) 03/19/21 10:37 ABG Base Excess 7.7 mmol/L (-2.0-3.0) H 03/19/21 10:37 ABG Hemoglobin 7.1 gm/dl (12.0-16.0) L 03/19/21 10:37 ABG Carboxyhemoglobin 1.8 % (0.0-5.0) 03/19/21 10:37 ABG Methemoglobin 0.4 % (0.0-1.5) 03/19/21 10:37 Oxyhemoglobin 95.9 % (95.0-99.0) 03/19/21 10:37 FiO2 21 % 03/19/21 10:37 Sodium 138 mmol/L (137-145) 03/19/21 04:59 Potassium 3.9 mmol/L (3.6-5.0) 03/19/21 04:59 Chloride 89.5 mmol/L (98-107) L 03/19/21 04:59 Carbon Dioxide 29 mmol/L (22-30) D 03/19/21 04:59 Anion Gap 23 mmol/L 03/19/21 04:59 BUN 12 mg/dL (7-17) 03/19/21 04:59 Creatinine 0.6 mg/dL (0.6-1.2) 03/19/21 04:59 Estimated GFR > 60 ml/min 03/19/21 04:59 BUN/Creatinine Ratio 20 % 03/19/21 04:59 Glucose 121 mg/dL (65-100) H 03/19/21 04:59 POC Glucose 122 mg/dL (70-105) H 03/19/21 12:05 Lactic Acid 4.00 mmol/L (0.7-2.0) H* 03/17/21 23:36 Calcium 8.6 mg/dL (8.4-10.2) 03/19/21 04:59 Magnesium 1.90 mg/dL (1.7-2.3) 03/17/21 22:57 Total Bilirubin 0.30 mg/dL (0.1-1.2) 03/19/21 12:00 Direct Bilirubin < 0.2 mg/dL (0-0.2) 03/19/21 12:00 Indirect Bilirubin 0.1 mg/dL 03/19/21 12:00 AST 359 units/L (5-40) H 03/19/21 12:00 ALT 1434 units/L (7-56) H 03/19/21 12:00 Alkaline Phosphatase 125 units/L (35-129) 03/19/21 12:00 Ammonia 26.0 umol/L (25-60) 03/19/21 12:00 Troponin T 0.015 ng/mL (0.00-0.029) 03/19/21 12:00 NT-Pro-B Natriuret Pep 576.0 pg/mL (0-900) 03/17/21 17:36 Total Protein 5.7 g/dL (6.3-8.2) L 03/19/21 12:00 Albumin 3.5 g/dL (3.9-5) L 03/19/21 12:00 Albumin/Globulin Ratio 1.6 % 03/19/21 12:00 Triglycerides 173 mg/dL (2-149) H 03/17/21 17:36 Cholesterol 191 mg/dL (50-199) 03/17/21 17:36 LDL Cholesterol Direct 80 mg/dL (50-130) 03/17/21 17:36 HDL Cholesterol 73 mg/dL (40-59) H 03/17/21 17:36 Cholesterol/HDL Ratio 2.61 % 03/17/21 17:36 TSH 3.510 mlU/mL (0.270-4.200) 03/17/21 22:57 Urine Color [place] (Yellow) 03/17/21 19:42 Urine Turbidity Slightly-cloudy (Clear) 03/17/21 19:42 Urine pH 7.0 (5.0-7.0) 03/17/21 19:42 Ur Specific [place] 1.015 (1.003-1.030) 03/17/21 19:42 Urine Protein 100 mg/dl mg/dL (Negative) 03/17/21 19:42 Urine Glucose (UA) Neg mg/dL (Negative) 03/17/21 19:42 Urine Ketones 20 mg/dL (Negative) 03/17/21 19:42 Urine Blood Sm (Negative) 03/17/21 19:42 Urine Nitrite Neg (Negative) 03/17/21 19:42 Urine Bilirubin Neg (Negative) 03/17/21 19:42 Urine Urobilinogen 2.0 mg/dL (<2.0) 03/17/21 19:42 Ur Leukocyte Esterase Neg (Negative) 03/17/21 19:42 Urine WBC (Auto) 4.0 /HPF (0.0-6.0) 03/17/21 19:42 Urine RBC (Auto) 6.0 /HPF (0.0-6.0) 03/17/21 19:42 U Epithel Cells (Auto) 5.0 /HPF (0-13.0) 03/17/21 19:42 Urine Bacteria (Auto) 1+ /HPF (Negative) 03/17/21 19:42 Urine Mucus 1+ /HPF 03/17/21 19:42 Urine Yeast (Budding) Few /HPF 03/17/21 19:42 Acetaminophen 5.0 ug/mL (10.0-30.0) L 03/18/21 23:07 Coronavirus (PCR) Negative (Negative) 03/19/21 Unknown Blood Type A POSITIVE 03/17/21 18:40 Antibody Screen Negative 03/17/21 18:40 Microbiology: Microbiology 03/17/21 18:10 Tracheal Aspirate Sputum Culture - Preliminary [place]/IV: Voiding Method Indwelling Catheter Active Medications - Current Medications Current Medications: Generic Name Dose Route Start Last Admin Trade Name Freq PRN Reason Stop Dose Admin Acetaminophen 650 mg 03/18/21 00:05 Acetaminophen 325 Mg Tab PO Q6H PRN Pain MILD(1-3)/Fever >100.5/TOVAR Albuterol 2.5 mg 03/18/21 12:00 03/19/21 03:28 Albuterol 2.5 Mg/3 Ml Nebu IH 2.5 mg PRN PRN Administration Wheezing Atorvastatin Calcium 10 mg 03/19/21 22:00 Atorvastatin 10 Mg Tab PO QHS BUTCH Dextrose 0 ml 03/17/21 23:58 Dextrose 50% In Water (25gm) 50 Ml Syringe IV Q30MIN PRN Hypoglycemia Protocol Famotidine 20 mg 03/20/21 10:00 Famotidine 20 Mg Tab PO QDAY BUTCH Fentanyl 50 mcg 03/18/21 20:38 03/19/21 16:30 Fentanyl 100 Mcg/2 Ml Inj IV 50 mcg Q10MIN PRN Administration ANALGESIA Heparin Sodium (Porcine) 5,000 unit 03/18/21 06:00 03/19/21 14:51 Heparin 5,000 Unit/1 Ml Vial SUB-Q 5,000 unit Q8HR BUTCH Administration Hydrophilic Ointment 1 applic 12/25/21 17:35 Lip Therapy Vaseline TP Q2HR PRN Dry Lips Levofloxacin/Dextrose 750 mg in 150 mls @ 100 mls/hr 03/18/21 01:00 03/19/21 09:43 Levaquin 750mg/150ml IV 03/21/21 11:29 100 mls/hr Q24HR BUTCH Administration Protocol Sodium Chloride 1,000 mls @ 75 mls/hr 03/18/21 08:30 Nacl 0.9% 1000 Ml IV DIRECT BUTCH Propofol 1,000 mg in 100 mls @ 4.5 mls/hr 03/18/21 21:00 03/19/21 12:00 Diprivan 10 Mg/Ml IV 15 mcg/kg/min TITR BUTCH 6.75 mls/hr Titration Protocol 10 MCG/KG/MIN Fentanyl Citrate 2,000 mcg in 100 mls @ 3.75 mls/hr 03/18/21 21:00 Fentanyl Drip Premix IV TITR BUTCH Protocol 1 MCG/KG/HR Sodium Chloride 500 mls @ 999 mls/hr 03/19/21 17:21 03/19/21 16:30 Nacl 0.9% 500 Ml IV 03/19/21 17:51 999 mls/hr ONCE ONE Administration Insulin Human Lispro 0 unit 03/19/21 12:00 03/19/21 12:52 Insulin Lispro 100 Unit/Ml SUB-Q Not Given Q6HR [facility] Protocol Magnesium Hydroxide 30 ml 03/18/21 00:05 Magnesium Hydroxide (Mom) Oral Liqd Udc PO Q4H PRN Constipation Methylprednisolone Sodium Succinate 60 mg 03/19/21 00:00 03/19/21 12:52 Methylprednisolone Sod Succinate 125 Mg/2 Ml Inj IV 60 mg Q6H [facility] Administration Metoprolol Tartrate 2.5 mg 03/18/21 18:00 03/19/21 12:51 Metoprolol Tartrate 5 Mg/5 Ml Inj IV 2.5 mg Q6HR BUTCH Administration Morphine Sulfate 2 mg 03/18/21 00:05 Morphine 2 Mg/1 Ml Inj IV Q4H PRN Pain, Moderate (4-6) Morphine Sulfate 4 mg 03/18/21 00:05 Morphine 4 Mg/1 Ml Inj IV Q4H PRN Pain , Severe (7-10) Multi-Ingred Cream/Lotion/Oil/Oint 1 applic 12/25/21 17:35 Mineral Oil/Petrolatum, White Ophth Oint 3.5 Gm OU Q4HR PRN Dry Eye(s) Senna/Docusate Sodium 1 tab 03/17/21 22:00 03/18/21 23:33 Sennosides/Docusate Sodium 8.6/50 Mg Tab FEEDTUBE Not Given BID BUTCH Sodium Chloride 10 ml 03/18/21 10:00 03/19/21 09:43 Sodium Chloride 0.9% 10 Ml Flush Syringe IV 10 ml BID BUTCH Administration Sodium Chloride 10 ml 03/17/21 23:58 Sodium Chloride 0.9% 10 Ml Flush Syringe IV PRN PRN LINE FLUSH Nutrition/Malnutrition Assess - Dietary Evaluation Nutrition/Malnutrition Findings: Nutrition Notes Start: 03/18/21 09:46 Freq: Status: Active Protocol: Document 03/19/21 09:21 [facility] (Rec: 03/19/21 09:28 [facility] [id number]) Nutrition Notes Need for Assessment generated from: options advisor,MST Initial or Follow up Brief Note Current Diet NPO Height 5 ft 6 in Weight 82.8 kg [place] Body Weight (kg) 59.09 BMI 29.5 Weight Status Overweight Subjective/Other Information Pt screened for malnutrition and skin risks ([place] score: 13). She remains on vent support. RD already following pt. Will f/u per previous assessment. Is patient on ventilator? Yes Is Patient Ambulatory and/or Out of Bed No REE-([facility]-confined to bed) [phone] [facility] Additional Notes Pro needs 1.2-2g/k-166g/ day Fluid needs 1ml/kcal Nutrition Intervention Nutrition Support: When TF consult received, recommend either Vital AF 1.2 at 55ml/hr or Promote at 70ml/ hr. Follow-Up By: 03/21/21 Additional Comments F/U: diet advancement vs TF consult, vent status
[2021-03-19] MEDS: fentaNYL 100 MCG/2 ML INJ IV PRN (16:30)
[2021-03-19] MEDS ORDERED: SODIUM CHLORIDE 0.9% 500 ML 500 ML IV ONE (17:21)
[2021-03-19] MEDS: fentaNYL DRIP Premix 2,000 MCG/100 ML BAG IV SCH (17:54)
[2021-03-19] MEDS: SENNOSIDES/DOCUSATE SODIUM 8.6/50 MG TAB FEEDTUBE SCH ×2 (17:55→22:12)
--- NOTE | 2021-03-19 18:04 | Ultrasound Report ---
Limited abdominal ultrasound INDICATION: Right upper quadrant pain FINDINGS: Liver appears normal. No gallstones or gallbladder wall thickening. Common bile duct measur es 5 mm. Right kidney appears normal. There is a complex fluid collection posterior to the liver inte rnal echoes in the gallbladder. Right renal collecting systems IMPRESSION: 1. Complex free fluid posterior to the liver, nonspecific. 2. Internal echoes in the gallbladder could represent gallstones or sludge 3. Right hydroureteronephrosis Signer Name: Marc Dangelo MD Signed: 03/19/2021 6:00 PM Workstation Name: [email or web address]
[2021-03-19] MEDS ORDERED: LIPASE 10,500/PROTEASE 25,000/AMYLASE 43,750 (UNITS) DR CAP FEEDTUBE PRN (18:16)
[2021-03-19] MEDS ORDERED: SIMPLE SYRUP 15 ML FEEDTUBE PRN ×2 (18:16)
[2021-03-19] MEDS ORDERED: SODIUM BICARBONATE 325 MG TAB FEEDTUBE PRN (18:16)
[2021-03-19] MEDS ORDERED: SENNOSIDES ORAL LIQD 8.8 MG/5 ML ORAL LIQD PO SCH (22:00)
[2021-03-20 04:03] LABS: ABG Base Excess 9.5 mmol/L (-2.0-3.0); ABG HCO3 33.9 mmol/L (20.0-26.0); ABG Methemoglobin 0.4 % (0.0-1.5); ABG Oxygen Saturation 97.4 % (95.0-99.0); ABG PH 7.477 pH Units (7.350-7.450); ABG PO2 67.9 mm Hg (80.0-90.0)
[2021-03-20 05:12] LABS: Mean Corpuscular HGB Conc 28 % (30-34); Mean Corpuscular Volume 73 fl (79-97); Platelet Count 541 K/mm3 (140-440); Red Blood Count 3.48 M/mm3 (3.65-5.03)
[2021-03-20 05:13] LABS: Hematocrit 25.3 % (30.3-42.9); Red Cell Distribution Width 25.2 % (13.2-15.2)
[2021-03-20 05:17] LABS: Albumin 3.5 g/dL (3.9-5); BUN/Creatinine Ratio 28; Blood Urea Nitrogen 22 mg/dL (7-17); Hemolysis Index 0
[2021-03-20] MEDS: INSULIN LISPRO 100 UNIT/ML SUB-Q SCH ×3 (05:24→17:45)
[2021-03-20 05:36] LABS: Alanine Aminotransferase 1096 units/L (7-56)
[2021-03-20] MEDS: METOPROLOL TARTRATE 5 MG/5 ML INJ IV SCH (05:42)
[2021-03-20] MEDS: HEPARIN 5,000 UNIT/1 ML VIAL SUB-Q SCH ×3 (05:42→21:42)
[2021-03-20] MEDS: methylPREDNISolone Sod Succinate 125 MG/2 ML INJ IV SCH ×3 (05:42→17:44)
--- NOTE | 2021-03-20 06:47 | XRay Report ---
CHEST 1 VIEW 03/20/2021 5:23 AM INDICATION / CLINICAL INFORMATION: follow up respiratory failure. COMPARISON: 03/19/2021 FINDINGS: SUPPORT DEVICES: Unchanged. HEART / MEDIASTINUM: Stable. LUNGS / PLEURA: No significant change in bibasilar opacities. No pneumothorax. ADDITIONAL FINDINGS: No significant additional findings. IMPRESSION: 1. No significant change. Signer Name: Ricci Kyle DO Signed: 03/20/2021 6:42 AM Workstation Name: [id number]
[2021-03-20] MEDS: SENNOSIDES/DOCUSATE SODIUM 8.6/50 MG TAB FEEDTUBE SCH ×2 (09:22→21:43)
--- NOTE | 2021-03-20 09:41 | Electrocardiograph Report ---
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
[2021-03-20] MEDS ORDERED: FAMOTIDINE 20 MG TAB PO SCH (10:00)
[2021-03-20 12:06] LABS: ABG Base Excess 7.9 mmol/L (-2.0-3.0); ABG Methemoglobin 0.4 % (0.0-1.5); ABG PCO2 55.7 mm Hg; ABG PH 7.403 pH Units (7.350-7.450); ABG PO2 63.3 mm Hg (80.0-90.0)
--- NOTE | 2021-03-20 13:15 | Progress Note ---
Assessment and Plan - Patient Problems (1) Respiratory failure Current Visit: Yes Status: Acute Plan to address problem: Patient with long history of severe, oxygen dependent COPD, presents with respiratory failure due to COPD exacerbation. Sinus tachycardia on presentation is now resolved. Continue supportive management and current treatment of COPD exacerbation and sepsis. Subjective Date of service: 03/20/21 Principal diagnosis: Atrial fibrillation with RVR, respiratory failure Interval history: Patient is sedated, on the vent. On ekg monitor, she has a sinus rhythm at 98 with intermittent PACs. Blood pressure is 125 systolic. Objective Vital Signs Temp Pulse Pulse Resp BP Pulse Ox 03/20/21 12:30 102 H 16 132/79 95 03/20/21 12:15 104 H 15 129/82 95 03/20/21 12:00 97 H 16 125/84 96 03/20/21 11:45 103 H 15 124/72 97 03/20/21 11:30 104 H 16 127/81 95 03/20/21 11:15 106 H 15 134/80 95 03/20/21 11:00 106 H 16 132/78 93 03/20/21 10:45 109 H 15 132/83 94 03/20/21 10:30 107 H 16 134/88 95 03/20/21 10:15 106 H 17 130/77 95 03/20/21 10:00 108 H 19 125/82 96 03/20/21 09:45 103 H 20 154/85 03/20/21 09:30 110 H 17 147/81 100 03/20/21 09:15 101 H 17 132/78 98 03/20/21 09:00 112 H 18 130/75 97 03/20/21 08:45 108 H 18 124/79 97 03/20/21 08:30 106 H 17 122/83 98 03/20/21 08:15 105 H 18 134/90 97 03/20/21 08:10 145 H 100 03/20/21 08:00 101 H 17 125/86 96 03/20/21 07:45 102 H 17 135/70 96 03/20/21 07:30 95 H 18 129/80 96 03/20/21 07:15 99 H 19 133/76 97 03/20/21 07:00 93 H 17 136/75 96 03/20/21 06:45 106 H 15 126/84 95 03/20/21 06:30 95 H 17 128/84 96 03/20/21 06:15 102 H 17 136/69 95 03/20/21 06:00 100 H 18 124/88 95 03/20/21 05:45 97 H 19 126/88 94 03/20/21 05:31 108 H 19 123/72 95 03/20/21 05:15 101 H 18 129/76 97 03/20/21 05:09 97.7 F 03/20/21 05:01 94 H 19 129/80 100 03/20/21 05:00 145 H 18 100 03/20/21 04:45 127 H 20 121/99 03/20/21 04:31 107 H 16 121/99 03/20/21 04:15 98 H 18 132/83 99 03/20/21 04:10 110 H 131/83 99 03/20/21 04:00 113 H 18 131/83 97 03/20/21 03:45 99 H 18 125/85 98 03/20/21 03:30 115 H 19 118/78 98 03/20/21 03:15 99 H 16 121/83 98 03/20/21 03:00 114 H 18 124/79 97 03/20/21 02:45 103 H 17 124/74 97 03/20/21 02:30 98 H 18 135/77 98 03/20/21 02:15 117 H 16 131/80 99 03/20/21 02:00 104 H 21 123/84 99 03/20/21 01:45 101 H 18 123/74 98 03/20/21 01:30 107 H 18 115/69 98 03/20/21 01:15 106 H 21 108/71 98 03/20/21 01:00 111 H 145 H 19 116/80 98 03/20/21 00:45 97 H 19 116/79 98 03/20/21 00:30 107 H 16 120/72 98 03/20/21 00:15 96 H 18 129/72 98 03/20/21 00:04 100 H 119/68 98 03/20/21 00:00 110 H 16 119/68 98 03/19/21 23:45 102 H 19 121/72 98 03/19/21 23:44 98.2 F 03/19/21 23:30 102 H 17 122/72 98 03/19/21 23:15 107 H 17 125/74 98 03/19/21 23:00 94 H 17 116/71 99 03/19/21 22:45 103 H 20 109/67 99 03/19/21 22:30 99 H 18 127/71 100 03/19/21 22:15 101 H 18 109/72 98 03/19/21 22:13 95 H 18 126/79 99 03/19/21 22:00 99 H 18 126/79 99 03/19/21 21:45 102 H 17 129/75 99 03/19/21 21:30 103 H 15 129/85 99 03/19/21 21:15 103 H 18 135/78 98 03/19/21 21:00 100 H 145 H 20 125/74 98 03/19/21 20:45 115 H 17 124/78 97 03/19/21 20:31 102 H 17 134/80 97 03/19/21 20:21 102 H 127/79 98 03/19/21 20:15 97 H 21 127/79 98 03/19/21 20:00 97.9 F 97 H 18 126/73 98 03/19/21 19:45 100 H 17 139/88 99 03/19/21 19:30 101 H 19 133/82 99 03/19/21 19:15 93 H 18 138/77 99 03/19/21 19:00 97 H 18 135/77 100 03/19/21 18:45 98 H 18 134/84 100 03/19/21 18:30 114 H 17 119/72 100 03/19/21 18:15 103 H 17 116/72 100 03/19/21 18:00 108 H 14 144/80 98 03/19/21 17:45 102 H 15 124/79 97 03/19/21 17:30 103 H 16 115/74 96 03/19/21 17:15 96 H 18 130/89 96 03/19/21 17:00 97 H 145 H 18 130/89 95 03/19/21 16:45 105 H 17 134/81 95 03/19/21 16:30 132 H 37 H 134/93 88 03/19/21 16:15 115 H 24 128/86 98 03/19/21 16:00 132 H 33 H 124/78 86 03/19/21 15:45 119 H 20 132/95 90 03/19/21 15:30 114 H 33 H 134/89 93 03/19/21 15:17 107 H 130/84 100 03/19/21 15:15 111 H 20 137/74 100 03/19/21 15:00 106 H 13 137/74 100 03/19/21 14:45 136/87 100 03/19/21 14:30 106 H 18 141/83 100 03/19/21 14:15 116 H 18 138/84 100 03/19/21 14:01 109 H 14 130/84 100 03/19/21 13:45 124 H 17 114/93 100 03/19/21 13:30 118 H 15 114/93 100 03/19/21 13:15 109 H 14 122/65 100 - Physical Examination General: Other (Intubated, sedated, on the vent) Neck: Positive: neck supple Cardiac: Positive: Reg Rate and Rhythm Lungs: Positive: Decreased Breath Sounds Neuro: Positive: Weakness (Intubated, sedated, on the vent) Abdomen: Positive: Soft Skin: Positive: Clear Extremities: Present: edema (Trace) - Labs and Meds Cardiac Enzymes 03/20/21 Range/Units 04:18 AST 148 H (5-40) units/L CBC 03/20/21 Range/Units 04:18 WBC 10.0 (4.5-11.0) K/mm3 RBC 3.48 L (3.65-5.03) M/mm3 Hgb 7.0 L (10.1-14.3) gm/dl Hct 25.3 L (30.3-42.9) % Plt Count 541 H (140-440) K/mm3 Comprehensive Metabolic Panel 03/19/21 03/20/21 Range/Units 12:00 04:18 Sodium 138 (137-145) mmol/L Potassium 3.7 (3.6-5.0) mmol/L Chloride 91.6 L (98-107) mmol/L Carbon Dioxide 30 (22-30) mmol/L BUN 22 H (7-17) mg/dL Creatinine 0.8 (0.6-1.2) mg/dL Glucose 245 H (65-100) mg/dL Calcium 9.0 (8.4-10.2) mg/dL AST 148 H (5-40) units/L ALT 1434 H 1096 H (7-56) units/L Alkaline Phosphatase 133 H (35-129) units/L Total Protein 6.3 (6.3-8.2) g/dL Albumin 3.5 L (3.9-5) g/dL
[2021-03-20] MEDS: fentaNYL DRIP Premix 2,000 MCG/100 ML BAG IV SCH (13:23)
--- NOTE | 2021-03-20 17:03 | Progress Note ---
<VINNIEDARLENEPorfirio - Last Filed: 03/20/21 16:56> Assessment and Plan Assessment and plan: This is a 50-year-old female with COPD with oxygen dependence, DM, severe anxiety, GERD, HLD, HTN and PAGE admitted with SVT and hypertensive urgency. Neuro: Hepatic/metabolic encephalopathy, h/o severe anxiety, depression -Admit ammonia 116, 03/09 ammonia 26 -Sedated with propofol and fentanyl gtt -RASS goal 0 to -1 -Bilateral wrist restraints in place for safety -Avoid delirium -Maintain sleep-wake cycle -SAT when appropriate -Resume home cymbalta and buspar when appropiate Cardio: Hypertensive emergency, s/p A. fib with RVR, s/p SVT, h/o HTN, HLD -Cardiology consulted, appreciate recommendations -IV metoprolol every 6 changed to home metoprolol but decreased to BID -Resume home statin -Blood pressure monitoring per protocol -Echocardiogram 10/2020 showed EF of 50 to 55%, mild diastolic dysfunction, trace to mild tricuspid regurgitation, mild pulmonary hypertension, RVSP 45 mmHg Resp : Acute on chronic respiratory failure, h/o COPD and PAGE -CCM consulted, appreciate recommendations -CTA chest shows no CT evidence of pulmonary embolism, small right and trace left pleural effusion, upper lobe predominant emphysema -Intubated on 03/17 with 7.00 ETT at 20 at the lips in the ED -A.m. vent settings: Assist control tidal volume 450, rate 16, PEEP 6, 30% FiO2 -See RT noted for titration -possible extubation tomorrow -A.m. ABG and CXR noted -VAP bundle -SPO2 monitoring -Methylprednisone 60 mg every 6 GI: Transaminitis, h/o chronic constipation -NTR consulted, appreciate recommendations -RUQ US shows right hydroureteronephrosis and possible gallbladder sludge or gallstones -We will obtain dedicated renal ultrasound for further investigation -Trend LFTs -PPI -BR: senakot S -24 hours -980 mL -MIVF : Hypochlormia, ? right hydroureteronephrosis -Trend BMP -FWF with TF -Strict I and Os -[place] Endo: NAD -Avoid hypoglycemia -SSI -Accucheck q 6hrs Heme: Leukocytosis (resolved), h/o Microcytic anemia -Trend CBC -Transfuse for hbg <7 -SCDs to BLE while in bed -Lovenox subq ID: Gram positive cocci in tracheal aspirate -02/25 tracheal aspirate with few gram-positive cocci -Levaquin -Trend WBC and fever curve -Leukocytes resolved, afebrile since 03/18 The high probability of a clinically significant, sudden or life threatening deterioration of the [pulm/cv] system(s) required my full and direct attention, intervention and personal management. The aggregate critical care time was [60] minutes. This time is in addition to time spent performing reported procedures but includes the following: [x] Data Review and interpretation [x] Patient assessment and monitoring of vital signs [x] Documentation [x] Medication orders and management Disposition Plan: icu Total Time Spent with Patient (Minutes): 60 History Interval history: This is a 60-year-old female with COPD with oxygen dependence currently with palliative care, DM, former nicotine abuse, severe anxiety, GERD, HLD, HTN and PAGE presented to emergency department on 03/17 via EMS with complaints of shortness of breath. On arrival of EMS patient was found to be in SVT with a heart rate of about 200 and blood pressure to be quite elevated with systolic in 200s. She was given 6 mg of adenosine without significant changes subsequently given 12 mg of adenosine with improvement of her heart rate. Upon arrival to the emergency department patient was found to be in atrial fibrillation with RVR and dyspneic. Work-up in the emergency department revealed leukocytosis, lactic acidosis, transaminitis, hypoalbuminemia and a troponin leak. CXR, CT a chest and CT head were unremarkable. Patient was admitted to the hospitalist service with consults to [facility] and cardiology for further work-up of acute on chronic respiratory failure, SVT and hypertensive urgency. 03/18/2021: Patient is intubated and on vent support, Patient is in sinus tachycardia 03/19: COVID-19 PCR negative, remains on ventilatory support, Versed drip changed to propofol. No acute events reported overnight. Tracheal aspirate with few gram-positive Cocci. This afternoon, patient went in to the 150s, giving 500 mL NS bolus and fentanyl push to see if it pain related. If persists then will order prn Ativan per Dr. Gage recommendation. 03/20: Restarted on home metoprolol and abdominal ultrasound showed right hydronephrosis. Abd US shows right hydroureteronephrosis and will obtain a didicated renal US. She seems to more comfortable on propofol and fentanyl Hospitalist Physical - Constitutional Vitals: Temp Pulse Resp BP Pulse Ox 97.5 F L 95 H 17 120/79 85 03/20/21 12:00 03/20/21 16:45 03/20/21 16:45 03/20/21 16:45 03/20/21 16:30 General appearance: Present: no acute distress, other (sedated) - EENT Eyes: Present: PERRL, EOM intact ENT: hearing intact, clear oral mucosa, dentition normal - Neck Neck: Present: normal ROM - Respiratory Respiratory effort: normal Respiratory: bilateral: diminished - Cardiovascular Rhythm: regular Heart Sounds: Present: S1 & S2. Absent: systolic murmur, diastolic murmur - Extremities Extremities: no ischemia, pulses intact, pulses symmetrical, No edema, normal temperature, normal color Peripheral Pulses: within normal limits - Abdominal General gastrointestinal: soft, non-tender, non-distended, normal bowel sounds - Integumentary Integumentary: Present: warm, dry - Psychiatric Psychiatric: other (sedated) - Neurologic Neurologic: other (sedated) - Allied Health Allied health notes reviewed: nursing, RT, social work HEART Score - HEART Score Troponin: Troponin T 0.015 ng/mL (0.00-0.029) 03/19/21 12:00 Results - Labs CBC & Chem 7: 03/20/21 04:18 03/20/21 04:18 Labs: Laboratory Last Values WBC 10.0 K/mm3 (4.5-11.0) 03/20/21 04:18 RBC 3.48 M/mm3 (3.65-5.03) L 03/20/21 04:18 Hgb 7.0 gm/dl (10.1-14.3) L 03/20/21 04:18 Hct 25.3 % (30.3-42.9) L 03/20/21 04:18 MCV 73 fl (79-97) L 03/20/21 04:18 MCH 20 pg (28-32) L 03/20/21 04:18 MCHC 28 % (30-34) L 03/20/21 04:18 RDW 25.2 % (13.2-15.2) H 03/20/21 04:18 Plt Count 541 K/mm3 (140-440) H 03/20/21 04:18 Add Manual Diff Complete 03/19/21 04:59 Total Counted 100 03/19/21 04:59 Seg Neuts % (Manual) 91.0 % (40.0-70.0) H 03/19/21 04:59 Band Neutrophils % 9.0 % 03/19/21 04:59 Lymphocytes % (Manual) 31.0 % (13.4-35.0) 03/19/21 04:59 Reactive Lymphs % (Man) 5.0 % 03/19/21 04:59 Monocytes % (Manual) 9.0 % (0.0-7.3) H 03/19/21 04:59 Metamyelocytes % 1.0 % 03/19/21 04:59 Myelocytes % 3.0 % 03/19/21 04:59 Promyelocytes % 3.0 % 03/19/21 04:59 Nucleated RBC % 3.0 % (0.0-0.9) H 03/19/21 04:59 Seg Neutrophils # Man 9.0 K/mm3 (1.8-7.7) H 03/19/21 04:59 Band Neutrophils # 0.9 K/mm3 03/19/21 04:59 Lymphocytes # (Manual) 0.0 K/mm3 (1.2-5.4) L 03/19/21 04:59 Abs React Lymphs (Man) 0.0 K/mm3 03/19/21 04:59 Monocytes # (Manual) 0.0 K/mm3 (0.0-0.8) 03/19/21 04:59 Eosinophils # (Manual) 0.0 K/mm3 (0.0-0.4) 03/19/21 04:59 Basophils # (Manual) 0.0 K/mm3 (0.0-0.1) 03/19/21 04:59 Metamyelocytes # 0.0 K/mm3 03/19/21 04:59 Myelocytes # 0.0 K/mm3 03/19/21 04:59 Promyelocytes # 0.0 K/mm3 03/19/21 04:59 Blast Cells # 0.0 K/mm3 03/19/21 04:59 WBC Morphology Not Reportable 03/19/21 04:59 Hypersegmented Neuts Not Reportable 03/19/21 04:59 Hyposegmented Neuts Not Reportable 03/19/21 04:59 Hypogranular Neuts Not Reportable 03/19/21 04:59 Smudge Cells Not Reportable 03/19/21 04:59 Toxic Granulation Not Reportable 03/19/21 04:59 Toxic Vacuolation Not Reportable 03/19/21 04:59 Dohle Bodies Not Reportable 03/19/21 04:59 Pelger-Huet Anomaly Not Reportable 03/19/21 04:59 Florentino Rods Not Reportable 03/19/21 04:59 Platelet Estimate Consistent w auto 03/19/21 04:59 Clumped Platelets Not Reportable 03/19/21 04:59 Plt Clumps, EDTA Not Reportable 03/19/21 04:59 Large Platelets Few 03/19/21 04:59 Giant Platelets Not Reportable 03/19/21 04:59 Platelet Satelliting Not Reportable 03/19/21 04:59 Plt Morphology Comment Not Reportable 03/19/21 04:59 RBC Morphology Not Reportable 03/19/21 04:59 Dimorphic RBCs Not Reportable 03/19/21 04:59 Polychromasia Few 03/19/21 04:59 Hypochromasia 1+ 03/19/21 04:59 Poikilocytosis Not Reportable 03/19/21 04:59 Anisocytosis 1+ 03/19/21 04:59 Microcytosis 2+ 03/19/21 04:59 Macrocytosis Not Reportable 03/19/21 04:59 Spherocytes Not Reportable 03/19/21 04:59 Pappenheimer Bodies Not Reportable 03/19/21 04:59 Sickle Cells Not Reportable 03/19/21 04:59 Target Cells Not Reportable 03/19/21 04:59 Tear Drop Cells Not Reportable 03/19/21 04:59 Ovalocytes 1+ 03/19/21 04:59 Stomatocytes 1+ 03/17/21 17:36 Helmet Cells Not Reportable 03/19/21 04:59 [place] Bodies Not Reportable 03/19/21 04:59 Powers Rings Not Reportable 03/19/21 04:59 Marcelo Cells Not Reportable 03/19/21 04:59 Bite Cells Not Reportable 03/19/21 04:59 Crenated Cell Not Reportable 03/19/21 04:59 Elliptocytes Not Reportable 03/19/21 04:59 Acanthocytes (Spur) Not Reportable 03/19/21 04:59 Rouleaux Not Reportable 03/19/21 04:59 Hemoglobin C Crystals Not Reportable 03/19/21 04:59 Schistocytes Not Reportable 03/19/21 04:59 Malaria parasites Not Reportable 03/19/21 04:59 Maykel Bodies Not Reportable 03/19/21 04:59 Hem Pathologist Commnt No 03/19/21 04:59 PT 12.6 Sec. (12.2-14.9) 03/17/21 17:37 INR 0.85 (0.87-1.13) L 03/17/21 17:37 APTT 23.3 Sec. (24.2-36.6) L 03/17/21 17:37 D-Dimer 947.92 ng/mlDDU (0-234) H 03/17/21 17:37 ABG pH 7.403 pH Units (7.350-7.450) 03/20/21 10:16 ABG pCO2 55.7 mm Hg 03/20/21 10:16 ABG pO2 63.3 mm Hg (80.0-90.0) L 03/20/21 10:16 ABG HCO3 34.0 mmol/L (20.0-26.0) H 03/20/21 10:16 ABG O2 Saturation 90.0 % (95.0-99.0) L 03/20/21 10:16 ABG O2 Content 13.0 (0.0-44) 03/20/21 10:16 ABG Base Excess 7.9 mmol/L (-2.0-3.0) H 03/20/21 10:16 ABG Hemoglobin 10.5 gm/dl (12.0-16.0) L 03/20/21 10:16 ABG Carboxyhemoglobin 1.7 % (0.0-5.0) 03/20/21 10:16 ABG Methemoglobin 0.4 % (0.0-1.5) 03/20/21 10:16 Oxyhemoglobin 88.1 % (95.0-99.0) L 03/20/21 10:16 FiO2 30 % 03/20/21 10:16 Sodium 138 mmol/L (137-145) 03/20/21 04:18 Potassium 3.7 mmol/L (3.6-5.0) 03/20/21 04:18 Chloride 91.6 mmol/L (98-107) L 03/20/21 04:18 Carbon Dioxide 30 mmol/L (22-30) 03/20/21 04:18 Anion Gap 20 mmol/L 03/20/21 04:18 BUN 22 mg/dL (7-17) H 03/20/21 04:18 Creatinine 0.8 mg/dL (0.6-1.2) 03/20/21 04:18 Estimated GFR > 60 ml/min 03/20/21 04:18 BUN/Creatinine Ratio 28 % 03/20/21 04:18 Glucose 245 mg/dL (65-100) H 03/20/21 04:18 POC Glucose 226 mg/dL (70-105) H 03/20/21 12:05 Lactic Acid 4.00 mmol/L (0.7-2.0) H* 03/17/21 23:36 Calcium 9.0 mg/dL (8.4-10.2) 03/20/21 04:18 Phosphorus 3.50 mg/dL (2.5-4.5) 03/20/21 04:18 Magnesium 1.80 mg/dL (1.7-2.3) 03/20/21 04:18 Total Bilirubin 0.30 mg/dL (0.1-1.2) 03/20/21 04:18 Direct Bilirubin < 0.2 mg/dL (0-0.2) 03/19/21 12:00 Indirect Bilirubin 0.1 mg/dL 03/19/21 12:00 AST 148 units/L (5-40) H 03/20/21 04:18 ALT 1096 units/L (7-56) H 03/20/21 04:18 Alkaline Phosphatase 133 units/L (35-129) H 03/20/21 04:18 Ammonia 26.0 umol/L (25-60) 03/19/21 12:00 Troponin T 0.015 ng/mL (0.00-0.029) 03/19/21 12:00 NT-Pro-B Natriuret Pep 576.0 pg/mL (0-900) 03/17/21 17:36 Total Protein 6.3 g/dL (6.3-8.2) 03/20/21 04:18 Albumin 3.5 g/dL (3.9-5) L 03/20/21 04:18 Albumin/Globulin Ratio 1.3 % 03/20/21 04:18 Triglycerides 173 mg/dL (2-149) H 03/17/21 17:36 Cholesterol 191 mg/dL (50-199) 03/17/21 17:36 LDL Cholesterol Direct 80 mg/dL (50-130) 03/17/21 17:36 HDL Cholesterol 73 mg/dL (40-59) H 03/17/21 17:36 Cholesterol/HDL Ratio 2.61 % 03/17/21 17:36 Amylase 78 units/L (27-131) 03/19/21 Unknown Lipase 12 units/L (13-60) L 03/19/21 Unknown TSH 3.510 mlU/mL (0.270-4.200) 03/17/21 22:57 Urine Color Mayuri (Yellow) 03/17/21 19:42 Urine Turbidity Slightly-cloudy (Clear) 03/17/21 19:42 Urine pH 7.0 (5.0-7.0) 03/17/21 19:42 Ur Specific [place] 1.015 (1.003-1.030) 03/17/21 19:42 Urine Protein 100 mg/dl mg/dL (Negative) 03/17/21 19:42 Urine Glucose (UA) Neg mg/dL (Negative) 03/17/21 19:42 Urine Ketones 20 mg/dL (Negative) 03/17/21 19:42 Urine Blood Sm (Negative) 03/17/21 19:42 Urine Nitrite Neg (Negative) 03/17/21 19:42 Urine Bilirubin Neg (Negative) 03/17/21 19:42 Urine Urobilinogen 2.0 mg/dL (<2.0) 03/17/21 19:42 Ur Leukocyte Esterase Neg (Negative) 03/17/21 19:42 Urine WBC (Auto) 4.0 /HPF (0.0-6.0) 03/17/21 19:42 Urine RBC (Auto) 6.0 /HPF (0.0-6.0) 03/17/21 19:42 U Epithel Cells (Auto) 5.0 /HPF (0-13.0) 03/17/21 19:42 Urine Bacteria (Auto) 1+ /HPF (Negative) 03/17/21 19:42 Urine Mucus 1+ /HPF 03/17/21 19:42 Urine Yeast (Budding) Few /HPF 03/17/21 19:42 Acetaminophen 5.0 ug/mL (10.0-30.0) L 03/18/21 23:07 Coronavirus (PCR) Negative (Negative) 03/19/21 Unknown Blood Type A POSITIVE 03/17/21 18:40 Antibody Screen Negative 03/17/21 18:40 Microbiology: Microbiology 03/17/21 18:10 Tracheal Aspirate Sputum Culture - Final [place]/IV: Voiding Method Indwelling Catheter Active Medications - Current Medications Current Medications: Generic Name Dose Route Start Last Admin Trade Name Freq PRN Reason Stop Dose Admin Acetaminophen 650 mg 03/18/21 00:05 Acetaminophen 325 Mg Tab PO Q6H PRN Pain MILD(1-3)/Fever >100.5/TOVAR Albuterol 2.5 mg 03/18/21 12:00 03/19/21 03:28 Albuterol 2.5 Mg/3 Ml Nebu IH 2.5 mg PRN PRN Administration Wheezing Lipase/Protease/Amylase 1 each 03/19/21 18:16 Lipase 10,500/Protease 25,000/Amylase 43,750 (Units) Dr Newman FEEDTUBE PRN PRN For Clogged Feeding Tube Atorvastatin Calcium 10 mg 03/19/21 22:00 03/19/21 22:12 Atorvastatin 10 Mg Tab PO 10 mg QHS BUTCH Administration Dextrose 0 ml 03/17/21 23:58 Dextrose 50% In Water (25gm) 50 Ml Syringe IV Q30MIN PRN Hypoglycemia Protocol Famotidine 20 mg 03/20/21 22:00 Famotidine 20 Mg Tab FEEDTUBE BID BUTCH Fentanyl 50 mcg 03/18/21 20:38 03/19/21 16:30 Fentanyl 100 Mcg/2 Ml Inj IV 50 mcg Q10MIN PRN Administration ANALGESIA Heparin Sodium (Porcine) 5,000 unit 03/18/21 06:00 03/20/21 13:25 Heparin 5,000 Unit/1 Ml Vial SUB-Q 5,000 unit Q8HR BUTCH Administration Hydrophilic Ointment 1 applic 03/17/21 17:35 Lip Therapy Vaseline TP Q2HR PRN Dry Lips Levofloxacin/Dextrose 750 mg in 150 mls @ 100 mls/hr 03/18/21 01:00 03/20/21 09:22 Levaquin 750mg/150ml IV 03/21/21 11:29 100 mls/hr Q24HR BUTCH Administration Protocol Propofol 1,000 mg in 100 mls @ 4.5 mls/hr 03/18/21 21:00 03/19/21 22:11 Diprivan 10 Mg/Ml IV 10 mcg/kg/min TITR BUTCH 4.5 mls/hr Administration Protocol 10 MCG/KG/MIN Fentanyl Citrate 2,000 mcg in 100 mls @ 3.75 mls/hr 03/18/21 21:00 03/20/21 13:23 Fentanyl Drip Premix IV 1 mcg/kg/hr TITR BUTCH 3.75 mls/hr Administration Protocol 1 MCG/KG/HR Insulin Glargine 10 units 03/20/21 22:00 Insulin Glargine 100 Units/Ml SUB-Q QHS [facility] Insulin Human Lispro 0 unit 03/19/21 12:00 03/20/21 13:24 Insulin Lispro 100 Unit/Ml SUB-Q 3 unit Q6HR [facility] Administration Protocol Magnesium Hydroxide 30 ml 03/18/21 00:05 Magnesium Hydroxide (Mom) Oral Liqd Udc PO Q4H PRN Constipation Methylprednisolone Sodium Succinate 60 mg 03/19/21 00:00 03/20/21 13:28 Methylprednisolone Sod Succinate 125 Mg/2 Ml Inj IV 60 mg Q6H [facility] Administration Metoprolol Tartrate 25 mg 03/20/21 22:00 Metoprolol Tartrate 25 Mg Tab PO BID [facility] Morphine Sulfate 2 mg 03/18/21 00:05 Morphine 2 Mg/1 Ml Inj IV Q4H PRN Pain, Moderate (4-6) Morphine Sulfate 4 mg 03/18/21 00:05 Morphine 4 Mg/1 Ml Inj IV Q4H PRN Pain , Severe (7-10) Multi-Ingred Cream/Lotion/Oil/Oint 1 applic 03/17/21 17:35 Mineral Oil/Petrolatum, White Ophth Oint 3.5 Gm OU Q4HR PRN Dry Eye(s) Senna/Docusate Sodium 1 tab 03/17/21 22:00 03/20/21 09:22 Sennosides/Docusate Sodium 8.6/50 Mg Tab FEEDTUBE 1 tab BID BUTCH Administration Simple Syrup 15 ml 03/19/21 18:16 Simple Syrup 15 Ml FEEDTUBE PRN PRN Hypoglycemia Simple Syrup 30 ml 03/19/21 18:16 Simple Syrup 15 Ml FEEDTUBE PRN PRN Hypoglycemia Sodium Bicarbonate 325 mg 03/19/21 18:16 Sodium Bicarbonate 325 Mg Tab FEEDTUBE PRN PRN For Clogged Feeding Tube Sodium Chloride 10 ml 03/18/21 10:00 03/20/21 09:23 Sodium Chloride 0.9% 10 Ml Flush Syringe IV 10 ml BID BUTCH Administration Sodium Chloride 10 ml 03/17/21 23:58 Sodium Chloride 0.9% 10 Ml Flush Syringe IV PRN PRN LINE FLUSH Nutrition/Malnutrition Assess - Dietary Evaluation Nutrition/Malnutrition Findings: Nutrition Notes Start: 03/18/21 09:46 Freq: Status: Active Protocol: Document 03/19/21 17:57 SHELBI (Rec: 03/19/21 18:16 SHELBI [id number]) Nutrition Notes Need for Assessment generated from: MD Order Initial or Follow up Brief Note Subjective/Other Information RD consulted for TF. Nutrition Intervention Nutrition Support: Promote at 70ml/hr with 50ml water flush q4h. Kcal 1,680 Protein (gm) 105 Carbohydrates (gm) 218 Fat (gm) 44 Fluid (mL) 1,410 Fiber (gm) 0 Goal #1 TF tolerance Goal #2 TF to meet at least 75% energy and pro needs Follow-Up By: 03/21/21 Additional Comments F/U: new TF, vent status <LISSET VIDES O - Last Filed: 03/21/21 09:18> Assessment and Plan Assessment and plan: I saw and evaluated the patient. I agree with the findings and the plan of care as documented in the Nurse Practitioner's~note, with the following corrections and additions. patient with acute respiratory failure, encephalopathy. Hospitalist Physical - Constitutional Vitals: Temp Pulse Resp BP Pulse Ox 98.7 F 102 H 15 118/79 100 03/21/21 08:00 03/21/21 06:45 03/21/21 06:45 03/21/21 06:45 03/21/21 06:45 HEART Score - HEART Score Troponin: Troponin T 0.015 ng/mL (0.00-0.029) 03/19/21 12:00 Results - Labs CBC & Chem 7: 03/20/21 04:18 03/20/21 04:18 Labs: Laboratory Last Values WBC 10.0 K/mm3 (4.5-11.0) 03/20/21 04:18 RBC 3.48 M/mm3 (3.65-5.03) L 03/20/21 04:18 Hgb 7.0 gm/dl (10.1-14.3) L 03/20/21 04:18 Hct 25.3 % (30.3-42.9) L 03/20/21 04:18 MCV 73 fl (79-97) L 03/20/21 04:18 MCH 20 pg (28-32) L 03/20/21 04:18 MCHC 28 % (30-34) L 03/20/21 04:18 RDW 25.2 % (13.2-15.2) H 03/20/21 04:18 Plt Count 541 K/mm3 (140-440) H 03/20/21 04:18 Add Manual Diff Complete 03/19/21 04:59 Total Counted 100 03/19/21 04:59 Seg Neuts % (Manual) 91.0 % (40.0-70.0) H 03/19/21 04:59 Band Neutrophils % 9.0 % 03/19/21 04:59 Lymphocytes % (Manual) 31.0 % (13.4-35.0) 03/19/21 04:59 Reactive Lymphs % (Man) 5.0 % 03/19/21 04:59 Monocytes % (Manual) 9.0 % (0.0-7.3) H 03/19/21 04:59 Metamyelocytes % 1.0 % 03/19/21 04:59 Myelocytes % 3.0 % 03/19/21 04:59 Promyelocytes % 3.0 % 03/19/21 04:59 Nucleated RBC % 3.0 % (0.0-0.9) H 03/19/21 04:59 Seg Neutrophils # Man 9.0 K/mm3 (1.8-7.7) H 03/19/21 04:59 Band Neutrophils # 0.9 K/mm3 03/19/21 04:59 Lymphocytes # (Manual) 0.0 K/mm3 (1.2-5.4) L 03/19/21 04:59 Abs React Lymphs (Man) 0.0 K/mm3 03/19/21 04:59 Monocytes # (Manual) 0.0 K/mm3 (0.0-0.8) 03/19/21 04:59 Eosinophils # (Manual) 0.0 K/mm3 (0.0-0.4) 03/19/21 04:59 Basophils # (Manual) 0.0 K/mm3 (0.0-0.1) 03/19/21 04:59 Metamyelocytes # 0.0 K/mm3 03/19/21 04:59 Myelocytes # 0.0 K/mm3 03/19/21 04:59 Promyelocytes # 0.0 K/mm3 03/19/21 04:59 Blast Cells # 0.0 K/mm3 03/19/21 04:59 WBC Morphology Not Reportable 03/19/21 04:59 Hypersegmented Neuts Not Reportable 03/19/21 04:59 Hyposegmented Neuts Not Reportable 03/19/21 04:59 Hypogranular Neuts Not Reportable 03/19/21 04:59 Smudge Cells Not Reportable 03/19/21 04:59 Toxic Granulation Not Reportable 03/19/21 04:59 Toxic Vacuolation Not Reportable 03/19/21 04:59 Dohle Bodies Not Reportable 03/19/21 04:59 Pelger-Huet Anomaly Not Reportable 03/19/21 04:59 Florentino Rods Not Reportable 03/19/21 04:59 Platelet Estimate Consistent w auto 03/19/21 04:59 Clumped Platelets Not Reportable 03/19/21 04:59 Plt Clumps, EDTA Not Reportable 03/19/21 04:59 Large Platelets Few 03/19/21 04:59 Giant Platelets Not Reportable 03/19/21 04:59 Platelet Satelliting Not Reportable 03/19/21 04:59 Plt Morphology Comment Not Reportable 03/19/21 04:59 RBC Morphology Not Reportable 03/19/21 04:59 Dimorphic RBCs Not Reportable 03/19/21 04:59 Polychromasia Few 03/19/21 04:59 Hypochromasia 1+ 03/19/21 04:59 Poikilocytosis Not Reportable 03/19/21 04:59 Anisocytosis 1+ 03/19/21 04:59 Microcytosis 2+ 03/19/21 04:59 Macrocytosis Not Reportable 03/19/21 04:59 Spherocytes Not Reportable 03/19/21 04:59 Pappenheimer Bodies Not Reportable 03/19/21 04:59 Sickle Cells Not Reportable 03/19/21 04:59 Target Cells Not Reportable 03/19/21 04:59 Tear Drop Cells Not Reportable 03/19/21 04:59 Ovalocytes 1+ 03/19/21 04:59 Stomatocytes 1+ 03/17/21 17:36 Helmet Cells Not Reportable 03/19/21 04:59 [place] Bodies Not Reportable 03/19/21 04:59 Powers Rings Not Reportable 03/19/21 04:59 [place] Cells Not Reportable 03/19/21 04:59 Bite Cells Not Reportable 03/19/21 04:59 Crenated Cell Not Reportable 03/19/21 04:59 Elliptocytes Not Reportable 03/19/21 04:59 Acanthocytes (Spur) Not Reportable 03/19/21 04:59 Rouleaux Not Reportable 03/19/21 04:59 Hemoglobin C Crystals Not Reportable 03/19/21 04:59 Schistocytes Not Reportable 03/19/21 04:59 Malaria parasites Not Reportable 03/19/21 04:59 Maykel Bodies Not Reportable 03/19/21 04:59 Hem Pathologist Commnt No 03/19/21 04:59 PT 12.6 Sec. (12.2-14.9) 03/17/21 17:37 INR 0.85 (0.87-1.13) L 03/17/21 17:37 APTT 23.3 Sec. (24.2-36.6) L 03/17/21 17:37 D-Dimer 947.92 ng/mlDDU (0-234) H 03/17/21 17:37 ABG pH 7.348 pH Units (7.350-7.450) L 03/21/21 04:00 ABG pCO2 68.7 mm Hg 03/21/21 04:00 ABG pO2 56.3 mm Hg (80.0-90.0) L 03/21/21 04:00 ABG HCO3 36.9 mmol/L (20.0-26.0) H 03/21/21 04:00 ABG O2 Saturation 83.4 % (95.0-99.0) L 03/21/21 04:00 ABG O2 Content 8.1 (0.0-44) 03/21/21 04:00 ABG Base Excess 10.0 mmol/L (-2.0-3.0) H 03/21/21 04:00 ABG Hemoglobin 7.0 gm/dl (12.0-16.0) L 03/21/21 04:00 ABG Carboxyhemoglobin 1.8 % (0.0-5.0) 03/21/21 04:00 ABG Methemoglobin 0.4 % (0.0-1.5) 03/21/21 04:00 Oxyhemoglobin 81.7 % (95.0-99.0) L 03/21/21 04:00 FiO2 30 % 03/21/21 04:00 Sodium 138 mmol/L (137-145) 03/20/21 04:18 Potassium 3.7 mmol/L (3.6-5.0) 03/20/21 04:18 Chloride 91.6 mmol/L (98-107) L 03/20/21 04:18 Carbon Dioxide 30 mmol/L (22-30) 03/20/21 04:18 Anion Gap 20 mmol/L 03/20/21 04:18 BUN 22 mg/dL (7-17) H 03/20/21 04:18 Creatinine 0.8 mg/dL (0.6-1.2) 03/20/21 04:18 Estimated GFR > 60 ml/min 03/20/21 04:18 BUN/Creatinine Ratio 28 % 03/20/21 04:18 Glucose 245 mg/dL (65-100) H 03/20/21 04:18 POC Glucose 311 mg/dL (70-105) H 03/21/21 05:05 Lactic Acid 4.00 mmol/L (0.7-2.0) H* 03/17/21 23:36 Calcium 9.0 mg/dL (8.4-10.2) 03/20/21 04:18 Phosphorus 3.50 mg/dL (2.5-4.5) 03/20/21 04:18 Magnesium 1.80 mg/dL (1.7-2.3) 03/20/21 04:18 Total Bilirubin 0.30 mg/dL (0.1-1.2) 03/20/21 04:18 Direct Bilirubin < 0.2 mg/dL (0-0.2) 03/19/21 12:00 Indirect Bilirubin 0.1 mg/dL 03/19/21 12:00 AST 148 units/L (5-40) H 03/20/21 04:18 ALT 1096 units/L (7-56) H 03/20/21 04:18 Alkaline Phosphatase 133 units/L (35-129) H 03/20/21 04:18 Ammonia 26.0 umol/L (25-60) 03/19/21 12:00 Troponin T 0.015 ng/mL (0.00-0.029) 03/19/21 12:00 NT-Pro-B Natriuret Pep 576.0 pg/mL (0-900) 03/17/21 17:36 Total Protein 6.3 g/dL (6.3-8.2) 03/20/21 04:18 Albumin 3.5 g/dL (3.9-5) L 03/20/21 04:18 Albumin/Globulin Ratio 1.3 % 03/20/21 04:18 Triglycerides 173 mg/dL (2-149) H 03/17/21 17:36 Cholesterol 191 mg/dL (50-199) 03/17/21 17:36 LDL Cholesterol Direct 80 mg/dL (50-130) 03/17/21 17:36 HDL Cholesterol 73 mg/dL (40-59) H 03/17/21 17:36 Cholesterol/HDL Ratio 2.61 % 03/17/21 17:36 Amylase 78 units/L (27-131) 03/19/21 Unknown Lipase 12 units/L (13-60) L 03/19/21 Unknown TSH 3.510 mlU/mL (0.270-4.200) 03/17/21 22:57 Urine Color [place] (Yellow) 03/17/21 19:42 Urine Turbidity Slightly-cloudy (Clear) 03/17/21 19:42 Urine pH 7.0 (5.0-7.0) 03/17/21 19:42 Ur Specific [place] 1.015 (1.003-1.030) 03/17/21 19:42 Urine Protein 100 mg/dl mg/dL (Negative) 03/17/21 19:42 Urine Glucose (UA) Neg mg/dL (Negative) 03/17/21 19:42 Urine Ketones 20 mg/dL (Negative) 03/17/21 19:42 Urine Blood Sm (Negative) 03/17/21 19:42 Urine Nitrite Neg (Negative) 03/17/21 19:42 Urine Bilirubin Neg (Negative) 03/17/21 19:42 Urine Urobilinogen 2.0 mg/dL (<2.0) 03/17/21 19:42 Ur Leukocyte Esterase Neg (Negative) 03/17/21 19:42 Urine WBC (Auto) 4.0 /HPF (0.0-6.0) 03/17/21 19:42 Urine RBC (Auto) 6.0 /HPF (0.0-6.0) 03/17/21 19:42 U Epithel Cells (Auto) 5.0 /HPF (0-13.0) 03/17/21 19:42 Urine Bacteria (Auto) 1+ /HPF (Negative) 03/17/21 19:42 Urine Mucus 1+ /HPF 03/17/21 19:42 Urine Yeast (Budding) Few /HPF 03/17/21 19:42 Acetaminophen 5.0 ug/mL (10.0-30.0) L 03/18/21 23:07 Coronavirus (PCR) Negative (Negative) 03/19/21 Unknown Blood Type A POSITIVE 03/17/21 18:40 Antibody Screen Negative 03/17/21 18:40 Microbiology: Microbiology 03/17/21 18:10 Tracheal Aspirate Sputum Culture - Final [place]/IV: Voiding Method Indwelling Catheter Active Medications - Current Medications Current Medications: Generic Name Dose Route Start Last Admin Trade Name Freq PRN Reason Stop Dose Admin Acetaminophen 650 mg 03/18/21 00:05 Acetaminophen 325 Mg Tab PO Q6H PRN Pain MILD(1-3)/Fever >100.5/TOVAR Albuterol 2.5 mg 03/18/21 12:00 03/19/21 03:28 Albuterol 2.5 Mg/3 Ml Nebu IH 2.5 mg PRN PRN Administration Wheezing Lipase/Protease/Amylase 1 each 03/19/21 18:16 Lipase 10,500/Protease 25,000/Amylase 43,750 (Units) Dr Newman FEEDTUBE PRN PRN For Clogged Feeding Tube Atorvastatin Calcium 10 mg 03/19/21 22:00 03/20/21 21:42 Atorvastatin 10 Mg Tab PO 10 mg QHS BUTCH Administration Dextrose 0 ml 03/17/21 23:58 Dextrose 50% In Water (25gm) 50 Ml Syringe IV Q30MIN PRN Hypoglycemia Protocol Famotidine 20 mg 03/20/21 22:00 03/20/21 21:43 Famotidine 20 Mg Tab FEEDTUBE 20 mg BID BUTCH Administration Fentanyl 50 mcg 03/18/21 20:38 03/19/21 16:30 Fentanyl 100 Mcg/2 Ml Inj IV 50 mcg Q10MIN PRN Administration ANALGESIA Heparin Sodium (Porcine) 5,000 unit 03/18/21 06:00 03/21/21 05:01 Heparin 5,000 Unit/1 Ml Vial SUB-Q 5,000 unit Q8HR BUTCH Administration Hydrophilic Ointment 1 applic 03/17/21 17:35 Lip Therapy Vaseline TP Q2HR PRN Dry Lips Levofloxacin/Dextrose 750 mg in 150 mls @ 100 mls/hr 03/18/21 01:00 03/20/21 09:22 Levaquin 750mg/150ml IV 03/21/21 11:29 100 mls/hr Q24HR BUTCH Administration Protocol Propofol 1,000 mg in 100 mls @ 4.5 mls/hr 03/18/21 21:00 03/21/21 06:13 Diprivan 10 Mg/Ml IV 15 mcg/kg/min TITR BUTCH 6.75 mls/hr Administration Protocol 10 MCG/KG/MIN Fentanyl Citrate 2,000 mcg in 100 mls @ 3.75 mls/hr 03/18/21 21:00 03/20/21 13:23 Fentanyl Drip Premix IV 1 mcg/kg/hr TITR BUTCH 3.75 mls/hr Administration Protocol 1 MCG/KG/HR Insulin Glargine 15 units 03/21/21 22:00 Insulin Glargine 100 Units/Ml SUB-Q QHS BUTCH Insulin Human Lispro 0 unit 03/19/21 12:00 03/21/21 05:12 Insulin Lispro 100 Unit/Ml SUB-Q 6 unit Q6HR BUTCH Administration Protocol Magnesium Hydroxide 30 ml 03/18/21 00:05 Magnesium Hydroxide (Mom) Oral Liqd Udc PO Q4H PRN Constipation Methylprednisolone Sodium Succinate 60 mg 03/19/21 00:00 03/21/21 05:02 Methylprednisolone Sod Succinate 125 Mg/2 Ml Inj IV 60 mg Q6H BUTCH Administration Metoprolol Tartrate 25 mg 03/20/21 22:00 03/20/21 21:42 Metoprolol Tartrate 25 Mg Tab PO 25 mg BID BUTCH Administration Morphine Sulfate 2 mg 03/18/21 00:05 Morphine 2 Mg/1 Ml Inj IV Q4H PRN Pain, Moderate (4-6) Morphine Sulfate 4 mg 03/18/21 00:05 Morphine 4 Mg/1 Ml Inj IV Q4H PRN Pain , Severe (7-10) Multi-Ingred Cream/Lotion/Oil/Oint 1 applic 03/17/21 17:35 Mineral Oil/Petrolatum, White Ophth Oint 3.5 Gm OU Q4HR PRN Dry Eye(s) Senna/Docusate Sodium 1 tab 03/17/21 22:00 03/20/21 21:43 Sennosides/Docusate Sodium 8.6/50 Mg Tab FEEDTUBE 1 tab BID BUTCH Administration Simple Syrup 15 ml 03/19/21 18:16 Simple Syrup 15 Ml FEEDTUBE PRN PRN Hypoglycemia Simple Syrup 30 ml 03/19/21 18:16 Simple Syrup 15 Ml FEEDTUBE PRN PRN Hypoglycemia Sodium Bicarbonate 325 mg 03/19/21 18:16 Sodium Bicarbonate 325 Mg Tab FEEDTUBE PRN PRN For Clogged Feeding Tube Sodium Chloride 10 ml 03/18/21 10:00 03/20/21 21:43 Sodium Chloride 0.9% 10 Ml Flush Syringe IV 10 ml BID BUTCH Administration Sodium Chloride 10 ml 03/17/21 23:58 Sodium Chloride 0.9% 10 Ml Flush Syringe IV PRN PRN LINE FLUSH Nutrition/Malnutrition Assess - Dietary Evaluation Nutrition/Malnutrition Findings: Nutrition Notes Start: 03/18/21 09:46 Freq: Status: Active Protocol: Document 03/19/21 17:57 SHELBI (Rec: 03/19/21 18:16 SHELBI [id number]) Nutrition Notes Need for Assessment generated from: MD Order Initial or Follow up Brief Note Subjective/Other Information RD consulted for TF. Nutrition Intervention Nutrition Support: Promote at 70ml/hr with 50ml water flush q4h. Kcal 1,680 Protein (gm) 105 Carbohydrates (gm) 218 Fat (gm) 44 Fluid (mL) 1,410 Fiber (gm) 0 Goal #1 TF tolerance Goal #2 TF to meet at least 75% energy and pro needs Follow-Up By: 03/21/21 Additional Comments F/U: new TF, vent status
[2021-03-20] MEDS: METOPROLOL TARTRATE 25 MG TAB PO SCH (21:42)
[2021-03-20] MEDS: FAMOTIDINE 20 MG TAB FEEDTUBE SCH (21:43)
[2021-03-20] MEDS ORDERED: INSULIN GLARGINE 100 UNITS/ML SUB-Q SCH (22:00)
--- NOTE | 2021-03-20 22:02 | Ultrasound Report ---
ULTRASOUND RENAL INDICATION / CLINICAL INFORMATION: eval of kidneys. COMPARISON: Abdominal ultrasound from yesterday FINDINGS: RIGHT KIDNEY: Length = 10.6 cm. [normal > 9 cm] - Parenchymal Thickness = 0.9 cm. [normal > 1.5 cm] - Echogenicity: Normal. - Hydronephrosis: Mild with trace perinephric fluid - Cyst or mass: No significant abnormality. - Stones: None seen. LEFT KIDNEY: Length = 10.7 cm. [normal > 9 cm] - Parenchymal Thickness = 1.7 cm. [normal > 1.5 cm] - Echogenicity: Normal. - Hydronephrosis: None. - Cyst or mass: No significant abnormality. - Stones: None seen. URINARY BLADDER: Collapsed with [place] catheter in place limiting evaluation. FREE FLUID: None. ADDITIONAL FINDINGS: None. IMPRESSION: 1. Mild right-sided hydronephrosis with parenchymal thinning and trace perinephric fluid. Signer Name: Joel Chand MD Signed: 03/20/2021 9:58 PM Workstation Name: [id number]
[2021-03-21] MEDS: INSULIN LISPRO 100 UNIT/ML SUB-Q SCH ×4 (00:36→17:37)
[2021-03-21] MEDS: methylPREDNISolone Sod Succinate 125 MG/2 ML INJ IV SCH ×3 (00:36→12:49)
--- NOTE | 2021-03-21 02:53 | XRay Report ---
CHEST 1 VIEW 03/21/2021 1:36 AM INDICATION / CLINICAL INFORMATION: follow up respiratory failure. COMPARISON: 03/20/2021 FINDINGS: SUPPORT DEVICES: Unchanged. HEART / MEDIASTINUM: Stable. LUNGS / PLEURA: Redemonstrated bibasilar opacities. No pneumothorax. ADDITIONAL FINDINGS: No significant additional findings. IMPRESSION: 1. No significant change. Signer Name: Ricci Kyle DO Signed: 03/21/2021 2:48 AM Workstation Name: [id number]
[2021-03-21] MEDS: HEPARIN 5,000 UNIT/1 ML VIAL SUB-Q SCH ×3 (05:01→21:53)
[2021-03-21 05:12] LABS: ABG HCO3 36.9 mmol/L (20.0-26.0); ABG Methemoglobin 0.4 % (0.0-1.5); ABG Oxygen Saturation 83.4 % (95.0-99.0); ABG PCO2 68.7 mm Hg; ABG PH 7.348 pH Units (7.350-7.450); ABG PO2 56.3 mm Hg (80.0-90.0)
[2021-03-21] MEDS: SENNOSIDES/DOCUSATE SODIUM 8.6/50 MG TAB FEEDTUBE SCH ×2 (09:35→21:53)
[2021-03-21] MEDS: FAMOTIDINE 20 MG TAB FEEDTUBE SCH ×2 (09:35→21:53)
[2021-03-21] MEDS: METOPROLOL TARTRATE 25 MG TAB PO SCH ×2 (09:35→21:53)
[2021-03-21] MEDS: fentaNYL DRIP Premix 2,000 MCG/100 ML BAG IV SCH (10:00)
[2021-03-21 10:01] LABS: Mean Corpuscular HGB Conc 27 % (30-34); Mean Corpuscular Volume 74 fl (79-97); Platelet Count 650 K/mm3 (140-440); Red Blood Count 3.42 M/mm3 (3.65-5.03)
[2021-03-21 10:14] LABS: Hematocrit 25.3 % (30.3-42.9); Hemoglobin 6.8 gm/dl (10.1-14.3); Red Cell Distribution Width 25.1 % (13.2-15.2)
--- NOTE | 2021-03-21 10:15 | Progress Note ---
Assessment and Plan - Patient Problems (1) Respiratory failure Current Visit: Yes Status: Acute Plan to address problem: Patient with long history of severe, oxygen dependent COPD, presents with respiratory failure due to COPD exacerbation. Sinus tachycardia on presentation is now resolved. Continue supportive management and current treatment of COPD exacerbation and sepsis. Subjective Date of service: 03/21/21 Principal diagnosis: Atrial fibrillation with RVR, respiratory failure Interval history: Patient is sedated, on the vent. 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 Objective Vital Signs Temp Pulse Pulse Resp BP Pulse Ox 03/21/21 09:45 93 H 16 141/94 100 03/21/21 09:35 87 140/86 100 03/21/21 09:30 105 H 16 114/77 96 03/21/21 09:15 86 16 114/77 03/21/21 09:00 87 16 116/79 03/21/21 08:45 86 16 116/78 100 03/21/21 08:30 88 16 110/80 03/21/21 08:15 89 15 109/79 03/21/21 08:00 98.7 F 89 16 115/79 100 03/21/21 07:45 88 16 116/81 03/21/21 07:30 89 15 114/77 100 03/21/21 07:15 93 H 17 114/77 100 03/21/21 07:00 91 H 14 106/75 100 03/21/21 06:45 102 H 15 118/79 100 03/21/21 06:30 99 H 20 99/76 100 03/21/21 06:15 102 H 16 118/79 89 03/21/21 06:00 97 H 16 113/81 03/21/21 05:45 99 H 19 118/80 03/21/21 05:30 102 H 17 116/75 90 03/21/21 05:15 98 H 17 113/67 91 03/21/21 05:00 116 H 145 H 17 122/87 89 03/21/21 04:45 95 H 14 116/85 92 03/21/21 04:30 98 H 16 118/81 03/21/21 04:15 94 H 16 118/79 91 03/21/21 04:00 97.2 F L 94 H 19 125/82 92 03/21/21 03:47 102 H 117/82 92 03/21/21 03:45 92 H 16 117/82 97 03/21/21 03:37 102 H 03/21/21 03:30 96 H 16 126/82 87 03/21/21 03:15 94 H 15 108/79 87 03/21/21 03:00 92 H 15 117/78 90 03/21/21 02:45 96 H 15 132/81 91 03/21/21 02:30 92 H 15 117/75 89 03/21/21 02:15 113 H 29 H 110/69 95 03/21/21 02:00 91 H 16 110/69 97 03/21/21 01:45 88 15 105/65 97 03/21/21 01:30 89 15 102/67 98 03/21/21 01:15 90 16 105/66 97 03/21/21 01:02 97.8 F 03/21/21 01:00 85 145 H 16 100/64 97 03/21/21 00:45 87 16 100/65 99 03/21/21 00:30 85 14 106/69 98 03/21/21 00:26 90 104/64 96 03/21/21 00:15 84 16 104/64 97 03/21/21 00:03 85 15 103/66 96 03/21/21 00:00 83 15 103/66 03/20/21 23:45 86 17 102/66 95 03/20/21 23:44 96.4 F L 03/20/21 23:30 88 13 105/69 97 03/20/21 23:15 85 16 104/70 96 03/20/21 23:00 87 12 113/69 97 03/20/21 22:45 86 16 105/70 98 03/20/21 22:30 90 16 109/74 03/20/21 22:15 95 H 16 112/74 97 03/20/21 22:00 97 H 14 118/74 94 03/20/21 21:45 94 H 17 132/83 94 03/20/21 21:42 95 H 152/98 03/20/21 21:31 113 H 17 152/96 89 03/20/21 21:15 103 H 19 115/76 100 03/20/21 21:00 89 145 H 16 115/76 94 03/20/21 20:45 93 H 17 125/74 93 03/20/21 20:30 94 H 16 133/86 91 03/20/21 20:22 98 H 133/86 91 03/20/21 20:15 94 H 16 119/75 92 03/20/21 20:00 96.0 F L 97 H 15 119/75 94 03/20/21 19:45 92 H 16 127/76 93 03/20/21 19:30 90 15 122/75 93 03/20/21 19:15 92 H 15 121/76 93 03/20/21 19:00 92 H 15 118/75 95 03/20/21 18:45 95 H 15 132/72 100 03/20/21 18:30 97 H 17 124/74 89 03/20/21 18:15 99 H 16 118/75 89 03/20/21 18:00 95 H 16 123/81 99 03/20/21 17:45 98 H 16 132/81 92 03/20/21 17:31 134 H 25 H 119/75 70 L 03/20/21 17:15 96 H 16 119/75 88 03/20/21 17:00 96 H 19 127/84 03/20/21 16:47 96 H 120/79 92 03/20/21 16:45 95 H 17 120/79 03/20/21 16:30 111 H 15 136/70 85 03/20/21 16:15 110 H 12 134/84 92 03/20/21 16:05 145 H 98 03/20/21 16:00 98.8 F 98 H 16 126/78 98 03/20/21 15:45 92 H 13 136/77 97 03/20/21 15:30 98 H 17 115/81 99 03/20/21 15:15 90 18 121/75 98 03/20/21 15:00 92 H 15 123/75 96 03/20/21 14:45 100 H 16 132/73 97 03/20/21 14:30 97 H 16 130/75 97 03/20/21 14:15 95 H 16 126/75 98 03/20/21 14:00 99 H 16 137/80 97 03/20/21 13:45 96 H 16 127/78 97 03/20/21 13:30 94 H 16 136/81 96 03/20/21 13:15 98 H 16 132/81 97 03/20/21 13:08 94 H 124/77 96 12/28/21 13:00 101 H 16 124/77 97 03/20/21 12:45 105 H 15 131/80 96 03/20/21 12:30 102 H 16 132/79 95 03/20/21 12:15 104 H 145 H 15 129/82 98 03/20/21 12:00 97.5 F L 108 H 16 125/84 96 03/20/21 11:45 103 H 15 124/72 97 03/20/21 11:30 104 H 16 127/81 95 03/20/21 11:15 106 H 15 134/80 95 03/20/21 11:00 106 H 16 132/78 93 03/20/21 10:45 109 H 15 132/83 94 03/20/21 10:30 107 H 16 134/88 95 - Physical Examination General: Other (Intubated, sedated, on the vent) Neck: Positive: neck supple Cardiac: Positive: Reg Rate and Rhythm Lungs: Positive: Decreased Breath Sounds Neuro: Positive: Weakness (Intubated, sedated, on the vent) Abdomen: Positive: Soft Skin: Positive: Clear Extremities: Present: edema (Trace) - Labs and Meds CBC 03/21/21 Range/Units 09:28 WBC 12.0 H (4.5-11.0) K/mm3 RBC 3.42 L (3.65-5.03) M/mm3 Hgb 6.8 L (10.1-14.3) gm/dl Hct 25.3 L (30.3-42.9) % Plt Count 650 H (140-440) K/mm3
[2021-03-21 10:18] LABS: Alanine Aminotransferase 697 units/L (7-56); Albumin 3.4 g/dL (3.9-5); BUN/Creatinine Ratio 46; Blood Urea Nitrogen 32 mg/dL (7-17); Calcium 8.8 mg/dL (8.4-10.2); Hemolysis Index 11
[2021-03-21] MEDS ORDERED: SODIUM CHLORIDE 0.9% 500 ML 500 ML IV SCH (10:39)
[2021-03-21] MEDS ORDERED: SODIUM POLYSTYRENE 15 GM/60 ML ORAL LIQD PO SCH (11:00)
--- NOTE | 2021-03-21 14:42 | Progress Note ---
Assessment and Plan 60 y/o female with acute on chronic respiratory failure, SVT and HTN likely all related to anxiety and stress 03/21/21: Echo given continued tachycardia despite adequate oxygenation. Can drop steroids to 40q8. 03/19/21: Continue sedation. Wean FiO2 for sats >88%. consider weaning steroid tomorrow. Follow up RUQ and trend LFT's 1. Wean Versed and place on Diprovan drip 2. Will give Fent 100 IV x1 now and order drip if needed for pain 3. Spoke with over the phone to get more history. Sounds like a panic attack not aborted by xanax therapy. Did check Tylenol level as patient has been in pain from fall 4. Elevated LFT's former drinker but confirms she has not been drinking. Ordered RUQ ultrasound and need to repeat LFT's tomorrow 5. Reviewed cards note, and they do not want to treat tachycardia or elevated bp, likely needs more sedation Guarded prognosis CCT 31 minutes. Subjective Date of service: 03/21/21 Principal diagnosis: Atrial fibrillation with RVR, respiratory failure Interval history: Had another episode of tachycardia with desats on sedation. Oxygen had to be increased. Objective Vital Signs - 12hr 03/21/21 03/21/21 03/21/21 02:45 03:00 03:15 Temperature Pulse Rate 96 H 92 H 94 H Pulse Rate [ From Monitor] Respiratory 15 15 15 Rate Blood Pressure 132/81 117/78 108/79 O2 Sat by Pulse 91 90 87 Oximetry 03/21/21 03/21/21 03/21/21 03:30 03:37 03:45 Temperature Pulse Rate 96 H 102 H 92 H Pulse Rate [ From Monitor] Respiratory 16 16 Rate Blood Pressure 126/82 117/82 O2 Sat by Pulse 87 97 Oximetry 03/21/21 03/21/21 03/21/21 03:47 04:00 04:15 Temperature 97.2 F L Pulse Rate 102 H 94 H 94 H Pulse Rate [ From Monitor] Respiratory 19 16 Rate Blood Pressure 117/82 125/82 118/79 O2 Sat by Pulse 92 92 91 Oximetry 03/21/21 03/21/21 03/21/21 04:30 04:45 05:00 Temperature Pulse Rate 98 H 95 H 116 H Pulse Rate [ 145 H From Monitor] Respiratory 16 14 17 Rate Blood Pressure 118/81 116/85 122/87 O2 Sat by Pulse 92 89 Oximetry 03/21/21 03/21/21 03/21/21 05:15 05:30 05:45 Temperature Pulse Rate 98 H 102 H 99 H Pulse Rate [ From Monitor] Respiratory 17 17 19 Rate Blood Pressure 113/67 116/75 118/80 O2 Sat by Pulse 91 90 Oximetry 03/21/21 03/21/21 03/21/21 06:00 06:15 06:30 Temperature Pulse Rate 97 H 102 H 99 H Pulse Rate [ From Monitor] Respiratory 16 16 20 Rate Blood Pressure 113/81 118/79 99/76 O2 Sat by Pulse 89 100 Oximetry 03/21/21 03/21/21 03/21/21 06:45 07:00 07:15 Temperature Pulse Rate 102 H 91 H 93 H Pulse Rate [ From Monitor] Respiratory 15 14 17 Rate Blood Pressure 118/79 106/75 114/77 O2 Sat by Pulse 100 100 100 Oximetry 03/21/21 03/21/21 03/21/21 07:30 07:45 08:00 Temperature 98.7 F Pulse Rate 89 88 89 Pulse Rate [ From Monitor] Respiratory 15 16 16 Rate Blood Pressure 114/77 116/81 115/79 O2 Sat by Pulse 100 100 Oximetry 03/21/21 03/21/21 03/21/21 08:15 08:30 08:45 Temperature Pulse Rate 89 88 86 Pulse Rate [ From Monitor] Respiratory 15 16 16 Rate Blood Pressure 109/79 110/80 116/78 O2 Sat by Pulse 100 100 Oximetry 03/21/21 03/21/21 03/21/21 09:00 09:15 09:30 Temperature Pulse Rate 87 86 105 H Pulse Rate [ From Monitor] Respiratory 16 16 16 Rate Blood Pressure 116/79 114/77 114/77 O2 Sat by Pulse 96 Oximetry 03/21/21 03/21/21 03/21/21 09:35 09:45 10:00 Temperature Pulse Rate 87 93 H 90 Pulse Rate [ From Monitor] Respiratory 16 16 Rate Blood Pressure 140/86 141/94 128/88 O2 Sat by Pulse 100 100 100 Oximetry 03/21/21 03/21/21 03/21/21 10:15 10:30 10:45 Temperature Pulse Rate 86 82 84 Pulse Rate [ From Monitor] Respiratory 16 16 15 Rate Blood Pressure 117/80 112/79 106/76 O2 Sat by Pulse 100 100 Oximetry 03/21/21 03/21/21 03/21/21 11:00 11:15 11:30 Temperature Pulse Rate 83 83 83 Pulse Rate [ From Monitor] Respiratory 16 16 16 Rate Blood Pressure 108/74 115/77 113/73 O2 Sat by Pulse 100 100 Oximetry 03/21/21 03/21/21 03/21/21 11:45 12:00 12:16 Temperature 98.1 F Pulse Rate 83 91 H 86 Pulse Rate [ From Monitor] Respiratory 16 15 24 Rate Blood Pressure 110/74 124/91 156/90 O2 Sat by Pulse 100 100 99 Oximetry 03/21/21 03/21/21 03/21/21 12:30 12:45 12:50 Temperature Pulse Rate 86 84 83 Pulse Rate [ From Monitor] Respiratory 14 18 Rate Blood Pressure 157/85 118/71 118/71 O2 Sat by Pulse 100 100 100 Oximetry 03/21/21 03/21/21 03/21/21 13:00 13:15 13:30 Temperature Pulse Rate 80 82 82 Pulse Rate [ From Monitor] Respiratory 17 16 16 Rate Blood Pressure 129/77 113/75 114/70 O2 Sat by Pulse 100 100 100 Oximetry CBC and BMP: 03/21/21 09:28 03/21/21 09:28 ABG, PT/INR, D-dimer: ABG ABG pH 7.348 pH Units (7.350-7.450) L 03/21/21 04:00 ABG pCO2 68.7 mm Hg 03/21/21 04:00 ABG pO2 56.3 mm Hg (80.0-90.0) L 03/21/21 04:00 ABG O2 Saturation 83.4 % (95.0-99.0) L 03/21/21 04:00 PT/INR, D-dimer PT 12.6 Sec. (12.2-14.9) 03/17/21 17:37 INR 0.85 (0.87-1.13) L 03/17/21 17:37 D-Dimer 947.92 ng/mlDDU (0-234) H 03/17/21 17:37 Abnormal lab findings: Abnormal Labs 03/17/21 03/17/21 03/17/21 17:36 17:36 17:37 WBC 13.8 H RBC 3.48 L Hgb 7.0 L Hct 26.2 L MCV 75 L MCH 20 L MCHC 27 L RDW 25.4 H Plt Count Seg Neuts % (Manual) Monocytes % (Manual) Nucleated RBC % 7.0 H Seg Neutrophils # Man 8.7 H Lymphocytes # (Manual) INR 0.85 L APTT 23.3 L D-Dimer 947.92 H ABG pH ABG pO2 ABG HCO3 ABG O2 Saturation ABG Base Excess ABG Hemoglobin Oxyhemoglobin Potassium Chloride 88.2 L Carbon Dioxide 38 H BUN Glucose 129 H POC Glucose Lactic Acid Magnesium AST 177 H ALT 251 H Alkaline Phosphatase Ammonia Troponin T 0.036 H Total Protein 5.9 L Albumin 3.8 L Triglycerides 173 H HDL Cholesterol 73 H Lipase Acetaminophen 03/17/21 03/17/21 03/17/21 18:15 18:40 18:40 WBC RBC Hgb Hct MCV MCH MCHC RDW Plt Count Seg Neuts % (Manual) Monocytes % (Manual) Nucleated RBC % Seg Neutrophils # Man Lymphocytes # (Manual) INR APTT D-Dimer ABG pH ABG pO2 94.4 H ABG HCO3 44.8 H ABG O2 Saturation ABG Base Excess 16.6 H ABG Hemoglobin Oxyhemoglobin Potassium Chloride Carbon Dioxide BUN Glucose POC Glucose Lactic Acid 4.00 H* Magnesium AST ALT Alkaline Phosphatase Ammonia 116.0 H Troponin T Total Protein Albumin Triglycerides HDL Cholesterol Lipase Acetaminophen 03/17/21 03/18/21 03/18/21 23:36 00:25 23:07 WBC RBC Hgb Hct MCV MCH MCHC RDW Plt Count Seg Neuts % (Manual) Monocytes % (Manual) Nucleated RBC % Seg Neutrophils # Man Lymphocytes # (Manual) INR APTT D-Dimer ABG pH ABG pO2 68.1 L ABG HCO3 40.2 H ABG O2 Saturation ABG Base Excess 14.4 H ABG Hemoglobin 6.5 L Oxyhemoglobin Potassium Chloride Carbon Dioxide BUN Glucose POC Glucose Lactic Acid 4.00 H* Magnesium AST ALT Alkaline Phosphatase Ammonia Troponin T Total Protein Albumin Triglycerides HDL Cholesterol Lipase Acetaminophen 5.0 L 03/19/21 03/19/21 03/19/21 00:50 03:25 04:59 WBC RBC 3.43 L Hgb 7.0 L Hct 25.6 L MCV 75 L MCH 20 L MCHC 27 L RDW 25.6 H Plt Count Seg Neuts % (Manual) 91.0 H Monocytes % (Manual) 9.0 H Nucleated RBC % 3.0 H Seg Neutrophils # Man 9.0 H Lymphocytes # (Manual) 0.0 L INR APTT D-Dimer ABG pH 7.531 H ABG pO2 49.6 L ABG HCO3 31.4 H ABG O2 Saturation 99.6 H ABG Base Excess 8.1 H ABG Hemoglobin 7.2 L Oxyhemoglobin Potassium Chloride Carbon Dioxide BUN Glucose POC Glucose 127 H Lactic Acid Magnesium AST ALT Alkaline Phosphatase Ammonia Troponin T Total Protein Albumin Triglycerides HDL Cholesterol Lipase Acetaminophen 03/19/21 03/19/21 03/19/21 04:59 10:37 12:00 WBC RBC Hgb Hct MCV MCH MCHC RDW Plt Count Seg Neuts % (Manual) Monocytes % (Manual) Nucleated RBC % Seg Neutrophils # Man Lymphocytes # (Manual) INR APTT D-Dimer ABG pH 7.494 H ABG pO2 107.3 H ABG HCO3 31.6 H ABG O2 Saturation ABG Base Excess 7.7 H ABG Hemoglobin 7.1 L Oxyhemoglobin Potassium Chloride 89.5 L Carbon Dioxide BUN Glucose 121 H POC Glucose Lactic Acid Magnesium AST 359 H ALT 1434 H Alkaline Phosphatase Ammonia Troponin T Total Protein 5.7 L Albumin 3.5 L Triglycerides HDL Cholesterol Lipase Acetaminophen 03/19/21 03/19/21 03/19/21 12:05 17:52 23:23 WBC RBC Hgb Hct MCV MCH MCHC RDW Plt Count Seg Neuts % (Manual) Monocytes % (Manual) Nucleated RBC % Seg Neutrophils # Man Lymphocytes # (Manual) INR APTT D-Dimer ABG pH ABG pO2 ABG HCO3 ABG O2 Saturation ABG Base Excess ABG Hemoglobin Oxyhemoglobin Potassium Chloride Carbon Dioxide BUN Glucose POC Glucose 122 H 114 H 187 H Lactic Acid Magnesium AST ALT Alkaline Phosphatase Ammonia Troponin T Total Protein Albumin Triglycerides HDL Cholesterol Lipase Acetaminophen 03/19/21 03/20/21 03/20/21 Unknown 03:50 03:57 WBC RBC Hgb Hct MCV MCH MCHC RDW Plt Count Seg Neuts % (Manual) Monocytes % (Manual) Nucleated RBC % Seg Neutrophils # Man Lymphocytes # (Manual) INR APTT D-Dimer ABG pH 7.477 H ABG pO2 67.9 L ABG HCO3 33.9 H ABG O2 Saturation ABG Base Excess 9.5 H ABG Hemoglobin 6.7 L Oxyhemoglobin Potassium Chloride Carbon Dioxide BUN Glucose POC Glucose 247 H Lactic Acid Magnesium AST ALT Alkaline Phosphatase Ammonia Troponin T Total Protein Albumin Triglycerides HDL Cholesterol Lipase 12 L Acetaminophen 03/20/21 03/20/21 03/20/21 04:18 04:18 10:16 WBC RBC 3.48 L Hgb 7.0 L Hct 25.3 L MCV 73 L MCH 20 L MCHC 28 L RDW 25.2 H Plt Count 541 H Seg Neuts % (Manual) Monocytes % (Manual) Nucleated RBC % Seg Neutrophils # Man Lymphocytes # (Manual) INR APTT D-Dimer ABG pH ABG pO2 63.3 L ABG HCO3 34.0 H ABG O2 Saturation 90.0 L ABG Base Excess 7.9 H ABG Hemoglobin 10.5 L Oxyhemoglobin 88.1 L Potassium Chloride 91.6 L Carbon Dioxide BUN 22 H Glucose 245 H POC Glucose Lactic Acid Magnesium AST 148 H ALT 1096 H Alkaline Phosphatase 133 H Ammonia Troponin T Total Protein Albumin 3.5 L Triglycerides HDL Cholesterol Lipase Acetaminophen 03/20/21 03/20/21 03/21/21 12:05 17:26 00:18 WBC RBC Hgb Hct MCV MCH MCHC RDW Plt Count Seg Neuts % (Manual) Monocytes % (Manual) Nucleated RBC % Seg Neutrophils # Man Lymphocytes # (Manual) INR APTT D-Dimer ABG pH ABG pO2 ABG HCO3 ABG O2 Saturation ABG Base Excess ABG Hemoglobin Oxyhemoglobin Potassium Chloride Carbon Dioxide BUN Glucose POC Glucose 226 H 215 H 323 H Lactic Acid Magnesium AST ALT Alkaline Phosphatase Ammonia Troponin T Total Protein Albumin Triglycerides HDL Cholesterol Lipase Acetaminophen 03/21/21 03/21/21 03/21/21 04:00 05:05 09:28 WBC 12.0 H RBC 3.42 L Hgb 6.8 L Hct 25.3 L MCV 74 L MCH 20 L MCHC 27 L RDW 25.1 H Plt Count 650 H Seg Neuts % (Manual) Monocytes % (Manual) Nucleated RBC % Seg Neutrophils # Man Lymphocytes # (Manual) INR APTT D-Dimer ABG pH 7.348 L ABG pO2 56.3 L ABG HCO3 36.9 H ABG O2 Saturation 83.4 L ABG Base Excess 10.0 H ABG Hemoglobin 7.0 L Oxyhemoglobin 81.7 L Potassium Chloride Carbon Dioxide BUN Glucose POC Glucose 311 H Lactic Acid Magnesium AST ALT Alkaline Phosphatase Ammonia Troponin T Total Protein Albumin Triglycerides HDL Cholesterol Lipase Acetaminophen 03/21/21 03/21/21 09:28 12:31 WBC RBC Hgb Hct MCV MCH MCHC RDW Plt Count Seg Neuts % (Manual) Monocytes % (Manual) Nucleated RBC % Seg Neutrophils # Man Lymphocytes # (Manual) INR APTT D-Dimer ABG pH ABG pO2 ABG HCO3 ABG O2 Saturation ABG Base Excess ABG Hemoglobin Oxyhemoglobin Potassium 5.1 H D Chloride 94.4 L Carbon Dioxide 33 H BUN 32 H Glucose 319 H POC Glucose 295 H Lactic Acid Magnesium 2.40 H AST ALT 697 H Alkaline Phosphatase 134 H Ammonia Troponin T Total Protein 5.8 L Albumin 3.4 L Triglycerides HDL Cholesterol Lipase Acetaminophen
--- NOTE | 2021-03-21 14:47 | Progress Note ---
<VINNIEDARLENEPorfirio - Last Filed: 03/21/21 15:10> Assessment and Plan Assessment and plan: This is a 50-year-old female with COPD with oxygen dependence, DM, severe anxiety, GERD, HLD, HTN and PAGE admitted with SVT and hypertensive urgency. Neuro: Hepatic/metabolic encephalopathy, h/o severe anxiety, depression -Admit ammonia 116, 03/09 ammonia 26 -Sedated with propofol and fentanyl gtt -RASS goal 0 to -1 -Bilateral wrist restraints in place for safety -Avoid delirium -Maintain sleep-wake cycle -SAT when appropriate -Resume home cymbalta and buspar when appropriate Cardio: Hypertensive emergency, s/p A. fib with RVR, s/p SVT, h/o HTN, HLD -Cardiology consulted, appreciate recommendations -IV metoprolol every 6 changed to home metoprolol dose but decreased to BID -Resume home statin -Blood pressure monitoring per protocol -Echocardiogram 10/2020 showed EF of 50 to 55%, mild diastolic dysfunction, trace to mild tricuspid regurgitation, mild pulmonary hypertension, RVSP 45 mmHg -repeat ECHO Resp : Acute on chronic respiratory failure, h/o COPD and PAGE -CCM consulted, appreciate recommendations -CTA chest shows no CT evidence of pulmonary embolism, small right and trace left pleural effusion, upper lobe predominant emphysema -Intubated on 03/17 with 7.00 ETT at 20 at the lips in the ED -A.m. vent settings: Assist control tidal volume 450, rate 16, PEEP 6, 45% FiO2 -See RT noted for titration -will reasses for extubtion tomorrow -A.m. ABG and CXR noted -VAP bundle -SPO2 monitoring -Methylprednisone 60 mg every 6 -weaning today GI: Transaminitis, h/o chronic constipation -NTR consulted, appreciate recommendations -RUQ US shows right hydroureteronephrosis and possible gallbladder sludge or ga llstones -Renal ultrasound shows mild right-sided hydronephrosis with parenchymal thinning and trace perinephric fluid. -Trend LFTs -PPI -BR: senakot S -24 hours +565 mL -MIVF : Hypochlormia, mild right hydroureteronephrosis, hyperkalemia -Trend BMP -FWF with TF -Strict I & Os -[place] -Renal ultrasound shows mild right-sided hydronephrosis with parenchymal thinning and trace perinephric fluid. -Kaexlyte Endo: NAD -Avoid hypoglycemia -SSI -Accucheck q 6hrs -Lantus Heme: Leukocytosis, h/o Microcytic anemia -Trend CBC -Transfuse for hbg <7 -watch h/h as it was 6.8 today -SCDs to BLE while in bed -Lovenox subq ID: Gram positive cocci in tracheal aspirate -02/25 tracheal aspirate with few gram-positive cocci -Levaquin (03/18-) -Trend WBC and fever curve The high probability of a clinically significant, sudden or life threatening deterioration of the [pulm/cv] system(s) required my full and direct attention, intervention and personal management. The aggregate critical care time was [60] minutes. This time is in addition to time spent performing reported procedures but includes the following: [x] Data Review and interpretation [x] Patient assessment and monitoring of vital signs [x] Documentation [x] Medication orders and management Disposition Plan: icu Total Time Spent with Patient (Minutes): 60 History Interval history: This is a 60-year-old female with COPD with oxygen dependence currently with palliative care, DM, former nicotine abuse, severe anxiety, GERD, HLD, HTN and PAGE presented to emergency department on 03/17 via EMS with complaints of shortness of breath. On arrival of EMS patient was found to be in SVT with a heart rate of about 200 and blood pressure to be quite elevated with systolic in 200s. She was given 6 mg of adenosine without significant changes subsequently given 12 mg of adenosine with improvement of her heart rate. Upon arrival to the emergency department patient was found to be in atrial fibrillation with RVR and dyspneic. Work-up in the emergency department revealed leukocytosis, lactic acidosis, transaminitis, hypoalbuminemia and a troponin leak. CXR, CT a chest and CT head were unremarkable. Patient was admitted to the hospitalist service with consults to [facility] and cardiology for further work-up of acute on chronic respiratory failure, SVT and hypertensive urgency. 03/18/2021: Patient is intubated and on vent support, Patient is in sinus tachycardia 03/19: COVID-19 PCR negative, remains on ventilatory support, Versed drip changed to propofol. No acute events reported overnight. Tracheal aspirate with few gram-positive Cocci. This afternoon, patient went in to the 150s, giving 500 mL NS bolus and fentanyl push to see if it pain related. If persists then will order prn Ativan per Dr. Gage recommendation. 03/20: Restarted on home metoprolol and abdominal ultrasound showed right hydr onephrosis. Abd US shows right hydroureteronephrosis and will obtain a dedicated renal US. She seems to more comfortable on propofol and fentanyl 03/21: Patient's FiO2 had to be decreased overnight due to hypoxia and tachycardia. Hyperkalemia noted and given Kayexalate. 1 unit PRBC for hemoglob in 6.8. [facility] plans to extubate tomorrow. Increase in Lantus. Hospitalist Physical - Constitutional Vitals: Temp Pulse Resp BP Pulse Ox 98.1 F 82 16 114/70 100 03/21/21 12:00 03/21/21 13:30 03/21/21 13:30 03/21/21 13:30 03/21/21 13:30 General appearance: Present: no acute distress, other (sedated) - EENT Eyes: Present: PERRL, EOM intact ENT: clear oral mucosa, dentition normal - Neck Neck: Present: normal ROM - Respiratory Respiratory effort: normal Respiratory: bilateral: diminished - Cardiovascular Rhythm: regular Heart Sounds: Present: S1 & S2. Absent: systolic murmur, diastolic murmur - Extremities Extremities: no ischemia, pulses intact, pulses symmetrical, No edema, normal temperature, normal color Peripheral Pulses: within normal limits - Abdominal General gastrointestinal: soft, non-tender, non-distended, normal bowel sounds - Integumentary Integumentary: Present: warm, dry - Psychiatric Psychiatric: other (sedated) - Neurologic Neurologic: CNII-XII intact - Allied Health Allied health notes reviewed: nursing, RT, social work HEART Score - HEART Score Troponin: Troponin T 0.015 ng/mL (0.00-0.029) 03/19/21 12:00 Results - Labs CBC & Chem 7: 03/21/21 09:28 03/21/21 09:28 Labs: Laboratory Last Values WBC 12.0 K/mm3 (4.5-11.0) H 03/21/21 09:28 RBC 3.42 M/mm3 (3.65-5.03) L 03/21/21 09:28 Hgb 6.8 gm/dl (10.1-14.3) L 03/21/21 09:28 Hct 25.3 % (30.3-42.9) L 03/21/21 09:28 MCV 74 fl (79-97) L 03/21/21 09:28 MCH 20 pg (28-32) L 03/21/21 09:28 MCHC 27 % (30-34) L 03/21/21 09:28 RDW 25.1 % (13.2-15.2) H 03/21/21 09:28 Plt Count 650 K/mm3 (140-440) H 03/21/21 09:28 Add Manual Diff Complete 03/19/21 04:59 Total Counted 100 03/19/21 04:59 Seg Neuts % (Manual) 91.0 % (40.0-70.0) H 03/19/21 04:59 Band Neutrophils % 9.0 % 03/19/21 04:59 Lymphocytes % (Manual) 31.0 % (13.4-35.0) 03/19/21 04:59 Reactive Lymphs % (Man) 5.0 % 03/19/21 04:59 Monocytes % (Manual) 9.0 % (0.0-7.3) H 03/19/21 04:59 Metamyelocytes % 1.0 % 03/19/21 04:59 Myelocytes % 3.0 % 03/19/21 04:59 Promyelocytes % 3.0 % 03/19/21 04:59 Nucleated RBC % 3.0 % (0.0-0.9) H 03/19/21 04:59 Seg Neutrophils # Man 9.0 K/mm3 (1.8-7.7) H 03/19/21 04:59 Band Neutrophils # 0.9 K/mm3 03/19/21 04:59 Lymphocytes # (Manual) 0.0 K/mm3 (1.2-5.4) L 03/19/21 04:59 Abs React Lymphs (Man) 0.0 K/mm3 03/19/21 04:59 Monocytes # (Manual) 0.0 K/mm3 (0.0-0.8) 03/19/21 04:59 Eosinophils # (Manual) 0.0 K/mm3 (0.0-0.4) 03/19/21 04:59 Basophils # (Manual) 0.0 K/mm3 (0.0-0.1) 03/19/21 04:59 Metamyelocytes # 0.0 K/mm3 03/19/21 04:59 Myelocytes # 0.0 K/mm3 03/19/21 04:59 Promyelocytes # 0.0 K/mm3 03/19/21 04:59 Blast Cells # 0.0 K/mm3 03/19/21 04:59 WBC Morphology Not Reportable 03/19/21 04:59 Hypersegmented Neuts Not Reportable 03/19/21 04:59 Hyposegmented Neuts Not Reportable 03/19/21 04:59 Hypogranular Neuts Not Reportable 03/19/21 04:59 Smudge Cells Not Reportable 03/19/21 04:59 Toxic Granulation Not Reportable 03/19/21 04:59 Toxic Vacuolation Not Reportable 03/19/21 04:59 Dohle Bodies Not Reportable 03/19/21 04:59 Pelger-Huet Anomaly Not Reportable 03/19/21 04:59 Florentino Rods Not Reportable 03/19/21 04:59 Platelet Estimate Consistent w auto 03/19/21 04:59 Clumped Platelets Not Reportable 03/19/21 04:59 Plt Clumps, EDTA Not Reportable 03/19/21 04:59 Large Platelets Few 03/19/21 04:59 Giant Platelets Not Reportable 03/19/21 04:59 Platelet Satelliting Not Reportable 03/19/21 04:59 Plt Morphology Comment Not Reportable 03/19/21 04:59 RBC Morphology Not Reportable 03/19/21 04:59 Dimorphic RBCs Not Reportable 03/19/21 04:59 Polychromasia Few 03/19/21 04:59 Hypochromasia 1+ 03/19/21 04:59 Poikilocytosis Not Reportable 03/19/21 04:59 Anisocytosis 1+ 03/19/21 04:59 Microcytosis 2+ 03/19/21 04:59 Macrocytosis Not Reportable 03/19/21 04:59 Spherocytes Not Reportable 03/19/21 04:59 Pappenheimer Bodies Not Reportable 03/19/21 04:59 Sickle Cells Not Reportable 03/19/21 04:59 Target Cells Not Reportable 03/19/21 04:59 Tear Drop Cells Not Reportable 03/19/21 04:59 Ovalocytes 1+ 03/19/21 04:59 Stomatocytes 1+ 03/17/21 17:36 Helmet Cells Not Reportable 03/19/21 04:59 [place] Bodies Not Reportable 03/19/21 04:59 [place] Rings Not Reportable 03/19/21 04:59 [place] Cells Not Reportable 03/19/21 04:59 Bite Cells Not Reportable 03/19/21 04:59 Crenated Cell Not Reportable 03/19/21 04:59 Elliptocytes Not Reportable 03/19/21 04:59 Acanthocytes (Spur) Not Reportable 03/19/21 04:59 Rouleaux Not Reportable 03/19/21 04:59 Hemoglobin C Crystals Not Reportable 03/19/21 04:59 Schistocytes Not Reportable 03/19/21 04:59 Malaria parasites Not Reportable 03/19/21 04:59 Maykel Bodies Not Reportable 03/19/21 04:59 Hem Pathologist Commnt No 03/19/21 04:59 PT 12.6 Sec. (12.2-14.9) 03/17/21 17:37 INR 0.85 (0.87-1.13) L 03/17/21 17:37 APTT 23.3 Sec. (24.2-36.6) L 03/17/21 17:37 D-Dimer 947.92 ng/mlDDU (0-234) H 03/17/21 17:37 ABG pH 7.348 pH Units (7.350-7.450) L 03/21/21 04:00 ABG pCO2 68.7 mm Hg 03/21/21 04:00 ABG pO2 56.3 mm Hg (80.0-90.0) L 03/21/21 04:00 ABG HCO3 36.9 mmol/L (20.0-26.0) H 03/21/21 04:00 ABG O2 Saturation 83.4 % (95.0-99.0) L 03/21/21 04:00 ABG O2 Content 8.1 (0.0-44) 03/21/21 04:00 ABG Base Excess 10.0 mmol/L (-2.0-3.0) H 03/21/21 04:00 ABG Hemoglobin 7.0 gm/dl (12.0-16.0) L 03/21/21 04:00 ABG Carboxyhemoglobin 1.8 % (0.0-5.0) 03/21/21 04:00 ABG Methemoglobin 0.4 % (0.0-1.5) 03/21/21 04:00 Oxyhemoglobin 81.7 % (95.0-99.0) L 03/21/21 04:00 FiO2 30 % 03/21/21 04:00 Sodium 138 mmol/L (137-145) 03/21/21 09:28 Potassium 5.1 mmol/L (3.6-5.0) H D 03/21/21 09:28 Chloride 94.4 mmol/L (98-107) L 03/21/21 09:28 Carbon Dioxide 33 mmol/L (22-30) H 03/21/21 09:28 Anion Gap 16 mmol/L 03/21/21 09:28 BUN 32 mg/dL (7-17) H 03/21/21 09:28 Creatinine 0.7 mg/dL (0.6-1.2) 03/21/21 09:28 Estimated GFR > 60 ml/min 03/21/21 09:28 BUN/Creatinine Ratio 46 % 03/21/21 09:28 Glucose 319 mg/dL (65-100) H 03/21/21 09:28 POC Glucose 295 mg/dL (70-105) H 03/21/21 12:31 Lactic Acid 4.00 mmol/L (0.7-2.0) H* 03/17/21 23:36 Calcium 8.8 mg/dL (8.4-10.2) 03/21/21 09:28 Phosphorus 3.50 mg/dL (2.5-4.5) 03/21/21 09:28 Magnesium 2.40 mg/dL (1.7-2.3) H 03/21/21 09:28 Total Bilirubin 0.20 mg/dL (0.1-1.2) 03/21/21 09:28 Direct Bilirubin < 0.2 mg/dL (0-0.2) 03/19/21 12:00 Indirect Bilirubin 0.1 mg/dL 03/19/21 12:00 AST 32 units/L (5-40) 03/21/21 09:28 ALT 697 units/L (7-56) H 03/21/21 09:28 Alkaline Phosphatase 134 units/L (35-129) H 03/21/21 09:28 Ammonia 26.0 umol/L (25-60) 03/19/21 12:00 Troponin T 0.015 ng/mL (0.00-0.029) 03/19/21 12:00 NT-Pro-B Natriuret Pep 576.0 pg/mL (0-900) 03/17/21 17:36 Total Protein 5.8 g/dL (6.3-8.2) L 03/21/21 09:28 Albumin 3.4 g/dL (3.9-5) L 03/21/21 09:28 Albumin/Globulin Ratio 1.4 % 03/21/21 09:28 Triglycerides 173 mg/dL (2-149) H 03/17/21 17:36 Cholesterol 191 mg/dL (50-199) 03/17/21 17:36 LDL Cholesterol Direct 80 mg/dL (50-130) 03/17/21 17:36 HDL Cholesterol 73 mg/dL (40-59) H 03/17/21 17:36 Cholesterol/HDL Ratio 2.61 % 03/17/21 17:36 Amylase 78 units/L (27-131) 03/19/21 Unknown Lipase 12 units/L (13-60) L 03/19/21 Unknown TSH 3.510 mlU/mL (0.270-4.200) 03/17/21 22:57 Urine Color Mayuri (Yellow) 03/17/21 19:42 Urine Turbidity Slightly-cloudy (Clear) 03/17/21 19:42 Urine pH 7.0 (5.0-7.0) 03/17/21 19:42 Ur Specific [place] 1.015 (1.003-1.030) 03/17/21 19:42 Urine Protein 100 mg/dl mg/dL (Negative) 03/17/21 19:42 Urine Glucose (UA) Neg mg/dL (Negative) 03/17/21 19:42 Urine Ketones 20 mg/dL (Negative) 03/17/21 19:42 Urine Blood Sm (Negative) 03/17/21 19:42 Urine Nitrite Neg (Negative) 03/17/21 19:42 Urine Bilirubin Neg (Negative) 03/17/21 19:42 Urine Urobilinogen 2.0 mg/dL (<2.0) 03/17/21 19:42 Ur Leukocyte Esterase Neg (Negative) 03/17/21 19:42 Urine WBC (Auto) 4.0 /HPF (0.0-6.0) 03/17/21 19:42 Urine RBC (Auto) 6.0 /HPF (0.0-6.0) 03/17/21 19:42 U Epithel Cells (Auto) 5.0 /HPF (0-13.0) 03/17/21 19:42 Urine Bacteria (Auto) 1+ /HPF (Negative) 03/17/21 19:42 Urine Mucus 1+ /HPF 03/17/21 19:42 Urine Yeast (Budding) Few /HPF 03/17/21 19:42 Acetaminophen 5.0 ug/mL (10.0-30.0) L 03/18/21 23:07 Coronavirus (PCR) Negative (Negative) 03/19/21 Unknown Blood Type A POSITIVE 03/17/21 18:40 Antibody Screen Negative 03/17/21 18:40 Microbiology: Microbiology 03/17/21 18:10 Tracheal Aspirate Sputum Culture - Final [place]/IV: Voiding Method Indwelling Catheter Active Medications - Current Medications Current Medications: Generic Name Dose Route Start Last Admin Trade Name Freq PRN Reason Stop Dose Admin Acetaminophen 650 mg 03/18/21 00:05 Acetaminophen 325 Mg Tab PO Q6H PRN Pain MILD(1-3)/Fever >100.5/TOVAR Albuterol 2.5 mg 03/18/21 12:00 03/19/21 03:28 Albuterol 2.5 Mg/3 Ml Nebu IH 2.5 mg PRN PRN Administration Wheezing Lipase/Protease/Amylase 1 each 03/19/21 18:16 Lipase 10,500/Protease 25,000/Amylase 43,750 (Units) Dr Newman FEEDTUBE PRN PRN For Clogged Feeding Tube Atorvastatin Calcium 10 mg 03/19/21 22:00 03/20/21 21:42 Atorvastatin 10 Mg Tab PO 10 mg QHS BUTCH Administration Dextrose 0 ml 03/17/21 23:58 Dextrose 50% In Water (25gm) 50 Ml Syringe IV Q30MIN PRN Hypoglycemia Protocol Famotidine 20 mg 03/20/21 22:00 03/21/21 09:35 Famotidine 20 Mg Tab FEEDTUBE 20 mg BID BUTCH Administration Fentanyl 50 mcg 03/18/21 20:38 03/19/21 16:30 Fentanyl 100 Mcg/2 Ml Inj IV 50 mcg Q10MIN PRN Administration ANALGESIA Heparin Sodium (Porcine) 5,000 unit 03/18/21 06:00 03/21/21 13:05 Heparin 5,000 Unit/1 Ml Vial SUB-Q 5,000 unit Q8HR BUTCH Administration Hydrophilic Ointment 1 applic 03/17/21 17:35 Lip Therapy Vaseline TP Q2HR PRN Dry Lips Propofol 1,000 mg in 100 mls @ 4.5 mls/hr 03/18/21 21:00 03/21/21 06:13 Diprivan 10 Mg/Ml IV 15 mcg/kg/min TITR BUTCH 6.75 mls/hr Administration Protocol 10 MCG/KG/MIN Fentanyl Citrate 2,000 mcg in 100 mls @ 3.75 mls/hr 03/18/21 21:00 03/21/21 10:00 Fentanyl Drip Premix IV 1 mcg/kg/hr TITR BUTCH 3.75 mls/hr Administration Protocol 1 MCG/KG/HR Sodium Chloride 500 mls @ 0 mls/hr 03/21/21 10:39 Nacl 0.9% 500 Ml IV 03/21/21 23:59 ONCE BUTCH As Directed Dexmedetomidine HCl 400 mcg/ 104 mls @ 4.306 mls/hr 03/21/21 13:00 03/21/21 14:04 Sodium Chloride IV 0.2 mcg/kg/hr TITRATE BUTCH 4.306 mls/hr Administration Protocol 0.2 MCG/KG/HR Insulin Glargine 15 units 03/21/21 22:00 Insulin Glargine 100 Units/Ml SUB-Q QHS REPLACED BY [facility] Insulin Human Lispro 0 unit 03/19/21 12:00 03/21/21 12:50 Insulin Lispro 100 Unit/Ml SUB-Q 4 unit Q6HR REPLACED BY [facility] Administration Protocol Magnesium Hydroxide 30 ml 03/18/21 00:05 Magnesium Hydroxide (Mom) Oral Liqd Udc PO Q4H PRN Constipation Methylprednisolone Sodium Succinate 60 mg 03/19/21 00:00 03/21/21 12:49 Methylprednisolone Sod Succinate 125 Mg/2 Ml Inj IV 60 mg Q6H BUTCH Administration Metoprolol Tartrate 25 mg 03/20/21 22:00 03/21/21 09:35 Metoprolol Tartrate 25 Mg Tab PO 25 mg BID BUTCH Administration Morphine Sulfate 2 mg 03/18/21 00:05 Morphine 2 Mg/1 Ml Inj IV Q4H PRN Pain, Moderate (4-6) Morphine Sulfate 4 mg 03/18/21 00:05 Morphine 4 Mg/1 Ml Inj IV Q4H PRN Pain , Severe (7-10) Multi-Ingred Cream/Lotion/Oil/Oint 1 applic 03/17/21 17:35 Mineral Oil/Petrolatum, White Ophth Oint 3.5 Gm OU Q4HR PRN Dry Eye(s) Senna/Docusate Sodium 1 tab 03/17/21 22:00 03/21/21 09:35 Sennosides/Docusate Sodium 8.6/50 Mg Tab FEEDTUBE 1 tab BID BUTCH Administration Simple Syrup 15 ml 03/19/21 18:16 Simple Syrup 15 Ml FEEDTUBE PRN PRN Hypoglycemia Simple Syrup 30 ml 03/19/21 18:16 Simple Syrup 15 Ml FEEDTUBE PRN PRN Hypoglycemia Sodium Bicarbonate 325 mg 03/19/21 18:16 Sodium Bicarbonate 325 Mg Tab FEEDTUBE PRN PRN For Clogged Feeding Tube Sodium Chloride 10 ml 03/18/21 10:00 03/21/21 09:36 Sodium Chloride 0.9% 10 Ml Flush Syringe IV 10 ml BID BUTCH Administration Sodium Chloride 10 ml 03/17/21 23:58 Sodium Chloride 0.9% 10 Ml Flush Syringe IV PRN PRN LINE FLUSH Sodium Polystyrene Sulfonate 30 gm 03/21/21 11:00 03/21/21 12:49 Sodium Polystyrene 15 Gm/60 Ml Oral Liqd PO 03/21/21 15:00 30 gm ONCE BUTCH Administration Nutrition/Malnutrition Assess - Dietary Evaluation Nutrition/Malnutrition Findings: Nutrition Notes Start: 03/18/21 09:46 Freq: Status: Active Protocol: Document 03/21/21 10:45 PAM (Rec: 03/21/21 11:07 PAM [id number]) Nutrition Notes Initial or Follow up Brief Note Other Pertinent Diagnosis R-Hydroureteronephrosis Current Diet TF-Promote @ 70 ml/hr (since D 03/19). Labs/Tests 03/21: K 5.1, Cl 94.4, CO2 33, BUN 32, Glu 319, Mg 2.4, ALT 697, AlkPhos 134, Tpro 5.8, Alb 3.4. Pertinent Medications 03/21: Insulin, Propofol 1000 mg in 100 ml @ 4.5 ml/hr (119 Kcal.), others nutritionally unremarkable. Height 5 ft 6 in Weight 82.8 kg [place] Body Weight (kg) 59.09 BMI 29.5 Weight change and time frame No body weight change reported . Weight Status Overweight Subjective/Other Information RD consult for TF tolerance. TF continues as prescribed. Mechanical ventilation continues. Nutrition Intervention Nutrition Support: Continue Promote @ 70 ml/hr. Flush: 50 ml water Q 4 hr. Goal #1 Provide at least 75% of energy /protein needs through Enteral Feeding during LOS. Follow-Up By: 03/23/21 Additional Comments Continue monitoring TF tolerance, and BM. <LISSET VIDES O - Last Filed: 03/21/21 20:11> Assessment and Plan Assessment and plan: I saw and evaluated the patient. I agree with the findings and the plan of care as documented in the Nurse Practitioner's~note, with the following corrections and additions. Patient with acute respiratory failure, encephalopathy. Hospitalist Physical - Constitutional Vitals: Temp Pulse Resp BP Pulse Ox 98.0 F 84 16 110/68 98 03/21/21 16:00 03/21/21 19:00 03/21/21 19:00 03/21/21 19:00 03/21/21 19:00 HEART Score - HEART Score Troponin: Troponin T 0.015 ng/mL (0.00-0.029) 03/19/21 12:00 Results - Labs CBC & Chem 7: 03/21/21 09:28 03/21/21 09:28 Labs: Laboratory Last Values WBC 12.0 K/mm3 (4.5-11.0) H 03/21/21 09:28 RBC 3.42 M/mm3 (3.65-5.03) L 03/21/21 09:28 Hgb 6.8 gm/dl (10.1-14.3) L 03/21/21 09:28 Hct 25.3 % (30.3-42.9) L 03/21/21 09:28 MCV 74 fl (79-97) L 03/21/21 09:28 MCH 20 pg (28-32) L 03/21/21 09:28 MCHC 27 % (30-34) L 03/21/21 09:28 RDW 25.1 % (13.2-15.2) H 03/21/21 09:28 Plt Count 650 K/mm3 (140-440) H 03/21/21 09:28 Add Manual Diff Complete 03/19/21 04:59 Total Counted 100 03/19/21 04:59 Seg Neuts % (Manual) 91.0 % (40.0-70.0) H 03/19/21 04:59 Band Neutrophils % 9.0 % 03/19/21 04:59 Lymphocytes % (Manual) 31.0 % (13.4-35.0) 03/19/21 04:59 Reactive Lymphs % (Man) 5.0 % 03/19/21 04:59 Monocytes % (Manual) 9.0 % (0.0-7.3) H 03/19/21 04:59 Metamyelocytes % 1.0 % 03/19/21 04:59 Myelocytes % 3.0 % 03/19/21 04:59 Promyelocytes % 3.0 % 03/19/21 04:59 Nucleated RBC % 3.0 % (0.0-0.9) H 03/19/21 04:59 Seg Neutrophils # Man 9.0 K/mm3 (1.8-7.7) H 03/19/21 04:59 Band Neutrophils # 0.9 K/mm3 03/19/21 04:59 Lymphocytes # (Manual) 0.0 K/mm3 (1.2-5.4) L 03/19/21 04:59 Abs React Lymphs (Man) 0.0 K/mm3 03/19/21 04:59 Monocytes # (Manual) 0.0 K/mm3 (0.0-0.8) 03/19/21 04:59 Eosinophils # (Manual) 0.0 K/mm3 (0.0-0.4) 03/19/21 04:59 Basophils # (Manual) 0.0 K/mm3 (0.0-0.1) 03/19/21 04:59 Metamyelocytes # 0.0 K/mm3 03/19/21 04:59 Myelocytes # 0.0 K/mm3 03/19/21 04:59 Promyelocytes # 0.0 K/mm3 03/19/21 04:59 Blast Cells # 0.0 K/mm3 03/19/21 04:59 WBC Morphology Not Reportable 03/19/21 04:59 Hypersegmented Neuts Not Reportable 03/19/21 04:59 Hyposegmented Neuts Not Reportable 03/19/21 04:59 Hypogranular Neuts Not Reportable 03/19/21 04:59 Smudge Cells Not Reportable 03/19/21 04:59 Toxic Granulation Not Reportable 03/19/21 04:59 Toxic Vacuolation Not Reportable 03/19/21 04:59 Dohle Bodies Not Reportable 03/19/21 04:59 Pelger-[place]uet Anomaly Not Reportable 03/19/21 04:59 Florentino Rods Not Reportable 03/19/21 04:59 Platelet Estimate Consistent w auto 03/19/21 04:59 Clumped Platelets Not Reportable 03/19/21 04:59 Plt Clumps, EDTA Not Reportable 03/19/21 04:59 Large Platelets Few 03/19/21 04:59 Giant Platelets Not Reportable 03/19/21 04:59 Platelet Satelliting Not Reportable 03/19/21 04:59 Plt Morphology Comment Not Reportable 03/19/21 04:59 RBC Morphology Not Reportable 03/19/21 04:59 Dimorphic RBCs Not Reportable 03/19/21 04:59 Polychromasia Few 03/19/21 04:59 Hypochromasia 1+ 03/19/21 04:59 Poikilocytosis Not Reportable 03/19/21 04:59 Anisocytosis 1+ 03/19/21 04:59 Microcytosis 2+ 03/19/21 04:59 Macrocytosis Not Reportable 03/19/21 04:59 Spherocytes Not Reportable 03/19/21 04:59 Pappenheimer Bodies Not Reportable 03/19/21 04:59 Sickle Cells Not Reportable 03/19/21 04:59 Target Cells Not Reportable 03/19/21 04:59 Tear Drop Cells Not Reportable 03/19/21 04:59 Ovalocytes 1+ 03/19/21 04:59 Stomatocytes 1+ 03/17/21 17:36 Helmet Cells Not Reportable 03/19/21 04:59 [place] Bodies Not Reportable 03/19/21 04:59 [place] Rings Not Reportable 03/19/21 04:59 [place] Cells Not Reportable 03/19/21 04:59 Bite Cells Not Reportable 03/19/21 04:59 Crenated Cell Not Reportable 03/19/21 04:59 Elliptocytes Not Reportable 03/19/21 04:59 Acanthocytes (Spur) Not Reportable 03/19/21 04:59 Rouleaux Not Reportable 03/19/21 04:59 Hemoglobin C Crystals Not Reportable 03/19/21 04:59 Schistocytes Not Reportable 03/19/21 04:59 Malaria parasites Not Reportable 03/19/21 04:59 [place] Bodies Not Reportable 03/19/21 04:59 Hem Pathologist Commnt No 03/19/21 04:59 PT 12.6 Sec. (12.2-14.9) 03/17/21 17:37 INR 0.85 (0.87-1.13) L 03/17/21 17:37 APTT 23.3 Sec. (24.2-36.6) L 03/17/21 17:37 D-Dimer 947.92 ng/mlDDU (0-234) H 03/17/21 17:37 ABG pH 7.348 pH Units (7.350-7.450) L 03/21/21 04:00 ABG pCO2 68.7 mm Hg 03/21/21 04:00 ABG pO2 56.3 mm Hg (80.0-90.0) L 03/21/21 04:00 ABG HCO3 36.9 mmol/L (20.0-26.0) H 03/21/21 04:00 ABG O2 Saturation 83.4 % (95.0-99.0) L 03/21/21 04:00 ABG O2 Content 8.1 (0.0-44) 03/21/21 04:00 ABG Base Excess 10.0 mmol/L (-2.0-3.0) H 03/21/21 04:00 ABG Hemoglobin 7.0 gm/dl (12.0-16.0) L 03/21/21 04:00 ABG Carboxyhemoglobin 1.8 % (0.0-5.0) 03/21/21 04:00 ABG Methemoglobin 0.4 % (0.0-1.5) 03/21/21 04:00 Oxyhemoglobin 81.7 % (95.0-99.0) L 03/21/21 04:00 FiO2 30 % 03/21/21 04:00 Sodium 138 mmol/L (137-145) 03/21/21 09:28 Potassium 5.1 mmol/L (3.6-5.0) H D 03/21/21 09:28 Chloride 94.4 mmol/L (98-107) L 03/21/21 09:28 Carbon Dioxide 33 mmol/L (22-30) H 03/21/21 09:28 Anion Gap 16 mmol/L 03/21/21 09:28 BUN 32 mg/dL (7-17) H 03/21/21 09:28 Creatinine 0.7 mg/dL (0.6-1.2) 03/21/21 09:28 Estimated GFR > 60 ml/min 03/21/21 09:28 BUN/Creatinine Ratio 46 % 03/21/21 09:28 Glucose 319 mg/dL (65-100) H 03/21/21 09:28 POC Glucose 295 mg/dL (70-105) H 03/21/21 12:31 Lactic Acid 4.00 mmol/L (0.7-2.0) H* 03/17/21 23:36 Calcium 8.8 mg/dL (8.4-10.2) 03/21/21 09:28 Phosphorus 3.50 mg/dL (2.5-4.5) 03/21/21 09:28 Magnesium 2.40 mg/dL (1.7-2.3) H 03/21/21 09:28 Total Bilirubin 0.20 mg/dL (0.1-1.2) 03/21/21 09:28 Direct Bilirubin < 0.2 mg/dL (0-0.2) 03/19/21 12:00 Indirect Bilirubin 0.1 mg/dL 03/19/21 12:00 AST 32 units/L (5-40) 03/21/21 09:28 ALT 697 units/L (7-56) H 03/21/21 09:28 Alkaline Phosphatase 134 units/L (35-129) H 03/21/21 09:28 Ammonia 26.0 umol/L (25-60) 03/19/21 12:00 Troponin T 0.015 ng/mL (0.00-0.029) 03/19/21 12:00 NT-Pro-B Natriuret Pep 576.0 pg/mL (0-900) 03/17/21 17:36 Total Protein 5.8 g/dL (6.3-8.2) L 03/21/21 09:28 Albumin 3.4 g/dL (3.9-5) L 03/21/21 09:28 Albumin/Globulin Ratio 1.4 % 03/21/21 09:28 Triglycerides 173 mg/dL (2-149) H 03/17/21 17:36 Cholesterol 191 mg/dL (50-199) 03/17/21 17:36 LDL Cholesterol Direct 80 mg/dL (50-130) 03/17/21 17:36 HDL Cholesterol 73 mg/dL (40-59) H 03/17/21 17:36 Cholesterol/HDL Ratio 2.61 % 03/17/21 17:36 Amylase 78 units/L (27-131) 03/19/21 Unknown Lipase 12 units/L (13-60) L 03/19/21 Unknown TSH 3.510 mlU/mL (0.270-4.200) 03/17/21 22:57 Urine Color Mayuri (Yellow) 03/17/21 19:42 Urine Turbidity Slightly-cloudy (Clear) 03/17/21 19:42 Urine pH 7.0 (5.0-7.0) 03/17/21 19:42 Ur Specific [place] 1.015 (1.003-1.030) 03/17/21 19:42 Urine Protein 100 mg/dl mg/dL (Negative) 03/17/21 19:42 Urine Glucose (UA) Neg mg/dL (Negative) 03/17/21 19:42 Urine Ketones 20 mg/dL (Negative) 03/17/21 19:42 Urine Blood Sm (Negative) 03/17/21 19:42 Urine Nitrite Neg (Negative) 03/17/21 19:42 Urine Bilirubin Neg (Negative) 03/17/21 19:42 Urine Urobilinogen 2.0 mg/dL (<2.0) 03/17/21 19:42 Ur Leukocyte Esterase Neg (Negative) 03/17/21 19:42 Urine WBC (Auto) 4.0 /HPF (0.0-6.0) 03/17/21 19:42 Urine RBC (Auto) 6.0 /HPF (0.0-6.0) 03/17/21 19:42 U Epithel Cells (Auto) 5.0 /HPF (0-13.0) 03/17/21 19:42 Urine Bacteria (Auto) 1+ /HPF (Negative) 03/17/21 19:42 Urine Mucus 1+ /HPF 03/17/21 19:42 Urine Yeast (Budding) Few /HPF 03/17/21 19:42 Acetaminophen 5.0 ug/mL (10.0-30.0) L 03/18/21 23:07 Coronavirus (PCR) Negative (Negative) 03/19/21 Unknown Blood Type A POSITIVE 03/21/21 14:08 Antibody Screen Negative 03/21/21 14:08 Crossmatch See Detail 03/21/21 14:08 [place]/IV: Voiding Method Indwelling Catheter Active Medications - Current Medications Current Medications: Generic Name Dose Route Start Last Admin Trade Name Freq PRN Reason Stop Dose Admin Acetaminophen 650 mg 03/18/21 00:05 Acetaminophen 325 Mg Tab PO Q6H PRN Pain MILD(1-3)/Fever >100.5/TOVAR Albuterol 2.5 mg 03/18/21 12:00 03/19/21 03:28 Albuterol 2.5 Mg/3 Ml Nebu IH 2.5 mg PRN PRN Administration Wheezing Lipase/Protease/Amylase 1 each 03/19/21 18:16 Lipase 10,500/Protease 25,000/Amylase 43,750 (Units) Dr Newman FEEDTUBE PRN PRN For Clogged Feeding Tube Atorvastatin Calcium 10 mg 03/19/21 22:00 03/20/21 21:42 Atorvastatin 10 Mg Tab PO 10 mg QHS BUTCH Administration Dextrose 0 ml 03/17/21 23:58 Dextrose 50% In Water (25gm) 50 Ml Syringe IV Q30MIN PRN Hypoglycemia Protocol Famotidine 20 mg 03/20/21 22:00 03/21/21 09:35 Famotidine 20 Mg Tab FEEDTUBE 20 mg BID REPLACED BY [facility] Administration Fentanyl 50 mcg 03/18/21 20:38 03/19/21 16:30 Fentanyl 100 Mcg/2 Ml Inj IV 50 mcg Q10MIN PRN Administration ANALGESIA Heparin Sodium (Porcine) 5,000 unit 03/18/21 06:00 03/21/21 13:05 Heparin 5,000 Unit/1 Ml Vial SUB-Q 5,000 unit Q8HR REPLACED BY [facility] Administration Hydrophilic Ointment 1 applic 03/17/21 17:35 Lip Therapy Vaseline TP Q2HR PRN Dry Lips Propofol 1,000 mg in 100 mls @ 4.5 mls/hr 03/18/21 21:00 03/21/21 18:10 Diprivan 10 Mg/Ml IV 10 mcg/kg/min TITR BUTCH 4.5 mls/hr Titration Protocol 10 MCG/KG/MIN Fentanyl Citrate 2,000 mcg in 100 mls @ 3.75 mls/hr 03/18/21 21:00 03/21/21 10:00 Fentanyl Drip Premix IV 1 mcg/kg/hr TITR BUTCH 3.75 mls/hr Administration Protocol 1 MCG/KG/HR Dexmedetomidine HCl 400 mcg/ 104 mls @ 4.306 mls/hr 03/21/21 13:00 03/21/21 15:15 Sodium Chloride IV 0.4 mcg/kg/hr TITRATE BUTCH 8.611 mls/hr Titration Protocol 0.2 MCG/KG/HR Insulin Glargine 15 units 03/21/21 22:00 Insulin Glargine 100 Units/Ml SUB-Q QHS REPLACED BY [facility] Insulin Human Lispro 0 unit 03/19/21 12:00 03/21/21 17:37 Insulin Lispro 100 Unit/Ml SUB-Q 6 unit Q6HR REPLACED BY [facility] Administration Protocol Magnesium Hydroxide 30 ml 03/18/21 00:05 Magnesium Hydroxide (Mom) Oral Liqd Udc PO Q4H PRN Constipation Methylprednisolone Sodium Succinate 40 mg 03/21/21 20:00 Methylprednisolone Sod Succinate 40 Mg/1 Ml Inj IV Q8H REPLACED BY [facility] Metoprolol Tartrate 25 mg 03/20/21 22:00 03/21/21 09:35 Metoprolol Tartrate 25 Mg Tab PO 25 mg BID REPLACED BY [facility] Administration Morphine Sulfate 2 mg 03/18/21 00:05 Morphine 2 Mg/1 Ml Inj IV Q4H PRN Pain, Moderate (4-6) Morphine Sulfate 4 mg 03/18/21 00:05 Morphine 4 Mg/1 Ml Inj IV Q4H PRN Pain , Severe (7-10) Multi-Ingred Cream/Lotion/Oil/Oint 1 applic 03/17/21 17:35 Mineral Oil/Petrolatum, White Ophth Oint 3.5 Gm OU Q4HR PRN Dry Eye(s) Senna/Docusate Sodium 1 tab 03/17/21 22:00 03/21/21 09:35 Sennosides/Docusate Sodium 8.6/50 Mg Tab FEEDTUBE 1 tab BID BUTCH Administration Simple Syrup 15 ml 03/19/21 18:16 Simple Syrup 15 Ml FEEDTUBE PRN PRN Hypoglycemia Simple Syrup 30 ml 03/19/21 18:16 Simple Syrup 15 Ml FEEDTUBE PRN PRN Hypoglycemia Sodium Bicarbonate 325 mg 03/19/21 18:16 Sodium Bicarbonate 325 Mg Tab FEEDTUBE PRN PRN For Clogged Feeding Tube Sodium Chloride 10 ml 03/18/21 10:00 03/21/21 09:36 Sodium Chloride 0.9% 10 Ml Flush Syringe IV 10 ml BID BUTCH Administration Sodium Chloride 10 ml 03/17/21 23:58 Sodium Chloride 0.9% 10 Ml Flush Syringe IV PRN PRN LINE FLUSH Nutrition/Malnutrition Assess - Dietary Evaluation Nutrition/Malnutrition Findings: Nutrition Notes Start: 03/18/21 09:46 Freq: Status: Active Protocol: Document 03/21/21 10:45 PAM (Rec: 03/21/21 11:07 PAM [id number]) Nutrition Notes Initial or Follow up Brief Note Other Pertinent Diagnosis R-Hydroureteronephrosis Current Diet TF-Promote @ 70 ml/hr (since D 03/19). Labs/Tests 03/21: K 5.1, Cl 94.4, CO2 33, BUN 32, Glu 319, Mg 2.4, ALT 697, AlkPhos 134, Tpro 5.8, Alb 3.4. Pertinent Medications 03/21: Insulin, Propofol 1000 mg in 100 ml @ 4.5 ml/hr (119 Kcal.), others nutritionally unremarkable. Height 5 ft 6 in Weight 82.8 kg [place] Body Weight (kg) 59.09 BMI 29.5 Weight change and time frame No body weight change reported . Weight Status Overweight Subjective/Other Information RD consult for TF tolerance. TF continues as prescribed. Mechanical ventilation continues. Nutrition Intervention Nutrition Support: Continue Promote @ 70 ml/hr. Flush: 50 ml water Q 4 hr. Goal #1 Provide at least 75% of energy /protein needs through Enteral Feeding during LOS. Follow-Up By: 03/23/21 Additional Comments Continue monitoring TF tolerance, and BM.
[2021-03-21] MEDS ORDERED: methylPREDNISolone Sod Succinate 125 MG/2 ML INJ IV SCH (15:00)
[2021-03-21] MEDS: methylPREDNISolone Sod Succinate 40 MG/1 ML INJ IV SCH (21:53)
[2021-03-21] MEDS ORDERED: INSULIN GLARGINE 100 UNITS/ML SUB-Q SCH (22:00)
[2021-03-22] MEDS: INSULIN LISPRO 100 UNIT/ML SUB-Q SCH ×4 (00:36→17:56)
--- NOTE | 2021-03-22 03:30 | XRay Report ---
CHEST 1 VIEW 03/22/2021 2:02 AM INDICATION / CLINICAL INFORMATION: follow up respiratory failure. COMPARISON: 03/21/2021 FINDINGS: SUPPORT DEVICES: Unchanged. HEART / MEDIASTINUM: Stable. LUNGS / PLEURA: Redemonstrated bibasilar opacities. No pneumothorax. ADDITIONAL FINDINGS: No significant additional findings. IMPRESSION: 1. No significant change. Signer Name: Ricci Kyle DO Signed: 03/22/2021 3:25 AM Workstation Name: [id number]
[2021-03-22 04:53] LABS: ABG Base Excess 10.9 mmol/L (-2.0-3.0); ABG HCO3 38.3 mmol/L (20.0-26.0); ABG Methemoglobin 0.4 % (0.0-1.5); ABG Oxygen Saturation 90.8 % (95.0-99.0); ABG PCO2 77.8 mm Hg; ABG PH 7.31 pH Units (7.350-7.450); ABG PO2 65.4 mm Hg (80.0-90.0)
[2021-03-22] MEDS: HEPARIN 5,000 UNIT/1 ML VIAL SUB-Q SCH ×2 (05:20→14:05)
[2021-03-22] MEDS: methylPREDNISolone Sod Succinate 40 MG/1 ML INJ IV SCH ×2 (05:20→21:46)
[2021-03-22 05:22] LABS: Mean Corpuscular HGB Conc 27 % (30-34); Mean Corpuscular Volume 73 fl (79-97); Platelet Count 644 K/mm3 (140-440); Red Blood Count 3.34 M/mm3 (3.65-5.03)
[2021-03-22 05:32] LABS: Hematocrit 24.5 % (30.3-42.9); Hemoglobin 6.6 gm/dl (10.1-14.3); Red Cell Distribution Width 25.5 % (13.2-15.2)
[2021-03-22 05:40] LABS: Blood Urea Nitrogen 33 mg/dL (7-17); Hemolysis Index 0
[2021-03-22 06:04] LABS: BUN/Creatinine Ratio 47
[2021-03-22] MEDS ORDERED: INSULIN REGULAR, HUMAN 100 UNITS/1 ML IV STA (07:56)
[2021-03-22] MEDS ORDERED: DEXTROSE 50% IN WATER (25GM) 50 ML SYRINGE IV STA (07:56)
[2021-03-22] MEDS ORDERED: ALBUTEROL 2.5 MG/3 ML NEBU IH PRN (08:00)
[2021-03-22] MEDS ORDERED: SODIUM CHLORIDE 0.9% 500 ML 500 ML IV SCH (08:17)
[2021-03-22] MEDS: fentaNYL DRIP Premix 2,000 MCG/100 ML BAG IV SCH (08:42)
[2021-03-22] MEDS: SODIUM POLYSTYRENE 15 GM/60 ML ORAL LIQD PO SCH ×2 (08:48→14:07)
[2021-03-22] MEDS: SENNOSIDES/DOCUSATE SODIUM 8.6/50 MG TAB FEEDTUBE SCH ×2 (09:08→21:41)
[2021-03-22] MEDS: FAMOTIDINE 20 MG TAB FEEDTUBE SCH ×2 (09:08→21:41)
[2021-03-22] MEDS: fentaNYL 100 MCG/2 ML INJ IV PRN ×5 (11:15→20:15)
[2021-03-22] MEDS ORDERED: MIDAZOLAM 5 MG/5 ML INJ MDV IV ONE (12:03)
[2021-03-22] MEDS ORDERED: ETOMIDATE 20 MG/10 ML INJ IV ONE (12:04)
--- NOTE | 2021-03-22 12:07 | Progress Note ---
Assessment and Plan - Patient Problems (1) Respiratory failure Current Visit: Yes Status: Acute Plan to address problem: Patient with long history of severe, oxygen dependent COPD, presents with respiratory failure due to COPD exacerbation. Sinus tachycardia on presentation is now resolved. Continue supportive management and current treatment of COPD exacerbation and sepsis. Subjective Date of service: 03/22/21 Principal diagnosis: Atrial fibrillation with RVR, respiratory failure Interval history: Patient is sedated, on the vent. On traffic monitor specialist there is a stable sinus rhythm, and stable blood pressure. Objective Vital Signs Temp Pulse Pulse Resp BP Pulse Ox 03/22/21 07:46 104 H 18 188/150 100 03/22/21 07:39 118 H 24 197/123 89 03/22/21 07:30 80 18 92/59 03/22/21 07:15 81 19 92/59 99 03/22/21 07:00 80 18 95/58 100 03/22/21 06:45 80 19 87/55 99 03/22/21 06:30 82 17 88/58 03/22/21 06:16 84 12 127/70 95 03/22/21 06:00 84 15 103/61 97 03/22/21 05:46 108 H 21 162/135 88 03/22/21 05:30 86 16 115/61 98 03/22/21 05:15 87 16 102/68 96 03/22/21 05:00 87 16 103/72 99 03/22/21 04:46 89 14 129/70 98 03/22/21 04:30 102 H 22 93/59 93 03/22/21 04:22 98 H 93/59 93 03/22/21 04:15 87 16 93/59 97 03/22/21 04:00 96.7 F L 90 88 15 91/60 96 03/22/21 03:45 91 H 16 106/69 03/22/21 03:30 89 16 113/67 95 03/22/21 03:15 92 H 16 122/79 94 03/22/21 03:00 90 22 129/78 91 03/22/21 02:45 94 H 18 125/80 92 03/22/21 02:30 93 H 20 135/78 91 03/22/21 02:16 109 H 20 193/101 88 03/22/21 02:00 90 17 127/76 91 03/22/21 01:45 92 H 16 137/89 92 03/22/21 01:30 89 16 152/86 89 03/22/21 01:15 91 H 25 H 136/86 91 03/22/21 01:00 87 14 144/85 88 03/22/21 00:45 88 19 134/86 95 03/22/21 00:30 92 H 22 161/88 90 03/22/21 00:23 106 H 99/55 98 03/22/21 00:16 107 H 23 45/12 78 L 03/22/21 00:10 85 16 99/55 100 03/22/21 00:00 96.9 F L 91 H 91 H 16 99/55 93 03/21/21 23:45 83 17 92/55 99 03/21/21 23:30 84 17 95/51 98 03/21/21 23:16 86 16 101/60 99 03/21/21 23:00 85 16 107/65 100 03/21/21 22:45 103 H 16 131/82 99 03/21/21 22:30 88 15 102/61 98 03/21/21 22:15 89 16 109/59 99 03/21/21 22:00 91 H 15 128/77 97 03/21/21 21:53 88 105/65 03/21/21 21:46 86 15 105/65 97 03/21/21 21:30 107 H 17 92/58 97 03/21/21 21:15 87 17 92/58 03/21/21 21:00 86 99 H 15 88/58 96 03/21/21 20:45 89 16 101/65 03/21/21 20:30 94 H 15 92/59 98 03/21/21 20:15 94 H 14 132/82 95 03/21/21 20:06 95 H 132/82 96 03/21/21 20:00 97.8 F 104 H 14 192/111 97 03/21/21 19:45 89 13 128/95 97 03/21/21 19:30 99 H 12 103/67 96 03/21/21 19:15 86 16 103/67 99 03/21/21 19:00 84 16 110/68 98 03/21/21 18:45 85 16 104/68 99 03/21/21 18:30 86 14 111/73 03/21/21 18:15 89 16 107/70 03/21/21 18:00 88 15 87/59 100 03/21/21 17:45 87 16 93/67 99 03/21/21 17:30 101 H 23 189/97 96 03/21/21 17:16 113 H 24 190/87 96 03/21/21 17:00 87 17 103/67 03/21/21 16:45 88 16 106/66 100 03/21/21 16:30 86 16 108/66 100 03/21/21 16:20 99 03/21/21 16:15 86 15 111/60 100 03/21/21 16:00 98.0 F 96 H 15 107/65 100 03/21/21 15:50 82 109/67 100 03/21/21 15:45 86 15 111/63 100 03/21/21 15:30 85 15 109/67 100 03/21/21 15:15 85 16 117/63 100 03/21/21 15:00 85 16 108/68 100 03/21/21 14:45 83 16 107/66 100 03/21/21 14:30 82 16 115/72 100 03/21/21 14:15 86 17 145/73 99 03/21/21 14:00 93 H 14 110/69 99 03/21/21 13:45 82 16 110/69 100 03/21/21 13:30 82 16 114/70 100 03/21/21 13:15 82 16 113/75 100 03/21/21 13:00 80 17 129/77 100 03/21/21 12:50 83 118/71 100 03/21/21 12:45 84 18 118/71 100 03/21/21 12:30 86 14 157/85 100 03/21/21 12:16 86 24 156/90 99 03/21/21 12:10 98 - Physical Examination General: Other (Intubated, sedated, on the vent) Neck: Positive: neck supple Cardiac: Positive: Reg Rate and Rhythm Lungs: Positive: Decreased Breath Sounds Neuro: Positive: Other (Intubated, sedated on the vent) Abdomen: Positive: Soft Skin: Positive: Clear Extremities: Present: edema (Trace) - Labs and Meds Lipids 03/22/21 Range/Units 04:39 Triglycerides 189 H (2-149) mg/dL CBC 03/22/21 Range/Units 04:39 WBC 12.8 H (4.5-11.0) K/mm3 RBC 3.34 L (3.65-5.03) M/mm3 Hgb 6.6 L (10.1-14.3) gm/dl Hct 24.5 L (30.3-42.9) % Plt Count 644 H (140-440) K/mm3 Comprehensive Metabolic Panel 03/22/21 Range/Units 04:39 Sodium 139 (137-145) mmol/L Potassium 5.3 H (3.6-5.0) mmol/L Chloride 94.6 L (98-107) mmol/L Carbon Dioxide 34 H (22-30) mmol/L BUN 33 H (7-17) mg/dL Creatinine 0.7 (0.6-1.2) mg/dL Glucose 291 H (65-100) mg/dL Calcium 9.0 (8.4-10.2) mg/dL
[2021-03-22] MEDS ORDERED: ROCURONIUM 50 MG/5 ML INJ IV ONE (12:14)
--- NOTE | 2021-03-22 12:38 | Event Note ---
Date: 03/22/21 Extubated patient and monitored in room at bedside. Patient became very anxious and agitated and then all of sudden stopped following commands. never desatted. Readjusted in the bed and prepped for re-intubation. Patient then became tachycardic and hypertensive. Desatted to the 70's. Once meds administered sats improved. Using glide scope and 4 mac blade, grade 3-4 view seen. Patient is very very anterior and given her large neck moderate degree of difficulty. 7.5 ET tube passed through the cords, stylet removed and tube secured. Awaiting CXR and will get stat head CT. Called and updated him. Also mentioned the possiblity of stroke and that trach may be needed. CCt 31 minutes.
--- NOTE | 2021-03-22 12:47 | Progress Note ---
Assessment and Plan 60 y/o female with acute on chronic respiratory failure, SVT and HTN likely all related to anxiety and stress 03/22/21: Please see event note for details. Planned to extubate today and wean steroids. 03/21/21: Echo given continued tachycardia despite adequate oxygenation. Can drop steroids to 40q8. 03/19/21: Continue sedation. Wean FiO2 for sats >88%. consider weaning steroid tomorrow. Follow up RUQ and trend LFT's 1. Wean Versed and place on Diprovan drip 2. Will give Fent 100 IV x1 now and order drip if needed for pain 3. Spoke with over the phone to get more history. Sounds like a panic attack not aborted by xanax therapy. Did check Tylenol level as patient has been in pain from fall 4. Elevated LFT's former drinker but confirms she has not been drinking. Ordered RUQ ultrasound and need to repeat LFT's tomorrow 5. Reviewed cards note, and they do not want to treat tachycardia or elevated bp, likely needs more sedation Guarded prognosis CCT 31 minutes. Subjective Date of service: 03/22/21 Principal diagnosis: Atrial fibrillation with RVR, respiratory failure Interval history: Awake and alert, on minimal support. Objective Vital Signs - 12hr 03/22/21 03/22/21 03/22/21 00:45 01:00 01:15 Temperature Pulse Rate 88 87 91 H Pulse Rate [ From Monitor] Respiratory 19 14 25 H Rate Blood Pressure 134/86 144/85 136/86 O2 Sat by Pulse 95 88 91 Oximetry 03/22/21 03/22/21 03/22/21 01:30 01:45 02:00 Temperature Pulse Rate 89 92 H 90 Pulse Rate [ From Monitor] Respiratory 16 16 17 Rate Blood Pressure 152/86 137/89 127/76 O2 Sat by Pulse 89 92 91 Oximetry 03/22/21 03/22/21 03/22/21 02:16 02:30 02:45 Temperature Pulse Rate 109 H 93 H 94 H Pulse Rate [ From Monitor] Respiratory 20 20 18 Rate Blood Pressure 193/101 135/78 125/80 O2 Sat by Pulse 88 91 92 Oximetry 03/22/21 03/22/21 03/22/21 03:00 03:15 03:30 Temperature Pulse Rate 90 92 H 89 Pulse Rate [ From Monitor] Respiratory 22 16 16 Rate Blood Pressure 129/78 122/79 113/67 O2 Sat by Pulse 91 94 95 Oximetry 03/22/21 03/22/21 03/22/21 03:45 04:00 04:15 Temperature 96.7 F L Pulse Rate 91 H 90 87 Pulse Rate [ 88 From Monitor] Respiratory 16 15 16 Rate Blood Pressure 106/69 91/60 93/59 O2 Sat by Pulse 96 97 Oximetry 03/22/21 03/22/21 03/22/21 04:22 04:30 04:46 Temperature Pulse Rate 98 H 102 H 89 Pulse Rate [ From Monitor] Respiratory 22 14 Rate Blood Pressure 93/59 93/59 129/70 O2 Sat by Pulse 93 93 98 Oximetry 03/22/21 03/22/21 03/22/21 05:00 05:15 05:30 Temperature Pulse Rate 87 87 86 Pulse Rate [ From Monitor] Respiratory 16 16 16 Rate Blood Pressure 103/72 102/68 115/61 O2 Sat by Pulse 99 96 98 Oximetry 03/22/21 03/22/21 03/22/21 05:46 06:00 06:16 Temperature Pulse Rate 108 H 84 84 Pulse Rate [ From Monitor] Respiratory 21 15 12 Rate Blood Pressure 162/135 103/61 127/70 O2 Sat by Pulse 88 97 95 Oximetry 03/22/21 03/22/21 03/22/21 06:30 06:45 07:00 Temperature Pulse Rate 82 80 80 Pulse Rate [ From Monitor] Respiratory 17 19 18 Rate Blood Pressure 88/58 87/55 95/58 O2 Sat by Pulse 99 100 Oximetry 03/22/21 03/22/21 03/22/21 07:15 07:30 07:39 Temperature Pulse Rate 81 80 118 H Pulse Rate [ From Monitor] Respiratory 19 18 24 Rate Blood Pressure 92/59 92/59 197/123 O2 Sat by Pulse 99 89 Oximetry 03/22/21 07:46 Temperature Pulse Rate 104 H Pulse Rate [ From Monitor] Respiratory 18 Rate Blood Pressure 188/150 O2 Sat by Pulse 100 Oximetry CBC and BMP: 03/22/21 04:39 03/22/21 04:39 ABG, PT/INR, D-dimer: ABG ABG pH 7.336 (7.320-7.450) 03/22/21 09:45 POC ABG pCO2 65.7 mmHg (32.0-48.0) H 12/30/21 09:45 ABG pCO2 77.8 mm Hg 03/22/21 04:30 POC ABG pO2 59.7 mmHg (83-108) L 03/22/21 09:45 ABG pO2 65.4 mm Hg (80.0-90.0) L 03/22/21 04:30 POC ABG HCO3 34.3 03/22/21 09:45 ABG O2 Saturation 87.4 (0-100) 03/22/21 09:45 PT/INR, D-dimer PT 12.6 Sec. (12.2-14.9) 03/17/21 17:37 INR 0.85 (0.87-1.13) L 03/17/21 17:37 D-Dimer 947.92 ng/mlDDU (0-234) H 03/17/21 17:37 Abnormal lab findings: Abnormal Labs 03/17/21 03/17/21 03/17/21 17:36 17:36 17:37 WBC 13.8 H RBC 3.48 L Hgb 7.0 L Hct 26.2 L MCV 75 L MCH 20 L MCHC 27 L RDW 25.4 H Plt Count Seg Neuts % (Manual) Monocytes % (Manual) Nucleated RBC % 7.0 H Seg Neutrophils # Man 8.7 H Lymphocytes # (Manual) INR 0.85 L APTT 23.3 L D-Dimer 947.92 H ABG pH POC ABG pCO2 POC ABG pO2 ABG pO2 ABG HCO3 ABG O2 Saturation ABG Base Excess ABG Hemoglobin ABG Oxyhemoglobin ABG Potassium ABG Chloride ABG Glucose Oxyhemoglobin Potassium Chloride 88.2 L Carbon Dioxide 38 H BUN Glucose 129 H POC Glucose Lactic Acid Magnesium AST 177 H ALT 251 H Alkaline Phosphatase Ammonia Troponin T 0.036 H Total Protein 5.9 L Albumin 3.8 L Triglycerides 173 H HDL Cholesterol 73 H Lipase Arterial Blood Glucose Acetaminophen Crossmatch 03/17/21 03/17/21 03/17/21 18:15 18:40 18:40 WBC RBC Hgb Hct MCV MCH MCHC RDW Plt Count Seg Neuts % (Manual) Monocytes % (Manual) Nucleated RBC % Seg Neutrophils # Man Lymphocytes # (Manual) INR APTT D-Dimer ABG pH POC ABG pCO2 POC ABG pO2 ABG pO2 94.4 H ABG HCO3 44.8 H ABG O2 Saturation ABG Base Excess 16.6 H ABG Hemoglobin ABG Oxyhemoglobin ABG Potassium ABG Chloride ABG Glucose Oxyhemoglobin Potassium Chloride Carbon Dioxide BUN Glucose POC Glucose Lactic Acid 4.00 H* Magnesium AST ALT Alkaline Phosphatase Ammonia 116.0 H Troponin T Total Protein Albumin Triglycerides HDL Cholesterol Lipase Arterial Blood Glucose Acetaminophen Crossmatch 03/17/21 03/18/21 03/18/21 23:36 00:25 23:07 WBC RBC Hgb Hct MCV MCH MCHC RDW Plt Count Seg Neuts % (Manual) Monocytes % (Manual) Nucleated RBC % Seg Neutrophils # Man Lymphocytes # (Manual) INR APTT D-Dimer ABG pH POC ABG pCO2 POC ABG pO2 ABG pO2 68.1 L ABG HCO3 40.2 H ABG O2 Saturation ABG Base Excess 14.4 H ABG Hemoglobin 6.5 L ABG Oxyhemoglobin ABG Potassium ABG Chloride ABG Glucose Oxyhemoglobin Potassium Chloride Carbon Dioxide BUN Glucose POC Glucose Lactic Acid 4.00 H* Magnesium AST ALT Alkaline Phosphatase Ammonia Troponin T Total Protein Albumin Triglycerides HDL Cholesterol Lipase Arterial Blood Glucose Acetaminophen 5.0 L Crossmatch 03/19/21 03/19/21 03/19/21 00:50 03:25 04:59 WBC RBC 3.43 L Hgb 7.0 L Hct 25.6 L MCV 75 L MCH 20 L MCHC 27 L RDW 25.6 H Plt Count Seg Neuts % (Manual) 91.0 H Monocytes % (Manual) 9.0 H Nucleated RBC % 3.0 H Seg Neutrophils # Man 9.0 H Lymphocytes # (Manual) 0.0 L INR APTT D-Dimer ABG pH 7.531 H POC ABG pCO2 POC ABG pO2 ABG pO2 49.6 L ABG HCO3 31.4 H ABG O2 Saturation 99.6 H ABG Base Excess 8.1 H ABG Hemoglobin 7.2 L ABG Oxyhemoglobin ABG Potassium ABG Chloride ABG Glucose Oxyhemoglobin Potassium Chloride Carbon Dioxide BUN Glucose POC Glucose 127 H Lactic Acid Magnesium AST ALT Alkaline Phosphatase Ammonia Troponin T Total Protein Albumin Triglycerides HDL Cholesterol Lipase Arterial Blood Glucose Acetaminophen Crossmatch 03/19/21 03/19/21 03/19/21 04:59 10:37 12:00 WBC RBC Hgb Hct MCV MCH MCHC RDW Plt Count Seg Neuts % (Manual) Monocytes % (Manual) Nucleated RBC % Seg Neutrophils # Man Lymphocytes # (Manual) INR APTT D-Dimer ABG pH 7.494 H POC ABG pCO2 POC ABG pO2 ABG pO2 107.3 H ABG HCO3 31.6 H ABG O2 Saturation ABG Base Excess 7.7 H ABG Hemoglobin 7.1 L ABG Oxyhemoglobin ABG Potassium ABG Chloride ABG Glucose Oxyhemoglobin Potassium Chloride 89.5 L Carbon Dioxide BUN Glucose 121 H POC Glucose Lactic Acid Magnesium AST 359 H ALT 1434 H Alkaline Phosphatase Ammonia Troponin T Total Protein 5.7 L Albumin 3.5 L Triglycerides HDL Cholesterol Lipase Arterial Blood Glucose Acetaminophen Crossmatch 03/19/21 03/19/21 03/19/21 12:05 17:52 23:23 WBC RBC Hgb Hct MCV MCH MCHC RDW Plt Count Seg Neuts % (Manual) Monocytes % (Manual) Nucleated RBC % Seg Neutrophils # Man Lymphocytes # (Manual) INR APTT D-Dimer ABG pH POC ABG pCO2 POC ABG pO2 ABG pO2 ABG HCO3 ABG O2 Saturation ABG Base Excess ABG Hemoglobin ABG Oxyhemoglobin ABG Potassium ABG Chloride ABG Glucose Oxyhemoglobin Potassium Chloride Carbon Dioxide BUN Glucose POC Glucose 122 H 114 H 187 H Lactic Acid Magnesium AST ALT Alkaline Phosphatase Ammonia Troponin T Total Protein Albumin Triglycerides HDL Cholesterol Lipase Arterial Blood Glucose Acetaminophen Crossmatch 03/19/21 03/20/21 03/20/21 Unknown 03:50 03:57 WBC RBC Hgb Hct MCV MCH MCHC RDW Plt Count Seg Neuts % (Manual) Monocytes % (Manual) Nucleated RBC % Seg Neutrophils # Man Lymphocytes # (Manual) INR APTT D-Dimer ABG pH 7.477 H POC ABG pCO2 POC ABG pO2 ABG pO2 67.9 L ABG HCO3 33.9 H ABG O2 Saturation ABG Base Excess 9.5 H ABG Hemoglobin 6.7 L ABG Oxyhemoglobin ABG Potassium ABG Chloride ABG Glucose Oxyhemoglobin Potassium Chloride Carbon Dioxide BUN Glucose POC Glucose 247 H Lactic Acid Magnesium AST ALT Alkaline Phosphatase Ammonia Troponin T Total Protein Albumin Triglycerides HDL Cholesterol Lipase 12 L Arterial Blood Glucose Acetaminophen Crossmatch 03/20/21 03/20/21 03/20/21 04:18 04:18 10:16 WBC RBC 3.48 L Hgb 7.0 L Hct 25.3 L MCV 73 L MCH 20 L MCHC 28 L RDW 25.2 H Plt Count 541 H Seg Neuts % (Manual) Monocytes % (Manual) Nucleated RBC % Seg Neutrophils # Man Lymphocytes # (Manual) INR APTT D-Dimer ABG pH POC ABG pCO2 POC ABG pO2 ABG pO2 63.3 L ABG HCO3 34.0 H ABG O2 Saturation 90.0 L ABG Base Excess 7.9 H ABG Hemoglobin 10.5 L ABG Oxyhemoglobin ABG Potassium ABG Chloride ABG Glucose Oxyhemoglobin 88.1 L Potassium Chloride 91.6 L Carbon Dioxide BUN 22 H Glucose 245 H POC Glucose Lactic Acid Magnesium AST 148 H ALT 1096 H Alkaline Phosphatase 133 H Ammonia Troponin T Total Protein Albumin 3.5 L Triglycerides HDL Cholesterol Lipase Arterial Blood Glucose Acetaminophen Crossmatch 03/20/21 03/20/21 03/21/21 12:05 17:26 00:18 WBC RBC Hgb Hct MCV MCH MCHC RDW Plt Count Seg Neuts % (Manual) Monocytes % (Manual) Nucleated RBC % Seg Neutrophils # Man Lymphocytes # (Manual) INR APTT D-Dimer ABG pH POC ABG pCO2 POC ABG pO2 ABG pO2 ABG HCO3 ABG O2 Saturation ABG Base Excess ABG Hemoglobin ABG Oxyhemoglobin ABG Potassium ABG Chloride ABG Glucose Oxyhemoglobin Potassium Chloride Carbon Dioxide BUN Glucose POC Glucose 226 H 215 H 323 H Lactic Acid Magnesium AST ALT Alkaline Phosphatase Ammonia Troponin T Total Protein Albumin Triglycerides HDL Cholesterol Lipase Arterial Blood Glucose Acetaminophen Crossmatch 03/21/21 03/21/21 03/21/21 04:00 05:05 09:28 WBC 12.0 H RBC 3.42 L Hgb 6.8 L Hct 25.3 L MCV 74 L MCH 20 L MCHC 27 L RDW 25.1 H Plt Count 650 H Seg Neuts % (Manual) Monocytes % (Manual) Nucleated RBC % Seg Neutrophils # Man Lymphocytes # (Manual) INR APTT D-Dimer ABG pH 7.348 L POC ABG pCO2 POC ABG pO2 ABG pO2 56.3 L ABG HCO3 36.9 H ABG O2 Saturation 83.4 L ABG Base Excess 10.0 H ABG Hemoglobin 7.0 L ABG Oxyhemoglobin ABG Potassium ABG Chloride ABG Glucose Oxyhemoglobin 81.7 L Potassium Chloride Carbon Dioxide BUN Glucose POC Glucose 311 H Lactic Acid Magnesium AST ALT Alkaline Phosphatase Ammonia Troponin T Total Protein Albumin Triglycerides HDL Cholesterol Lipase Arterial Blood Glucose Acetaminophen Crossmatch 03/21/21 03/21/21 03/21/21 09:28 12:31 14:08 WBC RBC Hgb Hct MCV MCH MCHC RDW Plt Count Seg Neuts % (Manual) Monocytes % (Manual) Nucleated RBC % Seg Neutrophils # Man Lymphocytes # (Manual) INR APTT D-Dimer ABG pH POC ABG pCO2 POC ABG pO2 ABG pO2 ABG HCO3 ABG O2 Saturation ABG Base Excess ABG Hemoglobin ABG Oxyhemoglobin ABG Potassium ABG Chloride ABG Glucose Oxyhemoglobin Potassium 5.1 H D Chloride 94.4 L Carbon Dioxide 33 H BUN 32 H Glucose 319 H POC Glucose 295 H Lactic Acid Magnesium 2.40 H AST ALT 697 H Alkaline Phosphatase 134 H Ammonia Troponin T Total Protein 5.8 L Albumin 3.4 L Triglycerides HDL Cholesterol Lipase Arterial Blood Glucose Acetaminophen Crossmatch See Detail 03/22/21 03/22/21 03/22/21 00:14 04:30 04:39 WBC RBC Hgb Hct MCV MCH MCHC RDW Plt Count Seg Neuts % (Manual) Monocytes % (Manual) Nucleated RBC % Seg Neutrophils # Man Lymphocytes # (Manual) INR APTT D-Dimer ABG pH 7.310 L POC ABG pCO2 POC ABG pO2 ABG pO2 65.4 L ABG HCO3 38.3 H ABG O2 Saturation 90.8 L ABG Base Excess 10.9 H ABG Hemoglobin 6.4 L ABG Oxyhemoglobin ABG Potassium ABG Chloride ABG Glucose Oxyhemoglobin 88.7 L Potassium Chloride Carbon Dioxide BUN Glucose POC Glucose 326 H Lactic Acid Magnesium AST ALT Alkaline Phosphatase Ammonia Troponin T Total Protein Albumin Triglycerides 189 H HDL Cholesterol Lipase Arterial Blood Glucose Acetaminophen Crossmatch 03/22/21 03/22/21 03/22/21 04:39 04:39 09:45 WBC 12.8 H RBC 3.34 L Hgb 6.6 L Hct 24.5 L MCV 73 L MCH 20 L MCHC 27 L RDW 25.5 H Plt Count 644 H Seg Neuts % (Manual) Monocytes % (Manual) Nucleated RBC % Seg Neutrophils # Man Lymphocytes # (Manual) INR APTT D-Dimer ABG pH POC ABG pCO2 65.7 H POC ABG pO2 59.7 L ABG pO2 ABG HCO3 ABG O2 Saturation ABG Base Excess ABG Hemoglobin 8.0 L ABG Oxyhemoglobin 86.3 L ABG Potassium 4.7 H ABG Chloride 94.0 L ABG Glucose 208 H Oxyhemoglobin Potassium 5.3 H Chloride 94.6 L Carbon Dioxide 34 H BUN 33 H Glucose 291 H POC Glucose Lactic Acid Magnesium AST ALT Alkaline Phosphatase Ammonia Troponin T Total Protein Albumin Triglycerides HDL Cholesterol Lipase Arterial Blood Glucose 208 H Acetaminophen Crossmatch
--- NOTE | 2021-03-22 13:50 | Progress Note ---
<VINNIEDARLENE MichaelPorfirio - Last Filed: 03/22/21 19:30> Assessment and Plan Assessment and plan: This is a 50-year-old female with COPD with oxygen dependence, DM, severe anxiety, GERD, HLD, HTN and PAGE admitted with SVT and hypertensive urgency. Neuro: Hepatic/metabolic encephalopathy, h/o severe anxiety, depression -Admit ammonia 116, 03/09 ammonia 26 -Sedated with propofol and fentanyl gtt -RASS goal 0 to -1 -Bilateral wrist restraints in place for safety -Avoid delirium -Maintain sleep-wake cycle -SAT when appropriate -Resume home cymbalta and buspar when appropriate -CT head on admit with no acute findings -Repeat CT head today d/t AMS post extubation Cardio: Hypertensive emergency, s/p A. fib with RVR, s/p SVT, h/o HTN, HLD -Cardiology consulted, appreciate recommendations -PO metoprolol BID -Resume home statin -Blood pressure monitoring per protocol -Echocardiogram 10/2020 showed EF of 50 to 55%, mild diastolic dysfunction, trace to mild tricuspid regurgitation, mild pulmonary hypertension, RVSP 45 mmHg Resp : Acute on chronic respiratory failure, h/o COPD and PAGE -CCM consulted, appreciate recommendations -CTA chest shows no CT evidence of pulmonary embolism, small right and trace left pleural effusion, upper lobe predominant emphysema -Intubated on 03/17 with 7.00 ETT at 20 at the lips and extubated 03/22 but reintubated shortly after -A.m. vent settings: Assist control tidal volume 450, rate 16, PEEP 6, 40% FiO2 -See RT notes for titration -A.m. ABG and CXR noted -VAP bundle -SPO2 monitoring -Methylprednisone being weaned GI: Transaminitis (resolving), h/o chronic constipation -NTR consulted, appreciate recommendations -RUQ US shows right hydroureteronephrosis and possible gallbladder sludge or gallstones -Renal ultrasound shows mild right-sided hydronephrosis with parenchymal th inning and trace perinephric fluid. -Trend LFTs -PPI -BR: senakot S -24 hours +711 mL : Hypochlormia, mild right hydroureteronephrosis, hyperkalemia -Trend BMP -FWF with TF -Strict I & Os -Wallis -Renal ultrasound shows mild right-sided hydronephrosis with parenchymal thinning and trace perinephric fluid. -Kaexlyte for hyper K Endo: NAD -Avoid hypoglycemia -SSI -Accucheck q 6hrs -Lantus Heme: Anemia, Leukocytosis, h/o Microcytic anemia -Trend CBC -Transfuse for hbg <7 -hbg 6.8 -given one unit prbc today -SCDs to BLE while in bed -Lovenox subq ID: Gram positive cocci in tracheal aspirate -02/25 tracheal aspirate with few gram-positive cocci -Levaquin (03/18-) -Trend WBC and fever curve The high probability of a clinically significant, sudden or life threatening deterioration of the [pulm/cv] system(s) required my full and direct attention, intervention and personal management. The aggregate critical care time was [60] minutes. This time is in addition to time spent performing reported procedures but includes the following: [x] Data Review and interpretation [x] Patient assessment and monitoring of vital signs [x] Documentation [x] Medication orders and management Disposition Plan: icu Total Time Spent with Patient (Minutes): 60 History Interval history: This is a 60-year-old female with COPD with oxygen dependence currently with palliative care, DM, former nicotine abuse, severe anxiety, GERD, HLD, HTN and PAGE presented to emergency department on 03/17 via EMS with complaints of shortness of breath. On arrival of EMS patient was found to be in SVT with a heart rate of about 200 and blood pressure to be quite elevated with systolic in 200s. She was given 6 mg of adenosine without significant changes subsequently given 12 mg of adenosine with improvement of her heart rate. Upon arrival to the emergency department patient was found to be in atrial fibrillation with RVR and dyspneic. Work-up in the emergency department revealed leukocytosis, lactic acidosis, transaminitis, hypoalbuminemia and a troponin leak. CXR, CT a chest and CT head were unremarkable. Patient was admitted to the hospitalist service with consults to [facility] and cardiology for further work-up of acute on chronic respiratory failure, SVT and hypertensive urgency. 03/18/2021: Patient is intubated and on vent support, Patient is in sinus tachycardia 03/19: COVID-19 PCR negative, remains on ventilatory support, Versed drip changed to propofol. No acute events reported overnight. Tracheal aspirate with few gram-positive Cocci. This afternoon, patient went in to the 150s, giving 500 mL NS bolus and fentanyl push to see if it pain related. If persists then will order prn Ativan per Dr. Gage recommendation. 03/20: Restarted on home metoprolol and abdominal ultrasound showed right hydronephrosis. Abd US shows right hydroureteronephrosis and will obtain a dedicated renal US. She seems to more comfortable on propofol and fentanyl 03/21: Patient's FiO2 had to be decreased overnight due to hypoxia and tachycardia. Hyperkalemia noted and given Kayexalate. 1 unit PRBC for hemoglobin 6.8. [facility] plans to extubate tomorrow. Increase in Lantus. 03/22: Transfuse one unit prbc, failed SBT in the AM d/t hypertension. [facility] extubated the patient but she was reintubated within [address] head ordered and pending read. Given kionex x2 for hyperkalemia Hospitalist Physical - Constitutional Vitals: Temp Pulse Resp BP Pulse Ox 96.7 F L 104 H 20 188/150 100 03/22/21 04:00 03/22/21 07:46 03/22/21 13:39 03/22/21 07:46 03/22/21 07:46 General appearance: Present: no acute distress, other (sedated) - EENT Eyes: Present: PERRL, EOM intact ENT: clear oral mucosa - Neck Neck: Present: normal ROM - Respiratory Respiratory effort: normal Respiratory: bilateral: diminished - Cardiovascular Rhythm: regular Heart Sounds: Present: S1 & S2. Absent: systolic murmur, diastolic murmur - Extremities Extremities: no ischemia, pulses intact, pulses symmetrical, No edema, normal temperature, normal color Peripheral Pulses: within normal limits - Abdominal General gastrointestinal: soft, non-tender, non-distended, normal bowel sounds - Integumentary Integumentary: Present: warm, dry - Psychiatric Psychiatric: other (sedated) - Neurologic Neurologic: other (sedated) - Allied Health Allied health notes reviewed: nursing, RT, social work HEART Score - HEART Score Troponin: Troponin T 0.015 ng/mL (0.00-0.029) 03/19/21 12:00 Results - Labs CBC & Chem 7: 03/22/21 04:39 03/22/21 04:39 Labs: Laboratory Last Values WBC 12.8 K/mm3 (4.5-11.0) H 03/22/21 04:39 RBC 3.34 M/mm3 (3.65-5.03) L 03/22/21 04:39 Hgb 6.6 gm/dl (10.1-14.3) L 03/22/21 04:39 Hct 24.5 % (30.3-42.9) L 03/22/21 04:39 MCV 73 fl (79-97) L 03/22/21 04:39 MCH 20 pg (28-32) L 03/22/21 04:39 MCHC 27 % (30-34) L 03/22/21 04:39 RDW 25.5 % (13.2-15.2) H 03/22/21 04:39 Plt Count 644 K/mm3 (140-440) H 03/22/21 04:39 Add Manual Diff Complete 03/19/21 04:59 Total Counted 100 03/19/21 04:59 Seg Neuts % (Manual) 91.0 % (40.0-70.0) H 03/19/21 04:59 Band Neutrophils % 9.0 % 03/19/21 04:59 Lymphocytes % (Manual) 31.0 % (13.4-35.0) 03/19/21 04:59 Reactive Lymphs % (Man) 5.0 % 03/19/21 04:59 Monocytes % (Manual) 9.0 % (0.0-7.3) H 03/19/21 04:59 Metamyelocytes % 1.0 % 03/19/21 04:59 Myelocytes % 3.0 % 03/19/21 04:59 Promyelocytes % 3.0 % 03/19/21 04:59 Nucleated RBC % 3.0 % (0.0-0.9) H 03/19/21 04:59 Seg Neutrophils # Man 9.0 K/mm3 (1.8-7.7) H 03/19/21 04:59 Band Neutrophils # 0.9 K/mm3 03/19/21 04:59 Lymphocytes # (Manual) 0.0 K/mm3 (1.2-5.4) L 03/19/21 04:59 Abs React Lymphs (Man) 0.0 K/mm3 03/19/21 04:59 Monocytes # (Manual) 0.0 K/mm3 (0.0-0.8) 03/19/21 04:59 Eosinophils # (Manual) 0.0 K/mm3 (0.0-0.4) 03/19/21 04:59 Basophils # (Manual) 0.0 K/mm3 (0.0-0.1) 03/19/21 04:59 Metamyelocytes # 0.0 K/mm3 03/19/21 04:59 Myelocytes # 0.0 K/mm3 03/19/21 04:59 Promyelocytes # 0.0 K/mm3 03/19/21 04:59 Blast Cells # 0.0 K/mm3 03/19/21 04:59 WBC Morphology Not Reportable 03/19/21 04:59 Hypersegmented Neuts Not Reportable 03/19/21 04:59 Hyposegmented Neuts Not Reportable 03/19/21 04:59 Hypogranular Neuts Not Reportable 03/19/21 04:59 Smudge Cells Not Reportable 03/19/21 04:59 Toxic Granulation Not Reportable 03/19/21 04:59 Toxic Vacuolation Not Reportable 03/19/21 04:59 Dohle Bodies Not Reportable 03/19/21 04:59 Pelger-Huet Anomaly Not Reportable 03/19/21 04:59 Florentino Rods Not Reportable 03/19/21 04:59 Platelet Estimate Consistent w auto 03/19/21 04:59 Clumped Platelets Not Reportable 03/19/21 04:59 Plt Clumps, EDTA Not Reportable 03/19/21 04:59 Large Platelets Few 03/19/21 04:59 Giant Platelets Not Reportable 03/19/21 04:59 Platelet Satelliting Not Reportable 03/19/21 04:59 Plt Morphology Comment Not Reportable 03/19/21 04:59 RBC Morphology Not Reportable 03/19/21 04:59 Dimorphic RBCs Not Reportable 03/19/21 04:59 Polychromasia Few 03/19/21 04:59 Hypochromasia 1+ 03/19/21 04:59 Poikilocytosis Not Reportable 03/19/21 04:59 Anisocytosis 1+ 03/19/21 04:59 Microcytosis 2+ 03/19/21 04:59 Macrocytosis Not Reportable 03/19/21 04:59 Spherocytes Not Reportable 03/19/21 04:59 Pappenheimer Bodies Not Reportable 03/19/21 04:59 Sickle Cells Not Reportable 03/19/21 04:59 Target Cells Not Reportable 03/19/21 04:59 Tear Drop Cells Not Reportable 03/19/21 04:59 Ovalocytes 1+ 03/19/21 04:59 Stomatocytes 1+ 03/17/21 17:36 Helmet Cells Not Reportable 03/19/21 04:59 Mabry-La Liga Bodies Not Reportable 03/19/21 04:59 Raymond Rings Not Reportable 03/19/21 04:59 Marcelo Cells Not Reportable 03/19/21 04:59 Bite Cells Not Reportable 03/19/21 04:59 Crenated Cell Not Reportable 03/19/21 04:59 Elliptocytes Not Reportable 03/19/21 04:59 Acanthocytes (Spur) Not Reportable 03/19/21 04:59 Rouleaux Not Reportable 03/19/21 04:59 Hemoglobin C Crystals Not Reportable 03/19/21 04:59 Schistocytes Not Reportable 03/19/21 04:59 Malaria parasites Not Reportable 03/19/21 04:59 Maykel Bodies Not Reportable 03/19/21 04:59 Hem Pathologist Commnt No 03/19/21 04:59 PT 12.6 Sec. (12.2-14.9) 03/17/21 17:37 INR 0.85 (0.87-1.13) L 03/17/21 17:37 APTT 23.3 Sec. (24.2-36.6) L 03/17/21 17:37 D-Dimer 947.92 ng/mlDDU (0-234) H 03/17/21 17:37 ABG pH 7.336 (7.320-7.450) 03/22/21 09:45 POC ABG pCO2 65.7 mmHg (32.0-48.0) H 03/22/21 09:45 ABG pCO2 77.8 mm Hg 03/22/21 04:30 POC ABG pO2 59.7 mmHg (83-108) L 03/22/21 09:45 ABG pO2 65.4 mm Hg (80.0-90.0) L 03/22/21 04:30 POC ABG HCO3 34.3 03/22/21 09:45 ABG HCO3 38.3 mmol/L (20.0-26.0) H 03/22/21 04:30 ABG O2 Saturation 87.4 (0-100) 03/22/21 09:45 ABG O2 Content 8.0 (0.0-44) 03/22/21 04:30 POC ABG Base Excess 7.4 03/22/21 09:45 ABG Base Excess 10.9 mmol/L (-2.0-3.0) H 03/22/21 04:30 ABG Hemoglobin 8.0 (12.0-17.5) L 03/22/21 09:45 ABG Oxyhemoglobin 86.3 (94-98) L 03/22/21 09:45 ABG Carboxyhemoglobin 1.9 % (0.0-5.0) 03/22/21 04:30 ABG Methemoglobin 0.1 (0.0-1.5) 03/22/21 09:45 ABG Sodium 136.4 mmol/L (136.0-145.0) 03/22/21 09:45 ABG Potassium 4.7 mmol/L (3.40-4.50) H 03/22/21 09:45 ABG Chloride 94.0 mmol/L (98-107) L 03/22/21 09:45 ABG Glucose 208 mg/dL (65-95) H 03/22/21 09:45 Oxyhemoglobin 88.7 % (95.0-99.0) L 03/22/21 04:30 Carboxyhemoglobin 1.2 (0.5-1.5) 03/22/21 09:45 FiO2 40 % 03/22/21 04:30 FiO2 % 40 03/22/21 09:45 Sodium 139 mmol/L (137-145) 03/22/21 04:39 Potassium 5.3 mmol/L (3.6-5.0) H 03/22/21 04:39 Chloride 94.6 mmol/L (98-107) L 03/22/21 04:39 Carbon Dioxide 34 mmol/L (22-30) H 03/22/21 04:39 Anion Gap 16 mmol/L 03/22/21 04:39 BUN 33 mg/dL (7-17) H 03/22/21 04:39 Creatinine 0.7 mg/dL (0.6-1.2) 03/22/21 04:39 Estimated GFR > 60 ml/min 03/22/21 04:39 BUN/Creatinine Ratio 47 % 03/22/21 04:39 Glucose 291 mg/dL (65-100) H 03/22/21 04:39 POC Glucose 326 mg/dL (70-105) H 03/22/21 00:14 Lactic Acid 4.00 mmol/L (0.7-2.0) H* 03/17/21 23:36 Calcium 9.0 mg/dL (8.4-10.2) 03/22/21 04:39 Phosphorus 3.50 mg/dL (2.5-4.5) 03/21/21 09:28 Magnesium 2.40 mg/dL (1.7-2.3) H 03/21/21 09:28 Total Bilirubin 0.20 mg/dL (0.1-1.2) 03/21/21 09:28 Direct Bilirubin < 0.2 mg/dL (0-0.2) 03/19/21 12:00 Indirect Bilirubin 0.1 mg/dL 03/19/21 12:00 AST 32 units/L (5-40) 03/21/21 09:28 ALT 697 units/L (7-56) H 03/21/21 09:28 Alkaline Phosphatase 134 units/L (35-129) H 03/21/21 09:28 Ammonia 26.0 umol/L (25-60) 03/19/21 12:00 Troponin T 0.015 ng/mL (0.00-0.029) 03/19/21 12:00 NT-Pro-B Natriuret Pep 576.0 pg/mL (0-900) 03/17/21 17:36 Total Protein 5.8 g/dL (6.3-8.2) L 03/21/21 09:28 Albumin 3.4 g/dL (3.9-5) L 03/21/21 09:28 Albumin/Globulin Ratio 1.4 % 03/21/21 09:28 Triglycerides 189 mg/dL (2-149) H 03/22/21 04:39 Cholesterol 191 mg/dL (50-199) 03/17/21 17:36 LDL Cholesterol Direct 80 mg/dL (50-130) 03/17/21 17:36 HDL Cholesterol 73 mg/dL (40-59) H 03/17/21 17:36 Cholesterol/HDL Ratio 2.61 % 03/17/21 17:36 Amylase 78 units/L (27-131) 03/19/21 Unknown Lipase 12 units/L (13-60) L 03/19/21 Unknown TSH 3.510 mlU/mL (0.270-4.200) 03/17/21 22:57 Arterial Blood Glucose 208 mg/dL (65-95) H 03/22/21 09:45 Arterial Blood Ionized Calcium 4.7 mg/dL (4.6-5.3) 03/22/21 09:45 Urine Color Mayuri (Yellow) 03/17/21 19:42 Urine Turbidity Slightly-cloudy (Clear) 03/17/21 19:42 Urine pH 7.0 (5.0-7.0) 03/17/21 19:42 Ur Specific [place] 1.015 (1.003-1.030) 03/17/21 19:42 Urine Protein 100 mg/dl mg/dL (Negative) 03/17/21 19:42 Urine Glucose (UA) Neg mg/dL (Negative) 03/17/21 19:42 Urine Ketones 20 mg/dL (Negative) 03/17/21 19:42 Urine Blood Sm (Negative) 03/17/21 19:42 Urine Nitrite Neg (Negative) 03/17/21 19:42 Urine Bilirubin Neg (Negative) 03/17/21 19:42 Urine Urobilinogen 2.0 mg/dL (<2.0) 03/17/21 19:42 Ur Leukocyte Esterase Neg (Negative) 03/17/21 19:42 Urine WBC (Auto) 4.0 /HPF (0.0-6.0) 03/17/21 19:42 Urine RBC (Auto) 6.0 /HPF (0.0-6.0) 03/17/21 19:42 U Epithel Cells (Auto) 5.0 /HPF (0-13.0) 03/17/21 19:42 Urine Bacteria (Auto) 1+ /HPF (Negative) 03/17/21 19:42 Urine Mucus 1+ /HPF 03/17/21 19:42 Urine Yeast (Budding) Few /HPF 03/17/21 19:42 Acetaminophen 5.0 ug/mL (10.0-30.0) L 03/18/21 23:07 Coronavirus (PCR) Negative (Negative) 03/19/21 Unknown Blood Type A POSITIVE 03/21/21 14:08 Antibody Screen Negative 03/21/21 14:08 Crossmatch See Detail 03/21/21 14:08 Wallis/IV: Voiding Method Indwelling Catheter Active Medications - Current Medications Current Medications: Generic Name Dose Route Start Last Admin Trade Name Freq PRN Reason Stop Dose Admin Acetaminophen 650 mg 03/18/21 00:05 Acetaminophen 325 Mg Tab PO Q6H PRN Pain MILD(1-3)/Fever >100.5/TOVAR Albuterol 2.5 mg 03/22/21 08:00 Albuterol 2.5 Mg/3 Ml Nebu IH Q6H PRN Wheezing Lipase/Protease/Amylase 1 each 03/19/21 18:16 Lipase 10,500/Protease 25,000/Amylase 43,750 (Units) Dr Newman FEEDTUBE PRN PRN For Clogged Feeding Tube Atorvastatin Calcium 10 mg 03/19/21 22:00 03/21/21 21:54 Atorvastatin 10 Mg Tab PO 10 mg QHS BUTCH Administration Dextrose 0 ml 03/17/21 23:58 Dextrose 50% In Water (25gm) 50 Ml Syringe IV Q30MIN PRN Hypoglycemia Protocol Famotidine 20 mg 03/20/21 22:00 03/22/21 09:08 Famotidine 20 Mg Tab FEEDTUBE 20 mg BID BUTCH Administration Fentanyl 50 mcg 03/18/21 20:38 03/22/21 13:39 Fentanyl 100 Mcg/2 Ml Inj IV 50 mcg Q10MIN PRN Administration ANALGESIA Fentanyl 50 mcg 03/22/21 14:00 03/22/21 11:30 Fentanyl 100 Mcg/2 Ml Inj IV 03/22/21 14:01 50 mcg ONCE ONE Administration Heparin Sodium (Porcine) 5,000 unit 03/18/21 06:00 03/22/21 05:20 Heparin 5,000 Unit/1 Ml Vial SUB-Q 5,000 unit Q8HR BUTCH Administration Hydrophilic Ointment 1 applic 03/17/21 17:35 Lip Therapy Vaseline TP Q2HR PRN Dry Lips Propofol 1,000 mg in 100 mls @ 4.5 mls/hr 03/18/21 21:00 03/22/21 07:32 Diprivan 10 Mg/Ml IV 0 mcg/kg/min TITR BUTCH 0 mls/hr Titration Protocol 10 MCG/KG/MIN Fentanyl Citrate 2,000 mcg in 100 mls @ 3.75 mls/hr 03/18/21 21:00 03/22/21 09:18 Fentanyl Drip Premix IV 2 mcg/kg/hr TITR BUTCH 7.5 mls/hr Titration Protocol 1 MCG/KG/HR Dexmedetomidine HCl 400 mcg/ 104 mls @ 4.306 mls/hr 03/21/21 13:00 03/22/21 11:30 Sodium Chloride IV 0 mcg/kg/hr TITRATE BUTCH 0 mls/hr Titration Protocol 0.2 MCG/KG/HR Sodium Chloride 500 mls @ 0 mls/hr 03/22/21 08:17 Nacl 0.9% 500 Ml IV 03/22/21 23:59 ONCE BUTCH As Directed Insulin Glargine 20 units 03/22/21 22:00 Insulin Glargine 100 Units/Ml SUB-Q QHS [facility] Insulin Human Lispro 0 unit 03/19/21 12:00 03/22/21 05:26 Insulin Lispro 100 Unit/Ml SUB-Q 4 unit Q6HR [facility] Administration Protocol Magnesium Hydroxide 30 ml 03/18/21 00:05 Magnesium Hydroxide (Mom) Oral Liqd Udc PO Q4H PRN Constipation Methylprednisolone Sodium Succinate 40 mg 03/21/21 20:00 03/22/21 05:20 Methylprednisolone Sod Succinate 40 Mg/1 Ml Inj IV 40 mg Q8H [facility] Administration Metoprolol Tartrate 25 mg 03/20/21 22:00 03/21/21 21:53 Metoprolol Tartrate 25 Mg Tab PO 25 mg BID [facility] Administration Morphine Sulfate 2 mg 03/18/21 00:05 Morphine 2 Mg/1 Ml Inj IV Q4H PRN Pain, Moderate (4-6) Morphine Sulfate 4 mg 03/18/21 00:05 Morphine 4 Mg/1 Ml Inj IV Q4H PRN Pain , Severe (7-10) Multi-Ingred Cream/Lotion/Oil/Oint 1 applic 03/17/21 17:35 Mineral Oil/Petrolatum, White Ophth Oint 3.5 Gm OU Q4HR PRN Dry Eye(s) Senna/Docusate Sodium 1 tab 03/17/21 22:00 03/22/21 09:08 Sennosides/Docusate Sodium 8.6/50 Mg Tab FEEDTUBE 1 tab BID BUTCH Administration Simple Syrup 15 ml 03/19/21 18:16 Simple Syrup 15 Ml FEEDTUBE PRN PRN Hypoglycemia Simple Syrup 30 ml 03/19/21 18:16 Simple Syrup 15 Ml FEEDTUBE PRN PRN Hypoglycemia Sodium Bicarbonate 325 mg 03/19/21 18:16 Sodium Bicarbonate 325 Mg Tab FEEDTUBE PRN PRN For Clogged Feeding Tube Sodium Chloride 10 ml 03/18/21 10:00 03/22/21 05:27 Sodium Chloride 0.9% 10 Ml Flush Syringe IV 10 ml BID BUTCH Administration Sodium Chloride 10 ml 03/17/21 23:58 Sodium Chloride 0.9% 10 Ml Flush Syringe IV PRN PRN LINE FLUSH Nutrition/Malnutrition Assess - Dietary Evaluation Nutrition/Malnutrition Findings: Nutrition Notes Start: 03/18/21 09:46 Freq: Status: Active Protocol: Document 03/21/21 10:45 PAM (Rec: 03/21/21 11:07 PAM [id number]) Nutrition Notes Initial or Follow up Brief Note Other Pertinent Diagnosis R-Hydroureteronephrosis Current Diet TF-Promote @ 70 ml/hr (since D 03/19). Labs/Tests 03/21: K 5.1, Cl 94.4, CO2 33, BUN 32, Glu 319, Mg 2.4, ALT 697, AlkPhos 134, Tpro 5.8, Alb 3.4. Pertinent Medications 03/21: Insulin, Propofol 1000 mg in 100 ml @ 4.5 ml/hr (119 Kcal.), others nutritionally unremarkable. Height 5 ft 6 in Weight 82.8 kg [place] Body Weight (kg) 59.09 BMI 29.5 Weight change and time frame No body weight change reported . Weight Status Overweight Subjective/Other Information RD consult for TF tolerance. TF continues as prescribed. Mechanical ventilation continues. Nutrition Intervention Nutrition Support: Continue Promote @ 70 ml/hr. Flush: 50 ml water Q 4 hr. Goal #1 Provide at least 75% of energy /protein needs through Enteral Feeding during LOS. Follow-Up By: 03/23/21 Additional Comments Continue monitoring TF tolerance, and BM. <LISSET VIDES O - Last Filed: 03/23/21 07:00> Assessment and Plan Assessment and plan: I saw and evaluated the patient. I agree with the findings and the plan of care as documented in the Nurse Practitioner's~note, with the following corrections and additions. patient with acute resp failure, intubated on vent. Hyperkalemia. Give more kayexalate. Transfuse 1 Unit PRBC Hospitalist Physical - Constitutional Vitals: Temp Pulse Resp BP Pulse Ox 98.4 F 140 H 37 H 111/61 95 03/23/21 06:00 03/23/21 06:16 03/23/21 06:16 03/23/21 06:16 03/23/21 06:00 HEART Score - HEART Score Troponin: Troponin T 0.015 ng/mL (0.00-0.029) 03/19/21 12:00 Results - Labs CBC & Chem 7: 03/23/21 04:42 03/23/21 04:42 Labs: Laboratory Last Values WBC 14.3 K/mm3 (4.5-11.0) H 03/23/21 04:42 RBC 3.63 M/mm3 (3.65-5.03) L 03/23/21 04:42 Hgb 7.6 gm/dl (10.1-14.3) L 03/23/21 04:42 Hct 27.0 % (30.3-42.9) L 03/23/21 04:42 MCV 74 fl (79-97) L 03/23/21 04:42 MCH 21 pg (28-32) L 03/23/21 04:42 MCHC 28 % (30-34) L 03/23/21 04:42 RDW 23.1 % (13.2-15.2) H 03/23/21 04:42 Plt Count 567 K/mm3 (140-440) H 03/23/21 04:42 Add Manual Diff Complete 03/19/21 04:59 Total Counted 100 03/19/21 04:59 Seg Neuts % (Manual) 91.0 % (40.0-70.0) H 03/19/21 04:59 Band Neutrophils % 9.0 % 03/19/21 04:59 Lymphocytes % (Manual) 31.0 % (13.4-35.0) 03/19/21 04:59 Reactive Lymphs % (Man) 5.0 % 03/19/21 04:59 Monocytes % (Manual) 9.0 % (0.0-7.3) H 03/19/21 04:59 Metamyelocytes % 1.0 % 03/19/21 04:59 Myelocytes % 3.0 % 03/19/21 04:59 Promyelocytes % 3.0 % 03/19/21 04:59 Nucleated RBC % 3.0 % (0.0-0.9) H 03/19/21 04:59 Seg Neutrophils # Man 9.0 K/mm3 (1.8-7.7) H 03/19/21 04:59 Band Neutrophils # 0.9 K/mm3 03/19/21 04:59 Lymphocytes # (Manual) 0.0 K/mm3 (1.2-5.4) L 03/19/21 04:59 Abs React Lymphs (Man) 0.0 K/mm3 03/19/21 04:59 Monocytes # (Manual) 0.0 K/mm3 (0.0-0.8) 03/19/21 04:59 Eosinophils # (Manual) 0.0 K/mm3 (0.0-0.4) 03/19/21 04:59 Basophils # (Manual) 0.0 K/mm3 (0.0-0.1) 03/19/21 04:59 Metamyelocytes # 0.0 K/mm3 03/19/21 04:59 Myelocytes # 0.0 K/mm3 03/19/21 04:59 Promyelocytes # 0.0 K/mm3 03/19/21 04:59 Blast Cells # 0.0 K/mm3 03/19/21 04:59 WBC Morphology Not Reportable 03/19/21 04:59 Hypersegmented Neuts Not Reportable 03/19/21 04:59 Hyposegmented Neuts Not Reportable 03/19/21 04:59 Hypogranular Neuts Not Reportable 03/19/21 04:59 Smudge Cells Not Reportable 03/19/21 04:59 Toxic Granulation Not Reportable 03/19/21 04:59 Toxic Vacuolation Not Reportable 03/19/21 04:59 Dohle Bodies Not Reportable 03/19/21 04:59 Pelger-Huet Anomaly Not Reportable 03/19/21 04:59 Florentino Rods Not Reportable 03/19/21 04:59 Platelet Estimate Consistent w auto 03/19/21 04:59 Clumped Platelets Not Reportable 03/19/21 04:59 Plt Clumps, EDTA Not Reportable 03/19/21 04:59 Large Platelets Few 03/19/21 04:59 Giant Platelets Not Reportable 03/19/21 04:59 Platelet Satelliting Not Reportable 03/19/21 04:59 Plt Morphology Comment Not Reportable 03/19/21 04:59 RBC Morphology Not Reportable 03/19/21 04:59 Dimorphic RBCs Not Reportable 03/19/21 04:59 Polychromasia Few 03/19/21 04:59 Hypochromasia 1+ 03/19/21 04:59 Poikilocytosis Not Reportable 03/19/21 04:59 Anisocytosis 1+ 03/19/21 04:59 Microcytosis 2+ 03/19/21 04:59 Macrocytosis Not Reportable 03/19/21 04:59 Spherocytes Not Reportable 03/19/21 04:59 Pappenheimer Bodies Not Reportable 03/19/21 04:59 Sickle Cells Not Reportable 03/19/21 04:59 Target Cells Not Reportable 03/19/21 04:59 Tear Drop Cells Not Reportable 03/19/21 04:59 Ovalocytes 1+ 03/19/21 04:59 Stomatocytes 1+ 03/17/21 17:36 Helmet Cells Not Reportable 03/19/21 04:59 Mabry-La Liga Bodies Not Reportable 03/19/21 04:59 Raymond Rings Not Reportable 03/19/21 04:59 Marcelo Cells Not Reportable 03/19/21 04:59 Bite Cells Not Reportable 03/19/21 04:59 Crenated Cell Not Reportable 03/19/21 04:59 Elliptocytes Not Reportable 03/19/21 04:59 Acanthocytes (Spur) Not Reportable 03/19/21 04:59 Rouleaux Not Reportable 03/19/21 04:59 Hemoglobin C Crystals Not Reportable 03/19/21 04:59 Schistocytes Not Reportable 03/19/21 04:59 Malaria parasites Not Reportable 03/19/21 04:59 Maykel Bodies Not Reportable 03/19/21 04:59 Hem Pathologist Commnt No 03/19/21 04:59 PT 12.6 Sec. (12.2-14.9) 03/17/21 17:37 INR 0.85 (0.87-1.13) L 03/17/21 17:37 APTT 23.3 Sec. (24.2-36.6) L 03/17/21 17:37 D-Dimer 947.92 ng/mlDDU (0-234) H 03/17/21 17:37 ABG pH 7.377 pH Units (7.350-7.450) 03/23/21 04:50 POC ABG pCO2 65.7 mmHg (32.0-48.0) H 03/22/21 09:45 ABG pCO2 72.7 mm Hg 03/23/21 04:50 POC ABG pO2 59.7 mmHg (83-108) L 03/22/21 09:45 ABG pO2 70.7 mm Hg (80.0-90.0) L 03/23/21 04:50 POC ABG HCO3 34.3 03/22/21 09:45 ABG HCO3 41.7 mmol/L (20.0-26.0) H 03/23/21 04:50 ABG O2 Saturation 98.8 % (95.0-99.0) 03/23/21 04:50 ABG O2 Content 7.8 (0.0-44) 03/23/21 04:50 POC ABG Base Excess 7.4 03/22/21 09:45 ABG Base Excess 15.2 mmol/L (-2.0-3.0) H 03/23/21 04:50 ABG Hemoglobin 5.6 gm/dl (12.0-16.0) L 03/23/21 04:50 ABG Oxyhemoglobin 86.3 (94-98) L 03/22/21 09:45 ABG Carboxyhemoglobin 1.7 % (0.0-5.0) 03/23/21 04:50 ABG Methemoglobin 0.3 % (0.0-1.5) 03/23/21 04:50 ABG Sodium 136.4 mmol/L (136.0-145.0) 03/22/21 09:45 ABG Potassium 4.7 mmol/L (3.40-4.50) H 03/22/21 09:45 ABG Chloride 94.0 mmol/L (98-107) L 03/22/21 09:45 ABG Glucose 208 mg/dL (65-95) H 03/22/21 09:45 Oxyhemoglobin 96.9 % (95.0-99.0) 03/23/21 04:50 Carboxyhemoglobin 1.2 (0.5-1.5) 03/22/21 09:45 FiO2 40 % 03/23/21 04:50 FiO2 % 40 03/22/21 09:45 Sodium 141 mmol/L (137-145) 03/23/21 04:42 Potassium 4.5 mmol/L (3.6-5.0) 03/23/21 04:42 Chloride 94.6 mmol/L (98-107) L 03/23/21 04:42 Carbon Dioxide 37 mmol/L (22-30) H 03/23/21 04:42 Anion Gap 14 mmol/L 03/23/21 04:42 BUN 27 mg/dL (7-17) H 03/23/21 04:42 Creatinine 0.6 mg/dL (0.6-1.2) 03/23/21 04:42 Estimated GFR > 60 ml/min 03/23/21 04:42 BUN/Creatinine Ratio 45 % 03/23/21 04:42 Glucose 311 mg/dL (65-100) H 03/23/21 04:42 POC Glucose 156 mg/dL (70-105) H 03/22/21 23:58 Lactic Acid 4.00 mmol/L (0.7-2.0) H* 03/17/21 23:36 Calcium 8.6 mg/dL (8.4-10.2) 03/23/21 04:42 Phosphorus 3.50 mg/dL (2.5-4.5) 03/21/21 09:28 Magnesium 2.40 mg/dL (1.7-2.3) H 03/21/21 09:28 Total Bilirubin 0.20 mg/dL (0.1-1.2) 03/21/21 09:28 Direct Bilirubin < 0.2 mg/dL (0-0.2) 03/19/21 12:00 Indirect Bilirubin 0.1 mg/dL 03/19/21 12:00 AST 32 units/L (5-40) 03/21/21 09:28 ALT 697 units/L (7-56) H 03/21/21 09:28 Alkaline Phosphatase 134 units/L (35-129) H 03/21/21 09:28 Ammonia 26.0 umol/L (25-60) 03/19/21 12:00 Troponin T 0.015 ng/mL (0.00-0.029) 03/19/21 12:00 NT-Pro-B Natriuret Pep 576.0 pg/mL (0-900) 03/17/21 17:36 Total Protein 5.8 g/dL (6.3-8.2) L 03/21/21 09:28 Albumin 3.4 g/dL (3.9-5) L 03/21/21 09:28 Albumin/Globulin Ratio 1.4 % 03/21/21 09:28 Triglycerides 189 mg/dL (2-149) H 03/22/21 04:39 Cholesterol 191 mg/dL (50-199) 03/17/21 17:36 LDL Cholesterol Direct 80 mg/dL (50-130) 03/17/21 17:36 HDL Cholesterol 73 mg/dL (40-59) H 03/17/21 17:36 Cholesterol/HDL Ratio 2.61 % 03/17/21 17:36 Amylase 78 units/L (27-131) 03/19/21 Unknown Lipase 12 units/L (13-60) L 03/19/21 Unknown TSH 3.510 mlU/mL (0.270-4.200) 03/17/21 22:57 Arterial Blood Glucose 208 mg/dL (65-95) H 03/22/21 09:45 Arterial Blood Ionized Calcium 4.7 mg/dL (4.6-5.3) 03/22/21 09:45 Urine Color [place] (Yellow) 03/17/21 19:42 Urine Turbidity Slightly-cloudy (Clear) 03/17/21 19:42 Urine pH 7.0 (5.0-7.0) 03/17/21 19:42 Ur Specific [place] 1.015 (1.003-1.030) 03/17/21 19:42 Urine Protein 100 mg/dl mg/dL (Negative) 03/17/21 19:42 Urine Glucose (UA) Neg mg/dL (Negative) 03/17/21 19:42 Urine Ketones 20 mg/dL (Negative) 03/17/21 19:42 Urine Blood Sm (Negative) 03/17/21 19:42 Urine Nitrite Neg (Negative) 03/17/21 19:42 Urine Bilirubin Neg (Negative) 03/17/21 19:42 Urine Urobilinogen 2.0 mg/dL (<2.0) 03/17/21 19:42 Ur Leukocyte Esterase Neg (Negative) 03/17/21 19:42 Urine WBC (Auto) 4.0 /HPF (0.0-6.0) 03/17/21 19:42 Urine RBC (Auto) 6.0 /HPF (0.0-6.0) 03/17/21 19:42 U Epithel Cells (Auto) 5.0 /HPF (0-13.0) 03/17/21 19:42 Urine Bacteria (Auto) 1+ /HPF (Negative) 03/17/21 19:42 Urine Mucus 1+ /HPF 03/17/21 19:42 Urine Yeast (Budding) Few /HPF 03/17/21 19:42 Acetaminophen 5.0 ug/mL (10.0-30.0) L 03/18/21 23:07 Coronavirus (PCR) Negative (Negative) 03/19/21 Unknown Blood Type A POSITIVE 03/21/21 14:08 Antibody Screen Negative 03/21/21 14:08 Crossmatch See Detail 03/21/21 14:08 [place]/IV: Voiding Method Indwelling Catheter Active Medications - Current Medications Current Medications: Generic Name Dose Route Start Last Admin Trade Name Freq PRN Reason Stop Dose Admin Acetaminophen 650 mg 03/18/21 00:05 Acetaminophen 325 Mg Tab PO Q6H PRN Pain MILD(1-3)/Fever >100.5/TOVAR Albuterol 2.5 mg 03/22/21 08:00 Albuterol 2.5 Mg/3 Ml Nebu IH Q6H PRN Wheezing Lipase/Protease/Amylase 1 each 03/19/21 18:16 Lipase 10,500/Protease 25,000/Amylase 43,750 (Units) Dr Newman FEEDTUBE PRN PRN For Clogged Feeding Tube Atorvastatin Calcium 10 mg 03/19/21 22:00 03/22/21 22:03 Atorvastatin 10 Mg Tab PO 10 mg QHS BUTCH Administration Dextrose 0 ml 03/17/21 23:58 Dextrose 50% In Water (25gm) 50 Ml Syringe IV Q30MIN PRN Hypoglycemia Protocol Famotidine 20 mg 03/20/21 22:00 03/22/21 21:41 Famotidine 20 Mg Tab FEEDTUBE 20 mg BID BUTCH Administration Fentanyl 50 mcg 03/22/21 14:42 03/23/21 06:24 Fentanyl 100 Mcg/2 Ml Inj IV 50 mcg Q10MIN PRN Administration ANALGESIA Heparin Sodium (Porcine) 5,000 unit 03/18/21 06:00 03/23/21 05:58 Heparin 5,000 Unit/1 Ml Vial SUB-Q 5,000 unit Q8HR BUTCH Administration Hydrophilic Ointment 1 applic 03/17/21 17:35 Lip Therapy Vaseline TP Q2HR PRN Dry Lips Dexmedetomidine HCl 400 mcg/ 104 mls @ 4.306 mls/hr 03/21/21 13:00 03/23/21 06:26 Sodium Chloride IV 1.1 mcg/kg/hr TITRATE BUTCH 23.681 mls/hr Titration Protocol 0.2 MCG/KG/HR Fentanyl Citrate 2,000 mcg in 100 mls @ 4.14 mls/hr 03/22/21 15:00 Fentanyl Drip Premix IV TITR BUTCH Protocol 1 MCG/KG/HR Insulin Glargine 20 units 03/22/21 22:00 03/23/21 05:59 Insulin Glargine 100 Units/Ml SUB-Q 20 units QHS BUTCH Administration Insulin Human Lispro 0 unit 03/19/21 12:00 03/23/21 06:01 Insulin Lispro 100 Unit/Ml SUB-Q 3 unit Q6HR BUTCH Administration Protocol Magnesium Hydroxide 30 ml 03/18/21 00:05 Magnesium Hydroxide (Mom) Oral Liqd Udc PO Q4H PRN Constipation Methylprednisolone Sodium Succinate 40 mg 03/21/21 20:00 03/23/21 05:58 Methylprednisolone Sod Succinate 40 Mg/1 Ml Inj IV 40 mg Q8H BUTCH Administration Metoprolol Tartrate 25 mg 03/20/21 22:00 03/21/21 21:53 Metoprolol Tartrate 25 Mg Tab PO 25 mg BID BUTCH Administration Midazolam HCl 2 mg 03/22/21 14:39 03/23/21 06:25 Midazolam 2 Mg/2 Ml Inj IV 2 mg Q4HR PRN Administration Agitation Morphine Sulfate 2 mg 03/18/21 00:05 Morphine 2 Mg/1 Ml Inj IV Q4H PRN Pain, Moderate (4-6) Morphine Sulfate 4 mg 03/18/21 00:05 Morphine 4 Mg/1 Ml Inj IV Q4H PRN Pain , Severe (7-10) Multi-Ingred Cream/Lotion/Oil/Oint 1 applic 03/17/21 17:35 Mineral Oil/Petrolatum, White Ophth Oint 3.5 Gm OU Q4HR PRN Dry Eye(s) Senna/Docusate Sodium 1 tab 03/17/21 22:00 03/22/21 21:41 Sennosides/Docusate Sodium 8.6/50 Mg Tab FEEDTUBE 1 tab BID BUTCH Administration Simple Syrup 15 ml 03/19/21 18:16 Simple Syrup 15 Ml FEEDTUBE PRN PRN Hypoglycemia Simple Syrup 30 ml 03/19/21 18:16 Simple Syrup 15 Ml FEEDTUBE PRN PRN Hypoglycemia Sodium Bicarbonate 325 mg 03/19/21 18:16 Sodium Bicarbonate 325 Mg Tab FEEDTUBE PRN PRN For Clogged Feeding Tube Sodium Chloride 10 ml 03/18/21 10:00 03/22/21 23:21 Sodium Chloride 0.9% 10 Ml Flush Syringe IV 10 ml BID BUTCH Administration Sodium Chloride 10 ml 03/17/21 23:58 03/22/21 23:20 Sodium Chloride 0.9% 10 Ml Flush Syringe IV 10 ml PRN PRN Administration LINE FLUSH Nutrition/Malnutrition Assess - Dietary Evaluation Nutrition/Malnutrition Findings: Nutrition Notes Start: 03/18/21 09 :46 Freq: Status: Active Protocol: Document 03/21/21 10:45 PAM (Rec: 03/21/21 11:07 PAM [id number]) Nutrition Notes Initial or Follow up Brief Note Other Pertinent Diagnosis R-Hydroureteronephrosis Current Diet TF-Promote @ 70 ml/hr (since D 03/19). Labs/Tests 03/21: K 5.1, Cl 94.4, CO2 33, BUN 32, Glu 319, Mg 2.4, ALT 697, AlkPhos 134, Tpro 5.8, Alb 3.4. Pertinent Medications 03/21: Insulin, Propofol 1000 mg in 100 ml @ 4.5 ml/hr (119 Kcal.), others nutritionally unremarkable. Height 5 ft 6 in Weight 82.8 kg [place] Body Weight (kg) 59.09 BMI 29.5 Weight change and time frame No body weight change reported . Weight Status Overweight Subjective/Other Information RD consult for TF tolerance. TF continues as prescribed. Mechanical ventilation continues. Nutrition Intervention Nutrition Support: Continue Promote @ 70 ml/hr. Flush: 50 ml water Q 4 hr. Goal #1 Provide at least 75% of energy /protein needs through Enteral Feeding during LOS. Follow-Up By: 03/23/21 Additional Comments Continue monitoring TF tolerance, and BM.
[2021-03-22] MEDS ORDERED: fentaNYL 100 MCG/2 ML INJ IV ONE (14:00)
[2021-03-22] MEDS ORDERED: fentaNYL 100 MCG/2 ML INJ IV PRN (14:39)
[2021-03-22] MEDS: MIDAZOLAM 2 MG/2 ML INJ IV PRN ×2 (14:54→21:38)
--- NOTE | 2021-03-22 15:27 | Cat Scan Report ---
CT head/brain wo con INDICATION / CLINICAL INFORMATION: 60 years Female; ams. TECHNIQUE: Routine CT head without contrast. All CT scans at this location are performed using CT dos e reduction for ALARA by means of automated exposure control. COMPARISON: The study is compared to previous CT of 05/26/2020. FINDINGS: BRAIN / INTRACRANIAL CONTENTS: The motion degrades the image quality in this intubated patient. Howev er, there is moderate cerebral white matter disease most consistent with microvascular angiopathy. Th ere is also mild cerebral atrophy with corresponding mild prominence of the ventricular system. There is no clear CT evidence of acute intracranial hemorrhage or significant mass effect. ORBITS: No significant abnormality of visualized orbits. SINUSES / MASTOIDS: There is mild opacification along the posterior left sphenoid sinus. CRANIOCERVICAL JUNCTION: No significant abnormality. ADDITIONAL FINDINGS: None. IMPRESSION: 1. The motion degrades the image quality in this intubated patient. However, there is continued moder ate microvascular angiopathy as described without clear CT evidence of acute intracranial hemorrhage. Signer Name: Feroz Kuhn MD Signed: 03/22/2021 3:23 PM Workstation Name: [id number]
--- NOTE | 2021-03-22 15:46 | XRay Report ---
XR abdomen 1V ap INDICATION: NGT placement for meds on vented patient. COMPARISON: None available. FINDINGS: The tip of the esophagogastric tube projects over the body of the stomach. Signer Name: Ortega Durán MD Signed: 03/22/2021 3:42 PM Workstation Name: [id number]
--- NOTE | 2021-03-22 22:47 | XRay Report ---
ABDOMEN 1 VIEW 03/22/2021 INDICATION / CLINICAL INFORMATION: Placement NGT. COMPARISON: 03/22/2021 FINDINGS: TUBES / LINES: Enteric tube terminates within the stomach with the side-port within the stomach. BOWEL GAS PATTERN: No significant abnormality. FREE AIR / EXTRALUMINAL GAS: None seen. ADDITIONAL FINDINGS: No significant additional findings. IMPRESSION: 1. Enteric tube terminates within the stomach with side-port within the stomach Signer Name: Ricci Kyle DO Signed: 03/22/2021 10:42 PM Workstation Name: [id number]
[2021-03-23] MEDS: MIDAZOLAM 2 MG/2 ML INJ IV PRN ×3 (00:48→06:25)
[2021-03-23] MEDS: fentaNYL 100 MCG/2 ML INJ IV PRN ×4 (00:53→08:14)
[2021-03-23 04:58] LABS: Mean Corpuscular HGB Conc 28 % (30-34); Mean Corpuscular Volume 74 fl (79-97); Platelet Count 567 K/mm3 (140-440); Red Blood Count 3.63 M/mm3 (3.65-5.03)
[2021-03-23 05:04] LABS: Hemoglobin 7.6 gm/dl (10.1-14.3); Red Cell Distribution Width 23.1 % (13.2-15.2)
[2021-03-23 05:12] LABS: Blood Urea Nitrogen 27 mg/dL (7-17); Calcium 8.6 mg/dL (8.4-10.2); Hemolysis Index 1
[2021-03-23 05:13] LABS: BUN/Creatinine Ratio 45
[2021-03-23 05:17] LABS: ABG Base Excess 15.2 mmol/L (-2.0-3.0); ABG HCO3 41.7 mmol/L (20.0-26.0); ABG Methemoglobin 0.3 % (0.0-1.5); ABG Oxygen Saturation 98.8 % (95.0-99.0); ABG PCO2 72.7 mm Hg; ABG PH 7.377 pH Units (7.350-7.450); ABG PO2 70.7 mm Hg (80.0-90.0)
[2021-03-23] MEDS: HEPARIN 5,000 UNIT/1 ML VIAL SUB-Q SCH ×4 (05:57→22:28)
[2021-03-23] MEDS: methylPREDNISolone Sod Succinate 40 MG/1 ML INJ IV SCH ×4 (05:58→22:28)
[2021-03-23] MEDS: INSULIN GLARGINE 100 UNITS/ML SUB-Q SCH ×2 (05:59→22:34)
[2021-03-23] MEDS: INSULIN LISPRO 100 UNIT/ML SUB-Q SCH ×5 (06:00→23:56)
[2021-03-23] MEDS: fentaNYL DRIP Premix 2,000 MCG/100 ML BAG IV SCH (08:15)
--- NOTE | 2021-03-23 09:03 | Progress Note ---
Assessment and Plan - Patient Problems (1) Anemia Current Visit: Yes Status: Acute (2) COPD exacerbation Current Visit: Yes Status: Acute (3) Respiratory failure Current Visit: Yes Status: Acute (4) Tachyarrhythmia Current Visit: Yes Status: Acute Subjective Date of service: 03/23/21 Principal diagnosis: Atrial fibrillation with RVR, respiratory failure Interval history: ALERT,, ON MECH. VENT. Objective Vital Signs Temp Pulse Pulse Pulse Pulse Pulse Pulse 03/23/21 08:00 98.4 F 03/23/21 06:16 140 H 03/23/21 06:00 98.4 F 85 03/23/21 05:45 102 H 03/23/21 05:30 107 H 03/23/21 05:16 94 H 03/23/21 05:00 141 H 03/23/21 04:46 100 H 03/23/21 04:30 111 H 03/23/21 04:16 96 H 03/23/21 04:00 96 H 96 H 03/23/21 03:45 83 03/23/21 03:30 93 H 03/23/21 03:16 83 03/23/21 03:00 87 03/23/21 02:45 94 H 03/23/21 02:30 90 03/23/21 02:21 98.4 F 03/23/21 02:16 98 H 03/23/21 02:00 82 03/23/21 01:46 80 03/23/21 01:30 78 03/23/21 01:16 87 03/23/21 01:00 95 H 03/23/21 00:46 101 H 03/23/21 00:30 101 H 03/23/21 00:15 90 03/23/21 00:00 98.8 F 105 H 78 03/22/21 23:46 102 H 03/22/21 23:30 88 03/22/21 23:15 96 H 03/22/21 23:00 77 03/22/21 22:45 89 03/22/21 22:30 87 03/22/21 22:16 85 03/22/21 22:00 91 H 03/22/21 21:45 96 H 03/22/21 21:30 88 03/22/21 21:15 79 03/22/21 21:00 81 03/22/21 20:45 95 H 03/22/21 20:30 88 03/22/21 20:15 93 H 03/22/21 20:00 99.1 F 93 H 89 03/22/21 19:46 104 H 03/22/21 19:30 89 03/22/21 19:16 84 03/22/21 19:02 93 H 03/22/21 19:00 87 03/22/21 18:45 78 03/22/21 18:30 90 03/22/21 18:10 83 03/22/21 18:00 118 H 03/22/21 17:50 86 03/22/21 17:40 106 H 03/22/21 17:30 109 H 03/22/21 17:20 91 H 03/22/21 17:10 88 03/22/21 17:00 118 H 03/22/21 16:50 83 03/22/21 16:40 84 03/22/21 16:30 86 03/22/21 16:22 98.6 F 87 03/22/21 16:20 105 H 03/22/21 16:10 86 03/22/21 16:00 97.9 F 87 83 83 83 83 83 03/22/21 15:50 86 03/22/21 15:40 88 03/22/21 15:30 101 H 03/22/21 15:20 128 H 03/22/21 15:10 133 H 03/22/21 15:00 95 H 03/22/21 14:50 92 H 03/22/21 14:40 124 H 03/22/21 14:30 146 H 03/22/21 14:20 84 03/22/21 14:10 85 03/22/21 14:00 83 03/22/21 13:50 104 H 03/22/21 13:40 85 03/22/21 13:39 03/22/21 13:30 82 03/22/21 13:20 83 03/22/21 13:10 88 03/22/21 13:00 83 03/22/21 12:30 94 H 03/22/21 12:20 142 H 03/22/21 12:10 102 H 03/22/21 12:00 98.1 F 86 83 83 83 83 83 03/22/21 11:50 96 H 03/22/21 11:40 86 03/22/21 11:30 82 03/22/21 11:20 85 03/22/21 11:15 03/22/21 11:10 85 03/22/21 11:00 101 H 03/22/21 10:50 86 03/22/21 10:40 100 H 03/22/21 10:30 84 03/22/21 10:20 84 03/22/21 10:10 87 03/22/21 10:00 94 H 03/22/21 09:50 85 03/22/21 09:40 96 H Resp BP Pulse Ox 03/23/21 08:00 03/23/21 06:16 37 H 111/61 03/23/21 06:00 20 111/61 95 03/23/21 05:45 18 157/73 94 03/23/21 05:30 19 156/79 92 03/23/21 05:16 18 104/60 95 03/23/21 05:00 31 H 135/86 88 03/23/21 04:46 22 135/86 95 03/23/21 04:30 20 154/76 100 03/23/21 04:16 18 154/76 100 03/23/21 04:00 14 136/67 99 03/23/21 03:45 18 136/67 99 03/23/21 03:30 19 138/87 100 03/23/21 03:16 18 120/67 99 03/23/21 03:00 14 129/67 100 03/23/21 02:45 18 145/82 98 03/23/21 02:30 16 137/75 99 03/23/21 02:21 03/23/21 02:16 15 142/82 98 03/23/21 02:00 15 138/69 100 03/23/21 01:46 15 111/63 99 03/23/21 01:30 16 111/65 03/23/21 01:16 20 112/73 100 03/23/21 01:00 16 101/67 97 03/23/21 00:46 17 145/91 98 03/23/21 00:30 19 186/125 100 03/23/21 00:15 11 L 141/106 98 03/23/21 00:00 18 149/96 99 03/22/21 23:46 17 141/91 100 03/22/21 23:30 17 148/88 100 03/22/21 23:15 12 137/94 100 03/22/21 23:00 29 H 141/75 100 03/22/21 22:45 20 159/87 99 03/22/21 22:30 16 160/92 98 03/22/21 22:16 14 134/71 100 03/22/21 22:00 19 163/74 99 03/22/21 21:45 19 141/88 99 03/22/21 21:30 18 157/93 92 03/22/21 21:15 15 93/59 98 03/22/21 21:00 19 86/54 03/22/21 20:45 19 168/89 95 03/22/21 20:30 14 145/78 100 03/22/21 20:15 18 145/78 96 03/22/21 20:00 13 137/77 100 03/22/21 19:46 18 146/95 97 03/22/21 19:30 16 144/85 99 03/22/21 19:16 14 184/105 98 03/22/21 19:02 21 139/86 100 03/22/21 19:00 21 139/86 100 03/22/21 18:45 14 151/85 100 03/22/21 18:30 17 136/83 100 03/22/21 18:10 33 H 171/96 100 03/22/21 18:00 21 133/73 97 03/22/21 17:50 16 133/73 100 03/22/21 17:40 22 148/77 100 03/22/21 17:30 17 133/80 100 03/22/21 17:20 17 133/80 99 03/22/21 17:10 16 66/35 100 03/22/21 17:00 19 142/103 92 03/22/21 16:50 15 142/103 100 03/22/21 16:40 21 142/103 100 03/22/21 16:30 15 142/103 100 03/22/21 16:22 15 117/63 100 03/22/21 16:20 14 117/63 100 03/22/21 16:10 19 92/61 100 03/22/21 16:00 22 92/61 99 03/22/21 15:50 12 88/51 100 03/22/21 15:40 22 97/64 100 03/22/21 15:30 15 88/51 100 03/22/21 15:20 19 145/124 99 03/22/21 15:10 21 95/58 84 03/22/21 15:00 17 87/58 96 03/22/21 14:50 17 163/86 88 03/22/21 14:40 20 89/61 87 03/22/21 14:30 29 H 89/61 03/22/21 14:20 16 89/61 94 03/22/21 14:10 16 96/60 93 03/22/21 14:00 19 177/76 03/22/21 13:50 18 58/26 84 03/22/21 13:40 15 96/64 93 03/22/21 13:39 20 03/22/21 13:30 13 96/64 94 03/22/21 13:20 14 146/90 96 03/22/21 13:10 21 95/64 99 03/22/21 13:00 22 100 03/22/21 12:30 18 97/64 100 03/22/21 12:20 14 214/116 100 03/22/21 12:10 14 153/64 94 03/22/21 12:00 175/115 99 03/22/21 11:50 16 97/64 99 03/22/21 11:40 16 86/58 99 03/22/21 11:30 18 86/58 98 03/22/21 11:20 17 95/65 98 03/22/21 11:15 26 H 03/22/21 11:10 17 163/79 96 03/22/21 11:00 18 163/79 90 03/22/21 10:50 14 170/84 98 03/22/21 10:40 18 97/63 98 03/22/21 10:30 18 97/63 99 03/22/21 10:20 17 128/77 99 03/22/21 10:10 18 155/80 99 03/22/21 10:00 17 155/80 96 03/22/21 09:50 19 129/81 98 03/22/21 09:40 18 107/66 96 - Physical Examination General: Other (Intubated, on the vent) Neck: Positive: neck supple Cardiac: Positive: Regular Rhythm, Tachycardia Lungs: Positive: Wheezes Neuro: Positive: Other (Intubated, sedated on the vent) Abdomen: Positive: Soft Skin: Positive: Clear Extremities: Present: normal - Labs and Meds CBC 03/23/21 Range/Units 04:42 WBC 14.3 H (4.5-11.0) K/mm3 RBC 3.63 L (3.65-5.03) M/mm3 Hgb 7.6 L (10.1-14.3) gm/dl Hct 27.0 L (30.3-42.9) % Plt Count 567 H (140-440) K/mm3 Comprehensive Metabolic Panel 03/23/21 Range/Units 04:42 Sodium 141 (137-145) mmol/L Potassium 4.5 (3.6-5.0) mmol/L Chloride 94.6 L (98-107) mmol/L Carbon Dioxide 37 H (22-30) mmol/L BUN 27 H (7-17) mg/dL Creatinine 0.6 (0.6-1.2) mg/dL Glucose 311 H (65-100) mg/dL Calcium 8.6 (8.4-10.2) mg/dL
[2021-03-23] MEDS: DOCUSATE SODIUM 100 MG/10 ML ORAL LIQD PO SCH ×2 (09:33→22:27)
[2021-03-23] MEDS: METOPROLOL TARTRATE 25 MG TAB PO SCH ×3 (09:33→22:30)
[2021-03-23] MEDS: SENNOSIDES/DOCUSATE SODIUM 8.6/50 MG TAB FEEDTUBE SCH ×2 (09:33→22:28)
[2021-03-23] MEDS: FAMOTIDINE 20 MG TAB FEEDTUBE SCH ×2 (09:34→22:27)
[2021-03-23] MEDS ORDERED: MAGNESIUM HYDROXIDE (MOM) ORAL LIQD UDC PO NR (10:00)
--- NOTE | 2021-03-23 14:29 | Progress Note ---
<VINNIEDARLENE MichaelPorfirio - Last Filed: 03/23/21 14:32> Assessment and Plan Assessment and plan: This is a 50-year-old female with COPD with oxygen dependence, DM, severe anxiety, GERD, HLD, HTN and PAGE admitted with SVT and hypertensive urgency. Neuro: Hepatic/metabolic encephalopathy, h/o severe anxiety, depression -Admit ammonia 116, 03/09 ammonia 26 -Sedated with precedex and fentanyl gtt -versed and morphine PRN -RASS goal 0 to -1 -Avoid delirium -Maintain sleep-wake cycle -SAT when appropriate -Resume home cymbalta and buspar when appropriate -CT head on admit with no acute findings -Repeat CT head d/t AMS post extubation-> no acute events Cardio: Hypertensive emergency, s/p A. fib with RVR, s/p SVT, h/o HTN, HLD -Cardiology consulted, appreciate recommendations -PO metoprolol BID -Resume home statin -Blood pressure monitoring per protocol -Echocardiogram 10/2020 showed EF of 50 to 55%, mild diastolic dysfunction, trace to mild tricuspid regurgitation, mild pulmonary hypertension, RVSP 45 mmHg Resp : Acute on chronic respiratory failure, h/o COPD and PAGE -CCM consulted, appreciate recommendations -CTA chest shows no CT evidence of pulmonary embolism, small right and trace left pleural effusion, upper lobe predominant emphysema -Intubated on 03/17 with 7.00 ETT at 20 at the lips and extubated 03/22 but reintubated shortly after -A.m. vent settings: Assist control tidal volume 450, rate 18, PEEP 6, 60% FiO2 -See RT notes for titration -A.m. ABG and CXR noted -VAP bundle -SPO2 monitoring -Methylprednisone being weaned GI: Transaminitis (resolving), h/o chronic constipation -NTR consulted, appreciate recommendations -RUQ US shows right hydroureteronephrosis and possible gallbladder sludge or gallstones -Renal ultrasound shows mild right-sided hydronephrosis with parenchymal thinning and trace perinephric fluid. -PPI -BR: senakot S and colace -MOM x1 -24 hours +366 mL : Hypochlormia, mild right hydroureteronephrosis, -Trend BMP -FWF with TF -Strict I & Os -Wallis -Renal ultrasound shows mild right-sided hydronephrosis with parenchymal thinning and trace perinephric fluid. Endo: NAD -Avoid hypoglycemia -SSI -Accucheck q 6hrs -Lantus Heme: Anemia, Leukocytosis, h/o Microcytic anemia -Trend CBC -Transfuse for hbg <7 -s/p 1 unit prbc -SCDs to BLE while in bed -Lovenox subq ID: Gram positive cocci in tracheal aspirate -02/25 tracheal aspirate with few gram-positive cocci -s/p Levaquin (03/18-) -Trend WBC and fever curve The high probability of a clinically significant, sudden or life threatening deterioration of the [pulm/cv] system(s) required my full and direct attention, intervention and personal management. The aggregate critical care time was [60] minutes. This time is in addition to time spent performing reported procedures but includes the following: [x] Data Review and interpretation [x] Patient assessment and monitoring of vital signs [x] Documentation [x] Medication orders and management Disposition Plan: icu Total Time Spent with Patient (Minutes): 60 History Interval history: This is a 60-year-old female with COPD with oxygen dependence currently with palliative care, DM, former nicotine abuse, severe anxiety, GERD, HLD, HTN and PAGE presented to emergency department on 03/17 via EMS with complaints of shortness of breath. On arrival of EMS patient was found to be in SVT with a heart rate of about 200 and blood pressure to be quite elevated with systolic in 200s. She was given 6 mg of adenosine without significant changes subsequently given 12 mg of adenosine with improvement of her heart rate. Upon arrival to the emergency department patient was found to be in atrial fibrillation with RVR and dyspneic. Work-up in the emergency department revealed leukocytosis, lactic acidosis, transaminitis, hypoalbuminemia and a troponin leak. CXR, CT a chest and CT head were unremarkable. Patient was admitted to the hospitalist service with consults to [facility] and cardiology for further work-up of acute on chronic respiratory failure, SVT and hypertensive urgency. 03/18/2021: Patient is intubated and on vent support, Patient is in sinus tachycardia 03/19: COVID-19 PCR negative, remains on ventilatory support, Versed drip changed to propofol. No acute events reported overnight. Tracheal aspirate with few gram-positive Cocci. This afternoon, patient went in to the 150s, giving 500 mL NS bolus and fentanyl push to see if it pain related. If persists then will order prn Ativan per Dr. Gage recommendation. 03/20: Restarted on home metoprolol and abdominal ultrasound showed right hydronephrosis. Abd US shows right hydroureteronephrosis and will obtain a dedicated renal US. She seems to more comfortable on propofol and fentanyl 03/21: Patient's FiO2 had to be decreased overnight due to hypoxia and tachycardia. Hyperkalemia noted and given Kayexalate. 1 unit PRBC for hemoglobin 6.8. [facility] plans to extubate tomorrow. Increase in Lantus. 03/22: Transfuse one unit prbc, failed SBT in the AM d/t hypertension. [facility] extubated the patient but she was reintubated within [address] head orde red and pending read. Given kionex x2 for hyperkalemia 03/23: This morning patient was only on Precedex drip and overnight she had agitation, hypertension and tachycardia. RN instructed to place fentanyl drip. Increase in Lantus for better glucose control. Will remove Wallis today. Hospitalist Physical - Constitutional Vitals: Temp Pulse Resp BP Pulse Ox 98.1 F 72 18 108/69 99 03/23/21 12:00 03/23/21 12:15 03/23/21 12:15 03/23/21 12:15 03/23/21 12:15 General appearance: Present: no acute distress, other (sedated) - EENT Eyes: Present: PERRL, EOM intact ENT: hearing intact, clear oral mucosa, dentition normal - Neck Neck: Present: supple, normal ROM - Respiratory Respiratory effort: normal Respiratory: bilateral: diminished - Cardiovascular Rhythm: regular Heart Sounds: Present: S1 & S2. Absent: systolic murmur, diastolic murmur - Extremities Extremities: no ischemia, pulses intact, pulses symmetrical, No edema, normal temperature, normal color Peripheral Pulses: within normal limits - Abdominal General gastrointestinal: soft, non-tender, non-distended, normal bowel sounds - Integumentary Integumentary: Present: warm, dry - Psychiatric Psychiatric: other (sedated) - Neurologic Neurologic: CNII-XII intact, moves all extremities - Allied Health Allied health notes reviewed: nursing, RT HEART Score - HEART Score Troponin: Troponin T 0.015 ng/mL (0.00-0.029) 03/19/21 12:00 Results - Labs CBC & Chem 7: 03/23/21 04:42 03/23/21 04:42 Labs: Laboratory Last Values WBC 14.3 K/mm3 (4.5-11.0) H 03/23/21 04:42 RBC 3.63 M/mm3 (3.65-5.03) L 03/23/21 04:42 Hgb 7.6 gm/dl (10.1-14.3) L 03/23/21 04:42 Hct 27.0 % (30.3-42.9) L 03/23/21 04:42 MCV 74 fl (79-97) L 03/23/21 04:42 MCH 21 pg (28-32) L 03/23/21 04:42 MCHC 28 % (30-34) L 03/23/21 04:42 RDW 23.1 % (13.2-15.2) H 03/23/21 04:42 Plt Count 567 K/mm3 (140-440) H 03/23/21 04:42 Add Manual Diff Complete 03/19/21 04:59 Total Counted 100 03/19/21 04:59 Seg Neuts % (Manual) 91.0 % (40.0-70.0) H 03/19/21 04:59 Band Neutrophils % 9.0 % 03/19/21 04:59 Lymphocytes % (Manual) 31.0 % (13.4-35.0) 03/19/21 04:59 Reactive Lymphs % (Man) 5.0 % 03/19/21 04:59 Monocytes % (Manual) 9.0 % (0.0-7.3) H 03/19/21 04:59 Metamyelocytes % 1.0 % 03/19/21 04:59 Myelocytes % 3.0 % 03/19/21 04:59 Promyelocytes % 3.0 % 03/19/21 04:59 Nucleated RBC % 3.0 % (0.0-0.9) H 03/19/21 04:59 Seg Neutrophils # Man 9.0 K/mm3 (1.8-7.7) H 03/19/21 04:59 Band Neutrophils # 0.9 K/mm3 03/19/21 04:59 Lymphocytes # (Manual) 0.0 K/mm3 (1.2-5.4) L 03/19/21 04:59 Abs React Lymphs (Man) 0.0 K/mm3 03/19/21 04:59 Monocytes # (Manual) 0.0 K/mm3 (0.0-0.8) 03/19/21 04:59 Eosinophils # (Manual) 0.0 K/mm3 (0.0-0.4) 03/19/21 04:59 Basophils # (Manual) 0.0 K/mm3 (0.0-0.1) 03/19/21 04:59 Metamyelocytes # 0.0 K/mm3 03/19/21 04:59 Myelocytes # 0.0 K/mm3 03/19/21 04:59 Promyelocytes # 0.0 K/mm3 03/19/21 04:59 Blast Cells # 0.0 K/mm3 03/19/21 04:59 WBC Morphology Not Reportable 03/19/21 04:59 Hypersegmented Neuts Not Reportable 03/19/21 04:59 Hyposegmented Neuts Not Reportable 03/19/21 04:59 Hypogranular Neuts Not Reportable 03/19/21 04:59 Smudge Cells Not Reportable 03/19/21 04:59 Toxic Granulation Not Reportable 03/19/21 04:59 Toxic Vacuolation Not Reportable 03/19/21 04:59 Dohle Bodies Not Reportable 03/19/21 04:59 Pelger-Huet Anomaly Not Reportable 03/19/21 04:59 Florentino Rods Not Reportable 03/19/21 04:59 Platelet Estimate Consistent w auto 03/19/21 04:59 Clumped Platelets Not Reportable 03/19/21 04:59 Plt Clumps, EDTA Not Reportable 03/19/21 04:59 Large Platelets Few 03/19/21 04:59 Giant Platelets Not Reportable 03/19/21 04:59 Platelet Satelliting Not Reportable 03/19/21 04:59 Plt Morphology Comment Not Reportable 03/19/21 04:59 RBC Morphology Not Reportable 03/19/21 04:59 Dimorphic RBCs Not Reportable 03/19/21 04:59 Polychromasia Few 03/19/21 04:59 Hypochromasia 1+ 03/19/21 04:59 Poikilocytosis Not Reportable 03/19/21 04:59 Anisocytosis 1+ 03/19/21 04:59 Microcytosis 2+ 03/19/21 04:59 Macrocytosis Not Reportable 03/19/21 04:59 Spherocytes Not Reportable 03/19/21 04:59 Pappenheimer Bodies Not Reportable 03/19/21 04:59 Sickle Cells Not Reportable 03/19/21 04:59 Target Cells Not Reportable 03/19/21 04:59 Tear Drop Cells Not Reportable 03/19/21 04:59 Ovalocytes 1+ 03/19/21 04:59 Stomatocytes 1+ 03/17/21 17:36 Helmet Cells Not Reportable 03/19/21 04:59 [place] Bodies Not Reportable 03/19/21 04:59 [place] Rings Not Reportable 03/19/21 04:59 [place] Cells Not Reportable 03/19/21 04:59 Bite Cells Not Reportable 03/19/21 04:59 Crenated Cell Not Reportable 03/19/21 04:59 Elliptocytes Not Reportable 03/19/21 04:59 Acanthocytes (Spur) Not Reportable 03/19/21 04:59 Rouleaux Not Reportable 03/19/21 04:59 Hemoglobin C Crystals Not Reportable 03/19/21 04:59 Schistocytes Not Reportable 03/19/21 04:59 Malaria parasites Not Reportable 03/19/21 04:59 [place] Bodies Not Reportable 03/19/21 04:59 Hem Pathologist Commnt No 03/19/21 04:59 PT 12.6 Sec. (12.2-14.9) 03/17/21 17:37 INR 0.85 (0.87-1.13) L 03/17/21 17:37 APTT 23.3 Sec. (24.2-36.6) L 03/17/21 17:37 D-Dimer 947.92 ng/mlDDU (0-234) H 03/17/21 17:37 ABG pH 7.377 pH Units (7.350-7.450) 03/23/21 04:50 POC ABG pCO2 65.7 mmHg (32.0-48.0) H 03/22/21 09:45 ABG pCO2 72.7 mm Hg 03/23/21 04:50 POC ABG pO2 59.7 mmHg (83-108) L 03/22/21 09:45 ABG pO2 70.7 mm Hg (80.0-90.0) L 03/23/21 04:50 POC ABG HCO3 34.3 03/22/21 09:45 ABG HCO3 41.7 mmol/L (20.0-26.0) H 03/23/21 04:50 ABG O2 Saturation 98.8 % (95.0-99.0) 03/23/21 04:50 ABG O2 Content 7.8 (0.0-44) 03/23/21 04:50 POC ABG Base Excess 7.4 03/22/21 09:45 ABG Base Excess 15.2 mmol/L (-2.0-3.0) H 03/23/21 04:50 ABG Hemoglobin 5.6 gm/dl (12.0-16.0) L 03/23/21 04:50 ABG Oxyhemoglobin 86.3 (94-98) L 03/22/21 09:45 ABG Carboxyhemoglobin 1.7 % (0.0-5.0) 03/23/21 04:50 ABG Methemoglobin 0.3 % (0.0-1.5) 03/23/21 04:50 ABG Sodium 136.4 mmol/L (136.0-145.0) 03/22/21 09:45 ABG Potassium 4.7 mmol/L (3.40-4.50) H 03/22/21 09:45 ABG Chloride 94.0 mmol/L (98-107) L 03/22/21 09:45 ABG Glucose 208 mg/dL (65-95) H 03/22/21 09:45 Oxyhemoglobin 96.9 % (95.0-99.0) 03/23/21 04:50 Carboxyhemoglobin 1.2 (0.5-1.5) 03/22/21 09:45 FiO2 40 % 03/23/21 04:50 FiO2 % 40 03/22/21 09:45 Sodium 141 mmol/L (137-145) 03/23/21 04:42 Potassium 4.5 mmol/L (3.6-5.0) 03/23/21 04:42 Chloride 94.6 mmol/L (98-107) L 03/23/21 04:42 Carbon Dioxide 37 mmol/L (22-30) H 03/23/21 04:42 Anion Gap 14 mmol/L 03/23/21 04:42 BUN 27 mg/dL (7-17) H 03/23/21 04:42 Creatinine 0.6 mg/dL (0.6-1.2) 03/23/21 04:42 Estimated GFR > 60 ml/min 03/23/21 04:42 BUN/Creatinine Ratio 45 % 03/23/21 04:42 Glucose 311 mg/dL (65-100) H 03/23/21 04:42 POC Glucose 156 mg/dL (70-105) H 03/22/21 23:58 Lactic Acid 4.00 mmol/L (0.7-2.0) H* 03/17/21 23:36 Calcium 8.6 mg/dL (8.4-10.2) 03/23/21 04:42 Phosphorus 3.50 mg/dL (2.5-4.5) 03/21/21 09:28 Magnesium 2.40 mg/dL (1.7-2.3) H 03/21/21 09:28 Total Bilirubin 0.20 mg/dL (0.1-1.2) 03/21/21 09:28 Direct Bilirubin < 0.2 mg/dL (0-0.2) 03/19/21 12:00 Indirect Bilirubin 0.1 mg/dL 03/19/21 12:00 AST 32 units/L (5-40) 03/21/21 09:28 ALT 697 units/L (7-56) H 03/21/21 09:28 Alkaline Phosphatase 134 units/L (35-129) H 03/21/21 09:28 Ammonia 26.0 umol/L (25-60) 03/19/21 12:00 Troponin T 0.015 ng/mL (0.00-0.029) 03/19/21 12:00 NT-Pro-B Natriuret Pep 576.0 pg/mL (0-900) 03/17/21 17:36 Total Protein 5.8 g/dL (6.3-8.2) L 03/21/21 09:28 Albumin 3.4 g/dL (3.9-5) L 03/21/21 09:28 Albumin/Globulin Ratio 1.4 % 03/21/21 09:28 Triglycerides 189 mg/dL (2-149) H 03/22/21 04:39 Cholesterol 191 mg/dL (50-199) 03/17/21 17:36 LDL Cholesterol Direct 80 mg/dL (50-130) 03/17/21 17:36 HDL Cholesterol 73 mg/dL (40-59) H 03/17/21 17:36 Cholesterol/HDL Ratio 2.61 % 03/17/21 17:36 Amylase 78 units/L (27-131) 03/19/21 Unknown Lipase 12 units/L (13-60) L 03/19/21 Unknown TSH 3.510 mlU/mL (0.270-4.200) 03/17/21 22:57 Arterial Blood Glucose 208 mg/dL (65-95) H 03/22/21 09:45 Arterial Blood Ionized Calcium 4.7 mg/dL (4.6-5.3) 03/22/21 09:45 Urine Color Mayuri (Yellow) 03/17/21 19:42 Urine Turbidity Slightly-cloudy (Clear) 03/17/21 19:42 Urine pH 7.0 (5.0-7.0) 03/17/21 19:42 Ur Specific [place] 1.015 (1.003-1.030) 03/17/21 19:42 Urine Protein 100 mg/dl mg/dL (Negative) 03/17/21 19:42 Urine Glucose (UA) Neg mg/dL (Negative) 03/17/21 19:42 Urine Ketones 20 mg/dL (Negative) 03/17/21 19:42 Urine Blood Sm (Negative) 03/17/21 19:42 Urine Nitrite Neg (Negative) 03/17/21 19:42 Urine Bilirubin Neg (Negative) 03/17/21 19:42 Urine Urobilinogen 2.0 mg/dL (<2.0) 03/17/21 19:42 Ur Leukocyte Esterase Neg (Negative) 03/17/21 19:42 Urine WBC (Auto) 4.0 /HPF (0.0-6.0) 03/17/21 19:42 Urine RBC (Auto) 6.0 /HPF (0.0-6.0) 03/17/21 19:42 U Epithel Cells (Auto) 5.0 /HPF (0-13.0) 03/17/21 19:42 Urine Bacteria (Auto) 1+ /HPF (Negative) 03/17/21 19:42 Urine Mucus 1+ /HPF 03/17/21 19:42 Urine Yeast (Budding) Few /HPF 03/17/21 19:42 Acetaminophen 5.0 ug/mL (10.0-30.0) L 03/18/21 23:07 Coronavirus (PCR) Negative (Negative) 03/19/21 Unknown Blood Type A POSITIVE 03/21/21 14:08 Antibody Screen Negative 03/21/21 14:08 Crossmatch See Detail 03/21/21 14:08 Wallis/IV: Voiding Method Indwelling Catheter Active Medications - Current Medications Current Medications: Generic Name Dose Route Start Last Admin Trade Name Freq PRN Reason Stop Dose Admin Acetaminophen 650 mg 03/18/21 00:05 Acetaminophen 325 Mg Tab PO Q6H PRN Pain MILD(1-3)/Fever >100.5/TOVAR Albuterol 2.5 mg 03/22/21 08:00 Albuterol 2.5 Mg/3 Ml Nebu IH Q6H PRN Wheezing Lipase/Protease/Amylase 1 each 03/19/21 18:16 Lipase 10,500/Protease 25,000/Amylase 43,750 (Units) Dr Newman FEEDTUBE PRN PRN For Clogged Feeding Tube Atorvastatin Calcium 10 mg 03/19/21 22:00 03/22/21 22:03 Atorvastatin 10 Mg Tab PO 10 mg QHS BUTCH Administration Dextrose 0 ml 03/17/21 23:58 Dextrose 50% In Water (25gm) 50 Ml Syringe IV Q30MIN PRN Hypoglycemia Protocol Docusate Sodium 100 mg 03/23/21 10:00 03/23/21 09:33 Docusate Sodium 100 Mg/10 Ml Oral Liqd PO 100 mg BID BUTCH Administration Famotidine 20 mg 03/20/21 22:00 03/23/21 09:34 Famotidine 20 Mg Tab FEEDTUBE 20 mg BID BUTCH Administration Heparin Sodium (Porcine) 5,000 unit 03/18/21 06:00 03/23/21 14:00 Heparin 5,000 Unit/1 Ml Vial SUB-Q 5,000 unit Q8HR BUTCH Administration Hydrophilic Ointment 1 applic 03/17/21 17:35 Lip Therapy Vaseline TP Q2HR PRN Dry Lips Dexmedetomidine HCl 400 mcg/ 104 mls @ 4.306 mls/hr 03/21/21 13:00 03/23/21 13:10 Sodium Chloride IV 1.3 mcg/kg/hr TITRATE BUTCH 27.986 mls/hr Titration Protocol 0.2 MCG/KG/HR Fentanyl Citrate 2,000 mcg in 100 mls @ 4.14 mls/hr 03/22/21 15:00 03/23/21 10:28 Fentanyl Drip Premix IV 0 mcg/kg/hr TITR BUTCH 0 mls/hr Titration Protocol 1 MCG/KG/HR Insulin Glargine 20 units 03/22/21 22:00 03/23/21 05:59 Insulin Glargine 100 Units/Ml SUB-Q 20 units QHS BUTCH Administration Insulin Human Lispro 0 unit 03/19/21 12:00 03/23/21 12:04 Insulin Lispro 100 Unit/Ml SUB-Q 6 unit Q6HR [facility] Administration Protocol Magnesium Hydroxide 30 ml 03/18/21 00:05 Magnesium Hydroxide (Mom) Oral Liqd Udc PO Q4H PRN Constipation Methylprednisolone Sodium Succinate 40 mg 03/21/21 20:00 03/23/21 12:04 Methylprednisolone Sod Succinate 40 Mg/1 Ml Inj IV 40 mg Q8H [facility] Administration Metoprolol Tartrate 25 mg 03/20/21 22:00 03/23/21 11:58 Metoprolol Tartrate 25 Mg Tab PO Not Given BID [facility] Midazolam HCl 2 mg 03/22/21 14:39 03/23/21 06:25 Midazolam 2 Mg/2 Ml Inj IV 2 mg Q4HR PRN Administration Agitation Morphine Sulfate 2 mg 03/18/21 00:05 Morphine 2 Mg/1 Ml Inj IV Q4H PRN Pain, Moderate (4-6) Morphine Sulfate 4 mg 03/18/21 00:05 Morphine 4 Mg/1 Ml Inj IV Q4H PRN Pain , Severe (7-10) Multi-Ingred Cream/Lotion/Oil/Oint 1 applic 03/17/21 17:35 Mineral Oil/Petrolatum, White Ophth Oint 3.5 Gm OU Q4HR PRN Dry Eye(s) Senna/Docusate Sodium 1 tab 03/17/21 22:00 03/23/21 09:33 Sennosides/Docusate Sodium 8.6/50 Mg Tab FEEDTUBE 1 tab BID BUTCH Administration Simple Syrup 15 ml 03/19/21 18:16 Simple Syrup 15 Ml FEEDTUBE PRN PRN Hypoglycemia Simple Syrup 30 ml 03/19/21 18:16 Simple Syrup 15 Ml FEEDTUBE PRN PRN Hypoglycemia Sodium Bicarbonate 325 mg 03/19/21 18:16 Sodium Bicarbonate 325 Mg Tab FEEDTUBE PRN PRN For Clogged Feeding Tube Sodium Chloride 10 ml 03/18/21 10:00 03/23/21 11:58 Sodium Chloride 0.9% 10 Ml Flush Syringe IV Not Given BID BUTCH Sodium Chloride 10 ml 03/17/21 23:58 03/22/21 23:20 Sodium Chloride 0.9% 10 Ml Flush Syringe IV 10 ml PRN PRN Administration LINE FLUSH Nutrition/Malnutrition Assess - Dietary Evaluation Nutrition/Malnutrition Findings: Nutrition Notes Start: 03/18/21 09:46 Freq: Status: Active Protocol: Document 03/21/21 10:45 PAM (Rec: 03/21/21 11:07 PAM [id number]) Nutrition Notes Initial or Follow up Brief Note Other Pertinent Diagnosis R-Hydroureteronephrosis Current Diet TF-Promote @ 70 ml/hr (since D 03/19). Labs/Tests 03/21: K 5.1, Cl 94.4, CO2 33, BUN 32, Glu 319, Mg 2.4, ALT 697, AlkPhos 134, Tpro 5.8, Alb 3.4. Pertinent Medications 03/21: Insulin, Propofol 1000 mg in 100 ml @ 4.5 ml/hr (119 Kcal.), others nutritionally unremarkable. Height 5 ft 6 in Weight 82.8 kg [place] Body Weight (kg) 59.09 BMI 29.5 Weight change and time frame No body weight change reported . Weight Status Overweight Subjective/Other Information RD consult for TF tolerance. TF continues as prescribed. Mechanical ventilation continues. Nutrition Intervention Nutrition Support: Continue Promote @ 70 ml/hr. Flush: 50 ml water Q 4 hr. Goal #1 Provide at least 75% of energy /protein needs through Enteral Feeding during LOS. Follow-Up By: 03/23/21 Additional Comments Continue monitoring TF tolerance, and BM. <LISSET VIDES O - Last Filed: 03/23/21 20:42> Assessment and Plan Assessment and plan: I saw and evaluated the patient. I agree with the findings and the plan of care as documented in the Nurse Practitioner's~note, with the following corrections and additions. Patient with acute resp failure, intubated on ventilator. Hospitalist Physical - Constitutional Vitals: Temp Pulse Resp BP Pulse Ox 98.3 F 100 H 15 137/64 97 03/23/21 20:00 03/23/21 19:40 03/23/21 18:00 03/23/21 18:00 03/23/21 19:40 HEART Score - HEART Score Troponin: Troponin T 0.015 ng/mL (0.00-0.029) 03/19/21 12:00 Results - Labs CBC & Chem 7: 03/23/21 04:42 03/23/21 04:42 Labs: Laboratory Last Values WBC 14.3 K/mm3 (4.5-11.0) H 03/23/21 04:42 RBC 3.63 M/mm3 (3.65-5.03) L 03/23/21 04:42 Hgb 7.6 gm/dl (10.1-14.3) L 03/23/21 04:42 Hct 27.0 % (30.3-42.9) L 03/23/21 04:42 MCV 74 fl (79-97) L 03/23/21 04:42 MCH 21 pg (28-32) L 03/23/21 04:42 MCHC 28 % (30-34) L 03/23/21 04:42 RDW 23.1 % (13.2-15.2) H 03/23/21 04:42 Plt Count 567 K/mm3 (140-440) H 03/23/21 04:42 Add Manual Diff Complete 03/19/21 04:59 Total Counted 100 03/19/21 04:59 Seg Neuts % (Manual) 91.0 % (40.0-70.0) H 03/19/21 04:59 Band Neutrophils % 9.0 % 03/19/21 04:59 Lymphocytes % (Manual) 31.0 % (13.4-35.0) 03/19/21 04:59 Reactive Lymphs % (Man) 5.0 % 03/19/21 04:59 Monocytes % (Manual) 9.0 % (0.0-7.3) H 03/19/21 04:59 Metamyelocytes % 1.0 % 03/19/21 04:59 Myelocytes % 3.0 % 03/19/21 04:59 Promyelocytes % 3.0 % 03/19/21 04:59 Nucleated RBC % 3.0 % (0.0-0.9) H 03/19/21 04:59 Seg Neutrophils # Man 9.0 K/mm3 (1.8-7.7) H 03/19/21 04:59 Band Neutrophils # 0.9 K/mm3 03/19/21 04:59 Lymphocytes # (Manual) 0.0 K/mm3 (1.2-5.4) L 03/19/21 04:59 Abs React Lymphs (Man) 0.0 K/mm3 03/19/21 04:59 Monocytes # (Manual) 0.0 K/mm3 (0.0-0.8) 03/19/21 04:59 Eosinophils # (Manual) 0.0 K/mm3 (0.0-0.4) 03/19/21 04:59 Basophils # (Manual) 0.0 K/mm3 (0.0-0.1) 03/19/21 04:59 Metamyelocytes # 0.0 K/mm3 03/19/21 04:59 Myelocytes # 0.0 K/mm3 03/19/21 04:59 Promyelocytes # 0.0 K/mm3 03/19/21 04:59 Blast Cells # 0.0 K/mm3 03/19/21 04:59 WBC Morphology Not Reportable 03/19/21 04:59 Hypersegmented Neuts Not Reportable 03/19/21 04:59 Hyposegmented Neuts Not Reportable 03/19/21 04:59 Hypogranular Neuts Not Reportable 03/19/21 04:59 Smudge Cells Not Reportable 03/19/21 04:59 Toxic Granulation Not Reportable 03/19/21 04:59 Toxic Vacuolation Not Reportable 03/19/21 04:59 Dohle Bodies Not Reportable 03/19/21 04:59 Pelger-Huet Anomaly Not Reportable 03/19/21 04:59 Florentino Rods Not Reportable 03/19/21 04:59 Platelet Estimate Consistent w auto 03/19/21 04:59 Clumped Platelets Not Reportable 03/19/21 04:59 Plt Clumps, EDTA Not Reportable 03/19/21 04:59 Large Platelets Few 03/19/21 04:59 Giant Platelets Not Reportable 03/19/21 04:59 Platelet Satelliting Not Reportable 03/19/21 04:59 Plt Morphology Comment Not Reportable 03/19/21 04:59 RBC Morphology Not Reportable 03/19/21 04:59 Dimorphic RBCs Not Reportable 03/19/21 04:59 Polychromasia Few 03/19/21 04:59 Hypochromasia 1+ 03/19/21 04:59 Poikilocytosis Not Reportable 03/19/21 04:59 Anisocytosis 1+ 03/19/21 04:59 Microcytosis 2+ 03/19/21 04:59 Macrocytosis Not Reportable 03/19/21 04:59 Spherocytes Not Reportable 03/19/21 04:59 Pappenheimer Bodies Not Reportable 03/19/21 04:59 Sickle Cells Not Reportable 03/19/21 04:59 Target Cells Not Reportable 03/19/21 04:59 Tear Drop Cells Not Reportable 03/19/21 04:59 Ovalocytes 1+ 03/19/21 04:59 Stomatocytes 1+ 03/17/21 17:36 Helmet Cells Not Reportable 03/19/21 04:59 [place] Bodies Not Reportable 03/19/21 04:59 [place] Rings Not Reportable 03/19/21 04:59 [place] Cells Not Reportable 03/19/21 04:59 Bite Cells Not Reportable 03/19/21 04:59 Crenated Cell Not Reportable 03/19/21 04:59 Elliptocytes Not Reportable 03/19/21 04:59 Acanthocytes (Spur) Not Reportable 03/19/21 04:59 Rouleaux Not Reportable 03/19/21 04:59 Hemoglobin C Crystals Not Reportable 03/19/21 04:59 Schistocytes Not Reportable 03/19/21 04:59 Malaria parasites Not Reportable 03/19/21 04:59 [place] Bodies Not Reportable 03/19/21 04:59 Hem Pathologist Commnt No 03/19/21 04:59 PT 12.6 Sec. (12.2-14.9) 03/17/21 17:37 INR 0.85 (0.87-1.13) L 03/17/21 17:37 APTT 23.3 Sec. (24.2-36.6) L 03/17/21 17:37 D-Dimer 947.92 ng/mlDDU (0-234) H 03/17/21 17:37 ABG pH 7.377 pH Units (7.350-7.450) 03/23/21 04:50 POC ABG pCO2 65.7 mmHg (32.0-48.0) H 03/22/21 09:45 ABG pCO2 72.7 mm Hg 03/23/21 04:50 POC ABG pO2 59.7 mmHg (83-108) L 03/22/21 09:45 ABG pO2 70.7 mm Hg (80.0-90.0) L 03/23/21 04:50 POC ABG HCO3 34.3 03/22/21 09:45 ABG HCO3 41.7 mmol/L (20.0-26.0) H 03/23/21 04:50 ABG O2 Saturation 98.8 % (95.0-99.0) 03/23/21 04:50 ABG O2 Content 7.8 (0.0-44) 03/23/21 04:50 POC ABG Base Excess 7.4 03/22/21 09:45 ABG Base Excess 15.2 mmol/L (-2.0-3.0) H 03/23/21 04:50 ABG Hemoglobin 5.6 gm/dl (12.0-16.0) L 03/23/21 04:50 ABG Oxyhemoglobin 86.3 (94-98) L 03/22/21 09:45 ABG Carboxyhemoglobin 1.7 % (0.0-5.0) 03/23/21 04:50 ABG Methemoglobin 0.3 % (0.0-1.5) 03/23/21 04:50 ABG Sodium 136.4 mmol/L (136.0-145.0) 03/22/21 09:45 ABG Potassium 4.7 mmol/L (3.40-4.50) H 03/22/21 09:45 ABG Chloride 94.0 mmol/L (98-107) L 03/22/21 09:45 ABG Glucose 208 mg/dL (65-95) H 03/22/21 09:45 Oxyhemoglobin 96.9 % (95.0-99.0) 03/23/21 04:50 Carboxyhemoglobin 1.2 (0.5-1.5) 03/22/21 09:45 FiO2 40 % 03/23/21 04:50 FiO2 % 40 03/22/21 09:45 Sodium 141 mmol/L (137-145) 03/23/21 04:42 Potassium 4.5 mmol/L (3.6-5.0) 03/23/21 04:42 Chloride 94.6 mmol/L (98-107) L 03/23/21 04:42 Carbon Dioxide 37 mmol/L (22-30) H 03/23/21 04:42 Anion Gap 14 mmol/L 03/23/21 04:42 BUN 27 mg/dL (7-17) H 03/23/21 04:42 Creatinine 0.6 mg/dL (0.6-1.2) 03/23/21 04:42 Estimated GFR > 60 ml/min 03/23/21 04:42 BUN/Creatinine Ratio 45 % 03/23/21 04:42 Glucose 311 mg/dL (65-100) H 03/23/21 04:42 POC Glucose 156 mg/dL (70-105) H 03/22/21 23:58 Lactic Acid 4.00 mmol/L (0.7-2.0) H* 03/17/21 23:36 Calcium 8.6 mg/dL (8.4-10.2) 03/23/21 04:42 Phosphorus 3.50 mg/dL (2.5-4.5) 03/21/21 09:28 Magnesium 2.40 mg/dL (1.7-2.3) H 03/21/21 09:28 Total Bilirubin 0.20 mg/dL (0.1-1.2) 03/21/21 09:28 Direct Bilirubin < 0.2 mg/dL (0-0.2) 03/19/21 12:00 Indirect Bilirubin 0.1 mg/dL 03/19/21 12:00 AST 32 units/L (5-40) 03/21/21 09:28 ALT 697 units/L (7-56) H 03/21/21 09:28 Alkaline Phosphatase 134 units/L (35-129) H 03/21/21 09:28 Ammonia 26.0 umol/L (25-60) 03/19/21 12:00 Troponin T 0.015 ng/mL (0.00-0.029) 03/19/21 12:00 NT-Pro-B Natriuret Pep 576.0 pg/mL (0-900) 03/17/21 17:36 Total Protein 5.8 g/dL (6.3-8.2) L 03/21/21 09:28 Albumin 3.4 g/dL (3.9-5) L 03/21/21 09:28 Albumin/Globulin Ratio 1.4 % 03/21/21 09:28 Triglycerides 189 mg/dL (2-149) H 03/22/21 04:39 Cholesterol 191 mg/dL (50-199) 03/17/21 17:36 LDL Cholesterol Direct 80 mg/dL (50-130) 03/17/21 17:36 HDL Cholesterol 73 mg/dL (40-59) H 03/17/21 17:36 Cholesterol/HDL Ratio 2.61 % 03/17/21 17:36 Amylase 78 units/L (27-131) 03/19/21 Unknown Lipase 12 units/L (13-60) L 03/19/21 Unknown TSH 3.510 mlU/mL (0.270-4.200) 03/17/21 22:57 Arterial Blood Glucose 208 mg/dL (65-95) H 03/22/21 09:45 Arterial Blood Ionized Calcium 4.7 mg/dL (4.6-5.3) 03/22/21 09:45 Urine Color [place] (Yellow) 03/17/21 19:42 Urine Turbidity Slightly-cloudy (Clear) 03/17/21 19:42 Urine pH 7.0 (5.0-7.0) 03/17/21 19:42 Ur Specific [place] 1.015 (1.003-1.030) 03/17/21 19:42 Urine Protein 100 mg/dl mg/dL (Negative) 03/17/21 19:42 Urine Glucose (UA) Neg mg/dL (Negative) 03/17/21 19:42 Urine Ketones 20 mg/dL (Negative) 03/17/21 19:42 Urine Blood Sm (Negative) 03/17/21 19:42 Urine Nitrite Neg (Negative) 03/17/21 19:42 Urine Bilirubin Neg (Negative) 03/17/21 19:42 Urine Urobilinogen 2.0 mg/dL (<2.0) 03/17/21 19:42 Ur Leukocyte Esterase Neg (Negative) 03/17/21 19:42 Urine WBC (Auto) 4.0 /HPF (0.0-6.0) 03/17/21 19:42 Urine RBC (Auto) 6.0 /HPF (0.0-6.0) 03/17/21 19:42 U Epithel Cells (Auto) 5.0 /HPF (0-13.0) 03/17/21 19:42 Urine Bacteria (Auto) 1+ /HPF (Negative) 03/17/21 19:42 Urine Mucus 1+ /HPF 03/17/21 19:42 Urine Yeast (Budding) Few /HPF 03/17/21 19:42 Acetaminophen 5.0 ug/mL (10.0-30.0) L 03/18/21 23:07 Coronavirus (PCR) Negative (Negative) 03/19/21 Unknown Blood Type A POSITIVE 03/21/21 14:08 Antibody Screen Negative 03/21/21 14:08 Crossmatch See Detail 03/21/21 14:08 [place]/IV: Voiding Method Indwelling Catheter Active Medications - Current Medications Current Medications: Generic Name Dose Route Start Last Admin Trade Name Freq PRN Reason Stop Dose Admin Acetaminophen 650 mg 03/18/21 00:05 Acetaminophen 325 Mg Tab PO Q6H PRN Pain MILD(1-3)/Fever >100.5/TOVAR Albuterol 2.5 mg 03/22/21 08:00 Albuterol 2.5 Mg/3 Ml Nebu IH Q6H PRN Wheezing Lipase/Protease/Amylase 1 each 03/19/21 18:16 Lipase 10,500/Protease 25,000/Amylase 43,750 (Units) Dr Newman FEEDTUBE PRN PRN For Clogged Feeding Tube Atorvastatin Calcium 10 mg 03/19/21 22:00 03/22/21 22:03 Atorvastatin 10 Mg Tab PO 10 mg QHS BUTCH Administration Dextrose 0 ml 03/17/21 23:58 Dextrose 50% In Water (25gm) 50 Ml Syringe IV Q30MIN PRN Hypoglycemia Protocol Docusate Sodium 100 mg 03/23/21 10:00 03/23/21 09:33 Docusate Sodium 100 Mg/10 Ml Oral Liqd PO 100 mg BID BUTCH Administration Famotidine 20 mg 03/20/21 22:00 03/23/21 09:34 Famotidine 20 Mg Tab FEEDTUBE 20 mg BID BUTCH Administration Heparin Sodium (Porcine) 5,000 unit 03/18/21 06:00 03/23/21 14:00 Heparin 5,000 Unit/1 Ml Vial SUB-Q 5,000 unit Q8HR BUTCH Administration Hydrophilic Ointment 1 applic 03/17/21 17:35 Lip Therapy Vaseline TP Q2HR PRN Dry Lips Dexmedetomidine HCl 400 mcg/ 104 mls @ 4.306 mls/hr 03/21/21 13:00 03/23/21 20:10 Sodium Chloride IV 1.3 mcg/kg/hr TITRATE BUTCH 27.986 mls/hr Administration Protocol 0.2 MCG/KG/HR Fentanyl Citrate 2,000 mcg in 100 mls @ 4.14 mls/hr 03/22/21 15:00 03/23/21 10:28 Fentanyl Drip Premix IV 0 mcg/kg/hr TITR BUTCH 0 mls/hr Titration Protocol 1 MCG/KG/HR Insulin Glargine 20 units 03/22/21 22:00 03/23/21 05:59 Insulin Glargine 100 Units/Ml SUB-Q 20 units QHS BUTCH Administration Insulin Human Lispro 0 unit 03/19/21 12:00 03/23/21 17:23 Insulin Lispro 100 Unit/Ml SUB-Q 4 unit Q6HR BUTCH Administration Protocol Magnesium Hydroxide 30 ml 03/18/21 00:05 Magnesium Hydroxide (Mom) Oral Liqd Udc PO Q4H PRN Constipation Methylprednisolone Sodium Succinate 40 mg 03/21/21 20:00 03/23/21 12:04 Methylprednisolone Sod Succinate 40 Mg/1 Ml Inj IV 40 mg Q8H BUTCH Administration Metoprolol Tartrate 25 mg 03/20/21 22:00 03/23/21 11:58 Metoprolol Tartrate 25 Mg Tab PO Not Given BID BUTCH Midazolam HCl 2 mg 03/22/21 14:39 03/23/21 06:25 Midazolam 2 Mg/2 Ml Inj IV 2 mg Q4HR PRN Administration Agitation Morphine Sulfate 2 mg 03/18/21 00:05 Morphine 2 Mg/1 Ml Inj IV Q4H PRN Pain, Moderate (4-6) Morphine Sulfate 4 mg 03/18/21 00:05 Morphine 4 Mg/1 Ml Inj IV Q4H PRN Pain , Severe (7-10) Multi-Ingred Cream/Lotion/Oil/Oint 1 applic 03/17/21 17:35 Mineral Oil/Petrolatum, White Ophth Oint 3.5 Gm OU Q4HR PRN Dry Eye(s) Senna/Docusate Sodium 1 tab 03/17/21 22:00 03/23/21 09:33 Sennosides/Docusate Sodium 8.6/50 Mg Tab FEEDTUBE 1 tab BID BUTCH Administration Simple Syrup 15 ml 03/19/21 18:16 Simple Syrup 15 Ml FEEDTUBE PRN PRN Hypoglycemia Simple Syrup 30 ml 03/19/21 18:16 Simple Syrup 15 Ml FEEDTUBE PRN PRN Hypoglycemia Sodium Bicarbonate 325 mg 03/19/21 18:16 Sodium Bicarbonate 325 Mg Tab FEEDTUBE PRN PRN For Clogged Feeding Tube Sodium Chloride 10 ml 03/18/21 10:00 03/23/21 11:58 Sodium Chloride 0.9% 10 Ml Flush Syringe IV Not Given BID BUTCH Sodium Chloride 10 ml 03/17/21 23:58 03/22/21 23:20 Sodium Chloride 0.9% 10 Ml Flush Syringe IV 10 ml PRN PRN Administration LINE FLUSH Nutrition/Malnutrition Assess - Dietary Evaluation Nutrition/Malnutrition Findings: Nutrition Notes Start: 03/18/21 09:46 Freq: Status: Active Protocol: Document 03/23/21 18:25 PAM (Rec: 03/23/21 18:30 PAM [email or web address]) Nutrition Notes Initial or Follow up Brief Note Current Diet TF-Promote @ 70 ml/hr (since D 03/19). Weight change and time frame No body weight change reported . Subjective/Other Information RD consult for TF tolerance. TF continues as prescribed. Percent of energy/protein needs met: Prescribed Promote @ 70 ml/hr provides for energy/protein needs (1,680 Kcal/105 g) during LOS. #1 Nutrition Diagnosis Inadequate oral intake Diagnosis Progress(for reassessment Continues documentation) Nutrition Intervention Nutrition Support: Continue Promote @ 70 ml/hr. Flush: 50 ml water Q 4 hr. Goal #1 Provide at least 75% of energy /protein needs through Enteral Feeding during LOS. Follow-Up By: 03/30/21 Additional Comments Continue monitoring TF tolerance, and BM.
--- NOTE | 2021-03-23 23:21 | Progress Note ---
Assessment and Plan Imp: 1. Centriobular emphysema 2. Acute bronchitis 3. COPD exac. 4. A/C respiratory failure, hypoxia and hypercapnea Rec: 1. Cont. Solumedrol IV same dose 2. Add Budesonide/Brovana BID 3. On Precedex 4. Daily SAT/SBT 5. Patient with very severe COPD based on office PFTs; even with a tracheostomy she may have difficulty weaning from the ventilator; consider another trial of extubation directly to BIPAP in the coming week; prognosis is guarded to poor 6. TFs, GI/DVT PPx 7. CCt 31 minutes No family present Subjective Date of service: 03/23/21 Principal diagnosis: Atrial fibrillation with RVR, respiratory failure Interval history: No events. On Ventilator. Sedated. Active Medications Acetaminophen (Acetaminophen 325 Mg Tab) 650 mg PO Q6H PRN PRN Reason: Pain MILD(1-3)/Fever >100.5/TOVAR Albuterol (Albuterol 2.5 Mg/3 Ml Nebu) 2.5 mg IH Q6H PRN PRN Reason: Wheezing Lipase/Protease/Amylase (Lipase 10,500/Protease 25,000/Amylase 43,750 (Units) Dr Newman) 1 each FEEDTUBE PRN PRN PRN Reason: For Clogged Feeding Tube Arformoterol Tartrate (Arformoterol 15 Mcg/2 Ml Nebu) 15 mcg [facility] Q12HRT [facility] Atorvastatin Calcium (Atorvastatin 10 Mg Tab) 10 mg PO QHS [facility] Last Admin: 03/23/21 22:27 Dose: 10 mg Documented by: Budesonide (Budesonide 0.5 Mg/2 Ml Nebu) 0.5 mg IH Q12HRT [facility] Dextrose (Dextrose 50% In Water (25gm) 50 Ml Syringe) 0 ml IV Q30MIN PRN; Protocol PRN Reason: Hypoglycemia Docusate Sodium (Docusate Sodium 100 Mg/10 Ml Oral Liqd) 100 mg PO BID [facility] Last Admin: 03/24/21 09:36 Dose: 100 mg Documented by: Famotidine (Famotidine 20 Mg Tab) 20 mg FEEDTUBE BID [facility] Last Admin: 03/24/21 09:36 Dose: 20 mg Documented by: Heparin Sodium (Porcine) (Heparin 5,000 Unit/1 Ml Vial) 5,000 unit SUB-Q Q8HR [facility] Last Admin: 03/24/21 06:22 Dose: 5,000 unit Documented by: Hydrophilic Ointment (Lip Therapy Vaseline) 1 applic TP Q2HR PRN PRN Reason: Dry Lips Dexmedetomidine HCl 400 mcg/ (Sodium Chloride) 104 mls @ 4.306 mls/hr IV TITRATE [facility]; Protocol Last Admin: 03/24/21 06:22 Dose: 1.3 mcg/kg/hr, 27.986 mls/hr Documented by: Fentanyl Citrate (Fentanyl Drip Premix) 2,000 mcg in 100 mls @ 4.14 mls/hr IV TITR [facility]; Protocol Last Titration: 03/24/21 08:20 Dose: 1 mcg/kg/hr, 4.14 mls/hr Documented by: Insulin Glargine (Insulin Glargine 100 Units/Ml) 20 units SUB-Q QHS [facility] Last Admin: 03/23/21 22:34 Dose: 20 units Documented by: Insulin Human Lispro (Insulin Lispro 100 Unit/Ml) 0 unit SUB-Q Q6HR [facility]; Protocol Last Admin: 03/24/21 06:21 Dose: 8 unit Documented by: Magnesium Hydroxide (Magnesium Hydroxide (Mom) Oral Liqd Udc) 30 ml PO Q4H PRN PRN Reason: Constipation Last Admin: 03/24/21 09:36 Dose: 30 ml Documented by: Methylprednisolone Sodium Succinate (Methylprednisolone Sod Succinate 40 Mg/1 Ml Inj) 40 mg IV Q8H [facility] Last Admin: 03/24/21 06:22 Dose: 40 mg Documented by: Metoprolol Tartrate (Metoprolol Tartrate 25 Mg Tab) 25 mg PO BID [facility] Last Admin: 03/24/21 09:36 Dose: 25 mg Documented by: Midazolam HCl (Midazolam 2 Mg/2 Ml Inj) 2 mg IV Q4HR PRN PRN Reason: Agitation Last Admin: 03/23/21 06:25 Dose: 2 mg Documented by: Morphine Sulfate (Morphine 2 Mg/1 Ml Inj) 2 mg IV Q4H PRN PRN Reason: Pain, Moderate (4-6) Morphine Sulfate (Morphine 4 Mg/1 Ml Inj) 4 mg IV Q4H PRN PRN Reason: Pain , Severe (7-10) Multi-Ingred Cream/Lotion/Oil/Oint (Mineral Oil/Petrolatum, White Ophth Oint 3.5 Gm) 1 applic OU Q4HR PRN PRN Reason: Dry Eye(s) Senna/Docusate Sodium (Sennosides/Docusate Sodium 8.6/50 Mg Tab) 1 tab FEEDTUBE BID [facility] Last Admin: 03/24/21 09:36 Dose: 1 tab Documented by: Simple Syrup (Simple Syrup 15 Ml) 15 ml FEEDTUBE PRN PRN PRN Reason: Hypoglycemia Simple Syrup (Simple Syrup 15 Ml) 30 ml FEEDTUBE PRN PRN PRN Reason: Hypoglycemia Sodium Bicarbonate (Sodium Bicarbonate 325 Mg Tab) 325 mg FEEDTUBE PRN PRN PRN Reason: For Clogged Feeding Tube Sodium Chloride (Sodium Chloride 0.9% 10 Ml Flush Syringe) 10 ml IV BID [facility] Last Admin: 03/23/21 11:58 Dose: Not Given Documented by: Sodium Chloride (Sodium Chloride 0.9% 10 Ml Flush Syringe) 10 ml IV PRN PRN PRN Reason: LINE FLUSH Last Admin: 03/22/21 23:20 Dose: 10 ml Documented by: Objective Vital Signs - 12hr 03/23/21 03/23/21 03/23/21 11:30 11:45 12:00 Temperature 98.1 F Pulse Rate 80 73 72 Pulse Rate [ 72 From Monitor] Respiratory 19 17 18 Rate Blood Pressure 121/76 119/62 118/64 O2 Sat by Pulse 98 99 100 Oximetry 03/23/21 03/23/21 03/23/21 12:15 12:24 12:30 Temperature Pulse Rate 72 110 H 95 H Pulse Rate [ From Monitor] Respiratory 18 16 Rate Blood Pressure 108/69 108/69 108/69 O2 Sat by Pulse 99 95 96 Oximetry 03/23/21 03/23/21 03/23/21 12:46 13:00 13:15 Temperature Pulse Rate 90 90 88 Pulse Rate [ From Monitor] Respiratory 15 16 15 Rate Blood Pressure 177/117 158/83 144/76 O2 Sat by Pulse 97 97 98 Oximetry 03/23/21 03/23/21 03/23/21 13:30 13:45 14:00 Temperature Pulse Rate 86 89 89 Pulse Rate [ From Monitor] Respiratory 16 18 21 Rate Blood Pressure 185/117 148/77 139/75 O2 Sat by Pulse 97 98 99 Oximetry 03/23/21 03/23/21 03/23/21 14:15 14:30 14:46 Temperature Pulse Rate 76 90 86 Pulse Rate [ From Monitor] Respiratory 17 14 10 L Rate Blood Pressure 128/64 130/84 133/101 O2 Sat by Pulse 99 99 97 Oximetry 03/23/21 03/23/21 03/23/21 15:00 15:15 15:30 Temperature Pulse Rate 97 H 91 H 85 Pulse Rate [ From Monitor] Respiratory 22 20 20 Rate Blood Pressure 168/93 146/85 155/75 O2 Sat by Pulse 95 96 97 Oximetry 03/23/21 03/23/21 03/23/21 15:45 16:00 16:15 Temperature 98.3 F Pulse Rate 116 H 112 H 88 Pulse Rate [ 112 H From Monitor] Respiratory 24 33 H 21 Rate Blood Pressure 131/108 163/101 148/71 O2 Sat by Pulse 95 94 97 Oximetry 03/23/21 03/23/21 03/23/21 16:30 16:45 16:58 Temperature Pulse Rate 85 74 77 Pulse Rate [ From Monitor] Respiratory 19 19 Rate Blood Pressure 156/78 131/58 131/58 O2 Sat by Pulse 98 99 98 Oximetry 03/23/21 03/23/21 03/23/21 17:00 17:16 17:30 Temperature Pulse Rate 85 101 H 94 H Pulse Rate [ From Monitor] Respiratory 14 23 15 Rate Blood Pressure 133/68 181/85 164/75 O2 Sat by Pulse 99 97 98 Oximetry 03/23/21 03/23/21 03/23/21 17:45 18:00 19:40 Temperature Pulse Rate 89 82 100 H Pulse Rate [ From Monitor] Respiratory 16 15 Rate Blood Pressure 148/72 137/64 O2 Sat by Pulse 98 99 97 Oximetry 03/23/21 03/23/21 20:00 22:30 Temperature 98.3 F Pulse Rate 67 Pulse Rate [ From Monitor] Respiratory Rate Blood Pressure 142/63 O2 Sat by Pulse Oximetry Constitutional: other (critically ill on vent, sedated) Eyes: non-icteric ENT: oropharynx moist Neck: supple Effort: normal Ascultation: Bilateral: diminished breath sounds Cardiovascular: regular rate and rhythm (no mrg) Gastrointestinal: normoactive bowel sounds, soft, non-tender, non-distended Extremities: no cyanosis, no edema, pink and warm Neurologic: unable to assess Psychiatric: other (unable to assess) CBC and BMP: 03/24/21 08:03 03/24/21 08:03 ABG, PT/INR, D-dimer: ABG ABG pH 7.377 pH Units (7.350-7.450) 03/23/21 04:50 POC ABG pCO2 65.7 mmHg (32.0-48.0) H 03/22/21 09:45 ABG pCO2 72.7 mm Hg 03/23/21 04:50 POC ABG pO2 59.7 mmHg (83-108) L 03/22/21 09:45 ABG pO2 70.7 mm Hg (80.0-90.0) L 03/23/21 04:50 POC ABG HCO3 34.3 03/22/21 09:45 ABG O2 Saturation 98.8 % (95.0-99.0) 03/23/21 04:50 PT/INR, D-dimer PT 12.6 Sec. (12.2-14.9) 03/17/21 17:37 INR 0.85 (0.87-1.13) L 03/17/21 17:37 D-Dimer 947.92 ng/mlDDU (0-234) H 03/17/21 17:37 Abnormal lab findings: Abnormal Labs 03/17/21 03/17/21 03/17/21 17:36 17:36 17:37 WBC 13.8 H RBC 3.48 L Hgb 7.0 L Hct 26.2 L MCV 75 L MCH 20 L MCHC 27 L RDW 25.4 H Plt Count Seg Neuts % (Manual) Monocytes % (Manual) Nucleated RBC % 7.0 H Seg Neutrophils # Man 8.7 H Lymphocytes # (Manual) INR 0.85 L APTT 23.3 L D-Dimer 947.92 H ABG pH POC ABG pCO2 POC ABG pO2 ABG pO2 ABG HCO3 ABG O2 Saturation ABG Base Excess ABG Hemoglobin ABG Oxyhemoglobin ABG Potassium ABG Chloride ABG Glucose Oxyhemoglobin Potassium Chloride 88.2 L Carbon Dioxide 38 H BUN Glucose 129 H POC Glucose Lactic Acid Magnesium AST 177 H ALT 251 H Alkaline Phosphatase Ammonia Troponin T 0.036 H Total Protein 5.9 L Albumin 3.8 L Triglycerides 173 H HDL Cholesterol 73 H Lipase Arterial Blood Glucose Acetaminophen Crossmatch 03/17/21 03/17/21 03/17/21 18:15 18:40 18:40 WBC RBC Hgb Hct MCV MCH MCHC RDW Plt Count Seg Neuts % (Manual) Monocytes % (Manual) Nucleated RBC % Seg Neutrophils # Man Lymphocytes # (Manual) INR APTT D-Dimer ABG pH POC ABG pCO2 POC ABG pO2 ABG pO2 94.4 H ABG HCO3 44.8 H ABG O2 Saturation ABG Base Excess 16.6 H ABG Hemoglobin ABG Oxyhemoglobin ABG Potassium ABG Chloride ABG Glucose Oxyhemoglobin Potassium Chloride Carbon Dioxide BUN Glucose POC Glucose Lactic Acid 4.00 H* Magnesium AST ALT Alkaline Phosphatase Ammonia 116.0 H Troponin T Total Protein Albumin Triglycerides HDL Cholesterol Lipase Arterial Blood Glucose Acetaminophen Crossmatch 03/17/21 03/18/21 03/18/21 23:36 00:25 23:07 WBC RBC Hgb Hct MCV MCH MCHC RDW Plt Count Seg Neuts % (Manual) Monocytes % (Manual) Nucleated RBC % Seg Neutrophils # Man Lymphocytes # (Manual) INR APTT D-Dimer ABG pH POC ABG pCO2 POC ABG pO2 ABG pO2 68.1 L ABG HCO3 40.2 H ABG O2 Saturation ABG Base Excess 14.4 H ABG Hemoglobin 6.5 L ABG Oxyhemoglobin ABG Potassium ABG Chloride ABG Glucose Oxyhemoglobin Potassium Chloride Carbon Dioxide BUN Glucose POC Glucose Lactic Acid 4.00 H* Magnesium AST ALT Alkaline Phosphatase Ammonia Troponin T Total Protein Albumin Triglycerides HDL Cholesterol Lipase Arterial Blood Glucose Acetaminophen 5.0 L Crossmatch 03/19/21 03/19/21 03/19/21 00:50 03:25 04:59 WBC RBC 3.43 L Hgb 7.0 L Hct 25.6 L MCV 75 L MCH 20 L MCHC 27 L RDW 25.6 H Plt Count Seg Neuts % (Manual) 91.0 H Monocytes % (Manual) 9.0 H Nucleated RBC % 3.0 H Seg Neutrophils # Man 9.0 H Lymphocytes # (Manual) 0.0 L INR APTT D-Dimer ABG pH 7.531 H POC ABG pCO2 POC ABG pO2 ABG pO2 49.6 L ABG HCO3 31.4 H ABG O2 Saturation 99.6 H ABG Base Excess 8.1 H ABG Hemoglobin 7.2 L ABG Oxyhemoglobin ABG Potassium ABG Chloride ABG Glucose Oxyhemoglobin Potassium Chloride Carbon Dioxide BUN Glucose POC Glucose 127 H Lactic Acid Magnesium AST ALT Alkaline Phosphatase Ammonia Troponin T Total Protein Albumin Triglycerides HDL Cholesterol Lipase Arterial Blood Glucose Acetaminophen Crossmatch 03/19/21 03/19/21 03/19/21 04:59 10:37 12:00 WBC RBC Hgb Hct MCV MCH MCHC RDW Plt Count Seg Neuts % (Manual) Monocytes % (Manual) Nucleated RBC % Seg Neutrophils # Man Lymphocytes # (Manual) INR APTT D-Dimer ABG pH 7.494 H POC ABG pCO2 POC ABG pO2 ABG pO2 107.3 H ABG HCO3 31.6 H ABG O2 Saturation ABG Base Excess 7.7 H ABG Hemoglobin 7.1 L ABG Oxyhemoglobin ABG Potassium ABG Chloride ABG Glucose Oxyhemoglobin Potassium Chloride 89.5 L Carbon Dioxide BUN Glucose 121 H POC Glucose Lactic Acid Magnesium AST 359 H ALT 1434 H Alkaline Phosphatase Ammonia Troponin T Total Protein 5.7 L Albumin 3.5 L Triglycerides HDL Cholesterol Lipase Arterial Blood Glucose Acetaminophen Crossmatch 03/19/21 03/19/21 03/19/21 12:05 17:52 23:23 WBC RBC Hgb Hct MCV MCH MCHC RDW Plt Count Seg Neuts % (Manual) Monocytes % (Manual) Nucleated RBC % Seg Neutrophils # Man Lymphocytes # (Manual) INR APTT D-Dimer ABG pH POC ABG pCO2 POC ABG pO2 ABG pO2 ABG HCO3 ABG O2 Saturation ABG Base Excess ABG Hemoglobin ABG Oxyhemoglobin ABG Potassium ABG Chloride ABG Glucose Oxyhemoglobin Potassium Chloride Carbon Dioxide BUN Glucose POC Glucose 122 H 114 H 187 H Lactic Acid Magnesium AST ALT Alkaline Phosphatase Ammonia Troponin T Total Protein Albumin Triglycerides HDL Cholesterol Lipase Arterial Blood Glucose Acetaminophen Crossmatch 03/19/21 03/20/21 03/20/21 Unknown 03:50 03:57 WBC RBC Hgb Hct MCV MCH MCHC RDW Plt Count Seg Neuts % (Manual) Monocytes % (Manual) Nucleated RBC % Seg Neutrophils # Man Lymphocytes # (Manual) INR APTT D-Dimer ABG pH 7.477 H POC ABG pCO2 POC ABG pO2 ABG pO2 67.9 L ABG HCO3 33.9 H ABG O2 Saturation ABG Base Excess 9.5 H ABG Hemoglobin 6.7 L ABG Oxyhemoglobin ABG Potassium ABG Chloride ABG Glucose Oxyhemoglobin Potassium Chloride Carbon Dioxide BUN Glucose POC Glucose 247 H Lactic Acid Magnesium AST ALT Alkaline Phosphatase Ammonia Troponin T Total Protein Albumin Triglycerides HDL Cholesterol Lipase 12 L Arterial Blood Glucose Acetaminophen Crossmatch 03/20/21 03/20/21 03/20/21 04:18 04:18 10:16 WBC RBC 3.48 L Hgb 7.0 L Hct 25.3 L MCV 73 L MCH 20 L MCHC 28 L RDW 25.2 H Plt Count 541 H Seg Neuts % (Manual) Monocytes % (Manual) Nucleated RBC % Seg Neutrophils # Man Lymphocytes # (Manual) INR APTT D-Dimer ABG pH POC ABG pCO2 POC ABG pO2 ABG pO2 63.3 L ABG HCO3 34.0 H ABG O2 Saturation 90.0 L ABG Base Excess 7.9 H ABG Hemoglobin 10.5 L ABG Oxyhemoglobin ABG Potassium ABG Chloride ABG Glucose Oxyhemoglobin 88.1 L Potassium Chloride 91.6 L Carbon Dioxide BUN 22 H Glucose 245 H POC Glucose Lactic Acid Magnesium AST 148 H ALT 1096 H Alkaline Phosphatase 133 H Ammonia Troponin T Total Protein Albumin 3.5 L Triglycerides HDL Cholesterol Lipase Arterial Blood Glucose Acetaminophen Crossmatch 03/20/21 03/20/21 03/21/21 12:05 17:26 00:18 WBC RBC Hgb Hct MCV MCH MCHC RDW Plt Count Seg Neuts % (Manual) Monocytes % (Manual) Nucleated RBC % Seg Neutrophils # Man Lymphocytes # (Manual) INR APTT D-Dimer ABG pH POC ABG pCO2 POC ABG pO2 ABG pO2 ABG HCO3 ABG O2 Saturation ABG Base Excess ABG Hemoglobin ABG Oxyhemoglobin ABG Potassium ABG Chloride ABG Glucose Oxyhemoglobin Potassium Chloride Carbon Dioxide BUN Glucose POC Glucose 226 H 215 H 323 H Lactic Acid Magnesium AST ALT Alkaline Phosphatase Ammonia Troponin T Total Protein Albumin Triglycerides HDL Cholesterol Lipase Arterial Blood Glucose Acetaminophen Crossmatch 03/21/21 03/21/21 03/21/21 04:00 05:05 09:28 WBC 12.0 H RBC 3.42 L Hgb 6.8 L Hct 25.3 L MCV 74 L MCH 20 L MCHC 27 L RDW 25.1 H Plt Count 650 H Seg Neuts % (Manual) Monocytes % (Manual) Nucleated RBC % Seg Neutrophils # Man Lymphocytes # (Manual) INR APTT D-Dimer ABG pH 7.348 L POC ABG pCO2 POC ABG pO2 ABG pO2 56.3 L ABG HCO3 36.9 H ABG O2 Saturation 83.4 L ABG Base Excess 10.0 H ABG Hemoglobin 7.0 L ABG Oxyhemoglobin ABG Potassium ABG Chloride ABG Glucose Oxyhemoglobin 81.7 L Potassium Chloride Carbon Dioxide BUN Glucose POC Glucose 311 H Lactic Acid Magnesium AST ALT Alkaline Phosphatase Ammonia Troponin T Total Protein Albumin Triglycerides HDL Cholesterol Lipase Arterial Blood Glucose Acetaminophen Crossmatch 03/21/21 03/21/21 03/21/21 09:28 12:31 14:08 WBC RBC Hgb Hct MCV MCH MCHC RDW Plt Count Seg Neuts % (Manual) Monocytes % (Manual) Nucleated RBC % Seg Neutrophils # Man Lymphocytes # (Manual) INR APTT D-Dimer ABG pH POC ABG pCO2 POC ABG pO2 ABG pO2 ABG HCO3 ABG O2 Saturation ABG Base Excess ABG Hemoglobin ABG Oxyhemoglobin ABG Potassium ABG Chloride ABG Glucose Oxyhemoglobin Potassium 5.1 H D Chloride 94.4 L Carbon Dioxide 33 H BUN 32 H Glucose 319 H POC Glucose 295 H Lactic Acid Magnesium 2.40 H AST ALT 697 H Alkaline Phosphatase 134 H Ammonia Troponin T Total Protein 5.8 L Albumin 3.4 L Triglycerides HDL Cholesterol Lipase Arterial Blood Glucose Acetaminophen Crossmatch See Detail 03/22/21 03/22/21 03/22/21 00:14 04:30 04:39 WBC RBC Hgb Hct MCV MCH MCHC RDW Plt Count Seg Neuts % (Manual) Monocytes % (Manual) Nucleated RBC % Seg Neutrophils # Man Lymphocytes # (Manual) INR APTT D-Dimer ABG pH 7.310 L POC ABG pCO2 POC ABG pO2 ABG pO2 65.4 L ABG HCO3 38.3 H ABG O2 Saturation 90.8 L ABG Base Excess 10.9 H ABG Hemoglobin 6.4 L ABG Oxyhemoglobin ABG Potassium ABG Chloride ABG Glucose Oxyhemoglobin 88.7 L Potassium Chloride Carbon Dioxide BUN Glucose POC Glucose 326 H Lactic Acid Magnesium AST ALT Alkaline Phosphatase Ammonia Troponin T Total Protein Albumin Triglycerides 189 H HDL Cholesterol Lipase Arterial Blood Glucose Acetaminophen Crossmatch 03/22/21 03/22/21 03/22/21 04:39 04:39 09:45 WBC 12.8 H RBC 3.34 L Hgb 6.6 L Hct 24.5 L MCV 73 L MCH 20 L MCHC 27 L RDW 25.5 H Plt Count 644 H Seg Neuts % (Manual) Monocytes % (Manual) Nucleated RBC % Seg Neutrophils # Man Lymphocytes # (Manual) INR APTT D-Dimer ABG pH POC ABG pCO2 65.7 H POC ABG pO2 59.7 L ABG pO2 ABG HCO3 ABG O2 Saturation ABG Base Excess ABG Hemoglobin 8.0 L ABG Oxyhemoglobin 86.3 L ABG Potassium 4.7 H ABG Chloride 94.0 L ABG Glucose 208 H Oxyhemoglobin Potassium 5.3 H Chloride 94.6 L Carbon Dioxide 34 H BUN 33 H Glucose 291 H POC Glucose Lactic Acid Magnesium AST ALT Alkaline Phosphatase Ammonia Troponin T Total Protein Albumin Triglycerides HDL Cholesterol Lipase Arterial Blood Glucose 208 H Acetaminophen Crossmatch 03/22/21 03/22/21 03/23/21 21:33 23:58 04:42 WBC 14.3 H RBC 3.63 L Hgb 7.6 L Hct 27.0 L MCV 74 L MCH 21 L MCHC 28 L RDW 23.1 H Plt Count 567 H Seg Neuts % (Manual) Monocytes % (Manual) Nucleated RBC % Seg Neutrophils # Man Lymphocytes # (Manual) INR APTT D-Dimer ABG pH POC ABG pCO2 POC ABG pO2 ABG pO2 ABG HCO3 ABG O2 Saturation ABG Base Excess ABG Hemoglobin ABG Oxyhemoglobin ABG Potassium ABG Chloride ABG Glucose Oxyhemoglobin Potassium Chloride Carbon Dioxide BUN Glucose POC Glucose 170 H 156 H Lactic Acid Magnesium AST ALT Alkaline Phosphatase Ammonia Troponin T Total Protein Albumin Triglycerides HDL Cholesterol Lipase Arterial Blood Glucose Acetaminophen Crossmatch 03/23/21 03/23/21 03/23/21 04:42 04:50 22:25 WBC RBC Hgb Hct MCV MCH MCHC RDW Plt Count Seg Neuts % (Manual) Monocytes % (Manual) Nucleated RBC % Seg Neutrophils # Man Lymphocytes # (Manual) INR APTT D-Dimer ABG pH POC ABG pCO2 POC ABG pO2 ABG pO2 70.7 L ABG HCO3 41.7 H ABG O2 Saturation ABG Base Excess 15.2 H ABG Hemoglobin 5.6 L ABG Oxyhemoglobin ABG Potassium ABG Chloride ABG Glucose Oxyhemoglobin Potassium Chloride 94.6 L Carbon Dioxide 37 H BUN 27 H Glucose 311 H POC Glucose 295 H Lactic Acid Magnesium AST ALT Alkaline Phosphatase Ammonia Troponin T Total Protein Albumin Triglycerides HDL Cholesterol Lipase Arterial Blood Glucose Acetaminophen Crossmatch 03/23/21 23:13 WBC RBC Hgb Hct MCV MCH MCHC RDW Plt Count Seg Neuts % (Manual) Monocytes % (Manual) Nucleated RBC % Seg Neutrophils # Man Lymphocytes # (Manual) INR APTT D-Dimer ABG pH POC ABG pCO2 POC ABG pO2 ABG pO2 ABG HCO3 ABG O2 Saturation ABG Base Excess ABG Hemoglobin ABG Oxyhemoglobin ABG Potassium ABG Chloride ABG Glucose Oxyhemoglobin Potassium Chloride Carbon Dioxide BUN Glucose POC Glucose 336 H Lactic Acid Magnesium AST ALT Alkaline Phosphatase Ammonia Troponin T Total Protein Albumin Triglycerides HDL Cholesterol Lipase Arterial Blood Glucose Acetaminophen Crossmatch Chest x-ray: report reviewed, image reviewed CT scan - chest: report reviewed, image reviewed
--- NOTE | 2021-03-24 03:05 | XRay Report ---
CHEST 1 VIEW INDICATION / CLINICAL INFORMATION: follow up respiratory failure. COMPARISON: 03/22/2021 FINDINGS: SUPPORT DEVICES: Stable, satisfactory device positioning. HEART / MEDIASTINUM: No significant abnormality. LUNGS / PLEURA: Lungs remain hyperinflated. Minimal bilateral pulmonary opacities are unchanged. No n ew findings. No pneumothorax. ADDITIONAL FINDINGS: No significant additional findings. IMPRESSION: 1. Stable appearance of the chest radiograph. No significant interval change. Signer Name: Jyoti Joaquin MD Signed: 03/24/2021 3:01 AM Workstation Name: [id number]
[2021-03-24] MEDS: INSULIN LISPRO 100 UNIT/ML SUB-Q SCH ×3 (06:21→18:23)
[2021-03-24] MEDS: methylPREDNISolone Sod Succinate 40 MG/1 ML INJ IV SCH ×3 (06:22→21:02)
[2021-03-24] MEDS: HEPARIN 5,000 UNIT/1 ML VIAL SUB-Q SCH ×2 (06:22→14:43)
[2021-03-24 09:03] LABS: Blood Urea Nitrogen 26 mg/dL (7-17); Calcium 8.8 mg/dL (8.4-10.2); Hemolysis Index 9
[2021-03-24 09:06] LABS: BUN/Creatinine Ratio 52
[2021-03-24 09:31] LABS: Mean Corpuscular HGB Conc 28 % (30-34); Mean Corpuscular Volume 76 fl (79-97); Platelet Count 499 K/mm3 (140-440); Red Blood Count 3.48 M/mm3 (3.65-5.03)
[2021-03-24] MEDS: FAMOTIDINE 20 MG TAB FEEDTUBE SCH ×2 (09:36→21:02)
[2021-03-24] MEDS: METOPROLOL TARTRATE 25 MG TAB PO SCH ×2 (09:36→21:01)
[2021-03-24] MEDS: DOCUSATE SODIUM 100 MG/10 ML ORAL LIQD PO SCH ×2 (09:36→21:03)
[2021-03-24] MEDS: SENNOSIDES/DOCUSATE SODIUM 8.6/50 MG TAB FEEDTUBE SCH ×2 (09:36→21:02)
[2021-03-24 09:42] LABS: Hematocrit 26.3 % (30.3-42.9); Hemoglobin 7.3 gm/dl (10.1-14.3); Red Cell Distribution Width 24.1 % (13.2-15.2)
--- NOTE | 2021-03-24 11:47 | Progress Note ---
Assessment and Plan - Patient Problems (1) Anemia Current Visit: Yes Status: Acute (2) COPD exacerbation Current Visit: Yes Status: Acute (3) Respiratory failure Current Visit: Yes Status: Acute (4) Tachyarrhythmia Current Visit: Yes Status: Acute Subjective Date of service: 03/24/21 Principal diagnosis: Atrial fibrillation with RVR, respiratory failure Interval history: ALERT,, ON MECH. VENT. Objective Vital Signs Temp Pulse Pulse Resp BP Pulse Ox 03/24/21 09:45 91 H 18 117/69 100 03/24/21 09:36 65 117/69 03/24/21 09:30 67 17 117/69 100 03/24/21 09:15 69 16 111/64 100 03/24/21 09:00 66 21 111/64 100 03/24/21 08:51 70 106/63 99 03/24/21 08:45 69 21 106/63 100 03/24/21 08:30 70 15 106/63 97 03/24/21 08:15 79 14 143/77 99 03/24/21 08:01 73 21 137/68 99 03/24/21 08:00 98.3 F 85 85 18 100 03/24/21 07:45 78 19 137/68 98 03/24/21 07:30 76 15 113/60 99 03/24/21 07:15 83 18 115/63 99 03/24/21 07:00 99 H 22 140/77 97 03/24/21 06:45 91 H 15 118/74 99 03/24/21 06:31 100 H 15 128/77 96 03/24/21 06:15 90 15 107/62 100 03/24/21 06:00 61 17 106/60 100 03/24/21 05:46 58 L 15 106/60 100 03/24/21 05:30 60 18 105/57 03/24/21 05:16 60 19 97/55 98 03/24/21 05:00 77 18 112/57 03/24/21 04:45 64 19 104/57 98 03/24/21 04:30 75 18 105/63 100 03/24/21 04:20 64 109/63 100 03/24/21 04:15 59 L 18 109/63 99 03/24/21 04:00 59 L 62 16 102/59 100 01/01/22 03:45 62 17 104/60 99 03/24/21 03:32 98.9 F 03/24/21 03:30 63 18 101/60 99 03/24/21 03:15 72 13 104/59 98 03/24/21 03:00 83 16 103/53 99 03/24/21 02:45 75 11 L 137/75 97 03/24/21 02:30 87 15 108/60 99 03/24/21 02:15 73 17 108/60 98 03/24/21 02:00 83 17 98/54 98 03/24/21 01:45 72 18 96/55 99 03/24/21 01:30 73 22 99/56 99 03/24/21 01:16 87 12 63/32 98 03/24/21 01:00 83 14 92/66 99 03/24/21 00:46 89 12 92/66 99 03/24/21 00:30 68 19 109/64 99 03/24/21 00:15 83 18 110/70 98 03/24/21 00:00 87 83 18 69/39 99 03/23/21 23:46 88 19 154/78 99 03/23/21 23:31 98.8 F 03/23/21 23:30 88 18 158/71 97 03/23/21 23:16 100 H 18 146/63 98 03/23/21 23:00 86 18 144/63 96 03/23/21 22:45 91 H 15 144/63 97 03/23/21 22:30 68 18 141/69 100 03/23/21 22:15 68 21 142/63 99 03/23/21 22:00 80 18 142/66 99 03/23/21 21:45 64 17 136/65 99 03/23/21 21:30 71 14 135/64 100 03/23/21 21:15 68 17 125/62 100 03/23/21 21:00 64 17 134/61 100 03/23/21 20:45 71 16 125/63 99 03/23/21 20:30 79 15 125/65 99 03/23/21 20:16 84 16 138/67 99 03/23/21 20:00 98.3 F 90 92 H 15 158/67 99 03/23/21 19:46 100 H 19 180/84 97 03/23/21 19:40 100 H 97 03/23/21 19:30 107 H 22 186/105 95 03/23/21 19:15 97 H 18 175/80 97 03/23/21 19:00 95 H 20 171/81 98 03/23/21 18:46 94 H 14 159/114 96 03/23/21 18:30 63 14 132/58 100 03/23/21 18:15 76 14 135/68 99 03/23/21 18:14 76 19 137/64 99 03/23/21 18:00 82 15 137/64 99 03/23/21 17:45 89 16 148/72 98 03/23/21 17:30 94 H 15 164/75 98 03/23/21 17:16 101 H 23 181/85 97 03/23/21 17:00 85 14 133/68 99 03/23/21 16:58 77 131/58 98 03/23/21 16:45 74 19 131/58 99 03/23/21 16:30 85 19 156/78 98 03/23/21 16:15 88 21 148/71 97 03/23/21 16:00 98.3 F 112 H 112 H 33 H 163/101 94 03/23/21 15:45 116 H 24 131/108 95 03/23/21 15:30 85 20 155/75 97 03/23/21 15:15 91 H 20 146/85 96 03/23/21 15:00 97 H 22 168/93 95 03/23/21 14:46 86 10 L 133/101 97 03/23/21 14:30 90 14 130/84 99 03/23/21 14:15 76 17 128/64 99 03/23/21 14:00 89 21 139/75 99 03/23/21 13:45 89 18 148/77 98 03/23/21 13:30 86 16 185/117 97 03/23/21 13:15 88 15 144/76 98 03/23/21 13:00 90 16 158/83 97 03/23/21 12:46 90 15 177/117 97 03/23/21 12:30 95 H 16 108/69 96 03/23/21 12:24 110 H 108/69 95 03/23/21 12:15 72 18 108/69 99 03/23/21 12:00 98.1 F 72 72 18 118/64 100 - Physical Examination General: Other (Intubated, on the vent) Neck: Positive: neck supple Cardiac: Positive: Regular Rhythm Lungs: Positive: clear to auscultation, Decreased Breath Sounds Neuro: Positive: Grossly Intact, Other (Intubated, sedated on the vent) Abdomen: Positive: Soft Skin: Positive: Clear Extremities: Present: normal - Labs and Meds CBC 03/24/21 Range/Units 08:03 WBC 13.2 H (4.5-11.0) K/mm3 RBC 3.48 L (3.65-5.03) M/mm3 Hgb 7.3 L (10.1-14.3) gm/dl Hct 26.3 L (30.3-42.9) % Plt Count 499 H (140-440) K/mm3 Comprehensive Metabolic Panel 03/24/21 Range/Units 08:03 Sodium 143 (137-145) mmol/L Potassium 4.2 (3.6-5.0) mmol/L Chloride 94.4 L (98-107) mmol/L Carbon Dioxide 38 H (22-30) mmol/L BUN 26 H (7-17) mg/dL Creatinine 0.5 L (0.6-1.2) mg/dL Glucose 348 H (65-100) mg/dL Calcium 8.8 (8.4-10.2) mg/dL
[2021-03-24] MEDS: INSULIN GLARGINE 100 UNITS/ML SUB-Q SCH ×2 (13:30→21:06)
[2021-03-24] MEDS: ARFORMOTEROL 15 MCG/2 ML NEBU IH SCH ×2 (14:36→21:05)
[2021-03-24] MEDS: BUDESONIDE 0.5 MG/2 ML NEBU IH SCH ×2 (14:37→21:05)
[2021-03-24 15:25] LABS: Total Cells Counted 100
[2021-03-24 15:26] LABS: Band Neutrophils # (Manual) 2.2 K/mm3; Myelocytes # (Manual) 0.5 K/mm3
[2021-03-24 15:27] LABS: Anisocytosis 2+; Platelet Estimate Consistent w Auto
--- NOTE | 2021-03-24 16:48 | Progress Note ---
<VINNIEDARLENEPorfirio - Last Filed: 03/24/21 17:24> Assessment and Plan Assessment and plan: This is a 50-year-old female with COPD with oxygen dependence, DM, severe anxiety, GERD, HLD, HTN and PAGE admitted with SVT and hypertensive urgency. Neuro: Hepatic/metabolic encephalopathy, h/o severe anxiety, depression -Admit ammonia 116, 03/09 ammonia 26 -Sedated with precedex and fentanyl gtt -RASS goal 0 to -1 -Avoid delirium -Maintain sleep-wake cycle -SAT when appropriate -Resume home cymbalta and buspar when appropriate -CT head on admit with no acute findings -Repeat CT head d/t AMS post extubation-> no acute events Cardio: Hypertensive emergency, s/p A. fib with RVR, s/p SVT, h/o HTN, HLD -Cardiology consulted, appreciate recommendations -PO metoprolol BID -Resume home statin -Blood pressure monitoring per protocol -Echocardiogram 10/2020 showed EF of 50 to 55%, mild diastolic dysfunction, trace to mild tricuspid regurgitation, mild pulmonary hypertension, RVSP 45 mmHg Resp : Acute on chronic respiratory failure, h/o COPD and PAGE -CCM consulted, appreciate recommendations -CTA chest shows no CT evidence of pulmonary embolism, small right and trace left pleural effusion, upper lobe predominant emphysema -Intubated on 03/17 with 7.00 ETT at 20 at the lips and extubated 03/22 but reintubated shortly after -A.m. vent settings: Assist control tidal volume 450, rate 18, PEEP 6, 40% FiO2 -See RT notes for titration -A.m. ABG and CXR noted -VAP bundle -SPO2 monitoring -Methylprednisone being weaned GI: Transaminitis (resolving), h/o chronic constipation -NTR consulted, appreciate recommendations -RUQ US shows right hydroureteronephrosis and possible gallbladder sludge or gallstones -Renal ultrasound shows mild right-sided hydronephrosis with parenchymal thinning and trace perinephric fluid. -PPI -BR: senakot S and colace -MOM x1 -24 hours +511 mL : Hypochlormia, mild right hydroureteronephrosis -Trend BMP -FWF with TF -Strict I & Os -Wallis -Renal ultrasound shows mild right-sided hydronephrosis with parenchymal thinning and trace perinephric fluid. Endo: hyperglycemia -Avoid hypoglycemia -SSI -Accucheck q 6hrs -Lantus -titrate as needed Heme: Anemia, Leukocytosis, h/o Microcytic anemia -Trend CBC -Transfuse for hbg <7 -s/p 1 unit prbc -SCDs to BLE while in bed -Lovenox subq ID: Gram positive cocci in tracheal aspirate -02/25 tracheal aspirate with few gram-positive cocci -s/p Levaquin (03/18-) -Trend WBC and fever curve The high probability of a clinically significant, sudden or life threatening deterioration of the [pulm/cv] system(s) required my full and direct attention, intervention and personal management. The aggregate critical care time was [60] minutes. This time is in addition to time spent performing reported procedures but includes the following: [x] Data Review and interpretation [x] Patient assessment and monitoring of vital signs [x] Documentation [x] Medication orders and management Disposition Plan: icu Total Time Spent with Patient (Minutes): 60 History Interval history: This is a 60-year-old female with COPD with oxygen dependence currently with palliative care, DM, former nicotine abuse, severe anxiety, GERD, HLD, HTN and PAGE presented to emergency department on 03/17 via EMS with complaints of shortness of breath. On arrival of EMS patient was found to be in SVT with a heart rate of about 200 and blood pressure to be quite elevated with systolic in 200s. She was given 6 mg of adenosine without significant changes subsequently given 12 mg of adenosine with improvement of her heart rate. Upon arrival to the emergency department patient was found to be in atrial fibrillation with RVR and dyspneic. Work-up in the emergency department revealed leukocytosis, lactic acidosis, transaminitis, hypoalbuminemia and a troponin leak. CXR, CT a chest and CT head were unremarkable. Patient was admitted to the hospitalist service with consults to [facility] and cardiology for further work-up of acute on chronic respiratory failure, SVT and hypertensive urgency. 03/18/2021: Patient is intubated and on vent support, Patient is in sinus tachycardia 03/19: COVID-19 PCR negative, remains on ventilatory support, Versed drip changed to propofol. No acute events reported overnight. Tracheal aspirate with few gram-positive Cocci. This afternoon, patient went in to the 150s, giving 500 mL NS bolus and fentanyl push to see if it pain related. If persists then will order prn Ativan per Dr. Gage recommendation. 03/20: Restarted on home metoprolol and abdominal ultrasound showed right hydronephrosis. Abd US shows right hydroureteronephrosis and will obtain a dedicated renal US. She seems to more comfortable on propofol and fentanyl 03/21: Patient's FiO2 had to be decreased overnight due to hypoxia and tachycardia. Hyperkalemia noted and given Kayexalate. 1 unit PRBC for hemoglobin 6.8. [facility] plans to extubate tomorrow. Increase in Lantus. 03/22: Transfuse one unit prbc, failed SBT in the AM d/t hypertension. [facility] extubated the patient but she was reintubated within [address] head or dered and pending read. Given kionex x2 for hyperkalemia 03/23: This morning patient was only on Precedex drip and overnight she had agitation, hypertension and tachycardia. RN instructed to place fentanyl drip. Increase in Lantus for better glucose control. Will remove Wallis today. 03/24/2021: no acute events reported overnight. Patient remains intubated and is currently on fentanyl and Precedex. Increase in Lantus due to hyperglycemia. Hospitalist Physical - Constitutional Vitals: Temp Pulse Resp BP Pulse Ox 98.1 F 72 17 134/71 100 03/24/21 12:00 03/24/21 14:15 03/24/21 14:15 03/24/21 14:15 03/24/21 14:15 General appearance: Present: no acute distress, other (sedated) - EENT Eyes: Present: PERRL, EOM intact ENT: hearing intact, clear oral mucosa, dentition normal - Neck Neck: Present: normal ROM - Respiratory Respiratory effort: normal Respiratory: bilateral: diminished - Cardiovascular Rhythm: regular Heart Sounds: Present: S1 & S2. Absent: systolic murmur, diastolic murmur Peripheral Pulses: within normal limits - Abdominal General gastrointestinal: soft, non-tender, non-distended, normal bowel sounds - Integumentary Integumentary: Present: warm, dry - Psychiatric Psychiatric: cooperative - Allied Health Allied health notes reviewed: nursing, RT HEART Score - HEART Score Troponin: Troponin T 0.015 ng/mL (0.00-0.029) 03/19/21 12:00 Results - Labs CBC & Chem 7: 03/24/21 08:03 03/24/21 08:03 Labs: Laboratory Last Values WBC 12.7 K/mm3 (4.5-11.0) H 03/24/21 08:03 RBC 3.48 M/mm3 (3.65-5.03) L 03/24/21 08:03 Hgb 7.3 gm/dl (10.1-14.3) L 03/24/21 08:03 Hct 26.3 % (30.3-42.9) L 03/24/21 08:03 MCV 76 fl (79-97) L 03/24/21 08:03 MCH 21 pg (28-32) L 03/24/21 08:03 MCHC 28 % (30-34) L 03/24/21 08:03 RDW 24.1 % (13.2-15.2) H 03/24/21 08:03 Plt Count 499 K/mm3 (140-440) H 03/24/21 08:03 Park % (Auto) [employer] Mill Operator 03/24/21 08:03 Add Manual Diff Complete 03/24/21 08:03 Total Counted 100 03/24/21 08:03 Seg Neuts % (Manual) 61.0 % (40.0-70.0) 03/24/21 08:03 Band Neutrophils % 17.0 % 03/24/21 08:03 Lymphocytes % (Manual) 1.0 % (13.4-35.0) L 03/24/21 08:03 Reactive Lymphs % (Man) 5.0 % 03/19/21 04:59 Monocytes % (Manual) 16.0 % (0.0-7.3) H 03/24/21 08:03 Metamyelocytes % 1.0 % 03/24/21 08:03 Myelocytes % 4.0 % 03/24/21 08:03 Promyelocytes % 3.0 % 03/19/21 04:59 Nucleated RBC % 11.0 % (0.0-0.9) H 03/24/21 08:03 Seg Neutrophils # Man 8.1 K/mm3 (1.8-7.7) H 03/24/21 08:03 Band Neutrophils # 2.2 K/mm3 03/24/21 08:03 Lymphocytes # (Manual) 0.1 K/mm3 (1.2-5.4) L 03/24/21 08:03 Abs React Lymphs (Man) 0.0 K/mm3 03/24/21 08:03 Monocytes # (Manual) 2.1 K/mm3 (0.0-0.8) H 03/24/21 08:03 Eosinophils # (Manual) 0.0 K/mm3 (0.0-0.4) 03/24/21 08:03 Basophils # (Manual) 0.0 K/mm3 (0.0-0.1) 03/24/21 08:03 Metamyelocytes # 0.1 K/mm3 03/24/21 08:03 Myelocytes # 0.5 K/mm3 03/24/21 08:03 Promyelocytes # 0.0 K/mm3 03/24/21 08:03 Blast Cells # 0.0 K/mm3 03/24/21 08:03 WBC Morphology Not Reportable 03/24/21 08:03 Hypersegmented Neuts Not Reportable 03/24/21 08:03 Hyposegmented Neuts Not Reportable 03/24/21 08:03 Hypogranular Neuts Not Reportable 03/24/21 08:03 Smudge Cells Not Reportable 03/24/21 08:03 Toxic Granulation Not Reportable 03/24/21 08:03 Toxic Vacuolation Not Reportable 03/24/21 08:03 Dohle Bodies Not Reportable 03/24/21 08:03 Pelger-Huet Anomaly Not Reportable 03/24/21 08:03 Florentino Rods Not Reportable 03/24/21 08:03 Platelet Estimate Consistent w auto 03/24/21 08:03 Clumped Platelets Not Reportable 03/24/21 08:03 Plt Clumps, EDTA Not Reportable 03/24/21 08:03 Large Platelets Not Reportable 03/24/21 08:03 Giant Platelets Not Reportable 03/24/21 08:03 Platelet Satelliting Not Reportable 03/24/21 08:03 Plt Morphology Comment Not Reportable 03/24/21 08:03 RBC Morphology Not Reportable 03/24/21 08:03 Dimorphic RBCs Not Reportable 03/24/21 08:03 Polychromasia 2+ 03/24/21 08:03 Hypochromasia Not Reportable 03/24/21 08:03 Poikilocytosis Not Reportable 03/24/21 08:03 Anisocytosis 2+ 03/24/21 08:03 Microcytosis Not Reportable 03/24/21 08:03 Macrocytosis Not Reportable 03/24/21 08:03 Spherocytes Not Reportable 03/24/21 08:03 Pappenheimer Bodies Not Reportable 03/24/21 08:03 Sickle Cells Not Reportable 03/24/21 08:03 Target Cells Not Reportable 03/24/21 08:03 Tear Drop Cells Not Reportable 03/24/21 08:03 Ovalocytes Not Reportable 03/24/21 08:03 Stomatocytes 1+ 03/17/21 17:36 Helmet Cells Not Reportable 03/24/21 08:03 Mabry-Barstow Bodies Not Reportable 03/24/21 08:03 [place] Rings Not Reportable 03/24/21 08:03 Marcelo Cells Not Reportable 03/24/21 08:03 Bite Cells Not Reportable 03/24/21 08:03 Crenated Cell Not Reportable 03/24/21 08:03 Elliptocytes Not Reportable 03/24/21 08:03 Acanthocytes (Spur) Not Reportable 03/24/21 08:03 Rouleaux Not Reportable 03/24/21 08:03 Hemoglobin C Crystals Not Reportable 03/24/21 08:03 Schistocytes Not Reportable 03/24/21 08:03 Malaria parasites Not Reportable 03/24/21 08:03 Maykel Bodies Not Reportable 03/24/21 08:03 Hem Pathologist Commnt No 03/24/21 08:03 PT 12.6 Sec. (12.2-14.9) 03/17/21 17:37 INR 0.85 (0.87-1.13) L 03/17/21 17:37 APTT 23.3 Sec. (24.2-36.6) L 03/17/21 17:37 D-Dimer 947.92 ng/mlDDU (0-234) H 03/17/21 17:37 ABG pH 7.477 (7.320-7.450) H 03/24/21 08:57 POC ABG pCO2 56.9 mmHg (32.0-48.0) H 03/24/21 08:57 ABG pCO2 72.7 mm Hg 03/23/21 04:50 POC ABG pO2 100.6 mmHg (83-108) 03/24/21 08:57 ABG pO2 70.7 mm Hg (80.0-90.0) L 03/23/21 04:50 POC ABG HCO3 41.1 03/24/21 08:57 ABG HCO3 41.7 mmol/L (20.0-26.0) H 03/23/21 04:50 ABG O2 Saturation 98.3 (0-100) 03/24/21 08:57 ABG O2 Content 7.8 (0.0-44) 03/23/21 04:50 POC ABG Base Excess 15.8 03/24/21 08:57 ABG Base Excess 15.2 mmol/L (-2.0-3.0) H 03/23/21 04:50 ABG Hemoglobin 8.0 (12.0-17.5) L 03/24/21 08:57 ABG Oxyhemoglobin 96.8 (94-98) 03/24/21 08:57 ABG Carboxyhemoglobin 1.7 % (0.0-5.0) 03/23/21 04:50 ABG Methemoglobin 0.3 (0.0-1.5) 03/24/21 08:57 ABG Sodium 139.1 mmol/L (136.0-145.0) 03/24/21 08:57 ABG Potassium 3.9 mmol/L (3.40-4.50) 03/24/21 08:57 ABG Chloride 93.0 mmol/L (98-107) L 03/24/21 08:57 ABG Glucose 328 mg/dL (65-95) H 03/24/21 08:57 Oxyhemoglobin 96.9 % (95.0-99.0) 03/23/21 04:50 Carboxyhemoglobin 1.2 (0.5-1.5) 03/24/21 08:57 FiO2 40 % 03/23/21 04:50 FiO2 % 40 03/24/21 08:57 Sodium 143 mmol/L (137-145) 03/24/21 08:03 Potassium 4.2 mmol/L (3.6-5.0) 03/24/21 08:03 Chloride 94.4 mmol/L (98-107) L 03/24/21 08:03 Carbon Dioxide 38 mmol/L (22-30) H 03/24/21 08:03 Anion Gap 15 mmol/L 03/24/21 08:03 BUN 26 mg/dL (7-17) H 03/24/21 08:03 Creatinine 0.5 mg/dL (0.6-1.2) L 03/24/21 08:03 Estimated GFR > 60 ml/min 03/24/21 08:03 BUN/Creatinine Ratio 52 % 03/24/21 08:03 Glucose 348 mg/dL (65-100) H 03/24/21 08:03 POC Glucose 315 mg/dL (70-105) H 03/24/21 12:14 Lactic Acid 4.00 mmol/L (0.7-2.0) H* 03/17/21 23:36 Calcium 8.8 mg/dL (8.4-10.2) 03/24/21 08:03 Phosphorus 3.50 mg/dL (2.5-4.5) 03/21/21 09:28 Magnesium 2.40 mg/dL (1.7-2.3) H 03/21/21 09:28 Total Bilirubin 0.20 mg/dL (0.1-1.2) 03/21/21 09:28 Direct Bilirubin < 0.2 mg/dL (0-0.2) 03/19/21 12:00 Indirect Bilirubin 0.1 mg/dL 03/19/21 12:00 AST 32 units/L (5-40) 03/21/21 09:28 ALT 697 units/L (7-56) H 03/21/21 09:28 Alkaline Phosphatase 134 units/L (35-129) H 03/21/21 09:28 Ammonia 26.0 umol/L (25-60) 03/19/21 12:00 Troponin T 0.015 ng/mL (0.00-0.029) 03/19/21 12:00 NT-Pro-B Natriuret Pep 576.0 pg/mL (0-900) 03/17/21 17:36 Total Protein 5.8 g/dL (6.3-8.2) L 03/21/21 09:28 Albumin 3.4 g/dL (3.9-5) L 03/21/21 09:28 Albumin/Globulin Ratio 1.4 % 03/21/21 09:28 Triglycerides 189 mg/dL (2-149) H 03/22/21 04:39 Cholesterol 191 mg/dL (50-199) 03/17/21 17:36 LDL Cholesterol Direct 80 mg/dL (50-130) 03/17/21 17:36 HDL Cholesterol 73 mg/dL (40-59) H 03/17/21 17:36 Cholesterol/HDL Ratio 2.61 % 03/17/21 17:36 Amylase 78 units/L (27-131) 03/19/21 Unknown Lipase 12 units/L (13-60) L 03/19/21 Unknown TSH 3.510 mlU/mL (0.270-4.200) 03/17/21 22:57 Arterial Blood Glucose 328 mg/dL (65-95) H 03/24/21 08:57 Arterial Blood Ionized Calcium 4.5 mg/dL (4.6-5.3) L 03/24/21 08:57 Urine Color Mayuri (Yellow) 03/17/21 19:42 Urine Turbidity Slightly-cloudy (Clear) 03/17/21 19:42 Urine pH 7.0 (5.0-7.0) 03/17/21 19:42 Ur Specific [place]ona 1.015 (1.003-1.030) 03/17/21 19:42 Urine Protein 100 mg/dl mg/dL (Negative) 03/17/21 19:42 Urine Glucose (UA) Neg mg/dL (Negative) 03/17/21 19:42 Urine Ketones 20 mg/dL (Negative) 03/17/21 19:42 Urine Blood Sm (Negative) 03/17/21 19:42 Urine Nitrite Neg (Negative) 03/17/21 19:42 Urine Bilirubin Neg (Negative) 03/17/21 19:42 Urine Urobilinogen 2.0 mg/dL (<2.0) 03/17/21 19:42 Ur Leukocyte Esterase Neg (Negative) 03/17/21 19:42 Urine WBC (Auto) 4.0 /HPF (0.0-6.0) 03/17/21 19:42 Urine RBC (Auto) 6.0 /HPF (0.0-6.0) 03/17/21 19:42 U Epithel Cells (Auto) 5.0 /HPF (0-13.0) 03/17/21 19:42 Urine Bacteria (Auto) 1+ /HPF (Negative) 03/17/21 19:42 Urine Mucus 1+ /HPF 03/17/21 19:42 Urine Yeast (Budding) Few /HPF 03/17/21 19:42 Acetaminophen 5.0 ug/mL (10.0-30.0) L 03/18/21 23:07 Coronavirus (PCR) Negative (Negative) 03/19/21 Unknown Blood Type A POSITIVE 03/21/21 14:08 Antibody Screen Negative 03/21/21 14:08 Crossmatch See Detail 03/21/21 14:08 Wallis/IV: Voiding Method External Female Catheter Active Medications - Current Medications Current Medications: Generic Name Dose Route Start Last Admin Trade Name Freq PRN Reason Stop Dose Admin Acetaminophen 650 mg 03/18/21 00:05 Acetaminophen 325 Mg Tab PO Q6H PRN Pain MILD(1-3)/Fever >100.5/TOVAR Albuterol 2.5 mg 03/22/21 08:00 Albuterol 2.5 Mg/3 Ml Nebu IH Q6H PRN Wheezing Lipase/Protease/Amylase 1 each 03/19/21 18:16 Lipase 10,500/Protease 25,000/Amylase 43,750 (Units) Dr Trent FARIASTUBE PRN PRN For Clogged Feeding Tube Arformoterol Tartrate 15 mcg 03/24/21 11:00 03/24/21 14:36 Arformoterol 15 Mcg/2 Ml Nebu IH Not Given Q12HRT BUTCH Atorvastatin Calcium 10 mg 03/19/21 22:00 03/23/21 22:27 Atorvastatin 10 Mg Tab PO 10 mg QHS BUTCH Administration Budesonide 0.5 mg 03/24/21 11:00 03/24/21 14:37 Budesonide 0.5 Mg/2 Ml Nebu IH Not Given Q12HRT BUTCH Dextrose 0 ml 03/17/21 23:58 Dextrose 50% In Water (25gm) 50 Ml Syringe IV Q30MIN PRN Hypoglycemia Protocol Docusate Sodium 100 mg 03/23/21 10:00 03/24/21 09:36 Docusate Sodium 100 Mg/10 Ml Oral Liqd PO 100 mg BID BUTCH Administration Famotidine 20 mg 03/20/21 22:00 03/24/21 09:36 Famotidine 20 Mg Tab FEEDTUBE 20 mg BID [facility] Administration Heparin Sodium (Porcine) 5,000 unit 03/18/21 06:00 03/24/21 14:43 Heparin 5,000 Unit/1 Ml Vial SUB-Q 5,000 unit Q8HR BUTCH Administration Hydrophilic Ointment 1 applic 03/17/21 17:35 Lip Therapy Vaseline TP Q2HR PRN Dry Lips Dexmedetomidine HCl 400 mcg/ 104 mls @ 4.306 mls/hr 03/21/21 13:00 03/24/21 11:00 Sodium Chloride IV 1.3 mcg/kg/hr TITRATE BUTCH 27.986 mls/hr Administration Protocol 0.2 MCG/KG/HR Fentanyl Citrate 2,000 mcg in 100 mls @ 4.14 mls/hr 03/22/21 15:00 03/24/21 0 8:20 Fentanyl Drip Premix IV 1 mcg/kg/hr TITR BUTCH 4.14 mls/hr Titration Protocol 1 MCG/KG/HR Insulin Glargine 25 units 03/24/21 13:02 Insulin Glargine 100 Units/Ml SUB-Q QHS [facility] Insulin Human Lispro 0 unit 03/19/21 12:00 03/24/21 12:48 Insulin Lispro 100 Unit/Ml SUB-Q 8 unit Q6HR [facility] Administration Protocol Magnesium Hydroxide 30 ml 03/18/21 00:05 03/24/21 09:36 Magnesium Hydroxide (Mom) Oral Liqd Udc PO 30 ml Q4H PRN Administration Constipation Methylprednisolone Sodium Succinate 40 mg 03/21/21 20:00 03/24/21 12:48 Methylprednisolone Sod Succinate 40 Mg/1 Ml Inj IV 40 mg Q8H [facility] Administration Metoprolol Tartrate 25 mg 03/20/21 22:00 03/24/21 09:36 Metoprolol Tartrate 25 Mg Tab PO 25 mg BID [facility] Administration Midazolam HCl 2 mg 03/22/21 14:39 03/23/21 06:25 Midazolam 2 Mg/2 Ml Inj IV 2 mg Q4HR PRN Administration Agitation Morphine Sulfate 2 mg 03/18/21 00:05 Morphine 2 Mg/1 Ml Inj IV Q4H PRN Pain, Moderate (4-6) Morphine Sulfate 4 mg 03/18/21 00:05 Morphine 4 Mg/1 Ml Inj IV Q4H PRN Pain , Severe (7-10) Multi-Ingred Cream/Lotion/Oil/Oint 1 applic 03/17/21 17:35 Mineral Oil/Petrolatum, White Ophth Oint 3.5 Gm OU Q4HR PRN Dry Eye(s) Senna/Docusate Sodium 1 tab 03/17/21 22:00 03/24/21 09:36 Sennosides/Docusate Sodium 8.6/50 Mg Tab FEEDTUBE 1 tab BID BUTCH Administration Simple Syrup 15 ml 03/19/21 18:16 Simple Syrup 15 Ml FEEDTUBE PRN PRN Hypoglycemia Simple Syrup 30 ml 03/19/21 18:16 Simple Syrup 15 Ml FEEDTUBE PRN PRN Hypoglycemia Sodium Bicarbonate 325 mg 03/19/21 18:16 Sodium Bicarbonate 325 Mg Tab FEEDTUBE PRN PRN For Clogged Feeding Tube Sodium Chloride 10 ml 03/18/21 10:00 03/23/21 11:58 Sodium Chloride 0.9% 10 Ml Flush Syringe IV Not Given BID BUTCH Sodium Chloride 10 ml 03/17/21 23:58 03/22/21 23:20 Sodium Chloride 0.9% 10 Ml Flush Syringe IV 10 ml PRN PRN Administration LINE FLUSH Nutrition/Malnutrition Assess - Dietary Evaluation Nutrition/Malnutrition Findings: Nutrition Notes Start: 03/18/21 09:46 Freq: Status: Active Protocol: Document 03/23/21 18:25 PAM (Rec: 03/23/21 18:30 PAM [email or web address]) Nutrition Notes Initial or Follow up Brief Note Current Diet TF-Promote @ 70 ml/hr (since D 03/19). Weight change and time frame No body weight change reported . Subjective/Other Information RD consult for TF tolerance. TF continues as prescribed. Percent of energy/protein needs met: Prescribed Promote @ 70 ml/hr provides for energy/protein needs (1,680 Kcal/105 g) during LOS. #1 Nutrition Diagnosis Inadequate oral intake Diagnosis Progress(for reassessment Continues documentation) Nutrition Intervention Nutrition Support: Continue Promote @ 70 ml/hr. Flush: 50 ml water Q 4 hr. Goal #1 Provide at least 75% of energy /protein needs through Enteral Feeding during LOS. Follow-Up By: 03/30/21 Additional Comments Continue monitoring TF tolerance, and BM. <LEANDER ARAIZA - Last Filed: 03/27/21 23:50> Assessment and Plan Assessment and plan: I saw and evaluated the patient. Discussed with the nurse practitioner and agree with their findings and plan as documented in this note. Hospitalist Physical - Constitutional Vitals: Temp Pulse Resp BP Pulse Ox 97.8 F 84 17 134/83 100 03/27/21 20:00 03/27/21 22:00 03/27/21 20:30 03/27/21 22:00 03/27/21 20:30 HEART Score - HEART Score Troponin: Troponin T 0.015 ng/mL (0.00-0.029) 03/19/21 12:00 Results - Labs CBC & Chem 7: 03/27/21 04:15 03/27/21 04:15 Labs: Laboratory Last Values WBC 21.4 K/mm3 (4.5-11.0) H 03/27/21 04:15 RBC 3.45 M/mm3 (3.65-5.03) L 03/27/21 04:15 Hgb 6.9 gm/dl (10.1-14.3) L 03/27/21 04:15 Hct 26.2 % (30.3-42.9) L 03/27/21 04:15 MCV 76 fl (79-97) L 03/27/21 04:15 MCH 20 pg (28-32) L 03/27/21 04:15 MCHC 27 % (30-34) L 03/27/21 04:15 RDW 24.5 % (13.2-15.2) H 03/27/21 04:15 Plt Count 500 K/mm3 (140-440) H 03/27/21 04:15 Park % (Auto) Custom Feed Mill Operator 03/24/21 08:03 Add Manual Diff Complete 03/26/21 05:35 Total Counted 100 03/26/21 05:35 Seg Neuts % (Manual) 72.0 % (40.0-70.0) H 03/26/21 05:35 Band Neutrophils % 5.0 % 03/26/21 05:35 Lymphocytes % (Manual) 6.0 % (13.4-35.0) L 03/26/21 05:35 Reactive Lymphs % (Man) 5.0 % 03/19/21 04:59 Monocytes % (Manual) 8.0 % (0.0-7.3) H 03/26/21 05:35 Metamyelocytes % 3.0 % 03/26/21 05:35 Myelocytes % 5.0 % 03/26/21 05:35 Promyelocytes % 1.0 % 03/26/21 05:35 Nucleated RBC % Not Reportable 03/26/21 05:35 Seg Neutrophils # Man 14.4 K/mm3 (1.8-7.7) H 03/26/21 05:35 Band Neutrophils # 1.0 K/mm3 03/26/21 05:35 Lymphocytes # (Manual) 1.2 K/mm3 (1.2-5.4) 03/26/21 05:35 Abs React Lymphs (Man) 0.0 K/mm3 03/26/21 05:35 Monocytes # (Manual) 1.6 K/mm3 (0.0-0.8) H 03/26/21 05:35 Eosinophils # (Manual) 0.0 K/mm3 (0.0-0.4) 03/26/21 05:35 Basophils # (Manual) 0.0 K/mm3 (0.0-0.1) 03/26/21 05:35 Metamyelocytes # 0.6 K/mm3 03/26/21 05:35 Myelocytes # 1.0 K/mm3 03/26/21 05:35 Promyelocytes # 0.2 K/mm3 03/26/21 05:35 Blast Cells # 0.0 K/mm3 03/26/21 05:35 WBC Morphology Not Reportable 03/26/21 05:35 Hypersegmented Neuts Not Reportable 03/26/21 05:35 Hyposegmented Neuts Not Reportable 03/26/21 05:35 Hypogranular Neuts Not Reportable 03/26/21 05:35 Smudge Cells Not Reportable 03/26/21 05:35 Toxic Granulation Not Reportable 03/26/21 05:35 Toxic Vacuolation Not Reportable 03/26/21 05:35 Dohle Bodies Not Reportable 03/26/21 05:35 Pelger-Huet Anomaly Not Reportable 03/26/21 05:35 Florentino Rods Not Reportable 03/26/21 05:35 Platelet Estimate Consistent w auto 03/26/21 05:35 Clumped Platelets Not Reportable 03/26/21 05:35 Plt Clumps, EDTA Not Reportable 03/26/21 05:35 Large Platelets 1+ 03/26/21 05:35 Giant Platelets Not Reportable 03/26/21 05:35 Platelet Satelliting Not Reportable 03/26/21 05:35 Plt Morphology Comment Not Reportable 03/26/21 05:35 RBC Morphology Not Reportable 03/26/21 05:35 Dimorphic RBCs Not Reportable 03/26/21 05:35 Polychromasia 1+ 03/26/21 05:35 Hypochromasia 2+ 03/26/21 05:35 Poikilocytosis 1+ 03/26/21 05:35 Anisocytosis 2+ 03/26/21 05:35 Microcytosis Not Reportable 03/26/21 05:35 Macrocytosis Not Reportable 03/26/21 05:35 Spherocytes Not Reportable 03/26/21 05:35 Pappenheimer Bodies Not Reportable 03/26/21 05:35 Sickle Cells Not Reportable 03/26/21 05:35 Target Cells 1+ 03/26/21 05:35 Tear Drop Cells 1+ 03/26/21 05:35 Ovalocytes Not Reportable 03/26/21 05:35 Stomatocytes 1+ 03/26/21 05:35 Helmet Cells Not Reportable 03/26/21 05:35 [place] Bodies Not Reportable 03/26/21 05:35 [place] Rings Not Reportable 03/26/21 05:35 [place] Cells Not Reportable 03/26/21 05:35 Bite Cells Not Reportable 03/26/21 05:35 Crenated Cell Not Reportable 03/26/21 05:35 Elliptocytes Not Reportable 03/26/21 05:35 Acanthocytes (Spur) Not Reportable 03/26/21 05:35 Rouleaux Not Reportable 03/26/21 05:35 Hemoglobin C Crystals Not Reportable 03/26/21 05:35 Schistocytes 1+ 03/26/21 05:35 Malaria parasites Not Reportable 03/26/21 05:35 [place] Bodies Not Reportable 03/26/21 05:35 Hem Pathologist Commnt No 03/26/21 05:35 PT 12.6 Sec. (12.2-14.9) 03/17/21 17:37 INR 0.85 (0.87-1.13) L 03/17/21 17:37 APTT 23.3 Sec. (24.2-36.6) L 03/17/21 17:37 D-Dimer 947.92 ng/mlDDU (0-234) H 03/17/21 17:37 ABG pH 7.477 (7.320-7.450) H 03/24/21 08:57 POC ABG pCO2 56.9 mmHg (32.0-48.0) H 03/24/21 08:57 ABG pCO2 72.7 mm Hg 03/23/21 04:50 POC ABG pO2 100.6 mmHg (83-108) 03/24/21 08:57 ABG pO2 70.7 mm Hg (80.0-90.0) L 03/23/21 04:50 POC ABG HCO3 41.1 03/24/21 08:57 ABG HCO3 41.7 mmol/L (20.0-26.0) H 03/23/21 04:50 ABG O2 Saturation 98.3 (0-100) 03/24/21 08:57 ABG O2 Content 7.8 (0.0-44) 03/23/21 04:50 POC ABG Base Excess 15.8 03/24/21 08:57 ABG Base Excess 15.2 mmol/L (-2.0-3.0) H 03/23/21 04:50 ABG Hemoglobin 8.0 (12.0-17.5) L 03/24/21 08:57 ABG Oxyhemoglobin 96.8 (94-98) 03/24/21 08:57 ABG Carboxyhemoglobin 1.7 % (0.0-5.0) 03/23/21 04:50 ABG Methemoglobin 0.3 (0.0-1.5) 03/24/21 08:57 ABG Sodium 139.1 mmol/L (136.0-145.0) 03/24/21 08:57 ABG Potassium 3.9 mmol/L (3.40-4.50) 03/24/21 08:57 ABG Chloride 93.0 mmol/L (98-107) L 03/24/21 08:57 ABG Glucose 328 mg/dL (65-95) H 03/24/21 08:57 Oxyhemoglobin 96.9 % (95.0-99.0) 03/23/21 04:50 Carboxyhemoglobin 1.2 (0.5-1.5) 03/24/21 08:57 FiO2 40 % 03/23/21 04:50 FiO2 % 40 03/24/21 08:57 Sodium 140 mmol/L (137-145) 03/27/21 04:15 Potassium 5.3 mmol/L (3.6-5.0) H 03/27/21 04:15 Chloride 94.4 mmol/L (98-107) L 03/27/21 04:15 Carbon Dioxide 35 mmol/L (22-30) H 03/27/21 04:15 Anion Gap 16 mmol/L 03/27/21 04:15 BUN 20 mg/dL (7-17) H 03/27/21 04:15 Creatinine 0.4 mg/dL (0.6-1.2) L 03/27/21 04:15 Estimated GFR > 60 ml/min 03/27/21 04:15 BUN/Creatinine Ratio 50 % 03/27/21 04:15 Glucose 310 mg/dL (65-100) H 03/27/21 04:15 POC Glucose 179 mg/dL (70-105) H 03/27/21 21:21 Lactic Acid 4.00 mmol/L (0.7-2.0) H* 03/17/21 23:36 Calcium 8.3 mg/dL (8.4-10.2) L 03/27/21 04:15 Phosphorus 4.60 mg/dL (2.5-4.5) H D 03/27/21 04:15 Magnesium 2.10 mg/dL (1.7-2.3) 03/27/21 04:15 Total Bilirubin 0.30 mg/dL (0.1-1.2) 03/26/21 05:35 Direct Bilirubin < 0.2 mg/dL (0-0.2) 03/19/21 12:00 Indirect Bilirubin 0.1 mg/dL 03/19/21 12:00 AST 35 units/L (5-40) 03/26/21 05:35 ALT 169 units/L (7-56) H 03/26/21 05:35 Alkaline Phosphatase 138 units/L (35-129) H 03/26/21 05:35 Ammonia 26.0 umol/L (25-60) 03/19/21 12:00 Troponin T 0.015 ng/mL (0.00-0.029) 03/19/21 12:00 NT-Pro-B Natriuret Pep 576.0 pg/mL (0-900) 03/17/21 17:36 Total Protein 5.5 g/dL (6.3-8.2) L 03/26/21 05:35 Albumin 3.2 g/dL (3.9-5) L 03/26/21 05:35 Albumin/Globulin Ratio 1.4 % 03/26/21 05:35 Triglycerides 189 mg/dL (2-149) H 03/22/21 04:39 Cholesterol 191 mg/dL (50-199) 03/17/21 17:36 LDL Cholesterol Direct 80 mg/dL (50-130) 03/17/21 17:36 HDL Cholesterol 73 mg/dL (40-59) H 03/17/21 17:36 Cholesterol/HDL Ratio 2.61 % 03/17/21 17:36 Amylase 78 units/L (27-131) 03/19/21 Unknown Lipase 12 units/L (13-60) L 03/19/21 Unknown TSH 3.510 mlU/mL (0.270-4.200) 03/17/21 22:57 Arterial Blood Glucose 328 mg/dL (65-95) H 03/24/21 08:57 Arterial Blood Ionized Calcium 4.5 mg/dL (4.6-5.3) L 03/24/21 08:57 Urine Color Mayuri (Yellow) 03/17/21 19:42 Urine Turbidity Slightly-cloudy (Clear) 03/17/21 19:42 Urine pH 7.0 (5.0-7.0) 03/17/21 19:42 Ur Specific [place]ona 1.015 (1.003-1.030) 03/17/21 19:42 Urine Protein 100 mg/dl mg/dL (Negative) 03/17/21 19:42 Urine Glucose (UA) Neg mg/dL (Negative) 03/17/21 19:42 Urine Ketones 20 mg/dL (Negative) 03/17/21 19:42 Urine Blood Sm (Negative) 03/17/21 19:42 Urine Nitrite Neg (Negative) 03/17/21 19:42 Urine Bilirubin Neg (Negative) 03/17/21 19:42 Urine Urobilinogen 2.0 mg/dL (<2.0) 03/17/21 19:42 Ur Leukocyte Esterase Neg (Negative) 03/17/21 19:42 Urine WBC (Auto) 4.0 /HPF (0.0-6.0) 03/17/21 19:42 Urine RBC (Auto) 6.0 /HPF (0.0-6.0) 03/17/21 19:42 U Epithel Cells (Auto) 5.0 /HPF (0-13.0) 03/17/21 19:42 Urine Bacteria (Auto) 1+ /HPF (Negative) 03/17/21 19:42 Urine Mucus 1+ /HPF 03/17/21 19:42 Urine Yeast (Budding) Few /HPF 03/17/21 19:42 Acetaminophen 5.0 ug/mL (10.0-30.0) L 03/18/21 23:07 Coronavirus (PCR) Negative (Negative) 03/19/21 Unknown Blood Type A POSITIVE 03/21/21 14:08 Antibody Screen Negative 03/21/21 14:08 Crossmatch See Detail 03/21/21 14:08 Microbiology: Microbiology 03/26/21 Unknown Tracheal Aspirate Sputum Culture - Preliminary 03/26/21 08:06 Peripheral/Venous Blood Culture - Preliminary NO GROWTH AFTER 24 HOURS 03/26/21 08:06 Peripheral/Venous Blood Culture - Preliminary NO GROWTH AFTER 24 HOURS [place]/IV: Voiding Method External Female Catheter Active Medications - Current Medications Current Medications: Generic Name Dose Route Start Last Admin Trade Name Freq PRN Reason Stop Dose Admin Acetaminophen 650 mg 03/18/21 00:05 Acetaminophen 325 Mg Tab PO Q6H PRN Pain MILD(1-3)/Fever >100.5/TOVAR Albuterol 2.5 mg 03/22/21 08:00 Albuterol 2.5 Mg/3 Ml Nebu IH Q6H PRN Wheezing Alprazolam 1 mg 03/26/21 10:53 03/27/21 22:00 Alprazolam 1 Mg Tab PO 1 mg Q8H PRN Administration AGITATION Lipase/Protease/Amylase 1 each 03/19/21 18:16 Lipase 10,500/Protease 25,000/Amylase 43,750 (Units) Dr Newman FEEDTUBE PRN PRN For Clogged Feeding Tube Arformoterol Tartrate 15 mcg 03/24/21 11:00 03/27/21 19:26 Arformoterol 15 Mcg/2 Ml Nebu IH 15 mcg Q12HRT BUTCH Administration Atorvastatin Calcium 10 mg 03/19/21 22:00 03/27/21 21:59 Atorvastatin 10 Mg Tab PO 10 mg QHS BUTCH Administration Budesonide 0.5 mg 03/24/21 11:00 03/27/21 19:26 Budesonide 0.5 Mg/2 Ml Nebu IH 0.5 mg Q12HRT BUTCH Administration Buspirone HCl 5 mg 03/25/21 14:00 03/27/21 22:00 Buspirone 5 Mg Tab PO 5 mg BID BUTCH Administration Dextrose 0 ml 03/17/21 23:58 Dextrose 50% In Water (25gm) 50 Ml Syringe IV Q30MIN PRN Hypoglycemia Protocol Docusate Sodium 100 mg 03/23/21 10:00 03/27/21 22:00 Docusate Sodium 100 Mg/10 Ml Oral Liqd PO 100 mg BID BUTCH Administration Duloxetine HCl 60 mg 03/26/21 10:00 Duloxetine 30 Mg Cap PO QDAY BUTCH Famotidine 20 mg 03/20/21 22:00 03/27/21 22:00 Famotidine 20 Mg Tab FEEDTUBE 20 mg BID BUTCH Administration Fentanyl 50 mcg 03/26/21 10:08 03/27/21 20:13 Fentanyl 100 Mcg/2 Ml Inj IV 50 mcg Q2H PRN Administration Pain, Moderate (4-6) Heparin Sodium (Porcine) 5,000 unit 03/18/21 06:00 03/27/21 21:59 Heparin 5,000 Unit/1 Ml Vial SUB-Q 5,000 unit Q8HR BUTCH Administration Hydrophilic Ointment 1 applic 03/17/21 17:35 Lip Therapy Vaseline TP Q2HR PRN Dry Lips Dexmedetomidine HCl 400 mcg/ 104 mls @ 4.306 mls/hr 03/21/21 13:00 03/27/21 23:15 Sodium Chloride IV 0.8 mcg/kg/hr TITRATE BUTCH 17.222 mls/hr Administration Protocol 0.2 MCG/KG/HR Fentanyl Citrate 2,000 mcg in 100 mls @ 4.14 mls/hr 03/22/21 15:00 03/27/21 20:15 Fentanyl Drip Premix IV 2 mcg/kg/hr TITR BUTCH 8.28 mls/hr Titration Protocol 1 MCG/KG/HR Insulin Glargine 30 units 03/26/21 22:00 03/27/21 21:59 Insulin Glargine 100 Units/Ml SUB-Q 30 units QHS BUTCH Administration Insulin Human Lispro 0 unit 03/19/21 12:00 03/27/21 17:41 Insulin Lispro 100 Unit/Ml SUB-Q 4 unit Q6HR [facility] Administration Protocol Magnesium Hydroxide 30 ml 03/18/21 00:05 03/24/21 09:36 Magnesium Hydroxide (Mom) Oral Liqd Udc PO 30 ml Q4H PRN Administration Constipation Methylprednisolone Sodium Succinate 40 mg 03/25/21 22:00 03/27/21 21:59 Methylprednisolone Sod Succinate 40 Mg/1 Ml Inj IV 03/27/21 23:59 40 mg Q12HR BUTCH Administration Methylprednisolone Sodium Succinate 40 mg 03/28/21 10:00 Methylprednisolone Sod Succinate 40 Mg/1 Ml Inj IV Q24HR [facility] Metoprolol Tartrate 25 mg 03/20/21 22:00 03/27/21 22:00 Metoprolol Tartrate 25 Mg Tab PO 25 mg BID BUTCH Administration Morphine Sulfate 2 mg 03/18/21 00:05 Morphine 2 Mg/1 Ml Inj IV Q4H PRN Pain, Moderate (4-6) Morphine Sulfate 4 mg 03/18/21 00:05 Morphine 4 Mg/1 Ml Inj IV Q4H PRN Pain , Severe (7-10) Multi-Ingred Cream/Lotion/Oil/Oint 1 applic 03/17/21 17:35 Mineral Oil/Petrolatum, White Ophth Oint 3.5 Gm OU Q4HR PRN Dry Eye(s) Senna/Docusate Sodium 1 tab 03/17/21 22:00 03/27/21 21:59 Sennosides/Docusate Sodium 8.6/50 Mg Tab FEEDTUBE 1 tab BID BUTCH Administration Simple Syrup 15 ml 03/19/21 18:16 Simple Syrup 15 Ml FEEDTUBE PRN PRN Hypoglycemia Simple Syrup 30 ml 03/19/21 18:16 Simple Syrup 15 Ml FEEDTUBE PRN PRN Hypoglycemia Sodium Bicarbonate 325 mg 03/19/21 18:16 Sodium Bicarbonate 325 Mg Tab FEEDTUBE PRN PRN For Clogged Feeding Tube Sodium Chloride 10 ml 03/18/21 10:00 03/27/21 22:00 Sodium Chloride 0.9% 10 Ml Flush Syringe IV 10 ml BID BUTCH Administration Sodium Chloride 10 ml 03/17/21 23:58 03/22/21 23:20 Sodium Chloride 0.9% 10 Ml Flush Syringe IV 10 ml PRN PRN Administration LINE FLUSH Nutrition/Malnutrition Assess - Dietary Evaluation Nutrition/Malnutrition Findings: Nutrition Notes Start: 03/18/21 09:46 Freq: Status: Active Protocol: Document 03/23/21 18:25 PAM (Rec: 03/23/21 18:30 PAM [id number]) Nutrition Notes Initial or Follow up Brief Note Current Diet TF-Promote @ 70 ml/hr (since D 03/19). Weight change and time frame No body weight change reported . Subjective/Other Information RD consult for TF tolerance. TF continues as prescribed. Percent of energy/protein needs met: Prescribed Promote @ 70 ml/hr provides for energy/protein needs (1,680 Kcal/105 g) during LOS. #1 Nutrition Diagnosis Inadequate oral intake Diagnosis Progress(for reassessment Continues documentation) Nutrition Intervention Nutrition Support: Continue Promote @ 70 ml/hr. Flush: 50 ml water Q 4 hr. Goal #1 Provide at least 75% of energy /protein needs through Enteral Feeding during LOS. Follow-Up By: 03/30/21 Additional Comments Continue monitoring TF tolerance, and BM.
--- NOTE | 2021-03-24 22:06 | Progress Note ---
Assessment and Plan Imp: 1. Centriobular emphysema 2. Acute bronchitis 3. COPD exac. 4. A/C respiratory failure, hypoxia and hypercapnea Rec: 1. Cont. Solumedrol IV same dose 2. Added Budesonide/Brovana BID 3. On Precedex/Fentanyl 4. Daily SAT/SBT 5. Patient with very severe COPD based on office PFTs; even with a tracheostomy she may have difficulty weaning from the ventilator; consider another trial of extubation directly to BIPAP in the coming week; prognosis is guarded to poor 6. TFs, GI/DVT PPx 7. CCt 31 minutes No family present Subjective Date of service: 03/24/21 Principal diagnosis: Atrial fibrillation with RVR, respiratory failure Interval history: No events. On Ventilator. Sedated but arouses and is appropriate. Active Medications Acetaminophen (Acetaminophen 325 Mg Tab) 650 mg PO Q6H PRN PRN Reason: Pain MILD(1-3)/Fever >100.5/TOVAR Albuterol (Albuterol 2.5 Mg/3 Ml Nebu) 2.5 mg IH Q6H PRN PRN Reason: Wheezing Lipase/Protease/Amylase (Lipase 10,500/Protease 25,000/Amylase 43,750 (Units) Dr Newman) 1 each FEEDTUBE PRN PRN PRN Reason: For Clogged Feeding Tube Arformoterol Tartrate (Arformoterol 15 Mcg/2 Ml Nebu) 15 mcg IH Q12HRT [facility] Last Admin: 03/24/21 21:05 Dose: Not Given Documented by: Atorvastatin Calcium (Atorvastatin 10 Mg Tab) 10 mg PO QHS [facility] Last Admin: 03/24/21 21:02 Dose: 10 mg Documented by: Budesonide (Budesonide 0.5 Mg/2 Ml Nebu) 0.5 mg IH Q12HRT [facility] Last Admin: 03/24/21 21:05 Dose: Not Given Documented by: Dextrose (Dextrose 50% In Water (25gm) 50 Ml Syringe) 0 ml IV Q30MIN PRN; Protocol PRN Reason: Hypoglycemia Docusate Sodium (Docusate Sodium 100 Mg/10 Ml Oral Liqd) 100 mg PO BID [facility] Last Admin: 03/24/21 21:03 Dose: 100 mg Documented by: Famotidine (Famotidine 20 Mg Tab) 20 mg FEEDTUBE BID [facility] Last Admin: 03/24/21 21:02 Dose: 20 mg Documented by: Heparin Sodium (Porcine) (Heparin 5,000 Unit/1 Ml Vial) 5,000 unit SUB-Q Q8HR [facility] Last Admin: 03/24/21 14:43 Dose: 5,000 unit Documented by: Hydrophilic Ointment (Lip Therapy Vaseline) 1 applic TP Q2HR PRN PRN Reason: Dry Lips Dexmedetomidine HCl 400 mcg/ (Sodium Chloride) 104 mls @ 4.306 mls/hr IV TITRATE [facility]; Protocol Last Admin: 03/24/21 21:03 Dose: 1.3 mcg/kg/hr, 27.986 mls/hr Documented by: Fentanyl Citrate (Fentanyl Drip Premix) 2,000 mcg in 100 mls @ 4.14 mls/hr IV TITR [facility]; Protocol Last Titration: 03/24/21 08:20 Dose: 1 mcg/kg/hr, 4.14 mls/hr Documented by: Insulin Glargine (Insulin Glargine 100 Units/Ml) 25 units SUB-Q QHS [facility] Last Admin: 03/24/21 21:06 Dose: 25 units Documented by: Insulin Human Lispro (Insulin Lispro 100 Unit/Ml) 0 unit SUB-Q Q6HR [facility]; Protocol Last Admin: 03/24/21 18:23 Dose: 8 unit Documented by: Magnesium Hydroxide (Magnesium Hydroxide (Mom) Oral Liqd Udc) 30 ml PO Q4H PRN PRN Reason: Constipation Last Admin: 03/24/21 09:36 Dose: 30 ml Documented by: Methylprednisolone Sodium Succinate (Methylprednisolone Sod Succinate 40 Mg/1 Ml Inj) 40 mg IV Q8H [facility] Last Admin: 03/24/21 21:02 Dose: 40 mg Documented by: Metoprolol Tartrate (Metoprolol Tartrate 25 Mg Tab) 25 mg PO BID [facility] Last Admin: 03/24/21 21:01 Dose: 25 mg Documented by: Midazolam HCl (Midazolam 2 Mg/2 Ml Inj) 2 mg IV Q4HR PRN PRN Reason: Agitation Last Admin: 03/23/21 06:25 Dose: 2 mg Documented by: Morphine Sulfate (Morphine 2 Mg/1 Ml Inj) 2 mg IV Q4H PRN PRN Reason: Pain, Moderate (4-6) Morphine Sulfate (Morphine 4 Mg/1 Ml Inj) 4 mg IV Q4H PRN PRN Reason: Pain , Severe (7-10) Multi-Ingred Cream/Lotion/Oil/Oint (Mineral Oil/Petrolatum, White Ophth Oint 3.5 Gm) 1 applic OU Q4HR PRN PRN Reason: Dry Eye(s) Senna/Docusate Sodium (Sennosides/Docusate Sodium 8.6/50 Mg Tab) 1 tab FEEDTUBE BID [facility] Last Admin: 03/24/21 21:02 Dose: 1 tab Documented by: Simple Syrup (Simple Syrup 15 Ml) 15 ml FEEDTUBE PRN PRN PRN Reason: Hypoglycemia Simple Syrup (Simple Syrup 15 Ml) 30 ml FEEDTUBE PRN PRN PRN Reason: Hypoglycemia Sodium Bicarbonate (Sodium Bicarbonate 325 Mg Tab) 325 mg FEEDTUBE PRN PRN PRN Reason: For Clogged Feeding Tube Sodium Chloride (Sodium Chloride 0.9% 10 Ml Flush Syringe) 10 ml IV BID [facility] Last Admin: 03/24/21 10:23 Dose: 10 ml Documented by: Sodium Chloride (Sodium Chloride 0.9% 10 Ml Flush Syringe) 10 ml IV PRN PRN PRN Reason: LINE FLUSH Last Admin: 03/22/21 23:20 Dose: 10 ml Documented by: Objective Vital Signs - 12hr 03/24/21 03/24/21 03/24/21 10:15 10:30 10:45 Temperature Pulse Rate 65 65 61 Pulse Rate [ From Monitor] Respiratory 16 13 19 Rate Blood Pressure 120/68 121/70 121/70 O2 Sat by Pulse 100 100 100 Oximetry 03/24/21 03/24/21 03/24/21 11:00 11:15 11:30 Temperature Pulse Rate 61 65 73 Pulse Rate [ From Monitor] Respiratory 18 18 18 Rate Blood Pressure 115/66 115/66 106/62 O2 Sat by Pulse 100 100 100 Oximetry 03/24/21 03/24/21 03/24/21 11:45 12:00 12:15 Temperature 98.1 F Pulse Rate 74 73 72 Pulse Rate [ 73 From Monitor] Respiratory 13 18 15 Rate Blood Pressure 106/62 113/66 113/66 O2 Sat by Pulse 98 100 100 Oximetry 03/24/21 03/24/21 03/24/21 12:30 12:38 12:45 Temperature Pulse Rate 78 85 68 Pulse Rate [ From Monitor] Respiratory 16 18 Rate Blood Pressure 123/75 123/75 123/75 O2 Sat by Pulse 100 100 100 Oximetry 03/24/21 03/24/21 03/24/21 13:00 13:15 13:30 Temperature Pulse Rate 67 70 66 Pulse Rate [ From Monitor] Respiratory 21 17 18 Rate Blood Pressure 123/73 123/73 137/69 O2 Sat by Pulse 100 100 99 Oximetry 03/24/21 03/24/21 03/24/21 13:45 14:00 14:15 Temperature Pulse Rate 73 76 72 Pulse Rate [ From Monitor] Respiratory 17 18 17 Rate Blood Pressure 137/69 134/71 134/71 O2 Sat by Pulse 99 100 Oximetry 03/24/21 03/24/21 03/24/21 14:30 15:00 15:30 Temperature Pulse Rate 60 75 64 Pulse Rate [ From Monitor] Respiratory 18 18 19 Rate Blood Pressure 123/67 142/73 124/82 O2 Sat by Pulse 100 99 100 Oximetry 03/24/21 03/24/21 03/24/21 16:00 16:30 17:00 Temperature 98.1 F Pulse Rate 73 60 77 Pulse Rate [ 67 From Monitor] Respiratory 17 21 17 Rate Blood Pressure 132/77 123/85 117/84 O2 Sat by Pulse 100 100 99 Oximetry 03/24/21 03/24/21 03/24/21 17:30 18:00 18:30 Temperature Pulse Rate 60 72 62 Pulse Rate [ From Monitor] Respiratory 16 18 16 Rate Blood Pressure 123/67 119/73 134/70 O2 Sat by Pulse 100 100 100 Oximetry 03/24/21 03/24/21 03/24/21 19:30 19:34 21:01 Temperature 98.3 F Pulse Rate 67 79 Pulse Rate [ From Monitor] Respiratory Rate Blood Pressure 140/67 139/74 O2 Sat by Pulse 100 Oximetry Constitutional: other (critically ill on vent, sedated) Eyes: non-icteric ENT: oropharynx moist Neck: supple Effort: normal Ascultation: Bilateral: diminished breath sounds Cardiovascular: regular rate and rhythm (no mrg) Gastrointestinal: normoactive bowel sounds, soft, non-tender, non-distended Extremities: no cyanosis, no edema, pink and warm Neurologic: normal mental status, non-focal exam, pupils equal and round Psychiatric: mood appropriate, affect normal CBC and BMP: 03/24/21 08:03 03/24/21 08:03 ABG, PT/INR, D-dimer: ABG ABG pH 7.477 (7.320-7.450) H 03/24/21 08:57 POC ABG pCO2 56.9 mmHg (32.0-48.0) H 03/24/21 08:57 ABG pCO2 72.7 mm Hg 03/23/21 04:50 POC ABG pO2 100.6 mmHg (83-108) 03/24/21 08:57 ABG pO2 70.7 mm Hg (80.0-90.0) L 03/23/21 04:50 POC ABG HCO3 41.1 03/24/21 08:57 ABG O2 Saturation 98.3 (0-100) 03/24/21 08:57 PT/INR, D-dimer PT 12.6 Sec. (12.2-14.9) 03/17/21 17:37 INR 0.85 (0.87-1.13) L 03/17/21 17:37 D-Dimer 947.92 ng/mlDDU (0-234) H 03/17/21 17:37 Abnormal lab findings: Abnormal Labs 03/17/21 03/17/21 03/17/21 17:36 17:36 17:37 WBC 13.8 H RBC 3.48 L Hgb 7.0 L Hct 26.2 L MCV 75 L MCH 20 L MCHC 27 L RDW 25.4 H Plt Count Seg Neuts % (Manual) Lymphocytes % (Manual) Monocytes % (Manual) Nucleated RBC % 7.0 H Seg Neutrophils # Man 8.7 H Lymphocytes # (Manual) Monocytes # (Manual) INR 0.85 L APTT 23.3 L D-Dimer 947.92 H ABG pH POC ABG pCO2 POC ABG pO2 ABG pO2 ABG HCO3 ABG O2 Saturation ABG Base Excess ABG Hemoglobin ABG Oxyhemoglobin ABG Potassium ABG Chloride ABG Glucose Oxyhemoglobin Potassium Chloride 88.2 L Carbon Dioxide 38 H BUN Creatinine Glucose 129 H POC Glucose Lactic Acid Magnesium AST 177 H ALT 251 H Alkaline Phosphatase Ammonia Troponin T 0.036 H Total Protein 5.9 L Albumin 3.8 L Triglycerides 173 H HDL Cholesterol 73 H Lipase Arterial Blood Glucose Arterial Blood Ionized Calcium Acetaminophen Crossmatch 03/17/21 03/17/2103/17/21 18:15 18:40 18:40 WBC RBC Hgb Hct MCV MCH MCHC RDW Plt Count Seg Neuts % (Manual) Lymphocytes % (Manual) Monocytes % (Manual) Nucleated RBC % Seg Neutrophils # Man Lymphocytes # (Manual) Monocytes # (Manual) INR APTT D-Dimer ABG pH POC ABG pCO2 POC ABG pO2 ABG pO2 94.4 H ABG HCO3 44.8 H ABG O2 Saturation ABG Base Excess 16.6 H ABG Hemoglobin ABG Oxyhemoglobin ABG Potassium ABG Chloride ABG Glucose Oxyhemoglobin Potassium Chloride Carbon Dioxide BUN Creatinine Glucose POC Glucose Lactic Acid 4.00 H* Magnesium AST ALT Alkaline Phosphatase Ammonia 116.0 H Troponin T Total Protein Albumin Triglycerides HDL Cholesterol Lipase Arterial Blood Glucose Arterial Blood Ionized Calcium Acetaminophen Crossmatch 03/17/21 03/18/21 03/18/21 23:36 00:25 23:07 WBC RBC Hgb Hct MCV MCH MCHC RDW Plt Count Seg Neuts % (Manual) Lymphocytes % (Manual) Monocytes % (Manual) Nucleated RBC % Seg Neutrophils # Man Lymphocytes # (Manual) Monocytes # (Manual) INR APTT D-Dimer ABG pH POC ABG pCO2 POC ABG pO2 ABG pO2 68.1 L ABG HCO3 40.2 H ABG O2 Saturation ABG Base Excess 14.4 H ABG Hemoglobin 6.5 L ABG Oxyhemoglobin ABG Potassium ABG Chloride ABG Glucose Oxyhemoglobin Potassium Chloride Carbon Dioxide BUN Creatinine Glucose POC Glucose Lactic Acid 4.00 H* Magnesium AST ALT Alkaline Phosphatase Ammonia Troponin T Total Protein Albumin Triglycerides HDL Cholesterol Lipase Arterial Blood Glucose Arterial Blood Ionized Calcium Acetaminophen 5.0 L Crossmatch 03/19/21 03/19/21 03/19/21 00:50 03:25 04:59 WBC RBC 3.43 L Hgb 7.0 L Hct 25.6 L MCV 75 L MCH 20 L MCHC 27 L RDW 25.6 H Plt Count Seg Neuts % (Manual) 91.0 H Lymphocytes % (Manual) Monocytes % (Manual) 9.0 H Nucleated RBC % 3.0 H Seg Neutrophils # Man 9.0 H Lymphocytes # (Manual) 0.0 L Monocytes # (Manual) INR APTT D-Dimer ABG pH 7.531 H POC ABG pCO2 POC ABG pO2 ABG pO2 49.6 L ABG HCO3 31.4 H ABG O2 Saturation 99.6 H ABG Base Excess 8.1 H ABG Hemoglobin 7.2 L ABG Oxyhemoglobin ABG Potassium ABG Chloride ABG Glucose Oxyhemoglobin Potassium Chloride Carbon Dioxide BUN Creatinine Glucose POC Glucose 127 H Lactic Acid Magnesium AST ALT Alkaline Phosphatase Ammonia Troponin T Total Protein Albumin Triglycerides HDL Cholesterol Lipase Arterial Blood Glucose Arterial Blood Ionized Calcium Acetaminophen Crossmatch 03/19/21 03/19/21 03/19/21 04:59 10:37 12:00 WBC RBC Hgb Hct MCV MCH MCHC RDW Plt Count Seg Neuts % (Manual) Lymphocytes % (Manual) Monocytes % (Manual) Nucleated RBC % Seg Neutrophils # Man Lymphocytes # (Manual) Monocytes # (Manual) INR APTT D-Dimer ABG pH 7.494 H POC ABG pCO2 POC ABG pO2 ABG pO2 107.3 H ABG HCO3 31.6 H ABG O2 Saturation ABG Base Excess 7.7 H ABG Hemoglobin 7.1 L ABG Oxyhemoglobin ABG Potassium ABG Chloride ABG Glucose Oxyhemoglobin Potassium Chloride 89.5 L Carbon Dioxide BUN Creatinine Glucose 121 H POC Glucose Lactic Acid Magnesium AST 359 H ALT 1434 H Alkaline Phosphatase Ammonia Troponin T Total Protein 5.7 L Albumin 3.5 L Triglycerides HDL Cholesterol Lipase Arterial Blood Glucose Arterial Blood Ionized Calcium Acetaminophen Crossmatch 03/19/21 03/19/21 03/19/21 12:05 17:52 23:23 WBC RBC Hgb Hct MCV MCH MCHC RDW Plt Count Seg Neuts % (Manual) Lymphocytes % (Manual) Monocytes % (Manual) Nucleated RBC % Seg Neutrophils # Man Lymphocytes # (Manual) Monocytes # (Manual) INR APTT D-Dimer ABG pH POC ABG pCO2 POC ABG pO2 ABG pO2 ABG HCO3 ABG O2 Saturation ABG Base Excess ABG Hemoglobin ABG Oxyhemoglobin ABG Potassium ABG Chloride ABG Glucose Oxyhemoglobin Potassium Chloride Carbon Dioxide BUN Creatinine Glucose POC Glucose 122 H 114 H 187 H Lactic Acid Magnesium AST ALT Alkaline Phosphatase Ammonia Troponin T Total Protein Albumin Triglycerides HDL Cholesterol Lipase Arterial Blood Glucose Arterial Blood Ionized Calcium Acetaminophen Crossmatch 03/19/21 03/20/21 03/20/21 Unknown 03:50 03:57 WBC RBC Hgb Hct MCV MCH MCHC RDW Plt Count Seg Neuts % (Manual) Lymphocytes % (Manual) Monocytes % (Manual) Nucleated RBC % Seg Neutrophils # Man Lymphocytes # (Manual) Monocytes # (Manual) INR APTT D-Dimer ABG pH 7.477 H POC ABG pCO2 POC ABG pO2 ABG pO2 67.9 L ABG HCO3 33.9 H ABG O2 Saturation ABG Base Excess 9.5 H ABG Hemoglobin 6.7 L ABG Oxyhemoglobin ABG Potassium ABG Chloride ABG Glucose Oxyhemoglobin Potassium Chloride Carbon Dioxide BUN Creatinine Glucose POC Glucose 247 H Lactic Acid Magnesium AST ALT Alkaline Phosphatase Ammonia Troponin T Total Protein Albumin Triglycerides HDL Cholesterol Lipase 12 L Arterial Blood Glucose Arterial Blood Ionized Calcium Acetaminophen Crossmatch 03/20/21 03/20/21 03/20/21 04:18 04:18 10:16 WBC RBC 3.48 L Hgb 7.0 L Hct 25.3 L MCV 73 L MCH 20 L MCHC 28 L RDW 25.2 H Plt Count 541 H Seg Neuts % (Manual) Lymphocytes % (Manual) Monocytes % (Manual) Nucleated RBC % Seg Neutrophils # Man Lymphocytes # (Manual) Monocytes # (Manual) INR APTT D-Dimer ABG pH POC ABG pCO2 POC ABG pO2 ABG pO2 63.3 L ABG HCO3 34.0 H ABG O2 Saturation 90.0 L ABG Base Excess 7.9 H ABG Hemoglobin 10.5 L ABG Oxyhemoglobin ABG Potassium ABG Chloride ABG Glucose Oxyhemoglobin 88.1 L Potassium Chloride 91.6 L Carbon Dioxide BUN 22 H Creatinine Glucose 245 H POC Glucose Lactic Acid Magnesium AST 148 H ALT 1096 H Alkaline Phosphatase 133 H Ammonia Troponin T Total Protein Albumin 3.5 L Triglycerides HDL Cholesterol Lipase Arterial Blood Glucose Arterial Blood Ionized Calcium Acetaminophen Crossmatch 03/20/21 03/20/21 03/21/21 12:05 17:26 00:18 WBC RBC Hgb Hct MCV MCH MCHC RDW Plt Count Seg Neuts % (Manual) Lymphocytes % (Manual) Monocytes % (Manual) Nucleated RBC % Seg Neutrophils # Man Lymphocytes # (Manual) Monocytes # (Manual) INR APTT D-Dimer ABG pH POC ABG pCO2 POC ABG pO2 ABG pO2 ABG HCO3 ABG O2 Saturation ABG Base Excess ABG Hemoglobin ABG Oxyhemoglobin ABG Potassium ABG Chloride ABG Glucose Oxyhemoglobin Potassium Chloride Carbon Dioxide BUN Creatinine Glucose POC Glucose 226 H 215 H 323 H Lactic Acid Magnesium AST ALT Alkaline Phosphatase Ammonia Troponin T Total Protein Albumin Triglycerides HDL Cholesterol Lipase Arterial Blood Glucose Arterial Blood Ionized Calcium Acetaminophen Crossmatch 03/21/21 03/21/21 03/21/21 04:00 05:05 09:28 WBC 12.0 H RBC 3.42 L Hgb 6.8 L Hct 25.3 L MCV 74 L MCH 20 L MCHC 27 L RDW 25.1 H Plt Count 650 H Seg Neuts % (Manual) Lymphocytes % (Manual) Monocytes % (Manual) Nucleated RBC % Seg Neutrophils # Man Lymphocytes # (Manual) Monocytes # (Manual) INR APTT D-Dimer ABG pH 7.348 L POC ABG pCO2 POC ABG pO2 ABG pO2 56.3 L ABG HCO3 36.9 H ABG O2 Saturation 83.4 L ABG Base Excess 10.0 H ABG Hemoglobin 7.0 L ABG Oxyhemoglobin ABG Potassium ABG Chloride ABG Glucose Oxyhemoglobin 81.7 L Potassium Chloride Carbon Dioxide BUN Creatinine Glucose POC Glucose 311 H Lactic Acid Magnesium AST ALT Alkaline Phosphatase Ammonia Troponin T Total Protein Albumin Triglycerides HDL Cholesterol Lipase Arterial Blood Glucose Arterial Blood Ionized Calcium Acetaminophen Crossmatch 03/21/21 03/21/21 03/21/21 09:28 12:31 14:08 WBC RBC Hgb Hct MCV MCH MCHC RDW Plt Count Seg Neuts % (Manual) Lymphocytes % (Manual) Monocytes % (Manual) Nucleated RBC % Seg Neutrophils # Man Lymphocytes # (Manual) Monocytes # (Manual) INR APTT D-Dimer ABG pH POC ABG pCO2 POC ABG pO2 ABG pO2 ABG HCO3 ABG O2 Saturation ABG Base Excess ABG Hemoglobin ABG Oxyhemoglobin ABG Potassium ABG Chloride ABG Glucose Oxyhemoglobin Potassium 5.1 H D Chloride 94.4 L Carbon Dioxide 33 H BUN 32 H Creatinine Glucose 319 H POC Glucose 295 H Lactic Acid Magnesium 2.40 H AST ALT 697 H Alkaline Phosphatase 134 H Ammonia Troponin T Total Protein 5.8 L Albumin 3.4 L Triglycerides HDL Cholesterol Lipase Arterial Blood Glucose Arterial Blood Ionized Calcium Acetaminophen Crossmatch See Detail 03/22/21 03/22/21 03/22/21 00:14 04:30 04:39 WBC RBC Hgb Hct MCV MCH MCHC RDW Plt Count Seg Neuts % (Manual) Lymphocytes % (Manual) Monocytes % (Manual) Nucleated RBC % Seg Neutrophils # Man Lymphocytes # (Manual) Monocytes # (Manual) INR APTT D-Dimer ABG pH 7.310 L POC ABG pCO2 POC ABG pO2 ABG pO2 65.4 L ABG HCO3 38.3 H ABG O2 Saturation 90.8 L ABG Base Excess 10.9 H ABG Hemoglobin 6.4 L ABG Oxyhemoglobin ABG Potassium ABG Chloride ABG Glucose Oxyhemoglobin 88.7 L Potassium Chloride Carbon Dioxide BUN Creatinine Glucose POC Glucose 326 H Lactic Acid Magnesium AST ALT Alkaline Phosphatase Ammonia Troponin T Total Protein Albumin Triglycerides 189 H HDL Cholesterol Lipase Arterial Blood Glucose Arterial Blood Ionized Calcium Acetaminophen Crossmatch 03/22/21 03/22/21 03/22/21 04:39 04:39 09:45 WBC 12.8 H RBC 3.34 L Hgb 6.6 L Hct 24.5 L MCV 73 L MCH 20 L MCHC 27 L RDW 25.5 H Plt Count 644 H Seg Neuts % (Manual) Lymphocytes % (Manual) Monocytes % (Manual) Nucleated RBC % Seg Neutrophils # Man Lymphocytes # (Manual) Monocytes # (Manual) INR APTT D-Dimer ABG pH POC ABG pCO2 65.7 H POC ABG pO2 59.7 L ABG pO2 ABG HCO3 ABG O2 Saturation ABG Base Excess ABG Hemoglobin 8.0 L ABG Oxyhemoglobin 86.3 L ABG Potassium 4.7 H ABG Chloride 94.0 L ABG Glucose 208 H Oxyhemoglobin Potassium 5.3 H Chloride 94.6 L Carbon Dioxide 34 H BUN 33 H Creatinine Glucose 291 H POC Glucose Lactic Acid Magnesium AST ALT Alkaline Phosphatase Ammonia Troponin T Total Protein Albumin Triglycerides HDL Cholesterol Lipase Arterial Blood Glucose 208 H Arterial Blood Ionized Calcium Acetaminophen Crossmatch 03/22/21 03/22/21 03/23/21 21:33 23:58 04:42 WBC 14.3 H RBC 3.63 L Hgb 7.6 L Hct 27.0 L MCV 74 L MCH 21 L MCHC 28 L RDW 23.1 H Plt Count 567 H Seg Neuts % (Manual) Lymphocytes % (Manual) Monocytes % (Manual) Nucleated RBC % Seg Neutrophils # Man Lymphocytes # (Manual) Monocytes # (Manual) INR APTT D-Dimer ABG pH POC ABG pCO2 POC ABG pO2 ABG pO2 ABG HCO3 ABG O2 Saturation ABG Base Excess ABG Hemoglobin ABG Oxyhemoglobin ABG Potassium ABG Chloride ABG Glucose Oxyhemoglobin Potassium Chloride Carbon Dioxide BUN Creatinine Glucose POC Glucose 170 H 156 H Lactic Acid Magnesium AST ALT Alkaline Phosphatase Ammonia Troponin T Total Protein Albumin Triglycerides HDL Cholesterol Lipase Arterial Blood Glucose Arterial Blood Ionized Calcium Acetaminophen Crossmatch 03/23/21 03/23/21 03/23/21 04:42 04:50 22:25 WBC RBC Hgb Hct MCV MCH MCHC RDW Plt Count Seg Neuts % (Manual) Lymphocytes % (Manual) Monocytes % (Manual) Nucleated RBC % Seg Neutrophils # Man Lymphocytes # (Manual) Monocytes # (Manual) INR APTT D-Dimer ABG pH POC ABG pCO2 POC ABG pO2 ABG pO2 70.7 L ABG HCO3 41.7 H ABG O2 Saturation ABG Base Excess 15.2 H ABG Hemoglobin 5.6 L ABG Oxyhemoglobin ABG Potassium ABG Chloride ABG Glucose Oxyhemoglobin Potassium Chloride 94.6 L Carbon Dioxide 37 H BUN 27 H Creatinine Glucose 311 H POC Glucose 295 H Lactic Acid Magnesium AST ALT Alkaline Phosphatase Ammonia Troponin T Total Protein Albumin Triglycerides HDL Cholesterol Lipase Arterial Blood Glucose Arterial Blood Ionized Calcium Acetaminophen Crossmatch 03/23/21 03/24/21 03/24/21 23:13 05:13 07:59 WBC RBC Hgb Hct MCV MCH MCHC RDW Plt Count Seg Neuts % (Manual) Lymphocytes % (Manual) Monocytes % (Manual) Nucleated RBC % Seg Neutrophils # Man Lymphocytes # (Manual) Monocytes # (Manual) INR APTT D-Dimer ABG pH POC ABG pCO2 POC ABG pO2 ABG pO2 ABG HCO3 ABG O2 Saturation ABG Base Excess ABG Hemoglobin ABG Oxyhemoglobin ABG Potassium ABG Chloride ABG Glucose Oxyhemoglobin Potassium Chloride Carbon Dioxide BUN Creatinine Glucose POC Glucose 336 H 303 H 333 H Lactic Acid Magnesium AST ALT Alkaline Phosphatase Ammonia Troponin T Total Protein Albumin Triglycerides HDL Cholesterol Lipase Arterial Blood Glucose Arterial Blood Ionized Calcium Acetaminophen Crossmatch 03/24/21 03/24/21 03/24/21 08:03 08:03 08:57 WBC 12.7 H RBC 3.48 L Hgb 7.3 L Hct 26.3 L MCV 76 L MCH 21 L MCHC 28 L RDW 24.1 H Plt Count 499 H Seg Neuts % (Manual) Lymphocytes % (Manual) 1.0 L Monocytes % (Manual) 16.0 H Nucleated RBC % 11.0 H Seg Neutrophils # Man 8.1 H Lymphocytes # (Manual) 0.1 L Monocytes # (Manual) 2.1 H INR APTT D-Dimer ABG pH 7.477 H POC ABG pCO2 56.9 H POC ABG pO2 ABG pO2 ABG HCO3 ABG O2 Saturation ABG Base Excess ABG Hemoglobin 8.0 L ABG Oxyhemoglobin ABG Potassium ABG Chloride 93.0 L ABG Glucose 328 H Oxyhemoglobin Potassium Chloride 94.4 L Carbon Dioxide 38 H BUN 26 H Creatinine 0.5 L Glucose 348 H POC Glucose Lactic Acid Magnesium AST ALT Alkaline Phosphatase Ammonia Troponin T Total Protein Albumin Triglycerides HDL Cholesterol Lipase Arterial Blood Glucose 328 H Arterial Blood Ionized Calcium 4.5 L Acetaminophen Crossmatch 03/24/21 03/24/21 12:14 17:45 WBC RBC Hgb Hct MCV MCH MCHC RDW Plt Count Seg Neuts % (Manual) Lymphocytes % (Manual) Monocytes % (Manual) Nucleated RBC % Seg Neutrophils # Man Lymphocytes # (Manual) Monocytes # (Manual) INR APTT D-Dimer ABG pH POC ABG pCO2 POC ABG pO2 ABG pO2 ABG HCO3 ABG O2 Saturation ABG Base Excess ABG Hemoglobin ABG Oxyhemoglobin ABG Potassium ABG Chloride ABG Glucose Oxyhemoglobin Potassium Chloride Carbon Dioxide BUN Creatinine Glucose POC Glucose 315 H 324 H Lactic Acid Magnesium AST ALT Alkaline Phosphatase Ammonia Troponin T Total Protein Albumin Triglycerides HDL Cholesterol Lipase Arterial Blood Glucose Arterial Blood Ionized Calcium Acetaminophen Crossmatch Chest x-ray: report reviewed, image reviewed
[2021-03-24] MEDS: fentaNYL DRIP Premix 2,000 MCG/100 ML BAG IV SCH (22:49)
[2021-03-25] MEDS: INSULIN LISPRO 100 UNIT/ML SUB-Q SCH ×4 (00:46→18:27)
[2021-03-25] MEDS: MIDAZOLAM 2 MG/2 ML INJ IV PRN ×2 (00:59→13:56)
[2021-03-25 05:54] LABS: Mean Corpuscular HGB Conc 28 % (30-34); Mean Corpuscular Volume 75 fl (79-97); Platelet Count 576 K/mm3 (140-440); Red Blood Count 3.67 M/mm3 (3.65-5.03)
[2021-03-25] MEDS: HEPARIN 5,000 UNIT/1 ML VIAL SUB-Q SCH ×3 (06:00→23:34)
[2021-03-25] MEDS: methylPREDNISolone Sod Succinate 40 MG/1 ML INJ IV SCH ×2 (06:04→23:34)
[2021-03-25 06:07] LABS: Hematocrit 27.4 % (30.3-42.9); Hemoglobin 7.5 gm/dl (10.1-14.3)
[2021-03-25] MEDS: BUDESONIDE 0.5 MG/2 ML NEBU IH SCH ×2 (08:49→19:46)
[2021-03-25] MEDS: ARFORMOTEROL 15 MCG/2 ML NEBU IH SCH ×2 (08:49→19:46)
[2021-03-25] MEDS: METOPROLOL TARTRATE 25 MG TAB PO SCH ×2 (10:37→23:32)
[2021-03-25] MEDS: SENNOSIDES/DOCUSATE SODIUM 8.6/50 MG TAB FEEDTUBE SCH ×2 (10:37→23:33)
[2021-03-25] MEDS: DOCUSATE SODIUM 100 MG/10 ML ORAL LIQD PO SCH (10:37)
[2021-03-25] MEDS: FAMOTIDINE 20 MG TAB FEEDTUBE SCH ×2 (10:38→23:33)
--- NOTE | 2021-03-25 10:53 | Progress Note ---
Assessment and Plan - Patient Problems (1) Anemia Current Visit: Yes Status: Acute (2) COPD exacerbation Current Visit: Yes Status: Acute (3) Respiratory failure Current Visit: Yes Status: Acute (4) Tachyarrhythmia Current Visit: Yes Status: Acute Subjective Date of service: 03/25/21 Principal diagnosis: Atrial fibrillation with RVR, respiratory failure Interval history: ALERT,, ON MECH. VENT. Objective Vital Signs Temp Pulse Pulse Pulse Resp Resp Resp 03/25/21 10:37 85 03/25/21 10:30 94 H 17 03/25/21 10:00 82 12 03/25/21 09:30 70 16 03/25/21 09:06 03/25/21 09:01 100 H 17 03/25/21 08:49 63 18 03/25/21 08:47 63 03/25/21 08:30 109 H 12 03/25/21 08:01 102 H 23 03/25/21 08:00 97.7 F 03/25/21 07:30 74 14 03/25/21 07:00 87 15 03/25/21 06:30 89 11 L 03/25/21 06:00 113 H 12 03/25/21 05:30 118 H 16 03/25/21 05:00 54 L 19 03/25/21 04:30 58 L 15 03/25/21 04:00 55 L 54 L 19 03/25/21 03:37 98.9 F 03/25/21 03:30 80 17 03/25/21 03:00 53 L 18 03/25/21 02:30 53 L 18 03/25/21 02:00 75 13 03/25/21 01:31 56 L 18 03/25/21 01:01 63 11 L 03/25/21 00:30 60 18 03/25/21 00:00 76 61 15 03/24/21 23:43 98.2 F 03/24/21 23:30 60 18 03/24/21 23:00 60 13 03/24/21 22:30 62 15 03/24/21 22:27 58 L 20 03/24/21 22:00 66 16 18 03/24/21 21:31 60 19 03/24/21 21:01 79 03/24/21 21:00 61 19 03/24/21 20:31 70 17 03/24/21 20:00 68 59 L 19 03/24/21 19:34 98.3 F 03/24/21 19:30 60 17 03/24/21 19:00 65 17 03/24/21 18:30 62 16 03/24/21 18:00 72 18 03/24/21 17:30 60 16 03/24/21 17:00 77 17 03/24/21 16:30 60 21 03/24/21 16:00 98.1 F 73 67 17 03/24/21 15:30 64 19 03/24/21 15:00 75 18 03/24/21 14:30 60 18 03/24/21 14:15 72 17 03/24/21 14:00 76 18 03/24/21 13:45 73 17 03/24/21 13:30 66 18 03/24/21 13:15 70 17 03/24/21 13:00 67 21 03/24/21 12:45 68 18 03/24/21 12:38 85 03/24/21 12:30 78 16 03/24/21 12:15 72 15 03/24/21 12:00 98.1 F 73 73 18 03/24/21 11:45 74 13 03/24/21 11:30 73 18 03/24/21 11:15 65 18 03/24/21 11:00 61 18 BP Pulse Ox 03/25/21 10:37 137/58 03/25/21 10:30 137/58 98 03/25/21 10:00 147/63 99 03/25/21 09:30 135/69 100 03/25/21 09:06 100 03/25/21 09:01 135/78 99 03/25/21 08:49 03/25/21 08:47 134/83 100 03/25/21 08:30 134/83 100 03/25/21 08:01 123/76 100 03/25/21 08:00 03/25/21 07:30 137/61 100 03/25/21 07:00 171/90 100 03/25/21 06:30 153/75 100 03/25/21 06:00 159/87 100 03/25/21 05:30 145/66 98 03/25/21 05:00 141/74 100 03/25/21 04:30 140/74 100 03/25/21 04:00 130/70 100 03/25/21 03:37 03/25/21 03:30 147/75 100 03/25/21 03:00 150/80 100 03/25/21 02:30 143/71 100 03/25/21 02:00 128/86 100 03/25/21 01:31 130/66 100 03/25/21 01:01 155/80 99 03/25/21 00:30 127/82 100 03/25/21 00:00 132/91 100 03/24/21 23:43 03/24/21 23:30 141/90 100 03/24/21 23:00 134/79 100 03/24/21 22:30 141/93 100 03/24/21 22:27 137/104 100 03/24/21 22:00 137/104 100 03/24/21 21:31 127/59 100 03/24/21 21:01 139/74 03/24/21 21:00 139/74 03/24/21 20:31 124/93 03/24/21 20:00 121/72 99 03/24/21 19:34 03/24/21 19:30 140/67 100 03/24/21 19:00 132/72 100 03/24/21 18:30 134/70 100 03/24/21 18:00 119/73 100 03/24/21 17:30 123/67 100 03/24/21 17:00 117/84 99 03/24/21 16:30 123/85 100 03/24/21 16:00 132/77 100 03/24/21 15:30 124/82 100 03/24/21 15:00 142/73 99 03/24/21 14:30 123/67 100 03/24/21 14:15 134/71 100 03/24/21 14:00 134/71 99 03/24/21 13:45 137/69 03/24/21 13:30 137/69 99 03/24/21 13:15 123/73 100 03/24/21 13:00 123/73 100 03/24/21 12:45 123/75 100 03/24/21 12:38 123/75 100 03/24/21 12:30 123/75 100 03/24/21 12:15 113/66 100 03/24/21 12:00 113/66 100 03/24/21 11:45 106/62 98 03/24/21 11:30 106/62 100 03/24/21 11:15 115/66 100 03/24/21 11:00 115/66 100 - Physical Examination General: Other (Intubated, on the vent) Neck: Positive: neck supple Cardiac: Positive: Reg Rate and Rhythm Lungs: Positive: Decreased Breath Sounds Neuro: Positive: Grossly Intact, Other (Intubated, sedated on the vent) Abdomen: Positive: Soft Skin: Positive: Clear Extremities: Present: normal - Labs and Meds CBC 03/24/21 03/25/21 Range/Units 08:03 04:00 WBC 12.7 H 15.8 H (4.5-11.0) K/mm3 RBC 3.67 (3.65-5.03) M/mm3 Hgb 7.5 L (10.1-14.3) gm/dl Hct 27.4 L (30.3-42.9) % Plt Count 576 H (140-440) K/mm3
[2021-03-25 11:03] LABS: Blood Urea Nitrogen 24 mg/dL (7-17); Calcium 8.9 mg/dL (8.4-10.2); Hemolysis Index 26
[2021-03-25 11:19] LABS: BUN/Creatinine Ratio 60
--- NOTE | 2021-03-25 13:14 | Progress Note ---
<VINNIEDARLENE RodriguezPorfirio - Last Filed: 03/25/21 17:28> Assessment and Plan Assessment and plan: This is a 50-year-old female with COPD with oxygen dependence, DM, severe anxiety, GERD, HLD, HTN and PAGE admitted with SVT and hypertensive urgency. Neuro: Hepatic/metabolic encephalopathy, h/o severe anxiety, depression -Admit ammonia 116, 03/09 ammonia 26 -Sedated with precedex and fentanyl gtt -RASS goal 0 to -1 -Avoid delirium -Maintain sleep-wake cycle -SAT when appropriate -Resume home Buspar -CT head on admit with no acute findings -Repeat CT head d/t AMS post extubation-> no acute changes Cardio: Hypertensive emergency, s/p A. fib with RVR, s/p SVT, h/o HTN, HLD -Cardiology consulted, appreciate recommendations -PO metoprolol BID -Resume home statin -Blood pressure monitoring per protocol -Echocardiogram 10/2020 showed EF of 50 to 55%, mild diastolic dysfunction, trace to mild tricuspid regurgitation, mild pulmonary hypertension, RVSP 45 mmHg Resp : Acute on chronic respiratory failure, h/o COPD and PAGE -CCM consulted, appreciate recommendations -CTA chest shows no CT evidence of pulmonary embolism, small right and trace left pleural effusion, upper lobe predominant emphysema -Intubated on 03/17 with 7.00 ETT at 20 at the lips and extubated 03/22 but reintubated shortly after -A.m. vent settings: Assist control tidal volume 400, rate 18, PEEP 6, 40% FiO2 -place don PSV this morning -See RT notes for titration -A.m. ABG and CXR noted -VAP bundle -SPO2 monitoring -Methylprednisone being weaned GI: Transaminitis (resolving), h/o chronic constipation -NTR consulted, appreciate recommendations -RUQ US shows right hydroureteronephrosis and possible gallbladder sludge or gallstones -Renal ultrasound shows mild right-sided hydronephrosis with parenchymal thinning and trace perinephric fluid. -PPI -BR: senakot S and colace, prn mom -24 hours +1837 mL : Hypochlormia, mild right hydroureteronephrosis -Trend BMP -FWF with TF -Strict I & Os -Wallis -Renal ultrasound shows mild right-sided hydronephrosis with parenchymal thinning and trace perinephric fluid. Endo: Hyperglycemia -Avoid hypoglycemia -SSI -Accucheck q 6hrs -Lantus -titrate as needed Heme: Anemia, Leukocytosis, h/o Microcytic anemia -Trend CBC -Transfuse for hbg <7 -s/p 1 unit prbc -SCDs to BLE while in bed -Lovenox subq ID: Gram positive cocci in tracheal aspirate -02/25 tracheal aspirate with few gram-positive cocci -s/p Levaquin (03/18-) -Trend WBC and fever curve The high probability of a clinically significant, sudden or life threatening deterioration of the [pulm/cv] system(s) required my full and direct attention, intervention and personal management. The aggregate critical care time was [60] minutes. This time is in addition to time spent performing reported procedures but includes the following: [x] Data Review and interpretation [x] Patient assessment and monitoring of vital signs [x] Documentation [x] Medication orders and management Disposition Plan: icu Total Time Spent with Patient (Minutes): 60 History Interval history: This is a 60-year-old female with COPD with oxygen dependence currently with palliative care, DM, former nicotine abuse, severe anxiety, GERD, HLD, HTN and PAGE presented to emergency department on 03/17 via EMS with complaints of shortness of breath. On arrival of EMS patient was found to be in SVT with a heart rate of about 200 and blood pressure to be quite elevated with systolic in 200s. She was given 6 mg of adenosine without significant changes subsequently given 12 mg of adenosine with improvement of her heart rate. Upon arrival to the emergency department patient was found to be in atrial fibrillation with RVR and dyspneic. Work-up in the emergency department revealed leukocytosis, lactic acidosis, transaminitis, hypoalbuminemia and a troponin leak. CXR, CT a chest and CT head were unremarkable. Patient was admitted to the hospitalist service with consults to [facility] and cardiology for further work-up of acute on chronic respiratory failure, SVT and hypertensive urgency. 03/18/2021: Patient is intubated and on vent support, Patient is in sinus tachycardia 03/19: COVID-19 PCR negative, remains on ventilatory support, Versed drip changed to propofol. No acute events reported overnight. Tracheal aspirate with few gram-positive Cocci. This afternoon, patient went in to the 150s, giving 500 mL NS bolus and fentanyl push to see if it pain related. If persists then will order prn Ativan per Dr. Gage recommendation. 03/20: Restarted on home metoprolol and abdominal ultrasound showed right hydronephrosis. Abd US shows right hydroureteronephrosis and will obtain a dedicated renal US. She seems to more comfortable on propofol and fentanyl 03/21: Patient's FiO2 had to be decreased overnight due to hypoxia and tachycardia. Hyperkalemia noted and given Kayexalate. 1 unit PRBC for hemoglobin 6.8. [facility] plans to extubate tomorrow. Increase in Lantus. 03/22: Transfuse one unit prbc, failed SBT in the AM d/t hypertension. [facility] extubated the patient but she was reintubated within [address] head o rdered and pending read. Given kionex x2 for hyperkalemia 03/23: This morning patient was only on Precedex drip and overnight she had agitation, hypertension and tachycardia. RN instructed to place fentanyl drip. Increase in Lantus for better glucose control. Will remove Wallis today. 03/24/2021: no acute events reported overnight. Patient remains intubated and is currently on fentanyl and Precedex. Increase in Lantus due to hyperglycemia. 03/25: no acute events overnight. increase in lantus and decreased steroids today. Hospitalist Physical - Constitutional Vitals: Temp Pulse Resp BP Pulse Ox 97.7 F 90 17 124/61 100 03/25/21 08:00 03/25/21 12:00 03/25/21 12:00 03/25/21 12:00 03/25/21 12:00 General appearance: Present: no acute distress, other (sedated) - EENT Eyes: Present: PERRL, EOM intact - Neck Neck: Present: normal ROM - Respiratory Respiratory effort: normal Respiratory: bilateral: CTA - Cardiovascular Rhythm: regular Heart Sounds: Present: S1 & S2. Absent: systolic murmur, diastolic murmur - Extremities Extremities: no ischemia, pulses intact, pulses symmetrical, normal temperature, normal color Extremity abnormal: edema Peripheral Pulses: within normal limits - Abdominal General gastrointestinal: soft, non-tender, non-distended, normal bowel sounds - Integumentary Integumentary: Present: warm, dry - Psychiatric Psychiatric: cooperative - Neurologic Neurologic: no focal deficits - Allied Health Allied health notes reviewed: nursing, RT HEART Score - HEART Score Troponin: Troponin T 0.015 ng/mL (0.00-0.029) 03/19/21 12:00 Results - Labs CBC & Chem 7: 03/25/21 04:00 03/25/21 07:52 Labs: Laboratory Last Values WBC 15.8 K/mm3 (4.5-11.0) H 03/25/21 04:00 RBC 3.67 M/mm3 (3.65-5.03) 03/25/21 04:00 Hgb 7.5 gm/dl (10.1-14.3) L 03/25/21 04:00 Hct 27.4 % (30.3-42.9) L 03/25/21 04:00 MCV 75 fl (79-97) L 03/25/21 04:00 MCH 21 pg (28-32) L 03/25/21 04:00 MCHC 28 % (30-34) L 03/25/21 04:00 RDW 24.0 % (13.2-15.2) H 03/25/21 04:00 Plt Count 576 K/mm3 (140-440) H 03/25/21 04:00 [place] % (Auto) Geothermal Operations Engineer 03/24/21 08:03 Add Manual Diff Complete 03/24/21 08:03 Total Counted 100 03/24/21 08:03 Seg Neuts % (Manual) 61.0 % (40.0-70.0) 03/24/21 08:03 Band Neutrophils % 17.0 % 03/24/21 08:03 Lymphocytes % (Manual) 1.0 % (13.4-35.0) L 03/24/21 08:03 Reactive Lymphs % (Man) 5.0 % 03/19/21 04:59 Monocytes % (Manual) 16.0 % (0.0-7.3) H 03/24/21 08:03 Metamyelocytes % 1.0 % 03/24/21 08:03 Myelocytes % 4.0 % 03/24/21 08:03 Promyelocytes % 3.0 % 03/19/21 04:59 Nucleated RBC % 11.0 % (0.0-0.9) H 03/24/21 08:03 Seg Neutrophils # Man 8.1 K/mm3 (1.8-7.7) H 03/24/21 08:03 Band Neutrophils # 2.2 K/mm3 03/24/21 08:03 Lymphocytes # (Manual) 0.1 K/mm3 (1.2-5.4) L 03/24/21 08:03 Abs React Lymphs (Man) 0.0 K/mm3 03/24/21 08:03 Monocytes # (Manual) 2.1 K/mm3 (0.0-0.8) H 03/24/21 08:03 Eosinophils # (Manual) 0.0 K/mm3 (0.0-0.4) 03/24/21 08:03 Basophils # (Manual) 0.0 K/mm3 (0.0-0.1) 03/24/21 08:03 Metamyelocytes # 0.1 K/mm3 03/24/21 08:03 Myelocytes # 0.5 K/mm3 03/24/21 08:03 Promyelocytes # 0.0 K/mm3 03/24/21 08:03 Blast Cells # 0.0 K/mm3 03/24/21 08:03 WBC Morphology Not Reportable 03/24/21 08:03 Hypersegmented Neuts Not Reportable 03/24/21 08:03 Hyposegmented Neuts Not Reportable 03/24/21 08:03 Hypogranular Neuts Not Reportable 03/24/21 08:03 Smudge Cells Not Reportable 03/24/21 08:03 Toxic Granulation Not Reportable 03/24/21 08:03 Toxic Vacuolation Not Reportable 03/24/21 08:03 Dohle Bodies Not Reportable 03/24/21 08:03 Pelger-Huet Anomaly Not Reportable 03/24/21 08:03 Florentino Rods Not Reportable 03/24/21 08:03 Platelet Estimate Consistent w auto 03/24/21 08:03 Clumped Platelets Not Reportable 03/24/21 08:03 Plt Clumps, EDTA Not Reportable 03/24/21 08:03 Large Platelets Not Reportable 03/24/21 08:03 Giant Platelets Not Reportable 03/24/21 08:03 Platelet Satelliting Not Reportable 03/24/21 08:03 Plt Morphology Comment Not Reportable 03/24/21 08:03 RBC Morphology Not Reportable 03/24/21 08:03 Dimorphic RBCs Not Reportable 03/24/21 08:03 Polychromasia 2+ 03/24/21 08:03 Hypochromasia Not Reportable 03/24/21 08:03 Poikilocytosis Not Reportable 03/24/21 08:03 Anisocytosis 2+ 03/24/21 08:03 Microcytosis Not Reportable 03/24/21 08:03 Macrocytosis Not Reportable 03/24/21 08:03 Spherocytes Not Reportable 03/24/21 08:03 Pappenheimer Bodies Not Reportable 03/24/21 08:03 Sickle Cells Not Reportable 03/24/21 08:03 Target Cells Not Reportable 03/24/21 08:03 Tear Drop Cells Not Reportable 03/24/21 08:03 Ovalocytes Not Reportable 03/24/21 08:03 Stomatocytes 1+ 03/17/21 17:36 Helmet Cells Not Reportable 03/24/21 08:03 [place] Bodies Not Reportable 03/24/21 08:03 [place] Rings Not Reportable 03/24/21 08:03 [place] Cells Not Reportable 03/24/21 08:03 Bite Cells Not Reportable 03/24/21 08:03 Crenated Cell Not Reportable 03/24/21 08:03 Elliptocytes Not Reportable 03/24/21 08:03 Acanthocytes (Spur) Not Reportable 03/24/21 08:03 Rouleaux Not Reportable 03/24/21 08:03 Hemoglobin C Crystals Not Reportable 03/24/21 08:03 Schistocytes Not Reportable 03/24/21 08:03 Malaria parasites Not Reportable 03/24/21 08:03 [place] Bodies Not Reportable 03/24/21 08:03 Hem Pathologist Commnt No 03/24/21 08:03 PT 12.6 Sec. (12.2-14.9) 03/17/21 17:37 INR 0.85 (0.87-1.13) L 03/17/21 17:37 APTT 23.3 Sec. (24.2-36.6) L 03/17/21 17:37 D-Dimer 947.92 ng/mlDDU (0-234) H 03/17/21 17:37 ABG pH 7.477 (7.320-7.450) H 03/24/21 08:57 POC ABG pCO2 56.9 mmHg (32.0-48.0) H 03/24/21 08:57 ABG pCO2 72.7 mm Hg 03/23/21 04:50 POC ABG pO2 100.6 mmHg (83-108) 03/24/21 08:57 ABG pO2 70.7 mm Hg (80.0-90.0) L 03/23/21 04:50 POC ABG HCO3 41.1 03/24/21 08:57 ABG HCO3 41.7 mmol/L (20.0-26.0) H 03/23/21 04:50 ABG O2 Saturation 98.3 (0-100) 03/24/21 08:57 ABG O2 Content 7.8 (0.0-44) 03/23/21 04:50 POC ABG Base Excess 15.8 03/24/21 08:57 ABG Base Excess 15.2 mmol/L (-2.0-3.0) H 03/23/21 04:50 ABG Hemoglobin 8.0 (12.0-17.5) L 03/24/21 08:57 ABG Oxyhemoglobin 96.8 (94-98) 03/24/21 08:57 ABG Carboxyhemoglobin 1.7 % (0.0-5.0) 03/23/21 04:50 ABG Methemoglobin 0.3 (0.0-1.5) 03/24/21 08:57 ABG Sodium 139.1 mmol/L (136.0-145.0) 03/24/21 08:57 ABG Potassium 3.9 mmol/L (3.40-4.50) 03/24/21 08:57 ABG Chloride 93.0 mmol/L (98-107) L 03/24/21 08:57 ABG Glucose 328 mg/dL (65-95) H 03/24/21 08:57 Oxyhemoglobin 96.9 % (95.0-99.0) 03/23/21 04:50 Carboxyhemoglobin 1.2 (0.5-1.5) 03/24/21 08:57 FiO2 40 % 03/23/21 04:50 FiO2 % 40 03/24/21 08:57 Sodium 139 mmol/L (137-145) 03/25/21 07:52 Potassium 4.5 mmol/L (3.6-5.0) 03/25/21 07:52 Chloride 95.9 mmol/L (98-107) L 03/25/21 07:52 Carbon Dioxide 33 mmol/L (22-30) H 03/25/21 07:52 Anion Gap 15 mmol/L 03/25/21 07:52 BUN 24 mg/dL (7-17) H 03/25/21 07:52 Creatinine 0.4 mg/dL (0.6-1.2) L 03/25/21 07:52 Estimated GFR > 60 ml/min 03/25/21 07:52 BUN/Creatinine Ratio 60 % 03/25/21 07:52 Glucose 289 mg/dL (65-100) H 03/25/21 07:52 POC Glucose 324 mg/dL (70-105) H 03/24/21 17:45 Lactic Acid 4.00 mmol/L (0.7-2.0) H* 03/17/21 23:36 Calcium 8.9 mg/dL (8.4-10.2) 03/25/21 07:52 Phosphorus 3.50 mg/dL (2.5-4.5) 03/21/21 09:28 Magnesium 2.40 mg/dL (1.7-2.3) H 03/21/21 09:28 Total Bilirubin 0.20 mg/dL (0.1-1.2) 03/21/21 09:28 Direct Bilirubin < 0.2 mg/dL (0-0.2) 03/19/21 12:00 Indirect Bilirubin 0.1 mg/dL 03/19/21 12:00 AST 32 units/L (5-40) 03/21/21 09:28 ALT 697 units/L (7-56) H 03/21/21 09:28 Alkaline Phosphatase 134 units/L (35-129) H 03/21/21 09:28 Ammonia 26.0 umol/L (25-60) 03/19/21 12:00 Troponin T 0.015 ng/mL (0.00-0.029) 03/19/21 12:00 NT-Pro-B Natriuret Pep 576.0 pg/mL (0-900) 03/17/21 17:36 Total Protein 5.8 g/dL (6.3-8.2) L 03/21/21 09:28 Albumin 3.4 g/dL (3.9-5) L 03/21/21 09:28 Albumin/Globulin Ratio 1.4 % 03/21/21 09:28 Triglycerides 189 mg/dL (2-149) H 03/22/21 04:39 Cholesterol 191 mg/dL (50-199) 03/17/21 17:36 LDL Cholesterol Direct 80 mg/dL (50-130) 03/17/21 17:36 HDL Cholesterol 73 mg/dL (40-59) H 03/17/21 17:36 Cholesterol/HDL Ratio 2.61 % 03/17/21 17:36 Amylase 78 units/L (27-131) 03/19/21 Unknown Lipase 12 units/L (13-60) L 03/19/21 Unknown TSH 3.510 mlU/mL (0.270-4.200) 03/17/21 22:57 Arterial Blood Glucose 328 mg/dL (65-95) H 03/24/21 08:57 Arterial Blood Ionized Calcium 4.5 mg/dL (4.6-5.3) L 03/24/21 08:57 Urine Color Mayuri (Yellow) 03/17/21 19:42 Urine Turbidity Slightly-cloudy (Clear) 03/17/21 19:42 Urine pH 7.0 (5.0-7.0) 03/17/21 19:42 Ur Specific [place] 1.015 (1.003-1.030) 03/17/21 19:42 Urine Protein 100 mg/dl mg/dL (Negative) 03/17/21 19:42 Urine Glucose (UA) Neg mg/dL (Negative) 03/17/21 19:42 Urine Ketones 20 mg/dL (Negative) 03/17/21 19:42 Urine Blood Sm (Negative) 03/17/21 19:42 Urine Nitrite Neg (Negative) 03/17/21 19:42 Urine Bilirubin Neg (Negative) 03/17/21 19:42 Urine Urobilinogen 2.0 mg/dL (<2.0) 03/17/21 19:42 Ur Leukocyte Esterase Neg (Negative) 03/17/21 19:42 Urine WBC (Auto) 4.0 /HPF (0.0-6.0) 03/17/21 19:42 Urine RBC (Auto) 6.0 /HPF (0.0-6.0) 03/17/21 19:42 U Epithel Cells (Auto) 5.0 /HPF (0-13.0) 03/17/21 19:42 Urine Bacteria (Auto) 1+ /HPF (Negative) 03/17/21 19:42 Urine Mucus 1+ /HPF 03/17/21 19:42 Urine Yeast (Budding) Few /HPF 03/17/21 19:42 Acetaminophen 5.0 ug/mL (10.0-30.0) L 03/18/21 23:07 Coronavirus (PCR) Negative (Negative) 03/19/21 Unknown Blood Type A POSITIVE 03/21/21 14:08 Antibody Screen Negative 03/21/21 14:08 Crossmatch See Detail 03/21/21 14:08 Wall[place]/IV: Voiding Method External Female Catheter Active Medications - Current Medications Current Medications: Generic Name Dose Route Start Last Admin Trade Name Freq PRN Reason Stop Dose Admin Acetaminophen 650 mg 03/18/21 00:05 Acetaminophen 325 Mg Tab PO Q6H PRN Pain MILD(1-3)/Fever >100.5/TOVAR Albuterol 2.5 mg 03/22/21 08:00 Albuterol 2.5 Mg/3 Ml Nebu IH Q6H PRN Wheezing Lipase/Protease/Amylase 1 each 03/19/21 18:16 Lipase 10,500/Protease 25,000/Amylase 43,750 (Units) Dr Newman FEEDTUBE PRN PRN For Clogged Feeding Tube Arformoterol Tartrate 15 mcg 03/24/21 11:00 03/25/21 08:49 Arformoterol 15 Mcg/2 Ml Nebu IH 15 mcg Q12HRT BUTCH Administration Atorvastatin Calcium 10 mg 03/19/21 22:00 03/24/21 21:02 Atorvastatin 10 Mg Tab PO 10 mg QHS BUTCH Administration Budesonide 0.5 mg 03/24/21 11:00 03/25/21 08:49 Budesonide 0.5 Mg/2 Ml Nebu IH 0.5 mg Q12HRT BUTCH Administration Buspirone HCl 5 mg 03/25/21 14:00 Buspirone 10 Mg Tab PO BID BUTCH Dextrose 0 ml 03/17/21 23:58 Dextrose 50% In Water (25gm) 50 Ml Syringe IV Q30MIN PRN Hypoglycemia Protocol Docusate Sodium 100 mg 03/23/21 10:00 03/25/21 10:37 Docusate Sodium 100 Mg/10 Ml Oral Liqd PO 100 mg BID BUTCH Administration Famotidine 20 mg 03/20/21 22:00 03/25/21 10:38 Famotidine 20 Mg Tab FEEDTUBE 20 mg BID [facility] Administration Heparin Sodium (Porcine) 5,000 unit 03/18/21 06:00 03/25/21 06:00 Heparin 5,000 Unit/1 Ml Vial SUB-Q 5,000 unit Q8HR [facility] Administration Hydrophilic Ointment 1 applic 03/17/21 17:35 Lip Therapy Vaseline TP Q2HR PRN Dry Lips Dexmedetomidine HCl 400 mcg/ 104 mls @ 4.306 mls/hr 03/21/21 13:00 03/25/21 11:30 Sodium Chloride IV 1.2 mcg/kg/hr TITRATE BUTCH 25.834 mls/hr Administration Protocol 0.2 MCG/KG/HR Fentanyl Citrate 2,000 mcg in 100 mls @ 4.14 mls/hr 03/22/21 15:00 03/24/21 22:49 Fentanyl Drip Premix IV 1 mcg/kg/hr TITR BUTCH 4.14 mls/hr Administration Protocol 1 MCG/KG/HR Insulin Glargine 25 units 03/25/21 22:00 Insulin Glargine 100 Units/Ml SUB-Q QHS [facility] Insulin Human Lispro 0 unit 03/19/21 12:00 03/25/21 12:28 Insulin Lispro 100 Unit/Ml SUB-Q 6 unit Q6HR [facility] Administration Protocol Magnesium Hydroxide 30 ml 03/18/21 00:05 03/24/21 09:36 Magnesium Hydroxide (Mom) Oral Liqd Udc PO 30 ml Q4H PRN Administration Constipation Methylprednisolone Sodium Succinate 40 mg 03/25/21 22:00 Methylprednisolone Sod Succinate 40 Mg/1 Ml Inj IV Q12HR [facility] Metoprolol Tartrate 25 mg 03/20/21 22:00 03/25/21 10:37 Metoprolol Tartrate 25 Mg Tab PO 25 mg BID [facility] Administration Midazolam HCl 2 mg 03/22/21 14:39 03/25/21 00:59 Midazolam 2 Mg/2 Ml Inj IV 2 mg Q4HR PRN Administration Agitation Morphine Sulfate 2 mg 03/18/21 00:05 Morphine 2 Mg/1 Ml Inj IV Q4H PRN Pain, Moderate (4-6) Morphine Sulfate 4 mg 03/18/21 00:05 Morphine 4 Mg/1 Ml Inj IV Q4H PRN Pain , Severe (7-10) Multi-Ingred Cream/Lotion/Oil/Oint 1 applic 03/17/21 17:35 Mineral Oil/Petrolatum, White Ophth Oint 3.5 Gm OU Q4HR PRN Dry Eye(s) Senna/Docusate Sodium 1 tab 03/17/21 22:00 03/25/21 10:37 Sennosides/Docusate Sodium 8.6/50 Mg Tab FEEDTUBE 1 tab BID BUTCH Administration Simple Syrup 15 ml 03/19/21 18:16 Simple Syrup 15 Ml FEEDTUBE PRN PRN Hypoglycemia Simple Syrup 30 ml 03/19/21 18:16 Simple Syrup 15 Ml FEEDTUBE PRN PRN Hypoglycemia Sodium Bicarbonate 325 mg 03/19/21 18:16 Sodium Bicarbonate 325 Mg Tab FEEDTUBE PRN PRN For Clogged Feeding Tube Sodium Chloride 10 ml 03/18/21 10:00 03/25/21 10:38 Sodium Chloride 0.9% 10 Ml Flush Syringe IV 10 ml BID BUTCH Administration Sodium Chloride 10 ml 03/17/21 23:58 03/22/21 23:20 Sodium Chloride 0.9% 10 Ml Flush Syringe IV 10 ml PRN PRN Administration LINE FLUSH Nutrition/Malnutrition Assess - Dietary Evaluation Nutrition/Malnutrition Findings: Nutrition Notes Start: 03/18/21 09:46 Freq: Status: Active Protocol: Document 03/23/21 18:25 PAM (Rec: 03/23/21 18:30 PAM [id number]) Nutrition Notes Initial or Follow up Brief Note Current Diet TF-Promote @ 70 ml/hr (since D 03/19). Weight change and time frame No body weight change reported . Subjective/Other Information RD consult for TF tolerance. TF continues as prescribed. Percent of energy/protein needs met: Prescribed Promote @ 70 ml/hr provides for energy/protein needs (1,680 Kcal/105 g) during LOS. #1 Nutrition Diagnosis Inadequate oral intake Diagnosis Progress(for reassessment Continues documentation) Nutrition Intervention Nutrition Support: Continue Promote @ 70 ml/hr. Flush: 50 ml water Q 4 hr. Goal #1 Provide at least 75% of energy /protein needs through Enteral Feeding during LOS. Follow-Up By: 03/30/21 Additional Comments Continue monitoring TF tolerance, and BM. <LEANDER ARAIZA - Last Filed: 03/27/21 23:49> Assessment and Plan Assessment and plan: I saw and evaluated the patient. Discussed with the nurse practitioner and agree with their findings and plan as documented in this note. Hospitalist Physical - Constitutional Vitals: Temp Pulse Resp BP Pulse Ox 97.8 F 84 17 134/83 100 03/27/21 20:00 03/27/21 22:00 03/27/21 20:30 03/27/21 22:00 03/27/21 20:30 HEART Score - HEART Score Troponin: Troponin T 0.015 ng/mL (0.00-0.029) 03/19/21 12:00 Results - Labs CBC & Chem 7: 03/27/21 04:15 03/27/21 04:15 Labs: Laboratory Last Values WBC 21.4 K/mm3 (4.5-11.0) H 03/27/21 04:15 RBC 3.45 M/mm3 (3.65-5.03) L 03/27/21 04:15 Hgb 6.9 gm/dl (10.1-14.3) L 03/27/21 04:15 Hct 26.2 % (30.3-42.9) L 03/27/21 04:15 MCV 76 fl (79-97) L 03/27/21 04:15 MCH 20 pg (28-32) L 03/27/21 04:15 MCHC 27 % (30-34) L 03/27/21 04:15 RDW 24.5 % (13.2-15.2) H 03/27/21 04:15 Plt Count 500 K/mm3 (140-440) H 03/27/21 04:15 [place] % (Auto) Geothermal Operations Engineer 03/24/21 08:03 Add Manual Diff Complete 03/26/21 05:35 Total Counted 100 03/26/21 05:35 Seg Neuts % (Manual) 72.0 % (40.0-70.0) H 03/26/21 05:35 Band Neutrophils % 5.0 % 03/26/21 05:35 Lymphocytes % (Manual) 6.0 % (13.4-35.0) L 03/26/21 05:35 Reactive Lymphs % (Man) 5.0 % 03/19/21 04:59 Monocytes % (Manual) 8.0 % (0.0-7.3) H 03/26/21 05:35 Metamyelocytes % 3.0 % 03/26/21 05:35 Myelocytes % 5.0 % 03/26/21 05:35 Promyelocytes % 1.0 % 03/26/21 05:35 Nucleated RBC % Not Reportable 03/26/21 05:35 Seg Neutrophils # Man 14.4 K/mm3 (1.8-7.7) H 03/26/21 05:35 Band Neutrophils # 1.0 K/mm3 03/26/21 05:35 Lymphocytes # (Manual) 1.2 K/mm3 (1.2-5.4) 03/26/21 05:35 Abs React Lymphs (Man) 0.0 K/mm3 03/26/21 05:35 Monocytes # (Manual) 1.6 K/mm3 (0.0-0.8) H 03/26/21 05:35 Eosinophils # (Manual) 0.0 K/mm3 (0.0-0.4) 03/26/21 05:35 Basophils # (Manual) 0.0 K/mm3 (0.0-0.1) 03/26/21 05:35 Metamyelocytes # 0.6 K/mm3 03/26/21 05:35 Myelocytes # 1.0 K/mm3 03/26/21 05:35 Promyelocytes # 0.2 K/mm3 03/26/21 05:35 Blast Cells # 0.0 K/mm3 03/26/21 05:35 WBC Morphology Not Reportable 03/26/21 05:35 Hypersegmented Neuts Not Reportable 03/26/21 05:35 Hyposegmented Neuts Not Reportable 03/26/21 05:35 Hypogranular Neuts Not Reportable 03/26/21 05:35 Smudge Cells Not Reportable 03/26/21 05:35 Toxic Granulation Not Reportable 03/26/21 05:35 Toxic Vacuolation Not Reportable 03/26/21 05:35 Dohle Bodies Not Reportable 03/26/21 05:35 Pelger-Huet Anomaly Not Reportable 03/26/21 05:35 Florentino Rods Not Reportable 03/26/21 05:35 Platelet Estimate Consistent w auto 03/26/21 05:35 Clumped Platelets Not Reportable 03/26/21 05:35 Plt Clumps, EDTA Not Reportable 03/26/21 05:35 Large Platelets 1+ 03/26/21 05:35 Giant Platelets Not Reportable 03/26/21 05:35 Platelet Satelliting Not Reportable 03/26/21 05:35 Plt Morphology Comment Not Reportable 03/26/21 05:35 RBC Morphology Not Reportable 03/26/21 05:35 Dimorphic RBCs Not Reportable 03/26/21 05:35 Polychromasia 1+ 03/26/21 05:35 Hypochromasia 2+ 03/26/21 05:35 Poikilocytosis 1+ 03/26/21 05:35 Anisocytosis 2+ 03/26/21 05:35 Microcytosis Not Reportable 03/26/21 05:35 Macrocytosis Not Reportable 03/26/21 05:35 Spherocytes Not Reportable 03/26/21 05:35 Pappenheimer Bodies Not Reportable 03/26/21 05:35 Sickle Cells Not Reportable 03/26/21 05:35 Target Cells 1+ 03/26/21 05:35 Tear Drop Cells 1+ 03/26/21 05:35 Ovalocytes Not Reportable 03/26/21 05:35 Stomatocytes 1+ 03/26/21 05:35 Helmet Cells Not Reportable 03/26/21 05:35 [place] Bodies Not Reportable 03/26/21 05:35 [place] Rings Not Reportable 03/26/21 05:35 [place] Cells Not Reportable 03/26/21 05:35 Bite Cells Not Reportable 03/26/21 05:35 Crenated Cell Not Reportable 03/26/21 05:35 Elliptocytes Not Reportable 03/26/21 05:35 Acanthocytes (Spur) Not Reportable 03/26/21 05:35 Rouleaux Not Reportable 03/26/21 05:35 Hemoglobin C Crystals Not Reportable 03/26/21 05:35 Schistocytes 1+ 03/26/21 05:35 Malaria parasites Not Reportable 03/26/21 05:35 [place] Bodies Not Reportable 03/26/21 05:35 Hem Pathologist Commnt No 03/26/21 05:35 PT 12.6 Sec. (12.2-14.9) 03/17/21 17:37 INR 0.85 (0.87-1.13) L 03/17/21 17:37 APTT 23.3 Sec. (24.2-36.6) L 03/17/21 17:37 D-Dimer 947.92 ng/mlDDU (0-234) H 03/17/21 17:37 ABG pH 7.477 (7.320-7.450) H 03/24/21 08:57 POC ABG pCO2 56.9 mmHg (32.0-48.0) H 03/24/21 08:57 ABG pCO2 72.7 mm Hg 03/23/21 04:50 POC ABG pO2 100.6 mmHg (83-108) 03/24/21 08:57 ABG pO2 70.7 mm Hg (80.0-90.0) L 03/23/21 04:50 POC ABG HCO3 41.1 03/24/21 08:57 ABG HCO3 41.7 mmol/L (20.0-26.0) H 03/23/21 04:50 ABG O2 Saturation 98.3 (0-100) 03/24/21 08:57 ABG O2 Content 7.8 (0.0-44) 03/23/21 04:50 POC ABG Base Excess 15.8 03/24/21 08:57 ABG Base Excess 15.2 mmol/L (-2.0-3.0) H 03/23/21 04:50 ABG Hemoglobin 8.0 (12.0-17.5) L 03/24/21 08:57 ABG Oxyhemoglobin 96.8 (94-98) 03/24/21 08:57 ABG Carboxyhemoglobin 1.7 % (0.0-5.0) 03/23/21 04:50 ABG Methemoglobin 0.3 (0.0-1.5) 03/24/21 08:57 ABG Sodium 139.1 mmol/L (136.0-145.0) 03/24/21 08:57 ABG Potassium 3.9 mmol/L (3.40-4.50) 03/24/21 08:57 ABG Chloride 93.0 mmol/L (98-107) L 03/24/21 08:57 ABG Glucose 328 mg/dL (65-95) H 03/24/21 08:57 Oxyhemoglobin 96.9 % (95.0-99.0) 03/23/21 04:50 Carboxyhemoglobin 1.2 (0.5-1.5) 03/24/21 08:57 FiO2 40 % 03/23/21 04:50 FiO2 % 40 03/24/21 08:57 Sodium 140 mmol/L (137-145) 03/27/21 04:15 Potassium 5.3 mmol/L (3.6-5.0) H 03/27/21 04:15 Chloride 94.4 mmol/L (98-107) L 03/27/21 04:15 Carbon Dioxide 35 mmol/L (22-30) H 03/27/21 04:15 Anion Gap 16 mmol/L 03/27/21 04:15 BUN 20 mg/dL (7-17) H 03/27/21 04:15 Creatinine 0.4 mg/dL (0.6-1.2) L 03/27/21 04:15 Estimated GFR > 60 ml/min 03/27/21 04:15 BUN/Creatinine Ratio 50 % 03/27/21 04:15 Glucose 310 mg/dL (65-100) H 03/27/21 04:15 POC Glucose 179 mg/dL (70-105) H 03/27/21 21:21 Lactic Acid 4.00 mmol/L (0.7-2.0) H* 03/17/21 23:36 Calcium 8.3 mg/dL (8.4-10.2) L 03/27/21 04:15 Phosphorus 4.60 mg/dL (2.5-4.5) H D 03/27/21 04:15 Magnesium 2.10 mg/dL (1.7-2.3) 03/27/21 04:15 Total Bilirubin 0.30 mg/dL (0.1-1.2) 03/26/21 05:35 Direct Bilirubin < 0.2 mg/dL (0-0.2) 03/19/21 12:00 Indirect Bilirubin 0.1 mg/dL 03/19/21 12:00 AST 35 units/L (5-40) 03/26/21 05:35 ALT 169 units/L (7-56) H 03/26/21 05:35 Alkaline Phosphatase 138 units/L (35-129) H 03/26/21 05:35 Ammonia 26.0 umol/L (25-60) 03/19/21 12:00 Troponin T 0.015 ng/mL (0.00-0.029) 03/19/21 12:00 NT-Pro-B Natriuret Pep 576.0 pg/mL (0-900) 03/17/21 17:36 Total Protein 5.5 g/dL (6.3-8.2) L 03/26/21 05:35 Albumin 3.2 g/dL (3.9-5) L 03/26/21 05:35 Albumin/Globulin Ratio 1.4 % 03/26/21 05:35 Triglycerides 189 mg/dL (2-149) H 03/22/21 04:39 Cholesterol 191 mg/dL (50-199) 03/17/21 17:36 LDL Cholesterol Direct 80 mg/dL (50-130) 03/17/21 17:36 HDL Cholesterol 73 mg/dL (40-59) H 03/17/21 17:36 Cholesterol/HDL Ratio 2.61 % 03/17/21 17:36 Amylase 78 units/L (27-131) 03/19/21 Unknown Lipase 12 units/L (13-60) L 03/19/21 Unknown TSH 3.510 mlU/mL (0.270-4.200) 03/17/21 22:57 Arterial Blood Glucose 328 mg/dL (65-95) H 03/24/21 08:57 Arterial Blood Ionized Calcium 4.5 mg/dL (4.6-5.3) L 03/24/21 08:57 Urine Color [place] (Yellow) 03/17/21 19:42 Urine Turbidity Slightly-cloudy (Clear) 03/17/21 19:42 Urine pH 7.0 (5.0-7.0) 03/17/21 19:42 Ur Specific [place] 1.015 (1.003-1.030) 03/17/21 19:42 Urine Protein 100 mg/dl mg/dL (Negative) 03/17/21 19:42 Urine Glucose (UA) Neg mg/dL (Negative) 03/17/21 19:42 Urine Ketones 20 mg/dL (Negative) 03/17/21 19:42 Urine Blood Sm (Negative) 03/17/21 19:42 Urine Nitrite Neg (Negative) 03/17/21 19:42 Urine Bilirubin Neg (Negative) 03/17/21 19:42 Urine Urobilinogen 2.0 mg/dL (<2.0) 03/17/21 19:42 Ur Leukocyte Esterase Neg (Negative) 03/17/21 19:42 Urine WBC (Auto) 4.0 /HPF (0.0-6.0) 03/17/21 19:42 Urine RBC (Auto) 6.0 /HPF (0.0-6.0) 03/17/21 19:42 U Epithel Cells (Auto) 5.0 /HPF (0-13.0) 03/17/21 19:42 Urine Bacteria (Auto) 1+ /HPF (Negative) 03/17/21 19:42 Urine Mucus 1+ /HPF 03/17/21 19:42 Urine Yeast (Budding) Few /HPF 03/17/21 19:42 Acetaminophen 5.0 ug/mL (10.0-30.0) L 03/18/21 23:07 Coronavirus (PCR) Negative (Negative) 03/19/21 Unknown Blood Type A POSITIVE 03/21/21 14:08 Antibody Screen Negative 03/21/21 14:08 Crossmatch See Detail 03/21/21 14:08 Microbiology: Microbiology 03/26/21 Unknown Tracheal Aspirate Sputum Culture - Preliminary 03/26/21 08:06 Peripheral/Venous Blood Culture - Preliminary NO GROWTH AFTER 24 HOURS 03/26/21 08:06 Peripheral/Venous Blood Culture - Preliminary NO GROWTH AFTER 24 HOURS [place]/IV: Voiding Method External Female Catheter Active Medications - Current Medications Current Medications: Generic Name Dose Route Start Last Admin Trade Name Freq PRN Reason Stop Dose Admin Acetaminophen 650 mg 03/18/21 00:05 Acetaminophen 325 Mg Tab PO Q6H PRN Pain MILD(1-3)/Fever >100.5/TOVAR Albuterol 2.5 mg 03/22/21 08:00 Albuterol 2.5 Mg/3 Ml Nebu IH Q6H PRN Wheezing Alprazolam 1 mg 03/26/21 10:53 03/27/21 22:00 Alprazolam 1 Mg Tab PO 1 mg Q8H PRN Administration AGITATION Lipase/Protease/Amylase 1 each 03/19/21 18:16 Lipase 10,500/Protease 25,000/Amylase 43,750 (Units) Dr Newman FEEDTUBE PRN PRN For Clogged Feeding Tube Arformoterol Tartrate 15 mcg 03/24/21 11:00 03/27/21 19:26 Arformoterol 15 Mcg/2 Ml Nebu IH 15 mcg Q12HRT BUTCH Administration Atorvastatin Calcium 10 mg 03/19/21 22:00 03/27/21 21:59 Atorvastatin 10 Mg Tab PO 10 mg QHS BUTCH Administration Budesonide 0.5 mg 03/24/21 11:00 03/27/21 19:26 Budesonide 0.5 Mg/2 Ml Nebu IH 0.5 mg Q12HRT BUTCH Administration Buspirone HCl 5 mg 03/25/21 14:00 03/27/21 22:00 Buspirone 5 Mg Tab PO 5 mg BID BUTCH Administration Dextrose 0 ml 03/17/21 23:58 Dextrose 50% In Water (25gm) 50 Ml Syringe IV Q30MIN PRN Hypoglycemia Protocol Docusate Sodium 100 mg 03/23/21 10:00 03/27/21 22:00 Docusate Sodium 100 Mg/10 Ml Oral Liqd PO 100 mg BID BUTCH Administration Duloxetine HCl 60 mg 03/26/21 10:00 Duloxetine 30 Mg Cap PO QDAY BUTCH Famotidine 20 mg 03/20/21 22:00 03/27/21 22:00 Famotidine 20 Mg Tab FEEDTUBE 20 mg BID BUTCH Administration Fentanyl 50 mcg 03/26/21 10:08 03/27/21 20:13 Fentanyl 100 Mcg/2 Ml Inj IV 50 mcg Q2H PRN Administration Pain, Moderate (4-6) Heparin Sodium (Porcine) 5,000 unit 03/18/21 06:00 03/27/21 21:59 Heparin 5,000 Unit/1 Ml Vial SUB-Q 5,000 unit Q8HR BUTCH Administration Hydrophilic Ointment 1 applic 03/17/21 17:35 Lip Therapy Vaseline TP Q2HR PRN Dry Lips Dexmedetomidine HCl 400 mcg/ 104 mls @ 4.306 mls/hr 03/21/21 13:00 03/27/21 23:15 Sodium Chloride IV 0.8 mcg/kg/hr TITRATE BUTCH 17.222 mls/hr Administration Protocol 0.2 MCG/KG/HR Fentanyl Citrate 2,000 mcg in 100 mls @ 4.14 mls/hr 03/22/21 15:00 03/27/21 20:15 Fentanyl Drip Premix IV 2 mcg/kg/hr TITR BUTCH 8.28 mls/hr Titration Protocol 1 MCG/KG/HR Insulin Glargine 30 units 03/26/21 22:00 03/27/21 21:59 Insulin Glargine 100 Units/Ml SUB-Q 30 units QHS [facility] Administration Insulin Human Lispro 0 unit 03/19/21 12:00 03/27/21 17:41 Insulin Lispro 100 Unit/Ml SUB-Q 4 unit Q6HR [facility] Administration Protocol Magnesium Hydroxide 30 ml 03/18/21 00:05 03/24/21 09:36 Magnesium Hydroxide (Mom) Oral Liqd Udc PO 30 ml Q4H PRN Administration Constipation Methylprednisolone Sodium Succinate 40 mg 03/25/21 22:00 03/27/21 21:59 Methylprednisolone Sod Succinate 40 Mg/1 Ml Inj IV 03/27/21 23:59 40 mg Q12HR [facility] Administration Methylprednisolone Sodium Succinate 40 mg 03/28/21 10:00 Methylprednisolone Sod Succinate 40 Mg/1 Ml Inj IV Q24HR [facility] Metoprolol Tartrate 25 mg 03/20/21 22:00 03/27/21 22:00 Metoprolol Tartrate 25 Mg Tab PO 25 mg BID [facility] Administration Morphine Sulfate 2 mg 03/18/21 00:05 Morphine 2 Mg/1 Ml Inj IV Q4H PRN Pain, Moderate (4-6) Morphine Sulfate 4 mg 03/18/21 00:05 Morphine 4 Mg/1 Ml Inj IV Q4H PRN Pain , Severe (7-10) Multi-Ingred Cream/Lotion/Oil/Oint 1 applic 03/17/21 17:35 Mineral Oil/Petrolatum, White Ophth Oint 3.5 Gm OU Q4HR PRN Dry Eye(s) Senna/Docusate Sodium 1 tab 03/17/21 22:00 03/27/21 21:59 Sennosides/Docusate Sodium 8.6/50 Mg Tab FEEDTUBE 1 tab BID BUTCH Administration Simple Syrup 15 ml 03/19/21 18:16 Simple Syrup 15 Ml FEEDTUBE PRN PRN Hypoglycemia Simple Syrup 30 ml 03/19/21 18:16 Simple Syrup 15 Ml FEEDTUBE PRN PRN Hypoglycemia Sodium Bicarbonate 325 mg 03/19/21 18:16 Sodium Bicarbonate 325 Mg Tab FEEDTUBE PRN PRN For Clogged Feeding Tube Sodium Chloride 10 ml 03/18/21 10:00 03/27/21 22:00 Sodium Chloride 0.9% 10 Ml Flush Syringe IV 10 ml BID BUTCH Administration Sodium Chloride 10 ml 03/17/21 23:58 03/22/21 23:20 Sodium Chloride 0.9% 10 Ml Flush Syringe IV 10 ml PRN PRN Administration LINE FLUSH Nutrition/Malnutrition Assess - Dietary Evaluation Nutrition/Malnutrition Findings: Nutrition Notes Start: 03/18/21 09:46 Freq: Status: Active Protocol: Document 03/23/21 18:25 PAM (Rec: 03/23/21 18:30 PAM [email or web address]) Nutrition Notes Initial or Follow up Brief Note Current Diet TF-Promote @ 70 ml/hr (since D 03/19). Weight change and time frame No body weight change reported . Subjective/Other Information RD consult for TF tolerance. TF continues as prescribed. Percent of energy/protein needs met: Prescribed Promote @ 70 ml/hr provides for energy/protein needs (1,680 Kcal/105 g) during LOS. #1 Nutrition Diagnosis Inadequate oral intake Diagnosis Progress(for reassessment Continues documentation) Nutrition Intervention Nutrition Support: Continue Promote @ 70 ml/hr. Flush: 50 ml water Q 4 hr. Goal #1 Provide at least 75% of energy /protein needs through Enteral Feeding during LOS. Follow-Up By: 03/30/21 Additional Comments Continue monitoring TF tolerance, and BM.
[2021-03-25] MEDS ORDERED: busPIRone 10 MG TAB PO SCH (14:00)
[2021-03-25] MEDS: fentaNYL DRIP Premix 2,000 MCG/100 ML BAG IV SCH (14:25)
[2021-03-25] MEDS: busPIRone 5 MG TAB PO SCH ×2 (15:36→23:32)
--- NOTE | 2021-03-25 20:51 | Progress Note ---
Assessment and Plan Imp: 1. Centriobular emphysema 2. Acute bronchitis 3. COPD exac. 4. A/C respiratory failure, hypoxia and hypercapnea Rec: 1. Cont. Solumedrol IV same dose 2. Added Budesonide/Brovana BID 3. On Precedex/Fentanyl 4. Daily SAT/SBT 5. Patient with very severe COPD based on office PFTs; even with a tracheostomy she may have difficulty weaning from the ventilator; consider another trial of extubation directly to BIPAP in the coming week; prognosis is guarded to poor 6. TFs, GI/DVT PPx 7. CCt 31 minutes No family present Subjective Date of service: 03/25/21 Principal diagnosis: Atrial fibrillation with RVR, respiratory failure Interval history: No events. On Ventilator. + Anxiety off sedation. Active Medications Acetaminophen (Acetaminophen 325 Mg Tab) 650 mg PO Q6H PRN PRN Reason: Pain MILD(1-3)/Fever >100.5/TOVAR Albuterol (Albuterol 2.5 Mg/3 Ml Nebu) 2.5 mg IH Q6H PRN PRN Reason: Wheezing Lipase/Protease/Amylase (Lipase 10,500/Protease 25,000/Amylase 43,750 (Units) Dr Newman) 1 each FEEDTUBE PRN PRN PRN Reason: For Clogged Feeding Tube Arformoterol Tartrate (Arformoterol 15 Mcg/2 Ml Nebu) 15 mcg IH Q12HRT [facility] Last Admin: 03/25/21 19:46 Dose: 15 mcg Documented by: Atorvastatin Calcium (Atorvastatin 10 Mg Tab) 10 mg PO QHS [facility] Last Admin: 03/24/21 21:02 Dose: 10 mg Documented by: Budesonide (Budesonide 0.5 Mg/2 Ml Nebu) 0.5 mg IH Q12HRT [facility] Last Admin: 03/25/21 19:46 Dose: 0.5 mg Documented by: Buspirone HCl (Buspirone 5 Mg Tab) 5 mg PO BID [facility] Last Admin: 03/25/21 15:36 Dose: 5 mg Documented by: Dextrose (Dextrose 50% In Water (25gm) 50 Ml Syringe) 0 ml IV Q30MIN PRN; Protocol PRN Reason: Hypoglycemia Docusate Sodium (Docusate Sodium 100 Mg/10 Ml Oral Liqd) 100 mg PO BID [facility] Last Admin: 03/25/21 10:37 Dose: 100 mg Documented by: Duloxetine HCl (Duloxetine 30 Mg Cap) 60 mg PO QDAY [facility] Famotidine (Famotidine 20 Mg Tab) 20 mg FEEDTUBE BID [facility] Last Admin: 03/25/21 10:38 Dose: 20 mg Documented by: Heparin Sodium (Porcine) (Heparin 5,000 Unit/1 Ml Vial) 5,000 unit SUB-Q Q8HR [facility] Last Admin: 03/25/21 13:45 Dose: 5,000 unit Documented by: Hydrophilic Ointment (Lip Therapy Vaseline) 1 applic TP Q2HR PRN PRN Reason: Dry Lips Dexmedetomidine HCl 400 mcg/ (Sodium Chloride) 104 mls @ 4.306 mls/hr IV TITRATE [facility]; Protocol Last Admin: 03/25/21 18:26 Dose: 0.8 mcg/kg/hr, 17.222 mls/hr Documented by: Fentanyl Citrate (Fentanyl Drip Premix) 2,000 mcg in 100 mls @ 4.14 mls/hr IV TITR [facility]; Protocol Last Titration: 03/25/21 18:09 Dose: 1 mcg/kg/hr, 4.14 mls/hr Documented by: Insulin Glargine (Insulin Glargine 100 Units/Ml) 25 units SUB-Q QHS [facility] Insulin Human Lispro (Insulin Lispro 100 Unit/Ml) 0 unit SUB-Q Q6HR [facility]; Protocol Last Admin: 03/25/21 18:27 Dose: 6 unit Documented by: Magnesium Hydroxide (Magnesium Hydroxide (Mom) Oral Liqd Udc) 30 ml PO Q4H PRN PRN Reason: Constipation Last Admin: 03/24/21 09:36 Dose: 30 ml Documented by: Methylprednisolone Sodium Succinate (Methylprednisolone Sod Succinate 40 Mg/1 Ml Inj) 40 mg IV Q12HR [facility] Metoprolol Tartrate (Metoprolol Tartrate 25 Mg Tab) 25 mg PO BID [facility] Last Admin: 03/25/21 10:37 Dose: 25 mg Documented by: Midazolam HCl (Midazolam 2 Mg/2 Ml Inj) 2 mg IV Q4HR PRN PRN Reason: Agitation Last Admin: 03/25/21 13:56 Dose: 2 mg Documented by: Morphine Sulfate (Morphine 2 Mg/1 Ml Inj) 2 mg IV Q4H PRN PRN Reason: Pain, Moderate (4-6) Morphine Sulfate (Morphine 4 Mg/1 Ml Inj) 4 mg IV Q4H PRN PRN Reason: Pain , Severe (7-10) Multi-Ingred Cream/Lotion/Oil/Oint (Mineral Oil/Petrolatum, White Ophth Oint 3.5 Gm) 1 applic OU Q4HR PRN PRN Reason: Dry Eye(s) Senna/Docusate Sodium (Sennosides/Docusate Sodium 8.6/50 Mg Tab) 1 tab FEEDTUBE BID [facility] Last Admin: 03/25/21 10:37 Dose: 1 tab Documented by: Simple Syrup (Simple Syrup 15 Ml) 15 ml FEEDTUBE PRN PRN PRN Reason: Hypoglycemia Simple Syrup (Simple Syrup 15 Ml) 30 ml FEEDTUBE PRN PRN PRN Reason: Hypoglycemia Sodium Bicarbonate (Sodium Bicarbonate 325 Mg Tab) 325 mg FEEDTUBE PRN PRN PRN Reason: For Clogged Feeding Tube Sodium Chloride (Sodium Chloride 0.9% 10 Ml Flush Syringe) 10 ml IV BID [facility] Last Admin: 03/25/21 10:38 Dose: 10 ml Documented by: Sodium Chloride (Sodium Chloride 0.9% 10 Ml Flush Syringe) 10 ml IV PRN PRN PRN Reason: LINE FLUSH Last Admin: 03/22/21 23:20 Dose: 10 ml Documented by: Objective Vital Signs - 12hr 03/25/21 03/25/21 03/25/21 09:01 09:06 09:30 Temperature Pulse Rate 100 H 70 Pulse Rate [ Bilateral] Pulse Rate [ From Monitor] Pulse Rate [ Left Dorsalis Pedis] Pulse Rate [ Left Radial] Pulse Rate [ Right Dorsalis Pedis] Pulse Rate [ Right Radial] Respiratory 17 16 Rate Respiratory Rate [Bilateral ] Respiratory Rate [ Generalized] Blood Pressure 135/78 135/69 O2 Sat by Pulse 99 100 100 Oximetry 03/25/21 03/25/21 03/25/21 10:00 10:30 10:37 Temperature Pulse Rate 82 94 H 85 Pulse Rate [ Bilateral] Pulse Rate [ From Monitor] Pulse Rate [ Left Dorsalis Pedis] Pulse Rate [ Left Radial] Pulse Rate [ Right Dorsalis Pedis] Pulse Rate [ Right Radial] Respiratory 12 17 Rate Respiratory Rate [Bilateral ] Respiratory 16 Rate [ Generalized] Blood Pressure 147/63 137/58 137/58 O2 Sat by Pulse 99 98 Oximetry 03/25/21 03/25/21 03/25/21 11:00 11:30 12:00 Temperature 97.4 F L Pulse Rate 79 85 80 Pulse Rate [ Bilateral] Pulse Rate [ 90 From Monitor] Pulse Rate [ 90 Left Dorsalis Pedis] Pulse Rate [ 90 Left Radial] Pulse Rate [ 90 Right Dorsalis Pedis] Pulse Rate [ 90 Right Radial] Respiratory 22 24 14 Rate Respiratory Rate [Bilateral ] Respiratory Rate [ Generalized] Blood Pressure 147/71 135/69 124/61 O2 Sat by Pulse 100 100 100 Oximetry 03/25/21 03/25/21 03/25/21 12:30 12:59 13:00 Temperature Pulse Rate 85 94 H 111 H Pulse Rate [ Bilateral] Pulse Rate [ From Monitor] Pulse Rate [ Left Dorsalis Pedis] Pulse Rate [ Left Radial] Pulse Rate [ Right Dorsalis Pedis] Pulse Rate [ Right Radial] Respiratory 14 15 15 Rate Respiratory Rate [Bilateral ] Respiratory Rate [ Generalized] Blood Pressure 140/73 141/90 141/90 O2 Sat by Pulse 0 L Oximetry 03/25/21 03/25/21 03/25/21 13:31 13:40 13:51 Temperature Pulse Rate 159 H 148 H Pulse Rate [ Bilateral] Pulse Rate [ From Monitor] Pulse Rate [ Left Dorsalis Pedis] Pulse Rate [ Left Radial] Pulse Rate [ Right Dorsalis Pedis] Pulse Rate [ Right Radial] Respiratory 25 H 27 H Rate Respiratory Rate [Bilateral ] Respiratory Rate [ Generalized] Blood Pressure 208/130 208/130 O2 Sat by Pulse 98 Oximetry 03/25/21 03/25/21 03/25/21 13:55 14:00 14:05 Temperature Pulse Rate 147 H 119 H 107 H Pulse Rate [ Bilateral] Pulse Rate [ From Monitor] Pulse Rate [ Left Dorsalis Pedis] Pulse Rate [ Left Radial] Pulse Rate [ Right Dorsalis Pedis] Pulse Rate [ Right Radial] Respiratory 25 H 19 16 Rate Respiratory Rate [Bilateral ] Respiratory Rate [ Generalized] Blood Pressure 208/130 99/52 99/52 O2 Sat by Pulse Oximetry 03/25/21 03/25/21 03/25/21 14:11 14:15 14:21 Temperature Pulse Rate 101 H 100 H 96 H Pulse Rate [ Bilateral] Pulse Rate [ From Monitor] Pulse Rate [ Left Dorsalis Pedis] Pulse Rate [ Left Radial] Pulse Rate [ Right Dorsalis Pedis] Pulse Rate [ Right Radial] Respiratory 21 20 19 Rate Respiratory Rate [Bilateral ] Respiratory Rate [ Generalized] Blood Pressure 99/52 99/52 99/52 O2 Sat by Pulse Oximetry 03/25/21 03/25/21 03/25/21 14:25 14:30 14:35 Temperature Pulse Rate 95 H 102 H 92 H Pulse Rate [ Bilateral] Pulse Rate [ From Monitor] Pulse Rate [ Left Dorsalis Pedis] Pulse Rate [ Left Radial] Pulse Rate [ Right Dorsalis Pedis] Pulse Rate [ Right Radial] Respiratory 18 21 19 Rate Respiratory Rate [Bilateral ] Respiratory Rate [ Generalized] Blood Pressure 99/52 69/38 69/38 O2 Sat by Pulse 99 100 Oximetry 03/25/21 03/25/21 03/25/21 14:40 14:45 14:51 Temperature Pulse Rate 101 H 92 H 88 Pulse Rate [ Bilateral] Pulse Rate [ From Monitor] Pulse Rate [ Left Dorsalis Pedis] Pulse Rate [ Left Radial] Pulse Rate [ Right Dorsalis Pedis] Pulse Rate [ Right Radial] Respiratory 18 18 19 Rate Respiratory Rate [Bilateral ] Respiratory Rate [ Generalized] Blood Pressure 76/42 85/47 85/47 O2 Sat by Pulse 100 100 Oximetry 03/25/21 03/25/21 03/25/21 14:55 15:00 15:05 Temperature Pulse Rate 91 H 90 88 Pulse Rate [ Bilateral] Pulse Rate [ From Monitor] Pulse Rate [ Left Dorsalis Pedis] Pulse Rate [ Left Radial] Pulse Rate [ Right Dorsalis Pedis] Pulse Rate [ Right Radial] Respiratory 17 17 18 Rate Respiratory Rate [Bilateral ] Respiratory Rate [ Generalized] Blood Pressure 85/47 90/44 90/44 O2 Sat by Pulse 100 100 100 Oximetry 03/25/21 03/25/21 03/25/21 15:11 16:00 16:48 Temperature 97.2 F L Pulse Rate 105 H 88 Pulse Rate [ Bilateral] Pulse Rate [ 121 H From Monitor] Pulse Rate [ 121 H Left Dorsalis Pedis] Pulse Rate [ 121 H Left Radial] Pulse Rate [ 121 H Right Dorsalis Pedis] Pulse Rate [ 90 Right Radial] Respiratory 18 17 Rate Respiratory Rate [Bilateral ] Respiratory Rate [ Generalized] Blood Pressure 90/44 121/55 O2 Sat by Pulse 100 100 100 Oximetry 03/25/21 03/25/21 03/25/21 19:43 19:53 20:03 Temperature 98.9 F Pulse Rate 96 H Pulse Rate [ 119 H Bilateral] Pulse Rate [ From Monitor] Pulse Rate [ Left Dorsalis Pedis] Pulse Rate [ Left Radial] Pulse Rate [ Right Dorsalis Pedis] Pulse Rate [ Right Radial] Respiratory Rate Respiratory 20 Rate [Bilateral ] Respiratory Rate [ Generalized] Blood Pressure 110/64 O2 Sat by Pulse 100 Oximetry Constitutional: other (critically ill on vent, sedated) Eyes: non-icteric ENT: oropharynx moist Neck: supple Effort: normal Ascultation: Bilateral: diminished breath sounds Cardiovascular: regular rate and rhythm (no mrg) Gastrointestinal: normoactive bowel sounds, soft, non-tender, non-distended Extremities: no cyanosis, no edema, pink and warm Neurologic: normal mental status, non-focal exam, pupils equal and round Psychiatric: mood appropriate, affect normal CBC and BMP: 03/25/21 04:00 03/25/21 07:52 ABG, PT/INR, D-dimer: ABG ABG pH 7.477 (7.320-7.450) H 03/24/21 08:57 POC ABG pCO2 56.9 mmHg (32.0-48.0) H 03/24/21 08:57 ABG pCO2 72.7 mm Hg 03/23/21 04:50 POC ABG pO2 100.6 mmHg (83-108) 03/24/21 08:57 ABG pO2 70.7 mm Hg (80.0-90.0) L 03/23/21 04:50 POC ABG HCO3 41.1 03/24/21 08:57 ABG O2 Saturation 98.3 (0-100) 03/24/21 08:57 PT/INR, D-dimer PT 12.6 Sec. (12.2-14.9) 03/17/21 17:37 INR 0.85 (0.87-1.13) L 03/17/21 17:37 D-Dimer 947.92 ng/mlDDU (0-234) H 03/17/21 17:37 Abnormal lab findings: Abnormal Labs 03/17/21 03/17/21 03/17/21 17:36 17:36 17:37 WBC 13.8 H RBC 3.48 L Hgb 7.0 L Hct 26.2 L MCV 75 L MCH 20 L MCHC 27 L RDW 25.4 H Plt Count Seg Neuts % (Manual) Lymphocytes % (Manual) Monocytes % (Manual) Nucleated RBC % 7.0 H Seg Neutrophils # Man 8.7 H Lymphocytes # (Manual) Monocytes # (Manual) INR 0.85 L APTT 23.3 L D-Dimer 947.92 H ABG pH POC ABG pCO2 POC ABG pO2 ABG pO2 ABG HCO3 ABG O2 Saturation ABG Base Excess ABG Hemoglobin ABG Oxyhemoglobin ABG Potassium ABG Chloride ABG Glucose Oxyhemoglobin Potassium Chloride 88.2 L Carbon Dioxide 38 H BUN Creatinine Glucose 129 H POC Glucose Lactic Acid Magnesium AST 177 H ALT 251 H Alkaline Phosphatase Ammonia Troponin T 0.036 H Total Protein 5.9 L Albumin 3.8 L Triglycerides 173 H HDL Cholesterol 73 H Lipase Arterial Blood Glucose Arterial Blood Ionized Calcium Acetaminophen Crossmatch 03/17/21 03/17/21 03/17/21 18:15 18:40 18:40 WBC RBC Hgb Hct MCV MCH MCHC RDW Plt Count Seg Neuts % (Manual) Lymphocytes % (Manual) Monocytes % (Manual) Nucleated RBC % Seg Neutrophils # Man Lymphocytes # (Manual) Monocytes # (Manual) INR APTT D-Dimer ABG pH POC ABG pCO2 POC ABG pO2 ABG pO2 94.4 H ABG HCO3 44.8 H ABG O2 Saturation ABG Base Excess 16.6 H ABG Hemoglobin ABG Oxyhemoglobin ABG Potassium ABG Chloride ABG Glucose Oxyhemoglobin Potassium Chloride Carbon Dioxide BUN Creatinine Glucose POC Glucose Lactic Acid 4.00 H* Magnesium AST ALT Alkaline Phosphatase Ammonia 116.0 H Troponin T Total Protein Albumin Triglycerides HDL Cholesterol Lipase Arterial Blood Glucose Arterial Blood Ionized Calcium Acetaminophen Crossmatch 03/17/21 03/18/21 03/18/21 23:36 00:25 23:07 WBC RBC Hgb Hct MCV MCH MCHC RDW Plt Count Seg Neuts % (Manual) Lymphocytes % (Manual) Monocytes % (Manual) Nucleated RBC % Seg Neutrophils # Man Lymphocytes # (Manual) Monocytes # (Manual) INR APTT D-Dimer ABG pH POC ABG pCO2 POC ABG pO2 ABG pO2 68.1 L ABG HCO3 40.2 H ABG O2 Saturation ABG Base Excess 14.4 H ABG Hemoglobin 6.5 L ABG Oxyhemoglobin ABG Potassium ABG Chloride ABG Glucose Oxyhemoglobin Potassium Chloride Carbon Dioxide BUN Creatinine Glucose POC Glucose Lactic Acid 4.00 H* Magnesium AST ALT Alkaline Phosphatase Ammonia Troponin T Total Protein Albumin Triglycerides HDL Cholesterol Lipase Arterial Blood Glucose Arterial Blood Ionized Calcium Acetaminophen 5.0 L Crossmatch 03/19/21 03/19/21 03/19/21 00:50 03:25 04:59 WBC RBC 3.43 L Hgb 7.0 L Hct 25.6 L MCV 75 L MCH 20 L MCHC 27 L RDW 25.6 H Plt Count Seg Neuts % (Manual) 91.0 H Lymphocytes % (Manual) Monocytes % (Manual) 9.0 H Nucleated RBC % 3.0 H Seg Neutrophils # Man 9.0 H Lymphocytes # (Manual) 0.0 L Monocytes # (Manual) INR APTT D-Dimer ABG pH 7.531 H POC ABG pCO2 POC ABG pO2 ABG pO2 49.6 L ABG HCO3 31.4 H ABG O2 Saturation 99.6 H ABG Base Excess 8.1 H ABG Hemoglobin 7.2 L ABG Oxyhemoglobin ABG Potassium ABG Chloride ABG Glucose Oxyhemoglobin Potassium Chloride Carbon Dioxide BUN Creatinine Glucose POC Glucose 127 H Lactic Acid Magnesium AST ALT Alkaline Phosphatase Ammonia Troponin T Total Protein Albumin Triglycerides HDL Cholesterol Lipase Arterial Blood Glucose Arterial Blood Ionized Calcium Acetaminophen Crossmatch 03/19/21 03/19/21 03/19/21 04:59 10:37 12:00 WBC RBC Hgb Hct MCV MCH MCHC RDW Plt Count Seg Neuts % (Manual) Lymphocytes % (Manual) Monocytes % (Manual) Nucleated RBC % Seg Neutrophils # Man Lymphocytes # (Manual) Monocytes # (Manual) INR APTT D-Dimer ABG pH 7.494 H POC ABG pCO2 POC ABG pO2 ABG pO2 107.3 H ABG HCO3 31.6 H ABG O2 Saturation ABG Base Excess 7.7 H ABG Hemoglobin 7.1 L ABG Oxyhemoglobin ABG Potassium ABG Chloride ABG Glucose Oxyhemoglobin Potassium Chloride 89.5 L Carbon Dioxide BUN Creatinine Glucose 121 H POC Glucose Lactic Acid Magnesium AST 359 H ALT 1434 H Alkaline Phosphatase Ammonia Troponin T Total Protein 5.7 L Albumin 3.5 L Triglycerides HDL Cholesterol Lipase Arterial Blood Glucose Arterial Blood Ionized Calcium Acetaminophen Crossmatch 03/19/21 03/19/21 03/19/21 12:05 17:52 23:23 WBC RBC Hgb Hct MCV MCH MCHC RDW Plt Count Seg Neuts % (Manual) Lymphocytes % (Manual) Monocytes % (Manual) Nucleated RBC % Seg Neutrophils # Man Lymphocytes # (Manual) Monocytes # (Manual) INR APTT D-Dimer ABG pH POC ABG pCO2 POC ABG pO2 ABG pO2 ABG HCO3 ABG O2 Saturation ABG Base Excess ABG Hemoglobin ABG Oxyhemoglobin ABG Potassium ABG Chloride ABG Glucose Oxyhemoglobin Potassium Chloride Carbon Dioxide BUN Creatinine Glucose POC Glucose 122 H 114 H 187 H Lactic Acid Magnesium AST ALT Alkaline Phosphatase Ammonia Troponin T Total Protein Albumin Triglycerides HDL Cholesterol Lipase Arterial Blood Glucose Arterial Blood Ionized Calcium Acetaminophen Crossmatch 03/19/21 03/20/21 03/20/21 Unknown 03:50 03:57 WBC RBC Hgb Hct MCV MCH MCHC RDW Plt Count Seg Neuts % (Manual) Lymphocytes % (Manual) Monocytes % (Manual) Nucleated RBC % Seg Neutrophils # Man Lymphocytes # (Manual) Monocytes # (Manual) INR APTT D-Dimer ABG pH 7.477 H POC ABG pCO2 POC ABG pO2 ABG pO2 67.9 L ABG HCO3 33.9 H ABG O2 Saturation ABG Base Excess 9.5 H ABG Hemoglobin 6.7 L ABG Oxyhemoglobin ABG Potassium ABG Chloride ABG Glucose Oxyhemoglobin Potassium Chloride Carbon Dioxide BUN Creatinine Glucose POC Glucose 247 H Lactic Acid Magnesium AST ALT Alkaline Phosphatase Ammonia Troponin T Total Protein Albumin Triglycerides HDL Cholesterol Lipase 12 L Arterial Blood Glucose Arterial Blood Ionized Calcium Acetaminophen Crossmatch 03/20/21 03/20/21 03/20/21 04:18 04:18 10:16 WBC RBC 3.48 L Hgb 7.0 L Hct 25.3 L MCV 73 L MCH 20 L MCHC 28 L RDW 25.2 H Plt Count 541 H Seg Neuts % (Manual) Lymphocytes % (Manual) Monocytes % (Manual) Nucleated RBC % Seg Neutrophils # Man Lymphocytes # (Manual) Monocytes # (Manual) INR APTT D-Dimer ABG pH POC ABG pCO2 POC ABG pO2 ABG pO2 63.3 L ABG HCO3 34.0 H ABG O2 Saturation 90.0 L ABG Base Excess 7.9 H ABG Hemoglobin 10.5 L ABG Oxyhemoglobin ABG Potassium ABG Chloride ABG Glucose Oxyhemoglobin 88.1 L Potassium Chloride 91.6 L Carbon Dioxide BUN 22 H Creatinine Glucose 245 H POC Glucose Lactic Acid Magnesium AST 148 H ALT 1096 H Alkaline Phosphatase 133 H Ammonia Troponin T Total Protein Albumin 3.5 L Triglycerides HDL Cholesterol Lipase Arterial Blood Glucose Arterial Blood Ionized Calcium Acetaminophen Crossmatch 03/20/21 03/20/21 03/21/21 12:05 17:26 00:18 WBC RBC Hgb Hct MCV MCH MCHC RDW Plt Count Seg Neuts % (Manual) Lymphocytes % (Manual) Monocytes % (Manual) Nucleated RBC % Seg Neutrophils # Man Lymphocytes # (Manual) Monocytes # (Manual) INR APTT D-Dimer ABG pH POC ABG pCO2 POC ABG pO2 ABG pO2 ABG HCO3 ABG O2 Saturation ABG Base Excess ABG Hemoglobin ABG Oxyhemoglobin ABG Potassium ABG Chloride ABG Glucose Oxyhemoglobin Potassium Chloride Carbon Dioxide BUN Creatinine Glucose POC Glucose 226 H 215 H 323 H Lactic Acid Magnesium AST ALT Alkaline Phosphatase Ammonia Troponin T Total Protein Albumin Triglycerides HDL Cholesterol Lipase Arterial Blood Glucose Arterial Blood Ionized Calcium Acetaminophen Crossmatch 03/21/21 03/21/21 03/21/21 04:00 05:05 09:28 WBC 12.0 H RBC 3.42 L Hgb 6.8 L Hct 25.3 L MCV 74 L MCH 20 L MCHC 27 L RDW 25.1 H Plt Count 650 H Seg Neuts % (Manual) Lymphocytes % (Manual) Monocytes % (Manual) Nucleated RBC % Seg Neutrophils # Man Lymphocytes # (Manual) Monocytes # (Manual) INR APTT D-Dimer ABG pH 7.348 L POC ABG pCO2 POC ABG pO2 ABG pO2 56.3 L ABG HCO3 36.9 H ABG O2 Saturation 83.4 L ABG Base Excess 10.0 H ABG Hemoglobin 7.0 L ABG Oxyhemoglobin ABG Potassium ABG Chloride ABG Glucose Oxyhemoglobin 81.7 L Potassium Chloride Carbon Dioxide BUN Creatinine Glucose POC Glucose 311 H Lactic Acid Magnesium AST ALT Alkaline Phosphatase Ammonia Troponin T Total Protein Albumin Triglycerides HDL Cholesterol Lipase Arterial Blood Glucose Arterial Blood Ionized Calcium Acetaminophen Crossmatch 03/21/21 03/21/21 03/21/21 09:28 12:31 14:08 WBC RBC Hgb Hct MCV MCH MCHC RDW Plt Count Seg Neuts % (Manual) Lymphocytes % (Manual) Monocytes % (Manual) Nucleated RBC % Seg Neutrophils # Man Lymphocytes # (Manual) Monocytes # (Manual) INR APTT D-Dimer ABG pH POC ABG pCO2 POC ABG pO2 ABG pO2 ABG HCO3 ABG O2 Saturation ABG Base Excess ABG Hemoglobin ABG Oxyhemoglobin ABG Potassium ABG Chloride ABG Glucose Oxyhemoglobin Potassium 5.1 H D Chloride 94.4 L Carbon Dioxide 33 H BUN 32 H Creatinine Glucose 319 H POC Glucose 295 H Lactic Acid Magnesium 2.40 H AST ALT 697 H Alkaline Phosphatase 134 H Ammonia Troponin T Total Protein 5.8 L Albumin 3.4 L Triglycerides HDL Cholesterol Lipase Arterial Blood Glucose Arterial Blood Ionized Calcium Acetaminophen Crossmatch See Detail 03/22/21 03/22/21 03/22/21 00:14 04:30 04:39 WBC RBC Hgb Hct MCV MCH MCHC RDW Plt Count Seg Neuts % (Manual) Lymphocytes % (Manual) Monocytes % (Manual) Nucleated RBC % Seg Neutrophils # Man Lymphocytes # (Manual) Monocytes # (Manual) INR APTT D-Dimer ABG pH 7.310 L POC ABG pCO2 POC ABG pO2 ABG pO2 65.4 L ABG HCO3 38.3 H ABG O2 Saturation 90.8 L ABG Base Excess 10.9 H ABG Hemoglobin 6.4 L ABG Oxyhemoglobin ABG Potassium ABG Chloride ABG Glucose Oxyhemoglobin 88.7 L Potassium Chloride Carbon Dioxide BUN Creatinine Glucose POC Glucose 326 H Lactic Acid Magnesium AST ALT Alkaline Phosphatase Ammonia Troponin T Total Protein Albumin Triglycerides 189 H HDL Cholesterol Lipase Arterial Blood Glucose Arterial Blood Ionized Calcium Acetaminophen Crossmatch 03/22/21 03/22/21 03/22/21 04:39 04:39 09:45 WBC 12.8 H RBC 3.34 L Hgb 6.6 L Hct 24.5 L MCV 73 L MCH 20 L MCHC 27 L RDW 25.5 H Plt Count 644 H Seg Neuts % (Manual) Lymphocytes % (Manual) Monocytes % (Manual) Nucleated RBC % Seg Neutrophils # Man Lymphocytes # (Manual) Monocytes # (Manual) INR APTT D-Dimer ABG pH POC ABG pCO2 65.7 H POC ABG pO2 59.7 L ABG pO2 ABG HCO3 ABG O2 Saturation ABG Base Excess ABG Hemoglobin 8.0 L ABG Oxyhemoglobin 86.3 L ABG Potassium 4.7 H ABG Chloride 94.0 L ABG Glucose 208 H Oxyhemoglobin Potassium 5.3 H Chloride 94.6 L Carbon Dioxide 34 H BUN 33 H Creatinine Glucose 291 H POC Glucose Lactic Acid Magnesium AST ALT Alkaline Phosphatase Ammonia Troponin T Total Protein Albumin Triglycerides HDL Cholesterol Lipase Arterial Blood Glucose 208 H Arterial Blood Ionized Calcium Acetaminophen Crossmatch 03/22/21 03/22/21 03/23/21 21:33 23:58 04:42 WBC 14.3 H RBC 3.63 L Hgb 7.6 L Hct 27.0 L MCV 74 L MCH 21 L MCHC 28 L RDW 23.1 H Plt Count 567 H Seg Neuts % (Manual) Lymphocytes % (Manual) Monocytes % (Manual) Nucleated RBC % Seg Neutrophils # Man Lymphocytes # (Manual) Monocytes # (Manual) INR APTT D-Dimer ABG pH POC ABG pCO2 POC ABG pO2 ABG pO2 ABG HCO3 ABG O2 Saturation ABG Base Excess ABG Hemoglobin ABG Oxyhemoglobin ABG Potassium ABG Chloride ABG Glucose Oxyhemoglobin Potassium Chloride Carbon Dioxide BUN Creatinine Glucose POC Glucose 170 H 156 H Lactic Acid Magnesium AST ALT Alkaline Phosphatase Ammonia Troponin T Total Protein Albumin Triglycerides HDL Cholesterol Lipase Arterial Blood Glucose Arterial Blood Ionized Calcium Acetaminophen Crossmatch 03/23/21 03/23/21 03/23/21 04:42 04:50 22:25 WBC RBC Hgb Hct MCV MCH MCHC RDW Plt Count Seg Neuts % (Manual) Lymphocytes % (Manual) Monocytes % (Manual) Nucleated RBC % Seg Neutrophils # Man Lymphocytes # (Manual) Monocytes # (Manual) INR APTT D-Dimer ABG pH POC ABG pCO2 POC ABG pO2 ABG pO2 70.7 L ABG HCO3 41.7 H ABG O2 Saturation ABG Base Excess 15.2 H ABG Hemoglobin 5.6 L ABG Oxyhemoglobin ABG Potassium ABG Chloride ABG Glucose Oxyhemoglobin Potassium Chloride 94.6 L Carbon Dioxide 37 H BUN 27 H Creatinine Glucose 311 H POC Glucose 295 H Lactic Acid Magnesium AST ALT Alkaline Phosphatase Ammonia Troponin T Total Protein Albumin Triglycerides HDL Cholesterol Lipase Arterial Blood Glucose Arterial Blood Ionized Calcium Acetaminophen Crossmatch 03/23/21 03/24/21 03/24/21 23:13 05:13 07:59 WBC RBC Hgb Hct MCV MCH MCHC RDW Plt Count Seg Neuts % (Manual) Lymphocytes % (Manual) Monocytes % (Manual) Nucleated RBC % Seg Neutrophils # Man Lymphocytes # (Manual) Monocytes # (Manual) INR APTT D-Dimer ABG pH POC ABG pCO2 POC ABG pO2 ABG pO2 ABG HCO3 ABG O2 Saturation ABG Base Excess ABG Hemoglobin ABG Oxyhemoglobin ABG Potassium ABG Chloride ABG Glucose Oxyhemoglobin Potassium Chloride Carbon Dioxide BUN Creatinine Glucose POC Glucose 336 H 303 H 333 H Lactic Acid Magnesium AST ALT Alkaline Phosphatase Ammonia Troponin T Total Protein Albumin Triglycerides HDL Cholesterol Lipase Arterial Blood Glucose Arterial Blood Ionized Calcium Acetaminophen Crossmatch 03/24/21 03/24/21 03/24/21 08:03 08:03 08:57 WBC 12.7 H RBC 3.48 L Hgb 7.3 L Hct 26.3 L MCV 76 L MCH 21 L MCHC 28 L RDW 24.1 H Plt Count 499 H Seg Neuts % (Manual) Lymphocytes % (Manual) 1.0 L Monocytes % (Manual) 16.0 H Nucleated RBC % 11.0 H Seg Neutrophils # Man 8.1 H Lymphocytes # (Manual) 0.1 L Monocytes # (Manual) 2.1 H INR APTT D-Dimer ABG pH 7.477 H POC ABG pCO2 56.9 H POC ABG pO2 ABG pO2 ABG HCO3 ABG O2 Saturation ABG Base Excess ABG Hemoglobin 8.0 L ABG Oxyhemoglobin ABG Potassium ABG Chloride 93.0 L ABG Glucose 328 H Oxyhemoglobin Potassium Chloride 94.4 L Carbon Dioxide 38 H BUN 26 H Creatinine 0.5 L Glucose 348 H POC Glucose Lactic Acid Magnesium AST ALT Alkaline Phosphatase Ammonia Troponin T Total Protein Albumin Triglycerides HDL Cholesterol Lipase Arterial Blood Glucose 328 H Arterial Blood Ionized Calcium 4.5 L Acetaminophen Crossmatch 03/24/21 03/24/21 03/25/21 12:14 17:45 04:00 WBC 15.8 H RBC Hgb 7.5 L Hct 27.4 L MCV 75 L MCH 21 L MCHC 28 L RDW 24.0 H Plt Count 576 H Seg Neuts % (Manual) Lymphocytes % (Manual) Monocytes % (Manual) Nucleated RBC % Seg Neutrophils # Man Lymphocytes # (Manual) Monocytes # (Manual) INR APTT D-Dimer ABG pH POC ABG pCO2 POC ABG pO2 ABG pO2 ABG HCO3 ABG O2 Saturation ABG Base Excess ABG Hemoglobin ABG Oxyhemoglobin ABG Potassium ABG Chloride ABG Glucose Oxyhemoglobin Potassium Chloride Carbon Dioxide BUN Creatinine Glucose POC Glucose 315 H 324 H Lactic Acid Magnesium AST ALT Alkaline Phosphatase Ammonia Troponin T Total Protein Albumin Triglycerides HDL Cholesterol Lipase Arterial Blood Glucose Arterial Blood Ionized Calcium Acetaminophen Crossmatch 03/25/21 03/25/21 03/25/21 07:52 16:37 17:38 WBC RBC Hgb Hct MCV MCH MCHC RDW Plt Count Seg Neuts % (Manual) Lymphocytes % (Manual) Monocytes % (Manual) Nucleated RBC % Seg Neutrophils # Man Lymphocytes # (Manual) Monocytes # (Manual) INR APTT D-Dimer ABG pH POC ABG pCO2 POC ABG pO2 ABG pO2 ABG HCO3 ABG O2 Saturation ABG Base Excess ABG Hemoglobin ABG Oxyhemoglobin ABG Potassium ABG Chloride ABG Glucose Oxyhemoglobin Potassium Chloride 95.9 L Carbon Dioxide 33 H BUN 24 H Creatinine 0.4 L Glucose 289 H POC Glucose 321 H 295 H Lactic Acid Magnesium AST ALT Alkaline Phosphatase Ammonia Troponin T Total Protein Albumin Triglycerides HDL Cholesterol Lipase Arterial Blood Glucose Arterial Blood Ionized Calcium Acetaminophen Crossmatch Chest x-ray: report reviewed, image reviewed
[2021-03-25] MEDS ORDERED: INSULIN GLARGINE 100 UNITS/ML SUB-Q SCH (22:00)
[2021-03-26] MEDS: INSULIN LISPRO 100 UNIT/ML SUB-Q SCH ×2 (01:18→14:02)
[2021-03-26 06:03] LABS: Mean Corpuscular HGB Conc 28 % (30-34); Mean Corpuscular Volume 75 fl (79-97); Platelet Count 544 K/mm3 (140-440); Red Blood Count 3.37 M/mm3 (3.65-5.03)
[2021-03-26 06:20] LABS: Hematocrit 25.2 % (30.3-42.9)
[2021-03-26 06:36] LABS: Alanine Aminotransferase 169 units/L (7-56); Albumin 3.2 g/dL (3.9-5); Blood Urea Nitrogen 20 mg/dL (7-17); Calcium 9.2 mg/dL (8.4-10.2); Hemolysis Index 51
[2021-03-26 06:37] LABS: BUN/Creatinine Ratio 50
[2021-03-26 08:39] LABS: Promyelocytes # (Manual) 0.2 K/mm3; Total Cells Counted 100
[2021-03-26 08:40] LABS: Anisocytosis 2+; Poikilocytosis 1+; Schistocytes 1+
[2021-03-26 08:41] LABS: Hypochromasia 2+; Stomatocytes 1+; Target Cells 1+
[2021-03-26 08:42] LABS: Large Platelets 1+; Platelet Estimate Consistent w Auto; Tear Drop Cells 1+
[2021-03-26] MEDS: ARFORMOTEROL 15 MCG/2 ML NEBU IH SCH ×2 (09:01→20:35)
[2021-03-26] MEDS: BUDESONIDE 0.5 MG/2 ML NEBU IH SCH ×2 (09:02→20:35)
--- NOTE | 2021-03-26 09:17 | Progress Note ---
Assessment and Plan 60 y/o female with acute on chronic respiratory failure, SVT and HTN likely all related to anxiety and stress 03/26/21: Continue daily PSV trials. Agree with my partner as I would like another trial of routine extubation before committing to trach. Discussed with family and patient at bedside this am. Continue solumedrol 40q12. IMS r estarted buspar. WIll have psych see and evaluate to help with anxiety and depression once extubated. Guarded prognosis. 03/22/21: Please see event note for details. Planned to extubate today and wean steroids. 03/21/21: Echo given continued tachycardia despite adequate oxygenation. Can drop steroids to 40q8. 03/19/21: Continue sedation. Wean FiO2 for sats >88%. consider weaning ster oid tomorrow. Follow up RUQ and trend LFT's 1. Wean Versed and place on Diprovan drip 2. Will give Fent 100 IV x1 now and order drip if needed for pain 3. Spoke with over the phone to get more history. Sounds like a panic attack not aborted by xanax therapy. Did check Tylenol level as patient has been in pain from fall 4. Elevated LFT's former drinker but confirms she has not been drinking. Ordered RUQ ultrasound and need to repeat LFT's tomorrow 5. Reviewed cards note, and they do not want to treat tachycardia or elevated bp, likely needs more sedation Guarded prognosis CCT 31 minutes. Subjective Date of service: 03/26/21 Principal diagnosis: Atrial fibrillation with RVR, respiratory failure Interval history: Awake and alert. On Fent 1 and Precedex. Only on 40% and PEEP of 6. Had temp of 101 this am. Does not appear to have been cultured. No other temps have be en recorded. Objective Vital Signs - 12hr 03/25/21 03/25/21 03/25/21 21:15 21:20 21:25 Temperature Pulse Rate 95 H 92 H 94 H Pulse Rate [ From Monitor] Respiratory 18 12 12 Rate Respiratory Rate [ Generalized] Blood Pressure 125/62 125/62 125/62 O2 Sat by Pulse 100 100 100 Oximetry 03/25/21 03/25/21 03/25/21 21:30 21:35 21:40 Temperature Pulse Rate 88 95 H 97 H Pulse Rate [ From Monitor] Respiratory 13 19 12 Rate Respiratory Rate [ Generalized] Blood Pressure 132/58 132/58 132/58 O2 Sat by Pulse 100 100 100 Oximetry 03/25/21 03/25/21 03/25/21 21:45 21:50 21:55 Temperature Pulse Rate 95 H 100 H 91 H Pulse Rate [ From Monitor] Respiratory 18 11 L 13 Rate Respiratory Rate [ Generalized] Blood Pressure 132/58 132/58 132/58 O2 Sat by Pulse 100 100 100 Oximetry 03/25/21 03/25/21 03/25/21 22:00 22:05 22:10 Temperature Pulse Rate 96 H 84 85 Pulse Rate [ From Monitor] Respiratory 12 18 16 Rate Respiratory 16 Rate [ Generalized] Blood Pressure 138/87 138/87 138/87 O2 Sat by Pulse 100 100 100 Oximetry 03/25/21 03/25/21 03/25/21 22:15 22:20 22:25 Temperature Pulse Rate 93 H 82 94 H Pulse Rate [ From Monitor] Respiratory 18 14 14 Rate Respiratory Rate [ Generalized] Blood Pressure 138/87 138/87 138/87 O2 Sat by Pulse 100 100 100 Oximetry 03/25/21 03/25/21 03/25/21 22:30 22:35 22:40 Temperature Pulse Rate 89 89 88 Pulse Rate [ From Monitor] Respiratory 15 14 17 Rate Respiratory Rate [ Generalized] Blood Pressure 118/71 118/71 118/71 O2 Sat by Pulse 100 100 100 Oximetry 03/25/21 03/25/21 03/25/21 22:45 22:50 22:56 Temperature Pulse Rate 89 93 H 105 H Pulse Rate [ From Monitor] Respiratory 17 11 L 12 Rate Respiratory Rate [ Generalized] Blood Pressure 118/71 118/71 118/71 O2 Sat by Pulse 100 100 100 Oximetry 03/25/21 03/25/21 03/25/21 23:01 23:05 23:11 Temperature Pulse Rate 98 H 92 H 95 H Pulse Rate [ From Monitor] Respiratory 16 17 12 Rate Respiratory Rate [ Generalized] Blood Pressure 111/67 111/67 118/71 O2 Sat by Pulse 100 100 100 Oximetry 03/25/21 03/25/21 03/25/21 23:15 23:21 23:25 Temperature Pulse Rate 96 H 87 102 H Pulse Rate [ From Monitor] Respiratory 18 16 14 Rate Respiratory Rate [ Generalized] Blood Pressure 118/71 118/71 118/71 O2 Sat by Pulse 100 100 90 Oximetry 03/25/21 03/25/21 03/25/21 23:30 23:32 23:35 Temperature Pulse Rate 87 84 92 H Pulse Rate [ From Monitor] Respiratory 14 17 Rate Respiratory Rate [ Generalized] Blood Pressure 121/68 121/68 121/68 O2 Sat by Pulse 100 100 Oximetry 03/25/21 03/25/21 03/25/21 23:36 23:41 23:45 Temperature Pulse Rate 95 H 98 H 99 H Pulse Rate [ From Monitor] Respiratory 17 16 Rate Respiratory Rate [ Generalized] Blood Pressure 121/68 121/68 121/68 O2 Sat by Pulse 100 100 100 Oximetry 03/25/21 03/25/21 03/25/21 23:51 23:55 23:58 Temperature 98.9 F Pulse Rate 92 H 85 Pulse Rate [ From Monitor] Respiratory 16 16 Rate Respiratory Rate [ Generalized] Blood Pressure 121/68 121/68 O2 Sat by Pulse 100 100 Oximetry 03/26/21 03/26/21 03/26/21 00:00 00:05 00:11 Temperature Pulse Rate 76 78 75 Pulse Rate [ 89 From Monitor] Respiratory 18 19 18 Rate Respiratory Rate [ Generalized] Blood Pressure 110/59 110/59 110/59 O2 Sat by Pulse 100 100 100 Oximetry 03/26/21 03/26/21 03/26/21 00:15 00:21 00:25 Temperature Pulse Rate 76 73 79 Pulse Rate [ From Monitor] Respiratory 18 13 16 Rate Respiratory Rate [ Generalized] Blood Pressure 110/59 110/59 110/59 O2 Sat by Pulse 100 100 100 Oximetry 03/26/21 03/26/21 03/26/21 00:30 00:35 00:41 Temperature Pulse Rate 77 85 89 Pulse Rate [ From Monitor] Respiratory 17 21 21 Rate Respiratory Rate [ Generalized] Blood Pressure 123/73 123/73 123/73 O2 Sat by Pulse 100 100 100 Oximetry 03/26/21 03/26/21 03/26/21 00:45 00:51 00:55 Temperature Pulse Rate 75 97 H 89 Pulse Rate [ From Monitor] Respiratory 18 16 18 Rate Respiratory Rate [ Generalized] Blood Pressure 123/73 123/73 123/73 O2 Sat by Pulse 100 100 99 Oximetry 03/26/21 03/26/21 03/26/21 01:01 01:05 01:11 Temperature Pulse Rate 92 H 80 82 Pulse Rate [ From Monitor] Respiratory 18 12 17 Rate Respiratory Rate [ Generalized] Blood Pressure 147/73 147/73 147/73 O2 Sat by Pulse 100 100 100 Oximetry 03/26/21 03/26/21 03/26/21 01:15 01:21 01:25 Temperature Pulse Rate 76 80 88 Pulse Rate [ From Monitor] Respiratory 15 17 11 L Rate Respiratory Rate [ Generalized] Blood Pressure 147/73 147/73 147/73 O2 Sat by Pulse 100 100 99 Oximetry 03/26/21 03/26/21 03/26/21 01:30 01:35 01:41 Temperature Pulse Rate 83 95 H 83 Pulse Rate [ From Monitor] Respiratory 12 11 L 18 Rate Respiratory Rate [ Generalized] Blood Pressure 145/79 145/79 145/79 O2 Sat by Pulse 99 100 100 Oximetry 03/26/21 03/26/21 03/26/21 01:45 01:51 01:55 Temperature Pulse Rate 101 H 97 H 92 H Pulse Rate [ From Monitor] Respiratory 13 10 L 13 Rate Respiratory Rate [ Generalized] Blood Pressure 145/79 145/79 145/79 O2 Sat by Pulse 99 100 99 Oximetry 03/26/21 03/26/21 03/26/21 02:00 02:05 02:11 Temperature Pulse Rate 89 84 82 Pulse Rate [ From Monitor] Respiratory 10 L 10 L 9 L Rate Respiratory Rate [ Generalized] Blood Pressure 138/84 138/84 138/84 O2 Sat by Pulse 99 100 100 Oximetry 03/26/21 03/26/21 03/26/21 02:15 03:18 03:30 Temperature 101 F H Pulse Rate 90 92 H Pulse Rate [ From Monitor] Respiratory 15 Rate Respiratory Rate [ Generalized] Blood Pressure 138/84 144/72 O2 Sat by Pulse 100 100 Oximetry 03/26/21 08:00 Temperature 98.6 F Pulse Rate Pulse Rate [ From Monitor] Respiratory Rate Respiratory Rate [ Generalized] Blood Pressure O2 Sat by Pulse Oximetry Constitutional: other (critically ill on vent, sedated) Eyes: non-icteric ENT: oropharynx moist Neck: supple Effort: normal Ascultation: Bilateral: diminished breath sounds Cardiovascular: regular rate and rhythm (no mrg) Gastrointestinal: normoactive bowel sounds, soft, non-tender, non-distended Extremities: no cyanosis, no edema, pink and warm Neurologic: normal mental status, non-focal exam, pupils equal and round Psychiatric: mood appropriate, affect normal CBC and BMP: 03/26/21 05:35 03/26/21 05:35 ABG, PT/INR, D-dimer: ABG ABG pH 7.477 (7.320-7.450) H 03/24/21 08:57 POC ABG pCO2 56.9 mmHg (32.0-48.0) H 03/24/21 08:57 ABG pCO2 72.7 mm Hg 03/23/21 04:50 POC ABG pO2 100.6 mmHg (83-108) 03/24/21 08:57 ABG pO2 70.7 mm Hg (80.0-90.0) L 03/23/21 04:50 POC ABG HCO3 41.1 03/24/21 08:57 ABG O2 Saturation 98.3 (0-100) 03/24/21 08:57 PT/INR, D-dimer PT 12.6 Sec. (12.2-14.9) 03/17/21 17:37 INR 0.85 (0.87-1.13) L 03/17/21 17:37 D-Dimer 947.92 ng/mlDDU (0-234) H 03/17/21 17:37 Abnormal lab findings: Abnormal Labs 03/17/21 03/17/21 03/17/21 17:36 17:36 17:37 WBC 13.8 H RBC 3.48 L Hgb 7.0 L Hct 26.2 L MCV 75 L MCH 20 L MCHC 27 L RDW 25.4 H Plt Count Seg Neuts % (Manual) Lymphocytes % (Manual) Monocytes % (Manual) Nucleated RBC % 7.0 H Seg Neutrophils # Man 8.7 H Lymphocytes # (Manual) Monocytes # (Manual) INR 0.85 L APTT 23.3 L D-Dimer 947.92 H ABG pH POC ABG pCO2 POC ABG pO2 ABG pO2 ABG HCO3 ABG O2 Saturation ABG Base Excess ABG Hemoglobin ABG Oxyhemoglobin ABG Potassium ABG Chloride ABG Glucose Oxyhemoglobin Potassium Chloride 88.2 L Carbon Dioxide 38 H BUN Creatinine Glucose 129 H POC Glucose Lactic Acid Magnesium AST 177 H ALT 251 H Alkaline Phosphatase Ammonia Troponin T 0.036 H Total Protein 5.9 L Albumin 3.8 L Triglycerides 173 H HDL Cholesterol 73 H Lipase Arterial Blood Glucose Arterial Blood Ionized Calcium Acetaminophen Crossmatch 03/17/21 03/17/21 03/17/21 18:15 18:40 18:40 WBC RBC Hgb Hct MCV MCH MCHC RDW Plt Count Seg Neuts % (Manual) Lymphocytes % (Manual) Monocytes % (Manual) Nucleated RBC % Seg Neutrophils # Man Lymphocytes # (Manual) Monocytes # (Manual) INR APTT D-Dimer ABG pH POC ABG pCO2 POC ABG pO2 ABG pO2 94.4 H ABG HCO3 44.8 H ABG O2 Saturation ABG Base Excess 16.6 H ABG Hemoglobin ABG Oxyhemoglobin ABG Potassium ABG Chloride ABG Glucose Oxyhemoglobin Potassium Chloride Carbon Dioxide BUN Creatinine Glucose POC Glucose Lactic Acid 4.00 H* Magnesium AST ALT Alkaline Phosphatase Ammonia 116.0 H Troponin T Total Protein Albumin Triglycerides HDL Cholesterol Lipase Arterial Blood Glucose Arterial Blood Ionized Calcium Acetaminophen Crossmatch 03/17/21 03/18/21 03/18/21 23:36 00:25 23:07 WBC RBC Hgb Hct MCV MCH MCHC RDW Plt Count Seg Neuts % (Manual) Lymphocytes % (Manual) Monocytes % (Manual) Nucleated RBC % Seg Neutrophils # Man Lymphocytes # (Manual) Monocytes # (Manual) INR APTT D-Dimer ABG pH POC ABG pCO2 POC ABG pO2 ABG pO2 68.1 L ABG HCO3 40.2 H ABG O2 Saturation ABG Base Excess 14.4 H ABG Hemoglobin 6.5 L ABG Oxyhemoglobin ABG Potassium ABG Chloride ABG Glucose Oxyhemoglobin Potassium Chloride Carbon Dioxide BUN Creatinine Glucose POC Glucose Lactic Acid 4.00 H* Magnesium AST ALT Alkaline Phosphatase Ammonia Troponin T Total Protein Albumin Triglycerides HDL Cholesterol Lipase Arterial Blood Glucose Arterial Blood Ionized Calcium Acetaminophen 5.0 L Crossmatch 03/19/21 03/19/21 03/19/21 00:50 03:25 04:59 WBC RBC 3.43 L Hgb 7.0 L Hct 25.6 L MCV 75 L MCH 20 L MCHC 27 L RDW 25.6 H Plt Count Seg Neuts % (Manual) 91.0 H Lymphocytes % (Manual) Monocytes % (Manual) 9.0 H Nucleated RBC % 3.0 H Seg Neutrophils # Man 9.0 H Lymphocytes # (Manual) 0.0 L Monocytes # (Manual) INR APTT D-Dimer ABG pH 7.531 H POC ABG pCO2 POC ABG pO2 ABG pO2 49.6 L ABG HCO3 31.4 H ABG O2 Saturation 99.6 H ABG Base Excess 8.1 H ABG Hemoglobin 7.2 L ABG Oxyhemoglobin ABG Potassium ABG Chloride ABG Glucose Oxyhemoglobin Potassium Chloride Carbon Dioxide BUN Creatinine Glucose POC Glucose 127 H Lactic Acid Magnesium AST ALT Alkaline Phosphatase Ammonia Troponin T Total Protein Albumin Triglycerides HDL Cholesterol Lipase Arterial Blood Glucose Arterial Blood Ionized Calcium Acetaminophen Crossmatch 03/19/21 03/19/21 03/19/21 04:59 10:37 12:00 WBC RBC Hgb Hct MCV MCH MCHC RDW Plt Count Seg Neuts % (Manual) Lymphocytes % (Manual) Monocytes % (Manual) Nucleated RBC % Seg Neutrophils # Man Lymphocytes # (Manual) Monocytes # (Manual) INR APTT D-Dimer ABG pH 7.494 H POC ABG pCO2 POC ABG pO2 ABG pO2 107.3 H ABG HCO3 31.6 H ABG O2 Saturation ABG Base Excess 7.7 H ABG Hemoglobin 7.1 L ABG Oxyhemoglobin ABG Potassium ABG Chloride ABG Glucose Oxyhemoglobin Potassium Chloride 89.5 L Carbon Dioxide BUN Creatinine Glucose 121 H POC Glucose Lactic Acid Magnesium AST 359 H ALT 1434 H Alkaline Phosphatase Ammonia Troponin T Total Protein 5.7 L Albumin 3.5 L Triglycerides HDL Cholesterol Lipase Arterial Blood Glucose Arterial Blood Ionized Calcium Acetaminophen Crossmatch 03/19/21 03/19/21 03/19/21 12:05 17:52 23:23 WBC RBC Hgb Hct MCV MCH MCHC RDW Plt Count Seg Neuts % (Manual) Lymphocytes % (Manual) Monocytes % (Manual) Nucleated RBC % Seg Neutrophils # Man Lymphocytes # (Manual) Monocytes # (Manual) INR APTT D-Dimer ABG pH POC ABG pCO2 POC ABG pO2 ABG pO2 ABG HCO3 ABG O2 Saturation ABG Base Excess ABG Hemoglobin ABG Oxyhemoglobin ABG Potassium ABG Chloride ABG Glucose Oxyhemoglobin Potassium Chloride Carbon Dioxide BUN Creatinine Glucose POC Glucose 122 H 114 H 187 H Lactic Acid Magnesium AST ALT Alkaline Phosphatase Ammonia Troponin T Total Protein Albumin Triglycerides HDL Cholesterol Lipase Arterial Blood Glucose Arterial Blood Ionized Calcium Acetaminophen Crossmatch 03/19/21 03/20/21 03/20/21 Unknown 03:50 03:57 WBC RBC Hgb Hct MCV MCH MCHC RDW Plt Count Seg Neuts % (Manual) Lymphocytes % (Manual) Monocytes % (Manual) Nucleated RBC % Seg Neutrophils # Man Lymphocytes # (Manual) Monocytes # (Manual) INR APTT D-Dimer ABG pH 7.477 H POC ABG pCO2 POC ABG pO2 ABG pO2 67.9 L ABG HCO3 33.9 H ABG O2 Saturation ABG Base Excess 9.5 H ABG Hemoglobin 6.7 L ABG Oxyhemoglobin ABG Potassium ABG Chloride ABG Glucose Oxyhemoglobin Potassium Chloride Carbon Dioxide BUN Creatinine Glucose POC Glucose 247 H Lactic Acid Magnesium AST ALT Alkaline Phosphatase Ammonia Troponin T Total Protein Albumin Triglycerides HDL Cholesterol Lipase 12 L Arterial Blood Glucose Arterial Blood Ionized Calcium Acetaminophen Crossmatch 03/20/21 03/20/21 03/20/21 04:18 04:18 10:16 WBC RBC 3.48 L Hgb 7.0 L Hct 25.3 L MCV 73 L MCH 20 L MCHC 28 L RDW 25.2 H Plt Count 541 H Seg Neuts % (Manual) Lymphocytes % (Manual) Monocytes % (Manual) Nucleated RBC % Seg Neutrophils # Man Lymphocytes # (Manual) Monocytes # (Manual) INR APTT D-Dimer ABG pH POC ABG pCO2 POC ABG pO2 ABG pO2 63.3 L ABG HCO3 34.0 H ABG O2 Saturation 90.0 L ABG Base Excess 7.9 H ABG Hemoglobin 10.5 L ABG Oxyhemoglobin ABG Potassium ABG Chloride ABG Glucose Oxyhemoglobin 88.1 L Potassium Chloride 91.6 L Carbon Dioxide BUN 22 H Creatinine Glucose 245 H POC Glucose Lactic Acid Magnesium AST 148 H ALT 1096 H Alkaline Phosphatase 133 H Ammonia Troponin T Total Protein Albumin 3.5 L Triglycerides HDL Cholesterol Lipase Arterial Blood Glucose Arterial Blood Ionized Calcium Acetaminophen Crossmatch 03/20/21 03/20/21 03/21/21 12:05 17:26 00:18 WBC RBC Hgb Hct MCV MCH MCHC RDW Plt Count Seg Neuts % (Manual) Lymphocytes % (Manual) Monocytes % (Manual) Nucleated RBC % Seg Neutrophils # Man Lymphocytes # (Manual) Monocytes # (Manual) INR APTT D-Dimer ABG pH POC ABG pCO2 POC ABG pO2 ABG pO2 ABG HCO3 ABG O2 Saturation ABG Base Excess ABG Hemoglobin ABG Oxyhemoglobin ABG Potassium ABG Chloride ABG Glucose Oxyhemoglobin Potassium Chloride Carbon Dioxide BUN Creatinine Glucose POC Glucose 226 H 215 H 323 H Lactic Acid Magnesium AST ALT Alkaline Phosphatase Ammonia Troponin T Total Protein Albumin Triglycerides HDL Cholesterol Lipase Arterial Blood Glucose Arterial Blood Ionized Calcium Acetaminophen Crossmatch 03/21/21 03/21/21 03/21/21 04:00 05:05 09:28 WBC 12.0 H RBC 3.42 L Hgb 6.8 L Hct 25.3 L MCV 74 L MCH 20 L MCHC 27 L RDW 25.1 H Plt Count 650 H Seg Neuts % (Manual) Lymphocytes % (Manual) Monocytes % (Manual) Nucleated RBC % Seg Neutrophils # Man Lymphocytes # (Manual) Monocytes # (Manual) INR APTT D-Dimer ABG pH 7.348 L POC ABG pCO2 POC ABG pO2 ABG pO2 56.3 L ABG HCO3 36.9 H ABG O2 Saturation 83.4 L ABG Base Excess 10.0 H ABG Hemoglobin 7.0 L ABG Oxyhemoglobin ABG Potassium ABG Chloride ABG Glucose Oxyhemoglobin 81.7 L Potassium Chloride Carbon Dioxide BUN Creatinine Glucose POC Glucose 311 H Lactic Acid Magnesium AST ALT Alkaline Phosphatase Ammonia Troponin T Total Protein Albumin Triglycerides HDL Cholesterol Lipase Arterial Blood Glucose Arterial Blood Ionized Calcium Acetaminophen Crossmatch 03/21/21 03/21/21 03/21/21 09:28 12:31 14:08 WBC RBC Hgb Hct MCV MCH MCHC RDW Plt Count Seg Neuts % (Manual) Lymphocytes % (Manual) Monocytes % (Manual) Nucleated RBC % Seg Neutrophils # Man Lymphocytes # (Manual) Monocytes # (Manual) INR APTT D-Dimer ABG pH POC ABG pCO2 POC ABG pO2 ABG pO2 ABG HCO3 ABG O2 Saturation ABG Base Excess ABG Hemoglobin ABG Oxyhemoglobin ABG Potassium ABG Chloride ABG Glucose Oxyhemoglobin Potassium 5.1 H D Chloride 94.4 L Carbon Dioxide 33 H BUN 32 H Creatinine Glucose 319 H POC Glucose 295 H Lactic Acid Magnesium 2.40 H AST ALT 697 H Alkaline Phosphatase 134 H Ammonia Troponin T Total Protein 5.8 L Albumin 3.4 L Triglycerides HDL Cholesterol Lipase Arterial Blood Glucose Arterial Blood Ionized Calcium Acetaminophen Crossmatch See Detail 03/22/21 03/22/21 03/22/21 00:14 04:30 04:39 WBC RBC Hgb Hct MCV MCH MCHC RDW Plt Count Seg Neuts % (Manual) Lymphocytes % (Manual) Monocytes % (Manual) Nucleated RBC % Seg Neutrophils # Man Lymphocytes # (Manual) Monocytes # (Manual) INR APTT D-Dimer ABG pH 7.310 L POC ABG pCO2 POC ABG pO2 ABG pO2 65.4 L ABG HCO3 38.3 H ABG O2 Saturation 90.8 L ABG Base Excess 10.9 H ABG Hemoglobin 6.4 L ABG Oxyhemoglobin ABG Potassium ABG Chloride ABG Glucose Oxyhemoglobin 88.7 L Potassium Chloride Carbon Dioxide BUN Creatinine Glucose POC Glucose 326 H Lactic Acid Magnesium AST ALT Alkaline Phosphatase Ammonia Troponin T Total Protein Albumin Triglycerides 189 H HDL Cholesterol Lipase Arterial Blood Glucose Arterial Blood Ionized Calcium Acetaminophen Crossmatch 03/22/21 03/22/21 03/22/21 04:39 04:39 09:45 WBC 12.8 H RBC 3.34 L Hgb 6.6 L Hct 24.5 L MCV 73 L MCH 20 L MCHC 27 L RDW 25.5 H Plt Count 644 H Seg Neuts % (Manual) Lymphocytes % (Manual) Monocytes % (Manual) Nucleated RBC % Seg Neutrophils # Man Lymphocytes # (Manual) Monocytes # (Manual) INR APTT D-Dimer ABG pH POC ABG pCO2 65.7 H POC ABG pO2 59.7 L ABG pO2 ABG HCO3 ABG O2 Saturation ABG Base Excess ABG Hemoglobin 8.0 L ABG Oxyhemoglobin 86.3 L ABG Potassium 4.7 H ABG Chloride 94.0 L ABG Glucose 208 H Oxyhemoglobin Potassium 5.3 H Chloride 94.6 L Carbon Dioxide 34 H BUN 33 H Creatinine Glucose 291 H POC Glucose Lactic Acid Magnesium AST ALT Alkaline Phosphatase Ammonia Troponin T Total Protein Albumin Triglycerides HDL Cholesterol Lipase Arterial Blood Glucose 208 H Arterial Blood Ionized Calcium Acetaminophen Crossmatch 03/22/21 03/22/21 03/23/21 21:33 23:58 04:42 WBC 14.3 H RBC 3.63 L Hgb 7.6 L Hct 27.0 L MCV 74 L MCH 21 L MCHC 28 L RDW 23.1 H Plt Count 567 H Seg Neuts % (Manual) Lymphocytes % (Manual) Monocytes % (Manual) Nucleated RBC % Seg Neutrophils # Man Lymphocytes # (Manual) Monocytes # (Manual) INR APTT D-Dimer ABG pH POC ABG pCO2 POC ABG pO2 ABG pO2 ABG HCO3 ABG O2 Saturation ABG Base Excess ABG Hemoglobin ABG Oxyhemoglobin ABG Potassium ABG Chloride ABG Glucose Oxyhemoglobin Potassium Chloride Carbon Dioxide BUN Creatinine Glucose POC Glucose 170 H 156 H Lactic Acid Magnesium AST ALT Alkaline Phosphatase Ammonia Troponin T Total Protein Albumin Triglycerides HDL Cholesterol Lipase Arterial Blood Glucose Arterial Blood Ionized Calcium Acetaminophen Crossmatch 03/23/21 03/23/21 03/23/21 04:42 04:50 22:25 WBC RBC Hgb Hct MCV MCH MCHC RDW Plt Count Seg Neuts % (Manual) Lymphocytes % (Manual) Monocytes % (Manual) Nucleated RBC % Seg Neutrophils # Man Lymphocytes # (Manual) Monocytes # (Manual) INR APTT D-Dimer ABG pH POC ABG pCO2 POC ABG pO2 ABG pO2 70.7 L ABG HCO3 41.7 H ABG O2 Saturation ABG Base Excess 15.2 H ABG Hemoglobin 5.6 L ABG Oxyhemoglobin ABG Potassium ABG Chloride ABG Glucose Oxyhemoglobin Potassium Chloride 94.6 L Carbon Dioxide 37 H BUN 27 H Creatinine Glucose 311 H POC Glucose 295 H Lactic Acid Magnesium AST ALT Alkaline Phosphatase Ammonia Troponin T Total Protein Albumin Triglycerides HDL Cholesterol Lipase Arterial Blood Glucose Arterial Blood Ionized Calcium Acetaminophen Crossmatch 03/23/21 03/24/21 03/24/21 23:13 05:13 07:59 WBC RBC Hgb Hct MCV MCH MCHC RDW Plt Count Seg Neuts % (Manual) Lymphocytes % (Manual) Monocytes % (Manual) Nucleated RBC % Seg Neutrophils # Man Lymphocytes # (Manual) Monocytes # (Manual) INR APTT D-Dimer ABG pH POC ABG pCO2 POC ABG pO2 ABG pO2 ABG HCO3 ABG O2 Saturation ABG Base Excess ABG Hemoglobin ABG Oxyhemoglobin ABG Potassium ABG Chloride ABG Glucose Oxyhemoglobin Potassium Chloride Carbon Dioxide BUN Creatinine Glucose POC Glucose 336 H 303 H 333 H Lactic Acid Magnesium AST ALT Alkaline Phosphatase Ammonia Troponin T Total Protein Albumin Triglycerides HDL Cholesterol Lipase Arterial Blood Glucose Arterial Blood Ionized Calcium Acetaminophen Crossmatch 03/24/21 03/24/21 03/24/21 08:03 08:03 08:57 WBC 12.7 H RBC 3.48 L Hgb 7.3 L Hct 26.3 L MCV 76 L MCH 21 L MCHC 28 L RDW 24.1 H Plt Count 499 H Seg Neuts % (Manual) Lymphocytes % (Manual) 1.0 L Monocytes % (Manual) 16.0 H Nucleated RBC % 11.0 H Seg Neutrophils # Man 8.1 H Lymphocytes # (Manual) 0.1 L Monocytes # (Manual) 2.1 H INR APTT D-Dimer ABG pH 7.477 H POC ABG pCO2 56.9 H POC ABG pO2 ABG pO2 ABG HCO3 ABG O2 Saturation ABG Base Excess ABG Hemoglobin 8.0 L ABG Oxyhemoglobin ABG Potassium ABG Chloride 93.0 L ABG Glucose 328 H Oxyhemoglobin Potassium Chloride 94.4 L Carbon Dioxide 38 H BUN 26 H Creatinine 0.5 L Glucose 348 H POC Glucose Lactic Acid Magnesium AST ALT Alkaline Phosphatase Ammonia Troponin T Total Protein Albumin Triglycerides HDL Cholesterol Lipase Arterial Blood Glucose 328 H Arterial Blood Ionized Calcium 4.5 L Acetaminophen Crossmatch 03/24/21 03/24/21 03/25/21 12:14 17:45 04:00 WBC 15.8 H RBC Hgb 7.5 L Hct 27.4 L MCV 75 L MCH 21 L MCHC 28 L RDW 24.0 H Plt Count 576 H Seg Neuts % (Manual) Lymphocytes % (Manual) Monocytes % (Manual) Nucleated RBC % Seg Neutrophils # Man Lymphocytes # (Manual) Monocytes # (Manual) INR APTT D-Dimer ABG pH POC ABG pCO2 POC ABG pO2 ABG pO2 ABG HCO3 ABG O2 Saturation ABG Base Excess ABG Hemoglobin ABG Oxyhemoglobin ABG Potassium ABG Chloride ABG Glucose Oxyhemoglobin Potassium Chloride Carbon Dioxide BUN Creatinine Glucose POC Glucose 315 H 324 H Lactic Acid Magnesium AST ALT Alkaline Phosphatase Ammonia Troponin T Total Protein Albumin Triglycerides HDL Cholesterol Lipase Arterial Blood Glucose Arterial Blood Ionized Calcium Acetaminophen Crossmatch 03/25/21 03/25/21 03/25/21 07:52 16:37 17:38 WBC RBC Hgb Hct MCV MCH MCHC RDW Plt Count Seg Neuts % (Manual) Lymphocytes % (Manual) Monocytes % (Manual) Nucleated RBC % Seg Neutrophils # Man Lymphocytes # (Manual) Monocytes # (Manual) INR APTT D-Dimer ABG pH POC ABG pCO2 POC ABG pO2 ABG pO2 ABG HCO3 ABG O2 Saturation ABG Base Excess ABG Hemoglobin ABG Oxyhemoglobin ABG Potassium ABG Chloride ABG Glucose Oxyhemoglobin Potassium Chloride 95.9 L Carbon Dioxide 33 H BUN 24 H Creatinine 0.4 L Glucose 289 H POC Glucose 321 H 295 H Lactic Acid Magnesium AST ALT Alkaline Phosphatase Ammonia Troponin T Total Protein Albumin Triglycerides HDL Cholesterol Lipase Arterial Blood Glucose Arterial Blood Ionized Calcium Acetaminophen Crossmatch 03/25/21 03/26/21 03/26/21 23:27 05:07 05:35 WBC 20.0 H RBC 3.37 L Hgb 7.0 L Hct 25.2 L MCV 75 L MCH 21 L MCHC 28 L RDW 24.0 H Plt Count 544 H Seg Neuts % (Manual) 72.0 H Lymphocytes % (Manual) 6.0 L Monocytes % (Manual) 8.0 H Nucleated RBC % Seg Neutrophils # Man 14.4 H Lymphocytes # (Manual) Monocytes # (Manual) 1.6 H INR APTT D-Dimer ABG pH POC ABG pCO2 POC ABG pO2 ABG pO2 ABG HCO3 ABG O2 Saturation ABG Base Excess ABG Hemoglobin ABG Oxyhemoglobin ABG Potassium ABG Chloride ABG Glucose Oxyhemoglobin Potassium Chloride Carbon Dioxide BUN Creatinine Glucose POC Glucose 231 H 200 H Lactic Acid Magnesium AST ALT Alkaline Phosphatase Ammonia Troponin T Total Protein Albumin Triglycerides HDL Cholesterol Lipase Arterial Blood Glucose Arterial Blood Ionized Calcium Acetaminophen Crossmatch 03/26/21 05:35 WBC RBC Hgb Hct MCV MCH MCHC RDW Plt Count Seg Neuts % (Manual) Lymphocytes % (Manual) Monocytes % (Manual) Nucleated RBC % Seg Neutrophils # Man Lymphocytes # (Manual) Monocytes # (Manual) INR APTT D-Dimer ABG pH POC ABG pCO2 POC ABG pO2 ABG pO2 ABG HCO3 ABG O2 Saturation ABG Base Excess ABG Hemoglobin ABG Oxyhemoglobin ABG Potassium ABG Chloride ABG Glucose Oxyhemoglobin Potassium 5.9 H D Chloride 91.9 L Carbon Dioxide 33 H BUN 20 H Creatinine 0.4 L Glucose 197 H POC Glucose Lactic Acid Magnesium AST ALT 169 H Alkaline Phosphatase 138 H Ammonia Troponin T Total Protein 5.5 L Albumin 3.2 L Triglycerides HDL Cholesterol Lipase Arterial Blood Glucose Arterial Blood Ionized Calcium Acetaminophen Crossmatch
[2021-03-26] MEDS ORDERED: INSULIN REGULAR, HUMAN 100 UNITS/1 ML IV SCH (09:30)
[2021-03-26] MEDS ORDERED: SODIUM POLYSTYRENE 15 GM/60 ML ORAL LIQD PO SCH (09:30)
[2021-03-26] MEDS: FAMOTIDINE 20 MG TAB FEEDTUBE SCH ×2 (09:49→21:53)
[2021-03-26] MEDS: SENNOSIDES/DOCUSATE SODIUM 8.6/50 MG TAB FEEDTUBE SCH ×2 (09:49→21:58)
[2021-03-26] MEDS: METOPROLOL TARTRATE 25 MG TAB PO SCH ×2 (09:49→22:21)
[2021-03-26] MEDS: methylPREDNISolone Sod Succinate 40 MG/1 ML INJ IV SCH ×2 (09:49→21:53)
[2021-03-26] MEDS: busPIRone 5 MG TAB PO SCH ×2 (09:49→21:53)
[2021-03-26] MEDS: DOCUSATE SODIUM 100 MG/10 ML ORAL LIQD PO SCH ×2 (09:49→21:58)
[2021-03-26] MEDS ORDERED: DULoxetine 30 MG CAP PO SCH (10:00)
[2021-03-26] MEDS ORDERED: DEXTROSE 50% IN WATER (25GM) 50 ML SYRINGE IV ONE (10:00)
[2021-03-26] MEDS: ALPRAZolam 1 MG TAB PO PRN (11:34)
--- NOTE | 2021-03-26 12:20 | Progress Note ---
<NOEMY OSUNA - Last Filed: 03/27/21 17:31> Assessment and Plan Assessment and plan: This is a 50-year-old female with COPD with oxygen dependence, DM, severe anxiety, GERD, HLD, HTN and PAGE admitted with SVT and hypertensive urgency. Hospital Course to Date: This is a 60-year-old female with COPD with oxygen dependence currently with palliative care, DM, former nicotine abuse, severe anxiety, GERD, HLD, HTN and PAGE presented to emergency department on 03/17 via EMS with complaints of sh ortness of breath. On arrival of EMS patient was found to be in SVT with a heart rate of about 200 and blood pressure to be quite elevated with systolic in 200s. She was given 6 mg of adenosine without significant changes subsequently given 12 mg of adenosine with improvement of her heart rate. Upon arrival to the emergency department patient was found to be in atrial fibrillation with RVR and dyspneic. Work-up in the emergency department revealed leukocytosis, lactic acidosis, transaminitis, hypoalbuminemia and a troponin leak. CXR, CT a chest and CT head were unremarkable. Patient was admitted to the hospitalist service with consults to [facility] and cardiology for further work-up of acute on chronic respiratory failure, SVT and hypertensive urgency. 03/18/2021: Patient is intubated and on vent support, Patient is in sinus tachycardia 03/19: COVID-19 PCR negative, remains on ventilatory support, Versed drip changed to propofol. No acute events reported overnight. Tracheal aspirate with few gram-positive Cocci. This afternoon, patient went in to the 150s, giving 500 mL NS bolus and fentanyl push to see if it pain related. If persists then will order prn Ativan per Dr. Gage recommendation. 03/20: Restarted on home metoprolol and abdominal ultrasound showed right hydronephrosis. Abd US shows right hydroureteronephrosis and will obtain a dedicated renal US. She seems to more comfortable on propofol and fentanyl 03/21: Patient's FiO2 had to be decreased overnight due to hypoxia and tachycardia. Hyperkalemia noted and given Kayexalate. 1 unit PRBC for hemoglobin 6.8. [facility] plans to extubate tomorrow. Increase in Lantus. 03/22: Transfuse one unit prbc, failed SBT in the AM d/t hypertension. [facility] extubated the patient but she was reintubated within [address] head ordered and pending read. Given kionex x2 for hyperkalemia 03/23: This morning patient was only on Precedex drip and overnight she had agitation, hypertension and tachycardia. RN instructed to place fentanyl drip. Increase in Lantus for better glucose control. Will remove [place] today. 03/24/2021: no acute events reported overnight. Patient remains intubated and is currently on fentanyl and Precedex. Increase in Lantus due to hyperglycemia. 03/25: no acute events overnight. increase in lantus and decreased steroids today. 03/26: Remains on the vent. Failed SAT/SBT trials this am due to increased HR, in the 150s. Hyperkalemic this am s/p X1 dose of kayaxalate, repeat BMP ordered. Fever overnight with leukocytosis, patient is on steroids, will panculture for now, hold on IV ABx for now Assessment and Plan #Neuro:Severe Anxiety #H/o Anxiety and depression -On low sedation with precedex and fentanyl gtt, RASS -1 -Tritrate sedation for a RASS goal 0 to -1 -Continue Buspar -Cymbalta on hold, can not be crush -Xanax added PRN for anxiety -Avoid delirium -PRN analgesia for CPOT greater than 3 -Maintenance of sleep-wake cycle #Cardio: Hypertensive emergency #A. fib with RVR #SVT-resolved -Presented with high BP and SVT, HR in 200 -s/p X2 doses of adenosine -Echocardiogram 10/2020 showed EF of 50 to 55% -Cardiology consulted, appreciate recommendations -Continue metoprolol BID -Continue AC- Heparin SubQ -Continue blood pressure monitor per protocol -Maintain MAP above 65 #Resp:Acute on chronic respiratory failure #H/o COPD and PAGE -Intubated on 03/17 , extubated and reintubated on 03/22 -Vent Setting:CMV- 40%,6,18,450 -AM ABG pending -[facility] consulted, appreciate recommendations -Continue IV Steroids and Nebs per CCM -VAP bundle addressed -Aspiration precaution HOB above 30 -Daily SBT and SAT trials as tolerated -Daily ABG and CXR per [facility] -Continue SPO2 monitoring for SPO2 goal above 92% #GI: Transaminitis-improving -Presented with elevated LFTs -LFTs downtrending, continue to trend LFts -Continue enteral nutrition -NTR on consulted -Continue PPI -Continue BR #:Hyperkalemia -K 5.9 this am -S/p X1 dose of kayaxalate -Continue to Trend BMP -Strict intake and output -Avoid nephrotoxic medications; Renally dose medications -Monitor and replace electrolytes as needed #Heme:Microcytic anemia -s/p 1 unit PRBCs -No s/s of any active bleeding -Continue to Trend CBC -Transfuse for hbg <7 -SCDs to BLE while in bed -Continue AC- Heparin SubQ #ID:Leukocytosis #Possible Bilateral Pneumonia -Imagings with bibasilar opacities and Pleural effusion -02/25 tracheal aspirate with few gram-positive cocci -Patient completed IV Abx course -Febrile overnight with persistent leukocytosis -Pancultured patient -Hold on IV ABx for now -Trend WBC and fever curve -Continue to F/U on B.cult -Daily CBC monitor -Consider ID consult if febrile or/and if leukocytosis persist #Endo: Hyperglycemia -Continue SSI q6hrs -Basal lantus increased -Avoid hypoglycemia The high probability of a clinically significant, sudden or life threatening deterioration of the [pulm/cv/Endo] system(s) required my full and direct attention, intervention and personal management. The aggregate critical care time was [60] minutes. This time is in addition to time spent performing reported procedures but includes the following: [x] Data Review and interpretation [x] Patient assessment and monitoring of vital signs [x] Documentation [x] Medication orders and management Disposition Plan: ICU Total Time Spent with Patient (Minutes): 60 History Interval history: Patient seen and examined at the bedside. Intubated and on low dose sedation, easily arousable RASS-1. Per RN, patient with increased anxiety and tachycardia overnight, sedation was titrated up. Hospitalist Physical - Constitutional Vitals: Temp Pulse Resp BP Pulse Ox 98.6 F 117 H 18 195/104 100 03/26/21 08:00 03/26/21 09:49 03/26/21 09:01 03/26/21 09:49 03/26/21 09:19 General appearance: Present: no acute distress, obese - EENT Eyes: Present: PERRL ENT: hearing intact - Neck Neck: Present: normal ROM - Respiratory Respiratory effort: normal Respiratory: bilateral: rhonchi - Cardiovascular Rhythm: regular Heart Sounds: Present: S1 & S2 - Extremities Extremities: no ischemia, pulses intact, pulses symmetrical Extremity abnormal: edema - Peripheral Assessment Generalized Edema Type: Non-pitting Edema Degree: 1+ Capillary Refill: < 3 seconds Skin Temperature: Warm Peripheral Pulses: within normal limits - Abdominal General gastrointestinal: soft, non-tender, normal bowel sounds - Integumentary Integumentary: Present: warm, dry - Psychiatric Psychiatric: cooperative, other (Anxious at times) - Neurologic Neurologic: moves all extremities - Allied Health Allied health notes reviewed: nursing HEART Score - HEART Score Troponin: Troponin T 0.015 ng/mL (0.00-0.029) 03/19/21 12:00 Results - Labs CBC & Chem 7: 03/27/21 04:15 03/27/21 04:15 Labs: Laboratory Last Values WBC 20.0 K/mm3 (4.5-11.0) H 03/26/21 05:35 RBC 3.37 M/mm3 (3.65-5.03) L 03/26/21 05:35 Hgb 7.0 gm/dl (10.1-14.3) L 03/26/21 05:35 Hct 25.2 % (30.3-42.9) L 03/26/21 05:35 MCV 75 fl (79-97) L 03/26/21 05:35 MCH 21 pg (28-32) L 03/26/21 05:35 MCHC 28 % (30-34) L 03/26/21 05:35 RDW 24.0 % (13.2-15.2) H 03/26/21 05:35 Plt Count 544 K/mm3 (140-440) H 03/26/21 05:35 Wood % (Auto) Leasing Director 03/24/21 08:03 Add Manual Diff Complete 03/26/21 05:35 Total Counted 100 03/26/21 05:35 Seg Neuts % (Manual) 72.0 % (40.0-70.0) H 03/26/21 05:35 Band Neutrophils % 5.0 % 03/26/21 05:35 Lymphocytes % (Manual) 6.0 % (13.4-35.0) L 03/26/21 05:35 Reactive Lymphs % (Man) 5.0 % 03/19/21 04:59 Monocytes % (Manual) 8.0 % (0.0-7.3) H 03/26/21 05:35 Metamyelocytes % 3.0 % 03/26/21 05:35 Myelocytes % 5.0 % 03/26/21 05:35 Promyelocytes % 1.0 % 03/26/21 05:35 Nucleated RBC % Not Reportable 03/26/21 05:35 Seg Neutrophils # Man 14.4 K/mm3 (1.8-7.7) H 03/26/21 05:35 Band Neutrophils # 1.0 K/mm3 03/26/21 05:35 Lymphocytes # (Manual) 1.2 K/mm3 (1.2-5.4) 03/26/21 05:35 Abs React Lymphs (Man) 0.0 K/mm3 03/26/21 05:35 Monocytes # (Manual) 1.6 K/mm3 (0.0-0.8) H 03/26/21 05:35 Eosinophils # (Manual) 0.0 K/mm3 (0.0-0.4) 03/26/21 05:35 Basophils # (Manual) 0.0 K/mm3 (0.0-0.1) 03/26/21 05:35 Metamyelocytes # 0.6 K/mm3 03/26/21 05:35 Myelocytes # 1.0 K/mm3 03/26/21 05:35 Promyelocytes # 0.2 K/mm3 03/26/21 05:35 Blast Cells # 0.0 K/mm3 03/26/21 05:35 WBC Morphology Not Reportable 03/26/21 05:35 Hypersegmented Neuts Not Reportable 03/26/21 05:35 Hyposegmented Neuts Not Reportable 03/26/21 05:35 Hypogranular Neuts Not Reportable 03/26/21 05:35 Smudge Cells Not Reportable 03/26/21 05:35 Toxic Granulation Not Reportable 03/26/21 05:35 Toxic Vacuolation Not Reportable 03/26/21 05:35 Dohle Bodies Not Reportable 03/26/21 05:35 Pelger-Huet Anomaly Not Reportable 03/26/21 05:35 Florentino Rods Not Reportable 03/26/21 05:35 Platelet Estimate Consistent w auto 03/26/21 05:35 Clumped Platelets Not Reportable 03/26/21 05:35 Plt Clumps, EDTA Not Reportable 03/26/21 05:35 Large Platelets 1+ 03/26/21 05:35 Giant Platelets Not Reportable 03/26/21 05:35 Platelet Satelliting Not Reportable 03/26/21 05:35 Plt Morphology Comment Not Reportable 03/26/21 05:35 RBC Morphology Not Reportable 03/26/21 05:35 Dimorphic RBCs Not Reportable 03/26/21 05:35 Polychromasia 1+ 03/26/21 05:35 Hypochromasia 2+ 03/26/21 05:35 Poikilocytosis 1+ 03/26/21 05:35 Anisocytosis 2+ 03/26/21 05:35 Microcytosis Not Reportable 03/26/21 05:35 Macrocytosis Not Reportable 03/26/21 05:35 Spherocytes Not Reportable 03/26/21 05:35 Pappenheimer Bodies Not Reportable 03/26/21 05:35 Sickle Cells Not Reportable 03/26/21 05:35 Target Cells 1+ 03/26/21 05:35 Tear Drop Cells 1+ 03/26/21 05:35 Ovalocytes Not Reportable 03/26/21 05:35 Stomatocytes 1+ 03/26/21 05:35 Helmet Cells Not Reportable 03/26/21 05:35 [place] Bodies Not Reportable 03/26/21 05:35 [place] Rings Not Reportable 03/26/21 05:35 [place] Cells Not Reportable 03/26/21 05:35 Bite Cells Not Reportable 03/26/21 05:35 Crenated Cell Not Reportable 03/26/21 05:35 Elliptocytes Not Reportable 03/26/21 05:35 Acanthocytes (Spur) Not Reportable 03/26/21 05:35 Rouleaux Not Reportable 03/26/21 05:35 Hemoglobin C Crystals Not Reportable 03/26/21 05:35 Schistocytes 1+ 03/26/21 05:35 Malaria parasites Not Reportable 03/26/21 05:35 Maykel Bodies Not Reportable 03/26/21 05:35 Hem Pathologist Commnt No 03/26/21 05:35 PT 12.6 Sec. (12.2-14.9) 03/17/21 17:37 INR 0.85 (0.87-1.13) L 03/17/21 17:37 APTT 23.3 Sec. (24.2-36.6) L 03/17/21 17:37 D-Dimer 947.92 ng/mlDDU (0-234) H 03/17/21 17:37 ABG pH 7.477 (7.320-7.450) H 03/24/21 08:57 POC ABG pCO2 56.9 mmHg (32.0-48.0) H 03/24/21 08:57 ABG pCO2 72.7 mm Hg 03/23/21 04:50 POC ABG pO2 100.6 mmHg (83-108) 03/24/21 08:57 ABG pO2 70.7 mm Hg (80.0-90.0) L 03/23/21 04:50 POC ABG HCO3 41.1 03/24/21 08:57 ABG HCO3 41.7 mmol/L (20.0-26.0) H 03/23/21 04:50 ABG O2 Saturation 98.3 (0-100) 03/24/21 08:57 ABG O2 Content 7.8 (0.0-44) 03/23/21 04:50 POC ABG Base Excess 15.8 03/24/21 08:57 ABG Base Excess 15.2 mmol/L (-2.0-3.0) H 03/23/21 04:50 ABG Hemoglobin 8.0 (12.0-17.5) L 03/24/21 08:57 ABG Oxyhemoglobin 96.8 (94-98) 03/24/21 08:57 ABG Carboxyhemoglobin 1.7 % (0.0-5.0) 03/23/21 04:50 ABG Methemoglobin 0.3 (0.0-1.5) 03/24/21 08:57 ABG Sodium 139.1 mmol/L (136.0-145.0) 03/24/21 08:57 ABG Potassium 3.9 mmol/L (3.40-4.50) 03/24/21 08:57 ABG Chloride 93.0 mmol/L (98-107) L 03/24/21 08:57 ABG Glucose 328 mg/dL (65-95) H 03/24/21 08:57 Oxyhemoglobin 96.9 % (95.0-99.0) 03/23/21 04:50 Carboxyhemoglobin 1.2 (0.5-1.5) 03/24/21 08:57 FiO2 40 % 03/23/21 04:50 FiO2 % 40 03/24/21 08:57 Sodium 138 mmol/L (137-145) 03/26/21 05:35 Potassium 5.9 mmol/L (3.6-5.0) H D 03/26/21 05:35 Chloride 91.9 mmol/L (98-107) L 03/26/21 05:35 Carbon Dioxide 33 mmol/L (22-30) H 03/26/21 05:35 Anion Gap 19 mmol/L 03/26/21 05:35 BUN 20 mg/dL (7-17) H 03/26/21 05:35 Creatinine 0.4 mg/dL (0.6-1.2) L 03/26/21 05:35 Estimated GFR > 60 ml/min 03/26/21 05:35 BUN/Creatinine Ratio 50 % 03/26/21 05:35 Glucose 197 mg/dL (65-100) H 03/26/21 05:35 POC Glucose 176 mg/dL (70-105) H 03/26/21 12:12 Lactic Acid 4.00 mmol/L (0.7-2.0) H* 03/17/21 23:36 Calcium 9.2 mg/dL (8.4-10.2) 03/26/21 05:35 Phosphorus 3.80 mg/dL (2.5-4.5) 03/26/21 05:35 Magnesium 2.20 mg/dL (1.7-2.3) 03/26/21 05:35 Total Bilirubin 0.30 mg/dL (0.1-1.2) 03/26/21 05:35 Direct Bilirubin < 0.2 mg/dL (0-0.2) 03/19/21 12:00 Indirect Bilirubin 0.1 mg/dL 03/19/21 12:00 AST 35 units/L (5-40) 03/26/21 05:35 ALT 169 units/L (7-56) H 03/26/21 05:35 Alkaline Phosphatase 138 units/L (35-129) H 03/26/21 05:35 Ammonia 26.0 umol/L (25-60) 03/19/21 12:00 Troponin T 0.015 ng/mL (0.00-0.029) 03/19/21 12:00 NT-Pro-B Natriuret Pep 576.0 pg/mL (0-900) 03/17/21 17:36 Total Protein 5.5 g/dL (6.3-8.2) L 03/26/21 05:35 Albumin 3.2 g/dL (3.9-5) L 03/26/21 05:35 Albumin/Globulin Ratio 1.4 % 03/26/21 05:35 Triglycerides 189 mg/dL (2-149) H 03/22/21 04:39 Cholesterol 191 mg/dL (50-199) 03/17/21 17:36 LDL Cholesterol Direct 80 mg/dL (50-130) 03/17/21 17:36 HDL Cholesterol 73 mg/dL (40-59) H 03/17/21 17:36 Cholesterol/HDL Ratio 2.61 % 03/17/21 17:36 Amylase 78 units/L (27-131) 03/19/21 Unknown Lipase 12 units/L (13-60) L 03/19/21 Unknown TSH 3.510 mlU/mL (0.270-4.200) 03/17/21 22:57 Arterial Blood Glucose 328 mg/dL (65-95) H 03/24/21 08:57 Arterial Blood Ionized Calcium 4.5 mg/dL (4.6-5.3) L 03/24/21 08:57 Urine Color Mayuri (Yellow) 03/17/21 19:42 Urine Turbidity Slightly-cloudy (Clear) 03/17/21 19:42 Urine pH 7.0 (5.0-7.0) 03/17/21 19:42 Ur Specific [place] 1.015 (1.003-1.030) 03/17/21 19:42 Urine Protein 100 mg/dl mg/dL (Negative) 03/17/21 19:42 Urine Glucose (UA) Neg mg/dL (Negative) 03/17/21 19:42 Urine Ketones 20 mg/dL (Negative) 03/17/21 19:42 Urine Blood Sm (Negative) 03/17/21 19:42 Urine Nitrite Neg (Negative) 03/17/21 19:42 Urine Bilirubin Neg (Negative) 03/17/21 19:42 Urine Urobilinogen 2.0 mg/dL (<2.0) 03/17/21 19:42 Ur Leukocyte Esterase Neg (Negative) 03/17/21 19:42 Urine WBC (Auto) 4.0 /HPF (0.0-6.0) 03/17/21 19:42 Urine RBC (Auto) 6.0 /HPF (0.0-6.0) 03/17/21 19:42 U Epithel Cells (Auto) 5.0 /HPF (0-13.0) 03/17/21 19:42 Urine Bacteria (Auto) 1+ /HPF (Negative) 03/17/21 19:42 Urine Mucus 1+ /HPF 03/17/21 19:42 Urine Yeast (Budding) Few /HPF 03/17/21 19:42 Acetaminophen 5.0 ug/mL (10.0-30.0) L 03/18/21 23:07 Coronavirus (PCR) Negative (Negative) 03/19/21 Unknown Blood Type A POSITIVE 03/21/21 14:08 Antibody Screen Negative 03/21/21 14:08 Crossmatch See Detail 03/21/21 14:08 Microbiology: Microbiology 03/26/21 08:06 Peripheral/Venous Blood Culture - Preliminary Culture in Progress 03/26/21 08:06 Peripheral/Venous Blood Culture - Preliminary Culture in Progress [place]/IV: Voiding Method External Female Catheter Active Medications - Current Medications Current Medications: Generic Name Dose Route Start Last Admin Trade Name Freq PRN Reason Stop Dose Admin Acetaminophen 650 mg 03/18/21 00:05 Acetaminophen 325 Mg Tab PO Q6H PRN Pain MILD(1-3)/Fever >100.5/TOVAR Albuterol 2.5 mg 03/22/21 08:00 Albuterol 2.5 Mg/3 Ml Nebu IH Q6H PRN Wheezing Alprazolam 1 mg 03/26/21 10:53 03/26/21 11:34 Alprazolam 1 Mg Tab PO 1 mg Q8H PRN Administration AGITATION Lipase/Protease/Amylase 1 each 03/19/21 18:16 Lipase 10,500/Protease 25,000/Amylase 43,750 (Units) Dr Newman FEEDTUBE PRN PRN For Clogged Feeding Tube Arformoterol Tartrate 15 mcg 03/24/21 11:00 03/26/21 09:01 Arformoterol 15 Mcg/2 Ml Nebu IH 15 mcg Q12HRT BUTCH Administration Atorvastatin Calcium 10 mg 03/19/21 22:00 03/25/21 23:33 Atorvastatin 10 Mg Tab PO 10 mg QHS BUTCH Administration Budesonide 0.5 mg 03/24/21 11:00 03/26/21 09:02 Budesonide 0.5 Mg/2 Ml Nebu IH 0.5 mg Q12HRT BUTCH Administration Buspirone HCl 5 mg 03/25/21 14:00 03/26/21 09:49 Buspirone 5 Mg Tab PO 5 mg BID BUTCH Administration Dextrose 0 ml 03/17/21 23:58 Dextrose 50% In Water (25gm) 50 Ml Syringe IV Q30MIN PRN Hypoglycemia Protocol Docusate Sodium 100 mg 03/23/21 10:00 03/26/21 09:49 Docusate Sodium 100 Mg/10 Ml Oral Liqd PO 100 mg BID BUTCH Administration Duloxetine HCl 60 mg 03/26/21 10:00 Duloxetine 30 Mg Cap PO QDAY BUTCH Famotidine 20 mg 03/20/21 22:00 03/26/21 09:49 Famotidine 20 Mg Tab FEEDTUBE 20 mg BID BUTCH Administration Fentanyl 50 mcg 03/26/21 10:08 Fentanyl 100 Mcg/2 Ml Inj IV Q2H PRN Pain, Moderate (4-6) Heparin Sodium (Porcine) 5,000 unit 03/18/21 06:00 03/25/21 23:34 Heparin 5,000 Unit/1 Ml Vial SUB-Q 5,000 unit Q8HR BUTCH Administration Hydrophilic Ointment 1 applic 03/17/21 17:35 Lip Therapy Vaseline TP Q2HR PRN Dry Lips Dexmedetomidine HCl 400 mcg/ 104 mls @ 4.306 mls/hr 03/21/21 13:00 03/26/21 12:04 Sodium Chloride IV 0.9 mcg/kg/hr TITRATE BUTCH 19.375 mls/hr Administration Protocol 0.2 MCG/KG/HR Fentanyl Citrate 2,000 mcg in 100 mls @ 4.14 mls/hr 03/22/21 15:00 03/26/21 07:00 Fentanyl Drip Premix IV 1 mcg/kg/hr TITR BUTCH 4.14 mls/hr Titration Protocol 1 MCG/KG/HR Insulin Glargine 25 units 03/25/21 22:00 03/25/21 23:34 Insulin Glargine 100 Units/Ml SUB-Q 25 units QHS BUTCH Administration Insulin Human Lispro 0 unit 03/19/21 12:00 03/26/21 01:18 Insulin Lispro 100 Unit/Ml SUB-Q 4 unit Q6HR BUTCH Administration Protocol Magnesium Hydroxide 30 ml 03/18/21 00:05 03/24/21 09:36 Magnesium Hydroxide (Mom) Oral Liqd Udc PO 30 ml Q4H PRN Administration Constipation Methylprednisolone Sodium Succinate 40 mg 03/25/21 22:00 03/26/21 09:49 Methylprednisolone Sod Succinate 40 Mg/1 Ml Inj IV 40 mg Q12HR BUTHC Administration Metoprolol Tartrate 25 mg 03/20/21 22:00 03/26/21 09:49 Metoprolol Tartrate 25 Mg Tab PO 25 mg BID BUTCH Administration Morphine Sulfate 2 mg 03/18/21 00:05 Morphine 2 Mg/1 Ml Inj IV Q4H PRN Pain, Moderate (4-6) Morphine Sulfate 4 mg 03/18/21 00:05 Morphine 4 Mg/1 Ml Inj IV Q4H PRN Pain , Severe (7-10) Multi-Ingred Cream/Lotion/Oil/Oint 1 applic 03/17/21 17:35 Mineral Oil/Petrolatum, White Ophth Oint 3.5 Gm OU Q4HR PRN Dry Eye(s) Senna/Docusate Sodium 1 tab 03/17/21 22:00 03/26/21 09:49 Sennosides/Docusate Sodium 8.6/50 Mg Tab FEEDTUBE 1 tab BID BUTCH Administration Simple Syrup 15 ml 03/19/21 18:16 Simple Syrup 15 Ml FEEDTUBE PRN PRN Hypoglycemia Simple Syrup 30 ml 03/19/21 18:16 Simple Syrup 15 Ml FEEDTUBE PRN PRN Hypoglycemia Sodium Bicarbonate 325 mg 03/19/21 18:16 Sodium Bicarbonate 325 Mg Tab FEEDTUBE PRN PRN For Clogged Feeding Tube Sodium Chloride 10 ml 03/18/21 10:00 03/26/21 09:50 Sodium Chloride 0.9% 10 Ml Flush Syringe IV 10 ml BID BUTCH Administration Sodium Chloride 10 ml 03/17/21 23:58 03/22/21 23:20 Sodium Chloride 0.9% 10 Ml Flush Syringe IV 10 ml PRN PRN Administration LINE FLUSH Nutrition/Malnutrition Assess - Dietary Evaluation Nutrition/Malnutrition Findings: Nutrition Notes Start: 03/18/21 09:46 Freq: Status: Active Protocol: Document 03/23/21 18:25 PAM (Rec: 03/23/21 18:30 PAM [id number]) Nutrition Notes Initial or Follow up Brief Note Current Diet TF-Promote @ 70 ml/hr (since D 03/19). Weight change and time frame No body weight change reported . Subjective/Other Information RD consult for TF tolerance. TF continues as prescribed. Percent of energy/protein needs met: Prescribed Promote @ 70 ml/hr provides for energy/protein needs (1,680 Kcal/105 g) during LOS. #1 Nutrition Diagnosis Inadequate oral intake Diagnosis Progress(for reassessment Continues documentation) Nutrition Intervention Nutrition Support: Continue Promote @ 70 ml/hr. Flush: 50 ml water Q 4 hr. Goal #1 Provide at least 75% of energy /protein needs through Enteral Feeding during LOS. Follow-Up By: 03/30/21 Additional Comments Continue monitoring TF tolerance, and BM. <LEANDER ARAIZA - Last Filed: 03/27/21 23:47> Assessment and Plan Assessment and plan: I saw and evaluated the patient. Discussed with the nurse practitioner and agree with their findings and plan as documented in this note. Hospitalist Physical - Constitutional Vitals: Temp Pulse Resp BP Pulse Ox 97.8 F 84 17 134/83 100 03/27/21 20:00 03/27/21 22:00 03/27/21 20:30 03/27/21 22:00 03/27/21 20:30 HEART Score - HEART Score Troponin: Troponin T 0.015 ng/mL (0.00-0.029) 03/19/21 12:00 Results - Labs CBC & Chem 7: 03/27/21 04:15 03/27/21 04:15 Labs: Laboratory Last Values WBC 21.4 K/mm3 (4.5-11.0) H 03/27/21 04:15 RBC 3.45 M/mm3 (3.65-5.03) L 03/27/21 04:15 Hgb 6.9 gm/dl (10.1-14.3) L 03/27/21 04:15 Hct 26.2 % (30.3-42.9) L 03/27/21 04:15 MCV 76 fl (79-97) L 03/27/21 04:15 MCH 20 pg (28-32) L 03/27/21 04:15 MCHC 27 % (30-34) L 03/27/21 04:15 RDW 24.5 % (13.2-15.2) H 03/27/21 04:15 Plt Count 500 K/mm3 (140-440) H 03/27/21 04:15 Wood % (Auto) Leasing Director 03/24/21 08:03 Add Manual Diff Complete 03/26/21 05:35 Total Counted 100 03/26/21 05:35 Seg Neuts % (Manual) 72.0 % (40.0-70.0) H 03/26/21 05:35 Band Neutrophils % 5.0 % 03/26/21 05:35 Lymphocytes % (Manual) 6.0 % (13.4-35.0) L 03/26/21 05:35 Reactive Lymphs % (Man) 5.0 % 03/19/21 04:59 Monocytes % (Manual) 8.0 % (0.0-7.3) H 03/26/21 05:35 Metamyelocytes % 3.0 % 03/26/21 05:35 Myelocytes % 5.0 % 03/26/21 05:35 Promyelocytes % 1.0 % 03/26/21 05:35 Nucleated RBC % Not Reportable 03/26/21 05:35 Seg Neutrophils # Man 14.4 K/mm3 (1.8-7.7) H 03/26/21 05:35 Band Neutrophils # 1.0 K/mm3 03/26/21 05:35 Lymphocytes # (Manual) 1.2 K/mm3 (1.2-5.4) 03/26/21 05:35 Abs React Lymphs (Man) 0.0 K/mm3 03/26/21 05:35 Monocytes # (Manual) 1.6 K/mm3 (0.0-0.8) H 03/26/21 05:35 Eosinophils # (Manual) 0.0 K/mm3 (0.0-0.4) 03/26/21 05:35 Basophils # (Manual) 0.0 K/mm3 (0.0-0.1) 03/26/21 05:35 Metamyelocytes # 0.6 K/mm3 03/26/21 05:35 Myelocytes # 1.0 K/mm3 03/26/21 05:35 Promyelocytes # 0.2 K/mm3 03/26/21 05:35 Blast Cells # 0.0 K/mm3 03/26/21 05:35 WBC Morphology Not Reportable 03/26/21 05:35 Hypersegmented Neuts Not Reportable 03/26/21 05:35 Hyposegmented Neuts Not Reportable 03/26/21 05:35 Hypogranular Neuts Not Reportable 03/26/21 05:35 Smudge Cells Not Reportable 03/26/21 05:35 Toxic Granulation Not Reportable 03/26/21 05:35 Toxic Vacuolation Not Reportable 03/26/21 05:35 Dohle Bodies Not Reportable 03/26/21 05:35 Pelger-Huet Anomaly Not Reportable 03/26/21 05:35 Florentino Rods Not Reportable 03/26/21 05:35 Platelet Estimate Consistent w auto 03/26/21 05:35 Clumped Platelets Not Reportable 03/26/21 05:35 Plt Clumps, EDTA Not Reportable 03/26/21 05:35 Large Platelets 1+ 03/26/21 05:35 Giant Platelets Not Reportable 03/26/21 05:35 Platelet Satelliting Not Reportable 03/26/21 05:35 Plt Morphology Comment Not Reportable 03/26/21 05:35 RBC Morphology Not Reportable 03/26/21 05:35 Dimorphic RBCs Not Reportable 03/26/21 05:35 Polychromasia 1+ 03/26/21 05:35 Hypochromasia 2+ 03/26/21 05:35 Poikilocytosis 1+ 03/26/21 05:35 Anisocytosis 2+ 03/26/21 05:35 Microcytosis Not Reportable 03/26/21 05:35 Macrocytosis Not Reportable 03/26/21 05:35 Spherocytes Not Reportable 03/26/21 05:35 Pappenheimer Bodies Not Reportable 03/26/21 05:35 Sickle Cells Not Reportable 03/26/21 05:35 Target Cells 1+ 03/26/21 05:35 Tear Drop Cells 1+ 03/26/21 05:35 Ovalocytes Not Reportable 03/26/21 05:35 Stomatocytes 1+ 03/26/21 05:35 Helmet Cells Not Reportable 03/26/21 05:35 [place] Bodies Not Reportable 03/26/21 05:35 [place] Rings Not Reportable 03/26/21 05:35 [place] Cells Not Reportable 03/26/21 05:35 Bite Cells Not Reportable 03/26/21 05:35 Crenated Cell Not Reportable 03/26/21 05:35 Elliptocytes Not Reportable 03/26/21 05:35 Acanthocytes (Spur) Not Reportable 03/26/21 05:35 Rouleaux Not Reportable 03/26/21 05:35 Hemoglobin C Crystals Not Reportable 03/26/21 05:35 Schistocytes 1+ 03/26/21 05:35 Malaria parasites Not Reportable 03/26/21 05:35 Maykel Bodies Not Reportable 03/26/21 05:35 Hem Pathologist Commnt No 03/26/21 05:35 PT 12.6 Sec. (12.2-14.9) 03/17/21 17:37 INR 0.85 (0.87-1.13) L 03/17/21 17:37 APTT 23.3 Sec. (24.2-36.6) L 03/17/21 17:37 D-Dimer 947.92 ng/mlDDU (0-234) H 03/17/21 17:37 ABG pH 7.477 (7.320-7.450) H 03/24/21 08:57 POC ABG pCO2 56.9 mmHg (32.0-48.0) H 03/24/21 08:57 ABG pCO2 72.7 mm Hg 03/23/21 04:50 POC ABG pO2 100.6 mmHg (83-108) 03/24/21 08:57 ABG pO2 70.7 mm Hg (80.0-90.0) L 03/23/21 04:50 POC ABG HCO3 41.1 03/24/21 08:57 ABG HCO3 41.7 mmol/L (20.0-26.0) H 03/23/21 04:50 ABG O2 Saturation 98.3 (0-100) 03/24/21 08:57 ABG O2 Content 7.8 (0.0-44) 03/23/21 04:50 POC ABG Base Excess 15.8 03/24/21 08:57 ABG Base Excess 15.2 mmol/L (-2.0-3.0) H 03/23/21 04:50 ABG Hemoglobin 8.0 (12.0-17.5) L 03/24/21 08:57 ABG Oxyhemoglobin 96.8 (94-98) 03/24/21 08:57 ABG Carboxyhemoglobin 1.7 % (0.0-5.0) 03/23/21 04:50 ABG Methemoglobin 0.3 (0.0-1.5) 03/24/21 08:57 ABG Sodium 139.1 mmol/L (136.0-145.0) 03/24/21 08:57 ABG Potassium 3.9 mmol/L (3.40-4.50) 03/24/21 08:57 ABG Chloride 93.0 mmol/L (98-107) L 03/24/21 08:57 ABG Glucose 328 mg/dL (65-95) H 03/24/21 08:57 Oxyhemoglobin 96.9 % (95.0-99.0) 03/23/21 04:50 Carboxyhemoglobin 1.2 (0.5-1.5) 03/24/21 08:57 FiO2 40 % 03/23/21 04:50 FiO2 % 40 03/24/21 08:57 Sodium 140 mmol/L (137-145) 03/27/21 04:15 Potassium 5.3 mmol/L (3.6-5.0) H 03/27/21 04:15 Chloride 94.4 mmol/L (98-107) L 03/27/21 04:15 Carbon Dioxide 35 mmol/L (22-30) H 03/27/21 04:15 Anion Gap 16 mmol/L 03/27/21 04:15 BUN 20 mg/dL (7-17) H 03/27/21 04:15 Creatinine 0.4 mg/dL (0.6-1.2) L 03/27/21 04:15 Estimated GFR > 60 ml/min 03/27/21 04:15 BUN/Creatinine Ratio 50 % 03/27/21 04:15 Glucose 310 mg/dL (65-100) H 03/27/21 04:15 POC Glucose 179 mg/dL (70-105) H 03/27/21 21:21 Lactic Acid 4.00 mmol/L (0.7-2.0) H* 03/17/21 23:36 Calcium 8.3 mg/dL (8.4-10.2) L 03/27/21 04:15 Phosphorus 4.60 mg/dL (2.5-4.5) H D 03/27/21 04:15 Magnesium 2.10 mg/dL (1.7-2.3) 03/27/21 04:15 Total Bilirubin 0.30 mg/dL (0.1-1.2) 03/26/21 05:35 Direct Bilirubin < 0.2 mg/dL (0-0.2) 03/19/21 12:00 Indirect Bilirubin 0.1 mg/dL 03/19/21 12:00 AST 35 units/L (5-40) 03/26/21 05:35 ALT 169 units/L (7-56) H 03/26/21 05:35 Alkaline Phosphatase 138 units/L (35-129) H 03/26/21 05:35 Ammonia 26.0 umol/L (25-60) 03/19/21 12:00 Troponin T 0.015 ng/mL (0.00-0.029) 03/19/21 12:00 NT-Pro-B Natriuret Pep 576.0 pg/mL (0-900) 03/17/21 17:36 Total Protein 5.5 g/dL (6.3-8.2) L 03/26/21 05:35 Albumin 3.2 g/dL (3.9-5) L 03/26/21 05:35 Albumin/Globulin Ratio 1.4 % 03/26/21 05:35 Triglycerides 189 mg/dL (2-149) H 03/22/21 04:39 Cholesterol 191 mg/dL (50-199) 03/17/21 17:36 LDL Cholesterol Direct 80 mg/dL (50-130) 03/17/21 17:36 HDL Cholesterol 73 mg/dL (40-59) H 03/17/21 17:36 Cholesterol/HDL Ratio 2.61 % 03/17/21 17:36 Amylase 78 units/L (27-131) 03/19/21 Unknown Lipase 12 units/L (13-60) L 03/19/21 Unknown TSH 3.510 mlU/mL (0.270-4.200) 03/17/21 22:57 Arterial Blood Glucose 328 mg/dL (65-95) H 03/24/21 08:57 Arterial Blood Ionized Calcium 4.5 mg/dL (4.6-5.3) L 03/24/21 08:57 Urine Color [place] (Yellow) 03/17/21 19:42 Urine Turbidity Slightly-cloudy (Clear) 03/17/21 19:42 Urine pH 7.0 (5.0-7.0) 03/17/21 19:42 Ur Specific [place] 1.015 (1.003-1.030) 03/17/21 19:42 Urine Protein 100 mg/dl mg/dL (Negative) 03/17/21 19:42 Urine Glucose (UA) Neg mg/dL (Negative) 03/17/21 19:42 Urine Ketones 20 mg/dL (Negative) 03/17/21 19:42 Urine Blood Sm (Negative) 03/17/21 19:42 Urine Nitrite Neg (Negative) 03/17/21 19:42 Urine Bilirubin Neg (Negative) 03/17/21 19:42 Urine Urobilinogen 2.0 mg/dL (<2.0) 03/17/21 19:42 Ur Leukocyte Esterase Neg (Negative) 03/17/21 19:42 Urine WBC (Auto) 4.0 /HPF (0.0-6.0) 03/17/21 19:42 Urine RBC (Auto) 6.0 /HPF (0.0-6.0) 03/17/21 19:42 U Epithel Cells (Auto) 5.0 /HPF (0-13.0) 03/17/21 19:42 Urine Bacteria (Auto) 1+ /HPF (Negative) 03/17/21 19:42 Urine Mucus 1+ /HPF 03/17/21 19:42 Urine Yeast (Budding) Few /HPF 03/17/21 19:42 Acetaminophen 5.0 ug/mL (10.0-30.0) L 03/18/21 23:07 Coronavirus (PCR) Negative (Negative) 03/19/21 Unknown Blood Type A POSITIVE 03/21/21 14:08 Antibody Screen Negative 03/21/21 14:08 Crossmatch See Detail 03/21/21 14:08 Microbiology: Microbiology 03/26/21 Unknown Tracheal Aspirate Sputum Culture - Preliminary 03/26/21 08:06 Peripheral/Venous Blood Culture - Preliminary NO GROWTH AFTER 24 HOURS 03/26/21 08:06 Peripheral/Venous Blood Culture - Preliminary NO GROWTH AFTER 24 HOURS [place]/IV: Voiding Method External Female Catheter Active Medications - Current Medications Current Medications: Generic Name Dose Route Start Last Admin Trade Name Freq PRN Reason Stop Dose Admin Acetaminophen 650 mg 03/18/21 00:05 Acetaminophen 325 Mg Tab PO Q6H PRN Pain MILD(1-3)/Fever >100.5/TOVAR Albuterol 2.5 mg 03/22/21 08:00 Albuterol 2.5 Mg/3 Ml Nebu IH Q6H PRN Wheezing Alprazolam 1 mg 03/26/21 10:53 03/27/21 22:00 Alprazolam 1 Mg Tab PO 1 mg Q8H PRN Administration AGITATION Lipase/Protease/Amylase 1 each 03/19/21 18:16 Lipase 10,500/Protease 25,000/Amylase 43,750 (Units) Dr Newman FEEDTUBE PRN PRN For Clogged Feeding Tube Arformoterol Tartrate 15 mcg 03/24/21 11:00 03/27/21 19:26 Arformoterol 15 Mcg/2 Ml Nebu IH 15 mcg Q12HRT BUTCH Administration Atorvastatin Calcium 10 mg 03/19/21 22:00 03/27/21 21:59 Atorvastatin 10 Mg Tab PO 10 mg QHS BUTCH Administration Budesonide 0.5 mg 03/24/21 11:00 03/27/21 19:26 Budesonide 0.5 Mg/2 Ml Nebu IH 0.5 mg Q12HRT BUTCH Administration Buspirone HCl 5 mg 03/25/21 14:00 03/27/21 22:00 Buspirone 5 Mg Tab PO 5 mg BID BUTCH Administration Dextrose 0 ml 03/17/21 23:58 Dextrose 50% In Water (25gm) 50 Ml Syringe IV Q30MIN PRN Hypoglycemia Protocol Docusate Sodium 100 mg 03/23/21 10:00 03/27/21 22:00 Docusate Sodium 100 Mg/10 Ml Oral Liqd PO 100 mg BID BUTCH Administration Duloxetine HCl 60 mg 03/26/21 10:00 Duloxetine 30 Mg Cap PO QDAY BUTCH Famotidine 20 mg 03/20/21 22:00 03/27/21 22:00 Famotidine 20 Mg Tab FEEDTUBE 20 mg BID BUTCH Administration Fentanyl 50 mcg 03/26/21 10:08 03/27/21 20:13 Fentanyl 100 Mcg/2 Ml Inj IV 50 mcg Q2H PRN Administration Pain, Moderate (4-6) Heparin Sodium (Porcine) 5,000 unit 03/18/21 06:00 03/27/21 21:59 Heparin 5,000 Unit/1 Ml Vial SUB-Q 5,000 unit Q8HR [facility] Administration Hydrophilic Ointment 1 applic 03/17/21 17:35 Lip Therapy Vaseline TP Q2HR PRN Dry Lips Dexmedetomidine HCl 400 mcg/ 104 mls @ 4.306 mls/hr 03/21/21 13:00 03/27/21 23:15 Sodium Chloride IV 0.8 mcg/kg/hr TITRATE BUTCH 17.222 mls/hr Administration Protocol 0.2 MCG/KG/HR Fentanyl Citrate 2,000 mcg in 100 mls @ 4.14 mls/hr 03/22/21 15:00 03/27/21 20:15 Fentanyl Drip Premix IV 2 mcg/kg/hr TITR BUTCH 8.28 mls/hr Titration Protocol 1 MCG/KG/HR Insulin Glargine 30 units 03/26/21 22:00 03/27/21 21:59 Insulin Glargine 100 Units/Ml SUB-Q 30 units QHS BUTCH Administration Insulin Human Lispro 0 unit 03/19/21 12:00 03/27/21 17:41 Insulin Lispro 100 Unit/Ml SUB-Q 4 unit Q6HR [facility] Administration Protocol Magnesium Hydroxide 30 ml 03/18/21 00:05 03/24/21 09:36 Magnesium Hydroxide (Mom) Oral Liqd Udc PO 30 ml Q4H PRN Administration Constipation Methylprednisolone Sodium Succinate 40 mg 03/25/21 22:00 03/27/21 21:59 Methylprednisolone Sod Succinate 40 Mg/1 Ml Inj IV 03/27/21 23:59 40 mg Q12HR BUTCH Administration Methylprednisolone Sodium Succinate 40 mg 03/28/21 10:00 Methylprednisolone Sod Succinate 40 Mg/1 Ml Inj IV Q24HR BUTCH Metoprolol Tartrate 25 mg 03/20/21 22:00 03/27/21 22:00 Metoprolol Tartrate 25 Mg Tab PO 25 mg BID BUTCH Administration Morphine Sulfate 2 mg 03/18/21 00:05 Morphine 2 Mg/1 Ml Inj IV Q4H PRN Pain, Moderate (4-6) Morphine Sulfate 4 mg 03/18/21 00:05 Morphine 4 Mg/1 Ml Inj IV Q4H PRN Pain , Severe (7-10) Multi-Ingred Cream/Lotion/Oil/Oint 1 applic 03/17/21 17:35 Mineral Oil/Petrolatum, White Ophth Oint 3.5 Gm OU Q4HR PRN Dry Eye(s) Senna/Docusate Sodium 1 tab 03/17/21 22:00 03/27/21 21:59 Sennosides/Docusate Sodium 8.6/50 Mg Tab FEEDTUBE 1 tab BID BUTCH Administration Simple Syrup 15 ml 03/19/21 18:16 Simple Syrup 15 Ml FEEDTUBE PRN PRN Hypoglycemia Simple Syrup 30 ml 03/19/21 18:16 Simple Syrup 15 Ml FEEDTUBE PRN PRN Hypoglycemia Sodium Bicarbonate 325 mg 03/19/21 18:16 Sodium Bicarbonate 325 Mg Tab FEEDTUBE PRN PRN For Clogged Feeding Tube Sodium Chloride 10 ml 03/18/21 10:00 03/27/21 22:00 Sodium Chloride 0.9% 10 Ml Flush Syringe IV 10 ml BID BUTCH Administration Sodium Chloride 10 ml 03/17/21 23:58 03/22/21 23:20 Sodium Chloride 0.9% 10 Ml Flush Syringe IV 10 ml PRN PRN Administration LINE FLUSH Nutrition/Malnutrition Assess - Dietary Evaluation Nutrition/Malnutrition Findings: Nutrition Notes Start: 03/18/21 09:46 Freq: Status: Active Protocol: Document 03/23/21 18:25 PAM (Rec: 03/23/21 18:30 PAM [id number]) Nutrition Notes Initial or Follow up Brief Note Current Diet TF-Promote @ 70 ml/hr (since D 03/19). Weight change and time frame No body weight change reported . Subjective/Other Information RD consult for TF tolerance. TF continues as prescribed. Percent of energy/protein needs met: Prescribed Promote @ 70 ml/hr provides for energy/protein needs (1,680 Kcal/105 g) during LOS. #1 Nutrition Diagnosis Inadequate oral intake Diagnosis Progress(for reassessment Continues documentation) Nutrition Intervention Nutrition Support: Continue Promote @ 70 ml/hr. Flush: 50 ml water Q 4 hr. Goal #1 Provide at least 75% of energy /protein needs through Enteral Feeding during LOS. Follow-Up By: 03/30/21 Additional Comments Continue monitoring TF tolerance, and BM.
--- NOTE | 2021-03-26 12:59 | Progress Note ---
Assessment and Plan - Patient Problems (1) Respiratory failure Current Visit: Yes Status: Acute Plan to address problem: Patient with long history of severe, oxygen dependent COPD, presents with respiratory failure due to COPD exacerbation. Sinus tachycardia on presentation is now resolved. Continue supportive management and current treatment of COPD exacerbation and sepsis. Subjective Date of service: 03/26/21 Principal diagnosis: Atrial fibrillation with RVR, respiratory failure Interval history: Patient is sedated, on the vent, stable sinus rhythm on radiation monitor. Objective Vital Signs Temp Pulse Pulse Pulse Pulse Pulse Pulse 03/26/21 09:49 117 H 03/26/21 09:19 03/26/21 09:01 93 H 03/26/21 08:00 98.6 F 93 H 03/26/21 03:30 92 H 03/26/21 03:18 101 F H 03/26/21 02:15 90 03/26/21 02:11 82 03/26/21 02:05 84 03/26/21 02:00 89 03/26/21 01:55 92 H 03/26/21 01:51 97 H 03/26/21 01:45 101 H 03/26/21 01:41 83 03/26/21 01:35 95 H 03/26/21 01:30 83 03/26/21 01:25 88 03/26/21 01:21 80 03/26/21 01:15 76 03/26/21 01:11 82 03/26/21 01:05 80 03/26/21 01:01 92 H 03/26/21 00:55 89 03/26/21 00:51 97 H 03/26/21 00:45 75 03/26/21 00:41 89 03/26/21 00:35 85 03/26/21 00:30 77 03/26/21 00:25 79 03/26/21 00:21 73 03/26/21 00:15 76 03/26/21 00:11 75 03/26/21 00:05 78 03/26/21 00:00 76 89 03/25/21 23:58 98.9 F 03/25/21 23:55 85 03/25/21 23:51 92 H 03/25/21 23:45 99 H 03/25/21 23:41 98 H 03/25/21 23:36 95 H 03/25/21 23:35 92 H 03/25/21 23:32 84 03/25/21 23:30 87 03/25/21 23:25 102 H 03/25/21 23:21 87 03/25/21 23:15 96 H 03/25/21 23:11 95 H 03/25/21 23:05 92 H 03/25/21 23:01 98 H 03/25/21 22:56 105 H 03/25/21 22:50 93 H 03/25/21 22:45 89 03/25/21 22:40 88 03/25/21 22:35 89 03/25/21 22:30 89 03/25/21 22:25 94 H 03/25/21 22:20 82 03/25/21 22:15 93 H 03/25/21 22:10 85 03/25/21 22:05 84 03/25/21 22:00 96 H 03/25/21 21:55 91 H 03/25/21 21:50 100 H 03/25/21 21:45 95 H 03/25/21 21:40 97 H 03/25/21 21:35 95 H 03/25/21 21:30 88 03/25/21 21:25 94 H 03/25/21 21:20 92 H 03/25/21 21:15 95 H 03/25/21 21:10 90 03/25/21 21:05 98 H 03/25/21 21:00 89 03/25/21 20:03 119 H 03/25/21 20:00 101 H 03/25/21 19:53 98.9 F 03/25/21 19:43 96 H 03/25/21 16:48 88 03/25/21 16:00 97.2 F L 121 H 121 H 121 H 121 H 03/25/21 15:11 105 H 03/25/21 15:05 88 03/25/21 15:00 90 03/25/21 14:55 91 H 03/25/21 14:51 88 03/25/21 14:45 92 H 03/25/21 14:40 101 H 03/25/21 14:35 92 H 03/25/21 14:30 102 H 03/25/21 14:25 95 H 03/25/21 14:21 96 H 03/25/21 14:15 100 H 03/25/21 14:11 101 H 03/25/21 14:05 107 H 03/25/21 14:00 119 H 03/25/21 13:55 147 H 03/25/21 13:51 148 H 03/25/21 13:40 03/25/21 13:31 159 H 03/25/21 13:00 111 H Pulse Resp Resp Resp BP Pulse Ox 03/26/21 09:49 195/104 03/26/21 09:19 100 03/26/21 09:01 18 03/26/21 08:00 192/81 100 03/26/21 03:30 144/72 100 03/26/21 03:18 03/26/21 02:15 15 138/84 100 03/26/21 02:11 9 L 138/84 100 03/26/21 02:05 10 L 138/84 100 03/26/21 02:00 10 L 138/84 99 03/26/21 01:55 13 145/79 99 03/26/21 01:51 10 L 145/79 100 03/26/21 01:45 13 145/79 99 03/26/21 01:41 18 145/79 100 03/26/21 01:35 11 L 145/79 100 03/26/21 01:30 12 145/79 99 03/26/21 01:25 11 L 147/73 99 03/26/21 01:21 17 147/73 100 03/26/21 01:15 15 147/73 100 03/26/21 01:11 17 147/73 100 03/26/21 01:05 12 147/73 100 03/26/21 01:01 18 147/73 100 03/26/21 00:55 18 123/73 99 03/26/21 00:51 16 123/73 100 03/26/21 00:45 18 123/73 100 03/26/21 00:41 21 123/73 100 03/26/21 00:35 21 123/73 100 03/26/21 00:30 17 123/73 100 03/26/21 00:25 16 110/59 100 03/26/21 00:21 13 110/59 100 03/26/21 00:15 18 110/59 100 03/26/21 00:11 18 110/59 100 03/26/21 00:05 19 110/59 100 03/26/21 00:00 18 110/59 100 03/25/21 23:58 03/25/21 23:55 16 121/68 100 03/25/21 23:51 16 121/68 100 03/25/21 23:45 16 121/68 100 03/25/21 23:41 17 121/68 100 03/25/21 23:36 121/68 100 03/25/21 23:35 17 121/68 100 03/25/21 23:32 121/68 03/25/21 23:30 14 121/68 100 03/25/21 23:25 14 118/71 90 03/25/21 23:21 16 118/71 100 03/25/21 23:15 18 118/71 100 03/25/21 23:11 12 118/71 100 03/25/21 23:05 17 111/67 100 03/25/21 23:01 16 111/67 100 03/25/21 22:56 12 118/71 100 03/25/21 22:50 11 L 118/71 100 03/25/21 22:45 17 118/71 100 03/25/21 22:40 17 118/71 100 03/25/21 22:35 14 118/71 100 03/25/21 22:30 15 118/71 100 03/25/21 22:25 14 138/87 100 03/25/21 22:20 14 138/87 100 03/25/21 22:15 18 138/87 100 03/25/21 22:10 16 138/87 100 03/25/21 22:05 18 138/87 100 03/25/21 22:00 12 16 138/87 100 03/25/21 21:55 13 132/58 100 03/25/21 21:50 11 L 132/58 100 02 21:45 18 132/58 100 03/25/21 21:40 12 132/58 100 03/25/21 21:35 19 132/58 100 03/25/21 21:30 13 132/58 100 03/25/21 21:25 12 125/62 100 02 21:20 12 125/62 100 02 21:15 18 125/62 100 02 21:10 18 125/62 100 02 21:05 12 125/62 100 01/02/22 21:00 15 125/62 100 03/25/21 20:03 20 03/25/21 20:00 20 98 03/25/21 19:53 03/25/21 19:43 110/64 100 03/25/21 16:48 121/55 100 03/25/21 16:00 90 17 100 03/25/21 15:11 18 90/44 100 03/25/21 15:05 18 90/44 100 03/25/21 15:00 17 90/44 100 03/25/21 14:55 17 85/47 100 03/25/21 14:51 19 85/47 100 03/25/21 14:45 18 85/47 100 03/25/21 14:40 18 76/42 03/25/21 14:35 19 69/38 100 03/25/21 14:30 21 69/38 99 03/25/21 14:25 18 99/52 03/25/21 14:21 19 99/52 03/25/21 14:15 20 99/52 03/25/21 14:11 21 99/52 03/25/21 14:05 16 99/52 03/25/21 14:00 19 99/52 03/25/21 13:55 25 H 208/130 03/25/21 13:51 27 H 208/130 03/25/21 13:40 98 03/25/21 13:31 25 H 208/130 03/25/21 13:00 15 141/90 - Physical Examination General: Other (Intubated, on the vent) Neck: Positive: neck supple Cardiac: Positive: Reg Rate and Rhythm Lungs: Positive: Decreased Breath Sounds Neuro: Positive: Grossly Intact, Other (Intubated, sedated on the vent) Abdomen: Positive: Soft Skin: Positive: Clear Extremities: Present: normal - Labs and Meds Cardiac Enzymes 03/26/21 Range/Units 05:35 AST 35 (5-40) units/L CBC 03/26/21 Range/Units 05:35 WBC 20.0 H (4.5-11.0) K/mm3 RBC 3.37 L (3.65-5.03) M/mm3 Hgb 7.0 L (10.1-14.3) gm/dl Hct 25.2 L (30.3-42.9) % Plt Count 544 H (140-440) K/mm3 Comprehensive Metabolic Panel 03/26/21 Range/Units 05:35 Sodium 138 (137-145) mmol/L Potassium 5.9 H D (3.6-5.0) mmol/L Chloride 91.9 L (98-107) mmol/L Carbon Dioxide 33 H (22-30) mmol/L BUN 20 H (7-17) mg/dL Creatinine 0.4 L (0.6-1.2) mg/dL Glucose 197 H (65-100) mg/dL Calcium 9.2 (8.4-10.2) mg/dL AST 35 (5-40) units/L ALT 169 H (7-56) units/L Alkaline Phosphatase 138 H (35-129) units/L Total Protein 5.5 L (6.3-8.2) g/dL Albumin 3.2 L (3.9-5) g/dL
[2021-03-26 17:26] LABS: Blood Urea Nitrogen 19 mg/dL (7-17); Calcium 8.6 mg/dL (8.4-10.2); Hemolysis Index 26
[2021-03-26 17:30] LABS: BUN/Creatinine Ratio 48
[2021-03-26] MEDS: HEPARIN 5,000 UNIT/1 ML VIAL SUB-Q SCH ×2 (19:08→21:53)
[2021-03-26] MEDS: fentaNYL DRIP Premix 2,000 MCG/100 ML BAG IV SCH (21:17)
[2021-03-26] MEDS: INSULIN GLARGINE 100 UNITS/ML SUB-Q SCH (22:20)
[2021-03-27] MEDS: INSULIN LISPRO 100 UNIT/ML SUB-Q SCH ×4 (01:04→17:41)
[2021-03-27] MEDS: fentaNYL DRIP Premix 2,000 MCG/100 ML BAG IV SCH ×2 (03:58→17:41)
[2021-03-27 05:23] LABS: Mean Corpuscular HGB Conc 27 % (30-34); Mean Corpuscular Volume 76 fl (79-97); Platelet Count 500 K/mm3 (140-440); Red Blood Count 3.45 M/mm3 (3.65-5.03)
[2021-03-27 05:27] LABS: Hematocrit 26.2 % (30.3-42.9); Hemoglobin 6.9 gm/dl (10.1-14.3); Red Cell Distribution Width 24.5 % (13.2-15.2)
[2021-03-27 05:39] LABS: Blood Urea Nitrogen 20 mg/dL (7-17); Calcium 8.3 mg/dL (8.4-10.2); Hemolysis Index 21
[2021-03-27 05:45] LABS: BUN/Creatinine Ratio 50
[2021-03-27] MEDS: HEPARIN 5,000 UNIT/1 ML VIAL SUB-Q SCH ×3 (06:03→21:59)
[2021-03-27] MEDS: ARFORMOTEROL 15 MCG/2 ML NEBU IH SCH ×2 (07:54→19:26)
[2021-03-27] MEDS: BUDESONIDE 0.5 MG/2 ML NEBU IH SCH ×2 (07:54→19:26)
[2021-03-27] MEDS ORDERED: SODIUM POLYSTYRENE 15 GM/60 ML ORAL LIQD PO SCH (09:00)
[2021-03-27] MEDS: methylPREDNISolone Sod Succinate 40 MG/1 ML INJ IV SCH ×2 (09:01→21:59)
[2021-03-27] MEDS: FAMOTIDINE 20 MG TAB FEEDTUBE SCH ×2 (09:01→22:00)
[2021-03-27] MEDS: METOPROLOL TARTRATE 25 MG TAB PO SCH ×2 (09:01→22:00)
[2021-03-27] MEDS: SENNOSIDES/DOCUSATE SODIUM 8.6/50 MG TAB FEEDTUBE SCH ×2 (09:01→21:59)
[2021-03-27] MEDS: busPIRone 5 MG TAB PO SCH ×2 (09:01→22:00)
[2021-03-27] MEDS: DOCUSATE SODIUM 100 MG/10 ML ORAL LIQD PO SCH ×2 (09:02→22:00)
--- NOTE | 2021-03-27 11:53 | Progress Note ---
Assessment and Plan - Patient Problems (1) Respiratory failure Current Visit: Yes Status: Acute Plan to address problem: Patient with long history of severe, oxygen dependent COPD, presents with respiratory failure due to COPD exacerbation. Sinus tachycardia on presentation is now resolved. Continue supportive management and current treatment of COPD exacerbation and sepsis. Subjective Date of service: 03/27/21 Principal diagnosis: Atrial fibrillation with RVR, respiratory failure Interval history: Patient is sedated, on the vent, sinus rhythm at 76, blood pressure 142 systolic. Objective Vital Signs Temp Pulse Pulse Pulse Pulse Resp Resp 03/27/21 11:37 97.9 F 03/27/21 09:01 74 03/27/21 07:54 71 69 18 03/27/21 07:25 73 18 03/27/21 07:21 98.6 F 70 18 03/27/21 07:15 70 18 03/27/21 07:11 70 18 03/27/21 07:05 78 13 03/27/21 07:01 69 10 L 03/27/21 06:55 75 13 03/27/21 06:51 69 18 03/27/21 06:45 75 16 03/27/21 06:41 71 14 03/27/21 06:35 80 14 03/27/21 06:31 80 17 03/27/21 06:25 101 H 17 03/27/21 06:21 109 H 11 L 03/27/21 06:15 91 H 16 03/27/21 06:11 84 17 03/27/21 06:05 76 14 03/27/21 06:00 75 18 03/27/21 05:55 75 17 03/27/21 05:51 77 17 03/27/21 05:45 70 17 03/27/21 05:41 72 18 03/27/21 05:35 73 18 03/27/21 05:30 76 18 03/27/21 05:25 71 18 03/27/21 05:21 78 18 03/27/21 05:15 69 18 03/27/21 05:14 76 03/27/21 05:11 74 18 03/27/21 05:05 71 19 03/27/21 05:00 73 18 03/27/21 04:55 76 18 03/27/21 04:51 70 18 03/27/21 04:45 83 17 03/27/21 04:41 71 15 03/27/21 04:35 79 20 03/27/21 04:30 75 18 03/27/21 04:25 82 19 03/27/21 04:21 91 H 17 03/27/21 04:15 81 18 03/27/21 04:11 81 15 03/27/21 04:05 76 14 03/27/21 04:01 98 H 17 03/27/21 04:00 98.2 F 84 84 82 19 03/27/21 03:55 82 17 03/27/21 03:51 77 17 03/27/21 03:45 78 18 03/27/21 03:41 80 18 03/27/21 03:35 87 18 03/27/21 03:31 79 18 03/27/21 03:25 89 18 03/27/21 03:21 79 18 03/27/21 03:15 77 19 03/27/21 03:11 74 18 03/27/21 03:05 79 17 03/27/21 03:01 80 19 03/27/21 02:55 83 22 03/27/21 02:51 85 18 03/27/21 02:45 88 19 03/27/21 02:41 86 16 03/27/21 02:35 97 H 10 L 03/27/21 02:31 91 H 13 03/27/21 02:25 86 15 03/27/21 02:21 92 H 13 03/27/21 02:15 82 12 03/27/21 02:11 93 H 14 03/27/21 02:05 86 17 03/27/21 02:00 95 H 13 03/27/21 01:55 90 16 03/27/21 01:51 98 H 11 L 03/27/21 01:45 80 17 03/27/21 01:41 83 16 03/27/21 01:35 83 14 03/27/21 01:31 81 17 03/27/21 01:25 80 17 03/27/21 01:23 90 03/27/21 01:21 84 15 03/27/21 01:15 81 18 03/27/21 01:11 79 11 L 03/27/21 01:05 76 9 L 03/27/21 01:01 77 12 03/27/21 00:55 75 13 03/27/21 00:51 73 17 03/27/21 00:45 75 17 03/27/21 00:41 70 15 03/27/21 00:35 75 18 03/27/21 00:30 75 18 03/27/21 00:25 85 18 03/27/21 00:21 69 18 03/27/21 00:15 81 18 03/27/21 00:11 79 17 03/27/21 00:05 77 18 03/27/21 00:00 97.6 F 76 84 82 16 03/26/21 23:55 69 16 03/26/21 23:51 78 18 03/26/21 23:45 81 17 03/26/21 23:41 84 14 03/26/21 23:39 82 19 03/26/21 23:35 80 14 03/26/21 23:31 84 22 03/26/21 23:25 79 18 03/26/21 23:21 81 19 03/26/21 23:15 85 13 03/26/21 23:11 86 15 03/26/21 23:05 74 17 03/26/21 23:01 76 18 03/26/21 22:55 86 18 03/26/21 22:51 76 17 03/26/21 22:45 77 18 03/26/21 22:41 78 18 03/26/21 22:35 80 19 03/26/21 22:30 79 18 03/26/21 22:25 85 17 03/26/21 22:21 84 18 03/26/21 22:15 80 18 03/26/21 22:11 76 18 03/26/21 22:05 79 17 03/26/21 22:00 82 18 03/26/21 21:55 82 17 03/26/21 21:51 81 18 03/26/21 21:45 89 19 03/26/21 21:40 90 17 03/26/21 21:35 88 18 03/26/21 21:30 91 H 15 03/26/21 21:25 88 18 03/26/21 21:21 96 H 18 03/26/21 21:15 88 18 03/26/21 21:11 84 14 03/26/21 21:05 03/26/21 21:01 93 H 19 03/26/21 20:55 106 H 14 03/26/21 20:51 117 H 19 03/26/21 20:45 107 H 18 03/26/21 20:41 152 H 18 03/26/21 20:35 158 H 98 H 15 18 03/26/21 20:31 127 H 14 03/26/21 20:25 140 H 14 03/26/21 20:21 204 H 17 03/26/21 20:15 115 H 17 03/26/21 20:11 105 H 18 03/26/21 20:09 101 H 03/26/21 20:05 103 H 18 03/26/21 20:00 91 H 86 19 03/26/21 19:55 102 H 22 03/26/21 19:51 101 H 18 03/26/21 19:45 105 H 17 03/26/21 19:41 110 H 18 03/26/21 19:35 139 H 19 03/26/21 19:31 148 H 21 03/26/21 19:25 133 H 21 03/26/21 19:21 03/26/21 19:15 03/26/21 19:11 111 H 18 03/26/21 19:05 103 H 18 03/26/21 19:00 90 18 03/26/21 18:55 81 19 03/26/21 18:51 103 H 18 03/26/21 18:45 89 18 03/26/21 18:41 92 H 13 03/26/21 18:35 95 H 17 03/26/21 18:30 83 18 03/26/21 18:25 93 H 17 03/26/21 18:21 92 H 18 03/26/21 18:15 94 H 17 03/26/21 18:11 84 19 03/26/21 18:05 96 H 13 03/26/21 18:00 90 19 03/26/21 17:55 81 17 03/26/21 17:51 76 19 03/26/21 17:45 87 14 03/26/21 17:41 85 18 03/26/21 17:35 83 18 03/26/21 17:31 84 17 03/26/21 17:25 94 H 14 03/26/21 17:21 90 18 03/26/21 17:15 93 H 13 03/26/21 17:11 89 15 03/26/21 17:05 86 18 03/26/21 17:00 102 H 17 03/26/21 16:55 80 17 03/26/21 16:50 118 H 18 03/26/21 16:45 92 H 18 03/26/21 16:40 91 H 18 03/26/21 16:35 92 H 18 03/26/21 16:30 82 20 03/26/21 16:25 84 18 03/26/21 16:20 92 H 18 03/26/21 16:15 102 H 15 03/26/21 16:14 100 H 03/26/21 16:10 85 18 03/26/21 16:05 85 19 03/26/21 16:00 98.6 F 95 H 18 03/26/21 15:55 81 15 03/26/21 15:50 82 19 03/26/21 15:15 81 18 03/26/21 15:11 91 H 16 03/26/21 15:05 83 17 03/26/21 15:00 88 17 03/26/21 14:55 101 H 18 03/26/21 14:51 113 H 18 03/26/21 14:45 137 H 13 03/26/21 14:41 102 H 18 03/26/21 14:35 101 H 14 03/26/21 14:30 91 H 16 03/26/21 14:25 89 18 03/26/21 14:21 79 17 03/26/21 14:15 83 19 03/26/21 14:11 82 18 03/26/21 14:05 108 H 15 03/26/21 14:00 100 H 18 03/26/21 13:55 92 H 16 03/26/21 13:51 95 H 17 03/26/21 13:45 109 H 17 03/26/21 13:41 99 H 15 03/26/21 13:35 132 H 18 03/26/21 13:30 107 H 18 03/26/21 13:25 112 H 18 03/26/21 13:21 114 H 21 03/26/21 13:15 108 H 13 03/26/21 13:11 102 H 17 03/26/21 13:05 109 H 19 03/26/21 13:01 239 H 24 03/26/21 12:55 196 H 28 H 03/26/21 12:51 150 H 19 03/26/21 12:45 18 03/26/21 12:41 261 H 22 03/26/21 12:35 117 H 23 03/26/21 12:30 90 18 03/26/21 12:25 97 H 25 H 03/26/21 12:21 122 H 20 03/26/21 12:15 126 H 18 03/26/21 12:11 109 H 18 03/26/21 12:05 125 H 19 03/26/21 12:01 103 H 15 03/26/21 12:00 98.7 F 24 03/26/21 11:55 112 H 18 Resp BP Pulse Ox 03/27/21 11:37 03/27/21 09:01 116/62 03/27/21 07:54 107/72 100 03/27/21 07:25 151/83 100 03/27/21 07:21 151/83 100 03/27/21 07:15 151/83 100 03/27/21 07:11 151/83 100 03/27/21 07:05 151/83 100 03/27/21 07:01 151/83 100 03/27/21 06:55 134/82 100 03/27/21 06:51 134/82 100 03/27/21 06:45 134/82 100 03/27/21 06:41 134/82 100 03/27/21 06:35 134/82 98 03/27/21 06:31 134/82 100 03/27/21 06:25 129/83 99 03/27/21 06:21 129/83 82 L 03/27/21 06:15 129/83 99 03/27/21 06:11 129/83 100 03/27/21 06:05 129/83 99 03/27/21 06:00 129/83 100 03/27/21 05:55 110/70 100 03/27/21 05:51 110/70 100 03/27/21 05:45 110/70 100 03/27/21 05:41 110/70 100 03/27/21 05:35 110/70 100 03/27/21 05:30 110/70 100 03/27/21 05:25 115/70 100 03/27/21 05:21 115/70 100 03/27/21 05:15 115/70 100 03/27/21 05:14 115/70 100 03/27/21 05:11 115/70 100 03/27/21 05:05 115/70 100 03/27/21 05:00 115/70 100 03/27/21 04:55 134/86 100 03/27/21 04:51 134/86 100 03/27/21 04:45 134/86 100 03/27/21 04:41 134/86 100 03/27/21 04:35 134/86 100 03/27/21 04:30 134/86 99 03/27/21 04:25 139/71 100 03/27/21 04:21 139/71 100 03/27/21 04:15 139/71 100 03/27/21 04:11 139/71 100 03/27/21 04:05 57/21 100 03/27/21 04:01 114/78 100 03/27/21 04:00 98 03/27/21 03:55 114/78 100 03/27/21 03:51 114/78 100 03/27/21 03:45 114/78 100 03/27/21 03:41 114/78 100 03/27/21 03:35 114/78 100 03/27/21 03:31 114/78 99 03/27/21 03:25 103/70 99 03/27/21 03:21 103/70 99 03/27/21 03:15 103/70 99 03/27/21 03:11 103/70 99 03/27/21 03:05 103/70 98 03/27/21 03:01 103/70 98 03/27/21 02:55 90/72 98 03/27/21 02:51 90/72 98 03/27/21 02:45 90/72 98 03/27/21 02:41 90/72 98 03/27/21 02:35 90/72 97 03/27/21 02:31 101/68 98 03/27/21 02:25 101/68 98 03/27/21 02:21 101/68 98 03/27/21 02:15 101/68 97 03/27/21 02:11 101/68 97 03/27/21 02:05 101/ 100 03/27/21 02:00 101/68 100 03/27/21 01:55 107/80 100 03/27/21 01:51 107/80 97 03/27/21 01:45 107/80 99 03/27/21 01:41 107/80 98 03/27/21 01:35 107/80 97 03/27/21 01:31 107/80 99 03/27/21 01:25 90/69 98 03/27/21 01:23 90/69 99 03/27/21 01:21 90/69 98 03/27/21 01:15 90/69 97 03/27/21 01:11 90/ 99 03/27/21 01:05 90/ 100 03/27/21 01:01 / 99 03/27/21 00:55 102/64 100 03/27/21 00:51 102/64 99 03/27/21 00:45 102/64 100 03/27/21 00:41 102/64 100 03/27/21 00:35 102/64 99 03/27/21 00:30 102/64 100 03/27/21 00:25 113/66 100 03/27/21 00:21 113/66 100 03/27/21 00:15 113/66 100 03/27/21 00:11 113/66 99 03/27/21 00:05 113/66 100 03/27/21 00:00 113/66 100 03/26/21 23:55 115/63 100 03/26/21 23:51 115/63 100 03/26/21 23:45 115/63 100 03/26/21 23:41 115/63 100 03/26/21 23:39 115/63 100 03/26/21 23:35 115/63 100 03/26/21 23:31 111/62 100 03/26/21 23:25 111/62 100 03/26/21 23:21 111/62 100 03/26/21 23:15 111/62 99 03/26/21 23:11 111/62 03/26/21 23:05 111/62 100 03/26/21 23:01 111/62 100 03/26/21 22:55 94/48 100 03/26/21 22:51 94/48 100 03/26/21 22:45 94/48 100 03/26/21 22:41 94/48 100 03/26/21 22:35 94/48 100 03/26/21 22:30 94/48 100 03/26/21 22:25 97/56 100 03/26/21 22:21 97/56 100 03/26/21 22:15 97/56 100 03/26/21 22:11 97/56 100 03/26/21 22:05 97/56 100 03/26/21 22:00 17 97/56 03/26/21 21:55 105/59 100 03/26/21 21:51 105/59 100 03/26/21 21:45 85/53 100 03/26/21 21:40 85/53 100 03/26/21 21:35 74/39 100 03/26/21 21:30 74/39 100 03/26/21 21:25 110/58 100 03/26/21 21:21 110/58 100 03/26/21 21:15 110/58 100 03/26/21 21:11 110/58 100 03/26/21 21:05 110/58 100 03/26/21 21:01 110/58 100 03/26/21 20:55 131/83 100 03/26/21 20:51 131/83 100 03/26/21 20:45 131/83 100 03/26/21 20:41 131/83 100 03/26/21 20:35 131/83 100 03/26/21 20:31 131/83 100 03/26/21 20:25 183/75 100 03/26/21 20:21 183/75 100 03/26/21 20:15 183/75 100 03/26/21 20:11 183/75 100 03/26/21 20:09 183/75 100 03/26/21 20:05 183/75 100 03/26/21 20:00 183/75 94 03/26/21 19:55 181/81 100 03/26/21 19:51 181/81 100 03/26/21 19:45 181/81 100 03/26/21 19:41 181/81 100 03/26/21 19:35 181/81 98 03/26/21 19:31 124/71 03/26/21 19:25 124/71 98 03/26/21 19:21 124/71 99 03/26/21 19:15 124/71 91 03/26/21 19:11 124/71 96 03/26/21 19:05 124/71 100 03/26/21 19:00 87/43 100 03/26/21 18:55 103/56 100 03/26/21 18:51 103/56 100 03/26/21 18:45 103/56 100 03/26/21 18:41 103/56 100 03/26/21 18:35 103/56 100 03/26/21 18:30 103/56 100 03/26/21 18:25 105/59 100 03/26/21 18:21 105/59 100 03/26/21 18:15 105/59 100 03/26/21 18:11 105/59 100 03/26/21 18:05 105/59 100 03/26/21 18:00 105/59 100 03/26/21 17:55 95/65 100 03/26/21 17:51 95/65 100 03/26/21 17:45 95/65 80 L 03/26/21 17:41 95/65 100 03/26/21 17:35 95/65 100 03/26/21 17:31 95/65 100 03/26/21 17:25 100/66 100 03/26/21 17:21 100/66 100 03/26/21 17:15 100/66 100 03/26/21 17:11 104/69 100 03/26/21 17:05 104/69 100 03/26/21 17:00 100/66 100 03/26/21 16:55 112/65 100 03/26/21 16:50 112/65 100 03/26/21 16:45 112/65 100 03/26/21 16:40 112/65 100 03/26/21 16:35 112/65 100 03/26/21 16:30 104/69 100 03/26/21 16:25 104/69 100 03/26/21 16:20 104/69 100 03/26/21 16:15 104/69 100 03/26/21 16:14 104/69 100 03/26/21 16:10 104/69 100 03/26/21 16:05 104/69 100 03/26/21 16:00 104/69 100 03/26/21 15:55 93/55 100 03/26/21 15:50 93/55 100 03/26/21 15:15 101/53 100 03/26/21 15:11 101/53 100 03/26/21 15:05 101/53 100 03/26/21 15:00 101/53 100 03/26/21 14:55 114/60 100 03/26/21 14:51 114/60 100 03/26/21 14:45 114/60 98 03/26/21 14:41 114/60 99 03/26/21 14:35 114/60 94 03/26/21 14:30 114/60 100 03/26/21 14:25 100/51 99 03/26/21 14:21 100/51 100 03/26/21 14:15 100/51 100 03/26/21 14:11 100/51 100 03/26/21 14:05 100/51 95 03/26/21 14:00 100/51 100 03/26/21 13:55 103/67 100 03/26/21 13:51 103/67 100 03/26/21 13:45 103/67 100 03/26/21 13:41 103/67 100 03/26/21 13:35 103/67 100 03/26/21 13:30 103/67 100 03/26/21 13:25 97/62 100 03/26/21 13:21 97/62 97 03/26/21 13:15 97/62 100 03/26/21 13:11 97/62 100 03/26/21 13:05 95/51 99 03/26/21 13:01 72/38 99 03/26/21 12:55 72/38 100 03/26/21 12:51 72/38 100 03/26/21 12:45 72/38 100 03/26/21 12:41 72/38 100 03/26/21 12:35 72/38 100 03/26/21 12:30 72/38 03/26/21 12:25 88/49 100 03/26/21 12:21 88/49 100 03/26/21 12:15 88/49 100 03/26/21 12:11 88/49 100 03/26/21 12:05 92/47 93 03/26/21 12:01 89/54 100 03/26/21 12:00 94 03/26/21 11:55 183/96 100 - Physical Examination General: Other (Intubated, on the vent) Neck: Positive: neck supple Cardiac: Positive: Reg Rate and Rhythm Lungs: Positive: Decreased Breath Sounds Neuro: Positive: Grossly Intact, Other (Intubated, sedated on the vent) Abdomen: Positive: Soft Skin: Positive: Clear Extremities: Present: normal - Labs and Meds CBC 03/27/21 Range/Units 04:15 WBC 21.4 H (4.5-11.0) K/mm3 RBC 3.45 L (3.65-5.03) M/mm3 Hgb 6.9 L (10.1-14.3) gm/dl Hct 26.2 L (30.3-42.9) % Plt Count 500 H (140-440) K/mm3 Comprehensive Metabolic Panel 03/26/21 03/27/21 Range/Units 16:50 04:15 Sodium 138 140 (137-145) mmol/L Potassium 5.2 H 5.3 H (3.6-5.0) mmol/L Chloride 91.7 L 94.4 L (98-107) mmol/L Carbon Dioxide 38 H 35 H (22-30) mmol/L BUN 19 H 20 H (7-17) mg/dL Creatinine 0.4 L 0.4 L (0.6-1.2) mg/dL Glucose 260 H 310 H (65-100) mg/dL Calcium 8.6 8.3 L (8.4-10.2) mg/dL
--- NOTE | 2021-03-27 11:58 | Progress Note ---
Assessment and Plan Assessment and plan: This is a 50-year-old female with COPD with oxygen dependence, DM, severe anxiety, GERD, HLD, HTN and PAGE admitted with SVT and hypertensive urgency. Hospital Course to Date: This is a 60-year-old female with COPD with oxygen dependence currently with palliative care, DM, former nicotine abuse, severe anxiety, GERD, HLD, HTN and PAGE presented to emergency department on 03/17 via EMS with complaints of shortness of breath. On arrival of EMS patient was found to be in SVT with a heart rate of about 200 and blood pressure to be quite elevated with systolic in 200s. She was given 6 mg of adenosine without significant changes subsequently given 12 mg of adenosine with improvement of her heart rate. Upon arrival to the emergency department patient was found to be in atrial fibrillation with RVR and dyspneic. Work-up in the emergency department revealed leukocytosis, lactic acidosis, transaminitis, hypoalbuminemia and a troponin leak. CXR, CT a chest and CT head were unremarkable. Patient was admitted to the hospitalist service with consults to [facility] and cardiology for further work-up of acute on chronic respiratory failure, SVT and hypertensive urgency. 03/18/2021: Patient is intubated and on vent support, Patient is in sinus tachycardia 03/19: COVID-19 PCR negative, remains on ventilatory support, Versed drip changed to propofol. No acute events reported overnight. Tracheal aspirate with few gram-positive Cocci. This afternoon, patient went in to the 150s, giving 500 mL NS bolus and fentanyl push to see if it pain related. If persists then will order prn Ativan per Dr. Gage recommendation. 03/20: Restarted on home metoprolol and abdominal ultrasound showed right hydronephrosis. Abd US shows right hydroureteronephrosis and will obtain a de dicated renal US. She seems to more comfortable on propofol and fentanyl 03/21: Patient's FiO2 had to be decreased overnight due to hypoxia and tachycardia. Hyperkalemia noted and given Kayexalate. 1 unit PRBC for hemoglobin 6.8. [facility] plans to extubate tomorrow. Increase in Lantus. 03/22: Transfuse one unit prbc, failed SBT in the AM d/t hypertension. [facility] extubated the patient but she was reintubated within [address] head ordered and pending read. Given kionex x2 for hyperkalemia 03/23: This morning patient was only on Precedex drip and overnight she had agitation, hypertension and tachycardia. RN instructed to place fentanyl drip. Increase in Lantus for better glucose control. Will remove [place] today. 03/24/2021: no acute events reported overnight. Patient remains intubated and is currently on fentanyl and Precedex. Increase in Lantus due to hyperglycemia. 03/25: no acute events overnight. increase in lantus and decreased steroids today. 03/26: Remains on the vent. Failed SAT/SBT trials this am due to increased HR, in the 150s. Hyperkalemic this am s/p X1 dose of kayaxalate, repeat BMP ordered. Fever overnight with leukocytosis, patient is on steroids, will panculture for now, hold on IV ABx for now 03/27: Patient failed SBT trial this am, HR increased in the 150s, most likely due to her severe anxiety. Patient is christina on low dose sedation, continue PRN Xanax. Hyperkalemia still slightly high, X1dose of kayaxalate ordered, repeat lab in the am. Assessment and Plan #Neuro:Severe Anxiety #H/o Anxiety and depression -On low sedation with precedex and fentanyl gtt, RASS -1 -Tritrate sedation for a RASS goal 0 to -1 -Continue Buspar -Cymbalta on hold, can not be crush -Xanax added PRN for anxiety -Avoid delirium -PRN analgesia for CPOT greater than 3 -Maintenance of sleep-wake cycle #Cardio: Hypertensive emergency #A. fib with RVR #SVT-resolved -Presented with high BP and SVT, HR in 200 -s/p X2 doses of adenosine -Echocardiogram 10/2020 showed EF of 50 to 55% -Cardiology consulted, appreciate recommendations -Continue metoprolol BID -Continue AC- Heparin SubQ -Continue blood pressure monitor per protocol -Maintain MAP above 65 #Resp:Acute on chronic respiratory failure #H/o COPD and PAGE -Intubated on 03/17 , extubated and reintubated on 03/22 -Vent Setting:CMV- 40%,6,18,450 -AM ABG pending -CCM consulted, appreciate recommendations -Continue IV Steroids and Nebs per CCM -VAP bundle addressed -Aspiration precaution HOB above 30 -Daily SBT and SAT trials as tolerated -Daily ABG and CXR per CCm -Continue SPO2 monitoring for SPO2 goal above 92% #GI: Transaminitis-improving -Presented with elevated LFTs -LFTs downtrending, continue to trend LFts -Continue enteral nutrition -NTR on consulted -Continue PPI -Continue BR #:Hyperkalemia -K still elevated this am -Repeat X1 dose of kayaxalate -Continue to Trend BMP -Strict intake and output -Avoid nephrotoxic medications; Renally dose medications -Monitor and replace electrolytes as needed #Heme:Microcytic anemia -s/p 1 unit PRBCs -No s/s of any active bleeding -Continue to Trend CBC -Transfuse for hbg <7 -SCDs to BLE while in bed -Continue AC- Heparin SubQ #ID:Leukocytosis #Possible Bilateral Pneumonia -Imagings with bibasilar opacities and Pleural effusion -12/ tracheal aspirate with few gram-positive cocci -Patient completed IV Abx course -Afebrile overnight -Blood cultures and sputum culture pending -Hold on IV ABx for now -Trend WBC and fever curve -Continue to F/U on B.cult -Daily CBC monitor -Consider ID consult if febrile or/and if leukocytosis persist #Endo: Hyperglycemia -Continue SSI q6hrs -Basal lantus increased -Avoid hypoglycemia The high probability of a clinically significant, sudden or life threatening deterioration of the [pulm/cv/Endo] system(s) required my full and direct attention, intervention and personal management. The aggregate critical care time was [60] minutes. This time is in addition to time spent performing report ed procedures but includes the following: [x] Data Review and interpretation [x] Patient assessment and monitoring of vital signs [x] Documentation [x] Medication orders and management Disposition Plan: ICU Total Time Spent with Patient (Minutes): 60 History Interval history: Patient seen and examined at the bedside. Intubated and sedated, on precedex and Fentanyl gtt RASS -2. Per RN, patient with increased anxiety/agitation, hypertensive, and tachycardic overnight, sedation increased. Hospitalist Physical - Constitutional Vitals: Temp Pulse Resp BP Pulse Ox 97.9 F 74 18 116/62 100 03/27/21 11:37 03/27/21 09:01 03/27/21 07:54 03/27/21 09:01 03/27/21 07:54 General appearance: Present: no acute distress, other (Intubated and sedated) - EENT Eyes: Present: PERRL ENT: hearing intact - Neck Neck: Present: normal ROM - Respiratory Respiratory effort: normal Respiratory: bilateral: rhonchi - Cardiovascular Rhythm: regular Heart Sounds: Present: S1 & S2 - Extremities Extremities: no ischemia, pulses intact, pulses symmetrical Extremity abnormal: edema - Peripheral Assessment Generalized Edema Type: Non-pitting Edema Degree: 1+ Capillary Refill: < 3 seconds Skin Temperature: Warm Peripheral Pulses: within normal limits - Abdominal General gastrointestinal: soft, non-tender, normal bowel sounds - Integumentary Integumentary: Present: warm, dry - Psychiatric Psychiatric: cooperative, other (Intubated and on sedation) - Neurologic Neurologic: moves all extremities, other (Intubated and sedated) - Allied Health Allied health notes reviewed: nursing HEART Score - HEART Score Troponin: Troponin T 0.015 ng/mL (0.00-0.029) 03/19/21 12:00 Results - Labs CBC & Chem 7: 03/27/21 04:15 03/27/21 04:15 Labs: Laboratory Last Values WBC 21.4 K/mm3 (4.5-11.0) H 03/27/21 04:15 RBC 3.45 M/mm3 (3.65-5.03) L 03/27/21 04:15 Hgb 6.9 gm/dl (10.1-14.3) L 03/27/21 04:15 Hct 26.2 % (30.3-42.9) L 03/27/21 04:15 MCV 76 fl (79-97) L 03/27/21 04:15 MCH 20 pg (28-32) L 03/27/21 04:15 MCHC 27 % (30-34) L 03/27/21 04:15 RDW 24.5 % (13.2-15.2) H 03/27/21 04:15 Plt Count 500 K/mm3 (140-440) H 03/27/21 04:15 [place] % (Auto) [employer] 03/24/21 08:03 Add Manual Diff Complete 03/26/21 05:35 Total Counted 100 03/26/21 05:35 Seg Neuts % (Manual) 72.0 % (40.0-70.0) H 03/26/21 05:35 Band Neutrophils % 5.0 % 03/26/21 05:35 Lymphocytes % (Manual) 6.0 % (13.4-35.0) L 03/26/21 05:35 Reactive Lymphs % (Man) 5.0 % 03/19/21 04:59 Monocytes % (Manual) 8.0 % (0.0-7.3) H 03/26/21 05:35 Metamyelocytes % 3.0 % 03/26/21 05:35 Myelocytes % 5.0 % 03/26/21 05:35 Promyelocytes % 1.0 % 03/26/21 05:35 Nucleated RBC % Not Reportable 03/26/21 05:35 Seg Neutrophils # Man 14.4 K/mm3 (1.8-7.7) H 03/26/21 05:35 Band Neutrophils # 1.0 K/mm3 03/26/21 05:35 Lymphocytes # (Manual) 1.2 K/mm3 (1.2-5.4) 03/26/21 05:35 Abs React Lymphs (Man) 0.0 K/mm3 03/26/21 05:35 Monocytes # (Manual) 1.6 K/mm3 (0.0-0.8) H 03/26/21 05:35 Eosinophils # (Manual) 0.0 K/mm3 (0.0-0.4) 03/26/21 05:35 Basophils # (Manual) 0.0 K/mm3 (0.0-0.1) 03/26/21 05:35 Metamyelocytes # 0.6 K/mm3 03/26/21 05:35 Myelocytes # 1.0 K/mm3 03/26/21 05:35 Promyelocytes # 0.2 K/mm3 03/26/21 05:35 Blast Cells # 0.0 K/mm3 03/26/21 05:35 WBC Morphology Not Reportable 03/26/21 05:35 Hypersegmented Neuts Not Reportable 03/26/21 05:35 Hyposegmented Neuts Not Reportable 03/26/21 05:35 Hypogranular Neuts Not Reportable 03/26/21 05:35 Smudge Cells Not Reportable 03/26/21 05:35 Toxic Granulation Not Reportable 03/26/21 05:35 Toxic Vacuolation Not Reportable 03/26/21 05:35 Dohle Bodies Not Reportable 03/26/21 05:35 Pelger-Huet Anomaly Not Reportable 03/26/21 05:35 Florentino Rods Not Reportable 03/26/21 05:35 Platelet Estimate Consistent w auto 03/26/21 05:35 Clumped Platelets Not Reportable 03/26/21 05:35 Plt Clumps, EDTA Not Reportable 03/26/21 05:35 Large Platelets 1+ 03/26/21 05:35 Giant Platelets Not Reportable 03/26/21 05:35 Platelet Satelliting Not Reportable 03/26/21 05:35 Plt Morphology Comment Not Reportable 03/26/21 05:35 RBC Morphology Not Reportable 03/26/21 05:35 Dimorphic RBCs Not Reportable 03/26/21 05:35 Polychromasia 1+ 03/26/21 05:35 Hypochromasia 2+ 03/26/21 05:35 Poikilocytosis 1+ 03/26/21 05:35 Anisocytosis 2+ 03/26/21 05:35 Microcytosis Not Reportable 03/26/21 05:35 Macrocytosis Not Reportable 03/26/21 05:35 Spherocytes Not Reportable 03/26/21 05:35 Pappenheimer Bodies Not Reportable 03/26/21 05:35 Sickle Cells Not Reportable 03/26/21 05:35 Target Cells 1+ 03/26/21 05:35 Tear Drop Cells 1+ 03/26/21 05:35 Ovalocytes Not Reportable 03/26/21 05:35 Stomatocytes 1+ 03/26/21 05:35 Helmet Cells Not Reportable 03/26/21 05:35 [place] Bodies Not Reportable 03/26/21 05:35 [place] Rings Not Reportable 03/26/21 05:35 Marcelo Cells Not Reportable 03/26/21 05:35 Bite Cells Not Reportable 03/26/21 05:35 Crenated Cell Not Reportable 03/26/21 05:35 Elliptocytes Not Reportable 03/26/21 05:35 Acanthocytes (Spur) Not Reportable 03/26/21 05:35 Rouleaux Not Reportable 03/26/21 05:35 Hemoglobin C Crystals Not Reportable 03/26/21 05:35 Schistocytes 1+ 03/26/21 05:35 Malaria parasites Not Reportable 03/26/21 05:35 Maykel Bodies Not Reportable 03/26/21 05:35 Hem Pathologist Commnt No 03/26/21 05:35 PT 12.6 Sec. (12.2-14.9) 03/17/21 17:37 INR 0.85 (0.87-1.13) L 03/17/21 17:37 APTT 23.3 Sec. (24.2-36.6) L 03/17/21 17:37 D-Dimer 947.92 ng/mlDDU (0-234) H 03/17/21 17:37 ABG pH 7.477 (7.320-7.450) H 03/24/21 08:57 POC ABG pCO2 56.9 mmHg (32.0-48.0) H 03/24/21 08:57 ABG pCO2 72.7 mm Hg 03/23/21 04:50 POC ABG pO2 100.6 mmHg (83-108) 03/24/21 08:57 ABG pO2 70.7 mm Hg (80.0-90.0) L 03/23/21 04:50 POC ABG HCO3 41.1 03/24/21 08:57 ABG HCO3 41.7 mmol/L (20.0-26.0) H 03/23/21 04:50 ABG O2 Saturation 98.3 (0-100) 03/24/21 08:57 ABG O2 Content 7.8 (0.0-44) 03/23/21 04:50 POC ABG Base Excess 15.8 03/24/21 08:57 ABG Base Excess 15.2 mmol/L (-2.0-3.0) H 03/23/21 04:50 ABG Hemoglobin 8.0 (12.0-17.5) L 03/24/21 08:57 ABG Oxyhemoglobin 96.8 (94-98) 03/24/21 08:57 ABG Carboxyhemoglobin 1.7 % (0.0-5.0) 03/23/21 04:50 ABG Methemoglobin 0.3 (0.0-1.5) 03/24/21 08:57 ABG Sodium 139.1 mmol/L (136.0-145.0) 03/24/21 08:57 ABG Potassium 3.9 mmol/L (3.40-4.50) 03/24/21 08:57 ABG Chloride 93.0 mmol/L (98-107) L 03/24/21 08:57 ABG Glucose 328 mg/dL (65-95) H 03/24/21 08:57 Oxyhemoglobin 96.9 % (95.0-99.0) 03/23/21 04:50 Carboxyhemoglobin 1.2 (0.5-1.5) 03/24/21 08:57 FiO2 40 % 03/23/21 04:50 FiO2 % 40 03/24/21 08:57 Sodium 140 mmol/L (137-145) 03/27/21 04:15 Potassium 5.3 mmol/L (3.6-5.0) H 03/27/21 04:15 Chloride 94.4 mmol/L (98-107) L 03/27/21 04:15 Carbon Dioxide 35 mmol/L (22-30) H 03/27/21 04:15 Anion Gap 16 mmol/L 03/27/21 04:15 BUN 20 mg/dL (7-17) H 03/27/21 04:15 Creatinine 0.4 mg/dL (0.6-1.2) L 03/27/21 04:15 Estimated GFR > 60 ml/min 03/27/21 04:15 BUN/Creatinine Ratio 50 % 03/27/21 04:15 Glucose 310 mg/dL (65-100) H 03/27/21 04:15 POC Glucose 273 mg/dL (70-105) H 03/27/21 11:21 Lactic Acid 4.00 mmol/L (0.7-2.0) H* 03/17/21 23:36 Calcium 8.3 mg/dL (8.4-10.2) L 03/27/21 04:15 Phosphorus 4.60 mg/dL (2.5-4.5) H D 03/27/21 04:15 Magnesium 2.10 mg/dL (1.7-2.3) 03/27/21 04:15 Total Bilirubin 0.30 mg/dL (0.1-1.2) 03/26/21 05:35 Direct Bilirubin < 0.2 mg/dL (0-0.2) 03/19/21 12:00 Indirect Bilirubin 0.1 mg/dL 03/19/21 12:00 AST 35 units/L (5-40) 03/26/21 05:35 ALT 169 units/L (7-56) H 03/26/21 05:35 Alkaline Phosphatase 138 units/L (35-129) H 03/26/21 05:35 Ammonia 26.0 umol/L (25-60) 03/19/21 12:00 Troponin T 0.015 ng/mL (0.00-0.029) 03/19/21 12:00 NT-Pro-B Natriuret Pep 576.0 pg/mL (0-900) 03/17/21 17:36 Total Protein 5.5 g/dL (6.3-8.2) L 03/26/21 05:35 Albumin 3.2 g/dL (3.9-5) L 03/26/21 05:35 Albumin/Globulin Ratio 1.4 % 03/26/21 05:35 Triglycerides 189 mg/dL (2-149) H 03/22/21 04:39 Cholesterol 191 mg/dL (50-199) 03/17/21 17:36 LDL Cholesterol Direct 80 mg/dL (50-130) 03/17/21 17:36 HDL Cholesterol 73 mg/dL (40-59) H 03/17/21 17:36 Cholesterol/HDL Ratio 2.61 % 03/17/21 17:36 Amylase 78 units/L (27-131) 03/19/21 Unknown Lipase 12 units/L (13-60) L 03/19/21 Unknown TSH 3.510 mlU/mL (0.270-4.200) 03/17/21 22:57 Arterial Blood Glucose 328 mg/dL (65-95) H 03/24/21 08:57 Arterial Blood Ionized Calcium 4.5 mg/dL (4.6-5.3) L 03/24/21 08:57 Urine Color [place] (Yellow) 03/17/21 19:42 Urine Turbidity Slightly-cloudy (Clear) 03/17/21 19:42 Urine pH 7.0 (5.0-7.0) 03/17/21 19:42 Ur Specific [place] 1.015 (1.003-1.030) 03/17/21 19:42 Urine Protein 100 mg/dl mg/dL (Negative) 03/17/21 19:42 Urine Glucose (UA) Neg mg/dL (Negative) 03/17/21 19:42 Urine Ketones 20 mg/dL (Negative) 03/17/21 19:42 Urine Blood Sm (Negative) 03/17/21 19:42 Urine Nitrite Neg (Negative) 03/17/21 19:42 Urine Bilirubin Neg (Negative) 03/17/21 19:42 Urine Urobilinogen 2.0 mg/dL (<2.0) 03/17/21 19:42 Ur Leukocyte Esterase Neg (Negative) 03/17/21 19:42 Urine WBC (Auto) 4.0 /HPF (0.0-6.0) 03/17/21 19:42 Urine RBC (Auto) 6.0 /HPF (0.0-6.0) 03/17/21 19:42 U Epithel Cells (Auto) 5.0 /HPF (0-13.0) 03/17/21 19:42 Urine Bacteria (Auto) 1+ /HPF (Negative) 03/17/21 19:42 Urine Mucus 1+ /HPF 03/17/21 19:42 Urine Yeast (Budding) Few /HPF 03/17/21 19:42 Acetaminophen 5.0 ug/mL (10.0-30.0) L 03/18/21 23:07 Coronavirus (PCR) Negative (Negative) 03/19/21 Unknown Blood Type A POSITIVE 03/21/21 14:08 Antibody Screen Negative 03/21/21 14:08 Crossmatch See Detail 03/21/21 14:08 Microbiology: Microbiology 03/26/21 08:06 Peripheral/Venous Blood Culture - Preliminary NO GROWTH AFTER 24 HOURS 03/26/21 08:06 Peripheral/Venous Blood Culture - Preliminary NO GROWTH AFTER 24 HOURS [place]/IV: Voiding Method External Female Catheter Active Medications - Current Medications Current Medications: Generic Name Dose Route Start Last Admin Trade Name Freq PRN Reason Stop Dose Admin Acetaminophen 650 mg 03/18/21 00:05 Acetaminophen 325 Mg Tab PO Q6H PRN Pain MILD(1-3)/Fever >100.5/TOVAR Albuterol 2.5 mg 03/22/21 08:00 Albuterol 2.5 Mg/3 Ml Nebu IH Q6H PRN Wheezing Alprazolam 1 mg 03/26/21 10:53 03/26/21 11:34 Alprazolam 1 Mg Tab PO 1 mg Q8H PRN Administration AGITATION Lipase/Protease/Amylase 1 each 03/19/21 18:16 Lipase 10,500/Protease 25,000/Amylase 43,750 (Units) Dr Newman FEEDTUBE PRN PRN For Clogged Feeding Tube Arformoterol Tartrate 15 mcg 03/24/21 11:00 03/27/21 07:54 Arformoterol 15 Mcg/2 Ml Nebu IH 15 mcg Q12HRT BUTCH Administration Atorvastatin Calcium 10 mg 03/19/21 22:00 03/26/21 21:53 Atorvastatin 10 Mg Tab PO 10 mg QHS BUTCH Administration Budesonide 0.5 mg 03/24/21 11:00 03/27/21 07:54 Budesonide 0.5 Mg/2 Ml Nebu IH 0.5 mg Q12HRT BUTCH Administration Buspirone HCl 5 mg 03/25/21 14:00 03/27/21 09:01 Buspirone 5 Mg Tab PO 5 mg BID BUTCH Administration Dextrose 0 ml 03/17/21 23:58 Dextrose 50% In Water (25gm) 50 Ml Syringe IV Q30MIN PRN Hypoglycemia Protocol Docusate Sodium 100 mg 03/23/21 10:00 03/27/21 09:02 Docusate Sodium 100 Mg/10 Ml Oral Liqd PO Not Given BID BUTCH Duloxetine HCl 60 mg 03/26/21 10:00 Duloxetine 30 Mg Cap PO QDAY BUTCH Famotidine 20 mg 03/20/21 22:00 03/27/21 09:01 Famotidine 20 Mg Tab FEEDTUBE 20 mg BID BUTCH Administration Fentanyl 50 mcg 03/26/21 10:08 Fentanyl 100 Mcg/2 Ml Inj IV Q2H PRN Pain, Moderate (4-6) Heparin Sodium (Porcine) 5,000 unit 03/18/21 06:00 03/27/21 06:03 Heparin 5,000 Unit/1 Ml Vial SUB-Q 5,000 unit Q8HR BUTCH Administration Hydrophilic Ointment 1 applic 03/17/21 17:35 Lip Therapy Vaseline TP Q2HR PRN Dry Lips Dexmedetomidine HCl 400 mcg/ 104 mls @ 4.306 mls/hr 03/21/21 13:00 03/27/21 11:19 Sodium Chloride IV Infused TITRATE [facility] Titration Protocol 0.2 MCG/KG/HR Fentanyl Citrate 2,000 mcg in 100 mls @ 4.14 mls/hr 03/22/21 15:00 03/27/21 11:19 Fentanyl Drip Premix IV 1 mcg/kg/hr TITR BUTCH 4.14 mls/hr Titration Protocol 1 MCG/KG/HR Insulin Glargine 30 units 03/26/21 22:00 03/26/21 22:20 Insulin Glargine 100 Units/Ml SUB-Q 30 units QHS [facility] Administration Insulin Human Lispro 0 unit 03/19/21 12:00 03/27/21 07:03 Insulin Lispro 100 Unit/Ml SUB-Q 8 unit Q6HR [facility] Administration Protocol Magnesium Hydroxide 30 ml 03/18/21 00:05 03/24/21 09:36 Magnesium Hydroxide (Mom) Oral Liqd Udc PO 30 ml Q4H PRN Administration Constipation Methylprednisolone Sodium Succinate 40 mg 03/25/21 22:00 03/27/21 09:01 Methylprednisolone Sod Succinate 40 Mg/1 Ml Inj IV 03/27/21 23:59 40 mg Q12HR [facility] Administration Methylprednisolone Sodium Succinate 40 mg 03/28/21 10:00 Methylprednisolone Sod Succinate 40 Mg/1 Ml Inj IV Q24HR [facility] Metoprolol Tartrate 25 mg 03/20/21 22:00 03/27/21 09:01 Metoprolol Tartrate 25 Mg Tab PO 25 mg BID [facility] Administration Morphine Sulfate 2 mg 03/18/21 00:05 Morphine 2 Mg/1 Ml Inj IV Q4H PRN Pain, Moderate (4-6) Morphine Sulfate 4 mg 03/18/21 00:05 Morphine 4 Mg/1 Ml Inj IV Q4H PRN Pain , Severe (7-10) Multi-Ingred Cream/Lotion/Oil/Oint 1 applic 03/17/21 17:35 Mineral Oil/Petrolatum, White Ophth Oint 3.5 Gm OU Q4HR PRN Dry Eye(s) Senna/Docusate Sodium 1 tab 03/17/21 22:00 03/27/21 09:01 Sennosides/Docusate Sodium 8.6/50 Mg Tab FEEDTUBE Not Given BID [facility] Simple Syrup 15 ml 12/27/21 18:16 Simple Syrup 15 Ml FEEDTUBE PRN PRN Hypoglycemia Simple Syrup 30 ml 03/19/21 18:16 Simple Syrup 15 Ml FEEDTUBE PRN PRN Hypoglycemia Sodium Bicarbonate 325 mg 03/19/21 18:16 Sodium Bicarbonate 325 Mg Tab FEEDTUBE PRN PRN For Clogged Feeding Tube Sodium Chloride 10 ml 03/18/21 10:00 03/27/21 09:00 Sodium Chloride 0.9% 10 Ml Flush Syringe IV 10 ml BID BUTCH Administration Sodium Chloride 10 ml 03/17/21 23:58 03/22/21 23:20 Sodium Chloride 0.9% 10 Ml Flush Syringe IV 10 ml PRN PRN Administration LINE FLUSH Sodium Polystyrene Sulfonate 60 gm 03/27/21 09:00 03/27/21 09:00 Sodium Polystyrene 15 Gm/60 Ml Oral Liqd PO 03/27/21 13:00 60 gm ONCE BUTCH Administration Nutrition/Malnutrition Assess - Dietary Evaluation Nutrition/Malnutrition Findings: Nutrition Notes Start: 03/18/21 09:46 Freq: Status: Active Protocol: Document 03/23/21 18:25 PAM (Rec: 03/23/21 18:30 PAM [id number]) Nutrition Notes Initial or Follow up Brief Note Current Diet TF-Promote @ 70 ml/hr (since D 03/19). Weight change and time frame No body weight change reported . Subjective/Other Information RD consult for TF tolerance. TF continues as prescribed. Percent of energy/protein needs met: Prescribed Promote @ 70 ml/hr provides for energy/protein needs (1,680 Kcal/105 g) during LOS. #1 Nutrition Diagnosis Inadequate oral intake Diagnosis Progress(for reassessment Continues documentation) Nutrition Intervention Nutrition Support: Continue Promote @ 70 ml/hr. Flush: 50 ml water Q 4 hr. Goal #1 Provide at least 75% of energy /protein needs through Enteral Feeding during LOS. Follow-Up By: 03/30/21 Additional Comments Continue monitoring TF tolerance, and BM.
--- NOTE | 2021-03-27 12:14 | Progress Note ---
Assessment and Plan 60 y/o female with acute on chronic respiratory failure, SVT and HTN likely all related to anxiety and stress 03/27/21: Monitor renal function and urine output closely. Not sure why K continues to be elevated despite daily correction therapy. Attempt PSV off fent but can continue precedex. Will see how patient looks tomorrow but still may not be a candidate for extubation. Drop steroids to daily starting tomorrow. 03/26/21: Continue daily PSV trials. Agree with my partner as I would like another trial of routine extubation before committing to trach. Discussed with family and patient at bedside this am. Continue solumedrol 40q12. IMS restarted buspar. WIll have psych see and evaluate to help with anxiety and depression once extubated. Guarded prognosis. 03/22/21: Please see event note for details. Planned to extubate today and wean steroids. 03/21/21: Echo given continued tachycardia despite adequate oxygenation. Can drop steroids to 40q8. 03/19/21: Continue sedation. Wean FiO2 for sats >88%. consider weaning steroid tomorrow. Follow up RUQ and trend LFT's 1. Wean Versed and place on Diprovan drip 2. Will give Fent 100 IV x1 now and order drip if needed for pain 3. Spoke with over the phone to get more history. Sounds like a panic attack not aborted by xanax therapy. Did check Tylenol level as patient has been in pain from fall 4. Elevated LFT's former drinker but confirms she has not been drinking. Ordered RUQ ultrasound and need to repeat LFT's tomorrow 5. Reviewed cards note, and they do not want to treat tachycardia or elevated bp, likely needs more sedation Guarded prognosis CCT 31 minutes. Subjective Date of service: 03/27/21 Principal diagnosis: Atrial fibrillation with RVR, respiratory failure Interval history: No acute events. Same vent settings. Had to increase sedation last night. Objective Vital Signs - 12hr 03/27/21 03/27/21 03/27/21 00:15 00:21 00:25 Temperature Pulse Rate 81 69 85 Pulse Rate [ Bilateral] Pulse Rate [ From Monitor] Pulse Rate [ Left Dorsalis Pedis] Respiratory 18 18 18 Rate Respiratory Rate [Bilateral ] Blood Pressure 113/66 113/66 113/66 O2 Sat by Pulse 100 100 100 Oximetry 03/27/21 03/27/21 03/27/21 00:30 00:35 00:41 Temperature Pulse Rate 75 75 70 Pulse Rate [ Bilateral] Pulse Rate [ From Monitor] Pulse Rate [ Left Dorsalis Pedis] Respiratory 18 18 15 Rate Respiratory Rate [Bilateral ] Blood Pressure 102/64 102/64 102/64 O2 Sat by Pulse 100 99 100 Oximetry 03/27/21 03/27/21 03/27/21 00:45 00:51 00:55 Temperature Pulse Rate 75 73 75 Pulse Rate [ Bilateral] Pulse Rate [ From Monitor] Pulse Rate [ Left Dorsalis Pedis] Respiratory 17 17 13 Rate Respiratory Rate [Bilateral ] Blood Pressure 102/64 102/64 102/64 O2 Sat by Pulse 100 99 100 Oximetry 03/27/21 03/27/21 03/27/21 01:01 01:05 01:11 Temperature Pulse Rate 77 76 79 Pulse Rate [ Bilateral] Pulse Rate [ From Monitor] Pulse Rate [ Left Dorsalis Pedis] Respiratory 12 9 L 11 L Rate Respiratory Rate [Bilateral ] Blood Pressure 90/69 90/69 90/69 O2 Sat by Pulse 99 100 99 Oximetry 03/27/21 03/27/21 03/27/21 01:15 01:21 01:23 Temperature Pulse Rate 81 84 90 Pulse Rate [ Bilateral] Pulse Rate [ From Monitor] Pulse Rate [ Left Dorsalis Pedis] Respiratory 18 15 Rate Respiratory Rate [Bilateral ] Blood Pressure 90/69 90/69 90/69 O2 Sat by Pulse 97 98 99 Oximetry 03/27/21 03/27/21 03/27/21 01:25 01:31 01:35 Temperature Pulse Rate 80 81 83 Pulse Rate [ Bilateral] Pulse Rate [ From Monitor] Pulse Rate [ Left Dorsalis Pedis] Respiratory 17 17 14 Rate Respiratory Rate [Bilateral ] Blood Pressure 90/69 107/80 107/80 O2 Sat by Pulse 98 99 97 Oximetry 03/27/21 03/27/21 03/27/21 01:41 01:45 01:51 Temperature Pulse Rate 83 80 98 H Pulse Rate [ Bilateral] Pulse Rate [ From Monitor] Pulse Rate [ Left Dorsalis Pedis] Respiratory 16 17 11 L Rate Respiratory Rate [Bilateral ] Blood Pressure 107/80 107/80 107/80 O2 Sat by Pulse 98 99 97 Oximetry 03/27/21 03/27/21 03/27/21 01:55 02:00 02:05 Temperature Pulse Rate 90 95 H 86 Pulse Rate [ Bilateral] Pulse Rate [ From Monitor] Pulse Rate [ Left Dorsalis Pedis] Respiratory 16 13 17 Rate Respiratory Rate [Bilateral ] Blood Pressure 107/80 101/68 101/68 O2 Sat by Pulse 100 100 100 Oximetry 03/27/21 03/27/21 03/27/21 02:11 02:15 02:21 Temperature Pulse Rate 93 H 82 92 H Pulse Rate [ Bilateral] Pulse Rate [ From Monitor] Pulse Rate [ Left Dorsalis Pedis] Respiratory 14 12 13 Rate Respiratory Rate [Bilateral ] Blood Pressure 101/68 101/68 101/68 O2 Sat by Pulse 97 97 98 Oximetry 03/27/21 03/27/21 03/27/21 02:25 02:31 02:35 Temperature Pulse Rate 86 91 H 97 H Pulse Rate [ Bilateral] Pulse Rate [ From Monitor] Pulse Rate [ Left Dorsalis Pedis] Respiratory 15 13 10 L Rate Respiratory Rate [Bilateral ] Blood Pressure 101/68 101/68 90/72 O2 Sat by Pulse 98 98 97 Oximetry 03/27/21 03/27/21 03/27/21 02:41 02:45 02:51 Temperature Pulse Rate 86 88 85 Pulse Rate [ Bilateral] Pulse Rate [ From Monitor] Pulse Rate [ Left Dorsalis Pedis] Respiratory 16 19 18 Rate Respiratory Rate [Bilateral ] Blood Pressure 90/72 90/72 90/72 O2 Sat by Pulse 98 98 98 Oximetry 03/27/21 03/27/21 03/27/21 02:55 03:01 03:05 Temperature Pulse Rate 83 80 79 Pulse Rate [ Bilateral] Pulse Rate [ From Monitor] Pulse Rate [ Left Dorsalis Pedis] Respiratory 22 19 17 Rate Respiratory Rate [Bilateral ] Blood Pressure 90/72 103/70 103/70 O2 Sat by Pulse 98 98 98 Oximetry 03/27/21 03/27/21 03/27/21 03:11 03:15 03:21 Temperature Pulse Rate 74 77 79 Pulse Rate [ Bilateral] Pulse Rate [ From Monitor] Pulse Rate [ Left Dorsalis Pedis] Respiratory 18 19 18 Rate Respiratory Rate [Bilateral ] Blood Pressure 103/70 103/70 103/70 O2 Sat by Pulse 99 99 99 Oximetry 03/27/21 03/27/21 03/27/21 03:25 03:31 03:35 Temperature Pulse Rate 89 79 87 Pulse Rate [ Bilateral] Pulse Rate [ From Monitor] Pulse Rate [ Left Dorsalis Pedis] Respiratory 18 18 18 Rate Respiratory Rate [Bilateral ] Blood Pressure 103/70 114/78 114/78 O2 Sat by Pulse 99 99 100 Oximetry 03/27/21 03/27/21 03/27/21 03:41 03:45 03:51 Temperature Pulse Rate 80 78 77 Pulse Rate [ Bilateral] Pulse Rate [ From Monitor] Pulse Rate [ Left Dorsalis Pedis] Respiratory 18 18 17 Rate Respiratory Rate [Bilateral ] Blood Pressure 114/78 114/78 114/78 O2 Sat by Pulse 100 100 100 Oximetry 03/27/21 03/27/21 03/27/21 03:55 04:00 04:01 Temperature 98.2 F Pulse Rate 82 84 98 H Pulse Rate [ Bilateral] Pulse Rate [ 84 From Monitor] Pulse Rate [ 82 Left Dorsalis Pedis] Respiratory 17 19 17 Rate Respiratory Rate [Bilateral ] Blood Pressure 114/78 114/78 O2 Sat by Pulse 100 98 100 Oximetry 03/27/21 03/27/21 03/27/21 04:05 04:11 04:15 Temperature Pulse Rate 76 81 81 Pulse Rate [ Bilateral] Pulse Rate [ From Monitor] Pulse Rate [ Left Dorsalis Pedis] Respiratory 14 15 18 Rate Respiratory Rate [Bilateral ] Blood Pressure 57/21 139/71 139/71 O2 Sat by Pulse 100 100 100 Oximetry 03/27/21 03/27/21 03/27/21 04:21 04:25 04:30 Temperature Pulse Rate 91 H 82 75 Pulse Rate [ Bilateral] Pulse Rate [ From Monitor] Pulse Rate [ Left Dorsalis Pedis] Respiratory 17 19 18 Rate Respiratory Rate [Bilateral ] Blood Pressure 139/71 139/71 134/86 O2 Sat by Pulse 100 100 99 Oximetry 03/27/21 03/27/21 03/27/21 04:35 04:41 04:45 Temperature Pulse Rate 79 71 83 Pulse Rate [ Bilateral] Pulse Rate [ From Monitor] Pulse Rate [ Left Dorsalis Pedis] Respiratory 20 15 17 Rate Respiratory Rate [Bilateral ] Blood Pressure 134/86 134/86 134/86 O2 Sat by Pulse 100 100 100 Oximetry 03/27/21 03/27/21 03/27/21 04:51 04:55 05:00 Temperature Pulse Rate 70 76 73 Pulse Rate [ Bilateral] Pulse Rate [ From Monitor] Pulse Rate [ Left Dorsalis Pedis] Respiratory 18 18 18 Rate Respiratory Rate [Bilateral ] Blood Pressure 134/86 134/86 115/70 O2 Sat by Pulse 100 100 100 Oximetry 03/27/21 03/27/21 03/27/21 05:05 05:11 05:14 Temperature Pulse Rate 71 74 76 Pulse Rate [ Bilateral] Pulse Rate [ From Monitor] Pulse Rate [ Left Dorsalis Pedis] Respiratory 19 18 Rate Respiratory Rate [Bilateral ] Blood Pressure 115/70 115/70 115/70 O2 Sat by Pulse 100 100 100 Oximetry 03/27/21 03/27/21 03/27/21 05:15 05:21 05:25 Temperature Pulse Rate 69 78 71 Pulse Rate [ Bilateral] Pulse Rate [ From Monitor] Pulse Rate [ Left Dorsalis Pedis] Respiratory 18 18 18 Rate Respiratory Rate [Bilateral ] Blood Pressure 115/70 115/70 115/70 O2 Sat by Pulse 100 100 100 Oximetry 03/27/21 03/27/21 03/27/21 05:30 05:35 05:41 Temperature Pulse Rate 76 73 72 Pulse Rate [ Bilateral] Pulse Rate [ From Monitor] Pulse Rate [ Left Dorsalis Pedis] Respiratory 18 18 18 Rate Respiratory Rate [Bilateral ] Blood Pressure 110/70 110/70 110/70 O2 Sat by Pulse 100 100 100 Oximetry 03/27/21 03/27/21 03/27/21 05:45 05:51 05:55 Temperature Pulse Rate 70 77 75 Pulse Rate [ Bilateral] Pulse Rate [ From Monitor] Pulse Rate [ Left Dorsalis Pedis] Respiratory 17 17 17 Rate Respiratory Rate [Bilateral ] Blood Pressure 110/70 110/70 110/70 O2 Sat by Pulse 100 100 100 Oximetry 03/27/21 03/27/21 03/27/21 06:00 06:05 06:11 Temperature Pulse Rate 75 76 84 Pulse Rate [ Bilateral] Pulse Rate [ From Monitor] Pulse Rate [ Left Dorsalis Pedis] Respiratory 18 14 17 Rate Respiratory Rate [Bilateral ] Blood Pressure 129/83 129/83 129/83 O2 Sat by Pulse 100 99 100 Oximetry 03/27/21 03/27/21 03/27/21 06:15 06:21 06:25 Temperature Pulse Rate 91 H 109 H 101 H Pulse Rate [ Bilateral] Pulse Rate [ From Monitor] Pulse Rate [ Left Dorsalis Pedis] Respiratory 16 11 L 17 Rate Respiratory Rate [Bilateral ] Blood Pressure 129/83 129/83 129/83 O2 Sat by Pulse 99 82 L 99 Oximetry 03/27/21 03/27/21 03/27/21 06:31 06:35 06:41 Temperature Pulse Rate 80 80 71 Pulse Rate [ Bilateral] Pulse Rate [ From Monitor] Pulse Rate [ Left Dorsalis Pedis] Respiratory 17 14 14 Rate Respiratory Rate [Bilateral ] Blood Pressure 134/82 134/82 134/82 O2 Sat by Pulse 100 98 100 Oximetry 03/27/21 03/27/21 03/27/21 06:45 06:51 06:55 Temperature Pulse Rate 75 69 75 Pulse Rate [ Bilateral] Pulse Rate [ From Monitor] Pulse Rate [ Left Dorsalis Pedis] Respiratory 16 18 13 Rate Respiratory Rate [Bilateral ] Blood Pressure 134/82 134/82 134/82 O2 Sat by Pulse 100 100 100 Oximetry 03/27/21 03/27/21 03/27/21 07:01 07:05 07:11 Temperature Pulse Rate 69 78 70 Pulse Rate [ Bilateral] Pulse Rate [ From Monitor] Pulse Rate [ Left Dorsalis Pedis] Respiratory 10 L 13 18 Rate Respiratory Rate [Bilateral ] Blood Pressure 151/83 151/83 151/83 O2 Sat by Pulse 100 100 100 Oximetry 03/27/21 03/27/21 03/27/21 07:15 07:21 07:25 Temperature 98.6 F Pulse Rate 70 70 73 Pulse Rate [ Bilateral] Pulse Rate [ From Monitor] Pulse Rate [ Left Dorsalis Pedis] Respiratory 18 18 18 Rate Respiratory Rate [Bilateral ] Blood Pressure 151/83 151/83 151/83 O2 Sat by Pulse 100 100 100 Oximetry 03/27/21 03/27/21 03/27/21 07:54 09:01 11:37 Temperature 97.9 F Pulse Rate 71 74 Pulse Rate [ 69 Bilateral] Pulse Rate [ From Monitor] Pulse Rate [ Left Dorsalis Pedis] Respiratory Rate Respiratory 18 Rate [Bilateral ] Blood Pressure 107/72 116/62 O2 Sat by Pulse 100 Oximetry Constitutional: other (critically ill on vent, sedated) Eyes: non-icteric ENT: oropharynx moist Neck: supple Effort: normal Ascultation: Bilateral: diminished breath sounds Cardiovascular: regular rate and rhythm (no mrg) Gastrointestinal: normoactive bowel sounds, soft, non-tender, non-distended Extremities: no cyanosis, no edema, pink and warm Neurologic: normal mental status, non-focal exam, pupils equal and round Psychiatric: mood appropriate, affect normal CBC and BMP: 03/27/21 04:15 03/27/21 04:15 ABG, PT/INR, D-dimer: ABG ABG pH 7.477 (7.320-7.450) H 03/24/21 08:57 POC ABG pCO2 56.9 mmHg (32.0-48.0) H 03/24/21 08:57 ABG pCO2 72.7 mm Hg 03/23/21 04:50 POC ABG pO2 100.6 mmHg (83-108) 03/24/21 08:57 ABG pO2 70.7 mm Hg (80.0-90.0) L 03/23/21 04:50 POC ABG HCO3 41.1 03/24/21 08:57 ABG O2 Saturation 98.3 (0-100) 03/24/21 08:57 PT/INR, D-dimer PT 12.6 Sec. (12.2-14.9) 03/17/21 17:37 INR 0.85 (0.87-1.13) L 03/17/21 17:37 D-Dimer 947.92 ng/mlDDU (0-234) H 03/17/21 17:37 Abnormal lab findings: Abnormal Labs 03/17/21 03/17/21 03/17/21 17:36 17:36 17:37 WBC 13.8 H RBC 3.48 L Hgb 7.0 L Hct 26.2 L MCV 75 L MCH 20 L MCHC 27 L RDW 25.4 H Plt Count Seg Neuts % (Manual) Lymphocytes % (Manual) Monocytes % (Manual) Nucleated RBC % 7.0 H Seg Neutrophils # Man 8.7 H Lymphocytes # (Manual) Monocytes # (Manual) INR 0.85 L APTT 23.3 L D-Dimer 947.92 H ABG pH POC ABG pCO2 POC ABG pO2 ABG pO2 ABG HCO3 ABG O2 Saturation ABG Base Excess ABG Hemoglobin ABG Oxyhemoglobin ABG Potassium ABG Chloride ABG Glucose Oxyhemoglobin Potassium Chloride 88.2 L Carbon Dioxide 38 H BUN Creatinine Glucose 129 H POC Glucose Lactic Acid Calcium Phosphorus Magnesium AST 177 H ALT 251 H Alkaline Phosphatase Ammonia Troponin T 0.036 H Total Protein 5.9 L Albumin 3.8 L Triglycerides 173 H HDL Cholesterol 73 H Lipase Arterial Blood Glucose Arterial Blood Ionized Calcium Acetaminophen Crossmatch 03/17/21 03/17/21 03/17/21 18:15 18:40 18:40 WBC RBC Hgb Hct MCV MCH MCHC RDW Plt Count Seg Neuts % (Manual) Lymphocytes % (Manual) Monocytes % (Manual) Nucleated RBC % Seg Neutrophils # Man Lymphocytes # (Manual) Monocytes # (Manual) INR APTT D-Dimer ABG pH POC ABG pCO2 POC ABG pO2 ABG pO2 94.4 H ABG HCO3 44.8 H ABG O2 Saturation ABG Base Excess 16.6 H ABG Hemoglobin ABG Oxyhemoglobin ABG Potassium ABG Chloride ABG Glucose Oxyhemoglobin Potassium Chloride Carbon Dioxide BUN Creatinine Glucose POC Glucose Lactic Acid 4.00 H* Calcium Phosphorus Magnesium AST ALT Alkaline Phosphatase Ammonia 116.0 H Troponin T Total Protein Albumin Triglycerides HDL Cholesterol Lipase Arterial Blood Glucose Arterial Blood Ionized Calcium Acetaminophen Crossmatch 03/17/21 03/18/21 03/18/21 23:36 00:25 23:07 WBC RBC Hgb Hct MCV MCH MCHC RDW Plt Count Seg Neuts % (Manual) Lymphocytes % (Manual) Monocytes % (Manual) Nucleated RBC % Seg Neutrophils # Man Lymphocytes # (Manual) Monocytes # (Manual) INR APTT D-Dimer ABG pH POC ABG pCO2 POC ABG pO2 ABG pO2 68.1 L ABG HCO3 40.2 H ABG O2 Saturation ABG Base Excess 14.4 H ABG Hemoglobin 6.5 L ABG Oxyhemoglobin ABG Potassium ABG Chloride ABG Glucose Oxyhemoglobin Potassium Chloride Carbon Dioxide BUN Creatinine Glucose POC Glucose Lactic Acid 4.00 H* Calcium Phosphorus Magnesium AST ALT Alkaline Phosphatase Ammonia Troponin T Total Protein Albumin Triglycerides HDL Cholesterol Lipase Arterial Blood Glucose Arterial Blood Ionized Calcium Acetaminophen 5.0 L Crossmatch 03/19/21 03/19/21 03/19/21 00:50 03:25 04:59 WBC RBC 3.43 L Hgb 7.0 L Hct 25.6 L MCV 75 L MCH 20 L MCHC 27 L RDW 25.6 H Plt Count Seg Neuts % (Manual) 91.0 H Lymphocytes % (Manual) Monocytes % (Manual) 9.0 H Nucleated RBC % 3.0 H Seg Neutrophils # Man 9.0 H Lymphocytes # (Manual) 0.0 L Monocytes # (Manual) INR APTT D-Dimer ABG pH 7.531 H POC ABG pCO2 POC ABG pO2 ABG pO2 49.6 L ABG HCO3 31.4 H ABG O2 Saturation 99.6 H ABG Base Excess 8.1 H ABG Hemoglobin 7.2 L ABG Oxyhemoglobin ABG Potassium ABG Chloride ABG Glucose Oxyhemoglobin Potassium Chloride Carbon Dioxide BUN Creatinine Glucose POC Glucose 127 H Lactic Acid Calcium Phosphorus Magnesium AST ALT Alkaline Phosphatase Ammonia Troponin T Total Protein Albumin Triglycerides HDL Cholesterol Lipase Arterial Blood Glucose Arterial Blood Ionized Calcium Acetaminophen Crossmatch 03/19/21 03/19/21 03/19/21 04:59 10:37 12:00 WBC RBC Hgb Hct MCV MCH MCHC RDW Plt Count Seg Neuts % (Manual) Lymphocytes % (Manual) Monocytes % (Manual) Nucleated RBC % Seg Neutrophils # Man Lymphocytes # (Manual) Monocytes # (Manual) INR APTT D-Dimer ABG pH 7.494 H POC ABG pCO2 POC ABG pO2 ABG pO2 107.3 H ABG HCO3 31.6 H ABG O2 Saturation ABG Base Excess 7.7 H ABG Hemoglobin 7.1 L ABG Oxyhemoglobin ABG Potassium ABG Chloride ABG Glucose Oxyhemoglobin Potassium Chloride 89.5 L Carbon Dioxide BUN Creatinine Glucose 121 H POC Glucose Lactic Acid Calcium Phosphorus Magnesium AST 359 H ALT 1434 H Alkaline Phosphatase Ammonia Troponin T Total Protein 5.7 L Albumin 3.5 L Triglycerides HDL Cholesterol Lipase Arterial Blood Glucose Arterial Blood Ionized Calcium Acetaminophen Crossmatch 03/19/21 03/19/21 03/19/21 12:05 17:52 23:23 WBC RBC Hgb Hct MCV MCH MCHC RDW Plt Count Seg Neuts % (Manual) Lymphocytes % (Manual) Monocytes % (Manual) Nucleated RBC % Seg Neutrophils # Man Lymphocytes # (Manual) Monocytes # (Manual) INR APTT D-Dimer ABG pH POC ABG pCO2 POC ABG pO2 ABG pO2 ABG HCO3 ABG O2 Saturation ABG Base Excess ABG Hemoglobin ABG Oxyhemoglobin ABG Potassium ABG Chloride ABG Glucose Oxyhemoglobin Potassium Chloride Carbon Dioxide BUN Creatinine Glucose POC Glucose 122 H 114 H 187 H Lactic Acid Calcium Phosphorus Magnesium AST ALT Alkaline Phosphatase Ammonia Troponin T Total Protein Albumin Triglycerides HDL Cholesterol Lipase Arterial Blood Glucose Arterial Blood Ionized Calcium Acetaminophen Crossmatch 03/19/21 03/20/21 03/20/21 Unknown 03:50 03:57 WBC RBC Hgb Hct MCV MCH MCHC RDW Plt Count Seg Neuts % (Manual) Lymphocytes % (Manual) Monocytes % (Manual) Nucleated RBC % Seg Neutrophils # Man Lymphocytes # (Manual) Monocytes # (Manual) INR APTT D-Dimer ABG pH 7.477 H POC ABG pCO2 POC ABG pO2 ABG pO2 67.9 L ABG HCO3 33.9 H ABG O2 Saturation ABG Base Excess 9.5 H ABG Hemoglobin 6.7 L ABG Oxyhemoglobin ABG Potassium ABG Chloride ABG Glucose Oxyhemoglobin Potassium Chloride Carbon Dioxide BUN Creatinine Glucose POC Glucose 247 H Lactic Acid Calcium Phosphorus Magnesium AST ALT Alkaline Phosphatase Ammonia Troponin T Total Protein Albumin Triglycerides HDL Cholesterol Lipase 12 L Arterial Blood Glucose Arterial Blood Ionized Calcium Acetaminophen Crossmatch 03/20/21 03/20/21 03/20/21 04:18 04:18 10:16 WBC RBC 3.48 L Hgb 7.0 L Hct 25.3 L MCV 73 L MCH 20 L MCHC 28 L RDW 25.2 H Plt Count 541 H Seg Neuts % (Manual) Lymphocytes % (Manual) Monocytes % (Manual) Nucleated RBC % Seg Neutrophils # Man Lymphocytes # (Manual) Monocytes # (Manual) INR APTT D-Dimer ABG pH POC ABG pCO2 POC ABG pO2 ABG pO2 63.3 L ABG HCO3 34.0 H ABG O2 Saturation 90.0 L ABG Base Excess 7.9 H ABG Hemoglobin 10.5 L ABG Oxyhemoglobin ABG Potassium ABG Chloride ABG Glucose Oxyhemoglobin 88.1 L Potassium Chloride 91.6 L Carbon Dioxide BUN 22 H Creatinine Glucose 245 H POC Glucose Lactic Acid Calcium Phosphorus Magnesium AST 148 H ALT 1096 H Alkaline Phosphatase 133 H Ammonia Troponin T Total Protein Albumin 3.5 L Triglycerides HDL Cholesterol Lipase Arterial Blood Glucose Arterial Blood Ionized Calcium Acetaminophen Crossmatch 03/20/21 03/20/21 03/21/21 12:05 17:26 00:18 WBC RBC Hgb Hct MCV MCH MCHC RDW Plt Count Seg Neuts % (Manual) Lymphocytes % (Manual) Monocytes % (Manual) Nucleated RBC % Seg Neutrophils # Man Lymphocytes # (Manual) Monocytes # (Manual) INR APTT D-Dimer ABG pH POC ABG pCO2 POC ABG pO2 ABG pO2 ABG HCO3 ABG O2 Saturation ABG Base Excess ABG Hemoglobin ABG Oxyhemoglobin ABG Potassium ABG Chloride ABG Glucose Oxyhemoglobin Potassium Chloride Carbon Dioxide BUN Creatinine Glucose POC Glucose 226 H 215 H 323 H Lactic Acid Calcium Phosphorus Magnesium AST ALT Alkaline Phosphatase Ammonia Troponin T Total Protein Albumin Triglycerides HDL Cholesterol Lipase Arterial Blood Glucose Arterial Blood Ionized Calcium Acetaminophen Crossmatch 03/21/21 03/21/21 03/21/21 04:00 05:05 09:28 WBC 12.0 H RBC 3.42 L Hgb 6.8 L Hct 25.3 L MCV 74 L MCH 20 L MCHC 27 L RDW 25.1 H Plt Count 650 H Seg Neuts % (Manual) Lymphocytes % (Manual) Monocytes % (Manual) Nucleated RBC % Seg Neutrophils # Man Lymphocytes # (Manual) Monocytes # (Manual) INR APTT D-Dimer ABG pH 7.348 L POC ABG pCO2 POC ABG pO2 ABG pO2 56.3 L ABG HCO3 36.9 H ABG O2 Saturation 83.4 L ABG Base Excess 10.0 H ABG Hemoglobin 7.0 L ABG Oxyhemoglobin ABG Potassium ABG Chloride ABG Glucose Oxyhemoglobin 81.7 L Potassium Chloride Carbon Dioxide BUN Creatinine Glucose POC Glucose 311 H Lactic Acid Calcium Phosphorus Magnesium AST ALT Alkaline Phosphatase Ammonia Troponin T Total Protein Albumin Triglycerides HDL Cholesterol Lipase Arterial Blood Glucose Arterial Blood Ionized Calcium Acetaminophen Crossmatch 03/21/21 03/21/21 03/21/21 09:28 12:31 14:08 WBC RBC Hgb Hct MCV MCH MCHC RDW Plt Count Seg Neuts % (Manual) Lymphocytes % (Manual) Monocytes % (Manual) Nucleated RBC % Seg Neutrophils # Man Lymphocytes # (Manual) Monocytes # (Manual) INR APTT D-Dimer ABG pH POC ABG pCO2 POC ABG pO2 ABG pO2 ABG HCO3 ABG O2 Saturation ABG Base Excess ABG Hemoglobin ABG Oxyhemoglobin ABG Potassium ABG Chloride ABG Glucose Oxyhemoglobin Potassium 5.1 H D Chloride 94.4 L Carbon Dioxide 33 H BUN 32 H Creatinine Glucose 319 H POC Glucose 295 H Lactic Acid Calcium Phosphorus Magnesium 2.40 H AST ALT 697 H Alkaline Phosphatase 134 H Ammonia Troponin T Total Protein 5.8 L Albumin 3.4 L Triglycerides HDL Cholesterol Lipase Arterial Blood Glucose Arterial Blood Ionized Calcium Acetaminophen Crossmatch See Detail 03/22/21 03/22/21 03/22/21 00:14 04:30 04:39 WBC RBC Hgb Hct MCV MCH MCHC RDW Plt Count Seg Neuts % (Manual) Lymphocytes % (Manual) Monocytes % (Manual) Nucleated RBC % Seg Neutrophils # Man Lymphocytes # (Manual) Monocytes # (Manual) INR APTT D-Dimer ABG pH 7.310 L POC ABG pCO2 POC ABG pO2 ABG pO2 65.4 L ABG HCO3 38.3 H ABG O2 Saturation 90.8 L ABG Base Excess 10.9 H ABG Hemoglobin 6.4 L ABG Oxyhemoglobin ABG Potassium ABG Chloride ABG Glucose Oxyhemoglobin 88.7 L Potassium Chloride Carbon Dioxide BUN Creatinine Glucose POC Glucose 326 H Lactic Acid Calcium Phosphorus Magnesium AST ALT Alkaline Phosphatase Ammonia Troponin T Total Protein Albumin Triglycerides 189 H HDL Cholesterol Lipase Arterial Blood Glucose Arterial Blood Ionized Calcium Acetaminophen Crossmatch 03/22/21 03/22/21 03/22/21 04:39 04:39 09:45 WBC 12.8 H RBC 3.34 L Hgb 6.6 L Hct 24.5 L MCV 73 L MCH 20 L MCHC 27 L RDW 25.5 H Plt Count 644 H Seg Neuts % (Manual) Lymphocytes % (Manual) Monocytes % (Manual) Nucleated RBC % Seg Neutrophils # Man Lymphocytes # (Manual) Monocytes # (Manual) INR APTT D-Dimer ABG pH POC ABG pCO2 65.7 H POC ABG pO2 59.7 L ABG pO2 ABG HCO3 ABG O2 Saturation ABG Base Excess ABG Hemoglobin 8.0 L ABG Oxyhemoglobin 86.3 L ABG Potassium 4.7 H ABG Chloride 94.0 L ABG Glucose 208 H Oxyhemoglobin Potassium 5.3 H Chloride 94.6 L Carbon Dioxide 34 H BUN 33 H Creatinine Glucose 291 H POC Glucose Lactic Acid Calcium Phosphorus Magnesium AST ALT Alkaline Phosphatase Ammonia Troponin T Total Protein Albumin Triglycerides HDL Cholesterol Lipase Arterial Blood Glucose 208 H Arterial Blood Ionized Calcium Acetaminophen Crossmatch 03/22/21 03/22/21 03/23/21 21:33 23:58 04:42 WBC 14.3 H RBC 3.63 L Hgb 7.6 L Hct 27.0 L MCV 74 L MCH 21 L MCHC 28 L RDW 23.1 H Plt Count 567 H Seg Neuts % (Manual) Lymphocytes % (Manual) Monocytes % (Manual) Nucleated RBC % Seg Neutrophils # Man Lymphocytes # (Manual) Monocytes # (Manual) INR APTT D-Dimer ABG pH POC ABG pCO2 POC ABG pO2 ABG pO2 ABG HCO3 ABG O2 Saturation ABG Base Excess ABG Hemoglobin ABG Oxyhemoglobin ABG Potassium ABG Chloride ABG Glucose Oxyhemoglobin Potassium Chloride Carbon Dioxide BUN Creatinine Glucose POC Glucose 170 H 156 H Lactic Acid Calcium Phosphorus Magnesium AST ALT Alkaline Phosphatase Ammonia Troponin T Total Protein Albumin Triglycerides HDL Cholesterol Lipase Arterial Blood Glucose Arterial Blood Ionized Calcium Acetaminophen Crossmatch 03/23/21 03/23/21 03/23/21 04:42 04:50 22:25 WBC RBC Hgb Hct MCV MCH MCHC RDW Plt Count Seg Neuts % (Manual) Lymphocytes % (Manual) Monocytes % (Manual) Nucleated RBC % Seg Neutrophils # Man Lymphocytes # (Manual) Monocytes # (Manual) INR APTT D-Dimer ABG pH POC ABG pCO2 POC ABG pO2 ABG pO2 70.7 L ABG HCO3 41.7 H ABG O2 Saturation ABG Base Excess 15.2 H ABG Hemoglobin 5.6 L ABG Oxyhemoglobin ABG Potassium ABG Chloride ABG Glucose Oxyhemoglobin Potassium Chloride 94.6 L Carbon Dioxide 37 H BUN 27 H Creatinine Glucose 311 H POC Glucose 295 H Lactic Acid Calcium Phosphorus Magnesium AST ALT Alkaline Phosphatase Ammonia Troponin T Total Protein Albumin Triglycerides HDL Cholesterol Lipase Arterial Blood Glucose Arterial Blood Ionized Calcium Acetaminophen Crossmatch 03/23/21 03/24/21 03/24/21 23:13 05:13 07:59 WBC RBC Hgb Hct MCV MCH MCHC RDW Plt Count Seg Neuts % (Manual) Lymphocytes % (Manual) Monocytes % (Manual) Nucleated RBC % Seg Neutrophils # Man Lymphocytes # (Manual) Monocytes # (Manual) INR APTT D-Dimer ABG pH POC ABG pCO2 POC ABG pO2 ABG pO2 ABG HCO3 ABG O2 Saturation ABG Base Excess ABG Hemoglobin ABG Oxyhemoglobin ABG Potassium ABG Chloride ABG Glucose Oxyhemoglobin Potassium Chloride Carbon Dioxide BUN Creatinine Glucose POC Glucose 336 H 303 H 333 H Lactic Acid Calcium Phosphorus Magnesium AST ALT Alkaline Phosphatase Ammonia Troponin T Total Protein Albumin Triglycerides HDL Cholesterol Lipase Arterial Blood Glucose Arterial Blood Ionized Calcium Acetaminophen Crossmatch 03/24/21 03/24/21 03/24/21 08:03 08:03 08:57 WBC 12.7 H RBC 3.48 L Hgb 7.3 L Hct 26.3 L MCV 76 L MCH 21 L MCHC 28 L RDW 24.1 H Plt Count 499 H Seg Neuts % (Manual) Lymphocytes % (Manual) 1.0 L Monocytes % (Manual) 16.0 H Nucleated RBC % 11.0 H Seg Neutrophils # Man 8.1 H Lymphocytes # (Manual) 0.1 L Monocytes # (Manual) 2.1 H INR APTT D-Dimer ABG pH 7.477 H POC ABG pCO2 56.9 H POC ABG pO2 ABG pO2 ABG HCO3 ABG O2 Saturation ABG Base Excess ABG Hemoglobin 8.0 L ABG Oxyhemoglobin ABG Potassium ABG Chloride 93.0 L ABG Glucose 328 H Oxyhemoglobin Potassium Chloride 94.4 L Carbon Dioxide 38 H BUN 26 H Creatinine 0.5 L Glucose 348 H POC Glucose Lactic Acid Calcium Phosphorus Magnesium AST ALT Alkaline Phosphatase Ammonia Troponin T Total Protein Albumin Triglycerides HDL Cholesterol Lipase Arterial Blood Glucose 328 H Arterial Blood Ionized Calcium 4.5 L Acetaminophen Crossmatch 03/24/21 03/24/21 03/25/21 12:14 17:45 04:00 WBC 15.8 H RBC Hgb 7.5 L Hct 27.4 L MCV 75 L MCH 21 L MCHC 28 L RDW 24.0 H Plt Count 576 H Seg Neuts % (Manual) Lymphocytes % (Manual) Monocytes % (Manual) Nucleated RBC % Seg Neutrophils # Man Lymphocytes # (Manual) Monocytes # (Manual) INR APTT D-Dimer ABG pH POC ABG pCO2 POC ABG pO2 ABG pO2 ABG HCO3 ABG O2 Saturation ABG Base Excess ABG Hemoglobin ABG Oxyhemoglobin ABG Potassium ABG Chloride ABG Glucose Oxyhemoglobin Potassium Chloride Carbon Dioxide BUN Creatinine Glucose POC Glucose 315 H 324 H Lactic Acid Calcium Phosphorus Magnesium AST ALT Alkaline Phosphatase Ammonia Troponin T Total Protein Albumin Triglycerides HDL Cholesterol Lipase Arterial Blood Glucose Arterial Blood Ionized Calcium Acetaminophen Crossmatch 03/25/21 03/25/21 03/25/21 07:52 16:37 17:38 WBC RBC Hgb Hct MCV MCH MCHC RDW Plt Count Seg Neuts % (Manual) Lymphocytes % (Manual) Monocytes % (Manual) Nucleated RBC % Seg Neutrophils # Man Lymphocytes # (Manual) Monocytes # (Manual) INR APTT D-Dimer ABG pH POC ABG pCO2 POC ABG pO2 ABG pO2 ABG HCO3 ABG O2 Saturation ABG Base Excess ABG Hemoglobin ABG Oxyhemoglobin ABG Potassium ABG Chloride ABG Glucose Oxyhemoglobin Potassium Chloride 95.9 L Carbon Dioxide 33 H BUN 24 H Creatinine 0.4 L Glucose 289 H POC Glucose 321 H 295 H Lactic Acid Calcium Phosphorus Magnesium AST ALT Alkaline Phosphatase Ammonia Troponin T Total Protein Albumin Triglycerides HDL Cholesterol Lipase Arterial Blood Glucose Arterial Blood Ionized Calcium Acetaminophen Crossmatch 03/25/21 03/26/21 03/26/21 23:27 05:07 05:35 WBC 20.0 H RBC 3.37 L Hgb 7.0 L Hct 25.2 L MCV 75 L MCH 21 L MCHC 28 L RDW 24.0 H Plt Count 544 H Seg Neuts % (Manual) 72.0 H Lymphocytes % (Manual) 6.0 L Monocytes % (Manual) 8.0 H Nucleated RBC % Seg Neutrophils # Man 14.4 H Lymphocytes # (Manual) Monocytes # (Manual) 1.6 H INR APTT D-Dimer ABG pH POC ABG pCO2 POC ABG pO2 ABG pO2 ABG HCO3 ABG O2 Saturation ABG Base Excess ABG Hemoglobin ABG Oxyhemoglobin ABG Potassium ABG Chloride ABG Glucose Oxyhemoglobin Potassium Chloride Carbon Dioxide BUN Creatinine Glucose POC Glucose 231 H 200 H Lactic Acid Calcium Phosphorus Magnesium AST ALT Alkaline Phosphatase Ammonia Troponin T Total Protein Albumin Triglycerides HDL Cholesterol Lipase Arterial Blood Glucose Arterial Blood Ionized Calcium Acetaminophen Crossmatch 03/26/21 03/26/21 03/26/21 05:35 10:33 12:12 WBC RBC Hgb Hct MCV MCH MCHC RDW Plt Count Seg Neuts % (Manual) Lymphocytes % (Manual) Monocytes % (Manual) Nucleated RBC % Seg Neutrophils # Man Lymphocytes # (Manual) Monocytes # (Manual) INR APTT D-Dimer ABG pH POC ABG pCO2 POC ABG pO2 ABG pO2 ABG HCO3 ABG O2 Saturation ABG Base Excess ABG Hemoglobin ABG Oxyhemoglobin ABG Potassium ABG Chloride ABG Glucose Oxyhemoglobin Potassium 5.9 H D Chloride 91.9 L Carbon Dioxide 33 H BUN 20 H Creatinine 0.4 L Glucose 197 H POC Glucose 132 H 176 H Lactic Acid Calcium Phosphorus Magnesium AST ALT 169 H Alkaline Phosphatase 138 H Ammonia Troponin T Total Protein 5.5 L Albumin 3.2 L Triglycerides HDL Cholesterol Lipase Arterial Blood Glucose Arterial Blood Ionized Calcium Acetaminophen Crossmatch 03/26/21 03/26/2103/26/22 16:50 18:06 22:19 WBC RBC Hgb Hct MCV MCH MCHC RDW Plt Count Seg Neuts % (Manual) Lymphocytes % (Manual) Monocytes % (Manual) Nucleated RBC % Seg Neutrophils # Man Lymphocytes # (Manual) Monocytes # (Manual) INR APTT D-Dimer ABG pH POC ABG pCO2 POC ABG pO2 ABG pO2 ABG HCO3 ABG O2 Saturation ABG Base Excess ABG Hemoglobin ABG Oxyhemoglobin ABG Potassium ABG Chloride ABG Glucose Oxyhemoglobin Potassium 5.2 H Chloride 91.7 L Carbon Dioxide 38 H BUN 19 H Creatinine 0.4 L Glucose 260 H POC Glucose 248 H 168 H Lactic Acid Calcium Phosphorus Magnesium AST ALT Alkaline Phosphatase Ammonia Troponin T Total Protein Albumin Triglycerides HDL Cholesterol Lipase Arterial Blood Glucose Arterial Blood Ionized Calcium Acetaminophen Crossmatch 03/27/21 03/27/21 03/27/21 01:02 01:32 04:15 WBC 21.4 H RBC 3.45 L Hgb 6.9 L Hct 26.2 L MCV 76 L MCH 20 L MCHC 27 L RDW 24.5 H Plt Count 500 H Seg Neuts % (Manual) Lymphocytes % (Manual) Monocytes % (Manual) Nucleated RBC % Seg Neutrophils # Man Lymphocytes # (Manual) Monocytes # (Manual) INR APTT D-Dimer ABG pH POC ABG pCO2 POC ABG pO2 ABG pO2 ABG HCO3 ABG O2 Saturation ABG Base Excess ABG Hemoglobin ABG Oxyhemoglobin ABG Potassium ABG Chloride ABG Glucose Oxyhemoglobin Potassium Chloride Carbon Dioxide BUN Creatinine Glucose POC Glucose 219 H 221 H Lactic Acid Calcium Phosphorus Magnesium AST ALT Alkaline Phosphatase Ammonia Troponin T Total Protein Albumin Triglycerides HDL Cholesterol Lipase Arterial Blood Glucose Arterial Blood Ionized Calcium Acetaminophen Crossmatch 03/27/21 03/27/21 03/27/21 04:15 06:37 11:21 WBC RBC Hgb Hct MCV MCH MCHC RDW Plt Count Seg Neuts % (Manual) Lymphocytes % (Manual) Monocytes % (Manual) Nucleated RBC % Seg Neutrophils # Man Lymphocytes # (Manual) Monocytes # (Manual) INR APTT D-Dimer ABG pH POC ABG pCO2 POC ABG pO2 ABG pO2 ABG HCO3 ABG O2 Saturation ABG Base Excess ABG Hemoglobin ABG Oxyhemoglobin ABG Potassium ABG Chloride ABG Glucose Oxyhemoglobin Potassium 5.3 H Chloride 94.4 L Carbon Dioxide 35 H BUN 20 H Creatinine 0.4 L Glucose 310 H POC Glucose 312 H 273 H Lactic Acid Calcium 8.3 L Phosphorus 4.60 H D Magnesium AST ALT Alkaline Phosphatase Ammonia Troponin T Total Protein Albumin Triglycerides HDL Cholesterol Lipase Arterial Blood Glucose Arterial Blood Ionized Calcium Acetaminophen Crossmatch
[2021-03-27] MEDS: fentaNYL 100 MCG/2 ML INJ IV PRN ×3 (12:50→20:13)
[2021-03-27] MEDS: ALPRAZolam 1 MG TAB PO PRN ×2 (16:25→22:00)
[2021-03-27] MEDS: INSULIN GLARGINE 100 UNITS/ML SUB-Q SCH (21:59)
[2021-03-28] MEDS: INSULIN LISPRO 100 UNIT/ML SUB-Q SCH ×4 (01:08→18:07)
[2021-03-28 05:57] LABS: Mean Corpuscular HGB Conc 27 % (30-34); Mean Corpuscular Volume 76 fl (79-97); Platelet Count 541 K/mm3 (140-440); Red Blood Count 3.46 M/mm3 (3.65-5.03)
[2021-03-28 06:09] LABS: Blood Urea Nitrogen 23 mg/dL (7-17); Calcium 9.1 mg/dL (8.4-10.2); Hemolysis Index 2
[2021-03-28 06:21] LABS: Hematocrit 26.1 % (30.3-42.9); Hemoglobin 7.1 gm/dl (10.1-14.3)
[2021-03-28] MEDS: HEPARIN 5,000 UNIT/1 ML VIAL SUB-Q SCH ×3 (06:25→21:52)
[2021-03-28] MEDS: fentaNYL DRIP Premix 2,000 MCG/100 ML BAG IV SCH (06:25)
[2021-03-28 06:33] LABS: BUN/Creatinine Ratio 58
[2021-03-28] MEDS: ARFORMOTEROL 15 MCG/2 ML NEBU IH SCH ×2 (07:47→19:13)
[2021-03-28] MEDS: BUDESONIDE 0.5 MG/2 ML NEBU IH SCH ×2 (07:47→19:13)
--- NOTE | 2021-03-28 10:23 | Progress Note ---
Assessment and Plan - Patient Problems (1) Respiratory failure Current Visit: Yes Status: Acute Plan to address problem: Patient with long history of severe, oxygen dependent COPD, presents with respiratory failure due to COPD exacerbation. Sinus tachycardia on presentation is now resolved. Continue supportive management and current treatment of COPD exacerbation and sepsis. Subjective Date of service: 03/28/21 Principal diagnosis: Atrial fibrillation with RVR, respiratory failure Interval history: Patient is awake, on the vent, shakes her head in response to any complaints. Heart rate is 75, sinus rhythm, blood pressure 127 systolic. Objective Vital Signs Temp Pulse Pulse Pulse Resp Resp BP 03/28/21 07:47 79 03/28/21 07:42 97.7 F 03/28/21 07:00 62 18 107/74 03/28/21 06:46 63 18 107/74 03/28/21 06:30 66 18 100/70 03/28/21 06:16 65 18 100/70 03/28/21 06:00 68 15 100/70 03/28/21 05:46 79 17 135/79 03/28/21 05:30 74 18 122/92 03/28/21 05:16 71 18 122/92 03/28/21 05:00 93 H 18 122/92 03/28/21 04:46 72 18 117/75 03/28/21 04:30 77 19 102/59 03/28/21 04:16 90 13 102/59 03/28/21 04:00 98.6 F 74 14 102/59 03/28/21 03:46 88 15 119/84 03/28/21 03:30 82 16 119/84 03/28/21 03:20 89 123/81 03/28/21 03:16 72 18 123/81 03/28/21 03:11 77 77 18 03/28/21 03:00 81 14 117/87 03/28/21 02:46 76 18 117/87 03/28/21 02:30 83 18 109/69 03/28/21 02:15 67 18 109/69 03/28/21 02:01 66 18 109/69 03/28/21 01:45 68 18 100/70 03/28/21 01:30 68 18 100/70 03/28/21 01:15 66 18 101/66 03/28/21 01:00 68 14 101/66 03/28/21 00:45 64 18 100/68 03/28/21 00:30 63 18 100/68 03/28/21 00:15 70 18 102/70 03/28/21 00:00 97.6 F 68 68 18 102/70 03/27/21 23:45 68 18 98/69 03/27/21 23:30 71 18 98/69 03/27/21 23:15 71 18 99/63 03/27/21 23:01 72 18 99/63 03/27/21 22:45 75 18 99/61 03/27/21 22:30 75 18 99/61 03/27/21 22:15 87 16 134/83 03/27/21 22:00 84 12 134/83 03/27/21 21:45 119 H 13 115/79 03/27/21 21:31 93 H 15 108/77 03/27/21 21:15 82 15 108/77 03/27/21 21:00 85 18 78/44 03/27/21 20:45 87 18 93/49 03/27/21 20:31 102 H 18 93/49 03/27/21 20:30 92 H 17 93/49 03/27/21 20:15 112 H 28 H 139/69 03/27/21 20:01 147 H 20 102/81 03/27/21 20:00 97.8 F 147 H 147 H 33 H 03/27/21 19:45 113 H 18 102/81 03/27/21 19:31 124 H 19 102/81 03/27/21 19:27 76 84 18 111/60 03/27/21 19:15 90 18 122/80 03/27/21 19:00 86 18 122/80 03/27/21 18:45 104 H 14 111/60 03/27/21 18:41 76 18 111/60 03/27/21 18:35 76 18 111/60 03/27/21 18:30 77 18 111/60 03/27/21 18:25 90 19 117/78 03/27/21 18:21 90 17 117/78 03/27/21 18:15 77 18 117/78 03/27/21 18:11 84 17 117/78 03/27/21 18:05 97 H 13 117/78 03/27/21 18:00 88 18 117/78 03/27/21 17:55 89 17 102/58 03/27/21 17:51 72 18 102/58 03/27/21 17:45 95 H 20 102/58 03/27/21 17:41 74 18 102/58 03/27/21 17:35 76 18 102/58 03/27/21 17:30 77 18 102/58 03/27/21 17:25 77 18 106/58 03/27/21 17:21 81 18 106/58 03/27/21 17:15 80 18 106/58 03/27/21 17:11 80 18 106/58 03/27/21 17:05 91 H 18 106/58 03/27/21 17:00 83 17 106/58 03/27/21 16:55 84 18 145/79 03/27/21 16:51 87 18 145/79 03/27/21 16:45 92 H 19 145/79 03/27/21 16:41 108 H 17 145/79 03/27/21 16:35 93 H 18 145/79 03/27/21 16:31 98.0 F 95 H 18 145/79 03/27/21 16:25 108 H 18 140/120 03/27/21 16:21 107 H 19 140/120 03/27/21 16:15 108 H 19 140/120 03/27/21 16:11 116 H 18 140/120 03/27/21 16:05 109 H 20 140/120 03/27/21 16:00 129 H 110 H 26 H 140/120 03/27/21 15:55 142 H 28 H 126/58 03/27/21 15:51 122 H 26 H 126/58 03/27/21 15:45 121 H 19 126/58 03/27/21 15:40 124 H 22 126/58 03/27/21 15:35 129 H 19 03/27/21 15:31 130 H 16 146/107 03/27/21 15:25 127 H 24 53/11 03/27/21 15:21 138 H 26 H 197/92 03/27/21 15:15 155 H 34 H 197/92 03/27/21 15:11 146 H 26 H 197/92 03/27/21 15:05 106 H 18 197/92 03/27/21 15:01 97 H 17 197/92 03/27/21 14:55 87 17 152/85 03/27/21 14:51 91 H 16 152/85 03/27/21 14:45 82 17 152/85 03/27/21 14:41 88 16 152/85 03/27/21 14:35 67 15 152/85 03/27/21 14:31 78 19 152/85 03/27/21 14:25 87 12 182/141 03/27/21 14:21 81 16 182/141 03/27/21 14:15 80 16 182/141 03/27/21 14:11 80 14 182/141 03/27/21 14:05 77 15 182/141 03/27/21 14:01 82 13 170/82 03/27/21 13:55 82 16 170/82 03/27/21 13:51 78 9 L 170/82 03/27/21 13:45 89 18 170/82 03/27/21 13:41 75 14 170/82 03/27/21 13:35 82 17 170/82 03/27/21 13:30 83 16 170/82 03/27/21 13:25 86 16 150/102 03/27/21 13:21 76 17 150/102 03/27/21 13:15 76 17 150/102 03/27/21 13:11 84 17 150/102 03/27/21 13:05 76 11 L 150/102 03/27/21 13:00 70 18 150/102 03/27/21 12:55 75 12 169/101 03/27/21 12:51 72 19 169/101 03/27/21 12:45 74 11 L 195/102 03/27/21 12:41 78 15 195/102 03/27/21 12:35 75 13 195/102 03/27/21 12:31 80 19 159/66 03/27/21 12:25 89 10 L 159/66 03/27/21 12:21 82 23 159/66 03/27/21 12:15 75 16 159/66 03/27/21 12:11 71 17 159/66 03/27/21 12:05 77 17 159/66 03/27/21 12:01 77 19 159/66 03/27/21 12:00 77 77 16 03/27/21 11:55 81 19 147/63 03/27/21 11:51 80 16 147/63 03/27/21 11:45 77 16 147/63 03/27/21 11:41 76 18 147/63 03/27/21 11:37 97.9 F 03/27/21 11:35 76 17 147/63 03/27/21 11:31 76 14 147/63 03/27/21 11:25 82 19 142/69 03/27/21 11:21 99 H 20 142/69 03/27/21 11:15 88 13 142/69 03/27/21 11:11 79 17 142/69 03/27/21 11:05 74 19 142/69 03/27/21 11:00 70 19 142/69 03/27/21 10:55 81 16 133/79 03/27/21 10:51 79 17 133/79 03/27/21 10:45 87 13 133/79 03/27/21 10:41 82 19 133/79 03/27/21 10:35 81 15 133/79 03/27/21 10:30 70 19 133/79 03/27/21 10:25 74 19 129/91 Pulse Ox 03/28/21 07:47 100 03/28/21 07:42 03/28/21 07:00 100 03/28/21 06:46 100 03/28/21 06:30 100 03/28/21 06:16 100 03/28/21 06:00 100 03/28/21 05:46 100 03/28/21 05:30 100 03/28/21 05:16 100 03/28/21 05:00 100 03/28/21 04:46 100 03/28/21 04:30 100 03/28/21 04:16 100 03/28/21 04:00 100 03/28/21 03:46 100 03/28/21 03:30 100 03/28/21 03:20 100 03/28/21 03:16 100 03/28/21 03:11 100 03/28/21 03:00 100 03/28/21 02:46 100 03/28/21 02:30 100 03/28/21 02:15 100 03/28/21 02:01 100 03/28/21 01:45 100 03/28/21 01:30 100 03/28/21 01:15 100 03/28/21 01:00 100 03/28/21 00:45 100 03/28/21 00:30 100 03/28/21 00:15 100 03/28/21 00:00 100 03/27/21 23:45 100 03/27/21 23:30 100 03/27/21 23:15 100 03/27/21 23:01 100 03/27/21 22:45 100 03/27/21 22:30 100 03/27/21 22:15 100 03/27/21 22:00 100 03/27/21 21:45 100 03/27/21 21:31 93 03/27/21 21:15 100 03/27/21 21:00 100 03/27/21 20:45 100 03/27/21 20:31 100 03/27/21 20:30 100 03/27/21 20:15 100 03/27/21 20:01 85 03/27/21 20:00 98 03/27/21 19:45 98 03/27/21 19:31 100 03/27/21 19:27 100 03/27/21 19:15 100 03/27/21 19:00 100 03/27/21 18:45 93 03/27/21 18:41 100 03/27/21 18:35 100 03/27/21 18:30 100 03/27/21 18:25 100 03/27/21 18:21 100 03/27/21 18:15 100 03/27/21 18:11 100 03/27/21 18:05 100 03/27/21 18:00 100 03/27/21 17:55 100 03/27/21 17:51 100 03/27/21 17:45 100 03/27/21 17:41 100 03/27/21 17:35 100 03/27/21 17:30 100 03/27/21 17:25 100 03/27/21 17:21 100 03/27/21 17:15 100 03/27/21 17:11 100 03/27/21 17:05 100 03/27/21 17:00 100 03/27/21 16:55 100 03/27/21 16:51 100 03/27/21 16:45 100 03/27/21 16:41 99 03/27/21 16:35 100 03/27/21 16:31 100 03/27/21 16:25 100 03/27/21 16:21 99 03/27/21 16:15 98 03/27/21 16:11 97 03/27/21 16:05 97 03/27/21 16:00 96 03/27/21 15:55 95 03/27/21 15:51 95 03/27/21 15:45 95 03/27/21 15:40 95 03/27/21 15:35 94 03/27/21 15:31 03/27/21 15:25 96 03/27/21 15:21 92 03/27/21 15:15 96 03/27/21 15:11 03/27/21 15:05 99 03/27/21 15:01 98 03/27/21 14:55 99 03/27/21 14:51 99 03/27/21 14:45 100 03/27/21 14:41 100 03/27/21 14:35 100 03/27/21 14:31 100 03/27/21 14:25 100 03/27/21 14:21 100 03/27/21 14:15 100 03/27/21 14:11 100 03/27/21 14:05 100 03/27/21 14:01 98 03/27/21 13:55 100 03/27/21 13:51 100 03/27/21 13:45 100 03/27/21 13:41 100 03/27/21 13:35 100 03/27/21 13:30 100 03/27/21 13:25 100 03/27/21 13:21 100 03/27/21 13:15 100 03/27/21 13:11 100 03/27/21 13:05 100 03/27/21 13:00 100 03/27/21 12:55 100 03/27/21 12:51 99 03/27/21 12:45 100 03/27/21 12:41 100 03/27/21 12:35 100 03/27/21 12:31 99 03/27/21 12:25 100 03/27/21 12:21 99 03/27/21 12:15 100 03/27/21 12:11 100 03/27/21 12:05 100 03/27/21 12:01 100 03/27/21 12:00 100 03/27/21 11:55 03/27/21 11:51 03/27/21 11:45 03/27/21 11:41 03/27/21 11:37 03/27/21 11:35 03/27/21 11:31 03/27/21 11:25 03/27/21 11:21 03/27/21 11:15 03/27/21 11:11 03/27/21 11:05 03/27/21 11:00 03/27/21 10:55 03/27/21 10:51 03/27/21 10:45 03/27/21 10:41 03/27/21 10:35 03/27/21 10:30 03/27/21 10:25 100 - Physical Examination General: No Apparent Distress, Other (Intubated, on the vent) Neck: Positive: neck supple Cardiac: Positive: Reg Rate and Rhythm Lungs: Positive: Decreased Breath Sounds Neuro: Positive: Grossly Intact, Other (Intubated, on the vent) Abdomen: Positive: Soft Skin: Positive: Clear Extremities: Present: normal - Labs and Meds CBC 03/28/21 Range/Units 04:00 WBC 27.1 H (4.5-11.0) K/mm3 RBC 3.46 L (3.65-5.03) M/mm3 Hgb 7.1 L (10.1-14.3) gm/dl Hct 26.1 L (30.3-42.9) % Plt Count 541 H (140-440) K/mm3 Comprehensive Metabolic Panel 03/28/21 Range/Units 04:00 Sodium 143 (137-145) mmol/L Potassium 4.7 (3.6-5.0) mmol/L Chloride 95.7 L (98-107) mmol/L Carbon Dioxide 36 H (22-30) mmol/L BUN 23 H (7-17) mg/dL Creatinine 0.4 L (0.6-1.2) mg/dL Glucose 295 H (65-100) mg/dL Calcium 9.1 (8.4-10.2) mg/dL
[2021-03-28] MEDS: SENNOSIDES/DOCUSATE SODIUM 8.6/50 MG TAB FEEDTUBE SCH ×2 (10:52→21:52)
[2021-03-28] MEDS: busPIRone 5 MG TAB PO SCH ×2 (10:52→21:52)
[2021-03-28] MEDS: methylPREDNISolone Sod Succinate 40 MG/1 ML INJ IV SCH (10:52)
[2021-03-28] MEDS: FAMOTIDINE 20 MG TAB FEEDTUBE SCH ×2 (10:52→21:50)
[2021-03-28] MEDS: DOCUSATE SODIUM 100 MG/10 ML ORAL LIQD PO SCH ×2 (10:52→21:52)
[2021-03-28] MEDS: ALPRAZolam 1 MG TAB PO PRN ×2 (10:52→18:21)
[2021-03-28] MEDS: METOPROLOL TARTRATE 25 MG TAB PO SCH ×2 (10:56→21:55)
--- NOTE | 2021-03-28 11:00 | Progress Note ---
Assessment and Plan Assessment and plan: This is a 50-year-old female with COPD with oxygen dependence, DM, severe anxiety, GERD, HLD, HTN and PAGE admitted with SVT and hypertensive urgency. Hospital Course to Date: This is a 60-year-old female with COPD with oxygen dependence currently with palliative care, DM, former nicotine abuse, severe anxiety, GERD, HLD, HTN and PAGE presented to emergency department on 03/17 via EMS with complaints of shortness of breath. On arrival of EMS patient was found to be in SVT with a heart rate of about 200 and blood pressure to be quite elevated with systolic in 200s. She was given 6 mg of adenosine without significant changes subsequently given 12 mg of adenosine with improvement of her heart rate. Upon arrival to the emergency department patient was found to be in atrial fibrillation with RVR and dyspneic. Work-up in the emergency department revealed leukocytosis, lactic acidosis, transaminitis, hypoalbuminemia and a troponin leak. CXR, CT a chest and CT head were unremarkable. Patient was admitted to the hospitalist service with consults to [facility] and cardiology for further work-up of acute on chronic respiratory failure, SVT and hypertensive urgency. 03/18/2021: Patient is intubated and on vent support, Patient is in sinus tachycardia 03/19: COVID-19 PCR negative, remains on ventilatory support, Versed drip changed to propofol. No acute events reported overnight. Tracheal aspirate with few gram-positive Cocci. This afternoon, patient went in to the 150s, giving 500 mL NS bolus and fentanyl push to see if it pain related. If persists then will order prn Ativan per Dr. Gage recommendation. 03/20: Restarted on home metoprolol and abdominal ultrasound showed right hydronephrosis. Abd US shows right hydroureteronephrosis and will obtain a de dicated renal US. She seems to more comfortable on propofol and fentanyl 03/21: Patient's FiO2 had to be decreased overnight due to hypoxia and tachycardia. Hyperkalemia noted and given Kayexalate. 1 unit PRBC for hemoglobin 6.8. [facility] plans to extubate tomorrow. Increase in Lantus. 03/22: Transfuse one unit prbc, failed SBT in the AM d/t hypertension. [facility] extubated the patient but she was reintubated within [address] head ordered and pending read. Given kionex x2 for hyperkalemia 03/23: This morning patient was only on Precedex drip and overnight she had agitation, hypertension and tachycardia. RN instructed to place fentanyl drip. Increase in Lantus for better glucose control. Will remove [place] today. 03/24/2021: no acute events reported overnight. Patient remains intubated and is currently on fentanyl and Precedex. Increase in Lantus due to hyperglycemia. 03/25: no acute events overnight. increase in lantus and decreased steroids today. 03/26: Remains on the vent. Failed SAT/SBT trials this am due to increased HR, in the 150s. Hyperkalemic this am s/p X1 dose of kayaxalate, repeat BMP ordered. Fever overnight with leukocytosis, patient is on steroids, will panculture for now, hold on IV ABx for now 03/27: Patient failed SBT trial this am, HR increased in the 150s, most likely due to her severe anxiety. Patient is back on low dose sedation, continue PRN Xanax. Hyperkalemia still slightly high, X1dose of kayaxalate ordered, repeat lab in the am. 03/28: LIDIA overnight. Remains on precedex and fentanyl gtt, with PRN Xanax for anxiety. Plan for possible SBT again today, per CCM if still not tolerating SBT patient will eventually need a trach Assessment and Plan #Neuro:Severe Anxiety #H/o Anxiety and depression -On low sedation with precedex and fentanyl gtt, RASS 0 to -1 -Tritrate sedation for a RASS goal 0 to -1 -Continue Buspar -Cymbalta on hold, can not be crush -Xanax added PRN for anxiety -Avoid delirium -PRN analgesia for CPOT greater than 3 -Maintenance of sleep-wake cycle #Cardio: Hypertensive emergency #A. fib with RVR #SVT-resolved -Presented with high BP and SVT, HR in 200 -s/p X2 doses of adenosine -Echocardiogram 10/2020 showed EF of 50 to 55% -Cardiology consulted, appreciate recommendations -Continue metoprolol BID -Continue AC- Heparin SubQ -Continue blood pressure monitor per protocol -Maintain MAP above 65 #Resp:Acute on chronic respiratory failure #H/o COPD and PAGE -Intubated on 03/17 , extubated and reintubated on 03/22 -Vent Setting:CMV- 40%,6,18,450 -AM ABG pending -CCM consulted, appreciate recommendations -Continue IV Steroids and Nebs per [facility] -VAP bundle addressed -Aspiration precaution HOB above 30 -Daily SBT and SAT trials as tolerated -Daily ABG and CXR per [facility] -Continue SPO2 monitoring for SPO2 goal above 92% #GI: Transaminitis-improving -Presented with elevated LFTs -LFTs downtrending, continue to trend LFts -Continue enteral nutrition -NTR on consulted -Continue PPI -Continue BR #:Hyperkalemia-improved -K normalized, renal function remains stable -Continue to Trend BMP -Strict intake and output -Avoid nephrotoxic medications; Renally dose medications -Monitor and replace electrolytes as needed #Heme:Microcytic anemia -s/p 1 unit PRBCs -No s/s of any active bleeding -Continue to Trend CBC -Transfuse for hbg <7 -SCDs to BLE while in bed -Continue AC- Heparin SubQ #ID:Leukocytosis #Possible Bilateral Pneumonia -Imagings with bibasilar opacities and Pleural effusion -02/25 tracheal aspirate with few gram-positive cocci -Patient completed IV Abx course -Afebrile overnight -WBCs is trending, however patient is on steroids -Blood cultures and sputum culture pending -Hold on IV ABx for now -Trend WBC and fever curve -Continue to F/U on B.cult -Daily CBC monitor -Consider ID consult if febrile or/and if leukocytosis persist #Endo: Hyperglycemia -Continue SSI q6hrs -Basal lantus increased -Avoid hypoglycemia The high probability of a clinically significant, sudden or life threatening deterioration of the [pulm/cv/Endo] system(s) required my full and direct attention, intervention and personal management. The aggregate critical care time was [60] minutes. This time is in addition to time spent performing reported procedures but includes the following: [x] Data Review and interpretation [x] Patient assessment and monitoring of vital signs [x] Documentation [x] Medication orders and management Disposition Plan: ICU Total Time Spent with Patient (Minutes): 60 History Interval history: Patient seen and examined at the bedside. Intubated and sedated, on precedex and Fentanyl gtt RASS 0 to -1. Per RN, patient with increased anxiety/agitation overnight, sedation were increased. But more calm this am, sedation was weaned back down Hospitalist Physical - Constitutional Vitals: Temp Pulse Resp BP Pulse Ox 97.7 F 87 18 110/71 100 03/28/21 07:42 03/28/21 10:56 03/28/21 07:00 03/28/21 10:56 03/28/21 07:47 General appearance: Present: no acute distress, other (Intubated) - EENT Eyes: Present: PERRL ENT: hearing intact - Neck Neck: Present: normal ROM - Respiratory Respiratory effort: normal Respiratory: bilateral: rhonchi - Cardiovascular Rhythm: regular Heart Sounds: Present: S1 & S2 - Extremities Extremities: no ischemia, pulses intact, pulses symmetrical Extremity abnormal: edema - Peripheral Assessment Generalized Edema Type: Non-pitting Edema Degree: 1+ Capillary Refill: < 3 seconds Skin Temperature: Warm Peripheral Pulses: within normal limits - Abdominal General gastrointestinal: soft, non-tender, normal bowel sounds - Integumentary Integumentary: Present: warm, dry - Psychiatric Psychiatric: appropriate mood/affect, cooperative - Neurologic Neurologic: moves all extremities, other (RASS 0 to -1, following commands) - Allied Health Allied health notes reviewed: nursing HEART Score - HEART Score Troponin: Troponin T 0.015 ng/mL (0.00-0.029) 03/19/21 12:00 Results - Labs CBC & Chem 7: 03/28/21 04:00 03/28/21 04:00 Labs: Laboratory Last Values WBC 27.1 K/mm3 (4.5-11.0) H 03/28/21 04:00 RBC 3.46 M/mm3 (3.65-5.03) L 03/28/21 04:00 Hgb 7.1 gm/dl (10.1-14.3) L 03/28/21 04:00 Hct 26.1 % (30.3-42.9) L 03/28/21 04:00 MCV 76 fl (79-97) L 03/28/21 04:00 MCH 20 pg (28-32) L 03/28/21 04:00 MCHC 27 % (30-34) L 03/28/21 04:00 RDW 24.0 % (13.2-15.2) H 03/28/21 04:00 Plt Count 541 K/mm3 (140-440) H 03/28/21 04:00 [place] % (Auto) Bag Hanger 03/24/21 08:03 Add Manual Diff Complete 03/26/21 05:35 Total Counted 100 03/26/21 05:35 Seg Neuts % (Manual) 72.0 % (40.0-70.0) H 03/26/21 05:35 Band Neutrophils % 5.0 % 03/26/21 05:35 Lymphocytes % (Manual) 6.0 % (13.4-35.0) L 03/26/21 05:35 Reactive Lymphs % (Man) 5.0 % 03/19/21 04:59 Monocytes % (Manual) 8.0 % (0.0-7.3) H 03/26/21 05:35 Metamyelocytes % 3.0 % 03/26/21 05:35 Myelocytes % 5.0 % 03/26/21 05:35 Promyelocytes % 1.0 % 03/26/21 05:35 Nucleated RBC % Not Reportable 03/26/21 05:35 Seg Neutrophils # Man 14.4 K/mm3 (1.8-7.7) H 03/26/21 05:35 Band Neutrophils # 1.0 K/mm3 03/26/21 05:35 Lymphocytes # (Manual) 1.2 K/mm3 (1.2-5.4) 03/26/21 05:35 Abs React Lymphs (Man) 0.0 K/mm3 03/26/21 05:35 Monocytes # (Manual) 1.6 K/mm3 (0.0-0.8) H 03/26/21 05:35 Eosinophils # (Manual) 0.0 K/mm3 (0.0-0.4) 03/26/21 05:35 Basophils # (Manual) 0.0 K/mm3 (0.0-0.1) 03/26/21 05:35 Metamyelocytes # 0.6 K/mm3 03/26/21 05:35 Myelocytes # 1.0 K/mm3 03/26/21 05:35 Promyelocytes # 0.2 K/mm3 03/26/21 05:35 Blast Cells # 0.0 K/mm3 03/26/21 05:35 WBC Morphology Not Reportable 03/26/21 05:35 Hypersegmented Neuts Not Reportable 03/26/21 05:35 Hyposegmented Neuts Not Reportable 03/26/21 05:35 Hypogranular Neuts Not Reportable 03/26/21 05:35 Smudge Cells Not Reportable 03/26/21 05:35 Toxic Granulation Not Reportable 03/26/21 05:35 Toxic Vacuolation Not Reportable 03/26/21 05:35 Dohle Bodies Not Reportable 03/26/21 05:35 Pelger-Huet Anomaly Not Reportable 03/26/21 05:35 Florentino Rods Not Reportable 03/26/21 05:35 Platelet Estimate Consistent w auto 03/26/21 05:35 Clumped Platelets Not Reportable 03/26/21 05:35 Plt Clumps, EDTA Not Reportable 03/26/21 05:35 Large Platelets 1+ 03/26/21 05:35 Giant Platelets Not Reportable 03/26/21 05:35 Platelet Satelliting Not Reportable 03/26/21 05:35 Plt Morphology Comment Not Reportable 03/26/21 05:35 RBC Morphology Not Reportable 03/26/21 05:35 Dimorphic RBCs Not Reportable 03/26/21 05:35 Polychromasia 1+ 03/26/21 05:35 Hypochromasia 2+ 03/26/21 05:35 Poikilocytosis 1+ 03/26/21 05:35 Anisocytosis 2+ 03/26/21 05:35 Microcytosis Not Reportable 03/26/21 05:35 Macrocytosis Not Reportable 03/26/21 05:35 Spherocytes Not Reportable 03/26/21 05:35 Pappenheimer Bodies Not Reportable 03/26/21 05:35 Sickle Cells Not Reportable 03/26/21 05:35 Target Cells 1+ 03/26/21 05:35 Tear Drop Cells 1+ 03/26/21 05:35 Ovalocytes Not Reportable 03/26/21 05:35 Stomatocytes 1+ 03/26/21 05:35 Helmet Cells Not Reportable 03/26/21 05:35 [place] Bodies Not Reportable 03/26/21 05:35 [place] Rings Not Reportable 03/26/21 05:35 [place] Cells Not Reportable 03/26/21 05:35 Bite Cells Not Reportable 03/26/21 05:35 Crenated Cell Not Reportable 03/26/21 05:35 Elliptocytes Not Reportable 03/26/21 05:35 Acanthocytes (Spur) Not Reportable 03/26/21 05:35 Rouleaux Not Reportable 03/26/21 05:35 Hemoglobin C Crystals Not Reportable 03/26/21 05:35 Schistocytes 1+ 03/26/21 05:35 Malaria parasites Not Reportable 03/26/21 05:35 [place] Bodies Not Reportable 03/26/21 05:35 Hem Pathologist Commnt No 03/26/21 05:35 PT 12.6 Sec. (12.2-14.9) 03/17/21 17:37 INR 0.85 (0.87-1.13) L 03/17/21 17:37 APTT 23.3 Sec. (24.2-36.6) L 03/17/21 17:37 D-Dimer 947.92 ng/mlDDU (0-234) H 03/17/21 17:37 ABG pH 7.477 (7.320-7.450) H 03/24/21 08:57 POC ABG pCO2 56.9 mmHg (32.0-48.0) H 03/24/21 08:57 ABG pCO2 72.7 mm Hg 03/23/21 04:50 POC ABG pO2 100.6 mmHg (83-108) 03/24/21 08:57 ABG pO2 70.7 mm Hg (80.0-90.0) L 03/23/21 04:50 POC ABG HCO3 41.1 03/24/21 08:57 ABG HCO3 41.7 mmol/L (20.0-26.0) H 03/23/21 04:50 ABG O2 Saturation 98.3 (0-100) 03/24/21 08:57 ABG O2 Content 7.8 (0.0-44) 03/23/21 04:50 POC ABG Base Excess 15.8 03/24/21 08:57 ABG Base Excess 15.2 mmol/L (-2.0-3.0) H 03/23/21 04:50 ABG Hemoglobin 8.0 (12.0-17.5) L 03/24/21 08:57 ABG Oxyhemoglobin 96.8 (94-98) 03/24/21 08:57 ABG Carboxyhemoglobin 1.7 % (0.0-5.0) 03/23/21 04:50 ABG Methemoglobin 0.3 (0.0-1.5) 03/24/21 08:57 ABG Sodium 139.1 mmol/L (136.0-145.0) 03/24/21 08:57 ABG Potassium 3.9 mmol/L (3.40-4.50) 03/24/21 08:57 ABG Chloride 93.0 mmol/L (98-107) L 03/24/21 08:57 ABG Glucose 328 mg/dL (65-95) H 03/24/21 08:57 Oxyhemoglobin 96.9 % (95.0-99.0) 03/23/21 04:50 Carboxyhemoglobin 1.2 (0.5-1.5) 03/24/21 08:57 FiO2 40 % 03/23/21 04:50 FiO2 % 40 03/24/21 08:57 Sodium 143 mmol/L (137-145) 03/28/21 04:00 Potassium 4.7 mmol/L (3.6-5.0) 03/28/21 04:00 Chloride 95.7 mmol/L (98-107) L 03/28/21 04:00 Carbon Dioxide 36 mmol/L (22-30) H 03/28/21 04:00 Anion Gap 16 mmol/L 03/28/21 04:00 BUN 23 mg/dL (7-17) H 03/28/21 04:00 Creatinine 0.4 mg/dL (0.6-1.2) L 03/28/21 04:00 Estimated GFR > 60 ml/min 03/28/21 04:00 BUN/Creatinine Ratio 58 % 03/28/21 04:00 Glucose 295 mg/dL (65-100) H 03/28/21 04:00 POC Glucose 279 mg/dL (70-105) H 03/28/21 05:41 Lactic Acid 4.00 mmol/L (0.7-2.0) H* 03/17/21 23:36 Calcium 9.1 mg/dL (8.4-10.2) 03/28/21 04:00 Phosphorus 4.20 mg/dL (2.5-4.5) 03/28/21 04:00 Magnesium 2.20 mg/dL (1.7-2.3) 03/28/21 04:00 Total Bilirubin 0.30 mg/dL (0.1-1.2) 03/26/21 05:35 Direct Bilirubin < 0.2 mg/dL (0-0.2) 03/19/21 12:00 Indirect Bilirubin 0.1 mg/dL 03/19/21 12:00 AST 35 units/L (5-40) 03/26/21 05:35 ALT 169 units/L (7-56) H 03/26/21 05:35 Alkaline Phosphatase 138 units/L (35-129) H 03/26/21 05:35 Ammonia 26.0 umol/L (25-60) 03/19/21 12:00 Troponin T 0.015 ng/mL (0.00-0.029) 03/19/21 12:00 NT-Pro-B Natriuret Pep 576.0 pg/mL (0-900) 03/17/21 17:36 Total Protein 5.5 g/dL (6.3-8.2) L 03/26/21 05:35 Albumin 3.2 g/dL (3.9-5) L 03/26/21 05:35 Albumin/Globulin Ratio 1.4 % 03/26/21 05:35 Triglycerides 189 mg/dL (2-149) H 03/22/21 04:39 Cholesterol 191 mg/dL (50-199) 03/17/21 17:36 LDL Cholesterol Direct 80 mg/dL (50-130) 03/17/21 17:36 HDL Cholesterol 73 mg/dL (40-59) H 03/17/21 17:36 Cholesterol/HDL Ratio 2.61 % 03/17/21 17:36 Amylase 78 units/L (27-131) 03/19/21 Unknown Lipase 12 units/L (13-60) L 03/19/21 Unknown TSH 3.510 mlU/mL (0.270-4.200) 03/17/21 22:57 Arterial Blood Glucose 328 mg/dL (65-95) H 03/24/21 08:57 Arterial Blood Ionized Calcium 4.5 mg/dL (4.6-5.3) L 01/01/22 08:57 Urine Color [place] (Yellow) 03/17/21 19:42 Urine Turbidity Slightly-cloudy (Clear) 03/17/21 19:42 Urine pH 7.0 (5.0-7.0) 03/17/21 19:42 Ur Specific [place] 1.015 (1.003-1.030) 03/17/21 19:42 Urine Protein 100 mg/dl mg/dL (Negative) 03/17/21 19:42 Urine Glucose (UA) Neg mg/dL (Negative) 03/17/21 19:42 Urine Ketones 20 mg/dL (Negative) 03/17/21 19:42 Urine Blood Sm (Negative) 03/17/21 19:42 Urine Nitrite Neg (Negative) 03/17/21 19:42 Urine Bilirubin Neg (Negative) 03/17/21 19:42 Urine Urobilinogen 2.0 mg/dL (<2.0) 03/17/21 19:42 Ur Leukocyte Esterase Neg (Negative) 03/17/21 19:42 Urine WBC (Auto) 4.0 /HPF (0.0-6.0) 03/17/21 19:42 Urine RBC (Auto) 6.0 /HPF (0.0-6.0) 03/17/21 19:42 U Epithel Cells (Auto) 5.0 /HPF (0-13.0) 03/17/21 19:42 Urine Bacteria (Auto) 1+ /HPF (Negative) 03/17/21 19:42 Urine Mucus 1+ /HPF 03/17/21 19:42 Urine Yeast (Budding) Few /HPF 03/17/21 19:42 Acetaminophen 5.0 ug/mL (10.0-30.0) L 03/18/21 23:07 Coronavirus (PCR) Negative (Negative) 03/19/21 Unknown Blood Type A POSITIVE 03/21/21 14:08 Antibody Screen Negative 03/21/21 14:08 Crossmatch See Detail 03/21/21 14:08 Microbiology: Microbiology 03/26/21 08:06 Peripheral/Venous Blood Culture - Preliminary NO GROWTH AFTER 48 HOURS 03/26/21 08:06 Peripheral/Venous Blood Culture - Preliminary NO GROWTH AFTER 48 HOURS 03/26/21 Unknown Tracheal Aspirate Sputum Culture - Preliminary [place]/IV: Voiding Method External Female Catheter Active Medications - Current Medications Current Medications: Generic Name Dose Route Start Last Admin Trade Name Freq PRN Reason Stop Dose Admin Acetaminophen 650 mg 03/18/21 00:05 Acetaminophen 325 Mg Tab PO Q6H PRN Pain MILD(1-3)/Fever >100.5/TOVAR Albuterol 2.5 mg 03/22/21 08:00 Albuterol 2.5 Mg/3 Ml Nebu IH Q6H PRN Wheezing Alprazolam 1 mg 03/26/21 10:53 03/28/21 10:52 Alprazolam 1 Mg Tab PO 1 mg Q8H PRN Administration AGITATION Lipase/Protease/Amylase 1 each 03/19/21 18:16 Lipase 10,500/Protease 25,000/Amylase 43,750 (Units) Dr Newman FEEDTUBE PRN PRN For Clogged Feeding Tube Arformoterol Tartrate 15 mcg 03/24/21 11:00 03/28/21 07:47 Arformoterol 15 Mcg/2 Ml Nebu IH 15 mcg Q12HRT BUTCH Administration Atorvastatin Calcium 10 mg 03/19/21 22:00 03/27/21 21:59 Atorvastatin 10 Mg Tab PO 10 mg QHS BUTCH Administration Budesonide 0.5 mg 03/24/21 11:00 03/28/21 07:47 Budesonide 0.5 Mg/2 Ml Nebu IH 0.5 mg Q12HRT BUTCH Administration Buspirone HCl 5 mg 03/25/21 14:00 03/28/21 10:52 Buspirone 5 Mg Tab PO 5 mg BID BUTCH Administration Dextrose 0 ml 03/17/21 23:58 Dextrose 50% In Water (25gm) 50 Ml Syringe IV Q30MIN PRN Hypoglycemia Protocol Docusate Sodium 100 mg 03/23/21 10:00 03/28/21 10:52 Docusate Sodium 100 Mg/10 Ml Oral Liqd PO 100 mg BID BUTCH Administration Famotidine 20 mg 03/20/21 22:00 03/28/21 10:52 Famotidine 20 Mg Tab FEEDTUBE 20 mg BID BUTCH Administration Fentanyl 50 mcg 03/26/21 10:08 03/27/21 20:13 Fentanyl 100 Mcg/2 Ml Inj IV 50 mcg Q2H PRN Administration Pain, Moderate (4-6) Heparin Sodium (Porcine) 5,000 unit 03/18/21 06:00 03/28/21 06:25 Heparin 5,000 Unit/1 Ml Vial SUB-Q 5,000 unit Q8HR BUTCH Administration Hydrophilic Ointment 1 applic 03/17/21 17:35 Lip Therapy Vaseline TP Q2HR PRN Dry Lips Dexmedetomidine HCl 400 mcg/ 104 mls @ 4.306 mls/hr 03/21/21 13:00 03/28/21 10:53 Sodium Chloride IV 0.7 mcg/kg/hr TITRATE BUTCH 15.07 mls/hr Titration Protocol 0.2 MCG/KG/HR Fentanyl Citrate 2,000 mcg in 100 mls @ 4.14 mls/hr 03/22/21 15:00 03/28/21 10:53 Fentanyl Drip Premix IV 1 mcg/kg/hr TITR BUTCH 4.14 mls/hr Titration Protocol 1 MCG/KG/HR Insulin Glargine 30 units 03/26/21 22:00 03/27/21 21:59 Insulin Glargine 100 Units/Ml SUB-Q 30 units QHS BUTCH Administration Insulin Human Lispro 0 unit 03/19/21 12:00 03/28/21 06:25 Insulin Lispro 100 Unit/Ml SUB-Q 6 unit Q6HR BUTCH Administration Protocol Magnesium Hydroxide 30 ml 03/18/21 00:05 03/24/21 09:36 Magnesium Hydroxide (Mom) Oral Liqd Udc PO 30 ml Q4H PRN Administration Constipation Methylprednisolone Sodium Succinate 40 mg 03/28/21 10:00 03/28/21 10:52 Methylprednisolone Sod Succinate 40 Mg/1 Ml Inj IV 40 mg Q24HR BUTCH Administration Metoprolol Tartrate 25 mg 03/20/21 22:00 03/28/21 10:56 Metoprolol Tartrate 25 Mg Tab PO 25 mg BID BUTCH Administration Morphine Sulfate 2 mg 03/18/21 00:05 Morphine 2 Mg/1 Ml Inj IV Q4H PRN Pain, Moderate (4-6) Morphine Sulfate 4 mg 03/18/21 00:05 Morphine 4 Mg/1 Ml Inj IV Q4H PRN Pain , Severe (7-10) Multi-Ingred Cream/Lotion/Oil/Oint 1 applic 03/17/21 17:35 Mineral Oil/Petrolatum, White Ophth Oint 3.5 Gm OU Q4HR PRN Dry Eye(s) Senna/Docusate Sodium 1 tab 03/17/21 22:00 03/28/21 10:52 Sennosides/Docusate Sodium 8.6/50 Mg Tab FEEDTUBE 1 tab BID BUTCH Administration Simple Syrup 15 ml 03/19/21 18:16 Simple Syrup 15 Ml FEEDTUBE PRN PRN Hypoglycemia Simple Syrup 30 ml 03/19/21 18:16 Simple Syrup 15 Ml FEEDTUBE PRN PRN Hypoglycemia Sodium Bicarbonate 325 mg 03/19/21 18:16 Sodium Bicarbonate 325 Mg Tab FEEDTUBE PRN PRN For Clogged Feeding Tube Sodium Chloride 10 ml 03/18/21 10:00 03/28/21 10:52 Sodium Chloride 0.9% 10 Ml Flush Syringe IV 10 ml BID BUTCH Administration Sodium Chloride 10 ml 03/17/21 23:58 03/22/21 23:20 Sodium Chloride 0.9% 10 Ml Flush Syringe IV 10 ml PRN PRN Administration LINE FLUSH Nutrition/Malnutrition Assess - Dietary Evaluation Nutrition/Malnutrition Findings: Nutrition Notes Start: 03/18/21 09:46 Freq: Status: Active Protocol: Document 03/23/21 18:25 PAM (Rec: 03/23/21 18:30 PAM [id number]) Nutrition Notes Initial or Follow up Brief Note Current Diet TF-Promote @ 70 ml/hr (since D 03/19). Weight change and time frame No body weight change reported . Subjective/Other Information RD consult for TF tolerance. TF continues as prescribed. Percent of energy/protein needs met: Prescribed Promote @ 70 ml/hr provides for energy/protein needs (1,680 Kcal/105 g) during LOS. #1 Nutrition Diagnosis Inadequate oral intake Diagnosis Progress(for reassessment Continues documentation) Nutrition Intervention Nutrition Support: Continue Promote @ 70 ml/hr. Flush: 50 ml water Q 4 hr. Goal #1 Provide at least 75% of energy /protein needs through Enteral Feeding during LOS. Follow-Up By: 03/30/21 Additional Comments Continue monitoring TF tolerance, and BM.
--- NOTE | 2021-03-28 14:26 | Progress Note ---
Assessment and Plan 60 y/o female with acute on chronic respiratory failure, SVT and HTN likely all related to anxiety and stress 03/28/20: Continue PSV but she isnt ready for extubation today. Not able to tolerates PSV on yesterday so today is first real test. Dropped steroids to daily starting today. UOP is stable, but she is grossly positive. If oxygen requirement increases, check CXR and may need to consider lasix. Continue PSV for as long as possible today but definitely rest overnight. Guarded prognosis. May eventually need trach. 03/27/21: Monitor renal function and urine output closely. Not sure why K continues to be elevated despite daily correction therapy. Attempt PSV off fent but can continue precedex. Will see how patient looks tomorrow but still may not be a candidate for extubation. Drop steroids to daily starting tomorrow. 03/26/21: Continue daily PSV trials. Agree with my partner as I would like another trial of routine extubation before committing to trach. Discussed with family and patient at bedside this am. Continue solumedrol 40q12. IMS restarted buspar. WIll have psych see and evaluate to help with anxiety and depression once extubated. Guarded prognosis. 03/22/21: Please see event note for details. Planned to extubate today and wean steroids. 03/21/21: Echo given continued tachycardia despite adequate oxygenation. Can drop steroids to 40q8. 03/19/21: Continue sedation. Wean FiO2 for sats >88%. consider weaning steroid tomorrow. Follow up RUQ and trend LFT's 1. Wean Versed and place on Diprovan drip 2. Will give Fent 100 IV x1 now and order drip if needed for pain 3. Spoke with over the phone to get more history. Sounds like a panic attack not aborted by xanax therapy. Did check Tylenol level as patient has been in pain from fall 4. Elevated LFT's former drinker but confirms she has not been drinking. Ordered RUQ ultrasound and need to repeat LFT's tomorrow 5. Reviewed cards note, and they do not want to treat tachycardia or elevated bp, likely needs more sedation Guarded prognosis CCT 31 minutes. Subjective Date of service: 03/28/21 Principal diagnosis: Atrial fibrillation with RVR, respiratory failure Interval history: Awake and alert, on vent tolerating PSV at 12/6. Attempted to write me a note became frustrated and sats dropped so I asked her to relax, sats came right back up. No fever. Sugars are better. Objective Vital Signs - 12hr 03/28/21 03/28/21 03/28/21 02:30 02:46 03:00 Temperature Pulse Rate 83 76 81 Pulse Rate [ Bilateral] Pulse Rate [ From Monitor] Respiratory 18 18 14 Rate Respiratory Rate [Bilateral ] Blood Pressure 109/69 117/87 117/87 O2 Sat by Pulse 100 100 100 Oximetry 03/28/21 03/28/21 03/28/21 03:11 03:16 03:20 Temperature Pulse Rate 77 72 89 Pulse Rate [ Bilateral] Pulse Rate [ 77 From Monitor] Respiratory 18 18 Rate Respiratory Rate [Bilateral ] Blood Pressure 123/81 123/81 O2 Sat by Pulse 100 100 100 Oximetry 03/28/21 03/28/21 03/28/21 03:30 03:46 04:00 Temperature 98.6 F Pulse Rate 82 88 74 Pulse Rate [ Bilateral] Pulse Rate [ From Monitor] Respiratory 16 15 14 Rate Respiratory Rate [Bilateral ] Blood Pressure 119/84 119/84 102/59 O2 Sat by Pulse 100 100 100 Oximetry 03/28/21 03/28/21 03/28/21 04:16 04:30 04:46 Temperature Pulse Rate 90 77 72 Pulse Rate [ Bilateral] Pulse Rate [ From Monitor] Respiratory 13 19 18 Rate Respiratory Rate [Bilateral ] Blood Pressure 102/59 102/59 117/75 O2 Sat by Pulse 100 100 100 Oximetry 03/28/21 03/28/21 03/28/21 05:00 05:16 05:30 Temperature Pulse Rate 93 H 71 74 Pulse Rate [ Bilateral] Pulse Rate [ From Monitor] Respiratory 18 18 18 Rate Respiratory Rate [Bilateral ] Blood Pressure 122/92 122/92 122/92 O2 Sat by Pulse 100 100 100 Oximetry 03/28/21 03/28/21 03/28/21 05:46 06:00 06:16 Temperature Pulse Rate 79 68 65 Pulse Rate [ Bilateral] Pulse Rate [ From Monitor] Respiratory 17 15 18 Rate Respiratory Rate [Bilateral ] Blood Pressure 135/79 100/70 100/70 O2 Sat by Pulse 100 100 100 Oximetry 03/28/21 03/28/21 03/28/21 06:30 06:46 07:00 Temperature Pulse Rate 66 63 62 Pulse Rate [ Bilateral] Pulse Rate [ From Monitor] Respiratory 18 18 18 Rate Respiratory Rate [Bilateral ] Blood Pressure 100/70 107/74 107/74 O2 Sat by Pulse 100 100 100 Oximetry 03/28/21 03/28/21 03/28/21 07:16 07:30 07:42 Temperature 97.7 F Pulse Rate 62 92 H Pulse Rate [ Bilateral] Pulse Rate [ From Monitor] Respiratory 18 14 Rate Respiratory Rate [Bilateral ] Blood Pressure 114/80 114/80 O2 Sat by Pulse 100 100 Oximetry 03/28/21 03/28/21 03/28/21 07:46 07:47 08:00 Temperature Pulse Rate 67 79 85 Pulse Rate [ 73 Bilateral] Pulse Rate [ 72 From Monitor] Respiratory 18 18 Rate Respiratory 18 Rate [Bilateral ] Blood Pressure 114/80 114/80 O2 Sat by Pulse 100 100 100 Oximetry 03/28/21 03/28/21 03/28/21 08:16 08:30 08:46 Temperature Pulse Rate 70 67 71 Pulse Rate [ Bilateral] Pulse Rate [ From Monitor] Respiratory 18 18 17 Rate Respiratory Rate [Bilateral ] Blood Pressure 124/84 124/84 110/68 O2 Sat by Pulse 100 100 100 Oximetry 03/28/21 03/28/21 03/28/21 09:00 09:16 09:30 Temperature Pulse Rate 68 73 74 Pulse Rate [ Bilateral] Pulse Rate [ From Monitor] Respiratory 18 19 13 Rate Respiratory Rate [Bilateral ] Blood Pressure 110/68 115/75 117/85 O2 Sat by Pulse 100 100 100 Oximetry 03/28/21 03/28/21 03/28/21 09:46 10:00 10:16 Temperature Pulse Rate 73 79 65 Pulse Rate [ Bilateral] Pulse Rate [ From Monitor] Respiratory 18 18 18 Rate Respiratory Rate [Bilateral ] Blood Pressure 117/85 117/85 110/63 O2 Sat by Pulse 100 100 100 Oximetry 03/28/21 03/28/21 03/28/21 10:30 10:46 10:56 Temperature Pulse Rate 65 68 87 Pulse Rate [ Bilateral] Pulse Rate [ From Monitor] Respiratory 18 16 Rate Respiratory Rate [Bilateral ] Blood Pressure 100/65 100/65 110/71 O2 Sat by Pulse 100 100 Oximetry 03/28/21 03/28/21 03/28/21 11:00 11:16 11:30 Temperature Pulse Rate 72 65 70 Pulse Rate [ Bilateral] Pulse Rate [ From Monitor] Respiratory 16 14 11 L Rate Respiratory Rate [Bilateral ] Blood Pressure 110/71 137/85 139/77 O2 Sat by Pulse 100 100 100 Oximetry 03/28/21 03/28/21 03/28/21 11:46 12:00 12:09 Temperature 97.6 F Pulse Rate 72 67 Pulse Rate [ Bilateral] Pulse Rate [ From Monitor] Respiratory 10 L 12 Rate Respiratory Rate [Bilateral ] Blood Pressure 139/77 134/68 O2 Sat by Pulse 100 100 Oximetry 03/28/21 03/28/21 03/28/21 12:16 12:30 12:46 Temperature Pulse Rate 77 68 77 Pulse Rate [ Bilateral] Pulse Rate [ From Monitor] Respiratory 11 L 14 15 Rate Respiratory Rate [Bilateral ] Blood Pressure 134/68 146/74 146/74 O2 Sat by Pulse 100 100 100 Oximetry 03/28/21 03/28/21 13:00 13:16 Temperature Pulse Rate 73 80 Pulse Rate [ Bilateral] Pulse Rate [ From Monitor] Respiratory 15 20 Rate Respiratory Rate [Bilateral ] Blood Pressure 137/77 137/77 O2 Sat by Pulse 99 100 Oximetry Constitutional: other (critically ill on vent, sedated) Eyes: non-icteric ENT: oropharynx moist Neck: supple Effort: normal Ascultation: Bilateral: diminished breath sounds Cardiovascular: regular rate and rhythm (no mrg) Gastrointestinal: normoactive bowel sounds, soft, non-tender, non-distended Extremities: no cyanosis, no edema, pink and warm Neurologic: normal mental status, non-focal exam, pupils equal and round Psychiatric: mood appropriate, affect normal CBC and BMP: 03/28/21 04:00 03/28/21 04:00 ABG, PT/INR, D-dimer: ABG ABG pH 7.477 (7.320-7.450) H 03/24/21 08:57 POC ABG pCO2 56.9 mmHg (32.0-48.0) H 03/24/21 08:57 ABG pCO2 72.7 mm Hg 03/23/21 04:50 POC ABG pO2 100.6 mmHg (83-108) 03/24/21 08:57 ABG pO2 70.7 mm Hg (80.0-90.0) L 03/23/21 04:50 POC ABG HCO3 41.1 03/24/21 08:57 ABG O2 Saturation 98.3 (0-100) 03/24/21 08:57 PT/INR, D-dimer PT 12.6 Sec. (12.2-14.9) 03/17/21 17:37 INR 0.85 (0.87-1.13) L 03/17/21 17:37 D-Dimer 947.92 ng/mlDDU (0-234) H 03/17/21 17:37 Abnormal lab findings: Abnormal Labs 03/17/21 03/17/21 03/17/21 17:36 17:36 17:37 WBC 13.8 H RBC 3.48 L Hgb 7.0 L Hct 26.2 L MCV 75 L MCH 20 L MCHC 27 L RDW 25.4 H Plt Count Seg Neuts % (Manual) Lymphocytes % (Manual) Monocytes % (Manual) Nucleated RBC % 7.0 H Seg Neutrophils # Man 8.7 H Lymphocytes # (Manual) Monocytes # (Manual) INR 0.85 L APTT 23.3 L D-Dimer 947.92 H ABG pH POC ABG pCO2 POC ABG pO2 ABG pO2 ABG HCO3 ABG O2 Saturation ABG Base Excess ABG Hemoglobin ABG Oxyhemoglobin ABG Potassium ABG Chloride ABG Glucose Oxyhemoglobin Potassium Chloride 88.2 L Carbon Dioxide 38 H BUN Creatinine Glucose 129 H POC Glucose Lactic Acid Calcium Phosphorus Magnesium AST 177 H ALT 251 H Alkaline Phosphatase Ammonia Troponin T 0.036 H Total Protein 5.9 L Albumin 3.8 L Triglycerides 173 H HDL Cholesterol 73 H Lipase Arterial Blood Glucose Arterial Blood Ionized Calcium Acetaminophen Crossmatch 03/17/21 03/17/21 03/17/21 18:15 18:40 18:40 WBC RBC Hgb Hct MCV MCH MCHC RDW Plt Count Seg Neuts % (Manual) Lymphocytes % (Manual) Monocytes % (Manual) Nucleated RBC % Seg Neutrophils # Man Lymphocytes # (Manual) Monocytes # (Manual) INR APTT D-Dimer ABG pH POC ABG pCO2 POC ABG pO2 ABG pO2 94.4 H ABG HCO3 44.8 H ABG O2 Saturation ABG Base Excess 16.6 H ABG Hemoglobin ABG Oxyhemoglobin ABG Potassium ABG Chloride ABG Glucose Oxyhemoglobin Potassium Chloride Carbon Dioxide BUN Creatinine Glucose POC Glucose Lactic Acid 4.00 H* Calcium Phosphorus Magnesium AST ALT Alkaline Phosphatase Ammonia 116.0 H Troponin T Total Protein Albumin Triglycerides HDL Cholesterol Lipase Arterial Blood Glucose Arterial Blood Ionized Calcium Acetaminophen Crossmatch 03/17/21 03/18/21 03/18/21 23:36 00:25 23:07 WBC RBC Hgb Hct MCV MCH MCHC RDW Plt Count Seg Neuts % (Manual) Lymphocytes % (Manual) Monocytes % (Manual) Nucleated RBC % Seg Neutrophils # Man Lymphocytes # (Manual) Monocytes # (Manual) INR APTT D-Dimer ABG pH POC ABG pCO2 POC ABG pO2 ABG pO2 68.1 L ABG HCO3 40.2 H ABG O2 Saturation ABG Base Excess 14.4 H ABG Hemoglobin 6.5 L ABG Oxyhemoglobin ABG Potassium ABG Chloride ABG Glucose Oxyhemoglobin Potassium Chloride Carbon Dioxide BUN Creatinine Glucose POC Glucose Lactic Acid 4.00 H* Calcium Phosphorus Magnesium AST ALT Alkaline Phosphatase Ammonia Troponin T Total Protein Albumin Triglycerides HDL Cholesterol Lipase Arterial Blood Glucose Arterial Blood Ionized Calcium Acetaminophen 5.0 L Crossmatch 03/19/21 03/19/21 03/19/21 00:50 03:25 04:59 WBC RBC 3.43 L Hgb 7.0 L Hct 25.6 L MCV 75 L MCH 20 L MCHC 27 L RDW 25.6 H Plt Count Seg Neuts % (Manual) 91.0 H Lymphocytes % (Manual) Monocytes % (Manual) 9.0 H Nucleated RBC % 3.0 H Seg Neutrophils # Man 9.0 H Lymphocytes # (Manual) 0.0 L Monocytes # (Manual) INR APTT D-Dimer ABG pH 7.531 H POC ABG pCO2 POC ABG pO2 ABG pO2 49.6 L ABG HCO3 31.4 H ABG O2 Saturation 99.6 H ABG Base Excess 8.1 H ABG Hemoglobin 7.2 L ABG Oxyhemoglobin ABG Potassium ABG Chloride ABG Glucose Oxyhemoglobin Potassium Chloride Carbon Dioxide BUN Creatinine Glucose POC Glucose 127 H Lactic Acid Calcium Phosphorus Magnesium AST ALT Alkaline Phosphatase Ammonia Troponin T Total Protein Albumin Triglycerides HDL Cholesterol Lipase Arterial Blood Glucose Arterial Blood Ionized Calcium Acetaminophen Crossmatch 03/19/21 03/19/21 03/19/21 04:59 10:37 12:00 WBC RBC Hgb Hct MCV MCH MCHC RDW Plt Count Seg Neuts % (Manual) Lymphocytes % (Manual) Monocytes % (Manual) Nucleated RBC % Seg Neutrophils # Man Lymphocytes # (Manual) Monocytes # (Manual) INR APTT D-Dimer ABG pH 7.494 H POC ABG pCO2 POC ABG pO2 ABG pO2 107.3 H ABG HCO3 31.6 H ABG O2 Saturation ABG Base Excess 7.7 H ABG Hemoglobin 7.1 L ABG Oxyhemoglobin ABG Potassium ABG Chloride ABG Glucose Oxyhemoglobin Potassium Chloride 89.5 L Carbon Dioxide BUN Creatinine Glucose 121 H POC Glucose Lactic Acid Calcium Phosphorus Magnesium AST 359 H ALT 1434 H Alkaline Phosphatase Ammonia Troponin T Total Protein 5.7 L Albumin 3.5 L Triglycerides HDL Cholesterol Lipase Arterial Blood Glucose Arterial Blood Ionized Calcium Acetaminophen Crossmatch 03/19/21 03/19/21 03/19/21 12:05 17:52 23:23 WBC RBC Hgb Hct MCV MCH MCHC RDW Plt Count Seg Neuts % (Manual) Lymphocytes % (Manual) Monocytes % (Manual) Nucleated RBC % Seg Neutrophils # Man Lymphocytes # (Manual) Monocytes # (Manual) INR APTT D-Dimer ABG pH POC ABG pCO2 POC ABG pO2 ABG pO2 ABG HCO3 ABG O2 Saturation ABG Base Excess ABG Hemoglobin ABG Oxyhemoglobin ABG Potassium ABG Chloride ABG Glucose Oxyhemoglobin Potassium Chloride Carbon Dioxide BUN Creatinine Glucose POC Glucose 122 H 114 H 187 H Lactic Acid Calcium Phosphorus Magnesium AST ALT Alkaline Phosphatase Ammonia Troponin T Total Protein Albumin Triglycerides HDL Cholesterol Lipase Arterial Blood Glucose Arterial Blood Ionized Calcium Acetaminophen Crossmatch 03/19/21 03/20/21 03/20/21 Unknown 03:50 03:57 WBC RBC Hgb Hct MCV MCH MCHC RDW Plt Count Seg Neuts % (Manual) Lymphocytes % (Manual) Monocytes % (Manual) Nucleated RBC % Seg Neutrophils # Man Lymphocytes # (Manual) Monocytes # (Manual) INR APTT D-Dimer ABG pH 7.477 H POC ABG pCO2 POC ABG pO2 ABG pO2 67.9 L ABG HCO3 33.9 H ABG O2 Saturation ABG Base Excess 9.5 H ABG Hemoglobin 6.7 L ABG Oxyhemoglobin ABG Potassium ABG Chloride ABG Glucose Oxyhemoglobin Potassium Chloride Carbon Dioxide BUN Creatinine Glucose POC Glucose 247 H Lactic Acid Calcium Phosphorus Magnesium AST ALT Alkaline Phosphatase Ammonia Troponin T Total Protein Albumin Triglycerides HDL Cholesterol Lipase 12 L Arterial Blood Glucose Arterial Blood Ionized Calcium Acetaminophen Crossmatch 12/03/20/21 03/20/21 04:18 04:18 10:16 WBC RBC 3.48 L Hgb 7.0 L Hct 25.3 L MCV 73 L MCH 20 L MCHC 28 L RDW 25.2 H Plt Count 541 H Seg Neuts % (Manual) Lymphocytes % (Manual) Monocytes % (Manual) Nucleated RBC % Seg Neutrophils # Man Lymphocytes # (Manual) Monocytes # (Manual) INR APTT D-Dimer ABG pH POC ABG pCO2 POC ABG pO2 ABG pO2 63.3 L ABG HCO3 34.0 H ABG O2 Saturation 90.0 L ABG Base Excess 7.9 H ABG Hemoglobin 10.5 L ABG Oxyhemoglobin ABG Potassium ABG Chloride ABG Glucose Oxyhemoglobin 88.1 L Potassium Chloride 91.6 L Carbon Dioxide BUN 22 H Creatinine Glucose 245 H POC Glucose Lactic Acid Calcium Phosphorus Magnesium AST 148 H ALT 1096 H Alkaline Phosphatase 133 H Ammonia Troponin T Total Protein Albumin 3.5 L Triglycerides HDL Cholesterol Lipase Arterial Blood Glucose Arterial Blood Ionized Calcium Acetaminophen Crossmatch 03/20/21 03/20/21 03/21/21 12:05 17:26 00:18 WBC RBC Hgb Hct MCV MCH MCHC RDW Plt Count Seg Neuts % (Manual) Lymphocytes % (Manual) Monocytes % (Manual) Nucleated RBC % Seg Neutrophils # Man Lymphocytes # (Manual) Monocytes # (Manual) INR APTT D-Dimer ABG pH POC ABG pCO2 POC ABG pO2 ABG pO2 ABG HCO3 ABG O2 Saturation ABG Base Excess ABG Hemoglobin ABG Oxyhemoglobin ABG Potassium ABG Chloride ABG Glucose Oxyhemoglobin Potassium Chloride Carbon Dioxide BUN Creatinine Glucose POC Glucose 226 H 215 H 323 H Lactic Acid Calcium Phosphorus Magnesium AST ALT Alkaline Phosphatase Ammonia Troponin T Total Protein Albumin Triglycerides HDL Cholesterol Lipase Arterial Blood Glucose Arterial Blood Ionized Calcium Acetaminophen Crossmatch 03/21/21 03/21/21 03/21/21 04:00 05:05 09:28 WBC 12.0 H RBC 3.42 L Hgb 6.8 L Hct 25.3 L MCV 74 L MCH 20 L MCHC 27 L RDW 25.1 H Plt Count 650 H Seg Neuts % (Manual) Lymphocytes % (Manual) Monocytes % (Manual) Nucleated RBC % Seg Neutrophils # Man Lymphocytes # (Manual) Monocytes # (Manual) INR APTT D-Dimer ABG pH 7.348 L POC ABG pCO2 POC ABG pO2 ABG pO2 56.3 L ABG HCO3 36.9 H ABG O2 Saturation 83.4 L ABG Base Excess 10.0 H ABG Hemoglobin 7.0 L ABG Oxyhemoglobin ABG Potassium ABG Chloride ABG Glucose Oxyhemoglobin 81.7 L Potassium Chloride Carbon Dioxide BUN Creatinine Glucose POC Glucose 311 H Lactic Acid Calcium Phosphorus Magnesium AST ALT Alkaline Phosphatase Ammonia Troponin T Total Protein Albumin Triglycerides HDL Cholesterol Lipase Arterial Blood Glucose Arterial Blood Ionized Calcium Acetaminophen Crossmatch 03/21/21 03/21/21 03/21/21 09:28 12:31 14:08 WBC RBC Hgb Hct MCV MCH MCHC RDW Plt Count Seg Neuts % (Manual) Lymphocytes % (Manual) Monocytes % (Manual) Nucleated RBC % Seg Neutrophils # Man Lymphocytes # (Manual) Monocytes # (Manual) INR APTT D-Dimer ABG pH POC ABG pCO2 POC ABG pO2 ABG pO2 ABG HCO3 ABG O2 Saturation ABG Base Excess ABG Hemoglobin ABG Oxyhemoglobin ABG Potassium ABG Chloride ABG Glucose Oxyhemoglobin Potassium 5.1 H D Chloride 94.4 L Carbon Dioxide 33 H BUN 32 H Creatinine Glucose 319 H POC Glucose 295 H Lactic Acid Calcium Phosphorus Magnesium 2.40 H AST ALT 697 H Alkaline Phosphatase 134 H Ammonia Troponin T Total Protein 5.8 L Albumin 3.4 L Triglycerides HDL Cholesterol Lipase Arterial Blood Glucose Arterial Blood Ionized Calcium Acetaminophen Crossmatch See Detail 03/22/21 03/22/21 03/22/21 00:14 04:30 04:39 WBC RBC Hgb Hct MCV MCH MCHC RDW Plt Count Seg Neuts % (Manual) Lymphocytes % (Manual) Monocytes % (Manual) Nucleated RBC % Seg Neutrophils # Man Lymphocytes # (Manual) Monocytes # (Manual) INR APTT D-Dimer ABG pH 7.310 L POC ABG pCO2 POC ABG pO2 ABG pO2 65.4 L ABG HCO3 38.3 H ABG O2 Saturation 90.8 L ABG Base Excess 10.9 H ABG Hemoglobin 6.4 L ABG Oxyhemoglobin ABG Potassium ABG Chloride ABG Glucose Oxyhemoglobin 88.7 L Potassium Chloride Carbon Dioxide BUN Creatinine Glucose POC Glucose 326 H Lactic Acid Calcium Phosphorus Magnesium AST ALT Alkaline Phosphatase Ammonia Troponin T Total Protein Albumin Triglycerides 189 H HDL Cholesterol Lipase Arterial Blood Glucose Arterial Blood Ionized Calcium Acetaminophen Crossmatch 03/22/21 03/22/21 03/22/21 04:39 04:39 09:45 WBC 12.8 H RBC 3.34 L Hgb 6.6 L Hct 24.5 L MCV 73 L MCH 20 L MCHC 27 L RDW 25.5 H Plt Count 644 H Seg Neuts % (Manual) Lymphocytes % (Manual) Monocytes % (Manual) Nucleated RBC % Seg Neutrophils # Man Lymphocytes # (Manual) Monocytes # (Manual) INR APTT D-Dimer ABG pH POC ABG pCO2 65.7 H POC ABG pO2 59.7 L ABG pO2 ABG HCO3 ABG O2 Saturation ABG Base Excess ABG Hemoglobin 8.0 L ABG Oxyhemoglobin 86.3 L ABG Potassium 4.7 H ABG Chloride 94.0 L ABG Glucose 208 H Oxyhemoglobin Potassium 5.3 H Chloride 94.6 L Carbon Dioxide 34 H BUN 33 H Creatinine Glucose 291 H POC Glucose Lactic Acid Calcium Phosphorus Magnesium AST ALT Alkaline Phosphatase Ammonia Troponin T Total Protein Albumin Triglycerides HDL Cholesterol Lipase Arterial Blood Glucose 208 H Arterial Blood Ionized Calcium Acetaminophen Crossmatch 03/22/21 03/22/21 03/23/21 21:33 23:58 04:42 WBC 14.3 H RBC 3.63 L Hgb 7.6 L Hct 27.0 L MCV 74 L MCH 21 L MCHC 28 L RDW 23.1 H Plt Count 567 H Seg Neuts % (Manual) Lymphocytes % (Manual) Monocytes % (Manual) Nucleated RBC % Seg Neutrophils # Man Lymphocytes # (Manual) Monocytes # (Manual) INR APTT D-Dimer ABG pH POC ABG pCO2 POC ABG pO2 ABG pO2 ABG HCO3 ABG O2 Saturation ABG Base Excess ABG Hemoglobin ABG Oxyhemoglobin ABG Potassium ABG Chloride ABG Glucose Oxyhemoglobin Potassium Chloride Carbon Dioxide BUN Creatinine Glucose POC Glucose 170 H 156 H Lactic Acid Calcium Phosphorus Magnesium AST ALT Alkaline Phosphatase Ammonia Troponin T Total Protein Albumin Triglycerides HDL Cholesterol Lipase Arterial Blood Glucose Arterial Blood Ionized Calcium Acetaminophen Crossmatch 03/23/21 03/23/21 03/23/21 04:42 04:50 22:25 WBC RBC Hgb Hct MCV MCH MCHC RDW Plt Count Seg Neuts % (Manual) Lymphocytes % (Manual) Monocytes % (Manual) Nucleated RBC % Seg Neutrophils # Man Lymphocytes # (Manual) Monocytes # (Manual) INR APTT D-Dimer ABG pH POC ABG pCO2 POC ABG pO2 ABG pO2 70.7 L ABG HCO3 41.7 H ABG O2 Saturation ABG Base Excess 15.2 H ABG Hemoglobin 5.6 L ABG Oxyhemoglobin ABG Potassium ABG Chloride ABG Glucose Oxyhemoglobin Potassium Chloride 94.6 L Carbon Dioxide 37 H BUN 27 H Creatinine Glucose 311 H POC Glucose 295 H Lactic Acid Calcium Phosphorus Magnesium AST ALT Alkaline Phosphatase Ammonia Troponin T Total Protein Albumin Triglycerides HDL Cholesterol Lipase Arterial Blood Glucose Arterial Blood Ionized Calcium Acetaminophen Crossmatch 03/23/21 03/24/21 03/24/21 23:13 05:13 07:59 WBC RBC Hgb Hct MCV MCH MCHC RDW Plt Count Seg Neuts % (Manual) Lymphocytes % (Manual) Monocytes % (Manual) Nucleated RBC % Seg Neutrophils # Man Lymphocytes # (Manual) Monocytes # (Manual) INR APTT D-Dimer ABG pH POC ABG pCO2 POC ABG pO2 ABG pO2 ABG HCO3 ABG O2 Saturation ABG Base Excess ABG Hemoglobin ABG Oxyhemoglobin ABG Potassium ABG Chloride ABG Glucose Oxyhemoglobin Potassium Chloride Carbon Dioxide BUN Creatinine Glucose POC Glucose 336 H 303 H 333 H Lactic Acid Calcium Phosphorus Magnesium AST ALT Alkaline Phosphatase Ammonia Troponin T Total Protein Albumin Triglycerides HDL Cholesterol Lipase Arterial Blood Glucose Arterial Blood Ionized Calcium Acetaminophen Crossmatch 03/24/21 03/24/21 03/24/21 08:03 08:03 08:57 WBC 12.7 H RBC 3.48 L Hgb 7.3 L Hct 26.3 L MCV 76 L MCH 21 L MCHC 28 L RDW 24.1 H Plt Count 499 H Seg Neuts % (Manual) Lymphocytes % (Manual) 1.0 L Monocytes % (Manual) 16.0 H Nucleated RBC % 11.0 H Seg Neutrophils # Man 8.1 H Lymphocytes # (Manual) 0.1 L Monocytes # (Manual) 2.1 H INR APTT D-Dimer ABG pH 7.477 H POC ABG pCO2 56.9 H POC ABG pO2 ABG pO2 ABG HCO3 ABG O2 Saturation ABG Base Excess ABG Hemoglobin 8.0 L ABG Oxyhemoglobin ABG Potassium ABG Chloride 93.0 L ABG Glucose 328 H Oxyhemoglobin Potassium Chloride 94.4 L Carbon Dioxide 38 H BUN 26 H Creatinine 0.5 L Glucose 348 H POC Glucose Lactic Acid Calcium Phosphorus Magnesium AST ALT Alkaline Phosphatase Ammonia Troponin T Total Protein Albumin Triglycerides HDL Cholesterol Lipase Arterial Blood Glucose 328 H Arterial Blood Ionized Calcium 4.5 L Acetaminophen Crossmatch 03/24/21 03/24/21 03/25/21 12:14 17:45 04:00 WBC 15.8 H RBC Hgb 7.5 L Hct 27.4 L MCV 75 L MCH 21 L MCHC 28 L RDW 24.0 H Plt Count 576 H Seg Neuts % (Manual) Lymphocytes % (Manual) Monocytes % (Manual) Nucleated RBC % Seg Neutrophils # Man Lymphocytes # (Manual) Monocytes # (Manual) INR APTT D-Dimer ABG pH POC ABG pCO2 POC ABG pO2 ABG pO2 ABG HCO3 ABG O2 Saturation ABG Base Excess ABG Hemoglobin ABG Oxyhemoglobin ABG Potassium ABG Chloride ABG Glucose Oxyhemoglobin Potassium Chloride Carbon Dioxide BUN Creatinine Glucose POC Glucose 315 H 324 H Lactic Acid Calcium Phosphorus Magnesium AST ALT Alkaline Phosphatase Ammonia Troponin T Total Protein Albumin Triglycerides HDL Cholesterol Lipase Arterial Blood Glucose Arterial Blood Ionized Calcium Acetaminophen Crossmatch 03/25/21 03/25/21 03/25/21 07:52 16:37 17:38 WBC RBC Hgb Hct MCV MCH MCHC RDW Plt Count Seg Neuts % (Manual) Lymphocytes % (Manual) Monocytes % (Manual) Nucleated RBC % Seg Neutrophils # Man Lymphocytes # (Manual) Monocytes # (Manual) INR APTT D-Dimer ABG pH POC ABG pCO2 POC ABG pO2 ABG pO2 ABG HCO3 ABG O2 Saturation ABG Base Excess ABG Hemoglobin ABG Oxyhemoglobin ABG Potassium ABG Chloride ABG Glucose Oxyhemoglobin Potassium Chloride 95.9 L Carbon Dioxide 33 H BUN 24 H Creatinine 0.4 L Glucose 289 H POC Glucose 321 H 295 H Lactic Acid Calcium Phosphorus Magnesium AST ALT Alkaline Phosphatase Ammonia Troponin T Total Protein Albumin Triglycerides HDL Cholesterol Lipase Arterial Blood Glucose Arterial Blood Ionized Calcium Acetaminophen Crossmatch 03/25/21 03/26/21 03/26/21 23:27 05:07 05:35 WBC 20.0 H RBC 3.37 L Hgb 7.0 L Hct 25.2 L MCV 75 L MCH 21 L MCHC 28 L RDW 24.0 H Plt Count 544 H Seg Neuts % (Manual) 72.0 H Lymphocytes % (Manual) 6.0 L Monocytes % (Manual) 8.0 H Nucleated RBC % Seg Neutrophils # Man 14.4 H Lymphocytes # (Manual) Monocytes # (Manual) 1.6 H INR APTT D-Dimer ABG pH POC ABG pCO2 POC ABG pO2 ABG pO2 ABG HCO3 ABG O2 Saturation ABG Base Excess ABG Hemoglobin ABG Oxyhemoglobin ABG Potassium ABG Chloride ABG Glucose Oxyhemoglobin Potassium Chloride Carbon Dioxide BUN Creatinine Glucose POC Glucose 231 H 200 H Lactic Acid Calcium Phosphorus Magnesium AST ALT Alkaline Phosphatase Ammonia Troponin T Total Protein Albumin Triglycerides HDL Cholesterol Lipase Arterial Blood Glucose Arterial Blood Ionized Calcium Acetaminophen Crossmatch 03/26/21 03/26/21 03/26/21 05:35 10:33 12:12 WBC RBC Hgb Hct MCV MCH MCHC RDW Plt Count Seg Neuts % (Manual) Lymphocytes % (Manual) Monocytes % (Manual) Nucleated RBC % Seg Neutrophils # Man Lymphocytes # (Manual) Monocytes # (Manual) INR APTT D-Dimer ABG pH POC ABG pCO2 POC ABG pO2 ABG pO2 ABG HCO3 ABG O2 Saturation ABG Base Excess ABG Hemoglobin ABG Oxyhemoglobin ABG Potassium ABG Chloride ABG Glucose Oxyhemoglobin Potassium 5.9 H D Chloride 91.9 L Carbon Dioxide 33 H BUN 20 H Creatinine 0.4 L Glucose 197 H POC Glucose 132 H 176 H Lactic Acid Calcium Phosphorus Magnesium AST ALT 169 H Alkaline Phosphatase 138 H Ammonia Troponin T Total Protein 5.5 L Albumin 3.2 L Triglycerides HDL Cholesterol Lipase Arterial Blood Glucose Arterial Blood Ionized Calcium Acetaminophen Crossmatch 03/26/21 03/26/21 03/26/21 16:50 18:06 22:19 WBC RBC Hgb Hct MCV MCH MCHC RDW Plt Count Seg Neuts % (Manual) Lymphocytes % (Manual) Monocytes % (Manual) Nucleated RBC % Seg Neutrophils # Man Lymphocytes # (Manual) Monocytes # (Manual) INR APTT D-Dimer ABG pH POC ABG pCO2 POC ABG pO2 ABG pO2 ABG HCO3 ABG O2 Saturation ABG Base Excess ABG Hemoglobin ABG Oxyhemoglobin ABG Potassium ABG Chloride ABG Glucose Oxyhemoglobin Potassium 5.2 H Chloride 91.7 L Carbon Dioxide 38 H BUN 19 H Creatinine 0.4 L Glucose 260 H POC Glucose 248 H 168 H Lactic Acid Calcium Phosphorus Magnesium AST ALT Alkaline Phosphatase Ammonia Troponin T Total Protein Albumin Triglycerides HDL Cholesterol Lipase Arterial Blood Glucose Arterial Blood Ionized Calcium Acetaminophen Crossmatch 0103/27/21 03/27/21 01:02 01:32 04:15 WBC 21.4 H RBC 3.45 L Hgb 6.9 L Hct 26.2 L MCV 76 L MCH 20 L MCHC 27 L RDW 24.5 H Plt Count 500 H Seg Neuts % (Manual) Lymphocytes % (Manual) Monocytes % (Manual) Nucleated RBC % Seg Neutrophils # Man Lymphocytes # (Manual) Monocytes # (Manual) INR APTT D-Dimer ABG pH POC ABG pCO2 POC ABG pO2 ABG pO2 ABG HCO3 ABG O2 Saturation ABG Base Excess ABG Hemoglobin ABG Oxyhemoglobin ABG Potassium ABG Chloride ABG Glucose Oxyhemoglobin Potassium Chloride Carbon Dioxide BUN Creatinine Glucose POC Glucose 219 H 221 H Lactic Acid Calcium Phosphorus Magnesium AST ALT Alkaline Phosphatase Ammonia Troponin T Total Protein Albumin Triglycerides HDL Cholesterol Lipase Arterial Blood Glucose Arterial Blood Ionized Calcium Acetaminophen Crossmatch 03/27/21 03/27/21 03/27/21 04:15 06:37 11:21 WBC RBC Hgb Hct MCV MCH MCHC RDW Plt Count Seg Neuts % (Manual) Lymphocytes % (Manual) Monocytes % (Manual) Nucleated RBC % Seg Neutrophils # Man Lymphocytes # (Manual) Monocytes # (Manual) INR APTT D-Dimer ABG pH POC ABG pCO2 POC ABG pO2 ABG pO2 ABG HCO3 ABG O2 Saturation ABG Base Excess ABG Hemoglobin ABG Oxyhemoglobin ABG Potassium ABG Chloride ABG Glucose Oxyhemoglobin Potassium 5.3 H Chloride 94.4 L Carbon Dioxide 35 H BUN 20 H Creatinine 0.4 L Glucose 310 H POC Glucose 312 H 273 H Lactic Acid Calcium 8.3 L Phosphorus 4.60 H D Magnesium AST ALT Alkaline Phosphatase Ammonia Troponin T Total Protein Albumin Triglycerides HDL Cholesterol Lipase Arterial Blood Glucose Arterial Blood Ionized Calcium Acetaminophen Crossmatch 03/27/21 03/27/21 03/28/21 16:14 21:21 00:16 WBC RBC Hgb Hct MCV MCH MCHC RDW Plt Count Seg Neuts % (Manual) Lymphocytes % (Manual) Monocytes % (Manual) Nucleated RBC % Seg Neutrophils # Man Lymphocytes # (Manual) Monocytes # (Manual) INR APTT D-Dimer ABG pH POC ABG pCO2 POC ABG pO2 ABG pO2 ABG HCO3 ABG O2 Saturation ABG Base Excess ABG Hemoglobin ABG Oxyhemoglobin ABG Potassium ABG Chloride ABG Glucose Oxyhemoglobin Potassium Chloride Carbon Dioxide BUN Creatinine Glucose POC Glucose 241 H 179 H 160 H Lactic Acid Calcium Phosphorus Magnesium AST ALT Alkaline Phosphatase Ammonia Troponin T Total Protein Albumin Triglycerides HDL Cholesterol Lipase Arterial Blood Glucose Arterial Blood Ionized Calcium Acetaminophen Crossmatch 03/28/21 03/28/21 03/28/21 04:00 04:00 05:41 WBC 27.1 H RBC 3.46 L Hgb 7.1 L Hct 26.1 L MCV 76 L MCH 20 L MCHC 27 L RDW 24.0 H Plt Count 541 H Seg Neuts % (Manual) Lymphocytes % (Manual) Monocytes % (Manual) Nucleated RBC % Seg Neutrophils # Man Lymphocytes # (Manual) Monocytes # (Manual) INR APTT D-Dimer ABG pH POC ABG pCO2 POC ABG pO2 ABG pO2 ABG HCO3 ABG O2 Saturation ABG Base Excess ABG Hemoglobin ABG Oxyhemoglobin ABG Potassium ABG Chloride ABG Glucose Oxyhemoglobin Potassium Chloride 95.7 L Carbon Dioxide 36 H BUN 23 H Creatinine 0.4 L Glucose 295 H POC Glucose 279 H Lactic Acid Calcium Phosphorus Magnesium AST ALT Alkaline Phosphatase Ammonia Troponin T Total Protein Albumin Triglycerides HDL Cholesterol Lipase Arterial Blood Glucose Arterial Blood Ionized Calcium Acetaminophen Crossmatch 03/28/21 11:50 WBC RBC Hgb Hct MCV MCH MCHC RDW Plt Count Seg Neuts % (Manual) Lymphocytes % (Manual) Monocytes % (Manual) Nucleated RBC % Seg Neutrophils # Man Lymphocytes # (Manual) Monocytes # (Manual) INR APTT D-Dimer ABG pH POC ABG pCO2 POC ABG pO2 ABG pO2 ABG HCO3 ABG O2 Saturation ABG Base Excess ABG Hemoglobin ABG Oxyhemoglobin ABG Potassium ABG Chloride ABG Glucose Oxyhemoglobin Potassium Chloride Carbon Dioxide BUN Creatinine Glucose POC Glucose 233 H Lactic Acid Calcium Phosphorus Magnesium AST ALT Alkaline Phosphatase Ammonia Troponin T Total Protein Albumin Triglycerides HDL Cholesterol Lipase Arterial Blood Glucose Arterial Blood Ionized Calcium Acetaminophen Crossmatch
[2021-03-28] MEDS: INSULIN GLARGINE 100 UNITS/ML SUB-Q SCH (21:50)
[2021-03-29] MEDS: INSULIN LISPRO 100 UNIT/ML SUB-Q SCH ×3 (00:26→12:34)
[2021-03-29 05:37] LABS: Mean Corpuscular HGB Conc 28 % (30-34); Mean Corpuscular Volume 76 fl (79-97); Platelet Count 678 K/mm3 (140-440); Red Blood Count 3.18 M/mm3 (3.65-5.03)
[2021-03-29 05:45] LABS: Blood Urea Nitrogen 22 mg/dL (7-17); Calcium 8.7 mg/dL (8.4-10.2); Hemolysis Index 4
[2021-03-29 05:46] LABS: BUN/Creatinine Ratio 55
[2021-03-29 06:21] LABS: Hematocrit 24.2 % (30.3-42.9); Hemoglobin 6.7 gm/dl (10.1-14.3)
[2021-03-29] MEDS: HEPARIN 5,000 UNIT/1 ML VIAL SUB-Q SCH ×3 (06:55→21:13)
[2021-03-29] MEDS: fentaNYL DRIP Premix 2,000 MCG/100 ML BAG IV SCH (06:55)
[2021-03-29] MEDS: ARFORMOTEROL 15 MCG/2 ML NEBU IH SCH ×2 (07:56→20:14)
[2021-03-29] MEDS: BUDESONIDE 0.5 MG/2 ML NEBU IH SCH ×2 (07:57→20:14)
[2021-03-29] MEDS ORDERED: SODIUM CHLORIDE 0.9% 500 ML 500 ML IV SCH (08:00)
[2021-03-29] MEDS ORDERED: METOPROLOL TARTRATE 5 MG/5 ML INJ IV ONE (08:00)
--- NOTE | 2021-03-29 09:20 | Progress Note ---
Assessment and Plan 60 y/o female with acute on chronic respiratory failure, SVT and HTN likely all related to anxiety and stress 03/29/20: Currently on bipap. Good volumes and good sats. Still with some mild distress but stable. Will continue bipap therapy for now. Tomorrow will need to place psych consult if able to stay of the vent and weaned from continuous bipap to help us address anxiety and depression. IMS will likely want to transfuse PRBC's. Would give slowly if done. Discussed with P[employer] and Bedside nurse, will restart precedex at low dose to help with anxiety. Will alert . 03/28/20: Continue PSV but she isnt ready for extubation today. Not able to tolerates PSV on yesterday so today is first real test. Dropped steroids to d aily starting today. UOP is stable, but she is grossly positive. If oxygen requirement increases, check CXR and may need to consider lasix. Continue PSV for as long as possible today but definitely rest overnight. Guarded prognosis. May eventually need trach. 03/27/21: Monitor renal function and urine output closely. Not sure why K continues to be elevated despite daily correction therapy. Attempt PSV off fent but can continue precedex. Will see how patient looks tomorrow but still may n ot be a candidate for extubation. Drop steroids to daily starting tomorrow. 03/26/21: Continue daily PSV trials. Agree with my partner as I would like another trial of routine extubation before committing to trach. Discussed with family and patient at bedside this am. Continue solumedrol 40q12. IMS restarted buspar. WIll have psych see and evaluate to help with anxiety and depression once extubated. Guarded prognosis. 03/22/21: Please see event note for details. Planned to extubate today and wean steroids. 03/21/21: Echo given continued tachycardia despite adequate oxygenation. Can drop steroids to 40q8. 03/19/21: Continue sedation. Wean FiO2 for sats >88%. consider weaning steroid tomorrow. Follow up RUQ and trend LFT's 1. Wean Versed and place on Diprovan drip 2. Will give Fent 100 IV x1 now and order drip if needed for pain 3. Spoke with over the phone to get more history. Sounds like a panic attack not aborted by xanax therapy. Did check Tylenol level as patient has been in pain from fall 4. Elevated LFT's former drinker but confirms she has not been drinking. Ordered RUQ ultrasound and need to repeat LFT's tomorrow 5. Reviewed cards note, and they do not want to treat tachycardia or elevated bp, likely needs more sedation Guarded prognosis CCT 31 minutes. Subjective Date of service: 03/29/21 Principal diagnosis: Atrial fibrillation with RVR, respiratory failure Interval history: Patient self extubated this am. Currently on bipap. Tachy and hypertensive but awake and alert. Very anxious. Objective Vital Signs - 12hr 03/28/21 03/28/21 03/28/21 21:30 21:55 22:00 Temperature Pulse Rate 96 H 81 97 H Pulse Rate [ From Monitor] Respiratory 18 17 Rate Blood Pressure 114/87 173/76 173/76 O2 Sat by Pulse 99 100 Oximetry 03/28/21 03/28/21 03/28/21 22:30 23:00 23:14 Temperature Pulse Rate 78 73 73 Pulse Rate [ From Monitor] Respiratory 16 18 18 Rate Blood Pressure 153/88 141/65 113/60 O2 Sat by Pulse 100 100 100 Oximetry 03/28/21 03/29/21 03/29/21 23:57 00:00 00:30 Temperature 97.8 F Pulse Rate 72 68 72 Pulse Rate [ 68 From Monitor] Respiratory 18 17 Rate Blood Pressure 118/92 118/92 102/63 O2 Sat by Pulse 100 100 100 Oximetry 03/29/21 03/29/21 03/29/21 01:00 01:30 02:00 Temperature Pulse Rate 68 66 77 Pulse Rate [ From Monitor] Respiratory 17 18 15 Rate Blood Pressure 93/56 93/56 108/68 O2 Sat by Pulse 100 100 100 Oximetry 03/29/21 03/29/21 03/29/21 02:30 03:00 03:30 Temperature Pulse Rate 90 86 79 Pulse Rate [ From Monitor] Respiratory 15 13 15 Rate Blood Pressure 98/73 99/81 135/78 O2 Sat by Pulse 100 Oximetry 03/29/21 03/29/21 03/29/21 04:00 04:11 04:30 Temperature 97.5 F L Pulse Rate 78 85 79 Pulse Rate [ 85 From Monitor] Respiratory 18 16 Rate Blood Pressure 135/78 134/73 134/73 O2 Sat by Pulse 99 100 100 Oximetry 03/29/21 03/29/21 03/29/21 05:00 05:30 06:00 Temperature Pulse Rate 77 81 75 Pulse Rate [ From Monitor] Respiratory 18 13 14 Rate Blood Pressure 134/73 122/63 122/63 O2 Sat by Pulse 100 100 100 Oximetry 03/29/21 03/29/21 03/29/21 06:30 07:00 07:11 Temperature 98.0 F Pulse Rate 71 84 Pulse Rate [ From Monitor] Respiratory 18 16 Rate Blood Pressure 158/81 158/81 O2 Sat by Pulse 100 100 Oximetry 03/29/21 03/29/21 03/29/21 07:30 07:53 07:56 Temperature Pulse Rate 119 H 132 H 145 H Pulse Rate [ From Monitor] Respiratory 20 27 H Rate Blood Pressure 165/78 165/78 165/78 O2 Sat by Pulse 97 100 Oximetry 03/29/21 03/29/21 08:00 08:30 Temperature Pulse Rate 123 H 89 Pulse Rate [ 143 H From Monitor] Respiratory 22 19 Rate Blood Pressure 165/78 156/114 O2 Sat by Pulse 100 100 Oximetry Constitutional: other (critically ill on vent, sedated) Eyes: non-icteric ENT: oropharynx moist Neck: supple Effort: normal Ascultation: Bilateral: diminished breath sounds Cardiovascular: regular rate and rhythm (no mrg) Gastrointestinal: normoactive bowel sounds, soft, non-tender, non-distended Extremities: no cyanosis, no edema, pink and warm Neurologic: normal mental status, non-focal exam, pupils equal and round Psychiatric: mood appropriate, affect normal CBC and BMP: 03/29/21 04:35 03/29/21 04:35 ABG, PT/INR, D-dimer: ABG ABG pH 7.477 (7.320-7.450) H 03/24/21 08:57 POC ABG pCO2 56.9 mmHg (32.0-48.0) H 03/24/21 08:57 ABG pCO2 72.7 mm Hg 03/23/21 04:50 POC ABG pO2 100.6 mmHg (83-108) 03/24/21 08:57 ABG pO2 70.7 mm Hg (80.0-90.0) L 03/23/21 04:50 POC ABG HCO3 41.1 03/24/21 08:57 ABG O2 Saturation 98.3 (0-100) 03/24/21 08:57 PT/INR, D-dimer PT 12.6 Sec. (12.2-14.9) 03/17/21 17:37 INR 0.85 (0.87-1.13) L 03/17/21 17:37 D-Dimer 947.92 ng/mlDDU (0-234) H 03/17/21 17:37 Abnormal lab findings: Abnormal Labs 03/17/21 03/17/21 03/17/21 17:36 17:36 17:37 WBC 13.8 H RBC 3.48 L Hgb 7.0 L Hct 26.2 L MCV 75 L MCH 20 L MCHC 27 L RDW 25.4 H Plt Count Seg Neuts % (Manual) Lymphocytes % (Manual) Monocytes % (Manual) Nucleated RBC % 7.0 H Seg Neutrophils # Man 8.7 H Lymphocytes # (Manual) Monocytes # (Manual) INR 0.85 L APTT 23.3 L D-Dimer 947.92 H ABG pH POC ABG pCO2 POC ABG pO2 ABG pO2 ABG HCO3 ABG O2 Saturation ABG Base Excess ABG Hemoglobin ABG Oxyhemoglobin ABG Potassium ABG Chloride ABG Glucose Oxyhemoglobin Potassium Chloride 88.2 L Carbon Dioxide 38 H BUN Creatinine Glucose 129 H POC Glucose Lactic Acid Calcium Phosphorus Magnesium AST 177 H ALT 251 H Alkaline Phosphatase Ammonia Troponin T 0.036 H Total Protein 5.9 L Albumin 3.8 L Triglycerides 173 H HDL Cholesterol 73 H Lipase Arterial Blood Glucose Arterial Blood Ionized Calcium Acetaminophen Crossmatch 03/17/21 03/17/21 03/17/21 18:15 18:40 18:40 WBC RBC Hgb Hct MCV MCH MCHC RDW Plt Count Seg Neuts % (Manual) Lymphocytes % (Manual) Monocytes % (Manual) Nucleated RBC % Seg Neutrophils # Man Lymphocytes # (Manual) Monocytes # (Manual) INR APTT D-Dimer ABG pH POC ABG pCO2 POC ABG pO2 ABG pO2 94.4 H ABG HCO3 44.8 H ABG O2 Saturation ABG Base Excess 16.6 H ABG Hemoglobin ABG Oxyhemoglobin ABG Potassium ABG Chloride ABG Glucose Oxyhemoglobin Potassium Chloride Carbon Dioxide BUN Creatinine Glucose POC Glucose Lactic Acid 4.00 H* Calcium Phosphorus Magnesium AST ALT Alkaline Phosphatase Ammonia 116.0 H Troponin T Total Protein Albumin Triglycerides HDL Cholesterol Lipase Arterial Blood Glucose Arterial Blood Ionized Calcium Acetaminophen Crossmatch 03/17/21 03/18/21 03/18/21 23:36 00:25 23:07 WBC RBC Hgb Hct MCV MCH MCHC RDW Plt Count Seg Neuts % (Manual) Lymphocytes % (Manual) Monocytes % (Manual) Nucleated RBC % Seg Neutrophils # Man Lymphocytes # (Manual) Monocytes # (Manual) INR APTT D-Dimer ABG pH POC ABG pCO2 POC ABG pO2 ABG pO2 68.1 L ABG HCO3 40.2 H ABG O2 Saturation ABG Base Excess 14.4 H ABG Hemoglobin 6.5 L ABG Oxyhemoglobin ABG Potassium ABG Chloride ABG Glucose Oxyhemoglobin Potassium Chloride Carbon Dioxide BUN Creatinine Glucose POC Glucose Lactic Acid 4.00 H* Calcium Phosphorus Magnesium AST ALT Alkaline Phosphatase Ammonia Troponin T Total Protein Albumin Triglycerides HDL Cholesterol Lipase Arterial Blood Glucose Arterial Blood Ionized Calcium Acetaminophen 5.0 L Crossmatch 03/19/21 03/19/21 03/19/21 00:50 03:25 04:59 WBC RBC 3.43 L Hgb 7.0 L Hct 25.6 L MCV 75 L MCH 20 L MCHC 27 L RDW 25.6 H Plt Count Seg Neuts % (Manual) 91.0 H Lymphocytes % (Manual) Monocytes % (Manual) 9.0 H Nucleated RBC % 3.0 H Seg Neutrophils # Man 9.0 H Lymphocytes # (Manual) 0.0 L Monocytes # (Manual) INR APTT D-Dimer ABG pH 7.531 H POC ABG pCO2 POC ABG pO2 ABG pO2 49.6 L ABG HCO3 31.4 H ABG O2 Saturation 99.6 H ABG Base Excess 8.1 H ABG Hemoglobin 7.2 L ABG Oxyhemoglobin ABG Potassium ABG Chloride ABG Glucose Oxyhemoglobin Potassium Chloride Carbon Dioxide BUN Creatinine Glucose POC Glucose 127 H Lactic Acid Calcium Phosphorus Magnesium AST ALT Alkaline Phosphatase Ammonia Troponin T Total Protein Albumin Triglycerides HDL Cholesterol Lipase Arterial Blood Glucose Arterial Blood Ionized Calcium Acetaminophen Crossmatch 03/19/21 03/19/21 03/19/21 04:59 10:37 12:00 WBC RBC Hgb Hct MCV MCH MCHC RDW Plt Count Seg Neuts % (Manual) Lymphocytes % (Manual) Monocytes % (Manual) Nucleated RBC % Seg Neutrophils # Man Lymphocytes # (Manual) Monocytes # (Manual) INR APTT D-Dimer ABG pH 7.494 H POC ABG pCO2 POC ABG pO2 ABG pO2 107.3 H ABG HCO3 31.6 H ABG O2 Saturation ABG Base Excess 7.7 H ABG Hemoglobin 7.1 L ABG Oxyhemoglobin ABG Potassium ABG Chloride ABG Glucose Oxyhemoglobin Potassium Chloride 89.5 L Carbon Dioxide BUN Creatinine Glucose 121 H POC Glucose Lactic Acid Calcium Phosphorus Magnesium AST 359 H ALT 1434 H Alkaline Phosphatase Ammonia Troponin T Total Protein 5.7 L Albumin 3.5 L Triglycerides HDL Cholesterol Lipase Arterial Blood Glucose Arterial Blood Ionized Calcium Acetaminophen Crossmatch 03/19/21 03/19/21 03/19/21 12:05 17:52 23:23 WBC RBC Hgb Hct MCV MCH MCHC RDW Plt Count Seg Neuts % (Manual) Lymphocytes % (Manual) Monocytes % (Manual) Nucleated RBC % Seg Neutrophils # Man Lymphocytes # (Manual) Monocytes # (Manual) INR APTT D-Dimer ABG pH POC ABG pCO2 POC ABG pO2 ABG pO2 ABG HCO3 ABG O2 Saturation ABG Base Excess ABG Hemoglobin ABG Oxyhemoglobin ABG Potassium ABG Chloride ABG Glucose Oxyhemoglobin Potassium Chloride Carbon Dioxide BUN Creatinine Glucose POC Glucose 122 H 114 H 187 H Lactic Acid Calcium Phosphorus Magnesium AST ALT Alkaline Phosphatase Ammonia Troponin T Total Protein Albumin Triglycerides HDL Cholesterol Lipase Arterial Blood Glucose Arterial Blood Ionized Calcium Acetaminophen Crossmatch 03/19/21 03/20/21 03/20/21 Unknown 03:50 03:57 WBC RBC Hgb Hct MCV MCH MCHC RDW Plt Count Seg Neuts % (Manual) Lymphocytes % (Manual) Monocytes % (Manual) Nucleated RBC % Seg Neutrophils # Man Lymphocytes # (Manual) Monocytes # (Manual) INR APTT D-Dimer ABG pH 7.477 H POC ABG pCO2 POC ABG pO2 ABG pO2 67.9 L ABG HCO3 33.9 H ABG O2 Saturation ABG Base Excess 9.5 H ABG Hemoglobin 6.7 L ABG Oxyhemoglobin ABG Potassium ABG Chloride ABG Glucose Oxyhemoglobin Potassium Chloride Carbon Dioxide BUN Creatinine Glucose POC Glucose 247 H Lactic Acid Calcium Phosphorus Magnesium AST ALT Alkaline Phosphatase Ammonia Troponin T Total Protein Albumin Triglycerides HDL Cholesterol Lipase 12 L Arterial Blood Glucose Arterial Blood Ionized Calcium Acetaminophen Crossmatch 03/20/21 03/20/2121 04:18 04:18 10:16 WBC RBC 3.48 L Hgb 7.0 L Hct 25.3 L MCV 73 L MCH 20 L MCHC 28 L RDW 25.2 H Plt Count 541 H Seg Neuts % (Manual) Lymphocytes % (Manual) Monocytes % (Manual) Nucleated RBC % Seg Neutrophils # Man Lymphocytes # (Manual) Monocytes # (Manual) INR APTT D-Dimer ABG pH POC ABG pCO2 POC ABG pO2 ABG pO2 63.3 L ABG HCO3 34.0 H ABG O2 Saturation 90.0 L ABG Base Excess 7.9 H ABG Hemoglobin 10.5 L ABG Oxyhemoglobin ABG Potassium ABG Chloride ABG Glucose Oxyhemoglobin 88.1 L Potassium Chloride 91.6 L Carbon Dioxide BUN 22 H Creatinine Glucose 245 H POC Glucose Lactic Acid Calcium Phosphorus Magnesium AST 148 H ALT 1096 H Alkaline Phosphatase 133 H Ammonia Troponin T Total Protein Albumin 3.5 L Triglycerides HDL Cholesterol Lipase Arterial Blood Glucose Arterial Blood Ionized Calcium Acetaminophen Crossmatch 03/20/21 03/20/21 03/21/21 12:05 17:26 00:18 WBC RBC Hgb Hct MCV MCH MCHC RDW Plt Count Seg Neuts % (Manual) Lymphocytes % (Manual) Monocytes % (Manual) Nucleated RBC % Seg Neutrophils # Man Lymphocytes # (Manual) Monocytes # (Manual) INR APTT D-Dimer ABG pH POC ABG pCO2 POC ABG pO2 ABG pO2 ABG HCO3 ABG O2 Saturation ABG Base Excess ABG Hemoglobin ABG Oxyhemoglobin ABG Potassium ABG Chloride ABG Glucose Oxyhemoglobin Potassium Chloride Carbon Dioxide BUN Creatinine Glucose POC Glucose 226 H 215 H 323 H Lactic Acid Calcium Phosphorus Magnesium AST ALT Alkaline Phosphatase Ammonia Troponin T Total Protein Albumin Triglycerides HDL Cholesterol Lipase Arterial Blood Glucose Arterial Blood Ionized Calcium Acetaminophen Crossmatch 03/21/21 03/21/21 03/21/21 04:00 05:05 09:28 WBC 12.0 H RBC 3.42 L Hgb 6.8 L Hct 25.3 L MCV 74 L MCH 20 L MCHC 27 L RDW 25.1 H Plt Count 650 H Seg Neuts % (Manual) Lymphocytes % (Manual) Monocytes % (Manual) Nucleated RBC % Seg Neutrophils # Man Lymphocytes # (Manual) Monocytes # (Manual) INR APTT D-Dimer ABG pH 7.348 L POC ABG pCO2 POC ABG pO2 ABG pO2 56.3 L ABG HCO3 36.9 H ABG O2 Saturation 83.4 L ABG Base Excess 10.0 H ABG Hemoglobin 7.0 L ABG Oxyhemoglobin ABG Potassium ABG Chloride ABG Glucose Oxyhemoglobin 81.7 L Potassium Chloride Carbon Dioxide BUN Creatinine Glucose POC Glucose 311 H Lactic Acid Calcium Phosphorus Magnesium AST ALT Alkaline Phosphatase Ammonia Troponin T Total Protein Albumin Triglycerides HDL Cholesterol Lipase Arterial Blood Glucose Arterial Blood Ionized Calcium Acetaminophen Crossmatch 03/21/21 03/21/21 03/21/21 09:28 12:31 14:08 WBC RBC Hgb Hct MCV MCH MCHC RDW Plt Count Seg Neuts % (Manual) Lymphocytes % (Manual) Monocytes % (Manual) Nucleated RBC % Seg Neutrophils # Man Lymphocytes # (Manual) Monocytes # (Manual) INR APTT D-Dimer ABG pH POC ABG pCO2 POC ABG pO2 ABG pO2 ABG HCO3 ABG O2 Saturation ABG Base Excess ABG Hemoglobin ABG Oxyhemoglobin ABG Potassium ABG Chloride ABG Glucose Oxyhemoglobin Potassium 5.1 H D Chloride 94.4 L Carbon Dioxide 33 H BUN 32 H Creatinine Glucose 319 H POC Glucose 295 H Lactic Acid Calcium Phosphorus Magnesium 2.40 H AST ALT 697 H Alkaline Phosphatase 134 H Ammonia Troponin T Total Protein 5.8 L Albumin 3.4 L Triglycerides HDL Cholesterol Lipase Arterial Blood Glucose Arterial Blood Ionized Calcium Acetaminophen Crossmatch See Detail 03/22/21 03/22/21 03/22/21 00:14 04:30 04:39 WBC RBC Hgb Hct MCV MCH MCHC RDW Plt Count Seg Neuts % (Manual) Lymphocytes % (Manual) Monocytes % (Manual) Nucleated RBC % Seg Neutrophils # Man Lymphocytes # (Manual) Monocytes # (Manual) INR APTT D-Dimer ABG pH 7.310 L POC ABG pCO2 POC ABG pO2 ABG pO2 65.4 L ABG HCO3 38.3 H ABG O2 Saturation 90.8 L ABG Base Excess 10.9 H ABG Hemoglobin 6.4 L ABG Oxyhemoglobin ABG Potassium ABG Chloride ABG Glucose Oxyhemoglobin 88.7 L Potassium Chloride Carbon Dioxide BUN Creatinine Glucose POC Glucose 326 H Lactic Acid Calcium Phosphorus Magnesium AST ALT Alkaline Phosphatase Ammonia Troponin T Total Protein Albumin Triglycerides 189 H HDL Cholesterol Lipase Arterial Blood Glucose Arterial Blood Ionized Calcium Acetaminophen Crossmatch 03/22/21 03/22/21 03/22/21 04:39 04:39 09:45 WBC 12.8 H RBC 3.34 L Hgb 6.6 L Hct 24.5 L MCV 73 L MCH 20 L MCHC 27 L RDW 25.5 H Plt Count 644 H Seg Neuts % (Manual) Lymphocytes % (Manual) Monocytes % (Manual) Nucleated RBC % Seg Neutrophils # Man Lymphocytes # (Manual) Monocytes # (Manual) INR APTT D-Dimer ABG pH POC ABG pCO2 65.7 H POC ABG pO2 59.7 L ABG pO2 ABG HCO3 ABG O2 Saturation ABG Base Excess ABG Hemoglobin 8.0 L ABG Oxyhemoglobin 86.3 L ABG Potassium 4.7 H ABG Chloride 94.0 L ABG Glucose 208 H Oxyhemoglobin Potassium 5.3 H Chloride 94.6 L Carbon Dioxide 34 H BUN 33 H Creatinine Glucose 291 H POC Glucose Lactic Acid Calcium Phosphorus Magnesium AST ALT Alkaline Phosphatase Ammonia Troponin T Total Protein Albumin Triglycerides HDL Cholesterol Lipase Arterial Blood Glucose 208 H Arterial Blood Ionized Calcium Acetaminophen Crossmatch 03/22/21 03/22/21 03/23/21 21:33 23:58 04:42 WBC 14.3 H RBC 3.63 L Hgb 7.6 L Hct 27.0 L MCV 74 L MCH 21 L MCHC 28 L RDW 23.1 H Plt Count 567 H Seg Neuts % (Manual) Lymphocytes % (Manual) Monocytes % (Manual) Nucleated RBC % Seg Neutrophils # Man Lymphocytes # (Manual) Monocytes # (Manual) INR APTT D-Dimer ABG pH POC ABG pCO2 POC ABG pO2 ABG pO2 ABG HCO3 ABG O2 Saturation ABG Base Excess ABG Hemoglobin ABG Oxyhemoglobin ABG Potassium ABG Chloride ABG Glucose Oxyhemoglobin Potassium Chloride Carbon Dioxide BUN Creatinine Glucose POC Glucose 170 H 156 H Lactic Acid Calcium Phosphorus Magnesium AST ALT Alkaline Phosphatase Ammonia Troponin T Total Protein Albumin Triglycerides HDL Cholesterol Lipase Arterial Blood Glucose Arterial Blood Ionized Calcium Acetaminophen Crossmatch 03/23/21 03/23/21 03/23/21 04:42 04:50 22:25 WBC RBC Hgb Hct MCV MCH MCHC RDW Plt Count Seg Neuts % (Manual) Lymphocytes % (Manual) Monocytes % (Manual) Nucleated RBC % Seg Neutrophils # Man Lymphocytes # (Manual) Monocytes # (Manual) INR APTT D-Dimer ABG pH POC ABG pCO2 POC ABG pO2 ABG pO2 70.7 L ABG HCO3 41.7 H ABG O2 Saturation ABG Base Excess 15.2 H ABG Hemoglobin 5.6 L ABG Oxyhemoglobin ABG Potassium ABG Chloride ABG Glucose Oxyhemoglobin Potassium Chloride 94.6 L Carbon Dioxide 37 H BUN 27 H Creatinine Glucose 311 H POC Glucose 295 H Lactic Acid Calcium Phosphorus Magnesium AST ALT Alkaline Phosphatase Ammonia Troponin T Total Protein Albumin Triglycerides HDL Cholesterol Lipase Arterial Blood Glucose Arterial Blood Ionized Calcium Acetaminophen Crossmatch 03/23/21 03/24/21 03/24/21 23:13 05:13 07:59 WBC RBC Hgb Hct MCV MCH MCHC RDW Plt Count Seg Neuts % (Manual) Lymphocytes % (Manual) Monocytes % (Manual) Nucleated RBC % Seg Neutrophils # Man Lymphocytes # (Manual) Monocytes # (Manual) INR APTT D-Dimer ABG pH POC ABG pCO2 POC ABG pO2 ABG pO2 ABG HCO3 ABG O2 Saturation ABG Base Excess ABG Hemoglobin ABG Oxyhemoglobin ABG Potassium ABG Chloride ABG Glucose Oxyhemoglobin Potassium Chloride Carbon Dioxide BUN Creatinine Glucose POC Glucose 336 H 303 H 333 H Lactic Acid Calcium Phosphorus Magnesium AST ALT Alkaline Phosphatase Ammonia Troponin T Total Protein Albumin Triglycerides HDL Cholesterol Lipase Arterial Blood Glucose Arterial Blood Ionized Calcium Acetaminophen Crossmatch 03/24/21 03/24/21 03/24/21 08:03 08:03 08:57 WBC 12.7 H RBC 3.48 L Hgb 7.3 L Hct 26.3 L MCV 76 L MCH 21 L MCHC 28 L RDW 24.1 H Plt Count 499 H Seg Neuts % (Manual) Lymphocytes % (Manual) 1.0 L Monocytes % (Manual) 16.0 H Nucleated RBC % 11.0 H Seg Neutrophils # Man 8.1 H Lymphocytes # (Manual) 0.1 L Monocytes # (Manual) 2.1 H INR APTT D-Dimer ABG pH 7.477 H POC ABG pCO2 56.9 H POC ABG pO2 ABG pO2 ABG HCO3 ABG O2 Saturation ABG Base Excess ABG Hemoglobin 8.0 L ABG Oxyhemoglobin ABG Potassium ABG Chloride 93.0 L ABG Glucose 328 H Oxyhemoglobin Potassium Chloride 94.4 L Carbon Dioxide 38 H BUN 26 H Creatinine 0.5 L Glucose 348 H POC Glucose Lactic Acid Calcium Phosphorus Magnesium AST ALT Alkaline Phosphatase Ammonia Troponin T Total Protein Albumin Triglycerides HDL Cholesterol Lipase Arterial Blood Glucose 328 H Arterial Blood Ionized Calcium 4.5 L Acetaminophen Crossmatch 03/24/21 03/24/21 03/25/21 12:14 17:45 04:00 WBC 15.8 H RBC Hgb 7.5 L Hct 27.4 L MCV 75 L MCH 21 L MCHC 28 L RDW 24.0 H Plt Count 576 H Seg Neuts % (Manual) Lymphocytes % (Manual) Monocytes % (Manual) Nucleated RBC % Seg Neutrophils # Man Lymphocytes # (Manual) Monocytes # (Manual) INR APTT D-Dimer ABG pH POC ABG pCO2 POC ABG pO2 ABG pO2 ABG HCO3 ABG O2 Saturation ABG Base Excess ABG Hemoglobin ABG Oxyhemoglobin ABG Potassium ABG Chloride ABG Glucose Oxyhemoglobin Potassium Chloride Carbon Dioxide BUN Creatinine Glucose POC Glucose 315 H 324 H Lactic Acid Calcium Phosphorus Magnesium AST ALT Alkaline Phosphatase Ammonia Troponin T Total Protein Albumin Triglycerides HDL Cholesterol Lipase Arterial Blood Glucose Arterial Blood Ionized Calcium Acetaminophen Crossmatch 03/25/21 03/25/21 03/25/21 07:52 16:37 17:38 WBC RBC Hgb Hct MCV MCH MCHC RDW Plt Count Seg Neuts % (Manual) Lymphocytes % (Manual) Monocytes % (Manual) Nucleated RBC % Seg Neutrophils # Man Lymphocytes # (Manual) Monocytes # (Manual) INR APTT D-Dimer ABG pH POC ABG pCO2 POC ABG pO2 ABG pO2 ABG HCO3 ABG O2 Saturation ABG Base Excess ABG Hemoglobin ABG Oxyhemoglobin ABG Potassium ABG Chloride ABG Glucose Oxyhemoglobin Potassium Chloride 95.9 L Carbon Dioxide 33 H BUN 24 H Creatinine 0.4 L Glucose 289 H POC Glucose 321 H 295 H Lactic Acid Calcium Phosphorus Magnesium AST ALT Alkaline Phosphatase Ammonia Troponin T Total Protein Albumin Triglycerides HDL Cholesterol Lipase Arterial Blood Glucose Arterial Blood Ionized Calcium Acetaminophen Crossmatch 03/25/21 03/26/21 03/26/21 23:27 05:07 05:35 WBC 20.0 H RBC 3.37 L Hgb 7.0 L Hct 25.2 L MCV 75 L MCH 21 L MCHC 28 L RDW 24.0 H Plt Count 544 H Seg Neuts % (Manual) 72.0 H Lymphocytes % (Manual) 6.0 L Monocytes % (Manual) 8.0 H Nucleated RBC % Seg Neutrophils # Man 14.4 H Lymphocytes # (Manual) Monocytes # (Manual) 1.6 H INR APTT D-Dimer ABG pH POC ABG pCO2 POC ABG pO2 ABG pO2 ABG HCO3 ABG O2 Saturation ABG Base Excess ABG Hemoglobin ABG Oxyhemoglobin ABG Potassium ABG Chloride ABG Glucose Oxyhemoglobin Potassium Chloride Carbon Dioxide BUN Creatinine Glucose POC Glucose 231 H 200 H Lactic Acid Calcium Phosphorus Magnesium AST ALT Alkaline Phosphatase Ammonia Troponin T Total Protein Albumin Triglycerides HDL Cholesterol Lipase Arterial Blood Glucose Arterial Blood Ionized Calcium Acetaminophen Crossmatch 03/26/21 03/26/21 03/26/21 05:35 10:33 12:12 WBC RBC Hgb Hct MCV MCH MCHC RDW Plt Count Seg Neuts % (Manual) Lymphocytes % (Manual) Monocytes % (Manual) Nucleated RBC % Seg Neutrophils # Man Lymphocytes # (Manual) Monocytes # (Manual) INR APTT D-Dimer ABG pH POC ABG pCO2 POC ABG pO2 ABG pO2 ABG HCO3 ABG O2 Saturation ABG Base Excess ABG Hemoglobin ABG Oxyhemoglobin ABG Potassium ABG Chloride ABG Glucose Oxyhemoglobin Potassium 5.9 H D Chloride 91.9 L Carbon Dioxide 33 H BUN 20 H Creatinine 0.4 L Glucose 197 H POC Glucose 132 H 176 H Lactic Acid Calcium Phosphorus Magnesium AST ALT 169 H Alkaline Phosphatase 138 H Ammonia Troponin T Total Protein 5.5 L Albumin 3.2 L Triglycerides HDL Cholesterol Lipase Arterial Blood Glucose Arterial Blood Ionized Calcium Acetaminophen Crossmatch 03/26/21 03/26/21 03/26/21 16:50 18:06 22:19 WBC RBC Hgb Hct MCV MCH MCHC RDW Plt Count Seg Neuts % (Manual) Lymphocytes % (Manual) Monocytes % (Manual) Nucleated RBC % Seg Neutrophils # Man Lymphocytes # (Manual) Monocytes # (Manual) INR APTT D-Dimer ABG pH POC ABG pCO2 POC ABG pO2 ABG pO2 ABG HCO3 ABG O2 Saturation ABG Base Excess ABG Hemoglobin ABG Oxyhemoglobin ABG Potassium ABG Chloride ABG Glucose Oxyhemoglobin Potassium 5.2 H Chloride 91.7 L Carbon Dioxide 38 H BUN 19 H Creatinine 0.4 L Glucose 260 H POC Glucose 248 H 168 H Lactic Acid Calcium Phosphorus Magnesium AST ALT Alkaline Phosphatase Ammonia Troponin T Total Protein Albumin Triglycerides HDL Cholesterol Lipase Arterial Blood Glucose Arterial Blood Ionized Calcium Acetaminophen Crossmatch 03/27/21 03/27/2103/27/22 01:02 01:32 04:15 WBC 21.4 H RBC 3.45 L Hgb 6.9 L Hct 26.2 L MCV 76 L MCH 20 L MCHC 27 L RDW 24.5 H Plt Count 500 H Seg Neuts % (Manual) Lymphocytes % (Manual) Monocytes % (Manual) Nucleated RBC % Seg Neutrophils # Man Lymphocytes # (Manual) Monocytes # (Manual) INR APTT D-Dimer ABG pH POC ABG pCO2 POC ABG pO2 ABG pO2 ABG HCO3 ABG O2 Saturation ABG Base Excess ABG Hemoglobin ABG Oxyhemoglobin ABG Potassium ABG Chloride ABG Glucose Oxyhemoglobin Potassium Chloride Carbon Dioxide BUN Creatinine Glucose POC Glucose 219 H 221 H Lactic Acid Calcium Phosphorus Magnesium AST ALT Alkaline Phosphatase Ammonia Troponin T Total Protein Albumin Triglycerides HDL Cholesterol Lipase Arterial Blood Glucose Arterial Blood Ionized Calcium Acetaminophen Crossmatch 03/27/21 03/27/21 03/27/21 04:15 06:37 11:21 WBC RBC Hgb Hct MCV MCH MCHC RDW Plt Count Seg Neuts % (Manual) Lymphocytes % (Manual) Monocytes % (Manual) Nucleated RBC % Seg Neutrophils # Man Lymphocytes # (Manual) Monocytes # (Manual) INR APTT D-Dimer ABG pH POC ABG pCO2 POC ABG pO2 ABG pO2 ABG HCO3 ABG O2 Saturation ABG Base Excess ABG Hemoglobin ABG Oxyhemoglobin ABG Potassium ABG Chloride ABG Glucose Oxyhemoglobin Potassium 5.3 H Chloride 94.4 L Carbon Dioxide 35 H BUN 20 H Creatinine 0.4 L Glucose 310 H POC Glucose 312 H 273 H Lactic Acid Calcium 8.3 L Phosphorus 4.60 H D Magnesium AST ALT Alkaline Phosphatase Ammonia Troponin T Total Protein Albumin Triglycerides HDL Cholesterol Lipase Arterial Blood Glucose Arterial Blood Ionized Calcium Acetaminophen Crossmatch 03/27/21 03/27/21 03/28/21 16:14 21:21 00:16 WBC RBC Hgb Hct MCV MCH MCHC RDW Plt Count Seg Neuts % (Manual) Lymphocytes % (Manual) Monocytes % (Manual) Nucleated RBC % Seg Neutrophils # Man Lymphocytes # (Manual) Monocytes # (Manual) INR APTT D-Dimer ABG pH POC ABG pCO2 POC ABG pO2 ABG pO2 ABG HCO3 ABG O2 Saturation ABG Base Excess ABG Hemoglobin ABG Oxyhemoglobin ABG Potassium ABG Chloride ABG Glucose Oxyhemoglobin Potassium Chloride Carbon Dioxide BUN Creatinine Glucose POC Glucose 241 H 179 H 160 H Lactic Acid Calcium Phosphorus Magnesium AST ALT Alkaline Phosphatase Ammonia Troponin T Total Protein Albumin Triglycerides HDL Cholesterol Lipase Arterial Blood Glucose Arterial Blood Ionized Calcium Acetaminophen Crossmatch 03/28/21 03/28/21 03/28/21 04:00 04:00 05:41 WBC 27.1 H RBC 3.46 L Hgb 7.1 L Hct 26.1 L MCV 76 L MCH 20 L MCHC 27 L RDW 24.0 H Plt Count 541 H Seg Neuts % (Manual) Lymphocytes % (Manual) Monocytes % (Manual) Nucleated RBC % Seg Neutrophils # Man Lymphocytes # (Manual) Monocytes # (Manual) INR APTT D-Dimer ABG pH POC ABG pCO2 POC ABG pO2 ABG pO2 ABG HCO3 ABG O2 Saturation ABG Base Excess ABG Hemoglobin ABG Oxyhemoglobin ABG Potassium ABG Chloride ABG Glucose Oxyhemoglobin Potassium Chloride 95.7 L Carbon Dioxide 36 H BUN 23 H Creatinine 0.4 L Glucose 295 H POC Glucose 279 H Lactic Acid Calcium Phosphorus Magnesium AST ALT Alkaline Phosphatase Ammonia Troponin T Total Protein Albumin Triglycerides HDL Cholesterol Lipase Arterial Blood Glucose Arterial Blood Ionized Calcium Acetaminophen Crossmatch 03/28/21 03/28/21 03/28/21 11:50 16:45 23:15 WBC RBC Hgb Hct MCV MCH MCHC RDW Plt Count Seg Neuts % (Manual) Lymphocytes % (Manual) Monocytes % (Manual) Nucleated RBC % Seg Neutrophils # Man Lymphocytes # (Manual) Monocytes # (Manual) INR APTT D-Dimer ABG pH POC ABG pCO2 POC ABG pO2 ABG pO2 ABG HCO3 ABG O2 Saturation ABG Base Excess ABG Hemoglobin ABG Oxyhemoglobin ABG Potassium ABG Chloride ABG Glucose Oxyhemoglobin Potassium Chloride Carbon Dioxide BUN Creatinine Glucose POC Glucose 233 H 240 H 189 H Lactic Acid Calcium Phosphorus Magnesium AST ALT Alkaline Phosphatase Ammonia Troponin T Total Protein Albumin Triglycerides HDL Cholesterol Lipase Arterial Blood Glucose Arterial Blood Ionized Calcium Acetaminophen Crossmatch 03/29/21 03/29/21 03/29/21 04:35 04:35 05:05 WBC 29.6 H RBC 3.18 L Hgb 6.7 L Hct 24.2 L MCV 76 L MCH 21 L MCHC 28 L RDW 24.0 H Plt Count 678 H Seg Neuts % (Manual) Lymphocytes % (Manual) Monocytes % (Manual) Nucleated RBC % Seg Neutrophils # Man Lymphocytes # (Manual) Monocytes # (Manual) INR APTT D-Dimer ABG pH POC ABG pCO2 POC ABG pO2 ABG pO2 ABG HCO3 ABG O2 Saturation ABG Base Excess ABG Hemoglobin ABG Oxyhemoglobin ABG Potassium ABG Chloride ABG Glucose Oxyhemoglobin Potassium Chloride 95.4 L Carbon Dioxide 37 H BUN 22 H Creatinine 0.4 L Glucose 194 H POC Glucose 195 H Lactic Acid Calcium Phosphorus Magnesium AST ALT Alkaline Phosphatase Ammonia Troponin T Total Protein Albumin Triglycerides HDL Cholesterol Lipase Arterial Blood Glucose Arterial Blood Ionized Calcium Acetaminophen Crossmatch
[2021-03-29] MEDS ORDERED: FUROSEMIDE 20 MG/2 ML INJ IV SCH (09:30)
[2021-03-29] MEDS ORDERED: EPINEPHrine RACEMIC 2.25% 0.5ML NEBU IH ONE (09:57)
[2021-03-29 10:07] LABS: Creatine Kinase MB 1.5 ng/mL (0.0-4.0)
[2021-03-29] MEDS: methylPREDNISolone Sod Succinate 40 MG/1 ML INJ IV SCH (10:14)
[2021-03-29] MEDS: METOPROLOL TARTRATE 25 MG TAB PO SCH ×2 (10:20→21:09)
[2021-03-29] MEDS: FAMOTIDINE 20 MG TAB FEEDTUBE SCH ×2 (10:20→21:09)
[2021-03-29] MEDS: busPIRone 5 MG TAB PO SCH ×2 (10:20→21:09)
[2021-03-29] MEDS: DOCUSATE SODIUM 100 MG/10 ML ORAL LIQD PO SCH ×2 (10:20→21:08)
[2021-03-29] MEDS: SENNOSIDES/DOCUSATE SODIUM 8.6/50 MG TAB FEEDTUBE SCH ×2 (10:20→21:09)
[2021-03-29] MEDS ORDERED: hydrALAZINE 20 MG/1 ML INJ IV PRN (10:56)
--- NOTE | 2021-03-29 10:56 | Progress Note ---
Assessment and Plan - Patient Problems (1) Respiratory failure Current Visit: Yes Status: Acute Plan to address problem: Patient with long history of severe, oxygen dependent COPD, presented with respiratory failure due to COPD exacerbation. Sinus tachycardia on presentation is now resolved. Continue supportive management and current treatment of COPD exacerbation. Subjective Date of service: 03/29/21 Principal diagnosis: Atrial fibrillation with RVR, respiratory failure Interval history: Patient extubated herself today, currently awake, on BiPAP. Stable sinus rhythm on front desk monitor. Blood pressure is elevated as 170 systolic. Objective Vital Signs Temp Pulse Pulse Pulse Resp Resp BP 03/29/21 09:30 80 16 130/95 03/29/21 09:00 87 15 163/92 03/29/21 08:30 89 19 156/114 03/29/21 08:00 123 H 143 H 22 165/78 03/29/21 07:56 145 H 165/78 03/29/21 07:53 132 H 27 H 165/78 03/29/21 07:30 119 H 20 165/78 03/29/21 07:11 98.0 F 03/29/21 07:00 84 16 158/81 03/29/21 06:30 71 18 158/81 03/29/21 06:00 75 14 122/63 03/29/21 05:30 81 13 122/63 03/29/21 05:00 77 18 134/73 03/29/21 04:30 79 16 134/73 03/29/21 04:11 85 134/73 03/29/21 04:00 97.5 F L 78 85 18 135/78 03/29/21 03:30 79 15 135/78 03/29/21 03:00 86 13 99/81 03/29/21 02:30 90 15 98/73 03/29/21 02:00 77 15 108/68 03/29/21 01:30 66 18 93/56 03/29/21 01:00 68 17 93/56 03/29/21 00:30 72 17 102/63 03/29/21 00:00 97.8 F 68 68 18 118/92 03/28/21 23:57 72 118/92 03/28/21 23:14 73 18 113/60 03/28/21 23:00 73 18 141/65 03/28/21 22:30 78 16 153/88 03/28/21 22:00 97 H 17 173/76 03/28/21 21:55 81 173/76 03/28/21 21:30 96 H 18 114/87 03/28/21 21:00 98 H 18 109/65 03/28/21 20:30 80 19 106/74 03/28/21 20:00 98.7 F 80 80 19 03/28/21 19:30 92 H 16 99/64 03/28/21 19:13 96 H 86 18 99/64 03/28/21 19:00 95 H 11 L 177/93 03/28/21 18:00 102 H 19 90/76 03/28/21 17:46 109 H 18 126/100 03/28/21 17:30 92 H 17 126/100 03/28/21 17:16 83 18 130/105 03/28/21 17:00 105 H 20 183/101 03/28/21 16:46 99 H 20 183/101 03/28/21 16:30 83 20 115/91 03/28/21 16:16 82 19 115/91 03/28/21 16:00 98.0 F 82 83 18 177/106 03/28/21 15:46 83 19 177/106 03/28/21 15:30 90 17 177/106 03/28/21 15:16 89 19 159/99 03/28/21 15:00 98 H 17 171/122 03/28/21 14:46 92 H 19 171/122 03/28/21 14:38 70 171/122 03/28/21 14:30 107 H 25 H 171/122 03/28/21 14:16 95 H 23 169/95 03/28/21 14:00 95 H 21 134/87 03/28/21 13:46 81 17 134/87 03/28/21 13:30 86 20 137/77 03/28/21 13:16 80 20 137/77 03/28/21 13:00 73 15 137/77 03/28/21 12:46 77 15 146/74 03/28/21 12:30 68 14 146/74 03/28/21 12:16 77 11 L 134/68 03/28/21 12:09 97.6 F 03/28/21 12:00 67 63 10 L 134/68 03/28/21 11:46 72 10 L 139/77 03/28/21 11:30 70 11 L 139/77 03/28/21 11:16 65 14 137/85 03/28/21 11:00 72 16 110/71 Pulse Ox 03/29/21 09:30 94 03/29/21 09:00 100 03/29/21 08:30 100 03/29/21 08:00 100 03/29/21 07:56 03/29/21 07:53 100 03/29/21 07:30 97 03/29/21 07:11 03/29/21 07:00 100 03/29/21 06:30 100 03/29/21 06:00 100 03/29/21 05:30 100 03/29/21 05:00 100 03/29/21 04:30 100 03/29/21 04:11 100 03/29/21 04:00 99 03/29/21 03:30 100 03/29/21 03:00 03/29/21 02:30 03/29/21 02:00 100 03/29/21 01:30 100 03/29/21 01:00 100 03/29/21 00:30 100 03/29/21 00:00 100 03/28/21 23:57 100 03/28/21 23:14 100 03/28/21 23:00 100 03/28/21 22:30 100 03/28/21 22:00 100 03/28/21 21:55 03/28/21 21:30 99 03/28/21 21:00 100 03/28/21 20:30 100 03/28/21 20:00 100 03/28/21 19:30 98 03/28/21 19:13 100 03/28/21 19:00 100 03/28/21 18:00 98 03/28/21 17:46 96 03/28/21 17:30 100 03/28/21 17:16 100 03/28/21 17:00 99 03/28/21 16:46 98 03/28/21 16:30 99 03/28/21 16:16 100 03/28/21 16:00 100 03/28/21 15:46 99 03/28/21 15:30 99 03/28/21 15:16 100 03/28/21 15:00 98 03/28/21 14:46 99 03/28/21 14:38 98 03/28/21 14:30 94 03/28/21 14:16 97 03/28/21 14:00 100 03/28/21 13:46 100 03/28/21 13:30 100 03/28/21 13:16 100 03/28/21 13:00 99 03/28/21 12:46 100 03/28/21 12:30 100 03/28/21 12:16 100 03/28/21 12:09 03/28/21 12:00 100 03/28/21 11:46 100 03/28/21 11:30 100 03/28/21 11:16 100 03/28/21 11:00 100 - Physical Examination General: Other (Self extubated, mild respiratory distress on BiPAP) HEENT: Positive: PERRL Neck: Positive: neck supple Cardiac: Positive: Reg Rate and Rhythm Lungs: Positive: Decreased Breath Sounds Neuro: Positive: Grossly Intact Abdomen: Positive: Soft Skin: Positive: Clear Extremities: Absent: edema - Labs and Meds Cardiac Enzymes 03/29/21 Range/Units 09:24 CK-MB (CK-2) 1.5 (0.0-4.0) ng/mL CBC 03/29/21 Range/Units 04:35 WBC 29.6 H (4.5-11.0) K/mm3 RBC 3.18 L (3.65-5.03) M/mm3 Hgb 6.7 L (10.1-14.3) gm/dl Hct 24.2 L (30.3-42.9) % Plt Count 678 H (140-440) K/mm3 Comprehensive Metabolic Panel 03/29/21 Range/Units 04:35 Sodium 140 (137-145) mmol/L Potassium 4.4 (3.6-5.0) mmol/L Chloride 95.4 L (98-107) mmol/L Carbon Dioxide 37 H (22-30) mmol/L BUN 22 H (7-17) mg/dL Creatinine 0.4 L (0.6-1.2) mg/dL Glucose 194 H (65-100) mg/dL Calcium 8.7 (8.4-10.2) mg/dL
--- NOTE | 2021-03-29 14:42 | Progress Note ---
Assessment and Plan Assessment and plan: This is a 50-year-old female with COPD with oxygen dependence, DM, severe anxiety, GERD, HLD, HTN and PAGE admitted with SVT and hypertensive urgency. Hospital Course to Date: This is a 60-year-old female with COPD with oxygen dependence currently with palliative care, DM, former nicotine abuse, severe anxiety, GERD, HLD, HTN and PAGE presented to emergency department on 03/17 via EMS with complaints of shortness of breath. On arrival of EMS patient was found to be in SVT with a heart rate of about 200 and blood pressure to be quite elevated with systolic in 200s. She was given 6 mg of adenosine without significant changes subsequently given 12 mg of adenosine with improvement of her heart rate. Upon arrival to the emergency department patient was found to be in atrial fibrillation with RVR and dyspneic. Work-up in the emergency department revealed leukocytosis, lactic acidosis, transaminitis, hypoalbuminemia and a troponin leak. CXR, CT a chest and CT head were unremarkable. Patient was admitted to the hospitalist service with consults to [facility] and cardiology for further work-up of acute on chronic respiratory failure, SVT and hypertensive urgency. 03/18/2021: Patient is intubated and on vent support, Patient is in sinus tachycardia 03/19: COVID-19 PCR negative, remains on ventilatory support, Versed drip changed to propofol. No acute events reported overnight. Tracheal aspirate with few gram-positive Cocci. This afternoon, patient went in to the 150s, giving 500 mL NS bolus and fentanyl push to see if it pain related. If persists then will order prn Ativan per Dr. Gage recommendation. 03/20: Restarted on home metoprolol and abdominal ultrasound showed right hydronephrosis. Abd US shows right hydroureteronephrosis and will obtain a de dicated renal US. She seems to more comfortable on propofol and fentanyl 03/21: Patient's FiO2 had to be decreased overnight due to hypoxia and tachycardia. Hyperkalemia noted and given Kayexalate. 1 unit PRBC for hemoglobin 6.8. [facility] plans to extubate tomorrow. Increase in Lantus. 03/22: Transfuse one unit prbc, failed SBT in the AM d/t hypertension. [facility] extubated the patient but she was reintubated within [address] head ordered and pending read. Given kionex x2 for hyperkalemia 03/23: This morning patient was only on Precedex drip and overnight she had agitation, hypertension and tachycardia. RN instructed to place fentanyl drip. Increase in Lantus for better glucose control. Will remove Wallis today. 03/24/2021: no acute events reported overnight. Patient remains intubated and is currently on fentanyl and Precedex. Increase in Lantus due to hyperglycemia. 03/25: no acute events overnight. increase in lantus and decreased steroids today. 03/26: Remains on the vent. Failed SAT/SBT trials this am due to increased HR, in the 150s. Hyperkalemic this am s/p X1 dose of kayaxalate, repeat BMP ordered. Fever overnight with leukocytosis, patient is on steroids, will panculture for now, hold on IV ABx for now 03/27: Patient failed SBT trial this am, HR increased in the 150s, most likely due to her severe anxiety. Patient is back on low dose sedation, continue PRN Xanax. Hyperkalemia still slightly high, X1dose of kayaxalate ordered, repeat lab in the am. 03/28: LIDIA overnight. Remains on precedex and fentanyl gtt, with PRN Xanax for anxiety. Plan for possible SBT again today, per CCM if still not tolerating SBT patient will eventually need a trach 03/29: Patient self-extubated this am, tolerating Bipap SPO2 above 92%. Patient still appears anxious, d/w CCM plan to keep patient the Bipap throughout the day. Will also restart preced gtt for anxiety. Keep patient NPO for now while on continuous Bipap. Low H&H noted, order placed for 1unit of PRBCs, repeat labs or dered. Assessment and Plan #Neuro:Severe Anxiety #H/o Anxiety and depression -Will continue precedex gtt for now, while patient is on Bipap -Tritrate a RASS goal 0 to -1 -PO Buspar and Xanax are on hold for now, patient is NPO -Cymbalta on hold, can not be crush -Avoid delirium -Avoid Analgesic/opiate at this time -Maintenance of sleep-wake cycle #Cardio:A. fib with RVR #SVT # Hypertensive emergency-resolved -Presented with high BP and SVT, HR in 200 -s/p X2 doses of adenosine in the ED -Echocardiogram 10/2020 showed EF of 50 to 55% -Short periods of SVT and c/o CP this am post self-extubation, self resolved once patient calmed down -EKG with ST, Troponin are neg -Cardiology consulted, appreciate recommendations -Continue metoprolol BID -Continue AC- Heparin SubQ -Continue blood pressure monitor per protocol -PRN Hydralazine added for SBP greater than 160 #Resp:Acute on chronic respiratory failure #H/o COPD and PAGE -Intubated on 03/17 , extubated and reintubated on 03/22 -Self-extubated this am 03/29 -Now on Bipap- 100%, 09/11, rate of 16; SPO2 above 92% -CCM consulted, appreciate recommendations -Continue IV Steroids and Nebs per CCM -Continue to wean steroids -VAP bundle addressed -Aspiration precaution HOB above 30 -PRN ABG and CXR per CCm -Continue SPO2 monitoring for SPO2 goal above 92% #GI: Transaminitis-improving -Presented with elevated LFTs -LFTs downtrending, continue to trend LFts -Enteral nutrition on hold -Keep patient NPO for now while on Bipap -NTR on consulted -Continue PPI -Continue BR #:Hyperkalemia-improved -K normalized, renal function remains stable -Continue to Trend BMP -Strict intake and output -Avoid nephrotoxic medications; Renally dose medications -Monitor and replace electrolytes as needed #Heme:Microcytic anemia -s/p 1 unit PRBCs -No s/s of any active bleeding -Low H&H this am, 1unit of PRBcs ordered -Continue to Trend CBC -Transfuse for hbg <7 -SCDs to BLE while in bed -Continue AC- Heparin SubQ #ID:Leukocytosis #Possible Bilateral Pneumonia -Imagings with bibasilar opacities and Pleural effusion -02/25 tracheal aspirate with few gram-positive cocci -Patient completed IV Abx course -Afebrile overnight -WBCs is trending up, however patient is on steroids -Continue to wean steroids -Blood cultures and sputum culture pending -Hold on IV ABx for now -Trend WBC and fever curve -Continue to F/U on B.cult -Daily CBC monitor -Consider ID consult if febrile or/and if leukocytosis persist #Endo: Hyperglycemia -Continue SSI q6hrs -Continue Basal insulin for now -Since patient is NPO, depends of patient BG this afternoon. Consider half the dosage for now -Avoid hypoglycemia The high probability of a clinically significant, sudden or life threatening deterioration of the [pulm/cv/Endo] system(s) required my full and direct attention, intervention and personal management. The aggregate critical care time was [60] minutes. This time is in addition to time spent performing reported procedures but includes the following: [x] Data Review and interpretation [x] Patient assessment and monitoring of vital signs [x] Documentation [x] Medication orders and management Disposition Plan: ICU Total Time Spent with Patient (Minutes): 60 History Interval history: Patient seen and examined at the bedside. Self-extubated this am. Per RN post extubation patient was in SVT on the monitor HR in the 140-150s, hypertensive, and c/o of CP. Stat EKG perform showing ST and troponin are normal. Patient is now calm, AAO, following commands. SR on the monitor, HR in the 80, on the Bipap SPO2 above 92%. Hospitalist Physical - Constitutional Vitals: Temp Pulse Resp BP Pulse Ox 98.2 F 77 15 113/77 100 03/29/21 13:48 03/29/21 13:48 03/29/21 13:48 03/29/21 13:48 03/29/21 13:48 General appearance: Present: no acute distress, obese - EENT Eyes: Present: PERRL, EOM intact ENT: hearing intact - Neck Neck: Present: normal ROM - Respiratory Respiratory effort: normal Respiratory: bilateral: diminished - Cardiovascular Rhythm: regular Heart Sounds: Present: S1 & S2 - Extremities Extremities: no ischemia, pulses intact, pulses symmetrical Extremity abnormal: edema - Peripheral Assessment Generalized Edema Type: Non-pitting Edema Degree: 1+ Capillary Refill: < 3 seconds Skin Temperature: Warm Peripheral Pulses: within normal limits - Abdominal General gastrointestinal: soft, non-tender, normal bowel sounds - Integumentary Integumentary: Present: warm, dry - Psychiatric Psychiatric: appropriate mood/affect, cooperative, depressed - Neurologic Neurologic: CNII-XII intact, moves all extremities - Allied Health Allied health notes reviewed: nursing HEART Score - HEART Score Troponin: Troponin T < 0.010 ng/mL (0.00-0.029) 03/29/21 09:24 Results - Labs CBC & Chem 7: 03/29/21 04:35 03/29/21 04:35 Labs: Laboratory Last Values WBC 29.6 K/mm3 (4.5-11.0) H 03/29/21 04:35 RBC 3.18 M/mm3 (3.65-5.03) L 03/29/21 04:35 Hgb 6.7 gm/dl (10.1-14.3) L 03/29/21 04:35 Hct 24.2 % (30.3-42.9) L 03/29/21 04:35 MCV 76 fl (79-97) L 03/29/21 04:35 MCH 21 pg (28-32) L 03/29/21 04:35 MCHC 28 % (30-34) L 03/29/21 04:35 RDW 24.0 % (13.2-15.2) H 03/29/21 04:35 Plt Count 678 K/mm3 (140-440) H 03/29/21 04:35 [place] % (Auto) Head Trimmer 03/24/21 08:03 Add Manual Diff Complete 03/26/21 05:35 Total Counted 100 03/26/21 05:35 Seg Neuts % (Manual) 72.0 % (40.0-70.0) H 03/26/21 05:35 Band Neutrophils % 5.0 % 03/26/21 05:35 Lymphocytes % (Manual) 6.0 % (13.4-35.0) L 03/26/21 05:35 Reactive Lymphs % (Man) 5.0 % 03/19/21 04:59 Monocytes % (Manual) 8.0 % (0.0-7.3) H 03/26/21 05:35 Metamyelocytes % 3.0 % 03/26/21 05:35 Myelocytes % 5.0 % 03/26/21 05:35 Promyelocytes % 1.0 % 03/26/21 05:35 Nucleated RBC % Not Reportable 03/26/21 05:35 Seg Neutrophils # Man 14.4 K/mm3 (1.8-7.7) H 03/26/21 05:35 Band Neutrophils # 1.0 K/mm3 03/26/21 05:35 Lymphocytes # (Manual) 1.2 K/mm3 (1.2-5.4) 03/26/21 05:35 Abs React Lymphs (Man) 0.0 K/mm3 03/26/21 05:35 Monocytes # (Manual) 1.6 K/mm3 (0.0-0.8) H 03/26/21 05:35 Eosinophils # (Manual) 0.0 K/mm3 (0.0-0.4) 03/26/21 05:35 Basophils # (Manual) 0.0 K/mm3 (0.0-0.1) 03/26/21 05:35 Metamyelocytes # 0.6 K/mm3 03/26/21 05:35 Myelocytes # 1.0 K/mm3 03/26/21 05:35 Promyelocytes # 0.2 K/mm3 03/26/21 05:35 Blast Cells # 0.0 K/mm3 03/26/21 05:35 WBC Morphology Not Reportable 03/26/21 05:35 Hypersegmented Neuts Not Reportable 03/26/21 05:35 Hyposegmented Neuts Not Reportable 03/26/21 05:35 Hypogranular Neuts Not Reportable 03/26/21 05:35 Smudge Cells Not Reportable 03/26/21 05:35 Toxic Granulation Not Reportable 03/26/21 05:35 Toxic Vacuolation Not Reportable 03/26/21 05:35 Dohle Bodies Not Reportable 03/26/21 05:35 Pelger-Huet Anomaly Not Reportable 03/26/21 05:35 Florentino Rods Not Reportable 03/26/21 05:35 Platelet Estimate Consistent w auto 03/26/21 05:35 Clumped Platelets Not Reportable 03/26/21 05:35 Plt Clumps, EDTA Not Reportable 03/26/21 05:35 Large Platelets 1+ 03/26/21 05:35 Giant Platelets Not Reportable 03/26/21 05:35 Platelet Satelliting Not Reportable 03/26/21 05:35 Plt Morphology Comment Not Reportable 03/26/21 05:35 RBC Morphology Not Reportable 03/26/21 05:35 Dimorphic RBCs Not Reportable 03/26/21 05:35 Polychromasia 1+ 03/26/21 05:35 Hypochromasia 2+ 03/26/21 05:35 Poikilocytosis 1+ 03/26/21 05:35 Anisocytosis 2+ 03/26/21 05:35 Microcytosis Not Reportable 03/26/21 05:35 Macrocytosis Not Reportable 03/26/21 05:35 Spherocytes Not Reportable 03/26/21 05:35 Pappenheimer Bodies Not Reportable 03/26/21 05:35 Sickle Cells Not Reportable 03/26/21 05:35 Target Cells 1+ 03/26/21 05:35 Tear Drop Cells 1+ 03/26/21 05:35 Ovalocytes Not Reportable 03/26/21 05:35 Stomatocytes 1+ 03/26/21 05:35 Helmet Cells Not Reportable 03/26/21 05:35 Mabry-[place]om[place] Bodies Not Reportable 03/26/21 05:35 [place] Rings Not Reportable 03/26/21 05:35 Marcelo Cells Not Reportable 03/26/21 05:35 Bite Cells Not Reportable 03/26/21 05:35 Crenated Cell Not Reportable 03/26/21 05:35 Elliptocytes Not Reportable 03/26/21 05:35 Acanthocytes (Spur) Not Reportable 03/26/21 05:35 Rouleaux Not Reportable 03/26/21 05:35 Hemoglobin C Crystals Not Reportable 03/26/21 05:35 Schistocytes 1+ 03/26/21 05:35 Malaria parasites Not Reportable 03/26/21 05:35 Maykel Bodies Not Reportable 03/26/21 05:35 Hem Pathologist Commnt No 03/26/21 05:35 PT 12.6 Sec. (12.2-14.9) 03/17/21 17:37 INR 0.85 (0.87-1.13) L 03/17/21 17:37 APTT 23.3 Sec. (24.2-36.6) L 03/17/21 17:37 D-Dimer 947.92 ng/mlDDU (0-234) H 03/17/21 17:37 ABG pH 7.477 (7.320-7.450) H 03/24/21 08:57 POC ABG pCO2 56.9 mmHg (32.0-48.0) H 03/24/21 08:57 ABG pCO2 72.7 mm Hg 03/23/21 04:50 POC ABG pO2 100.6 mmHg (83-108) 03/24/21 08:57 ABG pO2 70.7 mm Hg (80.0-90.0) L 03/23/21 04:50 POC ABG HCO3 41.1 03/24/21 08:57 ABG HCO3 41.7 mmol/L (20.0-26.0) H 03/23/21 04:50 ABG O2 Saturation 98.3 (0-100) 03/24/21 08:57 ABG O2 Content 7.8 (0.0-44) 03/23/21 04:50 POC ABG Base Excess 15.8 03/24/21 08:57 ABG Base Excess 15.2 mmol/L (-2.0-3.0) H 03/23/21 04:50 ABG Hemoglobin 8.0 (12.0-17.5) L 03/24/21 08:57 ABG Oxyhemoglobin 96.8 (94-98) 03/24/21 08:57 ABG Carboxyhemoglobin 1.7 % (0.0-5.0) 03/23/21 04:50 ABG Methemoglobin 0.3 (0.0-1.5) 03/24/21 08:57 ABG Sodium 139.1 mmol/L (136.0-145.0) 03/24/21 08:57 ABG Potassium 3.9 mmol/L (3.40-4.50) 03/24/21 08:57 ABG Chloride 93.0 mmol/L (98-107) L 03/24/21 08:57 ABG Glucose 328 mg/dL (65-95) H 03/24/21 08:57 Oxyhemoglobin 96.9 % (95.0-99.0) 03/23/21 04:50 Carboxyhemoglobin 1.2 (0.5-1.5) 03/24/21 08:57 FiO2 40 % 03/23/21 04:50 FiO2 % 40 03/24/21 08:57 Sodium 140 mmol/L (137-145) 03/29/21 04:35 Potassium 4.4 mmol/L (3.6-5.0) 03/29/21 04:35 Chloride 95.4 mmol/L (98-107) L 03/29/21 04:35 Carbon Dioxide 37 mmol/L (22-30) H 03/29/21 04:35 Anion Gap 12 mmol/L 03/29/21 04:35 BUN 22 mg/dL (7-17) H 03/29/21 04:35 Creatinine 0.4 mg/dL (0.6-1.2) L 03/29/21 04:35 Estimated GFR > 60 ml/min 03/29/21 04:35 BUN/Creatinine Ratio 55 % 03/29/21 04:35 Glucose 194 mg/dL (65-100) H 03/29/21 04:35 POC Glucose 106 mg/dL (70-105) H 03/29/21 10:58 Lactic Acid 4.00 mmol/L (0.7-2.0) H* 03/17/21 23:36 Calcium 8.7 mg/dL (8.4-10.2) 03/29/21 04:35 Phosphorus 4.20 mg/dL (2.5-4.5) 03/28/21 04:00 Magnesium 2.20 mg/dL (1.7-2.3) 03/28/21 04:00 Total Bilirubin 0.30 mg/dL (0.1-1.2) 03/26/21 05:35 Direct Bilirubin < 0.2 mg/dL (0-0.2) 03/19/21 12:00 Indirect Bilirubin 0.1 mg/dL 03/19/21 12:00 AST 35 units/L (5-40) 03/26/21 05:35 ALT 169 units/L (7-56) H 03/26/21 05:35 Alkaline Phosphatase 138 units/L (35-129) H 03/26/21 05:35 Ammonia 26.0 umol/L (25-60) 03/19/21 12:00 Total Creatine Kinase 123 units/L (30-135) 03/29/21 09:24 CK-MB (CK-2) 1.5 ng/mL (0.0-4.0) 03/29/21 09:24 CK-MB (CK-2) Rel Index 1.2 (0-4) 03/29/21 09:24 Troponin T < 0.010 ng/mL (0.00-0.029) 03/29/21 09:24 NT-Pro-B Natriuret Pep 576.0 pg/mL (0-900) 03/17/21 17:36 Total Protein 5.5 g/dL (6.3-8.2) L 03/26/21 05:35 Albumin 3.2 g/dL (3.9-5) L 03/26/21 05:35 Albumin/Globulin Ratio 1.4 % 03/26/21 05:35 Triglycerides 189 mg/dL (2-149) H 03/22/21 04:39 Cholesterol 191 mg/dL (50-199) 03/17/21 17:36 LDL Cholesterol Direct 80 mg/dL (50-130) 03/17/21 17:36 HDL Cholesterol 73 mg/dL (40-59) H 03/17/21 17:36 Cholesterol/HDL Ratio 2.61 % 03/17/21 17:36 Amylase 78 units/L (27-131) 03/19/21 Unknown Lipase 12 units/L (13-60) L 03/19/21 Unknown TSH 3.510 mlU/mL (0.270-4.200) 03/17/21 22:57 Arterial Blood Glucose 328 mg/dL (65-95) H 03/24/21 08:57 Arterial Blood Ionized Calcium 4.5 mg/dL (4.6-5.3) L 03/24/21 08:57 Urine Color Mayuri (Yellow) 03/17/21 19:42 Urine Turbidity Slightly-cloudy (Clear) 03/17/21 19:42 Urine pH 7.0 (5.0-7.0) 03/17/21 19:42 Ur Specific [place] 1.015 (1.003-1.030) 03/17/21 19:42 Urine Protein 100 mg/dl mg/dL (Negative) 03/17/21 19:42 Urine Glucose (UA) Neg mg/dL (Negative) 03/17/21 19:42 Urine Ketones 20 mg/dL (Negative) 03/17/21 19:42 Urine Blood Sm (Negative) 03/17/21 19:42 Urine Nitrite Neg (Negative) 03/17/21 19:42 Urine Bilirubin Neg (Negative) 03/17/21 19:42 Urine Urobilinogen 2.0 mg/dL (<2.0) 03/17/21 19:42 Ur Leukocyte Esterase Neg (Negative) 03/17/21 19:42 Urine WBC (Auto) 4.0 /HPF (0.0-6.0) 03/17/21 19:42 Urine RBC (Auto) 6.0 /HPF (0.0-6.0) 03/17/21 19:42 U Epithel Cells (Auto) 5.0 /HPF (0-13.0) 03/17/21 19:42 Urine Bacteria (Auto) 1+ /HPF (Negative) 03/17/21 19:42 Urine Mucus 1+ /HPF 03/17/21 19:42 Urine Yeast (Budding) Few /HPF 03/17/21 19:42 Acetaminophen 5.0 ug/mL (10.0-30.0) L 03/18/21 23:07 Coronavirus (PCR) Negative (Negative) 03/19/21 Unknown Blood Type A POSITIVE 03/29/21 09:24 Antibody Screen Negative 03/29/21 09:24 Crossmatch See Detail 03/29/21 09:24 Microbiology: Microbiology 03/26/21 08:06 Peripheral/Venous Blood Culture - Preliminary NO GROWTH AFTER 72 HOURS 03/26/21 08:06 Peripheral/Venous Blood Culture - Preliminary NO GROWTH AFTER 72 HOURS 03/26/21 Unknown Tracheal Aspirate Sputum Culture - Final [place]/IV: Voiding Method External Female Catheter Active Medications - Current Medications Current Medications: Generic Name Dose Route Start Last Admin Trade Name Freq PRN Reason Stop Dose Admin Acetaminophen 650 mg 03/18/21 00:05 Acetaminophen 325 Mg Tab PO Q6H PRN Pain MILD(1-3)/Fever >100.5/TOVAR Albuterol 2.5 mg 03/22/21 08:00 Albuterol 2.5 Mg/3 Ml Nebu IH Q6H PRN Wheezing Alprazolam 1 mg 03/26/21 10:53 03/28/21 18:21 Alprazolam 1 Mg Tab PO 1 mg Q8H PRN Administration AGITATION Lipase/Protease/Amylase 1 each 03/19/21 18:16 Lipase 10,500/Protease 25,000/Amylase 43,750 (Units) Dr Newman FEEDTUBE PRN PRN For Clogged Feeding Tube Arformoterol Tartrate 15 mcg 03/24/21 11:00 03/29/21 07:56 Arformoterol 15 Mcg/2 Ml Nebu IH Not Given Q12HRT [facility] Atorvastatin Calcium 10 mg 03/19/21 22:00 03/28/21 21:52 Atorvastatin 10 Mg Tab PO 10 mg QHS [facility] Administration Budesonide 0.5 mg 03/24/21 11:00 03/29/21 07:57 Budesonide 0.5 Mg/2 Ml Nebu IH Not Given Q12HRT [facility] Buspirone HCl 5 mg 03/25/21 14:00 03/29/21 10:20 Buspirone 5 Mg Tab PO Not Given BID [facility] Dextrose 0 ml 03/17/21 23:58 Dextrose 50% In Water (25gm) 50 Ml Syringe IV Q30MIN PRN Hypoglycemia Protocol Docusate Sodium 100 mg 03/23/21 10:00 03/29/21 10:20 Docusate Sodium 100 Mg/10 Ml Oral Liqd PO Not Given BID [facility] Famotidine 20 mg 03/20/21 22:00 03/29/21 10:20 Famotidine 20 Mg Tab FEEDTUBE Not Given BID [facility] Fentanyl 50 mcg 03/26/21 10:08 03/27/21 20:13 Fentanyl 100 Mcg/2 Ml Inj IV 50 mcg Q2H PRN Administration Pain, Moderate (4-6) Heparin Sodium (Porcine) 5,000 unit 03/18/21 06:00 03/29/21 06:55 Heparin 5,000 Unit/1 Ml Vial SUB-Q 5,000 unit Q8HR [facility] Administration Hydralazine HCl 5 mg 03/29/21 10:56 Hydralazine 20 Mg/1 Ml Inj IV Q4HR PRN SBP >160 Hydrophilic Ointment 1 applic 03/17/21 17:35 Lip Therapy Vaseline TP Q2HR PRN Dry Lips Dexmedetomidine HCl 400 mcg/ 104 mls @ 4.306 mls/hr 03/21/21 13:00 03/29/21 10:12 Sodium Chloride IV 0.5 mcg/kg/hr TITRATE BUTCH 10.764 mls/hr Administration Protocol 0.2 MCG/KG/HR Sodium Chloride 500 mls @ 0 mls/hr 03/29/21 08:00 Nacl 0.9% 500 Ml IV 03/29/21 18:00 ONCE@0800 [facility] As Directed Insulin Glargine 30 units 03/29/21 22:00 Insulin Glargine 100 Units/Ml SUB-Q QHS BUTCH Insulin Human Lispro 0 unit 03/19/21 12:00 03/29/21 06:55 Insulin Lispro 100 Unit/Ml SUB-Q 3 unit Q6HR BUTCH Administration Protocol Magnesium Hydroxide 30 ml 03/18/21 00:05 03/24/21 09:36 Magnesium Hydroxide (Mom) Oral Liqd Udc PO 30 ml Q4H PRN Administration Constipation Methylprednisolone Sodium Succinate 40 mg 03/28/21 10:00 03/29/21 10:14 Methylprednisolone Sod Succinate 40 Mg/1 Ml Inj IV 03/30/21 23:59 40 mg Q24HR BUTCH Administration Methylprednisolone Sodium Succinate 20 mg 03/31/21 10:00 Methylprednisolone Sod Succinate 40 Mg/1 Ml Inj IV Q24HR [facility] Metoprolol Tartrate 25 mg 03/20/21 22:00 03/29/21 10:20 Metoprolol Tartrate 25 Mg Tab PO Not Given BID [facility] Morphine Sulfate 2 mg 03/18/21 00:05 Morphine 2 Mg/1 Ml Inj IV Q4H PRN Pain, Moderate (4-6) Morphine Sulfate 4 mg 03/18/21 00:05 Morphine 4 Mg/1 Ml Inj IV Q4H PRN Pain , Severe (7-10) Multi-Ingred Cream/Lotion/Oil/Oint 1 applic 03/17/21 17:35 Mineral Oil/Petrolatum, White Ophth Oint 3.5 Gm OU Q4HR PRN Dry Eye(s) Senna/Docusate Sodium 1 tab 03/17/21 22:00 03/29/21 10:20 Sennosides/Docusate Sodium 8.6/50 Mg Tab FEEDTUBE Not Given BID BUTCH Simple Syrup 15 ml 03/19/21 18:16 Simple Syrup 15 Ml FEEDTUBE PRN PRN Hypoglycemia Simple Syrup 30 ml 03/19/21 18:16 Simple Syrup 15 Ml FEEDTUBE PRN PRN Hypoglycemia Sodium Bicarbonate 325 mg 03/19/21 18:16 Sodium Bicarbonate 325 Mg Tab FEEDTUBE PRN PRN For Clogged Feeding Tube Sodium Chloride 10 ml 03/18/21 10:00 03/29/21 10:13 Sodium Chloride 0.9% 10 Ml Flush Syringe IV 10 ml BID BUTCH Administration Sodium Chloride 10 ml 03/17/21 23:58 03/22/21 23:20 Sodium Chloride 0.9% 10 Ml Flush Syringe IV 10 ml PRN PRN Administration LINE FLUSH Nutrition/Malnutrition Assess - Dietary Evaluation Nutrition/Malnutrition Findings: Nutrition Notes Start: 03/18/21 09:46 Freq: Status: Active Protocol: Document 03/23/21 18:25 PAM (Rec: 03/23/21 18:30 PAM [id number]) Nutrition Notes Initial or Follow up Brief Note Current Diet TF-Promote @ 70 ml/hr (since D 03/19). Weight change and time frame No body weight change reported . Subjective/Other Information RD consult for TF tolerance. TF continues as prescribed. Percent of energy/protein needs met: Prescribed Promote @ 70 ml/hr provides for energy/protein needs (1,680 Kcal/105 g) during LOS. #1 Nutrition Diagnosis Inadequate oral intake Diagnosis Progress(for reassessment Continues documentation) Nutrition Intervention Nutrition Support: Continue Promote @ 70 ml/hr. Flush: 50 ml water Q 4 hr. Goal #1 Provide at least 75% of energy /protein needs through Enteral Feeding during LOS. Follow-Up By: 03/30/21 Additional Comments Continue monitoring TF tolerance, and BM.
[2021-03-29 20:03] LABS: Hematocrit 31.3 % (30.3-42.9); Hemoglobin 9.3 gm/dl (10.1-14.3); Mean Corpuscular HGB Conc 30 % (30-34); Mean Corpuscular Volume 77 fl (79-97); Platelet Count 599 K/mm3 (140-440); Red Blood Count 4.06 M/mm3 (3.65-5.03)
[2021-03-29 20:04] LABS: Red Cell Distribution Width 22.7 % (13.2-15.2)
[2021-03-29] MEDS ORDERED: INSULIN GLARGINE 100 UNITS/ML SUB-Q SCH ×2 (22:00)
[2021-03-29] MEDS: DEXTROSE 50% IN WATER (25GM) 50 ML SYRINGE IV PRN (23:50)
[2021-03-30] MEDS: INSULIN LISPRO 100 UNIT/ML SUB-Q SCH ×5 (00:33→23:41)
[2021-03-30] MEDS: DEXTROSE 50% IN WATER (25GM) 50 ML SYRINGE IV PRN ×2 (01:51→05:34)
[2021-03-30] MEDS ORDERED: DEXTROSE 10% IN WATER 1,000 ML IV SCH (02:00)
[2021-03-30] MEDS: HEPARIN 5,000 UNIT/1 ML VIAL SUB-Q SCH ×3 (05:33→21:47)
[2021-03-30 06:37] LABS: Blood Urea Nitrogen 18 mg/dL (7-17); Calcium 8.6 mg/dL (8.4-10.2); Hemolysis Index 17
[2021-03-30 06:47] LABS: BUN/Creatinine Ratio 60
--- NOTE | 2021-03-30 09:04 | XRay Report ---
CHEST 1 VIEW INDICATION: SOB. COMPARISON: 03/24/2021 FINDINGS: Support devices: None. Heart: Stable borderline heart size Lungs/Pleura: Underlying emphysematous changes are suspected. The lungs are generally clear. Mild bib asilar airspace opacities have resolved. No pleural effusion or pneumothorax. Additional findings: None. IMPRESSION: No acute findings. Signer Name: Antonio Christie Jr, MD Signed: 03/30/2021 8:59 AM Workstation Name: [id number]
[2021-03-30] MEDS: ARFORMOTEROL 15 MCG/2 ML NEBU IH SCH ×2 (09:27→20:36)
[2021-03-30] MEDS: BUDESONIDE 0.5 MG/2 ML NEBU IH SCH ×2 (09:32→20:36)
[2021-03-30] MEDS: DOCUSATE SODIUM 100 MG/10 ML ORAL LIQD PO SCH ×2 (10:28→21:32)
[2021-03-30] MEDS: SENNOSIDES/DOCUSATE SODIUM 8.6/50 MG TAB FEEDTUBE SCH ×2 (10:28→21:37)
[2021-03-30] MEDS: FAMOTIDINE 20 MG TAB FEEDTUBE SCH ×2 (10:28→21:37)
[2021-03-30] MEDS: METOPROLOL TARTRATE 25 MG TAB PO SCH ×2 (10:28→21:32)
[2021-03-30] MEDS: busPIRone 5 MG TAB PO SCH ×2 (10:28→21:32)
[2021-03-30] MEDS: methylPREDNISolone Sod Succinate 40 MG/1 ML INJ IV SCH (10:28)
--- NOTE | 2021-03-30 11:15 | Progress Note ---
Assessment and Plan Assessment and plan: This is a 50-year-old female with COPD with oxygen dependence, DM, severe anxiety, GERD, HLD, HTN and PAGE admitted with SVT and hypertensive urgency. Hospital Course to Date: This is a 60-year-old female with COPD with oxygen dependence currently with palliative care, DM, former nicotine abuse, severe anxiety, GERD, HLD, HTN and PAGE presented to emergency department on 03/17 via EMS with complaints of shortness of breath. On arrival of EMS patient was found to be in SVT with a heart rate of about 200 and blood pressure to be quite elevated with systolic in 200s. She was given 6 mg of adenosine without significant changes subsequently given 12 mg of adenosine with improvement of her heart rate. Upon arrival to the emergency department patient was found to be in atrial fibrillation with RVR and dyspneic. Work-up in the emergency department revealed leukocytosis, lactic acidosis, transaminitis, hypoalbuminemia and a troponin leak. CXR, CT a chest and CT head were unremarkable. Patient was admitted to the hospitalist service with consults to [facility] and cardiology for further work-up of acute on chronic respiratory failure, SVT and hypertensive urgency. 03/18/2021: Patient is intubated and on vent support, Patient is in sinus tachycardia 03/19: COVID-19 PCR negative, remains on ventilatory support, Versed drip changed to propofol. No acute events reported overnight. Tracheal aspirate with few gram-positive Cocci. This afternoon, patient went in to the 150s, giving 500 mL NS bolus and fentanyl push to see if it pain related. If persists then will order prn Ativan per Dr. Gage recommendation. 03/20: Restarted on home metoprolol and abdominal ultrasound showed right hydronephrosis. Abd US shows right hydroureteronephrosis and will obtain a de dicated renal US. She seems to more comfortable on propofol and fentanyl 03/21: Patient's FiO2 had to be decreased overnight due to hypoxia and tachycardia. Hyperkalemia noted and given Kayexalate. 1 unit PRBC for hemoglobin 6.8. [facility] plans to extubate tomorrow. Increase in Lantus. 03/22: Transfuse one unit prbc, failed SBT in the AM d/t hypertension. [facility] extubated the patient but she was reintubated within [address] head ordered and pending read. Given kionex x2 for hyperkalemia 03/23: This morning patient was only on Precedex drip and overnight she had agitation, hypertension and tachycardia. RN instructed to place fentanyl drip. Increase in Lantus for better glucose control. Will remove Wallis today. 03/24/2021: no acute events reported overnight. Patient remains intubated and is currently on fentanyl and Precedex. Increase in Lantus due to hyperglycemia. 03/25: no acute events overnight. increase in lantus and decreased steroids today. 03/26: Remains on the vent. Failed SAT/SBT trials this am due to increased HR, in the 150s. Hyperkalemic this am s/p X1 dose of kayaxalate, repeat BMP ordered. Fever overnight with leukocytosis, patient is on steroids, will panculture for now, hold on IV ABx for now 03/27: Patient failed SBT trial this am, HR increased in the 150s, most likely due to her severe anxiety. Patient is back on low dose sedation, continue PRN Xanax. Hyperkalemia still slightly high, X1dose of kayaxalate ordered, repeat lab in the am. 03/28: LIDIA overnight. Remains on precedex and fentanyl gtt, with PRN Xanax for anxiety. Plan for possible SBT again today, per CCM if still not tolerating SBT patient will eventually need a trach 03/29: Patient self-extubated this am, tolerating Bipap SPO2 above 92%. Patient still appears anxious, d/w CCM plan to keep patient the Bipap throughout the day. Will also restart preced gtt for anxiety. Keep patient NPO for now while on continuous Bipap. Low H&H noted, order placed for 1unit of PRBCs, repeat labs or dered. 03/30: Stable on 50% venti mask this am, still with peroids of agitation and increased anxiety remains on precedex gtt. Plan for possible HHFL NC today, continue Bipap at night. Hypoglycemic overnight now on D10w. IVF switched to D51/2NS, nursing to do a bedside swallow. Will D/C IVF if patient is able to tolerate PO. Assessment and Plan #Neuro:Severe Anxiety #H/o Anxiety and depression -Will continue precedex gtt for now -Tritrate a RASS goal 0 to -1 -PO Buspar and Xanax are on hold for now, patient is NPO -Cymbalta on hold, can not be crush -Avoid delirium -Avoid Analgesic/opiate at this time -Maintenance of sleep-wake cycle #Cardio:A. fib with RVR #SVT # Hypertensive emergency-resolved -Presented with high BP and SVT, HR in 200 -s/p X2 doses of adenosine in the ED -Echocardiogram 10/2020 showed EF of 50 to 55% -Short periods of SVT and c/o CP this am post self-extubation, self resolved once patient calmed down -EKG with ST, Troponin are neg -Cardiology consulted, appreciate recommendations -Continue metoprolol BID -Continue AC- Heparin SubQ -Continue blood pressure monitor per protocol -PRN Hydralazine added for SBP greater than 160 #Resp:Acute on chronic respiratory failure #H/o COPD and PAGE -Intubated on 03/17 , extubated and reintubated on 03/22 -Self-extubated this am 03/29 -On 50% Venti mask this am, SPO2 above 95% -CCM consulted, appreciate recommendations -Plan to switch to HHFL NC -Continue Bipap at night -Continue IV Steroids and Nebs per CCM -Continue to wean steroids -VAP bundle addressed -Aspiration precaution HOB above 30 -PRN ABG and CXR per CCm -Continue SPO2 monitoring for SPO2 goal above 92% #GI: Transaminitis-improving -Presented with elevated LFTs -LFTs downtrending, continue to trend LFts -Enteral nutrition on hold -Keep patient NPO for now while on Bipap -NTR on consulted -Continue PPI -Continue BR #:Hyperkalemia-resolved -K normalized, renal function remains stable -Continue to Trend BMP -Strict intake and output -Avoid nephrotoxic medications; Renally dose medications -Monitor and replace electrolytes as needed #Heme:Microcytic anemia -s/p 2unit PRBCs -No s/s of any active bleeding -Repeat H&H is stable -Continue to Trend CBC -Transfuse for hbg <7 -SCDs to BLE while in bed -Continue AC- Heparin SubQ #ID:Leukocytosis #Possible Bilateral Pneumonia -Imagings with bibasilar opacities and Pleural effusion -02/25 tracheal aspirate with few gram-positive cocci -Patient completed IV Abx course -Afebrile -WBCs is trending down, Patient still on steroids -Continue to wean steroids -Repeat CXR is unchanged this am -Blood cultures and sputum culture NGTD -Hold on IV ABx for now -Trend WBC and fever curve -Continue to F/U on B.cult -Daily CBC monitor -Consider ID consult if febrile or/and if leukocytosis persist #Endo:Type 2 DM #Hyperglycemia-improved -Hypoglycemic BG in the 60s this am -Patient has been NPO while on cont. Bipap -Now on D51/2NS gtt for now, D/C if patient can tolerate PO -Continue SSI q6hrs -Lantus on hold -Avoid hypoglycemia The high probability of a clinically significant, sudden or life threatening deterioration of the [pulm/ID/Endo] system(s) required my full and direct attent ion, intervention and personal management. The aggregate critical care time was [60] minutes. This time is in addition to time spent performing reported procedures but includes the following: [x] Data Review and interpretation [x] Patient assessment and monitoring of vital signs [x] Documentation [x] Medication orders and management Disposition Plan: ICU Total Time Spent with Patient (Minutes): 60 History Interval history: Patient seen and examined at the bedside. AAO this am, on 50% venti mask this am, SPO2 above 95%. Agitated overnight, remains on Precedex gtt. Low BG overnight, NPO while on Bipap, D10w added. Hospitalist Physical - Constitutional Vitals: Temp Pulse Resp BP Pulse Ox 98.7 F 93 H 22 119/63 99 03/30/21 07:47 03/30/21 09:33 03/30/21 09:33 03/30/21 07:31 03/30/21 08:51 General appearance: Present: no acute distress, obese - EENT Eyes: Present: PERRL ENT: hearing intact - Neck Neck: Present: normal ROM - Respiratory Respiratory effort: accessory muscle use Respiratory: bilateral: wheezing - Cardiovascular Rhythm: regular Heart Sounds: Present: S1 & S2 - Extremities Extremities: no ischemia, pulses intact, pulses symmetrical Extremity abnormal: edema - Peripheral Assessment Generalized Edema Type: Non-pitting Edema Degree: 1+ Capillary Refill: < 3 seconds Skin Temperature: Warm Peripheral Pulses: within normal limits - Abdominal General gastrointestinal: soft, non-tender, normal bowel sounds - Integumentary Integumentary: Present: warm, dry - Psychiatric Psychiatric: appropriate mood/affect, cooperative, depressed - Neurologic Neurologic: CNII-XII intact, moves all extremities - Allied Health Allied health notes reviewed: nursing HEART Score - HEART Score Troponin: Troponin T < 0.010 ng/mL (0.00-0.029) 03/29/21 09:24 Results - Labs CBC & Chem 7: 03/29/21 19:32 03/30/21 04:00 Labs: Laboratory Last Values WBC 25.1 K/mm3 (4.5-11.0) H 03/29/21 19:32 RBC 4.06 M/mm3 (3.65-5.03) 03/29/21 19:32 Hgb 9.3 gm/dl (10.1-14.3) L 03/29/21 19:32 Hct 31.3 % (30.3-42.9) D 03/29/21 19:32 MCV 77 fl (79-97) L 03/29/21 19:32 MCH 23 pg (28-32) L 03/29/21 19:32 MCHC 30 % (30-34) 03/29/21 19:32 RDW 22.7 % (13.2-15.2) H 03/29/21 19:32 Plt Count 599 K/mm3 (140-440) H 03/29/21 19:32 Hart % (Auto) Safety Spec 03/24/21 08:03 Add Manual Diff Complete 03/26/21 05:35 Total Counted 100 03/26/21 05:35 Seg Neuts % (Manual) 72.0 % (40.0-70.0) H 03/26/21 05:35 Band Neutrophils % 5.0 % 03/26/21 05:35 Lymphocytes % (Manual) 6.0 % (13.4-35.0) L 03/26/21 05:35 Reactive Lymphs % (Man) 5.0 % 03/19/21 04:59 Monocytes % (Manual) 8.0 % (0.0-7.3) H 03/26/21 05:35 Metamyelocytes % 3.0 % 03/26/21 05:35 Myelocytes % 5.0 % 03/26/21 05:35 Promyelocytes % 1.0 % 03/26/21 05:35 Nucleated RBC % Not Reportable 03/26/21 05:35 Seg Neutrophils # Man 14.4 K/mm3 (1.8-7.7) H 03/26/21 05:35 Band Neutrophils # 1.0 K/mm3 03/26/21 05:35 Lymphocytes # (Manual) 1.2 K/mm3 (1.2-5.4) 03/26/21 05:35 Abs React Lymphs (Man) 0.0 K/mm3 03/26/21 05:35 Monocytes # (Manual) 1.6 K/mm3 (0.0-0.8) H 03/26/21 05:35 Eosinophils # (Manual) 0.0 K/mm3 (0.0-0.4) 03/26/21 05:35 Basophils # (Manual) 0.0 K/mm3 (0.0-0.1) 03/26/21 05:35 Metamyelocytes # 0.6 K/mm3 03/26/21 05:35 Myelocytes # 1.0 K/mm3 03/26/21 05:35 Promyelocytes # 0.2 K/mm3 03/26/21 05:35 Blast Cells # 0.0 K/mm3 03/26/21 05:35 WBC Morphology Not Reportable 03/26/21 05:35 Hypersegmented Neuts Not Reportable 03/26/21 05:35 Hyposegmented Neuts Not Reportable 03/26/21 05:35 Hypogranular Neuts Not Reportable 03/26/21 05:35 Smudge Cells Not Reportable 03/26/21 05:35 Toxic Granulation Not Reportable 03/26/21 05:35 Toxic Vacuolation Not Reportable 03/26/21 05:35 Dohle Bodies Not Reportable 03/26/21 05:35 Pelger-Huet Anomaly Not Reportable 03/26/21 05:35 Florentino Rods Not Reportable 03/26/21 05:35 Platelet Estimate Consistent w auto 03/26/21 05:35 Clumped Platelets Not Reportable 03/26/21 05:35 Plt Clumps, EDTA Not Reportable 03/26/21 05:35 Large Platelets 1+ 03/26/21 05:35 Giant Platelets Not Reportable 03/26/21 05:35 Platelet Satelliting Not Reportable 03/26/21 05:35 Plt Morphology Comment Not Reportable 03/26/21 05:35 RBC Morphology Not Reportable 03/26/21 05:35 Dimorphic RBCs Not Reportable 03/26/21 05:35 Polychromasia 1+ 03/26/21 05:35 Hypochromasia 2+ 03/26/21 05:35 Poikilocytosis 1+ 03/26/21 05:35 Anisocytosis 2+ 03/26/21 05:35 Microcytosis Not Reportable 03/26/21 05:35 Macrocytosis Not Reportable 03/26/21 05:35 Spherocytes Not Reportable 03/26/21 05:35 Pappenheimer Bodies Not Reportable 03/26/21 05:35 Sickle Cells Not Reportable 03/26/21 05:35 Target Cells 1+ 03/26/21 05:35 Tear Drop Cells 1+ 03/26/21 05:35 Ovalocytes Not Reportable 03/26/21 05:35 Stomatocytes 1+ 03/26/21 05:35 Helmet Cells Not Reportable 03/26/21 05:35 Mabry-Pattison Bodies Not Reportable 03/26/21 05:35 Linden Rings Not Reportable 03/26/21 05:35 Marcelo Cells Not Reportable 03/26/21 05:35 Bite Cells Not Reportable 03/26/21 05:35 Crenated Cell Not Reportable 03/26/21 05:35 Elliptocytes Not Reportable 03/26/21 05:35 Acanthocytes (Spur) Not Reportable 03/26/21 05:35 Rouleaux Not Reportable 03/26/21 05:35 Hemoglobin C Crystals Not Reportable 03/26/21 05:35 Schistocytes 1+ 03/26/21 05:35 Malaria parasites Not Reportable 03/26/21 05:35 Maykel Bodies Not Reportable 03/26/21 05:35 Hem Pathologist Commnt No 03/26/21 05:35 PT 12.6 Sec. (12.2-14.9) 03/17/21 17:37 INR 0.85 (0.87-1.13) L 03/17/21 17:37 APTT 23.3 Sec. (24.2-36.6) L 03/17/21 17:37 D-Dimer 947.92 ng/mlDDU (0-234) H 03/17/21 17:37 ABG pH 7.477 (7.320-7.450) H 03/24/21 08:57 POC ABG pCO2 56.9 mmHg (32.0-48.0) H 03/24/21 08:57 ABG pCO2 72.7 mm Hg 03/23/21 04:50 POC ABG pO2 100.6 mmHg (83-108) 03/24/21 08:57 ABG pO2 70.7 mm Hg (80.0-90.0) L 03/23/21 04:50 POC ABG HCO3 41.1 03/24/21 08:57 ABG HCO3 41.7 mmol/L (20.0-26.0) H 03/23/21 04:50 ABG O2 Saturation 98.3 (0-100) 03/24/21 08:57 ABG O2 Content 7.8 (0.0-44) 03/23/21 04:50 POC ABG Base Excess 15.8 03/24/21 08:57 ABG Base Excess 15.2 mmol/L (-2.0-3.0) H 03/23/21 04:50 ABG Hemoglobin 8.0 (12.0-17.5) L 03/24/21 08:57 ABG Oxyhemoglobin 96.8 (94-98) 03/24/21 08:57 ABG Carboxyhemoglobin 1.7 % (0.0-5.0) 03/23/21 04:50 ABG Methemoglobin 0.3 (0.0-1.5) 03/24/21 08:57 ABG Sodium 139.1 mmol/L (136.0-145.0) 03/24/21 08:57 ABG Potassium 3.9 mmol/L (3.40-4.50) 03/24/21 08:57 ABG Chloride 93.0 mmol/L (98-107) L 03/24/21 08:57 ABG Glucose 328 mg/dL (65-95) H 03/24/21 08:57 Oxyhemoglobin 96.9 % (95.0-99.0) 03/23/21 04:50 Carboxyhemoglobin 1.2 (0.5-1.5) 03/24/21 08:57 FiO2 40 % 03/23/21 04:50 FiO2 % 40 03/24/21 08:57 Sodium 139 mmol/L (137-145) 03/30/21 04:00 Potassium 3.7 mmol/L (3.6-5.0) 03/30/21 04:00 Chloride 93.4 mmol/L (98-107) L 03/30/21 04:00 Carbon Dioxide 34 mmol/L (22-30) H 03/30/21 04:00 Anion Gap 15 mmol/L 03/30/21 04:00 BUN 18 mg/dL (7-17) H 03/30/21 04:00 Creatinine 0.3 mg/dL (0.6-1.2) L 03/30/21 04:00 Estimated GFR > 60 ml/min 03/30/21 04:00 BUN/Creatinine Ratio 60 % 03/30/21 04:00 Glucose 114 mg/dL (65-100) H 03/30/21 04:00 POC Glucose 82 mg/dL (70-105) 03/30/21 10:59 Lactic Acid 4.00 mmol/L (0.7-2.0) H* 03/17/21 23:36 Calcium 8.6 mg/dL (8.4-10.2) 03/30/21 04:00 Phosphorus 4.70 mg/dL (2.5-4.5) H 03/30/21 04:00 Magnesium 1.90 mg/dL (1.7-2.3) 03/30/21 04:00 Total Bilirubin 0.30 mg/dL (0.1-1.2) 03/26/21 05:35 Direct Bilirubin < 0.2 mg/dL (0-0.2) 03/19/21 12:00 Indirect Bilirubin 0.1 mg/dL 03/19/21 12:00 AST 35 units/L (5-40) 03/26/21 05:35 ALT 169 units/L (7-56) H 03/26/21 05:35 Alkaline Phosphatase 138 units/L (35-129) H 03/26/21 05:35 Ammonia 26.0 umol/L (25-60) 03/19/21 12:00 Total Creatine Kinase 123 units/L (30-135) 03/29/21 09:24 CK-MB (CK-2) 1.5 ng/mL (0.0-4.0) 03/29/21 09:24 CK-MB (CK-2) Rel Index 1.2 (0-4) 03/29/21 09:24 Troponin T < 0.010 ng/mL (0.00-0.029) 03/29/21 09:24 NT-Pro-B Natriuret Pep 576.0 pg/mL (0-900) 03/17/21 17:36 Total Protein 5.5 g/dL (6.3-8.2) L 03/26/21 05:35 Albumin 3.2 g/dL (3.9-5) L 03/26/21 05:35 Albumin/Globulin Ratio 1.4 % 03/26/21 05:35 Triglycerides 189 mg/dL (2-149) H 03/22/21 04:39 Cholesterol 191 mg/dL (50-199) 03/17/21 17:36 LDL Cholesterol Direct 80 mg/dL (50-130) 03/17/21 17:36 HDL Cholesterol 73 mg/dL (40-59) H 03/17/21 17:36 Cholesterol/HDL Ratio 2.61 % 03/17/21 17:36 Amylase 78 units/L (27-131) 03/19/21 Unknown Lipase 12 units/L (13-60) L 03/19/21 Unknown TSH 3.510 mlU/mL (0.270-4.200) 03/17/21 22:57 Arterial Blood Glucose 328 mg/dL (65-95) H 03/24/21 08:57 Arterial Blood Ionized Calcium 4.5 mg/dL (4.6-5.3) L 03/24/21 08:57 Urine Color Mayuri (Yellow) 03/17/21 19:42 Urine Turbidity Slightly-cloudy (Clear) 03/17/21 19:42 Urine pH 7.0 (5.0-7.0) 03/17/21 19:42 Ur Specific [place] 1.015 (1.003-1.030) 03/17/21 19:42 Urine Protein 100 mg/dl mg/dL (Negative) 03/17/21 19:42 Urine Glucose (UA) Neg mg/dL (Negative) 03/17/21 19:42 Urine Ketones 20 mg/dL (Negative) 03/17/21 19:42 Urine Blood Sm (Negative) 03/17/21 19:42 Urine Nitrite Neg (Negative) 03/17/21 19:42 Urine Bilirubin Neg (Negative) 03/17/21 19:42 Urine Urobilinogen 2.0 mg/dL (<2.0) 03/17/21 19:42 Ur Leukocyte Esterase Neg (Negative) 03/17/21 19:42 Urine WBC (Auto) 4.0 /HPF (0.0-6.0) 03/17/21 19:42 Urine RBC (Auto) 6.0 /HPF (0.0-6.0) 03/17/21 19:42 U Epithel Cells (Auto) 5.0 /HPF (0-13.0) 03/17/21 19:42 Urine Bacteria (Auto) 1+ /HPF (Negative) 03/17/21 19:42 Urine Mucus 1+ /HPF 03/17/21 19:42 Urine Yeast (Budding) Few /HPF 03/17/21 19:42 Acetaminophen 5.0 ug/mL (10.0-30.0) L 03/18/21 23:07 Coronavirus (PCR) Negative (Negative) 03/19/21 Unknown Blood Type A POSITIVE 03/29/21 09:24 Antibody Screen Negative 03/29/21 09:24 Crossmatch See Detail 03/29/21 09:24 Microbiology: Microbiology 03/26/21 08:06 Peripheral/Venous Blood Culture - Preliminary NO GROWTH AFTER 4 DAYS 03/26/21 08:06 Peripheral/Venous Blood Culture - Preliminary NO GROWTH AFTER 4 DAYS Wall[place]/IV: Voiding Method External Female Catheter Active Medications - Current Medications Current Medications: Generic Name Dose Route Start Last Admin Trade Name Freq PRN Reason Stop Dose Admin Acetaminophen 650 mg 03/18/21 00:05 Acetaminophen 325 Mg Tab PO Q6H PRN Pain MILD(1-3)/Fever >100.5/TOVAR Albuterol 2.5 mg 03/22/21 08:00 Albuterol 2.5 Mg/3 Ml Nebu IH Q6H PRN Wheezing Alprazolam 1 mg 03/26/21 10:53 03/28/21 18:21 Alprazolam 1 Mg Tab PO 1 mg Q8H PRN Administration AGITATION Lipase/Protease/Amylase 1 each 03/19/21 18:16 Lipase 10,500/Protease 25,000/Amylase 43,750 (Units) Dr Newman FEEDTUBE PRN PRN For Clogged Feeding Tube Arformoterol Tartrate 15 mcg 03/24/21 11:00 03/30/21 09:27 Arformoterol 15 Mcg/2 Ml Nebu IH 15 mcg Q12HRT BUTCH Administration Atorvastatin Calcium 10 mg 03/19/21 22:00 03/29/21 21:09 Atorvastatin 10 Mg Tab PO Not Given QHS BUTCH Budesonide 0.5 mg 03/24/21 11:00 03/30/21 09:32 Budesonide 0.5 Mg/2 Ml Nebu IH 0.5 mg Q12HRT BUTCH Administration Buspirone HCl 5 mg 03/25/21 14:00 03/29/21 21:09 Buspirone 5 Mg Tab PO Not Given BID [facility] Dextrose 0 ml 03/17/21 23:58 03/30/21 05:34 Dextrose 50% In Water (25gm) 50 Ml Syringe IV 50 ml Q30MIN PRN Administration Hypoglycemia Protocol Docusate Sodium 100 mg 03/23/21 10:00 03/29/21 21:08 Docusate Sodium 100 Mg/10 Ml Oral Liqd PO Not Given BID [facility] Famotidine 20 mg 03/20/21 22:00 03/29/21 21:09 Famotidine 20 Mg Tab FEEDTUBE Not Given BID [facility] Fentanyl 50 mcg 03/26/21 10:08 03/27/21 20:13 Fentanyl 100 Mcg/2 Ml Inj IV 50 mcg Q2H PRN Administration Pain, Moderate (4-6) Haloperidol Lactate 5 mg 03/30/21 09:52 Haloperidol Lactate 5 Mg/1 Ml Inj IV Q6H PRN Agitation Heparin Sodium (Porcine) 5,000 unit 03/18/21 06:00 03/30/21 05:33 Heparin 5,000 Unit/1 Ml Vial SUB-Q 5,000 unit Q8HR BUTCH Administration Hydralazine HCl 5 mg 03/29/21 10:56 Hydralazine 20 Mg/1 Ml Inj IV Q4HR PRN SBP >160 Hydrophilic Ointment 1 applic 03/17/21 17:35 Lip Therapy Vaseline TP Q2HR PRN Dry Lips Dexmedetomidine HCl 400 mcg/ 104 mls @ 4.306 mls/hr 03/21/21 13:00 03/30/21 05:34 Sodium Chloride IV 0.5 mcg/kg/hr TITRATE BUTCH 10.764 mls/hr Administration Protocol 0.2 MCG/KG/HR Dextrose/Sodium Chloride 1,000 mls @ 75 mls/hr 03/30/21 08:00 D5/0.45ns IV DIRECT [facility] Insulin Human Lispro 0 unit 03/19/21 12:00 03/30/21 05:36 Insulin Lispro 100 Unit/Ml SUB-Q Not Given Q6HR [facility] Protocol Lorazepam 0.5 mg 03/30/21 09:53 Lorazepam 2 Mg/Ml Vial IV Q4H PRN Anxiety Magnesium Hydroxide 30 ml 03/18/21 00:05 03/24/21 09:36 Magnesium Hydroxide (Mom) Oral Liqd Udc PO 30 ml Q4H PRN Administration Constipation Methylprednisolone Sodium Succinate 40 mg 03/28/21 10:00 03/29/21 10:14 Methylprednisolone Sod Succinate 40 Mg/1 Ml Inj IV 03/30/21 23:59 40 mg Q24HR BUTCH Administration Methylprednisolone Sodium Succinate 20 mg 03/31/21 10:00 Methylprednisolone Sod Succinate 40 Mg/1 Ml Inj IV Q24HR [facility] Metoprolol Tartrate 25 mg 03/20/21 22:00 03/29/21 21:09 Metoprolol Tartrate 25 Mg Tab PO Not Given BID [facility] Morphine Sulfate 2 mg 03/18/21 00:05 Morphine 2 Mg/1 Ml Inj IV Q4H PRN Pain, Moderate (4-6) Morphine Sulfate 4 mg 03/18/21 00:05 Morphine 4 Mg/1 Ml Inj IV Q4H PRN Pain , Severe (7-10) Multi-Ingred Cream/Lotion/Oil/Oint 1 applic 03/17/21 17:35 Mineral Oil/Petrolatum, White Ophth Oint 3.5 Gm OU Q4HR PRN Dry Eye(s) Senna/Docusate Sodium 1 tab 03/17/21 22:00 03/29/21 21:09 Sennosides/Docusate Sodium 8.6/50 Mg Tab FEEDTUBE Not Given BID BUTCH Simple Syrup 15 ml 03/19/21 18:16 Simple Syrup 15 Ml FEEDTUBE PRN PRN Hypoglycemia Simple Syrup 30 ml 03/19/21 18:16 Simple Syrup 15 Ml FEEDTUBE PRN PRN Hypoglycemia Sodium Bicarbonate 325 mg 03/19/21 18:16 Sodium Bicarbonate 325 Mg Tab FEEDTUBE PRN PRN For Clogged Feeding Tube Sodium Chloride 10 ml 03/18/21 10:00 03/29/21 21:13 Sodium Chloride 0.9% 10 Ml Flush Syringe IV 10 ml BID BUTCH Administration Sodium Chloride 10 ml 03/17/21 23:58 03/22/21 23:20 Sodium Chloride 0.9% 10 Ml Flush Syringe IV 10 ml PRN PRN Administration LINE FLUSH Nutrition/Malnutrition Assess - Dietary Evaluation Nutrition/Malnutrition Findings: Nutrition Notes Start: 03/18/21 09:46 Freq: Status: Active Protocol: Document 03/23/21 18:25 PAM (Rec: 03/23/21 18:30 PAM [id number]) Nutrition Notes Initial or Follow up Brief Note Current Diet TF-Promote @ 70 ml/hr (since D 03/19). Weight change and time frame No body weight change reported . Subjective/Other Information RD consult for TF tolerance. TF continues as prescribed. Percent of energy/protein needs met: Prescribed Promote @ 70 ml/hr provides for energy/protein needs (1,680 Kcal/105 g) during LOS. #1 Nutrition Diagnosis Inadequate oral intake Diagnosis Progress(for reassessment Continues documentation) Nutrition Intervention Nutrition Support: Continue Promote @ 70 ml/hr. Flush: 50 ml water Q 4 hr. Goal #1 Provide at least 75% of energy /protein needs through Enteral Feeding during LOS. Follow-Up By: 03/30/21 Additional Comments Continue monitoring TF tolerance, and BM.
--- NOTE | 2021-03-30 11:39 | Progress Note ---
Assessment and Plan 60 y/o female with acute on chronic respiratory failure, SVT and HTN likely all related to anxiety and stress 03/30/21: Currently still on bipap. No HFNC units available in the house. Transfused blood on yesterday. But no CBC checked today. Patient states that she is tired and has expressed this to several of the staff. She is currently on [facility] but my plan is to discuss hospice with her and her . Dropping steroids down starting tomorrow. Continue to wean Oxygen as tolerated. If possible keep in either ICU or step down over the weekend. 03/29/21: Currently on bipap. Good volumes and good sats. Still with some mild distress but stable. Will continue bipap therapy for now. Tomorrow will need to place psych consult if able to stay of the vent and weaned from continuous bipap to help us address anxiety and depression. IMS will likely want to transfuse PRBC's. Would give slowly if done. Discussed with TONAL REGULATOR and Bedside nurse, will restart precedex at low dose to help with anxiety. Will alert . 03/28/21: Continue PSV but she isnt ready for extubation today. Not able to tolerates PSV on yesterday so today is first real test. Dropped steroids to daily starting today. UOP is stable, but she is grossly positive. If oxygen requirement increases, check CXR and may need to consider lasix. Continue PSV for as long as possible today but definitely rest overnight. Guarded prognosis. May eventually need trach. 03/27/21: Monitor renal function and urine output closely. Not sure why K continues to be elevated despite daily correction therapy. Attempt PSV off fent but can continue precedex. Will see how patient looks tomorrow but still may not be a candidate for extubation. Drop steroids to daily starting tomorrow. 03/26/21: Continue daily PSV trials. Agree with my partner as I would like another trial of routine extubation before committing to trach. Discussed with family and patient at bedside this am. Continue solumedrol 40q12. IMS restarted buspar. WIll have psych see and evaluate to help with anxiety and depression once extubated. Guarded prognosis. 03/22/21: Please see event note for details. Planned to extubate today and wean steroids. 03/21/21: Echo given continued tachycardia despite adequate oxygenation. Can drop steroids to 40q8. 03/19/21: Continue sedation. Wean FiO2 for sats >88%. consider weaning steroid tomorrow. Follow up RUQ and trend LFT's 1. Wean Versed and place on Diprovan drip 2. Will give Fent 100 IV x1 now and order drip if needed for pain 3. Spoke with over the phone to get more history. Sounds like a panic attack not aborted by xanax therapy. Did check Tylenol level as patient has been in pain from fall 4. Elevated LFT's former drinker but confirms she has not been drinking. Ordered RUQ ultrasound and need to repeat LFT's tomorrow 5. Reviewed cards note, and they do not want to treat tachycardia or elevated bp, likely needs more sedation Guarded prognosis CCT 31 minutes. Subjective Date of service: 03/30/21 Principal diagnosis: Atrial fibrillation with RVR, respiratory failure Interval history: Still on bipap. Was on Venti mask for abou 3 hours this am but then complained about not being able to breathe so placed back on Bipap Objective Vital Signs - 12hr 03/29/21 03/30/21 03/30/21 23:48 00:00 00:30 Temperature 98.8 F Pulse Rate 70 69 Pulse Rate [ Bilateral] Pulse Rate [ 79 From Monitor] Respiratory 16 17 Rate Respiratory Rate [Bilateral ] Blood Pressure 113/65 113/65 O2 Sat by Pulse 100 100 Oximetry 03/30/21 03/30/21 03/30/21 01:00 01:30 02:00 Temperature Pulse Rate 77 65 46 L Pulse Rate [ Bilateral] Pulse Rate [ From Monitor] Respiratory 15 16 17 Rate Respiratory Rate [Bilateral ] Blood Pressure 93/57 77/51 93/60 O2 Sat by Pulse 100 100 100 Oximetry 03/30/21 03/30/21 03/30/21 02:30 03:01 04:00 Temperature 98.5 F Pulse Rate 54 L 65 81 Pulse Rate [ Bilateral] Pulse Rate [ 81 From Monitor] Respiratory 16 16 16 Rate Respiratory Rate [Bilateral ] Blood Pressure 84/49 84/49 O2 Sat by Pulse 100 100 100 Oximetry 03/30/21 03/30/21 03/30/21 04:01 05:01 05:31 Temperature Pulse Rate 88 80 69 Pulse Rate [ Bilateral] Pulse Rate [ From Monitor] Respiratory 15 16 16 Rate Respiratory Rate [Bilateral ] Blood Pressure 85/67 O2 Sat by Pulse 100 99 96 Oximetry 03/30/21 03/30/21 03/30/21 06:01 06:31 07:00 Temperature Pulse Rate 81 74 85 Pulse Rate [ Bilateral] Pulse Rate [ From Monitor] Respiratory 17 14 16 Rate Respiratory Rate [Bilateral ] Blood Pressure 120/67 115/64 115/63 O2 Sat by Pulse 100 100 100 Oximetry 03/30/21 03/30/21 03/30/21 07:31 07:47 08:51 Temperature 98.7 F Pulse Rate 80 Pulse Rate [ Bilateral] Pulse Rate [ From Monitor] Respiratory 14 Rate Respiratory Rate [Bilateral ] Blood Pressure 119/63 O2 Sat by Pulse 100 99 Oximetry 03/30/21 03/30/21 09:33 11:26 Temperature Pulse Rate 80 Pulse Rate [ 93 H Bilateral] Pulse Rate [ From Monitor] Respiratory 14 Rate Respiratory 22 Rate [Bilateral ] Blood Pressure 119/63 O2 Sat by Pulse 99 Oximetry Constitutional: other (critically ill on vent, sedated) Eyes: non-icteric ENT: oropharynx moist Neck: supple Effort: normal Ascultation: Bilateral: diminished breath sounds Cardiovascular: regular rate and rhythm (no mrg) Gastrointestinal: normoactive bowel sounds, soft, non-tender, non-distended Extremities: no cyanosis, no edema, pink and warm Neurologic: normal mental status, non-focal exam, pupils equal and round Psychiatric: mood appropriate, affect normal CBC and BMP: 03/29/21 19:32 03/30/21 04:00 ABG, PT/INR, D-dimer: ABG ABG pH 7.477 (7.320-7.450) H 03/24/21 08:57 POC ABG pCO2 56.9 mmHg (32.0-48.0) H 03/24/21 08:57 ABG pCO2 72.7 mm Hg 03/23/21 04:50 POC ABG pO2 100.6 mmHg (83-108) 03/24/21 08:57 ABG pO2 70.7 mm Hg (80.0-90.0) L 03/23/21 04:50 POC ABG HCO3 41.1 03/24/21 08:57 ABG O2 Saturation 98.3 (0-100) 03/24/21 08:57 PT/INR, D-dimer PT 12.6 Sec. (12.2-14.9) 03/17/21 17:37 INR 0.85 (0.87-1.13) L 03/17/21 17:37 D-Dimer 947.92 ng/mlDDU (0-234) H 03/17/21 17:37 Abnormal lab findings: Abnormal Labs 03/17/21 03/17/21 03/17/21 17:36 17:36 17:37 WBC 13.8 H RBC 3.48 L Hgb 7.0 L Hct 26.2 L MCV 75 L MCH 20 L MCHC 27 L RDW 25.4 H Plt Count Seg Neuts % (Manual) Lymphocytes % (Manual) Monocytes % (Manual) Nucleated RBC % 7.0 H Seg Neutrophils # Man 8.7 H Lymphocytes # (Manual) Monocytes # (Manual) INR 0.85 L APTT 23.3 L D-Dimer 947.92 H ABG pH POC ABG pCO2 POC ABG pO2 ABG pO2 ABG HCO3 ABG O2 Saturation ABG Base Excess ABG Hemoglobin ABG Oxyhemoglobin ABG Potassium ABG Chloride ABG Glucose Oxyhemoglobin Potassium Chloride 88.2 L Carbon Dioxide 38 H BUN Creatinine Glucose 129 H POC Glucose Lactic Acid Calcium Phosphorus Magnesium AST 177 H ALT 251 H Alkaline Phosphatase Ammonia Troponin T 0.036 H Total Protein 5.9 L Albumin 3.8 L Triglycerides 173 H HDL Cholesterol 73 H Lipase Arterial Blood Glucose Arterial Blood Ionized Calcium Acetaminophen Crossmatch 03/17/21 03/17/21 03/17/21 18:15 18:40 18:40 WBC RBC Hgb Hct MCV MCH MCHC RDW Plt Count Seg Neuts % (Manual) Lymphocytes % (Manual) Monocytes % (Manual) Nucleated RBC % Seg Neutrophils # Man Lymphocytes # (Manual) Monocytes # (Manual) INR APTT D-Dimer ABG pH POC ABG pCO2 POC ABG pO2 ABG pO2 94.4 H ABG HCO3 44.8 H ABG O2 Saturation ABG Base Excess 16.6 H ABG Hemoglobin ABG Oxyhemoglobin ABG Potassium ABG Chloride ABG Glucose Oxyhemoglobin Potassium Chloride Carbon Dioxide BUN Creatinine Glucose POC Glucose Lactic Acid 4.00 H* Calcium Phosphorus Magnesium AST ALT Alkaline Phosphatase Ammonia 116.0 H Troponin T Total Protein Albumin Triglycerides HDL Cholesterol Lipase Arterial Blood Glucose Arterial Blood Ionized Calcium Acetaminophen Crossmatch 1203/18/21 03/18/21 23:36 00:25 23:07 WBC RBC Hgb Hct MCV MCH MCHC RDW Plt Count Seg Neuts % (Manual) Lymphocytes % (Manual) Monocytes % (Manual) Nucleated RBC % Seg Neutrophils # Man Lymphocytes # (Manual) Monocytes # (Manual) INR APTT D-Dimer ABG pH POC ABG pCO2 POC ABG pO2 ABG pO2 68.1 L ABG HCO3 40.2 H ABG O2 Saturation ABG Base Excess 14.4 H ABG Hemoglobin 6.5 L ABG Oxyhemoglobin ABG Potassium ABG Chloride ABG Glucose Oxyhemoglobin Potassium Chloride Carbon Dioxide BUN Creatinine Glucose POC Glucose Lactic Acid 4.00 H* Calcium Phosphorus Magnesium AST ALT Alkaline Phosphatase Ammonia Troponin T Total Protein Albumin Triglycerides HDL Cholesterol Lipase Arterial Blood Glucose Arterial Blood Ionized Calcium Acetaminophen 5.0 L Crossmatch 03/19/21 03/19/21 03/19/21 00:50 03:25 04:59 WBC RBC 3.43 L Hgb 7.0 L Hct 25.6 L MCV 75 L MCH 20 L MCHC 27 L RDW 25.6 H Plt Count Seg Neuts % (Manual) 91.0 H Lymphocytes % (Manual) Monocytes % (Manual) 9.0 H Nucleated RBC % 3.0 H Seg Neutrophils # Man 9.0 H Lymphocytes # (Manual) 0.0 L Monocytes # (Manual) INR APTT D-Dimer ABG pH 7.531 H POC ABG pCO2 POC ABG pO2 ABG pO2 49.6 L ABG HCO3 31.4 H ABG O2 Saturation 99.6 H ABG Base Excess 8.1 H ABG Hemoglobin 7.2 L ABG Oxyhemoglobin ABG Potassium ABG Chloride ABG Glucose Oxyhemoglobin Potassium Chloride Carbon Dioxide BUN Creatinine Glucose POC Glucose 127 H Lactic Acid Calcium Phosphorus Magnesium AST ALT Alkaline Phosphatase Ammonia Troponin T Total Protein Albumin Triglycerides HDL Cholesterol Lipase Arterial Blood Glucose Arterial Blood Ionized Calcium Acetaminophen Crossmatch 03/19/21 03/19/21 03/19/21 04:59 10:37 12:00 WBC RBC Hgb Hct MCV MCH MCHC RDW Plt Count Seg Neuts % (Manual) Lymphocytes % (Manual) Monocytes % (Manual) Nucleated RBC % Seg Neutrophils # Man Lymphocytes # (Manual) Monocytes # (Manual) INR APTT D-Dimer ABG pH 7.494 H POC ABG pCO2 POC ABG pO2 ABG pO2 107.3 H ABG HCO3 31.6 H ABG O2 Saturation ABG Base Excess 7.7 H ABG Hemoglobin 7.1 L ABG Oxyhemoglobin ABG Potassium ABG Chloride ABG Glucose Oxyhemoglobin Potassium Chloride 89.5 L Carbon Dioxide BUN Creatinine Glucose 121 H POC Glucose Lactic Acid Calcium Phosphorus Magnesium AST 359 H ALT 1434 H Alkaline Phosphatase Ammonia Troponin T Total Protein 5.7 L Albumin 3.5 L Triglycerides HDL Cholesterol Lipase Arterial Blood Glucose Arterial Blood Ionized Calcium Acetaminophen Crossmatch 03/19/21 03/19/21 03/19/21 12:05 17:52 23:23 WBC RBC Hgb Hct MCV MCH MCHC RDW Plt Count Seg Neuts % (Manual) Lymphocytes % (Manual) Monocytes % (Manual) Nucleated RBC % Seg Neutrophils # Man Lymphocytes # (Manual) Monocytes # (Manual) INR APTT D-Dimer ABG pH POC ABG pCO2 POC ABG pO2 ABG pO2 ABG HCO3 ABG O2 Saturation ABG Base Excess ABG Hemoglobin ABG Oxyhemoglobin ABG Potassium ABG Chloride ABG Glucose Oxyhemoglobin Potassium Chloride Carbon Dioxide BUN Creatinine Glucose POC Glucose 122 H 114 H 187 H Lactic Acid Calcium Phosphorus Magnesium AST ALT Alkaline Phosphatase Ammonia Troponin T Total Protein Albumin Triglycerides HDL Cholesterol Lipase Arterial Blood Glucose Arterial Blood Ionized Calcium Acetaminophen Crossmatch 03/19/21 03/20/21 03/20/21 Unknown 03:50 03:57 WBC RBC Hgb Hct MCV MCH MCHC RDW Plt Count Seg Neuts % (Manual) Lymphocytes % (Manual) Monocytes % (Manual) Nucleated RBC % Seg Neutrophils # Man Lymphocytes # (Manual) Monocytes # (Manual) INR APTT D-Dimer ABG pH 7.477 H POC ABG pCO2 POC ABG pO2 ABG pO2 67.9 L ABG HCO3 33.9 H ABG O2 Saturation ABG Base Excess 9.5 H ABG Hemoglobin 6.7 L ABG Oxyhemoglobin ABG Potassium ABG Chloride ABG Glucose Oxyhemoglobin Potassium Chloride Carbon Dioxide BUN Creatinine Glucose POC Glucose 247 H Lactic Acid Calcium Phosphorus Magnesium AST ALT Alkaline Phosphatase Ammonia Troponin T Total Protein Albumin Triglycerides HDL Cholesterol Lipase 12 L Arterial Blood Glucose Arterial Blood Ionized Calcium Acetaminophen Crossmatch 03/20/21 03/20/21 03/20/21 04:18 04:18 10:16 WBC RBC 3.48 L Hgb 7.0 L Hct 25.3 L MCV 73 L MCH 20 L MCHC 28 L RDW 25.2 H Plt Count 541 H Seg Neuts % (Manual) Lymphocytes % (Manual) Monocytes % (Manual) Nucleated RBC % Seg Neutrophils # Man Lymphocytes # (Manual) Monocytes # (Manual) INR APTT D-Dimer ABG pH POC ABG pCO2 POC ABG pO2 ABG pO2 63.3 L ABG HCO3 34.0 H ABG O2 Saturation 90.0 L ABG Base Excess 7.9 H ABG Hemoglobin 10.5 L ABG Oxyhemoglobin ABG Potassium ABG Chloride ABG Glucose Oxyhemoglobin 88.1 L Potassium Chloride 91.6 L Carbon Dioxide BUN 22 H Creatinine Glucose 245 H POC Glucose Lactic Acid Calcium Phosphorus Magnesium AST 148 H ALT 1096 H Alkaline Phosphatase 133 H Ammonia Troponin T Total Protein Albumin 3.5 L Triglycerides HDL Cholesterol Lipase Arterial Blood Glucose Arterial Blood Ionized Calcium Acetaminophen Crossmatch 03/20/21 03/20/21 03/21/21 12:05 17:26 00:18 WBC RBC Hgb Hct MCV MCH MCHC RDW Plt Count Seg Neuts % (Manual) Lymphocytes % (Manual) Monocytes % (Manual) Nucleated RBC % Seg Neutrophils # Man Lymphocytes # (Manual) Monocytes # (Manual) INR APTT D-Dimer ABG pH POC ABG pCO2 POC ABG pO2 ABG pO2 ABG HCO3 ABG O2 Saturation ABG Base Excess ABG Hemoglobin ABG Oxyhemoglobin ABG Potassium ABG Chloride ABG Glucose Oxyhemoglobin Potassium Chloride Carbon Dioxide BUN Creatinine Glucose POC Glucose 226 H 215 H 323 H Lactic Acid Calcium Phosphorus Magnesium AST ALT Alkaline Phosphatase Ammonia Troponin T Total Protein Albumin Triglycerides HDL Cholesterol Lipase Arterial Blood Glucose Arterial Blood Ionized Calcium Acetaminophen Crossmatch 03/21/21 03/21/21 03/21/21 04:00 05:05 09:28 WBC 12.0 H RBC 3.42 L Hgb 6.8 L Hct 25.3 L MCV 74 L MCH 20 L MCHC 27 L RDW 25.1 H Plt Count 650 H Seg Neuts % (Manual) Lymphocytes % (Manual) Monocytes % (Manual) Nucleated RBC % Seg Neutrophils # Man Lymphocytes # (Manual) Monocytes # (Manual) INR APTT D-Dimer ABG pH 7.348 L POC ABG pCO2 POC ABG pO2 ABG pO2 56.3 L ABG HCO3 36.9 H ABG O2 Saturation 83.4 L ABG Base Excess 10.0 H ABG Hemoglobin 7.0 L ABG Oxyhemoglobin ABG Potassium ABG Chloride ABG Glucose Oxyhemoglobin 81.7 L Potassium Chloride Carbon Dioxide BUN Creatinine Glucose POC Glucose 311 H Lactic Acid Calcium Phosphorus Magnesium AST ALT Alkaline Phosphatase Ammonia Troponin T Total Protein Albumin Triglycerides HDL Cholesterol Lipase Arterial Blood Glucose Arterial Blood Ionized Calcium Acetaminophen Crossmatch 03/21/21 03/21/21 03/21/21 09:28 12:31 14:08 WBC RBC Hgb Hct MCV MCH MCHC RDW Plt Count Seg Neuts % (Manual) Lymphocytes % (Manual) Monocytes % (Manual) Nucleated RBC % Seg Neutrophils # Man Lymphocytes # (Manual) Monocytes # (Manual) INR APTT D-Dimer ABG pH POC ABG pCO2 POC ABG pO2 ABG pO2 ABG HCO3 ABG O2 Saturation ABG Base Excess ABG Hemoglobin ABG Oxyhemoglobin ABG Potassium ABG Chloride ABG Glucose Oxyhemoglobin Potassium 5.1 H D Chloride 94.4 L Carbon Dioxide 33 H BUN 32 H Creatinine Glucose 319 H POC Glucose 295 H Lactic Acid Calcium Phosphorus Magnesium 2.40 H AST ALT 697 H Alkaline Phosphatase 134 H Ammonia Troponin T Total Protein 5.8 L Albumin 3.4 L Triglycerides HDL Cholesterol Lipase Arterial Blood Glucose Arterial Blood Ionized Calcium Acetaminophen Crossmatch See Detail 03/22/21 03/22/21 03/22/21 00:14 04:30 04:39 WBC RBC Hgb Hct MCV MCH MCHC RDW Plt Count Seg Neuts % (Manual) Lymphocytes % (Manual) Monocytes % (Manual) Nucleated RBC % Seg Neutrophils # Man Lymphocytes # (Manual) Monocytes # (Manual) INR APTT D-Dimer ABG pH 7.310 L POC ABG pCO2 POC ABG pO2 ABG pO2 65.4 L ABG HCO3 38.3 H ABG O2 Saturation 90.8 L ABG Base Excess 10.9 H ABG Hemoglobin 6.4 L ABG Oxyhemoglobin ABG Potassium ABG Chloride ABG Glucose Oxyhemoglobin 88.7 L Potassium Chloride Carbon Dioxide BUN Creatinine Glucose POC Glucose 326 H Lactic Acid Calcium Phosphorus Magnesium AST ALT Alkaline Phosphatase Ammonia Troponin T Total Protein Albumin Triglycerides 189 H HDL Cholesterol Lipase Arterial Blood Glucose Arterial Blood Ionized Calcium Acetaminophen Crossmatch 03/22/21 03/22/21 03/22/21 04:39 04:39 09:45 WBC 12.8 H RBC 3.34 L Hgb 6.6 L Hct 24.5 L MCV 73 L MCH 20 L MCHC 27 L RDW 25.5 H Plt Count 644 H Seg Neuts % (Manual) Lymphocytes % (Manual) Monocytes % (Manual) Nucleated RBC % Seg Neutrophils # Man Lymphocytes # (Manual) Monocytes # (Manual) INR APTT D-Dimer ABG pH POC ABG pCO2 65.7 H POC ABG pO2 59.7 L ABG pO2 ABG HCO3 ABG O2 Saturation ABG Base Excess ABG Hemoglobin 8.0 L ABG Oxyhemoglobin 86.3 L ABG Potassium 4.7 H ABG Chloride 94.0 L ABG Glucose 208 H Oxyhemoglobin Potassium 5.3 H Chloride 94.6 L Carbon Dioxide 34 H BUN 33 H Creatinine Glucose 291 H POC Glucose Lactic Acid Calcium Phosphorus Magnesium AST ALT Alkaline Phosphatase Ammonia Troponin T Total Protein Albumin Triglycerides HDL Cholesterol Lipase Arterial Blood Glucose 208 H Arterial Blood Ionized Calcium Acetaminophen Crossmatch 03/22/21 03/22/21 03/23/21 21:33 23:58 04:42 WBC 14.3 H RBC 3.63 L Hgb 7.6 L Hct 27.0 L MCV 74 L MCH 21 L MCHC 28 L RDW 23.1 H Plt Count 567 H Seg Neuts % (Manual) Lymphocytes % (Manual) Monocytes % (Manual) Nucleated RBC % Seg Neutrophils # Man Lymphocytes # (Manual) Monocytes # (Manual) INR APTT D-Dimer ABG pH POC ABG pCO2 POC ABG pO2 ABG pO2 ABG HCO3 ABG O2 Saturation ABG Base Excess ABG Hemoglobin ABG Oxyhemoglobin ABG Potassium ABG Chloride ABG Glucose Oxyhemoglobin Potassium Chloride Carbon Dioxide BUN Creatinine Glucose POC Glucose 170 H 156 H Lactic Acid Calcium Phosphorus Magnesium AST ALT Alkaline Phosphatase Ammonia Troponin T Total Protein Albumin Triglycerides HDL Cholesterol Lipase Arterial Blood Glucose Arterial Blood Ionized Calcium Acetaminophen Crossmatch 03/23/21 03/23/21 03/23/21 04:42 04:50 22:25 WBC RBC Hgb Hct MCV MCH MCHC RDW Plt Count Seg Neuts % (Manual) Lymphocytes % (Manual) Monocytes % (Manual) Nucleated RBC % Seg Neutrophils # Man Lymphocytes # (Manual) Monocytes # (Manual) INR APTT D-Dimer ABG pH POC ABG pCO2 POC ABG pO2 ABG pO2 70.7 L ABG HCO3 41.7 H ABG O2 Saturation ABG Base Excess 15.2 H ABG Hemoglobin 5.6 L ABG Oxyhemoglobin ABG Potassium ABG Chloride ABG Glucose Oxyhemoglobin Potassium Chloride 94.6 L Carbon Dioxide 37 H BUN 27 H Creatinine Glucose 311 H POC Glucose 295 H Lactic Acid Calcium Phosphorus Magnesium AST ALT Alkaline Phosphatase Ammonia Troponin T Total Protein Albumin Triglycerides HDL Cholesterol Lipase Arterial Blood Glucose Arterial Blood Ionized Calcium Acetaminophen Crossmatch 03/23/21 03/24/21 03/24/21 23:13 05:13 07:59 WBC RBC Hgb Hct MCV MCH MCHC RDW Plt Count Seg Neuts % (Manual) Lymphocytes % (Manual) Monocytes % (Manual) Nucleated RBC % Seg Neutrophils # Man Lymphocytes # (Manual) Monocytes # (Manual) INR APTT D-Dimer ABG pH POC ABG pCO2 POC ABG pO2 ABG pO2 ABG HCO3 ABG O2 Saturation ABG Base Excess ABG Hemoglobin ABG Oxyhemoglobin ABG Potassium ABG Chloride ABG Glucose Oxyhemoglobin Potassium Chloride Carbon Dioxide BUN Creatinine Glucose POC Glucose 336 H 303 H 333 H Lactic Acid Calcium Phosphorus Magnesium AST ALT Alkaline Phosphatase Ammonia Troponin T Total Protein Albumin Triglycerides HDL Cholesterol Lipase Arterial Blood Glucose Arterial Blood Ionized Calcium Acetaminophen Crossmatch 03/24/21 03/24/21 03/24/21 08:03 08:03 08:57 WBC 12.7 H RBC 3.48 L Hgb 7.3 L Hct 26.3 L MCV 76 L MCH 21 L MCHC 28 L RDW 24.1 H Plt Count 499 H Seg Neuts % (Manual) Lymphocytes % (Manual) 1.0 L Monocytes % (Manual) 16.0 H Nucleated RBC % 11.0 H Seg Neutrophils # Man 8.1 H Lymphocytes # (Manual) 0.1 L Monocytes # (Manual) 2.1 H INR APTT D-Dimer ABG pH 7.477 H POC ABG pCO2 56.9 H POC ABG pO2 ABG pO2 ABG HCO3 ABG O2 Saturation ABG Base Excess ABG Hemoglobin 8.0 L ABG Oxyhemoglobin ABG Potassium ABG Chloride 93.0 L ABG Glucose 328 H Oxyhemoglobin Potassium Chloride 94.4 L Carbon Dioxide 38 H BUN 26 H Creatinine 0.5 L Glucose 348 H POC Glucose Lactic Acid Calcium Phosphorus Magnesium AST ALT Alkaline Phosphatase Ammonia Troponin T Total Protein Albumin Triglycerides HDL Cholesterol Lipase Arterial Blood Glucose 328 H Arterial Blood Ionized Calcium 4.5 L Acetaminophen Crossmatch 03/24/21 03/24/21 03/25/21 12:14 17:45 04:00 WBC 15.8 H RBC Hgb 7.5 L Hct 27.4 L MCV 75 L MCH 21 L MCHC 28 L RDW 24.0 H Plt Count 576 H Seg Neuts % (Manual) Lymphocytes % (Manual) Monocytes % (Manual) Nucleated RBC % Seg Neutrophils # Man Lymphocytes # (Manual) Monocytes # (Manual) INR APTT D-Dimer ABG pH POC ABG pCO2 POC ABG pO2 ABG pO2 ABG HCO3 ABG O2 Saturation ABG Base Excess ABG Hemoglobin ABG Oxyhemoglobin ABG Potassium ABG Chloride ABG Glucose Oxyhemoglobin Potassium Chloride Carbon Dioxide BUN Creatinine Glucose POC Glucose 315 H 324 H Lactic Acid Calcium Phosphorus Magnesium AST ALT Alkaline Phosphatase Ammonia Troponin T Total Protein Albumin Triglycerides HDL Cholesterol Lipase Arterial Blood Glucose Arterial Blood Ionized Calcium Acetaminophen Crossmatch 03/25/21 03/25/21 03/25/21 07:52 16:37 17:38 WBC RBC Hgb Hct MCV MCH MCHC RDW Plt Count Seg Neuts % (Manual) Lymphocytes % (Manual) Monocytes % (Manual) Nucleated RBC % Seg Neutrophils # Man Lymphocytes # (Manual) Monocytes # (Manual) INR APTT D-Dimer ABG pH POC ABG pCO2 POC ABG pO2 ABG pO2 ABG HCO3 ABG O2 Saturation ABG Base Excess ABG Hemoglobin ABG Oxyhemoglobin ABG Potassium ABG Chloride ABG Glucose Oxyhemoglobin Potassium Chloride 95.9 L Carbon Dioxide 33 H BUN 24 H Creatinine 0.4 L Glucose 289 H POC Glucose 321 H 295 H Lactic Acid Calcium Phosphorus Magnesium AST ALT Alkaline Phosphatase Ammonia Troponin T Total Protein Albumin Triglycerides HDL Cholesterol Lipase Arterial Blood Glucose Arterial Blood Ionized Calcium Acetaminophen Crossmatch 03/25/21 03/26/21 03/26/21 23:27 05:07 05:35 WBC 20.0 H RBC 3.37 L Hgb 7.0 L Hct 25.2 L MCV 75 L MCH 21 L MCHC 28 L RDW 24.0 H Plt Count 544 H Seg Neuts % (Manual) 72.0 H Lymphocytes % (Manual) 6.0 L Monocytes % (Manual) 8.0 H Nucleated RBC % Seg Neutrophils # Man 14.4 H Lymphocytes # (Manual) Monocytes # (Manual) 1.6 H INR APTT D-Dimer ABG pH POC ABG pCO2 POC ABG pO2 ABG pO2 ABG HCO3 ABG O2 Saturation ABG Base Excess ABG Hemoglobin ABG Oxyhemoglobin ABG Potassium ABG Chloride ABG Glucose Oxyhemoglobin Potassium Chloride Carbon Dioxide BUN Creatinine Glucose POC Glucose 231 H 200 H Lactic Acid Calcium Phosphorus Magnesium AST ALT Alkaline Phosphatase Ammonia Troponin T Total Protein Albumin Triglycerides HDL Cholesterol Lipase Arterial Blood Glucose Arterial Blood Ionized Calcium Acetaminophen Crossmatch 03/26/21 03/26/21 03/26/21 05:35 10:33 12:12 WBC RBC Hgb Hct MCV MCH MCHC RDW Plt Count Seg Neuts % (Manual) Lymphocytes % (Manual) Monocytes % (Manual) Nucleated RBC % Seg Neutrophils # Man Lymphocytes # (Manual) Monocytes # (Manual) INR APTT D-Dimer ABG pH POC ABG pCO2 POC ABG pO2 ABG pO2 ABG HCO3 ABG O2 Saturation ABG Base Excess ABG Hemoglobin ABG Oxyhemoglobin ABG Potassium ABG Chloride ABG Glucose Oxyhemoglobin Potassium 5.9 H D Chloride 91.9 L Carbon Dioxide 33 H BUN 20 H Creatinine 0.4 L Glucose 197 H POC Glucose 132 H 176 H Lactic Acid Calcium Phosphorus Magnesium AST ALT 169 H Alkaline Phosphatase 138 H Ammonia Troponin T Total Protein 5.5 L Albumin 3.2 L Triglycerides HDL Cholesterol Lipase Arterial Blood Glucose Arterial Blood Ionized Calcium Acetaminophen Crossmatch 03/26/21 03/26/21 03/26/21 16:50 18:06 22:19 WBC RBC Hgb Hct MCV MCH MCHC RDW Plt Count Seg Neuts % (Manual) Lymphocytes % (Manual) Monocytes % (Manual) Nucleated RBC % Seg Neutrophils # Man Lymphocytes # (Manual) Monocytes # (Manual) INR APTT D-Dimer ABG pH POC ABG pCO2 POC ABG pO2 ABG pO2 ABG HCO3 ABG O2 Saturation ABG Base Excess ABG Hemoglobin ABG Oxyhemoglobin ABG Potassium ABG Chloride ABG Glucose Oxyhemoglobin Potassium 5.2 H Chloride 91.7 L Carbon Dioxide 38 H BUN 19 H Creatinine 0.4 L Glucose 260 H POC Glucose 248 H 168 H Lactic Acid Calcium Phosphorus Magnesium AST ALT Alkaline Phosphatase Ammonia Troponin T Total Protein Albumin Triglycerides HDL Cholesterol Lipase Arterial Blood Glucose Arterial Blood Ionized Calcium Acetaminophen Crossmatch 03/27/21 03/27/21 03/27/21 01:02 01:32 04:15 WBC 21.4 H RBC 3.45 L Hgb 6.9 L Hct 26.2 L MCV 76 L MCH 20 L MCHC 27 L RDW 24.5 H Plt Count 500 H Seg Neuts % (Manual) Lymphocytes % (Manual) Monocytes % (Manual) Nucleated RBC % Seg Neutrophils # Man Lymphocytes # (Manual) Monocytes # (Manual) INR APTT D-Dimer ABG pH POC ABG pCO2 POC ABG pO2 ABG pO2 ABG HCO3 ABG O2 Saturation ABG Base Excess ABG Hemoglobin ABG Oxyhemoglobin ABG Potassium ABG Chloride ABG Glucose Oxyhemoglobin Potassium Chloride Carbon Dioxide BUN Creatinine Glucose POC Glucose 219 H 221 H Lactic Acid Calcium Phosphorus Magnesium AST ALT Alkaline Phosphatase Ammonia Troponin T Total Protein Albumin Triglycerides HDL Cholesterol Lipase Arterial Blood Glucose Arterial Blood Ionized Calcium Acetaminophen Crossmatch 03/27/21 03/27/21 03/27/21 04:15 06:37 11:21 WBC RBC Hgb Hct MCV MCH MCHC RDW Plt Count Seg Neuts % (Manual) Lymphocytes % (Manual) Monocytes % (Manual) Nucleated RBC % Seg Neutrophils # Man Lymphocytes # (Manual) Monocytes # (Manual) INR APTT D-Dimer ABG pH POC ABG pCO2 POC ABG pO2 ABG pO2 ABG HCO3 ABG O2 Saturation ABG Base Excess ABG Hemoglobin ABG Oxyhemoglobin ABG Potassium ABG Chloride ABG Glucose Oxyhemoglobin Potassium 5.3 H Chloride 94.4 L Carbon Dioxide 35 H BUN 20 H Creatinine 0.4 L Glucose 310 H POC Glucose 312 H 273 H Lactic Acid Calcium 8.3 L Phosphorus 4.60 H D Magnesium AST ALT Alkaline Phosphatase Ammonia Troponin T Total Protein Albumin Triglycerides HDL Cholesterol Lipase Arterial Blood Glucose Arterial Blood Ionized Calcium Acetaminophen Crossmatch 03/27/21 03/27/21 03/28/21 16:14 21:21 00:16 WBC RBC Hgb Hct MCV MCH MCHC RDW Plt Count Seg Neuts % (Manual) Lymphocytes % (Manual) Monocytes % (Manual) Nucleated RBC % Seg Neutrophils # Man Lymphocytes # (Manual) Monocytes # (Manual) INR APTT D-Dimer ABG pH POC ABG pCO2 POC ABG pO2 ABG pO2 ABG HCO3 ABG O2 Saturation ABG Base Excess ABG Hemoglobin ABG Oxyhemoglobin ABG Potassium ABG Chloride ABG Glucose Oxyhemoglobin Potassium Chloride Carbon Dioxide BUN Creatinine Glucose POC Glucose 241 H 179 H 160 H Lactic Acid Calcium Phosphorus Magnesium AST ALT Alkaline Phosphatase Ammonia Troponin T Total Protein Albumin Triglycerides HDL Cholesterol Lipase Arterial Blood Glucose Arterial Blood Ionized Calcium Acetaminophen Crossmatch 03/28/21 03/28/21 03/28/21 04:00 04:00 05:41 WBC 27.1 H RBC 3.46 L Hgb 7.1 L Hct 26.1 L MCV 76 L MCH 20 L MCHC 27 L RDW 24.0 H Plt Count 541 H Seg Neuts % (Manual) Lymphocytes % (Manual) Monocytes % (Manual) Nucleated RBC % Seg Neutrophils # Man Lymphocytes # (Manual) Monocytes # (Manual) INR APTT D-Dimer ABG pH POC ABG pCO2 POC ABG pO2 ABG pO2 ABG HCO3 ABG O2 Saturation ABG Base Excess ABG Hemoglobin ABG Oxyhemoglobin ABG Potassium ABG Chloride ABG Glucose Oxyhemoglobin Potassium Chloride 95.7 L Carbon Dioxide 36 H BUN 23 H Creatinine 0.4 L Glucose 295 H POC Glucose 279 H Lactic Acid Calcium Phosphorus Magnesium AST ALT Alkaline Phosphatase Ammonia Troponin T Total Protein Albumin Triglycerides HDL Cholesterol Lipase Arterial Blood Glucose Arterial Blood Ionized Calcium Acetaminophen Crossmatch 03/28/21 03/28/21 03/28/21 11:50 16:45 23:15 WBC RBC Hgb Hct MCV MCH MCHC RDW Plt Count Seg Neuts % (Manual) Lymphocytes % (Manual) Monocytes % (Manual) Nucleated RBC % Seg Neutrophils # Man Lymphocytes # (Manual) Monocytes # (Manual) INR APTT D-Dimer ABG pH POC ABG pCO2 POC ABG pO2 ABG pO2 ABG HCO3 ABG O2 Saturation ABG Base Excess ABG Hemoglobin ABG Oxyhemoglobin ABG Potassium ABG Chloride ABG Glucose Oxyhemoglobin Potassium Chloride Carbon Dioxide BUN Creatinine Glucose POC Glucose 233 H 240 H 189 H Lactic Acid Calcium Phosphorus Magnesium AST ALT Alkaline Phosphatase Ammonia Troponin T Total Protein Albumin Triglycerides HDL Cholesterol Lipase Arterial Blood Glucose Arterial Blood Ionized Calcium Acetaminophen Crossmatch 03/29/21 03/29/21 03/29/21 04:35 04:35 05:05 WBC 29.6 H RBC 3.18 L Hgb 6.7 L Hct 24.2 L MCV 76 L MCH 21 L MCHC 28 L RDW 24.0 H Plt Count 678 H Seg Neuts % (Manual) Lymphocytes % (Manual) Monocytes % (Manual) Nucleated RBC % Seg Neutrophils # Man Lymphocytes # (Manual) Monocytes # (Manual) INR APTT D-Dimer ABG pH POC ABG pCO2 POC ABG pO2 ABG pO2 ABG HCO3 ABG O2 Saturation ABG Base Excess ABG Hemoglobin ABG Oxyhemoglobin ABG Potassium ABG Chloride ABG Glucose Oxyhemoglobin Potassium Chloride 95.4 L Carbon Dioxide 37 H BUN 22 H Creatinine 0.4 L Glucose 194 H POC Glucose 195 H Lactic Acid Calcium Phosphorus Magnesium AST ALT Alkaline Phosphatase Ammonia Troponin T Total Protein Albumin Triglycerides HDL Cholesterol Lipase Arterial Blood Glucose Arterial Blood Ionized Calcium Acetaminophen Crossmatch 03/29/21 03/29/21 03/29/21 09:24 10:58 17:14 WBC RBC Hgb Hct MCV MCH MCHC RDW Plt Count Seg Neuts % (Manual) Lymphocytes % (Manual) Monocytes % (Manual) Nucleated RBC % Seg Neutrophils # Man Lymphocytes # (Manual) Monocytes # (Manual) INR APTT D-Dimer ABG pH POC ABG pCO2 POC ABG pO2 ABG pO2 ABG HCO3 ABG O2 Saturation ABG Base Excess ABG Hemoglobin ABG Oxyhemoglobin ABG Potassium ABG Chloride ABG Glucose Oxyhemoglobin Potassium Chloride Carbon Dioxide BUN Creatinine Glucose POC Glucose 106 H 117 H Lactic Acid Calcium Phosphorus Magnesium AST ALT Alkaline Phosphatase Ammonia Troponin T Total Protein Albumin Triglycerides HDL Cholesterol Lipase Arterial Blood Glucose Arterial Blood Ionized Calcium Acetaminophen Crossmatch See Detail 03/29/21 03/29/21 03/30/21 19:32 23:36 01:49 WBC 25.1 H RBC Hgb 9.3 L Hct MCV 77 L MCH 23 L MCHC RDW 22.7 H Plt Count 599 H Seg Neuts % (Manual) Lymphocytes % (Manual) Monocytes % (Manual) Nucleated RBC % Seg Neutrophils # Man Lymphocytes # (Manual) Monocytes # (Manual) INR APTT D-Dimer ABG pH POC ABG pCO2 POC ABG pO2 ABG pO2 ABG HCO3 ABG O2 Saturation ABG Base Excess ABG Hemoglobin ABG Oxyhemoglobin ABG Potassium ABG Chloride ABG Glucose Oxyhemoglobin Potassium Chloride Carbon Dioxide BUN Creatinine Glucose POC Glucose 57 L 55 L Lactic Acid Calcium Phosphorus Magnesium AST ALT Alkaline Phosphatase Ammonia Troponin T Total Protein Albumin Triglycerides HDL Cholesterol Lipase Arterial Blood Glucose Arterial Blood Ionized Calcium Acetaminophen Crossmatch 03/30/21 04:00 WBC RBC Hgb Hct MCV MCH MCHC RDW Plt Count Seg Neuts % (Manual) Lymphocytes % (Manual) Monocytes % (Manual) Nucleated RBC % Seg Neutrophils # Man Lymphocytes # (Manual) Monocytes # (Manual) INR APTT D-Dimer ABG pH POC ABG pCO2 POC ABG pO2 ABG pO2 ABG HCO3 ABG O2 Saturation ABG Base Excess ABG Hemoglobin ABG Oxyhemoglobin ABG Potassium ABG Chloride ABG Glucose Oxyhemoglobin Potassium Chloride 93.4 L Carbon Dioxide 34 H BUN 18 H Creatinine 0.3 L Glucose 114 H POC Glucose Lactic Acid Calcium Phosphorus 4.70 H Magnesium AST ALT Alkaline Phosphatase Ammonia Troponin T Total Protein Albumin Triglycerides HDL Cholesterol Lipase Arterial Blood Glucose Arterial Blood Ionized Calcium Acetaminophen Crossmatch
[2021-03-30] MEDS: LORazepam 2 MG/ML VIAL IV PRN ×2 (12:28→18:15)
[2021-03-30] MEDS: HALOPERIDOL LACTATE 5 MG/1 ML INJ IV PRN ×2 (12:28→21:00)
[2021-03-30] MEDS: D5W/0.45% NACL 1,000 ML IV SCH (12:29)
--- NOTE | 2021-03-30 12:41 | Progress Note ---
Assessment and Plan - Patient Problems (1) Respiratory failure Current Visit: Yes Status: Acute Plan to address problem: Patient with long history of severe, oxygen dependent COPD, presented with respiratory failure due to COPD exacerbation. Sinus tachycardia on presentation is now resolved. Continue supportive management and current treatment of COPD exacerbation. Subjective Date of service: 03/30/21 Principal diagnosis: Atrial fibrillation with RVR, respiratory failure Interval history: Patient is on BiPAP, no acute distress. On nursery hand there is a stable sinus rhythm. Objective Vital Signs Temp Pulse Pulse Pulse Resp Resp BP 03/30/21 11:59 03/30/21 11:47 98.2 F 03/30/21 11:26 80 14 119/63 03/30/21 09:33 93 H 22 03/30/21 08:51 03/30/21 07:47 98.7 F 03/30/21 07:31 80 14 119/63 03/30/21 07:00 85 16 115/63 03/30/21 06:31 74 14 115/64 03/30/21 06:01 81 17 120/67 03/30/21 05:31 69 16 03/30/21 05:01 80 16 03/30/21 04:01 88 15 85/67 03/30/21 04:00 98.5 F 81 81 16 03/30/21 03:01 65 16 84/49 03/30/21 02:30 54 L 16 84/49 03/30/21 02:00 46 L 17 93/60 03/30/21 01:30 65 16 77/51 03/30/21 01:00 77 15 93/57 03/30/21 00:30 69 17 113/65 03/30/21 00:00 70 79 16 113/65 03/29/21 23:48 98.8 F 03/29/21 23:30 113 H 21 100/60 03/29/21 23:00 74 16 93/59 03/29/21 22:30 66 18 119/68 03/29/21 22:00 89 14 109/61 03/29/21 21:30 70 18 110/68 03/29/21 21:00 72 17 114/63 03/29/21 20:30 74 16 145/53 03/29/21 20:14 70 22 03/29/21 20:09 80 17 145/53 03/29/21 20:00 81 73 22 142/80 03/29/21 19:39 98.2 F 03/29/21 19:30 74 20 127/46 03/29/21 19:00 76 17 141/103 03/29/21 18:30 82 17 140/81 03/29/21 18:00 81 136/89 03/29/21 17:30 95 H 133/82 03/29/21 17:00 83 133/82 03/29/21 16:30 76 13 134/89 03/29/21 16:00 97.1 F L 84 84 19 124/80 03/29/21 15:44 98 H 17 124/80 03/29/21 15:30 77 16 130/86 03/29/21 15:00 78 13 130/86 03/29/21 14:30 78 15 125/76 03/29/21 14:00 80 16 113/77 03/29/21 13:48 97.6 F 82 15 116/75 03/29/21 13:33 98.1 F 78 20 109/76 03/29/21 13:30 86 16 126/79 03/29/21 13:00 83 15 143/74 Pulse Ox 03/30/21 11:59 99 03/30/21 11:47 03/30/21 11:26 99 03/30/21 09:33 03/30/21 08:51 99 03/30/21 07:47 03/30/21 07:31 100 03/30/21 07:00 100 03/30/21 06:31 100 03/30/21 06:01 100 03/30/21 05:31 96 03/30/21 05:01 99 03/30/21 04:01 100 03/30/21 04:00 100 03/30/21 03:01 100 03/30/21 02:30 100 03/30/21 02:00 100 03/30/21 01:30 100 03/30/21 01:00 100 03/30/21 00:30 100 03/30/21 00:00 100 03/29/21 23:48 03/29/21 23:30 100 03/29/21 23:00 100 03/29/21 22:30 100 03/29/21 22:00 100 03/29/21 21:30 03/29/21 21:00 03/29/21 20:30 03/29/21 20:14 03/29/21 20:09 03/29/21 20:00 03/29/21 19:39 03/29/21 19:30 03/29/21 19:00 03/29/21 18:30 03/29/21 18:00 03/29/21 17:30 03/29/21 17:00 03/29/21 16:30 03/29/21 16:00 03/29/21 15:44 03/29/21 15:30 03/29/21 15:00 03/29/21 14:30 03/29/21 14:00 03/29/21 13:48 03/29/21 13:33 03/29/21 13:30 03/29/21 13:00 100 - Physical Examination General: Other (On BiPAP) HEENT: Positive: PERRL Neck: Positive: neck supple Cardiac: Positive: Reg Rate and Rhythm Lungs: Positive: Decreased Breath Sounds Neuro: Positive: Grossly Intact Abdomen: Positive: Soft Skin: Positive: Clear Extremities: Absent: edema - Labs and Meds CBC 03/29/21 Range/Units 19:32 WBC 25.1 H (4.5-11.0) K/mm3 RBC 4.06 (3.65-5.03) M/mm3 Hgb 9.3 L (10.1-14.3) gm/dl Hct 31.3 D (30.3-42.9) % Plt Count 599 H (140-440) K/mm3 Comprehensive Metabolic Panel 03/30/21 Range/Units 04:00 Sodium 139 (137-145) mmol/L Potassium 3.7 (3.6-5.0) mmol/L Chloride 93.4 L (98-107) mmol/L Carbon Dioxide 34 H (22-30) mmol/L BUN 18 H (7-17) mg/dL Creatinine 0.3 L (0.6-1.2) mg/dL Glucose 114 H (65-100) mg/dL Calcium 8.6 (8.4-10.2) mg/dL
--- NOTE | 2021-03-30 13:04 | Electrocardiograph Report ---
[facility] Test Date: 2021-03-29 Test Time: 08:03:02 Pat Name: LUIS KHAN Department: Room: A254 1 Gender: F Director Nicu: WILL : 1960 Requested By: NYA MENESES Order Number: [id number] Reading MD: Mirian Aldrich Measurements Intervals [place] Rate: 115 P: 101 ID: [id number] QRS: 20 QRSD: 138 T: 84 QT: 352 QTc: 489 Interpretive Statements Very poor quality ECG Sinus tachycardia Occasional PVC Nonspecific intraventricular conduction delay Compared to ECG 03/19/2021 16:12:46 No significant change Electronically Signed On 03-30-2021 13:04:15 EST by Mirian Aldrich
[2021-03-30] MEDS ORDERED: METOPROLOL TARTRATE 5 MG/5 ML INJ IV ONE ×3 (21:06→22:37)
[2021-03-30] MEDS ORDERED: INSULIN GLARGINE 100 UNITS/ML SUB-Q SCH ×2 (22:00)
[2021-03-31] MEDS: D5W/0.45% NACL 1,000 ML IV SCH ×2 (00:26→14:00)
[2021-03-31] MEDS: HEPARIN 5,000 UNIT/1 ML VIAL SUB-Q SCH ×3 (05:12→22:54)
[2021-03-31] MEDS: INSULIN LISPRO 100 UNIT/ML SUB-Q SCH ×3 (05:16→18:26)
[2021-03-31] MEDS: DEXTROSE 50% IN WATER (25GM) 50 ML SYRINGE IV PRN (05:16)
[2021-03-31 05:17] LABS: Mean Corpuscular HGB Conc 28 % (30-34); Mean Corpuscular Volume 80 fl (79-97); Red Blood Count 4.13 M/mm3 (3.65-5.03)
[2021-03-31 05:26] LABS: Hemoglobin 9.3 gm/dl (10.1-14.3); Platelet Count 642 K/mm3 (140-440); Red Cell Distribution Width 22.3 % (13.2-15.2)
[2021-03-31 05:30] LABS: Blood Urea Nitrogen 15 mg/dL (7-17); Calcium 8.9 mg/dL (8.4-10.2); Hemolysis Index 71
[2021-03-31 05:36] LABS: BUN/Creatinine Ratio 50
[2021-03-31] MEDS: BUDESONIDE 0.5 MG/2 ML NEBU IH SCH ×2 (07:53→22:10)
[2021-03-31] MEDS: ARFORMOTEROL 15 MCG/2 ML NEBU IH SCH ×2 (07:53→22:10)
[2021-03-31] MEDS: LORazepam 2 MG/ML VIAL IV PRN ×3 (08:17→19:34)
[2021-03-31] MEDS: HALOPERIDOL LACTATE 5 MG/1 ML INJ IV PRN ×2 (08:18→15:37)
--- NOTE | 2021-03-31 09:39 | Progress Note ---
Assessment and Plan - Patient Problems (1) Acute hypercapnic respiratory failure Current Visit: Yes Status: Acute (2) Anemia Current Visit: Yes Status: Acute (3) COPD exacerbation Current Visit: Yes Status: Acute (4) Respiratory failure Current Visit: Yes Status: Acute (5) Acute bronchitis Current Visit: No Status: Acute (6) Acute respiratory failure with hypoxia Current Visit: No Status: Acute (7) CHF (congestive heart failure) Current Visit: No Status: Acute Qualifiers: Heart failure type: systolic (8) Chronic hypercapnic respiratory failure Current Visit: No Status: Acute (9) Debilitated patient Current Visit: No Status: Acute Subjective Principal diagnosis: Atrial fibrillation with RVR, respiratory failure Interval history: off bipap on o2 5 lpm Objective Vital Signs - 12hr 03/30/21 03/30/21 03/30/21 21:48 22:01 22:30 Temperature Pulse Rate 92 H 77 70 Pulse Rate [ Bilateral] Pulse Rate [ From Monitor] Respiratory 16 18 Rate Respiratory Rate [Bilateral ] Blood Pressure 149/80 149/80 89/52 O2 Sat by Pulse 83 L 99 Oximetry 03/30/21 03/30/21 03/30/21 23:01 23:03 23:30 Temperature Pulse Rate 70 69 77 Pulse Rate [ Bilateral] Pulse Rate [ From Monitor] Respiratory 16 16 11 L Rate Respiratory Rate [Bilateral ] Blood Pressure 96/60 96/60 108/66 O2 Sat by Pulse 100 100 100 Oximetry 03/31/21 03/31/21 03/31/21 00:00 00:01 00:20 Temperature 97.6 F Pulse Rate 75 83 74 Pulse Rate [ Bilateral] Pulse Rate [ 75 From Monitor] Respiratory 15 14 16 Rate Respiratory Rate [Bilateral ] Blood Pressure 118/93 118/61 O2 Sat by Pulse 100 100 100 Oximetry 03/31/21 03/31/21 03/31/21 00:30 01:01 01:30 Temperature Pulse Rate 75 72 67 Pulse Rate [ Bilateral] Pulse Rate [ From Monitor] Respiratory 15 16 16 Rate Respiratory Rate [Bilateral ] Blood Pressure 110/65 127/67 88/58 O2 Sat by Pulse 100 100 100 Oximetry 03/31/21 03/31/21 03/31/21 02:00 02:31 03:00 Temperature Pulse Rate 67 75 66 Pulse Rate [ Bilateral] Pulse Rate [ From Monitor] Respiratory 16 18 15 Rate Respiratory Rate [Bilateral ] Blood Pressure 102/64 103/76 95/58 O2 Sat by Pulse 100 100 100 Oximetry 03/31/21 03/31/21 03/31/21 03:30 04:00 04:31 Temperature 98.0 F Pulse Rate 65 104 H 65 Pulse Rate [ Bilateral] Pulse Rate [ 69 From Monitor] Respiratory 17 26 H 12 Rate Respiratory Rate [Bilateral ] Blood Pressure 95/62 169/89 111/59 O2 Sat by Pulse 100 100 100 Oximetry 03/31/21 03/31/21 03/31/21 05:01 05:30 06:00 Temperature Pulse Rate 106 H 96 H 80 Pulse Rate [ Bilateral] Pulse Rate [ From Monitor] Respiratory 22 21 17 Rate Respiratory Rate [Bilateral ] Blood Pressure 159/94 158/85 135/106 O2 Sat by Pulse 100 100 100 Oximetry 03/31/21 03/31/21 03/31/21 06:30 07:00 07:30 Temperature Pulse Rate 73 81 72 Pulse Rate [ Bilateral] Pulse Rate [ From Monitor] Respiratory 16 17 16 Rate Respiratory Rate [Bilateral ] Blood Pressure 131/83 131/83 131/83 O2 Sat by Pulse 100 100 100 Oximetry 03/31/21 03/31/21 03/31/21 07:53 07:55 08:00 Temperature Pulse Rate 99 H 102 H Pulse Rate [ 89 Bilateral] Pulse Rate [ From Monitor] Respiratory 25 H 28 H Rate Respiratory 22 Rate [Bilateral ] Blood Pressure 131/83 O2 Sat by Pulse 100 100 Oximetry 03/31/21 03/31/21 03/31/21 08:30 09:00 09:08 Temperature 97.6 F Pulse Rate 124 H 105 H Pulse Rate [ Bilateral] Pulse Rate [ From Monitor] Respiratory 26 H 22 Rate Respiratory Rate [Bilateral ] Blood Pressure 116/80 109/59 O2 Sat by Pulse 100 100 Oximetry Constitutional: other (critically ill on vent, sedated) Eyes: non-icteric ENT: oropharynx moist Neck: supple Effort: normal Ascultation: Bilateral: diminished breath sounds Cardiovascular: regular rate and rhythm (no mrg) Gastrointestinal: normoactive bowel sounds, soft, non-tender, non-distended Extremities: no cyanosis, no edema, pink and warm Neurologic: normal mental status, non-focal exam, pupils equal and round Psychiatric: mood appropriate, affect normal CBC and BMP: 03/31/21 04:41 03/31/21 04:41 ABG, PT/INR, D-dimer: ABG ABG pH 7.477 (7.320-7.450) H 03/24/21 08:57 POC ABG pCO2 56.9 mmHg (32.0-48.0) H 03/24/21 08:57 ABG pCO2 72.7 mm Hg 03/23/21 04:50 POC ABG pO2 100.6 mmHg (83-108) 03/24/21 08:57 ABG pO2 70.7 mm Hg (80.0-90.0) L 03/23/21 04:50 POC ABG HCO3 41.1 03/24/21 08:57 ABG O2 Saturation 98.3 (0-100) 03/24/21 08:57 PT/INR, D-dimer PT 12.6 Sec. (12.2-14.9) 03/17/21 17:37 INR 0.85 (0.87-1.13) L 03/17/21 17:37 D-Dimer 947.92 ng/mlDDU (0-234) H 03/17/21 17:37 Abnormal lab findings: Abnormal Labs 03/17/21 03/17/21 03/17/21 17:36 17:36 17:37 WBC 13.8 H RBC 3.48 L Hgb 7.0 L Hct 26.2 L MCV 75 L MCH 20 L MCHC 27 L RDW 25.4 H Plt Count Seg Neuts % (Manual) Lymphocytes % (Manual) Monocytes % (Manual) Nucleated RBC % 7.0 H Seg Neutrophils # Man 8.7 H Lymphocytes # (Manual) Monocytes # (Manual) INR 0.85 L APTT 23.3 L D-Dimer 947.92 H ABG pH POC ABG pCO2 POC ABG pO2 ABG pO2 ABG HCO3 ABG O2 Saturation ABG Base Excess ABG Hemoglobin ABG Oxyhemoglobin ABG Potassium ABG Chloride ABG Glucose Oxyhemoglobin Potassium Chloride 88.2 L Carbon Dioxide 38 H BUN Creatinine Glucose 129 H POC Glucose Lactic Acid Calcium Phosphorus Magnesium AST 177 H ALT 251 H Alkaline Phosphatase Ammonia Troponin T 0.036 H Total Protein 5.9 L Albumin 3.8 L Triglycerides 173 H HDL Cholesterol 73 H Lipase Arterial Blood Glucose Arterial Blood Ionized Calcium Acetaminophen Crossmatch 03/17/21 03/17/21 03/17/21 18:15 18:40 18:40 WBC RBC Hgb Hct MCV MCH MCHC RDW Plt Count Seg Neuts % (Manual) Lymphocytes % (Manual) Monocytes % (Manual) Nucleated RBC % Seg Neutrophils # Man Lymphocytes # (Manual) Monocytes # (Manual) INR APTT D-Dimer ABG pH POC ABG pCO2 POC ABG pO2 ABG pO2 94.4 H ABG HCO3 44.8 H ABG O2 Saturation ABG Base Excess 16.6 H ABG Hemoglobin ABG Oxyhemoglobin ABG Potassium ABG Chloride ABG Glucose Oxyhemoglobin Potassium Chloride Carbon Dioxide BUN Creatinine Glucose POC Glucose Lactic Acid 4.00 H* Calcium Phosphorus Magnesium AST ALT Alkaline Phosphatase Ammonia 116.0 H Troponin T Total Protein Albumin Triglycerides HDL Cholesterol Lipase Arterial Blood Glucose Arterial Blood Ionized Calcium Acetaminophen Crossmatch 03/17/21 03/18/21 03/18/21 23:36 00:25 23:07 WBC RBC Hgb Hct MCV MCH MCHC RDW Plt Count Seg Neuts % (Manual) Lymphocytes % (Manual) Monocytes % (Manual) Nucleated RBC % Seg Neutrophils # Man Lymphocytes # (Manual) Monocytes # (Manual) INR APTT D-Dimer ABG pH POC ABG pCO2 POC ABG pO2 ABG pO2 68.1 L ABG HCO3 40.2 H ABG O2 Saturation ABG Base Excess 14.4 H ABG Hemoglobin 6.5 L ABG Oxyhemoglobin ABG Potassium ABG Chloride ABG Glucose Oxyhemoglobin Potassium Chloride Carbon Dioxide BUN Creatinine Glucose POC Glucose Lactic Acid 4.00 H* Calcium Phosphorus Magnesium AST ALT Alkaline Phosphatase Ammonia Troponin T Total Protein Albumin Triglycerides HDL Cholesterol Lipase Arterial Blood Glucose Arterial Blood Ionized Calcium Acetaminophen 5.0 L Crossmatch 03/19/21 03/19/21 03/19/21 00:50 03:25 04:59 WBC RBC 3.43 L Hgb 7.0 L Hct 25.6 L MCV 75 L MCH 20 L MCHC 27 L RDW 25.6 H Plt Count Seg Neuts % (Manual) 91.0 H Lymphocytes % (Manual) Monocytes % (Manual) 9.0 H Nucleated RBC % 3.0 H Seg Neutrophils # Man 9.0 H Lymphocytes # (Manual) 0.0 L Monocytes # (Manual) INR APTT D-Dimer ABG pH 7.531 H POC ABG pCO2 POC ABG pO2 ABG pO2 49.6 L ABG HCO3 31.4 H ABG O2 Saturation 99.6 H ABG Base Excess 8.1 H ABG Hemoglobin 7.2 L ABG Oxyhemoglobin ABG Potassium ABG Chloride ABG Glucose Oxyhemoglobin Potassium Chloride Carbon Dioxide BUN Creatinine Glucose POC Glucose 127 H Lactic Acid Calcium Phosphorus Magnesium AST ALT Alkaline Phosphatase Ammonia Troponin T Total Protein Albumin Triglycerides HDL Cholesterol Lipase Arterial Blood Glucose Arterial Blood Ionized Calcium Acetaminophen Crossmatch 03/19/21 03/19/21 03/19/21 04:59 10:37 12:00 WBC RBC Hgb Hct MCV MCH MCHC RDW Plt Count Seg Neuts % (Manual) Lymphocytes % (Manual) Monocytes % (Manual) Nucleated RBC % Seg Neutrophils # Man Lymphocytes # (Manual) Monocytes # (Manual) INR APTT D-Dimer ABG pH 7.494 H POC ABG pCO2 POC ABG pO2 ABG pO2 107.3 H ABG HCO3 31.6 H ABG O2 Saturation ABG Base Excess 7.7 H ABG Hemoglobin 7.1 L ABG Oxyhemoglobin ABG Potassium ABG Chloride ABG Glucose Oxyhemoglobin Potassium Chloride 89.5 L Carbon Dioxide BUN Creatinine Glucose 121 H POC Glucose Lactic Acid Calcium Phosphorus Magnesium AST 359 H ALT 1434 H Alkaline Phosphatase Ammonia Troponin T Total Protein 5.7 L Albumin 3.5 L Triglycerides HDL Cholesterol Lipase Arterial Blood Glucose Arterial Blood Ionized Calcium Acetaminophen Crossmatch 03/19/21 03/19/21 03/19/21 12:05 17:52 23:23 WBC RBC Hgb Hct MCV MCH MCHC RDW Plt Count Seg Neuts % (Manual) Lymphocytes % (Manual) Monocytes % (Manual) Nucleated RBC % Seg Neutrophils # Man Lymphocytes # (Manual) Monocytes # (Manual) INR APTT D-Dimer ABG pH POC ABG pCO2 POC ABG pO2 ABG pO2 ABG HCO3 ABG O2 Saturation ABG Base Excess ABG Hemoglobin ABG Oxyhemoglobin ABG Potassium ABG Chloride ABG Glucose Oxyhemoglobin Potassium Chloride Carbon Dioxide BUN Creatinine Glucose POC Glucose 122 H 114 H 187 H Lactic Acid Calcium Phosphorus Magnesium AST ALT Alkaline Phosphatase Ammonia Troponin T Total Protein Albumin Triglycerides HDL Cholesterol Lipase Arterial Blood Glucose Arterial Blood Ionized Calcium Acetaminophen Crossmatch 03/19/21 03/20/21 03/20/21 Unknown 03:50 03:57 WBC RBC Hgb Hct MCV MCH MCHC RDW Plt Count Seg Neuts % (Manual) Lymphocytes % (Manual) Monocytes % (Manual) Nucleated RBC % Seg Neutrophils # Man Lymphocytes # (Manual) Monocytes # (Manual) INR APTT D-Dimer ABG pH 7.477 H POC ABG pCO2 POC ABG pO2 ABG pO2 67.9 L ABG HCO3 33.9 H ABG O2 Saturation ABG Base Excess 9.5 H ABG Hemoglobin 6.7 L ABG Oxyhemoglobin ABG Potassium ABG Chloride ABG Glucose Oxyhemoglobin Potassium Chloride Carbon Dioxide BUN Creatinine Glucose POC Glucose 247 H Lactic Acid Calcium Phosphorus Magnesium AST ALT Alkaline Phosphatase Ammonia Troponin T Total Protein Albumin Triglycerides HDL Cholesterol Lipase 12 L Arterial Blood Glucose Arterial Blood Ionized Calcium Acetaminophen Crossmatch 03/20/21 03/20/21 03/20/21 04:18 04:18 10:16 WBC RBC 3.48 L Hgb 7.0 L Hct 25.3 L MCV 73 L MCH 20 L MCHC 28 L RDW 25.2 H Plt Count 541 H Seg Neuts % (Manual) Lymphocytes % (Manual) Monocytes % (Manual) Nucleated RBC % Seg Neutrophils # Man Lymphocytes # (Manual) Monocytes # (Manual) INR APTT D-Dimer ABG pH POC ABG pCO2 POC ABG pO2 ABG pO2 63.3 L ABG HCO3 34.0 H ABG O2 Saturation 90.0 L ABG Base Excess 7.9 H ABG Hemoglobin 10.5 L ABG Oxyhemoglobin ABG Potassium ABG Chloride ABG Glucose Oxyhemoglobin 88.1 L Potassium Chloride 91.6 L Carbon Dioxide BUN 22 H Creatinine Glucose 245 H POC Glucose Lactic Acid Calcium Phosphorus Magnesium AST 148 H ALT 1096 H Alkaline Phosphatase 133 H Ammonia Troponin T Total Protein Albumin 3.5 L Triglycerides HDL Cholesterol Lipase Arterial Blood Glucose Arterial Blood Ionized Calcium Acetaminophen Crossmatch 03/20/21 03/20/21 03/21/21 12:05 17:26 00:18 WBC RBC Hgb Hct MCV MCH MCHC RDW Plt Count Seg Neuts % (Manual) Lymphocytes % (Manual) Monocytes % (Manual) Nucleated RBC % Seg Neutrophils # Man Lymphocytes # (Manual) Monocytes # (Manual) INR APTT D-Dimer ABG pH POC ABG pCO2 POC ABG pO2 ABG pO2 ABG HCO3 ABG O2 Saturation ABG Base Excess ABG Hemoglobin ABG Oxyhemoglobin ABG Potassium ABG Chloride ABG Glucose Oxyhemoglobin Potassium Chloride Carbon Dioxide BUN Creatinine Glucose POC Glucose 226 H 215 H 323 H Lactic Acid Calcium Phosphorus Magnesium AST ALT Alkaline Phosphatase Ammonia Troponin T Total Protein Albumin Triglycerides HDL Cholesterol Lipase Arterial Blood Glucose Arterial Blood Ionized Calcium Acetaminophen Crossmatch 03/21/21 03/21/21 03/21/21 04:00 05:05 09:28 WBC 12.0 H RBC 3.42 L Hgb 6.8 L Hct 25.3 L MCV 74 L MCH 20 L MCHC 27 L RDW 25.1 H Plt Count 650 H Seg Neuts % (Manual) Lymphocytes % (Manual) Monocytes % (Manual) Nucleated RBC % Seg Neutrophils # Man Lymphocytes # (Manual) Monocytes # (Manual) INR APTT D-Dimer ABG pH 7.348 L POC ABG pCO2 POC ABG pO2 ABG pO2 56.3 L ABG HCO3 36.9 H ABG O2 Saturation 83.4 L ABG Base Excess 10.0 H ABG Hemoglobin 7.0 L ABG Oxyhemoglobin ABG Potassium ABG Chloride ABG Glucose Oxyhemoglobin 81.7 L Potassium Chloride Carbon Dioxide BUN Creatinine Glucose POC Glucose 311 H Lactic Acid Calcium Phosphorus Magnesium AST ALT Alkaline Phosphatase Ammonia Troponin T Total Protein Albumin Triglycerides HDL Cholesterol Lipase Arterial Blood Glucose Arterial Blood Ionized Calcium Acetaminophen Crossmatch 03/21/21 03/21/21 03/21/21 09:28 12:31 14:08 WBC RBC Hgb Hct MCV MCH MCHC RDW Plt Count Seg Neuts % (Manual) Lymphocytes % (Manual) Monocytes % (Manual) Nucleated RBC % Seg Neutrophils # Man Lymphocytes # (Manual) Monocytes # (Manual) INR APTT D-Dimer ABG pH POC ABG pCO2 POC ABG pO2 ABG pO2 ABG HCO3 ABG O2 Saturation ABG Base Excess ABG Hemoglobin ABG Oxyhemoglobin ABG Potassium ABG Chloride ABG Glucose Oxyhemoglobin Potassium 5.1 H D Chloride 94.4 L Carbon Dioxide 33 H BUN 32 H Creatinine Glucose 319 H POC Glucose 295 H Lactic Acid Calcium Phosphorus Magnesium 2.40 H AST ALT 697 H Alkaline Phosphatase 134 H Ammonia Troponin T Total Protein 5.8 L Albumin 3.4 L Triglycerides HDL Cholesterol Lipase Arterial Blood Glucose Arterial Blood Ionized Calcium Acetaminophen Crossmatch See Detail 03/22/21 03/22/21 03/22/21 00:14 04:30 04:39 WBC RBC Hgb Hct MCV MCH MCHC RDW Plt Count Seg Neuts % (Manual) Lymphocytes % (Manual) Monocytes % (Manual) Nucleated RBC % Seg Neutrophils # Man Lymphocytes # (Manual) Monocytes # (Manual) INR APTT D-Dimer ABG pH 7.310 L POC ABG pCO2 POC ABG pO2 ABG pO2 65.4 L ABG HCO3 38.3 H ABG O2 Saturation 90.8 L ABG Base Excess 10.9 H ABG Hemoglobin 6.4 L ABG Oxyhemoglobin ABG Potassium ABG Chloride ABG Glucose Oxyhemoglobin 88.7 L Potassium Chloride Carbon Dioxide BUN Creatinine Glucose POC Glucose 326 H Lactic Acid Calcium Phosphorus Magnesium AST ALT Alkaline Phosphatase Ammonia Troponin T Total Protein Albumin Triglycerides 189 H HDL Cholesterol Lipase Arterial Blood Glucose Arterial Blood Ionized Calcium Acetaminophen Crossmatch 03/22/21 03/22/21 03/22/21 04:39 04:39 09:45 WBC 12.8 H RBC 3.34 L Hgb 6.6 L Hct 24.5 L MCV 73 L MCH 20 L MCHC 27 L RDW 25.5 H Plt Count 644 H Seg Neuts % (Manual) Lymphocytes % (Manual) Monocytes % (Manual) Nucleated RBC % Seg Neutrophils # Man Lymphocytes # (Manual) Monocytes # (Manual) INR APTT D-Dimer ABG pH POC ABG pCO2 65.7 H POC ABG pO2 59.7 L ABG pO2 ABG HCO3 ABG O2 Saturation ABG Base Excess ABG Hemoglobin 8.0 L ABG Oxyhemoglobin 86.3 L ABG Potassium 4.7 H ABG Chloride 94.0 L ABG Glucose 208 H Oxyhemoglobin Potassium 5.3 H Chloride 94.6 L Carbon Dioxide 34 H BUN 33 H Creatinine Glucose 291 H POC Glucose Lactic Acid Calcium Phosphorus Magnesium AST ALT Alkaline Phosphatase Ammonia Troponin T Total Protein Albumin Triglycerides HDL Cholesterol Lipase Arterial Blood Glucose 208 H Arterial Blood Ionized Calcium Acetaminophen Crossmatch 03/22/21 03/22/21 03/23/21 21:33 23:58 04:42 WBC 14.3 H RBC 3.63 L Hgb 7.6 L Hct 27.0 L MCV 74 L MCH 21 L MCHC 28 L RDW 23.1 H Plt Count 567 H Seg Neuts % (Manual) Lymphocytes % (Manual) Monocytes % (Manual) Nucleated RBC % Seg Neutrophils # Man Lymphocytes # (Manual) Monocytes # (Manual) INR APTT D-Dimer ABG pH POC ABG pCO2 POC ABG pO2 ABG pO2 ABG HCO3 ABG O2 Saturation ABG Base Excess ABG Hemoglobin ABG Oxyhemoglobin ABG Potassium ABG Chloride ABG Glucose Oxyhemoglobin Potassium Chloride Carbon Dioxide BUN Creatinine Glucose POC Glucose 170 H 156 H Lactic Acid Calcium Phosphorus Magnesium AST ALT Alkaline Phosphatase Ammonia Troponin T Total Protein Albumin Triglycerides HDL Cholesterol Lipase Arterial Blood Glucose Arterial Blood Ionized Calcium Acetaminophen Crossmatch 03/23/21 03/23/21 03/23/21 04:42 04:50 22:25 WBC RBC Hgb Hct MCV MCH MCHC RDW Plt Count Seg Neuts % (Manual) Lymphocytes % (Manual) Monocytes % (Manual) Nucleated RBC % Seg Neutrophils # Man Lymphocytes # (Manual) Monocytes # (Manual) INR APTT D-Dimer ABG pH POC ABG pCO2 POC ABG pO2 ABG pO2 70.7 L ABG HCO3 41.7 H ABG O2 Saturation ABG Base Excess 15.2 H ABG Hemoglobin 5.6 L ABG Oxyhemoglobin ABG Potassium ABG Chloride ABG Glucose Oxyhemoglobin Potassium Chloride 94.6 L Carbon Dioxide 37 H BUN 27 H Creatinine Glucose 311 H POC Glucose 295 H Lactic Acid Calcium Phosphorus Magnesium AST ALT Alkaline Phosphatase Ammonia Troponin T Total Protein Albumin Triglycerides HDL Cholesterol Lipase Arterial Blood Glucose Arterial Blood Ionized Calcium Acetaminophen Crossmatch 03/23/21 03/24/21 03/24/21 23:13 05:13 07:59 WBC RBC Hgb Hct MCV MCH MCHC RDW Plt Count Seg Neuts % (Manual) Lymphocytes % (Manual) Monocytes % (Manual) Nucleated RBC % Seg Neutrophils # Man Lymphocytes # (Manual) Monocytes # (Manual) INR APTT D-Dimer ABG pH POC ABG pCO2 POC ABG pO2 ABG pO2 ABG HCO3 ABG O2 Saturation ABG Base Excess ABG Hemoglobin ABG Oxyhemoglobin ABG Potassium ABG Chloride ABG Glucose Oxyhemoglobin Potassium Chloride Carbon Dioxide BUN Creatinine Glucose POC Glucose 336 H 303 H 333 H Lactic Acid Calcium Phosphorus Magnesium AST ALT Alkaline Phosphatase Ammonia Troponin T Total Protein Albumin Triglycerides HDL Cholesterol Lipase Arterial Blood Glucose Arterial Blood Ionized Calcium Acetaminophen Crossmatch 03/24/21 03/24/21 03/24/21 08:03 08:03 08:57 WBC 12.7 H RBC 3.48 L Hgb 7.3 L Hct 26.3 L MCV 76 L MCH 21 L MCHC 28 L RDW 24.1 H Plt Count 499 H Seg Neuts % (Manual) Lymphocytes % (Manual) 1.0 L Monocytes % (Manual) 16.0 H Nucleated RBC % 11.0 H Seg Neutrophils # Man 8.1 H Lymphocytes # (Manual) 0.1 L Monocytes # (Manual) 2.1 H INR APTT D-Dimer ABG pH 7.477 H POC ABG pCO2 56.9 H POC ABG pO2 ABG pO2 ABG HCO3 ABG O2 Saturation ABG Base Excess ABG Hemoglobin 8.0 L ABG Oxyhemoglobin ABG Potassium ABG Chloride 93.0 L ABG Glucose 328 H Oxyhemoglobin Potassium Chloride 94.4 L Carbon Dioxide 38 H BUN 26 H Creatinine 0.5 L Glucose 348 H POC Glucose Lactic Acid Calcium Phosphorus Magnesium AST ALT Alkaline Phosphatase Ammonia Troponin T Total Protein Albumin Triglycerides HDL Cholesterol Lipase Arterial Blood Glucose 328 H Arterial Blood Ionized Calcium 4.5 L Acetaminophen Crossmatch 03/24/21 03/24/21 03/25/21 12:14 17:45 04:00 WBC 15.8 H RBC Hgb 7.5 L Hct 27.4 L MCV 75 L MCH 21 L MCHC 28 L RDW 24.0 H Plt Count 576 H Seg Neuts % (Manual) Lymphocytes % (Manual) Monocytes % (Manual) Nucleated RBC % Seg Neutrophils # Man Lymphocytes # (Manual) Monocytes # (Manual) INR APTT D-Dimer ABG pH POC ABG pCO2 POC ABG pO2 ABG pO2 ABG HCO3 ABG O2 Saturation ABG Base Excess ABG Hemoglobin ABG Oxyhemoglobin ABG Potassium ABG Chloride ABG Glucose Oxyhemoglobin Potassium Chloride Carbon Dioxide BUN Creatinine Glucose POC Glucose 315 H 324 H Lactic Acid Calcium Phosphorus Magnesium AST ALT Alkaline Phosphatase Ammonia Troponin T Total Protein Albumin Triglycerides HDL Cholesterol Lipase Arterial Blood Glucose Arterial Blood Ionized Calcium Acetaminophen Crossmatch 03/25/21 03/25/21 03/25/21 07:52 16:37 17:38 WBC RBC Hgb Hct MCV MCH MCHC RDW Plt Count Seg Neuts % (Manual) Lymphocytes % (Manual) Monocytes % (Manual) Nucleated RBC % Seg Neutrophils # Man Lymphocytes # (Manual) Monocytes # (Manual) INR APTT D-Dimer ABG pH POC ABG pCO2 POC ABG pO2 ABG pO2 ABG HCO3 ABG O2 Saturation ABG Base Excess ABG Hemoglobin ABG Oxyhemoglobin ABG Potassium ABG Chloride ABG Glucose Oxyhemoglobin Potassium Chloride 95.9 L Carbon Dioxide 33 H BUN 24 H Creatinine 0.4 L Glucose 289 H POC Glucose 321 H 295 H Lactic Acid Calcium Phosphorus Magnesium AST ALT Alkaline Phosphatase Ammonia Troponin T Total Protein Albumin Triglycerides HDL Cholesterol Lipase Arterial Blood Glucose Arterial Blood Ionized Calcium Acetaminophen Crossmatch 03/25/21 03/26/21 03/26/21 23:27 05:07 05:35 WBC 20.0 H RBC 3.37 L Hgb 7.0 L Hct 25.2 L MCV 75 L MCH 21 L MCHC 28 L RDW 24.0 H Plt Count 544 H Seg Neuts % (Manual) 72.0 H Lymphocytes % (Manual) 6.0 L Monocytes % (Manual) 8.0 H Nucleated RBC % Seg Neutrophils # Man 14.4 H Lymphocytes # (Manual) Monocytes # (Manual) 1.6 H INR APTT D-Dimer ABG pH POC ABG pCO2 POC ABG pO2 ABG pO2 ABG HCO3 ABG O2 Saturation ABG Base Excess ABG Hemoglobin ABG Oxyhemoglobin ABG Potassium ABG Chloride ABG Glucose Oxyhemoglobin Potassium Chloride Carbon Dioxide BUN Creatinine Glucose POC Glucose 231 H 200 H Lactic Acid Calcium Phosphorus Magnesium AST ALT Alkaline Phosphatase Ammonia Troponin T Total Protein Albumin Triglycerides HDL Cholesterol Lipase Arterial Blood Glucose Arterial Blood Ionized Calcium Acetaminophen Crossmatch 03/26/21 03/26/21 03/26/21 05:35 10:33 12:12 WBC RBC Hgb Hct MCV MCH MCHC RDW Plt Count Seg Neuts % (Manual) Lymphocytes % (Manual) Monocytes % (Manual) Nucleated RBC % Seg Neutrophils # Man Lymphocytes # (Manual) Monocytes # (Manual) INR APTT D-Dimer ABG pH POC ABG pCO2 POC ABG pO2 ABG pO2 ABG HCO3 ABG O2 Saturation ABG Base Excess ABG Hemoglobin ABG Oxyhemoglobin ABG Potassium ABG Chloride ABG Glucose Oxyhemoglobin Potassium 5.9 H D Chloride 91.9 L Carbon Dioxide 33 H BUN 20 H Creatinine 0.4 L Glucose 197 H POC Glucose 132 H 176 H Lactic Acid Calcium Phosphorus Magnesium AST ALT 169 H Alkaline Phosphatase 138 H Ammonia Troponin T Total Protein 5.5 L Albumin 3.2 L Triglycerides HDL Cholesterol Lipase Arterial Blood Glucose Arterial Blood Ionized Calcium Acetaminophen Crossmatch 03/26/21 03/26/21 03/26/21 16:50 18:06 22:19 WBC RBC Hgb Hct MCV MCH MCHC RDW Plt Count Seg Neuts % (Manual) Lymphocytes % (Manual) Monocytes % (Manual) Nucleated RBC % Seg Neutrophils # Man Lymphocytes # (Manual) Monocytes # (Manual) INR APTT D-Dimer ABG pH POC ABG pCO2 POC ABG pO2 ABG pO2 ABG HCO3 ABG O2 Saturation ABG Base Excess ABG Hemoglobin ABG Oxyhemoglobin ABG Potassium ABG Chloride ABG Glucose Oxyhemoglobin Potassium 5.2 H Chloride 91.7 L Carbon Dioxide 38 H BUN 19 H Creatinine 0.4 L Glucose 260 H POC Glucose 248 H 168 H Lactic Acid Calcium Phosphorus Magnesium AST ALT Alkaline Phosphatase Ammonia Troponin T Total Protein Albumin Triglycerides HDL Cholesterol Lipase Arterial Blood Glucose Arterial Blood Ionized Calcium Acetaminophen Crossmatch 03/27/21 03/27/21 03/27/21 01:02 01:32 04:15 WBC 21.4 H RBC 3.45 L Hgb 6.9 L Hct 26.2 L MCV 76 L MCH 20 L MCHC 27 L RDW 24.5 H Plt Count 500 H Seg Neuts % (Manual) Lymphocytes % (Manual) Monocytes % (Manual) Nucleated RBC % Seg Neutrophils # Man Lymphocytes # (Manual) Monocytes # (Manual) INR APTT D-Dimer ABG pH POC ABG pCO2 POC ABG pO2 ABG pO2 ABG HCO3 ABG O2 Saturation ABG Base Excess ABG Hemoglobin ABG Oxyhemoglobin ABG Potassium ABG Chloride ABG Glucose Oxyhemoglobin Potassium Chloride Carbon Dioxide BUN Creatinine Glucose POC Glucose 219 H 221 H Lactic Acid Calcium Phosphorus Magnesium AST ALT Alkaline Phosphatase Ammonia Troponin T Total Protein Albumin Triglycerides HDL Cholesterol Lipase Arterial Blood Glucose Arterial Blood Ionized Calcium Acetaminophen Crossmatch 03/27/21 03/27/21 03/27/21 04:15 06:37 11:21 WBC RBC Hgb Hct MCV MCH MCHC RDW Plt Count Seg Neuts % (Manual) Lymphocytes % (Manual) Monocytes % (Manual) Nucleated RBC % Seg Neutrophils # Man Lymphocytes # (Manual) Monocytes # (Manual) INR APTT D-Dimer ABG pH POC ABG pCO2 POC ABG pO2 ABG pO2 ABG HCO3 ABG O2 Saturation ABG Base Excess ABG Hemoglobin ABG Oxyhemoglobin ABG Potassium ABG Chloride ABG Glucose Oxyhemoglobin Potassium 5.3 H Chloride 94.4 L Carbon Dioxide 35 H BUN 20 H Creatinine 0.4 L Glucose 310 H POC Glucose 312 H 273 H Lactic Acid Calcium 8.3 L Phosphorus 4.60 H D Magnesium AST ALT Alkaline Phosphatase Ammonia Troponin T Total Protein Albumin Triglycerides HDL Cholesterol Lipase Arterial Blood Glucose Arterial Blood Ionized Calcium Acetaminophen Crossmatch 03/27/21 03/27/21 03/28/21 16:14 21:21 00:16 WBC RBC Hgb Hct MCV MCH MCHC RDW Plt Count Seg Neuts % (Manual) Lymphocytes % (Manual) Monocytes % (Manual) Nucleated RBC % Seg Neutrophils # Man Lymphocytes # (Manual) Monocytes # (Manual) INR APTT D-Dimer ABG pH POC ABG pCO2 POC ABG pO2 ABG pO2 ABG HCO3 ABG O2 Saturation ABG Base Excess ABG Hemoglobin ABG Oxyhemoglobin ABG Potassium ABG Chloride ABG Glucose Oxyhemoglobin Potassium Chloride Carbon Dioxide BUN Creatinine Glucose POC Glucose 241 H 179 H 160 H Lactic Acid Calcium Phosphorus Magnesium AST ALT Alkaline Phosphatase Ammonia Troponin T Total Protein Albumin Triglycerides HDL Cholesterol Lipase Arterial Blood Glucose Arterial Blood Ionized Calcium Acetaminophen Crossmatch 03/28/21 03/28/21 03/28/21 04:00 04:00 05:41 WBC 27.1 H RBC 3.46 L Hgb 7.1 L Hct 26.1 L MCV 76 L MCH 20 L MCHC 27 L RDW 24.0 H Plt Count 541 H Seg Neuts % (Manual) Lymphocytes % (Manual) Monocytes % (Manual) Nucleated RBC % Seg Neutrophils # Man Lymphocytes # (Manual) Monocytes # (Manual) INR APTT D-Dimer ABG pH POC ABG pCO2 POC ABG pO2 ABG pO2 ABG HCO3 ABG O2 Saturation ABG Base Excess ABG Hemoglobin ABG Oxyhemoglobin ABG Potassium ABG Chloride ABG Glucose Oxyhemoglobin Potassium Chloride 95.7 L Carbon Dioxide 36 H BUN 23 H Creatinine 0.4 L Glucose 295 H POC Glucose 279 H Lactic Acid Calcium Phosphorus Magnesium AST ALT Alkaline Phosphatase Ammonia Troponin T Total Protein Albumin Triglycerides HDL Cholesterol Lipase Arterial Blood Glucose Arterial Blood Ionized Calcium Acetaminophen Crossmatch 03/28/21 03/28/21 03/28/21 11:50 16:45 23:15 WBC RBC Hgb Hct MCV MCH MCHC RDW Plt Count Seg Neuts % (Manual) Lymphocytes % (Manual) Monocytes % (Manual) Nucleated RBC % Seg Neutrophils # Man Lymphocytes # (Manual) Monocytes # (Manual) INR APTT D-Dimer ABG pH POC ABG pCO2 POC ABG pO2 ABG pO2 ABG HCO3 ABG O2 Saturation ABG Base Excess ABG Hemoglobin ABG Oxyhemoglobin ABG Potassium ABG Chloride ABG Glucose Oxyhemoglobin Potassium Chloride Carbon Dioxide BUN Creatinine Glucose POC Glucose 233 H 240 H 189 H Lactic Acid Calcium Phosphorus Magnesium AST ALT Alkaline Phosphatase Ammonia Troponin T Total Protein Albumin Triglycerides HDL Cholesterol Lipase Arterial Blood Glucose Arterial Blood Ionized Calcium Acetaminophen Crossmatch 03/29/21 03/29/21 03/29/21 04:35 04:35 05:05 WBC 29.6 H RBC 3.18 L Hgb 6.7 L Hct 24.2 L MCV 76 L MCH 21 L MCHC 28 L RDW 24.0 H Plt Count 678 H Seg Neuts % (Manual) Lymphocytes % (Manual) Monocytes % (Manual) Nucleated RBC % Seg Neutrophils # Man Lymphocytes # (Manual) Monocytes # (Manual) INR APTT D-Dimer ABG pH POC ABG pCO2 POC ABG pO2 ABG pO2 ABG HCO3 ABG O2 Saturation ABG Base Excess ABG Hemoglobin ABG Oxyhemoglobin ABG Potassium ABG Chloride ABG Glucose Oxyhemoglobin Potassium Chloride 95.4 L Carbon Dioxide 37 H BUN 22 H Creatinine 0.4 L Glucose 194 H POC Glucose 195 H Lactic Acid Calcium Phosphorus Magnesium AST ALT Alkaline Phosphatase Ammonia Troponin T Total Protein Albumin Triglycerides HDL Cholesterol Lipase Arterial Blood Glucose Arterial Blood Ionized Calcium Acetaminophen Crossmatch 03/29/21 03/29/21 03/29/21 09:24 10:58 17:14 WBC RBC Hgb Hct MCV MCH MCHC RDW Plt Count Seg Neuts % (Manual) Lymphocytes % (Manual) Monocytes % (Manual) Nucleated RBC % Seg Neutrophils # Man Lymphocytes # (Manual) Monocytes # (Manual) INR APTT D-Dimer ABG pH POC ABG pCO2 POC ABG pO2 ABG pO2 ABG HCO3 ABG O2 Saturation ABG Base Excess ABG Hemoglobin ABG Oxyhemoglobin ABG Potassium ABG Chloride ABG Glucose Oxyhemoglobin Potassium Chloride Carbon Dioxide BUN Creatinine Glucose POC Glucose 106 H 117 H Lactic Acid Calcium Phosphorus Magnesium AST ALT Alkaline Phosphatase Ammonia Troponin T Total Protein Albumin Triglycerides HDL Cholesterol Lipase Arterial Blood Glucose Arterial Blood Ionized Calcium Acetaminophen Crossmatch See Detail 03/29/21 03/29/21 03/30/21 19:32 23:36 01:49 WBC 25.1 H RBC Hgb 9.3 L Hct MCV 77 L MCH 23 L MCHC RDW 22.7 H Plt Count 599 H Seg Neuts % (Manual) Lymphocytes % (Manual) Monocytes % (Manual) Nucleated RBC % Seg Neutrophils # Man Lymphocytes # (Manual) Monocytes # (Manual) INR APTT D-Dimer ABG pH POC ABG pCO2 POC ABG pO2 ABG pO2 ABG HCO3 ABG O2 Saturation ABG Base Excess ABG Hemoglobin ABG Oxyhemoglobin ABG Potassium ABG Chloride ABG Glucose Oxyhemoglobin Potassium Chloride Carbon Dioxide BUN Creatinine Glucose POC Glucose 57 L 55 L Lactic Acid Calcium Phosphorus Magnesium AST ALT Alkaline Phosphatase Ammonia Troponin T Total Protein Albumin Triglycerides HDL Cholesterol Lipase Arterial Blood Glucose Arterial Blood Ionized Calcium Acetaminophen Crossmatch 03/30/21 03/30/21 03/30/21 04:00 15:52 18:07 WBC RBC Hgb Hct MCV MCH MCHC RDW Plt Count Seg Neuts % (Manual) Lymphocytes % (Manual) Monocytes % (Manual) Nucleated RBC % Seg Neutrophils # Man Lymphocytes # (Manual) Monocytes # (Manual) INR APTT D-Dimer ABG pH POC ABG pCO2 POC ABG pO2 ABG pO2 ABG HCO3 ABG O2 Saturation ABG Base Excess ABG Hemoglobin ABG Oxyhemoglobin ABG Potassium ABG Chloride ABG Glucose Oxyhemoglobin Potassium Chloride 93.4 L Carbon Dioxide 34 H BUN 18 H Creatinine 0.3 L Glucose 114 H POC Glucose 112 H 130 H Lactic Acid Calcium Phosphorus 4.70 H Magnesium AST ALT Alkaline Phosphatase Ammonia Troponin T Total Protein Albumin Triglycerides HDL Cholesterol Lipase Arterial Blood Glucose Arterial Blood Ionized Calcium Acetaminophen Crossmatch 03/30/21 03/31/21 03/31/21 23:26 04:41 04:41 WBC 30.8 H RBC Hgb 9.3 L Hct MCV MCH 23 L MCHC 28 L RDW 22.3 H Plt Count 642 H Seg Neuts % (Manual) Lymphocytes % (Manual) Monocytes % (Manual) Nucleated RBC % Seg Neutrophils # Man Lymphocytes # (Manual) Monocytes # (Manual) INR APTT D-Dimer ABG pH POC ABG pCO2 POC ABG pO2 ABG pO2 ABG HCO3 ABG O2 Saturation ABG Base Excess ABG Hemoglobin ABG Oxyhemoglobin ABG Potassium ABG Chloride ABG Glucose Oxyhemoglobin Potassium Chloride 96.3 L Carbon Dioxide 34 H BUN Creatinine 0.3 L Glucose POC Glucose 124 H Lactic Acid Calcium Phosphorus Magnesium AST ALT Alkaline Phosphatase Ammonia Troponin T Total Protein Albumin Triglycerides HDL Cholesterol Lipase Arterial Blood Glucose Arterial Blood Ionized Calcium Acetaminophen Crossmatch
[2021-03-31] MEDS: methylPREDNISolone Sod Succinate 40 MG/1 ML INJ IV SCH (10:00)
--- NOTE | 2021-03-31 10:49 | Progress Note ---
Assessment and Plan (1) Respiratory failure (2) Tachycardia Current Visit: Yes Status: Acute Plan to address problem: -- Patient with long history of severe, oxygen dependent COPD, presented with respiratory failure due to COPD exacerbation. -- Sinus tachycardia on presentation is now resolved. Patient tolerates well with metoprolol tritrate 25 mg bid. -- Continue supportive management and current treatment of COPD exacerbation. Thanks for consult. We will sign off. Please feel free to call us back with question or concerns. Subjective Date of service: 03/31/21 Principal diagnosis: Tachycardia, respiratory failure Interval history: No active cardiac events. Objective Vital Signs Temp Pulse Pulse Pulse Resp Resp BP 03/31/21 10:00 03/31/21 09:08 97.6 F 03/31/21 09:00 105 H 22 109/59 03/31/21 08:30 124 H 26 H 116/80 03/31/21 08:00 102 H 28 H 131/83 03/31/21 07:55 99 H 25 H 03/31/21 07:53 89 22 03/31/21 07:30 72 16 131/83 03/31/21 07:00 81 17 131/83 03/31/21 06:30 73 16 131/83 03/31/21 06:00 80 17 135/106 03/31/21 05:30 96 H 21 158/85 03/31/21 05:01 106 H 22 159/94 03/31/21 04:31 65 12 111/59 03/31/21 04:00 98.0 F 104 H 69 26 H 169/89 03/31/21 03:30 65 17 95/62 03/31/21 03:00 66 15 95/58 03/31/21 02:31 75 18 103/76 03/31/21 02:00 67 16 102/64 03/31/21 01:30 67 16 88/58 03/31/21 01:01 72 16 127/67 03/31/21 00:30 75 15 110/65 03/31/21 00:20 74 16 118/61 03/31/21 00:01 83 14 118/93 03/31/21 00:00 97.6 F 75 75 15 03/30/21 23:30 77 11 L 108/66 03/30/21 23:03 69 16 96/60 03/30/21 23:01 70 16 96/60 03/30/21 22:30 70 18 89/52 03/30/21 22:01 77 16 149/80 03/30/21 21:48 92 H 149/80 03/30/21 21:31 98 H 26 H 135/87 03/30/21 21:06 210 H 140/100 03/30/21 21:01 169 H 31 H 03/30/21 20:36 79 22 03/30/21 20:31 76 16 85/53 03/30/21 20:30 80 16 85/53 03/30/21 20:00 97.8 F 78 78 16 83/55 03/30/21 19:31 91 H 17 81/54 03/30/21 19:01 117 H 25 H 115/66 03/30/21 18:01 122 H 18 131/84 03/30/21 17:30 120 H 20 130/90 03/30/21 17:01 117 H 20 127/94 03/30/21 16:37 98.3 F 03/30/21 16:31 123 H 17 163/46 03/30/21 16:01 151 H 32 H 173/118 03/30/21 16:00 151 H 81 16 03/30/21 15:31 154 H 31 H 143/95 03/30/21 15:20 03/30/21 15:01 130 H 22 150/82 03/30/21 14:31 110 H 23 139/82 03/30/21 14:00 100 H 22 123/83 03/30/21 13:30 84 19 85/40 03/30/21 13:00 92 H 18 86/45 03/30/21 12:31 115 H 19 159/84 03/30/21 12:01 105 H 20 129/66 03/30/21 12:00 105 H 81 16 03/30/21 11:59 03/30/21 11:47 98.2 F 03/30/21 11:31 91 H 12 129/66 03/30/21 11:26 80 14 119/63 03/30/21 11:01 99 H 15 120/48 Pulse Ox 03/31/21 10:00 100 03/31/21 09:08 03/31/21 09:00 100 03/31/21 08:30 100 03/31/21 08:00 100 03/31/21 07:55 100 03/31/21 07:53 03/31/21 07:30 100 03/31/21 07:00 100 03/31/21 06:30 100 03/31/21 06:00 100 03/31/21 05:30 100 03/31/21 05:01 100 03/31/21 04:31 100 03/31/21 04:00 100 03/31/21 03:30 100 03/31/21 03:00 100 03/31/21 02:31 100 03/31/21 02:00 100 03/31/21 01:30 100 03/31/21 01:01 100 03/31/21 00:30 100 03/31/21 00:20 100 03/31/21 00:01 100 03/31/21 00:00 100 03/30/21 23:30 100 03/30/21 23:03 100 03/30/21 23:01 100 03/30/21 22:30 99 03/30/21 22:01 83 L 03/30/21 21:48 03/30/21 21:31 100 03/30/21 21:06 03/30/21 21:01 99 03/30/21 20:36 03/30/21 20:31 100 03/30/21 20:30 100 03/30/21 20:00 100 03/30/21 19:31 100 03/30/21 19:01 82 L 03/30/21 18:01 99 03/30/21 17:30 100 03/30/21 17:01 99 03/30/21 16:37 03/30/21 16:31 99 03/30/21 16:01 97 03/30/21 16:00 100 03/30/21 15:31 97 03/30/21 15:20 99 03/30/21 15:01 98 03/30/21 14:31 97 03/30/21 14:00 03/30/21 13:30 96 03/30/21 13:00 94 03/30/21 12:31 100 03/30/21 12:01 99 03/30/21 12:00 100 03/30/21 11:59 99 03/30/21 11:47 03/30/21 11:31 100 01/07/22 11:26 99 03/30/21 11:01 94 - Physical Examination General: Other (On BiPAP) HEENT: Positive: PERRL Neck: Positive: neck supple Neuro: Positive: Grossly Intact Abdomen: Positive: Soft Skin: Positive: Clear Extremities: Absent: edema - Labs and Meds CBC 03/31/21 Range/Units 04:41 WBC 30.8 H (4.5-11.0) K/mm3 RBC 4.13 (3.65-5.03) M/mm3 Hgb 9.3 L (10.1-14.3) gm/dl Hct 33.0 (30.3-42.9) % Plt Count 642 H (140-440) K/mm3 Comprehensive Metabolic Panel 03/31/21 Range/Units 04:41 Sodium 141 (137-145) mmol/L Potassium 4.8 D (3.6-5.0) mmol/L Chloride 96.3 L (98-107) mmol/L Carbon Dioxide 34 H (22-30) mmol/L BUN 15 (7-17) mg/dL Creatinine 0.3 L (0.6-1.2) mg/dL Glucose 85 (65-100) mg/dL Calcium 8.9 (8.4-10.2) mg/dL
[2021-03-31] MEDS: busPIRone 5 MG TAB PO SCH ×2 (10:54→22:53)
[2021-03-31] MEDS: DOCUSATE SODIUM 100 MG/10 ML ORAL LIQD PO SCH ×2 (10:54→22:53)
[2021-03-31] MEDS: METOPROLOL TARTRATE 25 MG TAB PO SCH ×2 (10:55→22:53)
[2021-03-31] MEDS: FAMOTIDINE 20 MG TAB FEEDTUBE SCH ×2 (10:55→22:53)
[2021-03-31] MEDS: SENNOSIDES/DOCUSATE SODIUM 8.6/50 MG TAB FEEDTUBE SCH ×2 (10:55→22:53)
--- NOTE | 2021-03-31 11:05 | Progress Note ---
Assessment and Plan Assessment and plan: This is a 50-year-old female with COPD with oxygen dependence, DM, severe anxiety, GERD, HLD, HTN and PAGE admitted with SVT and hypertensive urgency. Hospital Course to Date: This is a 60-year-old female with COPD with oxygen dependence currently with palliative care, DM, former nicotine abuse, severe anxiety, GERD, HLD, HTN and PAGE presented to emergency department on 03/17 via EMS with complaints of shortness of breath. On arrival of EMS patient was found to be in SVT with a heart rate of about 200 and blood pressure to be quite elevated with systolic in 200s. She was given 6 mg of adenosine without significant changes subsequently given 12 mg of adenosine with improvement of her heart rate. Upon arrival to the emergency department patient was found to be in atrial fibrillation with RVR and dyspneic. Work-up in the emergency department revealed leukocytosis, lactic acidosis, transaminitis, hypoalbuminemia and a troponin leak. CXR, CT a chest and CT head were unremarkable. Patient was admitted to the hospitalist service with consults to [facility] and cardiology for further work-up of acute on chronic respiratory failure, SVT and hypertensive urgency. 03/18/2021: Patient is intubated and on vent support, Patient is in sinus tachycardia 03/19: COVID-19 PCR negative, remains on ventilatory support, Versed drip changed to propofol. No acute events reported overnight. Tracheal aspirate with few gram-positive Cocci. This afternoon, patient went in to the 150s, giving 500 mL NS bolus and fentanyl push to see if it pain related. If persists then will order prn Ativan per Dr. Gage recommendation. 03/20: Restarted on home metoprolol and abdominal ultrasound showed right hydronephrosis. Abd US shows right hydroureteronephrosis and will obtain a de dicated renal US. She seems to more comfortable on propofol and fentanyl 03/21: Patient's FiO2 had to be decreased overnight due to hypoxia and tachycardia. Hyperkalemia noted and given Kayexalate. 1 unit PRBC for hemoglobin 6.8. [facility] plans to extubate tomorrow. Increase in Lantus. 03/22: Transfuse one unit prbc, failed SBT in the AM d/t hypertension. [facility] extubated the patient but she was reintubated within [address] head ordered and pending read. Given kionex x2 for hyperkalemia 03/23: This morning patient was only on Precedex drip and overnight she had agitation, hypertension and tachycardia. RN instructed to place fentanyl drip. Increase in Lantus for better glucose control. Will remove Wall[place] today. 03/24/2021: no acute events reported overnight. Patient remains intubated and is currently on fentanyl and Precedex. Increase in Lantus due to hyperglycemia. 03/25: no acute events overnight. increase in lantus and decreased steroids today. 03/26: Remains on the vent. Failed SAT/SBT trials this am due to increased HR, in the 150s. Hyperkalemic this am s/p X1 dose of kayaxalate, repeat BMP ordered. Fever overnight with leukocytosis, patient is on steroids, will panculture for now, hold on IV ABx for now 03/27: Patient failed SBT trial this am, HR increased in the 150s, most likely due to her severe anxiety. Patient is back on low dose sedation, continue PRN Xanax. Hyperkalemia still slightly high, X1dose of kayaxalate ordered, repeat lab in the am. 03/28: LIDIA overnight. Remains on precedex and fentanyl gtt, with PRN Xanax for anxiety. Plan for possible SBT again today, per CCM if still not tolerating SBT patient will eventually need a trach 03/29: Patient self-extubated this am, tolerating Bipap SPO2 above 92%. Patient still appears anxious, d/w CCM plan to keep patient the Bipap throughout the day. Will also restart preced gtt for anxiety. Keep patient NPO for now while on continuous Bipap. Low H&H noted, order placed for 1unit of PRBCs, repeat labs or dered. 03/30: Stable on 50% venti mask this am, still with peroids of agitation and increased anxiety remains on precedex gtt. Plan for possible HHFL NC today, continue Bipap at night. Hypoglycemic overnight now on D10w. IVF switched to D51/2NS, nursing to do a bedside swallow. Will D/C IVF if patient is able to tolerate PO. 03/31: With increased agitation/anxiety overnight. HR jumped in the 200s, s/p IV loprepressor. HR improved this in the 120s, remains on precedx gtt. Will attempt to wean to HHFL today. Continue supportive measures Assessment and Plan #Neuro:Severe Anxiety #H/o Anxiety and depression -Remains on precedex gtt -Continue PRN ativan and Haldol for agitation/anxiety -Tritrate a RASS goal 0 to -1 -PO Buspar and Xanax are on hold for now, patient is NPO -Cymbalta on hold, can not be crush -Avoid delirium -Avoid Analgesic/opiate at this time -Maintenance of sleep-wake cycle #Cardio:A. fib with RVR #SVT # Hypertensive emergency-resolved -Presented with high BP and SVT, HR in 200 -s/p X2 doses of adenosine in the ED -Echocardiogram 10/2020 showed EF of 50 to 55% -Short periods of SVT and c/o CP this am post self-extubation, self resolved once patient calmed down -EKG with ST, Troponin are neg -Cardiology consulted, appreciate recommendations -Continue metoprolol BID -Continue AC- Heparin SubQ -Continue blood pressure monitor per protocol -PRN Hydralazine added for SBP greater than 160 #Resp:Acute on chronic respiratory failure #H/o COPD and PAGE -Intubated on 03/17 , extubated and reintubated on 03/22 -Self-extubated this am 03/29 -On Bipap SPO2 at 100% -CCM consulted, appreciate recommendations -Plan to switch to HHFL -Continue Bipap at night -Continue IV Steroids and Nebs per CCM -Continue to wean steroids -VAP bundle addressed -Aspiration precaution HOB above 30 -PRN ABG and CXR per CCm -Continue SPO2 monitoring for SPO2 goal above 92% #GI: Transaminitis-improving -Presented with elevated LFTs -LFTs downtrending, continue to trend LFts -Enteral nutrition on hold -Keep patient NPO for now while on Bipap -NTR on consulted -Continue PPI -Continue BR #:Hyperkalemia-resolved -K normalized, renal function remains stable -Continue to Trend BMP -Strict intake and output -Avoid nephrotoxic medications; Renally dose medications -Monitor and replace electrolytes as needed #Heme:Microcytic anemia -s/p 2unit PRBCs -No s/s of any active bleeding -Repeat H&H is stable -Continue to Trend CBC -Transfuse for hbg <7 -SCDs to BLE while in bed -Continue AC- Heparin SubQ #ID:Leukocytosis #Possible Bilateral Pneumonia -Imagings with bibasilar opacities and Pleural effusion -/ tracheal aspirate with few gram-positive cocci -Patient completed IV Abx course -Afebrile -WBCs is trending down, Patient still on steroids -Continue to wean steroids -Repeat CXR is unchanged this am -Blood cultures and sputum culture NGTD -Hold on IV ABx for now -Trend WBC and fever curve -Continue to F/U on B.cult -Daily CBC monitor -Consider ID consult if febrile or/and if leukocytosis persist #Endo:Type 2 DM #Hyperglycemia-improved -Hypoglycemic BG in the 60s this am -Patient has been NPO while on cont. Bipap -Now on D51/2NS gtt for now, D/C if patient can tolerate PO -Continue SSI q6hrs -Lantus on hold -Avoid hypoglycemia The high probability of a clinically significant, sudden or life threatening deterioration of the [pulm/ID/Endo] system(s) required my full and direct attention, intervention and personal management. The aggregate critical care time was [40] minutes. This time is in addition to time spent performing reported procedures but includes the following: [x] Data Review and interpretation [x] Patient assessment and monitoring of vital signs [x] Documentation [x] Medication orders and management Disposition Plan: ICU Total Time Spent with Patient (Minutes): 40 History Interval history: Patient seen and examined at the bedside. Remains stable on Bipap SPO2 at 100%. Increased Agitation and anxiety overnight, HR jumped in the 200s, received X2 dose IV Lopressor and IV ativan. Remains on precedex gtt and IVF. Hospitalist Physical - Constitutional Vitals: Temp Pulse Resp BP Pulse Ox 97.6 F 105 H 22 109/59 100 03/31/21 09:08 03/31/21 09:00 03/31/21 09:00 03/31/21 09:00 03/31/21 10:00 General appearance: Present: no acute distress, obese - EENT Eyes: Present: PERRL, EOM intact ENT: hearing intact - Neck Neck: Present: normal ROM - Respiratory Respiratory effort: normal Respiratory: bilateral: wheezing - Cardiovascular Rhythm: regular Heart Sounds: Present: S1 & S2 - Extremities Extremities: no ischemia, pulses intact, pulses symmetrical Extremity abnormal: edema - Peripheral Assessment Generalized Edema Type: Non-pitting Edema Degree: 2+ Capillary Refill: < 3 seconds Skin Temperature: Warm Peripheral Pulses: within normal limits - Abdominal General gastrointestinal: soft, non-tender, normal bowel sounds - Integumentary Integumentary: Present: clear, warm, dry - Psychiatric Psychiatric: appropriate mood/affect, cooperative, depressed - Neurologic Neurologic: moves all extremities - Allied Health Allied health notes reviewed: nursing HEART Score - HEART Score Troponin: Troponin T < 0.010 ng/mL (0.00-0.029) 03/29/21 09:24 Results - Labs CBC & Chem 7: 03/31/21 04:41 03/31/21 04:41 Labs: Laboratory Last Values WBC 30.8 K/mm3 (4.5-11.0) H 03/31/21 04:41 RBC 4.13 M/mm3 (3.65-5.03) 03/31/21 04:41 Hgb 9.3 gm/dl (10.1-14.3) L 03/31/21 04:41 Hct 33.0 % (30.3-42.9) 03/31/21 04:41 MCV 80 fl (79-97) 03/31/21 04:41 MCH 23 pg (28-32) L 03/31/21 04:41 MCHC 28 % (30-34) L 03/31/21 04:41 RDW 22.3 % (13.2-15.2) H 03/31/21 04:41 Plt Count 642 K/mm3 (140-440) H 03/31/21 04:41 [place] % (Auto) [employer]er 03/24/21 08:03 Add Manual Diff Complete 03/26/21 05:35 Total Counted 100 03/26/21 05:35 Seg Neuts % (Manual) 72.0 % (40.0-70.0) H 03/26/21 05:35 Band Neutrophils % 5.0 % 03/26/21 05:35 Lymphocytes % (Manual) 6.0 % (13.4-35.0) L 03/26/21 05:35 Reactive Lymphs % (Man) 5.0 % 03/19/21 04:59 Monocytes % (Manual) 8.0 % (0.0-7.3) H 03/26/21 05:35 Metamyelocytes % 3.0 % 03/26/21 05:35 Myelocytes % 5.0 % 03/26/21 05:35 Promyelocytes % 1.0 % 03/26/21 05:35 Nucleated RBC % Not Reportable 03/26/21 05:35 Seg Neutrophils # Man 14.4 K/mm3 (1.8-7.7) H 03/26/21 05:35 Band Neutrophils # 1.0 K/mm3 03/26/21 05:35 Lymphocytes # (Manual) 1.2 K/mm3 (1.2-5.4) 03/26/21 05:35 Abs React Lymphs (Man) 0.0 K/mm3 03/26/21 05:35 Monocytes # (Manual) 1.6 K/mm3 (0.0-0.8) H 03/26/21 05:35 Eosinophils # (Manual) 0.0 K/mm3 (0.0-0.4) 03/26/21 05:35 Basophils # (Manual) 0.0 K/mm3 (0.0-0.1) 03/26/21 05:35 Metamyelocytes # 0.6 K/mm3 03/26/21 05:35 Myelocytes # 1.0 K/mm3 03/26/21 05:35 Promyelocytes # 0.2 K/mm3 03/26/21 05:35 Blast Cells # 0.0 K/mm3 03/26/21 05:35 WBC Morphology Not Reportable 03/26/21 05:35 Hypersegmented Neuts Not Reportable 03/26/21 05:35 Hyposegmented Neuts Not Reportable 03/26/21 05:35 Hypogranular Neuts Not Reportable 03/26/21 05:35 Smudge Cells Not Reportable 03/26/21 05:35 Toxic Granulation Not Reportable 03/26/21 05:35 Toxic Vacuolation Not Reportable 03/26/21 05:35 Dohle Bodies Not Reportable 03/26/21 05:35 Pelger-Huet Anomaly Not Reportable 03/26/21 05:35 Florentino Rods Not Reportable 03/26/21 05:35 Platelet Estimate Consistent w auto 03/26/21 05:35 Clumped Platelets Not Reportable 03/26/21 05:35 Plt Clumps, EDTA Not Reportable 03/26/21 05:35 Large Platelets 1+ 03/26/21 05:35 Giant Platelets Not Reportable 03/26/21 05:35 Platelet Satelliting Not Reportable 03/26/21 05:35 Plt Morphology Comment Not Reportable 03/26/21 05:35 RBC Morphology Not Reportable 03/26/21 05:35 Dimorphic RBCs Not Reportable 03/26/21 05:35 Polychromasia 1+ 03/26/21 05:35 Hypochromasia 2+ 03/26/21 05:35 Poikilocytosis 1+ 03/26/21 05:35 Anisocytosis 2+ 03/26/21 05:35 Microcytosis Not Reportable 03/26/21 05:35 Macrocytosis Not Reportable 03/26/21 05:35 Spherocytes Not Reportable 03/26/21 05:35 Pappenheimer Bodies Not Reportable 03/26/21 05:35 Sickle Cells Not Reportable 03/26/21 05:35 Target Cells 1+ 03/26/21 05:35 Tear Drop Cells 1+ 03/26/21 05:35 Ovalocytes Not Reportable 03/26/21 05:35 Stomatocytes 1+ 03/26/21 05:35 Helmet Cells Not Reportable 03/26/21 05:35 Mabry-Hamel Bodies Not Reportable 03/26/21 05:35 [place] Rings Not Reportable 03/26/21 05:35 Marcelo Cells Not Reportable 03/26/21 05:35 Bite Cells Not Reportable 03/26/21 05:35 Crenated Cell Not Reportable 03/26/21 05:35 Elliptocytes Not Reportable 03/26/21 05:35 Acanthocytes (Spur) Not Reportable 03/26/21 05:35 Rouleaux Not Reportable 03/26/21 05:35 Hemoglobin C Crystals Not Reportable 03/26/21 05:35 Schistocytes 1+ 03/26/21 05:35 Malaria parasites Not Reportable 03/26/21 05:35 Maykel Bodies Not Reportable 03/26/21 05:35 Hem Pathologist Commnt No 03/26/21 05:35 PT 12.6 Sec. (12.2-14.9) 03/17/21 17:37 INR 0.85 (0.87-1.13) L 03/17/21 17:37 APTT 23.3 Sec. (24.2-36.6) L 03/17/21 17:37 D-Dimer 947.92 ng/mlDDU (0-234) H 03/17/21 17:37 ABG pH 7.477 (7.320-7.450) H 03/24/21 08:57 POC ABG pCO2 56.9 mmHg (32.0-48.0) H 03/24/21 08:57 ABG pCO2 72.7 mm Hg 03/23/21 04:50 POC ABG pO2 100.6 mmHg (83-108) 03/24/21 08:57 ABG pO2 70.7 mm Hg (80.0-90.0) L 03/23/21 04:50 POC ABG HCO3 41.1 03/24/21 08:57 ABG HCO3 41.7 mmol/L (20.0-26.0) H 03/23/21 04:50 ABG O2 Saturation 98.3 (0-100) 03/24/21 08:57 ABG O2 Content 7.8 (0.0-44) 03/23/21 04:50 POC ABG Base Excess 15.8 03/24/21 08:57 ABG Base Excess 15.2 mmol/L (-2.0-3.0) H 03/23/21 04:50 ABG Hemoglobin 8.0 (12.0-17.5) L 03/24/21 08:57 ABG Oxyhemoglobin 96.8 (94-98) 03/24/21 08:57 ABG Carboxyhemoglobin 1.7 % (0.0-5.0) 03/23/21 04:50 ABG Methemoglobin 0.3 (0.0-1.5) 03/24/21 08:57 ABG Sodium 139.1 mmol/L (136.0-145.0) 03/24/21 08:57 ABG Potassium 3.9 mmol/L (3.40-4.50) 03/24/21 08:57 ABG Chloride 93.0 mmol/L (98-107) L 03/24/21 08:57 ABG Glucose 328 mg/dL (65-95) H 03/24/21 08:57 Oxyhemoglobin 96.9 % (95.0-99.0) 03/23/21 04:50 Carboxyhemoglobin 1.2 (0.5-1.5) 03/24/21 08:57 FiO2 40 % 03/23/21 04:50 FiO2 % 40 03/24/21 08:57 Sodium 141 mmol/L (137-145) 03/31/21 04:41 Potassium 4.8 mmol/L (3.6-5.0) D 03/31/21 04:41 Chloride 96.3 mmol/L (98-107) L 03/31/21 04:41 Carbon Dioxide 34 mmol/L (22-30) H 03/31/21 04:41 Anion Gap 16 mmol/L 03/31/21 04:41 BUN 15 mg/dL (7-17) 03/31/21 04:41 Creatinine 0.3 mg/dL (0.6-1.2) L 03/31/21 04:41 Estimated GFR > 60 ml/min 03/31/21 04:41 BUN/Creatinine Ratio 50 % 03/31/21 04:41 Glucose 85 mg/dL (65-100) 03/31/21 04:41 POC Glucose 70 mg/dL (70-105) 03/31/21 05:14 Lactic Acid 4.00 mmol/L (0.7-2.0) H* 03/17/21 23:36 Calcium 8.9 mg/dL (8.4-10.2) 03/31/21 04:41 Phosphorus 4.50 mg/dL (2.5-4.5) 03/31/21 04:41 Magnesium 2.20 mg/dL (1.7-2.3) 03/31/21 04:41 Total Bilirubin 0.30 mg/dL (0.1-1.2) 03/26/21 05:35 Direct Bilirubin < 0.2 mg/dL (0-0.2) 03/19/21 12:00 Indirect Bilirubin 0.1 mg/dL 03/19/21 12:00 AST 35 units/L (5-40) 03/26/21 05:35 ALT 169 units/L (7-56) H 03/26/21 05:35 Alkaline Phosphatase 138 units/L (35-129) H 03/26/21 05:35 Ammonia 26.0 umol/L (25-60) 03/19/21 12:00 Total Creatine Kinase 123 units/L (30-135) 03/29/21 09:24 CK-MB (CK-2) 1.5 ng/mL (0.0-4.0) 03/29/21 09:24 CK-MB (CK-2) Rel Index 1.2 (0-4) 03/29/21 09:24 Troponin T < 0.010 ng/mL (0.00-0.029) 03/29/21 09:24 NT-Pro-B Natriuret Pep 576.0 pg/mL (0-900) 03/17/21 17:36 Total Protein 5.5 g/dL (6.3-8.2) L 03/26/21 05:35 Albumin 3.2 g/dL (3.9-5) L 03/26/21 05:35 Albumin/Globulin Ratio 1.4 % 03/26/21 05:35 Triglycerides 189 mg/dL (2-149) H 03/22/21 04:39 Cholesterol 191 mg/dL (50-199) 03/17/21 17:36 LDL Cholesterol Direct 80 mg/dL (50-130) 03/17/21 17:36 HDL Cholesterol 73 mg/dL (40-59) H 03/17/21 17:36 Cholesterol/HDL Ratio 2.61 % 03/17/21 17:36 Amylase 78 units/L (27-131) 03/19/21 Unknown Lipase 12 units/L (13-60) L 03/19/21 Unknown TSH 3.510 mlU/mL (0.270-4.200) 03/17/21 22:57 Arterial Blood Glucose 328 mg/dL (65-95) H 03/24/21 08:57 Arterial Blood Ionized Calcium 4.5 mg/dL (4.6-5.3) L 03/24/21 08:57 Urine Color [place] (Yellow) 03/17/21 19:42 Urine Turbidity Slightly-cloudy (Clear) 03/17/21 19:42 Urine pH 7.0 (5.0-7.0) 03/17/21 19:42 Ur Specific [place] 1.015 (1.003-1.030) 03/17/21 19:42 Urine Protein 100 mg/dl mg/dL (Negative) 03/17/21 19:42 Urine Glucose (UA) Neg mg/dL (Negative) 03/17/21 19:42 Urine Ketones 20 mg/dL (Negative) 03/17/21 19:42 Urine Blood Sm (Negative) 03/17/21 19:42 Urine Nitrite Neg (Negative) 03/17/21 19:42 Urine Bilirubin Neg (Negative) 03/17/21 19:42 Urine Urobilinogen 2.0 mg/dL (<2.0) 03/17/21 19:42 Ur Leukocyte Esterase Neg (Negative) 03/17/21 19:42 Urine WBC (Auto) 4.0 /HPF (0.0-6.0) 03/17/21 19:42 Urine RBC (Auto) 6.0 /HPF (0.0-6.0) 03/17/21 19:42 U Epithel Cells (Auto) 5.0 /HPF (0-13.0) 03/17/21 19:42 Urine Bacteria (Auto) 1+ /HPF (Negative) 03/17/21 19:42 Urine Mucus 1+ /HPF 03/17/21 19:42 Urine Yeast (Budding) Few /HPF 03/17/21 19:42 Acetaminophen 5.0 ug/mL (10.0-30.0) L 03/18/21 23:07 Coronavirus (PCR) Negative (Negative) 03/19/21 Unknown Blood Type A POSITIVE 03/29/21 09:24 Antibody Screen Negative 03/29/21 09:24 Crossmatch See Detail 03/29/21 09:24 Microbiology: Microbiology 03/26/21 08:06 Peripheral/Venous Blood Culture - Final NO GROWTH AFTER 5 DAYS 03/26/21 08:06 Peripheral/Venous Blood Culture - Final NO GROWTH AFTER 5 DAYS [place]/IV: Voiding Method External Female Catheter Active Medications - Current Medications Current Medications: Generic Name Dose Route Start Last Admin Trade Name Freq PRN Reason Stop Dose Admin Acetaminophen 650 mg 03/18/21 00:05 Acetaminophen 325 Mg Tab PO Q6H PRN Pain MILD(1-3)/Fever >100.5/TOVAR Albuterol 2.5 mg 03/22/21 08:00 Albuterol 2.5 Mg/3 Ml Nebu IH Q6H PRN Wheezing Alprazolam 1 mg 03/26/21 10:53 03/28/21 18:21 Alprazolam 1 Mg Tab PO 1 mg Q8H PRN Administration AGITATION Lipase/Protease/Amylase 1 each 03/19/21 18:16 Lipase 10,500/Protease 25,000/Amylase 43,750 (Units) Dr Newman FEEDTUBE PRN PRN For Clogged Feeding Tube Arformoterol Tartrate 15 mcg 03/24/21 11:00 03/31/21 07:53 Arformoterol 15 Mcg/2 Ml Nebu IH 15 mcg Q12HRT BUTCH Administration Atorvastatin Calcium 10 mg 03/19/21 22:00 03/30/21 21:31 Atorvastatin 10 Mg Tab PO Not Given QHS BUTCH Budesonide 0.5 mg 03/24/21 11:00 03/31/21 07:53 Budesonide 0.5 Mg/2 Ml Nebu IH 0.5 mg Q12HRT BUTCH Administration Buspirone HCl 5 mg 03/25/21 14:00 03/30/21 21:32 Buspirone 5 Mg Tab PO Not Given BID BUTCH Dextrose 0 ml 03/17/21 23:58 03/31/21 05:16 Dextrose 50% In Water (25gm) 50 Ml Syringe IV 10 ml Q30MIN PRN Administration Hypoglycemia Protocol Docusate Sodium 100 mg 03/23/21 10:00 03/30/21 21:32 Docusate Sodium 100 Mg/10 Ml Oral Liqd PO Not Given BID ON LICENSE OF [facility] Famotidine 20 mg 03/20/21 22:00 03/30/21 21:37 Famotidine 20 Mg Tab FEEDTUBE Not Given BID ON LICENSE OF [facility] Fentanyl 50 mcg 03/26/21 10:08 03/27/21 20:13 Fentanyl 100 Mcg/2 Ml Inj IV 50 mcg Q2H PRN Administration Pain, Moderate (4-6) Haloperidol Lactate 5 mg 03/30/21 09:52 03/31/21 08:18 Haloperidol Lactate 5 Mg/1 Ml Inj IV 5 mg Q6H PRN Administration Agitation Heparin Sodium (Porcine) 5,000 unit 03/18/21 06:00 03/31/21 05:12 Heparin 5,000 Unit/1 Ml Vial SUB-Q 5,000 unit Q8HR BUTCH Administration Hydralazine HCl 5 mg 03/29/21 10:56 Hydralazine 20 Mg/1 Ml Inj IV Q4HR PRN SBP >160 Hydrophilic Ointment 1 applic 03/17/21 17:35 Lip Therapy Vaseline TP Q2HR PRN Dry Lips Dexmedetomidine HCl 400 mcg/ 104 mls @ 4.306 mls/hr 03/21/21 13:00 03/31/21 08:00 Sodium Chloride IV 0.4 mcg/kg/hr TITRATE BUTCH 8.611 mls/hr Titration Protocol 0.2 MCG/KG/HR Dextrose/Sodium Chloride 1,000 mls @ 75 mls/hr 03/30/21 08:00 03/31/21 00:26 D5/0.45ns IV 75 mls/hr DIRECT BUTCH Administration Insulin Human Lispro 0 unit 03/19/21 12:00 03/31/21 05:16 Insulin Lispro 100 Unit/Ml SUB-Q Not Given Q6HR ON LICENSE OF [facility] Protocol Lorazepam 0.5 mg 03/30/21 09:53 03/31/21 08:17 Lorazepam 2 Mg/Ml Vial IV 0.5 mg Q4H PRN Administration Anxiety Magnesium Hydroxide 30 ml 03/18/21 00:05 03/24/21 09:36 Magnesium Hydroxide (Mom) Oral Liqd Udc PO 30 ml Q4H PRN Administration Constipation Methylprednisolone Sodium Succinate 20 mg 03/31/21 10:00 03/31/21 10:00 Methylprednisolone Sod Succinate 40 Mg/1 Ml Inj IV 20 mg Q24HR BUTCH Administration Metoprolol Tartrate 25 mg 03/20/21 22:00 03/30/21 21:32 Metoprolol Tartrate 25 Mg Tab PO Not Given BID BUTCH Morphine Sulfate 2 mg 03/18/21 00:05 Morphine 2 Mg/1 Ml Inj IV Q4H PRN Pain, Moderate (4-6) Morphine Sulfate 4 mg 03/18/21 00:05 Morphine 4 Mg/1 Ml Inj IV Q4H PRN Pain , Severe (7-10) Multi-Ingred Cream/Lotion/Oil/Oint 1 applic 03/17/21 17:35 Mineral Oil/Petrolatum, White Ophth Oint 3.5 Gm OU Q4HR PRN Dry Eye(s) Senna/Docusate Sodium 1 tab 03/17/21 22:00 03/30/21 21:37 Sennosides/Docusate Sodium 8.6/50 Mg Tab FEEDTUBE Not Given BID ON LICENSE OF [facility] Simple Syrup 15 ml 03/19/21 18:16 Simple Syrup 15 Ml FEEDTUBE PRN PRN Hypoglycemia Simple Syrup 30 ml 03/19/21 18:16 Simple Syrup 15 Ml FEEDTUBE PRN PRN Hypoglycemia Sodium Bicarbonate 325 mg 03/19/21 18:16 Sodium Bicarbonate 325 Mg Tab FEEDTUBE PRN PRN For Clogged Feeding Tube Sodium Chloride 10 ml 03/18/21 10:00 03/30/21 21:47 Sodium Chloride 0.9% 10 Ml Flush Syringe IV 10 ml BID BUTCH Administration Sodium Chloride 10 ml 03/17/21 23:58 03/22/21 23:20 Sodium Chloride 0.9% 10 Ml Flush Syringe IV 10 ml PRN PRN Administration LINE FLUSH Nutrition/Malnutrition Assess - Dietary Evaluation Nutrition/Malnutrition Findings: Nutrition Notes Start: 03/18/21 09 :46 Freq: Status: Active Protocol: Document 03/30/21 13:05 SHELBI (Rec: 03/30/21 13:17 SHELBI [id number]) Nutrition Notes Initial or Follow up Reassessment Current Diagnosis COPD,Diabetes,Hypertension, Respiratory Failure, Hyperlipidemia Other Pertinent Diagnosis SVT, Severe anxiety Current Diet TF - Promote at 70ml/hr Labs/Tests Phos 4.7 BG since last assessment: 291, 311, 348, 289, 197, 310, 295, 194 Pertinent Medications Lantus, Solumedrol, Colace, D5 1/2NS at 75ml/hr Height 5 ft 6 in Weight 82.8 kg [place] Body Weight (kg) 59.09 BMI 29.5 Weight Status Overweight Subjective/Other Information Pt self-extubated yesterday; placed on continuous BiPap support. TF off at time of visit (12:24). Burn Absent Trauma Absent #1 Nutrition Diagnosis Inadequate oral intake Diagnosis Progress(for reassessment Continues documentation) Is patient on ventilator? No Is Patient Ambulatory and/or Out of Bed No REE-([facility]-confined to bed) [phone] Calculation Used for Recommendations [facility] Additional Notes Pro needs 1.2-2g/k-166g/ day Fluid needs 1ml/kcal Nutrition Intervention Nutrition Support: Change TF formula to Vital AF 1.2 at 55ml/hr with 85ml water flush q4h. Kcal 1,584 Protein (gm) 99 Carbohydrates (gm) 146 Fat (gm) 71 Fluid (mL) 1,071 Fiber (gm) 7 Goal #1 Resume TF to meet nutrient needs Follow-Up By: 04/02/21 Additional Comments F/U: TF re-start, TF formula change/tolerance, resp status, BG labs
[2021-03-31] MEDS: fentaNYL 100 MCG/2 ML INJ IV PRN ×2 (11:15→15:37)
[2021-04-01] MEDS: INSULIN LISPRO 100 UNIT/ML SUB-Q SCH ×4 (00:37→19:57)
[2021-04-01] MEDS: D5W/0.45% NACL 1,000 ML IV SCH ×2 (02:57→16:12)
[2021-04-01 05:22] LABS: Mean Corpuscular HGB Conc 28 % (30-34); Mean Corpuscular Volume 80 fl (79-97); Platelet Count 454 K/mm3 (140-440); Red Blood Count 4.02 M/mm3 (3.65-5.03)
[2021-04-01 05:30] LABS: Hemoglobin 9.1 gm/dl (10.1-14.3); Red Cell Distribution Width 22.3 % (13.2-15.2)
[2021-04-01 05:35] LABS: Blood Urea Nitrogen 13 mg/dL (7-17); Calcium 9.1 mg/dL (8.4-10.2); Hemolysis Index 15
[2021-04-01 05:41] LABS: BUN/Creatinine Ratio 33
[2021-04-01] MEDS: BUDESONIDE 0.5 MG/2 ML NEBU IH SCH ×2 (07:03→20:47)
[2021-04-01] MEDS: ARFORMOTEROL 15 MCG/2 ML NEBU IH SCH ×2 (07:03→20:47)
[2021-04-01] MEDS: HALOPERIDOL LACTATE 5 MG/1 ML INJ IV PRN (08:33)
[2021-04-01] MEDS: MORPHINE 4 MG/1 ML INJ IV PRN (09:27)
[2021-04-01] MEDS: methylPREDNISolone Sod Succinate 40 MG/1 ML INJ IV SCH (09:27)
--- NOTE | 2021-04-01 09:34 | Progress Note ---
Assessment and Plan - Patient Problems (1) Acute hypercapnic respiratory failure Current Visit: Yes Status: Acute (2) Anemia Current Visit: Yes Status: Acute (3) COPD exacerbation Current Visit: Yes Status: Acute (4) Respiratory failure Current Visit: Yes Status: Acute (5) Acute bronchitis Current Visit: No Status: Acute (6) Acute respiratory failure with hypoxia Current Visit: No Status: Acute (7) CHF (congestive heart failure) Current Visit: No Status: Acute Qualifiers: Heart failure type: systolic (8) Chronic hypercapnic respiratory failure Current Visit: No Status: Acute (9) Debilitated patient Current Visit: No Status: Acute Subjective Principal diagnosis: Atrial fibrillation with RVR, respiratory failure Interval history: awake and responsive still in mod distress Objective Vital Signs - 12hr 03/31/21 03/31/21 03/31/21 22:00 22:30 23:00 Temperature Pulse Rate 74 75 80 Pulse Rate [ 78 Bilateral] Pulse Rate [ From Monitor] Respiratory 17 16 16 Rate Respiratory 19 Rate [Bilateral ] Blood Pressure 95/58 80/62 106/67 O2 Sat by Pulse 100 100 100 Oximetry 03/31/21 03/31/21 04/01/21 23:10 23:30 00:00 Temperature 98.6 F Pulse Rate 76 77 77 Pulse Rate [ Bilateral] Pulse Rate [ 84 From Monitor] Respiratory 18 17 19 Rate Respiratory Rate [Bilateral ] Blood Pressure 106/67 101/64 139/88 O2 Sat by Pulse 100 100 100 Oximetry 04/01/21 04/01/21 04/01/21 00:08 00:30 01:00 Temperature Pulse Rate 89 73 78 Pulse Rate [ Bilateral] Pulse Rate [ From Monitor] Respiratory 21 16 18 Rate Respiratory Rate [Bilateral ] Blood Pressure 108/63 102/59 98/60 O2 Sat by Pulse 100 100 100 Oximetry 04/01/21 04/01/21 04/01/21 01:30 02:00 02:30 Temperature Pulse Rate 76 81 72 Pulse Rate [ Bilateral] Pulse Rate [ From Monitor] Respiratory 19 25 H 16 Rate Respiratory Rate [Bilateral ] Blood Pressure 96/58 102/61 98/65 O2 Sat by Pulse 100 100 100 Oximetry 04/01/21 04/01/21 04/01/21 03:00 03:30 04:00 Temperature 98.5 F Pulse Rate 72 66 72 Pulse Rate [ Bilateral] Pulse Rate [ 84 From Monitor] Respiratory 18 16 16 Rate Respiratory Rate [Bilateral ] Blood Pressure 96/56 103/52 97/56 O2 Sat by Pulse 100 100 100 Oximetry 04/01/21 04/01/21 04/01/21 04:13 04:30 05:00 Temperature Pulse Rate 64 78 73 Pulse Rate [ Bilateral] Pulse Rate [ From Monitor] Respiratory 16 21 18 Rate Respiratory Rate [Bilateral ] Blood Pressure 96/56 96/56 110/76 O2 Sat by Pulse 100 100 100 Oximetry 04/01/21 04/01/21 04/01/21 05:30 06:00 06:30 Temperature Pulse Rate 73 70 73 Pulse Rate [ Bilateral] Pulse Rate [ From Monitor] Respiratory 18 17 17 Rate Respiratory Rate [Bilateral ] Blood Pressure 111/77 111/77 111/58 O2 Sat by Pulse 100 100 100 Oximetry 04/01/21 04/01/21 04/01/21 07:00 07:04 07:05 Temperature Pulse Rate 75 75 Pulse Rate [ 79 Bilateral] Pulse Rate [ From Monitor] Respiratory 17 18 Rate Respiratory 18 Rate [Bilateral ] Blood Pressure 115/67 115/67 O2 Sat by Pulse 100 100 Oximetry 04/01/21 04/01/21 04/01/21 07:28 07:30 08:00 Temperature 98.5 F Pulse Rate 107 H 182 H Pulse Rate [ Bilateral] Pulse Rate [ From Monitor] Respiratory 18 26 H Rate Respiratory Rate [Bilateral ] Blood Pressure 115/67 141/104 O2 Sat by Pulse 100 85 Oximetry 04/01/21 04/01/21 08:30 09:00 Temperature Pulse Rate 123 H 145 H Pulse Rate [ Bilateral] Pulse Rate [ From Monitor] Respiratory 29 H 29 H Rate Respiratory Rate [Bilateral ] Blood Pressure 152/87 182/110 O2 Sat by Pulse 96 91 Oximetry Constitutional: other (moderate distress) Eyes: non-icteric ENT: oropharynx moist Neck: supple Effort: normal Ascultation: Bilateral: diminished breath sounds Cardiovascular: regular rate and rhythm (no mrg) Gastrointestinal: normoactive bowel sounds, soft, non-tender, non-distended Extremities: no cyanosis, no edema, pink and warm Neurologic: normal mental status, non-focal exam, pupils equal and round Psychiatric: mood appropriate, affect normal CBC and BMP: 04/01/21 04:27 04/01/21 04:27 ABG, PT/INR, D-dimer: ABG ABG pH 7.477 (7.320-7.450) H 03/24/21 08:57 POC ABG pCO2 56.9 mmHg (32.0-48.0) H 03/24/21 08:57 ABG pCO2 72.7 mm Hg 03/23/21 04:50 POC ABG pO2 100.6 mmHg (83-108) 03/24/21 08:57 ABG pO2 70.7 mm Hg (80.0-90.0) L 03/23/21 04:50 POC ABG HCO3 41.1 03/24/21 08:57 ABG O2 Saturation 98.3 (0-100) 03/24/21 08:57 PT/INR, D-dimer PT 12.6 Sec. (12.2-14.9) 03/17/21 17:37 INR 0.85 (0.87-1.13) L 03/17/21 17:37 D-Dimer 947.92 ng/mlDDU (0-234) H 03/17/21 17:37 Abnormal lab findings: Abnormal Labs 03/17/21 03/17/21 03/17/21 17:36 17:36 17:37 WBC 13.8 H RBC 3.48 L Hgb 7.0 L Hct 26.2 L MCV 75 L MCH 20 L MCHC 27 L RDW 25.4 H Plt Count Seg Neuts % (Manual) Lymphocytes % (Manual) Monocytes % (Manual) Nucleated RBC % 7.0 H Seg Neutrophils # Man 8.7 H Lymphocytes # (Manual) Monocytes # (Manual) INR 0.85 L APTT 23.3 L D-Dimer 947.92 H ABG pH POC ABG pCO2 POC ABG pO2 ABG pO2 ABG HCO3 ABG O2 Saturation ABG Base Excess ABG Hemoglobin ABG Oxyhemoglobin ABG Potassium ABG Chloride ABG Glucose Oxyhemoglobin Potassium Chloride 88.2 L Carbon Dioxide 38 H BUN Creatinine Glucose 129 H POC Glucose Lactic Acid Calcium Phosphorus Magnesium AST 177 H ALT 251 H Alkaline Phosphatase Ammonia Troponin T 0.036 H Total Protein 5.9 L Albumin 3.8 L Triglycerides 173 H HDL Cholesterol 73 H Lipase Arterial Blood Glucose Arterial Blood Ionized Calcium Acetaminophen Crossmatch 03/17/21 03/17/21 03/17/21 18:15 18:40 18:40 WBC RBC Hgb Hct MCV MCH MCHC RDW Plt Count Seg Neuts % (Manual) Lymphocytes % (Manual) Monocytes % (Manual) Nucleated RBC % Seg Neutrophils # Man Lymphocytes # (Manual) Monocytes # (Manual) INR APTT D-Dimer ABG pH POC ABG pCO2 POC ABG pO2 ABG pO2 94.4 H ABG HCO3 44.8 H ABG O2 Saturation ABG Base Excess 16.6 H ABG Hemoglobin ABG Oxyhemoglobin ABG Potassium ABG Chloride ABG Glucose Oxyhemoglobin Potassium Chloride Carbon Dioxide BUN Creatinine Glucose POC Glucose Lactic Acid 4.00 H* Calcium Phosphorus Magnesium AST ALT Alkaline Phosphatase Ammonia 116.0 H Troponin T Total Protein Albumin Triglycerides HDL Cholesterol Lipase Arterial Blood Glucose Arterial Blood Ionized Calcium Acetaminophen Crossmatch 03/17/21 03/18/21 03/18/21 23:36 00:25 23:07 WBC RBC Hgb Hct MCV MCH MCHC RDW Plt Count Seg Neuts % (Manual) Lymphocytes % (Manual) Monocytes % (Manual) Nucleated RBC % Seg Neutrophils # Man Lymphocytes # (Manual) Monocytes # (Manual) INR APTT D-Dimer ABG pH POC ABG pCO2 POC ABG pO2 ABG pO2 68.1 L ABG HCO3 40.2 H ABG O2 Saturation ABG Base Excess 14.4 H ABG Hemoglobin 6.5 L ABG Oxyhemoglobin ABG Potassium ABG Chloride ABG Glucose Oxyhemoglobin Potassium Chloride Carbon Dioxide BUN Creatinine Glucose POC Glucose Lactic Acid 4.00 H* Calcium Phosphorus Magnesium AST ALT Alkaline Phosphatase Ammonia Troponin T Total Protein Albumin Triglycerides HDL Cholesterol Lipase Arterial Blood Glucose Arterial Blood Ionized Calcium Acetaminophen 5.0 L Crossmatch 03/19/21 03/19/21 03/19/21 00:50 03:25 04:59 WBC RBC 3.43 L Hgb 7.0 L Hct 25.6 L MCV 75 L MCH 20 L MCHC 27 L RDW 25.6 H Plt Count Seg Neuts % (Manual) 91.0 H Lymphocytes % (Manual) Monocytes % (Manual) 9.0 H Nucleated RBC % 3.0 H Seg Neutrophils # Man 9.0 H Lymphocytes # (Manual) 0.0 L Monocytes # (Manual) INR APTT D-Dimer ABG pH 7.531 H POC ABG pCO2 POC ABG pO2 ABG pO2 49.6 L ABG HCO3 31.4 H ABG O2 Saturation 99.6 H ABG Base Excess 8.1 H ABG Hemoglobin 7.2 L ABG Oxyhemoglobin ABG Potassium ABG Chloride ABG Glucose Oxyhemoglobin Potassium Chloride Carbon Dioxide BUN Creatinine Glucose POC Glucose 127 H Lactic Acid Calcium Phosphorus Magnesium AST ALT Alkaline Phosphatase Ammonia Troponin T Total Protein Albumin Triglycerides HDL Cholesterol Lipase Arterial Blood Glucose Arterial Blood Ionized Calcium Acetaminophen Crossmatch 03/19/21 03/19/21 03/19/21 04:59 10:37 12:00 WBC RBC Hgb Hct MCV MCH MCHC RDW Plt Count Seg Neuts % (Manual) Lymphocytes % (Manual) Monocytes % (Manual) Nucleated RBC % Seg Neutrophils # Man Lymphocytes # (Manual) Monocytes # (Manual) INR APTT D-Dimer ABG pH 7.494 H POC ABG pCO2 POC ABG pO2 ABG pO2 107.3 H ABG HCO3 31.6 H ABG O2 Saturation ABG Base Excess 7.7 H ABG Hemoglobin 7.1 L ABG Oxyhemoglobin ABG Potassium ABG Chloride ABG Glucose Oxyhemoglobin Potassium Chloride 89.5 L Carbon Dioxide BUN Creatinine Glucose 121 H POC Glucose Lactic Acid Calcium Phosphorus Magnesium AST 359 H ALT 1434 H Alkaline Phosphatase Ammonia Troponin T Total Protein 5.7 L Albumin 3.5 L Triglycerides HDL Cholesterol Lipase Arterial Blood Glucose Arterial Blood Ionized Calcium Acetaminophen Crossmatch 03/19/21 03/19/21 03/19/21 12:05 17:52 23:23 WBC RBC Hgb Hct MCV MCH MCHC RDW Plt Count Seg Neuts % (Manual) Lymphocytes % (Manual) Monocytes % (Manual) Nucleated RBC % Seg Neutrophils # Man Lymphocytes # (Manual) Monocytes # (Manual) INR APTT D-Dimer ABG pH POC ABG pCO2 POC ABG pO2 ABG pO2 ABG HCO3 ABG O2 Saturation ABG Base Excess ABG Hemoglobin ABG Oxyhemoglobin ABG Potassium ABG Chloride ABG Glucose Oxyhemoglobin Potassium Chloride Carbon Dioxide BUN Creatinine Glucose POC Glucose 122 H 114 H 187 H Lactic Acid Calcium Phosphorus Magnesium AST ALT Alkaline Phosphatase Ammonia Troponin T Total Protein Albumin Triglycerides HDL Cholesterol Lipase Arterial Blood Glucose Arterial Blood Ionized Calcium Acetaminophen Crossmatch 03/19/21 03/20/21 03/20/21 Unknown 03:50 03:57 WBC RBC Hgb Hct MCV MCH MCHC RDW Plt Count Seg Neuts % (Manual) Lymphocytes % (Manual) Monocytes % (Manual) Nucleated RBC % Seg Neutrophils # Man Lymphocytes # (Manual) Monocytes # (Manual) INR APTT D-Dimer ABG pH 7.477 H POC ABG pCO2 POC ABG pO2 ABG pO2 67.9 L ABG HCO3 33.9 H ABG O2 Saturation ABG Base Excess 9.5 H ABG Hemoglobin 6.7 L ABG Oxyhemoglobin ABG Potassium ABG Chloride ABG Glucose Oxyhemoglobin Potassium Chloride Carbon Dioxide BUN Creatinine Glucose POC Glucose 247 H Lactic Acid Calcium Phosphorus Magnesium AST ALT Alkaline Phosphatase Ammonia Troponin T Total Protein Albumin Triglycerides HDL Cholesterol Lipase 12 L Arterial Blood Glucose Arterial Blood Ionized Calcium Acetaminophen Crossmatch 03/20/21 03/20/21 03/20/21 04:18 04:18 10:16 WBC RBC 3.48 L Hgb 7.0 L Hct 25.3 L MCV 73 L MCH 20 L MCHC 28 L RDW 25.2 H Plt Count 541 H Seg Neuts % (Manual) Lymphocytes % (Manual) Monocytes % (Manual) Nucleated RBC % Seg Neutrophils # Man Lymphocytes # (Manual) Monocytes # (Manual) INR APTT D-Dimer ABG pH POC ABG pCO2 POC ABG pO2 ABG pO2 63.3 L ABG HCO3 34.0 H ABG O2 Saturation 90.0 L ABG Base Excess 7.9 H ABG Hemoglobin 10.5 L ABG Oxyhemoglobin ABG Potassium ABG Chloride ABG Glucose Oxyhemoglobin 88.1 L Potassium Chloride 91.6 L Carbon Dioxide BUN 22 H Creatinine Glucose 245 H POC Glucose Lactic Acid Calcium Phosphorus Magnesium AST 148 H ALT 1096 H Alkaline Phosphatase 133 H Ammonia Troponin T Total Protein Albumin 3.5 L Triglycerides HDL Cholesterol Lipase Arterial Blood Glucose Arterial Blood Ionized Calcium Acetaminophen Crossmatch 03/20/21 03/20/21 03/21/21 12:05 17:26 00:18 WBC RBC Hgb Hct MCV MCH MCHC RDW Plt Count Seg Neuts % (Manual) Lymphocytes % (Manual) Monocytes % (Manual) Nucleated RBC % Seg Neutrophils # Man Lymphocytes # (Manual) Monocytes # (Manual) INR APTT D-Dimer ABG pH POC ABG pCO2 POC ABG pO2 ABG pO2 ABG HCO3 ABG O2 Saturation ABG Base Excess ABG Hemoglobin ABG Oxyhemoglobin ABG Potassium ABG Chloride ABG Glucose Oxyhemoglobin Potassium Chloride Carbon Dioxide BUN Creatinine Glucose POC Glucose 226 H 215 H 323 H Lactic Acid Calcium Phosphorus Magnesium AST ALT Alkaline Phosphatase Ammonia Troponin T Total Protein Albumin Triglycerides HDL Cholesterol Lipase Arterial Blood Glucose Arterial Blood Ionized Calcium Acetaminophen Crossmatch 03/21/21 03/21/21 03/21/21 04:00 05:05 09:28 WBC 12.0 H RBC 3.42 L Hgb 6.8 L Hct 25.3 L MCV 74 L MCH 20 L MCHC 27 L RDW 25.1 H Plt Count 650 H Seg Neuts % (Manual) Lymphocytes % (Manual) Monocytes % (Manual) Nucleated RBC % Seg Neutrophils # Man Lymphocytes # (Manual) Monocytes # (Manual) INR APTT D-Dimer ABG pH 7.348 L POC ABG pCO2 POC ABG pO2 ABG pO2 56.3 L ABG HCO3 36.9 H ABG O2 Saturation 83.4 L ABG Base Excess 10.0 H ABG Hemoglobin 7.0 L ABG Oxyhemoglobin ABG Potassium ABG Chloride ABG Glucose Oxyhemoglobin 81.7 L Potassium Chloride Carbon Dioxide BUN Creatinine Glucose POC Glucose 311 H Lactic Acid Calcium Phosphorus Magnesium AST ALT Alkaline Phosphatase Ammonia Troponin T Total Protein Albumin Triglycerides HDL Cholesterol Lipase Arterial Blood Glucose Arterial Blood Ionized Calcium Acetaminophen Crossmatch 03/21/21 03/21/21 03/21/21 09:28 12:31 14:08 WBC RBC Hgb Hct MCV MCH MCHC RDW Plt Count Seg Neuts % (Manual) Lymphocytes % (Manual) Monocytes % (Manual) Nucleated RBC % Seg Neutrophils # Man Lymphocytes # (Manual) Monocytes # (Manual) INR APTT D-Dimer ABG pH POC ABG pCO2 POC ABG pO2 ABG pO2 ABG HCO3 ABG O2 Saturation ABG Base Excess ABG Hemoglobin ABG Oxyhemoglobin ABG Potassium ABG Chloride ABG Glucose Oxyhemoglobin Potassium 5.1 H D Chloride 94.4 L Carbon Dioxide 33 H BUN 32 H Creatinine Glucose 319 H POC Glucose 295 H Lactic Acid Calcium Phosphorus Magnesium 2.40 H AST ALT 697 H Alkaline Phosphatase 134 H Ammonia Troponin T Total Protein 5.8 L Albumin 3.4 L Triglycerides HDL Cholesterol Lipase Arterial Blood Glucose Arterial Blood Ionized Calcium Acetaminophen Crossmatch See Detail 03/22/21 03/22/21 03/22/21 00:14 04:30 04:39 WBC RBC Hgb Hct MCV MCH MCHC RDW Plt Count Seg Neuts % (Manual) Lymphocytes % (Manual) Monocytes % (Manual) Nucleated RBC % Seg Neutrophils # Man Lymphocytes # (Manual) Monocytes # (Manual) INR APTT D-Dimer ABG pH 7.310 L POC ABG pCO2 POC ABG pO2 ABG pO2 65.4 L ABG HCO3 38.3 H ABG O2 Saturation 90.8 L ABG Base Excess 10.9 H ABG Hemoglobin 6.4 L ABG Oxyhemoglobin ABG Potassium ABG Chloride ABG Glucose Oxyhemoglobin 88.7 L Potassium Chloride Carbon Dioxide BUN Creatinine Glucose POC Glucose 326 H Lactic Acid Calcium Phosphorus Magnesium AST ALT Alkaline Phosphatase Ammonia Troponin T Total Protein Albumin Triglycerides 189 H HDL Cholesterol Lipase Arterial Blood Glucose Arterial Blood Ionized Calcium Acetaminophen Crossmatch 03/22/21 03/22/21 03/22/21 04:39 04:39 09:45 WBC 12.8 H RBC 3.34 L Hgb 6.6 L Hct 24.5 L MCV 73 L MCH 20 L MCHC 27 L RDW 25.5 H Plt Count 644 H Seg Neuts % (Manual) Lymphocytes % (Manual) Monocytes % (Manual) Nucleated RBC % Seg Neutrophils # Man Lymphocytes # (Manual) Monocytes # (Manual) INR APTT D-Dimer ABG pH POC ABG pCO2 65.7 H POC ABG pO2 59.7 L ABG pO2 ABG HCO3 ABG O2 Saturation ABG Base Excess ABG Hemoglobin 8.0 L ABG Oxyhemoglobin 86.3 L ABG Potassium 4.7 H ABG Chloride 94.0 L ABG Glucose 208 H Oxyhemoglobin Potassium 5.3 H Chloride 94.6 L Carbon Dioxide 34 H BUN 33 H Creatinine Glucose 291 H POC Glucose Lactic Acid Calcium Phosphorus Magnesium AST ALT Alkaline Phosphatase Ammonia Troponin T Total Protein Albumin Triglycerides HDL Cholesterol Lipase Arterial Blood Glucose 208 H Arterial Blood Ionized Calcium Acetaminophen Crossmatch 03/22/21 03/22/21 03/23/21 21:33 23:58 04:42 WBC 14.3 H RBC 3.63 L Hgb 7.6 L Hct 27.0 L MCV 74 L MCH 21 L MCHC 28 L RDW 23.1 H Plt Count 567 H Seg Neuts % (Manual) Lymphocytes % (Manual) Monocytes % (Manual) Nucleated RBC % Seg Neutrophils # Man Lymphocytes # (Manual) Monocytes # (Manual) INR APTT D-Dimer ABG pH POC ABG pCO2 POC ABG pO2 ABG pO2 ABG HCO3 ABG O2 Saturation ABG Base Excess ABG Hemoglobin ABG Oxyhemoglobin ABG Potassium ABG Chloride ABG Glucose Oxyhemoglobin Potassium Chloride Carbon Dioxide BUN Creatinine Glucose POC Glucose 170 H 156 H Lactic Acid Calcium Phosphorus Magnesium AST ALT Alkaline Phosphatase Ammonia Troponin T Total Protein Albumin Triglycerides HDL Cholesterol Lipase Arterial Blood Glucose Arterial Blood Ionized Calcium Acetaminophen Crossmatch 03/23/21 03/23/21 03/23/21 04:42 04:50 22:25 WBC RBC Hgb Hct MCV MCH MCHC RDW Plt Count Seg Neuts % (Manual) Lymphocytes % (Manual) Monocytes % (Manual) Nucleated RBC % Seg Neutrophils # Man Lymphocytes # (Manual) Monocytes # (Manual) INR APTT D-Dimer ABG pH POC ABG pCO2 POC ABG pO2 ABG pO2 70.7 L ABG HCO3 41.7 H ABG O2 Saturation ABG Base Excess 15.2 H ABG Hemoglobin 5.6 L ABG Oxyhemoglobin ABG Potassium ABG Chloride ABG Glucose Oxyhemoglobin Potassium Chloride 94.6 L Carbon Dioxide 37 H BUN 27 H Creatinine Glucose 311 H POC Glucose 295 H Lactic Acid Calcium Phosphorus Magnesium AST ALT Alkaline Phosphatase Ammonia Troponin T Total Protein Albumin Triglycerides HDL Cholesterol Lipase Arterial Blood Glucose Arterial Blood Ionized Calcium Acetaminophen Crossmatch 03/23/21 03/24/21 03/24/21 23:13 05:13 07:59 WBC RBC Hgb Hct MCV MCH MCHC RDW Plt Count Seg Neuts % (Manual) Lymphocytes % (Manual) Monocytes % (Manual) Nucleated RBC % Seg Neutrophils # Man Lymphocytes # (Manual) Monocytes # (Manual) INR APTT D-Dimer ABG pH POC ABG pCO2 POC ABG pO2 ABG pO2 ABG HCO3 ABG O2 Saturation ABG Base Excess ABG Hemoglobin ABG Oxyhemoglobin ABG Potassium ABG Chloride ABG Glucose Oxyhemoglobin Potassium Chloride Carbon Dioxide BUN Creatinine Glucose POC Glucose 336 H 303 H 333 H Lactic Acid Calcium Phosphorus Magnesium AST ALT Alkaline Phosphatase Ammonia Troponin T Total Protein Albumin Triglycerides HDL Cholesterol Lipase Arterial Blood Glucose Arterial Blood Ionized Calcium Acetaminophen Crossmatch 03/24/21 03/24/21 03/24/21 08:03 08:03 08:57 WBC 12.7 H RBC 3.48 L Hgb 7.3 L Hct 26.3 L MCV 76 L MCH 21 L MCHC 28 L RDW 24.1 H Plt Count 499 H Seg Neuts % (Manual) Lymphocytes % (Manual) 1.0 L Monocytes % (Manual) 16.0 H Nucleated RBC % 11.0 H Seg Neutrophils # Man 8.1 H Lymphocytes # (Manual) 0.1 L Monocytes # (Manual) 2.1 H INR APTT D-Dimer ABG pH 7.477 H POC ABG pCO2 56.9 H POC ABG pO2 ABG pO2 ABG HCO3 ABG O2 Saturation ABG Base Excess ABG Hemoglobin 8.0 L ABG Oxyhemoglobin ABG Potassium ABG Chloride 93.0 L ABG Glucose 328 H Oxyhemoglobin Potassium Chloride 94.4 L Carbon Dioxide 38 H BUN 26 H Creatinine 0.5 L Glucose 348 H POC Glucose Lactic Acid Calcium Phosphorus Magnesium AST ALT Alkaline Phosphatase Ammonia Troponin T Total Protein Albumin Triglycerides HDL Cholesterol Lipase Arterial Blood Glucose 328 H Arterial Blood Ionized Calcium 4.5 L Acetaminophen Crossmatch 03/24/21 03/24/21 03/25/21 12:14 17:45 04:00 WBC 15.8 H RBC Hgb 7.5 L Hct 27.4 L MCV 75 L MCH 21 L MCHC 28 L RDW 24.0 H Plt Count 576 H Seg Neuts % (Manual) Lymphocytes % (Manual) Monocytes % (Manual) Nucleated RBC % Seg Neutrophils # Man Lymphocytes # (Manual) Monocytes # (Manual) INR APTT D-Dimer ABG pH POC ABG pCO2 POC ABG pO2 ABG pO2 ABG HCO3 ABG O2 Saturation ABG Base Excess ABG Hemoglobin ABG Oxyhemoglobin ABG Potassium ABG Chloride ABG Glucose Oxyhemoglobin Potassium Chloride Carbon Dioxide BUN Creatinine Glucose POC Glucose 315 H 324 H Lactic Acid Calcium Phosphorus Magnesium AST ALT Alkaline Phosphatase Ammonia Troponin T Total Protein Albumin Triglycerides HDL Cholesterol Lipase Arterial Blood Glucose Arterial Blood Ionized Calcium Acetaminophen Crossmatch 03/25/21 03/25/21 03/25/21 07:52 16:37 17:38 WBC RBC Hgb Hct MCV MCH MCHC RDW Plt Count Seg Neuts % (Manual) Lymphocytes % (Manual) Monocytes % (Manual) Nucleated RBC % Seg Neutrophils # Man Lymphocytes # (Manual) Monocytes # (Manual) INR APTT D-Dimer ABG pH POC ABG pCO2 POC ABG pO2 ABG pO2 ABG HCO3 ABG O2 Saturation ABG Base Excess ABG Hemoglobin ABG Oxyhemoglobin ABG Potassium ABG Chloride ABG Glucose Oxyhemoglobin Potassium Chloride 95.9 L Carbon Dioxide 33 H BUN 24 H Creatinine 0.4 L Glucose 289 H POC Glucose 321 H 295 H Lactic Acid Calcium Phosphorus Magnesium AST ALT Alkaline Phosphatase Ammonia Troponin T Total Protein Albumin Triglycerides HDL Cholesterol Lipase Arterial Blood Glucose Arterial Blood Ionized Calcium Acetaminophen Crossmatch 03/25/21 03/26/21 03/26/21 23:27 05:07 05:35 WBC 20.0 H RBC 3.37 L Hgb 7.0 L Hct 25.2 L MCV 75 L MCH 21 L MCHC 28 L RDW 24.0 H Plt Count 544 H Seg Neuts % (Manual) 72.0 H Lymphocytes % (Manual) 6.0 L Monocytes % (Manual) 8.0 H Nucleated RBC % Seg Neutrophils # Man 14.4 H Lymphocytes # (Manual) Monocytes # (Manual) 1.6 H INR APTT D-Dimer ABG pH POC ABG pCO2 POC ABG pO2 ABG pO2 ABG HCO3 ABG O2 Saturation ABG Base Excess ABG Hemoglobin ABG Oxyhemoglobin ABG Potassium ABG Chloride ABG Glucose Oxyhemoglobin Potassium Chloride Carbon Dioxide BUN Creatinine Glucose POC Glucose 231 H 200 H Lactic Acid Calcium Phosphorus Magnesium AST ALT Alkaline Phosphatase Ammonia Troponin T Total Protein Albumin Triglycerides HDL Cholesterol Lipase Arterial Blood Glucose Arterial Blood Ionized Calcium Acetaminophen Crossmatch 03/26/21 03/26/21 03/26/21 05:35 10:33 12:12 WBC RBC Hgb Hct MCV MCH MCHC RDW Plt Count Seg Neuts % (Manual) Lymphocytes % (Manual) Monocytes % (Manual) Nucleated RBC % Seg Neutrophils # Man Lymphocytes # (Manual) Monocytes # (Manual) INR APTT D-Dimer ABG pH POC ABG pCO2 POC ABG pO2 ABG pO2 ABG HCO3 ABG O2 Saturation ABG Base Excess ABG Hemoglobin ABG Oxyhemoglobin ABG Potassium ABG Chloride ABG Glucose Oxyhemoglobin Potassium 5.9 H D Chloride 91.9 L Carbon Dioxide 33 H BUN 20 H Creatinine 0.4 L Glucose 197 H POC Glucose 132 H 176 H Lactic Acid Calcium Phosphorus Magnesium AST ALT 169 H Alkaline Phosphatase 138 H Ammonia Troponin T Total Protein 5.5 L Albumin 3.2 L Triglycerides HDL Cholesterol Lipase Arterial Blood Glucose Arterial Blood Ionized Calcium Acetaminophen Crossmatch 03/26/21 03/26/21 03/26/21 16:50 18:06 22:19 WBC RBC Hgb Hct MCV MCH MCHC RDW Plt Count Seg Neuts % (Manual) Lymphocytes % (Manual) Monocytes % (Manual) Nucleated RBC % Seg Neutrophils # Man Lymphocytes # (Manual) Monocytes # (Manual) INR APTT D-Dimer ABG pH POC ABG pCO2 POC ABG pO2 ABG pO2 ABG HCO3 ABG O2 Saturation ABG Base Excess ABG Hemoglobin ABG Oxyhemoglobin ABG Potassium ABG Chloride ABG Glucose Oxyhemoglobin Potassium 5.2 H Chloride 91.7 L Carbon Dioxide 38 H BUN 19 H Creatinine 0.4 L Glucose 260 H POC Glucose 248 H 168 H Lactic Acid Calcium Phosphorus Magnesium AST ALT Alkaline Phosphatase Ammonia Troponin T Total Protein Albumin Triglycerides HDL Cholesterol Lipase Arterial Blood Glucose Arterial Blood Ionized Calcium Acetaminophen Crossmatch 03/27/21 03/27/21 03/27/21 01:02 01:32 04:15 WBC 21.4 H RBC 3.45 L Hgb 6.9 L Hct 26.2 L MCV 76 L MCH 20 L MCHC 27 L RDW 24.5 H Plt Count 500 H Seg Neuts % (Manual) Lymphocytes % (Manual) Monocytes % (Manual) Nucleated RBC % Seg Neutrophils # Man Lymphocytes # (Manual) Monocytes # (Manual) INR APTT D-Dimer ABG pH POC ABG pCO2 POC ABG pO2 ABG pO2 ABG HCO3 ABG O2 Saturation ABG Base Excess ABG Hemoglobin ABG Oxyhemoglobin ABG Potassium ABG Chloride ABG Glucose Oxyhemoglobin Potassium Chloride Carbon Dioxide BUN Creatinine Glucose POC Glucose 219 H 221 H Lactic Acid Calcium Phosphorus Magnesium AST ALT Alkaline Phosphatase Ammonia Troponin T Total Protein Albumin Triglycerides HDL Cholesterol Lipase Arterial Blood Glucose Arterial Blood Ionized Calcium Acetaminophen Crossmatch 03/27/21 03/27/21 03/27/21 04:15 06:37 11:21 WBC RBC Hgb Hct MCV MCH MCHC RDW Plt Count Seg Neuts % (Manual) Lymphocytes % (Manual) Monocytes % (Manual) Nucleated RBC % Seg Neutrophils # Man Lymphocytes # (Manual) Monocytes # (Manual) INR APTT D-Dimer ABG pH POC ABG pCO2 POC ABG pO2 ABG pO2 ABG HCO3 ABG O2 Saturation ABG Base Excess ABG Hemoglobin ABG Oxyhemoglobin ABG Potassium ABG Chloride ABG Glucose Oxyhemoglobin Potassium 5.3 H Chloride 94.4 L Carbon Dioxide 35 H BUN 20 H Creatinine 0.4 L Glucose 310 H POC Glucose 312 H 273 H Lactic Acid Calcium 8.3 L Phosphorus 4.60 H D Magnesium AST ALT Alkaline Phosphatase Ammonia Troponin T Total Protein Albumin Triglycerides HDL Cholesterol Lipase Arterial Blood Glucose Arterial Blood Ionized Calcium Acetaminophen Crossmatch 03/27/21 03/27/21 03/28/21 16:14 21:21 00:16 WBC RBC Hgb Hct MCV MCH MCHC RDW Plt Count Seg Neuts % (Manual) Lymphocytes % (Manual) Monocytes % (Manual) Nucleated RBC % Seg Neutrophils # Man Lymphocytes # (Manual) Monocytes # (Manual) INR APTT D-Dimer ABG pH POC ABG pCO2 POC ABG pO2 ABG pO2 ABG HCO3 ABG O2 Saturation ABG Base Excess ABG Hemoglobin ABG Oxyhemoglobin ABG Potassium ABG Chloride ABG Glucose Oxyhemoglobin Potassium Chloride Carbon Dioxide BUN Creatinine Glucose POC Glucose 241 H 179 H 160 H Lactic Acid Calcium Phosphorus Magnesium AST ALT Alkaline Phosphatase Ammonia Troponin T Total Protein Albumin Triglycerides HDL Cholesterol Lipase Arterial Blood Glucose Arterial Blood Ionized Calcium Acetaminophen Crossmatch 03/28/21 03/28/21 03/28/21 04:00 04:00 05:41 WBC 27.1 H RBC 3.46 L Hgb 7.1 L Hct 26.1 L MCV 76 L MCH 20 L MCHC 27 L RDW 24.0 H Plt Count 541 H Seg Neuts % (Manual) Lymphocytes % (Manual) Monocytes % (Manual) Nucleated RBC % Seg Neutrophils # Man Lymphocytes # (Manual) Monocytes # (Manual) INR APTT D-Dimer ABG pH POC ABG pCO2 POC ABG pO2 ABG pO2 ABG HCO3 ABG O2 Saturation ABG Base Excess ABG Hemoglobin ABG Oxyhemoglobin ABG Potassium ABG Chloride ABG Glucose Oxyhemoglobin Potassium Chloride 95.7 L Carbon Dioxide 36 H BUN 23 H Creatinine 0.4 L Glucose 295 H POC Glucose 279 H Lactic Acid Calcium Phosphorus Magnesium AST ALT Alkaline Phosphatase Ammonia Troponin T Total Protein Albumin Triglycerides HDL Cholesterol Lipase Arterial Blood Glucose Arterial Blood Ionized Calcium Acetaminophen Crossmatch 03/28/21 03/28/21 03/28/21 11:50 16:45 23:15 WBC RBC Hgb Hct MCV MCH MCHC RDW Plt Count Seg Neuts % (Manual) Lymphocytes % (Manual) Monocytes % (Manual) Nucleated RBC % Seg Neutrophils # Man Lymphocytes # (Manual) Monocytes # (Manual) INR APTT D-Dimer ABG pH POC ABG pCO2 POC ABG pO2 ABG pO2 ABG HCO3 ABG O2 Saturation ABG Base Excess ABG Hemoglobin ABG Oxyhemoglobin ABG Potassium ABG Chloride ABG Glucose Oxyhemoglobin Potassium Chloride Carbon Dioxide BUN Creatinine Glucose POC Glucose 233 H 240 H 189 H Lactic Acid Calcium Phosphorus Magnesium AST ALT Alkaline Phosphatase Ammonia Troponin T Total Protein Albumin Triglycerides HDL Cholesterol Lipase Arterial Blood Glucose Arterial Blood Ionized Calcium Acetaminophen Crossmatch 03/29/21 03/29/21 03/29/21 04:35 04:35 05:05 WBC 29.6 H RBC 3.18 L Hgb 6.7 L Hct 24.2 L MCV 76 L MCH 21 L MCHC 28 L RDW 24.0 H Plt Count 678 H Seg Neuts % (Manual) Lymphocytes % (Manual) Monocytes % (Manual) Nucleated RBC % Seg Neutrophils # Man Lymphocytes # (Manual) Monocytes # (Manual) INR APTT D-Dimer ABG pH POC ABG pCO2 POC ABG pO2 ABG pO2 ABG HCO3 ABG O2 Saturation ABG Base Excess ABG Hemoglobin ABG Oxyhemoglobin ABG Potassium ABG Chloride ABG Glucose Oxyhemoglobin Potassium Chloride 95.4 L Carbon Dioxide 37 H BUN 22 H Creatinine 0.4 L Glucose 194 H POC Glucose 195 H Lactic Acid Calcium Phosphorus Magnesium AST ALT Alkaline Phosphatase Ammonia Troponin T Total Protein Albumin Triglycerides HDL Cholesterol Lipase Arterial Blood Glucose Arterial Blood Ionized Calcium Acetaminophen Crossmatch 03/29/21 03/29/21 03/29/21 09:24 10:58 17:14 WBC RBC Hgb Hct MCV MCH MCHC RDW Plt Count Seg Neuts % (Manual) Lymphocytes % (Manual) Monocytes % (Manual) Nucleated RBC % Seg Neutrophils # Man Lymphocytes # (Manual) Monocytes # (Manual) INR APTT D-Dimer ABG pH POC ABG pCO2 POC ABG pO2 ABG pO2 ABG HCO3 ABG O2 Saturation ABG Base Excess ABG Hemoglobin ABG Oxyhemoglobin ABG Potassium ABG Chloride ABG Glucose Oxyhemoglobin Potassium Chloride Carbon Dioxide BUN Creatinine Glucose POC Glucose 106 H 117 H Lactic Acid Calcium Phosphorus Magnesium AST ALT Alkaline Phosphatase Ammonia Troponin T Total Protein Albumin Triglycerides HDL Cholesterol Lipase Arterial Blood Glucose Arterial Blood Ionized Calcium Acetaminophen Crossmatch See Detail 03/29/21 03/29/21 03/30/21 19:32 23:36 01:49 WBC 25.1 H RBC Hgb 9.3 L Hct MCV 77 L MCH 23 L MCHC RDW 22.7 H Plt Count 599 H Seg Neuts % (Manual) Lymphocytes % (Manual) Monocytes % (Manual) Nucleated RBC % Seg Neutrophils # Man Lymphocytes # (Manual) Monocytes # (Manual) INR APTT D-Dimer ABG pH POC ABG pCO2 POC ABG pO2 ABG pO2 ABG HCO3 ABG O2 Saturation ABG Base Excess ABG Hemoglobin ABG Oxyhemoglobin ABG Potassium ABG Chloride ABG Glucose Oxyhemoglobin Potassium Chloride Carbon Dioxide BUN Creatinine Glucose POC Glucose 57 L 55 L Lactic Acid Calcium Phosphorus Magnesium AST ALT Alkaline Phosphatase Ammonia Troponin T Total Protein Albumin Triglycerides HDL Cholesterol Lipase Arterial Blood Glucose Arterial Blood Ionized Calcium Acetaminophen Crossmatch 03/30/21 03/30/21 03/30/21 04:00 15:52 18:07 WBC RBC Hgb Hct MCV MCH MCHC RDW Plt Count Seg Neuts % (Manual) Lymphocytes % (Manual) Monocytes % (Manual) Nucleated RBC % Seg Neutrophils # Man Lymphocytes # (Manual) Monocytes # (Manual) INR APTT D-Dimer ABG pH POC ABG pCO2 POC ABG pO2 ABG pO2 ABG HCO3 ABG O2 Saturation ABG Base Excess ABG Hemoglobin ABG Oxyhemoglobin ABG Potassium ABG Chloride ABG Glucose Oxyhemoglobin Potassium Chloride 93.4 L Carbon Dioxide 34 H BUN 18 H Creatinine 0.3 L Glucose 114 H POC Glucose 112 H 130 H Lactic Acid Calcium Phosphorus 4.70 H Magnesium AST ALT Alkaline Phosphatase Ammonia Troponin T Total Protein Albumin Triglycerides HDL Cholesterol Lipase Arterial Blood Glucose Arterial Blood Ionized Calcium Acetaminophen Crossmatch 03/30/21 03/31/21 03/31/21 23:26 04:41 04:41 WBC 30.8 H RBC Hgb 9.3 L Hct MCV MCH 23 L MCHC 28 L RDW 22.3 H Plt Count 642 H Seg Neuts % (Manual) Lymphocytes % (Manual) Monocytes % (Manual) Nucleated RBC % Seg Neutrophils # Man Lymphocytes # (Manual) Monocytes # (Manual) INR APTT D-Dimer ABG pH POC ABG pCO2 POC ABG pO2 ABG pO2 ABG HCO3 ABG O2 Saturation ABG Base Excess ABG Hemoglobin ABG Oxyhemoglobin ABG Potassium ABG Chloride ABG Glucose Oxyhemoglobin Potassium Chloride 96.3 L Carbon Dioxide 34 H BUN Creatinine 0.3 L Glucose POC Glucose 124 H Lactic Acid Calcium Phosphorus Magnesium AST ALT Alkaline Phosphatase Ammonia Troponin T Total Protein Albumin Triglycerides HDL Cholesterol Lipase Arterial Blood Glucose Arterial Blood Ionized Calcium Acetaminophen Crossmatch 03/31/21 04/01/21 04/01/21 17:45 00:17 04:27 WBC 20.2 H RBC Hgb 9.1 L Hct MCV MCH 23 L MCHC 28 L RDW 22.3 H Plt Count 454 H Seg Neuts % (Manual) Lymphocytes % (Manual) Monocytes % (Manual) Nucleated RBC % Seg Neutrophils # Man Lymphocytes # (Manual) Monocytes # (Manual) INR APTT D-Dimer ABG pH POC ABG pCO2 POC ABG pO2 ABG pO2 ABG HCO3 ABG O2 Saturation ABG Base Excess ABG Hemoglobin ABG Oxyhemoglobin ABG Potassium ABG Chloride ABG Glucose Oxyhemoglobin Potassium Chloride Carbon Dioxide BUN Creatinine Glucose POC Glucose 130 H 108 H Lactic Acid Calcium Phosphorus Magnesium AST ALT Alkaline Phosphatase Ammonia Troponin T Total Protein Albumin Triglycerides HDL Cholesterol Lipase Arterial Blood Glucose Arterial Blood Ionized Calcium Acetaminophen Crossmatch 04/01/21 04:27 WBC RBC Hgb Hct MCV MCH MCHC RDW Plt Count Seg Neuts % (Manual) Lymphocytes % (Manual) Monocytes % (Manual) Nucleated RBC % Seg Neutrophils # Man Lymphocytes # (Manual) Monocytes # (Manual) INR APTT D-Dimer ABG pH POC ABG pCO2 POC ABG pO2 ABG pO2 ABG HCO3 ABG O2 Saturation ABG Base Excess ABG Hemoglobin ABG Oxyhemoglobin ABG Potassium ABG Chloride ABG Glucose Oxyhemoglobin Potassium Chloride Carbon Dioxide 31 H BUN Creatinine 0.4 L Glucose POC Glucose Lactic Acid Calcium Phosphorus Magnesium AST ALT Alkaline Phosphatase Ammonia Troponin T Total Protein Albumin Triglycerides HDL Cholesterol Lipase Arterial Blood Glucose Arterial Blood Ionized Calcium Acetaminophen Crossmatch
[2021-04-01] MEDS: busPIRone 5 MG TAB PO SCH ×2 (10:55→22:46)
[2021-04-01] MEDS: DOCUSATE SODIUM 100 MG/10 ML ORAL LIQD PO SCH ×2 (10:56→22:46)
[2021-04-01] MEDS: METOPROLOL TARTRATE 25 MG TAB PO SCH ×2 (10:56→22:46)
[2021-04-01] MEDS: SENNOSIDES/DOCUSATE SODIUM 8.6/50 MG TAB FEEDTUBE SCH ×2 (10:56→22:46)
[2021-04-01] MEDS: FAMOTIDINE 20 MG TAB FEEDTUBE SCH ×2 (10:56→22:46)
[2021-04-01] MEDS: LORazepam 2 MG/ML VIAL IV PRN ×2 (11:03→16:04)
--- NOTE | 2021-04-01 12:09 | Progress Note ---
Assessment and Plan Assessment and plan: This is a 50-year-old female with COPD with oxygen dependence, DM, severe anxiety, GERD, HLD, HTN and PAGE admitted with SVT and hypertensive urgency. Hospital Course to Date: This is a 60-year-old female with COPD with oxygen dependence currently with palliative care, DM, former nicotine abuse, severe anxiety, GERD, HLD, HTN and PAGE presented to emergency department on 03/17 via EMS with complaints of shortness of breath. On arrival of EMS patient was found to be in SVT with a heart rate of about 200 and blood pressure to be quite elevated with systolic in 200s. She was given 6 mg of adenosine without significant changes subsequently given 12 mg of adenosine with improvement of her heart rate. Upon arrival to the emergency department patient was found to be in atrial fibrillation with RVR and dyspneic. Work-up in the emergency department revealed leukocytosis, lactic acidosis, transaminitis, hypoalbuminemia and a troponin leak. CXR, CT a chest and CT head were unremarkable. Patient was admitted to the hospitalist service with consults to [facility] and cardiology for further work-up of acute on chronic respiratory failure, SVT and hypertensive urgency. 03/18/2021: Patient is intubated and on vent support, Patient is in sinus tachycardia 03/19: COVID-19 PCR negative, remains on ventilatory support, Versed drip changed to propofol. No acute events reported overnight. Tracheal aspirate with few gram-positive Cocci. This afternoon, patient went in to the 150s, giving 500 mL NS bolus and fentanyl push to see if it pain related. If persists then will order prn Ativan per Dr. Gage recommendation. 03/20: Restarted on home metoprolol and abdominal ultrasound showed right hydronephrosis. Abd US shows right hydroureteronephrosis and will obtain a de dicated renal US. She seems to more comfortable on propofol and fentanyl 03/21: Patient's FiO2 had to be decreased overnight due to hypoxia and tachycardia. Hyperkalemia noted and given Kayexalate. 1 unit PRBC for hemoglobin 6.8. [facility] plans to extubate tomorrow. Increase in Lantus. 03/22: Transfuse one unit prbc, failed SBT in the AM d/t hypertension. [facility] extubated the patient but she was reintubated within [address] head ordered and pending read. Given kionex x2 for hyperkalemia 03/23: This morning patient was only on Precedex drip and overnight she had agitation, hypertension and tachycardia. RN instructed to place fentanyl drip. Increase in Lantus for better glucose control. Will remove Wallis today. 03/24/2021: no acute events reported overnight. Patient remains intubated and is currently on fentanyl and Precedex. Increase in Lantus due to hyperglycemia. 03/25: no acute events overnight. increase in lantus and decreased steroids today. 03/26: Remains on the vent. Failed SAT/SBT trials this am due to increased HR, in the 150s. Hyperkalemic this am s/p X1 dose of kayaxalate, repeat BMP ordered. Fever overnight with leukocytosis, patient is on steroids, will panculture for now, hold on IV ABx for now 03/27: Patient failed SBT trial this am, HR increased in the 150s, most likely due to her severe anxiety. Patient is back on low dose sedation, continue PRN Xanax. Hyperkalemia still slightly high, X1dose of kayaxalate ordered, repeat lab in the am. 03/28: LIDIA overnight. Remains on precedex and fentanyl gtt, with PRN Xanax for anxiety. Plan for possible SBT again today, per CCM if still not tolerating SBT patient will eventually need a trach 03/29: Patient self-extubated this am, tolerating Bipap SPO2 above 92%. Patient still appears anxious, d/w CCM plan to keep patient the Bipap throughout the day. Will also restart preced gtt for anxiety. Keep patient NPO for now while on continuous Bipap. Low H&H noted, order placed for 1unit of PRBCs, repeat labs or dered. 03/30: Stable on 50% venti mask this am, still with peroids of agitation and increased anxiety remains on precedex gtt. Plan for possible HHFL NC today, continue Bipap at night. Hypoglycemic overnight now on D10w. IVF switched to D51/2NS, nursing to do a bedside swallow. Will D/C IVF if patient is able to tolerate PO. 03/31: With increased agitation/anxiety overnight. HR jumped in the 200s, s/p IV loprepressor. HR improved this in the 120s, remains on precedx gtt. Will attempt to wean to HHFL today. Continue supportive measures 04/01: LIDIA overnight. On Bipap this am. Tolerated HHFL yesterday. Continue HHFL during and Bipap at night. plan for bedside swallow today, if pass okay to start PO intake. Assessment and Plan #Neuro:Severe Anxiety #H/o Anxiety and depression -Remains on precedex gtt -Continue PRN ativan and Haldol for agitation/anxiety -Tritrate a RASS goal 0 to -1 -PO Buspar and Xanax are on hold for now, patient is NPO -Cymbalta on hold, can not be crush -Avoid delirium -Avoid Analgesic/opiate at this time -Maintenance of sleep-wake cycle #Cardio:A. fib with RVR #SVT # Hypertensive emergency-resolved -Presented with high BP and SVT, HR in 200 -s/p X2 doses of adenosine in the ED -Echocardiogram 10/2020 showed EF of 50 to 55% -Short periods of SVT and c/o CP this am post self-extubation, self resolved o nce patient calmed down -EKG with ST, Troponin are neg -Cardiology consulted, appreciate recommendations -Continue metoprolol BID -Continue AC- Heparin SubQ -Continue blood pressure monitor per protocol -PRN Hydralazine added for SBP greater than 160 #Resp:Acute on chronic respiratory failure #H/o COPD and PAGE -Intubated on 03/17 , extubated and reintubated on 03/22 -Self-extubated this am 03/29 -On Bipap SPO2 at 100% -CCM consulted, appreciate recommendations -Plan to switch to HHFL -Continue Bipap at night -Continue IV Steroids and Nebs per CCM -Continue to wean steroids -VAP bundle addressed -Aspiration precaution HOB above 30 -PRN ABG and CXR per CCm -Continue SPO2 monitoring for SPO2 goal above 92% #GI: Transaminitis-improving -Presented with elevated LFTs -LFTs downtrending, continue to trend LFts -Plan for bedside swallow today, if pass okay to start diet -NTR on consulted -Continue PPI -Continue BR #:Hyperkalemia-resolved -K normalized, renal function remains stable -Continue to Trend BMP -Strict intake and output -Avoid nephrotoxic medications; Renally dose medications -Monitor and replace electrolytes as needed #Heme:Microcytic anemia -s/p 2unit PRBCs -No s/s of any active bleeding -Repeat H&H is stable -Continue to Trend CBC -Transfuse for hbg <7 -SCDs to BLE while in bed -Continue AC- Heparin SubQ #ID:Leukocytosis #Possible Bilateral Pneumonia -Imagings with bibasilar opacities and Pleural effusion -12/5 tracheal aspirate with few gram-positive cocci -Patient completed IV Abx course -Afebrile -WBCs is trending down, Patient still on steroids -Continue to wean steroids -Repeat CXR is unchanged this am -Blood cultures and sputum culture NGTD -Hold on IV ABx for now -Trend WBC and fever curve -Continue to F/U on B.cult -Daily CBC monitor -Consider ID consult if febrile or/and if leukocytosis persist #Endo:Type 2 DM #Hyperglycemia-improved -Hypoglycemic BG in the 60s this am -Patient has been NPO while on cont. Bipap -Now on D51/2NS gtt for now, D/C if patient can tolerate PO -Continue SSI q6hrs -Lantus on hold -Avoid hypoglycemia The high probability of a clinically significant, sudden or life threatening deterioration of the [pulm/ID/Endo] system(s) required my full and direct attention, intervention and personal management. The aggregate critical care time was [40] minutes. This time is in addition to time spent performing reported procedures but includes the following: [x] Data Review and interpretation [x] Patient assessment and monitoring of vital signs [x] Documentation [x] Medication orders and management Disposition Plan: ICU Total Time Spent with Patient (Minutes): 40 History Interval history: Patient seen and examined at the bedside. Remains AAO, on Bipap SPO2 at 100%. Patient tolerated HHFL for most of the day yesterday. Remains on precedex gtt and PRN Xanax and haldol ordered. LIDIA overnight Hospitalist Physical - Constitutional Vitals: Temp Pulse Resp BP Pulse Ox 98.5 F 106 H 20 144/78 96 04/01/21 08:00 04/01/21 10:30 04/01/21 10:30 04/01/21 10:30 04/01/21 11:56 General appearance: Present: no acute distress, obese - EENT Eyes: Present: PERRL ENT: hearing intact - Neck Neck: Present: normal ROM - Respiratory Respiratory effort: normal Respiratory: bilateral: diminished - Cardiovascular Rhythm: regular Heart Sounds: Present: S1 & S2 - Extremities Extremities: no ischemia, pulses intact, pulses symmetrical Extremity abnormal: edema - Peripheral Assessment Generalized Edema Type: Non-pitting Edema Degree: 1+ Capillary Refill: < 3 seconds Skin Temperature: Warm Peripheral Pulses: within normal limits - Abdominal General gastrointestinal: soft, non-tender, normal bowel sounds - Integumentary Integumentary: Present: warm, dry - Psychiatric Psychiatric: cooperative, depressed - Neurologic Neurologic: moves all extremities - Allied Health Allied health notes reviewed: nursing HEART Score - HEART Score Troponin: Troponin T < 0.010 ng/mL (0.00-0.029) 03/29/21 09:24 Results - Labs CBC & Chem 7: 04/01/21 04:27 04/01/21 04:27 Labs: Laboratory Last Values WBC 20.2 K/mm3 (4.5-11.0) H 04/01/21 04:27 RBC 4.02 M/mm3 (3.65-5.03) 04/01/21 04:27 Hgb 9.1 gm/dl (10.1-14.3) L 04/01/21 04:27 Hct 32.0 % (30.3-42.9) 04/01/21 04:27 MCV 80 fl (79-97) 04/01/21 04:27 MCH 23 pg (28-32) L 04/01/21 04:27 MCHC 28 % (30-34) L 04/01/21 04:27 RDW 22.3 % (13.2-15.2) H 04/01/21 04:27 Plt Count 454 K/mm3 (140-440) H 04/01/21 04:27 Lewis % (Auto) Director Of Occupational Health 03/24/21 08:03 Add Manual Diff Complete 03/26/21 05:35 Total Counted 100 03/26/21 05:35 Seg Neuts % (Manual) 72.0 % (40.0-70.0) H 03/26/21 05:35 Band Neutrophils % 5.0 % 03/26/21 05:35 Lymphocytes % (Manual) 6.0 % (13.4-35.0) L 03/26/21 05:35 Reactive Lymphs % (Man) 5.0 % 03/19/21 04:59 Monocytes % (Manual) 8.0 % (0.0-7.3) H 03/26/21 05:35 Metamyelocytes % 3.0 % 03/26/21 05:35 Myelocytes % 5.0 % 03/26/21 05:35 Promyelocytes % 1.0 % 03/26/21 05:35 Nucleated RBC % Not Reportable 03/26/21 05:35 Seg Neutrophils # Man 14.4 K/mm3 (1.8-7.7) H 03/26/21 05:35 Band Neutrophils # 1.0 K/mm3 03/26/21 05:35 Lymphocytes # (Manual) 1.2 K/mm3 (1.2-5.4) 03/26/21 05:35 Abs React Lymphs (Man) 0.0 K/mm3 03/26/21 05:35 Monocytes # (Manual) 1.6 K/mm3 (0.0-0.8) H 03/26/21 05:35 Eosinophils # (Manual) 0.0 K/mm3 (0.0-0.4) 03/26/21 05:35 Basophils # (Manual) 0.0 K/mm3 (0.0-0.1) 03/26/21 05:35 Metamyelocytes # 0.6 K/mm3 03/26/21 05:35 Myelocytes # 1.0 K/mm3 03/26/21 05:35 Promyelocytes # 0.2 K/mm3 03/26/21 05:35 Blast Cells # 0.0 K/mm3 03/26/21 05:35 WBC Morphology Not Reportable 03/26/21 05:35 Hypersegmented Neuts Not Reportable 03/26/21 05:35 Hyposegmented Neuts Not Reportable 03/26/21 05:35 Hypogranular Neuts Not Reportable 03/26/21 05:35 Smudge Cells Not Reportable 03/26/21 05:35 Toxic Granulation Not Reportable 03/26/21 05:35 Toxic Vacuolation Not Reportable 03/26/21 05:35 Dohle Bodies Not Reportable 03/26/21 05:35 Pelger-Huet Anomaly Not Reportable 03/26/21 05:35 Florentino Rods Not Reportable 03/26/21 05:35 Platelet Estimate Consistent w auto 03/26/21 05:35 Clumped Platelets Not Reportable 03/26/21 05:35 Plt Clumps, EDTA Not Reportable 03/26/21 05:35 Large Platelets 1+ 03/26/21 05:35 Giant Platelets Not Reportable 03/26/21 05:35 Platelet Satelliting Not Reportable 03/26/21 05:35 Plt Morphology Comment Not Reportable 03/26/21 05:35 RBC Morphology Not Reportable 03/26/21 05:35 Dimorphic RBCs Not Reportable 03/26/21 05:35 Polychromasia 1+ 03/26/21 05:35 Hypochromasia 2+ 03/26/21 05:35 Poikilocytosis 1+ 03/26/21 05:35 Anisocytosis 2+ 03/26/21 05:35 Microcytosis Not Reportable 03/26/21 05:35 Macrocytosis Not Reportable 03/26/21 05:35 Spherocytes Not Reportable 03/26/21 05:35 Pappenheimer Bodies Not Reportable 03/26/21 05:35 Sickle Cells Not Reportable 03/26/21 05:35 Target Cells 1+ 03/26/21 05:35 Tear Drop Cells 1+ 03/26/21 05:35 Ovalocytes Not Reportable 03/26/21 05:35 Stomatocytes 1+ 03/26/21 05:35 Helmet Cells Not Reportable 03/26/21 05:35 [place] Bodies Not Reportable 03/26/21 05:35 [place] Rings Not Reportable 03/26/21 05:35 Marcelo Cells Not Reportable 03/26/21 05:35 Bite Cells Not Reportable 03/26/21 05:35 Crenated Cell Not Reportable 03/26/21 05:35 Elliptocytes Not Reportable 03/26/21 05:35 Acanthocytes (Spur) Not Reportable 03/26/21 05:35 Rouleaux Not Reportable 03/26/21 05:35 Hemoglobin C Crystals Not Reportable 03/26/21 05:35 Schistocytes 1+ 03/26/21 05:35 Malaria parasites Not Reportable 03/26/21 05:35 Maykel Bodies Not Reportable 03/26/21 05:35 Hem Pathologist Commnt No 03/26/21 05:35 PT 12.6 Sec. (12.2-14.9) 03/17/21 17:37 INR 0.85 (0.87-1.13) L 03/17/21 17:37 APTT 23.3 Sec. (24.2-36.6) L 03/17/21 17:37 D-Dimer 947.92 ng/mlDDU (0-234) H 03/17/21 17:37 ABG pH 7.477 (7.320-7.450) H 03/24/21 08:57 POC ABG pCO2 56.9 mmHg (32.0-48.0) H 03/24/21 08:57 ABG pCO2 72.7 mm Hg 03/23/21 04:50 POC ABG pO2 100.6 mmHg (83-108) 03/24/21 08:57 ABG pO2 70.7 mm Hg (80.0-90.0) L 03/23/21 04:50 POC ABG HCO3 41.1 03/24/21 08:57 ABG HCO3 41.7 mmol/L (20.0-26.0) H 03/23/21 04:50 ABG O2 Saturation 98.3 (0-100) 03/24/21 08:57 ABG O2 Content 7.8 (0.0-44) 03/23/21 04:50 POC ABG Base Excess 15.8 03/24/21 08:57 ABG Base Excess 15.2 mmol/L (-2.0-3.0) H 03/23/21 04:50 ABG Hemoglobin 8.0 (12.0-17.5) L 03/24/21 08:57 ABG Oxyhemoglobin 96.8 (94-98) 03/24/21 08:57 ABG Carboxyhemoglobin 1.7 % (0.0-5.0) 03/23/21 04:50 ABG Methemoglobin 0.3 (0.0-1.5) 03/24/21 08:57 ABG Sodium 139.1 mmol/L (136.0-145.0) 03/24/21 08:57 ABG Potassium 3.9 mmol/L (3.40-4.50) 03/24/21 08:57 ABG Chloride 93.0 mmol/L (98-107) L 03/24/21 08:57 ABG Glucose 328 mg/dL (65-95) H 03/24/21 08:57 Oxyhemoglobin 96.9 % (95.0-99.0) 03/23/21 04:50 Carboxyhemoglobin 1.2 (0.5-1.5) 03/24/21 08:57 FiO2 40 % 03/23/21 04:50 FiO2 % 40 03/24/21 08:57 Sodium 141 mmol/L (137-145) 04/01/21 04:27 Potassium 4.0 mmol/L (3.6-5.0) 04/01/21 04:27 Chloride 98.6 mmol/L (98-107) 04/01/21 04:27 Carbon Dioxide 31 mmol/L (22-30) H 04/01/21 04:27 Anion Gap 15 mmol/L 04/01/21 04:27 BUN 13 mg/dL (7-17) 04/01/21 04:27 Creatinine 0.4 mg/dL (0.6-1.2) L 04/01/21 04:27 Estimated GFR > 60 ml/min 04/01/21 04:27 BUN/Creatinine Ratio 33 % 04/01/21 04:27 Glucose 74 mg/dL (65-100) 04/01/21 04:27 POC Glucose 112 mg/dL (70-105) H 04/01/21 11:56 Lactic Acid 4.00 mmol/L (0.7-2.0) H* 03/17/21 23:36 Calcium 9.1 mg/dL (8.4-10.2) 04/01/21 04:27 Phosphorus 4.50 mg/dL (2.5-4.5) 03/31/21 04:41 Magnesium 2.20 mg/dL (1.7-2.3) 03/31/21 04:41 Total Bilirubin 0.30 mg/dL (0.1-1.2) 03/26/21 05:35 Direct Bilirubin < 0.2 mg/dL (0-0.2) 03/19/21 12:00 Indirect Bilirubin 0.1 mg/dL 03/19/21 12:00 AST 35 units/L (5-40) 03/26/21 05:35 ALT 169 units/L (7-56) H 03/26/21 05:35 Alkaline Phosphatase 138 units/L (35-129) H 03/26/21 05:35 Ammonia 26.0 umol/L (25-60) 03/19/21 12:00 Total Creatine Kinase 123 units/L (30-135) 03/29/21 09:24 CK-MB (CK-2) 1.5 ng/mL (0.0-4.0) 03/29/21 09:24 CK-MB (CK-2) Rel Index 1.2 (0-4) 03/29/21 09:24 Troponin T < 0.010 ng/mL (0.00-0.029) 03/29/21 09:24 NT-Pro-B Natriuret Pep 576.0 pg/mL (0-900) 03/17/21 17:36 Total Protein 5.5 g/dL (6.3-8.2) L 03/26/21 05:35 Albumin 3.2 g/dL (3.9-5) L 03/26/21 05:35 Albumin/Globulin Ratio 1.4 % 03/26/21 05:35 Triglycerides 189 mg/dL (2-149) H 03/22/21 04:39 Cholesterol 191 mg/dL (50-199) 03/17/21 17:36 LDL Cholesterol Direct 80 mg/dL (50-130) 03/17/21 17:36 HDL Cholesterol 73 mg/dL (40-59) H 03/17/21 17:36 Cholesterol/HDL Ratio 2.61 % 03/17/21 17:36 Amylase 78 units/L (27-131) 03/19/21 Unknown Lipase 12 units/L (13-60) L 03/19/21 Unknown TSH 3.510 mlU/mL (0.270-4.200) 03/17/21 22:57 Arterial Blood Glucose 328 mg/dL (65-95) H 03/24/21 08:57 Arterial Blood Ionized Calcium 4.5 mg/dL (4.6-5.3) L 03/24/21 08:57 Urine Color Mayuri (Yellow) 03/17/21 19:42 Urine Turbidity Slightly-cloudy (Clear) 03/17/21 19:42 Urine pH 7.0 (5.0-7.0) 03/17/21 19:42 Ur Specific [place] 1.015 (1.003-1.030) 03/17/21 19:42 Urine Protein 100 mg/dl mg/dL (Negative) 03/17/21 19:42 Urine Glucose (UA) Neg mg/dL (Negative) 03/17/21 19:42 Urine Ketones 20 mg/dL (Negative) 03/17/21 19:42 Urine Blood Sm (Negative) 03/17/21 19:42 Urine Nitrite Neg (Negative) 03/17/21 19:42 Urine Bilirubin Neg (Negative) 03/17/21 19:42 Urine Urobilinogen 2.0 mg/dL (<2.0) 03/17/21 19:42 Ur Leukocyte Esterase Neg (Negative) 03/17/21 19:42 Urine WBC (Auto) 4.0 /HPF (0.0-6.0) 03/17/21 19:42 Urine RBC (Auto) 6.0 /HPF (0.0-6.0) 03/17/21 19:42 U Epithel Cells (Auto) 5.0 /HPF (0-13.0) 03/17/21 19:42 Urine Bacteria (Auto) 1+ /HPF (Negative) 03/17/21 19:42 Urine Mucus 1+ /HPF 03/17/21 19:42 Urine Yeast (Budding) Few /HPF 03/17/21 19:42 Acetaminophen 5.0 ug/mL (10.0-30.0) L 03/18/21 23:07 Coronavirus (PCR) Negative (Negative) 03/19/21 Unknown Blood Type A POSITIVE 03/29/21 09:24 Antibody Screen Negative 03/29/21 09:24 Crossmatch See Detail 03/29/21 09:24 Microbiology: Microbiology 03/26/21 08:06 Peripheral/Venous Blood Culture - Final NO GROWTH AFTER 5 DAYS 03/26/21 08:06 Peripheral/Venous Blood Culture - Final NO GROWTH AFTER 5 DAYS Wallis/IV: Voiding Method External Female Catheter Active Medications - Current Medications Current Medications: Generic Name Dose Route Start Last Admin Trade Name Freq PRN Reason Stop Dose Admin Acetaminophen 650 mg 03/18/21 00:05 Acetaminophen 325 Mg Tab PO Q6H PRN Pain MILD(1-3)/Fever >100.5/TOVAR Albuterol 2.5 mg 03/22/21 08:00 Albuterol 2.5 Mg/3 Ml Nebu IH Q6H PRN Wheezing Alprazolam 1 mg 03/26/21 10:53 03/28/21 18:21 Alprazolam 1 Mg Tab PO 1 mg Q8H PRN Administration AGITATION Lipase/Protease/Amylase 1 each 03/19/21 18:16 Lipase 10,500/Protease 25,000/Amylase 43,750 (Units) Dr Newman FEEDTUBE PRN PRN For Clogged Feeding Tube Arformoterol Tartrate 15 mcg 03/24/21 11:00 04/01/21 07:03 Arformoterol 15 Mcg/2 Ml Nebu IH 15 mcg Q12HRT BUTCH Administration Atorvastatin Calcium 10 mg 03/19/21 22:00 03/31/21 22:53 Atorvastatin 10 Mg Tab PO Not Given QHS BUTCH Budesonide 0.5 mg 03/24/21 11:00 04/01/21 07:03 Budesonide 0.5 Mg/2 Ml Nebu IH 0.5 mg Q12HRT BUTCH Administration Buspirone HCl 5 mg 03/25/21 14:00 04/01/21 10:55 Buspirone 5 Mg Tab PO Not Given BID BUTCH Dextrose 0 ml 03/17/21 23:58 03/31/21 05:16 Dextrose 50% In Water (25gm) 50 Ml Syringe IV 10 ml Q30MIN PRN Administration Hypoglycemia Protocol Docusate Sodium 100 mg 03/23/21 10:00 04/01/21 10:56 Docusate Sodium 100 Mg/10 Ml Oral Liqd PO Not Given BID BUTCH Famotidine 20 mg 03/20/21 22:00 04/01/21 10:56 Famotidine 20 Mg Tab FEEDTUBE Not Given BID BUTCH Fentanyl 50 mcg 03/26/21 10:08 03/31/21 15:37 Fentanyl 100 Mcg/2 Ml Inj IV 50 mcg Q2H PRN Administration Pain, Moderate (4-6) Haloperidol Lactate 5 mg 03/30/21 09:52 04/01/21 08:33 Haloperidol Lactate 5 Mg/1 Ml Inj IV 5 mg Q6H PRN Administration Agitation Heparin Sodium (Porcine) 5,000 unit 03/18/21 06:00 03/31/21 22:54 Heparin 5,000 Unit/1 Ml Vial SUB-Q 5,000 unit Q8HR BUTCH Administration Hydralazine HCl 5 mg 03/29/21 10:56 Hydralazine 20 Mg/1 Ml Inj IV Q4HR PRN SBP >160 Hydrophilic Ointment 1 applic 03/17/21 17:35 Lip Therapy Vaseline TP Q2HR PRN Dry Lips Dexmedetomidine HCl 400 mcg/ 104 mls @ 4.306 mls/hr 03/21/21 13:00 04/01/21 08:00 Sodium Chloride IV Infused TITRATE [facility] Titration Protocol 0.2 MCG/KG/HR Dextrose/Sodium Chloride 1,000 mls @ 75 mls/hr 03/30/21 08:00 04/01/21 02:57 D5/0.45ns IV 75 mls/hr DIRECT BUTCH Administration Insulin Human Lispro 0 unit 03/19/21 12:00 04/01/21 00:37 Insulin Lispro 100 Unit/Ml SUB-Q Not Given Q6HR [facility] Protocol Lorazepam 0.5 mg 03/30/21 09:53 04/01/21 11:03 Lorazepam 2 Mg/Ml Vial IV 0.5 mg Q4H PRN Administration Anxiety Magnesium Hydroxide 30 ml 03/18/21 00:05 03/24/21 09:36 Magnesium Hydroxide (Mom) Oral Liqd Udc PO 30 ml Q4H PRN Administration Constipation Methylprednisolone Sodium Succinate 20 mg 03/31/21 10:00 04/01/21 09:27 Methylprednisolone Sod Succinate 40 Mg/1 Ml Inj IV 20 mg Q24HR BUTCH Administration Metoprolol Tartrate 25 mg 03/20/21 22:00 04/01/21 10:56 Metoprolol Tartrate 25 Mg Tab PO Not Given BID [facility] Morphine Sulfate 2 mg 03/18/21 00:05 Morphine 2 Mg/1 Ml Inj IV Q4H PRN Pain, Moderate (4-6) Morphine Sulfate 4 mg 03/18/21 00:05 04/01/21 09:27 Morphine 4 Mg/1 Ml Inj IV 4 mg Q4H PRN Administration Pain , Severe (7-10) Multi-Ingred Cream/Lotion/Oil/Oint 1 applic 03/17/21 17:35 Mineral Oil/Petrolatum, White Ophth Oint 3.5 Gm OU Q4HR PRN Dry Eye(s) Senna/Docusate Sodium 1 tab 03/17/21 22:00 04/01/21 10:56 Sennosides/Docusate Sodium 8.6/50 Mg Tab FEEDTUBE Not Given BID BUTCH Simple Syrup 15 ml 03/19/21 18:16 Simple Syrup 15 Ml FEEDTUBE PRN PRN Hypoglycemia Simple Syrup 30 ml 03/19/21 18:16 Simple Syrup 15 Ml FEEDTUBE PRN PRN Hypoglycemia Sodium Bicarbonate 325 mg 03/19/21 18:16 Sodium Bicarbonate 325 Mg Tab FEEDTUBE PRN PRN For Clogged Feeding Tube Sodium Chloride 10 ml 03/18/21 10:00 04/01/21 09:28 Sodium Chloride 0.9% 10 Ml Flush Syringe IV 10 ml BID BUTCH Administration Sodium Chloride 10 ml 03/17/21 23:58 03/22/21 23:20 Sodium Chloride 0.9% 10 Ml Flush Syringe IV 10 ml PRN PRN Administration LINE FLUSH Nutrition/Malnutrition Assess - Dietary Evaluation Nutrition/Malnutrition Findings: Nutrition Notes Start: 03/18/21 09:46 Freq: Status: Active Protocol: Document 03/30/21 13:05 SHELBI (Rec: 03/30/21 13:17 [facility] [id number]) Nutrition Notes Initial or Follow up Reassessment Current Diagnosis COPD,Diabetes,Hypertension, Respiratory Failure, Hyperlipidemia Other Pertinent Diagnosis SVT, Severe anxiety Current Diet TF - Promote at 70ml/hr Labs/Tests Phos 4.7 BG since last assessment: 291, 311, 348, 289, 197, 310, 295, 194 Pertinent Medications Lantus, Solumedrol, Colace, D5 1/2NS at 75ml/hr Height 5 ft 6 in Weight 82.8 kg [place] Body Weight (kg) 59.09 BMI 29.5 Weight Status Overweight Subjective/Other Information Pt self-extubated yesterday; placed on continuous BiPap support. TF off at time of visit (12:24). Burn Absent Trauma Absent #1 Nutrition Diagnosis Inadequate oral intake Diagnosis Progress(for reassessment Continues documentation) Is patient on ventilator? No Is Patient Ambulatory and/or Out of Bed No REE-(Oakley-St. Jeor-confined to bed) [phone] [facility]culation [facility] Additional Notes Pro needs 1.2-2g/k-166g/ day Fluid needs 1ml/kcal Nutrition Intervention Nutrition Support: Change TF formula to Vital AF 1.2 at 55ml/hr with 85ml water flush q4h. Kcal 1,584 Protein (gm) 99 Carbohydrates (gm) 146 Fat (gm) 71 Fluid (mL) 1,071 Fiber (gm) 7 Goal #1 Resume TF to meet nutrient needs Follow-Up By: 04/02/21 Additional Comments F/U: TF re-start, TF formula change/tolerance, resp status, BG labs
[2021-04-01] MEDS: HEPARIN 5,000 UNIT/1 ML VIAL SUB-Q SCH ×3 (15:00→22:45)
[2021-04-02] MEDS: INSULIN LISPRO 100 UNIT/ML SUB-Q SCH ×3 (00:30→13:16)
[2021-04-02] MEDS: fentaNYL 100 MCG/2 ML INJ IV PRN (02:03)
[2021-04-02] MEDS: D5W/0.45% NACL 1,000 ML IV SCH ×2 (03:43→18:18)
[2021-04-02 05:43] LABS: Mean Corpuscular HGB Conc 29 % (30-34); Mean Corpuscular Volume 81 fl (79-97); Platelet Count 521 K/mm3 (140-440); Red Blood Count 3.74 M/mm3 (3.65-5.03)
[2021-04-02 05:54] LABS: Blood Urea Nitrogen 13 mg/dL (7-17); Calcium 8.7 mg/dL (8.4-10.2); Hemolysis Index 21
[2021-04-02 05:55] LABS: BUN/Creatinine Ratio 33
[2021-04-02 06:49] LABS: Hematocrit 30.1 % (30.3-42.9); Hemoglobin 8.7 gm/dl (10.1-14.3); Red Cell Distribution Width 22.4 % (13.2-15.2)
[2021-04-02] MEDS: HEPARIN 5,000 UNIT/1 ML VIAL SUB-Q SCH ×3 (09:50→22:10)
[2021-04-02] MEDS: METOPROLOL TARTRATE 25 MG TAB PO SCH ×2 (12:00→21:54)
[2021-04-02] MEDS: methylPREDNISolone Sod Succinate 40 MG/1 ML INJ IV SCH (12:35)
--- NOTE | 2021-04-02 12:53 | Progress Note ---
Assessment and Plan - Patient Problems (1) Respiratory failure Current Visit: Yes Status: Acute Plan to address problem: Patient with long history of severe, oxygen dependent COPD, presented with respiratory failure due to COPD exacerbation. Stable sinus rhythm in the CCU. Continue supportive management and current treatment of COPD exacerbation. Subjective Date of service: 04/02/21 Principal diagnosis: Atrial fibrillation with RVR, respiratory failure Interval history: Patient is comfortable, no new cardiac complaints. 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 Objective Vital Signs Temp Pulse Pulse Pulse Resp Resp BP 04/02/21 11:31 104 H 32 H 117/76 04/02/21 11:01 94 H 31 H 136/73 04/02/21 10:31 94 H 17 102/55 04/02/21 10:01 61 15 102/55 04/02/21 09:31 61 15 97/64 04/02/21 09:00 61 13 94/60 04/02/21 08:30 70 23 91/67 04/02/21 08:00 97.9 F 66 65 17 87/58 04/02/21 07:42 63 17 89/56 04/02/21 07:31 68 17 89/56 04/02/21 07:01 80 12 88/59 04/02/21 06:31 62 16 65/38 04/02/21 06:01 81 23 147/84 04/02/21 05:31 65 18 93/60 04/02/21 05:01 69 17 90/56 04/02/21 04:30 79 18 103/68 04/02/21 04:18 68 16 110/47 04/02/21 04:01 73 15 110/47 04/02/21 04:00 97.8 F 72 72 16 04/02/21 03:31 74 14 91/59 04/02/21 03:00 79 17 103/67 04/02/21 02:30 79 15 100/57 04/02/21 02:01 77 22 87/65 04/02/21 01:30 74 20 90/57 04/02/21 01:00 74 16 91/56 04/02/21 00:30 76 14 89/54 04/02/21 00:01 96 H 16 100/59 04/02/21 00:00 99 H 99 H 15 04/01/21 23:52 97.9 F 04/01/21 23:30 80 20 89/59 04/01/21 23:01 80 19 85/50 04/01/21 23:00 85 18 85/50 04/01/21 22:31 83 21 115/71 04/01/21 22:01 113 H 22 115/71 04/01/21 21:31 135 H 29 H 115/71 04/01/21 21:01 93/53 04/01/21 20:48 98 H 18 04/01/21 20:44 102 H 19 99/67 04/01/21 20:31 94 H 21 43/18 04/01/21 20:01 99 H 20 04/01/21 20:00 94 H 94 H 20 04/01/21 19:57 98.4 F 04/01/21 19:31 123 H 31 H 04/01/21 19:01 100 H 18 109/75 04/01/21 18:31 103 H 22 110/60 04/01/21 18:01 99 H 21 110/60 04/01/21 17:31 122 H 30 H 04/01/21 17:25 98.9 F 04/01/21 17:00 99 H 22 102/66 04/01/21 16:31 119 H 24 102/78 04/01/21 16:01 146/96 04/01/21 16:00 108 H 108 H 22 04/01/21 15:31 142 H 31 H 146/96 04/01/21 15:00 142 H 32 H 169/103 04/01/21 14:30 120 H 30 H 146/101 04/01/21 14:01 108 H 24 137/82 04/01/21 13:31 139 H 24 118/85 04/01/21 13:00 95 H 20 118/85 Pulse Ox 04/02/21 11:31 99 04/02/21 11:01 100 04/02/21 10:31 100 04/02/21 10:01 100 04/02/21 09:31 100 04/02/21 09:00 100 04/02/21 08:30 100 04/02/21 08:00 100 04/02/21 07:42 100 04/02/21 07:31 100 04/02/21 07:01 100 04/02/21 06:31 100 04/02/21 06:01 100 04/02/21 05:31 100 04/02/21 05:01 100 04/02/21 04:30 100 04/02/21 04:18 100 04/02/21 04:01 100 04/02/21 04:00 100 04/02/21 03:31 100 04/02/21 03:00 100 04/02/21 02:30 04/02/21 02:01 100 04/02/21 01:30 100 04/02/21 01:00 100 04/02/21 00:30 100 04/02/21 00:01 100 04/02/21 00:00 100 04/01/21 23:52 04/01/21 23:30 100 04/01/21 23:01 100 04/01/21 23:00 100 04/01/21 22:31 100 04/01/21 22:01 100 04/01/21 21:31 100 04/01/21 21:01 100 04/01/21 20:48 04/01/21 20:44 100 04/01/21 20:31 100 04/01/21 20:01 100 04/01/21 20:00 100 04/01/21 19:57 04/01/21 19:31 100 04/01/21 19:01 100 04/01/21 18:31 100 04/01/21 18:01 100 04/01/21 17:31 100 04/01/21 17:25 04/01/21 17:00 99 04/01/21 16:31 97 04/01/21 16:01 90 04/01/21 16:00 100 04/01/21 15:31 90 04/01/21 15:00 92 04/01/21 14:30 96 04/01/21 14:01 95 04/01/21 13:31 92 04/01/21 13:00 97 - Physical Examination General: Other (Comfortable in no acute distress) HEENT: Positive: PERRL Neck: Positive: neck supple Cardiac: Positive: Reg Rate and Rhythm Lungs: Positive: Decreased Breath Sounds Neuro: Positive: Grossly Intact Abdomen: Positive: Soft Skin: Positive: Clear Extremities: Absent: edema - Labs and Meds CBC 04/02/21 Range/Units 04:30 WBC 17.3 H (4.5-11.0) K/mm3 RBC 3.74 (3.65-5.03) M/mm3 Hgb 8.7 L (10.1-14.3) gm/dl Hct 30.1 L (30.3-42.9) % Plt Count 521 H (140-440) K/mm3 Comprehensive Metabolic Panel 04/02/21 Range/Units 04:30 Sodium 144 (137-145) mmol/L Potassium 4.2 (3.6-5.0) mmol/L Chloride 100.6 (98-107) mmol/L Carbon Dioxide 33 H (22-30) mmol/L BUN 13 (7-17) mg/dL Creatinine 0.4 L (0.6-1.2) mg/dL Glucose 70 (65-100) mg/dL Calcium 8.7 (8.4-10.2) mg/dL
--- NOTE | 2021-04-02 13:02 | XRay Report ---
ABDOMEN 1 VIEW 04/02/2021 10:46 AM INDICATION / CLINICAL INFORMATION: NGT PLACEMENT. COMPARISON: 03/22/21. FINDINGS: TUBES / LINES: The nasogastric tube has been removed. There is a new weighted enteric feeding tube wi th the tip overlying the gastric body proximally. BOWEL GAS PATTERN: No significant abnormality. FREE AIR / EXTRALUMINAL GAS: None. ADDITIONAL FINDINGS: There is mild bibasilar pleuroparenchymal disease. IMPRESSION: New feeding tube tip overlies the proximal gastric body. Signer Name: Uvaldo Cartagena MD Signed: 04/02/2021 12:57 PM Workstation Name: [id number]
--- NOTE | 2021-04-02 13:08 | Progress Note ---
Assessment and Plan 60 y/o female with acute on chronic respiratory failure, SVT and HTN likely all related to anxiety and stress 04/02/21: Patient has verbally expressed that she wants to go home and she wants to go home with home hospice. Patient is already on [facility] palliative service and can transition to hospice. Awaiting to see how much oxygen we are able to provide for patient. She should be able to be weaned to nasal cannula but await to hear back from [place]. Per [facility] can do 50 liters and 50%. Patient currently on 40 and 50 with sat of 100. Await psych recommendations. 03/30/21: Currently still on bipap. No HFNC units available in the house. Transfused blood on yesterday. But no CBC checked today. Patient states that she is tired and has expressed this to several of the staff. She is currently on [facility] but my plan is to discuss hospice with her and her . Dropping steroids down starting tomorrow. Continue to wean Oxygen as tolerated. If possible keep in either ICU or step down over the weekend. 03/29/21: Currently on bipap. Good volumes and good sats. Still with some mild distress but stable. Will continue bipap therapy for now. Tomorrow will need to place psych consult if able to stay of the vent and weaned from continuous bipap to help us address anxiety and depression. IMS will likely want to transfuse PRBC's. Would give slowly if done. Discussed with MEDIA DIRECTOR and Bedside nurse, will restart precedex at low dose to help with anxiety. Will alert . 03/28/21: Continue PSV but she isnt ready for extubation today. Not able to tolerates PSV on yesterday so today is first real test. Dropped steroids to daily starting today. UOP is stable, but she is grossly positive. If oxygen requirement increases, check CXR and may need to consider lasix. Continue PSV for as long as possible today but definitely rest overnight. Guarded prognosis. May eventually need trach. 03/27/21: Monitor renal function and urine output closely. Not sure why K contin ues to be elevated despite daily correction therapy. Attempt PSV off fent but can continue precedex. Will see how patient looks tomorrow but still may not be a candidate for extubation. Drop steroids to daily starting tomorrow. 03/26/21: Continue daily PSV trials. Agree with my partner as I would like another trial of routine extubation before committing to trach. Discussed with family and patient at bedside this am. Continue solumedrol 40q12. IMS restarted buspar. WIll have psych see and evaluate to help with anxiety and depression once extubated. Guarded prognosis. 03/22/21: Please see event note for details. Planned to extubate today and wean steroids. 03/21/21: Echo given continued tachycardia despite adequate oxygenation. Can drop steroids to 40q8. 03/19/21: Continue sedation. Wean FiO2 for sats >88%. consider weaning steroid tomorrow. Follow up RUQ and trend LFT's 1. Wean Versed and place on Diprovan drip 2. Will give Fent 100 IV x1 now and order drip if needed for pain 3. Spoke with over the phone to get more history. Sounds like a panic attack not aborted by xanax therapy. Did check Tylenol level as patient has been in pain from fall 4. Elevated LFT's former drinker but confirms she has not been drinking. Ordered RUQ ultrasound and need to repeat LFT's tomorrow 5. Reviewed cards note, and they do not want to treat tachycardia or elevated bp, likely needs more sedation Guarded prognosis CCT 31 minutes. Subjective Date of service: 04/02/21 Principal diagnosis: Atrial fibrillation with RVR, respiratory failure Interval history: Awake and alert. On HFNC and satting 100. Still has bouts of agitation and anxiety but overall improved. Still on precedex unfortunately. Objective Vital Signs - 12hr 04/02/21 04/02/21 04/02/21 01:00 01:30 02:01 Temperature Pulse Rate 74 74 77 Pulse Rate [ From Monitor] Respiratory 16 20 22 Rate Blood Pressure 91/56 90/57 87/65 O2 Sat by Pulse 100 100 100 Oximetry 04/02/21 04/02/21 04/02/21 02:30 03:00 03:31 Temperature Pulse Rate 79 79 74 Pulse Rate [ From Monitor] Respiratory 15 17 14 Rate Blood Pressure 100/57 103/67 91/59 O2 Sat by Pulse 100 100 100 Oximetry 04/02/21 04/02/21 04/02/21 04:00 04:01 04:18 Temperature 97.8 F Pulse Rate 72 73 68 Pulse Rate [ 72 From Monitor] Respiratory 16 15 16 Rate Blood Pressure 110/47 110/47 O2 Sat by Pulse 100 100 100 Oximetry 04/02/21 04/02/21 04/02/21 04:30 05:01 05:31 Temperature Pulse Rate 79 69 65 Pulse Rate [ From Monitor] Respiratory 18 17 18 Rate Blood Pressure 103/68 90/56 93/60 O2 Sat by Pulse 100 100 100 Oximetry 04/02/21 04/02/21 04/02/21 06:01 06:31 07:01 Temperature Pulse Rate 81 62 80 Pulse Rate [ From Monitor] Respiratory 23 16 12 Rate Blood Pressure 147/84 65/38 88/59 O2 Sat by Pulse 100 100 100 Oximetry 04/02/21 04/02/21 04/02/21 07:31 07:42 08:00 Temperature 97.9 F Pulse Rate 68 63 66 Pulse Rate [ 65 From Monitor] Respiratory 17 17 17 Rate Blood Pressure 89/56 89/56 87/58 O2 Sat by Pulse 100 100 100 Oximetry 04/02/21 04/02/21 04/02/21 08:30 09:00 09:31 Temperature Pulse Rate 70 61 61 Pulse Rate [ From Monitor] Respiratory 23 13 15 Rate Blood Pressure 91/67 94/60 97/64 O2 Sat by Pulse 100 100 100 Oximetry 04/02/21 04/02/21 04/02/21 10:01 10:31 11:01 Temperature Pulse Rate 61 94 H 94 H Pulse Rate [ From Monitor] Respiratory 15 17 31 H Rate Blood Pressure 102/55 102/55 136/73 O2 Sat by Pulse 100 100 100 Oximetry 04/02/21 11:31 Temperature Pulse Rate 104 H Pulse Rate [ From Monitor] Respiratory 32 H Rate Blood Pressure 117/76 O2 Sat by Pulse 99 Oximetry Constitutional: other (moderate distress) Eyes: non-icteric ENT: oropharynx moist Neck: supple Effort: normal Ascultation: Bilateral: diminished breath sounds Cardiovascular: regular rate and rhythm (no mrg) Gastrointestinal: normoactive bowel sounds, soft, non-tender, non-distended Extremities: no cyanosis, no edema, pink and warm Neurologic: normal mental status, non-focal exam, pupils equal and round Psychiatric: mood appropriate, affect normal CBC and BMP: 04/02/21 04:30 04/02/21 04:30 ABG, PT/INR, D-dimer: ABG ABG pH 7.477 (7.320-7.450) H 03/24/21 08:57 POC ABG pCO2 56.9 mmHg (32.0-48.0) H 03/24/21 08:57 ABG pCO2 72.7 mm Hg 03/23/21 04:50 POC ABG pO2 100.6 mmHg (83-108) 03/24/21 08:57 ABG pO2 70.7 mm Hg (80.0-90.0) L 03/23/21 04:50 POC ABG HCO3 41.1 03/24/21 08:57 ABG O2 Saturation 98.3 (0-100) 03/24/21 08:57 PT/INR, D-dimer PT 12.6 Sec. (12.2-14.9) 03/17/21 17:37 INR 0.85 (0.87-1.13) L 03/17/21 17:37 D-Dimer 947.92 ng/mlDDU (0-234) H 03/17/21 17:37 Abnormal lab findings: Abnormal Labs 03/17/21 03/17/21 03/17/21 17:36 17:36 17:37 WBC 13.8 H RBC 3.48 L Hgb 7.0 L Hct 26.2 L MCV 75 L MCH 20 L MCHC 27 L RDW 25.4 H Plt Count Seg Neuts % (Manual) Lymphocytes % (Manual) Monocytes % (Manual) Nucleated RBC % 7.0 H Seg Neutrophils # Man 8.7 H Lymphocytes # (Manual) Monocytes # (Manual) INR 0.85 L APTT 23.3 L D-Dimer 947.92 H ABG pH POC ABG pCO2 POC ABG pO2 ABG pO2 ABG HCO3 ABG O2 Saturation ABG Base Excess ABG Hemoglobin ABG Oxyhemoglobin ABG Potassium ABG Chloride ABG Glucose Oxyhemoglobin Potassium Chloride 88.2 L Carbon Dioxide 38 H BUN Creatinine Glucose 129 H POC Glucose Lactic Acid Calcium Phosphorus Magnesium AST 177 H ALT 251 H Alkaline Phosphatase Ammonia Troponin T 0.036 H Total Protein 5.9 L Albumin 3.8 L Triglycerides 173 H HDL Cholesterol 73 H Lipase Arterial Blood Glucose Arterial Blood Ionized Calcium Acetaminophen Crossmatch 03/17/21 03/17/21 03/17/21 18:15 18:40 18:40 WBC RBC Hgb Hct MCV MCH MCHC RDW Plt Count Seg Neuts % (Manual) Lymphocytes % (Manual) Monocytes % (Manual) Nucleated RBC % Seg Neutrophils # Man Lymphocytes # (Manual) Monocytes # (Manual) INR APTT D-Dimer ABG pH POC ABG pCO2 POC ABG pO2 ABG pO2 94.4 H ABG HCO3 44.8 H ABG O2 Saturation ABG Base Excess 16.6 H ABG Hemoglobin ABG Oxyhemoglobin ABG Potassium ABG Chloride ABG Glucose Oxyhemoglobin Potassium Chloride Carbon Dioxide BUN Creatinine Glucose POC Glucose Lactic Acid 4.00 H* Calcium Phosphorus Magnesium AST ALT Alkaline Phosphatase Ammonia 116.0 H Troponin T Total Protein Albumin Triglycerides HDL Cholesterol Lipase Arterial Blood Glucose Arterial Blood Ionized Calcium Acetaminophen Crossmatch 03/17/21 03/18/21 03/18/21 23:36 00:25 23:07 WBC RBC Hgb Hct MCV MCH MCHC RDW Plt Count Seg Neuts % (Manual) Lymphocytes % (Manual) Monocytes % (Manual) Nucleated RBC % Seg Neutrophils # Man Lymphocytes # (Manual) Monocytes # (Manual) INR APTT D-Dimer ABG pH POC ABG pCO2 POC ABG pO2 ABG pO2 68.1 L ABG HCO3 40.2 H ABG O2 Saturation ABG Base Excess 14.4 H ABG Hemoglobin 6.5 L ABG Oxyhemoglobin ABG Potassium ABG Chloride ABG Glucose Oxyhemoglobin Potassium Chloride Carbon Dioxide BUN Creatinine Glucose POC Glucose Lactic Acid 4.00 H* Calcium Phosphorus Magnesium AST ALT Alkaline Phosphatase Ammonia Troponin T Total Protein Albumin Triglycerides HDL Cholesterol Lipase Arterial Blood Glucose Arterial Blood Ionized Calcium Acetaminophen 5.0 L Crossmatch 03/19/21 03/19/21 03/19/21 00:50 03:25 04:59 WBC RBC 3.43 L Hgb 7.0 L Hct 25.6 L MCV 75 L MCH 20 L MCHC 27 L RDW 25.6 H Plt Count Seg Neuts % (Manual) 91.0 H Lymphocytes % (Manual) Monocytes % (Manual) 9.0 H Nucleated RBC % 3.0 H Seg Neutrophils # Man 9.0 H Lymphocytes # (Manual) 0.0 L Monocytes # (Manual) INR APTT D-Dimer ABG pH 7.531 H POC ABG pCO2 POC ABG pO2 ABG pO2 49.6 L ABG HCO3 31.4 H ABG O2 Saturation 99.6 H ABG Base Excess 8.1 H ABG Hemoglobin 7.2 L ABG Oxyhemoglobin ABG Potassium ABG Chloride ABG Glucose Oxyhemoglobin Potassium Chloride Carbon Dioxide BUN Creatinine Glucose POC Glucose 127 H Lactic Acid Calcium Phosphorus Magnesium AST ALT Alkaline Phosphatase Ammonia Troponin T Total Protein Albumin Triglycerides HDL Cholesterol Lipase Arterial Blood Glucose Arterial Blood Ionized Calcium Acetaminophen Crossmatch 03/19/21 03/19/21 03/19/21 04:59 10:37 12:00 WBC RBC Hgb Hct MCV MCH MCHC RDW Plt Count Seg Neuts % (Manual) Lymphocytes % (Manual) Monocytes % (Manual) Nucleated RBC % Seg Neutrophils # Man Lymphocytes # (Manual) Monocytes # (Manual) INR APTT D-Dimer ABG pH 7.494 H POC ABG pCO2 POC ABG pO2 ABG pO2 107.3 H ABG HCO3 31.6 H ABG O2 Saturation ABG Base Excess 7.7 H ABG Hemoglobin 7.1 L ABG Oxyhemoglobin ABG Potassium ABG Chloride ABG Glucose Oxyhemoglobin Potassium Chloride 89.5 L Carbon Dioxide BUN Creatinine Glucose 121 H POC Glucose Lactic Acid Calcium Phosphorus Magnesium AST 359 H ALT 1434 H Alkaline Phosphatase Ammonia Troponin T Total Protein 5.7 L Albumin 3.5 L Triglycerides HDL Cholesterol Lipase Arterial Blood Glucose Arterial Blood Ionized Calcium Acetaminophen Crossmatch 03/19/21 03/19/21 03/19/21 12:05 17:52 23:23 WBC RBC Hgb Hct MCV MCH MCHC RDW Plt Count Seg Neuts % (Manual) Lymphocytes % (Manual) Monocytes % (Manual) Nucleated RBC % Seg Neutrophils # Man Lymphocytes # (Manual) Monocytes # (Manual) INR APTT D-Dimer ABG pH POC ABG pCO2 POC ABG pO2 ABG pO2 ABG HCO3 ABG O2 Saturation ABG Base Excess ABG Hemoglobin ABG Oxyhemoglobin ABG Potassium ABG Chloride ABG Glucose Oxyhemoglobin Potassium Chloride Carbon Dioxide BUN Creatinine Glucose POC Glucose 122 H 114 H 187 H Lactic Acid Calcium Phosphorus Magnesium AST ALT Alkaline Phosphatase Ammonia Troponin T Total Protein Albumin Triglycerides HDL Cholesterol Lipase Arterial Blood Glucose Arterial Blood Ionized Calcium Acetaminophen Crossmatch 03/19/21 03/20/21 03/20/21 Unknown 03:50 03:57 WBC RBC Hgb Hct MCV MCH MCHC RDW Plt Count Seg Neuts % (Manual) Lymphocytes % (Manual) Monocytes % (Manual) Nucleated RBC % Seg Neutrophils # Man Lymphocytes # (Manual) Monocytes # (Manual) INR APTT D-Dimer ABG pH 7.477 H POC ABG pCO2 POC ABG pO2 ABG pO2 67.9 L ABG HCO3 33.9 H ABG O2 Saturation ABG Base Excess 9.5 H ABG Hemoglobin 6.7 L ABG Oxyhemoglobin ABG Potassium ABG Chloride ABG Glucose Oxyhemoglobin Potassium Chloride Carbon Dioxide BUN Creatinine Glucose POC Glucose 247 H Lactic Acid Calcium Phosphorus Magnesium AST ALT Alkaline Phosphatase Ammonia Troponin T Total Protein Albumin Triglycerides HDL Cholesterol Lipase 12 L Arterial Blood Glucose Arterial Blood Ionized Calcium Acetaminophen Crossmatch 03/20/21 03/20/21 03/20/21 04:18 04:18 10:16 WBC RBC 3.48 L Hgb 7.0 L Hct 25.3 L MCV 73 L MCH 20 L MCHC 28 L RDW 25.2 H Plt Count 541 H Seg Neuts % (Manual) Lymphocytes % (Manual) Monocytes % (Manual) Nucleated RBC % Seg Neutrophils # Man Lymphocytes # (Manual) Monocytes # (Manual) INR APTT D-Dimer ABG pH POC ABG pCO2 POC ABG pO2 ABG pO2 63.3 L ABG HCO3 34.0 H ABG O2 Saturation 90.0 L ABG Base Excess 7.9 H ABG Hemoglobin 10.5 L ABG Oxyhemoglobin ABG Potassium ABG Chloride ABG Glucose Oxyhemoglobin 88.1 L Potassium Chloride 91.6 L Carbon Dioxide BUN 22 H Creatinine Glucose 245 H POC Glucose Lactic Acid Calcium Phosphorus Magnesium AST 148 H ALT 1096 H Alkaline Phosphatase 133 H Ammonia Troponin T Total Protein Albumin 3.5 L Triglycerides HDL Cholesterol Lipase Arterial Blood Glucose Arterial Blood Ionized Calcium Acetaminophen Crossmatch 03/20/21 03/20/21 03/21/21 12:05 17:26 00:18 WBC RBC Hgb Hct MCV MCH MCHC RDW Plt Count Seg Neuts % (Manual) Lymphocytes % (Manual) Monocytes % (Manual) Nucleated RBC % Seg Neutrophils # Man Lymphocytes # (Manual) Monocytes # (Manual) INR APTT D-Dimer ABG pH POC ABG pCO2 POC ABG pO2 ABG pO2 ABG HCO3 ABG O2 Saturation ABG Base Excess ABG Hemoglobin ABG Oxyhemoglobin ABG Potassium ABG Chloride ABG Glucose Oxyhemoglobin Potassium Chloride Carbon Dioxide BUN Creatinine Glucose POC Glucose 226 H 215 H 323 H Lactic Acid Calcium Phosphorus Magnesium AST ALT Alkaline Phosphatase Ammonia Troponin T Total Protein Albumin Triglycerides HDL Cholesterol Lipase Arterial Blood Glucose Arterial Blood Ionized Calcium Acetaminophen Crossmatch 03/21/21 03/21/21 03/21/21 04:00 05:05 09:28 WBC 12.0 H RBC 3.42 L Hgb 6.8 L Hct 25.3 L MCV 74 L MCH 20 L MCHC 27 L RDW 25.1 H Plt Count 650 H Seg Neuts % (Manual) Lymphocytes % (Manual) Monocytes % (Manual) Nucleated RBC % Seg Neutrophils # Man Lymphocytes # (Manual) Monocytes # (Manual) INR APTT D-Dimer ABG pH 7.348 L POC ABG pCO2 POC ABG pO2 ABG pO2 56.3 L ABG HCO3 36.9 H ABG O2 Saturation 83.4 L ABG Base Excess 10.0 H ABG Hemoglobin 7.0 L ABG Oxyhemoglobin ABG Potassium ABG Chloride ABG Glucose Oxyhemoglobin 81.7 L Potassium Chloride Carbon Dioxide BUN Creatinine Glucose POC Glucose 311 H Lactic Acid Calcium Phosphorus Magnesium AST ALT Alkaline Phosphatase Ammonia Troponin T Total Protein Albumin Triglycerides HDL Cholesterol Lipase Arterial Blood Glucose Arterial Blood Ionized Calcium Acetaminophen Crossmatch 03/21/21 03/21/21 03/21/21 09:28 12:31 14:08 WBC RBC Hgb Hct MCV MCH MCHC RDW Plt Count Seg Neuts % (Manual) Lymphocytes % (Manual) Monocytes % (Manual) Nucleated RBC % Seg Neutrophils # Man Lymphocytes # (Manual) Monocytes # (Manual) INR APTT D-Dimer ABG pH POC ABG pCO2 POC ABG pO2 ABG pO2 ABG HCO3 ABG O2 Saturation ABG Base Excess ABG Hemoglobin ABG Oxyhemoglobin ABG Potassium ABG Chloride ABG Glucose Oxyhemoglobin Potassium 5.1 H D Chloride 94.4 L Carbon Dioxide 33 H BUN 32 H Creatinine Glucose 319 H POC Glucose 295 H Lactic Acid Calcium Phosphorus Magnesium 2.40 H AST ALT 697 H Alkaline Phosphatase 134 H Ammonia Troponin T Total Protein 5.8 L Albumin 3.4 L Triglycerides HDL Cholesterol Lipase Arterial Blood Glucose Arterial Blood Ionized Calcium Acetaminophen Crossmatch See Detail 03/22/21 03/22/21 03/22/21 00:14 04:30 04:39 WBC RBC Hgb Hct MCV MCH MCHC RDW Plt Count Seg Neuts % (Manual) Lymphocytes % (Manual) Monocytes % (Manual) Nucleated RBC % Seg Neutrophils # Man Lymphocytes # (Manual) Monocytes # (Manual) INR APTT D-Dimer ABG pH 7.310 L POC ABG pCO2 POC ABG pO2 ABG pO2 65.4 L ABG HCO3 38.3 H ABG O2 Saturation 90.8 L ABG Base Excess 10.9 H ABG Hemoglobin 6.4 L ABG Oxyhemoglobin ABG Potassium ABG Chloride ABG Glucose Oxyhemoglobin 88.7 L Potassium Chloride Carbon Dioxide BUN Creatinine Glucose POC Glucose 326 H Lactic Acid Calcium Phosphorus Magnesium AST ALT Alkaline Phosphatase Ammonia Troponin T Total Protein Albumin Triglycerides 189 H HDL Cholesterol Lipase Arterial Blood Glucose Arterial Blood Ionized Calcium Acetaminophen Crossmatch 03/22/21 03/22/21 03/22/21 04:39 04:39 09:45 WBC 12.8 H RBC 3.34 L Hgb 6.6 L Hct 24.5 L MCV 73 L MCH 20 L MCHC 27 L RDW 25.5 H Plt Count 644 H Seg Neuts % (Manual) Lymphocytes % (Manual) Monocytes % (Manual) Nucleated RBC % Seg Neutrophils # Man Lymphocytes # (Manual) Monocytes # (Manual) INR APTT D-Dimer ABG pH POC ABG pCO2 65.7 H POC ABG pO2 59.7 L ABG pO2 ABG HCO3 ABG O2 Saturation ABG Base Excess ABG Hemoglobin 8.0 L ABG Oxyhemoglobin 86.3 L ABG Potassium 4.7 H ABG Chloride 94.0 L ABG Glucose 208 H Oxyhemoglobin Potassium 5.3 H Chloride 94.6 L Carbon Dioxide 34 H BUN 33 H Creatinine Glucose 291 H POC Glucose Lactic Acid Calcium Phosphorus Magnesium AST ALT Alkaline Phosphatase Ammonia Troponin T Total Protein Albumin Triglycerides HDL Cholesterol Lipase Arterial Blood Glucose 208 H Arterial Blood Ionized Calcium Acetaminophen Crossmatch 03/22/21 03/22/21 03/23/21 21:33 23:58 04:42 WBC 14.3 H RBC 3.63 L Hgb 7.6 L Hct 27.0 L MCV 74 L MCH 21 L MCHC 28 L RDW 23.1 H Plt Count 567 H Seg Neuts % (Manual) Lymphocytes % (Manual) Monocytes % (Manual) Nucleated RBC % Seg Neutrophils # Man Lymphocytes # (Manual) Monocytes # (Manual) INR APTT D-Dimer ABG pH POC ABG pCO2 POC ABG pO2 ABG pO2 ABG HCO3 ABG O2 Saturation ABG Base Excess ABG Hemoglobin ABG Oxyhemoglobin ABG Potassium ABG Chloride ABG Glucose Oxyhemoglobin Potassium Chloride Carbon Dioxide BUN Creatinine Glucose POC Glucose 170 H 156 H Lactic Acid Calcium Phosphorus Magnesium AST ALT Alkaline Phosphatase Ammonia Troponin T Total Protein Albumin Triglycerides HDL Cholesterol Lipase Arterial Blood Glucose Arterial Blood Ionized Calcium Acetaminophen Crossmatch 03/23/21 03/23/21 03/23/21 04:42 04:50 22:25 WBC RBC Hgb Hct MCV MCH MCHC RDW Plt Count Seg Neuts % (Manual) Lymphocytes % (Manual) Monocytes % (Manual) Nucleated RBC % Seg Neutrophils # Man Lymphocytes # (Manual) Monocytes # (Manual) INR APTT D-Dimer ABG pH POC ABG pCO2 POC ABG pO2 ABG pO2 70.7 L ABG HCO3 41.7 H ABG O2 Saturation ABG Base Excess 15.2 H ABG Hemoglobin 5.6 L ABG Oxyhemoglobin ABG Potassium ABG Chloride ABG Glucose Oxyhemoglobin Potassium Chloride 94.6 L Carbon Dioxide 37 H BUN 27 H Creatinine Glucose 311 H POC Glucose 295 H Lactic Acid Calcium Phosphorus Magnesium AST ALT Alkaline Phosphatase Ammonia Troponin T Total Protein Albumin Triglycerides HDL Cholesterol Lipase Arterial Blood Glucose Arterial Blood Ionized Calcium Acetaminophen Crossmatch 03/23/21 03/24/21 03/24/21 23:13 05:13 07:59 WBC RBC Hgb Hct MCV MCH MCHC RDW Plt Count Seg Neuts % (Manual) Lymphocytes % (Manual) Monocytes % (Manual) Nucleated RBC % Seg Neutrophils # Man Lymphocytes # (Manual) Monocytes # (Manual) INR APTT D-Dimer ABG pH POC ABG pCO2 POC ABG pO2 ABG pO2 ABG HCO3 ABG O2 Saturation ABG Base Excess ABG Hemoglobin ABG Oxyhemoglobin ABG Potassium ABG Chloride ABG Glucose Oxyhemoglobin Potassium Chloride Carbon Dioxide BUN Creatinine Glucose POC Glucose 336 H 303 H 333 H Lactic Acid Calcium Phosphorus Magnesium AST ALT Alkaline Phosphatase Ammonia Troponin T Total Protein Albumin Triglycerides HDL Cholesterol Lipase Arterial Blood Glucose Arterial Blood Ionized Calcium Acetaminophen Crossmatch 03/24/21 03/24/21 03/24/21 08:03 08:03 08:57 WBC 12.7 H RBC 3.48 L Hgb 7.3 L Hct 26.3 L MCV 76 L MCH 21 L MCHC 28 L RDW 24.1 H Plt Count 499 H Seg Neuts % (Manual) Lymphocytes % (Manual) 1.0 L Monocytes % (Manual) 16.0 H Nucleated RBC % 11.0 H Seg Neutrophils # Man 8.1 H Lymphocytes # (Manual) 0.1 L Monocytes # (Manual) 2.1 H INR APTT D-Dimer ABG pH 7.477 H POC ABG pCO2 56.9 H POC ABG pO2 ABG pO2 ABG HCO3 ABG O2 Saturation ABG Base Excess ABG Hemoglobin 8.0 L ABG Oxyhemoglobin ABG Potassium ABG Chloride 93.0 L ABG Glucose 328 H Oxyhemoglobin Potassium Chloride 94.4 L Carbon Dioxide 38 H BUN 26 H Creatinine 0.5 L Glucose 348 H POC Glucose Lactic Acid Calcium Phosphorus Magnesium AST ALT Alkaline Phosphatase Ammonia Troponin T Total Protein Albumin Triglycerides HDL Cholesterol Lipase Arterial Blood Glucose 328 H Arterial Blood Ionized Calcium 4.5 L Acetaminophen Crossmatch 03/24/21 03/24/21 03/25/21 12:14 17:45 04:00 WBC 15.8 H RBC Hgb 7.5 L Hct 27.4 L MCV 75 L MCH 21 L MCHC 28 L RDW 24.0 H Plt Count 576 H Seg Neuts % (Manual) Lymphocytes % (Manual) Monocytes % (Manual) Nucleated RBC % Seg Neutrophils # Man Lymphocytes # (Manual) Monocytes # (Manual) INR APTT D-Dimer ABG pH POC ABG pCO2 POC ABG pO2 ABG pO2 ABG HCO3 ABG O2 Saturation ABG Base Excess ABG Hemoglobin ABG Oxyhemoglobin ABG Potassium ABG Chloride ABG Glucose Oxyhemoglobin Potassium Chloride Carbon Dioxide BUN Creatinine Glucose POC Glucose 315 H 324 H Lactic Acid Calcium Phosphorus Magnesium AST ALT Alkaline Phosphatase Ammonia Troponin T Total Protein Albumin Triglycerides HDL Cholesterol Lipase Arterial Blood Glucose Arterial Blood Ionized Calcium Acetaminophen Crossmatch 03/25/21 03/25/21 03/25/21 07:52 16:37 17:38 WBC RBC Hgb Hct MCV MCH MCHC RDW Plt Count Seg Neuts % (Manual) Lymphocytes % (Manual) Monocytes % (Manual) Nucleated RBC % Seg Neutrophils # Man Lymphocytes # (Manual) Monocytes # (Manual) INR APTT D-Dimer ABG pH POC ABG pCO2 POC ABG pO2 ABG pO2 ABG HCO3 ABG O2 Saturation ABG Base Excess ABG Hemoglobin ABG Oxyhemoglobin ABG Potassium ABG Chloride ABG Glucose Oxyhemoglobin Potassium Chloride 95.9 L Carbon Dioxide 33 H BUN 24 H Creatinine 0.4 L Glucose 289 H POC Glucose 321 H 295 H Lactic Acid Calcium Phosphorus Magnesium AST ALT Alkaline Phosphatase Ammonia Troponin T Total Protein Albumin Triglycerides HDL Cholesterol Lipase Arterial Blood Glucose Arterial Blood Ionized Calcium Acetaminophen Crossmatch 03/25/21 03/26/21 03/26/21 23:27 05:07 05:35 WBC 20.0 H RBC 3.37 L Hgb 7.0 L Hct 25.2 L MCV 75 L MCH 21 L MCHC 28 L RDW 24.0 H Plt Count 544 H Seg Neuts % (Manual) 72.0 H Lymphocytes % (Manual) 6.0 L Monocytes % (Manual) 8.0 H Nucleated RBC % Seg Neutrophils # Man 14.4 H Lymphocytes # (Manual) Monocytes # (Manual) 1.6 H INR APTT D-Dimer ABG pH POC ABG pCO2 POC ABG pO2 ABG pO2 ABG HCO3 ABG O2 Saturation ABG Base Excess ABG Hemoglobin ABG Oxyhemoglobin ABG Potassium ABG Chloride ABG Glucose Oxyhemoglobin Potassium Chloride Carbon Dioxide BUN Creatinine Glucose POC Glucose 231 H 200 H Lactic Acid Calcium Phosphorus Magnesium AST ALT Alkaline Phosphatase Ammonia Troponin T Total Protein Albumin Triglycerides HDL Cholesterol Lipase Arterial Blood Glucose Arterial Blood Ionized Calcium Acetaminophen Crossmatch 03/26/21 03/26/21 03/26/21 05:35 10:33 12:12 WBC RBC Hgb Hct MCV MCH MCHC RDW Plt Count Seg Neuts % (Manual) Lymphocytes % (Manual) Monocytes % (Manual) Nucleated RBC % Seg Neutrophils # Man Lymphocytes # (Manual) Monocytes # (Manual) INR APTT D-Dimer ABG pH POC ABG pCO2 POC ABG pO2 ABG pO2 ABG HCO3 ABG O2 Saturation ABG Base Excess ABG Hemoglobin ABG Oxyhemoglobin ABG Potassium ABG Chloride ABG Glucose Oxyhemoglobin Potassium 5.9 H D Chloride 91.9 L Carbon Dioxide 33 H BUN 20 H Creatinine 0.4 L Glucose 197 H POC Glucose 132 H 176 H Lactic Acid Calcium Phosphorus Magnesium AST ALT 169 H Alkaline Phosphatase 138 H Ammonia Troponin T Total Protein 5.5 L Albumin 3.2 L Triglycerides HDL Cholesterol Lipase Arterial Blood Glucose Arterial Blood Ionized Calcium Acetaminophen Crossmatch 03/26/21 03/26/21 03/26/21 16:50 18:06 22:19 WBC RBC Hgb Hct MCV MCH MCHC RDW Plt Count Seg Neuts % (Manual) Lymphocytes % (Manual) Monocytes % (Manual) Nucleated RBC % Seg Neutrophils # Man Lymphocytes # (Manual) Monocytes # (Manual) INR APTT D-Dimer ABG pH POC ABG pCO2 POC ABG pO2 ABG pO2 ABG HCO3 ABG O2 Saturation ABG Base Excess ABG Hemoglobin ABG Oxyhemoglobin ABG Potassium ABG Chloride ABG Glucose Oxyhemoglobin Potassium 5.2 H Chloride 91.7 L Carbon Dioxide 38 H BUN 19 H Creatinine 0.4 L Glucose 260 H POC Glucose 248 H 168 H Lactic Acid Calcium Phosphorus Magnesium AST ALT Alkaline Phosphatase Ammonia Troponin T Total Protein Albumin Triglycerides HDL Cholesterol Lipase Arterial Blood Glucose Arterial Blood Ionized Calcium Acetaminophen Crossmatch 03/27/21 03/27/21 03/27/21 01:02 01:32 04:15 WBC 21.4 H RBC 3.45 L Hgb 6.9 L Hct 26.2 L MCV 76 L MCH 20 L MCHC 27 L RDW 24.5 H Plt Count 500 H Seg Neuts % (Manual) Lymphocytes % (Manual) Monocytes % (Manual) Nucleated RBC % Seg Neutrophils # Man Lymphocytes # (Manual) Monocytes # (Manual) INR APTT D-Dimer ABG pH POC ABG pCO2 POC ABG pO2 ABG pO2 ABG HCO3 ABG O2 Saturation ABG Base Excess ABG Hemoglobin ABG Oxyhemoglobin ABG Potassium ABG Chloride ABG Glucose Oxyhemoglobin Potassium Chloride Carbon Dioxide BUN Creatinine Glucose POC Glucose 219 H 221 H Lactic Acid Calcium Phosphorus Magnesium AST ALT Alkaline Phosphatase Ammonia Troponin T Total Protein Albumin Triglycerides HDL Cholesterol Lipase Arterial Blood Glucose Arterial Blood Ionized Calcium Acetaminophen Crossmatch 03/27/21 03/27/21 03/27/21 04:15 06:37 11:21 WBC RBC Hgb Hct MCV MCH MCHC RDW Plt Count Seg Neuts % (Manual) Lymphocytes % (Manual) Monocytes % (Manual) Nucleated RBC % Seg Neutrophils # Man Lymphocytes # (Manual) Monocytes # (Manual) INR APTT D-Dimer ABG pH POC ABG pCO2 POC ABG pO2 ABG pO2 ABG HCO3 ABG O2 Saturation ABG Base Excess ABG Hemoglobin ABG Oxyhemoglobin ABG Potassium ABG Chloride ABG Glucose Oxyhemoglobin Potassium 5.3 H Chloride 94.4 L Carbon Dioxide 35 H BUN 20 H Creatinine 0.4 L Glucose 310 H POC Glucose 312 H 273 H Lactic Acid Calcium 8.3 L Phosphorus 4.60 H D Magnesium AST ALT Alkaline Phosphatase Ammonia Troponin T Total Protein Albumin Triglycerides HDL Cholesterol Lipase Arterial Blood Glucose Arterial Blood Ionized Calcium Acetaminophen Crossmatch 03/27/21 03/27/21 03/28/21 16:14 21:21 00:16 WBC RBC Hgb Hct MCV MCH MCHC RDW Plt Count Seg Neuts % (Manual) Lymphocytes % (Manual) Monocytes % (Manual) Nucleated RBC % Seg Neutrophils # Man Lymphocytes # (Manual) Monocytes # (Manual) INR APTT D-Dimer ABG pH POC ABG pCO2 POC ABG pO2 ABG pO2 ABG HCO3 ABG O2 Saturation ABG Base Excess ABG Hemoglobin ABG Oxyhemoglobin ABG Potassium ABG Chloride ABG Glucose Oxyhemoglobin Potassium Chloride Carbon Dioxide BUN Creatinine Glucose POC Glucose 241 H 179 H 160 H Lactic Acid Calcium Phosphorus Magnesium AST ALT Alkaline Phosphatase Ammonia Troponin T Total Protein Albumin Triglycerides HDL Cholesterol Lipase Arterial Blood Glucose Arterial Blood Ionized Calcium Acetaminophen Crossmatch 03/28/21 03/28/21 03/28/21 04:00 04:00 05:41 WBC 27.1 H RBC 3.46 L Hgb 7.1 L Hct 26.1 L MCV 76 L MCH 20 L MCHC 27 L RDW 24.0 H Plt Count 541 H Seg Neuts % (Manual) Lymphocytes % (Manual) Monocytes % (Manual) Nucleated RBC % Seg Neutrophils # Man Lymphocytes # (Manual) Monocytes # (Manual) INR APTT D-Dimer ABG pH POC ABG pCO2 POC ABG pO2 ABG pO2 ABG HCO3 ABG O2 Saturation ABG Base Excess ABG Hemoglobin ABG Oxyhemoglobin ABG Potassium ABG Chloride ABG Glucose Oxyhemoglobin Potassium Chloride 95.7 L Carbon Dioxide 36 H BUN 23 H Creatinine 0.4 L Glucose 295 H POC Glucose 279 H Lactic Acid Calcium Phosphorus Magnesium AST ALT Alkaline Phosphatase Ammonia Troponin T Total Protein Albumin Triglycerides HDL Cholesterol Lipase Arterial Blood Glucose Arterial Blood Ionized Calcium Acetaminophen Crossmatch 03/28/21 03/28/21 03/28/21 11:50 16:45 23:15 WBC RBC Hgb Hct MCV MCH MCHC RDW Plt Count Seg Neuts % (Manual) Lymphocytes % (Manual) Monocytes % (Manual) Nucleated RBC % Seg Neutrophils # Man Lymphocytes # (Manual) Monocytes # (Manual) INR APTT D-Dimer ABG pH POC ABG pCO2 POC ABG pO2 ABG pO2 ABG HCO3 ABG O2 Saturation ABG Base Excess ABG Hemoglobin ABG Oxyhemoglobin ABG Potassium ABG Chloride ABG Glucose Oxyhemoglobin Potassium Chloride Carbon Dioxide BUN Creatinine Glucose POC Glucose 233 H 240 H 189 H Lactic Acid Calcium Phosphorus Magnesium AST ALT Alkaline Phosphatase Ammonia Troponin T Total Protein Albumin Triglycerides HDL Cholesterol Lipase Arterial Blood Glucose Arterial Blood Ionized Calcium Acetaminophen Crossmatch 03/29/21 03/29/21 03/29/21 04:35 04:35 05:05 WBC 29.6 H RBC 3.18 L Hgb 6.7 L Hct 24.2 L MCV 76 L MCH 21 L MCHC 28 L RDW 24.0 H Plt Count 678 H Seg Neuts % (Manual) Lymphocytes % (Manual) Monocytes % (Manual) Nucleated RBC % Seg Neutrophils # Man Lymphocytes # (Manual) Monocytes # (Manual) INR APTT D-Dimer ABG pH POC ABG pCO2 POC ABG pO2 ABG pO2 ABG HCO3 ABG O2 Saturation ABG Base Excess ABG Hemoglobin ABG Oxyhemoglobin ABG Potassium ABG Chloride ABG Glucose Oxyhemoglobin Potassium Chloride 95.4 L Carbon Dioxide 37 H BUN 22 H Creatinine 0.4 L Glucose 194 H POC Glucose 195 H Lactic Acid Calcium Phosphorus Magnesium AST ALT Alkaline Phosphatase Ammonia Troponin T Total Protein Albumin Triglycerides HDL Cholesterol Lipase Arterial Blood Glucose Arterial Blood Ionized Calcium Acetaminophen Crossmatch 03/29/21 03/29/21 03/29/21 09:24 10:58 17:14 WBC RBC Hgb Hct MCV MCH MCHC RDW Plt Count Seg Neuts % (Manual) Lymphocytes % (Manual) Monocytes % (Manual) Nucleated RBC % Seg Neutrophils # Man Lymphocytes # (Manual) Monocytes # (Manual) INR APTT D-Dimer ABG pH POC ABG pCO2 POC ABG pO2 ABG pO2 ABG HCO3 ABG O2 Saturation ABG Base Excess ABG Hemoglobin ABG Oxyhemoglobin ABG Potassium ABG Chloride ABG Glucose Oxyhemoglobin Potassium Chloride Carbon Dioxide BUN Creatinine Glucose POC Glucose 106 H 117 H Lactic Acid Calcium Phosphorus Magnesium AST ALT Alkaline Phosphatase Ammonia Troponin T Total Protein Albumin Triglycerides HDL Cholesterol Lipase Arterial Blood Glucose Arterial Blood Ionized Calcium Acetaminophen Crossmatch See Detail 03/29/21 03/29/21 03/30/21 19:32 23:36 01:49 WBC 25.1 H RBC Hgb 9.3 L Hct MCV 77 L MCH 23 L MCHC RDW 22.7 H Plt Count 599 H Seg Neuts % (Manual) Lymphocytes % (Manual) Monocytes % (Manual) Nucleated RBC % Seg Neutrophils # Man Lymphocytes # (Manual) Monocytes # (Manual) INR APTT D-Dimer ABG pH POC ABG pCO2 POC ABG pO2 ABG pO2 ABG HCO3 ABG O2 Saturation ABG Base Excess ABG Hemoglobin ABG Oxyhemoglobin ABG Potassium ABG Chloride ABG Glucose Oxyhemoglobin Potassium Chloride Carbon Dioxide BUN Creatinine Glucose POC Glucose 57 L 55 L Lactic Acid Calcium Phosphorus Magnesium AST ALT Alkaline Phosphatase Ammonia Troponin T Total Protein Albumin Triglycerides HDL Cholesterol Lipase Arterial Blood Glucose Arterial Blood Ionized Calcium Acetaminophen Crossmatch 03/30/21 03/30/21 03/30/21 04:00 15:52 18:07 WBC RBC Hgb Hct MCV MCH MCHC RDW Plt Count Seg Neuts % (Manual) Lymphocytes % (Manual) Monocytes % (Manual) Nucleated RBC % Seg Neutrophils # Man Lymphocytes # (Manual) Monocytes # (Manual) INR APTT D-Dimer ABG pH POC ABG pCO2 POC ABG pO2 ABG pO2 ABG HCO3 ABG O2 Saturation ABG Base Excess ABG Hemoglobin ABG Oxyhemoglobin ABG Potassium ABG Chloride ABG Glucose Oxyhemoglobin Potassium Chloride 93.4 L Carbon Dioxide 34 H BUN 18 H Creatinine 0.3 L Glucose 114 H POC Glucose 112 H 130 H Lactic Acid Calcium Phosphorus 4.70 H Magnesium AST ALT Alkaline Phosphatase Ammonia Troponin T Total Protein Albumin Triglycerides HDL Cholesterol Lipase Arterial Blood Glucose Arterial Blood Ionized Calcium Acetaminophen Crossmatch 03/30/21 03/31/21 03/31/21 23:26 04:41 04:41 WBC 30.8 H RBC Hgb 9.3 L Hct MCV MCH 23 L MCHC 28 L RDW 22.3 H Plt Count 642 H Seg Neuts % (Manual) Lymphocytes % (Manual) Monocytes % (Manual) Nucleated RBC % Seg Neutrophils # Man Lymphocytes # (Manual) Monocytes # (Manual) INR APTT D-Dimer ABG pH POC ABG pCO2 POC ABG pO2 ABG pO2 ABG HCO3 ABG O2 Saturation ABG Base Excess ABG Hemoglobin ABG Oxyhemoglobin ABG Potassium ABG Chloride ABG Glucose Oxyhemoglobin Potassium Chloride 96.3 L Carbon Dioxide 34 H BUN Creatinine 0.3 L Glucose POC Glucose 124 H Lactic Acid Calcium Phosphorus Magnesium AST ALT Alkaline Phosphatase Ammonia Troponin T Total Protein Albumin Triglycerides HDL Cholesterol Lipase Arterial Blood Glucose Arterial Blood Ionized Calcium Acetaminophen Crossmatch 03/31/21 04/01/21 04/01/21 17:45 00:17 04:27 WBC 20.2 H RBC Hgb 9.1 L Hct MCV MCH 23 L MCHC 28 L RDW 22.3 H Plt Count 454 H Seg Neuts % (Manual) Lymphocytes % (Manual) Monocytes % (Manual) Nucleated RBC % Seg Neutrophils # Man Lymphocytes # (Manual) Monocytes # (Manual) INR APTT D-Dimer ABG pH POC ABG pCO2 POC ABG pO2 ABG pO2 ABG HCO3 ABG O2 Saturation ABG Base Excess ABG Hemoglobin ABG Oxyhemoglobin ABG Potassium ABG Chloride ABG Glucose Oxyhemoglobin Potassium Chloride Carbon Dioxide BUN Creatinine Glucose POC Glucose 130 H 108 H Lactic Acid Calcium Phosphorus Magnesium AST ALT Alkaline Phosphatase Ammonia Troponin T Total Protein Albumin Triglycerides HDL Cholesterol Lipase Arterial Blood Glucose Arterial Blood Ionized Calcium Acetaminophen Crossmatch 04/01/21 04/01/21 04/01/21 04:27 11:56 16:19 WBC RBC Hgb Hct MCV MCH MCHC RDW Plt Count Seg Neuts % (Manual) Lymphocytes % (Manual) Monocytes % (Manual) Nucleated RBC % Seg Neutrophils # Man Lymphocytes # (Manual) Monocytes # (Manual) INR APTT D-Dimer ABG pH POC ABG pCO2 POC ABG pO2 ABG pO2 ABG HCO3 ABG O2 Saturation ABG Base Excess ABG Hemoglobin ABG Oxyhemoglobin ABG Potassium ABG Chloride ABG Glucose Oxyhemoglobin Potassium Chloride Carbon Dioxide 31 H BUN Creatinine 0.4 L Glucose POC Glucose 112 H 172 H Lactic Acid Calcium Phosphorus Magnesium AST ALT Alkaline Phosphatase Ammonia Troponin T Total Protein Albumin Triglycerides HDL Cholesterol Lipase Arterial Blood Glucose Arterial Blood Ionized Calcium Acetaminophen Crossmatch 04/01/21 04/02/21 04/02/21 23:19 04:30 04:30 WBC 17.3 H RBC Hgb 8.7 L Hct 30.1 L MCV MCH 23 L MCHC 29 L RDW 22.4 H Plt Count 521 H Seg Neuts % (Manual) Lymphocytes % (Manual) Monocytes % (Manual) Nucleated RBC % Seg Neutrophils # Man Lymphocytes # (Manual) Monocytes # (Manual) INR APTT D-Dimer ABG pH POC ABG pCO2 POC ABG pO2 ABG pO2 ABG HCO3 ABG O2 Saturation ABG Base Excess ABG Hemoglobin ABG Oxyhemoglobin ABG Potassium ABG Chloride ABG Glucose Oxyhemoglobin Potassium Chloride Carbon Dioxide 33 H BUN Creatinine 0.4 L Glucose POC Glucose 112 H Lactic Acid Calcium Phosphorus Magnesium AST ALT Alkaline Phosphatase Ammonia Troponin T Total Protein Albumin Triglycerides HDL Cholesterol Lipase Arterial Blood Glucose Arterial Blood Ionized Calcium Acetaminophen Crossmatch
[2021-04-02] MEDS: FAMOTIDINE 20 MG TAB FEEDTUBE SCH ×2 (13:12→22:00)
[2021-04-02] MEDS: ALPRAZolam 1 MG TAB PO PRN (13:12)
[2021-04-02] MEDS: DOCUSATE SODIUM 100 MG/10 ML ORAL LIQD PO SCH ×2 (13:13→21:53)
[2021-04-02] MEDS: SENNOSIDES/DOCUSATE SODIUM 8.6/50 MG TAB FEEDTUBE SCH ×2 (13:13→21:54)
[2021-04-02] MEDS: busPIRone 5 MG TAB PO SCH ×2 (13:13→21:53)
[2021-04-02] MEDS: ARFORMOTEROL 15 MCG/2 ML NEBU IH SCH ×2 (13:30→20:28)
[2021-04-02] MEDS: BUDESONIDE 0.5 MG/2 ML NEBU IH SCH ×2 (13:30→20:28)
--- NOTE | 2021-04-02 14:38 | Progress Note ---
Assessment and Plan Assessment and plan: This is a 50-year-old female with COPD with oxygen dependence, DM, severe anxiety, GERD, HLD, HTN and PAGE admitted with SVT and hypertensive urgency. Neuro: Hepatic/metabolic encephalopathy, h/o severe anxiety, depression -Admit ammonia 116, 03/09 ammonia 26 -Precedex gtt -xanax, ativan, haldol and morphine prn -Buspar PO. home cymbalta on hold (cannot crush) -Psych consulted, appreciate recommendations -Avoid delirium -Maintain sleep-wake cycle -SAT when appropriate -CT head on admit with no acute findings -Repeat CT head d/t AMS-> no acute changes Cardio: Hypertensive emergency (resolved), s/p A. fib with RVR and SVT, h/o HTN, HLD -s/p X2 doses of adenosine in the ED -Cardiology consulted, appreciate recommendations -PO metoprolol BID -Resume home statin -Blood pressure monitoring per protocol -Echocardiogram 10/2020 showed EF of 50 to 55%, mild diastolic dysfunction, trace to mild tricuspid regurgitation, mild pulmonary hypertension, RVSP 45 mmHg Resp : Acute on chronic respiratory failure, h/o COPD and PAGE -CCM consulted, appreciate recommendations -CTA chest shows no CT evidence of pulmonary embolism, small right and trace left pleural effusion, upper lobe predominant emphysema -Intubated on 03/17 with 7.00 ETT at 20 at the lips and extubated 03/22 but reintubated shortly after; Self-extubated on 03/29 -weaned to BiPAP q hs, Optiflow in AM -VAP bundle -SPO2 monitoring -Methylprednisone weaning-> PO will be slow wean -nebs per CCM GI: Transaminitis (resolving), h/o chronic constipation -NTR consulted, appreciate recommendations -RUQ US shows right hydroureteronephrosis and possible gallbladder sludge or gallstones -Renal ultrasound shows mild right-sided hydronephrosis with parenchymal thinning and trace perinephric fluid. -need to follow up outpatient -PPI -BR: senakot S and colace, prn mom -BM 04/01 -24 hours +912 mL -Failed bedside swallow eval -Reinserted NGT -resume TF; ST will reevaluate : Hypochlormia, mild right hydroureteronephrosis -Trend BMP -FWF with TF -Strict I & Os -Wallis -Renal ultrasound shows mild right-sided hydronephrosis with parenchymal thinning and trace perinephric fluid. Endo: h/o DM -Avoid hypoglycemia -SSI -Accucheck q 6hrs -Lantus -titrate as needed Heme: Anemia, Leukocytosis, h/o Microcytic anemia -Trend CBC -Transfuse for hbg <7 -s/p 2unit PRBCs -SCDs to BLE while in bed -Lovenox subq ID: Gram positive cocci in tracheal aspirate -02/25 tracheal aspirate with few gram-positive cocci -s/p Levaquin (03/18-) -Trend WBC and fever curve -Repeat blood cultures and sputum culture NGTD -Trend WBC and fever curve The high probability of a clinically significant, sudden or life threatening deterioration of the [pulm/cv] system(s) required my full and direct attention, intervention and personal management. The aggregate critical care time was [60] minutes. This time is in addition to time spent performing reported procedures but includes the following: [x] Data Review and interpretation [x] Patient assessment and monitoring of vital signs [x] Documentation [x] Medication orders and management Disposition Plan: icu Total Time Spent with Patient (Minutes): 60 History Interval history: This is a 60-year-old female with COPD with oxygen dependence currently with palliative care, DM, former nicotine abuse, severe anxiety, GERD, HLD, HTN and PAGE presented to emergency department on 03/17 via EMS with complaints of shortness of breath. On arrival of EMS patient was found to be in SVT with a heart rate of about 200 and blood pressure to be quite elevated with systolic in 200s. She was given 6 mg of adenosine without significant changes subsequently given 12 mg of adenosine with improvement of her heart rate. Upon arrival to the emergency department patient was found to be in atrial fibrillation with RVR and dyspneic. Work-up in the emergency department revealed leukocytosis, lactic acidosis, transaminitis, hypoalbuminemia and a troponin leak. CXR, CT a chest and CT head were unremarkable. Patient was admitted to the hospitalist service with consults to [facility] and cardiology for further work-up of acute on chronic respiratory failure, SVT and hypertensive urgency. 03/18/2021: Patient is intubated and on vent support, Patient is in sinus tachycardia 03/19: COVID-19 PCR negative, remains on ventilatory support, Versed drip changed to propofol. No acute events reported overnight. Tracheal aspirate with few gram-positive Cocci. This afternoon, patient went in to the 150s, giving 500 mL NS bolus and fentanyl push to see if it pain related. If persists then will order prn Ativan per Dr. Gage recommendation. 03/20: Restarted on home metoprolol and abdominal ultrasound showed right hydronephrosis. Abd US shows right hydroureteronephrosis and will obtain a dedicated renal US. She seems to more comfortable on propofol and fentanyl 03/21: Patient's FiO2 had to be decreased overnight due to hypoxia and tachycardia. Hyperkalemia noted and given Kayexalate. 1 unit PRBC for hemoglobin 6.8. [facility] plans to extubate tomorrow. Increase in Lantus. 03/22: Transfuse one unit prbc, failed SBT in the AM d/t hypertension. [facility] extubated the patient but she was reintubated within [address] head ordered and pending read. Given kionex x2 for hyperkalemia 03/23: This morning patient was only on Precedex drip and overnight she had agitation, hypertension and tachycardia. RN instructed to place fentanyl drip. Increase in Lantus for better glucose control. Will remove Wallis today. 03/24/2021: no acute events reported overnight. Patient remains intubated and is currently on fentanyl and Precedex. Increase in Lantus due to hyperglycemia. 03/25: no acute events overnight. increase in lantus and decreased steroids today. 04/02: Bipap q hs and optiflow in the AM, remains on precedex. Psych consulted today. Hospitalist Physical - Constitutional Vitals: Temp Pulse Resp BP Pulse Ox 97.9 F 104 H 32 H 117/76 99 04/02/21 08:00 04/02/21 11:31 04/02/21 11:31 04/02/21 11:31 04/02/21 11:31 General appearance: Present: no acute distress, obese - EENT Eyes: Present: PERRL, EOM intact ENT: hearing intact, clear oral mucosa, dentition normal - Neck Neck: Present: normal ROM - Respiratory Respiratory effort: normal Respiratory: bilateral: diminished - Cardiovascular Rhythm: regular Heart Sounds: Present: S1 & S2. Absent: systolic murmur, diastolic murmur - Extremities Extremities: no ischemia, pulses intact, pulses symmetrical, normal temperature, normal color Peripheral Pulses: within normal limits - Abdominal General gastrointestinal: soft, non-tender, non-distended, normal bowel sounds - Integumentary Integumentary: Present: warm, dry - Psychiatric Psychiatric: cooperative, agitated - Neurologic Neurologic: CNII-XII intact, no focal deficits, moves all extremities - Allied Health Allied health notes reviewed: nursing, ST, RT, social work HEART Score - HEART Score Troponin: Troponin T < 0.010 ng/mL (0.00-0.029) 03/29/21 09:24 Results - Labs CBC & Chem 7: 04/02/21 04:30 04/02/21 04:30 Labs: Laboratory Last Values WBC 17.3 K/mm3 (4.5-11.0) H 04/02/21 04:30 RBC 3.74 M/mm3 (3.65-5.03) 04/02/21 04:30 Hgb 8.7 gm/dl (10.1-14.3) L 04/02/21 04:30 Hct 30.1 % (30.3-42.9) L 04/02/21 04:30 MCV 81 fl (79-97) 04/02/21 04:30 MCH 23 pg (28-32) L 04/02/21 04:30 MCHC 29 % (30-34) L 04/02/21 04:30 RDW 22.4 % (13.2-15.2) H 04/02/21 04:30 Plt Count 521 K/mm3 (140-440) H 04/02/21 04:30 [place] % (Auto) Battery Charger Tester 03/24/21 08:03 Add Manual Diff Complete 03/26/21 05:35 Total Counted 100 03/26/21 05:35 Seg Neuts % (Manual) 72.0 % (40.0-70.0) H 03/26/21 05:35 Band Neutrophils % 5.0 % 03/26/21 05:35 Lymphocytes % (Manual) 6.0 % (13.4-35.0) L 03/26/21 05:35 Reactive Lymphs % (Man) 5.0 % 03/19/21 04:59 Monocytes % (Manual) 8.0 % (0.0-7.3) H 03/26/21 05:35 Metamyelocytes % 3.0 % 03/26/21 05:35 Myelocytes % 5.0 % 03/26/21 05:35 Promyelocytes % 1.0 % 03/26/21 05:35 Nucleated RBC % Not Reportable 03/26/21 05:35 Seg Neutrophils # Man 14.4 K/mm3 (1.8-7.7) H 03/26/21 05:35 Band Neutrophils # 1.0 K/mm3 03/26/21 05:35 Lymphocytes # (Manual) 1.2 K/mm3 (1.2-5.4) 03/26/21 05:35 Abs React Lymphs (Man) 0.0 K/mm3 03/26/21 05:35 Monocytes # (Manual) 1.6 K/mm3 (0.0-0.8) H 03/26/21 05:35 Eosinophils # (Manual) 0.0 K/mm3 (0.0-0.4) 03/26/21 05:35 Basophils # (Manual) 0.0 K/mm3 (0.0-0.1) 03/26/21 05:35 Metamyelocytes # 0.6 K/mm3 03/26/21 05:35 Myelocytes # 1.0 K/mm3 03/26/21 05:35 Promyelocytes # 0.2 K/mm3 03/26/21 05:35 Blast Cells # 0.0 K/mm3 03/26/21 05:35 WBC Morphology Not Reportable 03/26/21 05:35 Hypersegmented Neuts Not Reportable 03/26/21 05:35 Hyposegmented Neuts Not Reportable 03/26/21 05:35 Hypogranular Neuts Not Reportable 03/26/21 05:35 Smudge Cells Not Reportable 03/26/21 05:35 Toxic Granulation Not Reportable 03/26/21 05:35 Toxic Vacuolation Not Reportable 03/26/21 05:35 Dohle Bodies Not Reportable 03/26/21 05:35 Pelger-Huet Anomaly Not Reportable 03/26/21 05:35 Florentino Rods Not Reportable 03/26/21 05:35 Platelet Estimate Consistent w auto 03/26/21 05:35 Clumped Platelets Not Reportable 03/26/21 05:35 Plt Clumps, EDTA Not Reportable 03/26/21 05:35 Large Platelets 1+ 03/26/21 05:35 Giant Platelets Not Reportable 03/26/21 05:35 Platelet Satelliting Not Reportable 03/26/21 05:35 Plt Morphology Comment Not Reportable 03/26/21 05:35 RBC Morphology Not Reportable 03/26/21 05:35 Dimorphic RBCs Not Reportable 03/26/21 05:35 Polychromasia 1+ 03/26/21 05:35 Hypochromasia 2+ 03/26/21 05:35 Poikilocytosis 1+ 03/26/21 05:35 Anisocytosis 2+ 03/26/21 05:35 Microcytosis Not Reportable 03/26/21 05:35 Macrocytosis Not Reportable 03/26/21 05:35 Spherocytes Not Reportable 03/26/21 05:35 Pappenheimer Bodies Not Reportable 03/26/21 05:35 Sickle Cells Not Reportable 03/26/21 05:35 Target Cells 1+ 03/26/21 05:35 Tear Drop Cells 1+ 03/26/21 05:35 Ovalocytes Not Reportable 03/26/21 05:35 Stomatocytes 1+ 03/26/21 05:35 Helmet Cells Not Reportable 03/26/21 05:35 Mabry-[place] Bodies Not Reportable 03/26/21 05:35 [place] Rings Not Reportable 03/26/21 05:35 Marcelo Cells Not Reportable 03/26/21 05:35 Bite Cells Not Reportable 03/26/21 05:35 Crenated Cell Not Reportable 03/26/21 05:35 Elliptocytes Not Reportable 03/26/21 05:35 Acanthocytes (Spur) Not Reportable 03/26/21 05:35 Rouleaux Not Reportable 03/26/21 05:35 Hemoglobin C Crystals Not Reportable 03/26/21 05:35 Schistocytes 1+ 03/26/21 05:35 Malaria parasites Not Reportable 03/26/21 05:35 Maykel Bodies Not Reportable 03/26/21 05:35 Hem Pathologist Commnt No 03/26/21 05:35 PT 12.6 Sec. (12.2-14.9) 03/17/21 17:37 INR 0.85 (0.87-1.13) L 03/17/21 17:37 APTT 23.3 Sec. (24.2-36.6) L 03/17/21 17:37 D-Dimer 947.92 ng/mlDDU (0-234) H 03/17/21 17:37 ABG pH 7.477 (7.320-7.450) H 03/24/21 08:57 POC ABG pCO2 56.9 mmHg (32.0-48.0) H 03/24/21 08:57 ABG pCO2 72.7 mm Hg 03/23/21 04:50 POC ABG pO2 100.6 mmHg (83-108) 03/24/21 08:57 ABG pO2 70.7 mm Hg (80.0-90.0) L 03/23/21 04:50 POC ABG HCO3 41.1 03/24/21 08:57 ABG HCO3 41.7 mmol/L (20.0-26.0) H 03/23/21 04:50 ABG O2 Saturation 98.3 (0-100) 03/24/21 08:57 ABG O2 Content 7.8 (0.0-44) 03/23/21 04:50 POC ABG Base Excess 15.8 03/24/21 08:57 ABG Base Excess 15.2 mmol/L (-2.0-3.0) H 03/23/21 04:50 ABG Hemoglobin 8.0 (12.0-17.5) L 03/24/21 08:57 ABG Oxyhemoglobin 96.8 (94-98) 03/24/21 08:57 ABG Carboxyhemoglobin 1.7 % (0.0-5.0) 03/23/21 04:50 ABG Methemoglobin 0.3 (0.0-1.5) 03/24/21 08:57 ABG Sodium 139.1 mmol/L (136.0-145.0) 03/24/21 08:57 ABG Potassium 3.9 mmol/L (3.40-4.50) 03/24/21 08:57 ABG Chloride 93.0 mmol/L (98-107) L 03/24/21 08:57 ABG Glucose 328 mg/dL (65-95) H 03/24/21 08:57 Oxyhemoglobin 96.9 % (95.0-99.0) 03/23/21 04:50 Carboxyhemoglobin 1.2 (0.5-1.5) 03/24/21 08:57 FiO2 40 % 03/23/21 04:50 FiO2 % 40 03/24/21 08:57 Sodium 144 mmol/L (137-145) 04/02/21 04:30 Potassium 4.2 mmol/L (3.6-5.0) 04/02/21 04:30 Chloride 100.6 mmol/L (98-107) 04/02/21 04:30 Carbon Dioxide 33 mmol/L (22-30) H 04/02/21 04:30 Anion Gap 15 mmol/L 04/02/21 04:30 BUN 13 mg/dL (7-17) 04/02/21 04:30 Creatinine 0.4 mg/dL (0.6-1.2) L 04/02/21 04:30 Estimated GFR > 60 ml/min 04/02/21 04:30 BUN/Creatinine Ratio 33 % 04/02/21 04:30 Glucose 70 mg/dL (65-100) 04/02/21 04:30 POC Glucose 88 mg/dL (70-105) 04/02/21 12:28 Lactic Acid 4.00 mmol/L (0.7-2.0) H* 03/17/21 23:36 Calcium 8.7 mg/dL (8.4-10.2) 04/02/21 04:30 Phosphorus 4.50 mg/dL (2.5-4.5) 03/31/21 04:41 Magnesium 2.20 mg/dL (1.7-2.3) 03/31/21 04:41 Total Bilirubin 0.30 mg/dL (0.1-1.2) 03/26/21 05:35 Direct Bilirubin < 0.2 mg/dL (0-0.2) 03/19/21 12:00 Indirect Bilirubin 0.1 mg/dL 03/19/21 12:00 AST 35 units/L (5-40) 03/26/21 05:35 ALT 169 units/L (7-56) H 03/26/21 05:35 Alkaline Phosphatase 138 units/L (35-129) H 03/26/21 05:35 Ammonia 26.0 umol/L (25-60) 03/19/21 12:00 Total Creatine Kinase 123 units/L (30-135) 03/29/21 09:24 CK-MB (CK-2) 1.5 ng/mL (0.0-4.0) 03/29/21 09:24 CK-MB (CK-2) Rel Index 1.2 (0-4) 03/29/21 09:24 Troponin T < 0.010 ng/mL (0.00-0.029) 03/29/21 09:24 NT-Pro-B Natriuret Pep 576.0 pg/mL (0-900) 03/17/21 17:36 Total Protein 5.5 g/dL (6.3-8.2) L 03/26/21 05:35 Albumin 3.2 g/dL (3.9-5) L 03/26/21 05:35 Albumin/Globulin Ratio 1.4 % 03/26/21 05:35 Triglycerides 189 mg/dL (2-149) H 03/22/21 04:39 Cholesterol 191 mg/dL (50-199) 03/17/21 17:36 LDL Cholesterol Direct 80 mg/dL (50-130) 03/17/21 17:36 HDL Cholesterol 73 mg/dL (40-59) H 03/17/21 17:36 Cholesterol/HDL Ratio 2.61 % 03/17/21 17:36 Amylase 78 units/L (27-131) 03/19/21 Unknown Lipase 12 units/L (13-60) L 03/19/21 Unknown TSH 3.510 mlU/mL (0.270-4.200) 03/17/21 22:57 Arterial Blood Glucose 328 mg/dL (65-95) H 03/24/21 08:57 Arterial Blood Ionized Calcium 4.5 mg/dL (4.6-5.3) L 03/24/21 08:57 Urine Color [place] (Yellow) 03/17/21 19:42 Urine Turbidity Slightly-cloudy (Clear) 03/17/21 19:42 Urine pH 7.0 (5.0-7.0) 03/17/21 19:42 Ur Specific [place] 1.015 (1.003-1.030) 03/17/21 19:42 Urine Protein 100 mg/dl mg/dL (Negative) 03/17/21 19:42 Urine Glucose (UA) Neg mg/dL (Negative) 03/17/21 19:42 Urine Ketones 20 mg/dL (Negative) 03/17/21 19:42 Urine Blood Sm (Negative) 03/17/21 19:42 Urine Nitrite Neg (Negative) 03/17/21 19:42 Urine Bilirubin Neg (Negative) 03/17/21 19:42 Urine Urobilinogen 2.0 mg/dL (<2.0) 03/17/21 19:42 Ur Leukocyte Esterase Neg (Negative) 03/17/21 19:42 Urine WBC (Auto) 4.0 /HPF (0.0-6.0) 03/17/21 19:42 Urine RBC (Auto) 6.0 /HPF (0.0-6.0) 03/17/21 19:42 U Epithel Cells (Auto) 5.0 /HPF (0-13.0) 03/17/21 19:42 Urine Bacteria (Auto) 1+ /HPF (Negative) 03/17/21 19:42 Urine Mucus 1+ /HPF 03/17/21 19:42 Urine Yeast (Budding) Few /HPF 03/17/21 19:42 Acetaminophen 5.0 ug/mL (10.0-30.0) L 03/18/21 23:07 Coronavirus (PCR) Negative (Negative) 03/19/21 Unknown Blood Type A POSITIVE 03/29/21 09:24 Antibody Screen Negative 03/29/21 09:24 Crossmatch See Detail 03/29/21 09:24 Wall[place]/IV: Voiding Method External Female Catheter Active Medications - Current Medications Current Medications: Generic Name Dose Route Start Last Admin Trade Name Freq PRN Reason Stop Dose Admin Acetaminophen 650 mg 03/18/21 00:05 Acetaminophen 325 Mg Tab PO Q6H PRN Pain MILD(1-3)/Fever >100.5/TOVAR Albuterol 2.5 mg 03/22/21 08:00 Albuterol 2.5 Mg/3 Ml Nebu IH Q6H PRN Wheezing Alprazolam 1 mg 03/26/21 10:53 04/02/21 13:12 Alprazolam 1 Mg Tab PO 1 mg Q8H PRN Administration AGITATION Lipase/Protease/Amylase 1 each 03/19/21 18:16 Lipase 10,500/Protease 25,000/Amylase 43,750 (Units) Dr Newman FEEDTUBE PRN PRN For Clogged Feeding Tube Arformoterol Tartrate 15 mcg 03/24/21 11:00 04/01/21 20:47 Arformoterol 15 Mcg/2 Ml Nebu IH 15 mcg Q12HRT BUTCH Administration Atorvastatin Calcium 10 mg 03/19/21 22:00 04/01/21 22:45 Atorvastatin 10 Mg Tab PO Not Given QHS BUTCH Budesonide 0.5 mg 03/24/21 11:00 04/01/21 20:47 Budesonide 0.5 Mg/2 Ml Nebu IH 0.5 mg Q12HRT BUTCH Administration Buspirone HCl 5 mg 03/25/21 14:00 04/02/21 13:13 Buspirone 5 Mg Tab PO 5 mg BID BUTCH Administration Dextrose 0 ml 03/17/21 23:58 03/31/21 05:16 Dextrose 50% In Water (25gm) 50 Ml Syringe IV 10 ml Q30MIN PRN Administration Hypoglycemia Protocol Docusate Sodium 100 mg 03/23/21 10:00 04/02/21 13:13 Docusate Sodium 100 Mg/10 Ml Oral Liqd PO Not Given BID BUTCH Famotidine 20 mg 03/20/21 22:00 04/02/21 13:12 Famotidine 20 Mg Tab FEEDTUBE 20 mg BID BUTCH Administration Fentanyl 50 mcg 03/26/21 10:08 04/02/21 02:03 Fentanyl 100 Mcg/2 Ml Inj IV 50 mcg Q2H PRN Administration Pain, Moderate (4-6) Haloperidol Lactate 5 mg 03/30/21 09:52 04/01/21 08:33 Haloperidol Lactate 5 Mg/1 Ml Inj IV 5 mg Q6H PRN Administration Agitation Heparin Sodium (Porcine) 5,000 unit 03/18/21 06:00 04/02/21 13:12 Heparin 5,000 Unit/1 Ml Vial SUB-Q 5,000 unit Q8HR BUTCH Administration Hydralazine HCl 5 mg 03/29/21 10:56 Hydralazine 20 Mg/1 Ml Inj IV Q4HR PRN SBP >160 Hydrophilic Ointment 1 applic 03/17/21 17:35 Lip Therapy Vaseline TP Q2HR PRN Dry Lips Dexmedetomidine HCl 400 mcg/ 104 mls @ 4.306 mls/hr 03/21/21 13:00 04/02/21 13:26 Sodium Chloride IV 0.6 mcg/kg/hr TITRATE BUTCH 12.917 mls/hr Administration Protocol 0.2 MCG/KG/HR Dextrose/Sodium Chloride 1,000 mls @ 75 mls/hr 03/30/21 08:00 04/02/21 03:43 D5/0.45ns IV 75 mls/hr DIRECT BUTCH Administration Insulin Human Lispro 0 unit 03/19/21 12:00 04/02/21 13:16 Insulin Lispro 100 Unit/Ml SUB-Q Not Given Q6HR COUNTS INCLUDE 234 BEDS AT [facility] Protocol Lorazepam 0.5 mg 03/30/21 09:53 04/01/21 16:04 Lorazepam 2 Mg/Ml Vial IV 0.5 mg Q4H PRN Administration Anxiety Magnesium Hydroxide 30 ml 03/18/21 00:05 03/24/21 09:36 Magnesium Hydroxide (Mom) Oral Liqd Udc PO 30 ml Q4H PRN Administration Constipation Methylprednisolone Sodium Succinate 20 mg 03/31/21 10:00 04/02/21 12:35 Methylprednisolone Sod Succinate 40 Mg/1 Ml Inj IV 20 mg Q24HR BUTCH Administration Metoprolol Tartrate 25 mg 03/20/21 22:00 04/02/21 12:00 Metoprolol Tartrate 25 Mg Tab PO 25 mg BID BUTCH Administration Morphine Sulfate 2 mg 03/18/21 00:05 Morphine 2 Mg/1 Ml Inj IV Q4H PRN Pain, Moderate (4-6) Morphine Sulfate 4 mg 03/18/21 00:05 04/01/21 09:27 Morphine 4 Mg/1 Ml Inj IV 4 mg Q4H PRN Administration Pain , Severe (7-10) Multi-Ingred Cream/Lotion/Oil/Oint 1 applic 03/17/21 17:35 Mineral Oil/Petrolatum, White Ophth Oint 3.5 Gm OU Q4HR PRN Dry Eye(s) Senna/Docusate Sodium 1 tab 03/17/21 22:00 04/02/21 13:13 Sennosides/Docusate Sodium 8.6/50 Mg Tab FEEDTUBE Not Given BID BUTCH Simple Syrup 15 ml 03/19/21 18:16 Simple Syrup 15 Ml FEEDTUBE PRN PRN Hypoglycemia Simple Syrup 30 ml 03/19/21 18:16 Simple Syrup 15 Ml FEEDTUBE PRN PRN Hypoglycemia Sodium Bicarbonate 325 mg 03/19/21 18:16 Sodium Bicarbonate 325 Mg Tab FEEDTUBE PRN PRN For Clogged Feeding Tube Sodium Chloride 10 ml 03/18/21 10:00 04/02/21 13:16 Sodium Chloride 0.9% 10 Ml Flush Syringe IV 10 ml BID BUTCH Administration Sodium Chloride 10 ml 03/17/21 23:58 03/22/21 23:20 Sodium Chloride 0.9% 10 Ml Flush Syringe IV 10 ml PRN PRN Administration LINE FLUSH Nutrition/Malnutrition Assess - Dietary Evaluation Nutrition/Malnutrition Findings: Nutrition Notes Start: 03/18/21 09:46 Freq: Status: Active Protocol: Document 03/30/21 13:05 SHELBI (Rec: 03/30/21 13:17 [email or web address] [id number]) Nutrition Notes Initial or Follow up Reassessment Current Diagnosis COPD,Diabetes,Hypertension, Respiratory Failure, Hyperlipidemia Other Pertinent Diagnosis SVT, Severe anxiety Current Diet TF - Promote at 70ml/hr Labs/Tests Phos 4.7 BG since last assessment: 291, 311, 348, 289, 197, 310, 295, 194 Pertinent Medications Lantus, Solumedrol, Colace, D5 1/2NS at 75ml/hr Height 5 ft 6 in Weight 82.8 kg [place] Body Weight (kg) 59.09 BMI 29.5 Weight Status Overweight Subjective/Other Information Pt self-extubated yesterday; placed on continuous BiPap support. TF off at time of visit (12:24). Burn Absent Trauma Absent #1 Nutrition Diagnosis Inadequate oral intake Diagnosis Progress(for reassessment Continues documentation) Is patient on ventilator? No Is Patient Ambulatory and/or Out of Bed No REE-([place]-St. Jeor-confined to bed) 7830.656 Calculation Used for Recommendations [place]-St Jeor Additional Notes Pro needs 1.2-2g/k-166g/ day Fluid needs 1ml/kcal Nutrition Intervention Nutrition Support: Change TF formula to Vital AF 1.2 at 55ml/hr with 85ml water flush q4h. Kcal 1,584 Protein (gm) 99 Carbohydrates (gm) 146 Fat (gm) 71 Fluid (mL) 1,071 Fiber (gm) 7 Goal #1 Resume TF to meet nutrient needs Follow-Up By: 04/02/21 Additional Comments F/U: TF re-start, TF formula change/tolerance, resp status, BG labs
[2021-04-02] MEDS: MORPHINE 4 MG/1 ML INJ IV PRN (17:19)
[2021-04-03] MEDS: INSULIN LISPRO 100 UNIT/ML SUB-Q SCH ×4 (06:26→17:51)
[2021-04-03] MEDS: HEPARIN 5,000 UNIT/1 ML VIAL SUB-Q SCH ×3 (06:32→21:54)
[2021-04-03] MEDS: BUDESONIDE 0.5 MG/2 ML NEBU IH SCH ×2 (08:56→19:48)
[2021-04-03] MEDS: ARFORMOTEROL 15 MCG/2 ML NEBU IH SCH ×2 (08:56→19:48)
--- NOTE | 2021-04-03 09:36 | Progress Note ---
Assessment and Plan 60 y/o female with acute on chronic respiratory failure, SVT and HTN likely all related to anxiety and stress 04/03/21: Oxygen requirement is acceptable for hospice. Awaiting Lise ernandez for anxiety control. Ok with increasing Buspar. Hopeful home with hospice as early as today but more reasonable would be tomorrow or . 04/02/21: Patient has verbally expressed that she wants to go home and she wants to go home with home hospice. Patient is already on [facility] palliative service and can transition to hospice. Awaiting to see how much oxygen we are able to provide for patient. She should be able to be weaned to nasal cannula but await to hear back from [place]. Per [facility] can do 50 liters and 50%. Patient currently on 40 and 50 with sat of 100. Await psych recommendations. 03/30/21: Currently still on bipap. No HFNC units available in the house. Transfused blood on yesterday. But no CBC checked today. Patient states that she is tired and has expressed this to several of the staff. She is currently on [facility] but my plan is to discuss hospice with her and her . Dropping steroids down starting tomorrow. Continue to wean Oxygen as tolerated. If possible keep in either ICU or step down over the weekend. 03/29/21: Currently on bipap. Good volumes and good sats. Still with some mild distress but stable. Will continue bipap therapy for now. Tomorrow will need to place psych consult if able to stay of the vent and weaned from continuous bipap to help us address anxiety and depression. IMS will likely want to transfuse PRBC's. Would give slowly if done. Discussed with [employer] and Bedside nurse, will restart precedex at low dose to help with anxiety. Will alert . 03/28/21: Continue PSV but she isnt ready for extubation today. Not able to t olerates PSV on yesterday so today is first real test. Dropped steroids to daily starting today. UOP is stable, but she is grossly positive. If oxygen requirement increases, check CXR and may need to consider lasix. Continue PSV for as long as possible today but definitely rest overnight. Guarded prognosis. May eventually need trach. 03/27/21: Monitor renal function and urine output closely. Not sure why K continues to be elevated despite daily correction therapy. Attempt PSV off fent but can continue precedex. Will see how patient looks tomorrow but still may not be a candidate for extubation. Drop steroids to daily starting tomorrow. 03/26/21: Continue daily PSV trials. Agree with my partner as I would like another trial of routine extubation before committing to trach. Discussed with family and patient at bedside this am. Continue solumedrol 40q12. IMS restarted buspar. WIll have psych see and evaluate to help with anxiety and depression once extubated. Guarded prognosis. 03/22/21: Please see event note for details. Planned to extubate today and wean steroids. 03/21/21: Echo given continued tachycardia despite adequate oxygenation. Can drop steroids to 40q8. 03/19/21: Continue sedation. Wean FiO2 for sats >88%. consider weaning steroid tomorrow. Follow up RUQ and trend LFT's 1. Wean Versed and place on Diprovan drip 2. Will give Fent 100 IV x1 now and order drip if needed for pain 3. Spoke with over the phone to get more history. Sounds like a panic attack not aborted by xanax therapy. Did check Tylenol level as patient has been in pain from fall 4. Elevated LFT's former drinker but confirms she has not been drinking. Ordered RUQ ultrasound and need to repeat LFT's tomorrow 5. Reviewed cards note, and they do not want to treat tachycardia or elevated bp, likely needs more sedation Guarded prognosis CCT 31 minutes. Subjective Date of service: 04/03/21 Principal diagnosis: Atrial fibrillation with RVR, respiratory failure Interval history: No acute events. On HFNC. Stable. Hospice reaching out to today Objective Vital Signs - 12hr 04/02/21 04/02/21 04/02/21 22:01 22:31 23:01 Temperature Pulse Rate 81 106 H Pulse Rate [ Bilateral] Pulse Rate [ From Monitor] Respiratory 16 18 18 Rate Respiratory Rate [Bilateral ] Blood Pressure 93/56 122/70 151/80 O2 Sat by Pulse 100 99 Oximetry 04/02/21 04/02/21 04/03/21 23:31 23:46 00:00 Temperature 98 F Pulse Rate 97 H 69 Pulse Rate [ Bilateral] Pulse Rate [ 69 From Monitor] Respiratory 23 20 Rate Respiratory Rate [Bilateral ] Blood Pressure 151/80 O2 Sat by Pulse 98 100 Oximetry 04/03/21 04/03/21 04/03/21 00:01 00:08 00:31 Temperature Pulse Rate 75 90 70 Pulse Rate [ Bilateral] Pulse Rate [ From Monitor] Respiratory 16 17 16 Rate Respiratory Rate [Bilateral ] Blood Pressure 151/80 151/80 O2 Sat by Pulse 100 100 100 Oximetry 04/03/21 04/03/21 04/03/21 01:00 01:30 02:01 Temperature Pulse Rate 74 68 69 Pulse Rate [ Bilateral] Pulse Rate [ From Monitor] Respiratory 14 13 18 Rate Respiratory Rate [Bilateral ] Blood Pressure 79/54 99/58 72/43 O2 Sat by Pulse 100 100 100 Oximetry 04/03/21 04/03/21 04/03/21 02:31 03:00 03:28 Temperature 98.4 F Pulse Rate 72 70 Pulse Rate [ Bilateral] Pulse Rate [ From Monitor] Respiratory 18 15 Rate Respiratory Rate [Bilateral ] Blood Pressure 93/52 90/55 O2 Sat by Pulse 100 100 Oximetry 04/03/21 04/03/21 04/03/21 03:30 04:00 04:30 Temperature Pulse Rate 70 74 69 Pulse Rate [ Bilateral] Pulse Rate [ 64 From Monitor] Respiratory 14 15 15 Rate Respiratory Rate [Bilateral ] Blood Pressure 90/58 97/56 98/54 O2 Sat by Pulse 100 100 100 Oximetry 04/03/21 04/03/21 04/03/21 05:00 05:30 06:00 Temperature Pulse Rate 68 68 65 Pulse Rate [ Bilateral] Pulse Rate [ From Monitor] Respiratory 16 16 15 Rate Respiratory Rate [Bilateral ] Blood Pressure 100/56 84/51 86/49 O2 Sat by Pulse 100 100 100 Oximetry 04/03/21 04/03/21 04/03/21 06:30 07:01 07:31 Temperature Pulse Rate 68 95 H 96 H Pulse Rate [ Bilateral] Pulse Rate [ From Monitor] Respiratory 14 18 14 Rate Respiratory Rate [Bilateral ] Blood Pressure 87/53 119/74 108/67 O2 Sat by Pulse 100 100 100 Oximetry 04/03/21 04/03/21 04/03/21 08:00 08:30 08:53 Temperature 98.1 F Pulse Rate 67 77 62 Pulse Rate [ Bilateral] Pulse Rate [ 70 From Monitor] Respiratory 17 13 16 Rate Respiratory Rate [Bilateral ] Blood Pressure 89/54 86/63 86/63 O2 Sat by Pulse 100 100 100 Oximetry 04/03/21 04/03/21 08:56 09:00 Temperature Pulse Rate 63 Pulse Rate [ 85 Bilateral] Pulse Rate [ From Monitor] Respiratory 15 Rate Respiratory 16 Rate [Bilateral ] Blood Pressure 102/52 O2 Sat by Pulse 100 Oximetry Constitutional: other (moderate distress) Eyes: non-icteric ENT: oropharynx moist Neck: supple Effort: normal Ascultation: Bilateral: diminished breath sounds Cardiovascular: regular rate and rhythm (no mrg) Gastrointestinal: normoactive bowel sounds, soft, non-tender, non-distended Extremities: no cyanosis, no edema, pink and warm Neurologic: normal mental status, non-focal exam, pupils equal and round Psychiatric: mood appropriate, affect normal CBC and BMP: 04/02/21 04:30 04/02/21 04:30 ABG, PT/INR, D-dimer: ABG ABG pH 7.477 (7.320-7.450) H 03/24/21 08:57 POC ABG pCO2 56.9 mmHg (32.0-48.0) H 03/24/21 08:57 ABG pCO2 72.7 mm Hg 03/23/21 04:50 POC ABG pO2 100.6 mmHg (83-108) 03/24/21 08:57 ABG pO2 70.7 mm Hg (80.0-90.0) L 03/23/21 04:50 POC ABG HCO3 41.1 03/24/21 08:57 ABG O2 Saturation 98.3 (0-100) 03/24/21 08:57 PT/INR, D-dimer PT 12.6 Sec. (12.2-14.9) 03/17/21 17:37 INR 0.85 (0.87-1.13) L 03/17/21 17:37 D-Dimer 947.92 ng/mlDDU (0-234) H 03/17/21 17:37 Abnormal lab findings: Abnormal Labs 03/17/21 03/17/21 03/17/21 17:36 17:36 17:37 WBC 13.8 H RBC 3.48 L Hgb 7.0 L Hct 26.2 L MCV 75 L MCH 20 L MCHC 27 L RDW 25.4 H Plt Count Seg Neuts % (Manual) Lymphocytes % (Manual) Monocytes % (Manual) Nucleated RBC % 7.0 H Seg Neutrophils # Man 8.7 H Lymphocytes # (Manual) Monocytes # (Manual) INR 0.85 L APTT 23.3 L D-Dimer 947.92 H ABG pH POC ABG pCO2 POC ABG pO2 ABG pO2 ABG HCO3 ABG O2 Saturation ABG Base Excess ABG Hemoglobin ABG Oxyhemoglobin ABG Potassium ABG Chloride ABG Glucose Oxyhemoglobin Potassium Chloride 88.2 L Carbon Dioxide 38 H BUN Creatinine Glucose 129 H POC Glucose Lactic Acid Calcium Phosphorus Magnesium AST 177 H ALT 251 H Alkaline Phosphatase Ammonia Troponin T 0.036 H Total Protein 5.9 L Albumin 3.8 L Triglycerides 173 H HDL Cholesterol 73 H Lipase Arterial Blood Glucose Arterial Blood Ionized Calcium Acetaminophen Crossmatch 03/17/21 03/17/21 03/17/21 18:15 18:40 18:40 WBC RBC Hgb Hct MCV MCH MCHC RDW Plt Count Seg Neuts % (Manual) Lymphocytes % (Manual) Monocytes % (Manual) Nucleated RBC % Seg Neutrophils # Man Lymphocytes # (Manual) Monocytes # (Manual) INR APTT D-Dimer ABG pH POC ABG pCO2 POC ABG pO2 ABG pO2 94.4 H ABG HCO3 44.8 H ABG O2 Saturation ABG Base Excess 16.6 H ABG Hemoglobin ABG Oxyhemoglobin ABG Potassium ABG Chloride ABG Glucose Oxyhemoglobin Potassium Chloride Carbon Dioxide BUN Creatinine Glucose POC Glucose Lactic Acid 4.00 H* Calcium Phosphorus Magnesium AST ALT Alkaline Phosphatase Ammonia 116.0 H Troponin T Total Protein Albumin Triglycerides HDL Cholesterol Lipase Arterial Blood Glucose Arterial Blood Ionized Calcium Acetaminophen Crossmatch 03/17/21 03/18/21 03/18/21 23:36 00:25 23:07 WBC RBC Hgb Hct MCV MCH MCHC RDW Plt Count Seg Neuts % (Manual) Lymphocytes % (Manual) Monocytes % (Manual) Nucleated RBC % Seg Neutrophils # Man Lymphocytes # (Manual) Monocytes # (Manual) INR APTT D-Dimer ABG pH POC ABG pCO2 POC ABG pO2 ABG pO2 68.1 L ABG HCO3 40.2 H ABG O2 Saturation ABG Base Excess 14.4 H ABG Hemoglobin 6.5 L ABG Oxyhemoglobin ABG Potassium ABG Chloride ABG Glucose Oxyhemoglobin Potassium Chloride Carbon Dioxide BUN Creatinine Glucose POC Glucose Lactic Acid 4.00 H* Calcium Phosphorus Magnesium AST ALT Alkaline Phosphatase Ammonia Troponin T Total Protein Albumin Triglycerides HDL Cholesterol Lipase Arterial Blood Glucose Arterial Blood Ionized Calcium Acetaminophen 5.0 L Crossmatch 03/19/21 03/19/21 03/19/21 00:50 03:25 04:59 WBC RBC 3.43 L Hgb 7.0 L Hct 25.6 L MCV 75 L MCH 20 L MCHC 27 L RDW 25.6 H Plt Count Seg Neuts % (Manual) 91.0 H Lymphocytes % (Manual) Monocytes % (Manual) 9.0 H Nucleated RBC % 3.0 H Seg Neutrophils # Man 9.0 H Lymphocytes # (Manual) 0.0 L Monocytes # (Manual) INR APTT D-Dimer ABG pH 7.531 H POC ABG pCO2 POC ABG pO2 ABG pO2 49.6 L ABG HCO3 31.4 H ABG O2 Saturation 99.6 H ABG Base Excess 8.1 H ABG Hemoglobin 7.2 L ABG Oxyhemoglobin ABG Potassium ABG Chloride ABG Glucose Oxyhemoglobin Potassium Chloride Carbon Dioxide BUN Creatinine Glucose POC Glucose 127 H Lactic Acid Calcium Phosphorus Magnesium AST ALT Alkaline Phosphatase Ammonia Troponin T Total Protein Albumin Triglycerides HDL Cholesterol Lipase Arterial Blood Glucose Arterial Blood Ionized Calcium Acetaminophen Crossmatch 03/19/21 03/19/21 03/19/21 04:59 10:37 12:00 WBC RBC Hgb Hct MCV MCH MCHC RDW Plt Count Seg Neuts % (Manual) Lymphocytes % (Manual) Monocytes % (Manual) Nucleated RBC % Seg Neutrophils # Man Lymphocytes # (Manual) Monocytes # (Manual) INR APTT D-Dimer ABG pH 7.494 H POC ABG pCO2 POC ABG pO2 ABG pO2 107.3 H ABG HCO3 31.6 H ABG O2 Saturation ABG Base Excess 7.7 H ABG Hemoglobin 7.1 L ABG Oxyhemoglobin ABG Potassium ABG Chloride ABG Glucose Oxyhemoglobin Potassium Chloride 89.5 L Carbon Dioxide BUN Creatinine Glucose 121 H POC Glucose Lactic Acid Calcium Phosphorus Magnesium AST 359 H ALT 1434 H Alkaline Phosphatase Ammonia Troponin T Total Protein 5.7 L Albumin 3.5 L Triglycerides HDL Cholesterol Lipase Arterial Blood Glucose Arterial Blood Ionized Calcium Acetaminophen Crossmatch 03/19/21 03/19/21 03/19/21 12:05 17:52 23:23 WBC RBC Hgb Hct MCV MCH MCHC RDW Plt Count Seg Neuts % (Manual) Lymphocytes % (Manual) Monocytes % (Manual) Nucleated RBC % Seg Neutrophils # Man Lymphocytes # (Manual) Monocytes # (Manual) INR APTT D-Dimer ABG pH POC ABG pCO2 POC ABG pO2 ABG pO2 ABG HCO3 ABG O2 Saturation ABG Base Excess ABG Hemoglobin ABG Oxyhemoglobin ABG Potassium ABG Chloride ABG Glucose Oxyhemoglobin Potassium Chloride Carbon Dioxide BUN Creatinine Glucose POC Glucose 122 H 114 H 187 H Lactic Acid Calcium Phosphorus Magnesium AST ALT Alkaline Phosphatase Ammonia Troponin T Total Protein Albumin Triglycerides HDL Cholesterol Lipase Arterial Blood Glucose Arterial Blood Ionized Calcium Acetaminophen Crossmatch 03/19/21 03/20/21 03/20/21 Unknown 03:50 03:57 WBC RBC Hgb Hct MCV MCH MCHC RDW Plt Count Seg Neuts % (Manual) Lymphocytes % (Manual) Monocytes % (Manual) Nucleated RBC % Seg Neutrophils # Man Lymphocytes # (Manual) Monocytes # (Manual) INR APTT D-Dimer ABG pH 7.477 H POC ABG pCO2 POC ABG pO2 ABG pO2 67.9 L ABG HCO3 33.9 H ABG O2 Saturation ABG Base Excess 9.5 H ABG Hemoglobin 6.7 L ABG Oxyhemoglobin ABG Potassium ABG Chloride ABG Glucose Oxyhemoglobin Potassium Chloride Carbon Dioxide BUN Creatinine Glucose POC Glucose 247 H Lactic Acid Calcium Phosphorus Magnesium AST ALT Alkaline Phosphatase Ammonia Troponin T Total Protein Albumin Triglycerides HDL Cholesterol Lipase 12 L Arterial Blood Glucose Arterial Blood Ionized Calcium Acetaminophen Crossmatch 03/20/21 03/20/21 03/20/21 04:18 04:18 10:16 WBC RBC 3.48 L Hgb 7.0 L Hct 25.3 L MCV 73 L MCH 20 L MCHC 28 L RDW 25.2 H Plt Count 541 H Seg Neuts % (Manual) Lymphocytes % (Manual) Monocytes % (Manual) Nucleated RBC % Seg Neutrophils # Man Lymphocytes # (Manual) Monocytes # (Manual) INR APTT D-Dimer ABG pH POC ABG pCO2 POC ABG pO2 ABG pO2 63.3 L ABG HCO3 34.0 H ABG O2 Saturation 90.0 L ABG Base Excess 7.9 H ABG Hemoglobin 10.5 L ABG Oxyhemoglobin ABG Potassium ABG Chloride ABG Glucose Oxyhemoglobin 88.1 L Potassium Chloride 91.6 L Carbon Dioxide BUN 22 H Creatinine Glucose 245 H POC Glucose Lactic Acid Calcium Phosphorus Magnesium AST 148 H ALT 1096 H Alkaline Phosphatase 133 H Ammonia Troponin T Total Protein Albumin 3.5 L Triglycerides HDL Cholesterol Lipase Arterial Blood Glucose Arterial Blood Ionized Calcium Acetaminophen Crossmatch 03/20/21 03/20/21 03/21/21 12:05 17:26 00:18 WBC RBC Hgb Hct MCV MCH MCHC RDW Plt Count Seg Neuts % (Manual) Lymphocytes % (Manual) Monocytes % (Manual) Nucleated RBC % Seg Neutrophils # Man Lymphocytes # (Manual) Monocytes # (Manual) INR APTT D-Dimer ABG pH POC ABG pCO2 POC ABG pO2 ABG pO2 ABG HCO3 ABG O2 Saturation ABG Base Excess ABG Hemoglobin ABG Oxyhemoglobin ABG Potassium ABG Chloride ABG Glucose Oxyhemoglobin Potassium Chloride Carbon Dioxide BUN Creatinine Glucose POC Glucose 226 H 215 H 323 H Lactic Acid Calcium Phosphorus Magnesium AST ALT Alkaline Phosphatase Ammonia Troponin T Total Protein Albumin Triglycerides HDL Cholesterol Lipase Arterial Blood Glucose Arterial Blood Ionized Calcium Acetaminophen Crossmatch 03/21/21 03/21/21 03/21/21 04:00 05:05 09:28 WBC 12.0 H RBC 3.42 L Hgb 6.8 L Hct 25.3 L MCV 74 L MCH 20 L MCHC 27 L RDW 25.1 H Plt Count 650 H Seg Neuts % (Manual) Lymphocytes % (Manual) Monocytes % (Manual) Nucleated RBC % Seg Neutrophils # Man Lymphocytes # (Manual) Monocytes # (Manual) INR APTT D-Dimer ABG pH 7.348 L POC ABG pCO2 POC ABG pO2 ABG pO2 56.3 L ABG HCO3 36.9 H ABG O2 Saturation 83.4 L ABG Base Excess 10.0 H ABG Hemoglobin 7.0 L ABG Oxyhemoglobin ABG Potassium ABG Chloride ABG Glucose Oxyhemoglobin 81.7 L Potassium Chloride Carbon Dioxide BUN Creatinine Glucose POC Glucose 311 H Lactic Acid Calcium Phosphorus Magnesium AST ALT Alkaline Phosphatase Ammonia Troponin T Total Protein Albumin Triglycerides HDL Cholesterol Lipase Arterial Blood Glucose Arterial Blood Ionized Calcium Acetaminophen Crossmatch 03/21/21 03/21/21 03/21/21 09:28 12:31 14:08 WBC RBC Hgb Hct MCV MCH MCHC RDW Plt Count Seg Neuts % (Manual) Lymphocytes % (Manual) Monocytes % (Manual) Nucleated RBC % Seg Neutrophils # Man Lymphocytes # (Manual) Monocytes # (Manual) INR APTT D-Dimer ABG pH POC ABG pCO2 POC ABG pO2 ABG pO2 ABG HCO3 ABG O2 Saturation ABG Base Excess ABG Hemoglobin ABG Oxyhemoglobin ABG Potassium ABG Chloride ABG Glucose Oxyhemoglobin Potassium 5.1 H D Chloride 94.4 L Carbon Dioxide 33 H BUN 32 H Creatinine Glucose 319 H POC Glucose 295 H Lactic Acid Calcium Phosphorus Magnesium 2.40 H AST ALT 697 H Alkaline Phosphatase 134 H Ammonia Troponin T Total Protein 5.8 L Albumin 3.4 L Triglycerides HDL Cholesterol Lipase Arterial Blood Glucose Arterial Blood Ionized Calcium Acetaminophen Crossmatch See Detail 03/22/21 03/22/21 03/22/21 00:14 04:30 04:39 WBC RBC Hgb Hct MCV MCH MCHC RDW Plt Count Seg Neuts % (Manual) Lymphocytes % (Manual) Monocytes % (Manual) Nucleated RBC % Seg Neutrophils # Man Lymphocytes # (Manual) Monocytes # (Manual) INR APTT D-Dimer ABG pH 7.310 L POC ABG pCO2 POC ABG pO2 ABG pO2 65.4 L ABG HCO3 38.3 H ABG O2 Saturation 90.8 L ABG Base Excess 10.9 H ABG Hemoglobin 6.4 L ABG Oxyhemoglobin ABG Potassium ABG Chloride ABG Glucose Oxyhemoglobin 88.7 L Potassium Chloride Carbon Dioxide BUN Creatinine Glucose POC Glucose 326 H Lactic Acid Calcium Phosphorus Magnesium AST ALT Alkaline Phosphatase Ammonia Troponin T Total Protein Albumin Triglycerides 189 H HDL Cholesterol Lipase Arterial Blood Glucose Arterial Blood Ionized Calcium Acetaminophen Crossmatch 03/22/21 03/22/21 03/22/21 04:39 04:39 09:45 WBC 12.8 H RBC 3.34 L Hgb 6.6 L Hct 24.5 L MCV 73 L MCH 20 L MCHC 27 L RDW 25.5 H Plt Count 644 H Seg Neuts % (Manual) Lymphocytes % (Manual) Monocytes % (Manual) Nucleated RBC % Seg Neutrophils # Man Lymphocytes # (Manual) Monocytes # (Manual) INR APTT D-Dimer ABG pH POC ABG pCO2 65.7 H POC ABG pO2 59.7 L ABG pO2 ABG HCO3 ABG O2 Saturation ABG Base Excess ABG Hemoglobin 8.0 L ABG Oxyhemoglobin 86.3 L ABG Potassium 4.7 H ABG Chloride 94.0 L ABG Glucose 208 H Oxyhemoglobin Potassium 5.3 H Chloride 94.6 L Carbon Dioxide 34 H BUN 33 H Creatinine Glucose 291 H POC Glucose Lactic Acid Calcium Phosphorus Magnesium AST ALT Alkaline Phosphatase Ammonia Troponin T Total Protein Albumin Triglycerides HDL Cholesterol Lipase Arterial Blood Glucose 208 H Arterial Blood Ionized Calcium Acetaminophen Crossmatch 03/22/21 03/22/21 03/23/21 21:33 23:58 04:42 WBC 14.3 H RBC 3.63 L Hgb 7.6 L Hct 27.0 L MCV 74 L MCH 21 L MCHC 28 L RDW 23.1 H Plt Count 567 H Seg Neuts % (Manual) Lymphocytes % (Manual) Monocytes % (Manual) Nucleated RBC % Seg Neutrophils # Man Lymphocytes # (Manual) Monocytes # (Manual) INR APTT D-Dimer ABG pH POC ABG pCO2 POC ABG pO2 ABG pO2 ABG HCO3 ABG O2 Saturation ABG Base Excess ABG Hemoglobin ABG Oxyhemoglobin ABG Potassium ABG Chloride ABG Glucose Oxyhemoglobin Potassium Chloride Carbon Dioxide BUN Creatinine Glucose POC Glucose 170 H 156 H Lactic Acid Calcium Phosphorus Magnesium AST ALT Alkaline Phosphatase Ammonia Troponin T Total Protein Albumin Triglycerides HDL Cholesterol Lipase Arterial Blood Glucose Arterial Blood Ionized Calcium Acetaminophen Crossmatch 03/23/21 03/23/21 03/23/21 04:42 04:50 22:25 WBC RBC Hgb Hct MCV MCH MCHC RDW Plt Count Seg Neuts % (Manual) Lymphocytes % (Manual) Monocytes % (Manual) Nucleated RBC % Seg Neutrophils # Man Lymphocytes # (Manual) Monocytes # (Manual) INR APTT D-Dimer ABG pH POC ABG pCO2 POC ABG pO2 ABG pO2 70.7 L ABG HCO3 41.7 H ABG O2 Saturation ABG Base Excess 15.2 H ABG Hemoglobin 5.6 L ABG Oxyhemoglobin ABG Potassium ABG Chloride ABG Glucose Oxyhemoglobin Potassium Chloride 94.6 L Carbon Dioxide 37 H BUN 27 H Creatinine Glucose 311 H POC Glucose 295 H Lactic Acid Calcium Phosphorus Magnesium AST ALT Alkaline Phosphatase Ammonia Troponin T Total Protein Albumin Triglycerides HDL Cholesterol Lipase Arterial Blood Glucose Arterial Blood Ionized Calcium Acetaminophen Crossmatch 03/23/21 03/24/21 03/24/21 23:13 05:13 07:59 WBC RBC Hgb Hct MCV MCH MCHC RDW Plt Count Seg Neuts % (Manual) Lymphocytes % (Manual) Monocytes % (Manual) Nucleated RBC % Seg Neutrophils # Man Lymphocytes # (Manual) Monocytes # (Manual) INR APTT D-Dimer ABG pH POC ABG pCO2 POC ABG pO2 ABG pO2 ABG HCO3 ABG O2 Saturation ABG Base Excess ABG Hemoglobin ABG Oxyhemoglobin ABG Potassium ABG Chloride ABG Glucose Oxyhemoglobin Potassium Chloride Carbon Dioxide BUN Creatinine Glucose POC Glucose 336 H 303 H 333 H Lactic Acid Calcium Phosphorus Magnesium AST ALT Alkaline Phosphatase Ammonia Troponin T Total Protein Albumin Triglycerides HDL Cholesterol Lipase Arterial Blood Glucose Arterial Blood Ionized Calcium Acetaminophen Crossmatch 03/24/21 03/24/21 03/24/21 08:03 08:03 08:57 WBC 12.7 H RBC 3.48 L Hgb 7.3 L Hct 26.3 L MCV 76 L MCH 21 L MCHC 28 L RDW 24.1 H Plt Count 499 H Seg Neuts % (Manual) Lymphocytes % (Manual) 1.0 L Monocytes % (Manual) 16.0 H Nucleated RBC % 11.0 H Seg Neutrophils # Man 8.1 H Lymphocytes # (Manual) 0.1 L Monocytes # (Manual) 2.1 H INR APTT D-Dimer ABG pH 7.477 H POC ABG pCO2 56.9 H POC ABG pO2 ABG pO2 ABG HCO3 ABG O2 Saturation ABG Base Excess ABG Hemoglobin 8.0 L ABG Oxyhemoglobin ABG Potassium ABG Chloride 93.0 L ABG Glucose 328 H Oxyhemoglobin Potassium Chloride 94.4 L Carbon Dioxide 38 H BUN 26 H Creatinine 0.5 L Glucose 348 H POC Glucose Lactic Acid Calcium Phosphorus Magnesium AST ALT Alkaline Phosphatase Ammonia Troponin T Total Protein Albumin Triglycerides HDL Cholesterol Lipase Arterial Blood Glucose 328 H Arterial Blood Ionized Calcium 4.5 L Acetaminophen Crossmatch 03/24/21 03/24/21 03/25/21 12:14 17:45 04:00 WBC 15.8 H RBC Hgb 7.5 L Hct 27.4 L MCV 75 L MCH 21 L MCHC 28 L RDW 24.0 H Plt Count 576 H Seg Neuts % (Manual) Lymphocytes % (Manual) Monocytes % (Manual) Nucleated RBC % Seg Neutrophils # Man Lymphocytes # (Manual) Monocytes # (Manual) INR APTT D-Dimer ABG pH POC ABG pCO2 POC ABG pO2 ABG pO2 ABG HCO3 ABG O2 Saturation ABG Base Excess ABG Hemoglobin ABG Oxyhemoglobin ABG Potassium ABG Chloride ABG Glucose Oxyhemoglobin Potassium Chloride Carbon Dioxide BUN Creatinine Glucose POC Glucose 315 H 324 H Lactic Acid Calcium Phosphorus Magnesium AST ALT Alkaline Phosphatase Ammonia Troponin T Total Protein Albumin Triglycerides HDL Cholesterol Lipase Arterial Blood Glucose Arterial Blood Ionized Calcium Acetaminophen Crossmatch 03/25/21 03/25/21 03/25/21 07:52 16:37 17:38 WBC RBC Hgb Hct MCV MCH MCHC RDW Plt Count Seg Neuts % (Manual) Lymphocytes % (Manual) Monocytes % (Manual) Nucleated RBC % Seg Neutrophils # Man Lymphocytes # (Manual) Monocytes # (Manual) INR APTT D-Dimer ABG pH POC ABG pCO2 POC ABG pO2 ABG pO2 ABG HCO3 ABG O2 Saturation ABG Base Excess ABG Hemoglobin ABG Oxyhemoglobin ABG Potassium ABG Chloride ABG Glucose Oxyhemoglobin Potassium Chloride 95.9 L Carbon Dioxide 33 H BUN 24 H Creatinine 0.4 L Glucose 289 H POC Glucose 321 H 295 H Lactic Acid Calcium Phosphorus Magnesium AST ALT Alkaline Phosphatase Ammonia Troponin T Total Protein Albumin Triglycerides HDL Cholesterol Lipase Arterial Blood Glucose Arterial Blood Ionized Calcium Acetaminophen Crossmatch 03/25/21 03/26/21 03/26/21 23:27 05:07 05:35 WBC 20.0 H RBC 3.37 L Hgb 7.0 L Hct 25.2 L MCV 75 L MCH 21 L MCHC 28 L RDW 24.0 H Plt Count 544 H Seg Neuts % (Manual) 72.0 H Lymphocytes % (Manual) 6.0 L Monocytes % (Manual) 8.0 H Nucleated RBC % Seg Neutrophils # Man 14.4 H Lymphocytes # (Manual) Monocytes # (Manual) 1.6 H INR APTT D-Dimer ABG pH POC ABG pCO2 POC ABG pO2 ABG pO2 ABG HCO3 ABG O2 Saturation ABG Base Excess ABG Hemoglobin ABG Oxyhemoglobin ABG Potassium ABG Chloride ABG Glucose Oxyhemoglobin Potassium Chloride Carbon Dioxide BUN Creatinine Glucose POC Glucose 231 H 200 H Lactic Acid Calcium Phosphorus Magnesium AST ALT Alkaline Phosphatase Ammonia Troponin T Total Protein Albumin Triglycerides HDL Cholesterol Lipase Arterial Blood Glucose Arterial Blood Ionized Calcium Acetaminophen Crossmatch 03/26/21 03/26/21 03/26/21 05:35 10:33 12:12 WBC RBC Hgb Hct MCV MCH MCHC RDW Plt Count Seg Neuts % (Manual) Lymphocytes % (Manual) Monocytes % (Manual) Nucleated RBC % Seg Neutrophils # Man Lymphocytes # (Manual) Monocytes # (Manual) INR APTT D-Dimer ABG pH POC ABG pCO2 POC ABG pO2 ABG pO2 ABG HCO3 ABG O2 Saturation ABG Base Excess ABG Hemoglobin ABG Oxyhemoglobin ABG Potassium ABG Chloride ABG Glucose Oxyhemoglobin Potassium 5.9 H D Chloride 91.9 L Carbon Dioxide 33 H BUN 20 H Creatinine 0.4 L Glucose 197 H POC Glucose 132 H 176 H Lactic Acid Calcium Phosphorus Magnesium AST ALT 169 H Alkaline Phosphatase 138 H Ammonia Troponin T Total Protein 5.5 L Albumin 3.2 L Triglycerides HDL Cholesterol Lipase Arterial Blood Glucose Arterial Blood Ionized Calcium Acetaminophen Crossmatch 03/26/21 03/26/21 03/26/21 16:50 18:06 22:19 WBC RBC Hgb Hct MCV MCH MCHC RDW Plt Count Seg Neuts % (Manual) Lymphocytes % (Manual) Monocytes % (Manual) Nucleated RBC % Seg Neutrophils # Man Lymphocytes # (Manual) Monocytes # (Manual) INR APTT D-Dimer ABG pH POC ABG pCO2 POC ABG pO2 ABG pO2 ABG HCO3 ABG O2 Saturation ABG Base Excess ABG Hemoglobin ABG Oxyhemoglobin ABG Potassium ABG Chloride ABG Glucose Oxyhemoglobin Potassium 5.2 H Chloride 91.7 L Carbon Dioxide 38 H BUN 19 H Creatinine 0.4 L Glucose 260 H POC Glucose 248 H 168 H Lactic Acid Calcium Phosphorus Magnesium AST ALT Alkaline Phosphatase Ammonia Troponin T Total Protein Albumin Triglycerides HDL Cholesterol Lipase Arterial Blood Glucose Arterial Blood Ionized Calcium Acetaminophen Crossmatch 03/27/21 03/27/21 03/27/21 01:02 01:32 04:15 WBC 21.4 H RBC 3.45 L Hgb 6.9 L Hct 26.2 L MCV 76 L MCH 20 L MCHC 27 L RDW 24.5 H Plt Count 500 H Seg Neuts % (Manual) Lymphocytes % (Manual) Monocytes % (Manual) Nucleated RBC % Seg Neutrophils # Man Lymphocytes # (Manual) Monocytes # (Manual) INR APTT D-Dimer ABG pH POC ABG pCO2 POC ABG pO2 ABG pO2 ABG HCO3 ABG O2 Saturation ABG Base Excess ABG Hemoglobin ABG Oxyhemoglobin ABG Potassium ABG Chloride ABG Glucose Oxyhemoglobin Potassium Chloride Carbon Dioxide BUN Creatinine Glucose POC Glucose 219 H 221 H Lactic Acid Calcium Phosphorus Magnesium AST ALT Alkaline Phosphatase Ammonia Troponin T Total Protein Albumin Triglycerides HDL Cholesterol Lipase Arterial Blood Glucose Arterial Blood Ionized Calcium Acetaminophen Crossmatch 03/27/21 03/27/21 03/27/21 04:15 06:37 11:21 WBC RBC Hgb Hct MCV MCH MCHC RDW Plt Count Seg Neuts % (Manual) Lymphocytes % (Manual) Monocytes % (Manual) Nucleated RBC % Seg Neutrophils # Man Lymphocytes # (Manual) Monocytes # (Manual) INR APTT D-Dimer ABG pH POC ABG pCO2 POC ABG pO2 ABG pO2 ABG HCO3 ABG O2 Saturation ABG Base Excess ABG Hemoglobin ABG Oxyhemoglobin ABG Potassium ABG Chloride ABG Glucose Oxyhemoglobin Potassium 5.3 H Chloride 94.4 L Carbon Dioxide 35 H BUN 20 H Creatinine 0.4 L Glucose 310 H POC Glucose 312 H 273 H Lactic Acid Calcium 8.3 L Phosphorus 4.60 H D Magnesium AST ALT Alkaline Phosphatase Ammonia Troponin T Total Protein Albumin Triglycerides HDL Cholesterol Lipase Arterial Blood Glucose Arterial Blood Ionized Calcium Acetaminophen Crossmatch 03/27/21 03/27/21 03/28/21 16:14 21:21 00:16 WBC RBC Hgb Hct MCV MCH MCHC RDW Plt Count Seg Neuts % (Manual) Lymphocytes % (Manual) Monocytes % (Manual) Nucleated RBC % Seg Neutrophils # Man Lymphocytes # (Manual) Monocytes # (Manual) INR APTT D-Dimer ABG pH POC ABG pCO2 POC ABG pO2 ABG pO2 ABG HCO3 ABG O2 Saturation ABG Base Excess ABG Hemoglobin ABG Oxyhemoglobin ABG Potassium ABG Chloride ABG Glucose Oxyhemoglobin Potassium Chloride Carbon Dioxide BUN Creatinine Glucose POC Glucose 241 H 179 H 160 H Lactic Acid Calcium Phosphorus Magnesium AST ALT Alkaline Phosphatase Ammonia Troponin T Total Protein Albumin Triglycerides HDL Cholesterol Lipase Arterial Blood Glucose Arterial Blood Ionized Calcium Acetaminophen Crossmatch 03/28/21 03/28/21 03/28/21 04:00 04:00 05:41 WBC 27.1 H RBC 3.46 L Hgb 7.1 L Hct 26.1 L MCV 76 L MCH 20 L MCHC 27 L RDW 24.0 H Plt Count 541 H Seg Neuts % (Manual) Lymphocytes % (Manual) Monocytes % (Manual) Nucleated RBC % Seg Neutrophils # Man Lymphocytes # (Manual) Monocytes # (Manual) INR APTT D-Dimer ABG pH POC ABG pCO2 POC ABG pO2 ABG pO2 ABG HCO3 ABG O2 Saturation ABG Base Excess ABG Hemoglobin ABG Oxyhemoglobin ABG Potassium ABG Chloride ABG Glucose Oxyhemoglobin Potassium Chloride 95.7 L Carbon Dioxide 36 H BUN 23 H Creatinine 0.4 L Glucose 295 H POC Glucose 279 H Lactic Acid Calcium Phosphorus Magnesium AST ALT Alkaline Phosphatase Ammonia Troponin T Total Protein Albumin Triglycerides HDL Cholesterol Lipase Arterial Blood Glucose Arterial Blood Ionized Calcium Acetaminophen Crossmatch 03/28/21 03/28/21 03/28/21 11:50 16:45 23:15 WBC RBC Hgb Hct MCV MCH MCHC RDW Plt Count Seg Neuts % (Manual) Lymphocytes % (Manual) Monocytes % (Manual) Nucleated RBC % Seg Neutrophils # Man Lymphocytes # (Manual) Monocytes # (Manual) INR APTT D-Dimer ABG pH POC ABG pCO2 POC ABG pO2 ABG pO2 ABG HCO3 ABG O2 Saturation ABG Base Excess ABG Hemoglobin ABG Oxyhemoglobin ABG Potassium ABG Chloride ABG Glucose Oxyhemoglobin Potassium Chloride Carbon Dioxide BUN Creatinine Glucose POC Glucose 233 H 240 H 189 H Lactic Acid Calcium Phosphorus Magnesium AST ALT Alkaline Phosphatase Ammonia Troponin T Total Protein Albumin Triglycerides HDL Cholesterol Lipase Arterial Blood Glucose Arterial Blood Ionized Calcium Acetaminophen Crossmatch 03/29/21 03/29/21 03/29/21 04:35 04:35 05:05 WBC 29.6 H RBC 3.18 L Hgb 6.7 L Hct 24.2 L MCV 76 L MCH 21 L MCHC 28 L RDW 24.0 H Plt Count 678 H Seg Neuts % (Manual) Lymphocytes % (Manual) Monocytes % (Manual) Nucleated RBC % Seg Neutrophils # Man Lymphocytes # (Manual) Monocytes # (Manual) INR APTT D-Dimer ABG pH POC ABG pCO2 POC ABG pO2 ABG pO2 ABG HCO3 ABG O2 Saturation ABG Base Excess ABG Hemoglobin ABG Oxyhemoglobin ABG Potassium ABG Chloride ABG Glucose Oxyhemoglobin Potassium Chloride 95.4 L Carbon Dioxide 37 H BUN 22 H Creatinine 0.4 L Glucose 194 H POC Glucose 195 H Lactic Acid Calcium Phosphorus Magnesium AST ALT Alkaline Phosphatase Ammonia Troponin T Total Protein Albumin Triglycerides HDL Cholesterol Lipase Arterial Blood Glucose Arterial Blood Ionized Calcium Acetaminophen Crossmatch 03/29/21 03/29/21 03/29/21 09:24 10:58 17:14 WBC RBC Hgb Hct MCV MCH MCHC RDW Plt Count Seg Neuts % (Manual) Lymphocytes % (Manual) Monocytes % (Manual) Nucleated RBC % Seg Neutrophils # Man Lymphocytes # (Manual) Monocytes # (Manual) INR APTT D-Dimer ABG pH POC ABG pCO2 POC ABG pO2 ABG pO2 ABG HCO3 ABG O2 Saturation ABG Base Excess ABG Hemoglobin ABG Oxyhemoglobin ABG Potassium ABG Chloride ABG Glucose Oxyhemoglobin Potassium Chloride Carbon Dioxide BUN Creatinine Glucose POC Glucose 106 H 117 H Lactic Acid Calcium Phosphorus Magnesium AST ALT Alkaline Phosphatase Ammonia Troponin T Total Protein Albumin Triglycerides HDL Cholesterol Lipase Arterial Blood Glucose Arterial Blood Ionized Calcium Acetaminophen Crossmatch See Detail 03/29/21 03/29/21 03/30/21 19:32 23:36 01:49 WBC 25.1 H RBC Hgb 9.3 L Hct MCV 77 L MCH 23 L MCHC RDW 22.7 H Plt Count 599 H Seg Neuts % (Manual) Lymphocytes % (Manual) Monocytes % (Manual) Nucleated RBC % Seg Neutrophils # Man Lymphocytes # (Manual) Monocytes # (Manual) INR APTT D-Dimer ABG pH POC ABG pCO2 POC ABG pO2 ABG pO2 ABG HCO3 ABG O2 Saturation ABG Base Excess ABG Hemoglobin ABG Oxyhemoglobin ABG Potassium ABG Chloride ABG Glucose Oxyhemoglobin Potassium Chloride Carbon Dioxide BUN Creatinine Glucose POC Glucose 57 L 55 L Lactic Acid Calcium Phosphorus Magnesium AST ALT Alkaline Phosphatase Ammonia Troponin T Total Protein Albumin Triglycerides HDL Cholesterol Lipase Arterial Blood Glucose Arterial Blood Ionized Calcium Acetaminophen Crossmatch 03/30/21 03/30/21 03/30/21 04:00 15:52 18:07 WBC RBC Hgb Hct MCV MCH MCHC RDW Plt Count Seg Neuts % (Manual) Lymphocytes % (Manual) Monocytes % (Manual) Nucleated RBC % Seg Neutrophils # Man Lymphocytes # (Manual) Monocytes # (Manual) INR APTT D-Dimer ABG pH POC ABG pCO2 POC ABG pO2 ABG pO2 ABG HCO3 ABG O2 Saturation ABG Base Excess ABG Hemoglobin ABG Oxyhemoglobin ABG Potassium ABG Chloride ABG Glucose Oxyhemoglobin Potassium Chloride 93.4 L Carbon Dioxide 34 H BUN 18 H Creatinine 0.3 L Glucose 114 H POC Glucose 112 H 130 H Lactic Acid Calcium Phosphorus 4.70 H Magnesium AST ALT Alkaline Phosphatase Ammonia Troponin T Total Protein Albumin Triglycerides HDL Cholesterol Lipase Arterial Blood Glucose Arterial Blood Ionized Calcium Acetaminophen Crossmatch 03/30/21 03/31/21 03/31/21 23:26 04:41 04:41 WBC 30.8 H RBC Hgb 9.3 L Hct MCV MCH 23 L MCHC 28 L RDW 22.3 H Plt Count 642 H Seg Neuts % (Manual) Lymphocytes % (Manual) Monocytes % (Manual) Nucleated RBC % Seg Neutrophils # Man Lymphocytes # (Manual) Monocytes # (Manual) INR APTT D-Dimer ABG pH POC ABG pCO2 POC ABG pO2 ABG pO2 ABG HCO3 ABG O2 Saturation ABG Base Excess ABG Hemoglobin ABG Oxyhemoglobin ABG Potassium ABG Chloride ABG Glucose Oxyhemoglobin Potassium Chloride 96.3 L Carbon Dioxide 34 H BUN Creatinine 0.3 L Glucose POC Glucose 124 H Lactic Acid Calcium Phosphorus Magnesium AST ALT Alkaline Phosphatase Ammonia Troponin T Total Protein Albumin Triglycerides HDL Cholesterol Lipase Arterial Blood Glucose Arterial Blood Ionized Calcium Acetaminophen Crossmatch 03/31/21 04/01/21 04/01/21 17:45 00:17 04:27 WBC 20.2 H RBC Hgb 9.1 L Hct MCV MCH 23 L MCHC 28 L RDW 22.3 H Plt Count 454 H Seg Neuts % (Manual) Lymphocytes % (Manual) Monocytes % (Manual) Nucleated RBC % Seg Neutrophils # Man Lymphocytes # (Manual) Monocytes # (Manual) INR APTT D-Dimer ABG pH POC ABG pCO2 POC ABG pO2 ABG pO2 ABG HCO3 ABG O2 Saturation ABG Base Excess ABG Hemoglobin ABG Oxyhemoglobin ABG Potassium ABG Chloride ABG Glucose Oxyhemoglobin Potassium Chloride Carbon Dioxide BUN Creatinine Glucose POC Glucose 130 H 108 H Lactic Acid Calcium Phosphorus Magnesium AST ALT Alkaline Phosphatase Ammonia Troponin T Total Protein Albumin Triglycerides HDL Cholesterol Lipase Arterial Blood Glucose Arterial Blood Ionized Calcium Acetaminophen Crossmatch 04/01/21 04/01/21 04/01/21 04:27 11:56 16:19 WBC RBC Hgb Hct MCV MCH MCHC RDW Plt Count Seg Neuts % (Manual) Lymphocytes % (Manual) Monocytes % (Manual) Nucleated RBC % Seg Neutrophils # Man Lymphocytes # (Manual) Monocytes # (Manual) INR APTT D-Dimer ABG pH POC ABG pCO2 POC ABG pO2 ABG pO2 ABG HCO3 ABG O2 Saturation ABG Base Excess ABG Hemoglobin ABG Oxyhemoglobin ABG Potassium ABG Chloride ABG Glucose Oxyhemoglobin Potassium Chloride Carbon Dioxide 31 H BUN Creatinine 0.4 L Glucose POC Glucose 112 H 172 H Lactic Acid Calcium Phosphorus Magnesium AST ALT Alkaline Phosphatase Ammonia Troponin T Total Protein Albumin Triglycerides HDL Cholesterol Lipase Arterial Blood Glucose Arterial Blood Ionized Calcium Acetaminophen Crossmatch 04/01/21 04/02/21 04/02/21 23:19 04:30 04:30 WBC 17.3 H RBC Hgb 8.7 L Hct 30.1 L MCV MCH 23 L MCHC 29 L RDW 22.4 H Plt Count 521 H Seg Neuts % (Manual) Lymphocytes % (Manual) Monocytes % (Manual) Nucleated RBC % Seg Neutrophils # Man Lymphocytes # (Manual) Monocytes # (Manual) INR APTT D-Dimer ABG pH POC ABG pCO2 POC ABG pO2 ABG pO2 ABG HCO3 ABG O2 Saturation ABG Base Excess ABG Hemoglobin ABG Oxyhemoglobin ABG Potassium ABG Chloride ABG Glucose Oxyhemoglobin Potassium Chloride Carbon Dioxide 33 H BUN Creatinine 0.4 L Glucose POC Glucose 112 H Lactic Acid Calcium Phosphorus Magnesium AST ALT Alkaline Phosphatase Ammonia Troponin T Total Protein Albumin Triglycerides HDL Cholesterol Lipase Arterial Blood Glucose Arterial Blood Ionized Calcium Acetaminophen Crossmatch 04/02/21 04/03/21 23:32 05:14 WBC RBC Hgb Hct MCV MCH MCHC RDW Plt Count Seg Neuts % (Manual) Lymphocytes % (Manual) Monocytes % (Manual) Nucleated RBC % Seg Neutrophils # Man Lymphocytes # (Manual) Monocytes # (Manual) INR APTT D-Dimer ABG pH POC ABG pCO2 POC ABG pO2 ABG pO2 ABG HCO3 ABG O2 Saturation ABG Base Excess ABG Hemoglobin ABG Oxyhemoglobin ABG Potassium ABG Chloride ABG Glucose Oxyhemoglobin Potassium Chloride Carbon Dioxide BUN Creatinine Glucose POC Glucose 112 H 118 H Lactic Acid Calcium Phosphorus Magnesium AST ALT Alkaline Phosphatase Ammonia Troponin T Total Protein Albumin Triglycerides HDL Cholesterol Lipase Arterial Blood Glucose Arterial Blood Ionized Calcium Acetaminophen Crossmatch
[2021-04-03] MEDS: busPIRone 5 MG TAB PO SCH (09:57)
[2021-04-03] MEDS: predniSONE 5 MG TAB PO SCH (09:57)
[2021-04-03] MEDS: D5W/0.45% NACL 1,000 ML IV SCH (09:57)
[2021-04-03] MEDS: ALPRAZolam 1 MG TAB PO PRN (09:58)
[2021-04-03] MEDS: METOPROLOL TARTRATE 25 MG TAB PO SCH ×2 (09:58→21:54)
[2021-04-03] MEDS: DOCUSATE SODIUM 100 MG/10 ML ORAL LIQD PO SCH ×2 (09:59→21:55)
[2021-04-03] MEDS: FAMOTIDINE 20 MG TAB FEEDTUBE SCH ×2 (09:59→21:54)
[2021-04-03] MEDS: SENNOSIDES/DOCUSATE SODIUM 8.6/50 MG TAB FEEDTUBE SCH ×2 (09:59→22:00)
[2021-04-03] MEDS ORDERED: busPIRone 5 MG TAB PO SCH (11:00)
[2021-04-03] MEDS: MORPHINE 4 MG/1 ML INJ IV PRN ×2 (11:48→17:21)
--- NOTE | 2021-04-03 12:08 | Consultation ---
History of Present Illness - Reason for Consult Consult date: 04/03/21 Reason for consult: severe anxiety - Chief Complaint Chief complaint: Shortness of Breath - History of Present Psychiatric Illness Tiana Root is a 60 year old female with history of anxiety. The patient was seen today, she is calm and nonverbal. Attempted reaching patient's @ ([phone]) for collateral. PAST PSYCHIATRIC HISTORY: PAST MEDICAL HISTORY: SOCIAL HISTORY REVIEW OF SYSTEMS unable to assess MENTAL STATUS EXAMINATION unable to assess Assessment (1) Hx of Anxiety disorder Treatment Plan Start Klonopin 0.5mg po BID Continue Home medications Medical: per primary Disposition: Do not recommend acute psychiatric inpatient treatment Will follow for medication management. Thanks Case staffed with Dr. Rodriguez Medications and Allergies Allergies Allergy/AdvReac Type Severity Reaction Status Date / Time ipratropium [From Atrovent] Allergy Unknown Verified 11/13/20 08:53 Penicillins Allergy Unknown Verified 11/13/20 08:53 lactose AdvReac Unknown Verified 11/13/20 08:53 shellfish derived AdvReac Swelling Verified 11/13/20 08:53 Tea Allergy Itching Uncoded 07/16/20 19:49 Home Medications Medication Instructions Recorded Confirmed Last Taken Type Plecanatide [Trulance] 3 mg PO QDAY 11/14/20 03/18/21 Unknown History AtorvaSTATin 10 mg PO QHS tablet 11/15/20 03/18/21 Unknown Rx Clopidogrel [Plavix] 75 mg PO QDAY tablet 11/15/20 03/18/21 Unknown Rx Metoprolol [Lopressor TAB] 25 mg PO TIDAC tablet 11/15/20 03/18/21 Unknown Rx Montelukast [Singulair] 10 mg PO QHS tablet 11/15/20 03/18/21 Unknown Rx busPIRone [Buspar] 5 mg PO BID tablet 11/15/20 03/18/21 Unknown Rx predniSONE [Deltasone] 20 mg PO QDAY #10 11/15/20 03/18/21 Unknown Rx DULoxetine [Cymbalta] 60 mg PO QDAY 03/18/21 03/18/21 Unknown History Fluticasone/Umeclidin/Vilanter 1 puff PO DAILY 03/18/21 03/18/21 Unknown History [Trelegy Ellipta 100-62.5-25] clonazePAM 1 mg PO BID 03/18/21 03/18/21 Unknown History Active Meds: Active Medications Acetaminophen (Acetaminophen 325 Mg Tab) 650 mg PO Q6H PRN PRN Reason: Pain MILD(1-3)/Fever >100.5/TOVAR Albuterol (Albuterol 2.5 Mg/3 Ml Nebu) 2.5 mg IH Q6H PRN PRN Reason: Wheezing Alprazolam (Alprazolam 1 Mg Tab) 1 mg PO Q8H PRN PRN Reason: AGITATION Last Admin: 04/03/21 09:58 Dose: 1 mg Arformoterol Tartrate (Arformoterol 15 Mcg/2 Ml Nebu) 15 mcg IH Q12HRT [facility] Last Admin: 04/03/21 08:56 Dose: 15 mcg Atorvastatin Calcium (Atorvastatin 10 Mg Tab) 10 mg PO QHS [facility] Last Admin: 04/02/21 21:53 Dose: Not Given Budesonide (Budesonide 0.5 Mg/2 Ml Nebu) 0.5 mg IH Q12HRT [facility] Last Admin: 04/03/21 08:56 Dose: 0.5 mg Buspirone HCl (Buspirone 10 Mg Tab) 10 mg PO BID [facility] Buspirone HCl (Buspirone 5 Mg Tab) 5 mg PO ONCE@1100 [facility] Stop: 04/03/21 15:00 Last Admin: 04/03/21 11:48 Dose: 5 mg Dextrose (Dextrose 50% In Water (25gm) 50 Ml Syringe) 0 ml IV Q30MIN PRN; Protocol PRN Reason: Hypoglycemia Last Admin: 03/31/21 05:16 Dose: 10 ml Docusate Sodium (Docusate Sodium 100 Mg/10 Ml Oral Liqd) 100 mg PO BID [facility] Last Admin: 04/03/21 09:59 Dose: Not Given Famotidine (Famotidine 20 Mg Tab) 20 mg FEEDTUBE BID [facility] Last Admin: 04/03/21 09:59 Dose: 20 mg Fentanyl (Fentanyl 100 Mcg/2 Ml Inj) 50 mcg IV Q2H PRN PRN Reason: Pain, Moderate (4-6) Last Admin: 04/02/21 02:03 Dose: 50 mcg Haloperidol Lactate (Haloperidol Lactate 5 Mg/1 Ml Inj) 5 mg IV Q6H PRN PRN Reason: Agitation Last Admin: 04/01/21 08:33 Dose: 5 mg Heparin Sodium (Porcine) (Heparin 5,000 Unit/1 Ml Vial) 5,000 unit SUB-Q Q8HR [facility] Last Admin: 04/03/21 06:32 Dose: 5,000 unit Hydralazine HCl (Hydralazine 20 Mg/1 Ml Inj) 5 mg IV Q4HR PRN PRN Reason: SBP >160 Hydrophilic Ointment (Lip Therapy Vaseline) 1 applic TP Q2HR PRN PRN Reason: Dry Lips Dexmedetomidine HCl 400 mcg/ (Sodium Chloride) 104 mls @ 4.306 mls/hr IV TITRATE [facility]; Protocol Last Admin: 04/03/21 02:48 Dose: 0.6 mcg/kg/hr, 12.917 mls/hr Dextrose/Sodium Chloride (D5/0.45ns) 1,000 mls @ 75 mls/hr IV DIRECT BUTCH Last Admin: 04/03/21 09:57 Dose: 75 mls/hr Insulin Human Lispro (Insulin Lispro 100 Unit/Ml) 0 unit SUB-Q Q6HR [facility]; Protocol Last Admin: 04/03/21 11:51 Dose: Not Given Lorazepam (Lorazepam 2 Mg/Ml Vial) 0.5 mg IV Q4H PRN PRN Reason: Anxiety Last Admin: 04/01/21 16:04 Dose: 0.5 mg Magnesium Hydroxide (Magnesium Hydroxide (Mom) Oral Liqd Udc) 30 ml PO Q4H PRN PRN Reason: Constipation Last Admin: 03/24/21 09:36 Dose: 30 ml Metoprolol Tartrate (Metoprolol Tartrate 25 Mg Tab) 25 mg PO BID [facility] Last Admin: 04/03/21 09:58 Dose: 25 mg Morphine Sulfate (Morphine 2 Mg/1 Ml Inj) 2 mg IV Q4H PRN PRN Reason: Pain, Moderate (4-6) Morphine Sulfate (Morphine 4 Mg/1 Ml Inj) 4 mg IV Q4H PRN PRN Reason: Pain , Severe (7-10) Last Admin: 04/03/21 11:48 Dose: 4 mg Multi-Ingred Cream/Lotion/Oil/Oint (Mineral Oil/Petrolatum, White Ophth Oint 3.5 Gm) 1 applic OU Q4HR PRN PRN Reason: Dry Eye(s) Prednisone (Prednisone 5 Mg Tab) 15 mg PO QDAY [facility] Last Admin: 04/03/21 09:57 Dose: 15 mg Senna/Docusate Sodium (Sennosides/Docusate Sodium 8.6/50 Mg Tab) 1 tab FEEDTUBE BID [facility] Last Admin: 04/03/21 09:59 Dose: Not Given Simple Syrup (Simple Syrup 15 Ml) 15 ml FEEDTUBE PRN PRN PRN Reason: Hypoglycemia Simple Syrup (Simple Syrup 15 Ml) 30 ml FEEDTUBE PRN PRN PRN Reason: Hypoglycemia Sodium Chloride (Sodium Chloride 0.9% 10 Ml Flush Syringe) 10 ml IV BID [facility] Last Admin: 04/03/21 10:00 Dose: 10 ml Sodium Chloride (Sodium Chloride 0.9% 10 Ml Flush Syringe) 10 ml IV PRN PRN PRN Reason: LINE FLUSH Last Admin: 03/22/21 23:20 Dose: 10 ml Mental Status Exam - Vital signs Last Vital Signs Temp 98.1 F 04/03/21 08:00 Pulse 82 04/03/21 11:02 Resp 19 04/03/21 11:02 BP 113/66 04/03/21 11:09 Pulse Ox 97 04/03/21 11:02 Results Result Diagrams: 04/02/21 04:30 04/02/21 04:30 Abnormal lab results 04/02/21 04/03/21 Range/Units 23:32 05:14 POC Glucose 112 H 118 H (70-105) mg/dL All other labs normal.
--- NOTE | 2021-04-03 13:54 | Progress Note ---
Assessment and Plan - Patient Problems (1) Respiratory failure Current Visit: Yes Status: Acute Plan to address problem: Patient with long history of severe, oxygen dependent COPD, presented with respiratory failure due to COPD exacerbation. Stable sinus rhythm in the CCU. Continue supportive management and current treatment of COPD exacerbation. 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 No cardiac events reported. Objective Vital Signs Temp Pulse Pulse Pulse Resp Resp BP 04/03/21 13:01 72 17 110/30 04/03/21 12:30 72 21 102/65 04/03/21 12:08 04/03/21 12:01 66 19 96/55 04/03/21 12:00 67 67 19 04/03/21 11:30 71 19 104/64 04/03/21 11:09 113/66 04/03/21 11:02 82 19 04/03/21 10:31 79 22 04/03/21 10:00 77 15 111/60 04/03/21 09:58 71 04/03/21 09:30 77 14 77/40 04/03/21 09:00 63 15 102/52 04/03/21 08:56 85 16 04/03/21 08:53 62 16 86/63 04/03/21 08:30 77 13 86/63 04/03/21 08:00 98.1 F 67 70 17 89/54 04/03/21 07:31 96 H 14 108/67 04/03/21 07:01 95 H 18 119/74 04/03/21 06:30 68 14 87/53 04/03/21 06:00 65 15 86/49 04/03/21 05:30 68 16 84/51 04/03/21 05:00 68 16 100/56 04/03/21 04:30 69 15 98/54 04/03/21 04:00 74 64 15 97/56 04/03/21 03:30 70 14 90/58 04/03/21 03:28 98.4 F 04/03/21 03:00 70 15 90/55 04/03/21 02:31 72 18 93/52 04/03/21 02:01 69 18 72/43 04/03/21 01:30 68 13 99/58 04/03/21 01:00 74 14 79/54 04/03/21 00:31 70 16 151/80 04/03/21 00:08 90 17 04/03/21 00:01 75 16 151/80 04/03/21 00:00 69 69 20 04/02/21 23:46 98 F 04/02/21 23:31 97 H 23 151/80 04/02/21 23:01 106 H 18 151/80 04/02/21 22:31 18 122/70 04/02/21 22:01 81 16 93/56 04/02/21 21:31 74 17 93/56 04/02/21 21:01 84 15 125/67 04/02/21 20:33 04/02/21 20:32 81 18 04/02/21 20:31 77 20 120/63 04/02/21 20:00 74 75 16 101/61 04/02/21 19:50 97.7 F 04/02/21 19:31 72 15 99/63 04/02/21 19:00 88 20 119/76 04/02/21 18:31 74 16 123/57 04/02/21 18:01 72 17 113/60 04/02/21 17:31 104 H 16 116/81 04/02/21 17:01 95 H 27 H 133/82 04/02/21 16:31 105 H 25 H 136/61 04/02/21 16:01 101 H 27 H 136/61 04/02/21 16:00 97.0 F L 73 76 20 04/02/21 15:31 100 H 28 H 128/76 04/02/21 15:01 97 H 27 H 134/73 04/02/21 14:31 98 H 17 107/61 04/02/21 14:01 90 16 107/61 Pulse Ox 04/03/21 13:01 99 04/03/21 12:30 100 04/03/21 12:08 100 04/03/21 12:01 99 04/03/21 12:00 100 04/03/21 11:30 98 04/03/21 11:09 04/03/21 11:02 97 04/03/21 10:31 99 04/03/21 10:00 100 04/03/21 09:58 04/03/21 09:30 100 04/03/21 09:00 100 04/03/21 08:56 04/03/21 08:53 100 04/03/21 08:30 100 04/03/21 08:00 100 04/03/21 07:31 100 04/03/21 07:01 100 04/03/21 06:30 100 04/03/21 06:00 100 04/03/21 05:30 100 04/03/21 05:00 100 04/03/21 04:30 100 04/03/21 04:00 100 04/03/21 03:30 100 04/03/21 03:28 04/03/21 03:00 100 04/03/21 02:31 100 04/03/21 02:01 100 04/03/21 01:30 100 04/03/21 01:00 100 04/03/21 00:31 100 04/03/21 00:08 100 04/03/21 00:01 100 04/03/21 00:00 100 04/02/21 23:46 04/02/21 23:31 98 04/02/21 23:01 99 04/02/21 22:31 04/02/21 22:01 100 04/02/21 21:31 100 04/02/21 21:01 100 04/02/21 20:33 100 04/02/21 20:32 04/02/21 20:31 100 04/02/21 20:00 100 04/02/21 19:50 04/02/21 19:31 100 04/02/21 19:00 100 04/02/21 18:31 100 04/02/21 18:01 100 04/02/21 17:31 100 04/02/21 17:01 100 04/02/21 16:31 99 04/02/21 16:01 100 04/02/21 16:00 100 04/02/21 15:31 100 04/02/21 15:01 100 04/02/21 14:31 100 04/02/21 14:01 100 - Physical Examination General: Other (Comfortable in no acute distress) HEENT: Positive: PERRL Neck: Positive: neck supple Cardiac: Positive: Reg Rate and Rhythm Lungs: Positive: Decreased Breath Sounds Neuro: Positive: Grossly Intact Abdomen: Positive: Soft Skin: Positive: Clear Extremities: Absent: edema
--- NOTE | 2021-04-03 14:28 | Progress Note ---
<BETTYJairDARLENE - Last Filed: 04/03/21 14:24> Assessment and Plan Assessment and plan: This is a 50-year-old female with COPD with oxygen dependence, DM, severe anxiety, GERD, HLD, HTN and PAGE admitted with SVT and hypertensive urgency. Neuro: Hepatic/metabolic encephalopathy, h/o severe anxiety, depression -Admit ammonia 116, 03/09 ammonia 26 -Precedex gtt -xanax, ativan, haldol and morphine prn -Buspar increased dose today on hopes to wean of precedex; home cymbalta on hold (cannot crush) -Psych consulted, appreciate recommendations -Avoid delirium -Maintain sleep-wake cycle -SAT when appropriate -CT head on admit with no acute findings -Repeat CT head d/t AMS-> no acute changes Cardio: Hypertensive emergency (resolved), s/p A. fib with RVR and SVT, h/o HTN, HLD -s/p X2 doses of adenosine in the ED -Cardiology consulted, appreciate recommendations -PO metoprolol BID -Resume home statin -Blood pressure monitoring per protocol -Echocardiogram 10/2020 showed EF of 50 to 55%, mild diastolic dysfunction, trace to mild tricuspid regurgitation, mild pulmonary hypertension, RVSP 45 mmHg Resp : Acute on chronic respiratory failure, h/o COPD and PAGE -CCM consulted, appreciate recommendations -CTA chest shows no CT evidence of pulmonary embolism, small right and trace left pleural effusion, upper lobe predominant emphysema -Intubated on 03/17 with 7.00 ETT at 20 at the lips and extubated 03/22 but reintubated shortly after; Self-extubated on 03/29 -weaned to BiPAP q hs, Optiflow in AM -VAP bundle -SPO2 monitoring -Methylprednisone weaning-> PO will be slow wean -nebs per CCM GI: Transaminitis (resolving), h/o chronic constipation -NTR consulted, appreciate recommendations -RUQ US shows right hydroureteronephrosis and possible gallbladder sludge or gallstones -Renal ultrasound shows mild right-sided hydronephrosis with parenchymal thinning and trace perinephric fluid. -need to follow up outpatient -PPI -BR: senakot S and colace, prn mom -BM 04/01 -24 hours +1632 mL -Failed bedside swallow eval -NGT reinserted and TF changed to cyclic; ST recommends PEG : Mild right hydroureteronephrosis -Trend BMP -FWF with TF -stop D51/2 NS when TF resumed -Strict I & Os -Wallis -Renal ultrasound shows mild right-sided hydronephrosis with parenchymal thinning and trace perinephric fluid. Endo: h/o DM -Avoid hypoglycemia -SSI -Accucheck q 6hrs -Lantus -titrate as needed Heme: Anemia, Leukocytosis, h/o Microcytic anemia -Trend CBC -Transfuse for hbg <7 -s/p 2 unit PRBCs -SCDs to BLE while in bed -Lovenox subq ID: Gram positive cocci in tracheal aspirate -02/25 tracheal aspirate with few gram-positive cocci -s/p Levaquin (03/18-) -Trend WBC and fever curve -Repeat blood cultures and sputum culture NGTD -Trend WBC and fever curve The high probability of a clinically significant, sudden or life threatening deterioration of the [pulm/cv] system(s) required my full and direct attention, intervention and personal management. The aggregate critical care time was [60] minutes. This time is in addition to time spent performing reported procedures but includes the following: [x] Data Review and interpretation [x] Patient assessment and monitoring of vital signs [x] Documentation [x] Medication orders and management Disposition Plan: icu Total Time Spent with Patient (Minutes): 60 History Interval history: This is a 60-year-old female with COPD with oxygen dependence currently with palliative care, DM, former nicotine abuse, severe anxiety, GERD, HLD, HTN and PAGE presented to emergency department on 03/17 via EMS with complaints of shortness of breath. On arrival of EMS patient was found to be in SVT with a heart rate of about 200 and blood pressure to be quite elevated with systolic in 200s. She was given 6 mg of adenosine without significant changes subsequently given 12 mg of adenosine with improvement of her heart rate. Upon arrival to the emergency department patient was found to be in atrial fibrillation with RVR and dyspneic. Work-up in the emergency department revealed leukocytosis, lactic acidosis, transaminitis, hypoalbuminemia and a troponin leak. CXR, CT a chest and CT head were unremarkable. Patient was admitted to the hospitalist service with consults to [facility] and cardiology for further work-up of acute on chronic respiratory failure, SVT and hypertensive urgency. 03/18/2021: Patient is intubated and on vent support, Patient is in sinus ta chycardia 03/19: COVID-19 PCR negative, remains on ventilatory support, Versed drip changed to propofol. No acute events reported overnight. Tracheal aspirate with few gram-positive Cocci. This afternoon, patient went in to the 150s, giving 500 mL NS bolus and fentanyl push to see if it pain related. If persists then will order prn Ativan per Dr. Gage recommendation. 03/20: Restarted on home metoprolol and abdominal ultrasound showed right hydronephrosis. Abd US shows right hydroureteronephrosis and will obtain a dedicated renal US. She seems to more comfortable on propofol and fentanyl 03/21: Patient's FiO2 had to be decreased overnight due to hypoxia and tachycardia. Hyperkalemia noted and given Kayexalate. 1 unit PRBC for hemoglobin 6.8. [facility] plans to extubate tomorrow. Increase in Lantus. 03/22: Transfuse one unit prbc, failed SBT in the AM d/t hypertension. [facility] extubated the patient but she was reintubated within [address] head ordered and pending read. Given kionex x2 for hyperkalemia 03/23: This morning patient was only on Precedex drip and overnight she had agitation, hypertension and tachycardia. RN instructed to place fentanyl drip. Increase in Lantus for better glucose control. Will remove Wallis today. 03/24/2021: no acute events reported overnight. Patient remains intubated and is currently on fentanyl and Precedex. Increase in Lantus due to hyperglycemia. 03/25: no acute events overnight. increase in lantus and decreased steroids today. 04/02: Bipap q hs and optiflow in the AM, remains on precedex. Psych consulted today. 04/03: Patient failed swallow evaluation today and ST recommended PEG tube placement. NG tube was replaced yesterday and tube feeds changed to cyclic feedings today given she was BiPAP overnight. Psych consulted. Likely DC tomorrow or Hospitalist Physical - Constitutional Vitals: Temp Pulse Resp BP Pulse Ox 98.1 F 72 17 110/30 99 04/03/21 08:00 04/03/21 13:01 04/03/21 13:01 04/03/21 13:01 04/03/21 13:01 General appearance: Present: no acute distress, obese - EENT Eyes: Present: PERRL, EOM intact ENT: hearing intact, clear oral mucosa, dentition normal - Neck Neck: Present: normal ROM - Respiratory Respiratory effort: normal Respiratory: bilateral: diminished - Cardiovascular Rhythm: regular Heart Sounds: Present: S1 & S2. Absent: systolic murmur, diastolic murmur - Extremities Extremities: no ischemia, pulses intact, pulses symmetrical, normal temperature, normal color Peripheral Pulses: within normal limits - Abdominal General gastrointestinal: soft, non-tender, non-distended, normal bowel sounds - Integumentary Integumentary: Present: warm, dry - Psychiatric Psychiatric: cooperative, agitated - Neurologic Neurologic: CNII-XII intact, no focal deficits, moves all extremities - Allied Health Allied health notes reviewed: nursing, RT, social work HEART Score - HEART Score Troponin: Troponin T < 0.010 ng/mL (0.00-0.029) 03/29/21 09:24 Results - Labs CBC & Chem 7: 04/02/21 04:30 04/02/21 04:30 Labs: Laboratory Last Values WBC 17.3 K/mm3 (4.5-11.0) H 04/02/21 04:30 RBC 3.74 M/mm3 (3.65-5.03) 04/02/21 04:30 Hgb 8.7 gm/dl (10.1-14.3) L 04/02/21 04:30 Hct 30.1 % (30.3-42.9) L 04/02/21 04:30 MCV 81 fl (79-97) 04/02/21 04:30 MCH 23 pg (28-32) L 04/02/21 04:30 MCHC 29 % (30-34) L 04/02/21 04:30 RDW 22.4 % (13.2-15.2) H 04/02/21 04:30 Plt Count 521 K/mm3 (140-440) H 04/02/21 04:30 Power % (Auto) Environmental Solutions Engineer 03/24/21 08:03 Add Manual Diff Complete 03/26/21 05:35 Total Counted 100 03/26/21 05:35 Seg Neuts % (Manual) 72.0 % (40.0-70.0) H 03/26/21 05:35 Band Neutrophils % 5.0 % 03/26/21 05:35 Lymphocytes % (Manual) 6.0 % (13.4-35.0) L 03/26/21 05:35 Reactive Lymphs % (Man) 5.0 % 03/19/21 04:59 Monocytes % (Manual) 8.0 % (0.0-7.3) H 03/26/21 05:35 Metamyelocytes % 3.0 % 03/26/21 05:35 Myelocytes % 5.0 % 03/26/21 05:35 Promyelocytes % 1.0 % 03/26/21 05:35 Nucleated RBC % Not Reportable 03/26/21 05:35 Seg Neutrophils # Man 14.4 K/mm3 (1.8-7.7) H 03/26/21 05:35 Band Neutrophils # 1.0 K/mm3 03/26/21 05:35 Lymphocytes # (Manual) 1.2 K/mm3 (1.2-5.4) 03/26/21 05:35 Abs React Lymphs (Man) 0.0 K/mm3 03/26/21 05:35 Monocytes # (Manual) 1.6 K/mm3 (0.0-0.8) H 03/26/21 05:35 Eosinophils # (Manual) 0.0 K/mm3 (0.0-0.4) 03/26/21 05:35 Basophils # (Manual) 0.0 K/mm3 (0.0-0.1) 03/26/21 05:35 Metamyelocytes # 0.6 K/mm3 03/26/21 05:35 Myelocytes # 1.0 K/mm3 03/26/21 05:35 Promyelocytes # 0.2 K/mm3 03/26/21 05:35 Blast Cells # 0.0 K/mm3 03/26/21 05:35 WBC Morphology Not Reportable 03/26/21 05:35 Hypersegmented Neuts Not Reportable 03/26/21 05:35 Hyposegmented Neuts Not Reportable 03/26/21 05:35 Hypogranular Neuts Not Reportable 03/26/21 05:35 Smudge Cells Not Reportable 03/26/21 05:35 Toxic Granulation Not Reportable 03/26/21 05:35 Toxic Vacuolation Not Reportable 03/26/21 05:35 Dohle Bodies Not Reportable 03/26/21 05:35 Pelger-Huet Anomaly Not Reportable 03/26/21 05:35 Florentino Rods Not Reportable 03/26/21 05:35 Platelet Estimate Consistent w auto 03/26/21 05:35 Clumped Platelets Not Reportable 03/26/21 05:35 Plt Clumps, EDTA Not Reportable 03/26/21 05:35 Large Platelets 1+ 03/26/21 05:35 Giant Platelets Not Reportable 03/26/21 05:35 Platelet Satelliting Not Reportable 03/26/21 05:35 Plt Morphology Comment Not Reportable 03/26/21 05:35 RBC Morphology Not Reportable 03/26/21 05:35 Dimorphic RBCs Not Reportable 03/26/21 05:35 Polychromasia 1+ 03/26/21 05:35 Hypochromasia 2+ 03/26/21 05:35 Poikilocytosis 1+ 03/26/21 05:35 Anisocytosis 2+ 03/26/21 05:35 Microcytosis Not Reportable 03/26/21 05:35 Macrocytosis Not Reportable 03/26/21 05:35 Spherocytes Not Reportable 03/26/21 05:35 Pappenheimer Bodies Not Reportable 03/26/21 05:35 Sickle Cells Not Reportable 03/26/21 05:35 Target Cells 1+ 03/26/21 05:35 Tear Drop Cells 1+ 03/26/21 05:35 Ovalocytes Not Reportable 03/26/21 05:35 Stomatocytes 1+ 03/26/21 05:35 Helmet Cells Not Reportable 03/26/21 05:35 [place] Bodies Not Reportable 03/26/21 05:35 [place] Rings Not Reportable 03/26/21 05:35 Marcelo Cells Not Reportable 03/26/21 05:35 Bite Cells Not Reportable 03/26/21 05:35 Crenated Cell Not Reportable 03/26/21 05:35 Elliptocytes Not Reportable 03/26/21 05:35 Acanthocytes (Spur) Not Reportable 03/26/21 05:35 Rouleaux Not Reportable 03/26/21 05:35 Hemoglobin C Crystals Not Reportable 03/26/21 05:35 Schistocytes 1+ 03/26/21 05:35 Malaria parasites Not Reportable 03/26/21 05:35 Maykel Bodies Not Reportable 03/26/21 05:35 Hem Pathologist Commnt No 03/26/21 05:35 PT 12.6 Sec. (12.2-14.9) 03/17/21 17:37 INR 0.85 (0.87-1.13) L 03/17/21 17:37 APTT 23.3 Sec. (24.2-36.6) L 03/17/21 17:37 D-Dimer 947.92 ng/mlDDU (0-234) H 03/17/21 17:37 ABG pH 7.477 (7.320-7.450) H 03/24/21 08:57 POC ABG pCO2 56.9 mmHg (32.0-48.0) H 03/24/21 08:57 ABG pCO2 72.7 mm Hg 03/23/21 04:50 POC ABG pO2 100.6 mmHg (83-108) 03/24/21 08:57 ABG pO2 70.7 mm Hg (80.0-90.0) L 03/23/21 04:50 POC ABG HCO3 41.1 03/24/21 08:57 ABG HCO3 41.7 mmol/L (20.0-26.0) H 03/23/21 04:50 ABG O2 Saturation 98.3 (0-100) 03/24/21 08:57 ABG O2 Content 7.8 (0.0-44) 03/23/21 04:50 POC ABG Base Excess 15.8 03/24/21 08:57 ABG Base Excess 15.2 mmol/L (-2.0-3.0) H 03/23/21 04:50 ABG Hemoglobin 8.0 (12.0-17.5) L 03/24/21 08:57 ABG Oxyhemoglobin 96.8 (94-98) 03/24/21 08:57 ABG Carboxyhemoglobin 1.7 % (0.0-5.0) 03/23/21 04:50 ABG Methemoglobin 0.3 (0.0-1.5) 03/24/21 08:57 ABG Sodium 139.1 mmol/L (136.0-145.0) 03/24/21 08:57 ABG Potassium 3.9 mmol/L (3.40-4.50) 03/24/21 08:57 ABG Chloride 93.0 mmol/L (98-107) L 03/24/21 08:57 ABG Glucose 328 mg/dL (65-95) H 03/24/21 08:57 Oxyhemoglobin 96.9 % (95.0-99.0) 03/23/21 04:50 Carboxyhemoglobin 1.2 (0.5-1.5) 03/24/21 08:57 FiO2 40 % 03/23/21 04:50 FiO2 % 40 03/24/21 08:57 Sodium 144 mmol/L (137-145) 04/02/21 04:30 Potassium 4.2 mmol/L (3.6-5.0) 04/02/21 04:30 Chloride 100.6 mmol/L (98-107) 04/02/21 04:30 Carbon Dioxide 33 mmol/L (22-30) H 04/02/21 04:30 Anion Gap 15 mmol/L 04/02/21 04:30 BUN 13 mg/dL (7-17) 04/02/21 04:30 Creatinine 0.4 mg/dL (0.6-1.2) L 04/02/21 04:30 Estimated GFR > 60 ml/min 04/02/21 04:30 BUN/Creatinine Ratio 33 % 04/02/21 04:30 Glucose 70 mg/dL (65-100) 04/02/21 04:30 POC Glucose 101 mg/dL (70-105) 04/03/21 11:45 Lactic Acid 4.00 mmol/L (0.7-2.0) H* 03/17/21 23:36 Calcium 8.7 mg/dL (8.4-10.2) 04/02/21 04:30 Phosphorus 4.50 mg/dL (2.5-4.5) 03/31/21 04:41 Magnesium 2.20 mg/dL (1.7-2.3) 03/31/21 04:41 Total Bilirubin 0.30 mg/dL (0.1-1.2) 03/26/21 05:35 Direct Bilirubin < 0.2 mg/dL (0-0.2) 03/19/21 12:00 Indirect Bilirubin 0.1 mg/dL 03/19/21 12:00 AST 35 units/L (5-40) 03/26/21 05:35 ALT 169 units/L (7-56) H 03/26/21 05:35 Alkaline Phosphatase 138 units/L (35-129) H 03/26/21 05:35 Ammonia 26.0 umol/L (25-60) 03/19/21 12:00 Total Creatine Kinase 123 units/L (30-135) 03/29/21 09:24 CK-MB (CK-2) 1.5 ng/mL (0.0-4.0) 03/29/21 09:24 CK-MB (CK-2) Rel Index 1.2 (0-4) 03/29/21 09:24 Troponin T < 0.010 ng/mL (0.00-0.029) 03/29/21 09:24 NT-Pro-B Natriuret Pep 576.0 pg/mL (0-900) 03/17/21 17:36 Total Protein 5.5 g/dL (6.3-8.2) L 03/26/21 05:35 Albumin 3.2 g/dL (3.9-5) L 03/26/21 05:35 Albumin/Globulin Ratio 1.4 % 03/26/21 05:35 Triglycerides 189 mg/dL (2-149) H 03/22/21 04:39 Cholesterol 191 mg/dL (50-199) 03/17/21 17:36 LDL Cholesterol Direct 80 mg/dL (50-130) 03/17/21 17:36 HDL Cholesterol 73 mg/dL (40-59) H 03/17/21 17:36 Cholesterol/HDL Ratio 2.61 % 03/17/21 17:36 Amylase 78 units/L (27-131) 03/19/21 Unknown Lipase 12 units/L (13-60) L 03/19/21 Unknown TSH 3.510 mlU/mL (0.270-4.200) 03/17/21 22:57 Arterial Blood Glucose 328 mg/dL (65-95) H 03/24/21 08:57 Arterial Blood Ionized Calcium 4.5 mg/dL (4.6-5.3) L 03/24/21 08:57 Urine Color Mayuri (Yellow) 03/17/21 19:42 Urine Turbidity Slightly-cloudy (Clear) 03/17/21 19:42 Urine pH 7.0 (5.0-7.0) 03/17/21 19:42 Ur Specific [place] 1.015 (1.003-1.030) 03/17/21 19:42 Urine Protein 100 mg/dl mg/dL (Negative) 03/17/21 19:42 Urine Glucose (UA) Neg mg/dL (Negative) 03/17/21 19:42 Urine Ketones 20 mg/dL (Negative) 03/17/21 19:42 Urine Blood Sm (Negative) 03/17/21 19:42 Urine Nitrite Neg (Negative) 03/17/21 19:42 Urine Bilirubin Neg (Negative) 03/17/21 19:42 Urine Urobilinogen 2.0 mg/dL (<2.0) 03/17/21 19:42 Ur Leukocyte Esterase Neg (Negative) 03/17/21 19:42 Urine WBC (Auto) 4.0 /HPF (0.0-6.0) 03/17/21 19:42 Urine RBC (Auto) 6.0 /HPF (0.0-6.0) 03/17/21 19:42 U Epithel Cells (Auto) 5.0 /HPF (0-13.0) 03/17/21 19:42 Urine Bacteria (Auto) 1+ /HPF (Negative) 03/17/21 19:42 Urine Mucus 1+ /HPF 03/17/21 19:42 Urine Yeast (Budding) Few /HPF 03/17/21 19:42 Acetaminophen 5.0 ug/mL (10.0-30.0) L 03/18/21 23:07 Coronavirus (PCR) Negative (Negative) 03/19/21 Unknown Blood Type A POSITIVE 03/29/21 09:24 Antibody Screen Negative 03/29/21 09:24 Crossmatch See Detail 03/29/21 09:24 Wallis/IV: Voiding Method External Female Catheter Active Medications - Current Medications Current Medications: Generic Name Dose Route Start Last Admin Trade Name Freq PRN Reason Stop Dose Admin Acetaminophen 650 mg 03/18/21 00:05 Acetaminophen 325 Mg Tab PO Q6H PRN Pain MILD(1-3)/Fever >100.5/TOVAR Albuterol 2.5 mg 03/22/21 08:00 Albuterol 2.5 Mg/3 Ml Nebu IH Q6H PRN Wheezing Alprazolam 1 mg 03/26/21 10:53 04/03/21 09:58 Alprazolam 1 Mg Tab PO 1 mg Q8H PRN Administration AGITATION Arformoterol Tartrate 15 mcg 03/24/21 11:00 04/03/21 08:56 Arformoterol 15 Mcg/2 Ml Nebu IH 15 mcg Q12HRT BUTCH Administration Atorvastatin Calcium 10 mg 03/19/21 22:00 04/02/21 21:53 Atorvastatin 10 Mg Tab PO Not Given QHS BUTCH Budesonide 0.5 mg 03/24/21 11:00 04/03/21 08:56 Budesonide 0.5 Mg/2 Ml Nebu IH 0.5 mg Q12HRT BUTCH Administration Buspirone HCl 10 mg 04/03/21 22:00 Buspirone 10 Mg Tab PO BID BUTCH Buspirone HCl 5 mg 04/03/21 11:00 04/03/21 11:48 Buspirone 5 Mg Tab PO 04/03/21 15:00 5 mg ONCE@1100 BUTCH Administration Clonazepam 0.5 mg 04/03/21 15:00 Clonazepam 0.5 Mg Tab PO BID BUTCH Dextrose 0 ml 03/17/21 23:58 03/31/21 05:16 Dextrose 50% In Water (25gm) 50 Ml Syringe IV 10 ml Q30MIN PRN Administration Hypoglycemia Protocol Docusate Sodium 100 mg 03/23/21 10:00 04/03/21 09:59 Docusate Sodium 100 Mg/10 Ml Oral Liqd PO Not Given BID BUTCH Famotidine 20 mg 03/20/21 22:00 04/03/21 09:59 Famotidine 20 Mg Tab FEEDTUBE 20 mg BID BUTCH Administration Fentanyl 50 mcg 03/26/21 10:08 04/02/21 02:03 Fentanyl 100 Mcg/2 Ml Inj IV 50 mcg Q2H PRN Administration Pain, Moderate (4-6) Haloperidol Lactate 5 mg 03/30/21 09:52 04/01/21 08:33 Haloperidol Lactate 5 Mg/1 Ml Inj IV 5 mg Q6H PRN Administration Agitation Heparin Sodium (Porcine) 5,000 unit 03/18/21 06:00 04/03/21 13:18 Heparin 5,000 Unit/1 Ml Vial SUB-Q 5,000 unit Q8HR BUTCH Administration Hydralazine HCl 5 mg 03/29/21 10:56 Hydralazine 20 Mg/1 Ml Inj IV Q4HR PRN SBP >160 Hydrophilic Ointment 1 applic 03/17/21 17:35 Lip Therapy Vaseline TP Q2HR PRN Dry Lips Dexmedetomidine HCl 400 mcg/ 104 mls @ 4.306 mls/hr 03/21/21 13:00 04/03/21 12:23 Sodium Chloride IV 0.6 mcg/kg/hr TITRATE BUTCH 12.917 mls/hr Administration Protocol 0.2 MCG/KG/HR Insulin Human Lispro 0 unit 03/19/21 12:00 04/03/21 11:51 Insulin Lispro 100 Unit/Ml SUB-Q Not Given Q6HR [facility] Protocol Lorazepam 0.5 mg 03/30/21 09:53 04/01/21 16:04 Lorazepam 2 Mg/Ml Vial IV 0.5 mg Q4H PRN Administration Anxiety Magnesium Hydroxide 30 ml 03/18/21 00:05 03/24/21 09:36 Magnesium Hydroxide (Mom) Oral Liqd Udc PO 30 ml Q4H PRN Administration Constipation Metoprolol Tartrate 25 mg 03/20/21 22:00 04/03/21 09:58 Metoprolol Tartrate 25 Mg Tab PO 25 mg BID BUTCH Administration Morphine Sulfate 2 mg 03/18/21 00:05 Morphine 2 Mg/1 Ml Inj IV Q4H PRN Pain, Moderate (4-6) Morphine Sulfate 4 mg 03/18/21 00:05 04/03/21 11:48 Morphine 4 Mg/1 Ml Inj IV 4 mg Q4H PRN Administration Pain , Severe (7-10) Multi-Ingred Cream/Lotion/Oil/Oint 1 applic 03/17/21 17:35 Mineral Oil/Petrolatum, White Ophth Oint 3.5 Gm OU Q4HR PRN Dry Eye(s) Prednisone 15 mg 04/03/21 10:00 04/03/21 09:57 Prednisone 5 Mg Tab PO 15 mg QDAY BUTCH Administration Senna/Docusate Sodium 1 tab 03/17/21 22:00 04/03/21 09:59 Sennosides/Docusate Sodium 8.6/50 Mg Tab FEEDTUBE Not Given BID BUTCH Simple Syrup 15 ml 03/19/21 18:16 Simple Syrup 15 Ml FEEDTUBE PRN PRN Hypoglycemia Simple Syrup 30 ml 03/19/21 18:16 Simple Syrup 15 Ml FEEDTUBE PRN PRN Hypoglycemia Sodium Chloride 10 ml 03/18/21 10:00 04/03/21 10:00 Sodium Chloride 0.9% 10 Ml Flush Syringe IV 10 ml BID BUTCH Administration Sodium Chloride 10 ml 03/17/21 23:58 03/22/21 23:20 Sodium Chloride 0.9% 10 Ml Flush Syringe IV 10 ml PRN PRN Administration LINE FLUSH Nutrition/Malnutrition Assess - Dietary Evaluation Nutrition/Malnutrition Findings: Nutrition Notes Start: 03/18/21 09:46 Freq: Status: Active Protocol: Document 04/03/21 10:01 PAM (Rec: 04/03/21 10:45 PAM [id number]) Nutrition Notes Current Diet Cyclic 12 hr TF-Vital AF 1.2 Brenden @ 88 ml/hr (since D 04/03) . Labs/Tests 04/02: CO2 33, Crea 0.4, Glu 70, POC Glu 118. Pertinent Medications 04/03: Nutritionally unremarkable. Height 5 ft 6 in Weight 82.8 kg [place] Body Weight (kg) 59.09 BMI 29.5 Weight change and time frame No body weight change reported . Weight Status Overweight Subjective/Other Information RD consult for routine F/U on TF continuation. RN called to request adjust TF to 12 hours Cyclic rate. Percent of energy/protein needs met: Prescribed Vital AF 1.2 Brenden @ 88 ml/hr provides for energy/ protein needs (1,260 Kcal/79 g ) during LOS. #1 Nutrition Diagnosis Inadequate oral intake Comments: RN requested adjust TF to 12 hrs cyclic rate. Diagnosis Progress(for reassessment Improved documentation) Is patient on ventilator? No Is Patient Ambulatory and/or Out of Bed No REE-([place]-St. Jeor-confined to bed) 2001.942 Calculation Used for Recommendations [place]-St Jeor Additional Notes Pro needs 1.2-2g/k-166g/ day Fluid needs 1ml/kcal Nutrition Intervention Nutrition Support: Vital AF 1.2 Brenden @ 88 ml/hr. Flush: 140 ml water Q 4 hr. Kcal 1,260 Protein (gm) 79 Carbohydrates (gm) 116 Fat (gm) 57 Fluid (mL) 852 Fiber (gm) 5 % RDI: 75% Kcal; 80% AA. Goal #1 Provide at least 75% of energy /protein needs through Enteral Feeding during LOS. Follow-Up By: 04/05/21 Additional Comments TF re-start, TF formula change /tolerance, resp status, BG labs <LEANDER ARAIZA - Last Filed: 04/08/21 14:27> Assessment and Plan Assessment and plan: I saw and evaluated the patient. Discussed with the nurse practitioner and agree with their findings and plan as documented in this note. Hospitalist Physical - Constitutional Vitals: Temp Pulse Resp BP Pulse Ox 98.4 F 84 18 124/70 100 04/08/21 03:51 04/08/21 13:54 04/08/21 13:54 04/08/21 03:51 04/08/21 13:54 HEART Score - HEART Score Troponin: Troponin T < 0.010 ng/mL (0.00-0.029) 03/29/21 09:24 Results - Labs CBC & Chem 7: 04/04/21 04:21 04/04/21 04:21 Labs: Laboratory Last Values WBC 14.4 K/mm3 (4.5-11.0) H 04/04/21 04:21 RBC 4.13 M/mm3 (3.65-5.03) 04/04/21 04:21 Hgb 9.9 gm/dl (10.1-14.3) L 04/04/21 04:21 Hct 33.2 % (30.3-42.9) 04/04/21 04:21 MCV 80 fl (79-97) 04/04/21 04:21 MCH 24 pg (28-32) L 04/04/21 04:21 MCHC 30 % (30-34) 04/04/21 04:21 RDW 23.0 % (13.2-15.2) H 04/04/21 04:21 Plt Count 572 K/mm3 (140-440) H 04/04/21 04:21 Power % (Auto) Environmental Solutions Engineer 03/24/21 08:03 Add Manual Diff Complete 03/26/21 05:35 Total Counted 100 03/26/21 05:35 Seg Neuts % (Manual) 72.0 % (40.0-70.0) H 03/26/21 05:35 Band Neutrophils % 5.0 % 03/26/21 05:35 Lymphocytes % (Manual) 6.0 % (13.4-35.0) L 03/26/21 05:35 Reactive Lymphs % (Man) 5.0 % 03/19/21 04:59 Monocytes % (Manual) 8.0 % (0.0-7.3) H 03/26/21 05:35 Metamyelocytes % 3.0 % 03/26/21 05:35 Myelocytes % 5.0 % 03/26/21 05:35 Promyelocytes % 1.0 % 03/26/21 05:35 Nucleated RBC % Not Reportable 03/26/21 05:35 Seg Neutrophils # Man 14.4 K/mm3 (1.8-7.7) H 03/26/21 05:35 Band Neutrophils # 1.0 K/mm3 03/26/21 05:35 Lymphocytes # (Manual) 1.2 K/mm3 (1.2-5.4) 03/26/21 05:35 Abs React Lymphs (Man) 0.0 K/mm3 03/26/21 05:35 Monocytes # (Manual) 1.6 K/mm3 (0.0-0.8) H 03/26/21 05:35 Eosinophils # (Manual) 0.0 K/mm3 (0.0-0.4) 03/26/21 05:35 Basophils # (Manual) 0.0 K/mm3 (0.0-0.1) 03/26/21 05:35 Metamyelocytes # 0.6 K/mm3 03/26/21 05:35 Myelocytes # 1.0 K/mm3 03/26/21 05:35 Promyelocytes # 0.2 K/mm3 03/26/21 05:35 Blast Cells # 0.0 K/mm3 03/26/21 05:35 WBC Morphology Not Reportable 03/26/21 05:35 Hypersegmented Neuts Not Reportable 03/26/21 05:35 Hyposegmented Neuts Not Reportable 03/26/21 05:35 Hypogranular Neuts Not Reportable 03/26/21 05:35 Smudge Cells Not Reportable 03/26/21 05:35 Toxic Granulation Not Reportable 03/26/21 05:35 Toxic Vacuolation Not Reportable 03/26/21 05:35 Dohle Bodies Not Reportable 03/26/21 05:35 Pelger-Huet Anomaly Not Reportable 03/26/21 05:35 Florentino Rods Not Reportable 03/26/21 05:35 Platelet Estimate Consistent w auto 03/26/21 05:35 Clumped Platelets Not Reportable 03/26/21 05:35 Plt Clumps, EDTA Not Reportable 03/26/21 05:35 Large Platelets 1+ 03/26/21 05:35 Giant Platelets Not Reportable 03/26/21 05:35 Platelet Satelliting Not Reportable 03/26/21 05:35 Plt Morphology Comment Not Reportable 03/26/21 05:35 RBC Morphology Not Reportable 03/26/21 05:35 Dimorphic RBCs Not Reportable 03/26/21 05:35 Polychromasia 1+ 03/26/21 05:35 Hypochromasia 2+ 03/26/21 05:35 Poikilocytosis 1+ 03/26/21 05:35 Anisocytosis 2+ 03/26/21 05:35 Microcytosis Not Reportable 03/26/21 05:35 Macrocytosis Not Reportable 03/26/21 05:35 Spherocytes Not Reportable 03/26/21 05:35 Pappenheimer Bodies Not Reportable 03/26/21 05:35 Sickle Cells Not Reportable 03/26/21 05:35 Target Cells 1+ 03/26/21 05:35 Tear Drop Cells 1+ 03/26/21 05:35 Ovalocytes Not Reportable 03/26/21 05:35 Stomatocytes 1+ 03/26/21 05:35 Helmet Cells Not Reportable 03/26/21 05:35 [place] Bodies Not Reportable 03/26/21 05:35 [place] Rings Not Reportable 03/26/21 05:35 [place] Cells Not Reportable 03/26/21 05:35 Bite Cells Not Reportable 03/26/21 05:35 Crenated Cell Not Reportable 03/26/21 05:35 Elliptocytes Not Reportable 03/26/21 05:35 Acanthocytes (Spur) Not Reportable 03/26/21 05:35 Rouleaux Not Reportable 03/26/21 05:35 Hemoglobin C Crystals Not Reportable 03/26/21 05:35 Schistocytes 1+ 03/26/21 05:35 Malaria parasites Not Reportable 03/26/21 05:35 [place] Bodies Not Reportable 03/26/21 05:35 Hem Pathologist Commnt No 03/26/21 05:35 PT 12.6 Sec. (12.2-14.9) 03/17/21 17:37 INR 0.85 (0.87-1.13) L 03/17/21 17:37 APTT 23.3 Sec. (24.2-36.6) L 03/17/21 17:37 D-Dimer 947.92 ng/mlDDU (0-234) H 03/17/21 17:37 ABG pH 7.477 (7.320-7.450) H 03/24/21 08:57 POC ABG pCO2 56.9 mmHg (32.0-48.0) H 03/24/21 08:57 ABG pCO2 72.7 mm Hg 03/23/21 04:50 POC ABG pO2 100.6 mmHg (83-108) 03/24/21 08:57 ABG pO2 70.7 mm Hg (80.0-90.0) L 03/23/21 04:50 POC ABG HCO3 41.1 03/24/21 08:57 ABG HCO3 41.7 mmol/L (20.0-26.0) H 03/23/21 04:50 ABG O2 Saturation 98.3 (0-100) 03/24/21 08:57 ABG O2 Content 7.8 (0.0-44) 03/23/21 04:50 POC ABG Base Excess 15.8 03/24/21 08:57 ABG Base Excess 15.2 mmol/L (-2.0-3.0) H 03/23/21 04:50 ABG Hemoglobin 8.0 (12.0-17.5) L 03/24/21 08:57 ABG Oxyhemoglobin 96.8 (94-98) 03/24/21 08:57 ABG Carboxyhemoglobin 1.7 % (0.0-5.0) 03/23/21 04:50 ABG Methemoglobin 0.3 (0.0-1.5) 03/24/21 08:57 ABG Sodium 139.1 mmol/L (136.0-145.0) 03/24/21 08:57 ABG Potassium 3.9 mmol/L (3.40-4.50) 03/24/21 08:57 ABG Chloride 93.0 mmol/L (98-107) L 03/24/21 08:57 ABG Glucose 328 mg/dL (65-95) H 03/24/21 08:57 Oxyhemoglobin 96.9 % (95.0-99.0) 03/23/21 04:50 Carboxyhemoglobin 1.2 (0.5-1.5) 03/24/21 08:57 FiO2 40 % 03/23/21 04:50 FiO2 % 40 03/24/21 08:57 Sodium 146 mmol/L (137-145) H 04/04/21 04:21 Potassium 4.1 mmol/L (3.6-5.0) 04/04/21 04:21 Chloride 96.8 mmol/L (98-107) L 04/04/21 04:21 Carbon Dioxide 35 mmol/L (22-30) H 04/04/21 04:21 Anion Gap 18 mmol/L 04/04/21 04:21 BUN 9 mg/dL (7-17) 04/04/21 04:21 Creatinine 0.4 mg/dL (0.6-1.2) L 04/04/21 04:21 Estimated GFR > 60 ml/min 04/04/21 04:21 BUN/Creatinine Ratio 23 % 04/04/21 04:21 Glucose 111 mg/dL (65-100) H 04/04/21 04:21 POC Glucose 125 mg/dL (70-105) H 04/08/21 11:54 Lactic Acid 4.00 mmol/L (0.7-2.0) H* 03/17/21 23:36 Calcium 9.5 mg/dL (8.4-10.2) 04/04/21 04:21 Phosphorus 4.50 mg/dL (2.5-4.5) 03/31/21 04:41 Magnesium 2.20 mg/dL (1.7-2.3) 03/31/21 04:41 Total Bilirubin 0.30 mg/dL (0.1-1.2) 03/26/21 05:35 Direct Bilirubin < 0.2 mg/dL (0-0.2) 03/19/21 12:00 Indirect Bilirubin 0.1 mg/dL 03/19/21 12:00 AST 35 units/L (5-40) 03/26/21 05:35 ALT 169 units/L (7-56) H 03/26/21 05:35 Alkaline Phosphatase 138 units/L (35-129) H 03/26/21 05:35 Ammonia 26.0 umol/L (25-60) 03/19/21 12:00 Total Creatine Kinase 123 units/L (30-135) 03/29/21 09:24 CK-MB (CK-2) 1.5 ng/mL (0.0-4.0) 03/29/21 09:24 CK-MB (CK-2) Rel Index 1.2 (0-4) 03/29/21 09:24 Troponin T < 0.010 ng/mL (0.00-0.029) 03/29/21 09:24 NT-Pro-B Natriuret Pep 576.0 pg/mL (0-900) 03/17/21 17:36 Total Protein 5.5 g/dL (6.3-8.2) L 03/26/21 05:35 Albumin 3.2 g/dL (3.9-5) L 03/26/21 05:35 Albumin/Globulin Ratio 1.4 % 03/26/21 05:35 Triglycerides 189 mg/dL (2-149) H 03/22/21 04:39 Cholesterol 191 mg/dL (50-199) 03/17/21 17:36 LDL Cholesterol Direct 80 mg/dL (50-130) 03/17/21 17:36 HDL Cholesterol 73 mg/dL (40-59) H 03/17/21 17:36 Cholesterol/HDL Ratio 2.61 % 03/17/21 17:36 Amylase 78 units/L (27-131) 03/19/21 Unknown Lipase 12 units/L (13-60) L 03/19/21 Unknown TSH 3.510 mlU/mL (0.270-4.200) 03/17/21 22:57 Arterial Blood Glucose 328 mg/dL (65-95) H 03/24/21 08:57 Arterial Blood Ionized Calcium 4.5 mg/dL (4.6-5.3) L 03/24/21 08:57 Urine Color [place]uri (Yellow) 03/17/21 19:42 Urine Turbidity Slightly-cloudy (Clear) 03/17/21 19:42 Urine pH 7.0 (5.0-7.0) 03/17/21 19:42 Ur Specific [place] 1.015 (1.003-1.030) 03/17/21 19:42 Urine Protein 100 mg/dl mg/dL (Negative) 03/17/21 19:42 Urine Glucose (UA) Neg mg/dL (Negative) 03/17/21 19:42 Urine Ketones 20 mg/dL (Negative) 03/17/21 19:42 Urine Blood Sm (Negative) 03/17/21 19:42 Urine Nitrite Neg (Negative) 03/17/21 19:42 Urine Bilirubin Neg (Negative) 03/17/21 19:42 Urine Urobilinogen 2.0 mg/dL (<2.0) 03/17/21 19:42 Ur Leukocyte Esterase Neg (Negative) 03/17/21 19:42 Urine WBC (Auto) 4.0 /HPF (0.0-6.0) 03/17/21 19:42 Urine RBC (Auto) 6.0 /HPF (0.0-6.0) 03/17/21 19:42 U Epithel Cells (Auto) 5.0 /HPF (0-13.0) 03/17/21 19:42 Urine Bacteria (Auto) 1+ /HPF (Negative) 03/17/21 19:42 Urine Mucus 1+ /HPF 03/17/21 19:42 Urine Yeast (Budding) Few /HPF 03/17/21 19:42 Acetaminophen 5.0 ug/mL (10.0-30.0) L 03/18/21 23:07 Coronavirus (PCR) Negative (Negative) 03/19/21 Unknown Blood Type A POSITIVE 03/29/21 09:24 Antibody Screen Negative 03/29/21 09:24 Crossmatch See Detail 03/29/21 09:24 [place]/IV: Voiding Method External Female Catheter Active Medications - Current Medications Current Medications: Generic Name Dose Route Start Last Admin Trade Name Freq PRN Reason Stop Dose Admin Acetaminophen 650 mg 03/18/21 00:05 04/04/21 06:20 Acetaminophen 325 Mg Tab PO 650 mg Q6H PRN Administration Pain MILD(1-3)/Fever >100.5/TOVAR Albuterol 2.5 mg 03/22/21 08:00 04/03/21 15:40 Albuterol 2.5 Mg/3 Ml Nebu IH 2.5 mg Q6H PRN Administration Wheezing Alprazolam 1 mg 03/26/21 10:53 04/08/21 00:36 Alprazolam 1 Mg Tab PO 1 mg Q8H PRN Administration AGITATION Arformoterol Tartrate 15 mcg 03/24/21 11:00 04/08/21 08:16 Arformoterol 15 Mcg/2 Ml Nebu IH 15 mcg Q12HRT BUTCH Administration Atorvastatin Calcium 10 mg 03/19/21 22:00 04/07/21 22:46 Atorvastatin 10 Mg Tab PO 10 mg QHS BUTCH Administration Budesonide 0.5 mg 03/24/21 11:00 04/08/21 08:16 Budesonide 0.5 Mg/2 Ml Nebu IH 0.5 mg Q12HRT BUTCH Administration Buspirone HCl 30 mg 04/04/21 16:00 04/08/21 12:33 Buspirone 10 Mg Tab PO 30 mg TID BUTCH Administration Clonazepam 0.5 mg 04/03/21 15:00 04/08/21 12:34 Clonazepam 0.5 Mg Tab PO 0.5 mg BID BUTCH Administration Dextrose 0 ml 03/17/21 23:58 03/31/21 05:16 Dextrose 50% In Water (25gm) 50 Ml Syringe IV 10 ml Q30MIN PRN Administration Hypoglycemia Protocol Diltiazem HCl 60 mg 04/04/21 18:00 04/08/21 05:46 Diltiazem 60 Mg Tab FEEDTUBE 60 mg Q8HR BUTCH Administration Docusate Sodium 100 mg 03/23/21 10:00 04/08/21 12:34 Docusate Sodium 100 Mg/10 Ml Oral Liqd PO 100 mg BID BUTCH Administration Duloxetine HCl 30 mg 04/05/21 10:00 04/08/21 12:34 Duloxetine 30 Mg Cap PO 30 mg QDAY BUTCH Administration Famotidine 20 mg 03/20/21 22:00 04/08/21 12:34 Famotidine 20 Mg Tab FEEDTUBE 20 mg BID BUTCH Administration Haloperidol Lactate 5 mg 03/30/21 09:52 04/01/21 08:33 Haloperidol Lactate 5 Mg/1 Ml Inj IV 5 mg Q6H PRN Administration Agitation Heparin Sodium (Porcine) 5,000 unit 03/18/21 06:00 04/08/21 05:47 Heparin 5,000 Unit/1 Ml Vial SUB-Q 5,000 unit Q8HR BUTCH Administration Hydralazine HCl 5 mg 03/29/21 10:56 Hydralazine 20 Mg/1 Ml Inj IV Q4HR PRN SBP >160 Hydrophilic Ointment 1 applic 03/17/21 17:35 Lip Therapy Vaseline TP Q2HR PRN Dry Lips Insulin Human Lispro 0 unit 03/19/21 12:00 04/08/21 05:30 Insulin Lispro 100 Unit/Ml SUB-Q Not Given Q6HR [facility] Protocol Lorazepam 0.5 mg 03/30/21 09:53 04/08/21 08:25 Lorazepam 2 Mg/Ml Vial IV 0.5 mg Q4H PRN Administration Anxiety Magnesium Hydroxide 30 ml 03/18/21 00:05 03/24/21 09:36 Magnesium Hydroxide (Mom) Oral Liqd Udc PO 30 ml Q4H PRN Administration Constipation Metoprolol Tartrate 25 mg 03/20/21 22:00 04/08/21 12:33 Metoprolol Tartrate 25 Mg Tab PO 25 mg BID BUTCH Administration Morphine Sulfate 2 mg 03/18/21 00:05 04/08/21 08:25 Morphine 2 Mg/1 Ml Inj IV 2 mg Q4H PRN Administration Pain, Moderate (4-6) Morphine Sulfate 4 mg 03/18/21 00:05 04/03/21 17:21 Morphine 4 Mg/1 Ml Inj IV 4 mg Q4H PRN Administration Pain , Severe (7-10) Multi-Ingred Cream/Lotion/Oil/Oint 1 applic 03/17/21 17:35 Mineral Oil/Petrolatum, White Ophth Oint 3.5 Gm OU Q4HR PRN Dry Eye(s) Prednisone 10 mg 04/06/21 20:00 04/08/21 12:33 Prednisone 5 Mg Tab PO 10 mg QDAY BUTCH Administration Senna/Docusate Sodium 1 tab 03/17/21 22:00 04/08/21 12:34 Sennosides/Docusate Sodium 8.6/50 Mg Tab FEEDTUBE 1 tab BID BUTCH Administration Simple Syrup 15 ml 03/19/21 18:16 04/04/21 22:02 Simple Syrup 15 Ml FEEDTUBE 15 ml PRN PRN Administration Hypoglycemia Simple Syrup 30 ml 03/19/21 18:16 Simple Syrup 15 Ml FEEDTUBE PRN PRN Hypoglycemia Sodium Chloride 10 ml 03/18/21 10:00 04/08/21 12:35 Sodium Chloride 0.9% 10 Ml Flush Syringe IV 10 ml BID BUTCH Administration Sodium Chloride 10 ml 03/17/21 23:58 03/22/21 23:20 Sodium Chloride 0.9% 10 Ml Flush Syringe IV 10 ml PRN PRN Administration LINE FLUSH Venlafaxine HCl 25 mg 04/06/21 13:00 04/08/21 12:34 Venlafaxine 25 Mg Tab PO 25 mg QDAY BUTCH Administration Nutrition/Malnutrition Assess - Dietary Evaluation Nutrition/Malnutrition Findings: Nutrition Notes Start: 03/18/21 09:46 Freq: Status: Active Protocol: Document 04/05/21 18:19 PAM (Rec: 04/05/21 18:26 PAM [id number]) Nutrition Notes Initial or Follow up Brief Note Current Diet Cyclic 12 hr TF-Vital AF 1.2 Brenden @ 88 ml/hr (since D 04/03) . Height 5 ft 6 in Weight 82.8 kg [place] Body Weight (kg) 59.09 BMI 29.5 Weight change and time frame No body weight change reported . Weight Status Overweight Subjective/Other Information RD consult for routine F/U on TF continuation. TF continues Cyclic as prescribed, therefore, well tolerated. Percent of energy/protein needs met: Prescribed Vital AF 1.2 Brenden @ 88 ml/hr provides for energy/ protein needs (1,260 Kcal/79 g ) during LOS, 75% Kcal; 80% AA . #1 Nutrition Diagnosis Inadequate oral intake Comments: Cycle mode well tolerated. Diagnosis Progress(for reassessment Improved documentation) Nutrition Intervention Nutrition Support: Vital AF 1.2 Brenden @ 88 ml/hr. Flush: 140 ml water Q 4 hr. Kcal 1,260 Protein (gm) 79 Carbohydrates (gm) 116 Fat (gm) 57 Fluid (mL) 852 Fiber (gm) 5 % RDI: 75% Kcal; 80% AA. Goal #1 Provide at least 75% of energy /protein needs through Enteral Feeding during LOS. Follow-Up By: 04/12/21 Additional Comments Continue monitoring TF tolerance, and BM.
[2021-04-03] MEDS: clonazePAM 0.5 MG TAB PO SCH ×2 (14:53→22:00)
[2021-04-03 15:44] LABS: Mean Corpuscular HGB Conc 29 % (30-34); Mean Corpuscular Volume 80 fl (79-97); Platelet Count 662 K/mm3 (140-440); Red Blood Count 4.18 M/mm3 (3.65-5.03)
[2021-04-03 15:45] LABS: Hematocrit 33.2 % (30.3-42.9); Hemoglobin 9.6 gm/dl (10.1-14.3); Red Cell Distribution Width 23.4 % (13.2-15.2)
[2021-04-03 16:05] LABS: Blood Urea Nitrogen 10 mg/dL (7-17); Hemolysis Index 72
[2021-04-03 16:30] LABS: BUN/Creatinine Ratio 25
[2021-04-03] MEDS: busPIRone 10 MG TAB PO SCH (22:00)
[2021-04-03] MEDS: MORPHINE 2 MG/1 ML INJ IV PRN (22:58)
[2021-04-04] MEDS: MORPHINE 2 MG/1 ML INJ IV PRN ×2 (03:27→20:08)
[2021-04-04 05:13] LABS: Mean Corpuscular HGB Conc 30 % (30-34); Mean Corpuscular Volume 80 fl (79-97); Platelet Count 572 K/mm3 (140-440); Red Blood Count 4.13 M/mm3 (3.65-5.03)
[2021-04-04 05:43] LABS: Hematocrit 33.2 % (30.3-42.9); Hemoglobin 9.9 gm/dl (10.1-14.3)
[2021-04-04 05:44] LABS: Blood Urea Nitrogen 9 mg/dL (7-17); Calcium 9.5 mg/dL (8.4-10.2); Hemolysis Index 7
[2021-04-04 05:45] LABS: BUN/Creatinine Ratio 23
[2021-04-04] MEDS: INSULIN LISPRO 100 UNIT/ML SUB-Q SCH ×4 (06:17→18:07)
[2021-04-04] MEDS: HEPARIN 5,000 UNIT/1 ML VIAL SUB-Q SCH ×3 (06:20→21:53)
[2021-04-04] MEDS: BUDESONIDE 0.5 MG/2 ML NEBU IH SCH ×2 (07:17→20:21)
[2021-04-04] MEDS: ARFORMOTEROL 15 MCG/2 ML NEBU IH SCH ×2 (07:17→20:21)
--- NOTE | 2021-04-04 08:25 | Electrocardiograph Report ---
[facility] Test Date: 2021-03-31 Test Time: 08:46:58 Pat Name: LUIS KHAN Department: Room: A267 Gender: F [place] Hand: HANSEL : 1960 Requested By: HELADIO SANTANA Order Number: [id number] Reading MD: Mirian Aldrich Measurements Intervals [place] Rate: 116 P: 84 IL: 172 QRS: -43 QRSD: 67 T: 84 QT: 305 QTc: 423 Interpretive Statements Poor quality ECG Sinus tachycardia Occasional PACs Left axis deviation Possible old anterior infarct Compared to ECG 03/29/2021 08:03:02 No significant change Electronically Signed On 04-04-2021 8:24:55 EST by Mirian Aldrich
--- NOTE | 2021-04-04 09:18 | Progress Note ---
Assessment and Plan Assessment and plan: Interval history: This is a 60-year-old female with COPD with oxygen dependence currently with palliative care, DM, former nicotine abuse, severe anxiety, GERD, HLD, HTN and PAGE presented to emergency department on 03/17 via EMS with complaints of shortness of breath. On arrival of EMS patient was found to be in SVT with a heart rate of about 200 and blood pressure to be quite elevated with systolic in 200s. She was given 6 mg of adenosine without significant changes subsequently given 12 mg of adenosine with improvement of her heart rate. Upon arrival to the emergency department patient was found to be in atrial fibrillation with RVR and dyspneic. Work-up in the emergency department revealed leukocytosis, lactic acidosis, transaminitis, hypoalbuminemia and a troponin leak. CXR, CT a chest and CT head were unremarkable. Patient was admitted to the hospitalist service with consults to [facility] and cardiology for further work-up of acute on chronic respiratory failure, SVT and hypertensive urgency. Hospital Course to date: 03/18/2021: Patient is intubated and on vent support, Patient is in sinus tachycardia 03/19: COVID-19 PCR negative, remains on ventilatory support, Versed drip changed to propofol. No acute events reported overnight. Tracheal aspirate w ith few gram-positive Cocci. This afternoon, patient went in to the 150s, giving 500 mL NS bolus and fentanyl push to see if it pain related. If persists then will order prn Ativan per Dr. Gage recommendation. 03/20: Restarted on home metoprolol and abdominal ultrasound showed right hydronephrosis. Abd US shows right hydroureteronephrosis and will obtain a dedicated renal US. She seems to more comfortable on propofol and fentanyl 03/21: Patient's FiO2 had to be decreased overnight due to hypoxia and tachycardia. Hyperkalemia noted and given Kayexalate. 1 unit PRBC for hemoglobin 6.8. [facility] plans to extubate tomorrow. Increase in Lantus. 03/22: Transfuse one unit prbc, failed SBT in the AM d/t hypertension. [facility] extubated the patient but she was reintubated within [address] head ordered and pending read. Given kionex x2 for hyperkalemia 03/23: This morning patient was only on Precedex drip and overnight she had agitation, hypertension and tachycardia. RN instructed to place fentanyl drip. Increase in Lantus for better glucose control. Will remove Wallis today. 03/24/2021: no acute events reported overnight. Patient remains intubated and is currently on fentanyl and Precedex. Increase in Lantus due to hyperglycemia. 03/25: no acute events overnight. increase in lantus and decreased steroids today. 04/02: Bipap q hs and optiflow in the AM, remains on precedex. Psych consulted today. 04/03: Patient failed swallow evaluation today and ST recommended PEG tube placement. NG tube was replaced yesterday and tube feeds changed to cyclic feedings today given she was BiPAP overnight. Psych consulted. Likely DC tomorrow or . 04/04: Patient has long standing anxiety history. Needs medication optimization. May uptitrate buspar. PCCM stated that patient did not tolerate klonopin as an OP. Currently working to taper steroids. No GI consult at this time for PEG as PCCM d/w . Will continue to work with CM for hospice placement. Assessment and plan: Neuro: Hepatic/metabolic encephalopathy, h/o severe anxiety, depression -Admit ammonia 116, 03/09 ammonia 26 -Precedex gtt -xanax, ativan, haldol and morphine prn -Buspar increased dose today on hopes to wean of precedex; home cymbalta on hold (cannot crush) -Psych consulted, appreciate recommendations -Avoid delirium -Maintain sleep-wake cycle -SAT when appropriate -CT head on admit with no acute findings -Repeat CT head d/t AMS-> no acute changes Cardio: Hypertensive emergency (resolved), s/p A. fib with RVR and SVT, h/o HTN, HLD -s/p X2 doses of adenosine in the ED -Cardiology consulted, appreciate recommendations -PO metoprolol BID -Resume home statin -Blood pressure monitoring per protocol -Echocardiogram 10/2020 showed EF of 50 to 55%, mild diastolic dysfunction, trace to mild tricuspid regurgitation, mild pulmonary hypertension, RVSP 45 mmHg Resp : Acute on chronic respiratory failure, h/o COPD and PAGE -CCM consulted, appreciate recommendations -CTA chest shows no CT evidence of pulmonary embolism, small right and trace left pleural effusion, upper lobe predominant emphysema -Intubated on 03/17 with 7.00 ETT at 20 at the lips and extubated 03/22 but reintubated shortly after; Self-extubated on 03/29 -weaned to BiPAP q hs, Optiflow in AM -VAP bundle -SPO2 monitoring -Methylprednisone weaning-> PO will be slow wean -nebs per [facility] GI: Transaminitis (resolving), h/o chronic constipation -NTR consulted, appreciate recommendations -RUQ US shows right hydroureteronephrosis and possible gallbladder sludge or gallstones -Renal ultrasound shows mild right-sided hydronephrosis with parenchymal thinning and trace perinephric fluid. -need to follow up outpatient -PPI -BR: senakot S and colace, prn mom -BM 04/01 -24 hours +1632 mL -Failed bedside swallow eval -NGT reinserted and TF changed to cyclic; ST recommends PEG : Mild right hydroureteronephrosis -Trend BMP -FWF with TF -stop D51/2 NS when TF resumed -Strict I & Os -Wallis -Renal ultrasound shows mild right-sided hydronephrosis with parenchymal thin ce and trace perinephric fluid. Endo: h/o DM -Avoid hypoglycemia -SSI -Accucheck q 6hrs -Lantus -titrate as needed Heme: Anemia, Leukocytosis, h/o Microcytic anemia -Trend CBC -Transfuse for hbg <7 -s/p 2 unit PRBCs -SCDs to BLE while in bed -Lovenox subq ID: Gram positive cocci in tracheal aspirate -02/25 tracheal aspirate with few gram-positive cocci -s/p Levaquin (03/18-) -Trend WBC and fever curve -Repeat blood cultures and sputum culture NGTD -Trend WBC and fever curve The high probability of a clinically significant, sudden or life threatening deterioration of the [pulm/cv] system(s) required my full and direct attention, intervention and personal management. The aggregate critical care time was [60] minutes. This time is in addition to time spent performing reported procedures but includes the following: [x] Data Review and interpretation [x] Patient assessment and monitoring of vital signs [x] Documentation [x] Medication orders and management Disposition Plan: IMCU Total Time Spent with Patient (Minutes): 60 History Interval history: Required bipap this AM. Patient very anxious. Hospitalist Physical - Physical exam Narrative exam: General appearance: Present: no acute distress, obese - EENT Eyes: Present: PERRL, EOM intact ENT: hearing intact, clear oral mucosa, dentition normal - Neck Neck: Present: normal ROM - Respiratory Respiratory effort: normal Respiratory: bilateral: diminished - Cardiovascular Rhythm: regular Heart Sounds: Present: S1 & S2. Absent: systolic murmur, diastolic murmur - Extremities Extremities: no ischemia, pulses intact, pulses symmetrical, normal temperature, normal color Peripheral Pulses: within normal limits - Abdominal General gastrointestinal: soft, non-tender, non-distended, normal bowel sounds - Integumentary Integumentary: Present: warm, dry - Psychiatric Psychiatric: cooperative, agitated - Neurologic Neurologic: CNII-XII intact, no focal deficits, moves all extremities - Constitutional Vitals: Temp Pulse Resp BP Pulse Ox 99.5 F 110 H 19 115/85 100 04/04/21 07:52 04/04/21 06:31 04/04/21 06:31 04/04/21 06:31 04/04/21 06:31 General appearance: Present: no acute distress, obese HEART Score - HEART Score Troponin: Troponin T < 0.010 ng/mL (0.00-0.029) 03/29/21 09:24 Results - Labs CBC & Chem 7: 04/04/21 04:21 04/04/21 04:21 Labs: Laboratory Last Values WBC 14.4 K/mm3 (4.5-11.0) H 04/04/21 04:21 RBC 4.13 M/mm3 (3.65-5.03) 04/04/21 04:21 Hgb 9.9 gm/dl (10.1-14.3) L 04/04/21 04:21 Hct 33.2 % (30.3-42.9) 04/04/21 04:21 MCV 80 fl (79-97) 04/04/21 04:21 MCH 24 pg (28-32) L 04/04/21 04:21 MCHC 30 % (30-34) 04/04/21 04:21 RDW 23.0 % (13.2-15.2) H 04/04/21 04:21 Plt Count 572 K/mm3 (140-440) H 04/04/21 04:21 [place] % (Auto) Furnace Puncher 03/24/21 08:03 Add Manual Diff Complete 03/26/21 05:35 Total Counted 100 03/26/21 05:35 Seg Neuts % (Manual) 72.0 % (40.0-70.0) H 03/26/21 05:35 Band Neutrophils % 5.0 % 03/26/21 05:35 Lymphocytes % (Manual) 6.0 % (13.4-35.0) L 03/26/21 05:35 Reactive Lymphs % (Man) 5.0 % 03/19/21 04:59 Monocytes % (Manual) 8.0 % (0.0-7.3) H 03/26/21 05:35 Metamyelocytes % 3.0 % 03/26/21 05:35 Myelocytes % 5.0 % 03/26/21 05:35 Promyelocytes % 1.0 % 03/26/21 05:35 Nucleated RBC % Not Reportable 03/26/21 05:35 Seg Neutrophils # Man 14.4 K/mm3 (1.8-7.7) H 03/26/21 05:35 Band Neutrophils # 1.0 K/mm3 03/26/21 05:35 Lymphocytes # (Manual) 1.2 K/mm3 (1.2-5.4) 03/26/21 05:35 Abs React Lymphs (Man) 0.0 K/mm3 03/26/21 05:35 Monocytes # (Manual) 1.6 K/mm3 (0.0-0.8) H 03/26/21 05:35 Eosinophils # (Manual) 0.0 K/mm3 (0.0-0.4) 03/26/21 05:35 Basophils # (Manual) 0.0 K/mm3 (0.0-0.1) 03/26/21 05:35 Metamyelocytes # 0.6 K/mm3 03/26/21 05:35 Myelocytes # 1.0 K/mm3 03/26/21 05:35 Promyelocytes # 0.2 K/mm3 03/26/21 05:35 Blast Cells # 0.0 K/mm3 03/26/21 05:35 WBC Morphology Not Reportable 03/26/21 05:35 Hypersegmented Neuts Not Reportable 03/26/21 05:35 Hyposegmented Neuts Not Reportable 03/26/21 05:35 Hypogranular Neuts Not Reportable 03/26/21 05:35 Smudge Cells Not Reportable 03/26/21 05:35 Toxic Granulation Not Reportable 03/26/21 05:35 Toxic Vacuolation Not Reportable 03/26/21 05:35 Dohle Bodies Not Reportable 03/26/21 05:35 Pelger-Huet Anomaly Not Reportable 03/26/21 05:35 Florentino Rods Not Reportable 03/26/21 05:35 Platelet Estimate Consistent w auto 03/26/21 05:35 Clumped Platelets Not Reportable 03/26/21 05:35 Plt Clumps, EDTA Not Reportable 03/26/21 05:35 Large Platelets 1+ 03/26/21 05:35 Giant Platelets Not Reportable 03/26/21 05:35 Platelet Satelliting Not Reportable 03/26/21 05:35 Plt Morphology Comment Not Reportable 03/26/21 05:35 RBC Morphology Not Reportable 03/26/21 05:35 Dimorphic RBCs Not Reportable 03/26/21 05:35 Polychromasia 1+ 03/26/21 05:35 Hypochromasia 2+ 03/26/21 05:35 Poikilocytosis 1+ 03/26/21 05:35 Anisocytosis 2+ 03/26/21 05:35 Microcytosis Not Reportable 03/26/21 05:35 Macrocytosis Not Reportable 03/26/21 05:35 Spherocytes Not Reportable 03/26/21 05:35 Pappenheimer Bodies Not Reportable 03/26/21 05:35 Sickle Cells Not Reportable 03/26/21 05:35 Target Cells 1+ 03/26/21 05:35 Tear Drop Cells 1+ 03/26/21 05:35 Ovalocytes Not Reportable 03/26/21 05:35 Stomatocytes 1+ 03/26/21 05:35 Helmet Cells Not Reportable 03/26/21 05:35 [place] Bodies Not Reportable 03/26/21 05:35 [place] Rings Not Reportable 03/26/21 05:35 [place] Cells Not Reportable 03/26/21 05:35 Bite Cells Not Reportable 03/26/21 05:35 Crenated Cell Not Reportable 03/26/21 05:35 Elliptocytes Not Reportable 03/26/21 05:35 Acanthocytes (Spur) Not Reportable 03/26/21 05:35 Rouleaux Not Reportable 03/26/21 05:35 Hemoglobin C Crystals Not Reportable 03/26/21 05:35 Schistocytes 1+ 03/26/21 05:35 Malaria parasites Not Reportable 03/26/21 05:35 Maykel Bodies Not Reportable 03/26/21 05:35 Hem Pathologist Commnt No 03/26/21 05:35 PT 12.6 Sec. (12.2-14.9) 03/17/21 17:37 INR 0.85 (0.87-1.13) L 03/17/21 17:37 APTT 23.3 Sec. (24.2-36.6) L 03/17/21 17:37 D-Dimer 947.92 ng/mlDDU (0-234) H 03/17/21 17:37 ABG pH 7.477 (7.320-7.450) H 03/24/21 08:57 POC ABG pCO2 56.9 mmHg (32.0-48.0) H 03/24/21 08:57 ABG pCO2 72.7 mm Hg 03/23/21 04:50 POC ABG pO2 100.6 mmHg (83-108) 03/24/21 08:57 ABG pO2 70.7 mm Hg (80.0-90.0) L 03/23/21 04:50 POC ABG HCO3 41.1 03/24/21 08:57 ABG HCO3 41.7 mmol/L (20.0-26.0) H 03/23/21 04:50 ABG O2 Saturation 98.3 (0-100) 03/24/21 08:57 ABG O2 Content 7.8 (0.0-44) 03/23/21 04:50 POC ABG Base Excess 15.8 03/24/21 08:57 ABG Base Excess 15.2 mmol/L (-2.0-3.0) H 03/23/21 04:50 ABG Hemoglobin 8.0 (12.0-17.5) L 03/24/21 08:57 ABG Oxyhemoglobin 96.8 (94-98) 03/24/21 08:57 ABG Carboxyhemoglobin 1.7 % (0.0-5.0) 03/23/21 04:50 ABG Methemoglobin 0.3 (0.0-1.5) 03/24/21 08:57 ABG Sodium 139.1 mmol/L (136.0-145.0) 03/24/21 08:57 ABG Potassium 3.9 mmol/L (3.40-4.50) 03/24/21 08:57 ABG Chloride 93.0 mmol/L (98-107) L 03/24/21 08:57 ABG Glucose 328 mg/dL (65-95) H 03/24/21 08:57 Oxyhemoglobin 96.9 % (95.0-99.0) 03/23/21 04:50 Carboxyhemoglobin 1.2 (0.5-1.5) 03/24/21 08:57 FiO2 40 % 03/23/21 04:50 FiO2 % 40 03/24/21 08:57 Sodium 146 mmol/L (137-145) H 04/04/21 04:21 Potassium 4.1 mmol/L (3.6-5.0) 04/04/21 04:21 Chloride 96.8 mmol/L (98-107) L 04/04/21 04:21 Carbon Dioxide 35 mmol/L (22-30) H 04/04/21 04:21 Anion Gap 18 mmol/L 04/04/21 04:21 BUN 9 mg/dL (7-17) 04/04/21 04:21 Creatinine 0.4 mg/dL (0.6-1.2) L 04/04/21 04:21 Estimated GFR > 60 ml/min 04/04/21 04:21 BUN/Creatinine Ratio 23 % 04/04/21 04:21 Glucose 111 mg/dL (65-100) H 04/04/21 04:21 POC Glucose 116 mg/dL (70-105) H 04/04/21 07:34 Lactic Acid 4.00 mmol/L (0.7-2.0) H* 03/17/21 23:36 Calcium 9.5 mg/dL (8.4-10.2) 04/04/21 04:21 Phosphorus 4.50 mg/dL (2.5-4.5) 03/31/21 04:41 Magnesium 2.20 mg/dL (1.7-2.3) 03/31/21 04:41 Total Bilirubin 0.30 mg/dL (0.1-1.2) 03/26/21 05:35 Direct Bilirubin < 0.2 mg/dL (0-0.2) 03/19/21 12:00 Indirect Bilirubin 0.1 mg/dL 03/19/21 12:00 AST 35 units/L (5-40) 03/26/21 05:35 ALT 169 units/L (7-56) H 03/26/21 05:35 Alkaline Phosphatase 138 units/L (35-129) H 03/26/21 05:35 Ammonia 26.0 umol/L (25-60) 03/19/21 12:00 Total Creatine Kinase 123 units/L (30-135) 03/29/21 09:24 CK-MB (CK-2) 1.5 ng/mL (0.0-4.0) 03/29/21 09:24 CK-MB (CK-2) Rel Index 1.2 (0-4) 03/29/21 09:24 Troponin T < 0.010 ng/mL (0.00-0.029) 03/29/21 09:24 NT-Pro-B Natriuret Pep 576.0 pg/mL (0-900) 03/17/21 17:36 Total Protein 5.5 g/dL (6.3-8.2) L 03/26/21 05:35 Albumin 3.2 g/dL (3.9-5) L 03/26/21 05:35 Albumin/Globulin Ratio 1.4 % 03/26/21 05:35 Triglycerides 189 mg/dL (2-149) H 03/22/21 04:39 Cholesterol 191 mg/dL (50-199) 03/17/21 17:36 LDL Cholesterol Direct 80 mg/dL (50-130) 03/17/21 17:36 HDL Cholesterol 73 mg/dL (40-59) H 03/17/21 17:36 Cholesterol/HDL Ratio 2.61 % 03/17/21 17:36 Amylase 78 units/L (27-131) 03/19/21 Unknown Lipase 12 units/L (13-60) L 03/19/21 Unknown TSH 3.510 mlU/mL (0.270-4.200) 03/17/21 22:57 Arterial Blood Glucose 328 mg/dL (65-95) H 03/24/21 08:57 Arterial Blood Ionized Calcium 4.5 mg/dL (4.6-5.3) L 03/24/21 08:57 Urine Color [place] (Yellow) 03/17/21 19:42 Urine Turbidity Slightly-cloudy (Clear) 03/17/21 19:42 Urine pH 7.0 (5.0-7.0) 03/17/21 19:42 Ur Specific [place] 1.015 (1.003-1.030) 03/17/21 19:42 Urine Protein 100 mg/dl mg/dL (Negative) 03/17/21 19:42 Urine Glucose (UA) Neg mg/dL (Negative) 03/17/21 19:42 Urine Ketones 20 mg/dL (Negative) 03/17/21 19:42 Urine Blood Sm (Negative) 03/17/21 19:42 Urine Nitrite Neg (Negative) 03/17/21 19:42 Urine Bilirubin Neg (Negative) 03/17/21 19:42 Urine Urobilinogen 2.0 mg/dL (<2.0) 03/17/21 19:42 Ur Leukocyte Esterase Neg (Negative) 03/17/21 19:42 Urine WBC (Auto) 4.0 /HPF (0.0-6.0) 03/17/21 19:42 Urine RBC (Auto) 6.0 /HPF (0.0-6.0) 03/17/21 19:42 U Epithel Cells (Auto) 5.0 /HPF (0-13.0) 03/17/21 19:42 Urine Bacteria (Auto) 1+ /HPF (Negative) 03/17/21 19:42 Urine Mucus 1+ /HPF 03/17/21 19:42 Urine Yeast (Budding) Few /HPF 03/17/21 19:42 Acetaminophen 5.0 ug/mL (10.0-30.0) L 03/18/21 23:07 Coronavirus (PCR) Negative (Negative) 03/19/21 Unknown Blood Type A POSITIVE 03/29/21 09:24 Antibody Screen Negative 03/29/21 09:24 Crossmatch See Detail 03/29/21 09:24 Wallis/IV: Voiding Method External Female Catheter Active Medications - Current Medications Current Medications: Generic Name Dose Route Start Last Admin Trade Name Freq PRN Reason Stop Dose Admin Acetaminophen 650 mg 03/18/21 00:05 04/04/21 06:20 Acetaminophen 325 Mg Tab PO 650 mg Q6H PRN Administration Pain MILD(1-3)/Fever >100.5/TOVAR Albuterol 2.5 mg 03/22/21 08:00 04/03/21 15:40 Albuterol 2.5 Mg/3 Ml Nebu IH 2.5 mg Q6H PRN Administration Wheezing Alprazolam 1 mg 03/26/21 10:53 04/03/21 09:58 Alprazolam 1 Mg Tab PO 1 mg Q8H PRN Administration AGITATION Arformoterol Tartrate 15 mcg 03/24/21 11:00 04/03/21 19:48 Arformoterol 15 Mcg/2 Ml Nebu IH 15 mcg Q12HRT BUTCH Administration Atorvastatin Calcium 10 mg 03/19/21 22:00 04/03/21 22:00 Atorvastatin 10 Mg Tab PO 10 mg QHS BUTCH Administration Budesonide 0.5 mg 03/24/21 11:00 04/03/21 19:48 Budesonide 0.5 Mg/2 Ml Nebu IH 0.5 mg Q12HRT BUTCH Administration Buspirone HCl 10 mg 04/03/21 22:00 04/03/21 22:00 Buspirone 10 Mg Tab PO 10 mg BID BUTCH Administration Clonazepam 0.5 mg 04/03/21 15:00 04/03/21 22:00 Clonazepam 0.5 Mg Tab PO 0.5 mg BID BUTCH Administration Dextrose 0 ml 03/17/21 23:58 03/31/21 05:16 Dextrose 50% In Water (25gm) 50 Ml Syringe IV 10 ml Q30MIN PRN Administration Hypoglycemia Protocol Docusate Sodium 100 mg 03/23/21 10:00 04/03/21 21:55 Docusate Sodium 100 Mg/10 Ml Oral Liqd PO Not Given BID BUTCH Famotidine 20 mg 03/20/21 22:00 04/03/21 21:54 Famotidine 20 Mg Tab FEEDTUBE 20 mg BID BUTCH Administration Fentanyl 50 mcg 03/26/21 10:08 04/02/21 02:03 Fentanyl 100 Mcg/2 Ml Inj IV 50 mcg Q2H PRN Administration Pain, Moderate (4-6) Haloperidol Lactate 5 mg 03/30/21 09:52 04/01/21 08:33 Haloperidol Lactate 5 Mg/1 Ml Inj IV 5 mg Q6H PRN Administration Agitation Heparin Sodium (Porcine) 5,000 unit 03/18/21 06:00 04/04/21 06:20 Heparin 5,000 Unit/1 Ml Vial SUB-Q 5,000 unit Q8HR BUTCH Administration Hydralazine HCl 5 mg 03/29/21 10:56 Hydralazine 20 Mg/1 Ml Inj IV Q4HR PRN SBP >160 Hydrophilic Ointment 1 applic 03/17/21 17:35 Lip Therapy Vaseline TP Q2HR PRN Dry Lips Dexmedetomidine HCl 400 mcg/ 104 mls @ 4.306 mls/hr 03/21/21 13:00 04/03/21 12:23 Sodium Chloride IV 0.6 mcg/kg/hr TITRATE BUTCH 12.917 mls/hr Administration Protocol 0.2 MCG/KG/HR Insulin Human Lispro 0 unit 03/19/21 12:00 04/04/21 06:17 Insulin Lispro 100 Unit/Ml SUB-Q Not Given Q6HR [facility] Protocol Lorazepam 0.5 mg 03/30/21 09:53 04/01/21 16:04 Lorazepam 2 Mg/Ml Vial IV 0.5 mg Q4H PRN Administration Anxiety Magnesium Hydroxide 30 ml 03/18/21 00:05 03/24/21 09:36 Magnesium Hydroxide (Mom) Oral Liqd Udc PO 30 ml Q4H PRN Administration Constipation Metoprolol Tartrate 25 mg 03/20/21 22:00 04/03/21 21:54 Metoprolol Tartrate 25 Mg Tab PO 25 mg BID [facility] Administration Morphine Sulfate 2 mg 03/18/21 00:05 04/04/21 03:27 Morphine 2 Mg/1 Ml Inj IV 2 mg Q4H PRN Administration Pain, Moderate (4-6) Morphine Sulfate 4 mg 03/18/21 00:05 04/03/21 17:21 Morphine 4 Mg/1 Ml Inj IV 4 mg Q4H PRN Administration Pain , Severe (7-10) Multi-Ingred Cream/Lotion/Oil/Oint 1 applic 03/17/21 17:35 Mineral Oil/Petrolatum, White Ophth Oint 3.5 Gm OU Q4HR PRN Dry Eye(s) Prednisone 15 mg 04/03/21 10:00 04/03/21 09:57 Prednisone 5 Mg Tab PO 15 mg QDAY BUTCH Administration Senna/Docusate Sodium 1 tab 03/17/21 22:00 04/03/21 22:00 Sennosides/Docusate Sodium 8.6/50 Mg Tab FEEDTUBE Not Given BID BUTCH Simple Syrup 15 ml 03/19/21 18:16 Simple Syrup 15 Ml FEEDTUBE PRN PRN Hypoglycemia Simple Syrup 30 ml 03/19/21 18:16 Simple Syrup 15 Ml FEEDTUBE PRN PRN Hypoglycemia Sodium Chloride 10 ml 03/18/21 10:00 04/04/21 01:20 Sodium Chloride 0.9% 10 Ml Flush Syringe IV 10 ml BID BUTCH Administration Sodium Chloride 10 ml 03/17/21 23:58 03/22/21 23:20 Sodium Chloride 0.9% 10 Ml Flush Syringe IV 10 ml PRN PRN Administration LINE FLUSH Nutrition/Malnutrition Assess - Dietary Evaluation Nutrition/Malnutrition Findings: Nutrition Notes Start: 03/18/21 09:46 Freq: Status: Active Protocol: Document 04/03/21 10:01 PAM (Rec: 04/03/21 10:45 PAM [id number]) Nutrition Notes Current Diet Cyclic 12 hr TF-Vital AF 1.2 Brenden @ 88 ml/hr (since D 04/03) . Labs/Tests 04/02: CO2 33, Crea 0.4, Glu 70, POC Glu 118. Pertinent Medications 04/03: Nutritionally unremarkable. Height 5 ft 6 in Weight 82.8 kg [place] Body Weight (kg) 59.09 BMI 29.5 Weight change and time frame No body weight change reported . Weight Status Overweight Subjective/Other Information RD consult for routine F/U on TF continuation. RN called to request adjust TF to 12 hours Cyclic rate. Percent of energy/protein needs met: Prescribed Vital AF 1.2 Brenden @ 88 ml/hr provides for energy/ protein needs (1,260 Kcal/79 g ) during LOS. #1 Nutrition Diagnosis Inadequate oral intake Comments: RN requested adjust TF to 12 hrs cyclic rate. Diagnosis Progress(for reassessment Improved documentation) Is patient on ventilator? No Is Patient Ambulatory and/or Out of Bed No [facility] [phone] Calculation Used for Recommendations Zach Koehler Additional Notes Pro needs 1.2-2g/k-166g/ day Fluid needs 1ml/kcal Nutrition Intervention Nutrition Support: Vital AF 1.2 Brenden @ 88 ml/hr. Flush: 140 ml water Q 4 hr. Kcal 1,260 Protein (gm) 79 Carbohydrates (gm) 116 Fat (gm) 57 Fluid (mL) 852 Fiber (gm) 5 % RDI: 75% Kcal; 80% AA. Goal #1 Provide at least 75% of energy /protein needs through Enteral Feeding during LOS. Follow-Up By: 04/05/21 Additional Comments TF re-start, TF formula change /tolerance, resp status, BG labs
[2021-04-04] MEDS: METOPROLOL TARTRATE 25 MG TAB PO SCH ×2 (09:22→21:52)
[2021-04-04] MEDS: DOCUSATE SODIUM 100 MG/10 ML ORAL LIQD PO SCH ×2 (09:22→21:53)
[2021-04-04] MEDS: clonazePAM 0.5 MG TAB PO SCH ×2 (09:22→21:52)
[2021-04-04] MEDS: predniSONE 5 MG TAB PO SCH (09:22)
[2021-04-04] MEDS: SENNOSIDES/DOCUSATE SODIUM 8.6/50 MG TAB FEEDTUBE SCH ×2 (09:22→21:54)
[2021-04-04] MEDS: FAMOTIDINE 20 MG TAB FEEDTUBE SCH ×2 (09:27→21:53)
[2021-04-04] MEDS: busPIRone 10 MG TAB PO SCH ×3 (13:52→21:52)
--- NOTE | 2021-04-04 14:10 | Progress Note ---
Subjective - Reason for Consult Consult date: 04/04/21 Reason for consult: anxiety - Chief Complaint Chief complaint: The patient was seen today. The interview was conducted via writing on paper. The patient reports that she is feeling better. She continues to endorse anxiety which she rates as a 4 out 10 on a scale of 1 through 10, and 10 being the highest. She reports that she sees her PCP who prescribes her psychotropic medications. The patient denies being depressed and denies any current suicidal ideation and denies hallucinations. PAST PSYCHIATRIC HISTORY: Diagnoses: Anxiety Suicide attempts or Self-harm behavior: Denies Prior psychiatric hospitalizations: Denies Substance Abuse history: Denies Previous psychiatric medications tried:Klonopin, Buspar, Cymbalta Outpatient treatment:unknown PAST MEDICAL HISTORY: Family Psychiatric History: None reported or documented SOCIAL HISTORY Marital Status: Living Arrangements: Lives with Employment Status:Retired/disability Access to guns/weapons:Denies Education: Some college History of Abuse:Denies Legal History:Unknown REVIEW OF SYSTEMS Constitutional: Negative for weight loss ENT: Negative for stridor Respiratory: Negative for cough or hemoptysis All other systems reviewed and are negative MENTAL STATUS EXAMINATION General Appearance and Behavior: Age appropriate, good hygiene, wearing appropriate clothes, cooperative polite with questioning. Cooperation: cooperative Psychomotor Behavior: Normal Mood:"ok" Affect and affective range:congruent Thought Process:Goal directed Thought Content:Reality oriented Speech:Normal Intellectual Functioning: Average Suicidal Ideation:Denies Homicidal Ideation: Denies Hallucination: Denies Impulse Control:Normal Insight and Judgment:limited insight and good judgment Memory: Intact Attention:Good Orientation: Alert and oriented Diagnoses: Unspecified anxiety disorder (1) Treatment Plan: Continue Klonopin 0.5 mg po BID Patient should be compliant with medications and not to use drugs and not to drink alcohol. PSYCHOTHERAPY: Supportive psychotherapy provided MEDICAL: Per primary team DELIRIUM PRECAUTIONS: Please re-orient patient frequently, keep lights on during the day, and minimize benzodiazepines and opiates as these medications could worsen patient's confusion. 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 [employer] will provide patient with psychiatric out-patient resources FOLLOW-UP: Will sign off. Thank you for the consult. Please contact with any questions and/or concerns. Mental Status Exam - Vital signs Last Vital Signs Temp 99.7 F H 04/04/21 12:08 Pulse 96 H 04/04/21 12:01 Resp 19 04/04/21 12:01 BP 142/77 04/04/21 12:01 Pulse Ox 97 04/04/21 12:01
--- NOTE | 2021-04-04 14:48 | Progress Note ---
Assessment and Plan 60 y/o female with acute on chronic respiratory failure, SVT and HTN likely all related to anxiety and stress 04/04/21: Saw first hand what patient is likely doing at home. Severe panic attacks. For record, anil is what I started her on as an outpatient and she did not tolerate it. I had her on 1 BID and per the patient and she was completely out of it. Need to find the right combo that allows her to be calm and awake and functional. Will drop steroids down tomorrow to 10 daily and monitor for signs of AI. Hold on GI consult for now for peg, spoke with over the phone to update him. Very very guarded to poor prognosis. 04/03/21: Oxygen requirement is acceptable for hospice. Awaiting Lise recs for anxiety control. Ok with increasing Buspar. Hopeful home with hospice as early as today but more reasonable would be tomorrow or . 04/02/21: Patient has verbally expressed that she wants to go home and she wants to go home with home hospice. Patient is already on [facility] palliative service and can transition to hospice. Awaiting to see how much oxygen we are able to provide for patient. She should be able to be weaned to nasal cannula but await to hear back from [facility]. Per [facility] can do 50 liters and 50%. Patient currently on 40 and 50 with sat of 100. Await psych recommendations. 03/30/21: Currently still on bipap. No HFNC units available in the house. Transfused blood on yesterday. But no CBC checked today. Patient states that she is tired and has expressed this to several of the staff. She is currently on [facility] but my plan is to discuss hospice with her and her . Dropping steroids down starting tomorrow. Continue to wean Oxygen as tolerated. If possible keep in either ICU or step down over the weekend. 03/29/21: Currently on bipap. Good volumes and good sats. Still with some mild distress but stable. Will continue bipap therapy for now. Tomorrow will need to place psych consult if able to stay of the vent and weaned from continuous bipap to help us address anxiety and depression. IMS will likely want to transfuse PRBC's. Would give slowly if done. Discussed with SALES SPECIALIST and Bedside nurse, will restart precedex at low dose to help with anxiety. Will alert . 03/28/21: Continue PSV but she isnt ready for extubation today. Not able to tolerates PSV on yesterday so today is first real test. Dropped steroids to daily starting today. UOP is stable, but she is grossly positive. If oxygen requirement increases, check CXR and may need to consider lasix. Continue PSV for as long as possible today but definitely rest overnight. Guarded prognosis. May eventually need trach. 03/27/21: Monitor renal function and urine output closely. Not sure why K continues to be elevated despite daily correction therapy. Attempt PSV off fent but can continue precedex. Will see how patient looks tomorrow but still may not be a candidate for extubation. Drop steroids to daily starting tomorrow. 03/26/21: Continue daily PSV trials. Agree with my partner as I would like another trial of routine extubation before committing to trach. Discussed with family and patient at bedside this am. Continue solumedrol 40q12. IMS restarted buspar. WIll have psych see and evaluate to help with anxiety and depression once extubated. Guarded prognosis. 03/22/21: Please see event note for details. Planned to extubate today and wean steroids. 03/21/21: Echo given continued tachycardia despite adequate oxygenation. Can drop steroids to 40q8. 03/19/21: Continue sedation. Wean FiO2 for sats >88%. consider weaning steroid tomorrow. Follow up RUQ and trend LFT's 1. Wean Versed and place on Diprovan drip 2. Will give Fent 100 IV x1 now and order drip if needed for pain 3. Spoke with over the phone to get more history. Sounds like a panic attack not aborted by xanax therapy. Did check Tylenol level as patient has been in pain from fall 4. Elevated LFT's former drinker but confirms she has not been drinking. Ordered RUQ ultrasound and need to repeat LFT's tomorrow 5. Reviewed cards note, and they do not want to treat tachycardia or elevated bp, likely needs more sedation Guarded prognosis CCT 31 minutes. Subjective Date of service: 04/04/21 Principal diagnosis: Atrial fibrillation with RVR, respiratory failure Interval history: Moved to [facility]. Refuses to take off bipap. Despite sats being normal. Begged her not to put back on but got herself worked up to a HR in the 130's. Placed back on bipap. Objective Vital Signs - 12hr 04/04/21 04/04/21 04/04/21 03:03 03:31 04:00 Temperature 98.4 F Pulse Rate 95 H 89 85 Pulse Rate [ 85 From Monitor] Respiratory 16 16 15 Rate Blood Pressure 170/88 137/69 O2 Sat by Pulse 98 98 99 Oximetry 04/04/21 04/04/21 04/04/21 04:31 05:01 05:31 Temperature Pulse Rate 87 90 117 H Pulse Rate [ From Monitor] Respiratory 17 17 18 Rate Blood Pressure 137/69 141/86 141/86 O2 Sat by Pulse 98 99 98 Oximetry 04/04/21 04/04/21 04/04/21 06:01 06:31 07:01 Temperature Pulse Rate 79 110 H 76 Pulse Rate [ From Monitor] Respiratory 15 19 17 Rate Blood Pressure 141/86 115/85 134/77 O2 Sat by Pulse 100 100 100 Oximetry 04/04/21 04/04/21 04/04/21 07:17 07:31 07:52 Temperature 99.5 F Pulse Rate 137 H 95 H Pulse Rate [ From Monitor] Respiratory 20 19 Rate Blood Pressure 134/77 134/77 O2 Sat by Pulse 98 100 Oximetry 04/04/21 04/04/21 04/04/21 08:00 08:01 08:31 Temperature Pulse Rate 80 88 117 H Pulse Rate [ 82 From Monitor] Respiratory 17 17 15 Rate Blood Pressure 138/101 138/101 O2 Sat by Pulse 99 100 99 Oximetry 04/04/21 04/04/21 04/04/21 09:00 09:22 09:31 Temperature Pulse Rate 91 H 98 H 116 H Pulse Rate [ From Monitor] Respiratory 17 18 Rate Blood Pressure 132/74 132/74 132/74 O2 Sat by Pulse 100 100 Oximetry 04/04/21 04/04/21 04/04/21 10:00 10:31 11:00 Temperature Pulse Rate 85 86 96 H Pulse Rate [ From Monitor] Respiratory 16 22 21 Rate Blood Pressure 125/78 125/78 142/77 O2 Sat by Pulse 100 100 100 Oximetry 04/04/21 04/04/21 04/04/21 11:31 12:00 12:01 Temperature Pulse Rate 84 75 96 H Pulse Rate [ 80 From Monitor] Respiratory 15 17 19 Rate Blood Pressure 142/77 148/67 142/77 O2 Sat by Pulse 99 100 97 Oximetry 04/04/21 04/04/21 04/04/21 12:08 12:31 13:01 Temperature 99.7 F H Pulse Rate 103 H 99 H Pulse Rate [ From Monitor] Respiratory 14 11 L Rate Blood Pressure 148/67 134/69 O2 Sat by Pulse 98 99 Oximetry 04/04/21 04/04/21 13:31 14:01 Temperature Pulse Rate 87 115 H Pulse Rate [ From Monitor] Respiratory 16 17 Rate Blood Pressure 134/69 139/50 O2 Sat by Pulse 100 98 Oximetry Constitutional: other (moderate distress) Eyes: non-icteric ENT: oropharynx moist Neck: supple Effort: normal Ascultation: Bilateral: diminished breath sounds Cardiovascular: regular rate and rhythm (no mrg) Gastrointestinal: normoactive bowel sounds, soft, non-tender, non-distended Extremities: no cyanosis, no edema, pink and warm Neurologic: normal mental status, non-focal exam, pupils equal and round Psychiatric: mood appropriate, affect normal CBC and BMP: 04/04/21 04:21 04/04/21 04:21 ABG, PT/INR, D-dimer: ABG ABG pH 7.477 (7.320-7.450) H 03/24/21 08:57 POC ABG pCO2 56.9 mmHg (32.0-48.0) H 03/24/21 08:57 ABG pCO2 72.7 mm Hg 03/23/21 04:50 POC ABG pO2 100.6 mmHg (83-108) 03/24/21 08:57 ABG pO2 70.7 mm Hg (80.0-90.0) L 03/23/21 04:50 POC ABG HCO3 41.1 03/24/21 08:57 ABG O2 Saturation 98.3 (0-100) 03/24/21 08:57 PT/INR, D-dimer PT 12.6 Sec. (12.2-14.9) 03/17/21 17:37 INR 0.85 (0.87-1.13) L 03/17/21 17:37 D-Dimer 947.92 ng/mlDDU (0-234) H 03/17/21 17:37 Abnormal lab findings: Abnormal Labs 03/17/21 03/17/21 03/17/21 17:36 17:36 17:37 WBC 13.8 H RBC 3.48 L Hgb 7.0 L Hct 26.2 L MCV 75 L MCH 20 L MCHC 27 L RDW 25.4 H Plt Count Seg Neuts % (Manual) Lymphocytes % (Manual) Monocytes % (Manual) Nucleated RBC % 7.0 H Seg Neutrophils # Man 8.7 H Lymphocytes # (Manual) Monocytes # (Manual) INR 0.85 L APTT 23.3 L D-Dimer 947.92 H ABG pH POC ABG pCO2 POC ABG pO2 ABG pO2 ABG HCO3 ABG O2 Saturation ABG Base Excess ABG Hemoglobin ABG Oxyhemoglobin ABG Potassium ABG Chloride ABG Glucose Oxyhemoglobin Sodium Potassium Chloride 88.2 L Carbon Dioxide 38 H BUN Creatinine Glucose 129 H POC Glucose Lactic Acid Calcium Phosphorus Magnesium AST 177 H ALT 251 H Alkaline Phosphatase Ammonia Troponin T 0.036 H Total Protein 5.9 L Albumin 3.8 L Triglycerides 173 H HDL Cholesterol 73 H Lipase Arterial Blood Glucose Arterial Blood Ionized Calcium Acetaminophen Crossmatch 03/17/21 03/17/21 03/17/21 18:15 18:40 18:40 WBC RBC Hgb Hct MCV MCH MCHC RDW Plt Count Seg Neuts % (Manual) Lymphocytes % (Manual) Monocytes % (Manual) Nucleated RBC % Seg Neutrophils # Man Lymphocytes # (Manual) Monocytes # (Manual) INR APTT D-Dimer ABG pH POC ABG pCO2 POC ABG pO2 ABG pO2 94.4 H ABG HCO3 44.8 H ABG O2 Saturation ABG Base Excess 16.6 H ABG Hemoglobin ABG Oxyhemoglobin ABG Potassium ABG Chloride ABG Glucose Oxyhemoglobin Sodium Potassium Chloride Carbon Dioxide BUN Creatinine Glucose POC Glucose Lactic Acid 4.00 H* Calcium Phosphorus Magnesium AST ALT Alkaline Phosphatase Ammonia 116.0 H Troponin T Total Protein Albumin Triglycerides HDL Cholesterol Lipase Arterial Blood Glucose Arterial Blood Ionized Calcium Acetaminophen Crossmatch 03/17/21 03/18/21 03/18/21 23:36 00:25 23:07 WBC RBC Hgb Hct MCV MCH MCHC RDW Plt Count Seg Neuts % (Manual) Lymphocytes % (Manual) Monocytes % (Manual) Nucleated RBC % Seg Neutrophils # Man Lymphocytes # (Manual) Monocytes # (Manual) INR APTT D-Dimer ABG pH POC ABG pCO2 POC ABG pO2 ABG pO2 68.1 L ABG HCO3 40.2 H ABG O2 Saturation ABG Base Excess 14.4 H ABG Hemoglobin 6.5 L ABG Oxyhemoglobin ABG Potassium ABG Chloride ABG Glucose Oxyhemoglobin Sodium Potassium Chloride Carbon Dioxide BUN Creatinine Glucose POC Glucose Lactic Acid 4.00 H* Calcium Phosphorus Magnesium AST ALT Alkaline Phosphatase Ammonia Troponin T Total Protein Albumin Triglycerides HDL Cholesterol Lipase Arterial Blood Glucose Arterial Blood Ionized Calcium Acetaminophen 5.0 L Crossmatch 03/19/21 03/19/21 03/19/21 00:50 03:25 04:59 WBC RBC 3.43 L Hgb 7.0 L Hct 25.6 L MCV 75 L MCH 20 L MCHC 27 L RDW 25.6 H Plt Count Seg Neuts % (Manual) 91.0 H Lymphocytes % (Manual) Monocytes % (Manual) 9.0 H Nucleated RBC % 3.0 H Seg Neutrophils # Man 9.0 H Lymphocytes # (Manual) 0.0 L Monocytes # (Manual) INR APTT D-Dimer ABG pH 7.531 H POC ABG pCO2 POC ABG pO2 ABG pO2 49.6 L ABG HCO3 31.4 H ABG O2 Saturation 99.6 H ABG Base Excess 8.1 H ABG Hemoglobin 7.2 L ABG Oxyhemoglobin ABG Potassium ABG Chloride ABG Glucose Oxyhemoglobin Sodium Potassium Chloride Carbon Dioxide BUN Creatinine Glucose POC Glucose 127 H Lactic Acid Calcium Phosphorus Magnesium AST ALT Alkaline Phosphatase Ammonia Troponin T Total Protein Albumin Triglycerides HDL Cholesterol Lipase Arterial Blood Glucose Arterial Blood Ionized Calcium Acetaminophen Crossmatch 03/19/21 03/19/21 03/19/21 04:59 10:37 12:00 WBC RBC Hgb Hct MCV MCH MCHC RDW Plt Count Seg Neuts % (Manual) Lymphocytes % (Manual) Monocytes % (Manual) Nucleated RBC % Seg Neutrophils # Man Lymphocytes # (Manual) Monocytes # (Manual) INR APTT D-Dimer ABG pH 7.494 H POC ABG pCO2 POC ABG pO2 ABG pO2 107.3 H ABG HCO3 31.6 H ABG O2 Saturation ABG Base Excess 7.7 H ABG Hemoglobin 7.1 L ABG Oxyhemoglobin ABG Potassium ABG Chloride ABG Glucose Oxyhemoglobin Sodium Potassium Chloride 89.5 L Carbon Dioxide BUN Creatinine Glucose 121 H POC Glucose Lactic Acid Calcium Phosphorus Magnesium AST 359 H ALT 1434 H Alkaline Phosphatase Ammonia Troponin T Total Protein 5.7 L Albumin 3.5 L Triglycerides HDL Cholesterol Lipase Arterial Blood Glucose Arterial Blood Ionized Calcium Acetaminophen Crossmatch 03/19/21 03/19/21 03/19/21 12:05 17:52 23:23 WBC RBC Hgb Hct MCV MCH MCHC RDW Plt Count Seg Neuts % (Manual) Lymphocytes % (Manual) Monocytes % (Manual) Nucleated RBC % Seg Neutrophils # Man Lymphocytes # (Manual) Monocytes # (Manual) INR APTT D-Dimer ABG pH POC ABG pCO2 POC ABG pO2 ABG pO2 ABG HCO3 ABG O2 Saturation ABG Base Excess ABG Hemoglobin ABG Oxyhemoglobin ABG Potassium ABG Chloride ABG Glucose Oxyhemoglobin Sodium Potassium Chloride Carbon Dioxide BUN Creatinine Glucose POC Glucose 122 H 114 H 187 H Lactic Acid Calcium Phosphorus Magnesium AST ALT Alkaline Phosphatase Ammonia Troponin T Total Protein Albumin Triglycerides HDL Cholesterol Lipase Arterial Blood Glucose Arterial Blood Ionized Calcium Acetaminophen Crossmatch 03/19/21 03/20/21 03/20/21 Unknown 03:50 03:57 WBC RBC Hgb Hct MCV MCH MCHC RDW Plt Count Seg Neuts % (Manual) Lymphocytes % (Manual) Monocytes % (Manual) Nucleated RBC % Seg Neutrophils # Man Lymphocytes # (Manual) Monocytes # (Manual) INR APTT D-Dimer ABG pH 7.477 H POC ABG pCO2 POC ABG pO2 ABG pO2 67.9 L ABG HCO3 33.9 H ABG O2 Saturation ABG Base Excess 9.5 H ABG Hemoglobin 6.7 L ABG Oxyhemoglobin ABG Potassium ABG Chloride ABG Glucose Oxyhemoglobin Sodium Potassium Chloride Carbon Dioxide BUN Creatinine Glucose POC Glucose 247 H Lactic Acid Calcium Phosphorus Magnesium AST ALT Alkaline Phosphatase Ammonia Troponin T Total Protein Albumin Triglycerides HDL Cholesterol Lipase 12 L Arterial Blood Glucose Arterial Blood Ionized Calcium Acetaminophen Crossmatch 03/20/21 03/20/21 03/20/21 04:18 04:18 10:16 WBC RBC 3.48 L Hgb 7.0 L Hct 25.3 L MCV 73 L MCH 20 L MCHC 28 L RDW 25.2 H Plt Count 541 H Seg Neuts % (Manual) Lymphocytes % (Manual) Monocytes % (Manual) Nucleated RBC % Seg Neutrophils # Man Lymphocytes # (Manual) Monocytes # (Manual) INR APTT D-Dimer ABG pH POC ABG pCO2 POC ABG pO2 ABG pO2 63.3 L ABG HCO3 34.0 H ABG O2 Saturation 90.0 L ABG Base Excess 7.9 H ABG Hemoglobin 10.5 L ABG Oxyhemoglobin ABG Potassium ABG Chloride ABG Glucose Oxyhemoglobin 88.1 L Sodium Potassium Chloride 91.6 L Carbon Dioxide BUN 22 H Creatinine Glucose 245 H POC Glucose Lactic Acid Calcium Phosphorus Magnesium AST 148 H ALT 1096 H Alkaline Phosphatase 133 H Ammonia Troponin T Total Protein Albumin 3.5 L Triglycerides HDL Cholesterol Lipase Arterial Blood Glucose Arterial Blood Ionized Calcium Acetaminophen Crossmatch 03/20/21 03/20/21 03/21/21 12:05 17:26 00:18 WBC RBC Hgb Hct MCV MCH MCHC RDW Plt Count Seg Neuts % (Manual) Lymphocytes % (Manual) Monocytes % (Manual) Nucleated RBC % Seg Neutrophils # Man Lymphocytes # (Manual) Monocytes # (Manual) INR APTT D-Dimer ABG pH POC ABG pCO2 POC ABG pO2 ABG pO2 ABG HCO3 ABG O2 Saturation ABG Base Excess ABG Hemoglobin ABG Oxyhemoglobin ABG Potassium ABG Chloride ABG Glucose Oxyhemoglobin Sodium Potassium Chloride Carbon Dioxide BUN Creatinine Glucose POC Glucose 226 H 215 H 323 H Lactic Acid Calcium Phosphorus Magnesium AST ALT Alkaline Phosphatase Ammonia Troponin T Total Protein Albumin Triglycerides HDL Cholesterol Lipase Arterial Blood Glucose Arterial Blood Ionized Calcium Acetaminophen Crossmatch 03/21/21 03/21/21 03/21/21 04:00 05:05 09:28 WBC 12.0 H RBC 3.42 L Hgb 6.8 L Hct 25.3 L MCV 74 L MCH 20 L MCHC 27 L RDW 25.1 H Plt Count 650 H Seg Neuts % (Manual) Lymphocytes % (Manual) Monocytes % (Manual) Nucleated RBC % Seg Neutrophils # Man Lymphocytes # (Manual) Monocytes # (Manual) INR APTT D-Dimer ABG pH 7.348 L POC ABG pCO2 POC ABG pO2 ABG pO2 56.3 L ABG HCO3 36.9 H ABG O2 Saturation 83.4 L ABG Base Excess 10.0 H ABG Hemoglobin 7.0 L ABG Oxyhemoglobin ABG Potassium ABG Chloride ABG Glucose Oxyhemoglobin 81.7 L Sodium Potassium Chloride Carbon Dioxide BUN Creatinine Glucose POC Glucose 311 H Lactic Acid Calcium Phosphorus Magnesium AST ALT Alkaline Phosphatase Ammonia Troponin T Total Protein Albumin Triglycerides HDL Cholesterol Lipase Arterial Blood Glucose Arterial Blood Ionized Calcium Acetaminophen Crossmatch 03/21/21 03/21/21 03/21/21 09:28 12:31 14:08 WBC RBC Hgb Hct MCV MCH MCHC RDW Plt Count Seg Neuts % (Manual) Lymphocytes % (Manual) Monocytes % (Manual) Nucleated RBC % Seg Neutrophils # Man Lymphocytes # (Manual) Monocytes # (Manual) INR APTT D-Dimer ABG pH POC ABG pCO2 POC ABG pO2 ABG pO2 ABG HCO3 ABG O2 Saturation ABG Base Excess ABG Hemoglobin ABG Oxyhemoglobin ABG Potassium ABG Chloride ABG Glucose Oxyhemoglobin Sodium Potassium 5.1 H D Chloride 94.4 L Carbon Dioxide 33 H BUN 32 H Creatinine Glucose 319 H POC Glucose 295 H Lactic Acid Calcium Phosphorus Magnesium 2.40 H AST ALT 697 H Alkaline Phosphatase 134 H Ammonia Troponin T Total Protein 5.8 L Albumin 3.4 L Triglycerides HDL Cholesterol Lipase Arterial Blood Glucose Arterial Blood Ionized Calcium Acetaminophen Crossmatch See Detail 03/22/21 03/22/21 03/22/21 00:14 04:30 04:39 WBC RBC Hgb Hct MCV MCH MCHC RDW Plt Count Seg Neuts % (Manual) Lymphocytes % (Manual) Monocytes % (Manual) Nucleated RBC % Seg Neutrophils # Man Lymphocytes # (Manual) Monocytes # (Manual) INR APTT D-Dimer ABG pH 7.310 L POC ABG pCO2 POC ABG pO2 ABG pO2 65.4 L ABG HCO3 38.3 H ABG O2 Saturation 90.8 L ABG Base Excess 10.9 H ABG Hemoglobin 6.4 L ABG Oxyhemoglobin ABG Potassium ABG Chloride ABG Glucose Oxyhemoglobin 88.7 L Sodium Potassium Chloride Carbon Dioxide BUN Creatinine Glucose POC Glucose 326 H Lactic Acid Calcium Phosphorus Magnesium AST ALT Alkaline Phosphatase Ammonia Troponin T Total Protein Albumin Triglycerides 189 H HDL Cholesterol Lipase Arterial Blood Glucose Arterial Blood Ionized Calcium Acetaminophen Crossmatch 03/22/21 03/22/21 03/22/21 04:39 04:39 09:45 WBC 12.8 H RBC 3.34 L Hgb 6.6 L Hct 24.5 L MCV 73 L MCH 20 L MCHC 27 L RDW 25.5 H Plt Count 644 H Seg Neuts % (Manual) Lymphocytes % (Manual) Monocytes % (Manual) Nucleated RBC % Seg Neutrophils # Man Lymphocytes # (Manual) Monocytes # (Manual) INR APTT D-Dimer ABG pH POC ABG pCO2 65.7 H POC ABG pO2 59.7 L ABG pO2 ABG HCO3 ABG O2 Saturation ABG Base Excess ABG Hemoglobin 8.0 L ABG Oxyhemoglobin 86.3 L ABG Potassium 4.7 H ABG Chloride 94.0 L ABG Glucose 208 H Oxyhemoglobin Sodium Potassium 5.3 H Chloride 94.6 L Carbon Dioxide 34 H BUN 33 H Creatinine Glucose 291 H POC Glucose Lactic Acid Calcium Phosphorus Magnesium AST ALT Alkaline Phosphatase Ammonia Troponin T Total Protein Albumin Triglycerides HDL Cholesterol Lipase Arterial Blood Glucose 208 H Arterial Blood Ionized Calcium Acetaminophen Crossmatch 03/22/21 03/22/21 03/23/21 21:33 23:58 04:42 WBC 14.3 H RBC 3.63 L Hgb 7.6 L Hct 27.0 L MCV 74 L MCH 21 L MCHC 28 L RDW 23.1 H Plt Count 567 H Seg Neuts % (Manual) Lymphocytes % (Manual) Monocytes % (Manual) Nucleated RBC % Seg Neutrophils # Man Lymphocytes # (Manual) Monocytes # (Manual) INR APTT D-Dimer ABG pH POC ABG pCO2 POC ABG pO2 ABG pO2 ABG HCO3 ABG O2 Saturation ABG Base Excess ABG Hemoglobin ABG Oxyhemoglobin ABG Potassium ABG Chloride ABG Glucose Oxyhemoglobin Sodium Potassium Chloride Carbon Dioxide BUN Creatinine Glucose POC Glucose 170 H 156 H Lactic Acid Calcium Phosphorus Magnesium AST ALT Alkaline Phosphatase Ammonia Troponin T Total Protein Albumin Triglycerides HDL Cholesterol Lipase Arterial Blood Glucose Arterial Blood Ionized Calcium Acetaminophen Crossmatch 03/23/21 03/23/21 03/23/21 04:42 04:50 22:25 WBC RBC Hgb Hct MCV MCH MCHC RDW Plt Count Seg Neuts % (Manual) Lymphocytes % (Manual) Monocytes % (Manual) Nucleated RBC % Seg Neutrophils # Man Lymphocytes # (Manual) Monocytes # (Manual) INR APTT D-Dimer ABG pH POC ABG pCO2 POC ABG pO2 ABG pO2 70.7 L ABG HCO3 41.7 H ABG O2 Saturation ABG Base Excess 15.2 H ABG Hemoglobin 5.6 L ABG Oxyhemoglobin ABG Potassium ABG Chloride ABG Glucose Oxyhemoglobin Sodium Potassium Chloride 94.6 L Carbon Dioxide 37 H BUN 27 H Creatinine Glucose 311 H POC Glucose 295 H Lactic Acid Calcium Phosphorus Magnesium AST ALT Alkaline Phosphatase Ammonia Troponin T Total Protein Albumin Triglycerides HDL Cholesterol Lipase Arterial Blood Glucose Arterial Blood Ionized Calcium Acetaminophen Crossmatch 03/23/21 03/24/21 03/24/21 23:13 05:13 07:59 WBC RBC Hgb Hct MCV MCH MCHC RDW Plt Count Seg Neuts % (Manual) Lymphocytes % (Manual) Monocytes % (Manual) Nucleated RBC % Seg Neutrophils # Man Lymphocytes # (Manual) Monocytes # (Manual) INR APTT D-Dimer ABG pH POC ABG pCO2 POC ABG pO2 ABG pO2 ABG HCO3 ABG O2 Saturation ABG Base Excess ABG Hemoglobin ABG Oxyhemoglobin ABG Potassium ABG Chloride ABG Glucose Oxyhemoglobin Sodium Potassium Chloride Carbon Dioxide BUN Creatinine Glucose POC Glucose 336 H 303 H 333 H Lactic Acid Calcium Phosphorus Magnesium AST ALT Alkaline Phosphatase Ammonia Troponin T Total Protein Albumin Triglycerides HDL Cholesterol Lipase Arterial Blood Glucose Arterial Blood Ionized Calcium Acetaminophen Crossmatch 03/24/21 03/24/21 03/24/21 08:03 08:03 08:57 WBC 12.7 H RBC 3.48 L Hgb 7.3 L Hct 26.3 L MCV 76 L MCH 21 L MCHC 28 L RDW 24.1 H Plt Count 499 H Seg Neuts % (Manual) Lymphocytes % (Manual) 1.0 L Monocytes % (Manual) 16.0 H Nucleated RBC % 11.0 H Seg Neutrophils # Man 8.1 H Lymphocytes # (Manual) 0.1 L Monocytes # (Manual) 2.1 H INR APTT D-Dimer ABG pH 7.477 H POC ABG pCO2 56.9 H POC ABG pO2 ABG pO2 ABG HCO3 ABG O2 Saturation ABG Base Excess ABG Hemoglobin 8.0 L ABG Oxyhemoglobin ABG Potassium ABG Chloride 93.0 L ABG Glucose 328 H Oxyhemoglobin Sodium Potassium Chloride 94.4 L Carbon Dioxide 38 H BUN 26 H Creatinine 0.5 L Glucose 348 H POC Glucose Lactic Acid Calcium Phosphorus Magnesium AST ALT Alkaline Phosphatase Ammonia Troponin T Total Protein Albumin Triglycerides HDL Cholesterol Lipase Arterial Blood Glucose 328 H Arterial Blood Ionized Calcium 4.5 L Acetaminophen Crossmatch 03/24/21 03/24/21 03/25/21 12:14 17:45 04:00 WBC 15.8 H RBC Hgb 7.5 L Hct 27.4 L MCV 75 L MCH 21 L MCHC 28 L RDW 24.0 H Plt Count 576 H Seg Neuts % (Manual) Lymphocytes % (Manual) Monocytes % (Manual) Nucleated RBC % Seg Neutrophils # Man Lymphocytes # (Manual) Monocytes # (Manual) INR APTT D-Dimer ABG pH POC ABG pCO2 POC ABG pO2 ABG pO2 ABG HCO3 ABG O2 Saturation ABG Base Excess ABG Hemoglobin ABG Oxyhemoglobin ABG Potassium ABG Chloride ABG Glucose Oxyhemoglobin Sodium Potassium Chloride Carbon Dioxide BUN Creatinine Glucose POC Glucose 315 H 324 H Lactic Acid Calcium Phosphorus Magnesium AST ALT Alkaline Phosphatase Ammonia Troponin T Total Protein Albumin Triglycerides HDL Cholesterol Lipase Arterial Blood Glucose Arterial Blood Ionized Calcium Acetaminophen Crossmatch 03/25/21 03/25/21 03/25/21 07:52 16:37 17:38 WBC RBC Hgb Hct MCV MCH MCHC RDW Plt Count Seg Neuts % (Manual) Lymphocytes % (Manual) Monocytes % (Manual) Nucleated RBC % Seg Neutrophils # Man Lymphocytes # (Manual) Monocytes # (Manual) INR APTT D-Dimer ABG pH POC ABG pCO2 POC ABG pO2 ABG pO2 ABG HCO3 ABG O2 Saturation ABG Base Excess ABG Hemoglobin ABG Oxyhemoglobin ABG Potassium ABG Chloride ABG Glucose Oxyhemoglobin Sodium Potassium Chloride 95.9 L Carbon Dioxide 33 H BUN 24 H Creatinine 0.4 L Glucose 289 H POC Glucose 321 H 295 H Lactic Acid Calcium Phosphorus Magnesium AST ALT Alkaline Phosphatase Ammonia Troponin T Total Protein Albumin Triglycerides HDL Cholesterol Lipase Arterial Blood Glucose Arterial Blood Ionized Calcium Acetaminophen Crossmatch 03/25/21 03/26/21 03/26/21 23:27 05:07 05:35 WBC 20.0 H RBC 3.37 L Hgb 7.0 L Hct 25.2 L MCV 75 L MCH 21 L MCHC 28 L RDW 24.0 H Plt Count 544 H Seg Neuts % (Manual) 72.0 H Lymphocytes % (Manual) 6.0 L Monocytes % (Manual) 8.0 H Nucleated RBC % Seg Neutrophils # Man 14.4 H Lymphocytes # (Manual) Monocytes # (Manual) 1.6 H INR APTT D-Dimer ABG pH POC ABG pCO2 POC ABG pO2 ABG pO2 ABG HCO3 ABG O2 Saturation ABG Base Excess ABG Hemoglobin ABG Oxyhemoglobin ABG Potassium ABG Chloride ABG Glucose Oxyhemoglobin Sodium Potassium Chloride Carbon Dioxide BUN Creatinine Glucose POC Glucose 231 H 200 H Lactic Acid Calcium Phosphorus Magnesium AST ALT Alkaline Phosphatase Ammonia Troponin T Total Protein Albumin Triglycerides HDL Cholesterol Lipase Arterial Blood Glucose Arterial Blood Ionized Calcium Acetaminophen Crossmatch 03/26/21 03/26/21 03/26/21 05:35 10:33 12:12 WBC RBC Hgb Hct MCV MCH MCHC RDW Plt Count Seg Neuts % (Manual) Lymphocytes % (Manual) Monocytes % (Manual) Nucleated RBC % Seg Neutrophils # Man Lymphocytes # (Manual) Monocytes # (Manual) INR APTT D-Dimer ABG pH POC ABG pCO2 POC ABG pO2 ABG pO2 ABG HCO3 ABG O2 Saturation ABG Base Excess ABG Hemoglobin ABG Oxyhemoglobin ABG Potassium ABG Chloride ABG Glucose Oxyhemoglobin Sodium Potassium 5.9 H D Chloride 91.9 L Carbon Dioxide 33 H BUN 20 H Creatinine 0.4 L Glucose 197 H POC Glucose 132 H 176 H Lactic Acid Calcium Phosphorus Magnesium AST ALT 169 H Alkaline Phosphatase 138 H Ammonia Troponin T Total Protein 5.5 L Albumin 3.2 L Triglycerides HDL Cholesterol Lipase Arterial Blood Glucose Arterial Blood Ionized Calcium Acetaminophen Crossmatch 03/26/21 03/26/21 03/26/21 16:50 18:06 22:19 WBC RBC Hgb Hct MCV MCH MCHC RDW Plt Count Seg Neuts % (Manual) Lymphocytes % (Manual) Monocytes % (Manual) Nucleated RBC % Seg Neutrophils # Man Lymphocytes # (Manual) Monocytes # (Manual) INR APTT D-Dimer ABG pH POC ABG pCO2 POC ABG pO2 ABG pO2 ABG HCO3 ABG O2 Saturation ABG Base Excess ABG Hemoglobin ABG Oxyhemoglobin ABG Potassium ABG Chloride ABG Glucose Oxyhemoglobin Sodium Potassium 5.2 H Chloride 91.7 L Carbon Dioxide 38 H BUN 19 H Creatinine 0.4 L Glucose 260 H POC Glucose 248 H 168 H Lactic Acid Calcium Phosphorus Magnesium AST ALT Alkaline Phosphatase Ammonia Troponin T Total Protein Albumin Triglycerides HDL Cholesterol Lipase Arterial Blood Glucose Arterial Blood Ionized Calcium Acetaminophen Crossmatch 03/27/21 03/27/21 03/27/21 01:02 01:32 04:15 WBC 21.4 H RBC 3.45 L Hgb 6.9 L Hct 26.2 L MCV 76 L MCH 20 L MCHC 27 L RDW 24.5 H Plt Count 500 H Seg Neuts % (Manual) Lymphocytes % (Manual) Monocytes % (Manual) Nucleated RBC % Seg Neutrophils # Man Lymphocytes # (Manual) Monocytes # (Manual) INR APTT D-Dimer ABG pH POC ABG pCO2 POC ABG pO2 ABG pO2 ABG HCO3 ABG O2 Saturation ABG Base Excess ABG Hemoglobin ABG Oxyhemoglobin ABG Potassium ABG Chloride ABG Glucose Oxyhemoglobin Sodium Potassium Chloride Carbon Dioxide BUN Creatinine Glucose POC Glucose 219 H 221 H Lactic Acid Calcium Phosphorus Magnesium AST ALT Alkaline Phosphatase Ammonia Troponin T Total Protein Albumin Triglycerides HDL Cholesterol Lipase Arterial Blood Glucose Arterial Blood Ionized Calcium Acetaminophen Crossmatch 03/27/21 03/27/21 03/27/21 04:15 06:37 11:21 WBC RBC Hgb Hct MCV MCH MCHC RDW Plt Count Seg Neuts % (Manual) Lymphocytes % (Manual) Monocytes % (Manual) Nucleated RBC % Seg Neutrophils # Man Lymphocytes # (Manual) Monocytes # (Manual) INR APTT D-Dimer ABG pH POC ABG pCO2 POC ABG pO2 ABG pO2 ABG HCO3 ABG O2 Saturation ABG Base Excess ABG Hemoglobin ABG Oxyhemoglobin ABG Potassium ABG Chloride ABG Glucose Oxyhemoglobin Sodium Potassium 5.3 H Chloride 94.4 L Carbon Dioxide 35 H BUN 20 H Creatinine 0.4 L Glucose 310 H POC Glucose 312 H 273 H Lactic Acid Calcium 8.3 L Phosphorus 4.60 H D Magnesium AST ALT Alkaline Phosphatase Ammonia Troponin T Total Protein Albumin Triglycerides HDL Cholesterol Lipase Arterial Blood Glucose Arterial Blood Ionized Calcium Acetaminophen Crossmatch 03/27/21 03/27/21 03/28/21 16:14 21:21 00:16 WBC RBC Hgb Hct MCV MCH MCHC RDW Plt Count Seg Neuts % (Manual) Lymphocytes % (Manual) Monocytes % (Manual) Nucleated RBC % Seg Neutrophils # Man Lymphocytes # (Manual) Monocytes # (Manual) INR APTT D-Dimer ABG pH POC ABG pCO2 POC ABG pO2 ABG pO2 ABG HCO3 ABG O2 Saturation ABG Base Excess ABG Hemoglobin ABG Oxyhemoglobin ABG Potassium ABG Chloride ABG Glucose Oxyhemoglobin Sodium Potassium Chloride Carbon Dioxide BUN Creatinine Glucose POC Glucose 241 H 179 H 160 H Lactic Acid Calcium Phosphorus Magnesium AST ALT Alkaline Phosphatase Ammonia Troponin T Total Protein Albumin Triglycerides HDL Cholesterol Lipase Arterial Blood Glucose Arterial Blood Ionized Calcium Acetaminophen Crossmatch 03/28/21 03/28/21 03/28/21 04:00 04:00 05:41 WBC 27.1 H RBC 3.46 L Hgb 7.1 L Hct 26.1 L MCV 76 L MCH 20 L MCHC 27 L RDW 24.0 H Plt Count 541 H Seg Neuts % (Manual) Lymphocytes % (Manual) Monocytes % (Manual) Nucleated RBC % Seg Neutrophils # Man Lymphocytes # (Manual) Monocytes # (Manual) INR APTT D-Dimer ABG pH POC ABG pCO2 POC ABG pO2 ABG pO2 ABG HCO3 ABG O2 Saturation ABG Base Excess ABG Hemoglobin ABG Oxyhemoglobin ABG Potassium ABG Chloride ABG Glucose Oxyhemoglobin Sodium Potassium Chloride 95.7 L Carbon Dioxide 36 H BUN 23 H Creatinine 0.4 L Glucose 295 H POC Glucose 279 H Lactic Acid Calcium Phosphorus Magnesium AST ALT Alkaline Phosphatase Ammonia Troponin T Total Protein Albumin Triglycerides HDL Cholesterol Lipase Arterial Blood Glucose Arterial Blood Ionized Calcium Acetaminophen Crossmatch 03/28/21 03/28/21 03/28/21 11:50 16:45 23:15 WBC RBC Hgb Hct MCV MCH MCHC RDW Plt Count Seg Neuts % (Manual) Lymphocytes % (Manual) Monocytes % (Manual) Nucleated RBC % Seg Neutrophils # Man Lymphocytes # (Manual) Monocytes # (Manual) INR APTT D-Dimer ABG pH POC ABG pCO2 POC ABG pO2 ABG pO2 ABG HCO3 ABG O2 Saturation ABG Base Excess ABG Hemoglobin ABG Oxyhemoglobin ABG Potassium ABG Chloride ABG Glucose Oxyhemoglobin Sodium Potassium Chloride Carbon Dioxide BUN Creatinine Glucose POC Glucose 233 H 240 H 189 H Lactic Acid Calcium Phosphorus Magnesium AST ALT Alkaline Phosphatase Ammonia Troponin T Total Protein Albumin Triglycerides HDL Cholesterol Lipase Arterial Blood Glucose Arterial Blood Ionized Calcium Acetaminophen Crossmatch 03/29/21 03/29/21 03/29/21 04:35 04:35 05:05 WBC 29.6 H RBC 3.18 L Hgb 6.7 L Hct 24.2 L MCV 76 L MCH 21 L MCHC 28 L RDW 24.0 H Plt Count 678 H Seg Neuts % (Manual) Lymphocytes % (Manual) Monocytes % (Manual) Nucleated RBC % Seg Neutrophils # Man Lymphocytes # (Manual) Monocytes # (Manual) INR APTT D-Dimer ABG pH POC ABG pCO2 POC ABG pO2 ABG pO2 ABG HCO3 ABG O2 Saturation ABG Base Excess ABG Hemoglobin ABG Oxyhemoglobin ABG Potassium ABG Chloride ABG Glucose Oxyhemoglobin Sodium Potassium Chloride 95.4 L Carbon Dioxide 37 H BUN 22 H Creatinine 0.4 L Glucose 194 H POC Glucose 195 H Lactic Acid Calcium Phosphorus Magnesium AST ALT Alkaline Phosphatase Ammonia Troponin T Total Protein Albumin Triglycerides HDL Cholesterol Lipase Arterial Blood Glucose Arterial Blood Ionized Calcium Acetaminophen Crossmatch 03/29/21 03/29/21 03/29/21 09:24 10:58 17:14 WBC RBC Hgb Hct MCV MCH MCHC RDW Plt Count Seg Neuts % (Manual) Lymphocytes % (Manual) Monocytes % (Manual) Nucleated RBC % Seg Neutrophils # Man Lymphocytes # (Manual) Monocytes # (Manual) INR APTT D-Dimer ABG pH POC ABG pCO2 POC ABG pO2 ABG pO2 ABG HCO3 ABG O2 Saturation ABG Base Excess ABG Hemoglobin ABG Oxyhemoglobin ABG Potassium ABG Chloride ABG Glucose Oxyhemoglobin Sodium Potassium Chloride Carbon Dioxide BUN Creatinine Glucose POC Glucose 106 H 117 H Lactic Acid Calcium Phosphorus Magnesium AST ALT Alkaline Phosphatase Ammonia Troponin T Total Protein Albumin Triglycerides HDL Cholesterol Lipase Arterial Blood Glucose Arterial Blood Ionized Calcium Acetaminophen Crossmatch See Detail 03/29/21 03/29/21 03/30/21 19:32 23:36 01:49 WBC 25.1 H RBC Hgb 9.3 L Hct MCV 77 L MCH 23 L MCHC RDW 22.7 H Plt Count 599 H Seg Neuts % (Manual) Lymphocytes % (Manual) Monocytes % (Manual) Nucleated RBC % Seg Neutrophils # Man Lymphocytes # (Manual) Monocytes # (Manual) INR APTT D-Dimer ABG pH POC ABG pCO2 POC ABG pO2 ABG pO2 ABG HCO3 ABG O2 Saturation ABG Base Excess ABG Hemoglobin ABG Oxyhemoglobin ABG Potassium ABG Chloride ABG Glucose Oxyhemoglobin Sodium Potassium Chloride Carbon Dioxide BUN Creatinine Glucose POC Glucose 57 L 55 L Lactic Acid Calcium Phosphorus Magnesium AST ALT Alkaline Phosphatase Ammonia Troponin T Total Protein Albumin Triglycerides HDL Cholesterol Lipase Arterial Blood Glucose Arterial Blood Ionized Calcium Acetaminophen Crossmatch 03/30/21 03/30/21 03/30/21 04:00 15:52 18:07 WBC RBC Hgb Hct MCV MCH MCHC RDW Plt Count Seg Neuts % (Manual) Lymphocytes % (Manual) Monocytes % (Manual) Nucleated RBC % Seg Neutrophils # Man Lymphocytes # (Manual) Monocytes # (Manual) INR APTT D-Dimer ABG pH POC ABG pCO2 POC ABG pO2 ABG pO2 ABG HCO3 ABG O2 Saturation ABG Base Excess ABG Hemoglobin ABG Oxyhemoglobin ABG Potassium ABG Chloride ABG Glucose Oxyhemoglobin Sodium Potassium Chloride 93.4 L Carbon Dioxide 34 H BUN 18 H Creatinine 0.3 L Glucose 114 H POC Glucose 112 H 130 H Lactic Acid Calcium Phosphorus 4.70 H Magnesium AST ALT Alkaline Phosphatase Ammonia Troponin T Total Protein Albumin Triglycerides HDL Cholesterol Lipase Arterial Blood Glucose Arterial Blood Ionized Calcium Acetaminophen Crossmatch 03/30/21 03/31/21 03/31/21 23:26 04:41 04:41 WBC 30.8 H RBC Hgb 9.3 L Hct MCV MCH 23 L MCHC 28 L RDW 22.3 H Plt Count 642 H Seg Neuts % (Manual) Lymphocytes % (Manual) Monocytes % (Manual) Nucleated RBC % Seg Neutrophils # Man Lymphocytes # (Manual) Monocytes # (Manual) INR APTT D-Dimer ABG pH POC ABG pCO2 POC ABG pO2 ABG pO2 ABG HCO3 ABG O2 Saturation ABG Base Excess ABG Hemoglobin ABG Oxyhemoglobin ABG Potassium ABG Chloride ABG Glucose Oxyhemoglobin Sodium Potassium Chloride 96.3 L Carbon Dioxide 34 H BUN Creatinine 0.3 L Glucose POC Glucose 124 H Lactic Acid Calcium Phosphorus Magnesium AST ALT Alkaline Phosphatase Ammonia Troponin T Total Protein Albumin Triglycerides HDL Cholesterol Lipase Arterial Blood Glucose Arterial Blood Ionized Calcium Acetaminophen Crossmatch 03/31/21 04/01/21 04/01/21 17:45 00:17 04:27 WBC 20.2 H RBC Hgb 9.1 L Hct MCV MCH 23 L MCHC 28 L RDW 22.3 H Plt Count 454 H Seg Neuts % (Manual) Lymphocytes % (Manual) Monocytes % (Manual) Nucleated RBC % Seg Neutrophils # Man Lymphocytes # (Manual) Monocytes # (Manual) INR APTT D-Dimer ABG pH POC ABG pCO2 POC ABG pO2 ABG pO2 ABG HCO3 ABG O2 Saturation ABG Base Excess ABG Hemoglobin ABG Oxyhemoglobin ABG Potassium ABG Chloride ABG Glucose Oxyhemoglobin Sodium Potassium Chloride Carbon Dioxide BUN Creatinine Glucose POC Glucose 130 H 108 H Lactic Acid Calcium Phosphorus Magnesium AST ALT Alkaline Phosphatase Ammonia Troponin T Total Protein Albumin Triglycerides HDL Cholesterol Lipase Arterial Blood Glucose Arterial Blood Ionized Calcium Acetaminophen Crossmatch 04/01/21 04/01/21 04/01/21 04:27 11:56 16:19 WBC RBC Hgb Hct MCV MCH MCHC RDW Plt Count Seg Neuts % (Manual) Lymphocytes % (Manual) Monocytes % (Manual) Nucleated RBC % Seg Neutrophils # Man Lymphocytes # (Manual) Monocytes # (Manual) INR APTT D-Dimer ABG pH POC ABG pCO2 POC ABG pO2 ABG pO2 ABG HCO3 ABG O2 Saturation ABG Base Excess ABG Hemoglobin ABG Oxyhemoglobin ABG Potassium ABG Chloride ABG Glucose Oxyhemoglobin Sodium Potassium Chloride Carbon Dioxide 31 H BUN Creatinine 0.4 L Glucose POC Glucose 112 H 172 H Lactic Acid Calcium Phosphorus Magnesium AST ALT Alkaline Phosphatase Ammonia Troponin T Total Protein Albumin Triglycerides HDL Cholesterol Lipase Arterial Blood Glucose Arterial Blood Ionized Calcium Acetaminophen Crossmatch 04/01/21 04/02/21 04/02/21 23:19 04:30 04:30 WBC 17.3 H RBC Hgb 8.7 L Hct 30.1 L MCV MCH 23 L MCHC 29 L RDW 22.4 H Plt Count 521 H Seg Neuts % (Manual) Lymphocytes % (Manual) Monocytes % (Manual) Nucleated RBC % Seg Neutrophils # Man Lymphocytes # (Manual) Monocytes # (Manual) INR APTT D-Dimer ABG pH POC ABG pCO2 POC ABG pO2 ABG pO2 ABG HCO3 ABG O2 Saturation ABG Base Excess ABG Hemoglobin ABG Oxyhemoglobin ABG Potassium ABG Chloride ABG Glucose Oxyhemoglobin Sodium Potassium Chloride Carbon Dioxide 33 H BUN Creatinine 0.4 L Glucose POC Glucose 112 H Lactic Acid Calcium Phosphorus Magnesium AST ALT Alkaline Phosphatase Ammonia Troponin T Total Protein Albumin Triglycerides HDL Cholesterol Lipase Arterial Blood Glucose Arterial Blood Ionized Calcium Acetaminophen Crossmatch 04/02/21 04/03/21 04/03/21 23:32 05:14 15:30 WBC 14.2 H RBC Hgb 9.6 L Hct MCV MCH 23 L MCHC 29 L RDW 23.4 H Plt Count 662 H Seg Neuts % (Manual) Lymphocytes % (Manual) Monocytes % (Manual) Nucleated RBC % Seg Neutrophils # Man Lymphocytes # (Manual) Monocytes # (Manual) INR APTT D-Dimer ABG pH POC ABG pCO2 POC ABG pO2 ABG pO2 ABG HCO3 ABG O2 Saturation ABG Base Excess ABG Hemoglobin ABG Oxyhemoglobin ABG Potassium ABG Chloride ABG Glucose Oxyhemoglobin Sodium Potassium Chloride Carbon Dioxide BUN Creatinine Glucose POC Glucose 112 H 118 H Lactic Acid Calcium Phosphorus Magnesium AST ALT Alkaline Phosphatase Ammonia Troponin T Total Protein Albumin Triglycerides HDL Cholesterol Lipase Arterial Blood Glucose Arterial Blood Ionized Calcium Acetaminophen Crossmatch 04/03/21 04/03/21 04/03/21 15:30 17:29 23:52 WBC RBC Hgb Hct MCV MCH MCHC RDW Plt Count Seg Neuts % (Manual) Lymphocytes % (Manual) Monocytes % (Manual) Nucleated RBC % Seg Neutrophils # Man Lymphocytes # (Manual) Monocytes # (Manual) INR APTT D-Dimer ABG pH POC ABG pCO2 POC ABG pO2 ABG pO2 ABG HCO3 ABG O2 Saturation ABG Base Excess ABG Hemoglobin ABG Oxyhemoglobin ABG Potassium ABG Chloride ABG Glucose Oxyhemoglobin Sodium Potassium Chloride Carbon Dioxide 35 H BUN Creatinine 0.4 L Glucose 163 H POC Glucose 157 H 66 L Lactic Acid Calcium Phosphorus Magnesium AST ALT Alkaline Phosphatase Ammonia Troponin T Total Protein Albumin Triglycerides HDL Cholesterol Lipase Arterial Blood Glucose Arterial Blood Ionized Calcium Acetaminophen Crossmatch 04/04/21 04/04/21 04/04/21 04:21 04:21 05:35 WBC 14.4 H RBC Hgb 9.9 L Hct MCV MCH 24 L MCHC RDW 23.0 H Plt Count 572 H Seg Neuts % (Manual) Lymphocytes % (Manual) Monocytes % (Manual) Nucleated RBC % Seg Neutrophils # Man Lymphocytes # (Manual) Monocytes # (Manual) INR APTT D-Dimer ABG pH POC ABG pCO2 POC ABG pO2 ABG pO2 ABG HCO3 ABG O2 Saturation ABG Base Excess ABG Hemoglobin ABG Oxyhemoglobin ABG Potassium ABG Chloride ABG Glucose Oxyhemoglobin Sodium 146 H Potassium Chloride 96.8 L Carbon Dioxide 35 H BUN Creatinine 0.4 L Glucose 111 H POC Glucose 124 H Lactic Acid Calcium Phosphorus Magnesium AST ALT Alkaline Phosphatase Ammonia Troponin T Total Protein Albumin Triglycerides HDL Cholesterol Lipase Arterial Blood Glucose Arterial Blood Ionized Calcium Acetaminophen Crossmatch 04/04/21 04/04/21 07:34 10:59 WBC RBC Hgb Hct MCV MCH MCHC RDW Plt Count Seg Neuts % (Manual) Lymphocytes % (Manual) Monocytes % (Manual) Nucleated RBC % Seg Neutrophils # Man Lymphocytes # (Manual) Monocytes # (Manual) INR APTT D-Dimer ABG pH POC ABG pCO2 POC ABG pO2 ABG pO2 ABG HCO3 ABG O2 Saturation ABG Base Excess ABG Hemoglobin ABG Oxyhemoglobin ABG Potassium ABG Chloride ABG Glucose Oxyhemoglobin Sodium Potassium Chloride Carbon Dioxide BUN Creatinine Glucose POC Glucose 116 H 152 H Lactic Acid Calcium Phosphorus Magnesium AST ALT Alkaline Phosphatase Ammonia Troponin T Total Protein Albumin Triglycerides HDL Cholesterol Lipase Arterial Blood Glucose Arterial Blood Ionized Calcium Acetaminophen Crossmatch
--- NOTE | 2021-04-04 17:37 | Progress Note ---
Assessment and Plan - Patient Problems (1) Respiratory failure Current Visit: Yes Status: Acute Plan to address problem: Patient with long history of severe, oxygen dependent COPD, presented with respiratory failure due to COPD exacerbation. Stable sinus rhythm in the CCU. Continue supportive management and current treatment of COPD exacerbation. Subjective Date of service: 04/04/21 Principal diagnosis: Atrial fibrillation with RVR, respiratory failure Interval history: Patient is awake, on BiPAP, night monitor remains in the stable sinus rhythm with frequent PACs. No new cardiac events reported. Objective Vital Signs Temp Pulse Pulse Pulse Resp Resp BP 04/04/21 17:00 90 20 124/81 04/04/21 16:31 93 H 19 138/73 04/04/21 16:01 116 H 17 138/73 04/04/21 16:00 80 82 16 138/73 04/04/21 15:31 100 H 16 150/68 04/04/21 15:00 81 16 150/68 04/04/21 14:31 80 20 139/50 04/04/21 14:01 115 H 17 139/50 04/04/21 13:31 87 16 134/69 04/04/21 13:01 99 H 11 L 134/69 04/04/21 12:31 103 H 14 148/67 04/04/21 12:08 99.7 F H 04/04/21 12:01 96 H 19 142/77 04/04/21 12:00 75 80 17 148/67 04/04/21 11:31 84 15 142/77 04/04/21 11:00 96 H 21 142/77 04/04/21 10:31 86 22 125/78 04/04/21 10:00 85 16 125/78 04/04/21 09:31 116 H 18 132/74 04/04/21 09:22 98 H 132/74 04/04/21 09:00 91 H 17 132/74 04/04/21 08:31 117 H 15 138/101 04/04/21 08:01 88 17 138/101 04/04/21 08:00 80 82 17 04/04/21 07:52 99.5 F 04/04/21 07:31 95 H 19 134/77 04/04/21 07:17 137 H 20 134/77 04/04/21 07:01 76 17 134/77 04/04/21 06:31 110 H 19 115/85 04/04/21 06:01 79 15 141/86 04/04/21 05:31 117 H 18 141/86 04/04/21 05:01 90 17 141/86 04/04/21 04:31 87 17 137/69 04/04/21 04:00 98.4 F 85 85 15 137/69 04/04/21 03:31 89 16 170/88 04/04/21 03:03 95 H 16 04/04/21 02:30 93 H 18 155/77 04/04/21 02:01 88 16 146/66 04/04/21 02:00 04/04/21 01:31 111 H 17 160/105 04/04/21 01:01 81 16 109/61 04/04/21 00:31 117 H 16 109/61 04/04/21 00:00 98.1 F 71 71 16 105/62 04/03/21 23:41 68 16 103/51 04/03/21 23:35 98 H 19 132/66 04/03/21 23:31 92 H 15 103/51 04/03/21 23:01 78 15 132/66 04/03/21 22:31 91 H 16 137/60 04/03/21 22:01 90 16 139/103 04/03/21 21:54 95 H 121/67 04/03/21 21:31 85 16 121/67 04/03/21 21:00 70 15 102/59 04/03/21 20:30 74 14 92/50 04/03/21 20:01 81 19 107/67 04/03/21 20:00 98.3 F 98 H 98 H 20 04/03/21 19:58 04/03/21 19:51 95 H 17 04/03/21 19:48 95 H 17 107/67 04/03/21 19:30 75 13 107/67 04/03/21 19:01 82 20 126/72 04/03/21 18:30 71 15 89/60 04/03/21 18:00 65 15 94/55 Pulse Ox 04/04/21 17:00 100 04/04/21 16:31 99 04/04/21 16:01 100 04/04/21 16:00 100 04/04/21 15:31 100 04/04/21 15:00 99 04/04/21 14:31 100 04/04/21 14:01 98 04/04/21 13:31 100 04/04/21 13:01 99 04/04/21 12:31 98 04/04/21 12:08 04/04/21 12:01 97 04/04/21 12:00 100 04/04/21 11:31 99 04/04/21 11:00 100 04/04/21 10:31 100 04/04/21 10:00 100 04/04/21 09:31 100 04/04/21 09:22 04/04/21 09:00 100 04/04/21 08:31 99 04/04/21 08:01 100 04/04/21 08:00 99 04/04/21 07:52 04/04/21 07:31 100 04/04/21 07:17 98 04/04/21 07:01 100 04/04/21 06:31 100 04/04/21 06:01 100 04/04/21 05:31 98 04/04/21 05:01 99 04/04/21 04:31 98 04/04/21 04:00 99 04/04/21 03:31 98 04/04/21 03:03 98 04/04/21 02:30 99 04/04/21 02:01 100 04/04/21 02:00 100 04/04/21 01:31 96 04/04/21 01:01 100 04/04/21 00:31 100 04/04/21 00:00 100 04/03/21 23:41 100 04/03/21 23:35 98 04/03/21 23:31 100 04/03/21 23:01 100 04/03/21 22:31 99 04/03/21 22:01 100 04/03/21 21:54 04/03/21 21:31 100 04/03/21 21:00 100 04/03/21 20:30 100 04/03/21 20:01 100 04/03/21 20:00 99 04/03/21 19:58 100 04/03/21 19:51 04/03/21 19:48 98 04/03/21 19:30 100 04/03/21 19:01 98 04/03/21 18:30 100 04/03/21 18:00 100 - Physical Examination General: Other (Comfortable in no acute distress) HEENT: Positive: PERRL Neck: Positive: neck supple Cardiac: Positive: Irregularly Regular Lungs: Positive: Decreased Breath Sounds Neuro: Positive: Grossly Intact Abdomen: Positive: Soft Skin: Positive: Clear Extremities: Absent: edema - Labs and Meds CBC 04/04/21 Range/Units 04:21 WBC 14.4 H (4.5-11.0) K/mm3 RBC 4.13 (3.65-5.03) M/mm3 Hgb 9.9 L (10.1-14.3) gm/dl Hct 33.2 (30.3-42.9) % Plt Count 572 H (140-440) K/mm3 Comprehensive Metabolic Panel 04/04/21 Range/Units 04:21 Sodium 146 H (137-145) mmol/L Potassium 4.1 (3.6-5.0) mmol/L Chloride 96.8 L (98-107) mmol/L Carbon Dioxide 35 H (22-30) mmol/L BUN 9 (7-17) mg/dL Creatinine 0.4 L (0.6-1.2) mg/dL Glucose 111 H (65-100) mg/dL Calcium 9.5 (8.4-10.2) mg/dL
[2021-04-04] MEDS: dilTIAZem 60 MG TAB FEEDTUBE SCH ×2 (18:06→21:51)
[2021-04-04] MEDS: LORazepam 2 MG/ML VIAL IV PRN (20:08)
[2021-04-04] MEDS: ALPRAZolam 1 MG TAB PO PRN (21:52)
[2021-04-05] MEDS: INSULIN LISPRO 100 UNIT/ML SUB-Q SCH ×4 (02:26→18:20)
[2021-04-05] MEDS: dilTIAZem 60 MG TAB FEEDTUBE SCH ×3 (06:39→22:26)
[2021-04-05] MEDS: ALPRAZolam 1 MG TAB PO PRN (06:40)
[2021-04-05] MEDS: MORPHINE 2 MG/1 ML INJ IV PRN (06:40)
[2021-04-05] MEDS: HEPARIN 5,000 UNIT/1 ML VIAL SUB-Q SCH ×3 (06:42→22:27)
[2021-04-05] MEDS: BUDESONIDE 0.5 MG/2 ML NEBU IH SCH ×2 (07:47→19:38)
[2021-04-05] MEDS: ARFORMOTEROL 15 MCG/2 ML NEBU IH SCH ×2 (07:47→19:38)
--- NOTE | 2021-04-05 09:10 | Progress Note ---
Assessment and Plan Assessment and plan: Interval history: This is a 60-year-old female with COPD with oxygen dependence currently with palliative care, DM, former nicotine abuse, severe anxiety, GERD, HLD, HTN and PAGE presented to emergency department on 03/17 via EMS with complaints of shortness of breath. On arrival of EMS patient was found to be in SVT with a heart rate of about 200 and blood pressure to be quite elevated with systolic in 200s. She was given 6 mg of adenosine without significant changes subsequently given 12 mg of adenosine with improvement of her heart rate. Upon arrival to the emergency department patient was found to be in atrial fibrillation with RVR and dyspneic. Work-up in the emergency department revealed leukocytosis, lactic acidosis, transaminitis, hypoalbuminemia and a troponin leak. CXR, CT a chest and CT head were unremarkable. Patient was admitted to the hospitalist service with consults to [facility] and cardiology for further work-up of acute on chronic respiratory failure, SVT and hypertensive urgency. Hospital Course to date: 03/18/2021: Patient is intubated and on vent support, Patient is in sinus tachycardia 03/19: COVID-19 PCR negative, remains on ventilatory support, Versed drip changed to propofol. No acute events reported overnight. Tracheal aspirate w ith few gram-positive Cocci. This afternoon, patient went in to the 150s, giving 500 mL NS bolus and fentanyl push to see if it pain related. If persists then will order prn Ativan per Dr. Gage recommendation. 03/20: Restarted on home metoprolol and abdominal ultrasound showed right hydronephrosis. Abd US shows right hydroureteronephrosis and will obtain a dedicated renal US. She seems to more comfortable on propofol and fentanyl 03/21: Patient's FiO2 had to be decreased overnight due to hypoxia and tachycardia. Hyperkalemia noted and given Kayexalate. 1 unit PRBC for hemoglobin 6.8. [facility] plans to extubate tomorrow. Increase in Lantus. 03/22: Transfuse one unit prbc, failed SBT in the AM d/t hypertension. [facility] extubated the patient but she was reintubated within [address] head ordered and pending read. Given kionex x2 for hyperkalemia 03/23: This morning patient was only on Precedex drip and overnight she had agitation, hypertension and tachycardia. RN instructed to place fentanyl drip. Increase in Lantus for better glucose control. Will remove [place] today. 03/24/2021: no acute events reported overnight. Patient remains intubated and is currently on fentanyl and Precedex. Increase in Lantus due to hyperglycemia. 03/25: no acute events overnight. increase in lantus and decreased steroids today. 04/02: Bipap q hs and optiflow in the AM, remains on precedex. Psych consulted today. 04/03: Patient failed swallow evaluation today and ST recommended PEG tube placement. NG tube was replaced yesterday and tube feeds changed to cyclic feedings today given she was BiPAP overnight. Psych consulted. Likely DC tomorrow or . 04/04: Patient has long standing anxiety history. Needs medication optimization. May uptitrate buspar. PCCM stated that patient did not tolerate klonopin as an OP. Currently working to taper steroids. No GI consult at this time for PEG as PCCM d/w . Will continue to work with CM for hospice placement. 04/05: Klonopin unfortunately not effective in this patient. Awaiting psych input/eval for today. Will continue to work towards hospice placement with CM. Assessment and plan: Neuro: Hepatic/metabolic encephalopathy, h/o severe anxiety, depression -Admit ammonia 116, 03/09 ammonia 26 -Precedex gtt -xanax, ativan, haldol and morphine prn -Buspar increased dose today on hopes to wean of precedex; home cymbalta on hold (cannot crush) -Psych consulted, appreciate recommendations -Avoid delirium -Maintain sleep-wake cycle -SAT when appropriate -CT head on admit with no acute findings -Repeat CT head d/t AMS-> no acute changes Cardio: Hypertensive emergency (resolved), s/p A. fib with RVR and SVT, h/o HTN, HLD -s/p X2 doses of adenosine in the ED -Cardiology consulted, appreciate recommendations -PO metoprolol BID -Resume home statin -Blood pressure monitoring per protocol -Echocardiogram 10/2020 showed EF of 50 to 55%, mild diastolic dysfunction, trace to mild tricuspid regurgitation, mild pulmonary hypertension, RVSP 45 mmHg Resp : Acute on chronic respiratory failure, h/o COPD and APGE -CCM consulted, appreciate recommendations -CTA chest shows no CT evidence of pulmonary embolism, small right and trace left pleural effusion, upper lobe predominant emphysema -Intubated on 03/17 with 7.00 ETT at 20 at the lips and extubated 03/22 but reintubated shortly after; Self-extubated on 03/29 -weaned to BiPAP q hs, Optiflow in AM -VAP bundle -SPO2 monitoring -Methylprednisone weaning-> PO will be slow wean -nebs per [facility] GI: Transaminitis (resolving), h/o chronic constipation -NTR consulted, appreciate recommendations -RUQ US shows right hydroureteronephrosis and possible gallbladder sludge or gallstones -Renal ultrasound shows mild right-sided hydronephrosis with parenchymal thinning and trace perinephric fluid. -need to follow up outpatient -PPI -BR: senakot S and colace, prn mom -BM 04/01 -24 hours +1632 mL -Failed bedside swallow eval -NGT reinserted and TF changed to cyclic; ST recommends PEG : Mild right hydroureteronephrosis -Trend BMP -FWF with TF -stop D51/2 NS when TF resumed -Strict I & Os -Wallis -Renal ultrasound shows mild right-sided hydronephrosis with parenchymal thinning and trace perinephric fluid. Endo: h/o DM -Avoid hypoglycemia -SSI -Accucheck q 6hrs -Lantus -titrate as needed Heme: Anemia, Leukocytosis, h/o Microcytic anemia -Trend CBC -Transfuse for hbg <7 -s/p 2 unit PRBCs -SCDs to BLE while in bed -Lovenox subq ID: Gram positive cocci in tracheal aspirate -02/25 tracheal aspirate with few gram-positive cocci -s/p Levaquin (03/18-) -Trend WBC and fever curve -Repeat blood cultures and sputum culture NGTD -Trend WBC and fever curve The high probability of a clinically significant, sudden or life threatening deterioration of the [pulm/cv] system(s) required my full and direct attention, intervention and personal management. The aggregate critical care time was [60] minutes. This time is in addition to time spent performing reported procedures but includes the following: [x] Data Review and interpretation [x] Patient assessment and monitoring of vital signs [x] Documentation [x] Medication orders and management Disposition Plan: IMCU Total Time Spent with Patient (Minutes): 60 History Interval history: Remains on hi flow. no overnight events. Hospitalist Physical - Physical exam Narrative exam: General appearance: Present: no acute distress, obese - EENT Eyes: Present: PERRL, EOM intact ENT: hearing intact, clear oral mucosa, dentition normal - Neck Neck: Present: normal ROM - Respiratory Respiratory effort: normal Respiratory: bilateral: diminished - Cardiovascular Rhythm: regular Heart Sounds: Present: S1 & S2. Absent: systolic murmur, diastolic murmur - Extremities Extremities: no ischemia, pulses intact, pulses symmetrical, normal temperature, normal color Peripheral Pulses: within normal limits - Abdominal General gastrointestinal: soft, non-tender, non-distended, normal bowel sounds - Integumentary Integumentary: Present: warm, dry - Psychiatric Psychiatric: cooperative, agitated - Neurologic Neurologic: CNII-XII intact, no focal deficits, moves all extremities - Constitutional Vitals: Temp Pulse Resp BP Pulse Ox 98.2 F 94 H 22 129/63 97 04/05/21 08:00 04/05/21 08:00 04/05/21 08:00 04/05/21 08:00 04/05/21 08:00 General appearance: Present: no acute distress, obese HEART Score - HEART Score Troponin: Troponin T < 0.010 ng/mL (0.00-0.029) 03/29/21 09:24 Results - Labs CBC & Chem 7: 04/04/21 04:21 04/04/21 04:21 Labs: Laboratory Last Values WBC 14.4 K/mm3 (4.5-11.0) H 04/04/21 04:21 RBC 4.13 M/mm3 (3.65-5.03) 04/04/21 04:21 Hgb 9.9 gm/dl (10.1-14.3) L 04/04/21 04:21 Hct 33.2 % (30.3-42.9) 04/04/21 04:21 MCV 80 fl (79-97) 04/04/21 04:21 MCH 24 pg (28-32) L 04/04/21 04:21 MCHC 30 % (30-34) 04/04/21 04:21 RDW 23.0 % (13.2-15.2) H 04/04/21 04:21 Plt Count 572 K/mm3 (140-440) H 04/04/21 04:21 [place] % (Auto) Hat Steamer 03/24/21 08:03 Add Manual Diff Complete 03/26/21 05:35 Total Counted 100 03/26/21 05:35 Seg Neuts % (Manual) 72.0 % (40.0-70.0) H 03/26/21 05:35 Band Neutrophils % 5.0 % 03/26/21 05:35 Lymphocytes % (Manual) 6.0 % (13.4-35.0) L 03/26/21 05:35 Reactive Lymphs % (Man) 5.0 % 03/19/21 04:59 Monocytes % (Manual) 8.0 % (0.0-7.3) H 03/26/21 05:35 Metamyelocytes % 3.0 % 03/26/21 05:35 Myelocytes % 5.0 % 03/26/21 05:35 Promyelocytes % 1.0 % 03/26/21 05:35 Nucleated RBC % Not Reportable 03/26/21 05:35 Seg Neutrophils # Man 14.4 K/mm3 (1.8-7.7) H 03/26/21 05:35 Band Neutrophils # 1.0 K/mm3 03/26/21 05:35 Lymphocytes # (Manual) 1.2 K/mm3 (1.2-5.4) 03/26/21 05:35 Abs React Lymphs (Man) 0.0 K/mm3 03/26/21 05:35 Monocytes # (Manual) 1.6 K/mm3 (0.0-0.8) H 03/26/21 05:35 Eosinophils # (Manual) 0.0 K/mm3 (0.0-0.4) 03/26/21 05:35 Basophils # (Manual) 0.0 K/mm3 (0.0-0.1) 03/26/21 05:35 Metamyelocytes # 0.6 K/mm3 03/26/21 05:35 Myelocytes # 1.0 K/mm3 03/26/21 05:35 Promyelocytes # 0.2 K/mm3 03/26/21 05:35 Blast Cells # 0.0 K/mm3 03/26/21 05:35 WBC Morphology Not Reportable 03/26/21 05:35 Hypersegmented Neuts Not Reportable 03/26/21 05:35 Hyposegmented Neuts Not Reportable 03/26/21 05:35 Hypogranular Neuts Not Reportable 03/26/21 05:35 Smudge Cells Not Reportable 03/26/21 05:35 Toxic Granulation Not Reportable 03/26/21 05:35 Toxic Vacuolation Not Reportable 03/26/21 05:35 Dohle Bodies Not Reportable 03/26/21 05:35 Pelger-Huet Anomaly Not Reportable 03/26/21 05:35 Florentino Rods Not Reportable 03/26/21 05:35 Platelet Estimate Consistent w auto 03/26/21 05:35 Clumped Platelets Not Reportable 03/26/21 05:35 Plt Clumps, EDTA Not Reportable 03/26/21 05:35 Large Platelets 1+ 03/26/21 05:35 Giant Platelets Not Reportable 03/26/21 05:35 Platelet Satelliting Not Reportable 03/26/21 05:35 Plt Morphology Comment Not Reportable 03/26/21 05:35 RBC Morphology Not Reportable 03/26/21 05:35 Dimorphic RBCs Not Reportable 03/26/21 05:35 Polychromasia 1+ 03/26/21 05:35 Hypochromasia 2+ 03/26/21 05:35 Poikilocytosis 1+ 03/26/21 05:35 Anisocytosis 2+ 03/26/21 05:35 Microcytosis Not Reportable 03/26/21 05:35 Macrocytosis Not Reportable 03/26/21 05:35 Spherocytes Not Reportable 03/26/21 05:35 Pappenheimer Bodies Not Reportable 03/26/21 05:35 Sickle Cells Not Reportable 03/26/21 05:35 Target Cells 1+ 03/26/21 05:35 Tear Drop Cells 1+ 03/26/21 05:35 Ovalocytes Not Reportable 03/26/21 05:35 Stomatocytes 1+ 03/26/21 05:35 Helmet Cells Not Reportable 03/26/21 05:35 [place] Bodies Not Reportable 03/26/21 05:35 [place] Rings Not Reportable 03/26/21 05:35 Marcelo Cells Not Reportable 03/26/21 05:35 Bite Cells Not Reportable 03/26/21 05:35 Crenated Cell Not Reportable 03/26/21 05:35 Elliptocytes Not Reportable 03/26/21 05:35 Acanthocytes (Spur) Not Reportable 03/26/21 05:35 Rouleaux Not Reportable 03/26/21 05:35 Hemoglobin C Crystals Not Reportable 03/26/21 05:35 Schistocytes 1+ 03/26/21 05:35 Malaria parasites Not Reportable 03/26/21 05:35 [place] Bodies Not Reportable 03/26/21 05:35 Hem Pathologist Commnt No 03/26/21 05:35 PT 12.6 Sec. (12.2-14.9) 03/17/21 17:37 INR 0.85 (0.87-1.13) L 03/17/21 17:37 APTT 23.3 Sec. (24.2-36.6) L 03/17/21 17:37 D-Dimer 947.92 ng/mlDDU (0-234) H 03/17/21 17:37 ABG pH 7.477 (7.320-7.450) H 03/24/21 08:57 POC ABG pCO2 56.9 mmHg (32.0-48.0) H 03/24/21 08:57 ABG pCO2 72.7 mm Hg 03/23/21 04:50 POC ABG pO2 100.6 mmHg (83-108) 03/24/21 08:57 ABG pO2 70.7 mm Hg (80.0-90.0) L 03/23/21 04:50 POC ABG HCO3 41.1 03/24/21 08:57 ABG HCO3 41.7 mmol/L (20.0-26.0) H 03/23/21 04:50 ABG O2 Saturation 98.3 (0-100) 03/24/21 08:57 ABG O2 Content 7.8 (0.0-44) 03/23/21 04:50 POC ABG Base Excess 15.8 03/24/21 08:57 ABG Base Excess 15.2 mmol/L (-2.0-3.0) H 03/23/21 04:50 ABG Hemoglobin 8.0 (12.0-17.5) L 03/24/21 08:57 ABG Oxyhemoglobin 96.8 (94-98) 03/24/21 08:57 ABG Carboxyhemoglobin 1.7 % (0.0-5.0) 03/23/21 04:50 ABG Methemoglobin 0.3 (0.0-1.5) 03/24/21 08:57 ABG Sodium 139.1 mmol/L (136.0-145.0) 03/24/21 08:57 ABG Potassium 3.9 mmol/L (3.40-4.50) 03/24/21 08:57 ABG Chloride 93.0 mmol/L (98-107) L 03/24/21 08:57 ABG Glucose 328 mg/dL (65-95) H 03/24/21 08:57 Oxyhemoglobin 96.9 % (95.0-99.0) 03/23/21 04:50 Carboxyhemoglobin 1.2 (0.5-1.5) 03/24/21 08:57 FiO2 40 % 03/23/21 04:50 FiO2 % 40 03/24/21 08:57 Sodium 146 mmol/L (137-145) H 04/04/21 04:21 Potassium 4.1 mmol/L (3.6-5.0) 04/04/21 04:21 Chloride 96.8 mmol/L (98-107) L 04/04/21 04:21 Carbon Dioxide 35 mmol/L (22-30) H 04/04/21 04:21 Anion Gap 18 mmol/L 04/04/21 04:21 BUN 9 mg/dL (7-17) 04/04/21 04:21 Creatinine 0.4 mg/dL (0.6-1.2) L 04/04/21 04:21 Estimated GFR > 60 ml/min 04/04/21 04:21 BUN/Creatinine Ratio 23 % 04/04/21 04:21 Glucose 111 mg/dL (65-100) H 04/04/21 04:21 POC Glucose 133 mg/dL (70-105) H 04/05/21 05:48 Lactic Acid 4.00 mmol/L (0.7-2.0) H* 03/17/21 23:36 Calcium 9.5 mg/dL (8.4-10.2) 04/04/21 04:21 Phosphorus 4.50 mg/dL (2.5-4.5) 03/31/21 04:41 Magnesium 2.20 mg/dL (1.7-2.3) 03/31/21 04:41 Total Bilirubin 0.30 mg/dL (0.1-1.2) 03/26/21 05:35 Direct Bilirubin < 0.2 mg/dL (0-0.2) 03/19/21 12:00 Indirect Bilirubin 0.1 mg/dL 03/19/21 12:00 AST 35 units/L (5-40) 03/26/21 05:35 ALT 169 units/L (7-56) H 03/26/21 05:35 Alkaline Phosphatase 138 units/L (35-129) H 03/26/21 05:35 Ammonia 26.0 umol/L (25-60) 03/19/21 12:00 Total Creatine Kinase 123 units/L (30-135) 03/29/21 09:24 CK-MB (CK-2) 1.5 ng/mL (0.0-4.0) 03/29/21 09:24 CK-MB (CK-2) Rel Index 1.2 (0-4) 03/29/21 09:24 Troponin T < 0.010 ng/mL (0.00-0.029) 03/29/21 09:24 NT-Pro-B Natriuret Pep 576.0 pg/mL (0-900) 03/17/21 17:36 Total Protein 5.5 g/dL (6.3-8.2) L 03/26/21 05:35 Albumin 3.2 g/dL (3.9-5) L 03/26/21 05:35 Albumin/Globulin Ratio 1.4 % 03/26/21 05:35 Triglycerides 189 mg/dL (2-149) H 03/22/21 04:39 Cholesterol 191 mg/dL (50-199) 03/17/21 17:36 LDL Cholesterol Direct 80 mg/dL (50-130) 03/17/21 17:36 HDL Cholesterol 73 mg/dL (40-59) H 03/17/21 17:36 Cholesterol/HDL Ratio 2.61 % 03/17/21 17:36 Amylase 78 units/L (27-131) 03/19/21 Unknown Lipase 12 units/L (13-60) L 03/19/21 Unknown TSH 3.510 mlU/mL (0.270-4.200) 03/17/21 22:57 Arterial Blood Glucose 328 mg/dL (65-95) H 03/24/21 08:57 Arterial Blood Ionized Calcium 4.5 mg/dL (4.6-5.3) L 03/24/21 08:57 Urine Color [place] (Yellow) 03/17/21 19:42 Urine Turbidity Slightly-cloudy (Clear) 03/17/21 19:42 Urine pH 7.0 (5.0-7.0) 03/17/21 19:42 Ur Specific [place] 1.015 (1.003-1.030) 03/17/21 19:42 Urine Protein 100 mg/dl mg/dL (Negative) 03/17/21 19:42 Urine Glucose (UA) Neg mg/dL (Negative) 03/17/21 19:42 Urine Ketones 20 mg/dL (Negative) 03/17/21 19:42 Urine Blood Sm (Negative) 03/17/21 19:42 Urine Nitrite Neg (Negative) 03/17/21 19:42 Urine Bilirubin Neg (Negative) 03/17/21 19:42 Urine Urobilinogen 2.0 mg/dL (<2.0) 03/17/21 19:42 Ur Leukocyte Esterase Neg (Negative) 03/17/21 19:42 Urine WBC (Auto) 4.0 /HPF (0.0-6.0) 03/17/21 19:42 Urine RBC (Auto) 6.0 /HPF (0.0-6.0) 03/17/21 19:42 U Epithel Cells (Auto) 5.0 /HPF (0-13.0) 03/17/21 19:42 Urine Bacteria (Auto) 1+ /HPF (Negative) 03/17/21 19:42 Urine Mucus 1+ /HPF 03/17/21 19:42 Urine Yeast (Budding) Few /HPF 03/17/21 19:42 Acetaminophen 5.0 ug/mL (10.0-30.0) L 03/18/21 23:07 Coronavirus (PCR) Negative (Negative) 03/19/21 Unknown Blood Type A POSITIVE 03/29/21 09:24 Antibody Screen Negative 03/29/21 09:24 Crossmatch See Detail 03/29/21 09:24 [place]/IV: Voiding Method External Female Catheter Active Medications - Current Medications Current Medications: Generic Name Dose Route Start Last Admin Trade Name Freq PRN Reason Stop Dose Admin Acetaminophen 650 mg 03/18/21 00:05 04/04/21 06:20 Acetaminophen 325 Mg Tab PO 650 mg Q6H PRN Administration Pain MILD(1-3)/Fever >100.5/TOVAR Albuterol 2.5 mg 03/22/21 08:00 04/03/21 15:40 Albuterol 2.5 Mg/3 Ml Nebu IH 2.5 mg Q6H PRN Administration Wheezing Alprazolam 1 mg 03/26/21 10:53 04/05/21 06:40 Alprazolam 1 Mg Tab PO 1 mg Q8H PRN Administration AGITATION Arformoterol Tartrate 15 mcg 03/24/21 11:00 04/05/21 07:47 Arformoterol 15 Mcg/2 Ml Nebu IH 15 mcg Q12HRT BUTCH Administration Atorvastatin Calcium 10 mg 03/19/21 22:00 04/04/21 21:53 Atorvastatin 10 Mg Tab PO 10 mg QHS BUTCH Administration Budesonide 0.5 mg 03/24/21 11:00 04/05/21 07:47 Budesonide 0.5 Mg/2 Ml Nebu IH 0.5 mg Q12HRT BUTCH Administration Buspirone HCl 30 mg 04/04/21 16:00 04/04/21 21:52 Buspirone 10 Mg Tab PO 30 mg TID BUTCH Administration Clonazepam 0.5 mg 04/03/21 15:00 04/04/21 21:52 Clonazepam 0.5 Mg Tab PO 0.5 mg BID BUTCH Administration Dextrose 0 ml 03/17/21 23:58 03/31/21 05:16 Dextrose 50% In Water (25gm) 50 Ml Syringe IV 10 ml Q30MIN PRN Administration Hypoglycemia Protocol Diltiazem HCl 60 mg 04/04/21 18:00 04/05/21 06:39 Diltiazem 60 Mg Tab FEEDTUBE 60 mg Q8HR BUTCH Administration Docusate Sodium 100 mg 03/23/21 10:00 04/04/21 21:53 Docusate Sodium 100 Mg/10 Ml Oral Liqd PO 100 mg BID BUTCH Administration Duloxetine HCl 30 mg 04/05/21 10:00 Duloxetine 30 Mg Cap PO QDAY BUTCH Famotidine 20 mg 03/20/21 22:00 04/04/21 21:53 Famotidine 20 Mg Tab FEEDTUBE 20 mg BID BUTCH Administration Fentanyl 50 mcg 03/26/21 10:08 04/02/21 02:03 Fentanyl 100 Mcg/2 Ml Inj IV 50 mcg Q2H PRN Administration Pain, Moderate (4-6) Haloperidol Lactate 5 mg 03/30/21 09:52 04/01/21 08:33 Haloperidol Lactate 5 Mg/1 Ml Inj IV 5 mg Q6H PRN Administration Agitation Heparin Sodium (Porcine) 5,000 unit 03/18/21 06:00 04/05/21 06:42 Heparin 5,000 Unit/1 Ml Vial SUB-Q 5,000 unit Q8HR BUTCH Administration Hydralazine HCl 5 mg 03/29/21 10:56 Hydralazine 20 Mg/1 Ml Inj IV Q4HR PRN SBP >160 Hydrophilic Ointment 1 applic 03/17/21 17:35 Lip Therapy Vaseline TP Q2HR PRN Dry Lips Dexmedetomidine HCl 400 mcg/ 104 mls @ 4.306 mls/hr 03/21/21 13:00 04/03/21 12:23 Sodium Chloride IV 0.6 mcg/kg/hr TITRATE BUTCH 12.917 mls/hr Administration Protocol 0.2 MCG/KG/HR Insulin Human Lispro 0 unit 03/19/21 12:00 04/05/21 06:40 Insulin Lispro 100 Unit/Ml SUB-Q Not Given Q6HR [facility] Protocol Lorazepam 0.5 mg 03/30/21 09:53 04/04/21 20:08 Lorazepam 2 Mg/Ml Vial IV 0.5 mg Q4H PRN Administration Anxiety Magnesium Hydroxide 30 ml 03/18/21 00:05 03/24/21 09:36 Magnesium Hydroxide (Mom) Oral Liqd Udc PO 30 ml Q4H PRN Administration Constipation Metoprolol Tartrate 25 mg 03/20/21 22:00 04/04/21 21:52 Metoprolol Tartrate 25 Mg Tab PO 25 mg BID [facility] Administration Morphine Sulfate 2 mg 03/18/21 00:05 04/05/21 06:40 Morphine 2 Mg/1 Ml Inj IV 2 mg Q4H PRN Administration Pain, Moderate (4-6) Morphine Sulfate 4 mg 03/18/21 00:05 04/03/21 17:21 Morphine 4 Mg/1 Ml Inj IV 4 mg Q4H PRN Administration Pain , Severe (7-10) Multi-Ingred Cream/Lotion/Oil/Oint 1 applic 03/17/21 17:35 Mineral Oil/Petrolatum, White Ophth Oint 3.5 Gm OU Q4HR PRN Dry Eye(s) Prednisone 15 mg 04/03/21 10:00 04/04/21 09:22 Prednisone 5 Mg Tab PO 15 mg QDAY BUTCH Administration Senna/Docusate Sodium 1 tab 03/17/21 22:00 04/04/21 21:54 Sennosides/Docusate Sodium 8.6/50 Mg Tab FEEDTUBE 1 tab BID BUTCH Administration Simple Syrup 15 ml 03/19/21 18:16 04/04/21 22:02 Simple Syrup 15 Ml FEEDTUBE 15 ml PRN PRN Administration Hypoglycemia Simple Syrup 30 ml 03/19/21 18:16 Simple Syrup 15 Ml FEEDTUBE PRN PRN Hypoglycemia Sodium Chloride 10 ml 03/18/21 10:00 04/04/21 21:54 Sodium Chloride 0.9% 10 Ml Flush Syringe IV 10 ml BID BUTCH Administration Sodium Chloride 10 ml 03/17/21 23:58 03/22/21 23:20 Sodium Chloride 0.9% 10 Ml Flush Syringe IV 10 ml PRN PRN Administration LINE FLUSH Nutrition/Malnutrition Assess - Dietary Evaluation Nutrition/Malnutrition Findings: Nutrition Notes Start: 03/18/21 09:46 Freq: Status: Active Protocol: Document 04/03/21 10:01 PAM (Rec: 04/03/21 10:45 PAM [id number]) Nutrition Notes Current Diet Cyclic 12 hr TF-Vital AF 1.2 Brenden @ 88 ml/hr (since D 04/03) . Labs/Tests 04/02: CO2 33, Crea 0.4, Glu 70, POC Glu 118. Pertinent Medications 04/03: Nutritionally unremarkable. Height 5 ft 6 in Weight 82.8 kg [place] Body Weight (kg) 59.09 BMI 29.5 Weight change and time frame No body weight change reported . Weight Status Overweight Subjective/Other Information RD consult for routine F/U on TF continuation. RN called to request adjust TF to 12 hours Cyclic rate. Percent of energy/protein needs met: Prescribed Vital AF 1.2 Brenden @ 88 ml/hr provides for energy/ protein needs (1,260 Kcal/79 g ) during LOS. #1 Nutrition Diagnosis Inadequate oral intake Comments: RN requested adjust TF to 12 hrs cyclic rate. Diagnosis Progress(for reassessment Improved documentation) Is patient on ventilator? No Is Patient Ambulatory and/or Out of Bed No REE-([facility]-confined to bed) 1690.656 Calculation Used for Recommendations [facility] Additional Notes Pro needs 1.2-2g/k-166g/ day Fluid needs 1ml/kcal Nutrition Intervention Nutrition Support: Vital AF 1.2 Brenden @ 88 ml/hr. Flush: 140 ml water Q 4 hr. Kcal 1,260 Protein (gm) 79 Carbohydrates (gm) 116 Fat (gm) 57 Fluid (mL) 852 Fiber (gm) 5 % RDI: 75% Kcal; 80% AA. Goal #1 Provide at least 75% of energy /protein needs through Enteral Feeding during LOS. Follow-Up By: 04/05/21 Additional Comments TF re-start, TF formula change /tolerance, resp status, BG labs
[2021-04-05] MEDS: DULoxetine 30 MG CAP PO SCH (09:38)
[2021-04-05] MEDS: DOCUSATE SODIUM 100 MG/10 ML ORAL LIQD PO SCH ×2 (09:38→22:27)
[2021-04-05] MEDS: FAMOTIDINE 20 MG TAB FEEDTUBE SCH ×2 (09:38→22:27)
[2021-04-05] MEDS: METOPROLOL TARTRATE 25 MG TAB PO SCH ×2 (09:38→22:29)
[2021-04-05] MEDS: clonazePAM 0.5 MG TAB PO SCH ×2 (09:38→22:27)
[2021-04-05] MEDS: SENNOSIDES/DOCUSATE SODIUM 8.6/50 MG TAB FEEDTUBE SCH ×2 (09:38→22:27)
[2021-04-05] MEDS: predniSONE 5 MG TAB PO SCH (09:38)
[2021-04-05] MEDS: busPIRone 10 MG TAB PO SCH ×3 (09:40→20:15)
--- NOTE | 2021-04-05 13:28 | Progress Note ---
Assessment and Plan - Patient Problems (1) Respiratory failure Current Visit: Yes Status: Acute Plan to address problem: Patient with long history of severe, oxygen dependent COPD, presented with respiratory failure due to COPD exacerbation. Stable sinus rhythm in the CCU. Continue supportive management and current treatment of COPD exacerbation. 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 No new cardiac events reported. Objective Vital Signs Temp Pulse Pulse Pulse Resp Resp BP 04/05/21 12:00 97.9 F 04/05/21 09:38 125 H 118/66 04/05/21 08:00 98.2 F 94 H 22 129/63 04/05/21 07:57 04/05/21 07:49 80 16 127/57 04/05/21 07:47 81 25 H 04/05/21 07:31 86 22 127/57 04/05/21 07:10 23 04/05/21 07:00 92 H 21 127/57 04/05/21 06:40 21 04/05/21 06:39 102 H 128/68 04/05/21 06:31 100 H 13 128/68 04/05/21 06:00 94 H 21 128/68 04/05/21 05:31 98 H 25 H 132/68 04/05/21 05:05 91 H 04/05/21 05:00 103 H 19 132/68 04/05/21 04:31 83 21 123/59 04/05/21 04:00 98.8 F 86 79 15 123/59 04/05/21 03:31 102 H 18 107/55 04/05/21 03:00 73 18 107/55 04/05/21 02:31 69 16 107/64 04/05/21 02:00 78 11 L 107/64 04/05/21 01:31 95 H 11 L 149/77 04/05/21 01:00 98 H 19 149/77 04/05/21 00:31 87 19 107/57 04/05/21 00:11 88 18 107/57 04/05/21 00:01 79 19 107/57 04/05/21 00:00 98.1 F 04/04/21 23:45 82 04/04/21 23:31 90 20 126/57 04/04/21 23:01 121 H 20 126/57 04/04/21 22:31 98 H 20 137/67 04/04/21 22:00 111 H 28 H 137/67 04/04/21 21:52 81 123/76 04/04/21 21:51 92 H 123/76 04/04/21 21:31 95 H 23 123/76 04/04/21 21:01 87 22 123/76 04/04/21 20:38 23 04/04/21 20:31 109 H 17 133/79 04/04/21 20:17 111 H 17 133/79 04/04/21 20:08 19 04/04/21 20:00 98.4 F 100 H 17 133/79 04/04/21 19:31 110 H 17 116/71 04/04/21 19:01 94 H 19 116/71 04/04/21 18:31 133 H 19 132/76 04/04/21 18:09 97 H 16 132/76 04/04/21 18:06 121 H 132/76 04/04/21 18:00 99 H 15 132/76 04/04/21 17:31 102 H 18 124/81 04/04/21 17:00 90 20 124/81 04/04/21 16:31 93 H 19 138/73 04/04/21 16:01 116 H 17 138/73 04/04/21 16:00 80 82 16 138/73 04/04/21 15:31 100 H 16 150/68 04/04/21 15:00 81 16 150/68 04/04/21 14:31 80 20 139/50 04/04/21 14:01 115 H 17 139/50 04/04/21 13:31 87 16 134/69 Pulse Ox 04/05/21 12:00 04/05/21 09:38 04/05/21 08:00 97 04/05/21 07:57 97 04/05/21 07:49 98 04/05/21 07:47 04/05/21 07:31 97 04/05/21 07:10 04/05/21 07:00 98 04/05/21 06:40 04/05/21 06:39 04/05/21 06:31 100 04/05/21 06:00 100 04/05/21 05:31 100 04/05/21 05:05 04/05/21 05:00 99 04/05/21 04:31 99 04/05/21 04:00 99 04/05/21 03:31 98 04/05/21 03:00 100 04/05/21 02:31 100 04/05/21 02:00 100 04/05/21 01:31 99 04/05/21 01:00 98 04/05/21 00:31 100 04/05/21 00:11 97 04/05/21 00:01 98 04/05/21 00:00 04/04/21 23:45 04/04/21 23:31 97 04/04/21 23:01 95 04/04/21 22:31 98 04/04/21 22:00 99 04/04/21 21:52 04/04/21 21:51 04/04/21 21:31 99 04/04/21 21:01 99 04/04/21 20:38 04/04/21 20:31 97 04/04/21 20:17 97 04/04/21 20:08 04/04/21 20:00 99 04/04/21 19:31 99 04/04/21 19:01 97 04/04/21 18:31 98 04/04/21 18:09 100 04/04/21 18:06 04/04/21 18:00 100 04/04/21 17:31 100 04/04/21 17:00 100 04/04/21 16:31 99 04/04/21 16:01 100 04/04/21 16:00 100 04/04/21 15:31 100 04/04/21 15:00 99 04/04/21 14:31 100 04/04/21 14:01 98 04/04/21 13:31 100 - Physical Examination General: Other (Comfortable in no acute distress) HEENT: Positive: PERRL Neck: Positive: neck supple Cardiac: Positive: Reg Rate and Rhythm Lungs: Positive: Decreased Breath Sounds Neuro: Positive: Grossly Intact Abdomen: Positive: Soft Skin: Positive: Clear Extremities: Absent: edema
--- NOTE | 2021-04-05 14:41 | Progress Note ---
Assessment and Plan 60 y/o female with acute on chronic respiratory failure, SVT and HTN likely all related to anxiety and stress 04/05/21: Will speak with psych. Continue to attempt to convince patient to wear HFNC and Bipap at night. Drop steroids 04/04/21: Saw first hand what patient is likely doing at home. Severe panic attacks. For record, klonopin is what I started her on as an outpatient and she did not tolerate it. I had her on 1 BID and per the patient and she was completely out of it. Need to find the right combo that allows her to be calm and awake and functional. Will drop steroids down tomorrow to 10 daily and monitor for signs of AI. Hold on GI consult for now for peg, spoke with over the phone to update him. Very very guarded to poor prognosis. 04/03/21: Oxygen requirement is acceptable for hospice. Awaiting Lise recs for anxiety control. Ok with increasing Buspar. Hopeful home with hospice as early as today but more reasonable would be tomorrow or . 04/02/21: Patient has verbally expressed that she wants to go home and she wants to go home with home hospice. Patient is already on [facility] palliative service and can transition to hospice. Awaiting to see how much oxygen we are able to provide for patient. She should be able to be weaned to nasal cannula but await to hear back from [facility]. Per [facility] can do 50 liters and 50%. Patient currently on 40 and 50 with sat of 100. Await psych recommendations. 03/30/21: Currently still on bipap. No HFNC units available in the house. Transfused blood on yesterday. But no CBC checked today. Patient states that she is tired and has expressed this to several of the staff. She is currently on [facility] but my plan is to discuss hospice with her and her . Dropping steroids down starting tomorrow. Continue to wean Oxygen as tolerated. If possible keep in either ICU or step down over the weekend. 03/29/21: Currently on bipap. Good volumes and good sats. Still with some mild distress but stable. Will continue bipap therapy for now. Tomorrow will need to place psych consult if able to stay of the vent and weaned from continuous bipap to help us address anxiety and depression. IMS will likely want to transfuse PRBC's. Would give slowly if done. Discussed with [facility] and Bedside nurse, will restart precedex at low dose to help with anxiety. Will alert . 03/28/21: Continue PSV but she isnt ready for extubation today. Not able to tolerates PSV on yesterday so today is first real test. Dropped steroids to daily starting today. UOP is stable, but she is grossly positive. If oxygen requirement increases, check CXR and may need to consider lasix. Continue PSV for as long as possible today but definitely rest overnight. Guarded prognosis. May eventually need trach. 03/27/21: Monitor renal function and urine output closely. Not sure why K continues to be elevated despite daily correction therapy. Attempt PSV off fent but can continue precedex. Will see how patient looks tomorrow but still may not be a candidate for extubation. Drop steroids to daily starting tomorrow. 03/26/21: Continue daily PSV trials. Agree with my partner as I would like anoth er trial of routine extubation before committing to trach. Discussed with family and patient at bedside this am. Continue solumedrol 40q12. IMS restarted buspar. WIll have psych see and evaluate to help with anxiety and depression once extubated. Guarded prognosis. 03/22/21: Please see event note for details. Planned to extubate today and wean steroids. 03/21/21: Echo given continued tachycardia despite adequate oxygenation. Can drop steroids to 40q8. 03/19/21: Continue sedation. Wean FiO2 for sats >88%. consider weaning steroid tomorrow. Follow up RUQ and trend LFT's 1. Wean Versed and place on Diprovan drip 2. Will give Fent 100 IV x1 now and order drip if needed for pain 3. Spoke with over the phone to get more history. Sounds like a panic attack not aborted by xanax therapy. Did check Tylenol level as patient has been in pain from fall 4. Elevated LFT's former drinker but confirms she has not been drinking. Ordered RUQ ultrasound and need to repeat LFT's tomorrow 5. Reviewed cards note, and they do not want to treat tachycardia or elevated bp, likely needs more sedation Guarded prognosis CCT 31 minutes. Subjective Date of service: 04/05/21 Principal diagnosis: Atrial fibrillation with RVR, respiratory failure Interval history: Tolerating HFNC Objective Vital Signs - 12hr 04/05/21 04/05/21 04/05/21 03:00 03:31 04:00 Temperature 98.8 F Pulse Rate 73 102 H 86 Pulse Rate [ Bilateral] Pulse Rate [ 79 From Monitor] Respiratory 18 18 15 Rate Respiratory Rate [Bilateral ] Blood Pressure 107/55 107/55 123/59 O2 Sat by Pulse 100 98 99 Oximetry 04/05/21 04/05/21 04/05/21 04:31 05:00 05:05 Temperature Pulse Rate 83 103 H 91 H Pulse Rate [ Bilateral] Pulse Rate [ From Monitor] Respiratory 21 19 Rate Respiratory Rate [Bilateral ] Blood Pressure 123/59 132/68 O2 Sat by Pulse 99 99 Oximetry 04/05/21 04/05/21 04/05/21 05:31 06:00 06:31 Temperature Pulse Rate 98 H 94 H 100 H Pulse Rate [ Bilateral] Pulse Rate [ From Monitor] Respiratory 25 H 21 13 Rate Respiratory Rate [Bilateral ] Blood Pressure 132/68 128/68 128/68 O2 Sat by Pulse 100 100 100 Oximetry 04/05/21 04/05/21 04/05/21 06:39 06:40 07:00 Temperature Pulse Rate 102 H 92 H Pulse Rate [ Bilateral] Pulse Rate [ From Monitor] Respiratory 21 21 Rate Respiratory Rate [Bilateral ] Blood Pressure 128/68 127/57 O2 Sat by Pulse 98 Oximetry 04/05/21 04/05/21 04/05/21 07:10 07:31 07:47 Temperature Pulse Rate 86 Pulse Rate [ 81 Bilateral] Pulse Rate [ From Monitor] Respiratory 23 22 Rate Respiratory 25 H Rate [Bilateral ] Blood Pressure 127/57 O2 Sat by Pulse 97 Oximetry 04/05/21 04/05/21 04/05/21 07:49 07:57 08:00 Temperature 98.2 F Pulse Rate 80 94 H Pulse Rate [ Bilateral] Pulse Rate [ From Monitor] Respiratory 16 22 Rate Respiratory Rate [Bilateral ] Blood Pressure 127/57 129/63 O2 Sat by Pulse 98 97 97 Oximetry 04/05/21 04/05/21 04/05/21 08:30 09:00 09:30 Temperature Pulse Rate 111 H 108 H 122 H Pulse Rate [ Bilateral] Pulse Rate [ From Monitor] Respiratory 36 H 24 17 Rate Respiratory Rate [Bilateral ] Blood Pressure 129/63 118/66 118/66 O2 Sat by Pulse 92 95 93 Oximetry 04/05/21 04/05/21 04/05/21 09:38 10:00 10:30 Temperature Pulse Rate 125 H 122 H 93 H Pulse Rate [ Bilateral] Pulse Rate [ From Monitor] Respiratory 19 21 Rate Respiratory Rate [Bilateral ] Blood Pressure 118/66 134/76 134/76 O2 Sat by Pulse 92 93 Oximetry 04/05/21 04/05/21 04/05/21 11:00 11:30 12:00 Temperature 97.9 F Pulse Rate 84 95 H 83 Pulse Rate [ Bilateral] Pulse Rate [ From Monitor] Respiratory 21 25 H 25 H Rate Respiratory Rate [Bilateral ] Blood Pressure 120/59 120/59 120/59 O2 Sat by Pulse 93 95 93 Oximetry 04/05/21 04/05/21 04/05/21 12:30 13:00 13:30 Temperature Pulse Rate 90 106 H 91 H Pulse Rate [ Bilateral] Pulse Rate [ From Monitor] Respiratory 26 H 26 H 25 H Rate Respiratory Rate [Bilateral ] Blood Pressure 109/54 109/54 135/70 O2 Sat by Pulse 94 93 95 Oximetry 04/05/21 13:31 Temperature Pulse Rate 92 H Pulse Rate [ Bilateral] Pulse Rate [ From Monitor] Respiratory Rate Respiratory Rate [Bilateral ] Blood Pressure 135/70 O2 Sat by Pulse Oximetry Constitutional: other (moderate distress) Eyes: non-icteric ENT: oropharynx moist Neck: supple Effort: normal Ascultation: Bilateral: diminished breath sounds Cardiovascular: regular rate and rhythm (no mrg) Gastrointestinal: normoactive bowel sounds, soft, non-tender, non-distended Extremities: no cyanosis, no edema, pink and warm Neurologic: normal mental status, non-focal exam, pupils equal and round Psychiatric: mood appropriate, affect normal CBC and BMP: 04/04/21 04:21 04/04/21 04:21 ABG, PT/INR, D-dimer: ABG ABG pH 7.477 (7.320-7.450) H 03/24/21 08:57 POC ABG pCO2 56.9 mmHg (32.0-48.0) H 03/24/21 08:57 ABG pCO2 72.7 mm Hg 03/23/21 04:50 POC ABG pO2 100.6 mmHg (83-108) 03/24/21 08:57 ABG pO2 70.7 mm Hg (80.0-90.0) L 03/23/21 04:50 POC ABG HCO3 41.1 03/24/21 08:57 ABG O2 Saturation 98.3 (0-100) 03/24/21 08:57 PT/INR, D-dimer PT 12.6 Sec. (12.2-14.9) 03/17/21 17:37 INR 0.85 (0.87-1.13) L 03/17/21 17:37 D-Dimer 947.92 ng/mlDDU (0-234) H 03/17/21 17:37 Abnormal lab findings: Abnormal Labs 03/17/21 03/17/21 03/17/21 17:36 17:36 17:37 WBC 13.8 H RBC 3.48 L Hgb 7.0 L Hct 26.2 L MCV 75 L MCH 20 L MCHC 27 L RDW 25.4 H Plt Count Seg Neuts % (Manual) Lymphocytes % (Manual) Monocytes % (Manual) Nucleated RBC % 7.0 H Seg Neutrophils # Man 8.7 H Lymphocytes # (Manual) Monocytes # (Manual) INR 0.85 L APTT 23.3 L D-Dimer 947.92 H ABG pH POC ABG pCO2 POC ABG pO2 ABG pO2 ABG HCO3 ABG O2 Saturation ABG Base Excess ABG Hemoglobin ABG Oxyhemoglobin ABG Potassium ABG Chloride ABG Glucose Oxyhemoglobin Sodium Potassium Chloride 88.2 L Carbon Dioxide 38 H BUN Creatinine Glucose 129 H POC Glucose Lactic Acid Calcium Phosphorus Magnesium AST 177 H ALT 251 H Alkaline Phosphatase Ammonia Troponin T 0.036 H Total Protein 5.9 L Albumin 3.8 L Triglycerides 173 H HDL Cholesterol 73 H Lipase Arterial Blood Glucose Arterial Blood Ionized Calcium Acetaminophen Crossmatch 03/17/21 03/17/21 03/17/21 18:15 18:40 18:40 WBC RBC Hgb Hct MCV MCH MCHC RDW Plt Count Seg Neuts % (Manual) Lymphocytes % (Manual) Monocytes % (Manual) Nucleated RBC % Seg Neutrophils # Man Lymphocytes # (Manual) Monocytes # (Manual) INR APTT D-Dimer ABG pH POC ABG pCO2 POC ABG pO2 ABG pO2 94.4 H ABG HCO3 44.8 H ABG O2 Saturation ABG Base Excess 16.6 H ABG Hemoglobin ABG Oxyhemoglobin ABG Potassium ABG Chloride ABG Glucose Oxyhemoglobin Sodium Potassium Chloride Carbon Dioxide BUN Creatinine Glucose POC Glucose Lactic Acid 4.00 H* Calcium Phosphorus Magnesium AST ALT Alkaline Phosphatase Ammonia 116.0 H Troponin T Total Protein Albumin Triglycerides HDL Cholesterol Lipase Arterial Blood Glucose Arterial Blood Ionized Calcium Acetaminophen Crossmatch 03/17/21 03/18/21 03/18/21 23:36 00:25 23:07 WBC RBC Hgb Hct MCV MCH MCHC RDW Plt Count Seg Neuts % (Manual) Lymphocytes % (Manual) Monocytes % (Manual) Nucleated RBC % Seg Neutrophils # Man Lymphocytes # (Manual) Monocytes # (Manual) INR APTT D-Dimer ABG pH POC ABG pCO2 POC ABG pO2 ABG pO2 68.1 L ABG HCO3 40.2 H ABG O2 Saturation ABG Base Excess 14.4 H ABG Hemoglobin 6.5 L ABG Oxyhemoglobin ABG Potassium ABG Chloride ABG Glucose Oxyhemoglobin Sodium Potassium Chloride Carbon Dioxide BUN Creatinine Glucose POC Glucose Lactic Acid 4.00 H* Calcium Phosphorus Magnesium AST ALT Alkaline Phosphatase Ammonia Troponin T Total Protein Albumin Triglycerides HDL Cholesterol Lipase Arterial Blood Glucose Arterial Blood Ionized Calcium Acetaminophen 5.0 L Crossmatch 03/19/21 03/19/21 03/19/21 00:50 03:25 04:59 WBC RBC 3.43 L Hgb 7.0 L Hct 25.6 L MCV 75 L MCH 20 L MCHC 27 L RDW 25.6 H Plt Count Seg Neuts % (Manual) 91.0 H Lymphocytes % (Manual) Monocytes % (Manual) 9.0 H Nucleated RBC % 3.0 H Seg Neutrophils # Man 9.0 H Lymphocytes # (Manual) 0.0 L Monocytes # (Manual) INR APTT D-Dimer ABG pH 7.531 H POC ABG pCO2 POC ABG pO2 ABG pO2 49.6 L ABG HCO3 31.4 H ABG O2 Saturation 99.6 H ABG Base Excess 8.1 H ABG Hemoglobin 7.2 L ABG Oxyhemoglobin ABG Potassium ABG Chloride ABG Glucose Oxyhemoglobin Sodium Potassium Chloride Carbon Dioxide BUN Creatinine Glucose POC Glucose 127 H Lactic Acid Calcium Phosphorus Magnesium AST ALT Alkaline Phosphatase Ammonia Troponin T Total Protein Albumin Triglycerides HDL Cholesterol Lipase Arterial Blood Glucose Arterial Blood Ionized Calcium Acetaminophen Crossmatch 03/19/21 03/19/21 03/19/21 04:59 10:37 12:00 WBC RBC Hgb Hct MCV MCH MCHC RDW Plt Count Seg Neuts % (Manual) Lymphocytes % (Manual) Monocytes % (Manual) Nucleated RBC % Seg Neutrophils # Man Lymphocytes # (Manual) Monocytes # (Manual) INR APTT D-Dimer ABG pH 7.494 H POC ABG pCO2 POC ABG pO2 ABG pO2 107.3 H ABG HCO3 31.6 H ABG O2 Saturation ABG Base Excess 7.7 H ABG Hemoglobin 7.1 L ABG Oxyhemoglobin ABG Potassium ABG Chloride ABG Glucose Oxyhemoglobin Sodium Potassium Chloride 89.5 L Carbon Dioxide BUN Creatinine Glucose 121 H POC Glucose Lactic Acid Calcium Phosphorus Magnesium AST 359 H ALT 1434 H Alkaline Phosphatase Ammonia Troponin T Total Protein 5.7 L Albumin 3.5 L Triglycerides HDL Cholesterol Lipase Arterial Blood Glucose Arterial Blood Ionized Calcium Acetaminophen Crossmatch 03/19/21 03/19/21 03/19/21 12:05 17:52 23:23 WBC RBC Hgb Hct MCV MCH MCHC RDW Plt Count Seg Neuts % (Manual) Lymphocytes % (Manual) Monocytes % (Manual) Nucleated RBC % Seg Neutrophils # Man Lymphocytes # (Manual) Monocytes # (Manual) INR APTT D-Dimer ABG pH POC ABG pCO2 POC ABG pO2 ABG pO2 ABG HCO3 ABG O2 Saturation ABG Base Excess ABG Hemoglobin ABG Oxyhemoglobin ABG Potassium ABG Chloride ABG Glucose Oxyhemoglobin Sodium Potassium Chloride Carbon Dioxide BUN Creatinine Glucose POC Glucose 122 H 114 H 187 H Lactic Acid Calcium Phosphorus Magnesium AST ALT Alkaline Phosphatase Ammonia Troponin T Total Protein Albumin Triglycerides HDL Cholesterol Lipase Arterial Blood Glucose Arterial Blood Ionized Calcium Acetaminophen Crossmatch 03/19/21 03/20/21 03/20/21 Unknown 03:50 03:57 WBC RBC Hgb Hct MCV MCH MCHC RDW Plt Count Seg Neuts % (Manual) Lymphocytes % (Manual) Monocytes % (Manual) Nucleated RBC % Seg Neutrophils # Man Lymphocytes # (Manual) Monocytes # (Manual) INR APTT D-Dimer ABG pH 7.477 H POC ABG pCO2 POC ABG pO2 ABG pO2 67.9 L ABG HCO3 33.9 H ABG O2 Saturation ABG Base Excess 9.5 H ABG Hemoglobin 6.7 L ABG Oxyhemoglobin ABG Potassium ABG Chloride ABG Glucose Oxyhemoglobin Sodium Potassium Chloride Carbon Dioxide BUN Creatinine Glucose POC Glucose 247 H Lactic Acid Calcium Phosphorus Magnesium AST ALT Alkaline Phosphatase Ammonia Troponin T Total Protein Albumin Triglycerides HDL Cholesterol Lipase 12 L Arterial Blood Glucose Arterial Blood Ionized Calcium Acetaminophen Crossmatch 03/20/21 03/20/21 03/20/21 04:18 04:18 10:16 WBC RBC 3.48 L Hgb 7.0 L Hct 25.3 L MCV 73 L MCH 20 L MCHC 28 L RDW 25.2 H Plt Count 541 H Seg Neuts % (Manual) Lymphocytes % (Manual) Monocytes % (Manual) Nucleated RBC % Seg Neutrophils # Man Lymphocytes # (Manual) Monocytes # (Manual) INR APTT D-Dimer ABG pH POC ABG pCO2 POC ABG pO2 ABG pO2 63.3 L ABG HCO3 34.0 H ABG O2 Saturation 90.0 L ABG Base Excess 7.9 H ABG Hemoglobin 10.5 L ABG Oxyhemoglobin ABG Potassium ABG Chloride ABG Glucose Oxyhemoglobin 88.1 L Sodium Potassium Chloride 91.6 L Carbon Dioxide BUN 22 H Creatinine Glucose 245 H POC Glucose Lactic Acid Calcium Phosphorus Magnesium AST 148 H ALT 1096 H Alkaline Phosphatase 133 H Ammonia Troponin T Total Protein Albumin 3.5 L Triglycerides HDL Cholesterol Lipase Arterial Blood Glucose Arterial Blood Ionized Calcium Acetaminophen Crossmatch 03/20/21 03/20/21 03/21/21 12:05 17:26 00:18 WBC RBC Hgb Hct MCV MCH MCHC RDW Plt Count Seg Neuts % (Manual) Lymphocytes % (Manual) Monocytes % (Manual) Nucleated RBC % Seg Neutrophils # Man Lymphocytes # (Manual) Monocytes # (Manual) INR APTT D-Dimer ABG pH POC ABG pCO2 POC ABG pO2 ABG pO2 ABG HCO3 ABG O2 Saturation ABG Base Excess ABG Hemoglobin ABG Oxyhemoglobin ABG Potassium ABG Chloride ABG Glucose Oxyhemoglobin Sodium Potassium Chloride Carbon Dioxide BUN Creatinine Glucose POC Glucose 226 H 215 H 323 H Lactic Acid Calcium Phosphorus Magnesium AST ALT Alkaline Phosphatase Ammonia Troponin T Total Protein Albumin Triglycerides HDL Cholesterol Lipase Arterial Blood Glucose Arterial Blood Ionized Calcium Acetaminophen Crossmatch 03/21/21 03/21/21 03/21/21 04:00 05:05 09:28 WBC 12.0 H RBC 3.42 L Hgb 6.8 L Hct 25.3 L MCV 74 L MCH 20 L MCHC 27 L RDW 25.1 H Plt Count 650 H Seg Neuts % (Manual) Lymphocytes % (Manual) Monocytes % (Manual) Nucleated RBC % Seg Neutrophils # Man Lymphocytes # (Manual) Monocytes # (Manual) INR APTT D-Dimer ABG pH 7.348 L POC ABG pCO2 POC ABG pO2 ABG pO2 56.3 L ABG HCO3 36.9 H ABG O2 Saturation 83.4 L ABG Base Excess 10.0 H ABG Hemoglobin 7.0 L ABG Oxyhemoglobin ABG Potassium ABG Chloride ABG Glucose Oxyhemoglobin 81.7 L Sodium Potassium Chloride Carbon Dioxide BUN Creatinine Glucose POC Glucose 311 H Lactic Acid Calcium Phosphorus Magnesium AST ALT Alkaline Phosphatase Ammonia Troponin T Total Protein Albumin Triglycerides HDL Cholesterol Lipase Arterial Blood Glucose Arterial Blood Ionized Calcium Acetaminophen Crossmatch 03/21/21 03/21/21 03/21/21 09:28 12:31 14:08 WBC RBC Hgb Hct MCV MCH MCHC RDW Plt Count Seg Neuts % (Manual) Lymphocytes % (Manual) Monocytes % (Manual) Nucleated RBC % Seg Neutrophils # Man Lymphocytes # (Manual) Monocytes # (Manual) INR APTT D-Dimer ABG pH POC ABG pCO2 POC ABG pO2 ABG pO2 ABG HCO3 ABG O2 Saturation ABG Base Excess ABG Hemoglobin ABG Oxyhemoglobin ABG Potassium ABG Chloride ABG Glucose Oxyhemoglobin Sodium Potassium 5.1 H D Chloride 94.4 L Carbon Dioxide 33 H BUN 32 H Creatinine Glucose 319 H POC Glucose 295 H Lactic Acid Calcium Phosphorus Magnesium 2.40 H AST ALT 697 H Alkaline Phosphatase 134 H Ammonia Troponin T Total Protein 5.8 L Albumin 3.4 L Triglycerides HDL Cholesterol Lipase Arterial Blood Glucose Arterial Blood Ionized Calcium Acetaminophen Crossmatch See Detail 03/22/21 03/22/21 03/22/21 00:14 04:30 04:39 WBC RBC Hgb Hct MCV MCH MCHC RDW Plt Count Seg Neuts % (Manual) Lymphocytes % (Manual) Monocytes % (Manual) Nucleated RBC % Seg Neutrophils # Man Lymphocytes # (Manual) Monocytes # (Manual) INR APTT D-Dimer ABG pH 7.310 L POC ABG pCO2 POC ABG pO2 ABG pO2 65.4 L ABG HCO3 38.3 H ABG O2 Saturation 90.8 L ABG Base Excess 10.9 H ABG Hemoglobin 6.4 L ABG Oxyhemoglobin ABG Potassium ABG Chloride ABG Glucose Oxyhemoglobin 88.7 L Sodium Potassium Chloride Carbon Dioxide BUN Creatinine Glucose POC Glucose 326 H Lactic Acid Calcium Phosphorus Magnesium AST ALT Alkaline Phosphatase Ammonia Troponin T Total Protein Albumin Triglycerides 189 H HDL Cholesterol Lipase Arterial Blood Glucose Arterial Blood Ionized Calcium Acetaminophen Crossmatch 03/22/21 03/22/21 03/22/21 04:39 04:39 09:45 WBC 12.8 H RBC 3.34 L Hgb 6.6 L Hct 24.5 L MCV 73 L MCH 20 L MCHC 27 L RDW 25.5 H Plt Count 644 H Seg Neuts % (Manual) Lymphocytes % (Manual) Monocytes % (Manual) Nucleated RBC % Seg Neutrophils # Man Lymphocytes # (Manual) Monocytes # (Manual) INR APTT D-Dimer ABG pH POC ABG pCO2 65.7 H POC ABG pO2 59.7 L ABG pO2 ABG HCO3 ABG O2 Saturation ABG Base Excess ABG Hemoglobin 8.0 L ABG Oxyhemoglobin 86.3 L ABG Potassium 4.7 H ABG Chloride 94.0 L ABG Glucose 208 H Oxyhemoglobin Sodium Potassium 5.3 H Chloride 94.6 L Carbon Dioxide 34 H BUN 33 H Creatinine Glucose 291 H POC Glucose Lactic Acid Calcium Phosphorus Magnesium AST ALT Alkaline Phosphatase Ammonia Troponin T Total Protein Albumin Triglycerides HDL Cholesterol Lipase Arterial Blood Glucose 208 H Arterial Blood Ionized Calcium Acetaminophen Crossmatch 03/22/21 03/22/21 03/23/21 21:33 23:58 04:42 WBC 14.3 H RBC 3.63 L Hgb 7.6 L Hct 27.0 L MCV 74 L MCH 21 L MCHC 28 L RDW 23.1 H Plt Count 567 H Seg Neuts % (Manual) Lymphocytes % (Manual) Monocytes % (Manual) Nucleated RBC % Seg Neutrophils # Man Lymphocytes # (Manual) Monocytes # (Manual) INR APTT D-Dimer ABG pH POC ABG pCO2 POC ABG pO2 ABG pO2 ABG HCO3 ABG O2 Saturation ABG Base Excess ABG Hemoglobin ABG Oxyhemoglobin ABG Potassium ABG Chloride ABG Glucose Oxyhemoglobin Sodium Potassium Chloride Carbon Dioxide BUN Creatinine Glucose POC Glucose 170 H 156 H Lactic Acid Calcium Phosphorus Magnesium AST ALT Alkaline Phosphatase Ammonia Troponin T Total Protein Albumin Triglycerides HDL Cholesterol Lipase Arterial Blood Glucose Arterial Blood Ionized Calcium Acetaminophen Crossmatch 03/23/21 03/23/21 03/23/21 04:42 04:50 22:25 WBC RBC Hgb Hct MCV MCH MCHC RDW Plt Count Seg Neuts % (Manual) Lymphocytes % (Manual) Monocytes % (Manual) Nucleated RBC % Seg Neutrophils # Man Lymphocytes # (Manual) Monocytes # (Manual) INR APTT D-Dimer ABG pH POC ABG pCO2 POC ABG pO2 ABG pO2 70.7 L ABG HCO3 41.7 H ABG O2 Saturation ABG Base Excess 15.2 H ABG Hemoglobin 5.6 L ABG Oxyhemoglobin ABG Potassium ABG Chloride ABG Glucose Oxyhemoglobin Sodium Potassium Chloride 94.6 L Carbon Dioxide 37 H BUN 27 H Creatinine Glucose 311 H POC Glucose 295 H Lactic Acid Calcium Phosphorus Magnesium AST ALT Alkaline Phosphatase Ammonia Troponin T Total Protein Albumin Triglycerides HDL Cholesterol Lipase Arterial Blood Glucose Arterial Blood Ionized Calcium Acetaminophen Crossmatch 03/23/21 03/24/21 03/24/21 23:13 05:13 07:59 WBC RBC Hgb Hct MCV MCH MCHC RDW Plt Count Seg Neuts % (Manual) Lymphocytes % (Manual) Monocytes % (Manual) Nucleated RBC % Seg Neutrophils # Man Lymphocytes # (Manual) Monocytes # (Manual) INR APTT D-Dimer ABG pH POC ABG pCO2 POC ABG pO2 ABG pO2 ABG HCO3 ABG O2 Saturation ABG Base Excess ABG Hemoglobin ABG Oxyhemoglobin ABG Potassium ABG Chloride ABG Glucose Oxyhemoglobin Sodium Potassium Chloride Carbon Dioxide BUN Creatinine Glucose POC Glucose 336 H 303 H 333 H Lactic Acid Calcium Phosphorus Magnesium AST ALT Alkaline Phosphatase Ammonia Troponin T Total Protein Albumin Triglycerides HDL Cholesterol Lipase Arterial Blood Glucose Arterial Blood Ionized Calcium Acetaminophen Crossmatch 03/24/21 03/24/21 03/24/21 08:03 08:03 08:57 WBC 12.7 H RBC 3.48 L Hgb 7.3 L Hct 26.3 L MCV 76 L MCH 21 L MCHC 28 L RDW 24.1 H Plt Count 499 H Seg Neuts % (Manual) Lymphocytes % (Manual) 1.0 L Monocytes % (Manual) 16.0 H Nucleated RBC % 11.0 H Seg Neutrophils # Man 8.1 H Lymphocytes # (Manual) 0.1 L Monocytes # (Manual) 2.1 H INR APTT D-Dimer ABG pH 7.477 H POC ABG pCO2 56.9 H POC ABG pO2 ABG pO2 ABG HCO3 ABG O2 Saturation ABG Base Excess ABG Hemoglobin 8.0 L ABG Oxyhemoglobin ABG Potassium ABG Chloride 93.0 L ABG Glucose 328 H Oxyhemoglobin Sodium Potassium Chloride 94.4 L Carbon Dioxide 38 H BUN 26 H Creatinine 0.5 L Glucose 348 H POC Glucose Lactic Acid Calcium Phosphorus Magnesium AST ALT Alkaline Phosphatase Ammonia Troponin T Total Protein Albumin Triglycerides HDL Cholesterol Lipase Arterial Blood Glucose 328 H Arterial Blood Ionized Calcium 4.5 L Acetaminophen Crossmatch 03/24/21 03/24/21 03/25/21 12:14 17:45 04:00 WBC 15.8 H RBC Hgb 7.5 L Hct 27.4 L MCV 75 L MCH 21 L MCHC 28 L RDW 24.0 H Plt Count 576 H Seg Neuts % (Manual) Lymphocytes % (Manual) Monocytes % (Manual) Nucleated RBC % Seg Neutrophils # Man Lymphocytes # (Manual) Monocytes # (Manual) INR APTT D-Dimer ABG pH POC ABG pCO2 POC ABG pO2 ABG pO2 ABG HCO3 ABG O2 Saturation ABG Base Excess ABG Hemoglobin ABG Oxyhemoglobin ABG Potassium ABG Chloride ABG Glucose Oxyhemoglobin Sodium Potassium Chloride Carbon Dioxide BUN Creatinine Glucose POC Glucose 315 H 324 H Lactic Acid Calcium Phosphorus Magnesium AST ALT Alkaline Phosphatase Ammonia Troponin T Total Protein Albumin Triglycerides HDL Cholesterol Lipase Arterial Blood Glucose Arterial Blood Ionized Calcium Acetaminophen Crossmatch 03/25/21 03/25/21 03/25/21 07:52 16:37 17:38 WBC RBC Hgb Hct MCV MCH MCHC RDW Plt Count Seg Neuts % (Manual) Lymphocytes % (Manual) Monocytes % (Manual) Nucleated RBC % Seg Neutrophils # Man Lymphocytes # (Manual) Monocytes # (Manual) INR APTT D-Dimer ABG pH POC ABG pCO2 POC ABG pO2 ABG pO2 ABG HCO3 ABG O2 Saturation ABG Base Excess ABG Hemoglobin ABG Oxyhemoglobin ABG Potassium ABG Chloride ABG Glucose Oxyhemoglobin Sodium Potassium Chloride 95.9 L Carbon Dioxide 33 H BUN 24 H Creatinine 0.4 L Glucose 289 H POC Glucose 321 H 295 H Lactic Acid Calcium Phosphorus Magnesium AST ALT Alkaline Phosphatase Ammonia Troponin T Total Protein Albumin Triglycerides HDL Cholesterol Lipase Arterial Blood Glucose Arterial Blood Ionized Calcium Acetaminophen Crossmatch 03/25/21 03/26/21 03/26/21 23:27 05:07 05:35 WBC 20.0 H RBC 3.37 L Hgb 7.0 L Hct 25.2 L MCV 75 L MCH 21 L MCHC 28 L RDW 24.0 H Plt Count 544 H Seg Neuts % (Manual) 72.0 H Lymphocytes % (Manual) 6.0 L Monocytes % (Manual) 8.0 H Nucleated RBC % Seg Neutrophils # Man 14.4 H Lymphocytes # (Manual) Monocytes # (Manual) 1.6 H INR APTT D-Dimer ABG pH POC ABG pCO2 POC ABG pO2 ABG pO2 ABG HCO3 ABG O2 Saturation ABG Base Excess ABG Hemoglobin ABG Oxyhemoglobin ABG Potassium ABG Chloride ABG Glucose Oxyhemoglobin Sodium Potassium Chloride Carbon Dioxide BUN Creatinine Glucose POC Glucose 231 H 200 H Lactic Acid Calcium Phosphorus Magnesium AST ALT Alkaline Phosphatase Ammonia Troponin T Total Protein Albumin Triglycerides HDL Cholesterol Lipase Arterial Blood Glucose Arterial Blood Ionized Calcium Acetaminophen Crossmatch 03/26/21 03/26/21 03/26/21 05:35 10:33 12:12 WBC RBC Hgb Hct MCV MCH MCHC RDW Plt Count Seg Neuts % (Manual) Lymphocytes % (Manual) Monocytes % (Manual) Nucleated RBC % Seg Neutrophils # Man Lymphocytes # (Manual) Monocytes # (Manual) INR APTT D-Dimer ABG pH POC ABG pCO2 POC ABG pO2 ABG pO2 ABG HCO3 ABG O2 Saturation ABG Base Excess ABG Hemoglobin ABG Oxyhemoglobin ABG Potassium ABG Chloride ABG Glucose Oxyhemoglobin Sodium Potassium 5.9 H D Chloride 91.9 L Carbon Dioxide 33 H BUN 20 H Creatinine 0.4 L Glucose 197 H POC Glucose 132 H 176 H Lactic Acid Calcium Phosphorus Magnesium AST ALT 169 H Alkaline Phosphatase 138 H Ammonia Troponin T Total Protein 5.5 L Albumin 3.2 L Triglycerides HDL Cholesterol Lipase Arterial Blood Glucose Arterial Blood Ionized Calcium Acetaminophen Crossmatch 03/26/21 03/26/21 03/26/21 16:50 18:06 22:19 WBC RBC Hgb Hct MCV MCH MCHC RDW Plt Count Seg Neuts % (Manual) Lymphocytes % (Manual) Monocytes % (Manual) Nucleated RBC % Seg Neutrophils # Man Lymphocytes # (Manual) Monocytes # (Manual) INR APTT D-Dimer ABG pH POC ABG pCO2 POC ABG pO2 ABG pO2 ABG HCO3 ABG O2 Saturation ABG Base Excess ABG Hemoglobin ABG Oxyhemoglobin ABG Potassium ABG Chloride ABG Glucose Oxyhemoglobin Sodium Potassium 5.2 H Chloride 91.7 L Carbon Dioxide 38 H BUN 19 H Creatinine 0.4 L Glucose 260 H POC Glucose 248 H 168 H Lactic Acid Calcium Phosphorus Magnesium AST ALT Alkaline Phosphatase Ammonia Troponin T Total Protein Albumin Triglycerides HDL Cholesterol Lipase Arterial Blood Glucose Arterial Blood Ionized Calcium Acetaminophen Crossmatch 03/27/21 03/27/21 03/27/21 01:02 01:32 04:15 WBC 21.4 H RBC 3.45 L Hgb 6.9 L Hct 26.2 L MCV 76 L MCH 20 L MCHC 27 L RDW 24.5 H Plt Count 500 H Seg Neuts % (Manual) Lymphocytes % (Manual) Monocytes % (Manual) Nucleated RBC % Seg Neutrophils # Man Lymphocytes # (Manual) Monocytes # (Manual) INR APTT D-Dimer ABG pH POC ABG pCO2 POC ABG pO2 ABG pO2 ABG HCO3 ABG O2 Saturation ABG Base Excess ABG Hemoglobin ABG Oxyhemoglobin ABG Potassium ABG Chloride ABG Glucose Oxyhemoglobin Sodium Potassium Chloride Carbon Dioxide BUN Creatinine Glucose POC Glucose 219 H 221 H Lactic Acid Calcium Phosphorus Magnesium AST ALT Alkaline Phosphatase Ammonia Troponin T Total Protein Albumin Triglycerides HDL Cholesterol Lipase Arterial Blood Glucose Arterial Blood Ionized Calcium Acetaminophen Crossmatch 03/27/21 03/27/21 03/27/21 04:15 06:37 11:21 WBC RBC Hgb Hct MCV MCH MCHC RDW Plt Count Seg Neuts % (Manual) Lymphocytes % (Manual) Monocytes % (Manual) Nucleated RBC % Seg Neutrophils # Man Lymphocytes # (Manual) Monocytes # (Manual) INR APTT D-Dimer ABG pH POC ABG pCO2 POC ABG pO2 ABG pO2 ABG HCO3 ABG O2 Saturation ABG Base Excess ABG Hemoglobin ABG Oxyhemoglobin ABG Potassium ABG Chloride ABG Glucose Oxyhemoglobin Sodium Potassium 5.3 H Chloride 94.4 L Carbon Dioxide 35 H BUN 20 H Creatinine 0.4 L Glucose 310 H POC Glucose 312 H 273 H Lactic Acid Calcium 8.3 L Phosphorus 4.60 H D Magnesium AST ALT Alkaline Phosphatase Ammonia Troponin T Total Protein Albumin Triglycerides HDL Cholesterol Lipase Arterial Blood Glucose Arterial Blood Ionized Calcium Acetaminophen Crossmatch 03/27/21 03/27/21 03/28/21 16:14 21:21 00:16 WBC RBC Hgb Hct MCV MCH MCHC RDW Plt Count Seg Neuts % (Manual) Lymphocytes % (Manual) Monocytes % (Manual) Nucleated RBC % Seg Neutrophils # Man Lymphocytes # (Manual) Monocytes # (Manual) INR APTT D-Dimer ABG pH POC ABG pCO2 POC ABG pO2 ABG pO2 ABG HCO3 ABG O2 Saturation ABG Base Excess ABG Hemoglobin ABG Oxyhemoglobin ABG Potassium ABG Chloride ABG Glucose Oxyhemoglobin Sodium Potassium Chloride Carbon Dioxide BUN Creatinine Glucose POC Glucose 241 H 179 H 160 H Lactic Acid Calcium Phosphorus Magnesium AST ALT Alkaline Phosphatase Ammonia Troponin T Total Protein Albumin Triglycerides HDL Cholesterol Lipase Arterial Blood Glucose Arterial Blood Ionized Calcium Acetaminophen Crossmatch 03/28/21 03/28/21 03/28/21 04:00 04:00 05:41 WBC 27.1 H RBC 3.46 L Hgb 7.1 L Hct 26.1 L MCV 76 L MCH 20 L MCHC 27 L RDW 24.0 H Plt Count 541 H Seg Neuts % (Manual) Lymphocytes % (Manual) Monocytes % (Manual) Nucleated RBC % Seg Neutrophils # Man Lymphocytes # (Manual) Monocytes # (Manual) INR APTT D-Dimer ABG pH POC ABG pCO2 POC ABG pO2 ABG pO2 ABG HCO3 ABG O2 Saturation ABG Base Excess ABG Hemoglobin ABG Oxyhemoglobin ABG Potassium ABG Chloride ABG Glucose Oxyhemoglobin Sodium Potassium Chloride 95.7 L Carbon Dioxide 36 H BUN 23 H Creatinine 0.4 L Glucose 295 H POC Glucose 279 H Lactic Acid Calcium Phosphorus Magnesium AST ALT Alkaline Phosphatase Ammonia Troponin T Total Protein Albumin Triglycerides HDL Cholesterol Lipase Arterial Blood Glucose Arterial Blood Ionized Calcium Acetaminophen Crossmatch 03/28/21 03/28/21 03/28/21 11:50 16:45 23:15 WBC RBC Hgb Hct MCV MCH MCHC RDW Plt Count Seg Neuts % (Manual) Lymphocytes % (Manual) Monocytes % (Manual) Nucleated RBC % Seg Neutrophils # Man Lymphocytes # (Manual) Monocytes # (Manual) INR APTT D-Dimer ABG pH POC ABG pCO2 POC ABG pO2 ABG pO2 ABG HCO3 ABG O2 Saturation ABG Base Excess ABG Hemoglobin ABG Oxyhemoglobin ABG Potassium ABG Chloride ABG Glucose Oxyhemoglobin Sodium Potassium Chloride Carbon Dioxide BUN Creatinine Glucose POC Glucose 233 H 240 H 189 H Lactic Acid Calcium Phosphorus Magnesium AST ALT Alkaline Phosphatase Ammonia Troponin T Total Protein Albumin Triglycerides HDL Cholesterol Lipase Arterial Blood Glucose Arterial Blood Ionized Calcium Acetaminophen Crossmatch 03/29/21 03/29/21 03/29/21 04:35 04:35 05:05 WBC 29.6 H RBC 3.18 L Hgb 6.7 L Hct 24.2 L MCV 76 L MCH 21 L MCHC 28 L RDW 24.0 H Plt Count 678 H Seg Neuts % (Manual) Lymphocytes % (Manual) Monocytes % (Manual) Nucleated RBC % Seg Neutrophils # Man Lymphocytes # (Manual) Monocytes # (Manual) INR APTT D-Dimer ABG pH POC ABG pCO2 POC ABG pO2 ABG pO2 ABG HCO3 ABG O2 Saturation ABG Base Excess ABG Hemoglobin ABG Oxyhemoglobin ABG Potassium ABG Chloride ABG Glucose Oxyhemoglobin Sodium Potassium Chloride 95.4 L Carbon Dioxide 37 H BUN 22 H Creatinine 0.4 L Glucose 194 H POC Glucose 195 H Lactic Acid Calcium Phosphorus Magnesium AST ALT Alkaline Phosphatase Ammonia Troponin T Total Protein Albumin Triglycerides HDL Cholesterol Lipase Arterial Blood Glucose Arterial Blood Ionized Calcium Acetaminophen Crossmatch 03/29/21 03/29/21 03/29/21 09:24 10:58 17:14 WBC RBC Hgb Hct MCV MCH MCHC RDW Plt Count Seg Neuts % (Manual) Lymphocytes % (Manual) Monocytes % (Manual) Nucleated RBC % Seg Neutrophils # Man Lymphocytes # (Manual) Monocytes # (Manual) INR APTT D-Dimer ABG pH POC ABG pCO2 POC ABG pO2 ABG pO2 ABG HCO3 ABG O2 Saturation ABG Base Excess ABG Hemoglobin ABG Oxyhemoglobin ABG Potassium ABG Chloride ABG Glucose Oxyhemoglobin Sodium Potassium Chloride Carbon Dioxide BUN Creatinine Glucose POC Glucose 106 H 117 H Lactic Acid Calcium Phosphorus Magnesium AST ALT Alkaline Phosphatase Ammonia Troponin T Total Protein Albumin Triglycerides HDL Cholesterol Lipase Arterial Blood Glucose Arterial Blood Ionized Calcium Acetaminophen Crossmatch See Detail 03/29/21 03/29/21 03/30/21 19:32 23:36 01:49 WBC 25.1 H RBC Hgb 9.3 L Hct MCV 77 L MCH 23 L MCHC RDW 22.7 H Plt Count 599 H Seg Neuts % (Manual) Lymphocytes % (Manual) Monocytes % (Manual) Nucleated RBC % Seg Neutrophils # Man Lymphocytes # (Manual) Monocytes # (Manual) INR APTT D-Dimer ABG pH POC ABG pCO2 POC ABG pO2 ABG pO2 ABG HCO3 ABG O2 Saturation ABG Base Excess ABG Hemoglobin ABG Oxyhemoglobin ABG Potassium ABG Chloride ABG Glucose Oxyhemoglobin Sodium Potassium Chloride Carbon Dioxide BUN Creatinine Glucose POC Glucose 57 L 55 L Lactic Acid Calcium Phosphorus Magnesium AST ALT Alkaline Phosphatase Ammonia Troponin T Total Protein Albumin Triglycerides HDL Cholesterol Lipase Arterial Blood Glucose Arterial Blood Ionized Calcium Acetaminophen Crossmatch 03/30/21 03/30/21 03/30/21 04:00 15:52 18:07 WBC RBC Hgb Hct MCV MCH MCHC RDW Plt Count Seg Neuts % (Manual) Lymphocytes % (Manual) Monocytes % (Manual) Nucleated RBC % Seg Neutrophils # Man Lymphocytes # (Manual) Monocytes # (Manual) INR APTT D-Dimer ABG pH POC ABG pCO2 POC ABG pO2 ABG pO2 ABG HCO3 ABG O2 Saturation ABG Base Excess ABG Hemoglobin ABG Oxyhemoglobin ABG Potassium ABG Chloride ABG Glucose Oxyhemoglobin Sodium Potassium Chloride 93.4 L Carbon Dioxide 34 H BUN 18 H Creatinine 0.3 L Glucose 114 H POC Glucose 112 H 130 H Lactic Acid Calcium Phosphorus 4.70 H Magnesium AST ALT Alkaline Phosphatase Ammonia Troponin T Total Protein Albumin Triglycerides HDL Cholesterol Lipase Arterial Blood Glucose Arterial Blood Ionized Calcium Acetaminophen Crossmatch 03/30/21 03/31/21 03/31/21 23:26 04:41 04:41 WBC 30.8 H RBC Hgb 9.3 L Hct MCV MCH 23 L MCHC 28 L RDW 22.3 H Plt Count 642 H Seg Neuts % (Manual) Lymphocytes % (Manual) Monocytes % (Manual) Nucleated RBC % Seg Neutrophils # Man Lymphocytes # (Manual) Monocytes # (Manual) INR APTT D-Dimer ABG pH POC ABG pCO2 POC ABG pO2 ABG pO2 ABG HCO3 ABG O2 Saturation ABG Base Excess ABG Hemoglobin ABG Oxyhemoglobin ABG Potassium ABG Chloride ABG Glucose Oxyhemoglobin Sodium Potassium Chloride 96.3 L Carbon Dioxide 34 H BUN Creatinine 0.3 L Glucose POC Glucose 124 H Lactic Acid Calcium Phosphorus Magnesium AST ALT Alkaline Phosphatase Ammonia Troponin T Total Protein Albumin Triglycerides HDL Cholesterol Lipase Arterial Blood Glucose Arterial Blood Ionized Calcium Acetaminophen Crossmatch 03/31/21 04/01/21 04/01/21 17:45 00:17 04:27 WBC 20.2 H RBC Hgb 9.1 L Hct MCV MCH 23 L MCHC 28 L RDW 22.3 H Plt Count 454 H Seg Neuts % (Manual) Lymphocytes % (Manual) Monocytes % (Manual) Nucleated RBC % Seg Neutrophils # Man Lymphocytes # (Manual) Monocytes # (Manual) INR APTT D-Dimer ABG pH POC ABG pCO2 POC ABG pO2 ABG pO2 ABG HCO3 ABG O2 Saturation ABG Base Excess ABG Hemoglobin ABG Oxyhemoglobin ABG Potassium ABG Chloride ABG Glucose Oxyhemoglobin Sodium Potassium Chloride Carbon Dioxide BUN Creatinine Glucose POC Glucose 130 H 108 H Lactic Acid Calcium Phosphorus Magnesium AST ALT Alkaline Phosphatase Ammonia Troponin T Total Protein Albumin Triglycerides HDL Cholesterol Lipase Arterial Blood Glucose Arterial Blood Ionized Calcium Acetaminophen Crossmatch 04/01/21 04/01/21 04/01/21 04:27 11:56 16:19 WBC RBC Hgb Hct MCV MCH MCHC RDW Plt Count Seg Neuts % (Manual) Lymphocytes % (Manual) Monocytes % (Manual) Nucleated RBC % Seg Neutrophils # Man Lymphocytes # (Manual) Monocytes # (Manual) INR APTT D-Dimer ABG pH POC ABG pCO2 POC ABG pO2 ABG pO2 ABG HCO3 ABG O2 Saturation ABG Base Excess ABG Hemoglobin ABG Oxyhemoglobin ABG Potassium ABG Chloride ABG Glucose Oxyhemoglobin Sodium Potassium Chloride Carbon Dioxide 31 H BUN Creatinine 0.4 L Glucose POC Glucose 112 H 172 H Lactic Acid Calcium Phosphorus Magnesium AST ALT Alkaline Phosphatase Ammonia Troponin T Total Protein Albumin Triglycerides HDL Cholesterol Lipase Arterial Blood Glucose Arterial Blood Ionized Calcium Acetaminophen Crossmatch 04/01/21 04/02/21 04/02/21 23:19 04:30 04:30 WBC 17.3 H RBC Hgb 8.7 L Hct 30.1 L MCV MCH 23 L MCHC 29 L RDW 22.4 H Plt Count 521 H Seg Neuts % (Manual) Lymphocytes % (Manual) Monocytes % (Manual) Nucleated RBC % Seg Neutrophils # Man Lymphocytes # (Manual) Monocytes # (Manual) INR APTT D-Dimer ABG pH POC ABG pCO2 POC ABG pO2 ABG pO2 ABG HCO3 ABG O2 Saturation ABG Base Excess ABG Hemoglobin ABG Oxyhemoglobin ABG Potassium ABG Chloride ABG Glucose Oxyhemoglobin Sodium Potassium Chloride Carbon Dioxide 33 H BUN Creatinine 0.4 L Glucose POC Glucose 112 H Lactic Acid Calcium Phosphorus Magnesium AST ALT Alkaline Phosphatase Ammonia Troponin T Total Protein Albumin Triglycerides HDL Cholesterol Lipase Arterial Blood Glucose Arterial Blood Ionized Calcium Acetaminophen Crossmatch 04/02/21 04/03/21 04/03/21 23:32 05:14 15:30 WBC 14.2 H RBC Hgb 9.6 L Hct MCV MCH 23 L MCHC 29 L RDW 23.4 H Plt Count 662 H Seg Neuts % (Manual) Lymphocytes % (Manual) Monocytes % (Manual) Nucleated RBC % Seg Neutrophils # Man Lymphocytes # (Manual) Monocytes # (Manual) INR APTT D-Dimer ABG pH POC ABG pCO2 POC ABG pO2 ABG pO2 ABG HCO3 ABG O2 Saturation ABG Base Excess ABG Hemoglobin ABG Oxyhemoglobin ABG Potassium ABG Chloride ABG Glucose Oxyhemoglobin Sodium Potassium Chloride Carbon Dioxide BUN Creatinine Glucose POC Glucose 112 H 118 H Lactic Acid Calcium Phosphorus Magnesium AST ALT Alkaline Phosphatase Ammonia Troponin T Total Protein Albumin Triglycerides HDL Cholesterol Lipase Arterial Blood Glucose Arterial Blood Ionized Calcium Acetaminophen Crossmatch 04/03/21 04/03/21 04/03/21 15:30 17:29 23:52 WBC RBC Hgb Hct MCV MCH MCHC RDW Plt Count Seg Neuts % (Manual) Lymphocytes % (Manual) Monocytes % (Manual) Nucleated RBC % Seg Neutrophils # Man Lymphocytes # (Manual) Monocytes # (Manual) INR APTT D-Dimer ABG pH POC ABG pCO2 POC ABG pO2 ABG pO2 ABG HCO3 ABG O2 Saturation ABG Base Excess ABG Hemoglobin ABG Oxyhemoglobin ABG Potassium ABG Chloride ABG Glucose Oxyhemoglobin Sodium Potassium Chloride Carbon Dioxide 35 H BUN Creatinine 0.4 L Glucose 163 H POC Glucose 157 H 66 L Lactic Acid Calcium Phosphorus Magnesium AST ALT Alkaline Phosphatase Ammonia Troponin T Total Protein Albumin Triglycerides HDL Cholesterol Lipase Arterial Blood Glucose Arterial Blood Ionized Calcium Acetaminophen Crossmatch 04/04/21 04/04/21 04/04/21 04:21 04:21 05:35 WBC 14.4 H RBC Hgb 9.9 L Hct MCV MCH 24 L MCHC RDW 23.0 H Plt Count 572 H Seg Neuts % (Manual) Lymphocytes % (Manual) Monocytes % (Manual) Nucleated RBC % Seg Neutrophils # Man Lymphocytes # (Manual) Monocytes # (Manual) INR APTT D-Dimer ABG pH POC ABG pCO2 POC ABG pO2 ABG pO2 ABG HCO3 ABG O2 Saturation ABG Base Excess ABG Hemoglobin ABG Oxyhemoglobin ABG Potassium ABG Chloride ABG Glucose Oxyhemoglobin Sodium 146 H Potassium Chloride 96.8 L Carbon Dioxide 35 H BUN Creatinine 0.4 L Glucose 111 H POC Glucose 124 H Lactic Acid Calcium Phosphorus Magnesium AST ALT Alkaline Phosphatase Ammonia Troponin T Total Protein Albumin Triglycerides HDL Cholesterol Lipase Arterial Blood Glucose Arterial Blood Ionized Calcium Acetaminophen Crossmatch 04/04/21 04/04/21 04/04/21 07:34 10:59 16:22 WBC RBC Hgb Hct MCV MCH MCHC RDW Plt Count Seg Neuts % (Manual) Lymphocytes % (Manual) Monocytes % (Manual) Nucleated RBC % Seg Neutrophils # Man Lymphocytes # (Manual) Monocytes # (Manual) INR APTT D-Dimer ABG pH POC ABG pCO2 POC ABG pO2 ABG pO2 ABG HCO3 ABG O2 Saturation ABG Base Excess ABG Hemoglobin ABG Oxyhemoglobin ABG Potassium ABG Chloride ABG Glucose Oxyhemoglobin Sodium Potassium Chloride Carbon Dioxide BUN Creatinine Glucose POC Glucose 116 H 152 H 191 H Lactic Acid Calcium Phosphorus Magnesium AST ALT Alkaline Phosphatase Ammonia Troponin T Total Protein Albumin Triglycerides HDL Cholesterol Lipase Arterial Blood Glucose Arterial Blood Ionized Calcium Acetaminophen Crossmatch 04/05/21 04/05/21 05:48 11:31 WBC RBC Hgb Hct MCV MCH MCHC RDW Plt Count Seg Neuts % (Manual) Lymphocytes % (Manual) Monocytes % (Manual) Nucleated RBC % Seg Neutrophils # Man Lymphocytes # (Manual) Monocytes # (Manual) INR APTT D-Dimer ABG pH POC ABG pCO2 POC ABG pO2 ABG pO2 ABG HCO3 ABG O2 Saturation ABG Base Excess ABG Hemoglobin ABG Oxyhemoglobin ABG Potassium ABG Chloride ABG Glucose Oxyhemoglobin Sodium Potassium Chloride Carbon Dioxide BUN Creatinine Glucose POC Glucose 133 H 167 H Lactic Acid Calcium Phosphorus Magnesium AST ALT Alkaline Phosphatase Ammonia Troponin T Total Protein Albumin Triglycerides HDL Cholesterol Lipase Arterial Blood Glucose Arterial Blood Ionized Calcium Acetaminophen Crossmatch
[2021-04-06] MEDS: INSULIN LISPRO 100 UNIT/ML SUB-Q SCH ×4 (06:40→18:04)
[2021-04-06] MEDS: dilTIAZem 60 MG TAB FEEDTUBE SCH ×3 (06:41→21:36)
[2021-04-06] MEDS: HEPARIN 5,000 UNIT/1 ML VIAL SUB-Q SCH ×3 (06:41→21:36)
[2021-04-06] MEDS: DOCUSATE SODIUM 100 MG/10 ML ORAL LIQD PO SCH ×2 (09:39→21:37)
[2021-04-06] MEDS: METOPROLOL TARTRATE 25 MG TAB PO SCH ×2 (09:39→21:37)
[2021-04-06] MEDS: predniSONE 5 MG TAB PO SCH ×2 (09:39→21:37)
[2021-04-06] MEDS: busPIRone 10 MG TAB PO SCH ×3 (09:40→21:38)
[2021-04-06] MEDS: DULoxetine 30 MG CAP PO SCH (09:40)
[2021-04-06] MEDS: SENNOSIDES/DOCUSATE SODIUM 8.6/50 MG TAB FEEDTUBE SCH ×2 (09:40→21:52)
[2021-04-06] MEDS: FAMOTIDINE 20 MG TAB FEEDTUBE SCH ×2 (09:40→21:37)
[2021-04-06] MEDS: clonazePAM 0.5 MG TAB PO SCH ×2 (09:40→21:37)
[2021-04-06] MEDS: ARFORMOTEROL 15 MCG/2 ML NEBU IH SCH ×2 (10:35→22:21)
[2021-04-06] MEDS: BUDESONIDE 0.5 MG/2 ML NEBU IH SCH ×2 (10:35→22:21)
--- NOTE | 2021-04-06 12:26 | Progress Note ---
Subjective - Reason for Consult Consult date: 04/06/21 Reason for consult: anxiety - Chief Complaint Chief complaint: The patient was seen today. She is awake, calm and cooperative. She is unable to speak due to dobhoff. She waves at me. She nods her head when I ask her has she been having some anxiety issues. She denies SI/HI or hallucinations. Spoke with the nurse caring for the patient. He says the patient has some underlying depression. He says he knows the patient from outpatient clinic. REVIEW OF SYSTEMS Constitutional: Negative for weight loss ENT: Negative for stridor Respiratory: Negative for cough or hemoptysis All other systems reviewed and are negative MENTAL STATUS EXAMINATION Unable to assess Diagnoses: Generalized Anxiety Disorder Treatment Plan: Start Effexor 25mg po daily Patient should be compliant with medications and not to use drugs and not to drink alcohol. PSYCHOTHERAPY: Supportive psychotherapy provided MEDICAL: Per primary team DELIRIUM PRECAUTIONS: Please re-orient patient frequently, keep lights on during the day, and minimize benzodiazepines and opiates as these medications could worsen patient's confusion. 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 Inspector Salvage will provide patient with psychiatric out-patient resources FOLLOW-UP: Will follow Thank you for the consult. Please contact with any questions and/or concerns. Mental Status Exam - Vital signs Last Vital Signs Temp 97.9 F 04/06/21 08:00 Pulse 74 04/06/21 11:00 Resp 17 04/06/21 11:00 BP 134/64 04/06/21 11:00 Pulse Ox 98 04/06/21 11:00
--- NOTE | 2021-04-06 14:08 | Progress Note ---
Assessment and Plan - Patient Problems (1) Respiratory failure Current Visit: Yes Status: Acute Plan to address problem: Patient with long history of severe, oxygen dependent COPD, presented with respiratory failure due to COPD exacerbation. Stable sinus rhythm in the CCU. Continue supportive management and current treatment of COPD exacerbation. Subjective Date of service: 04/06/21 Principal diagnosis: Atrial fibrillation with RVR, respiratory failure Interval history: Patient is awake, currently not on BiPAP, breathing comfortably on room air. No new cardiac events reported. 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 Objective Vital Signs Temp Pulse Pulse Pulse Resp Resp BP 04/06/21 13:44 80 129/74 04/06/21 12:00 98.3 F 04/06/21 11:00 74 17 134/64 04/06/21 10:30 74 20 128/61 04/06/21 10:00 93 H 25 H 128/61 04/06/21 09:39 86 130/68 04/06/21 09:30 91 H 24 130/68 04/06/21 09:00 86 25 H 130/68 04/06/21 08:30 91 H 25 H 136/104 04/06/21 08:00 97.9 F 86 78 76 18 20 136/104 04/06/21 07:30 80 26 H 140/81 04/06/21 07:00 92 H 26 H 140/81 04/06/21 06:41 84 147/69 04/06/21 06:30 90 26 H 147/69 04/06/21 06:00 79 17 147/69 04/06/21 05:30 91 H 23 138/73 04/06/21 05:00 87 25 H 138/73 04/06/21 04:30 90 31 H 135/69 04/06/21 04:00 97.6 F 74 79 21 135/69 04/06/21 03:30 72 19 121/67 04/06/21 03:00 69 19 121/67 04/06/21 02:30 71 18 115/68 04/06/21 02:29 69 20 115/68 04/06/21 02:00 68 13 115/68 04/06/21 01:30 69 18 113/66 04/06/21 01:00 79 17 113/66 04/06/21 00:30 69 19 120/68 04/06/21 00:00 98.8 F 72 79 20 120/68 04/05/21 23:30 79 18 125/68 04/05/21 23:00 84 20 125/68 04/05/21 22:54 94 H 18 130/75 04/05/21 22:30 91 H 18 130/75 04/05/21 22:29 98 H 130/75 04/05/21 22:26 98 H 130/75 04/05/21 22:00 85 17 130/75 04/05/21 21:30 91 H 20 121/74 04/05/21 21:00 86 23 121/74 04/05/21 20:30 83 12 132/69 04/05/21 20:00 98.6 F 84 79 14 132/69 04/05/21 19:45 80 16 04/05/21 19:30 85 23 142/76 04/05/21 19:00 88 21 142/76 04/05/21 18:30 84 24 147/84 04/05/21 18:00 90 16 147/84 04/05/21 17:30 100 H 21 139/77 04/05/21 17:00 86 19 139/77 04/05/21 16:30 85 25 H 151/64 04/05/21 16:00 97.9 F 76 79 18 151/64 04/05/21 15:30 73 21 141/72 04/05/21 15:00 84 24 141/72 04/05/21 14:30 79 41 H 145/70 Pulse Ox 04/06/21 13:44 04/06/21 12:00 04/06/21 11:00 98 04/06/21 10:30 100 04/06/21 10:00 99 04/06/21 09:39 04/06/21 09:30 99 04/06/21 09:00 99 04/06/21 08:30 97 04/06/21 08:00 97 04/06/21 07:30 97 04/06/21 07:00 96 04/06/21 06:41 04/06/21 06:30 97 04/06/21 06:00 97 04/06/21 05:30 95 04/06/21 05:00 95 04/06/21 04:30 96 04/06/21 04:00 96 04/06/21 03:30 97 04/06/21 03:00 97 04/06/21 02:30 97 04/06/21 02:29 97 04/06/21 02:00 97 04/06/21 01:30 96 04/06/21 01:00 98 04/06/21 00:30 99 04/06/21 00:00 99 04/05/21 23:30 99 04/05/21 23:00 96 04/05/21 22:54 97 04/05/21 22:30 97 04/05/21 22:29 04/05/21 22:26 04/05/21 22:00 96 04/05/21 21:30 97 04/05/21 21:00 98 04/05/21 20:30 98 04/05/21 20:00 100 04/05/21 19:45 04/05/21 19:30 98 04/05/21 19:00 99 04/05/21 18:30 97 04/05/21 18:00 98 04/05/21 17:30 94 04/05/21 17:00 96 04/05/21 16:30 96 04/05/21 16:00 98 04/05/21 15:30 95 04/05/21 15:00 93 04/05/21 14:30 93 - Physical Examination General: No Apparent Distress HEENT: Positive: PERRL Neck: Positive: neck supple Cardiac: Positive: Reg Rate and Rhythm Lungs: Positive: Decreased Breath Sounds Neuro: Positive: Grossly Intact Abdomen: Positive: Soft Skin: Positive: Clear Extremities: Absent: edema
--- NOTE | 2021-04-06 14:30 | Progress Note ---
Assessment and Plan Assessment and plan: Interval history: This is a 60-year-old female with COPD with oxygen dependence currently with palliative care, DM, former nicotine abuse, severe anxiety, GERD, HLD, HTN and PAGE presented to emergency department on 03/17 via EMS with complaints of shortness of breath. On arrival of EMS patient was found to be in SVT with a heart rate of about 200 and blood pressure to be quite elevated with systolic in 200s. She was given 6 mg of adenosine without significant changes subsequently given 12 mg of adenosine with improvement of her heart rate. Upon arrival to the emergency department patient was found to be in atrial fibrillation with RVR and dyspneic. Work-up in the emergency department revealed leukocytosis, lactic acidosis, transaminitis, hypoalbuminemia and a troponin leak. CXR, CT a chest and CT head were unremarkable. Patient was admitted to the hospitalist service with consults to [facility] and cardiology for further work-up of acute on chronic respiratory failure, SVT and hypertensive urgency. Hospital Course to date: 03/18/2021: Patient is intubated and on vent support, Patient is in sinus tachycardia 03/19: COVID-19 PCR negative, remains on ventilatory support, Versed drip changed to propofol. No acute events reported overnight. Tracheal aspirate w ith few gram-positive Cocci. This afternoon, patient went in to the 150s, giving 500 mL NS bolus and fentanyl push to see if it pain related. If persists then will order prn Ativan per Dr. Gage recommendation. 03/20: Restarted on home metoprolol and abdominal ultrasound showed right hydronephrosis. Abd US shows right hydroureteronephrosis and will obtain a dedicated renal US. She seems to more comfortable on propofol and fentanyl 03/21: Patient's FiO2 had to be decreased overnight due to hypoxia and tachycardia. Hyperkalemia noted and given Kayexalate. 1 unit PRBC for hemoglobin 6.8. [facility] plans to extubate tomorrow. Increase in Lantus. 03/22: Transfuse one unit prbc, failed SBT in the AM d/t hypertension. [facility] extubated the patient but she was reintubated within [address] head ordered and pending read. Given kionex x2 for hyperkalemia 03/23: This morning patient was only on Precedex drip and overnight she had agitation, hypertension and tachycardia. RN instructed to place fentanyl drip. Increase in Lantus for better glucose control. Will remove Wallis today. 03/24/2021: no acute events reported overnight. Patient remains intubated and is currently on fentanyl and Precedex. Increase in Lantus due to hyperglycemia. 03/25: no acute events overnight. increase in lantus and decreased steroids today. 04/02: Bipap q hs and optiflow in the AM, remains on precedex. Psych consulted today. 04/03: Patient failed swallow evaluation today and ST recommended PEG tube placement. NG tube was replaced yesterday and tube feeds changed to cyclic feedings today given she was BiPAP overnight. Psych consulted. Likely DC tomorrow or . 04/04: Patient has long standing anxiety history. Needs medication optimization. May uptitrate buspar. PCCM stated that patient did not tolerate klonopin as an OP. Currently working to taper steroids. No GI consult at this time for PEG as PCCM d/w . Will continue to work with CM for hospice placement. 04/05: Klonopin unfortunately not effective in this patient. Awaiting psych input/eval for today. Will continue to work towards hospice placement with CM. 04/06: On hi flow 35/50. comfortable on my encounter. Effexor added by psychiatry. Will work towards hospice placement with CM. Assessment and plan: Neuro: Hepatic/metabolic encephalopathy, h/o severe anxiety, depression -Admit ammonia 116, 03/09 ammonia 26 -Precedex gtt -xanax, ativan, haldol and morphine prn -Buspar increased dose today on hopes to wean of precedex; home cymbalta on hold (cannot crush) -Psych consulted, started on effexor 25 mg po daily - on buspar -Avoid delirium -Maintain sleep-wake cycle -SAT when appropriate -CT head on admit with no acute findings -Repeat CT head d/t AMS-> no acute changes Cardio: Hypertensive emergency (resolved), s/p A. fib with RVR and SVT, h/o HTN, HLD -s/p X2 doses of adenosine in the ED -Cardiology consulted, appreciate recommendations -PO metoprolol BID -Resume home statin -Blood pressure monitoring per protocol -Echocardiogram 10/2020 showed EF of 50 to 55%, mild diastolic dysfunction, trace to mild tricuspid regurgitation, mild pulmonary hypertension, RVSP 45 mmHg Resp : Acute on chronic respiratory failure, h/o COPD and PAGE -CCM consulted, appreciate recommendations -CTA chest shows no CT evidence of pulmonary embolism, small right and trace left pleural effusion, upper lobe predominant emphysema -Intubated on 03/17 with 7.00 ETT at 20 at the lips and extubated 03/22 but reintubated shortly after; Self-extubated on 03/29 -weaned to BiPAP q hs, Optiflow in AM -VAP bundle -SPO2 monitoring -Methylprednisone weaning-> PO will be slow wean -nebs per [facility] GI: Transaminitis (resolving), h/o chronic constipation -NTR consulted, appreciate recommendations -RUQ US shows right hydroureteronephrosis and possible gallbladder sludge or gallstones -Renal ultrasound shows mild right-sided hydronephrosis with parenchymal thinning and trace perinephric fluid. -need to follow up outpatient -PPI -BR: senakot S and colace, prn mom -BM 04/01 -24 hours +1632 mL -Failed bedside swallow eval -NGT reinserted and TF changed to cyclic; ST recommends PEG : Mild right hydroureteronephrosis -Trend BMP -FWF with TF -stop D51/2 NS when TF resumed -Strict I & Os -Wallis -Renal ultrasound shows mild right-sided hydronephrosis with parenchymal thinning and trace perinephric fluid. Endo: h/o DM -Avoid hypoglycemia -SSI -Accucheck q 6hrs -Lantus -titrate as needed Heme: Anemia, Leukocytosis, h/o Microcytic anemia -Trend CBC -Transfuse for hbg <7 -s/p 2 unit PRBCs -SCDs to BLE while in bed -Lovenox subq ID: Gram positive cocci in tracheal aspirate -02/25 tracheal aspirate with few gram-positive cocci -s/p Levaquin (03/18-) -Trend WBC and fever curve -Repeat blood cultures and sputum culture NGTD -Trend WBC and fever curve The high probability of a clinically significant, sudden or life threatening deterioration of the [pulm/cv] system(s) required my full and direct attention, intervention and personal management. The aggregate critical care time was [60] minutes. This time is in addition to time spent performing reported procedures but includes the following: [x] Data Review and interpretation [x] Patient assessment and monitoring of vital signs [x] Documentation [x] Medication orders and management Disposition Plan: IMCU Total Time Spent with Patient (Minutes): 60 History Interval history: No overnight events. Resting comfortably on encounter. Hospitalist Physical - Physical exam Narrative exam: General appearance: Present: no acute distress, obese - EENT Eyes: Present: PERRL, EOM intact ENT: hearing intact, clear oral mucosa, dentition normal - Neck Neck: Present: normal ROM - Respiratory Respiratory effort: normal Respiratory: bilateral: diminished - Cardiovascular Rhythm: regular Heart Sounds: Present: S1 & S2. Absent: systolic murmur, diastolic murmur - Extremities Extremities: no ischemia, pulses intact, pulses symmetrical, normal temperature, normal color Peripheral Pulses: within normal limits - Abdominal General gastrointestinal: soft, non-tender, non-distended, normal bowel sounds - Integumentary Integumentary: Present: warm, dry - Psychiatric Psychiatric: cooperative, agitated - Neurologic Neurologic: CNII-XII intact, no focal deficits, moves all extremities - Constitutional Vitals: Temp Pulse Resp BP Pulse Ox 98.3 F 80 17 129/74 98 04/06/21 12:00 04/06/21 13:44 04/06/21 11:00 04/06/21 13:44 04/06/21 11:00 General appearance: Present: no acute distress, obese HEART Score - HEART Score Troponin: Troponin T < 0.010 ng/mL (0.00-0.029) 03/29/21 09:24 Results - Labs CBC & Chem 7: 04/04/21 04:21 04/04/21 04:21 Labs: Laboratory Last Values WBC 14.4 K/mm3 (4.5-11.0) H 04/04/21 04:21 RBC 4.13 M/mm3 (3.65-5.03) 04/04/21 04:21 Hgb 9.9 gm/dl (10.1-14.3) L 04/04/21 04:21 Hct 33.2 % (30.3-42.9) 04/04/21 04:21 MCV 80 fl (79-97) 04/04/21 04:21 MCH 24 pg (28-32) L 04/04/21 04:21 MCHC 30 % (30-34) 04/04/21 04:21 RDW 23.0 % (13.2-15.2) H 04/04/21 04:21 Plt Count 572 K/mm3 (140-440) H 04/04/21 04:21 [place] % (Auto) Medical Consultant 03/24/21 08:03 Add Manual Diff Complete 03/26/21 05:35 Total Counted 100 03/26/21 05:35 Seg Neuts % (Manual) 72.0 % (40.0-70.0) H 03/26/21 05:35 Band Neutrophils % 5.0 % 03/26/21 05:35 Lymphocytes % (Manual) 6.0 % (13.4-35.0) L 03/26/21 05:35 Reactive Lymphs % (Man) 5.0 % 03/19/21 04:59 Monocytes % (Manual) 8.0 % (0.0-7.3) H 03/26/21 05:35 Metamyelocytes % 3.0 % 03/26/21 05:35 Myelocytes % 5.0 % 03/26/21 05:35 Promyelocytes % 1.0 % 03/26/21 05:35 Nucleated RBC % Not Reportable 03/26/21 05:35 Seg Neutrophils # Man 14.4 K/mm3 (1.8-7.7) H 03/26/21 05:35 Band Neutrophils # 1.0 K/mm3 03/26/21 05:35 Lymphocytes # (Manual) 1.2 K/mm3 (1.2-5.4) 03/26/21 05:35 Abs React Lymphs (Man) 0.0 K/mm3 03/26/21 05:35 Monocytes # (Manual) 1.6 K/mm3 (0.0-0.8) H 03/26/21 05:35 Eosinophils # (Manual) 0.0 K/mm3 (0.0-0.4) 03/26/21 05:35 Basophils # (Manual) 0.0 K/mm3 (0.0-0.1) 03/26/21 05:35 Metamyelocytes # 0.6 K/mm3 03/26/21 05:35 Myelocytes # 1.0 K/mm3 03/26/21 05:35 Promyelocytes # 0.2 K/mm3 03/26/21 05:35 Blast Cells # 0.0 K/mm3 03/26/21 05:35 WBC Morphology Not Reportable 03/26/21 05:35 Hypersegmented Neuts Not Reportable 03/26/21 05:35 Hyposegmented Neuts Not Reportable 03/26/21 05:35 Hypogranular Neuts Not Reportable 03/26/21 05:35 Smudge Cells Not Reportable 03/26/21 05:35 Toxic Granulation Not Reportable 03/26/21 05:35 Toxic Vacuolation Not Reportable 03/26/21 05:35 Dohle Bodies Not Reportable 03/26/21 05:35 Pelger-Huet Anomaly Not Reportable 03/26/21 05:35 Florentino Rods Not Reportable 03/26/21 05:35 Platelet Estimate Consistent w auto 03/26/21 05:35 Clumped Platelets Not Reportable 03/26/21 05:35 Plt Clumps, EDTA Not Reportable 03/26/21 05:35 Large Platelets 1+ 03/26/21 05:35 Giant Platelets Not Reportable 03/26/21 05:35 Platelet Satelliting Not Reportable 03/26/21 05:35 Plt Morphology Comment Not Reportable 03/26/21 05:35 RBC Morphology Not Reportable 03/26/21 05:35 Dimorphic RBCs Not Reportable 03/26/21 05:35 Polychromasia 1+ 03/26/21 05:35 Hypochromasia 2+ 03/26/21 05:35 Poikilocytosis 1+ 03/26/21 05:35 Anisocytosis 2+ 03/26/21 05:35 Microcytosis Not Reportable 03/26/21 05:35 Macrocytosis Not Reportable 03/26/21 05:35 Spherocytes Not Reportable 03/26/21 05:35 Pappenheimer Bodies Not Reportable 03/26/21 05:35 Sickle Cells Not Reportable 03/26/21 05:35 Target Cells 1+ 03/26/21 05:35 Tear Drop Cells 1+ 03/26/21 05:35 Ovalocytes Not Reportable 03/26/21 05:35 Stomatocytes 1+ 03/26/21 05:35 Helmet Cells Not Reportable 03/26/21 05:35 Mabry-Whitlock Bodies Not Reportable 03/26/21 05:35 [place] Rings Not Reportable 03/26/21 05:35 Marcelo Cells Not Reportable 03/26/21 05:35 Bite Cells Not Reportable 03/26/21 05:35 Crenated Cell Not Reportable 03/26/21 05:35 Elliptocytes Not Reportable 03/26/21 05:35 Acanthocytes (Spur) Not Reportable 03/26/21 05:35 Rouleaux Not Reportable 03/26/21 05:35 Hemoglobin C Crystals Not Reportable 03/26/21 05:35 Schistocytes 1+ 03/26/21 05:35 Malaria parasites Not Reportable 03/26/21 05:35 Maykel Bodies Not Reportable 03/26/21 05:35 Hem Pathologist Commnt No 03/26/21 05:35 PT 12.6 Sec. (12.2-14.9) 03/17/21 17:37 INR 0.85 (0.87-1.13) L 03/17/21 17:37 APTT 23.3 Sec. (24.2-36.6) L 03/17/21 17:37 D-Dimer 947.92 ng/mlDDU (0-234) H 03/17/21 17:37 ABG pH 7.477 (7.320-7.450) H 03/24/21 08:57 POC ABG pCO2 56.9 mmHg (32.0-48.0) H 03/24/21 08:57 ABG pCO2 72.7 mm Hg 03/23/21 04:50 POC ABG pO2 100.6 mmHg (83-108) 03/24/21 08:57 ABG pO2 70.7 mm Hg (80.0-90.0) L 03/23/21 04:50 POC ABG HCO3 41.1 03/24/21 08:57 ABG HCO3 41.7 mmol/L (20.0-26.0) H 03/23/21 04:50 ABG O2 Saturation 98.3 (0-100) 03/24/21 08:57 ABG O2 Content 7.8 (0.0-44) 03/23/21 04:50 POC ABG Base Excess 15.8 03/24/21 08:57 ABG Base Excess 15.2 mmol/L (-2.0-3.0) H 03/23/21 04:50 ABG Hemoglobin 8.0 (12.0-17.5) L 03/24/21 08:57 ABG Oxyhemoglobin 96.8 (94-98) 03/24/21 08:57 ABG Carboxyhemoglobin 1.7 % (0.0-5.0) 03/23/21 04:50 ABG Methemoglobin 0.3 (0.0-1.5) 03/24/21 08:57 ABG Sodium 139.1 mmol/L (136.0-145.0) 03/24/21 08:57 ABG Potassium 3.9 mmol/L (3.40-4.50) 03/24/21 08:57 ABG Chloride 93.0 mmol/L (98-107) L 03/24/21 08:57 ABG Glucose 328 mg/dL (65-95) H 03/24/21 08:57 Oxyhemoglobin 96.9 % (95.0-99.0) 03/23/21 04:50 Carboxyhemoglobin 1.2 (0.5-1.5) 03/24/21 08:57 FiO2 40 % 03/23/21 04:50 FiO2 % 40 03/24/21 08:57 Sodium 146 mmol/L (137-145) H 04/04/21 04:21 Potassium 4.1 mmol/L (3.6-5.0) 04/04/21 04:21 Chloride 96.8 mmol/L (98-107) L 04/04/21 04:21 Carbon Dioxide 35 mmol/L (22-30) H 04/04/21 04:21 Anion Gap 18 mmol/L 04/04/21 04:21 BUN 9 mg/dL (7-17) 04/04/21 04:21 Creatinine 0.4 mg/dL (0.6-1.2) L 04/04/21 04:21 Estimated GFR > 60 ml/min 04/04/21 04:21 BUN/Creatinine Ratio 23 % 04/04/21 04:21 Glucose 111 mg/dL (65-100) H 04/04/21 04:21 POC Glucose 165 mg/dL (70-105) H 04/06/21 11:35 Lactic Acid 4.00 mmol/L (0.7-2.0) H* 03/17/21 23:36 Calcium 9.5 mg/dL (8.4-10.2) 04/04/21 04:21 Phosphorus 4.50 mg/dL (2.5-4.5) 03/31/21 04:41 Magnesium 2.20 mg/dL (1.7-2.3) 03/31/21 04:41 Total Bilirubin 0.30 mg/dL (0.1-1.2) 03/26/21 05:35 Direct Bilirubin < 0.2 mg/dL (0-0.2) 03/19/21 12:00 Indirect Bilirubin 0.1 mg/dL 03/19/21 12:00 AST 35 units/L (5-40) 03/26/21 05:35 ALT 169 units/L (7-56) H 03/26/21 05:35 Alkaline Phosphatase 138 units/L (35-129) H 03/26/21 05:35 Ammonia 26.0 umol/L (25-60) 03/19/21 12:00 Total Creatine Kinase 123 units/L (30-135) 03/29/21 09:24 CK-MB (CK-2) 1.5 ng/mL (0.0-4.0) 03/29/21 09:24 CK-MB (CK-2) Rel Index 1.2 (0-4) 03/29/21 09:24 Troponin T < 0.010 ng/mL (0.00-0.029) 03/29/21 09:24 NT-Pro-B Natriuret Pep 576.0 pg/mL (0-900) 03/17/21 17:36 Total Protein 5.5 g/dL (6.3-8.2) L 03/26/21 05:35 Albumin 3.2 g/dL (3.9-5) L 03/26/21 05:35 Albumin/Globulin Ratio 1.4 % 03/26/21 05:35 Triglycerides 189 mg/dL (2-149) H 03/22/21 04:39 Cholesterol 191 mg/dL (50-199) 03/17/21 17:36 LDL Cholesterol Direct 80 mg/dL (50-130) 03/17/21 17:36 HDL Cholesterol 73 mg/dL (40-59) H 03/17/21 17:36 Cholesterol/HDL Ratio 2.61 % 03/17/21 17:36 Amylase 78 units/L (27-131) 03/19/21 Unknown Lipase 12 units/L (13-60) L 03/19/21 Unknown TSH 3.510 mlU/mL (0.270-4.200) 03/17/21 22:57 Arterial Blood Glucose 328 mg/dL (65-95) H 03/24/21 08:57 Arterial Blood Ionized Calcium 4.5 mg/dL (4.6-5.3) L 03/24/21 08:57 Urine Color [place]uri (Yellow) 03/17/21 19:42 Urine Turbidity Slightly-cloudy (Clear) 03/17/21 19:42 Urine pH 7.0 (5.0-7.0) 03/17/21 19:42 Ur Specific [place] 1.015 (1.003-1.030) 03/17/21 19:42 Urine Protein 100 mg/dl mg/dL (Negative) 03/17/21 19:42 Urine Glucose (UA) Neg mg/dL (Negative) 03/17/21 19:42 Urine Ketones 20 mg/dL (Negative) 03/17/21 19:42 Urine Blood Sm (Negative) 03/17/21 19:42 Urine Nitrite Neg (Negative) 03/17/21 19:42 Urine Bilirubin Neg (Negative) 03/17/21 19:42 Urine Urobilinogen 2.0 mg/dL (<2.0) 03/17/21 19:42 Ur Leukocyte Esterase Neg (Negative) 03/17/21 19:42 Urine WBC (Auto) 4.0 /HPF (0.0-6.0) 03/17/21 19:42 Urine RBC (Auto) 6.0 /HPF (0.0-6.0) 03/17/21 19:42 U Epithel Cells (Auto) 5.0 /HPF (0-13.0) 03/17/21 19:42 Urine Bacteria (Auto) 1+ /HPF (Negative) 03/17/21 19:42 Urine Mucus 1+ /HPF 03/17/21 19:42 Urine Yeast (Budding) Few /HPF 03/17/21 19:42 Acetaminophen 5.0 ug/mL (10.0-30.0) L 03/18/21 23:07 Coronavirus (PCR) Negative (Negative) 03/19/21 Unknown Blood Type A POSITIVE 03/29/21 09:24 Antibody Screen Negative 03/29/21 09:24 Crossmatch See Detail 03/29/21 09:24 Wallis/IV: Voiding Method External Female Catheter Active Medications - Current Medications Current Medications: Generic Name Dose Route Start Last Admin Trade Name Freq PRN Reason Stop Dose Admin Acetaminophen 650 mg 03/18/21 00:05 04/04/21 06:20 Acetaminophen 325 Mg Tab PO 650 mg Q6H PRN Administration Pain MILD(1-3)/Fever >100.5/TOVAR Albuterol 2.5 mg 03/22/21 08:00 04/03/21 15:40 Albuterol 2.5 Mg/3 Ml Nebu IH 2.5 mg Q6H PRN Administration Wheezing Alprazolam 1 mg 03/26/21 10:53 04/05/21 06:40 Alprazolam 1 Mg Tab PO 1 mg Q8H PRN Administration AGITATION Arformoterol Tartrate 15 mcg 03/24/21 11:00 04/06/21 10:35 Arformoterol 15 Mcg/2 Ml Nebu IH 15 mcg Q12HRT BUTCH Administration Atorvastatin Calcium 10 mg 03/19/21 22:00 04/05/21 22:29 Atorvastatin 10 Mg Tab PO 10 mg QHS BUTCH Administration Budesonide 0.5 mg 03/24/21 11:00 04/06/21 10:35 Budesonide 0.5 Mg/2 Ml Nebu IH 0.5 mg Q12HRT BUTCH Administration Buspirone HCl 30 mg 04/04/21 16:00 04/06/21 13:44 Buspirone 10 Mg Tab PO 30 mg TID BUTCH Administration Clonazepam 0.5 mg 04/03/21 15:00 04/06/21 09:40 Clonazepam 0.5 Mg Tab PO 0.5 mg BID BUTCH Administration Dextrose 0 ml 03/17/21 23:58 03/31/21 05:16 Dextrose 50% In Water (25gm) 50 Ml Syringe IV 10 ml Q30MIN PRN Administration Hypoglycemia Protocol Diltiazem HCl 60 mg 04/04/21 18:00 04/06/21 13:44 Diltiazem 60 Mg Tab FEEDTUBE 60 mg Q8HR BUTCH Administration Docusate Sodium 100 mg 03/23/21 10:00 04/06/21 09:39 Docusate Sodium 100 Mg/10 Ml Oral Liqd PO 100 mg BID BUTCH Administration Duloxetine HCl 30 mg 04/05/21 10:00 04/06/21 09:40 Duloxetine 30 Mg Cap PO 30 mg QDAY BUTCH Administration Famotidine 20 mg 03/20/21 22:00 04/06/21 09:40 Famotidine 20 Mg Tab FEEDTUBE 20 mg BID BUTCH Administration Haloperidol Lactate 5 mg 03/30/21 09:52 04/01/21 08:33 Haloperidol Lactate 5 Mg/1 Ml Inj IV 5 mg Q6H PRN Administration Agitation Heparin Sodium (Porcine) 5,000 unit 03/18/21 06:00 04/06/21 13:44 Heparin 5,000 Unit/1 Ml Vial SUB-Q 5,000 unit Q8HR BUTCH Administration Hydralazine HCl 5 mg 03/29/21 10:56 Hydralazine 20 Mg/1 Ml Inj IV Q4HR PRN SBP >160 Hydrophilic Ointment 1 applic 03/17/21 17:35 Lip Therapy Vaseline TP Q2HR PRN Dry Lips Insulin Human Lispro 0 unit 03/19/21 12:00 04/06/21 12:08 Insulin Lispro 100 Unit/Ml SUB-Q 3 unit Q6HR BUTCH Administration Protocol Lorazepam 0.5 mg 03/30/21 09:53 04/04/21 20:08 Lorazepam 2 Mg/Ml Vial IV 0.5 mg Q4H PRN Administration Anxiety Magnesium Hydroxide 30 ml 03/18/21 00:05 03/24/21 09:36 Magnesium Hydroxide (Mom) Oral Liqd Udc PO 30 ml Q4H PRN Administration Constipation Metoprolol Tartrate 25 mg 03/20/21 22:00 04/06/21 09:39 Metoprolol Tartrate 25 Mg Tab PO 25 mg BID BUTCH Administration Morphine Sulfate 2 mg 03/18/21 00:05 04/05/21 06:40 Morphine 2 Mg/1 Ml Inj IV 2 mg Q4H PRN Administration Pain, Moderate (4-6) Morphine Sulfate 4 mg 03/18/21 00:05 04/03/21 17:21 Morphine 4 Mg/1 Ml Inj IV 4 mg Q4H PRN Administration Pain , Severe (7-10) Multi-Ingred Cream/Lotion/Oil/Oint 1 applic 03/17/21 17:35 Mineral Oil/Petrolatum, White Ophth Oint 3.5 Gm OU Q4HR PRN Dry Eye(s) Prednisone 15 mg 04/03/21 10:00 04/06/21 09:39 Prednisone 5 Mg Tab PO 15 mg QDAY BUTCH Administration Senna/Docusate Sodium 1 tab 03/17/21 22:00 04/06/21 09:40 Sennosides/Docusate Sodium 8.6/50 Mg Tab FEEDTUBE 1 tab BID BUTCH Administration Simple Syrup 15 ml 03/19/21 18:16 04/04/21 22:02 Simple Syrup 15 Ml FEEDTUBE 15 ml PRN PRN Administration Hypoglycemia Simple Syrup 30 ml 03/19/21 18:16 Simple Syrup 15 Ml FEEDTUBE PRN PRN Hypoglycemia Sodium Chloride 10 ml 03/18/21 10:00 04/06/21 09:40 Sodium Chloride 0.9% 10 Ml Flush Syringe IV 10 ml BID BUTCH Administration Sodium Chloride 10 ml 03/17/21 23:58 03/22/21 23:20 Sodium Chloride 0.9% 10 Ml Flush Syringe IV 10 ml PRN PRN Administration LINE FLUSH Venlafaxine HCl 25 mg 04/06/21 13:00 Venlafaxine 25 Mg Tab PO QDAY BUTCH Nutrition/Malnutrition Assess - Dietary Evaluation Nutrition/Malnutrition Findings: Nutrition Notes Start: 03/18/21 09:46 Freq: Status: Active Protocol: Document 04/05/21 18:19 PAM (Rec: 04/05/21 18:26 PAM [email or web address]) Nutrition Notes Initial or Follow up Brief Note Current Diet Cyclic 12 hr TF-Vital AF 1.2 Brenden @ 88 ml/hr (since D 04/03) . Height 5 ft 6 in Weight 82.8 kg [place] Body Weight (kg) 59.09 BMI 29.5 Weight change and time frame No body weight change reported . Weight Status Overweight Subjective/Other Information RD consult for routine F/U on TF continuation. TF continues Cyclic as prescribed, therefore, well tolerated. Percent of energy/protein needs met: Prescribed Vital AF 1.2 Brenden @ 88 ml/hr provides for energy/ protein needs (1,260 Kcal/79 g ) during LOS, 75% Kcal; 80% AA . #1 Nutrition Diagnosis Inadequate oral intake Comments: Cycle mode well tolerated. Diagnosis Progress(for reassessment Improved documentation) Nutrition Intervention Nutrition Support: Vital AF 1.2 Brenden @ 88 ml/hr. Flush: 140 ml water Q 4 hr. Kcal 1,260 Protein (gm) 79 Carbohydrates (gm) 116 Fat (gm) 57 Fluid (mL) 852 Fiber (gm) 5 % RDI: 75% Kcal; 80% AA. Goal #1 Provide at least 75% of energy /protein needs through Enteral Feeding during LOS. Follow-Up By: 04/12/21 Additional Comments Continue monitoring TF tolerance, and BM.
--- NOTE | 2021-04-06 17:35 | Progress Note ---
Assessment and Plan 60 y/o female with acute on chronic respiratory failure, SVT and HTN likely all related to anxiety and stress 04/06/21 PSych to readdress meds. Tolerated the HFNC all day. Will attempt transfer to telemetry floor. 04/05/21: Will speak with psych. Continue to attempt to convince patient to wear HFNC and Bipap at night. Drop steroids 04/04/21: Saw first hand what patient is likely doing at home. Severe panic attacks. For record, klonopin is what I started her on as an outpatient and she did not tolerate it. I had her on 1 BID and per the patient and she was completely out of it. Need to find the right combo that allows her to be calm and awake and functional. Will drop steroids down tomorrow to 10 daily and monitor for signs of AI. Hold on GI consult for now for peg, spoke with over the phone to update him. Very very guarded to poor prognosis. 04/03/21: Oxygen requirement is acceptable for hospice. Awaiting Pygreg recs for anxiety control. Ok with increasing Buspar. Hopeful home with hospice as early as today but more reasonable would be tomorrow or . 04/02/21: Patient has verbally expressed that she wants to go home and she wants to go home with home hospice. Patient is already on [facility] palliative service and can transition to hospice. Awaiting to see how much oxygen we are able to provide for patient. She should be able to be weaned to nasal cannula but await to hear back from [place]. Per [facility] can do 50 liters and 50%. Patient currently on 40 and 50 with sat of 100. Await psych recommendations. 03/30/21: Currently still on bipap. No HFNC units available in the house. Transfused blood on yesterday. But no CBC checked today. Patient states that she is tired and has expressed this to several of the staff. She is currently on [facility] but my plan is to discuss hospice with her and her . Dropping steroids down starting tomorrow. Continue to wean Oxygen as tolerated. If possible keep in either ICU or step down over the weekend. 03/29/21: Currently on bipap. Good volumes and good sats. Still with some mild distress but stable. Will continue bipap therapy for now. Tomorrow will need to place psych consult if able to stay of the vent and weaned from continuous bipap to help us address anxiety and depression. IMS will likely want to transfuse PRBC's. Would give slowly if done. Discussed with NETWORK OPERATIONS SPECIALIST and Bedside nurse, will restart precedex at low dose to help with anxiety. Will alert . 03/28/21: Continue PSV but she isnt ready for extubation today. Not able to tolerates PSV on yesterday so today is first real test. Dropped steroids to daily starting today. UOP is stable, but she is grossly positive. If oxygen requirement increases, check CXR and may need to consider lasix. Continue PSV for as long as possible today but definitely rest overnight. Guarded prognosis. May eventually need trach. 03/27/21: Monitor renal function and urine output closely. Not sure why K continues to be elevated despite daily correction therapy. Attempt PSV off fent but can continue precedex. Will see how patient looks tomorrow but still may not be a candidate for extubation. Drop steroids to daily starting tomorrow. 03/26/21: Continue daily PSV trials. Agree with my partner as I would like another trial of routine extubation before committing to trach. Discussed with family and patient at bedside this am. Continue solumedrol 40q12. IMS restarted buspar. WIll have psych see and evaluate to help with anxiety and depression once extubated. Guarded prognosis. 03/22/21: Please see event note for details. Planned to extubate today and wean steroids. 03/21/21: Echo given continued tachycardia despite adequate oxygenation. Can drop steroids to 40q8. 03/19/21: Continue sedation. Wean FiO2 for sats >88%. consider weaning steroid tomorrow. Follow up RUQ and trend LFT's 1. Wean Versed and place on Diprovan drip 2. Will give Fent 100 IV x1 now and order drip if needed for pain 3. Spoke with over the phone to get more history. Sounds like a panic attack not aborted by xanax therapy. Did check Tylenol level as patient has been in pain from fall 4. Elevated LFT's former drinker but confirms she has not been drinking. Ordered RUQ ultrasound and need to repeat LFT's tomorrow 5. Reviewed cards note, and they do not want to treat tachycardia or elevated bp, likely needs more sedation Guarded prognosis CCT 31 minutes. Subjective Date of service: 04/06/21 Principal diagnosis: Atrial fibrillation with RVR, respiratory failure Interval history: No acute events. spoke with psych this am. Objective Vital Signs - 12hr 04/06/21 04/06/21 04/06/21 06:00 06:30 06:41 Temperature Pulse Rate 79 90 84 Pulse Rate [ Bilateral] Pulse Rate [ From Monitor] Respiratory 17 26 H Rate Respiratory Rate [Bilateral ] Blood Pressure 147/69 147/69 147/69 O2 Sat by Pulse 97 97 Oximetry 04/06/21 04/06/21 04/06/21 07:00 07:30 08:00 Temperature 97.9 F Pulse Rate 92 H 80 86 Pulse Rate [ 78 Bilateral] Pulse Rate [ 76 From Monitor] Respiratory 26 H 26 H 18 Rate Respiratory 20 Rate [Bilateral ] Blood Pressure 140/81 140/81 136/104 O2 Sat by Pulse 96 97 97 Oximetry 04/06/21 04/06/21 04/06/21 08:30 09:00 09:30 Temperature Pulse Rate 91 H 86 91 H Pulse Rate [ Bilateral] Pulse Rate [ From Monitor] Respiratory 25 H 25 H 24 Rate Respiratory Rate [Bilateral ] Blood Pressure 136/104 130/68 130/68 O2 Sat by Pulse 97 99 99 Oximetry 04/06/21 04/06/21 04/06/21 09:39 10:00 10:30 Temperature Pulse Rate 86 93 H 74 Pulse Rate [ Bilateral] Pulse Rate [ From Monitor] Respiratory 25 H 20 Rate Respiratory Rate [Bilateral ] Blood Pressure 130/68 128/61 128/61 O2 Sat by Pulse 99 100 Oximetry 04/06/21 04/06/21 04/06/21 11:00 11:30 12:00 Temperature 98.3 F Pulse Rate 74 72 65 Pulse Rate [ Bilateral] Pulse Rate [ 74 From Monitor] Respiratory 17 16 18 Rate Respiratory Rate [Bilateral ] Blood Pressure 134/64 134/64 134/64 O2 Sat by Pulse 98 99 97 Oximetry 04/06/21 04/06/21 04/06/21 12:30 13:00 13:30 Temperature Pulse Rate 69 81 79 Pulse Rate [ Bilateral] Pulse Rate [ From Monitor] Respiratory 15 17 17 Rate Respiratory Rate [Bilateral ] Blood Pressure 149/56 129/74 129/74 O2 Sat by Pulse 99 97 99 Oximetry 04/06/21 04/06/21 04/06/21 13:44 14:00 14:30 Temperature Pulse Rate 80 78 74 Pulse Rate [ Bilateral] Pulse Rate [ From Monitor] Respiratory 16 20 Rate Respiratory Rate [Bilateral ] Blood Pressure 129/74 128/60 128/60 O2 Sat by Pulse 98 98 Oximetry 04/06/21 04/06/21 04/06/21 15:00 15:30 16:00 Temperature 98.7 F Pulse Rate 84 76 80 Pulse Rate [ Bilateral] Pulse Rate [ 76 From Monitor] Respiratory 16 22 20 Rate Respiratory Rate [Bilateral ] Blood Pressure 128/60 150/54 132/68 O2 Sat by Pulse 97 99 99 Oximetry Constitutional: other (moderate distress) Eyes: non-icteric ENT: oropharynx moist Neck: supple Effort: normal Ascultation: Bilateral: diminished breath sounds Cardiovascular: regular rate and rhythm (no mrg) Gastrointestinal: normoactive bowel sounds, soft, non-tender, non-distended Extremities: no cyanosis, no edema, pink and warm Neurologic: normal mental status, non-focal exam, pupils equal and round Psychiatric: mood appropriate, affect normal CBC and BMP: 04/04/21 04:21 04/04/21 04:21 ABG, PT/INR, D-dimer: ABG ABG pH 7.477 (7.320-7.450) H 03/24/21 08:57 POC ABG pCO2 56.9 mmHg (32.0-48.0) H 03/24/21 08:57 ABG pCO2 72.7 mm Hg 03/23/21 04:50 POC ABG pO2 100.6 mmHg (83-108) 03/24/21 08:57 ABG pO2 70.7 mm Hg (80.0-90.0) L 03/23/21 04:50 POC ABG HCO3 41.1 03/24/21 08:57 ABG O2 Saturation 98.3 (0-100) 03/24/21 08:57 PT/INR, D-dimer PT 12.6 Sec. (12.2-14.9) 03/17/21 17:37 INR 0.85 (0.87-1.13) L 03/17/21 17:37 D-Dimer 947.92 ng/mlDDU (0-234) H 03/17/21 17:37 Abnormal lab findings: Abnormal Labs 03/17/21 03/17/21 03/17/21 17:36 17:36 17:37 WBC 13.8 H RBC 3.48 L Hgb 7.0 L Hct 26.2 L MCV 75 L MCH 20 L MCHC 27 L RDW 25.4 H Plt Count Seg Neuts % (Manual) Lymphocytes % (Manual) Monocytes % (Manual) Nucleated RBC % 7.0 H Seg Neutrophils # Man 8.7 H Lymphocytes # (Manual) Monocytes # (Manual) INR 0.85 L APTT 23.3 L D-Dimer 947.92 H ABG pH POC ABG pCO2 POC ABG pO2 ABG pO2 ABG HCO3 ABG O2 Saturation ABG Base Excess ABG Hemoglobin ABG Oxyhemoglobin ABG Potassium ABG Chloride ABG Glucose Oxyhemoglobin Sodium Potassium Chloride 88.2 L Carbon Dioxide 38 H BUN Creatinine Glucose 129 H POC Glucose Lactic Acid Calcium Phosphorus Magnesium AST 177 H ALT 251 H Alkaline Phosphatase Ammonia Troponin T 0.036 H Total Protein 5.9 L Albumin 3.8 L Triglycerides 173 H HDL Cholesterol 73 H Lipase Arterial Blood Glucose Arterial Blood Ionized Calcium Acetaminophen Crossmatch 03/17/21 03/17/21 03/17/21 18:15 18:40 18:40 WBC RBC Hgb Hct MCV MCH MCHC RDW Plt Count Seg Neuts % (Manual) Lymphocytes % (Manual) Monocytes % (Manual) Nucleated RBC % Seg Neutrophils # Man Lymphocytes # (Manual) Monocytes # (Manual) INR APTT D-Dimer ABG pH POC ABG pCO2 POC ABG pO2 ABG pO2 94.4 H ABG HCO3 44.8 H ABG O2 Saturation ABG Base Excess 16.6 H ABG Hemoglobin ABG Oxyhemoglobin ABG Potassium ABG Chloride ABG Glucose Oxyhemoglobin Sodium Potassium Chloride Carbon Dioxide BUN Creatinine Glucose POC Glucose Lactic Acid 4.00 H* Calcium Phosphorus Magnesium AST ALT Alkaline Phosphatase Ammonia 116.0 H Troponin T Total Protein Albumin Triglycerides HDL Cholesterol Lipase Arterial Blood Glucose Arterial Blood Ionized Calcium Acetaminophen Crossmatch 03/17/21 03/18/21 03/18/21 23:36 00:25 23:07 WBC RBC Hgb Hct MCV MCH MCHC RDW Plt Count Seg Neuts % (Manual) Lymphocytes % (Manual) Monocytes % (Manual) Nucleated RBC % Seg Neutrophils # Man Lymphocytes # (Manual) Monocytes # (Manual) INR APTT D-Dimer ABG pH POC ABG pCO2 POC ABG pO2 ABG pO2 68.1 L ABG HCO3 40.2 H ABG O2 Saturation ABG Base Excess 14.4 H ABG Hemoglobin 6.5 L ABG Oxyhemoglobin ABG Potassium ABG Chloride ABG Glucose Oxyhemoglobin Sodium Potassium Chloride Carbon Dioxide BUN Creatinine Glucose POC Glucose Lactic Acid 4.00 H* Calcium Phosphorus Magnesium AST ALT Alkaline Phosphatase Ammonia Troponin T Total Protein Albumin Triglycerides HDL Cholesterol Lipase Arterial Blood Glucose Arterial Blood Ionized Calcium Acetaminophen 5.0 L Crossmatch 03/19/21 03/19/21 03/19/21 00:50 03:25 04:59 WBC RBC 3.43 L Hgb 7.0 L Hct 25.6 L MCV 75 L MCH 20 L MCHC 27 L RDW 25.6 H Plt Count Seg Neuts % (Manual) 91.0 H Lymphocytes % (Manual) Monocytes % (Manual) 9.0 H Nucleated RBC % 3.0 H Seg Neutrophils # Man 9.0 H Lymphocytes # (Manual) 0.0 L Monocytes # (Manual) INR APTT D-Dimer ABG pH 7.531 H POC ABG pCO2 POC ABG pO2 ABG pO2 49.6 L ABG HCO3 31.4 H ABG O2 Saturation 99.6 H ABG Base Excess 8.1 H ABG Hemoglobin 7.2 L ABG Oxyhemoglobin ABG Potassium ABG Chloride ABG Glucose Oxyhemoglobin Sodium Potassium Chloride Carbon Dioxide BUN Creatinine Glucose POC Glucose 127 H Lactic Acid Calcium Phosphorus Magnesium AST ALT Alkaline Phosphatase Ammonia Troponin T Total Protein Albumin Triglycerides HDL Cholesterol Lipase Arterial Blood Glucose Arterial Blood Ionized Calcium Acetaminophen Crossmatch 03/19/21 03/19/21 03/19/21 04:59 10:37 12:00 WBC RBC Hgb Hct MCV MCH MCHC RDW Plt Count Seg Neuts % (Manual) Lymphocytes % (Manual) Monocytes % (Manual) Nucleated RBC % Seg Neutrophils # Man Lymphocytes # (Manual) Monocytes # (Manual) INR APTT D-Dimer ABG pH 7.494 H POC ABG pCO2 POC ABG pO2 ABG pO2 107.3 H ABG HCO3 31.6 H ABG O2 Saturation ABG Base Excess 7.7 H ABG Hemoglobin 7.1 L ABG Oxyhemoglobin ABG Potassium ABG Chloride ABG Glucose Oxyhemoglobin Sodium Potassium Chloride 89.5 L Carbon Dioxide BUN Creatinine Glucose 121 H POC Glucose Lactic Acid Calcium Phosphorus Magnesium AST 359 H ALT 1434 H Alkaline Phosphatase Ammonia Troponin T Total Protein 5.7 L Albumin 3.5 L Triglycerides HDL Cholesterol Lipase Arterial Blood Glucose Arterial Blood Ionized Calcium Acetaminophen Crossmatch 03/19/21 03/19/21 03/19/21 12:05 17:52 23:23 WBC RBC Hgb Hct MCV MCH MCHC RDW Plt Count Seg Neuts % (Manual) Lymphocytes % (Manual) Monocytes % (Manual) Nucleated RBC % Seg Neutrophils # Man Lymphocytes # (Manual) Monocytes # (Manual) INR APTT D-Dimer ABG pH POC ABG pCO2 POC ABG pO2 ABG pO2 ABG HCO3 ABG O2 Saturation ABG Base Excess ABG Hemoglobin ABG Oxyhemoglobin ABG Potassium ABG Chloride ABG Glucose Oxyhemoglobin Sodium Potassium Chloride Carbon Dioxide BUN Creatinine Glucose POC Glucose 122 H 114 H 187 H Lactic Acid Calcium Phosphorus Magnesium AST ALT Alkaline Phosphatase Ammonia Troponin T Total Protein Albumin Triglycerides HDL Cholesterol Lipase Arterial Blood Glucose Arterial Blood Ionized Calcium Acetaminophen Crossmatch 03/19/21 03/20/21 03/20/21 Unknown 03:50 03:57 WBC RBC Hgb Hct MCV MCH MCHC RDW Plt Count Seg Neuts % (Manual) Lymphocytes % (Manual) Monocytes % (Manual) Nucleated RBC % Seg Neutrophils # Man Lymphocytes # (Manual) Monocytes # (Manual) INR APTT D-Dimer ABG pH 7.477 H POC ABG pCO2 POC ABG pO2 ABG pO2 67.9 L ABG HCO3 33.9 H ABG O2 Saturation ABG Base Excess 9.5 H ABG Hemoglobin 6.7 L ABG Oxyhemoglobin ABG Potassium ABG Chloride ABG Glucose Oxyhemoglobin Sodium Potassium Chloride Carbon Dioxide BUN Creatinine Glucose POC Glucose 247 H Lactic Acid Calcium Phosphorus Magnesium AST ALT Alkaline Phosphatase Ammonia Troponin T Total Protein Albumin Triglycerides HDL Cholesterol Lipase 12 L Arterial Blood Glucose Arterial Blood Ionized Calcium Acetaminophen Crossmatch 03/20/21 03/20/21 03/20/21 04:18 04:18 10:16 WBC RBC 3.48 L Hgb 7.0 L Hct 25.3 L MCV 73 L MCH 20 L MCHC 28 L RDW 25.2 H Plt Count 541 H Seg Neuts % (Manual) Lymphocytes % (Manual) Monocytes % (Manual) Nucleated RBC % Seg Neutrophils # Man Lymphocytes # (Manual) Monocytes # (Manual) INR APTT D-Dimer ABG pH POC ABG pCO2 POC ABG pO2 ABG pO2 63.3 L ABG HCO3 34.0 H ABG O2 Saturation 90.0 L ABG Base Excess 7.9 H ABG Hemoglobin 10.5 L ABG Oxyhemoglobin ABG Potassium ABG Chloride ABG Glucose Oxyhemoglobin 88.1 L Sodium Potassium Chloride 91.6 L Carbon Dioxide BUN 22 H Creatinine Glucose 245 H POC Glucose Lactic Acid Calcium Phosphorus Magnesium AST 148 H ALT 1096 H Alkaline Phosphatase 133 H Ammonia Troponin T Total Protein Albumin 3.5 L Triglycerides HDL Cholesterol Lipase Arterial Blood Glucose Arterial Blood Ionized Calcium Acetaminophen Crossmatch 03/20/21 03/20/21 03/21/21 12:05 17:26 00:18 WBC RBC Hgb Hct MCV MCH MCHC RDW Plt Count Seg Neuts % (Manual) Lymphocytes % (Manual) Monocytes % (Manual) Nucleated RBC % Seg Neutrophils # Man Lymphocytes # (Manual) Monocytes # (Manual) INR APTT D-Dimer ABG pH POC ABG pCO2 POC ABG pO2 ABG pO2 ABG HCO3 ABG O2 Saturation ABG Base Excess ABG Hemoglobin ABG Oxyhemoglobin ABG Potassium ABG Chloride ABG Glucose Oxyhemoglobin Sodium Potassium Chloride Carbon Dioxide BUN Creatinine Glucose POC Glucose 226 H 215 H 323 H Lactic Acid Calcium Phosphorus Magnesium AST ALT Alkaline Phosphatase Ammonia Troponin T Total Protein Albumin Triglycerides HDL Cholesterol Lipase Arterial Blood Glucose Arterial Blood Ionized Calcium Acetaminophen Crossmatch 03/21/21 03/21/21 03/21/21 04:00 05:05 09:28 WBC 12.0 H RBC 3.42 L Hgb 6.8 L Hct 25.3 L MCV 74 L MCH 20 L MCHC 27 L RDW 25.1 H Plt Count 650 H Seg Neuts % (Manual) Lymphocytes % (Manual) Monocytes % (Manual) Nucleated RBC % Seg Neutrophils # Man Lymphocytes # (Manual) Monocytes # (Manual) INR APTT D-Dimer ABG pH 7.348 L POC ABG pCO2 POC ABG pO2 ABG pO2 56.3 L ABG HCO3 36.9 H ABG O2 Saturation 83.4 L ABG Base Excess 10.0 H ABG Hemoglobin 7.0 L ABG Oxyhemoglobin ABG Potassium ABG Chloride ABG Glucose Oxyhemoglobin 81.7 L Sodium Potassium Chloride Carbon Dioxide BUN Creatinine Glucose POC Glucose 311 H Lactic Acid Calcium Phosphorus Magnesium AST ALT Alkaline Phosphatase Ammonia Troponin T Total Protein Albumin Triglycerides HDL Cholesterol Lipase Arterial Blood Glucose Arterial Blood Ionized Calcium Acetaminophen Crossmatch 03/21/21 03/21/21 03/21/21 09:28 12:31 14:08 WBC RBC Hgb Hct MCV MCH MCHC RDW Plt Count Seg Neuts % (Manual) Lymphocytes % (Manual) Monocytes % (Manual) Nucleated RBC % Seg Neutrophils # Man Lymphocytes # (Manual) Monocytes # (Manual) INR APTT D-Dimer ABG pH POC ABG pCO2 POC ABG pO2 ABG pO2 ABG HCO3 ABG O2 Saturation ABG Base Excess ABG Hemoglobin ABG Oxyhemoglobin ABG Potassium ABG Chloride ABG Glucose Oxyhemoglobin Sodium Potassium 5.1 H D Chloride 94.4 L Carbon Dioxide 33 H BUN 32 H Creatinine Glucose 319 H POC Glucose 295 H Lactic Acid Calcium Phosphorus Magnesium 2.40 H AST ALT 697 H Alkaline Phosphatase 134 H Ammonia Troponin T Total Protein 5.8 L Albumin 3.4 L Triglycerides HDL Cholesterol Lipase Arterial Blood Glucose Arterial Blood Ionized Calcium Acetaminophen Crossmatch See Detail 03/22/21 03/22/21 03/22/21 00:14 04:30 04:39 WBC RBC Hgb Hct MCV MCH MCHC RDW Plt Count Seg Neuts % (Manual) Lymphocytes % (Manual) Monocytes % (Manual) Nucleated RBC % Seg Neutrophils # Man Lymphocytes # (Manual) Monocytes # (Manual) INR APTT D-Dimer ABG pH 7.310 L POC ABG pCO2 POC ABG pO2 ABG pO2 65.4 L ABG HCO3 38.3 H ABG O2 Saturation 90.8 L ABG Base Excess 10.9 H ABG Hemoglobin 6.4 L ABG Oxyhemoglobin ABG Potassium ABG Chloride ABG Glucose Oxyhemoglobin 88.7 L Sodium Potassium Chloride Carbon Dioxide BUN Creatinine Glucose POC Glucose 326 H Lactic Acid Calcium Phosphorus Magnesium AST ALT Alkaline Phosphatase Ammonia Troponin T Total Protein Albumin Triglycerides 189 H HDL Cholesterol Lipase Arterial Blood Glucose Arterial Blood Ionized Calcium Acetaminophen Crossmatch 03/22/21 03/22/21 03/22/21 04:39 04:39 09:45 WBC 12.8 H RBC 3.34 L Hgb 6.6 L Hct 24.5 L MCV 73 L MCH 20 L MCHC 27 L RDW 25.5 H Plt Count 644 H Seg Neuts % (Manual) Lymphocytes % (Manual) Monocytes % (Manual) Nucleated RBC % Seg Neutrophils # Man Lymphocytes # (Manual) Monocytes # (Manual) INR APTT D-Dimer ABG pH POC ABG pCO2 65.7 H POC ABG pO2 59.7 L ABG pO2 ABG HCO3 ABG O2 Saturation ABG Base Excess ABG Hemoglobin 8.0 L ABG Oxyhemoglobin 86.3 L ABG Potassium 4.7 H ABG Chloride 94.0 L ABG Glucose 208 H Oxyhemoglobin Sodium Potassium 5.3 H Chloride 94.6 L Carbon Dioxide 34 H BUN 33 H Creatinine Glucose 291 H POC Glucose Lactic Acid Calcium Phosphorus Magnesium AST ALT Alkaline Phosphatase Ammonia Troponin T Total Protein Albumin Triglycerides HDL Cholesterol Lipase Arterial Blood Glucose 208 H Arterial Blood Ionized Calcium Acetaminophen Crossmatch 03/22/21 03/22/21 03/23/21 21:33 23:58 04:42 WBC 14.3 H RBC 3.63 L Hgb 7.6 L Hct 27.0 L MCV 74 L MCH 21 L MCHC 28 L RDW 23.1 H Plt Count 567 H Seg Neuts % (Manual) Lymphocytes % (Manual) Monocytes % (Manual) Nucleated RBC % Seg Neutrophils # Man Lymphocytes # (Manual) Monocytes # (Manual) INR APTT D-Dimer ABG pH POC ABG pCO2 POC ABG pO2 ABG pO2 ABG HCO3 ABG O2 Saturation ABG Base Excess ABG Hemoglobin ABG Oxyhemoglobin ABG Potassium ABG Chloride ABG Glucose Oxyhemoglobin Sodium Potassium Chloride Carbon Dioxide BUN Creatinine Glucose POC Glucose 170 H 156 H Lactic Acid Calcium Phosphorus Magnesium AST ALT Alkaline Phosphatase Ammonia Troponin T Total Protein Albumin Triglycerides HDL Cholesterol Lipase Arterial Blood Glucose Arterial Blood Ionized Calcium Acetaminophen Crossmatch 03/23/21 03/23/21 03/23/21 04:42 04:50 22:25 WBC RBC Hgb Hct MCV MCH MCHC RDW Plt Count Seg Neuts % (Manual) Lymphocytes % (Manual) Monocytes % (Manual) Nucleated RBC % Seg Neutrophils # Man Lymphocytes # (Manual) Monocytes # (Manual) INR APTT D-Dimer ABG pH POC ABG pCO2 POC ABG pO2 ABG pO2 70.7 L ABG HCO3 41.7 H ABG O2 Saturation ABG Base Excess 15.2 H ABG Hemoglobin 5.6 L ABG Oxyhemoglobin ABG Potassium ABG Chloride ABG Glucose Oxyhemoglobin Sodium Potassium Chloride 94.6 L Carbon Dioxide 37 H BUN 27 H Creatinine Glucose 311 H POC Glucose 295 H Lactic Acid Calcium Phosphorus Magnesium AST ALT Alkaline Phosphatase Ammonia Troponin T Total Protein Albumin Triglycerides HDL Cholesterol Lipase Arterial Blood Glucose Arterial Blood Ionized Calcium Acetaminophen Crossmatch 03/23/21 03/24/21 03/24/21 23:13 05:13 07:59 WBC RBC Hgb Hct MCV MCH MCHC RDW Plt Count Seg Neuts % (Manual) Lymphocytes % (Manual) Monocytes % (Manual) Nucleated RBC % Seg Neutrophils # Man Lymphocytes # (Manual) Monocytes # (Manual) INR APTT D-Dimer ABG pH POC ABG pCO2 POC ABG pO2 ABG pO2 ABG HCO3 ABG O2 Saturation ABG Base Excess ABG Hemoglobin ABG Oxyhemoglobin ABG Potassium ABG Chloride ABG Glucose Oxyhemoglobin Sodium Potassium Chloride Carbon Dioxide BUN Creatinine Glucose POC Glucose 336 H 303 H 333 H Lactic Acid Calcium Phosphorus Magnesium AST ALT Alkaline Phosphatase Ammonia Troponin T Total Protein Albumin Triglycerides HDL Cholesterol Lipase Arterial Blood Glucose Arterial Blood Ionized Calcium Acetaminophen Crossmatch 03/24/21 03/24/21 03/24/21 08:03 08:03 08:57 WBC 12.7 H RBC 3.48 L Hgb 7.3 L Hct 26.3 L MCV 76 L MCH 21 L MCHC 28 L RDW 24.1 H Plt Count 499 H Seg Neuts % (Manual) Lymphocytes % (Manual) 1.0 L Monocytes % (Manual) 16.0 H Nucleated RBC % 11.0 H Seg Neutrophils # Man 8.1 H Lymphocytes # (Manual) 0.1 L Monocytes # (Manual) 2.1 H INR APTT D-Dimer ABG pH 7.477 H POC ABG pCO2 56.9 H POC ABG pO2 ABG pO2 ABG HCO3 ABG O2 Saturation ABG Base Excess ABG Hemoglobin 8.0 L ABG Oxyhemoglobin ABG Potassium ABG Chloride 93.0 L ABG Glucose 328 H Oxyhemoglobin Sodium Potassium Chloride 94.4 L Carbon Dioxide 38 H BUN 26 H Creatinine 0.5 L Glucose 348 H POC Glucose Lactic Acid Calcium Phosphorus Magnesium AST ALT Alkaline Phosphatase Ammonia Troponin T Total Protein Albumin Triglycerides HDL Cholesterol Lipase Arterial Blood Glucose 328 H Arterial Blood Ionized Calcium 4.5 L Acetaminophen Crossmatch 03/24/21 03/24/21 03/25/21 12:14 17:45 04:00 WBC 15.8 H RBC Hgb 7.5 L Hct 27.4 L MCV 75 L MCH 21 L MCHC 28 L RDW 24.0 H Plt Count 576 H Seg Neuts % (Manual) Lymphocytes % (Manual) Monocytes % (Manual) Nucleated RBC % Seg Neutrophils # Man Lymphocytes # (Manual) Monocytes # (Manual) INR APTT D-Dimer ABG pH POC ABG pCO2 POC ABG pO2 ABG pO2 ABG HCO3 ABG O2 Saturation ABG Base Excess ABG Hemoglobin ABG Oxyhemoglobin ABG Potassium ABG Chloride ABG Glucose Oxyhemoglobin Sodium Potassium Chloride Carbon Dioxide BUN Creatinine Glucose POC Glucose 315 H 324 H Lactic Acid Calcium Phosphorus Magnesium AST ALT Alkaline Phosphatase Ammonia Troponin T Total Protein Albumin Triglycerides HDL Cholesterol Lipase Arterial Blood Glucose Arterial Blood Ionized Calcium Acetaminophen Crossmatch 03/25/21 03/25/21 03/25/21 07:52 16:37 17:38 WBC RBC Hgb Hct MCV MCH MCHC RDW Plt Count Seg Neuts % (Manual) Lymphocytes % (Manual) Monocytes % (Manual) Nucleated RBC % Seg Neutrophils # Man Lymphocytes # (Manual) Monocytes # (Manual) INR APTT D-Dimer ABG pH POC ABG pCO2 POC ABG pO2 ABG pO2 ABG HCO3 ABG O2 Saturation ABG Base Excess ABG Hemoglobin ABG Oxyhemoglobin ABG Potassium ABG Chloride ABG Glucose Oxyhemoglobin Sodium Potassium Chloride 95.9 L Carbon Dioxide 33 H BUN 24 H Creatinine 0.4 L Glucose 289 H POC Glucose 321 H 295 H Lactic Acid Calcium Phosphorus Magnesium AST ALT Alkaline Phosphatase Ammonia Troponin T Total Protein Albumin Triglycerides HDL Cholesterol Lipase Arterial Blood Glucose Arterial Blood Ionized Calcium Acetaminophen Crossmatch 03/25/21 03/26/21 03/26/21 23:27 05:07 05:35 WBC 20.0 H RBC 3.37 L Hgb 7.0 L Hct 25.2 L MCV 75 L MCH 21 L MCHC 28 L RDW 24.0 H Plt Count 544 H Seg Neuts % (Manual) 72.0 H Lymphocytes % (Manual) 6.0 L Monocytes % (Manual) 8.0 H Nucleated RBC % Seg Neutrophils # Man 14.4 H Lymphocytes # (Manual) Monocytes # (Manual) 1.6 H INR APTT D-Dimer ABG pH POC ABG pCO2 POC ABG pO2 ABG pO2 ABG HCO3 ABG O2 Saturation ABG Base Excess ABG Hemoglobin ABG Oxyhemoglobin ABG Potassium ABG Chloride ABG Glucose Oxyhemoglobin Sodium Potassium Chloride Carbon Dioxide BUN Creatinine Glucose POC Glucose 231 H 200 H Lactic Acid Calcium Phosphorus Magnesium AST ALT Alkaline Phosphatase Ammonia Troponin T Total Protein Albumin Triglycerides HDL Cholesterol Lipase Arterial Blood Glucose Arterial Blood Ionized Calcium Acetaminophen Crossmatch 03/26/21 03/26/21 03/26/21 05:35 10:33 12:12 WBC RBC Hgb Hct MCV MCH MCHC RDW Plt Count Seg Neuts % (Manual) Lymphocytes % (Manual) Monocytes % (Manual) Nucleated RBC % Seg Neutrophils # Man Lymphocytes # (Manual) Monocytes # (Manual) INR APTT D-Dimer ABG pH POC ABG pCO2 POC ABG pO2 ABG pO2 ABG HCO3 ABG O2 Saturation ABG Base Excess ABG Hemoglobin ABG Oxyhemoglobin ABG Potassium ABG Chloride ABG Glucose Oxyhemoglobin Sodium Potassium 5.9 H D Chloride 91.9 L Carbon Dioxide 33 H BUN 20 H Creatinine 0.4 L Glucose 197 H POC Glucose 132 H 176 H Lactic Acid Calcium Phosphorus Magnesium AST ALT 169 H Alkaline Phosphatase 138 H Ammonia Troponin T Total Protein 5.5 L Albumin 3.2 L Triglycerides HDL Cholesterol Lipase Arterial Blood Glucose Arterial Blood Ionized Calcium Acetaminophen Crossmatch 03/26/21 03/26/21 03/26/21 16:50 18:06 22:19 WBC RBC Hgb Hct MCV MCH MCHC RDW Plt Count Seg Neuts % (Manual) Lymphocytes % (Manual) Monocytes % (Manual) Nucleated RBC % Seg Neutrophils # Man Lymphocytes # (Manual) Monocytes # (Manual) INR APTT D-Dimer ABG pH POC ABG pCO2 POC ABG pO2 ABG pO2 ABG HCO3 ABG O2 Saturation ABG Base Excess ABG Hemoglobin ABG Oxyhemoglobin ABG Potassium ABG Chloride ABG Glucose Oxyhemoglobin Sodium Potassium 5.2 H Chloride 91.7 L Carbon Dioxide 38 H BUN 19 H Creatinine 0.4 L Glucose 260 H POC Glucose 248 H 168 H Lactic Acid Calcium Phosphorus Magnesium AST ALT Alkaline Phosphatase Ammonia Troponin T Total Protein Albumin Triglycerides HDL Cholesterol Lipase Arterial Blood Glucose Arterial Blood Ionized Calcium Acetaminophen Crossmatch 03/27/21 03/27/21 03/27/21 01:02 01:32 04:15 WBC 21.4 H RBC 3.45 L Hgb 6.9 L Hct 26.2 L MCV 76 L MCH 20 L MCHC 27 L RDW 24.5 H Plt Count 500 H Seg Neuts % (Manual) Lymphocytes % (Manual) Monocytes % (Manual) Nucleated RBC % Seg Neutrophils # Man Lymphocytes # (Manual) Monocytes # (Manual) INR APTT D-Dimer ABG pH POC ABG pCO2 POC ABG pO2 ABG pO2 ABG HCO3 ABG O2 Saturation ABG Base Excess ABG Hemoglobin ABG Oxyhemoglobin ABG Potassium ABG Chloride ABG Glucose Oxyhemoglobin Sodium Potassium Chloride Carbon Dioxide BUN Creatinine Glucose POC Glucose 219 H 221 H Lactic Acid Calcium Phosphorus Magnesium AST ALT Alkaline Phosphatase Ammonia Troponin T Total Protein Albumin Triglycerides HDL Cholesterol Lipase Arterial Blood Glucose Arterial Blood Ionized Calcium Acetaminophen Crossmatch 03/27/21 03/27/21 03/27/21 04:15 06:37 11:21 WBC RBC Hgb Hct MCV MCH MCHC RDW Plt Count Seg Neuts % (Manual) Lymphocytes % (Manual) Monocytes % (Manual) Nucleated RBC % Seg Neutrophils # Man Lymphocytes # (Manual) Monocytes # (Manual) INR APTT D-Dimer ABG pH POC ABG pCO2 POC ABG pO2 ABG pO2 ABG HCO3 ABG O2 Saturation ABG Base Excess ABG Hemoglobin ABG Oxyhemoglobin ABG Potassium ABG Chloride ABG Glucose Oxyhemoglobin Sodium Potassium 5.3 H Chloride 94.4 L Carbon Dioxide 35 H BUN 20 H Creatinine 0.4 L Glucose 310 H POC Glucose 312 H 273 H Lactic Acid Calcium 8.3 L Phosphorus 4.60 H D Magnesium AST ALT Alkaline Phosphatase Ammonia Troponin T Total Protein Albumin Triglycerides HDL Cholesterol Lipase Arterial Blood Glucose Arterial Blood Ionized Calcium Acetaminophen Crossmatch 03/27/21 03/27/21 03/28/21 16:14 21:21 00:16 WBC RBC Hgb Hct MCV MCH MCHC RDW Plt Count Seg Neuts % (Manual) Lymphocytes % (Manual) Monocytes % (Manual) Nucleated RBC % Seg Neutrophils # Man Lymphocytes # (Manual) Monocytes # (Manual) INR APTT D-Dimer ABG pH POC ABG pCO2 POC ABG pO2 ABG pO2 ABG HCO3 ABG O2 Saturation ABG Base Excess ABG Hemoglobin ABG Oxyhemoglobin ABG Potassium ABG Chloride ABG Glucose Oxyhemoglobin Sodium Potassium Chloride Carbon Dioxide BUN Creatinine Glucose POC Glucose 241 H 179 H 160 H Lactic Acid Calcium Phosphorus Magnesium AST ALT Alkaline Phosphatase Ammonia Troponin T Total Protein Albumin Triglycerides HDL Cholesterol Lipase Arterial Blood Glucose Arterial Blood Ionized Calcium Acetaminophen Crossmatch 03/28/21 03/28/21 03/28/21 04:00 04:00 05:41 WBC 27.1 H RBC 3.46 L Hgb 7.1 L Hct 26.1 L MCV 76 L MCH 20 L MCHC 27 L RDW 24.0 H Plt Count 541 H Seg Neuts % (Manual) Lymphocytes % (Manual) Monocytes % (Manual) Nucleated RBC % Seg Neutrophils # Man Lymphocytes # (Manual) Monocytes # (Manual) INR APTT D-Dimer ABG pH POC ABG pCO2 POC ABG pO2 ABG pO2 ABG HCO3 ABG O2 Saturation ABG Base Excess ABG Hemoglobin ABG Oxyhemoglobin ABG Potassium ABG Chloride ABG Glucose Oxyhemoglobin Sodium Potassium Chloride 95.7 L Carbon Dioxide 36 H BUN 23 H Creatinine 0.4 L Glucose 295 H POC Glucose 279 H Lactic Acid Calcium Phosphorus Magnesium AST ALT Alkaline Phosphatase Ammonia Troponin T Total Protein Albumin Triglycerides HDL Cholesterol Lipase Arterial Blood Glucose Arterial Blood Ionized Calcium Acetaminophen Crossmatch 03/28/21 03/28/21 03/28/21 11:50 16:45 23:15 WBC RBC Hgb Hct MCV MCH MCHC RDW Plt Count Seg Neuts % (Manual) Lymphocytes % (Manual) Monocytes % (Manual) Nucleated RBC % Seg Neutrophils # Man Lymphocytes # (Manual) Monocytes # (Manual) INR APTT D-Dimer ABG pH POC ABG pCO2 POC ABG pO2 ABG pO2 ABG HCO3 ABG O2 Saturation ABG Base Excess ABG Hemoglobin ABG Oxyhemoglobin ABG Potassium ABG Chloride ABG Glucose Oxyhemoglobin Sodium Potassium Chloride Carbon Dioxide BUN Creatinine Glucose POC Glucose 233 H 240 H 189 H Lactic Acid Calcium Phosphorus Magnesium AST ALT Alkaline Phosphatase Ammonia Troponin T Total Protein Albumin Triglycerides HDL Cholesterol Lipase Arterial Blood Glucose Arterial Blood Ionized Calcium Acetaminophen Crossmatch 03/29/21 03/29/21 03/29/21 04:35 04:35 05:05 WBC 29.6 H RBC 3.18 L Hgb 6.7 L Hct 24.2 L MCV 76 L MCH 21 L MCHC 28 L RDW 24.0 H Plt Count 678 H Seg Neuts % (Manual) Lymphocytes % (Manual) Monocytes % (Manual) Nucleated RBC % Seg Neutrophils # Man Lymphocytes # (Manual) Monocytes # (Manual) INR APTT D-Dimer ABG pH POC ABG pCO2 POC ABG pO2 ABG pO2 ABG HCO3 ABG O2 Saturation ABG Base Excess ABG Hemoglobin ABG Oxyhemoglobin ABG Potassium ABG Chloride ABG Glucose Oxyhemoglobin Sodium Potassium Chloride 95.4 L Carbon Dioxide 37 H BUN 22 H Creatinine 0.4 L Glucose 194 H POC Glucose 195 H Lactic Acid Calcium Phosphorus Magnesium AST ALT Alkaline Phosphatase Ammonia Troponin T Total Protein Albumin Triglycerides HDL Cholesterol Lipase Arterial Blood Glucose Arterial Blood Ionized Calcium Acetaminophen Crossmatch 03/29/21 03/29/21 03/29/21 09:24 10:58 17:14 WBC RBC Hgb Hct MCV MCH MCHC RDW Plt Count Seg Neuts % (Manual) Lymphocytes % (Manual) Monocytes % (Manual) Nucleated RBC % Seg Neutrophils # Man Lymphocytes # (Manual) Monocytes # (Manual) INR APTT D-Dimer ABG pH POC ABG pCO2 POC ABG pO2 ABG pO2 ABG HCO3 ABG O2 Saturation ABG Base Excess ABG Hemoglobin ABG Oxyhemoglobin ABG Potassium ABG Chloride ABG Glucose Oxyhemoglobin Sodium Potassium Chloride Carbon Dioxide BUN Creatinine Glucose POC Glucose 106 H 117 H Lactic Acid Calcium Phosphorus Magnesium AST ALT Alkaline Phosphatase Ammonia Troponin T Total Protein Albumin Triglycerides HDL Cholesterol Lipase Arterial Blood Glucose Arterial Blood Ionized Calcium Acetaminophen Crossmatch See Detail 03/29/21 03/29/21 03/30/21 19:32 23:36 01:49 WBC 25.1 H RBC Hgb 9.3 L Hct MCV 77 L MCH 23 L MCHC RDW 22.7 H Plt Count 599 H Seg Neuts % (Manual) Lymphocytes % (Manual) Monocytes % (Manual) Nucleated RBC % Seg Neutrophils # Man Lymphocytes # (Manual) Monocytes # (Manual) INR APTT D-Dimer ABG pH POC ABG pCO2 POC ABG pO2 ABG pO2 ABG HCO3 ABG O2 Saturation ABG Base Excess ABG Hemoglobin ABG Oxyhemoglobin ABG Potassium ABG Chloride ABG Glucose Oxyhemoglobin Sodium Potassium Chloride Carbon Dioxide BUN Creatinine Glucose POC Glucose 57 L 55 L Lactic Acid Calcium Phosphorus Magnesium AST ALT Alkaline Phosphatase Ammonia Troponin T Total Protein Albumin Triglycerides HDL Cholesterol Lipase Arterial Blood Glucose Arterial Blood Ionized Calcium Acetaminophen Crossmatch 03/30/21 03/30/21 03/30/21 04:00 15:52 18:07 WBC RBC Hgb Hct MCV MCH MCHC RDW Plt Count Seg Neuts % (Manual) Lymphocytes % (Manual) Monocytes % (Manual) Nucleated RBC % Seg Neutrophils # Man Lymphocytes # (Manual) Monocytes # (Manual) INR APTT D-Dimer ABG pH POC ABG pCO2 POC ABG pO2 ABG pO2 ABG HCO3 ABG O2 Saturation ABG Base Excess ABG Hemoglobin ABG Oxyhemoglobin ABG Potassium ABG Chloride ABG Glucose Oxyhemoglobin Sodium Potassium Chloride 93.4 L Carbon Dioxide 34 H BUN 18 H Creatinine 0.3 L Glucose 114 H POC Glucose 112 H 130 H Lactic Acid Calcium Phosphorus 4.70 H Magnesium AST ALT Alkaline Phosphatase Ammonia Troponin T Total Protein Albumin Triglycerides HDL Cholesterol Lipase Arterial Blood Glucose Arterial Blood Ionized Calcium Acetaminophen Crossmatch 03/30/21 03/31/21 03/31/21 23:26 04:41 04:41 WBC 30.8 H RBC Hgb 9.3 L Hct MCV MCH 23 L MCHC 28 L RDW 22.3 H Plt Count 642 H Seg Neuts % (Manual) Lymphocytes % (Manual) Monocytes % (Manual) Nucleated RBC % Seg Neutrophils # Man Lymphocytes # (Manual) Monocytes # (Manual) INR APTT D-Dimer ABG pH POC ABG pCO2 POC ABG pO2 ABG pO2 ABG HCO3 ABG O2 Saturation ABG Base Excess ABG Hemoglobin ABG Oxyhemoglobin ABG Potassium ABG Chloride ABG Glucose Oxyhemoglobin Sodium Potassium Chloride 96.3 L Carbon Dioxide 34 H BUN Creatinine 0.3 L Glucose POC Glucose 124 H Lactic Acid Calcium Phosphorus Magnesium AST ALT Alkaline Phosphatase Ammonia Troponin T Total Protein Albumin Triglycerides HDL Cholesterol Lipase Arterial Blood Glucose Arterial Blood Ionized Calcium Acetaminophen Crossmatch 03/31/21 04/01/21 04/01/21 17:45 00:17 04:27 WBC 20.2 H RBC Hgb 9.1 L Hct MCV MCH 23 L MCHC 28 L RDW 22.3 H Plt Count 454 H Seg Neuts % (Manual) Lymphocytes % (Manual) Monocytes % (Manual) Nucleated RBC % Seg Neutrophils # Man Lymphocytes # (Manual) Monocytes # (Manual) INR APTT D-Dimer ABG pH POC ABG pCO2 POC ABG pO2 ABG pO2 ABG HCO3 ABG O2 Saturation ABG Base Excess ABG Hemoglobin ABG Oxyhemoglobin ABG Potassium ABG Chloride ABG Glucose Oxyhemoglobin Sodium Potassium Chloride Carbon Dioxide BUN Creatinine Glucose POC Glucose 130 H 108 H Lactic Acid Calcium Phosphorus Magnesium AST ALT Alkaline Phosphatase Ammonia Troponin T Total Protein Albumin Triglycerides HDL Cholesterol Lipase Arterial Blood Glucose Arterial Blood Ionized Calcium Acetaminophen Crossmatch 04/01/21 04/01/21 04/01/21 04:27 11:56 16:19 WBC RBC Hgb Hct MCV MCH MCHC RDW Plt Count Seg Neuts % (Manual) Lymphocytes % (Manual) Monocytes % (Manual) Nucleated RBC % Seg Neutrophils # Man Lymphocytes # (Manual) Monocytes # (Manual) INR APTT D-Dimer ABG pH POC ABG pCO2 POC ABG pO2 ABG pO2 ABG HCO3 ABG O2 Saturation ABG Base Excess ABG Hemoglobin ABG Oxyhemoglobin ABG Potassium ABG Chloride ABG Glucose Oxyhemoglobin Sodium Potassium Chloride Carbon Dioxide 31 H BUN Creatinine 0.4 L Glucose POC Glucose 112 H 172 H Lactic Acid Calcium Phosphorus Magnesium AST ALT Alkaline Phosphatase Ammonia Troponin T Total Protein Albumin Triglycerides HDL Cholesterol Lipase Arterial Blood Glucose Arterial Blood Ionized Calcium Acetaminophen Crossmatch 04/01/21 04/02/21 04/02/21 23:19 04:30 04:30 WBC 17.3 H RBC Hgb 8.7 L Hct 30.1 L MCV MCH 23 L MCHC 29 L RDW 22.4 H Plt Count 521 H Seg Neuts % (Manual) Lymphocytes % (Manual) Monocytes % (Manual) Nucleated RBC % Seg Neutrophils # Man Lymphocytes # (Manual) Monocytes # (Manual) INR APTT D-Dimer ABG pH POC ABG pCO2 POC ABG pO2 ABG pO2 ABG HCO3 ABG O2 Saturation ABG Base Excess ABG Hemoglobin ABG Oxyhemoglobin ABG Potassium ABG Chloride ABG Glucose Oxyhemoglobin Sodium Potassium Chloride Carbon Dioxide 33 H BUN Creatinine 0.4 L Glucose POC Glucose 112 H Lactic Acid Calcium Phosphorus Magnesium AST ALT Alkaline Phosphatase Ammonia Troponin T Total Protein Albumin Triglycerides HDL Cholesterol Lipase Arterial Blood Glucose Arterial Blood Ionized Calcium Acetaminophen Crossmatch 04/02/21 04/03/21 04/03/21 23:32 05:14 15:30 WBC 14.2 H RBC Hgb 9.6 L Hct MCV MCH 23 L MCHC 29 L RDW 23.4 H Plt Count 662 H Seg Neuts % (Manual) Lymphocytes % (Manual) Monocytes % (Manual) Nucleated RBC % Seg Neutrophils # Man Lymphocytes # (Manual) Monocytes # (Manual) INR APTT D-Dimer ABG pH POC ABG pCO2 POC ABG pO2 ABG pO2 ABG HCO3 ABG O2 Saturation ABG Base Excess ABG Hemoglobin ABG Oxyhemoglobin ABG Potassium ABG Chloride ABG Glucose Oxyhemoglobin Sodium Potassium Chloride Carbon Dioxide BUN Creatinine Glucose POC Glucose 112 H 118 H Lactic Acid Calcium Phosphorus Magnesium AST ALT Alkaline Phosphatase Ammonia Troponin T Total Protein Albumin Triglycerides HDL Cholesterol Lipase Arterial Blood Glucose Arterial Blood Ionized Calcium Acetaminophen Crossmatch 04/03/21 04/03/21 04/03/21 15:30 17:29 23:52 WBC RBC Hgb Hct MCV MCH MCHC RDW Plt Count Seg Neuts % (Manual) Lymphocytes % (Manual) Monocytes % (Manual) Nucleated RBC % Seg Neutrophils # Man Lymphocytes # (Manual) Monocytes # (Manual) INR APTT D-Dimer ABG pH POC ABG pCO2 POC ABG pO2 ABG pO2 ABG HCO3 ABG O2 Saturation ABG Base Excess ABG Hemoglobin ABG Oxyhemoglobin ABG Potassium ABG Chloride ABG Glucose Oxyhemoglobin Sodium Potassium Chloride Carbon Dioxide 35 H BUN Creatinine 0.4 L Glucose 163 H POC Glucose 157 H 66 L Lactic Acid Calcium Phosphorus Magnesium AST ALT Alkaline Phosphatase Ammonia Troponin T Total Protein Albumin Triglycerides HDL Cholesterol Lipase Arterial Blood Glucose Arterial Blood Ionized Calcium Acetaminophen Crossmatch 04/04/21 04/04/21 04/04/21 04:21 04:21 05:35 WBC 14.4 H RBC Hgb 9.9 L Hct MCV MCH 24 L MCHC RDW 23.0 H Plt Count 572 H Seg Neuts % (Manual) Lymphocytes % (Manual) Monocytes % (Manual) Nucleated RBC % Seg Neutrophils # Man Lymphocytes # (Manual) Monocytes # (Manual) INR APTT D-Dimer ABG pH POC ABG pCO2 POC ABG pO2 ABG pO2 ABG HCO3 ABG O2 Saturation ABG Base Excess ABG Hemoglobin ABG Oxyhemoglobin ABG Potassium ABG Chloride ABG Glucose Oxyhemoglobin Sodium 146 H Potassium Chloride 96.8 L Carbon Dioxide 35 H BUN Creatinine 0.4 L Glucose 111 H POC Glucose 124 H Lactic Acid Calcium Phosphorus Magnesium AST ALT Alkaline Phosphatase Ammonia Troponin T Total Protein Albumin Triglycerides HDL Cholesterol Lipase Arterial Blood Glucose Arterial Blood Ionized Calcium Acetaminophen Crossmatch 04/04/21 04/04/21 04/04/21 07:34 10:59 16:22 WBC RBC Hgb Hct MCV MCH MCHC RDW Plt Count Seg Neuts % (Manual) Lymphocytes % (Manual) Monocytes % (Manual) Nucleated RBC % Seg Neutrophils # Man Lymphocytes # (Manual) Monocytes # (Manual) INR APTT D-Dimer ABG pH POC ABG pCO2 POC ABG pO2 ABG pO2 ABG HCO3 ABG O2 Saturation ABG Base Excess ABG Hemoglobin ABG Oxyhemoglobin ABG Potassium ABG Chloride ABG Glucose Oxyhemoglobin Sodium Potassium Chloride Carbon Dioxide BUN Creatinine Glucose POC Glucose 116 H 152 H 191 H Lactic Acid Calcium Phosphorus Magnesium AST ALT Alkaline Phosphatase Ammonia Troponin T Total Protein Albumin Triglycerides HDL Cholesterol Lipase Arterial Blood Glucose Arterial Blood Ionized Calcium Acetaminophen Crossmatch 04/05/21 04/05/21 04/05/21 05:48 11:31 17:45 WBC RBC Hgb Hct MCV MCH MCHC RDW Plt Count Seg Neuts % (Manual) Lymphocytes % (Manual) Monocytes % (Manual) Nucleated RBC % Seg Neutrophils # Man Lymphocytes # (Manual) Monocytes # (Manual) INR APTT D-Dimer ABG pH POC ABG pCO2 POC ABG pO2 ABG pO2 ABG HCO3 ABG O2 Saturation ABG Base Excess ABG Hemoglobin ABG Oxyhemoglobin ABG Potassium ABG Chloride ABG Glucose Oxyhemoglobin Sodium Potassium Chloride Carbon Dioxide BUN Creatinine Glucose POC Glucose 133 H 167 H 181 H Lactic Acid Calcium Phosphorus Magnesium AST ALT Alkaline Phosphatase Ammonia Troponin T Total Protein Albumin Triglycerides HDL Cholesterol Lipase Arterial Blood Glucose Arterial Blood Ionized Calcium Acetaminophen Crossmatch 04/05/21 04/06/21 04/06/21 22:12 06:39 11:35 WBC RBC Hgb Hct MCV MCH MCHC RDW Plt Count Seg Neuts % (Manual) Lymphocytes % (Manual) Monocytes % (Manual) Nucleated RBC % Seg Neutrophils # Man Lymphocytes # (Manual) Monocytes # (Manual) INR APTT D-Dimer ABG pH POC ABG pCO2 POC ABG pO2 ABG pO2 ABG HCO3 ABG O2 Saturation ABG Base Excess ABG Hemoglobin ABG Oxyhemoglobin ABG Potassium ABG Chloride ABG Glucose Oxyhemoglobin Sodium Potassium Chloride Carbon Dioxide BUN Creatinine Glucose POC Glucose 129 H 151 H 165 H Lactic Acid Calcium Phosphorus Magnesium AST ALT Alkaline Phosphatase Ammonia Troponin T Total Protein Albumin Triglycerides HDL Cholesterol Lipase Arterial Blood Glucose Arterial Blood Ionized Calcium Acetaminophen Crossmatch 04/06/21 15:08 WBC RBC Hgb Hct MCV MCH MCHC RDW Plt Count Seg Neuts % (Manual) Lymphocytes % (Manual) Monocytes % (Manual) Nucleated RBC % Seg Neutrophils # Man Lymphocytes # (Manual) Monocytes # (Manual) INR APTT D-Dimer ABG pH POC ABG pCO2 POC ABG pO2 ABG pO2 ABG HCO3 ABG O2 Saturation ABG Base Excess ABG Hemoglobin ABG Oxyhemoglobin ABG Potassium ABG Chloride ABG Glucose Oxyhemoglobin Sodium Potassium Chloride Carbon Dioxide BUN Creatinine Glucose POC Glucose 202 H Lactic Acid Calcium Phosphorus Magnesium AST ALT Alkaline Phosphatase Ammonia Troponin T Total Protein Albumin Triglycerides HDL Cholesterol Lipase Arterial Blood Glucose Arterial Blood Ionized Calcium Acetaminophen Crossmatch
[2021-04-06] MEDS: VENLAFAXINE 25 MG TAB PO SCH (18:06)
[2021-04-07] MEDS: INSULIN LISPRO 100 UNIT/ML SUB-Q SCH ×4 (00:43→18:01)
[2021-04-07] MEDS: HEPARIN 5,000 UNIT/1 ML VIAL SUB-Q SCH ×3 (06:20→22:47)
[2021-04-07] MEDS: dilTIAZem 60 MG TAB FEEDTUBE SCH ×3 (06:21→22:46)
[2021-04-07] MEDS: ARFORMOTEROL 15 MCG/2 ML NEBU IH SCH ×2 (07:20→19:34)
[2021-04-07] MEDS: BUDESONIDE 0.5 MG/2 ML NEBU IH SCH ×2 (07:20→19:34)
[2021-04-07] MEDS: VENLAFAXINE 25 MG TAB PO SCH (10:25)
[2021-04-07] MEDS: predniSONE 5 MG TAB PO SCH (10:25)
[2021-04-07] MEDS: FAMOTIDINE 20 MG TAB FEEDTUBE SCH ×2 (10:25→22:46)
[2021-04-07] MEDS: DULoxetine 30 MG CAP PO SCH (10:30)
[2021-04-07] MEDS: METOPROLOL TARTRATE 25 MG TAB PO SCH ×2 (10:30→22:46)
[2021-04-07] MEDS: busPIRone 10 MG TAB PO SCH ×3 (10:30→22:46)
[2021-04-07] MEDS: clonazePAM 0.5 MG TAB PO SCH ×2 (10:30→22:46)
[2021-04-07] MEDS: DOCUSATE SODIUM 100 MG/10 ML ORAL LIQD PO SCH ×2 (10:31→22:46)
--- NOTE | 2021-04-07 11:15 | Progress Note ---
Assessment and Plan Acute combined hypoxic and hypercapnic respiratory failure COVID-19 PCR negative History of emphysema Microcytic anemia Lactic acidosis, Severe sepsis Tachycardia, sinus Reflex sinus tachycardia Echocardiogram July 2020 revealing normal left ventricular ejection fraction Recommendations: No cardiac intervention is needed. Continue metoprolol and Cardizem. Heart rate currently stable. Subjective Date of service: 04/07/21 Principal diagnosis: Atrial fibrillation with RVR, respiratory failure Objective Vital Signs Temp Pulse Pulse Pulse Resp Resp BP 04/07/21 10:30 89 133/72 04/07/21 08:00 98.8 F 04/07/21 07:25 88 20 139/70 04/07/21 07:20 88 20 04/07/21 06:30 20 129/75 04/07/21 06:21 97 H 129/75 04/07/21 06:00 78 22 109/67 04/07/21 05:30 101 H 26 H 109/67 04/07/21 05:00 94 H 18 118/73 04/07/21 04:30 91 H 21 118/73 04/07/21 04:00 98.8 F 79 76 17 118/73 04/07/21 03:44 81 16 124/72 04/07/21 03:30 76 16 124/72 04/07/21 03:00 75 16 124/72 04/07/21 02:30 73 17 115/67 04/07/21 02:00 72 19 115/67 04/07/21 01:30 69 16 136/79 04/07/21 01:00 89 24 145/83 04/07/21 00:30 82 21 145/83 04/07/21 00:00 98.8 F 90 76 22 126/74 04/06/21 23:30 102 H 15 126/74 04/06/21 23:00 85 18 122/70 04/06/21 22:30 83 16 126/74 04/06/21 22:00 90 17 129/73 04/06/21 21:37 97 H 129/73 04/06/21 21:36 97 H 129/73 04/06/21 21:30 86 13 129/73 04/06/21 21:00 86 14 129/75 04/06/21 20:30 89 17 129/75 04/06/21 20:00 98.7 F 92 H 76 20 141/78 04/06/21 19:30 86 20 141/78 04/06/21 19:00 97 H 22 119/60 04/06/21 18:55 93 H 19 141/78 04/06/21 18:51 98 H 16 119/60 04/06/21 18:30 88 19 119/60 04/06/21 18:00 79 20 119/60 04/06/21 17:30 79 20 122/67 04/06/21 17:00 85 19 132/68 04/06/21 16:30 81 17 132/68 04/06/21 16:00 98.7 F 80 76 20 132/68 04/06/21 15:30 76 22 150/54 04/06/21 15:00 84 16 128/60 04/06/21 14:30 74 20 128/60 04/06/21 14:00 78 16 128/60 04/06/21 13:44 80 129/74 04/06/21 13:30 79 17 129/74 04/06/21 13:00 81 17 129/74 04/06/21 12:30 69 15 149/56 04/06/21 12:00 98.3 F 65 74 18 134/64 04/06/21 11:30 72 16 134/64 Pulse Ox 04/07/21 10:30 04/07/21 08:00 04/07/21 07:25 100 04/07/21 07:20 100 04/07/21 06:30 99 04/07/21 06:21 04/07/21 06:00 98 04/07/21 05:30 93 04/07/21 05:00 100 04/07/21 04:30 100 04/07/21 04:00 100 04/07/21 03:44 100 04/07/21 03:30 100 04/07/21 03:00 100 04/07/21 02:30 100 04/07/21 02:00 100 04/07/21 01:30 100 04/07/21 01:00 98 04/07/21 00:30 100 04/07/21 00:00 100 04/06/21 23:30 100 04/06/21 23:00 100 04/06/21 22:30 100 04/06/21 22:00 100 04/06/21 21:37 04/06/21 21:36 04/06/21 21:30 100 04/06/21 21:00 100 04/06/21 20:30 100 04/06/21 20:00 100 04/06/21 19:30 99 04/06/21 19:00 96 04/06/21 18:55 98 04/06/21 18:51 97 04/06/21 18:30 97 04/06/21 18:00 100 04/06/21 17:30 99 04/06/21 17:00 99 04/06/21 16:30 98 04/06/21 16:00 99 04/06/21 15:30 99 04/06/21 15:00 97 04/06/21 14:30 98 04/06/21 14:00 99 04/06/21 13:44 04/06/21 13:30 99 04/06/21 13:00 97 04/06/21 12:30 99 04/06/21 12:00 97 04/06/21 11:30 99 - Physical Examination General: No Apparent Distress HEENT: Positive: PERRL, Normocephaly Neck: Positive: neck supple, trachea midline Cardiac: Positive: Reg Rate and Rhythm Lungs: Positive: No Wheeze, Rales, Rhonchi Neuro: Positive: Grossly Intact Abdomen: Positive: Soft Skin: Positive: Clear Extremities: Absent: edema
--- NOTE | 2021-04-07 13:10 | Progress Note ---
Assessment and Plan 60 y/o female with acute on chronic respiratory failure, SVT and HTN likely all related to anxiety and stress 04/07/21: Started new anti depressant, appreciate psych recs. Continue HFNC during the day and NIV at night. Home with hospice soon. 04/06/21 PSych to readdress meds. Tolerated the HFNC all day. Will attempt transfer to telemetry floor. 04/05/21: Will speak with psych. Continue to attempt to convince patient to wear HFNC and Bipap at night. Drop steroids 04/04/21: Saw first hand what patient is likely doing at home. Severe panic attacks. For record, klonopin is what I started her on as an outpatient and she did not tolerate it. I had her on 1 BID and per the patient and she was completely out of it. Need to find the right combo that allows her to be calm and awake and functional. Will drop steroids down tomorrow to 10 daily and monitor for signs of AI. Hold on GI consult for now for peg, spoke with over the phone to update him. Very very guarded to poor prognosis. 04/03/21: Oxygen requirement is acceptable for hospice. Awaiting Pysch recs for anxiety control. Ok with increasing Buspar. Hopeful home with hospice as early as today but more reasonable would be tomorrow or . 04/02/21: Patient has verbally expressed that she wants to go home and she wants to go home with home hospice. Patient is already on [facility] palliative service and can transition to hospice. Awaiting to see how much oxygen we are able to provide for patient. She should be able to be weaned to nasal cannula but await to hear back from [facility]. Per [facility] can do 50 liters and 50%. Patient currently on 40 and 50 with sat of 100. Await psych recommendations. 03/30/21: Currently still on bipap. No HFNC units available in the house. Transfused blood on yesterday. But no CBC checked today. Patient states that she is tired and has expressed this to several of the staff. She is currently on [facility] but my plan is to discuss hospice with her and her . Dropping steroids down starting tomorrow. Continue to wean Oxygen as tolerated. If possible keep in either ICU or step down over the weekend. 03/29/21: Currently on bipap. Good volumes and good sats. Still with some mild distress but stable. Will continue bipap therapy for now. Tomorrow will need to place psych consult if able to stay of the vent and weaned from continuous bipap to help us address anxiety and depression. IMS will likely want to transfuse PRBC's. Would give slowly if done. Discussed with [employer] WORKER and Bedside nurse, will restart precedex at low dose to help with anxiety. Will alert . 03/28/21: Continue PSV but she isnt ready for extubation today. Not able to tolerates PSV on yesterday so today is first real test. Dropped steroids to daily starting today. UOP is stable, but she is grossly positive. If oxygen requirement increases, check CXR and may need to consider lasix. Continue PSV for as long as possible today but definitely rest overnight. Guarded prognosis. May eventually need trach. 03/27/21: Monitor renal function and urine output closely. Not sure why K continues to be elevated despite daily correction therapy. Attempt PSV off fent but can continue precedex. Will see how patient looks tomorrow but still may not be a candidate for extubation. Drop steroids to daily starting tomorrow. 03/26/21: Continue daily PSV trials. Agree with my partner as I would like another trial of routine extubation before committing to trach. Discussed with family and patient at bedside this am. Continue solumedrol 40q12. IMS restarted buspar. WIll have psych see and evaluate to help with anxiety and depression once extubated. Guarded prognosis. 03/22/21: Please see event note for details. Planned to extubate today and wean steroids. 03/21/21: Echo given continued tachycardia despite adequate oxygenation. Can drop steroids to 40q8. 03/19/21: Continue sedation. Wean FiO2 for sats >88%. consider weaning steroid tomorrow. Follow up RUQ and trend LFT's 1. Wean Versed and place on Diprovan drip 2. Will give Fent 100 IV x1 now and order drip if needed for pain 3. Spoke with over the phone to get more history. Sounds like a panic attack not aborted by xanax therapy. Did check Tylenol level as patient has been in pain from fall 4. Elevated LFT's former drinker but confirms she has not been dr inking. Ordered RUQ ultrasound and need to repeat LFT's tomorrow 5. Reviewed cards note, and they do not want to treat tachycardia or elevated bp, likely needs more sedation Guarded prognosis CCT 31 minutes. Subjective Date of service: 04/07/21 Principal diagnosis: Atrial fibrillation with RVR, respiratory failure Interval history: no acute events. Still on bipap and alternating with HFNC Objective Vital Signs - 12hr 04/07/21 04/07/21 04/07/21 01:30 02:00 02:30 Temperature Pulse Rate 69 72 73 Pulse Rate [ Bilateral] Pulse Rate [ From Monitor] Respiratory 16 19 17 Rate Respiratory Rate [Bilateral ] Blood Pressure 136/79 115/67 115/67 O2 Sat by Pulse 100 100 100 Oximetry 04/07/21 04/07/21 04/07/21 03:00 03:30 03:44 Temperature Pulse Rate 75 76 81 Pulse Rate [ Bilateral] Pulse Rate [ From Monitor] Respiratory 16 16 16 Rate Respiratory Rate [Bilateral ] Blood Pressure 124/72 124/72 124/72 O2 Sat by Pulse 100 100 100 Oximetry 04/07/21 04/07/21 04/07/21 04:00 04:30 05:00 Temperature 98.8 F Pulse Rate 79 91 H 94 H Pulse Rate [ Bilateral] Pulse Rate [ 76 From Monitor] Respiratory 17 21 18 Rate Respiratory Rate [Bilateral ] Blood Pressure 118/73 118/73 118/73 O2 Sat by Pulse 100 100 100 Oximetry 04/07/21 04/07/21 04/07/21 05:30 06:00 06:21 Temperature Pulse Rate 101 H 78 97 H Pulse Rate [ Bilateral] Pulse Rate [ From Monitor] Respiratory 26 H 22 Rate Respiratory Rate [Bilateral ] Blood Pressure 109/67 109/67 129/75 O2 Sat by Pulse 93 98 Oximetry 04/07/21 04/07/21 04/07/21 06:30 07:00 07:20 Temperature Pulse Rate 82 Pulse Rate [ 88 Bilateral] Pulse Rate [ From Monitor] Respiratory 20 19 Rate Respiratory 20 Rate [Bilateral ] Blood Pressure 129/75 129/75 O2 Sat by Pulse 99 100 100 Oximetry 04/07/21 04/07/21 04/07/21 07:25 07:30 08:00 Temperature 98.8 F Pulse Rate 88 89 Pulse Rate [ Bilateral] Pulse Rate [ 80 From Monitor] Respiratory 20 23 21 Rate Respiratory Rate [Bilateral ] Blood Pressure 139/70 139/70 139/70 O2 Sat by Pulse 100 100 100 Oximetry 04/07/21 04/07/21 04/07/21 08:30 09:00 09:30 Temperature Pulse Rate 82 90 93 H Pulse Rate [ Bilateral] Pulse Rate [ From Monitor] Respiratory 18 17 16 Rate Respiratory Rate [Bilateral ] Blood Pressure 138/72 127/72 127/72 O2 Sat by Pulse 100 100 99 Oximetry 04/07/21 04/07/21 04/07/21 10:00 10:30 11:00 Temperature Pulse Rate 98 H 89 104 H Pulse Rate [ Bilateral] Pulse Rate [ From Monitor] Respiratory 16 15 16 Rate Respiratory Rate [Bilateral ] Blood Pressure 133/72 133/72 126/72 O2 Sat by Pulse 100 99 99 Oximetry 04/07/21 04/07/21 11:30 12:00 Temperature 98.5 F Pulse Rate 82 83 Pulse Rate [ Bilateral] Pulse Rate [ 85 From Monitor] Respiratory 19 17 Rate Respiratory Rate [Bilateral ] Blood Pressure 126/72 126/72 O2 Sat by Pulse 99 100 Oximetry Constitutional: other (moderate distress) Eyes: non-icteric ENT: oropharynx moist Neck: supple Effort: normal Ascultation: Bilateral: diminished breath sounds Cardiovascular: regular rate and rhythm (no mrg) Gastrointestinal: normoactive bowel sounds, soft, non-tender, non-distended Extremities: no cyanosis, no edema, pink and warm Neurologic: normal mental status, non-focal exam, pupils equal and round Psychiatric: mood appropriate, affect normal CBC and BMP: 04/04/21 04:21 04/04/21 04:21 ABG, PT/INR, D-dimer: ABG ABG pH 7.477 (7.320-7.450) H 03/24/21 08:57 POC ABG pCO2 56.9 mmHg (32.0-48.0) H 03/24/21 08:57 ABG pCO2 72.7 mm Hg 03/23/21 04:50 POC ABG pO2 100.6 mmHg (83-108) 03/24/21 08:57 ABG pO2 70.7 mm Hg (80.0-90.0) L 03/23/21 04:50 POC ABG HCO3 41.1 03/24/21 08:57 ABG O2 Saturation 98.3 (0-100) 03/24/21 08:57 PT/INR, D-dimer PT 12.6 Sec. (12.2-14.9) 03/17/21 17:37 INR 0.85 (0.87-1.13) L 03/17/21 17:37 D-Dimer 947.92 ng/mlDDU (0-234) H 03/17/21 17:37 Abnormal lab findings: Abnormal Labs 03/17/21 03/17/21 03/17/21 17:36 17:36 17:37 WBC 13.8 H RBC 3.48 L Hgb 7.0 L Hct 26.2 L MCV 75 L MCH 20 L MCHC 27 L RDW 25.4 H Plt Count Seg Neuts % (Manual) Lymphocytes % (Manual) Monocytes % (Manual) Nucleated RBC % 7.0 H Seg Neutrophils # Man 8.7 H Lymphocytes # (Manual) Monocytes # (Manual) INR 0.85 L APTT 23.3 L D-Dimer 947.92 H ABG pH POC ABG pCO2 POC ABG pO2 ABG pO2 ABG HCO3 ABG O2 Saturation ABG Base Excess ABG Hemoglobin ABG Oxyhemoglobin ABG Potassium ABG Chloride ABG Glucose Oxyhemoglobin Sodium Potassium Chloride 88.2 L Carbon Dioxide 38 H BUN Creatinine Glucose 129 H POC Glucose Lactic Acid Calcium Phosphorus Magnesium AST 177 H ALT 251 H Alkaline Phosphatase Ammonia Troponin T 0.036 H Total Protein 5.9 L Albumin 3.8 L Triglycerides 173 H HDL Cholesterol 73 H Lipase Arterial Blood Glucose Arterial Blood Ionized Calcium Acetaminophen Crossmatch 03/17/21 03/17/21 03/17/21 18:15 18:40 18:40 WBC RBC Hgb Hct MCV MCH MCHC RDW Plt Count Seg Neuts % (Manual) Lymphocytes % (Manual) Monocytes % (Manual) Nucleated RBC % Seg Neutrophils # Man Lymphocytes # (Manual) Monocytes # (Manual) INR APTT D-Dimer ABG pH POC ABG pCO2 POC ABG pO2 ABG pO2 94.4 H ABG HCO3 44.8 H ABG O2 Saturation ABG Base Excess 16.6 H ABG Hemoglobin ABG Oxyhemoglobin ABG Potassium ABG Chloride ABG Glucose Oxyhemoglobin Sodium Potassium Chloride Carbon Dioxide BUN Creatinine Glucose POC Glucose Lactic Acid 4.00 H* Calcium Phosphorus Magnesium AST ALT Alkaline Phosphatase Ammonia 116.0 H Troponin T Total Protein Albumin Triglycerides HDL Cholesterol Lipase Arterial Blood Glucose Arterial Blood Ionized Calcium Acetaminophen Crossmatch 03/17/21 03/18/21 03/18/21 23:36 00:25 23:07 WBC RBC Hgb Hct MCV MCH MCHC RDW Plt Count Seg Neuts % (Manual) Lymphocytes % (Manual) Monocytes % (Manual) Nucleated RBC % Seg Neutrophils # Man Lymphocytes # (Manual) Monocytes # (Manual) INR APTT D-Dimer ABG pH POC ABG pCO2 POC ABG pO2 ABG pO2 68.1 L ABG HCO3 40.2 H ABG O2 Saturation ABG Base Excess 14.4 H ABG Hemoglobin 6.5 L ABG Oxyhemoglobin ABG Potassium ABG Chloride ABG Glucose Oxyhemoglobin Sodium Potassium Chloride Carbon Dioxide BUN Creatinine Glucose POC Glucose Lactic Acid 4.00 H* Calcium Phosphorus Magnesium AST ALT Alkaline Phosphatase Ammonia Troponin T Total Protein Albumin Triglycerides HDL Cholesterol Lipase Arterial Blood Glucose Arterial Blood Ionized Calcium Acetaminophen 5.0 L Crossmatch 03/19/21 03/19/21 03/19/21 00:50 03:25 04:59 WBC RBC 3.43 L Hgb 7.0 L Hct 25.6 L MCV 75 L MCH 20 L MCHC 27 L RDW 25.6 H Plt Count Seg Neuts % (Manual) 91.0 H Lymphocytes % (Manual) Monocytes % (Manual) 9.0 H Nucleated RBC % 3.0 H Seg Neutrophils # Man 9.0 H Lymphocytes # (Manual) 0.0 L Monocytes # (Manual) INR APTT D-Dimer ABG pH 7.531 H POC ABG pCO2 POC ABG pO2 ABG pO2 49.6 L ABG HCO3 31.4 H ABG O2 Saturation 99.6 H ABG Base Excess 8.1 H ABG Hemoglobin 7.2 L ABG Oxyhemoglobin ABG Potassium ABG Chloride ABG Glucose Oxyhemoglobin Sodium Potassium Chloride Carbon Dioxide BUN Creatinine Glucose POC Glucose 127 H Lactic Acid Calcium Phosphorus Magnesium AST ALT Alkaline Phosphatase Ammonia Troponin T Total Protein Albumin Triglycerides HDL Cholesterol Lipase Arterial Blood Glucose Arterial Blood Ionized Calcium Acetaminophen Crossmatch 03/19/21 03/19/21 03/19/21 04:59 10:37 12:00 WBC RBC Hgb Hct MCV MCH MCHC RDW Plt Count Seg Neuts % (Manual) Lymphocytes % (Manual) Monocytes % (Manual) Nucleated RBC % Seg Neutrophils # Man Lymphocytes # (Manual) Monocytes # (Manual) INR APTT D-Dimer ABG pH 7.494 H POC ABG pCO2 POC ABG pO2 ABG pO2 107.3 H ABG HCO3 31.6 H ABG O2 Saturation ABG Base Excess 7.7 H ABG Hemoglobin 7.1 L ABG Oxyhemoglobin ABG Potassium ABG Chloride ABG Glucose Oxyhemoglobin Sodium Potassium Chloride 89.5 L Carbon Dioxide BUN Creatinine Glucose 121 H POC Glucose Lactic Acid Calcium Phosphorus Magnesium AST 359 H ALT 1434 H Alkaline Phosphatase Ammonia Troponin T Total Protein 5.7 L Albumin 3.5 L Triglycerides HDL Cholesterol Lipase Arterial Blood Glucose Arterial Blood Ionized Calcium Acetaminophen Crossmatch 03/19/21 03/19/21 03/19/21 12:05 17:52 23:23 WBC RBC Hgb Hct MCV MCH MCHC RDW Plt Count Seg Neuts % (Manual) Lymphocytes % (Manual) Monocytes % (Manual) Nucleated RBC % Seg Neutrophils # [place] Lymphocytes # (Manual) Monocytes # (Manual) INR APTT D-Dimer ABG pH POC ABG pCO2 POC ABG pO2 ABG pO2 ABG HCO3 ABG O2 Saturation ABG Base Excess ABG Hemoglobin ABG Oxyhemoglobin ABG Potassium ABG Chloride ABG Glucose Oxyhemoglobin Sodium Potassium Chloride Carbon Dioxide BUN Creatinine Glucose POC Glucose 122 H 114 H 187 H Lactic Acid Calcium Phosphorus Magnesium AST ALT Alkaline Phosphatase Ammonia Troponin T Total Protein Albumin Triglycerides HDL Cholesterol Lipase Arterial Blood Glucose Arterial Blood Ionized Calcium Acetaminophen Crossmatch 03/19/21 03/20/21 03/20/21 Unknown 03:50 03:57 WBC RBC Hgb Hct MCV MCH MCHC RDW Plt Count Seg Neuts % (Manual) Lymphocytes % (Manual) Monocytes % (Manual) Nucleated RBC % Seg Neutrophils # Man Lymphocytes # (Manual) Monocytes # (Manual) INR APTT D-Dimer ABG pH 7.477 H POC ABG pCO2 POC ABG pO2 ABG pO2 67.9 L ABG HCO3 33.9 H ABG O2 Saturation ABG Base Excess 9.5 H ABG Hemoglobin 6.7 L ABG Oxyhemoglobin ABG Potassium ABG Chloride ABG Glucose Oxyhemoglobin Sodium Potassium Chloride Carbon Dioxide BUN Creatinine Glucose POC Glucose 247 H Lactic Acid Calcium Phosphorus Magnesium AST ALT Alkaline Phosphatase Ammonia Troponin T Total Protein Albumin Triglycerides HDL Cholesterol Lipase 12 L Arterial Blood Glucose Arterial Blood Ionized Calcium Acetaminophen Crossmatch 03/20/21 03/20/21 03/20/21 04:18 04:18 10:16 WBC RBC 3.48 L Hgb 7.0 L Hct 25.3 L MCV 73 L MCH 20 L MCHC 28 L RDW 25.2 H Plt Count 541 H Seg Neuts % (Manual) Lymphocytes % (Manual) Monocytes % (Manual) Nucleated RBC % Seg Neutrophils # Man Lymphocytes # (Manual) Monocytes # (Manual) INR APTT D-Dimer ABG pH POC ABG pCO2 POC ABG pO2 ABG pO2 63.3 L ABG HCO3 34.0 H ABG O2 Saturation 90.0 L ABG Base Excess 7.9 H ABG Hemoglobin 10.5 L ABG Oxyhemoglobin ABG Potassium ABG Chloride ABG Glucose Oxyhemoglobin 88.1 L Sodium Potassium Chloride 91.6 L Carbon Dioxide BUN 22 H Creatinine Glucose 245 H POC Glucose Lactic Acid Calcium Phosphorus Magnesium AST 148 H ALT 1096 H Alkaline Phosphatase 133 H Ammonia Troponin T Total Protein Albumin 3.5 L Triglycerides HDL Cholesterol Lipase Arterial Blood Glucose Arterial Blood Ionized Calcium Acetaminophen Crossmatch 03/20/21 03/20/21 03/21/21 12:05 17:26 00:18 WBC RBC Hgb Hct MCV MCH MCHC RDW Plt Count Seg Neuts % (Manual) Lymphocytes % (Manual) Monocytes % (Manual) Nucleated RBC % Seg Neutrophils # Man Lymphocytes # (Manual) Monocytes # (Manual) INR APTT D-Dimer ABG pH POC ABG pCO2 POC ABG pO2 ABG pO2 ABG HCO3 ABG O2 Saturation ABG Base Excess ABG Hemoglobin ABG Oxyhemoglobin ABG Potassium ABG Chloride ABG Glucose Oxyhemoglobin Sodium Potassium Chloride Carbon Dioxide BUN Creatinine Glucose POC Glucose 226 H 215 H 323 H Lactic Acid Calcium Phosphorus Magnesium AST ALT Alkaline Phosphatase Ammonia Troponin T Total Protein Albumin Triglycerides HDL Cholesterol Lipase Arterial Blood Glucose Arterial Blood Ionized Calcium Acetaminophen Crossmatch 03/21/21 03/21/21 03/21/21 04:00 05:05 09:28 WBC 12.0 H RBC 3.42 L Hgb 6.8 L Hct 25.3 L MCV 74 L MCH 20 L MCHC 27 L RDW 25.1 H Plt Count 650 H Seg Neuts % (Manual) Lymphocytes % (Manual) Monocytes % (Manual) Nucleated RBC % Seg Neutrophils # Man Lymphocytes # (Manual) Monocytes # (Manual) INR APTT D-Dimer ABG pH 7.348 L POC ABG pCO2 POC ABG pO2 ABG pO2 56.3 L ABG HCO3 36.9 H ABG O2 Saturation 83.4 L ABG Base Excess 10.0 H ABG Hemoglobin 7.0 L ABG Oxyhemoglobin ABG Potassium ABG Chloride ABG Glucose Oxyhemoglobin 81.7 L Sodium Potassium Chloride Carbon Dioxide BUN Creatinine Glucose POC Glucose 311 H Lactic Acid Calcium Phosphorus Magnesium AST ALT Alkaline Phosphatase Ammonia Troponin T Total Protein Albumin Triglycerides HDL Cholesterol Lipase Arterial Blood Glucose Arterial Blood Ionized Calcium Acetaminophen Crossmatch 03/21/21 03/21/21 03/21/21 09:28 12:31 14:08 WBC RBC Hgb Hct MCV MCH MCHC RDW Plt Count Seg Neuts % (Manual) Lymphocytes % (Manual) Monocytes % (Manual) Nucleated RBC % Seg Neutrophils # Man Lymphocytes # (Manual) Monocytes # (Manual) INR APTT D-Dimer ABG pH POC ABG pCO2 POC ABG pO2 ABG pO2 ABG HCO3 ABG O2 Saturation ABG Base Excess ABG Hemoglobin ABG Oxyhemoglobin ABG Potassium ABG Chloride ABG Glucose Oxyhemoglobin Sodium Potassium 5.1 H D Chloride 94.4 L Carbon Dioxide 33 H BUN 32 H Creatinine Glucose 319 H POC Glucose 295 H Lactic Acid Calcium Phosphorus Magnesium 2.40 H AST ALT 697 H Alkaline Phosphatase 134 H Ammonia Troponin T Total Protein 5.8 L Albumin 3.4 L Triglycerides HDL Cholesterol Lipase Arterial Blood Glucose Arterial Blood Ionized Calcium Acetaminophen Crossmatch See Detail 03/22/21 03/22/21 03/22/21 00:14 04:30 04:39 WBC RBC Hgb Hct MCV MCH MCHC RDW Plt Count Seg Neuts % (Manual) Lymphocytes % (Manual) Monocytes % (Manual) Nucleated RBC % Seg Neutrophils # Man Lymphocytes # (Manual) Monocytes # (Manual) INR APTT D-Dimer ABG pH 7.310 L POC ABG pCO2 POC ABG pO2 ABG pO2 65.4 L ABG HCO3 38.3 H ABG O2 Saturation 90.8 L ABG Base Excess 10.9 H ABG Hemoglobin 6.4 L ABG Oxyhemoglobin ABG Potassium ABG Chloride ABG Glucose Oxyhemoglobin 88.7 L Sodium Potassium Chloride Carbon Dioxide BUN Creatinine Glucose POC Glucose 326 H Lactic Acid Calcium Phosphorus Magnesium AST ALT Alkaline Phosphatase Ammonia Troponin T Total Protein Albumin Triglycerides 189 H HDL Cholesterol Lipase Arterial Blood Glucose Arterial Blood Ionized Calcium Acetaminophen Crossmatch 03/22/21 03/22/21 03/22/21 04:39 04:39 09:45 WBC 12.8 H RBC 3.34 L Hgb 6.6 L Hct 24.5 L MCV 73 L MCH 20 L MCHC 27 L RDW 25.5 H Plt Count 644 H Seg Neuts % (Manual) Lymphocytes % (Manual) Monocytes % (Manual) Nucleated RBC % Seg Neutrophils # Man Lymphocytes # (Manual) Monocytes # (Manual) INR APTT D-Dimer ABG pH POC ABG pCO2 65.7 H POC ABG pO2 59.7 L ABG pO2 ABG HCO3 ABG O2 Saturation ABG Base Excess ABG Hemoglobin 8.0 L ABG Oxyhemoglobin 86.3 L ABG Potassium 4.7 H ABG Chloride 94.0 L ABG Glucose 208 H Oxyhemoglobin Sodium Potassium 5.3 H Chloride 94.6 L Carbon Dioxide 34 H BUN 33 H Creatinine Glucose 291 H POC Glucose Lactic Acid Calcium Phosphorus Magnesium AST ALT Alkaline Phosphatase Ammonia Troponin T Total Protein Albumin Triglycerides HDL Cholesterol Lipase Arterial Blood Glucose 208 H Arterial Blood Ionized Calcium Acetaminophen Crossmatch 03/22/21 03/22/21 03/23/21 21:33 23:58 04:42 WBC 14.3 H RBC 3.63 L Hgb 7.6 L Hct 27.0 L MCV 74 L MCH 21 L MCHC 28 L RDW 23.1 H Plt Count 567 H Seg Neuts % (Manual) Lymphocytes % (Manual) Monocytes % (Manual) Nucleated RBC % Seg Neutrophils # Man Lymphocytes # (Manual) Monocytes # (Manual) INR APTT D-Dimer ABG pH POC ABG pCO2 POC ABG pO2 ABG pO2 ABG HCO3 ABG O2 Saturation ABG Base Excess ABG Hemoglobin ABG Oxyhemoglobin ABG Potassium ABG Chloride ABG Glucose Oxyhemoglobin Sodium Potassium Chloride Carbon Dioxide BUN Creatinine Glucose POC Glucose 170 H 156 H Lactic Acid Calcium Phosphorus Magnesium AST ALT Alkaline Phosphatase Ammonia Troponin T Total Protein Albumin Triglycerides HDL Cholesterol Lipase Arterial Blood Glucose Arterial Blood Ionized Calcium Acetaminophen Crossmatch 03/23/21 03/23/21 03/23/21 04:42 04:50 22:25 WBC RBC Hgb Hct MCV MCH MCHC RDW Plt Count Seg Neuts % (Manual) Lymphocytes % (Manual) Monocytes % (Manual) Nucleated RBC % Seg Neutrophils # Man Lymphocytes # (Manual) Monocytes # (Manual) INR APTT D-Dimer ABG pH POC ABG pCO2 POC ABG pO2 ABG pO2 70.7 L ABG HCO3 41.7 H ABG O2 Saturation ABG Base Excess 15.2 H ABG Hemoglobin 5.6 L ABG Oxyhemoglobin ABG Potassium ABG Chloride ABG Glucose Oxyhemoglobin Sodium Potassium Chloride 94.6 L Carbon Dioxide 37 H BUN 27 H Creatinine Glucose 311 H POC Glucose 295 H Lactic Acid Calcium Phosphorus Magnesium AST ALT Alkaline Phosphatase Ammonia Troponin T Total Protein Albumin Triglycerides HDL Cholesterol Lipase Arterial Blood Glucose Arterial Blood Ionized Calcium Acetaminophen Crossmatch 03/23/21 03/24/21 03/24/21 23:13 05:13 07:59 WBC RBC Hgb Hct MCV MCH MCHC RDW Plt Count Seg Neuts % (Manual) Lymphocytes % (Manual) Monocytes % (Manual) Nucleated RBC % Seg Neutrophils # Man Lymphocytes # (Manual) Monocytes # (Manual) INR APTT D-Dimer ABG pH POC ABG pCO2 POC ABG pO2 ABG pO2 ABG HCO3 ABG O2 Saturation ABG Base Excess ABG Hemoglobin ABG Oxyhemoglobin ABG Potassium ABG Chloride ABG Glucose Oxyhemoglobin Sodium Potassium Chloride Carbon Dioxide BUN Creatinine Glucose POC Glucose 336 H 303 H 333 H Lactic Acid Calcium Phosphorus Magnesium AST ALT Alkaline Phosphatase Ammonia Troponin T Total Protein Albumin Triglycerides HDL Cholesterol Lipase Arterial Blood Glucose Arterial Blood Ionized Calcium Acetaminophen Crossmatch 03/24/21 03/24/21 03/24/21 08:03 08:03 08:57 WBC 12.7 H RBC 3.48 L Hgb 7.3 L Hct 26.3 L MCV 76 L MCH 21 L MCHC 28 L RDW 24.1 H Plt Count 499 H Seg Neuts % (Manual) Lymphocytes % (Manual) 1.0 L Monocytes % (Manual) 16.0 H Nucleated RBC % 11.0 H Seg Neutrophils # Man 8.1 H Lymphocytes # (Manual) 0.1 L Monocytes # (Manual) 2.1 H INR APTT D-Dimer ABG pH 7.477 H POC ABG pCO2 56.9 H POC ABG pO2 ABG pO2 ABG HCO3 ABG O2 Saturation ABG Base Excess ABG Hemoglobin 8.0 L ABG Oxyhemoglobin ABG Potassium ABG Chloride 93.0 L ABG Glucose 328 H Oxyhemoglobin Sodium Potassium Chloride 94.4 L Carbon Dioxide 38 H BUN 26 H Creatinine 0.5 L Glucose 348 H POC Glucose Lactic Acid Calcium Phosphorus Magnesium AST ALT Alkaline Phosphatase Ammonia Troponin T Total Protein Albumin Triglycerides HDL Cholesterol Lipase Arterial Blood Glucose 328 H Arterial Blood Ionized Calcium 4.5 L Acetaminophen Crossmatch 03/24/21 03/24/21 03/25/21 12:14 17:45 04:00 WBC 15.8 H RBC Hgb 7.5 L Hct 27.4 L MCV 75 L MCH 21 L MCHC 28 L RDW 24.0 H Plt Count 576 H Seg Neuts % (Manual) Lymphocytes % (Manual) Monocytes % (Manual) Nucleated RBC % Seg Neutrophils # Man Lymphocytes # (Manual) Monocytes # (Manual) INR APTT D-Dimer ABG pH POC ABG pCO2 POC ABG pO2 ABG pO2 ABG HCO3 ABG O2 Saturation ABG Base Excess ABG Hemoglobin ABG Oxyhemoglobin ABG Potassium ABG Chloride ABG Glucose Oxyhemoglobin Sodium Potassium Chloride Carbon Dioxide BUN Creatinine Glucose POC Glucose 315 H 324 H Lactic Acid Calcium Phosphorus Magnesium AST ALT Alkaline Phosphatase Ammonia Troponin T Total Protein Albumin Triglycerides HDL Cholesterol Lipase Arterial Blood Glucose Arterial Blood Ionized Calcium Acetaminophen Crossmatch 03/25/21 03/25/21 03/25/21 07:52 16:37 17:38 WBC RBC Hgb Hct MCV MCH MCHC RDW Plt Count Seg Neuts % (Manual) Lymphocytes % (Manual) Monocytes % (Manual) Nucleated RBC % Seg Neutrophils # Man Lymphocytes # (Manual) Monocytes # (Manual) INR APTT D-Dimer ABG pH POC ABG pCO2 POC ABG pO2 ABG pO2 ABG HCO3 ABG O2 Saturation ABG Base Excess ABG Hemoglobin ABG Oxyhemoglobin ABG Potassium ABG Chloride ABG Glucose Oxyhemoglobin Sodium Potassium Chloride 95.9 L Carbon Dioxide 33 H BUN 24 H Creatinine 0.4 L Glucose 289 H POC Glucose 321 H 295 H Lactic Acid Calcium Phosphorus Magnesium AST ALT Alkaline Phosphatase Ammonia Troponin T Total Protein Albumin Triglycerides HDL Cholesterol Lipase Arterial Blood Glucose Arterial Blood Ionized Calcium Acetaminophen Crossmatch 03/25/21 03/26/21 03/26/21 23:27 05:07 05:35 WBC 20.0 H RBC 3.37 L Hgb 7.0 L Hct 25.2 L MCV 75 L MCH 21 L MCHC 28 L RDW 24.0 H Plt Count 544 H Seg Neuts % (Manual) 72.0 H Lymphocytes % (Manual) 6.0 L Monocytes % (Manual) 8.0 H Nucleated RBC % Seg Neutrophils # Man 14.4 H Lymphocytes # (Manual) Monocytes # (Manual) 1.6 H INR APTT D-Dimer ABG pH POC ABG pCO2 POC ABG pO2 ABG pO2 ABG HCO3 ABG O2 Saturation ABG Base Excess ABG Hemoglobin ABG Oxyhemoglobin ABG Potassium ABG Chloride ABG Glucose Oxyhemoglobin Sodium Potassium Chloride Carbon Dioxide BUN Creatinine Glucose POC Glucose 231 H 200 H Lactic Acid Calcium Phosphorus Magnesium AST ALT Alkaline Phosphatase Ammonia Troponin T Total Protein Albumin Triglycerides HDL Cholesterol Lipase Arterial Blood Glucose Arterial Blood Ionized Calcium Acetaminophen Crossmatch 03/26/21 03/26/21 03/26/21 05:35 10:33 12:12 WBC RBC Hgb Hct MCV MCH MCHC RDW Plt Count Seg Neuts % (Manual) Lymphocytes % (Manual) Monocytes % (Manual) Nucleated RBC % Seg Neutrophils # Man Lymphocytes # (Manual) Monocytes # (Manual) INR APTT D-Dimer ABG pH POC ABG pCO2 POC ABG pO2 ABG pO2 ABG HCO3 ABG O2 Saturation ABG Base Excess ABG Hemoglobin ABG Oxyhemoglobin ABG Potassium ABG Chloride ABG Glucose Oxyhemoglobin Sodium Potassium 5.9 H D Chloride 91.9 L Carbon Dioxide 33 H BUN 20 H Creatinine 0.4 L Glucose 197 H POC Glucose 132 H 176 H Lactic Acid Calcium Phosphorus Magnesium AST ALT 169 H Alkaline Phosphatase 138 H Ammonia Troponin T Total Protein 5.5 L Albumin 3.2 L Triglycerides HDL Cholesterol Lipase Arterial Blood Glucose Arterial Blood Ionized Calcium Acetaminophen Crossmatch 03/26/21 03/26/21 03/26/21 16:50 18:06 22:19 WBC RBC Hgb Hct MCV MCH MCHC RDW Plt Count Seg Neuts % (Manual) Lymphocytes % (Manual) Monocytes % (Manual) Nucleated RBC % Seg Neutrophils # Man Lymphocytes # (Manual) Monocytes # (Manual) INR APTT D-Dimer ABG pH POC ABG pCO2 POC ABG pO2 ABG pO2 ABG HCO3 ABG O2 Saturation ABG Base Excess ABG Hemoglobin ABG Oxyhemoglobin ABG Potassium ABG Chloride ABG Glucose Oxyhemoglobin Sodium Potassium 5.2 H Chloride 91.7 L Carbon Dioxide 38 H BUN 19 H Creatinine 0.4 L Glucose 260 H POC Glucose 248 H 168 H Lactic Acid Calcium Phosphorus Magnesium AST ALT Alkaline Phosphatase Ammonia Troponin T Total Protein Albumin Triglycerides HDL Cholesterol Lipase Arterial Blood Glucose Arterial Blood Ionized Calcium Acetaminophen Crossmatch 03/27/21 03/27/21 03/27/21 01:02 01:32 04:15 WBC 21.4 H RBC 3.45 L Hgb 6.9 L Hct 26.2 L MCV 76 L MCH 20 L MCHC 27 L RDW 24.5 H Plt Count 500 H Seg Neuts % (Manual) Lymphocytes % (Manual) Monocytes % (Manual) Nucleated RBC % Seg Neutrophils # Man Lymphocytes # (Manual) Monocytes # (Manual) INR APTT D-Dimer ABG pH POC ABG pCO2 POC ABG pO2 ABG pO2 ABG HCO3 ABG O2 Saturation ABG Base Excess ABG Hemoglobin ABG Oxyhemoglobin ABG Potassium ABG Chloride ABG Glucose Oxyhemoglobin Sodium Potassium Chloride Carbon Dioxide BUN Creatinine Glucose POC Glucose 219 H 221 H Lactic Acid Calcium Phosphorus Magnesium AST ALT Alkaline Phosphatase Ammonia Troponin T Total Protein Albumin Triglycerides HDL Cholesterol Lipase Arterial Blood Glucose Arterial Blood Ionized Calcium Acetaminophen Crossmatch 03/27/21 03/27/21 03/27/21 04:15 06:37 11:21 WBC RBC Hgb Hct MCV MCH MCHC RDW Plt Count Seg Neuts % (Manual) Lymphocytes % (Manual) Monocytes % (Manual) Nucleated RBC % Seg Neutrophils # Man Lymphocytes # (Manual) Monocytes # (Manual) INR APTT D-Dimer ABG pH POC ABG pCO2 POC ABG pO2 ABG pO2 ABG HCO3 ABG O2 Saturation ABG Base Excess ABG Hemoglobin ABG Oxyhemoglobin ABG Potassium ABG Chloride ABG Glucose Oxyhemoglobin Sodium Potassium 5.3 H Chloride 94.4 L Carbon Dioxide 35 H BUN 20 H Creatinine 0.4 L Glucose 310 H POC Glucose 312 H 273 H Lactic Acid Calcium 8.3 L Phosphorus 4.60 H D Magnesium AST ALT Alkaline Phosphatase Ammonia Troponin T Total Protein Albumin Triglycerides HDL Cholesterol Lipase Arterial Blood Glucose Arterial Blood Ionized Calcium Acetaminophen Crossmatch 03/27/21 03/27/21 03/28/21 16:14 21:21 00:16 WBC RBC Hgb Hct MCV MCH MCHC RDW Plt Count Seg Neuts % (Manual) Lymphocytes % (Manual) Monocytes % (Manual) Nucleated RBC % Seg Neutrophils # Man Lymphocytes # (Manual) Monocytes # (Manual) INR APTT D-Dimer ABG pH POC ABG pCO2 POC ABG pO2 ABG pO2 ABG HCO3 ABG O2 Saturation ABG Base Excess ABG Hemoglobin ABG Oxyhemoglobin ABG Potassium ABG Chloride ABG Glucose Oxyhemoglobin Sodium Potassium Chloride Carbon Dioxide BUN Creatinine Glucose POC Glucose 241 H 179 H 160 H Lactic Acid Calcium Phosphorus Magnesium AST ALT Alkaline Phosphatase Ammonia Troponin T Total Protein Albumin Triglycerides HDL Cholesterol Lipase Arterial Blood Glucose Arterial Blood Ionized Calcium Acetaminophen Crossmatch 03/28/21 03/28/21 03/28/21 04:00 04:00 05:41 WBC 27.1 H RBC 3.46 L Hgb 7.1 L Hct 26.1 L MCV 76 L MCH 20 L MCHC 27 L RDW 24.0 H Plt Count 541 H Seg Neuts % (Manual) Lymphocytes % (Manual) Monocytes % (Manual) Nucleated RBC % Seg Neutrophils # Man Lymphocytes # (Manual) Monocytes # (Manual) INR APTT D-Dimer ABG pH POC ABG pCO2 POC ABG pO2 ABG pO2 ABG HCO3 ABG O2 Saturation ABG Base Excess ABG Hemoglobin ABG Oxyhemoglobin ABG Potassium ABG Chloride ABG Glucose Oxyhemoglobin Sodium Potassium Chloride 95.7 L Carbon Dioxide 36 H BUN 23 H Creatinine 0.4 L Glucose 295 H POC Glucose 279 H Lactic Acid Calcium Phosphorus Magnesium AST ALT Alkaline Phosphatase Ammonia Troponin T Total Protein Albumin Triglycerides HDL Cholesterol Lipase Arterial Blood Glucose Arterial Blood Ionized Calcium Acetaminophen Crossmatch 03/28/21 03/28/21 03/28/21 11:50 16:45 23:15 WBC RBC Hgb Hct MCV MCH MCHC RDW Plt Count Seg Neuts % (Manual) Lymphocytes % (Manual) Monocytes % (Manual) Nucleated RBC % Seg Neutrophils # Man Lymphocytes # (Manual) Monocytes # (Manual) INR APTT D-Dimer ABG pH POC ABG pCO2 POC ABG pO2 ABG pO2 ABG HCO3 ABG O2 Saturation ABG Base Excess ABG Hemoglobin ABG Oxyhemoglobin ABG Potassium ABG Chloride ABG Glucose Oxyhemoglobin Sodium Potassium Chloride Carbon Dioxide BUN Creatinine Glucose POC Glucose 233 H 240 H 189 H Lactic Acid Calcium Phosphorus Magnesium AST ALT Alkaline Phosphatase Ammonia Troponin T Total Protein Albumin Triglycerides HDL Cholesterol Lipase Arterial Blood Glucose Arterial Blood Ionized Calcium Acetaminophen Crossmatch 03/29/21 03/29/21 03/29/21 04:35 04:35 05:05 WBC 29.6 H RBC 3.18 L Hgb 6.7 L Hct 24.2 L MCV 76 L MCH 21 L MCHC 28 L RDW 24.0 H Plt Count 678 H Seg Neuts % (Manual) Lymphocytes % (Manual) Monocytes % (Manual) Nucleated RBC % Seg Neutrophils # Man Lymphocytes # (Manual) Monocytes # (Manual) INR APTT D-Dimer ABG pH POC ABG pCO2 POC ABG pO2 ABG pO2 ABG HCO3 ABG O2 Saturation ABG Base Excess ABG Hemoglobin ABG Oxyhemoglobin ABG Potassium ABG Chloride ABG Glucose Oxyhemoglobin Sodium Potassium Chloride 95.4 L Carbon Dioxide 37 H BUN 22 H Creatinine 0.4 L Glucose 194 H POC Glucose 195 H Lactic Acid Calcium Phosphorus Magnesium AST ALT Alkaline Phosphatase Ammonia Troponin T Total Protein Albumin Triglycerides HDL Cholesterol Lipase Arterial Blood Glucose Arterial Blood Ionized Calcium Acetaminophen Crossmatch 03/29/21 03/29/21 03/29/21 09:24 10:58 17:14 WBC RBC Hgb Hct MCV MCH MCHC RDW Plt Count Seg Neuts % (Manual) Lymphocytes % (Manual) Monocytes % (Manual) Nucleated RBC % Seg Neutrophils # Man Lymphocytes # (Manual) Monocytes # (Manual) INR APTT D-Dimer ABG pH POC ABG pCO2 POC ABG pO2 ABG pO2 ABG HCO3 ABG O2 Saturation ABG Base Excess ABG Hemoglobin ABG Oxyhemoglobin ABG Potassium ABG Chloride ABG Glucose Oxyhemoglobin Sodium Potassium Chloride Carbon Dioxide BUN Creatinine Glucose POC Glucose 106 H 117 H Lactic Acid Calcium Phosphorus Magnesium AST ALT Alkaline Phosphatase Ammonia Troponin T Total Protein Albumin Triglycerides HDL Cholesterol Lipase Arterial Blood Glucose Arterial Blood Ionized Calcium Acetaminophen Crossmatch See Detail 03/29/21 03/29/21 03/30/21 19:32 23:36 01:49 WBC 25.1 H RBC Hgb 9.3 L Hct MCV 77 L MCH 23 L MCHC RDW 22.7 H Plt Count 599 H Seg Neuts % (Manual) Lymphocytes % (Manual) Monocytes % (Manual) Nucleated RBC % Seg Neutrophils # Man Lymphocytes # (Manual) Monocytes # (Manual) INR APTT D-Dimer ABG pH POC ABG pCO2 POC ABG pO2 ABG pO2 ABG HCO3 ABG O2 Saturation ABG Base Excess ABG Hemoglobin ABG Oxyhemoglobin ABG Potassium ABG Chloride ABG Glucose Oxyhemoglobin Sodium Potassium Chloride Carbon Dioxide BUN Creatinine Glucose POC Glucose 57 L 55 L Lactic Acid Calcium Phosphorus Magnesium AST ALT Alkaline Phosphatase Ammonia Troponin T Total Protein Albumin Triglycerides HDL Cholesterol Lipase Arterial Blood Glucose Arterial Blood Ionized Calcium Acetaminophen Crossmatch 03/30/21 03/30/21 03/30/21 04:00 15:52 18:07 WBC RBC Hgb Hct MCV MCH MCHC RDW Plt Count Seg Neuts % (Manual) Lymphocytes % (Manual) Monocytes % (Manual) Nucleated RBC % Seg Neutrophils # Man Lymphocytes # (Manual) Monocytes # (Manual) INR APTT D-Dimer ABG pH POC ABG pCO2 POC ABG pO2 ABG pO2 ABG HCO3 ABG O2 Saturation ABG Base Excess ABG Hemoglobin ABG Oxyhemoglobin ABG Potassium ABG Chloride ABG Glucose Oxyhemoglobin Sodium Potassium Chloride 93.4 L Carbon Dioxide 34 H BUN 18 H Creatinine 0.3 L Glucose 114 H POC Glucose 112 H 130 H Lactic Acid Calcium Phosphorus 4.70 H Magnesium AST ALT Alkaline Phosphatase Ammonia Troponin T Total Protein Albumin Triglycerides HDL Cholesterol Lipase Arterial Blood Glucose Arterial Blood Ionized Calcium Acetaminophen Crossmatch 03/30/21 03/31/21 03/31/21 23:26 04:41 04:41 WBC 30.8 H RBC Hgb 9.3 L Hct MCV MCH 23 L MCHC 28 L RDW 22.3 H Plt Count 642 H Seg Neuts % (Manual) Lymphocytes % (Manual) Monocytes % (Manual) Nucleated RBC % Seg Neutrophils # Man Lymphocytes # (Manual) Monocytes # (Manual) INR APTT D-Dimer ABG pH POC ABG pCO2 POC ABG pO2 ABG pO2 ABG HCO3 ABG O2 Saturation ABG Base Excess ABG Hemoglobin ABG Oxyhemoglobin ABG Potassium ABG Chloride ABG Glucose Oxyhemoglobin Sodium Potassium Chloride 96.3 L Carbon Dioxide 34 H BUN Creatinine 0.3 L Glucose POC Glucose 124 H Lactic Acid Calcium Phosphorus Magnesium AST ALT Alkaline Phosphatase Ammonia Troponin T Total Protein Albumin Triglycerides HDL Cholesterol Lipase Arterial Blood Glucose Arterial Blood Ionized Calcium Acetaminophen Crossmatch 03/31/21 04/01/21 04/01/21 17:45 00:17 04:27 WBC 20.2 H RBC Hgb 9.1 L Hct MCV MCH 23 L MCHC 28 L RDW 22.3 H Plt Count 454 H Seg Neuts % (Manual) Lymphocytes % (Manual) Monocytes % (Manual) Nucleated RBC % Seg Neutrophils # Man Lymphocytes # (Manual) Monocytes # (Manual) INR APTT D-Dimer ABG pH POC ABG pCO2 POC ABG pO2 ABG pO2 ABG HCO3 ABG O2 Saturation ABG Base Excess ABG Hemoglobin ABG Oxyhemoglobin ABG Potassium ABG Chloride ABG Glucose Oxyhemoglobin Sodium Potassium Chloride Carbon Dioxide BUN Creatinine Glucose POC Glucose 130 H 108 H Lactic Acid Calcium Phosphorus Magnesium AST ALT Alkaline Phosphatase Ammonia Troponin T Total Protein Albumin Triglycerides HDL Cholesterol Lipase Arterial Blood Glucose Arterial Blood Ionized Calcium Acetaminophen Crossmatch 04/01/21 04/01/21 04/01/21 04:27 11:56 16:19 WBC RBC Hgb Hct MCV MCH MCHC RDW Plt Count Seg Neuts % (Manual) Lymphocytes % (Manual) Monocytes % (Manual) Nucleated RBC % Seg Neutrophils # Man Lymphocytes # (Manual) Monocytes # (Manual) INR APTT D-Dimer ABG pH POC ABG pCO2 POC ABG pO2 ABG pO2 ABG HCO3 ABG O2 Saturation ABG Base Excess ABG Hemoglobin ABG Oxyhemoglobin ABG Potassium ABG Chloride ABG Glucose Oxyhemoglobin Sodium Potassium Chloride Carbon Dioxide 31 H BUN Creatinine 0.4 L Glucose POC Glucose 112 H 172 H Lactic Acid Calcium Phosphorus Magnesium AST ALT Alkaline Phosphatase Ammonia Troponin T Total Protein Albumin Triglycerides HDL Cholesterol Lipase Arterial Blood Glucose Arterial Blood Ionized Calcium Acetaminophen Crossmatch 04/01/21 04/02/21 04/02/21 23:19 04:30 04:30 WBC 17.3 H RBC Hgb 8.7 L Hct 30.1 L MCV MCH 23 L MCHC 29 L RDW 22.4 H Plt Count 521 H Seg Neuts % (Manual) Lymphocytes % (Manual) Monocytes % (Manual) Nucleated RBC % Seg Neutrophils # Man Lymphocytes # (Manual) Monocytes # (Manual) INR APTT D-Dimer ABG pH POC ABG pCO2 POC ABG pO2 ABG pO2 ABG HCO3 ABG O2 Saturation ABG Base Excess ABG Hemoglobin ABG Oxyhemoglobin ABG Potassium ABG Chloride ABG Glucose Oxyhemoglobin Sodium Potassium Chloride Carbon Dioxide 33 H BUN Creatinine 0.4 L Glucose POC Glucose 112 H Lactic Acid Calcium Phosphorus Magnesium AST ALT Alkaline Phosphatase Ammonia Troponin T Total Protein Albumin Triglycerides HDL Cholesterol Lipase Arterial Blood Glucose Arterial Blood Ionized Calcium Acetaminophen Crossmatch 04/02/21 04/03/21 04/03/21 23:32 05:14 15:30 WBC 14.2 H RBC Hgb 9.6 L Hct MCV MCH 23 L MCHC 29 L RDW 23.4 H Plt Count 662 H Seg Neuts % (Manual) Lymphocytes % (Manual) Monocytes % (Manual) Nucleated RBC % Seg Neutrophils # Man Lymphocytes # (Manual) Monocytes # (Manual) INR APTT D-Dimer ABG pH POC ABG pCO2 POC ABG pO2 ABG pO2 ABG HCO3 ABG O2 Saturation ABG Base Excess ABG Hemoglobin ABG Oxyhemoglobin ABG Potassium ABG Chloride ABG Glucose Oxyhemoglobin Sodium Potassium Chloride Carbon Dioxide BUN Creatinine Glucose POC Glucose 112 H 118 H Lactic Acid Calcium Phosphorus Magnesium AST ALT Alkaline Phosphatase Ammonia Troponin T Total Protein Albumin Triglycerides HDL Cholesterol Lipase Arterial Blood Glucose Arterial Blood Ionized Calcium Acetaminophen Crossmatch 04/03/21 04/03/21 04/03/21 15:30 17:29 23:52 WBC RBC Hgb Hct MCV MCH MCHC RDW Plt Count Seg Neuts % (Manual) Lymphocytes % (Manual) Monocytes % (Manual) Nucleated RBC % Seg Neutrophils # Man Lymphocytes # (Manual) Monocytes # (Manual) INR APTT D-Dimer ABG pH POC ABG pCO2 POC ABG pO2 ABG pO2 ABG HCO3 ABG O2 Saturation ABG Base Excess ABG Hemoglobin ABG Oxyhemoglobin ABG Potassium ABG Chloride ABG Glucose Oxyhemoglobin Sodium Potassium Chloride Carbon Dioxide 35 H BUN Creatinine 0.4 L Glucose 163 H POC Glucose 157 H 66 L Lactic Acid Calcium Phosphorus Magnesium AST ALT Alkaline Phosphatase Ammonia Troponin T Total Protein Albumin Triglycerides HDL Cholesterol Lipase Arterial Blood Glucose Arterial Blood Ionized Calcium Acetaminophen Crossmatch 04/04/21 04/04/21 04/04/21 04:21 04:21 05:35 WBC 14.4 H RBC Hgb 9.9 L Hct MCV MCH 24 L MCHC RDW 23.0 H Plt Count 572 H Seg Neuts % (Manual) Lymphocytes % (Manual) Monocytes % (Manual) Nucleated RBC % Seg Neutrophils # Man Lymphocytes # (Manual) Monocytes # (Manual) INR APTT D-Dimer ABG pH POC ABG pCO2 POC ABG pO2 ABG pO2 ABG HCO3 ABG O2 Saturation ABG Base Excess ABG Hemoglobin ABG Oxyhemoglobin ABG Potassium ABG Chloride ABG Glucose Oxyhemoglobin Sodium 146 H Potassium Chloride 96.8 L Carbon Dioxide 35 H BUN Creatinine 0.4 L Glucose 111 H POC Glucose 124 H Lactic Acid Calcium Phosphorus Magnesium AST ALT Alkaline Phosphatase Ammonia Troponin T Total Protein Albumin Triglycerides HDL Cholesterol Lipase Arterial Blood Glucose Arterial Blood Ionized Calcium Acetaminophen Crossmatch 04/04/21 04/04/21 04/04/21 07:34 10:59 16:22 WBC RBC Hgb Hct MCV MCH MCHC RDW Plt Count Seg Neuts % (Manual) Lymphocytes % (Manual) Monocytes % (Manual) Nucleated RBC % Seg Neutrophils # Man Lymphocytes # (Manual) Monocytes # (Manual) INR APTT D-Dimer ABG pH POC ABG pCO2 POC ABG pO2 ABG pO2 ABG HCO3 ABG O2 Saturation ABG Base Excess ABG Hemoglobin ABG Oxyhemoglobin ABG Potassium ABG Chloride ABG Glucose Oxyhemoglobin Sodium Potassium Chloride Carbon Dioxide BUN Creatinine Glucose POC Glucose 116 H 152 H 191 H Lactic Acid Calcium Phosphorus Magnesium AST ALT Alkaline Phosphatase Ammonia Troponin T Total Protein Albumin Triglycerides HDL Cholesterol Lipase Arterial Blood Glucose Arterial Blood Ionized Calcium Acetaminophen Crossmatch 04/05/21 04/05/21 04/05/21 05:48 11:31 17:45 WBC RBC Hgb Hct MCV MCH MCHC RDW Plt Count Seg Neuts % (Manual) Lymphocytes % (Manual) Monocytes % (Manual) Nucleated RBC % Seg Neutrophils # Man Lymphocytes # (Manual) Monocytes # (Manual) INR APTT D-Dimer ABG pH POC ABG pCO2 POC ABG pO2 ABG pO2 ABG HCO3 ABG O2 Saturation ABG Base Excess ABG Hemoglobin ABG Oxyhemoglobin ABG Potassium ABG Chloride ABG Glucose Oxyhemoglobin Sodium Potassium Chloride Carbon Dioxide BUN Creatinine Glucose POC Glucose 133 H 167 H 181 H Lactic Acid Calcium Phosphorus Magnesium AST ALT Alkaline Phosphatase Ammonia Troponin T Total Protein Albumin Triglycerides HDL Cholesterol Lipase Arterial Blood Glucose Arterial Blood Ionized Calcium Acetaminophen Crossmatch 04/05/21 04/06/21 04/06/21 22:12 06:39 11:35 WBC RBC Hgb Hct MCV MCH MCHC RDW Plt Count Seg Neuts % (Manual) Lymphocytes % (Manual) Monocytes % (Manual) Nucleated RBC % Seg Neutrophils # Man Lymphocytes # (Manual) Monocytes # (Manual) INR APTT D-Dimer ABG pH POC ABG pCO2 POC ABG pO2 ABG pO2 ABG HCO3 ABG O2 Saturation ABG Base Excess ABG Hemoglobin ABG Oxyhemoglobin ABG Potassium ABG Chloride ABG Glucose Oxyhemoglobin Sodium Potassium Chloride Carbon Dioxide BUN Creatinine Glucose POC Glucose 129 H 151 H 165 H Lactic Acid Calcium Phosphorus Magnesium AST ALT Alkaline Phosphatase Ammonia Troponin T Total Protein Albumin Triglycerides HDL Cholesterol Lipase Arterial Blood Glucose Arterial Blood Ionized Calcium Acetaminophen Crossmatch 04/06/21 04/06/21 04/07/21 15:08 18:02 00:42 WBC RBC Hgb Hct MCV MCH MCHC RDW Plt Count Seg Neuts % (Manual) Lymphocytes % (Manual) Monocytes % (Manual) Nucleated RBC % Seg Neutrophils # Man Lymphocytes # (Manual) Monocytes # (Manual) INR APTT D-Dimer ABG pH POC ABG pCO2 POC ABG pO2 ABG pO2 ABG HCO3 ABG O2 Saturation ABG Base Excess ABG Hemoglobin ABG Oxyhemoglobin ABG Potassium ABG Chloride ABG Glucose Oxyhemoglobin Sodium Potassium Chloride Carbon Dioxide BUN Creatinine Glucose POC Glucose 202 H 140 H 150 H Lactic Acid Calcium Phosphorus Magnesium AST ALT Alkaline Phosphatase Ammonia Troponin T Total Protein Albumin Triglycerides HDL Cholesterol Lipase Arterial Blood Glucose Arterial Blood Ionized Calcium Acetaminophen Crossmatch 04/07/21 04/07/21 05:43 11:29 WBC RBC Hgb Hct MCV MCH MCHC RDW Plt Count Seg Neuts % (Manual) Lymphocytes % (Manual) Monocytes % (Manual) Nucleated RBC % Seg Neutrophils # Man Lymphocytes # (Manual) Monocytes # (Manual) INR APTT D-Dimer ABG pH POC ABG pCO2 POC ABG pO2 ABG pO2 ABG HCO3 ABG O2 Saturation ABG Base Excess ABG Hemoglobin ABG Oxyhemoglobin ABG Potassium ABG Chloride ABG Glucose Oxyhemoglobin Sodium Potassium Chloride Carbon Dioxide BUN Creatinine Glucose POC Glucose 168 H 150 H Lactic Acid Calcium Phosphorus Magnesium AST ALT Alkaline Phosphatase Ammonia Troponin T Total Protein Albumin Triglycerides HDL Cholesterol Lipase Arterial Blood Glucose Arterial Blood Ionized Calcium Acetaminophen Crossmatch
--- NOTE | 2021-04-07 13:14 | Progress Note ---
Assessment and Plan Assessment and plan: Interval history: This is a 60-year-old female with COPD with oxygen dependence currently with palliative care, DM, former nicotine abuse, severe anxiety, GERD, HLD, HTN and PAGE presented to emergency department on 03/17 via EMS with complaints of shortness of breath. On arrival of EMS patient was found to be in SVT with a heart rate of about 200 and blood pressure to be quite elevated with systolic in 200s. She was given 6 mg of adenosine without significant changes subsequently given 12 mg of adenosine with improvement of her heart rate. Upon arrival to the emergency department patient was found to be in atrial fibrillation with RVR and dyspneic. Work-up in the emergency department revealed leukocytosis, lactic acidosis, transaminitis, hypoalbuminemia and a troponin leak. CXR, CT a chest and CT head were unremarkable. Patient was admitted to the hospitalist service with consults to [facility] and cardiology for further work-up of acute on chronic respiratory failure, SVT and hypertensive urgency. Hospital Course to date: 03/18/2021: Patient is intubated and on vent support, Patient is in sinus tachycardia 03/19: COVID-19 PCR negative, remains on ventilatory support, Versed drip changed to propofol. No acute events reported overnight. Tracheal aspirate w ith few gram-positive Cocci. This afternoon, patient went in to the 150s, giving 500 mL NS bolus and fentanyl push to see if it pain related. If persists then will order prn Ativan per Dr. Gage recommendation. 03/20: Restarted on home metoprolol and abdominal ultrasound showed right hydronephrosis. Abd US shows right hydroureteronephrosis and will obtain a dedicated renal US. She seems to more comfortable on propofol and fentanyl 03/21: Patient's FiO2 had to be decreased overnight due to hypoxia and tachycardia. Hyperkalemia noted and given Kayexalate. 1 unit PRBC for hemoglobin 6.8. [facility] plans to extubate tomorrow. Increase in Lantus. 03/22: Transfuse one unit prbc, failed SBT in the AM d/t hypertension. [facility] extubated the patient but she was reintubated within [address] head ordered and pending read. Given kionex x2 for hyperkalemia 03/23: This morning patient was only on Precedex drip and overnight she had agitation, hypertension and tachycardia. RN instructed to place fentanyl drip. Increase in Lantus for better glucose control. Will remove Wallis today. 03/24/2021: no acute events reported overnight. Patient remains intubated and is currently on fentanyl and Precedex. Increase in Lantus due to hyperglycemia. 03/25: no acute events overnight. increase in lantus and decreased steroids today. 04/02: Bipap q hs and optiflow in the AM, remains on precedex. Psych consulted today. 04/03: Patient failed swallow evaluation today and ST recommended PEG tube placement. NG tube was replaced yesterday and tube feeds changed to cyclic feedings today given she was BiPAP overnight. Psych consulted. Likely DC tomorrow or . 04/04: Patient has long standing anxiety history. Needs medication optimization. May uptitrate buspar. PCCM stated that patient did not tolerate klonopin as an OP. Currently working to taper steroids. No GI consult at this time for PEG as PCCM d/w . Will continue to work with CM for hospice placement. 04/05: Klonopin unfortunately not effective in this patient. Awaiting psych input/eval for today. Will continue to work towards hospice placement with CM. 04/06: On hi flow 35/50. comfortable on my encounter. Effexor added by psychiatry. Will work towards hospice placement with CM. 04/07: Placed on bipap, has been on since this am. comfortable on my encounter. Will await pulm recs. Pending hospice placement by CM. Assessment and plan: Neuro: Hepatic/metabolic encephalopathy, h/o severe anxiety, depression -Admit ammonia 116, 03/09 ammonia 26 -Precedex gtt -xanax, ativan, haldol and morphine prn -Buspar increased dose today on hopes to wean of precedex; home cymbalta on hold (cannot crush) -Psych consulted, started on effexor 25 mg po daily - on buspar -Avoid delirium -Maintain sleep-wake cycle -SAT when appropriate -CT head on admit with no acute findings -Repeat CT head d/t AMS-> no acute changes Cardio: Hypertensive emergency (resolved), s/p A. fib with RVR and SVT, h/o HTN, HLD -s/p X2 doses of adenosine in the ED -Cardiology consulted, appreciate recommendations -PO metoprolol BID -Resume home statin -Blood pressure monitoring per protocol -Echocardiogram 10/2020 showed EF of 50 to 55%, mild diastolic dysfunction, trace to mild tricuspid regurgitation, mild pulmonary hypertension, RVSP 45 mmHg Resp : Acute on chronic respiratory failure, h/o COPD and PAGE -CCM consulted, appreciate recommendations -CTA chest shows no CT evidence of pulmonary embolism, small right and trace left pleural effusion, upper lobe predominant emphysema -Intubated on 03/17 with 7.00 ETT at 20 at the lips and extubated 03/22 but re intubated shortly after; Self-extubated on 03/29 -weaned to BiPAP q hs, Optiflow in AM -VAP bundle -SPO2 monitoring -Methylprednisone weaning-> PO will be slow wean -nebs per [facility] GI: Transaminitis (resolving), h/o chronic constipation -NTR consulted, appreciate recommendations -RUQ US shows right hydroureteronephrosis and possible gallbladder sludge or gallstones -Renal ultrasound shows mild right-sided hydronephrosis with parenchymal thinning and trace perinephric fluid. -need to follow up outpatient -PPI -BR: senakot S and colace, prn mom -BM 04/01 -24 hours +1632 mL -Failed bedside swallow eval -NGT reinserted and TF changed to cyclic; ST recommends PEG : Mild right hydroureteronephrosis -Trend BMP -FWF with TF -stop D51/2 NS when TF resumed -Strict I & Os -Wallis -Renal ultrasound shows mild right-sided hydronephrosis with parenchymal thinning and trace perinephric fluid. Endo: h/o DM -Avoid hypoglycemia -SSI -Accucheck q 6hrs -Lantus -titrate as needed Heme: Anemia, Leukocytosis, h/o Microcytic anemia -Trend CBC -Transfuse for hbg <7 -s/p 2 unit PRBCs -SCDs to BLE while in bed -Lovenox subq ID: Gram positive cocci in tracheal aspirate -02/25 tracheal aspirate with few gram-positive cocci -s/p Levaquin (03/18-) -Trend WBC and fever curve -Repeat blood cultures and sputum culture NGTD -Trend WBC and fever curve The high probability of a clinically significant, sudden or life threatening deterioration of the [pulm/cv] system(s) required my full and direct attention, intervention and personal management. The aggregate critical care time was [60] minutes. This time is in addition to time spent performing reported procedures but includes the following: [x] Data Review and interpretation [x] Patient assessment and monitoring of vital signs [x] Documentation [x] Medication orders and management Disposition Plan: IMCU Total Time Spent with Patient (Minutes): 60 History Interval history: On bipap this AM. No ovenright events otherwise. Hospitalist Physical - Physical exam Narrative exam: General appearance: Present: no acute distress, obese - EENT Eyes: Present: PERRL, EOM intact ENT: hearing intact, clear oral mucosa, dentition normal - Neck Neck: Present: normal ROM - Respiratory Respiratory effort: normal Respiratory: bilateral: diminished - Cardiovascular Rhythm: regular Heart Sounds: Present: S1 & S2. Absent: systolic murmur, diastolic murmur - Extremities Extremities: no ischemia, pulses intact, pulses symmetrical, normal temperature, normal color Peripheral Pulses: within normal limits - Abdominal General gastrointestinal: soft, non-tender, non-distended, normal bowel sounds - Integumentary Integumentary: Present: warm, dry - Psychiatric Psychiatric: cooperative, agitated - Neurologic Neurologic: CNII-XII intact, no focal deficits, moves all extremities - Constitutional Vitals: Temp Pulse Resp BP Pulse Ox 98.5 F 85 18 126/72 98 04/07/21 12:00 04/07/21 12:00 04/07/21 12:00 04/07/21 12:00 04/07/21 12:00 General appearance: Present: no acute distress, obese HEART Score - HEART Score Troponin: Troponin T < 0.010 ng/mL (0.00-0.029) 03/29/21 09:24 Results - Labs CBC & Chem 7: 04/04/21 04:21 04/04/21 04:21 Labs: Laboratory Last Values WBC 14.4 K/mm3 (4.5-11.0) H 04/04/21 04:21 RBC 4.13 M/mm3 (3.65-5.03) 04/04/21 04:21 Hgb 9.9 gm/dl (10.1-14.3) L 04/04/21 04:21 Hct 33.2 % (30.3-42.9) 04/04/21 04:21 MCV 80 fl (79-97) 04/04/21 04:21 MCH 24 pg (28-32) L 04/04/21 04:21 MCHC 30 % (30-34) 04/04/21 04:21 RDW 23.0 % (13.2-15.2) H 04/04/21 04:21 Plt Count 572 K/mm3 (140-440) H 04/04/21 04:21 Boyd % (Auto) Advertising Representative 03/24/21 08:03 Add Manual Diff Complete 03/26/21 05:35 Total Counted 100 03/26/21 05:35 Seg Neuts % (Manual) 72.0 % (40.0-70.0) H 03/26/21 05:35 Band Neutrophils % 5.0 % 03/26/21 05:35 Lymphocytes % (Manual) 6.0 % (13.4-35.0) L 03/26/21 05:35 Reactive Lymphs % (Man) 5.0 % 03/19/21 04:59 Monocytes % (Manual) 8.0 % (0.0-7.3) H 03/26/21 05:35 Metamyelocytes % 3.0 % 03/26/21 05:35 Myelocytes % 5.0 % 03/26/21 05:35 Promyelocytes % 1.0 % 03/26/21 05:35 Nucleated RBC % Not Reportable 03/26/21 05:35 Seg Neutrophils # Man 14.4 K/mm3 (1.8-7.7) H 03/26/21 05:35 Band Neutrophils # 1.0 K/mm3 03/26/21 05:35 Lymphocytes # (Manual) 1.2 K/mm3 (1.2-5.4) 03/26/21 05:35 Abs React Lymphs (Man) 0.0 K/mm3 03/26/21 05:35 Monocytes # (Manual) 1.6 K/mm3 (0.0-0.8) H 03/26/21 05:35 Eosinophils # (Manual) 0.0 K/mm3 (0.0-0.4) 03/26/21 05:35 Basophils # (Manual) 0.0 K/mm3 (0.0-0.1) 03/26/21 05:35 Metamyelocytes # 0.6 K/mm3 03/26/21 05:35 Myelocytes # 1.0 K/mm3 03/26/21 05:35 Promyelocytes # 0.2 K/mm3 03/26/21 05:35 Blast Cells # 0.0 K/mm3 03/26/21 05:35 WBC Morphology Not Reportable 03/26/21 05:35 Hypersegmented Neuts Not Reportable 03/26/21 05:35 Hyposegmented Neuts Not Reportable 03/26/21 05:35 Hypogranular Neuts Not Reportable 03/26/21 05:35 Smudge Cells Not Reportable 03/26/21 05:35 Toxic Granulation Not Reportable 03/26/21 05:35 Toxic Vacuolation Not Reportable 03/26/21 05:35 Dohle Bodies Not Reportable 03/26/21 05:35 Pelger-Huet Anomaly Not Reportable 03/26/21 05:35 Florentino Rods Not Reportable 03/26/21 05:35 Platelet Estimate Consistent w auto 03/26/21 05:35 Clumped Platelets Not Reportable 03/26/21 05:35 Plt Clumps, EDTA Not Reportable 03/26/21 05:35 Large Platelets 1+ 03/26/21 05:35 Giant Platelets Not Reportable 03/26/21 05:35 Platelet Satelliting Not Reportable 03/26/21 05:35 Plt Morphology Comment Not Reportable 03/26/21 05:35 RBC Morphology Not Reportable 03/26/21 05:35 Dimorphic RBCs Not Reportable 03/26/21 05:35 Polychromasia 1+ 03/26/21 05:35 Hypochromasia 2+ 03/26/21 05:35 Poikilocytosis 1+ 03/26/21 05:35 Anisocytosis 2+ 03/26/21 05:35 Microcytosis Not Reportable 03/26/21 05:35 Macrocytosis Not Reportable 03/26/21 05:35 Spherocytes Not Reportable 03/26/21 05:35 Pappenheimer Bodies Not Reportable 03/26/21 05:35 Sickle Cells Not Reportable 03/26/21 05:35 Target Cells 1+ 03/26/21 05:35 Tear Drop Cells 1+ 03/26/21 05:35 Ovalocytes Not Reportable 03/26/21 05:35 Stomatocytes 1+ 03/26/21 05:35 Helmet Cells Not Reportable 03/26/21 05:35 [place] Bodies Not Reportable 03/26/21 05:35 [place] Rings Not Reportable 03/26/21 05:35 Marcelo Cells Not Reportable 03/26/21 05:35 Bite Cells Not Reportable 03/26/21 05:35 Crenated Cell Not Reportable 03/26/21 05:35 Elliptocytes Not Reportable 03/26/21 05:35 Acanthocytes (Spur) Not Reportable 03/26/21 05:35 Rouleaux Not Reportable 03/26/21 05:35 Hemoglobin C Crystals Not Reportable 03/26/21 05:35 Schistocytes 1+ 03/26/21 05:35 Malaria parasites Not Reportable 03/26/21 05:35 Maykel Bodies Not Reportable 03/26/21 05:35 Hem Pathologist Commnt No 03/26/21 05:35 PT 12.6 Sec. (12.2-14.9) 03/17/21 17:37 INR 0.85 (0.87-1.13) L 03/17/21 17:37 APTT 23.3 Sec. (24.2-36.6) L 03/17/21 17:37 D-Dimer 947.92 ng/mlDDU (0-234) H 03/17/21 17:37 ABG pH 7.477 (7.320-7.450) H 03/24/21 08:57 POC ABG pCO2 56.9 mmHg (32.0-48.0) H 03/24/21 08:57 ABG pCO2 72.7 mm Hg 03/23/21 04:50 POC ABG pO2 100.6 mmHg (83-108) 03/24/21 08:57 ABG pO2 70.7 mm Hg (80.0-90.0) L 03/23/21 04:50 POC ABG HCO3 41.1 03/24/21 08:57 ABG HCO3 41.7 mmol/L (20.0-26.0) H 03/23/21 04:50 ABG O2 Saturation 98.3 (0-100) 03/24/21 08:57 ABG O2 Content 7.8 (0.0-44) 03/23/21 04:50 POC ABG Base Excess 15.8 03/24/21 08:57 ABG Base Excess 15.2 mmol/L (-2.0-3.0) H 03/23/21 04:50 ABG Hemoglobin 8.0 (12.0-17.5) L 03/24/21 08:57 ABG Oxyhemoglobin 96.8 (94-98) 03/24/21 08:57 ABG Carboxyhemoglobin 1.7 % (0.0-5.0) 03/23/21 04:50 ABG Methemoglobin 0.3 (0.0-1.5) 03/24/21 08:57 ABG Sodium 139.1 mmol/L (136.0-145.0) 03/24/21 08:57 ABG Potassium 3.9 mmol/L (3.40-4.50) 03/24/21 08:57 ABG Chloride 93.0 mmol/L (98-107) L 03/24/21 08:57 ABG Glucose 328 mg/dL (65-95) H 03/24/21 08:57 Oxyhemoglobin 96.9 % (95.0-99.0) 03/23/21 04:50 Carboxyhemoglobin 1.2 (0.5-1.5) 03/24/21 08:57 FiO2 40 % 03/23/21 04:50 FiO2 % 40 03/24/21 08:57 Sodium 146 mmol/L (137-145) H 04/04/21 04:21 Potassium 4.1 mmol/L (3.6-5.0) 04/04/21 04:21 Chloride 96.8 mmol/L (98-107) L 04/04/21 04:21 Carbon Dioxide 35 mmol/L (22-30) H 04/04/21 04:21 Anion Gap 18 mmol/L 04/04/21 04:21 BUN 9 mg/dL (7-17) 04/04/21 04:21 Creatinine 0.4 mg/dL (0.6-1.2) L 04/04/21 04:21 Estimated GFR > 60 ml/min 04/04/21 04:21 BUN/Creatinine Ratio 23 % 04/04/21 04:21 Glucose 111 mg/dL (65-100) H 04/04/21 04:21 POC Glucose 150 mg/dL (70-105) H 04/07/21 11:29 Lactic Acid 4.00 mmol/L (0.7-2.0) H* 03/17/21 23:36 Calcium 9.5 mg/dL (8.4-10.2) 04/04/21 04:21 Phosphorus 4.50 mg/dL (2.5-4.5) 03/31/21 04:41 Magnesium 2.20 mg/dL (1.7-2.3) 03/31/21 04:41 Total Bilirubin 0.30 mg/dL (0.1-1.2) 03/26/21 05:35 Direct Bilirubin < 0.2 mg/dL (0-0.2) 03/19/21 12:00 Indirect Bilirubin 0.1 mg/dL 03/19/21 12:00 AST 35 units/L (5-40) 03/26/21 05:35 ALT 169 units/L (7-56) H 03/26/21 05:35 Alkaline Phosphatase 138 units/L (35-129) H 03/26/21 05:35 Ammonia 26.0 umol/L (25-60) 03/19/21 12:00 Total Creatine Kinase 123 units/L (30-135) 03/29/21 09:24 CK-MB (CK-2) 1.5 ng/mL (0.0-4.0) 03/29/21 09:24 CK-MB (CK-2) Rel Index 1.2 (0-4) 03/29/21 09:24 Troponin T < 0.010 ng/mL (0.00-0.029) 03/29/21 09:24 NT-Pro-B Natriuret Pep 576.0 pg/mL (0-900) 03/17/21 17:36 Total Protein 5.5 g/dL (6.3-8.2) L 03/26/21 05:35 Albumin 3.2 g/dL (3.9-5) L 03/26/21 05:35 Albumin/Globulin Ratio 1.4 % 03/26/21 05:35 Triglycerides 189 mg/dL (2-149) H 03/22/21 04:39 Cholesterol 191 mg/dL (50-199) 03/17/21 17:36 LDL Cholesterol Direct 80 mg/dL (50-130) 03/17/21 17:36 HDL Cholesterol 73 mg/dL (40-59) H 03/17/21 17:36 Cholesterol/HDL Ratio 2.61 % 03/17/21 17:36 Amylase 78 units/L (27-131) 03/19/21 Unknown Lipase 12 units/L (13-60) L 03/19/21 Unknown TSH 3.510 mlU/mL (0.270-4.200) 03/17/21 22:57 Arterial Blood Glucose 328 mg/dL (65-95) H 03/24/21 08:57 Arterial Blood Ionized Calcium 4.5 mg/dL (4.6-5.3) L 03/24/21 08:57 Urine Color Mayuri (Yellow) 03/17/21 19:42 Urine Turbidity Slightly-cloudy (Clear) 03/17/21 19:42 Urine pH 7.0 (5.0-7.0) 03/17/21 19:42 Ur Specific Earle 1.015 (1.003-1.030) 03/17/21 19:42 Urine Protein 100 mg/dl mg/dL (Negative) 03/17/21 19:42 Urine Glucose (UA) Neg mg/dL (Negative) 03/17/21 19:42 Urine Ketones 20 mg/dL (Negative) 03/17/21 19:42 Urine Blood Sm (Negative) 03/17/21 19:42 Urine Nitrite Neg (Negative) 03/17/21 19:42 Urine Bilirubin Neg (Negative) 03/17/21 19:42 Urine Urobilinogen 2.0 mg/dL (<2.0) 03/17/21 19:42 Ur Leukocyte Esterase Neg (Negative) 03/17/21 19:42 Urine WBC (Auto) 4.0 /HPF (0.0-6.0) 03/17/21 19:42 Urine RBC (Auto) 6.0 /HPF (0.0-6.0) 03/17/21 19:42 U Epithel Cells (Auto) 5.0 /HPF (0-13.0) 03/17/21 19:42 Urine Bacteria (Auto) 1+ /HPF (Negative) 03/17/21 19:42 Urine Mucus 1+ /HPF 03/17/21 19:42 Urine Yeast (Budding) Few /HPF 03/17/21 19:42 Acetaminophen 5.0 ug/mL (10.0-30.0) L 03/18/21 23:07 Coronavirus (PCR) Negative (Negative) 03/19/21 Unknown Blood Type A POSITIVE 03/29/21 09:24 Antibody Screen Negative 03/29/21 09:24 Crossmatch See Detail 03/29/21 09:24 Wallis/IV: Voiding Method External Female Catheter Active Medications - Current Medications Current Medications: Generic Name Dose Route Start Last Admin Trade Name Freq PRN Reason Stop Dose Admin Acetaminophen 650 mg 03/18/21 00:05 04/04/21 06:20 Acetaminophen 325 Mg Tab PO 650 mg Q6H PRN Administration Pain MILD(1-3)/Fever >100.5/TOVAR Albuterol 2.5 mg 03/22/21 08:00 04/03/21 15:40 Albuterol 2.5 Mg/3 Ml Nebu IH 2.5 mg Q6H PRN Administration Wheezing Alprazolam 1 mg 03/26/21 10:53 04/05/21 06:40 Alprazolam 1 Mg Tab PO 1 mg Q8H PRN Administration AGITATION Arformoterol Tartrate 15 mcg 03/24/21 11:00 04/07/21 07:20 Arformoterol 15 Mcg/2 Ml Nebu IH 15 mcg Q12HRT BUTCH Administration Atorvastatin Calcium 10 mg 03/19/21 22:00 04/06/21 21:37 Atorvastatin 10 Mg Tab PO 10 mg QHS BUTCH Administration Budesonide 0.5 mg 03/24/21 11:00 04/07/21 07:20 Budesonide 0.5 Mg/2 Ml Nebu IH 0.5 mg Q12HRT BUTCH Administration Buspirone HCl 30 mg 04/04/21 16:00 04/07/21 10:30 Buspirone 10 Mg Tab PO 30 mg TID BUTCH Administration Clonazepam 0.5 mg 04/03/21 15:00 04/07/21 10:30 Clonazepam 0.5 Mg Tab PO 0.5 mg BID BUTCH Administration Dextrose 0 ml 03/17/21 23:58 03/31/21 05:16 Dextrose 50% In Water (25gm) 50 Ml Syringe IV 10 ml Q30MIN PRN Administration Hypoglycemia Protocol Diltiazem HCl 60 mg 04/04/21 18:00 04/07/21 06:21 Diltiazem 60 Mg Tab FEEDTUBE 60 mg Q8HR BUTCH Administration Docusate Sodium 100 mg 03/23/21 10:00 04/07/21 10:31 Docusate Sodium 100 Mg/10 Ml Oral Liqd PO 100 mg BID BUTCH Administration Duloxetine HCl 30 mg 04/05/21 10:00 04/07/21 10:30 Duloxetine 30 Mg Cap PO 30 mg QDAY BUTCH Administration Famotidine 20 mg 03/20/21 22:00 04/07/21 10:25 Famotidine 20 Mg Tab FEEDTUBE 20 mg BID BUTCH Administration Haloperidol Lactate 5 mg 03/30/21 09:52 04/01/21 08:33 Haloperidol Lactate 5 Mg/1 Ml Inj IV 5 mg Q6H PRN Administration Agitation Heparin Sodium (Porcine) 5,000 unit 03/18/21 06:00 04/07/21 06:20 Heparin 5,000 Unit/1 Ml Vial SUB-Q 5,000 unit Q8HR BUTCH Administration Hydralazine HCl 5 mg 03/29/21 10:56 Hydralazine 20 Mg/1 Ml Inj IV Q4HR PRN SBP >160 Hydrophilic Ointment 1 applic 03/17/21 17:35 Lip Therapy Vaseline TP Q2HR PRN Dry Lips Insulin Human Lispro 0 unit 03/19/21 12:00 04/07/21 06:22 Insulin Lispro 100 Unit/Ml SUB-Q 3 unit Q6HR BUTCH Administration Protocol Lorazepam 0.5 mg 03/30/21 09:53 04/04/21 20:08 Lorazepam 2 Mg/Ml Vial IV 0.5 mg Q4H PRN Administration Anxiety Magnesium Hydroxide 30 ml 03/18/21 00:05 03/24/21 09:36 Magnesium Hydroxide (Mom) Oral Liqd Udc PO 30 ml Q4H PRN Administration Constipation Metoprolol Tartrate 25 mg 03/20/21 22:00 04/07/21 10:30 Metoprolol Tartrate 25 Mg Tab PO 25 mg BID BUTCH Administration Morphine Sulfate 2 mg 03/18/21 00:05 04/05/21 06:40 Morphine 2 Mg/1 Ml Inj IV 2 mg Q4H PRN Administration Pain, Moderate (4-6) Morphine Sulfate 4 mg 03/18/21 00:05 04/03/21 17:21 Morphine 4 Mg/1 Ml Inj IV 4 mg Q4H PRN Administration Pain , Severe (7-10) Multi-Ingred Cream/Lotion/Oil/Oint 1 applic 03/17/21 17:35 Mineral Oil/Petrolatum, White Ophth Oint 3.5 Gm OU Q4HR PRN Dry Eye(s) Prednisone 10 mg 04/06/21 20:00 04/07/21 10:25 Prednisone 5 Mg Tab PO 10 mg QDAY BUTCH Administration Senna/Docusate Sodium 1 tab 03/17/21 22:00 04/06/21 21:52 Sennosides/Docusate Sodium 8.6/50 Mg Tab FEEDTUBE 1 tab BID BUTCH Administration Simple Syrup 15 ml 03/19/21 18:16 04/04/21 22:02 Simple Syrup 15 Ml FEEDTUBE 15 ml PRN PRN Administration Hypoglycemia Simple Syrup 30 ml 03/19/21 18:16 Simple Syrup 15 Ml FEEDTUBE PRN PRN Hypoglycemia Sodium Chloride 10 ml 03/18/21 10:00 04/07/21 10:30 Sodium Chloride 0.9% 10 Ml Flush Syringe IV 10 ml BID BUTCH Administration Sodium Chloride 10 ml 03/17/21 23:58 03/22/21 23:20 Sodium Chloride 0.9% 10 Ml Flush Syringe IV 10 ml PRN PRN Administration LINE FLUSH Venlafaxine HCl 25 mg 04/06/21 13:00 04/07/21 10:25 Venlafaxine 25 Mg Tab PO 25 mg QDAY BUTCH Administration Nutrition/Malnutrition Assess - Dietary Evaluation Nutrition/Malnutrition Findings: Nutrition Notes Start: 03/18/21 09:46 Freq: Status: Active Protocol: Document 04/05/21 18:19 PAM (Rec: 04/05/21 18:26 PAM [id number]) Nutrition Notes Initial or Follow up Brief Note Current Diet Cyclic 12 hr TF-Vital AF 1.2 Brenden @ 88 ml/hr (since D 04/03) . Height 5 ft 6 in Weight 82.8 kg [place] Body Weight (kg) 59.09 BMI 29.5 Weight change and time frame No body weight change reported . Weight Status Overweight Subjective/Other Information RD consult for routine F/U on TF continuation. TF continues Cyclic as prescribed, therefore, well tolerated. Percent of energy/protein needs met: Prescribed Vital AF 1.2 Brenden @ 88 ml/hr provides for energy/ protein needs (1,260 Kcal/79 g ) during LOS, 75% Kcal; 80% AA . #1 Nutrition Diagnosis Inadequate oral intake Comments: Cycle mode well tolerated. Diagnosis Progress(for reassessment Improved documentation) Nutrition Intervention Nutrition Support: Vital AF 1.2 Brenden @ 88 ml/hr. Flush: 140 ml water Q 4 hr. Kcal 1,260 Protein (gm) 79 Carbohydrates (gm) 116 Fat (gm) 57 Fluid (mL) 852 Fiber (gm) 5 % RDI: 75% Kcal; 80% AA. Goal #1 Provide at least 75% of energy /protein needs through Enteral Feeding during LOS. Follow-Up By: 04/12/21 Additional Comments Continue monitoring TF tolerance, and BM.
[2021-04-07] MEDS: SENNOSIDES/DOCUSATE SODIUM 8.6/50 MG TAB FEEDTUBE SCH ×2 (14:17→22:46)
[2021-04-08] MEDS: INSULIN LISPRO 100 UNIT/ML SUB-Q SCH ×4 (00:31→18:30)
[2021-04-08] MEDS: ALPRAZolam 1 MG TAB PO PRN (00:36)
[2021-04-08] MEDS: MORPHINE 2 MG/1 ML INJ IV PRN ×2 (00:44→08:25)
[2021-04-08] MEDS: dilTIAZem 60 MG TAB FEEDTUBE SCH ×3 (05:46→22:54)
[2021-04-08] MEDS: HEPARIN 5,000 UNIT/1 ML VIAL SUB-Q SCH ×3 (05:47→22:55)
--- NOTE | 2021-04-08 07:52 | Progress Note ---
Assessment and Plan Assessment and plan: Interval history: This is a 60-year-old female with COPD with oxygen dependence currently with palliative care, DM, former nicotine abuse, severe anxiety, GERD, HLD, HTN and PAGE presented to emergency department on 03/17 via EMS with complaints of shortness of breath. On arrival of EMS patient was found to be in SVT with a heart rate of about 200 and blood pressure to be quite elevated with systolic in 200s. She was given 6 mg of adenosine without significant changes subsequently given 12 mg of adenosine with improvement of her heart rate. Upon arrival to the emergency department patient was found to be in atrial fibrillation with RVR and dyspneic. Work-up in the emergency department revealed leukocytosis, lactic acidosis, transaminitis, hypoalbuminemia and a troponin leak. CXR, CT a chest and CT head were unremarkable. Patient was admitted to the hospitalist service with consults to [facility] and cardiology for further work-up of acute on chronic respiratory failure, SVT and hypertensive urgency. Hospital Course to date: 03/18/2021: Patient is intubated and on vent support, Patient is in sinus tachycardia 03/19: COVID-19 PCR negative, remains on ventilatory support, Versed drip changed to propofol. No acute events reported overnight. Tracheal aspirate w ith few gram-positive Cocci. This afternoon, patient went in to the 150s, giving 500 mL NS bolus and fentanyl push to see if it pain related. If persists then will order prn Ativan per Dr. Gage recommendation. 03/20: Restarted on home metoprolol and abdominal ultrasound showed right hydronephrosis. Abd US shows right hydroureteronephrosis and will obtain a dedicated renal US. She seems to more comfortable on propofol and fentanyl 03/21: Patient's FiO2 had to be decreased overnight due to hypoxia and tachycardia. Hyperkalemia noted and given Kayexalate. 1 unit PRBC for hemoglobin 6.8. [facility] plans to extubate tomorrow. Increase in Lantus. 03/22: Transfuse one unit prbc, failed SBT in the AM d/t hypertension. [facility] extubated the patient but she was reintubated within [address] head ordered and pending read. Given kionex x2 for hyperkalemia 03/23: This morning patient was only on Precedex drip and overnight she had agitation, hypertension and tachycardia. RN instructed to place fentanyl drip. Increase in Lantus for better glucose control. Will remove Wallis today. 03/24/2021: no acute events reported overnight. Patient remains intubated and is currently on fentanyl and Precedex. Increase in Lantus due to hyperglycemia. 03/25: no acute events overnight. increase in lantus and decreased steroids today. 04/02: Bipap q hs and optiflow in the AM, remains on precedex. Psych consulted today. 04/03: Patient failed swallow evaluation today and ST recommended PEG tube placement. NG tube was replaced yesterday and tube feeds changed to cyclic feedings today given she was BiPAP overnight. Psych consulted. Likely DC tomorrow or . 04/04: Patient has long standing anxiety history. Needs medication optimization. May uptitrate buspar. PCCM stated that patient did not tolerate klonopin as an OP. Currently working to taper steroids. No GI consult at this time for PEG as PCCM d/w . Will continue to work with CM for hospice placement. 04/05: Klonopin unfortunately not effective in this patient. Awaiting psych input/eval for today. Will continue to work towards hospice placement with CM. 04/06: On hi flow 35/50. comfortable on my encounter. Effexor added by psychiatry. Will work towards hospice placement with CM. 04/07: Placed on bipap, has been on since this am. comfortable on my encounter. Pending hospice placement by CM. 04/08: Remains on bipap. Will try to aggressively wean if possible. Will work with Cm friday for hospice placement. Assessment and plan: Neuro: Hepatic/metabolic encephalopathy, h/o severe anxiety, depression -Admit ammonia 116, 03/09 ammonia 26 -Precedex gtt -xanax, ativan, haldol and morphine prn -Buspar increased dose today on hopes to wean of precedex; home cymbalta on hold (cannot crush) -Psych consulted, started on effexor 25 mg po daily - on buspar -Avoid delirium -Maintain sleep-wake cycle -SAT when appropriate -CT head on admit with no acute findings -Repeat CT head d/t AMS-> no acute changes Cardio: Hypertensive emergency (resolved), s/p A. fib with RVR and SVT, h/o HTN, HLD -s/p X2 doses of adenosine in the ED -Cardiology consulted, appreciate recommendations -PO metoprolol BID -Resume home statin -Blood pressure monitoring per protocol -Echocardiogram 10/2020 showed EF of 50 to 55%, mild diastolic dysfunction, trace to mild tricuspid regurgitation, mild pulmonary hypertension, RVSP 45 mmHg Resp : Acute on chronic respiratory failure, h/o COPD and PAGE -CCM consulted, appreciate recommendations -CTA chest shows no CT evidence of pulmonary embolism, small right and trace left pleural effusion, upper lobe predominant emphysema -Intubated on 03/17 with 7.00 ETT at 20 at the lips and extubated 03/22 but reintubated shortly after; Self-extubated on 03/29 -weaned to BiPAP q hs, Optiflow in AM -VAP bundle -SPO2 monitoring -Methylprednisone weaning-> PO will be slow wean -nebs per [facility] GI: Transaminitis (resolving), h/o chronic constipation -NTR consulted, appreciate recommendations -RUQ US shows right hydroureteronephrosis and possible gallbladder sludge or gallstones -Renal ultrasound shows mild right-sided hydronephrosis with parenchymal thinning and trace perinephric fluid. -need to follow up outpatient -PPI -BR: senakot S and colace, prn mom -BM 04/01 -24 hours +1632 mL -Failed bedside swallow eval -NGT reinserted and TF changed to cyclic; ST recommends PEG : Mild right hydroureteronephrosis -Trend BMP -FWF with TF -stop D51/2 NS when TF resumed -Strict I & Os -Wallis -Renal ultrasound shows mild right-sided hydronephrosis with parenchymal thinning and trace perinephric fluid. Endo: h/o DM -Avoid hypoglycemia -SSI -Accucheck q 6hrs -Lantus -titrate as needed Heme: Anemia, Leukocytosis, h/o Microcytic anemia -Trend CBC -Transfuse for hbg <7 -s/p 2 unit PRBCs -SCDs to BLE while in bed -Lovenox subq ID: Gram positive cocci in tracheal aspirate -02/25 tracheal aspirate with few gram-positive cocci -s/p Levaquin (03/18-) -Trend WBC and fever curve -Repeat blood cultures and sputum culture NGTD -Trend WBC and fever curve History Interval history: No ovenright events otherwise. Remains on bipap Hospitalist Physical - Physical exam Narrative exam: General appearance: Present: no acute distress, obese - EENT Eyes: Present: PERRL, EOM intact ENT: hearing intact, clear oral mucosa, dentition normal - Neck Neck: Present: normal ROM - Respiratory Respiratory effort: normal Respiratory: bilateral: diminished - Cardiovascular Rhythm: regular Heart Sounds: Present: S1 & S2. Absent: systolic murmur, diastolic murmur - Extremities Extremities: no ischemia, pulses intact, pulses symmetrical, normal temperature, normal color Peripheral Pulses: within normal limits - Abdominal General gastrointestinal: soft, non-tender, non-distended, normal bowel sounds - Integumentary Integumentary: Present: warm, dry - Psychiatric Psychiatric: cooperative, agitated - Neurologic Neurologic: CNII-XII intact, no focal deficits, moves all extremities - Constitutional Vitals: Temp Pulse Resp BP Pulse Ox 98.4 F 85 18 124/70 96 04/08/21 03:51 04/08/21 04:10 04/08/21 04:10 04/08/21 03:51 04/08/21 04:10 General appearance: Present: no acute distress, obese HEART Score - HEART Score Troponin: Troponin T < 0.010 ng/mL (0.00-0.029) 03/29/21 09:24 Results - Labs CBC & Chem 7: 04/04/21 04:21 04/04/21 04:21 Labs: Laboratory Last Values WBC 14.4 K/mm3 (4.5-11.0) H 04/04/21 04:21 RBC 4.13 M/mm3 (3.65-5.03) 04/04/21 04:21 Hgb 9.9 gm/dl (10.1-14.3) L 04/04/21 04:21 Hct 33.2 % (30.3-42.9) 04/04/21 04:21 MCV 80 fl (79-97) 04/04/21 04:21 MCH 24 pg (28-32) L 04/04/21 04:21 MCHC 30 % (30-34) 04/04/21 04:21 RDW 23.0 % (13.2-15.2) H 04/04/21 04:21 Plt Count 572 K/mm3 (140-440) H 04/04/21 04:21 [place] % (Auto) In Home Baby Sitter 03/24/21 08:03 Add Manual Diff Complete 03/26/21 05:35 Total Counted 100 03/26/21 05:35 Seg Neuts % (Manual) 72.0 % (40.0-70.0) H 03/26/21 05:35 Band Neutrophils % 5.0 % 03/26/21 05:35 Lymphocytes % (Manual) 6.0 % (13.4-35.0) L 03/26/21 05:35 Reactive Lymphs % (Man) 5.0 % 03/19/21 04:59 Monocytes % (Manual) 8.0 % (0.0-7.3) H 03/26/21 05:35 Metamyelocytes % 3.0 % 03/26/21 05:35 Myelocytes % 5.0 % 03/26/21 05:35 Promyelocytes % 1.0 % 03/26/21 05:35 Nucleated RBC % Not Reportable 03/26/21 05:35 Seg Neutrophils # Man 14.4 K/mm3 (1.8-7.7) H 03/26/21 05:35 Band Neutrophils # 1.0 K/mm3 03/26/21 05:35 Lymphocytes # (Manual) 1.2 K/mm3 (1.2-5.4) 03/26/21 05:35 Abs React Lymphs (Man) 0.0 K/mm3 03/26/21 05:35 Monocytes # (Manual) 1.6 K/mm3 (0.0-0.8) H 03/26/21 05:35 Eosinophils # (Manual) 0.0 K/mm3 (0.0-0.4) 03/26/21 05:35 Basophils # (Manual) 0.0 K/mm3 (0.0-0.1) 03/26/21 05:35 Metamyelocytes # 0.6 K/mm3 03/26/21 05:35 Myelocytes # 1.0 K/mm3 03/26/21 05:35 Promyelocytes # 0.2 K/mm3 03/26/21 05:35 Blast Cells # 0.0 K/mm3 03/26/21 05:35 WBC Morphology Not Reportable 03/26/21 05:35 Hypersegmented Neuts Not Reportable 03/26/21 05:35 Hyposegmented Neuts Not Reportable 03/26/21 05:35 Hypogranular Neuts Not Reportable 03/26/21 05:35 Smudge Cells Not Reportable 03/26/21 05:35 Toxic Granulation Not Reportable 03/26/21 05:35 Toxic Vacuolation Not Reportable 03/26/21 05:35 Dohle Bodies Not Reportable 03/26/21 05:35 Pelger-Huet Anomaly Not Reportable 03/26/21 05:35 Florentino Rods Not Reportable 03/26/21 05:35 Platelet Estimate Consistent w auto 03/26/21 05:35 Clumped Platelets Not Reportable 03/26/21 05:35 Plt Clumps, EDTA Not Reportable 03/26/21 05:35 Large Platelets 1+ 03/26/21 05:35 Giant Platelets Not Reportable 03/26/21 05:35 Platelet Satelliting Not Reportable 03/26/21 05:35 Plt Morphology Comment Not Reportable 03/26/21 05:35 RBC Morphology Not Reportable 03/26/21 05:35 Dimorphic RBCs Not Reportable 03/26/21 05:35 Polychromasia 1+ 03/26/21 05:35 Hypochromasia 2+ 03/26/21 05:35 Poikilocytosis 1+ 03/26/21 05:35 Anisocytosis 2+ 03/26/21 05:35 Microcytosis Not Reportable 03/26/21 05:35 Macrocytosis Not Reportable 03/26/21 05:35 Spherocytes Not Reportable 03/26/21 05:35 Pappenheimer Bodies Not Reportable 03/26/21 05:35 Sickle Cells Not Reportable 03/26/21 05:35 Target Cells 1+ 03/26/21 05:35 Tear Drop Cells 1+ 03/26/21 05:35 Ovalocytes Not Reportable 03/26/21 05:35 Stomatocytes 1+ 03/26/21 05:35 Helmet Cells Not Reportable 03/26/21 05:35 [place] Bodies Not Reportable 03/26/21 05:35 [place] Rings Not Reportable 03/26/21 05:35 Marcelo Cells Not Reportable 03/26/21 05:35 Bite Cells Not Reportable 03/26/21 05:35 Crenated Cell Not Reportable 03/26/21 05:35 Elliptocytes Not Reportable 03/26/21 05:35 Acanthocytes (Spur) Not Reportable 03/26/21 05:35 Rouleaux Not Reportable 03/26/21 05:35 Hemoglobin C Crystals Not Reportable 03/26/21 05:35 Schistocytes 1+ 03/26/21 05:35 Malaria parasites Not Reportable 03/26/21 05:35 Maykel Bodies Not Reportable 03/26/21 05:35 Hem Pathologist Commnt No 03/26/21 05:35 PT 12.6 Sec. (12.2-14.9) 03/17/21 17:37 INR 0.85 (0.87-1.13) L 03/17/21 17:37 APTT 23.3 Sec. (24.2-36.6) L 03/17/21 17:37 D-Dimer 947.92 ng/mlDDU (0-234) H 03/17/21 17:37 ABG pH 7.477 (7.320-7.450) H 03/24/21 08:57 POC ABG pCO2 56.9 mmHg (32.0-48.0) H 03/24/21 08:57 ABG pCO2 72.7 mm Hg 03/23/21 04:50 POC ABG pO2 100.6 mmHg (83-108) 03/24/21 08:57 ABG pO2 70.7 mm Hg (80.0-90.0) L 03/23/21 04:50 POC ABG HCO3 41.1 03/24/21 08:57 ABG HCO3 41.7 mmol/L (20.0-26.0) H 03/23/21 04:50 ABG O2 Saturation 98.3 (0-100) 03/24/21 08:57 ABG O2 Content 7.8 (0.0-44) 03/23/21 04:50 POC ABG Base Excess 15.8 03/24/21 08:57 ABG Base Excess 15.2 mmol/L (-2.0-3.0) H 03/23/21 04:50 ABG Hemoglobin 8.0 (12.0-17.5) L 03/24/21 08:57 ABG Oxyhemoglobin 96.8 (94-98) 03/24/21 08:57 ABG Carboxyhemoglobin 1.7 % (0.0-5.0) 03/23/21 04:50 ABG Methemoglobin 0.3 (0.0-1.5) 03/24/21 08:57 ABG Sodium 139.1 mmol/L (136.0-145.0) 03/24/21 08:57 ABG Potassium 3.9 mmol/L (3.40-4.50) 03/24/21 08:57 ABG Chloride 93.0 mmol/L (98-107) L 03/24/21 08:57 ABG Glucose 328 mg/dL (65-95) H 03/24/21 08:57 Oxyhemoglobin 96.9 % (95.0-99.0) 03/23/21 04:50 Carboxyhemoglobin 1.2 (0.5-1.5) 03/24/21 08:57 FiO2 40 % 03/23/21 04:50 FiO2 % 40 03/24/21 08:57 Sodium 146 mmol/L (137-145) H 04/04/21 04:21 Potassium 4.1 mmol/L (3.6-5.0) 04/04/21 04:21 Chloride 96.8 mmol/L (98-107) L 04/04/21 04:21 Carbon Dioxide 35 mmol/L (22-30) H 04/04/21 04:21 Anion Gap 18 mmol/L 04/04/21 04:21 BUN 9 mg/dL (7-17) 04/04/21 04:21 Creatinine 0.4 mg/dL (0.6-1.2) L 04/04/21 04:21 Estimated GFR > 60 ml/min 04/04/21 04:21 BUN/Creatinine Ratio 23 % 04/04/21 04:21 Glucose 111 mg/dL (65-100) H 04/04/21 04:21 POC Glucose 137 mg/dL (70-105) H 04/08/21 04:52 Lactic Acid 4.00 mmol/L (0.7-2.0) H* 03/17/21 23:36 Calcium 9.5 mg/dL (8.4-10.2) 04/04/21 04:21 Phosphorus 4.50 mg/dL (2.5-4.5) 03/31/21 04:41 Magnesium 2.20 mg/dL (1.7-2.3) 03/31/21 04:41 Total Bilirubin 0.30 mg/dL (0.1-1.2) 03/26/21 05:35 Direct Bilirubin < 0.2 mg/dL (0-0.2) 03/19/21 12:00 Indirect Bilirubin 0.1 mg/dL 03/19/21 12:00 AST 35 units/L (5-40) 03/26/21 05:35 ALT 169 units/L (7-56) H 03/26/21 05:35 Alkaline Phosphatase 138 units/L (35-129) H 03/26/21 05:35 Ammonia 26.0 umol/L (25-60) 03/19/21 12:00 Total Creatine Kinase 123 units/L (30-135) 03/29/21 09:24 CK-MB (CK-2) 1.5 ng/mL (0.0-4.0) 03/29/21 09:24 CK-MB (CK-2) Rel Index 1.2 (0-4) 03/29/21 09:24 Troponin T < 0.010 ng/mL (0.00-0.029) 03/29/21 09:24 NT-Pro-B Natriuret Pep 576.0 pg/mL (0-900) 03/17/21 17:36 Total Protein 5.5 g/dL (6.3-8.2) L 03/26/21 05:35 Albumin 3.2 g/dL (3.9-5) L 03/26/21 05:35 Albumin/Globulin Ratio 1.4 % 03/26/21 05:35 Triglycerides 189 mg/dL (2-149) H 03/22/21 04:39 Cholesterol 191 mg/dL (50-199) 03/17/21 17:36 LDL Cholesterol Direct 80 mg/dL (50-130) 03/17/21 17:36 HDL Cholesterol 73 mg/dL (40-59) H 03/17/21 17:36 Cholesterol/HDL Ratio 2.61 % 03/17/21 17:36 Amylase 78 units/L (27-131) 03/19/21 Unknown Lipase 12 units/L (13-60) L 03/19/21 Unknown TSH 3.510 mlU/mL (0.270-4.200) 03/17/21 22:57 Arterial Blood Glucose 328 mg/dL (65-95) H 03/24/21 08:57 Arterial Blood Ionized Calcium 4.5 mg/dL (4.6-5.3) L 03/24/21 08:57 Urine Color Mayuri (Yellow) 03/17/21 19:42 Urine Turbidity Slightly-cloudy (Clear) 03/17/21 19:42 Urine pH 7.0 (5.0-7.0) 03/17/21 19:42 Ur Specific [place] 1.015 (1.003-1.030) 03/17/21 19:42 Urine Protein 100 mg/dl mg/dL (Negative) 03/17/21 19:42 Urine Glucose (UA) Neg mg/dL (Negative) 03/17/21 19:42 Urine Ketones 20 mg/dL (Negative) 03/17/21 19:42 Urine Blood Sm (Negative) 03/17/21 19:42 Urine Nitrite Neg (Negative) 03/17/21 19:42 Urine Bilirubin Neg (Negative) 03/17/21 19:42 Urine Urobilinogen 2.0 mg/dL (<2.0) 03/17/21 19:42 Ur Leukocyte Esterase Neg (Negative) 03/17/21 19:42 Urine WBC (Auto) 4.0 /HPF (0.0-6.0) 03/17/21 19:42 Urine RBC (Auto) 6.0 /HPF (0.0-6.0) 03/17/21 19:42 U Epithel Cells (Auto) 5.0 /HPF (0-13.0) 03/17/21 19:42 Urine Bacteria (Auto) 1+ /HPF (Negative) 03/17/21 19:42 Urine Mucus 1+ /HPF 03/17/21 19:42 Urine Yeast (Budding) Few /HPF 03/17/21 19:42 Acetaminophen 5.0 ug/mL (10.0-30.0) L 03/18/21 23:07 Coronavirus (PCR) Negative (Negative) 03/19/21 Unknown Blood Type A POSITIVE 03/29/21 09:24 Antibody Screen Negative 03/29/21 09:24 Crossmatch See Detail 03/29/21 09:24 [place]/IV: Voiding Method External Female Catheter Active Medications - Current Medications Current Medications: Generic Name Dose Route Start Last Admin Trade Name Freq PRN Reason Stop Dose Admin Acetaminophen 650 mg 03/18/21 00:05 04/04/21 06:20 Acetaminophen 325 Mg Tab PO 650 mg Q6H PRN Administration Pain MILD(1-3)/Fever >100.5/TOVAR Albuterol 2.5 mg 03/22/21 08:00 04/03/21 15:40 Albuterol 2.5 Mg/3 Ml Nebu IH 2.5 mg Q6H PRN Administration Wheezing Alprazolam 1 mg 03/26/21 10:53 04/08/21 00:36 Alprazolam 1 Mg Tab PO 1 mg Q8H PRN Administration AGITATION Arformoterol Tartrate 15 mcg 03/24/21 11:00 04/07/21 19:34 Arformoterol 15 Mcg/2 Ml Nebu IH 15 mcg Q12HRT BUTCH Administration Atorvastatin Calcium 10 mg 03/19/21 22:00 04/07/21 22:46 Atorvastatin 10 Mg Tab PO 10 mg QHS BUTCH Administration Budesonide 0.5 mg 03/24/21 11:00 04/07/21 19:34 Budesonide 0.5 Mg/2 Ml Nebu IH 0.5 mg Q12HRT BUTCH Administration Buspirone HCl 30 mg 04/04/21 16:00 04/07/21 22:46 Buspirone 10 Mg Tab PO 30 mg TID BUTCH Administration Clonazepam 0.5 mg 04/03/21 15:00 04/07/21 22:46 Clonazepam 0.5 Mg Tab PO 0.5 mg BID BUTCH Administration Dextrose 0 ml 03/17/21 23:58 03/31/21 05:16 Dextrose 50% In Water (25gm) 50 Ml Syringe IV 10 ml Q30MIN PRN Administration Hypoglycemia Protocol Diltiazem HCl 60 mg 04/04/21 18:00 04/08/21 05:46 Diltiazem 60 Mg Tab FEEDTUBE 60 mg Q8HR BUTCH Administration Docusate Sodium 100 mg 03/23/21 10:00 04/07/21 22:46 Docusate Sodium 100 Mg/10 Ml Oral Liqd PO 100 mg BID BUTCH Administration Duloxetine HCl 30 mg 04/05/21 10:00 04/07/21 10:30 Duloxetine 30 Mg Cap PO 30 mg QDAY BUTCH Administration Famotidine 20 mg 03/20/21 22:00 04/07/21 22:46 Famotidine 20 Mg Tab FEEDTUBE 20 mg BID BUTCH Administration Haloperidol Lactate 5 mg 03/30/21 09:52 04/01/21 08:33 Haloperidol Lactate 5 Mg/1 Ml Inj IV 5 mg Q6H PRN Administration Agitation Heparin Sodium (Porcine) 5,000 unit 03/18/21 06:00 04/08/21 05:47 Heparin 5,000 Unit/1 Ml Vial SUB-Q 5,000 unit Q8HR BUTCH Administration Hydralazine HCl 5 mg 03/29/21 10:56 Hydralazine 20 Mg/1 Ml Inj IV Q4HR PRN SBP >160 Hydrophilic Ointment 1 applic 03/17/21 17:35 Lip Therapy Vaseline TP Q2HR PRN Dry Lips Insulin Human Lispro 0 unit 03/19/21 12:00 04/08/21 05:30 Insulin Lispro 100 Unit/Ml SUB-Q Not Given Q6HR [facility] Protocol Lorazepam 0.5 mg 03/30/21 09:53 04/04/21 20:08 Lorazepam 2 Mg/Ml Vial IV 0.5 mg Q4H PRN Administration Anxiety Magnesium Hydroxide 30 ml 03/18/21 00:05 03/24/21 09:36 Magnesium Hydroxide (Mom) Oral Liqd Udc PO 30 ml Q4H PRN Administration Constipation Metoprolol Tartrate 25 mg 03/20/21 22:00 04/07/21 22:46 Metoprolol Tartrate 25 Mg Tab PO 25 mg BID BUTCH Administration Morphine Sulfate 2 mg 03/18/21 00:05 04/08/21 00:44 Morphine 2 Mg/1 Ml Inj IV 2 mg Q4H PRN Administration Pain, Moderate (4-6) Morphine Sulfate 4 mg 03/18/21 00:05 04/03/21 17:21 Morphine 4 Mg/1 Ml Inj IV 4 mg Q4H PRN Administration Pain , Severe (7-10) Multi-Ingred Cream/Lotion/Oil/Oint 1 applic 03/17/21 17:35 Mineral Oil/Petrolatum, White Ophth Oint 3.5 Gm OU Q4HR PRN Dry Eye(s) Prednisone 10 mg 04/06/21 20:00 04/07/21 10:25 Prednisone 5 Mg Tab PO 10 mg QDAY BUTCH Administration Senna/Docusate Sodium 1 tab 03/17/21 22:00 04/07/21 22:46 Sennosides/Docusate Sodium 8.6/50 Mg Tab FEEDTUBE 1 tab BID BUTCH Administration Simple Syrup 15 ml 03/19/21 18:16 04/04/21 22:02 Simple Syrup 15 Ml FEEDTUBE 15 ml PRN PRN Administration Hypoglycemia Simple Syrup 30 ml 03/19/21 18:16 Simple Syrup 15 Ml FEEDTUBE PRN PRN Hypoglycemia Sodium Chloride 10 ml 03/18/21 10:00 04/07/21 22:46 Sodium Chloride 0.9% 10 Ml Flush Syringe IV 10 ml BID BUTCH Administration Sodium Chloride 10 ml 03/17/21 23:58 03/22/21 23:20 Sodium Chloride 0.9% 10 Ml Flush Syringe IV 10 ml PRN PRN Administration LINE FLUSH Venlafaxine HCl 25 mg 04/06/21 13:00 04/07/21 10:25 Venlafaxine 25 Mg Tab PO 25 mg QDAY BUTCH Administration Nutrition/Malnutrition Assess - Dietary Evaluation Nutrition/Malnutrition Findings: Nutrition Notes Start: 03/18/21 09:46 Freq: Status: Active Protocol: Document 04/05/21 18:19 PAM (Rec: 04/05/21 18:26 PAM [id number]) Nutrition Notes Initial or Follow up Brief Note Current Diet Cyclic 12 hr TF-Vital AF 1.2 Brenden @ 88 ml/hr (since D 04/03) . Height 5 ft 6 in Weight 82.8 kg [place] Body Weight (kg) 59.09 BMI 29.5 Weight change and time frame No body weight change reported . Weight Status Overweight Subjective/Other Information RD consult for routine F/U on TF continuation. TF continues Cyclic as prescribed, therefore, well tolerated. Percent of energy/protein needs met: Prescribed Vital AF 1.2 Brenden @ 88 ml/hr provides for energy/ protein needs (1,260 Kcal/79 g ) during LOS, 75% Kcal; 80% AA . #1 Nutrition Diagnosis Inadequate oral intake Comments: Cycle mode well tolerated. Diagnosis Progress(for reassessment Improved documentation) Nutrition Intervention Nutrition Support: Vital AF 1.2 Brenden @ 88 ml/hr. Flush: 140 ml water Q 4 hr. Kcal 1,260 Protein (gm) 79 Carbohydrates (gm) 116 Fat (gm) 57 Fluid (mL) 852 Fiber (gm) 5 % RDI: 75% Kcal; 80% AA. Goal #1 Provide at least 75% of energy /protein needs through Enteral Feeding during LOS. Follow-Up By: 04/12/21 Additional Comments Continue monitoring TF tolerance, and BM.
[2021-04-08] MEDS: ARFORMOTEROL 15 MCG/2 ML NEBU IH SCH ×2 (08:16→20:24)
[2021-04-08] MEDS: BUDESONIDE 0.5 MG/2 ML NEBU IH SCH ×2 (08:16→20:24)
[2021-04-08] MEDS: LORazepam 2 MG/ML VIAL IV PRN (08:25)
--- NOTE | 2021-04-08 09:31 | Progress Note ---
Assessment and Plan Acute combined hypoxic and hypercapnic respiratory failure COVID-19 PCR negative Patient currently on BiPAP. History of emphysema Microcytic anemia Sepsis Tachycardia, sinus Reflex sinus tachycardia. Significantly well controlled on metoprolol and Cardizem. ekg monitor reviewed. Telemetry revealed sinus rhythm with occasional PACs and PVCs. Echocardiogram July 2020 revealing normal left ventricular ejection fraction Recommendations: No further cardiac intervention is needed. Continue metoprolol and Cardizem. Heart rate currently stable. At some point can change to long-acting Cardizem and continue same dose of metoprolol. Subjective Date of service: 04/08/21 Principal diagnosis: Atrial fibrillation with RVR, respiratory failure Interval history: Patient currently on BiPAP. Appears stable. No significant distress noted Objective Vital Signs Temp Pulse Pulse Pulse Resp Resp BP 04/08/21 08:29 107 H 23 04/08/21 08:17 98 H 22 04/08/21 04:10 85 18 04/08/21 03:51 98.4 F 87 16 124/70 04/08/21 00:15 82 22 04/07/21 23:03 97.6 F 104 H 20 113/48 04/07/21 22:00 04/07/21 19:41 78 16 04/07/21 19:38 78 17 04/07/21 19:19 98.2 F 90 19 137/78 04/07/21 18:08 99 H 19 04/07/21 17:31 92 H 20 139/82 04/07/21 17:00 90 16 139/82 04/07/21 16:31 89 19 119/81 04/07/21 16:01 79 16 119/81 04/07/21 15:31 76 17 170/101 04/07/21 15:01 96 H 29 H 170/101 04/07/21 14:31 84 22 110/83 04/07/21 14:17 89 110/83 04/07/21 14:00 87 27 H 110/83 04/07/21 13:31 88 24 120/73 04/07/21 13:01 86 17 120/73 04/07/21 13:00 80 04/07/21 12:31 94 H 22 117/74 04/07/21 12:00 98.5 F 83 85 17 126/72 04/07/21 11:30 82 19 126/72 04/07/21 11:00 104 H 16 126/72 04/07/21 10:30 89 15 133/72 04/07/21 10:00 98 H 16 133/72 04/07/21 09:30 93 H 16 127/72 Pulse Ox 04/08/21 08:29 91 04/08/21 08:17 04/08/21 04:10 96 04/08/21 03:51 98 04/08/21 00:15 99 04/07/21 23:03 99 04/07/21 22:00 98 04/07/21 19:41 04/07/21 19:38 100 04/07/21 19:19 100 04/07/21 18:08 98 04/07/21 17:31 100 04/07/21 17:00 100 04/07/21 16:31 99 04/07/21 16:01 99 04/07/21 15:31 96 04/07/21 15:01 90 04/07/21 14:31 97 04/07/21 14:17 04/07/21 14:00 98 04/07/21 13:31 95 04/07/21 13:01 100 04/07/21 13:00 04/07/21 12:31 100 04/07/21 12:00 100 04/07/21 11:30 99 04/07/21 11:00 99 04/07/21 10:30 99 04/07/21 10:00 100 04/07/21 09:30 99 - Physical Examination General: No Apparent Distress HEENT: Positive: PERRL, Normocephaly, Other (Moderately obese) Neck: Positive: neck supple, trachea midline Cardiac: Positive: Reg Rate and Rhythm Lungs: Positive: No Wheeze, Rales, Rhonchi Neuro: Positive: Grossly Intact Abdomen: Positive: Unremarkable, Soft Skin: Positive: Clear Extremities: Absent: edema
--- NOTE | 2021-04-08 10:58 | Progress Note ---
Assessment and Plan 60 y/o female with acute on chronic respiratory failure, SVT and HTN likely all related to anxiety and stress 04/08/21: No new recs for today, please see below. 04/07/21: Started new anti depressant, appreciate psych recs. Continue HFNC during the day and NIV at night. Home with hospice soon. 04/06/21 PSych to readdress meds. Tolerated the HFNC all day. Will attempt transfer to telemetry floor. 04/05/21: Will speak with psych. Continue to attempt to convince patient to wear HFNC and Bipap at night. Drop steroids 04/04/21: Saw first hand what patient is likely doing at home. Severe panic attacks. For record, klonopin is what I started her on as an outpatient and she did not tolerate it. I had her on 1 BID and per the patient and she was completely out of it. Need to find the right combo that allows her to be calm and awake and functional. Will drop steroids down tomorrow to 10 daily and monitor for signs of AI. Hold on GI consult for now for peg, spoke with over the phone to update him. Very very guarded to poor prognosis. 04/03/21: Oxygen requirement is acceptable for hospice. Awaiting Pysch recs for anxiety control. Ok with increasing Buspar. Hopeful home with hospice as early as today but more reasonable would be tomorrow or . 04/02/21: Patient has verbally expressed that she wants to go home and she wants to go home with home hospice. Patient is already on [facility] palliative service and can transition to hospice. Awaiting to see how much oxygen we are able to provide for patient. She should be able to be weaned to nasal cannula but await to hear back from [place]. Per [facility] can do 50 liters and 50%. Patient currently on 40 and 50 with sat of 100. Await psych recommendations. 03/30/21: Currently still on bipap. No HFNC units available in the house. Transfused blood on yesterday. But no CBC checked today. Patient states that she is tired and has expressed this to several of the staff. She is currently on [facility] but my plan is to discuss hospice with her and her . Dropping steroids down starting tomorrow. Continue to wean Oxygen as tolerated. If possible keep in either ICU or step down over the weekend. 03/29/21: Currently on bipap. Good volumes and good sats. Still with some mild distress but stable. Will continue bipap therapy for now. Tomorrow will need to place psych consult if able to stay of the vent and weaned from continuous bipap to help us address anxiety and depression. IMS will likely want to transfuse PRBC's. Would give slowly if done. Discussed with [employer] and Bedside nurse, will restart precedex at low dose to help with anxiety. Will alert . 03/28/21: Continue PSV but she isnt ready for extubation today. Not able to tolerates PSV on yesterday so today is first real test. Dropped steroids to daily starting today. UOP is stable, but she is grossly positive. If oxygen requirement increases, check CXR and may need to consider lasix. Continue PSV for as long as possible today but definitely rest overnight. Guarded prognosis. May eventually need trach. 03/27/21: Monitor renal function and urine output closely. Not sure why K continues to be elevated despite daily correction therapy. Attempt PSV off fent but can continue precedex. Will see how patient looks tomorrow but still may not be a candidate for extubation. Drop steroids to daily starting tomorrow. 03/26/21: Continue daily PSV trials. Agree with my partner as I would like another trial of routine extubation before committing to trach. Discussed with family and patient at bedside this am. Continue solumedrol 40q12. IMS restarted buspar. WIll have psych see and evaluate to help with anxiety and depression once extubated. Guarded prognosis. 03/22/21: Please see event note for details. Planned to extubate today and wean steroids. 03/21/21: Echo given continued tachycardia despite adequate oxygenation. Can drop steroids to 40q8. 03/19/21: Continue sedation. Wean FiO2 for sats >88%. consider weaning steroid tomorrow. Follow up RUQ and trend LFT's 1. Wean Versed and place on Diprovan drip 2. Will give Fent 100 IV x1 now and order drip if needed for pain 3. Spoke with over the phone to get more history. Sounds like a panic attack not aborted by xanax therapy. Did check Tylenol level as patient has been in pain from fall 4. Elevated LFT's former drinker but confirms she has not been drinking. Ordered RUQ ultrasound and need to repeat LFT's tomorrow 5. Reviewed cards note, and they do not want to treat tachycardia or elevated bp, likely needs more sedation Guarded prognosis CCT 31 minutes. Subjective Date of service: 04/08/21 Principal diagnosis: Atrial fibrillation with RVR, respiratory failure Interval history: No acute events. Objective Vital Signs - 12hr 04/07/21 04/08/21 04/08/21 23:03 00:15 03:51 Temperature 97.6 F 98.4 F Pulse Rate 104 H 82 87 Pulse Rate [ Bilateral] Respiratory 20 22 16 Rate Respiratory Rate [Bilateral ] Blood Pressure 113/48 124/70 O2 Sat by Pulse 99 99 98 Oximetry 04/08/21 04/08/21 04/08/21 04:10 08:17 08:29 Temperature Pulse Rate 85 107 H Pulse Rate [ 98 H Bilateral] Respiratory 18 23 Rate Respiratory 22 Rate [Bilateral ] Blood Pressure O2 Sat by Pulse 96 91 Oximetry Constitutional: other (moderate distress) Eyes: non-icteric ENT: oropharynx moist Neck: supple Effort: normal Ascultation: Bilateral: diminished breath sounds Cardiovascular: regular rate and rhythm (no mrg) Gastrointestinal: normoactive bowel sounds, soft, non-tender, non-distended Extremities: no cyanosis, no edema, pink and warm Neurologic: normal mental status, non-focal exam, pupils equal and round Psychiatric: mood appropriate, affect normal CBC and BMP: 04/04/21 04:21 04/04/21 04:21 ABG, PT/INR, D-dimer: ABG ABG pH 7.477 (7.320-7.450) H 03/24/21 08:57 POC ABG pCO2 56.9 mmHg (32.0-48.0) H 03/24/21 08:57 ABG pCO2 72.7 mm Hg 03/23/21 04:50 POC ABG pO2 100.6 mmHg (83-108) 03/24/21 08:57 ABG pO2 70.7 mm Hg (80.0-90.0) L 03/23/21 04:50 POC ABG HCO3 41.1 03/24/21 08:57 ABG O2 Saturation 98.3 (0-100) 03/24/21 08:57 PT/INR, D-dimer PT 12.6 Sec. (12.2-14.9) 03/17/21 17:37 INR 0.85 (0.87-1.13) L 03/17/21 17:37 D-Dimer 947.92 ng/mlDDU (0-234) H 03/17/21 17:37 Abnormal lab findings: Abnormal Labs 03/17/21 03/17/21 03/17/21 17:36 17:36 17:37 WBC 13.8 H RBC 3.48 L Hgb 7.0 L Hct 26.2 L MCV 75 L MCH 20 L MCHC 27 L RDW 25.4 H Plt Count Seg Neuts % (Manual) Lymphocytes % (Manual) Monocytes % (Manual) Nucleated RBC % 7.0 H Seg Neutrophils # Man 8.7 H Lymphocytes # (Manual) Monocytes # (Manual) INR 0.85 L APTT 23.3 L D-Dimer 947.92 H ABG pH POC ABG pCO2 POC ABG pO2 ABG pO2 ABG HCO3 ABG O2 Saturation ABG Base Excess ABG Hemoglobin ABG Oxyhemoglobin ABG Potassium ABG Chloride ABG Glucose Oxyhemoglobin Sodium Potassium Chloride 88.2 L Carbon Dioxide 38 H BUN Creatinine Glucose 129 H POC Glucose Lactic Acid Calcium Phosphorus Magnesium AST 177 H ALT 251 H Alkaline Phosphatase Ammonia Troponin T 0.036 H Total Protein 5.9 L Albumin 3.8 L Triglycerides 173 H HDL Cholesterol 73 H Lipase Arterial Blood Glucose Arterial Blood Ionized Calcium Acetaminophen Crossmatch 03/17/21 03/17/21 03/17/21 18:15 18:40 18:40 WBC RBC Hgb Hct MCV MCH MCHC RDW Plt Count Seg Neuts % (Manual) Lymphocytes % (Manual) Monocytes % (Manual) Nucleated RBC % Seg Neutrophils # Man Lymphocytes # (Manual) Monocytes # (Manual) INR APTT D-Dimer ABG pH POC ABG pCO2 POC ABG pO2 ABG pO2 94.4 H ABG HCO3 44.8 H ABG O2 Saturation ABG Base Excess 16.6 H ABG Hemoglobin ABG Oxyhemoglobin ABG Potassium ABG Chloride ABG Glucose Oxyhemoglobin Sodium Potassium Chloride Carbon Dioxide BUN Creatinine Glucose POC Glucose Lactic Acid 4.00 H* Calcium Phosphorus Magnesium AST ALT Alkaline Phosphatase Ammonia 116.0 H Troponin T Total Protein Albumin Triglycerides HDL Cholesterol Lipase Arterial Blood Glucose Arterial Blood Ionized Calcium Acetaminophen Crossmatch 03/17/21 03/18/21 03/18/21 23:36 00:25 23:07 WBC RBC Hgb Hct MCV MCH MCHC RDW Plt Count Seg Neuts % (Manual) Lymphocytes % (Manual) Monocytes % (Manual) Nucleated RBC % Seg Neutrophils # Man Lymphocytes # (Manual) Monocytes # (Manual) INR APTT D-Dimer ABG pH POC ABG pCO2 POC ABG pO2 ABG pO2 68.1 L ABG HCO3 40.2 H ABG O2 Saturation ABG Base Excess 14.4 H ABG Hemoglobin 6.5 L ABG Oxyhemoglobin ABG Potassium ABG Chloride ABG Glucose Oxyhemoglobin Sodium Potassium Chloride Carbon Dioxide BUN Creatinine Glucose POC Glucose Lactic Acid 4.00 H* Calcium Phosphorus Magnesium AST ALT Alkaline Phosphatase Ammonia Troponin T Total Protein Albumin Triglycerides HDL Cholesterol Lipase Arterial Blood Glucose Arterial Blood Ionized Calcium Acetaminophen 5.0 L Crossmatch 03/19/21 03/19/21 03/19/21 00:50 03:25 04:59 WBC RBC 3.43 L Hgb 7.0 L Hct 25.6 L MCV 75 L MCH 20 L MCHC 27 L RDW 25.6 H Plt Count Seg Neuts % (Manual) 91.0 H Lymphocytes % (Manual) Monocytes % (Manual) 9.0 H Nucleated RBC % 3.0 H Seg Neutrophils # Man 9.0 H Lymphocytes # (Manual) 0.0 L Monocytes # (Manual) INR APTT D-Dimer ABG pH 7.531 H POC ABG pCO2 POC ABG pO2 ABG pO2 49.6 L ABG HCO3 31.4 H ABG O2 Saturation 99.6 H ABG Base Excess 8.1 H ABG Hemoglobin 7.2 L ABG Oxyhemoglobin ABG Potassium ABG Chloride ABG Glucose Oxyhemoglobin Sodium Potassium Chloride Carbon Dioxide BUN Creatinine Glucose POC Glucose 127 H Lactic Acid Calcium Phosphorus Magnesium AST ALT Alkaline Phosphatase Ammonia Troponin T Total Protein Albumin Triglycerides HDL Cholesterol Lipase Arterial Blood Glucose Arterial Blood Ionized Calcium Acetaminophen Crossmatch 03/19/21 03/19/21 03/19/21 04:59 10:37 12:00 WBC RBC Hgb Hct MCV MCH MCHC RDW Plt Count Seg Neuts % (Manual) Lymphocytes % (Manual) Monocytes % (Manual) Nucleated RBC % Seg Neutrophils # Man Lymphocytes # (Manual) Monocytes # (Manual) INR APTT D-Dimer ABG pH 7.494 H POC ABG pCO2 POC ABG pO2 ABG pO2 107.3 H ABG HCO3 31.6 H ABG O2 Saturation ABG Base Excess 7.7 H ABG Hemoglobin 7.1 L ABG Oxyhemoglobin ABG Potassium ABG Chloride ABG Glucose Oxyhemoglobin Sodium Potassium Chloride 89.5 L Carbon Dioxide BUN Creatinine Glucose 121 H POC Glucose Lactic Acid Calcium Phosphorus Magnesium AST 359 H ALT 1434 H Alkaline Phosphatase Ammonia Troponin T Total Protein 5.7 L Albumin 3.5 L Triglycerides HDL Cholesterol Lipase Arterial Blood Glucose Arterial Blood Ionized Calcium Acetaminophen Crossmatch 03/19/21 03/19/21 03/19/21 12:05 17:52 23:23 WBC RBC Hgb Hct MCV MCH MCHC RDW Plt Count Seg Neuts % (Manual) Lymphocytes % (Manual) Monocytes % (Manual) Nucleated RBC % Seg Neutrophils # Man Lymphocytes # (Manual) Monocytes # (Manual) INR APTT D-Dimer ABG pH POC ABG pCO2 POC ABG pO2 ABG pO2 ABG HCO3 ABG O2 Saturation ABG Base Excess ABG Hemoglobin ABG Oxyhemoglobin ABG Potassium ABG Chloride ABG Glucose Oxyhemoglobin Sodium Potassium Chloride Carbon Dioxide BUN Creatinine Glucose POC Glucose 122 H 114 H 187 H Lactic Acid Calcium Phosphorus Magnesium AST ALT Alkaline Phosphatase Ammonia Troponin T Total Protein Albumin Triglycerides HDL Cholesterol Lipase Arterial Blood Glucose Arterial Blood Ionized Calcium Acetaminophen Crossmatch 03/19/21 03/20/21 03/20/21 Unknown 03:50 03:57 WBC RBC Hgb Hct MCV MCH MCHC RDW Plt Count Seg Neuts % (Manual) Lymphocytes % (Manual) Monocytes % (Manual) Nucleated RBC % Seg Neutrophils # Man Lymphocytes # (Manual) Monocytes # (Manual) INR APTT D-Dimer ABG pH 7.477 H POC ABG pCO2 POC ABG pO2 ABG pO2 67.9 L ABG HCO3 33.9 H ABG O2 Saturation ABG Base Excess 9.5 H ABG Hemoglobin 6.7 L ABG Oxyhemoglobin ABG Potassium ABG Chloride ABG Glucose Oxyhemoglobin Sodium Potassium Chloride Carbon Dioxide BUN Creatinine Glucose POC Glucose 247 H Lactic Acid Calcium Phosphorus Magnesium AST ALT Alkaline Phosphatase Ammonia Troponin T Total Protein Albumin Triglycerides HDL Cholesterol Lipase 12 L Arterial Blood Glucose Arterial Blood Ionized Calcium Acetaminophen Crossmatch 03/20/21 03/20/21 03/20/21 04:18 04:18 10:16 WBC RBC 3.48 L Hgb 7.0 L Hct 25.3 L MCV 73 L MCH 20 L MCHC 28 L RDW 25.2 H Plt Count 541 H Seg Neuts % (Manual) Lymphocytes % (Manual) Monocytes % (Manual) Nucleated RBC % Seg Neutrophils # Man Lymphocytes # (Manual) Monocytes # (Manual) INR APTT D-Dimer ABG pH POC ABG pCO2 POC ABG pO2 ABG pO2 63.3 L ABG HCO3 34.0 H ABG O2 Saturation 90.0 L ABG Base Excess 7.9 H ABG Hemoglobin 10.5 L ABG Oxyhemoglobin ABG Potassium ABG Chloride ABG Glucose Oxyhemoglobin 88.1 L Sodium Potassium Chloride 91.6 L Carbon Dioxide BUN 22 H Creatinine Glucose 245 H POC Glucose Lactic Acid Calcium Phosphorus Magnesium AST 148 H ALT 1096 H Alkaline Phosphatase 133 H Ammonia Troponin T Total Protein Albumin 3.5 L Triglycerides HDL Cholesterol Lipase Arterial Blood Glucose Arterial Blood Ionized Calcium Acetaminophen Crossmatch 03/20/21 03/20/21 03/21/21 12:05 17:26 00:18 WBC RBC Hgb Hct MCV MCH MCHC RDW Plt Count Seg Neuts % (Manual) Lymphocytes % (Manual) Monocytes % (Manual) Nucleated RBC % Seg Neutrophils # Man Lymphocytes # (Manual) Monocytes # (Manual) INR APTT D-Dimer ABG pH POC ABG pCO2 POC ABG pO2 ABG pO2 ABG HCO3 ABG O2 Saturation ABG Base Excess ABG Hemoglobin ABG Oxyhemoglobin ABG Potassium ABG Chloride ABG Glucose Oxyhemoglobin Sodium Potassium Chloride Carbon Dioxide BUN Creatinine Glucose POC Glucose 226 H 215 H 323 H Lactic Acid Calcium Phosphorus Magnesium AST ALT Alkaline Phosphatase Ammonia Troponin T Total Protein Albumin Triglycerides HDL Cholesterol Lipase Arterial Blood Glucose Arterial Blood Ionized Calcium Acetaminophen Crossmatch 03/21/21 03/21/21 03/21/21 04:00 05:05 09:28 WBC 12.0 H RBC 3.42 L Hgb 6.8 L Hct 25.3 L MCV 74 L MCH 20 L MCHC 27 L RDW 25.1 H Plt Count 650 H Seg Neuts % (Manual) Lymphocytes % (Manual) Monocytes % (Manual) Nucleated RBC % Seg Neutrophils # Man Lymphocytes # (Manual) Monocytes # (Manual) INR APTT D-Dimer ABG pH 7.348 L POC ABG pCO2 POC ABG pO2 ABG pO2 56.3 L ABG HCO3 36.9 H ABG O2 Saturation 83.4 L ABG Base Excess 10.0 H ABG Hemoglobin 7.0 L ABG Oxyhemoglobin ABG Potassium ABG Chloride ABG Glucose Oxyhemoglobin 81.7 L Sodium Potassium Chloride Carbon Dioxide BUN Creatinine Glucose POC Glucose 311 H Lactic Acid Calcium Phosphorus Magnesium AST ALT Alkaline Phosphatase Ammonia Troponin T Total Protein Albumin Triglycerides HDL Cholesterol Lipase Arterial Blood Glucose Arterial Blood Ionized Calcium Acetaminophen Crossmatch 03/21/21 03/21/21 03/21/21 09:28 12:31 14:08 WBC RBC Hgb Hct MCV MCH MCHC RDW Plt Count Seg Neuts % (Manual) Lymphocytes % (Manual) Monocytes % (Manual) Nucleated RBC % Seg Neutrophils # Man Lymphocytes # (Manual) Monocytes # (Manual) INR APTT D-Dimer ABG pH POC ABG pCO2 POC ABG pO2 ABG pO2 ABG HCO3 ABG O2 Saturation ABG Base Excess ABG Hemoglobin ABG Oxyhemoglobin ABG Potassium ABG Chloride ABG Glucose Oxyhemoglobin Sodium Potassium 5.1 H D Chloride 94.4 L Carbon Dioxide 33 H BUN 32 H Creatinine Glucose 319 H POC Glucose 295 H Lactic Acid Calcium Phosphorus Magnesium 2.40 H AST ALT 697 H Alkaline Phosphatase 134 H Ammonia Troponin T Total Protein 5.8 L Albumin 3.4 L Triglycerides HDL Cholesterol Lipase Arterial Blood Glucose Arterial Blood Ionized Calcium Acetaminophen Crossmatch See Detail 03/22/21 03/22/21 03/22/21 00:14 04:30 04:39 WBC RBC Hgb Hct MCV MCH MCHC RDW Plt Count Seg Neuts % (Manual) Lymphocytes % (Manual) Monocytes % (Manual) Nucleated RBC % Seg Neutrophils # Man Lymphocytes # (Manual) Monocytes # (Manual) INR APTT D-Dimer ABG pH 7.310 L POC ABG pCO2 POC ABG pO2 ABG pO2 65.4 L ABG HCO3 38.3 H ABG O2 Saturation 90.8 L ABG Base Excess 10.9 H ABG Hemoglobin 6.4 L ABG Oxyhemoglobin ABG Potassium ABG Chloride ABG Glucose Oxyhemoglobin 88.7 L Sodium Potassium Chloride Carbon Dioxide BUN Creatinine Glucose POC Glucose 326 H Lactic Acid Calcium Phosphorus Magnesium AST ALT Alkaline Phosphatase Ammonia Troponin T Total Protein Albumin Triglycerides 189 H HDL Cholesterol Lipase Arterial Blood Glucose Arterial Blood Ionized Calcium Acetaminophen Crossmatch 12/03/22/21 03/22/21 04:39 04:39 09:45 WBC 12.8 H RBC 3.34 L Hgb 6.6 L Hct 24.5 L MCV 73 L MCH 20 L MCHC 27 L RDW 25.5 H Plt Count 644 H Seg Neuts % (Manual) Lymphocytes % (Manual) Monocytes % (Manual) Nucleated RBC % Seg Neutrophils # Man Lymphocytes # (Manual) Monocytes # (Manual) INR APTT D-Dimer ABG pH POC ABG pCO2 65.7 H POC ABG pO2 59.7 L ABG pO2 ABG HCO3 ABG O2 Saturation ABG Base Excess ABG Hemoglobin 8.0 L ABG Oxyhemoglobin 86.3 L ABG Potassium 4.7 H ABG Chloride 94.0 L ABG Glucose 208 H Oxyhemoglobin Sodium Potassium 5.3 H Chloride 94.6 L Carbon Dioxide 34 H BUN 33 H Creatinine Glucose 291 H POC Glucose Lactic Acid Calcium Phosphorus Magnesium AST ALT Alkaline Phosphatase Ammonia Troponin T Total Protein Albumin Triglycerides HDL Cholesterol Lipase Arterial Blood Glucose 208 H Arterial Blood Ionized Calcium Acetaminophen Crossmatch 03/22/21 03/22/21 03/23/21 21:33 23:58 04:42 WBC 14.3 H RBC 3.63 L Hgb 7.6 L Hct 27.0 L MCV 74 L MCH 21 L MCHC 28 L RDW 23.1 H Plt Count 567 H Seg Neuts % (Manual) Lymphocytes % (Manual) Monocytes % (Manual) Nucleated RBC % Seg Neutrophils # Man Lymphocytes # (Manual) Monocytes # (Manual) INR APTT D-Dimer ABG pH POC ABG pCO2 POC ABG pO2 ABG pO2 ABG HCO3 ABG O2 Saturation ABG Base Excess ABG Hemoglobin ABG Oxyhemoglobin ABG Potassium ABG Chloride ABG Glucose Oxyhemoglobin Sodium Potassium Chloride Carbon Dioxide BUN Creatinine Glucose POC Glucose 170 H 156 H Lactic Acid Calcium Phosphorus Magnesium AST ALT Alkaline Phosphatase Ammonia Troponin T Total Protein Albumin Triglycerides HDL Cholesterol Lipase Arterial Blood Glucose Arterial Blood Ionized Calcium Acetaminophen Crossmatch 03/23/21 03/23/21 03/23/21 04:42 04:50 22:25 WBC RBC Hgb Hct MCV MCH MCHC RDW Plt Count Seg Neuts % (Manual) Lymphocytes % (Manual) Monocytes % (Manual) Nucleated RBC % Seg Neutrophils # Man Lymphocytes # (Manual) Monocytes # (Manual) INR APTT D-Dimer ABG pH POC ABG pCO2 POC ABG pO2 ABG pO2 70.7 L ABG HCO3 41.7 H ABG O2 Saturation ABG Base Excess 15.2 H ABG Hemoglobin 5.6 L ABG Oxyhemoglobin ABG Potassium ABG Chloride ABG Glucose Oxyhemoglobin Sodium Potassium Chloride 94.6 L Carbon Dioxide 37 H BUN 27 H Creatinine Glucose 311 H POC Glucose 295 H Lactic Acid Calcium Phosphorus Magnesium AST ALT Alkaline Phosphatase Ammonia Troponin T Total Protein Albumin Triglycerides HDL Cholesterol Lipase Arterial Blood Glucose Arterial Blood Ionized Calcium Acetaminophen Crossmatch 03/23/21 03/24/21 03/24/21 23:13 05:13 07:59 WBC RBC Hgb Hct MCV MCH MCHC RDW Plt Count Seg Neuts % (Manual) Lymphocytes % (Manual) Monocytes % (Manual) Nucleated RBC % Seg Neutrophils # Man Lymphocytes # (Manual) Monocytes # (Manual) INR APTT D-Dimer ABG pH POC ABG pCO2 POC ABG pO2 ABG pO2 ABG HCO3 ABG O2 Saturation ABG Base Excess ABG Hemoglobin ABG Oxyhemoglobin ABG Potassium ABG Chloride ABG Glucose Oxyhemoglobin Sodium Potassium Chloride Carbon Dioxide BUN Creatinine Glucose POC Glucose 336 H 303 H 333 H Lactic Acid Calcium Phosphorus Magnesium AST ALT Alkaline Phosphatase Ammonia Troponin T Total Protein Albumin Triglycerides HDL Cholesterol Lipase Arterial Blood Glucose Arterial Blood Ionized Calcium Acetaminophen Crossmatch 03/24/21 03/24/21 03/24/21 08:03 08:03 08:57 WBC 12.7 H RBC 3.48 L Hgb 7.3 L Hct 26.3 L MCV 76 L MCH 21 L MCHC 28 L RDW 24.1 H Plt Count 499 H Seg Neuts % (Manual) Lymphocytes % (Manual) 1.0 L Monocytes % (Manual) 16.0 H Nucleated RBC % 11.0 H Seg Neutrophils # Man 8.1 H Lymphocytes # (Manual) 0.1 L Monocytes # (Manual) 2.1 H INR APTT D-Dimer ABG pH 7.477 H POC ABG pCO2 56.9 H POC ABG pO2 ABG pO2 ABG HCO3 ABG O2 Saturation ABG Base Excess ABG Hemoglobin 8.0 L ABG Oxyhemoglobin ABG Potassium ABG Chloride 93.0 L ABG Glucose 328 H Oxyhemoglobin Sodium Potassium Chloride 94.4 L Carbon Dioxide 38 H BUN 26 H Creatinine 0.5 L Glucose 348 H POC Glucose Lactic Acid Calcium Phosphorus Magnesium AST ALT Alkaline Phosphatase Ammonia Troponin T Total Protein Albumin Triglycerides HDL Cholesterol Lipase Arterial Blood Glucose 328 H Arterial Blood Ionized Calcium 4.5 L Acetaminophen Crossmatch 03/24/21 03/24/21 03/25/21 12:14 17:45 04:00 WBC 15.8 H RBC Hgb 7.5 L Hct 27.4 L MCV 75 L MCH 21 L MCHC 28 L RDW 24.0 H Plt Count 576 H Seg Neuts % (Manual) Lymphocytes % (Manual) Monocytes % (Manual) Nucleated RBC % Seg Neutrophils # Man Lymphocytes # (Manual) Monocytes # (Manual) INR APTT D-Dimer ABG pH POC ABG pCO2 POC ABG pO2 ABG pO2 ABG HCO3 ABG O2 Saturation ABG Base Excess ABG Hemoglobin ABG Oxyhemoglobin ABG Potassium ABG Chloride ABG Glucose Oxyhemoglobin Sodium Potassium Chloride Carbon Dioxide BUN Creatinine Glucose POC Glucose 315 H 324 H Lactic Acid Calcium Phosphorus Magnesium AST ALT Alkaline Phosphatase Ammonia Troponin T Total Protein Albumin Triglycerides HDL Cholesterol Lipase Arterial Blood Glucose Arterial Blood Ionized Calcium Acetaminophen Crossmatch 03/25/21 03/25/21 03/25/21 07:52 16:37 17:38 WBC RBC Hgb Hct MCV MCH MCHC RDW Plt Count Seg Neuts % (Manual) Lymphocytes % (Manual) Monocytes % (Manual) Nucleated RBC % Seg Neutrophils # Man Lymphocytes # (Manual) Monocytes # (Manual) INR APTT D-Dimer ABG pH POC ABG pCO2 POC ABG pO2 ABG pO2 ABG HCO3 ABG O2 Saturation ABG Base Excess ABG Hemoglobin ABG Oxyhemoglobin ABG Potassium ABG Chloride ABG Glucose Oxyhemoglobin Sodium Potassium Chloride 95.9 L Carbon Dioxide 33 H BUN 24 H Creatinine 0.4 L Glucose 289 H POC Glucose 321 H 295 H Lactic Acid Calcium Phosphorus Magnesium AST ALT Alkaline Phosphatase Ammonia Troponin T Total Protein Albumin Triglycerides HDL Cholesterol Lipase Arterial Blood Glucose Arterial Blood Ionized Calcium Acetaminophen Crossmatch 03/25/21 03/26/21 03/26/21 23:27 05:07 05:35 WBC 20.0 H RBC 3.37 L Hgb 7.0 L Hct 25.2 L MCV 75 L MCH 21 L MCHC 28 L RDW 24.0 H Plt Count 544 H Seg Neuts % (Manual) 72.0 H Lymphocytes % (Manual) 6.0 L Monocytes % (Manual) 8.0 H Nucleated RBC % Seg Neutrophils # Man 14.4 H Lymphocytes # (Manual) Monocytes # (Manual) 1.6 H INR APTT D-Dimer ABG pH POC ABG pCO2 POC ABG pO2 ABG pO2 ABG HCO3 ABG O2 Saturation ABG Base Excess ABG Hemoglobin ABG Oxyhemoglobin ABG Potassium ABG Chloride ABG Glucose Oxyhemoglobin Sodium Potassium Chloride Carbon Dioxide BUN Creatinine Glucose POC Glucose 231 H 200 H Lactic Acid Calcium Phosphorus Magnesium AST ALT Alkaline Phosphatase Ammonia Troponin T Total Protein Albumin Triglycerides HDL Cholesterol Lipase Arterial Blood Glucose Arterial Blood Ionized Calcium Acetaminophen Crossmatch 03/26/21 03/26/21 03/26/21 05:35 10:33 12:12 WBC RBC Hgb Hct MCV MCH MCHC RDW Plt Count Seg Neuts % (Manual) Lymphocytes % (Manual) Monocytes % (Manual) Nucleated RBC % Seg Neutrophils # Man Lymphocytes # (Manual) Monocytes # (Manual) INR APTT D-Dimer ABG pH POC ABG pCO2 POC ABG pO2 ABG pO2 ABG HCO3 ABG O2 Saturation ABG Base Excess ABG Hemoglobin ABG Oxyhemoglobin ABG Potassium ABG Chloride ABG Glucose Oxyhemoglobin Sodium Potassium 5.9 H D Chloride 91.9 L Carbon Dioxide 33 H BUN 20 H Creatinine 0.4 L Glucose 197 H POC Glucose 132 H 176 H Lactic Acid Calcium Phosphorus Magnesium AST ALT 169 H Alkaline Phosphatase 138 H Ammonia Troponin T Total Protein 5.5 L Albumin 3.2 L Triglycerides HDL Cholesterol Lipase Arterial Blood Glucose Arterial Blood Ionized Calcium Acetaminophen Crossmatch 03/26/21 03/26/21 03/26/21 16:50 18:06 22:19 WBC RBC Hgb Hct MCV MCH MCHC RDW Plt Count Seg Neuts % (Manual) Lymphocytes % (Manual) Monocytes % (Manual) Nucleated RBC % Seg Neutrophils # Man Lymphocytes # (Manual) Monocytes # (Manual) INR APTT D-Dimer ABG pH POC ABG pCO2 POC ABG pO2 ABG pO2 ABG HCO3 ABG O2 Saturation ABG Base Excess ABG Hemoglobin ABG Oxyhemoglobin ABG Potassium ABG Chloride ABG Glucose Oxyhemoglobin Sodium Potassium 5.2 H Chloride 91.7 L Carbon Dioxide 38 H BUN 19 H Creatinine 0.4 L Glucose 260 H POC Glucose 248 H 168 H Lactic Acid Calcium Phosphorus Magnesium AST ALT Alkaline Phosphatase Ammonia Troponin T Total Protein Albumin Triglycerides HDL Cholesterol Lipase Arterial Blood Glucose Arterial Blood Ionized Calcium Acetaminophen Crossmatch 03/27/21 03/27/21 03/27/21 01:02 01:32 04:15 WBC 21.4 H RBC 3.45 L Hgb 6.9 L Hct 26.2 L MCV 76 L MCH 20 L MCHC 27 L RDW 24.5 H Plt Count 500 H Seg Neuts % (Manual) Lymphocytes % (Manual) Monocytes % (Manual) Nucleated RBC % Seg Neutrophils # Man Lymphocytes # (Manual) Monocytes # (Manual) INR APTT D-Dimer ABG pH POC ABG pCO2 POC ABG pO2 ABG pO2 ABG HCO3 ABG O2 Saturation ABG Base Excess ABG Hemoglobin ABG Oxyhemoglobin ABG Potassium ABG Chloride ABG Glucose Oxyhemoglobin Sodium Potassium Chloride Carbon Dioxide BUN Creatinine Glucose POC Glucose 219 H 221 H Lactic Acid Calcium Phosphorus Magnesium AST ALT Alkaline Phosphatase Ammonia Troponin T Total Protein Albumin Triglycerides HDL Cholesterol Lipase Arterial Blood Glucose Arterial Blood Ionized Calcium Acetaminophen Crossmatch 03/27/21 03/27/21 03/27/21 04:15 06:37 11:21 WBC RBC Hgb Hct MCV MCH MCHC RDW Plt Count Seg Neuts % (Manual) Lymphocytes % (Manual) Monocytes % (Manual) Nucleated RBC % Seg Neutrophils # Man Lymphocytes # (Manual) Monocytes # (Manual) INR APTT D-Dimer ABG pH POC ABG pCO2 POC ABG pO2 ABG pO2 ABG HCO3 ABG O2 Saturation ABG Base Excess ABG Hemoglobin ABG Oxyhemoglobin ABG Potassium ABG Chloride ABG Glucose Oxyhemoglobin Sodium Potassium 5.3 H Chloride 94.4 L Carbon Dioxide 35 H BUN 20 H Creatinine 0.4 L Glucose 310 H POC Glucose 312 H 273 H Lactic Acid Calcium 8.3 L Phosphorus 4.60 H D Magnesium AST ALT Alkaline Phosphatase Ammonia Troponin T Total Protein Albumin Triglycerides HDL Cholesterol Lipase Arterial Blood Glucose Arterial Blood Ionized Calcium Acetaminophen Crossmatch 03/27/21 03/27/21 03/28/21 16:14 21:21 00:16 WBC RBC Hgb Hct MCV MCH MCHC RDW Plt Count Seg Neuts % (Manual) Lymphocytes % (Manual) Monocytes % (Manual) Nucleated RBC % Seg Neutrophils # Man Lymphocytes # (Manual) Monocytes # (Manual) INR APTT D-Dimer ABG pH POC ABG pCO2 POC ABG pO2 ABG pO2 ABG HCO3 ABG O2 Saturation ABG Base Excess ABG Hemoglobin ABG Oxyhemoglobin ABG Potassium ABG Chloride ABG Glucose Oxyhemoglobin Sodium Potassium Chloride Carbon Dioxide BUN Creatinine Glucose POC Glucose 241 H 179 H 160 H Lactic Acid Calcium Phosphorus Magnesium AST ALT Alkaline Phosphatase Ammonia Troponin T Total Protein Albumin Triglycerides HDL Cholesterol Lipase Arterial Blood Glucose Arterial Blood Ionized Calcium Acetaminophen Crossmatch 03/28/21 03/28/21 03/28/21 04:00 04:00 05:41 WBC 27.1 H RBC 3.46 L Hgb 7.1 L Hct 26.1 L MCV 76 L MCH 20 L MCHC 27 L RDW 24.0 H Plt Count 541 H Seg Neuts % (Manual) Lymphocytes % (Manual) Monocytes % (Manual) Nucleated RBC % Seg Neutrophils # Man Lymphocytes # (Manual) Monocytes # (Manual) INR APTT D-Dimer ABG pH POC ABG pCO2 POC ABG pO2 ABG pO2 ABG HCO3 ABG O2 Saturation ABG Base Excess ABG Hemoglobin ABG Oxyhemoglobin ABG Potassium ABG Chloride ABG Glucose Oxyhemoglobin Sodium Potassium Chloride 95.7 L Carbon Dioxide 36 H BUN 23 H Creatinine 0.4 L Glucose 295 H POC Glucose 279 H Lactic Acid Calcium Phosphorus Magnesium AST ALT Alkaline Phosphatase Ammonia Troponin T Total Protein Albumin Triglycerides HDL Cholesterol Lipase Arterial Blood Glucose Arterial Blood Ionized Calcium Acetaminophen Crossmatch 03/28/21 03/28/21 03/28/21 11:50 16:45 23:15 WBC RBC Hgb Hct MCV MCH MCHC RDW Plt Count Seg Neuts % (Manual) Lymphocytes % (Manual) Monocytes % (Manual) Nucleated RBC % Seg Neutrophils # Man Lymphocytes # (Manual) Monocytes # (Manual) INR APTT D-Dimer ABG pH POC ABG pCO2 POC ABG pO2 ABG pO2 ABG HCO3 ABG O2 Saturation ABG Base Excess ABG Hemoglobin ABG Oxyhemoglobin ABG Potassium ABG Chloride ABG Glucose Oxyhemoglobin Sodium Potassium Chloride Carbon Dioxide BUN Creatinine Glucose POC Glucose 233 H 240 H 189 H Lactic Acid Calcium Phosphorus Magnesium AST ALT Alkaline Phosphatase Ammonia Troponin T Total Protein Albumin Triglycerides HDL Cholesterol Lipase Arterial Blood Glucose Arterial Blood Ionized Calcium Acetaminophen Crossmatch 03/29/21 03/29/21 03/29/21 04:35 04:35 05:05 WBC 29.6 H RBC 3.18 L Hgb 6.7 L Hct 24.2 L MCV 76 L MCH 21 L MCHC 28 L RDW 24.0 H Plt Count 678 H Seg Neuts % (Manual) Lymphocytes % (Manual) Monocytes % (Manual) Nucleated RBC % Seg Neutrophils # Man Lymphocytes # (Manual) Monocytes # (Manual) INR APTT D-Dimer ABG pH POC ABG pCO2 POC ABG pO2 ABG pO2 ABG HCO3 ABG O2 Saturation ABG Base Excess ABG Hemoglobin ABG Oxyhemoglobin ABG Potassium ABG Chloride ABG Glucose Oxyhemoglobin Sodium Potassium Chloride 95.4 L Carbon Dioxide 37 H BUN 22 H Creatinine 0.4 L Glucose 194 H POC Glucose 195 H Lactic Acid Calcium Phosphorus Magnesium AST ALT Alkaline Phosphatase Ammonia Troponin T Total Protein Albumin Triglycerides HDL Cholesterol Lipase Arterial Blood Glucose Arterial Blood Ionized Calcium Acetaminophen Crossmatch 03/29/21 03/29/21 03/29/21 09:24 10:58 17:14 WBC RBC Hgb Hct MCV MCH MCHC RDW Plt Count Seg Neuts % (Manual) Lymphocytes % (Manual) Monocytes % (Manual) Nucleated RBC % Seg Neutrophils # Man Lymphocytes # (Manual) Monocytes # (Manual) INR APTT D-Dimer ABG pH POC ABG pCO2 POC ABG pO2 ABG pO2 ABG HCO3 ABG O2 Saturation ABG Base Excess ABG Hemoglobin ABG Oxyhemoglobin ABG Potassium ABG Chloride ABG Glucose Oxyhemoglobin Sodium Potassium Chloride Carbon Dioxide BUN Creatinine Glucose POC Glucose 106 H 117 H Lactic Acid Calcium Phosphorus Magnesium AST ALT Alkaline Phosphatase Ammonia Troponin T Total Protein Albumin Triglycerides HDL Cholesterol Lipase Arterial Blood Glucose Arterial Blood Ionized Calcium Acetaminophen Crossmatch See Detail 03/29/21 03/29/21 03/30/21 19:32 23:36 01:49 WBC 25.1 H RBC Hgb 9.3 L Hct MCV 77 L MCH 23 L MCHC RDW 22.7 H Plt Count 599 H Seg Neuts % (Manual) Lymphocytes % (Manual) Monocytes % (Manual) Nucleated RBC % Seg Neutrophils # Man Lymphocytes # (Manual) Monocytes # (Manual) INR APTT D-Dimer ABG pH POC ABG pCO2 POC ABG pO2 ABG pO2 ABG HCO3 ABG O2 Saturation ABG Base Excess ABG Hemoglobin ABG Oxyhemoglobin ABG Potassium ABG Chloride ABG Glucose Oxyhemoglobin Sodium Potassium Chloride Carbon Dioxide BUN Creatinine Glucose POC Glucose 57 L 55 L Lactic Acid Calcium Phosphorus Magnesium AST ALT Alkaline Phosphatase Ammonia Troponin T Total Protein Albumin Triglycerides HDL Cholesterol Lipase Arterial Blood Glucose Arterial Blood Ionized Calcium Acetaminophen Crossmatch 03/30/21 03/30/21 03/30/21 04:00 15:52 18:07 WBC RBC Hgb Hct MCV MCH MCHC RDW Plt Count Seg Neuts % (Manual) Lymphocytes % (Manual) Monocytes % (Manual) Nucleated RBC % Seg Neutrophils # Man Lymphocytes # (Manual) Monocytes # (Manual) INR APTT D-Dimer ABG pH POC ABG pCO2 POC ABG pO2 ABG pO2 ABG HCO3 ABG O2 Saturation ABG Base Excess ABG Hemoglobin ABG Oxyhemoglobin ABG Potassium ABG Chloride ABG Glucose Oxyhemoglobin Sodium Potassium Chloride 93.4 L Carbon Dioxide 34 H BUN 18 H Creatinine 0.3 L Glucose 114 H POC Glucose 112 H 130 H Lactic Acid Calcium Phosphorus 4.70 H Magnesium AST ALT Alkaline Phosphatase Ammonia Troponin T Total Protein Albumin Triglycerides HDL Cholesterol Lipase Arterial Blood Glucose Arterial Blood Ionized Calcium Acetaminophen Crossmatch 03/30/21 03/31/21 03/31/21 23:26 04:41 04:41 WBC 30.8 H RBC Hgb 9.3 L Hct MCV MCH 23 L MCHC 28 L RDW 22.3 H Plt Count 642 H Seg Neuts % (Manual) Lymphocytes % (Manual) Monocytes % (Manual) Nucleated RBC % Seg Neutrophils # Man Lymphocytes # (Manual) Monocytes # (Manual) INR APTT D-Dimer ABG pH POC ABG pCO2 POC ABG pO2 ABG pO2 ABG HCO3 ABG O2 Saturation ABG Base Excess ABG Hemoglobin ABG Oxyhemoglobin ABG Potassium ABG Chloride ABG Glucose Oxyhemoglobin Sodium Potassium Chloride 96.3 L Carbon Dioxide 34 H BUN Creatinine 0.3 L Glucose POC Glucose 124 H Lactic Acid Calcium Phosphorus Magnesium AST ALT Alkaline Phosphatase Ammonia Troponin T Total Protein Albumin Triglycerides HDL Cholesterol Lipase Arterial Blood Glucose Arterial Blood Ionized Calcium Acetaminophen Crossmatch 03/31/21 04/01/21 04/01/21 17:45 00:17 04:27 WBC 20.2 H RBC Hgb 9.1 L Hct MCV MCH 23 L MCHC 28 L RDW 22.3 H Plt Count 454 H Seg Neuts % (Manual) Lymphocytes % (Manual) Monocytes % (Manual) Nucleated RBC % Seg Neutrophils # Man Lymphocytes # (Manual) Monocytes # (Manual) INR APTT D-Dimer ABG pH POC ABG pCO2 POC ABG pO2 ABG pO2 ABG HCO3 ABG O2 Saturation ABG Base Excess ABG Hemoglobin ABG Oxyhemoglobin ABG Potassium ABG Chloride ABG Glucose Oxyhemoglobin Sodium Potassium Chloride Carbon Dioxide BUN Creatinine Glucose POC Glucose 130 H 108 H Lactic Acid Calcium Phosphorus Magnesium AST ALT Alkaline Phosphatase Ammonia Troponin T Total Protein Albumin Triglycerides HDL Cholesterol Lipase Arterial Blood Glucose Arterial Blood Ionized Calcium Acetaminophen Crossmatch 04/01/21 04/01/21 04/01/21 04:27 11:56 16:19 WBC RBC Hgb Hct MCV MCH MCHC RDW Plt Count Seg Neuts % (Manual) Lymphocytes % (Manual) Monocytes % (Manual) Nucleated RBC % Seg Neutrophils # Man Lymphocytes # (Manual) Monocytes # (Manual) INR APTT D-Dimer ABG pH POC ABG pCO2 POC ABG pO2 ABG pO2 ABG HCO3 ABG O2 Saturation ABG Base Excess ABG Hemoglobin ABG Oxyhemoglobin ABG Potassium ABG Chloride ABG Glucose Oxyhemoglobin Sodium Potassium Chloride Carbon Dioxide 31 H BUN Creatinine 0.4 L Glucose POC Glucose 112 H 172 H Lactic Acid Calcium Phosphorus Magnesium AST ALT Alkaline Phosphatase Ammonia Troponin T Total Protein Albumin Triglycerides HDL Cholesterol Lipase Arterial Blood Glucose Arterial Blood Ionized Calcium Acetaminophen Crossmatch 04/01/21 04/02/21 04/02/21 23:19 04:30 04:30 WBC 17.3 H RBC Hgb 8.7 L Hct 30.1 L MCV MCH 23 L MCHC 29 L RDW 22.4 H Plt Count 521 H Seg Neuts % (Manual) Lymphocytes % (Manual) Monocytes % (Manual) Nucleated RBC % Seg Neutrophils # Man Lymphocytes # (Manual) Monocytes # (Manual) INR APTT D-Dimer ABG pH POC ABG pCO2 POC ABG pO2 ABG pO2 ABG HCO3 ABG O2 Saturation ABG Base Excess ABG Hemoglobin ABG Oxyhemoglobin ABG Potassium ABG Chloride ABG Glucose Oxyhemoglobin Sodium Potassium Chloride Carbon Dioxide 33 H BUN Creatinine 0.4 L Glucose POC Glucose 112 H Lactic Acid Calcium Phosphorus Magnesium AST ALT Alkaline Phosphatase Ammonia Troponin T Total Protein Albumin Triglycerides HDL Cholesterol Lipase Arterial Blood Glucose Arterial Blood Ionized Calcium Acetaminophen Crossmatch 04/02/21 04/03/21 04/03/21 23:32 05:14 15:30 WBC 14.2 H RBC Hgb 9.6 L Hct MCV MCH 23 L MCHC 29 L RDW 23.4 H Plt Count 662 H Seg Neuts % (Manual) Lymphocytes % (Manual) Monocytes % (Manual) Nucleated RBC % Seg Neutrophils # Man Lymphocytes # (Manual) Monocytes # (Manual) INR APTT D-Dimer ABG pH POC ABG pCO2 POC ABG pO2 ABG pO2 ABG HCO3 ABG O2 Saturation ABG Base Excess ABG Hemoglobin ABG Oxyhemoglobin ABG Potassium ABG Chloride ABG Glucose Oxyhemoglobin Sodium Potassium Chloride Carbon Dioxide BUN Creatinine Glucose POC Glucose 112 H 118 H Lactic Acid Calcium Phosphorus Magnesium AST ALT Alkaline Phosphatase Ammonia Troponin T Total Protein Albumin Triglycerides HDL Cholesterol Lipase Arterial Blood Glucose Arterial Blood Ionized Calcium Acetaminophen Crossmatch 04/03/21 04/03/21 04/03/21 15:30 17:29 23:52 WBC RBC Hgb Hct MCV MCH MCHC RDW Plt Count Seg Neuts % (Manual) Lymphocytes % (Manual) Monocytes % (Manual) Nucleated RBC % Seg Neutrophils # Man Lymphocytes # (Manual) Monocytes # (Manual) INR APTT D-Dimer ABG pH POC ABG pCO2 POC ABG pO2 ABG pO2 ABG HCO3 ABG O2 Saturation ABG Base Excess ABG Hemoglobin ABG Oxyhemoglobin ABG Potassium ABG Chloride ABG Glucose Oxyhemoglobin Sodium Potassium Chloride Carbon Dioxide 35 H BUN Creatinine 0.4 L Glucose 163 H POC Glucose 157 H 66 L Lactic Acid Calcium Phosphorus Magnesium AST ALT Alkaline Phosphatase Ammonia Troponin T Total Protein Albumin Triglycerides HDL Cholesterol Lipase Arterial Blood Glucose Arterial Blood Ionized Calcium Acetaminophen Crossmatch 04/04/21 04/04/21 04/04/21 04:21 04:21 05:35 WBC 14.4 H RBC Hgb 9.9 L Hct MCV MCH 24 L MCHC RDW 23.0 H Plt Count 572 H Seg Neuts % (Manual) Lymphocytes % (Manual) Monocytes % (Manual) Nucleated RBC % Seg Neutrophils # Man Lymphocytes # (Manual) Monocytes # (Manual) INR APTT D-Dimer ABG pH POC ABG pCO2 POC ABG pO2 ABG pO2 ABG HCO3 ABG O2 Saturation ABG Base Excess ABG Hemoglobin ABG Oxyhemoglobin ABG Potassium ABG Chloride ABG Glucose Oxyhemoglobin Sodium 146 H Potassium Chloride 96.8 L Carbon Dioxide 35 H BUN Creatinine 0.4 L Glucose 111 H POC Glucose 124 H Lactic Acid Calcium Phosphorus Magnesium AST ALT Alkaline Phosphatase Ammonia Troponin T Total Protein Albumin Triglycerides HDL Cholesterol Lipase Arterial Blood Glucose Arterial Blood Ionized Calcium Acetaminophen Crossmatch 04/04/21 04/04/21 04/04/21 07:34 10:59 16:22 WBC RBC Hgb Hct MCV MCH MCHC RDW Plt Count Seg Neuts % (Manual) Lymphocytes % (Manual) Monocytes % (Manual) Nucleated RBC % Seg Neutrophils # Man Lymphocytes # (Manual) Monocytes # (Manual) INR APTT D-Dimer ABG pH POC ABG pCO2 POC ABG pO2 ABG pO2 ABG HCO3 ABG O2 Saturation ABG Base Excess ABG Hemoglobin ABG Oxyhemoglobin ABG Potassium ABG Chloride ABG Glucose Oxyhemoglobin Sodium Potassium Chloride Carbon Dioxide BUN Creatinine Glucose POC Glucose 116 H 152 H 191 H Lactic Acid Calcium Phosphorus Magnesium AST ALT Alkaline Phosphatase Ammonia Troponin T Total Protein Albumin Triglycerides HDL Cholesterol Lipase Arterial Blood Glucose Arterial Blood Ionized Calcium Acetaminophen Crossmatch 04/05/21 04/05/21 04/05/21 05:48 11:31 17:45 WBC RBC Hgb Hct MCV MCH MCHC RDW Plt Count Seg Neuts % (Manual) Lymphocytes % (Manual) Monocytes % (Manual) Nucleated RBC % Seg Neutrophils # Man Lymphocytes # (Manual) Monocytes # (Manual) INR APTT D-Dimer ABG pH POC ABG pCO2 POC ABG pO2 ABG pO2 ABG HCO3 ABG O2 Saturation ABG Base Excess ABG Hemoglobin ABG Oxyhemoglobin ABG Potassium ABG Chloride ABG Glucose Oxyhemoglobin Sodium Potassium Chloride Carbon Dioxide BUN Creatinine Glucose POC Glucose 133 H 167 H 181 H Lactic Acid Calcium Phosphorus Magnesium AST ALT Alkaline Phosphatase Ammonia Troponin T Total Protein Albumin Triglycerides HDL Cholesterol Lipase Arterial Blood Glucose Arterial Blood Ionized Calcium Acetaminophen Crossmatch 04/05/21 04/06/21 04/06/21 22:12 06:39 11:35 WBC RBC Hgb Hct MCV MCH MCHC RDW Plt Count Seg Neuts % (Manual) Lymphocytes % (Manual) Monocytes % (Manual) Nucleated RBC % Seg Neutrophils # Man Lymphocytes # (Manual) Monocytes # (Manual) INR APTT D-Dimer ABG pH POC ABG pCO2 POC ABG pO2 ABG pO2 ABG HCO3 ABG O2 Saturation ABG Base Excess ABG Hemoglobin ABG Oxyhemoglobin ABG Potassium ABG Chloride ABG Glucose Oxyhemoglobin Sodium Potassium Chloride Carbon Dioxide BUN Creatinine Glucose POC Glucose 129 H 151 H 165 H Lactic Acid Calcium Phosphorus Magnesium AST ALT Alkaline Phosphatase Ammonia Troponin T Total Protein Albumin Triglycerides HDL Cholesterol Lipase Arterial Blood Glucose Arterial Blood Ionized Calcium Acetaminophen Crossmatch 04/06/21 04/06/21 04/07/21 15:08 18:02 00:42 WBC RBC Hgb Hct MCV MCH MCHC RDW Plt Count Seg Neuts % (Manual) Lymphocytes % (Manual) Monocytes % (Manual) Nucleated RBC % Seg Neutrophils # Man Lymphocytes # (Manual) Monocytes # (Manual) INR APTT D-Dimer ABG pH POC ABG pCO2 POC ABG pO2 ABG pO2 ABG HCO3 ABG O2 Saturation ABG Base Excess ABG Hemoglobin ABG Oxyhemoglobin ABG Potassium ABG Chloride ABG Glucose Oxyhemoglobin Sodium Potassium Chloride Carbon Dioxide BUN Creatinine Glucose POC Glucose 202 H 140 H 150 H Lactic Acid Calcium Phosphorus Magnesium AST ALT Alkaline Phosphatase Ammonia Troponin T Total Protein Albumin Triglycerides HDL Cholesterol Lipase Arterial Blood Glucose Arterial Blood Ionized Calcium Acetaminophen Crossmatch 04/07/21 04/07/21 04/07/21 05:43 11:29 17:18 WBC RBC Hgb Hct MCV MCH MCHC RDW Plt Count Seg Neuts % (Manual) Lymphocytes % (Manual) Monocytes % (Manual) Nucleated RBC % Seg Neutrophils # Man Lymphocytes # (Manual) Monocytes # (Manual) INR APTT D-Dimer ABG pH POC ABG pCO2 POC ABG pO2 ABG pO2 ABG HCO3 ABG O2 Saturation ABG Base Excess ABG Hemoglobin ABG Oxyhemoglobin ABG Potassium ABG Chloride ABG Glucose Oxyhemoglobin Sodium Potassium Chloride Carbon Dioxide BUN Creatinine Glucose POC Glucose 168 H 150 H 148 H Lactic Acid Calcium Phosphorus Magnesium AST ALT Alkaline Phosphatase Ammonia Troponin T Total Protein Albumin Triglycerides HDL Cholesterol Lipase Arterial Blood Glucose Arterial Blood Ionized Calcium Acetaminophen Crossmatch 04/07/21 04/08/21 23:02 04:52 WBC RBC Hgb Hct MCV MCH MCHC RDW Plt Count Seg Neuts % (Manual) Lymphocytes % (Manual) Monocytes % (Manual) Nucleated RBC % Seg Neutrophils # Man Lymphocytes # (Manual) Monocytes # (Manual) INR APTT D-Dimer ABG pH POC ABG pCO2 POC ABG pO2 ABG pO2 ABG HCO3 ABG O2 Saturation ABG Base Excess ABG Hemoglobin ABG Oxyhemoglobin ABG Potassium ABG Chloride ABG Glucose Oxyhemoglobin Sodium Potassium Chloride Carbon Dioxide BUN Creatinine Glucose POC Glucose 110 H 137 H Lactic Acid Calcium Phosphorus Magnesium AST ALT Alkaline Phosphatase Ammonia Troponin T Total Protein Albumin Triglycerides HDL Cholesterol Lipase Arterial Blood Glucose Arterial Blood Ionized Calcium Acetaminophen Crossmatch
--- NOTE | 2021-04-08 11:20 | Progress Note ---
Subjective - Reason for Consult Consult date: 04/08/21 Reason for consult: Anxiety - Chief Complaint Chief complaint: The patient was seen today. She is drowsy but easily arouses. She has her cpap on. She appears comfortable. I told her I started her on medication for her anxiety and asked if she felt better, she nodded "yes." She denies SI/HI or hallucinations of any kind. REVIEW OF SYSTEMS Constitutional: Negative for weight loss ENT: Negative for stridor Respiratory: Negative for cough or hemoptysis All other systems reviewed and are negative MENTAL STATUS EXAMINATION Unable to assess Diagnoses: Generalized Anxiety Disorder Treatment Plan: Effexor 25mg po daily kLONOIN 0.5mg po BID Buspar 30mg po TID Patient should be compliant with medications and not to use drugs and not to drink alcohol. PSYCHOTHERAPY: Supportive psychotherapy provided MEDICAL: Per primary team DELIRIUM PRECAUTIONS: Please re-orient patient frequently, keep lights on during the day, and minimize benzodiazepines and opiates as these medications could worsen patient's confusion. 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 Dictating Machine Transcriber will provide patient with psychiatric out-patient resources FOLLOW-UP: Will sign off Thank you for the consult. Please contact with any questions and/or concerns. Mental Status Exam - Vital signs Last Vital Signs Temp 98.4 F 04/08/21 03:51 Pulse 107 H 04/08/21 08:29 Resp 23 04/08/21 08:29 BP 124/70 04/08/21 03:51 Pulse Ox 91 04/08/21 08:29
[2021-04-08] MEDS: METOPROLOL TARTRATE 25 MG TAB PO SCH ×2 (12:33→22:54)
[2021-04-08] MEDS: predniSONE 5 MG TAB PO SCH (12:33)
[2021-04-08] MEDS: busPIRone 10 MG TAB PO SCH ×3 (12:33→22:54)
[2021-04-08] MEDS: DULoxetine 30 MG CAP PO SCH (12:34)
[2021-04-08] MEDS: DOCUSATE SODIUM 100 MG/10 ML ORAL LIQD PO SCH ×2 (12:34→22:53)
[2021-04-08] MEDS: clonazePAM 0.5 MG TAB PO SCH ×2 (12:34→22:54)
[2021-04-08] MEDS: FAMOTIDINE 20 MG TAB FEEDTUBE SCH ×2 (12:34→22:54)
[2021-04-08] MEDS: SENNOSIDES/DOCUSATE SODIUM 8.6/50 MG TAB FEEDTUBE SCH ×2 (12:34→22:54)
[2021-04-08] MEDS: VENLAFAXINE 25 MG TAB PO SCH (12:34)
[2021-04-09] MEDS: INSULIN LISPRO 100 UNIT/ML SUB-Q SCH ×4 (01:05→17:35)
[2021-04-09] MEDS: dilTIAZem 60 MG TAB FEEDTUBE SCH ×3 (06:17→21:30)
[2021-04-09] MEDS: HEPARIN 5,000 UNIT/1 ML VIAL SUB-Q SCH ×3 (06:18→21:31)
--- NOTE | 2021-04-09 07:47 | Progress Note ---
Assessment and Plan Assessment and plan: Interval history: This is a 60-year-old female with COPD with oxygen dependence currently with palliative care, DM, former nicotine abuse, severe anxiety, GERD, HLD, HTN and PAGE presented to emergency department on 03/17 via EMS with complaints of shortness of breath. On arrival of EMS patient was found to be in SVT with a heart rate of about 200 and blood pressure to be quite elevated with systolic in 200s. She was given 6 mg of adenosine without significant changes subsequently given 12 mg of adenosine with improvement of her heart rate. Upon arrival to the emergency department patient was found to be in atrial fibrillation with RVR and dyspneic. Work-up in the emergency department revealed leukocytosis, lactic acidosis, transaminitis, hypoalbuminemia and a troponin leak. CXR, CT a chest and CT head were unremarkable. Patient was admitted to the hospitalist service with consults to [facility] and cardiology for further work-up of acute on chronic respiratory failure, SVT and hypertensive urgency. Hospital Course to date: 03/18/2021: Patient is intubated and on vent support, Patient is in sinus tachycardia 03/19: COVID-19 PCR negative, remains on ventilatory support, Versed drip changed to propofol. No acute events reported overnight. Tracheal aspirate with few gram-positive Cocci. This afternoon, patient went in to the 150s, giving 500 mL NS bolus and fentanyl push to see if it pain related. If persists then will order prn Ativan per Dr. Gage recommendation. 03/20: Restarted on home metoprolol and abdominal ultrasound showed right hydronephrosis. Abd US shows right hydroureteronephrosis and will obtain a dedicated renal US. She seems to more comfortable on propofol and fentanyl 03/21: Patient's FiO2 had to be decreased overnight due to hypoxia and tachycardia. Hyperkalemia noted and given Kayexalate. 1 unit PRBC for hemoglobin 6.8. [facility] plans to extubate tomorrow. Increase in Lantus. 03/22: Transfuse one unit prbc, failed SBT in the AM d/t hypertension. [facility] extubated the patient but she was reintubated within [address] head ordered and pending read. Given kionex x2 for hyperkalemia 03/23: This morning patient was only on Precedex drip and overnight she had agitation, hypertension and tachycardia. RN instructed to place fentanyl drip. Increase in Lantus for better glucose control. Will remove Wallis today. 03/24/2021: no acute events reported overnight. Patient remains intubated and is currently on fentanyl and Precedex. Increase in Lantus due to hyperglycemia. 03/25: no acute events overnight. increase in lantus and decreased steroids today. 04/02: Bipap q hs and optiflow in the AM, remains on precedex. Psych consulted today. 04/03: Patient failed swallow evaluation today and ST recommended PEG tube placement. NG tube was replaced yesterday and tube feeds changed to cyclic feedings today given she was BiPAP overnight. Psych consulted. Likely DC tomorrow or . 04/04: Patient has long standing anxiety history. Needs medication optimization. May uptitrate buspar. PCCM stated that patient did not tolerate klonopin as an OP. Currently working to taper steroids. No GI consult at this time for PEG as PCCM d/w . Will continue to work with CM for hospice placement. 04/05: Klonopin unfortunately not effective in this patient. Awaiting psych input/eval for today. Will continue to work towards hospice placement with CM. 04/06: On hi flow 35/50. comfortable on my encounter. Effexor added by psychiatry. Will work towards hospice placement with CM. 04/07: Placed on bipap, has been on since this am. comfortable on my encounter. Pending hospice placement by CM. 04/08: Remains on bipap. Will try to aggressively wean if possible. Will work with Cm friday for hospice placement. 04/09: Assessment and plan: Neuro: Hepatic/metabolic encephalopathy, h/o severe anxiety, depression -Admit ammonia 116, 03/09 ammonia 26 -Precedex gtt -xanax, ativan, haldol and morphine prn -Buspar increased dose today on hopes to wean of precedex; home cymbalta on hold (cannot crush) -Psych consulted, started on effexor 25 mg po daily - on buspar -Avoid delirium -Maintain sleep-wake cycle -SAT when appropriate -CT head on admit with no acute findings -Repeat CT head d/t AMS-> no acute changes Cardio: Hypertensive emergency (resolved), s/p A. fib with RVR and SVT, h/o HTN, HLD -s/p X2 doses of adenosine in the ED -Cardiology consulted, appreciate recommendations -PO metoprolol BID -Resume home statin -Blood pressure monitoring per protocol -Echocardiogram 10/2020 showed EF of 50 to 55%, mild diastolic dysfunction, trace to mild tricuspid regurgitation, mild pulmonary hypertension, RVSP 45 mmHg Resp : Acute on chronic respiratory failure, h/o COPD and PAGE -CCM consulted, appreciate recommendations -CTA chest shows no CT evidence of pulmonary embolism, small right and trace left pleural effusion, upper lobe predominant emphysema -Intubated on 03/17 with 7.00 ETT at 20 at the lips and extubated 03/22 but reintubated shortly after; Self-extubated on 03/29 -weaned to BiPAP q hs, Optiflow in AM -VAP bundle -SPO2 monitoring -Methylprednisone weaning-> PO will be slow wean -nebs per [facility] GI: Transaminitis (resolving), h/o chronic constipation -NTR consulted, appreciate recommendations -RUQ US shows right hydroureteronephrosis and possible gallbladder sludge or gallstones -Renal ultrasound shows mild right-sided hydronephrosis with parenchymal thinning and trace perinephric fluid. -need to follow up outpatient -PPI -BR: senakot S and colace, prn mom -BM 04/01 -24 hours +1632 mL -Failed bedside swallow eval -NGT reinserted and TF changed to cyclic; ST recommends PEG : Mild right hydroureteronephrosis -Trend BMP -FWF with TF -stop D51/2 NS when TF resumed -Strict I & Os -Wallis -Renal ultrasound shows mild right-sided hydronephrosis with parenchymal thinning and trace perinephric fluid. Endo: h/o DM -Avoid hypoglycemia -SSI -Accucheck q 6hrs -Lantus -titrate as needed Heme: Anemia, Leukocytosis, h/o Microcytic anemia -Trend CBC -Transfuse for hbg <7 -s/p 2 unit PRBCs -SCDs to BLE while in bed -Lovenox subq ID: Gram positive cocci in tracheal aspirate -02/25 tracheal aspirate with few gram-positive cocci -s/p Levaquin (03/18-) -Trend WBC and fever curve -Repeat blood cultures and sputum culture NGTD -Trend WBC and fever curve Hospitalist Physical - Physical exam Narrative exam: General appearance: Present: no acute distress, obese - EENT Eyes: Present: PERRL, EOM intact ENT: hearing intact, clear oral mucosa, dentition normal - Neck Neck: Present: normal ROM - Respiratory Respiratory effort: normal Respiratory: bilateral: diminished - Cardiovascular Rhythm: regular Heart Sounds: Present: S1 & S2. Absent: systolic murmur, diastolic murmur - Extremities Extremities: no ischemia, pulses intact, pulses symmetrical, normal temperature, normal color Peripheral Pulses: within normal limits - Abdominal General gastrointestinal: soft, non-tender, non-distended, normal bowel sounds - Integumentary Integumentary: Present: warm, dry - Psychiatric Psychiatric: cooperative, agitated - Neurologic Neurologic: CNII-XII intact, no focal deficits, moves all extremities - Constitutional Vitals: Temp Pulse Resp BP Pulse Ox 98.3 F 83 16 125/65 100 04/09/21 04:25 04/09/21 04:25 04/09/21 04:25 04/09/21 04:25 04/09/21 04:25 General appearance: Present: no acute distress, obese HEART Score - HEART Score Troponin: Troponin T < 0.010 ng/mL (0.00-0.029) 03/29/21 09:24 Results - Labs CBC & Chem 7: 04/04/21 04:21 04/04/21 04:21 Labs: Laboratory Last Values WBC 14.4 K/mm3 (4.5-11.0) H 04/04/21 04:21 RBC 4.13 M/mm3 (3.65-5.03) 04/04/21 04:21 Hgb 9.9 gm/dl (10.1-14.3) L 04/04/21 04:21 Hct 33.2 % (30.3-42.9) 04/04/21 04:21 MCV 80 fl (79-97) 04/04/21 04:21 MCH 24 pg (28-32) L 04/04/21 04:21 MCHC 30 % (30-34) 04/04/21 04:21 RDW 23.0 % (13.2-15.2) H 04/04/21 04:21 Plt Count 572 K/mm3 (140-440) H 04/04/21 04:21 [place] % (Auto) [employer] 03/24/21 08:03 Add Manual Diff Complete 03/26/21 05:35 Total Counted 100 03/26/21 05:35 Seg Neuts % (Manual) 72.0 % (40.0-70.0) H 03/26/21 05:35 Band Neutrophils % 5.0 % 03/26/21 05:35 Lymphocytes % (Manual) 6.0 % (13.4-35.0) L 03/26/21 05:35 Reactive Lymphs % (Man) 5.0 % 03/19/21 04:59 Monocytes % (Manual) 8.0 % (0.0-7.3) H 03/26/21 05:35 Metamyelocytes % 3.0 % 03/26/21 05:35 Myelocytes % 5.0 % 03/26/21 05:35 Promyelocytes % 1.0 % 03/26/21 05:35 Nucleated RBC % Not Reportable 03/26/21 05:35 Seg Neutrophils # Man 14.4 K/mm3 (1.8-7.7) H 03/26/21 05:35 Band Neutrophils # 1.0 K/mm3 03/26/21 05:35 Lymphocytes # (Manual) 1.2 K/mm3 (1.2-5.4) 03/26/21 05:35 Abs React Lymphs (Man) 0.0 K/mm3 03/26/21 05:35 Monocytes # (Manual) 1.6 K/mm3 (0.0-0.8) H 03/26/21 05:35 Eosinophils # (Manual) 0.0 K/mm3 (0.0-0.4) 03/26/21 05:35 Basophils # (Manual) 0.0 K/mm3 (0.0-0.1) 03/26/21 05:35 Metamyelocytes # 0.6 K/mm3 03/26/21 05:35 Myelocytes # 1.0 K/mm3 03/26/21 05:35 Promyelocytes # 0.2 K/mm3 03/26/21 05:35 Blast Cells # 0.0 K/mm3 03/26/21 05:35 WBC Morphology Not Reportable 03/26/21 05:35 Hypersegmented Neuts Not Reportable 03/26/21 05:35 Hyposegmented Neuts Not Reportable 03/26/21 05:35 Hypogranular Neuts Not Reportable 03/26/21 05:35 Smudge Cells Not Reportable 03/26/21 05:35 Toxic Granulation Not Reportable 03/26/21 05:35 Toxic Vacuolation Not Reportable 03/26/21 05:35 Dohle Bodies Not Reportable 03/26/21 05:35 Pelger-Huet Anomaly Not Reportable 03/26/21 05:35 Florentino Rods Not Reportable 03/26/21 05:35 Platelet Estimate Consistent w auto 03/26/21 05:35 Clumped Platelets Not Reportable 03/26/21 05:35 Plt Clumps, EDTA Not Reportable 03/26/21 05:35 Large Platelets 1+ 03/26/21 05:35 Giant Platelets Not Reportable 03/26/21 05:35 Platelet Satelliting Not Reportable 03/26/21 05:35 Plt Morphology Comment Not Reportable 03/26/21 05:35 RBC Morphology Not Reportable 03/26/21 05:35 Dimorphic RBCs Not Reportable 03/26/21 05:35 Polychromasia 1+ 03/26/21 05:35 Hypochromasia 2+ 03/26/21 05:35 Poikilocytosis 1+ 03/26/21 05:35 Anisocytosis 2+ 03/26/21 05:35 Microcytosis Not Reportable 03/26/21 05:35 Macrocytosis Not Reportable 03/26/21 05:35 Spherocytes Not Reportable 03/26/21 05:35 Pappenheimer Bodies Not Reportable 03/26/21 05:35 Sickle Cells Not Reportable 03/26/21 05:35 Target Cells 1+ 03/26/21 05:35 Tear Drop Cells 1+ 03/26/21 05:35 Ovalocytes Not Reportable 03/26/21 05:35 Stomatocytes 1+ 03/26/21 05:35 Helmet Cells Not Reportable 03/26/21 05:35 Mabry-Peshtigo Bodies Not Reportable 03/26/21 05:35 [place] Rings Not Reportable 03/26/21 05:35 Marcelo Cells Not Reportable 03/26/21 05:35 Bite Cells Not Reportable 03/26/21 05:35 Crenated Cell Not Reportable 03/26/21 05:35 Elliptocytes Not Reportable 03/26/21 05:35 Acanthocytes (Spur) Not Reportable 03/26/21 05:35 Rouleaux Not Reportable 03/26/21 05:35 Hemoglobin C Crystals Not Reportable 03/26/21 05:35 Schistocytes 1+ 03/26/21 05:35 Malaria parasites Not Reportable 03/26/21 05:35 Maykel Bodies Not Reportable 03/26/21 05:35 Hem Pathologist Commnt No 03/26/21 05:35 PT 12.6 Sec. (12.2-14.9) 03/17/21 17:37 INR 0.85 (0.87-1.13) L 03/17/21 17:37 APTT 23.3 Sec. (24.2-36.6) L 03/17/21 17:37 D-Dimer 947.92 ng/mlDDU (0-234) H 03/17/21 17:37 ABG pH 7.477 (7.320-7.450) H 03/24/21 08:57 POC ABG pCO2 56.9 mmHg (32.0-48.0) H 03/24/21 08:57 ABG pCO2 72.7 mm Hg 03/23/21 04:50 POC ABG pO2 100.6 mmHg (83-108) 03/24/21 08:57 ABG pO2 70.7 mm Hg (80.0-90.0) L 03/23/21 04:50 POC ABG HCO3 41.1 03/24/21 08:57 ABG HCO3 41.7 mmol/L (20.0-26.0) H 03/23/21 04:50 ABG O2 Saturation 98.3 (0-100) 03/24/21 08:57 ABG O2 Content 7.8 (0.0-44) 03/23/21 04:50 POC ABG Base Excess 15.8 03/24/21 08:57 ABG Base Excess 15.2 mmol/L (-2.0-3.0) H 03/23/21 04:50 ABG Hemoglobin 8.0 (12.0-17.5) L 03/24/21 08:57 ABG Oxyhemoglobin 96.8 (94-98) 03/24/21 08:57 ABG Carboxyhemoglobin 1.7 % (0.0-5.0) 03/23/21 04:50 ABG Methemoglobin 0.3 (0.0-1.5) 03/24/21 08:57 ABG Sodium 139.1 mmol/L (136.0-145.0) 03/24/21 08:57 ABG Potassium 3.9 mmol/L (3.40-4.50) 03/24/21 08:57 ABG Chloride 93.0 mmol/L (98-107) L 03/24/21 08:57 ABG Glucose 328 mg/dL (65-95) H 03/24/21 08:57 Oxyhemoglobin 96.9 % (95.0-99.0) 03/23/21 04:50 Carboxyhemoglobin 1.2 (0.5-1.5) 03/24/21 08:57 FiO2 40 % 03/23/21 04:50 FiO2 % 40 03/24/21 08:57 Sodium 146 mmol/L (137-145) H 04/04/21 04:21 Potassium 4.1 mmol/L (3.6-5.0) 04/04/21 04:21 Chloride 96.8 mmol/L (98-107) L 04/04/21 04:21 Carbon Dioxide 35 mmol/L (22-30) H 04/04/21 04:21 Anion Gap 18 mmol/L 04/04/21 04:21 BUN 9 mg/dL (7-17) 04/04/21 04:21 Creatinine 0.4 mg/dL (0.6-1.2) L 04/04/21 04:21 Estimated GFR > 60 ml/min 04/04/21 04:21 BUN/Creatinine Ratio 23 % 04/04/21 04:21 Glucose 111 mg/dL (65-100) H 04/04/21 04:21 POC Glucose 109 mg/dL (70-105) H 04/09/21 06:02 Lactic Acid 4.00 mmol/L (0.7-2.0) H* 03/17/21 23:36 Calcium 9.5 mg/dL (8.4-10.2) 04/04/21 04:21 Phosphorus 4.50 mg/dL (2.5-4.5) 03/31/21 04:41 Magnesium 2.20 mg/dL (1.7-2.3) 03/31/21 04:41 Total Bilirubin 0.30 mg/dL (0.1-1.2) 03/26/21 05:35 Direct Bilirubin < 0.2 mg/dL (0-0.2) 03/19/21 12:00 Indirect Bilirubin 0.1 mg/dL 03/19/21 12:00 AST 35 units/L (5-40) 03/26/21 05:35 ALT 169 units/L (7-56) H 03/26/21 05:35 Alkaline Phosphatase 138 units/L (35-129) H 03/26/21 05:35 Ammonia 26.0 umol/L (25-60) 03/19/21 12:00 Total Creatine Kinase 123 units/L (30-135) 03/29/21 09:24 CK-MB (CK-2) 1.5 ng/mL (0.0-4.0) 03/29/21 09:24 CK-MB (CK-2) Rel Index 1.2 (0-4) 03/29/21 09:24 Troponin T < 0.010 ng/mL (0.00-0.029) 03/29/21 09:24 NT-Pro-B Natriuret Pep 576.0 pg/mL (0-900) 03/17/21 17:36 Total Protein 5.5 g/dL (6.3-8.2) L 03/26/21 05:35 Albumin 3.2 g/dL (3.9-5) L 03/26/21 05:35 Albumin/Globulin Ratio 1.4 % 03/26/21 05:35 Triglycerides 189 mg/dL (2-149) H 03/22/21 04:39 Cholesterol 191 mg/dL (50-199) 03/17/21 17:36 LDL Cholesterol Direct 80 mg/dL (50-130) 03/17/21 17:36 HDL Cholesterol 73 mg/dL (40-59) H 03/17/21 17:36 Cholesterol/HDL Ratio 2.61 % 03/17/21 17:36 Amylase 78 units/L (27-131) 03/19/21 Unknown Lipase 12 units/L (13-60) L 03/19/21 Unknown TSH 3.510 mlU/mL (0.270-4.200) 03/17/21 22:57 Arterial Blood Glucose 328 mg/dL (65-95) H 03/24/21 08:57 Arterial Blood Ionized Calcium 4.5 mg/dL (4.6-5.3) L 03/24/21 08:57 Urine Color Mayuri (Yellow) 03/17/21 19:42 Urine Turbidity Slightly-cloudy (Clear) 03/17/21 19:42 Urine pH 7.0 (5.0-7.0) 03/17/21 19:42 Ur Specific [place] 1.015 (1.003-1.030) 03/17/21 19:42 Urine Protein 100 mg/dl mg/dL (Negative) 03/17/21 19:42 Urine Glucose (UA) Neg mg/dL (Negative) 03/17/21 19:42 Urine Ketones 20 mg/dL (Negative) 03/17/21 19:42 Urine Blood Sm (Negative) 03/17/21 19:42 Urine Nitrite Neg (Negative) 03/17/21 19:42 Urine Bilirubin Neg (Negative) 03/17/21 19:42 Urine Urobilinogen 2.0 mg/dL (<2.0) 03/17/21 19:42 Ur Leukocyte Esterase Neg (Negative) 03/17/21 19:42 Urine WBC (Auto) 4.0 /HPF (0.0-6.0) 03/17/21 19:42 Urine RBC (Auto) 6.0 /HPF (0.0-6.0) 03/17/21 19:42 U Epithel Cells (Auto) 5.0 /HPF (0-13.0) 03/17/21 19:42 Urine Bacteria (Auto) 1+ /HPF (Negative) 03/17/21 19:42 Urine Mucus 1+ /HPF 03/17/21 19:42 Urine Yeast (Budding) Few /HPF 03/17/21 19:42 Acetaminophen 5.0 ug/mL (10.0-30.0) L 03/18/21 23:07 Coronavirus (PCR) Negative (Negative) 03/19/21 Unknown Blood Type A POSITIVE 03/29/21 09:24 Antibody Screen Negative 03/29/21 09:24 Crossmatch See Detail 03/29/21 09:24 Wallis/IV: Voiding Method External Female Catheter Active Medications - Current Medications Current Medications: Generic Name Dose Route Start Last Admin Trade Name Freq PRN Reason Stop Dose Admin Acetaminophen 650 mg 03/18/21 00:05 04/04/21 06:20 Acetaminophen 325 Mg Tab PO 650 mg Q6H PRN Administration Pain MILD(1-3)/Fever >100.5/TOVAR Albuterol 2.5 mg 03/22/21 08:00 04/03/21 15:40 Albuterol 2.5 Mg/3 Ml Nebu IH 2.5 mg Q6H PRN Administration Wheezing Alprazolam 1 mg 03/26/21 10:53 04/08/21 00:36 Alprazolam 1 Mg Tab PO 1 mg Q8H PRN Administration AGITATION Arformoterol Tartrate 15 mcg 03/24/21 11:00 04/08/21 20:24 Arformoterol 15 Mcg/2 Ml Nebu IH 15 mcg Q12HRT BUTCH Administration Atorvastatin Calcium 10 mg 03/19/21 22:00 04/08/21 22:54 Atorvastatin 10 Mg Tab PO 10 mg QHS BUTCH Administration Budesonide 0.5 mg 03/24/21 11:00 04/08/21 20:24 Budesonide 0.5 Mg/2 Ml Nebu IH 0.5 mg Q12HRT BUTCH Administration Buspirone HCl 30 mg 04/04/21 16:00 04/08/21 22:54 Buspirone 10 Mg Tab PO 30 mg TID BUTCH Administration Clonazepam 0.5 mg 04/03/21 15:00 04/08/21 22:54 Clonazepam 0.5 Mg Tab PO 0.5 mg BID BUTCH Administration Dextrose 0 ml 03/17/21 23:58 03/31/21 05:16 Dextrose 50% In Water (25gm) 50 Ml Syringe IV 10 ml Q30MIN PRN Administration Hypoglycemia Protocol Diltiazem HCl 60 mg 04/04/21 18:00 04/09/21 06:17 Diltiazem 60 Mg Tab FEEDTUBE 60 mg Q8HR BUTCH Administration Docusate Sodium 100 mg 03/23/21 10:00 04/08/21 22:53 Docusate Sodium 100 Mg/10 Ml Oral Liqd PO 100 mg BID BUTCH Administration Duloxetine HCl 30 mg 04/05/21 10:00 04/08/21 12:34 Duloxetine 30 Mg Cap PO 30 mg QDAY BUTCH Administration Famotidine 20 mg 03/20/21 22:00 04/08/21 22:54 Famotidine 20 Mg Tab FEEDTUBE 20 mg BID BUTCH Administration Haloperidol Lactate 5 mg 03/30/21 09:52 04/01/21 08:33 Haloperidol Lactate 5 Mg/1 Ml Inj IV 5 mg Q6H PRN Administration Agitation Heparin Sodium (Porcine) 5,000 unit 03/18/21 06:00 04/09/21 06:18 Heparin 5,000 Unit/1 Ml Vial SUB-Q 5,000 unit Q8HR BUTCH Administration Hydralazine HCl 5 mg 03/29/21 10:56 Hydralazine 20 Mg/1 Ml Inj IV Q4HR PRN SBP >160 Hydrophilic Ointment 1 applic 03/17/21 17:35 Lip Therapy Vaseline TP Q2HR PRN Dry Lips Insulin Human Lispro 0 unit 03/19/21 12:00 04/09/21 06:18 Insulin Lispro 100 Unit/Ml SUB-Q Not Given Q6HR [facility] Protocol Lorazepam 0.5 mg 03/30/21 09:53 04/08/21 08:25 Lorazepam 2 Mg/Ml Vial IV 0.5 mg Q4H PRN Administration Anxiety Magnesium Hydroxide 30 ml 03/18/21 00:05 03/24/21 09:36 Magnesium Hydroxide (Mom) Oral Liqd Udc PO 30 ml Q4H PRN Administration Constipation Metoprolol Tartrate 25 mg 03/20/21 22:00 04/08/21 22:54 Metoprolol Tartrate 25 Mg Tab PO 25 mg BID BUTCH Administration Morphine Sulfate 2 mg 03/18/21 00:05 04/08/21 08:25 Morphine 2 Mg/1 Ml Inj IV 2 mg Q4H PRN Administration Pain, Moderate (4-6) Morphine Sulfate 4 mg 03/18/21 00:05 04/03/21 17:21 Morphine 4 Mg/1 Ml Inj IV 4 mg Q4H PRN Administration Pain , Severe (7-10) Multi-Ingred Cream/Lotion/Oil/Oint 1 applic 03/17/21 17:35 Mineral Oil/Petrolatum, White Ophth Oint 3.5 Gm OU Q4HR PRN Dry Eye(s) Prednisone 10 mg 04/06/21 20:00 04/08/21 12:33 Prednisone 5 Mg Tab PO 10 mg QDAY BUTCH Administration Senna/Docusate Sodium 1 tab 03/17/21 22:00 04/08/21 22:54 Sennosides/Docusate Sodium 8.6/50 Mg Tab FEEDTUBE 1 tab BID BUTCH Administration Simple Syrup 15 ml 03/19/21 18:16 04/04/21 22:02 Simple Syrup 15 Ml FEEDTUBE 15 ml PRN PRN Administration Hypoglycemia Simple Syrup 30 ml 03/19/21 18:16 Simple Syrup 15 Ml FEEDTUBE PRN PRN Hypoglycemia Sodium Chloride 10 ml 03/18/21 10:00 04/08/21 22:55 Sodium Chloride 0.9% 10 Ml Flush Syringe IV 10 ml BID BUTCH Administration Sodium Chloride 10 ml 03/17/21 23:58 03/22/21 23:20 Sodium Chloride 0.9% 10 Ml Flush Syringe IV 10 ml PRN PRN Administration LINE FLUSH Venlafaxine HCl 25 mg 04/06/21 13:00 04/08/21 12:34 Venlafaxine 25 Mg Tab PO 25 mg QDAY BUTCH Administration Nutrition/Malnutrition Assess - Dietary Evaluation Nutrition/Malnutrition Findings: Nutrition Notes Start: 03/18/21 09:46 Freq: Status: Active Protocol: Document 04/05/21 18:19 PAM (Rec: 04/05/21 18:26 PAM [id number]) Nutrition Notes Initial or Follow up Brief Note Current Diet Cyclic 12 hr TF-Vital AF 1.2 Brenden @ 88 ml/hr (since D 04/03) . Height 5 ft 6 in Weight 82.8 kg [place] Body Weight (kg) 59.09 BMI 29.5 Weight change and time frame No body weight change reported . Weight Status Overweight Subjective/Other Information RD consult for routine F/U on TF continuation. TF continues Cyclic as prescribed, therefore, well tolerated. Percent of energy/protein needs met: Prescribed Vital AF 1.2 Brenden @ 88 ml/hr provides for energy/ protein needs (1,260 Kcal/79 g ) during LOS, 75% Kcal; 80% AA . #1 Nutrition Diagnosis Inadequate oral intake Comments: Cycle mode well tolerated. Diagnosis Progress(for reassessment Improved documentation) Nutrition Intervention Nutrition Support: Vital AF 1.2 Brenden @ 88 ml/hr. Flush: 140 ml water Q 4 hr. Kcal 1,260 Protein (gm) 79 Carbohydrates (gm) 116 Fat (gm) 57 Fluid (mL) 852 Fiber (gm) 5 % RDI: 75% Kcal; 80% AA. Goal #1 Provide at least 75% of energy /protein needs through Enteral Feeding during LOS. Follow-Up By: 04/12/21 Additional Comments Continue monitoring TF tolerance, and BM.
[2021-04-09] MEDS: BUDESONIDE 0.5 MG/2 ML NEBU IH SCH ×2 (08:46→20:50)
[2021-04-09] MEDS: ARFORMOTEROL 15 MCG/2 ML NEBU IH SCH ×2 (08:46→20:50)
[2021-04-09] MEDS: METOPROLOL TARTRATE 25 MG TAB PO SCH ×2 (09:04→21:29)
[2021-04-09] MEDS: DOCUSATE SODIUM 100 MG/10 ML ORAL LIQD PO SCH ×2 (09:04→21:31)
[2021-04-09] MEDS: busPIRone 10 MG TAB PO SCH ×3 (09:05→21:30)
[2021-04-09] MEDS: DULoxetine 30 MG CAP PO SCH (09:05)
[2021-04-09] MEDS: FAMOTIDINE 20 MG TAB FEEDTUBE SCH ×2 (09:05→21:29)
[2021-04-09] MEDS: clonazePAM 0.5 MG TAB PO SCH ×2 (09:05→21:30)
[2021-04-09] MEDS: VENLAFAXINE 25 MG TAB PO SCH (09:07)
[2021-04-09] MEDS: SENNOSIDES/DOCUSATE SODIUM 8.6/50 MG TAB FEEDTUBE SCH ×2 (09:07→21:38)
[2021-04-09] MEDS: MORPHINE 2 MG/1 ML INJ IV PRN ×2 (09:41→20:05)
[2021-04-09] MEDS: predniSONE 10 MG TAB PO SCH (10:33)
--- NOTE | 2021-04-09 11:48 | Discharge Summary ---
Providers - Providers Date of Admission: 03/17/21 23:58 Date of discharge: 04/09/21 Attending physician: LEANDER ARAIZA MD 03/18/21 00:00 Consult to Physician [CONS] Routine Comment: Consulting Provider: HELADIO GAGE Physician Instructions: Reason For Exam: Respiratory failure,Elevated troponin Consult to Physician [CONS] Routine Comment: Dr. Lua spoke with Dr. Gage @ [phone] Consulting Provider: HELADIO GAGE Physician Instructions: Reason For Exam: Acute hypoxemic respiratory failure, ICU managemen 03/18/21 00:47 Consult to Cardiology [CONS] Routine Consulting Provider: SINCERE BECERRA Reason For Exam: Cardiac Arrhythmia 03/26/21 05:27 Consult to Wound/ET Nurse [CONS] Routine Reason For Exam: wound eval 03/26/21 11:34 Midline [Consult to PICC Line RN] [CONS] Stat Reason For Exam: No iv access Type Line:: Midline 04/01/21 15:21 Speech Therapy Evaluation and Treat [CONS] Routine Reason For Exam: Failed bedside swallow 04/02/21 13:15 Consult to Physician [CONS] Routine Comment: Consulting Provider: SHAYNE KERR Physician Instructions: Reason For Exam: severe anxiety/depresion Primary care physician: INSTRUCTOR HAIRSPRING Hospitalization Reason for admission: shortness of breath Condition: Stable Hospital course: Interval history: This is a 60-year-old female with COPD with oxygen dependence currently with palliative care, DM, former nicotine abuse, severe anxiety, GERD, HLD, HTN and PAGE presented to emergency department on 03/17 via EMS with complaints of shortness of breath. On arrival of EMS patient was found to be in SVT with a heart rate of about 200 and blood pressure to be quite elevated with systolic in 200s. She was given 6 mg of adenosine without significant changes subsequently given 12 mg of adenosine with improvement of her heart rate. Upon arrival to the emergency department patient was found to be in atrial fibrillation with RVR and dyspneic. Work-up in the emergency department revealed leukocytosis, lactic acidosis, transaminitis, hypoalbuminemia and a troponin leak. CXR, CT a chest and CT head were unremarkable. Patient was admitted to the hospitalist service with consults to [facility] and cardiology for further work-up of acute on chronic respiratory failure, SVT and hypertensive urgency. Hospital Course to date: 03/18/2021: Patient is intubated and on vent support, Patient is in sinus tachycardia 03/19: COVID-19 PCR negative, remains on ventilatory support, Versed drip c hanged to propofol. No acute events reported overnight. Tracheal aspirate with few gram-positive Cocci. This afternoon, patient went in to the 150s, giving 500 mL NS bolus and fentanyl push to see if it pain related. If persists then will order prn Ativan per Dr. Gage recommendation. 03/20: Restarted on home metoprolol and abdominal ultrasound showed right hydronephrosis. Abd US shows right hydroureteronephrosis and will obtain a dedicated renal US. She seems to more comfortable on propofol and fentanyl 03/21: Patient's FiO2 had to be decreased overnight due to hypoxia and tachycardia. Hyperkalemia noted and given Kayexalate. 1 unit PRBC for hemoglobin 6.8. [facility] plans to extubate tomorrow. Increase in Lantus. 03/22: Transfuse one unit prbc, failed SBT in the AM d/t hypertension. [facility] extubated the patient but she was reintubated within [address] head ordered and pending read. Given kionex x2 for hyperkalemia 03/23: This morning patient was only on Precedex drip and overnight she had agitation, hypertension and tachycardia. RN instructed to place fentanyl drip. Increase in Lantus for better glucose control. Will remove Wallis today. 03/24/2021: no acute events reported overnight. Patient remains intubated and is currently on fentanyl and Precedex. Increase in Lantus due to hyperglycemia. 03/25: no acute events overnight. increase in lantus and decreased steroids today. 04/02: Bipap q hs and optiflow in the AM, remains on precedex. Psych consulted today. 04/03: Patient failed swallow evaluation today and ST recommended PEG tube placement. NG tube was replaced yesterday and tube feeds changed to cyclic feedings today given she was BiPAP overnight. Psych consulted. Likely DC tomorrow or . 04/04: Patient has long standing anxiety history. Needs medication optimization. May uptitrate buspar. PCCM stated that patient did not tolerate klonopin as an OP. Currently working to taper steroids. No GI consult at this time for PEG as PCCM d/w . Will continue to work with CM for hospice placement. 04/05: Klonopin unfortunately not effective in this patient. Awaiting psych input/eval for today. Will continue to work towards hospice placement with CM. 04/06: On hi flow 35/50. comfortable on my encounter. Effexor added by psychiatry. Will work towards hospice placement with CM. 04/07: Placed on bipap, has been on since this am. comfortable on my encounter. Pending hospice placement by CM. 04/08: Remains on bipap. Will try to aggressively wean if possible. Will work with Cm friday for hospice placement. 04/09: Discharge to hospice. Arrangements made by CM Assessment and plan: Neuro: Hepatic/metabolic encephalopathy, h/o severe anxiety, depression -Admit ammonia 116, 03/09 ammonia 26 -Precedex gtt -xanax, ativan, haldol and morphine prn -Buspar increased dose today on hopes to wean of precedex; home cymbalta on hold (cannot crush) -Psych consulted, started on effexor 25 mg po daily - on buspar -Avoid delirium -Maintain sleep-wake cycle -SAT when appropriate -CT head on admit with no acute findings -Repeat CT head d/t AMS-> no acute changes Cardio: Hypertensive emergency (resolved), s/p A. fib with RVR and SVT, h/o HTN, HLD -s/p X2 doses of adenosine in the ED -Cardiology consulted, appreciate recommendations -PO metoprolol BID -Resume home statin -Blood pressure monitoring per protocol -Echocardiogram 10/2020 showed EF of 50 to 55%, mild diastolic dysfunction, trace to mild tricuspid regurgitation, mild pulmonary hypertension, RVSP 45 mmHg Resp : Acute on chronic respiratory failure, h/o COPD and PAGE -CCM consulted, appreciate recommendations -CTA chest shows no CT evidence of pulmonary embolism, small right and trace left pleural effusion, upper lobe predominant emphysema -Intubated on 03/17 with 7.00 ETT at 20 at the lips and extubated 03/22 but reintubated shortly after; Self-extubated on 03/29 -weaned to BiPAP q hs, Optiflow in AM -VAP bundle -SPO2 monitoring -Methylprednisone weaning-> PO will be slow wean -nebs per CCM GI: Transaminitis (resolving), h/o chronic constipation -NTR consulted, appreciate recommendations -RUQ US shows right hydroureteronephrosis and possible gallbladder sludge or gallstones -Renal ultrasound shows mild right-sided hydronephrosis with parenchymal thinning and trace perinephric fluid. -need to follow up outpatient -PPI -BR: senakot S and colace, prn mom -BM 04/01 -24 hours +1632 mL -Failed bedside swallow eval -NGT reinserted and TF changed to cyclic; ST recommends PEG : Mild right hydroureteronephrosis -Trend BMP -FWF with TF -stop D51/2 NS when TF resumed -Strict I & Os -Wallis -Renal ultrasound shows mild right-sided hydronephrosis with parenchymal thinning and trace perinephric fluid. Endo: h/o DM -Avoid hypoglycemia -SSI -Accucheck q 6hrs -Lantus -titrate as needed Heme: Anemia, Leukocytosis, h/o Microcytic anemia -Trend CBC -Transfuse for hbg <7 -s/p 2 unit PRBCs -SCDs to BLE while in bed -Lovenox subq ID: Gram positive cocci in tracheal aspirate -02/25 tracheal aspirate with few gram-positive cocci -s/p Levaquin (03/18-) -Trend WBC and fever curve -Repeat blood cultures and sputum culture NGTD -Trend WBC and fever curve Disposition: 51 HOSPICE/MEDICAL FACILITY Final Discharge Diagnosis (Prints w/discharge instructions): Acute on Chronic Respiratory Failure due to COPD and Obstructive Sleep Apnea Time spent for discharge: 35 Core Measure Documentation - Palliative Care Palliative Care/ Comfort Measures: Hospice Care - Core Measures Any of the following diagnoses?: none Exam - Physical Exam Narrative exam: General appearance: Present: no acute distress, obese - EENT Eyes: Present: PERRL, EOM intact ENT: hearing intact, clear oral mucosa, dentition normal - Neck Neck: Present: normal ROM - Respiratory Respiratory effort: normal Respiratory: bilateral: diminished - Cardiovascular Rhythm: regular Heart Sounds: Present: S1 & S2. Absent: systolic murmur, diastolic murmur - Extremities Extremities: no ischemia, pulses intact, pulses symmetrical, normal temperature, normal color Peripheral Pulses: within normal limits - Abdominal General gastrointestinal: soft, non-tender, non-distended, normal bowel sounds - Integumentary Integumentary: Present: warm, dry - Psychiatric Psychiatric: cooperative, agitated - Neurologic Neurologic: CNII-XII intact, no focal deficits, moves all extremities - Constitutional Vitals: Temp Pulse Resp BP Pulse Ox 99.0 F 101 H 24 117/74 97 04/09/21 08:13 04/09/21 08:48 04/09/21 08:48 04/09/21 08:13 04/09/21 08:48 Plan Follow up with: PRIMARY CARE, [Primary Care Provider] - 7 Days Prescriptions: Buspirone HCl [busPIRone] 30 mg PO TID #90 tab Venlafaxine [Effexor 25mg tab] 25 mg PO DAILY #30 clonazePAM [ Klonopin] 0.5 mg PO BID PRN #60 tab PRN Reason: Anxiety
--- NOTE | 2021-04-09 14:12 | Progress Note ---
Assessment and Plan - Patient Problems (1) Respiratory failure Current Visit: Yes Status: Acute Plan to address problem: Patient with long history of severe, oxygen dependent COPD, presented with respiratory failure due to COPD exacerbation. Stable sinus rhythm in the CCU. Continue supportive management and current treatment of COPD exacerbation. Subjective Date of service: 04/09/21 Principal diagnosis: Atrial fibrillation with RVR, respiratory failure Interval history: Patient is comfortable on bedrest, on oxygen by facemask. No cardiac complaints, no new cardiac events reported. On hospital monitor, she has a sinus rhythm at 85. Objective Vital Signs Temp Pulse Pulse Pulse Resp Resp BP 04/09/21 11:36 98.7 F 87 16 137/82 04/09/21 10:00 88 22 04/09/21 08:48 101 H 24 04/09/21 08:13 99.0 F 93 H 19 117/74 04/09/21 08:00 103 H 24 04/09/21 04:25 98.3 F 83 16 125/65 04/09/21 03:15 91 H 16 04/09/21 02:04 04/08/21 20:28 96 H 19 04/08/21 20:26 91 H 19 04/08/21 19:49 98.1 F 61 18 126/73 04/08/21 17:18 90 15 04/08/21 16:00 98.3 F 90 18 BP Pulse Ox 04/09/21 11:36 100 04/09/21 10:00 99 04/09/21 08:48 97 04/09/21 08:13 96 04/09/21 08:00 04/09/21 04:25 100 04/09/21 03:15 99 04/09/21 02:04 99 04/08/21 20:28 04/08/21 20:26 99 04/08/21 19:49 99 04/08/21 17:18 100 04/08/21 16:00 129/71 100 - Physical Examination General: No Apparent Distress HEENT: Positive: PERRL, Normocephaly, Other (Moderately obese) Neck: Positive: neck supple, trachea midline Cardiac: Positive: Reg Rate and Rhythm Lungs: Positive: Decreased Breath Sounds Neuro: Positive: Grossly Intact Abdomen: Positive: Soft Skin: Positive: Clear Extremities: Absent: edema
[2021-04-09] MEDS: ALPRAZolam 1 MG TAB PO PRN (14:19)
--- NOTE | 2021-04-09 16:24 | Event Note ---
Date: 04/09/21 Discharge cancelled. After extensive discussion with speech therapy, they did not deem patient a candidate for po intake. Per assessments, patient would struggle with swallowing and immediately desaturate even though mask was only off temporarily. Patient remains a high risk for aspiration. Speech therapy did not believe her recovery potential to be high and recommended PEG placement. Discussed findings with who was agreeable to GI consultation. Would like to discuss with GI physician prior to placement which I reassured him is a ro utine procedure prior to all non-emergent procedures. Will place consultation for GI for PEG tube.
--- NOTE | 2021-04-09 20:19 | Gastroenterology Consultation ---
History of Present Illness - Reason for Consult Consult date: 04/09/21 Neurogenic Dysphagia Requesting physician: LEANDER ROE - History of Present Illness Dr Roe consulted our group for a failed ST evaluation and consideration of a PEG tube. 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 She has been hospitalized here for the last few weeks for COPD/CATALINA, HTN urgency, failure to thrive, among st other issues. After long d/w the family, it was considered that she go to home hospice. However, the family does not wish to proceed with that option, and since the ST exam was failed, consideration for a PEG was made. The patient is on BiPAP with increased WOB and can give me no hx; I discussed the situation with the patient's . Past History Past Medical History: arthritis, COPD, diabetes, GERD, hypertension, hyperlipidemia Past Surgical History: appendectomy, hysterectomy, Other (Sigmoid colon resection/BERNARDINO (diverticulitis)) Social history: smoking (Former Smoker) Family history: no significant family history Medications and Allergies Allergies Allergy/AdvReac Type Severity Reaction Status Date / Time ipratropium [From Atrovent] Allergy Unknown Verified 11/13/20 08:53 Penicillins Allergy Unknown Verified 11/13/20 08:53 lactose AdvReac Unknown Verified 11/13/20 08:53 shellfish derived AdvReac Swelling Verified 11/13/20 08:53 Tea Allergy Itching Uncoded 07/16/20 19:49 Home Medications Medication Instructions Recorded Confirmed Last Taken Type Plecanatide [Trulance] 3 mg PO QDAY 11/14/20 03/18/21 Unknown History AtorvaSTATin 10 mg PO QHS tablet 11/15/20 03/18/21 Unknown Rx Clopidogrel [Plavix] 75 mg PO QDAY tablet 11/15/20 03/18/21 Unknown Rx Metoprolol [Lopressor TAB] 25 mg PO TIDAC tablet 11/15/20 03/18/21 Unknown Rx Montelukast [Singulair] 10 mg PO QHS tablet 11/15/20 03/18/21 Unknown Rx busPIRone [Buspar] 5 mg PO BID tablet 11/15/20 03/18/21 Unknown Rx predniSONE [Deltasone] 20 mg PO QDAY #10 11/15/20 03/18/21 Unknown Rx DULoxetine [Cymbalta] 60 mg PO QDAY 03/18/21 03/18/21 Unknown History Fluticasone/Umeclidin/Vilanter 1 puff PO DAILY 03/18/21 03/18/21 Unknown History [Trelegy Ellipta 100-62.5-25] clonazePAM 1 mg PO BID 03/18/21 03/18/21 Unknown History Buspirone HCl [busPIRone] 30 mg PO TID #90 tab 04/08/21 Unknown Rx Venlafaxine [Effexor 25mg tab] 25 mg PO DAILY #30 04/08/21 Unknown Rx clonazePAM [ Klonopin] 0.5 mg PO BID PRN #60 tab 04/08/21 Unknown Rx Active Meds: Active Medications Acetaminophen (Acetaminophen 325 Mg Tab) 650 mg PO Q6H PRN PRN Reason: Pain MILD(1-3)/Fever >100.5/TOVAR Last Admin: 04/04/21 06:20 Dose: 650 mg Albuterol (Albuterol 2.5 Mg/3 Ml Nebu) 2.5 mg IH Q6H PRN PRN Reason: Wheezing Last Admin: 04/03/21 15:40 Dose: 2.5 mg Alprazolam (Alprazolam 1 Mg Tab) 1 mg PO Q8H PRN PRN Reason: AGITATION Last Admin: 04/09/21 14:19 Dose: 1 mg Arformoterol Tartrate (Arformoterol 15 Mcg/2 Ml Nebu) 15 mcg IH Q12HRT [facility] Last Admin: 04/09/21 08:46 Dose: 15 mcg Atorvastatin Calcium (Atorvastatin 10 Mg Tab) 10 mg PO QHS [facility] Last Admin: 04/08/21 22:54 Dose: 10 mg Budesonide (Budesonide 0.5 Mg/2 Ml Nebu) 0.5 mg IH Q12HRT [facility] Last Admin: 04/09/21 08:46 Dose: 0.5 mg Buspirone HCl (Buspirone 10 Mg Tab) 30 mg PO TID [facility] Last Admin: 04/09/21 13:42 Dose: 30 mg Clonazepam (Clonazepam 0.5 Mg Tab) 0.5 mg PO BID [facility] Last Admin: 04/09/21 09:05 Dose: 0.5 mg Dextrose (Dextrose 50% In Water (25gm) 50 Ml Syringe) 0 ml IV Q30MIN PRN; Protocol PRN Reason: Hypoglycemia Last Admin: 03/31/21 05:16 Dose: 10 ml Diltiazem HCl (Diltiazem 60 Mg Tab) 60 mg FEEDTUBE Q8HR [facility] Last Admin: 04/09/21 13:40 Dose: 60 mg Docusate Sodium (Docusate Sodium 100 Mg/10 Ml Oral Liqd) 100 mg PO BID [facility] Last Admin: 04/09/21 09:04 Dose: 100 mg Duloxetine HCl (Duloxetine 30 Mg Cap) 30 mg PO QDAY [facility] Last Admin: 04/09/21 09:05 Dose: 30 mg Famotidine (Famotidine 20 Mg Tab) 20 mg FEEDTUBE BID [facility] Last Admin: 04/09/21 09:05 Dose: 20 mg Haloperidol Lactate (Haloperidol Lactate 5 Mg/1 Ml Inj) 5 mg IV Q6H PRN PRN Reason: Agitation Last Admin: 04/01/21 08:33 Dose: 5 mg Heparin Sodium (Porcine) (Heparin 5,000 Unit/1 Ml Vial) 5,000 unit SUB-Q Q8HR [facility] Last Admin: 04/09/21 13:41 Dose: 5,000 unit Hydralazine HCl (Hydralazine 20 Mg/1 Ml Inj) 5 mg IV Q4HR PRN PRN Reason: SBP >160 Hydrophilic Ointment (Lip Therapy Vaseline) 1 applic TP Q2HR PRN PRN Reason: Dry Lips Insulin Human Lispro (Insulin Lispro 100 Unit/Ml) 0 unit SUB-Q Q6HR [facility]; Protocol Last Admin: 04/09/21 17:35 Dose: 3 unit Lorazepam (Lorazepam 2 Mg/Ml Vial) 0.5 mg IV Q4H PRN PRN Reason: Anxiety Last Admin: 04/08/21 08:25 Dose: 0.5 mg Magnesium Hydroxide (Magnesium Hydroxide (Mom) Oral Liqd Udc) 30 ml PO Q4H PRN PRN Reason: Constipation Last Admin: 03/24/21 09:36 Dose: 30 ml Metoprolol Tartrate (Metoprolol Tartrate 25 Mg Tab) 25 mg PO BID [facility] Last Admin: 04/09/21 09:04 Dose: 25 mg Morphine Sulfate (Morphine 2 Mg/1 Ml Inj) 2 mg IV Q4H PRN PRN Reason: Pain, Moderate (4-6) Last Admin: 04/09/21 09:41 Dose: 2 mg Morphine Sulfate (Morphine 4 Mg/1 Ml Inj) 4 mg IV Q4H PRN PRN Reason: Pain , Severe (7-10) Last Admin: 04/03/21 17:21 Dose: 4 mg Multi-Ingred Cream/Lotion/Oil/Oint (Mineral Oil/Petrolatum, White Ophth Oint 3.5 Gm) 1 applic OU Q4HR PRN PRN Reason: Dry Eye(s) Prednisone (Prednisone 10 Mg Tab) 10 mg PO QDAY [facility] Last Admin: 04/09/21 10:33 Dose: 10 mg Senna/Docusate Sodium (Sennosides/Docusate Sodium 8.6/50 Mg Tab) 1 tab FEEDTUBE BID [facility] Last Admin: 04/09/21 09:07 Dose: 1 tab Simple Syrup (Simple Syrup 15 Ml) 15 ml FEEDTUBE PRN PRN PRN Reason: Hypoglycemia Last Admin: 04/04/21 22:02 Dose: 15 ml Simple Syrup (Simple Syrup 15 Ml) 30 ml FEEDTUBE PRN PRN PRN Reason: Hypoglycemia Sodium Chloride (Sodium Chloride 0.9% 10 Ml Flush Syringe) 10 ml IV BID [facility] Last Admin: 04/09/21 09:09 Dose: 10 ml Sodium Chloride (Sodium Chloride 0.9% 10 Ml Flush Syringe) 10 ml IV PRN PRN PRN Reason: LINE FLUSH Last Admin: 03/22/21 23:20 Dose: 10 ml Venlafaxine HCl (Venlafaxine 25 Mg Tab) 25 mg PO QDAY [facility] Last Admin: 04/09/21 09:07 Dose: 25 mg I HAVE REVIEWED/RECONCILED MEDICATIONS Review of Systems - Review of Systems ROS unobtainable: due to mental status Exam - Constitutional Vital Signs: Temp Pulse Resp BP Pulse Ox 98.5 F 86 16 126/72 100 04/09/21 16:12 04/09/21 17:26 04/09/21 17:26 04/09/21 16:12 04/09/21 17:26 General appearance: mild distress - EENT Eyes: PERRL, EOM intact ENT: hearing intact - Neck Neck: supple, normal ROM - Respiratory Respiratory effort: labored Respiratory: bilateral: diminished (On BiPAP with increased WOB; RR 24) - Cardiovascular Rhythm: regular Heart Sounds: Present: S1 & S2 - Gastrointestinal General gastrointestinal: Present: soft, non-tender, non-distended, other (Surgical scars well-healed) - Integumentary Integumentary: Present: clear, warm, dry - Neurologic Neurological: disoriented - Labs CBC & Chem 7: 04/04/21 04:21 04/04/21 04:21 Lab Results: Laboratory Results - last 24 hr 04/09/21 04/09/21 04/09/21 00:52 06:02 11:34 POC Glucose 74 109 H 147 H 04/09/21 16:10 POC Glucose 183 H Assessment and Plan - Patient Problems (1) Neurogenic dysphagia Current Visit: Yes Status: Acute Plan to address problem: - I discussed a PEG tube with endoscopy with the at length, as well as the primary Radiology Practitioner Assistant Dr Gage. - In my opinion, the procedure would be most safe if the patient were intubated, but her respiratory reserve is limited to come back off the vent. - I will tentatively schedule tomorrow, but not proceed, until the family re-discusses the situation with Dr Gage tomorrow (per their request). - I did discuss the risks of a feeding tube with the (bleeding, infection, prolonged ventilator stay/tracheostomy, injury to other organ especially considering prior surgery/adhesions). (2) Acute respiratory failure with hypoxia Current Visit: No Status: Acute
[2021-04-10] MEDS: INSULIN LISPRO 100 UNIT/ML SUB-Q SCH ×4 (00:30→19:00)
[2021-04-10 05:54] LABS: Mean Corpuscular HGB Conc 30 % (30-34); Mean Corpuscular Volume 80 fl (79-97); Red Blood Count 4.04 M/mm3 (3.65-5.03)
[2021-04-10 05:58] LABS: Hemoglobin 9.6 gm/dl (10.1-14.3)
[2021-04-10 05:59] LABS: Hematocrit 32.2 % (30.3-42.9); Platelet Count 379 K/mm3 (140-440); Red Cell Distribution Width 23.7 % (13.2-15.2)
[2021-04-10 06:05] LABS: INR 0.73 (0.87-1.13)
[2021-04-10] MEDS: dilTIAZem 60 MG TAB FEEDTUBE SCH ×3 (06:06→22:06)
[2021-04-10] MEDS: HEPARIN 5,000 UNIT/1 ML VIAL SUB-Q SCH ×3 (06:06→22:06)
[2021-04-10 06:11] LABS: Alanine Aminotransferase 25 units/L (7-56); Albumin 3.2 g/dL (3.9-5); Blood Urea Nitrogen 13 mg/dL (7-17); Calcium 9.7 mg/dL (8.4-10.2); Hemolysis Index 19
[2021-04-10 06:12] LABS: BUN/Creatinine Ratio 43
[2021-04-10 06:50] LABS: Partial Thromboplastin Time TNR Sec. (24.2-36.6)
[2021-04-10] MEDS: BUDESONIDE 0.5 MG/2 ML NEBU IH SCH ×2 (08:20→21:06)
[2021-04-10] MEDS: ARFORMOTEROL 15 MCG/2 ML NEBU IH SCH ×2 (08:20→21:06)
[2021-04-10] MEDS: busPIRone 10 MG TAB PO SCH ×3 (09:49→22:09)
--- NOTE | 2021-04-10 10:24 | Gastroenterology Progress Note ---
Assessment and Plan - Patient Problems (1) Neurogenic dysphagia Current Visit: Yes Status: Acute Plan to address problem: - I discussed a PEG tube with endoscopy with the at length on Friday, as well as the primary Sheet Manufacturing Supervisor Dr Gage. - In my opinion, the procedure would be most safe if the patient were intubated, but her respiratory reserve is limited to come back off the vent. - I will tentatively schedule Friday but not proceed, until the family re- discusses the situation with Dr Gage today or tomorrow (per their request). - I did discuss the risks of a feeding tube with the (bleeding, infection, prolonged ventilator stay/tracheostomy, injury to other organ especially considering prior surgery/adhesions). (2) Acute respiratory failure with hypoxia Current Visit: No Status: Acute Subjective Date of service: 04/10/21 Principal diagnosis: Neurogenic Dysphagia Interval history: The patient is tolerating tube feeds and has had no events overnight. Objective - Constitutional Vitals: Temp Pulse Resp BP Pulse Ox 98.6 F 100 H 21 153/79 96 04/10/21 08:30 04/10/21 08:45 04/10/21 08:45 04/10/21 08:30 04/10/21 08:45 General appearance: mild distress - Respiratory Respiratory effort: labored Respiratory: bilateral: diminished (On BiPAP) - Cardiovascular Rhythm: regular Heart Sounds: Present: S1 & S2 - Extremities Extremities: no ischemia, No edema - Gastrointestinal General gastrointestinal: Present: soft, non-tender, non-distended - Labs CBC & Chem 7: 04/10/21 05:05 04/10/21 05:05 Labs: Laboratory Results - last 24 hr 04/09/21 04/09/21 04/10/21 11:34 16:10 00:12 WBC RBC Hgb Hct MCV MCH MCHC RDW Plt Count PT INR APTT Sodium Potassium Chloride Carbon Dioxide Anion Gap BUN Creatinine Estimated GFR BUN/Creatinine Ratio Glucose POC Glucose 147 H 183 H 112 H Calcium Total Bilirubin AST ALT Alkaline Phosphatase Total Protein Albumin Albumin/Globulin Ratio 04/10/21 04/10/21 04/10/21 05:05 05:05 05:05 WBC 15.9 H RBC 4.04 Hgb 9.6 L Hct 32.2 MCV 80 MCH 24 L MCHC 30 RDW 23.7 H Plt Count 379 PT 11.2 L INR 0.73 L APTT TNR Sodium 138 Potassium 3.9 Chloride 90.6 L Carbon Dioxide 35 H Anion Gap 16 BUN 13 Creatinine 0.3 L Estimated GFR > 60 BUN/Creatinine Ratio 43 Glucose 110 H POC Glucose Calcium 9.7 Total Bilirubin 0.30 AST 17 ALT 25 Alkaline Phosphatase 87 Total Protein 6.4 Albumin 3.2 L Albumin/Globulin Ratio 1.0 04/10/21 05:54 WBC RBC Hgb Hct MCV MCH MCHC RDW Plt Count PT INR APTT Sodium Potassium Chloride Carbon Dioxide Anion Gap BUN Creatinine Estimated GFR BUN/Creatinine Ratio Glucose POC Glucose 112 H Calcium Total Bilirubin AST ALT Alkaline Phosphatase Total Protein Albumin Albumin/Globulin Ratio
--- NOTE | 2021-04-10 11:23 | Progress Note ---
Assessment and Plan - Patient Problems (1) Respiratory failure Current Visit: Yes Status: Acute Plan to address problem: Patient with long history of severe, oxygen dependent COPD, presented with respiratory failure due to COPD exacerbation. Stable sinus rhythm in the CCU. Continue supportive management and current treatment of COPD exacerbation. Subjective Date of service: 04/10/21 Principal diagnosis: Neurogenic Dysphagia Interval history: Patient is on BiPAP, awake no complaints, no new cardiac events reported. On manager monitoring, she has a sinus tachycardia at 109. Objective Vital Signs Temp Pulse Pulse Resp Resp BP Pulse Ox 04/10/21 08:45 100 H 21 96 04/10/21 08:30 98.6 F 100 H 18 153/79 95 04/10/21 04:31 98.5 F 87 16 122/66 100 04/10/21 00:33 100 04/10/21 00:31 90 04/10/21 00:12 98.1 F 76 16 118/70 100 04/09/21 23:30 96 04/09/21 21:45 89 18 118/70 98 04/09/21 20:50 90 20 04/09/21 20:05 20 04/09/21 20:00 100 04/09/21 19:57 98.5 F 90 16 123/73 100 04/09/21 17:26 86 16 100 04/09/21 16:12 98.5 F 82 17 126/72 100 04/09/21 11:36 98.7 F 87 16 137/82 100 - Physical Examination General: No Apparent Distress HEENT: Positive: PERRL, Normocephaly, Other (Moderately obese) Neck: Positive: neck supple, trachea midline Cardiac: Positive: Regular Rhythm Lungs: Positive: Decreased Breath Sounds Neuro: Positive: Grossly Intact Abdomen: Positive: Soft Skin: Positive: Clear Extremities: Absent: edema - Labs and Meds Cardiac Enzymes 04/10/21 Range/Units 05:05 AST 17 (5-40) units/L Coagulation 04/10/21 Range/Units 05:05 PT 11.2 L (12.2-14.9) Sec. INR 0.73 L (0.87-1.13) APTT TNR CBC 04/10/21 Range/Units 05:05 WBC 15.9 H (4.5-11.0) K/mm3 RBC 4.04 (3.65-5.03) M/mm3 Hgb 9.6 L (10.1-14.3) gm/dl Hct 32.2 (30.3-42.9) % Plt Count 379 (140-440) K/mm3 Comprehensive Metabolic Panel 04/10/21 Range/Units 05:05 Sodium 138 (137-145) mmol/L Potassium 3.9 (3.6-5.0) mmol/L Chloride 90.6 L (98-107) mmol/L Carbon Dioxide 35 H (22-30) mmol/L BUN 13 (7-17) mg/dL Creatinine 0.3 L (0.6-1.2) mg/dL Glucose 110 H (65-100) mg/dL Calcium 9.7 (8.4-10.2) mg/dL AST 17 (5-40) units/L ALT 25 (7-56) units/L Alkaline Phosphatase 87 (35-129) units/L Total Protein 6.4 (6.3-8.2) g/dL Albumin 3.2 L (3.9-5) g/dL
[2021-04-10] MEDS: clonazePAM 0.5 MG TAB PO SCH ×2 (12:49→22:06)
[2021-04-10] MEDS: METOPROLOL TARTRATE 25 MG TAB PO SCH ×2 (12:49→22:05)
[2021-04-10] MEDS: VENLAFAXINE 25 MG TAB PO SCH (12:49)
[2021-04-10] MEDS: SENNOSIDES/DOCUSATE SODIUM 8.6/50 MG TAB FEEDTUBE SCH ×2 (12:49→22:05)
[2021-04-10] MEDS: FAMOTIDINE 20 MG TAB FEEDTUBE SCH ×2 (12:49→22:05)
[2021-04-10] MEDS: predniSONE 10 MG TAB PO SCH (12:49)
[2021-04-10] MEDS: DULoxetine 30 MG CAP PO SCH (12:49)
[2021-04-10] MEDS: DOCUSATE SODIUM 100 MG/10 ML ORAL LIQD PO SCH ×2 (12:50→22:06)
--- NOTE | 2021-04-10 14:43 | Event Note ---
Date: 04/10/21 Patient was discharged yesterday, please refer to the detailed discharge summary by Dr. Bhupinder Abraham on April 09, 2021. Later felt that patient has dysphagia, GI evaluated, for for PEG placement tomorrow patient currently is on BiPAP, case management has set up home hospice Patient is comfortable, not in acute distress No new events reported by the nursing staff Vital signs reviewed, stable Follow-up PEG procedure tomorrow. If patient tolerates feeds and is stable May plan discharge tomorrow
--- NOTE | 2021-04-10 15:38 | Discharge Summary ---
Providers - Providers Date of Admission: 03/17/21 23:58 Date of discharge: 04/10/21 Attending physician: RAIMUNDO HARRIS 03/18/21 00:00 Consult to Physician [CONS] Routine Comment: Consulting Provider: HELADIO GAGE Physician Instructions: Reason For Exam: Respiratory failure,Elevated troponin Consult to Physician [CONS] Routine Comment: Dr. Lua spoke with Dr. Gage @ [phone] Consulting Provider: HELADIO GAGE Physician Instructions: Reason For Exam: Acute hypoxemic respiratory failure, ICU managemen 03/18/21 00:47 Consult to Cardiology [CONS] Routine Consulting Provider: SINCERE BECERRA Reason For Exam: Cardiac Arrhythmia 03/26/21 05:27 Consult to Wound/ET Nurse [CONS] Routine Reason For Exam: wound eval 03/26/21 11:34 Midline [Consult to PICC Line RN] [CONS] Stat Reason For Exam: No iv access Type Line:: Midline 04/01/21 15:21 Speech Therapy Evaluation and Treat [CONS] Routine Reason For Exam: Failed bedside swallow 04/02/21 13:15 Consult to Physician [CONS] Routine Comment: Consulting Provider: SHAYNE KERR Physician Instructions: Reason For Exam: severe anxiety/depresion 04/09/21 16:27 Consult to Physician [CONS] Routine Comment: Consulting Provider: IMTIAZ NARAYANAN Physician Instructions: Reason For Exam: PEG tube Primary care physician: 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 Roe on 04/09/2021 Hospital course: Interval history: This is a 60-year-old female with COPD with oxygen dependence currently with palliative care, DM, former nicotine abuse, severe anxiety, GERD, HLD, HTN and PAGE presented to emergency department on 03/17 via EMS with complaints of shortness of breath. On arrival of EMS patient was found to be in SVT with a heart rate of about 200 and blood pressure to be quite elevated with systolic in 200s. She was given 6 mg of adenosine without significant changes subsequently given 12 mg of adenosine with improvement of her heart rate. Upon arrival to the emergency department patient was found to be in atrial fibrillation with RVR and dyspneic. Work-up in the emergency department revealed leukocytosis, lactic acidosis, transaminitis, hypoalbuminemia and a troponin leak. CXR, CT a chest and CT head were unremarkable. Patient was admitted to the hospitalist service with consults to [facility] and cardiology for further work-up of acute on chronic respiratory failure, SVT and hypertensive urgency. Hospital Course to date: 03/18/2021: Patient is intubated and on vent support, Patient is in sinus tachycardia 03/19: COVID-19 PCR negative, remains on ventilatory support, Versed drip changed to propofol. No acute events reported overnight. Tracheal aspirate with few gram-positive Cocci. This afternoon, patient went in to the 150s, giving 500 mL NS bolus and fentanyl push to see if it pain related. If persists then will order prn Ativan per Dr. Gage recommendation. 03/20: Restarted on home metoprolol and abdominal ultrasound showed right hydronephrosis. Abd US shows right hydroureteronephrosis and will obtain a dedicated renal US. She seems to more comfortable on propofol and fentanyl 03/21: Patient's FiO2 had to be decreased overnight due to hypoxia and tachycardia. Hyperkalemia noted and given Kayexalate. 1 unit PRBC for hemoglobin 6.8. [facility] plans to extubate tomorrow. Increase in Lantus. 03/22: Transfuse one unit prbc, failed SBT in the AM d/t hypertension. [facility] extubated the patient but she was reintubated within [address] head ordered and pending read. Given kionex x2 for hyperkalemia 03/23: This morning patient was only on Precedex drip and overnight she had agitation, hypertension and tachycardia. RN instructed to place fentanyl drip. Increase in Lantus for better glucose control. Will remove Wallis today. 03/24/2021: no acute events reported overnight. Patient remains intubated and is currently on fentanyl and Precedex. Increase in Lantus due to hyperglycemia. 03/25: no acute events overnight. increase in lantus and decreased steroids today. 04/02: Bipap q hs and optiflow in the AM, remains on precedex. Psych consulted today. 04/03: Patient failed swallow evaluation today and ST recommended PEG tube placement. NG tube was replaced yesterday and tube feeds changed to cyclic feedings today given she was BiPAP overnight. Psych consulted. Likely DC tomorrow or . 04/04: Patient has long standing anxiety history. Needs medication optimization. May uptitrate buspar. PCCM stated that patient did not tolerate klonopin as an OP. Currently working to taper steroids. No GI consult at this time for PEG as PCCM d/w . Will continue to work with CM for hospice placement. 04/05: Klonopin unfortunately not effective in this patient. Awaiting psych input/eval for today. Will continue to work towards hospice placement with CM. 04/06: On hi flow 35/50. comfortable on my encounter. Effexor added by psychiatry. Will work towards hospice placement with CM. 04/07: Placed on bipap, has been on since this am. comfortable on my encounter. Pending hospice placement by CM. 04/08: Remains on bipap. Will try to aggressively wean if possible. Will work with Cm friday for hospice placement. 04/09: Discharge to hospice. Arrangements made by CM Assessment and plan: Neuro: Hepatic/metabolic encephalopathy, h/o severe anxiety, depression -Admit ammonia 116, 03/09 ammonia 26 -Precedex gtt -xanax, ativan, haldol and morphine prn -Buspar increased dose today on hopes to wean of precedex; home cymbalta on hold (cannot crush) -Psych consulted, started on effexor 25 mg po daily - on buspar -Avoid delirium -Maintain sleep-wake cycle -SAT when appropriate -CT head on admit with no acute findings -Repeat CT head d/t AMS-> no acute changes Cardio: Hypertensive emergency (resolved), s/p A. fib with RVR and SVT, h/o HTN, HLD -s/p X2 doses of adenosine in the ED -Cardiology consulted, appreciate recommendations -PO metoprolol BID -Resume home statin -Blood pressure monitoring per protocol -Echocardiogram 10/2020 showed EF of 50 to 55%, mild diastolic dysfunction, trace to mild tricuspid regurgitation, mild pulmonary hypertension, RVSP 45 mmHg Resp : Acute on chronic respiratory failure, h/o COPD and PAGE -CCM consulted, appreciate recommendations -CTA chest shows no CT evidence of pulmonary embolism, small right and trace left pleural effusion, upper lobe predominant emphysema -Intubated on 03/17 with 7.00 ETT at 20 at the lips and extubated 03/22 but reintubated shortly after; Self-extubated on 03/29 -weaned to BiPAP q hs, Optiflow in AM -VAP bundle -SPO2 monitoring -Methylprednisone weaning-> PO will be slow wean -nebs per CCM GI: Transaminitis (resolving), h/o chronic constipation -NTR consulted, appreciate recommendations -RUQ US shows right hydroureteronephrosis and possible gallbladder sludge or gallstones -Renal ultrasound shows mild right-sided hydronephrosis with parenchymal thinning and trace perinephric fluid. -need to follow up outpatient -PPI -BR: senakot S and colace, prn mom -BM 04/01 -24 hours +1632 mL -Failed bedside swallow eval -NGT reinserted and TF changed to cyclic; ST recommends PEG : Mild right hydroureteronephrosis -Trend BMP -FWF with TF -stop D51/2 NS when TF resumed -Strict I & Os -Wallis -Renal ultrasound shows mild right-sided hydronephrosis with parenchymal thinning and trace perinephric fluid. Endo: h/o DM -Avoid hypoglycemia -SSI -Accucheck q 6hrs -Lantus -titrate as needed Heme: Anemia, Leukocytosis, h/o Microcytic anemia -Trend CBC -Transfuse for hbg <7 -s/p 2 unit PRBCs -SCDs to BLE while in bed -Lovenox subq ID: Gram positive cocci in tracheal aspirate -02/25 tracheal aspirate with few gram-positive cocci -s/p Levaquin (03/18-) -Trend WBC and fever curve -Repeat blood cultures and sputum culture NGTD -Trend WBC and fever curve Disposition: Home with hospice Final Discharge Diagnosis (Prints w/discharge instructions): Acute on Chronic Respiratory Failure due to COPD and Obstructive Sleep Apnea Time spent for discharge:45 Disposition: [facility]OSP[facility]AC[facility] Final Discharge Diagnosis (Prints w/discharge instructions): acute on chronic respiratory failure. Acute COPD exacerbation. Obstructive sleep apnea. Dysphagia status post PEG. Generalized anxiety disorder. Sinus tachycardia. anemia Time spent for discharge: 45 minutes Core Measure Documentation - Palliative Care Palliative Care/ Comfort Measures: Hospice Care - Core Measures Any of the following diagnoses?: none Exam - Constitutional Vitals: Temp Pulse Resp BP Pulse Ox 98.6 F 99 H 20 153/79 98 04/10/21 08:30 04/10/21 15:03 04/10/21 15:03 04/10/21 08:30 04/10/21 15:03 General appearance: Present: mild distress, other (On BiPAP) - EENT Eyes: Present: PERRL, EOM intact - Neck Neck: Present: supple, normal ROM - Respiratory Respiratory effort: normal Respiratory: bilateral: diminished, rhonchi, negative: rales, wheezing - Cardiovascular Rhythm: regular Heart Sounds: Present: S1 & S2 - Extremities Extremity abnormal: edema - Abdominal General gastrointestinal: Present: soft, non-tender, non-distended, normal bowel sounds - Integumentary Integumentary: Present: clear - Musculoskeletal Musculoskeletal: other (Noncommunicative) - Psychiatric Psychiatric: other (Noncommunicative) - Neurologic Neurologic: other Plan Activity: advance as tolerated, fall precautions Diet: other (Tube feeding per protocol) Additional Instructions: Further management per home hospice medical microbiologist. Aspiration precautions, fall precautions Follow up with: PRIMARY CARE,MD [Primary Care Provider] - 7 Days Prescriptions: AtorvaSTATin 10 mg PO QHS #30 tablet Buspirone HCl [busPIRone] 30 mg PO TID #90 tab dilTIAZem [Cardizem] 60 mg FEEDTUBE Q8HR #90 tablet Venlafaxine [Effexor 25mg tab] 25 mg PO DAILY #30 clonazePAM [ Klonopin] 0.5 mg PO BID PRN #60 tab PRN Reason: Anxiety Metoprolol [Lopressor TAB] 25 mg PO TIDAC #60 tablet Famotidine [Pepcid] 20 mg FEEDTUBE BID #60 tablet predniSONE 10 mg PO QDAY #10 tablet
[2021-04-10] MEDS: MORPHINE 2 MG/1 ML INJ IV PRN ×2 (16:50→23:27)
--- NOTE | 2021-04-10 18:20 | Progress Note ---
Assessment and Plan Assessment and plan: Assessment and plan: Neuro: Hepatic/metabolic encephalopathy, h/o severe anxiety, depression -Admit ammonia 116, 03/09 ammonia 26 -Precedex gtt -xanax, ativan, haldol and morphine prn -Buspar increased dose today on hopes to wean of precedex; home cymbalta on hold (cannot crush) -Psych consulted, started on effexor 25 mg po daily - on buspar -Avoid delirium -Maintain sleep-wake cycle -SAT when appropriate -CT head on admit with no acute findings -Repeat CT head d/t AMS-> no acute changes Cardio: Hypertensive emergency (resolved), s/p A. fib with RVR and SVT, h/o HTN, HLD -s/p X2 doses of adenosine in the ED -Cardiology consulted, appreciate recommendations -PO metoprolol BID -Resume home statin -Blood pressure monitoring per protocol -Echocardiogram 10/2020 showed EF of 50 to 55%, mild diastolic dysfunction, trace to mild tricuspid regurgitation, mild pulmonary hypertension, RVSP 45 mmHg Resp : Acute on chronic respiratory failure, h/o COPD and PAGE -CCM consulted, appreciate recommendations -CTA chest shows no CT evidence of pulmonary embolism, small right and trace left pleural effusion, upper lobe predominant emphysema -Intubated on 03/17 with 7.00 ETT at 20 at the lips and extubated 03/22 but reintubated shortly after; Self-extubated on 03/29 -weaned to BiPAP q hs, Optiflow in AM -VAP bundle -SPO2 monitoring -Methylprednisone weaning-> PO will be slow wean -nebs per CCM GI: Transaminitis (resolving), h/o chronic constipation -NTR consulted, appreciate recommendations -RUQ US shows right hydroureteronephrosis and possible gallbladder sludge or gallstones -Renal ultrasound shows mild right-sided hydronephrosis with parenchymal thinning and trace perinephric fluid. -need to follow up outpatient -PPI -BR: senakot S and colace, prn mom -BM 04/01 -24 hours +1632 mL -Failed bedside swallow eval -NGT reinserted and TF changed to cyclic; ST recommends PEG : Mild right hydroureteronephrosis -Trend BMP -FWF with TF -stop D51/2 NS when TF resumed -Strict I & Os -Wallis -Renal ultrasound shows mild right-sided hydronephrosis with parenchymal thinning and trace perinephric fluid. Endo: h/o DM -Avoid hypoglycemia -SSI -Accucheck q 6hrs -Lantus -titrate as needed Heme: Anemia, Leukocytosis, h/o Microcytic anemia -Trend CBC -Transfuse for hbg <7 -s/p 2 unit PRBCs -SCDs to BLE while in bed -Lovenox subq ID: Gram positive cocci in tracheal aspirate -02/25 tracheal aspirate with few gram-positive cocci -s/p Levaquin (03/18-) -Trend WBC and fever curve -Repeat blood cultures and sputum culture NGTD -Trend WBC and fever curve Disposition: Follow-up PEG procedure, GI recommendations If stable and cleared May DC Home with hospice tomorrow Brief history and daily Hospital course This is a 60-year-old female with COPD with oxygen dependence currently with p alliative care, DM, former nicotine abuse, severe anxiety, GERD, HLD, HTN and PAGE presented to emergency department on 03/17 via EMS with complaints of shortness of breath. On arrival of EMS patient was found to be in SVT with a heart rate of about 200 and blood pressure to be quite elevated with systolic in 200s. She was given 6 mg of adenosine without significant changes subsequently given 12 mg of adenosine with improvement of her heart rate. Upon arrival to the emergency department patient was found to be in atrial fibrillation with RVR and dyspneic. Work-up in the emergency department revealed leukocytosis, lactic acidosis, transaminitis, hypoalbuminemia and a troponin leak. CXR, CT a chest and CT head were unremarkable. Patient was admitted to the hospitalist service with consults to [facility] and cardiology for further work-up of acute on chronic respiratory failure, SVT and hypertensive urgency. Hospital Course to date: 03/18/2021: Patient is intubated and on vent support, Patient is in sinus tachycardia 03/19: COVID-19 PCR negative, remains on ventilatory support, Versed drip changed to propofol. No acute events reported overnight. Tracheal aspirate with few gram-positive Cocci. This afternoon, patient went in to the 150s, giving 500 mL NS bolus and fentanyl push to see if it pain related. If persists then will order prn Ativan per Dr. Gage recommendation. 03/20: Restarted on home metoprolol and abdominal ultrasound showed right hydr onephrosis. Abd US shows right hydroureteronephrosis and will obtain a dedicated renal US. She seems to more comfortable on propofol and fentanyl 03/21: Patient's FiO2 had to be decreased overnight due to hypoxia and tachycardia. Hyperkalemia noted and given Kayexalate. 1 unit PRBC for hemoglob in 6.8. [facility] plans to extubate tomorrow. Increase in Lantus. 03/22: Transfuse one unit prbc, failed SBT in the AM d/t hypertension. [facility] extubated the patient but she was reintubated within [address] head ordered and pending read. Given kionex x2 for hyperkalemia 03/23: This morning patient was only on Precedex drip and overnight she had agitation, hypertension and tachycardia. RN instructed to place fentanyl drip. Increase in Lantus for better glucose control. Will remove Wallis today. 03/24/2021: no acute events reported overnight. Patient remains intubated and is currently on fentanyl and Precedex. Increase in Lantus due to hyperglycemia. 03/25: no acute events overnight. increase in lantus and decreased steroids today. 04/02: Bipap q hs and optiflow in the AM, remains on precedex. Psych consulted today. 04/03: Patient failed swallow evaluation today and ST recommended PEG tube placement. NG tube was replaced yesterday and tube feeds changed to cyclic feedings today given she was BiPAP overnight. Psych consulted. Likely DC tomorrow or . 04/04: Patient has long standing anxiety history. Needs medication optimization. May uptitrate buspar. PCCM stated that patient did not tolerate klonopin as an OP. Currently working to taper steroids. No GI consult at this time for PEG as PCCM d/w . Will continue to work with CM for hospice placement. 04/05: Klonopin unfortunately not effective in this patient. Awaiting psych input/eval for today. Will continue to work towards hospice placement with CM. 04/06: On hi flow 35/50. comfortable on my encounter. Effexor added by psychiatry. Will work towards hospice placement with CM. 04/07: Placed on bipap, has been on since this am. comfortable on my encounter. Pending hospice placement by CM. 04/08: Remains on bipap. Will try to aggressively wean if possible. Will work with Cm friday for hospice placement. 04/09: Discharge to hospice. Arrangements made by CM 04/10; discharge is held as patient has dysphagia, GI evaluated the patient Scheduled for PEG placement tomorrow Disposition; follow up with procedure, if patient tolerates PEG feeds, and stable For discharge to hospice tomorrow History Interval history: Seen and examined the patient at the bedside Patient's chart and medications reviewed Initially patient was discharged yesterday However due to patient's dysphagia discharge was held Evaluated by GI, scheduled for PEG placement tomorrow. Patient is on BiPAP, noncommunicative, mild distress Hospitalist Physical - Constitutional Vitals: Temp Pulse Resp BP Pulse Ox 97.9 F 100 H 18 134/81 99 04/10/21 16:24 04/10/21 16:24 04/10/21 16:24 04/10/21 16:24 04/10/21 16:24 General appearance: Present: mild distress, other (On BiPAP) - EENT Eyes: Present: PERRL, EOM intact - Neck Neck: Present: supple, normal ROM - Respiratory Respiratory effort: normal Respiratory: bilateral: diminished, rhonchi, negative: rales, wheezing - Cardiovascular Rhythm: regular Heart Sounds: Present: S1 & S2 - Extremities Extremities: no ischemia, No edema - Abdominal General gastrointestinal: soft, non-tender, non-distended, normal bowel sounds - Integumentary Integumentary: Present: clear, warm - Psychiatric Psychiatric: other (Noncommunicative) - Neurologic Neurologic: other HEART Score - HEART Score Troponin: Troponin T < 0.010 ng/mL (0.00-0.029) 03/29/21 09:24 Results - Labs CBC & Chem 7: 04/10/21 05:05 04/10/21 05:05 Labs: Laboratory Last Values WBC 15.9 K/mm3 (4.5-11.0) H 04/10/21 05:05 RBC 4.04 M/mm3 (3.65-5.03) 04/10/21 05:05 Hgb 9.6 gm/dl (10.1-14.3) L 04/10/21 05:05 Hct 32.2 % (30.3-42.9) 04/10/21 05:05 MCV 80 fl (79-97) 04/10/21 05:05 MCH 24 pg (28-32) L 04/10/21 05:05 MCHC 30 % (30-34) 04/10/21 05:05 RDW 23.7 % (13.2-15.2) H 04/10/21 05:05 Plt Count 379 K/mm3 (140-440) 04/10/21 05:05 [place] % (Auto) Optical Laboratory Technician 03/24/21 08:03 Add Manual Diff Complete 03/26/21 05:35 Total Counted 100 03/26/21 05:35 Seg Neuts % (Manual) 72.0 % (40.0-70.0) H 03/26/21 05:35 Band Neutrophils % 5.0 % 03/26/21 05:35 Lymphocytes % (Manual) 6.0 % (13.4-35.0) L 03/26/21 05:35 Reactive Lymphs % (Man) 5.0 % 03/19/21 04:59 Monocytes % (Manual) 8.0 % (0.0-7.3) H 03/26/21 05:35 Metamyelocytes % 3.0 % 03/26/21 05:35 Myelocytes % 5.0 % 03/26/21 05:35 Promyelocytes % 1.0 % 03/26/21 05:35 Nucleated RBC % Not Reportable 03/26/21 05:35 Seg Neutrophils # Man 14.4 K/mm3 (1.8-7.7) H 03/26/21 05:35 Band Neutrophils # 1.0 K/mm3 03/26/21 05:35 Lymphocytes # (Manual) 1.2 K/mm3 (1.2-5.4) 03/26/21 05:35 Abs React Lymphs (Man) 0.0 K/mm3 03/26/21 05:35 Monocytes # (Manual) 1.6 K/mm3 (0.0-0.8) H 03/26/21 05:35 Eosinophils # (Manual) 0.0 K/mm3 (0.0-0.4) 03/26/21 05:35 Basophils # (Manual) 0.0 K/mm3 (0.0-0.1) 03/26/21 05:35 Metamyelocytes # 0.6 K/mm3 03/26/21 05:35 Myelocytes # 1.0 K/mm3 03/26/21 05:35 Promyelocytes # 0.2 K/mm3 03/26/21 05:35 Blast Cells # 0.0 K/mm3 03/26/21 05:35 WBC Morphology Not Reportable 03/26/21 05:35 Hypersegmented Neuts Not Reportable 03/26/21 05:35 Hyposegmented Neuts Not Reportable 03/26/21 05:35 Hypogranular Neuts Not Reportable 03/26/21 05:35 Smudge Cells Not Reportable 03/26/21 05:35 Toxic Granulation Not Reportable 03/26/21 05:35 Toxic Vacuolation Not Reportable 03/26/21 05:35 Dohle Bodies Not Reportable 03/26/21 05:35 Pelger-Huet Anomaly Not Reportable 03/26/21 05:35 Florentino Rods Not Reportable 03/26/21 05:35 Platelet Estimate Consistent w auto 03/26/21 05:35 Clumped Platelets Not Reportable 03/26/21 05:35 Plt Clumps, EDTA Not Reportable 03/26/21 05:35 Large Platelets 1+ 03/26/21 05:35 Giant Platelets Not Reportable 03/26/21 05:35 Platelet Satelliting Not Reportable 03/26/21 05:35 Plt Morphology Comment Not Reportable 03/26/21 05:35 RBC Morphology Not Reportable 03/26/21 05:35 Dimorphic RBCs Not Reportable 03/26/21 05:35 Polychromasia 1+ 03/26/21 05:35 Hypochromasia 2+ 03/26/21 05:35 Poikilocytosis 1+ 03/26/21 05:35 Anisocytosis 2+ 03/26/21 05:35 Microcytosis Not Reportable 03/26/21 05:35 Macrocytosis Not Reportable 03/26/21 05:35 Spherocytes Not Reportable 03/26/21 05:35 Pappenheimer Bodies Not Reportable 03/26/21 05:35 Sickle Cells Not Reportable 03/26/21 05:35 Target Cells 1+ 03/26/21 05:35 Tear Drop Cells 1+ 03/26/21 05:35 Ovalocytes Not Reportable 03/26/21 05:35 Stomatocytes 1+ 03/26/21 05:35 Helmet Cells Not Reportable 03/26/21 05:35 Mabry-Haugen Bodies Not Reportable 03/26/21 05:35 [place] Rings Not Reportable 03/26/21 05:35 Marcelo Cells Not Reportable 03/26/21 05:35 Bite Cells Not Reportable 03/26/21 05:35 Crenated Cell Not Reportable 03/26/21 05:35 Elliptocytes Not Reportable 03/26/21 05:35 Acanthocytes (Spur) Not Reportable 03/26/21 05:35 Rouleaux Not Reportable 03/26/21 05:35 Hemoglobin C Crystals Not Reportable 03/26/21 05:35 Schistocytes 1+ 03/26/21 05:35 Malaria parasites Not Reportable 03/26/21 05:35 Maykel Bodies Not Reportable 03/26/21 05:35 Hem Pathologist Commnt No 03/26/21 05:35 PT 11.2 Sec. (12.2-14.9) L 04/10/21 05:05 INR 0.73 (0.87-1.13) L 04/10/21 05:05 APTT TNR 04/10/21 05:05 D-Dimer 947.92 ng/mlDDU (0-234) H 03/17/21 17:37 ABG pH 7.477 (7.320-7.450) H 03/24/21 08:57 POC ABG pCO2 56.9 mmHg (32.0-48.0) H 03/24/21 08:57 ABG pCO2 72.7 mm Hg 03/23/21 04:50 POC ABG pO2 100.6 mmHg (83-108) 03/24/21 08:57 ABG pO2 70.7 mm Hg (80.0-90.0) L 03/23/21 04:50 POC ABG HCO3 41.1 03/24/21 08:57 ABG HCO3 41.7 mmol/L (20.0-26.0) H 03/23/21 04:50 ABG O2 Saturation 98.3 (0-100) 03/24/21 08:57 ABG O2 Content 7.8 (0.0-44) 03/23/21 04:50 POC ABG Base Excess 15.8 03/24/21 08:57 ABG Base Excess 15.2 mmol/L (-2.0-3.0) H 03/23/21 04:50 ABG Hemoglobin 8.0 (12.0-17.5) L 03/24/21 08:57 ABG Oxyhemoglobin 96.8 (94-98) 03/24/21 08:57 ABG Carboxyhemoglobin 1.7 % (0.0-5.0) 03/23/21 04:50 ABG Methemoglobin 0.3 (0.0-1.5) 03/24/21 08:57 ABG Sodium 139.1 mmol/L (136.0-145.0) 03/24/21 08:57 ABG Potassium 3.9 mmol/L (3.40-4.50) 03/24/21 08:57 ABG Chloride 93.0 mmol/L (98-107) L 03/24/21 08:57 ABG Glucose 328 mg/dL (65-95) H 03/24/21 08:57 Oxyhemoglobin 96.9 % (95.0-99.0) 03/23/21 04:50 Carboxyhemoglobin 1.2 (0.5-1.5) 03/24/21 08:57 FiO2 40 % 03/23/21 04:50 FiO2 % 40 03/24/21 08:57 Sodium 138 mmol/L (137-145) 04/10/21 05:05 Potassium 3.9 mmol/L (3.6-5.0) 04/10/21 05:05 Chloride 90.6 mmol/L (98-107) L 04/10/21 05:05 Carbon Dioxide 35 mmol/L (22-30) H 04/10/21 05:05 Anion Gap 16 mmol/L 04/10/21 05:05 BUN 13 mg/dL (7-17) 04/10/21 05:05 Creatinine 0.3 mg/dL (0.6-1.2) L 04/10/21 05:05 Estimated GFR > 60 ml/min 04/10/21 05:05 BUN/Creatinine Ratio 43 % 04/10/21 05:05 Glucose 110 mg/dL (65-100) H 04/10/21 05:05 POC Glucose 197 mg/dL (70-105) H 04/10/21 16:22 Lactic Acid 4.00 mmol/L (0.7-2.0) H* 03/17/21 23:36 Calcium 9.7 mg/dL (8.4-10.2) 04/10/21 05:05 Phosphorus 4.50 mg/dL (2.5-4.5) 03/31/21 04:41 Magnesium 2.20 mg/dL (1.7-2.3) 03/31/21 04:41 Total Bilirubin 0.30 mg/dL (0.1-1.2) 04/10/21 05:05 Direct Bilirubin < 0.2 mg/dL (0-0.2) 03/19/21 12:00 Indirect Bilirubin 0.1 mg/dL 03/19/21 12:00 AST 17 units/L (5-40) 04/10/21 05:05 ALT 25 units/L (7-56) 04/10/21 05:05 Alkaline Phosphatase 87 units/L (35-129) 04/10/21 05:05 Ammonia 26.0 umol/L (25-60) 03/19/21 12:00 Total Creatine Kinase 123 units/L (30-135) 03/29/21 09:24 CK-MB (CK-2) 1.5 ng/mL (0.0-4.0) 03/29/21 09:24 CK-MB (CK-2) Rel Index 1.2 (0-4) 03/29/21 09:24 Troponin T < 0.010 ng/mL (0.00-0.029) 03/29/21 09:24 NT-Pro-B Natriuret Pep 576.0 pg/mL (0-900) 03/17/21 17:36 Total Protein 6.4 g/dL (6.3-8.2) 04/10/21 05:05 Albumin 3.2 g/dL (3.9-5) L 04/10/21 05:05 Albumin/Globulin Ratio 1.0 % 04/10/21 05:05 Triglycerides 189 mg/dL (2-149) H 03/22/21 04:39 Cholesterol 191 mg/dL (50-199) 03/17/21 17:36 LDL Cholesterol Direct 80 mg/dL (50-130) 03/17/21 17:36 HDL Cholesterol 73 mg/dL (40-59) H 03/17/21 17:36 Cholesterol/HDL Ratio 2.61 % 03/17/21 17:36 Amylase 78 units/L (27-131) 03/19/21 Unknown Lipase 12 units/L (13-60) L 03/19/21 Unknown TSH 3.510 mlU/mL (0.270-4.200) 03/17/21 22:57 Arterial Blood Glucose 328 mg/dL (65-95) H 03/24/21 08:57 Arterial Blood Ionized Calcium 4.5 mg/dL (4.6-5.3) L 03/24/21 08:57 Urine Color Mayuri (Yellow) 03/17/21 19:42 Urine Turbidity Slightly-cloudy (Clear) 03/17/21 19:42 Urine pH 7.0 (5.0-7.0) 03/17/21 19:42 Ur Specific [place] 1.015 (1.003-1.030) 03/17/21 19:42 Urine Protein 100 mg/dl mg/dL (Negative) 03/17/21 19:42 Urine Glucose (UA) Neg mg/dL (Negative) 03/17/21 19:42 Urine Ketones 20 mg/dL (Negative) 03/17/21 19:42 Urine Blood Sm (Negative) 03/17/21 19:42 Urine Nitrite Neg (Negative) 03/17/21 19:42 Urine Bilirubin Neg (Negative) 03/17/21 19:42 Urine Urobilinogen 2.0 mg/dL (<2.0) 03/17/21 19:42 Ur Leukocyte Esterase Neg (Negative) 03/17/21 19:42 Urine WBC (Auto) 4.0 /HPF (0.0-6.0) 03/17/21 19:42 Urine RBC (Auto) 6.0 /HPF (0.0-6.0) 03/17/21 19:42 U Epithel Cells (Auto) 5.0 /HPF (0-13.0) 03/17/21 19:42 Urine Bacteria (Auto) 1+ /HPF (Negative) 03/17/21 19:42 Urine Mucus 1+ /HPF 03/17/21 19:42 Urine Yeast (Budding) Few /HPF 03/17/21 19:42 Acetaminophen 5.0 ug/mL (10.0-30.0) L 03/18/21 23:07 Coronavirus (PCR) Negative (Negative) 03/19/21 Unknown Blood Type A POSITIVE 03/29/21 09:24 Antibody Screen Negative 03/29/21 09:24 Crossmatch See Detail 03/29/21 09:24 Wallis/IV: Voiding Method External Female Catheter Active Medications - Current Medications Current Medications: Generic Name Dose Route Start Last Admin Trade Name Freq PRN Reason Stop Dose Admin Acetaminophen 650 mg 03/18/21 00:05 04/04/21 06:20 Acetaminophen 325 Mg Tab PO 650 mg Q6H PRN Administration Pain MILD(1-3)/Fever >100.5/TOVAR Albuterol 2.5 mg 03/22/21 08:00 04/03/21 15:40 Albuterol 2.5 Mg/3 Ml Nebu IH 2.5 mg Q6H PRN Administration Wheezing Alprazolam 1 mg 03/26/21 10:53 04/09/21 14:19 Alprazolam 1 Mg Tab PO 1 mg Q8H PRN Administration AGITATION Arformoterol Tartrate 15 mcg 03/24/21 11:00 04/10/21 08:20 Arformoterol 15 Mcg/2 Ml Nebu IH 15 mcg Q12HRT BUTCH Administration Atorvastatin Calcium 10 mg 03/19/21 22:00 04/09/21 21:30 Atorvastatin 10 Mg Tab PO 10 mg QHS BUTCH Administration Budesonide 0.5 mg 03/24/21 11:00 04/10/21 08:20 Budesonide 0.5 Mg/2 Ml Nebu IH 0.5 mg Q12HRT BUTCH Administration Buspirone HCl 30 mg 04/04/21 16:00 04/10/21 16:49 Buspirone 10 Mg Tab PO 30 mg TID BUTCH Administration Clonazepam 0.5 mg 04/03/21 15:00 04/10/21 12:49 Clonazepam 0.5 Mg Tab PO 0.5 mg BID BUTCH Administration Dextrose 0 ml 03/17/21 23:58 03/31/21 05:16 Dextrose 50% In Water (25gm) 50 Ml Syringe IV 10 ml Q30MIN PRN Administration Hypoglycemia Protocol Diltiazem HCl 60 mg 04/04/21 18:00 04/10/21 16:49 Diltiazem 60 Mg Tab FEEDTUBE 60 mg Q8HR BUTCH Administration Docusate Sodium 100 mg 03/23/21 10:00 04/10/21 12:50 Docusate Sodium 100 Mg/10 Ml Oral Liqd PO 100 mg BID BUTCH Administration Duloxetine HCl 30 mg 04/05/21 10:00 04/10/21 12:49 Duloxetine 30 Mg Cap PO 30 mg QDAY BUTCH Administration Famotidine 20 mg 03/20/21 22:00 04/10/21 12:49 Famotidine 20 Mg Tab FEEDTUBE 20 mg BID BUTCH Administration Haloperidol Lactate 5 mg 03/30/21 09:52 04/01/21 08:33 Haloperidol Lactate 5 Mg/1 Ml Inj IV 5 mg Q6H PRN Administration Agitation Heparin Sodium (Porcine) 5,000 unit 03/18/21 06:00 04/10/21 16:49 Heparin 5,000 Unit/1 Ml Vial SUB-Q 5,000 unit Q8HR BUTCH Administration Hydralazine HCl 5 mg 03/29/21 10:56 Hydralazine 20 Mg/1 Ml Inj IV Q4HR PRN SBP >160 Hydrophilic Ointment 1 applic 03/17/21 17:35 Lip Therapy Vaseline TP Q2HR PRN Dry Lips Insulin Human Lispro 0 unit 03/19/21 12:00 04/10/21 12:49 Insulin Lispro 100 Unit/Ml SUB-Q 3 unit Q6HR BUTCH Administration Protocol Lorazepam 0.5 mg 03/30/21 09:53 04/08/21 08:25 Lorazepam 2 Mg/Ml Vial IV 0.5 mg Q4H PRN Administration Anxiety Magnesium Hydroxide 30 ml 03/18/21 00:05 03/24/21 09:36 Magnesium Hydroxide (Mom) Oral Liqd Udc PO 30 ml Q4H PRN Administration Constipation Metoprolol Tartrate 25 mg 03/20/21 22:00 04/10/21 12:49 Metoprolol Tartrate 25 Mg Tab PO 25 mg BID BUTCH Administration Morphine Sulfate 2 mg 03/18/21 00:05 04/10/21 16:50 Morphine 2 Mg/1 Ml Inj IV 2 mg Q4H PRN Administration Pain, Moderate (4-6) Morphine Sulfate 4 mg 03/18/21 00:05 04/03/21 17:21 Morphine 4 Mg/1 Ml Inj IV 4 mg Q4H PRN Administration Pain , Severe (7-10) Multi-Ingred Cream/Lotion/Oil/Oint 1 applic 03/17/21 17:35 Mineral Oil/Petrolatum, White Ophth Oint 3.5 Gm OU Q4HR PRN Dry Eye(s) Prednisone 10 mg 04/09/21 10:00 04/10/21 12:49 Prednisone 10 Mg Tab PO 10 mg QDAY BUTCH Administration Senna/Docusate Sodium 1 tab 03/17/21 22:00 04/10/21 12:49 Sennosides/Docusate Sodium 8.6/50 Mg Tab FEEDTUBE 1 tab BID BUTCH Administration Simple Syrup 15 ml 03/19/21 18:16 04/04/21 22:02 Simple Syrup 15 Ml FEEDTUBE 15 ml PRN PRN Administration Hypoglycemia Simple Syrup 30 ml 03/19/21 18:16 Simple Syrup 15 Ml FEEDTUBE PRN PRN Hypoglycemia Sodium Chloride 10 ml 03/18/21 10:00 04/10/21 12:50 Sodium Chloride 0.9% 10 Ml Flush Syringe IV 10 ml BID BUTCH Administration Sodium Chloride 10 ml 03/17/21 23:58 03/22/21 23:20 Sodium Chloride 0.9% 10 Ml Flush Syringe IV 10 ml PRN PRN Administration LINE FLUSH Venlafaxine HCl 25 mg 04/06/21 13:00 04/10/21 12:49 Venlafaxine 25 Mg Tab PO 25 mg QDAY BUTCH Administration Nutrition/Malnutrition Assess - Dietary Evaluation Nutrition/Malnutrition Findings: Nutrition Notes Start: 03/18/21 09:46 Freq: Status: Active Protocol: Document 04/05/21 18:19 PAM (Rec: 04/05/21 18:26 PAM [id number]) Nutrition Notes Initial or Follow up Brief Note Current Diet Cyclic 12 hr TF-Vital AF 1.2 Brenden @ 88 ml/hr (since D 04/03) . Height 5 ft 6 in Weight 82.8 kg [place] Body Weight (kg) 59.09 BMI 29.5 Weight change and time frame No body weight change reported . Weight Status Overweight Subjective/Other Information RD consult for routine F/U on TF continuation. TF continues Cyclic as prescribed, therefore, well tolerated. Percent of energy/protein needs met: Prescribed Vital AF 1.2 Brenden @ 88 ml/hr provides for energy/ protein needs (1,260 Kcal/79 g ) during LOS, 75% Kcal; 80% AA . #1 Nutrition Diagnosis Inadequate oral intake Comments: Cycle mode well tolerated. Diagnosis Progress(for reassessment Improved documentation) Nutrition Intervention Nutrition Support: Vital AF 1.2 Brenden @ 88 ml/hr. Flush: 140 ml water Q 4 hr. Kcal 1,260 Protein (gm) 79 Carbohydrates (gm) 116 Fat (gm) 57 Fluid (mL) 852 Fiber (gm) 5 % RDI: 75% Kcal; 80% AA. Goal #1 Provide at least 75% of energy /protein needs through Enteral Feeding during LOS. Follow-Up By: 04/12/21 Additional Comments Continue monitoring TF tolerance, and BM.
[2021-04-11] MEDS: dilTIAZem 60 MG TAB FEEDTUBE SCH ×3 (06:08→23:06)
[2021-04-11] MEDS: HEPARIN 5,000 UNIT/1 ML VIAL SUB-Q SCH ×3 (06:11→23:12)
[2021-04-11] MEDS: ARFORMOTEROL 15 MCG/2 ML NEBU IH SCH ×2 (08:32→21:10)
[2021-04-11] MEDS: BUDESONIDE 0.5 MG/2 ML NEBU IH SCH ×2 (08:32→21:10)
[2021-04-11] MEDS: DULoxetine 30 MG CAP PO SCH (09:45)
[2021-04-11] MEDS: DOCUSATE SODIUM 100 MG/10 ML ORAL LIQD PO SCH ×2 (09:45→23:07)
[2021-04-11] MEDS: VENLAFAXINE 25 MG TAB PO SCH (09:45)
[2021-04-11] MEDS: clonazePAM 0.5 MG TAB PO SCH ×2 (09:45→23:07)
[2021-04-11] MEDS: busPIRone 10 MG TAB PO SCH ×3 (09:45→23:06)
[2021-04-11] MEDS: SENNOSIDES/DOCUSATE SODIUM 8.6/50 MG TAB FEEDTUBE SCH (09:46)
[2021-04-11] MEDS: predniSONE 10 MG TAB PO SCH (09:46)
[2021-04-11] MEDS: METOPROLOL TARTRATE 25 MG TAB PO SCH (09:46)
[2021-04-11] MEDS: FAMOTIDINE 20 MG TAB FEEDTUBE SCH (09:46)
[2021-04-11] MEDS ORDERED: WATER FOR IRRIG STERILE 250 ML BOTTLE IR ONE (09:48)
[2021-04-11] MEDS ORDERED: WATER FOR IRRIG STERILE 1,000 ML BOTTLE ONE (09:48)
--- NOTE | 2021-04-11 10:14 | Consultation ---
History of Present Illness Consult date: 04/11/21 Past History Past Medical History: arthritis, COPD, diabetes, GERD, hypertension, hyperlipidemia Past Surgical History: appendectomy, hysterectomy, Other (Sigmoid colon resection/BERNARDINO (diverticulitis)) Social history: smoking (Former Smoker) Family history: no significant family history Medications and Allergies Allergies Allergy/AdvReac Type Severity Reaction Status Date / Time ipratropium [From Atrovent] Allergy Unknown Verified 11/13/20 08:53 Penicillins Allergy Unknown Verified 11/13/20 08:53 lactose AdvReac Unknown Verified 11/13/20 08:53 shellfish derived AdvReac Swelling Verified 11/13/20 08:53 Tea Allergy Itching Uncoded 07/16/20 19:49 Home Medications Medication Instructions Recorded Confirmed Last Taken Type Fluticasone/Umeclidin/Vilanter 1 puff PO DAILY 03/18/21 03/18/21 Unknown History [Trecelsa Ellipta 100-62.5-25] Buspirone HCl [busPIRone] 30 mg PO TID #90 tab 04/08/21 Unknown Rx Venlafaxine [Effexor 25mg tab] 25 mg PO DAILY #30 04/08/21 Unknown Rx clonazePAM [ Klonopin] 0.5 mg PO BID PRN #60 tab 04/08/21 Unknown Rx AtorvaSTATin 10 mg PO QHS #30 tablet 04/10/21 Unknown Rx Famotidine [Pepcid] 20 mg FEEDTUBE BID #60 tablet 04/10/21 Unknown Rx Metoprolol [Lopressor TAB] 25 mg PO TIDAC #60 tablet 04/10/21 Unknown Rx dilTIAZem [Cardizem] 60 mg FEEDTUBE Q8HR #90 tablet 04/10/21 Unknown Rx predniSONE 10 mg PO QDAY #10 tablet 04/10/21 Unknown Rx Active Meds: Active Medications Acetaminophen (Acetaminophen 325 Mg Tab) 650 mg PO Q6H PRN PRN Reason: Pain MILD(1-3)/Fever >100.5/TOVAR Last Admin: 04/04/21 06:20 Dose: 650 mg Albuterol (Albuterol 2.5 Mg/3 Ml Nebu) 2.5 mg IH Q6H PRN PRN Reason: Wheezing Last Admin: 04/03/21 15:40 Dose: 2.5 mg Alprazolam (Alprazolam 1 Mg Tab) 1 mg PO Q8H PRN PRN Reason: AGITATION Last Admin: 04/09/21 14:19 Dose: 1 mg Arformoterol Tartrate (Arformoterol 15 Mcg/2 Ml Nebu) 15 mcg IH Q12HRT [facility] Last Admin: 04/11/21 08:32 Dose: Not Given Atorvastatin Calcium (Atorvastatin 10 Mg Tab) 10 mg PO QHS [facility] Last Admin: 04/10/21 22:06 Dose: 10 mg Budesonide (Budesonide 0.5 Mg/2 Ml Nebu) 0.5 mg IH Q12HRT [facility] Last Admin: 04/11/21 08:32 Dose: Not Given Buspirone HCl (Buspirone 10 Mg Tab) 30 mg PO TID [facility] Last Admin: 04/11/21 09:45 Dose: Not Given Clonazepam (Clonazepam 0.5 Mg Tab) 0.5 mg PO BID [facility] Last Admin: 04/11/21 09:45 Dose: Not Given Dextrose (Dextrose 50% In Water (25gm) 50 Ml Syringe) 0 ml IV Q30MIN PRN; Protocol PRN Reason: Hypoglycemia Last Admin: 03/31/21 05:16 Dose: 10 ml Diltiazem HCl (Diltiazem 60 Mg Tab) 60 mg FEEDTUBE Q8HR [facility] Last Admin: 04/11/21 06:08 Dose: Not Given Docusate Sodium (Docusate Sodium 100 Mg/10 Ml Oral Liqd) 100 mg PO BID [facility] Last Admin: 04/11/21 09:45 Dose: Not Given Duloxetine HCl (Duloxetine 30 Mg Cap) 30 mg PO QDAY [facility] Last Admin: 04/11/21 09:45 Dose: Not Given Famotidine (Famotidine 20 Mg Tab) 20 mg FEEDTUBE BID [facility] Last Admin: 04/11/21 09:46 Dose: Not Given Haloperidol Lactate (Haloperidol Lactate 5 Mg/1 Ml Inj) 5 mg IV Q6H PRN PRN Reason: Agitation Last Admin: 04/01/21 08:33 Dose: 5 mg Heparin Sodium (Porcine) (Heparin 5,000 Unit/1 Ml Vial) 5,000 unit SUB-Q Q8HR [facility] Last Admin: 04/11/21 06:11 Dose: 5,000 unit Hydralazine HCl (Hydralazine 20 Mg/1 Ml Inj) 5 mg IV Q4HR PRN PRN Reason: SBP >160 Hydrophilic Ointment (Lip Therapy Vaseline) 1 applic TP Q2HR PRN PRN Reason: Dry Lips Insulin Human Lispro (Insulin Lispro 100 Unit/Ml) 0 unit SUB-Q Q6HR [facility]; Protocol Last Admin: 04/11/21 00:00 Dose: Not Given Lorazepam (Lorazepam 2 Mg/Ml Vial) 0.5 mg IV Q4H PRN PRN Reason: Anxiety Last Admin: 04/08/21 08:25 Dose: 0.5 mg Magnesium Hydroxide (Magnesium Hydroxide (Mom) Oral Liqd Udc) 30 ml PO Q4H PRN PRN Reason: Constipation Last Admin: 03/24/21 09:36 Dose: 30 ml Metoprolol Tartrate (Metoprolol Tartrate 25 Mg Tab) 25 mg PO BID [facility] Last Admin: 04/11/21 09:46 Dose: Not Given Morphine Sulfate (Morphine 2 Mg/1 Ml Inj) 2 mg IV Q4H PRN PRN Reason: Pain, Moderate (4-6) Last Admin: 04/10/21 23:27 Dose: 2 mg Morphine Sulfate (Morphine 4 Mg/1 Ml Inj) 4 mg IV Q4H PRN PRN Reason: Pain , Severe (7-10) Last Admin: 04/03/21 17:21 Dose: 4 mg Multi-Ingred Cream/Lotion/Oil/Oint (Mineral Oil/Petrolatum, White Ophth Oint 3.5 Gm) 1 applic OU Q4HR PRN PRN Reason: Dry Eye(s) Prednisone (Prednisone 10 Mg Tab) 10 mg PO QDAY [facility] Last Admin: 04/11/21 09:46 Dose: Not Given Senna/Docusate Sodium (Sennosides/Docusate Sodium 8.6/50 Mg Tab) 1 tab FEEDTUBE BID [facility] Last Admin: 04/11/21 09:46 Dose: Not Given Simple Syrup (Simple Syrup 15 Ml) 15 ml FEEDTUBE PRN PRN PRN Reason: Hypoglycemia Last Admin: 04/04/21 22:02 Dose: 15 ml Simple Syrup (Simple Syrup 15 Ml) 30 ml FEEDTUBE PRN PRN PRN Reason: Hypoglycemia Sodium Chloride (Sodium Chloride 0.9% 10 Ml Flush Syringe) 10 ml IV BID [facility] Last Admin: 04/10/21 22:07 Dose: 10 ml Sodium Chloride (Sodium Chloride 0.9% 10 Ml Flush Syringe) 10 ml IV PRN PRN PRN Reason: LINE FLUSH Last Admin: 03/22/21 23:20 Dose: 10 ml Venlafaxine HCl (Venlafaxine 25 Mg Tab) 25 mg PO QDAY [facility] Last Admin: 04/11/21 09:45 Dose: Not Given Physical Examination Vital Signs Pulse Pulse Ox 162 H 96 03/17/21 17:40 03/17/21 17:40 Results 04/10/21 05:05 04/10/21 05:05 Assessment and Plan - Patient Problems (1) Respiratory failure Current Visit: Yes Status: Acute
[2021-04-11] MEDS: INSULIN LISPRO 100 UNIT/ML SUB-Q SCH ×4 (12:07→23:32)
[2021-04-11] MEDS ORDERED: SODIUM CHLORIDE 0.9% 1000 ML 1,000 ML ONE (12:35)
[2021-04-11] MEDS ORDERED: GENTAMICIN/NS 80 MG/100 ML 100 ML IV ONE ×2 (12:45→13:30)
--- NOTE | 2021-04-11 12:50 | Anesthesia Day of Surgery ---
Anesthesia Day of Surgery - Day of Surgery Patient Examined: Yes Patient H&P Reviewed: Yes Patient is NPO: Yes
--- NOTE | 2021-04-11 12:54 | Anesthesia Consultation ---
Anesthesia Consult and Med Hx Date of service: 04/11/21 - Airway Anesthetic Teeth Evaluation: Good ROM Head & Neck: Adequate Mental/Hyoid Distance: Adequate Mallampati Class: Class III Intubation Access Assessment: Probably Good - Pre-Operative Health Status ASA Pre-Surgery Classification: ASA4 Proposed Anesthetic Plan: General - Pulmonary Hx Smoking: Yes Hx Asthma: No Hx Respiratory Symptoms: Yes (Was intubated) COPD: Yes Hx Pneumonia: No Hx Sleep Apnea: Yes - Cardiovascular System Hx Hypertension: Yes Hx Angina: No Hx Cardia Arrhythmia: Yes (Afib) Hx Pacemaker: No Hx Internal Defibrillator: No Hx Valvular Heart Disease: Yes (Valve Leakage) - Central Nervous System Hx Back Pain: Yes Hx Psychiatric Problems: Yes (severe anxiety, depression) - Gastrointestinal 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
[2021-04-11] MEDS ORDERED: propofoL 200 MG/20 ML VIAL IV ONE (13:00)
[2021-04-11] MEDS ORDERED: LIDOCAINE MPF (2%) 20 MG/1 ML VIAL 5 ML ONE (13:00)
[2021-04-11] MEDS ORDERED: GENTAMICIN 80 MG in SODIUM CHLORIDE 0.9% 100 ML IV ONE (13:00)
[2021-04-11] MEDS ORDERED: NEOSTIGMINE 10MG/10 ML INJ MDV ONE (13:00)
[2021-04-11] MEDS ORDERED: SUCCINYLCHOLINE CHLORIDE 200 MG/10 ML INJ MDV ONE (13:01)
--- NOTE | 2021-04-11 13:18 | Discharge Summary ---
Providers - Providers Date of Admission: 03/17/21 23:58 Date of discharge: 04/12/21 Attending physician: SUSY LUJAN 03/18/21 00:00 Consult to Physician [CONS] Routine Comment: Consulting Provider: HELADIO GAGE Physician Instructions: Reason For Exam: Respiratory failure,Elevated troponin Consult to Physician [CONS] Routine Comment: Dr. Lua spoke with Dr. Gage @ [id number] Consulting Provider: HELADIO GAGE Physician Instructions: Reason For Exam: Acute hypoxemic respiratory failure, ICU managemen 03/18/21 00:47 Consult to Cardiology [CONS] Routine Consulting Provider: SINCERE BECERRA Reason For Exam: Cardiac Arrhythmia 03/26/21 05:27 Consult to Wound/ET Nurse [CONS] Routine Reason For Exam: wound eval 03/26/21 11:34 Midline [Consult to PICC Line RN] [CONS] Stat Reason For Exam: No iv access Type Line:: Midline 04/01/21 15:21 Speech Therapy Evaluation and Treat [CONS] Routine Reason For Exam: Failed bedside swallow 04/02/21 13:15 Consult to Physician [CONS] Routine Comment: Consulting Provider: SHAYNE KERR Physician Instructions: Reason For Exam: severe anxiety/depresion 04/09/21 16:27 Consult to Physician [CONS] Routine Comment: Consulting Provider: IMTIAZ NARAYANAN Physician Instructions: Reason For Exam: PEG tube Primary care physician: [employer] Hospitalization Condition: Stable Hospital course: Brief history and daily Hospital course This is a 60-year-old female with COPD with oxygen dependence currently with palliative care, DM, former nicotine abuse, severe anxiety, GERD, HLD, HTN and PAGE presented to emergency department on 03/17 via EMS with complaints of shortness of breath. On arrival of EMS patient was found to be in SVT with a heart rate of about 200 and blood pressure to be quite elevated with systolic in 200s. She was given 6 mg of adenosine without significant changes subsequently given 12 mg of adenosine with improvement of her heart rate. Upon arrival to the emergency department patient was found to be in atrial fibrillation with RVR and dyspneic. Work-up in the emergency department revealed leukocytosis, lactic acidosis, transaminitis, hypoalbuminemia and a troponin leak. CXR, CT a chest and CT head were unremarkable. Patient was admitted to the hospitalist service with consults to [facility] and cardiology for further work-up of acute on chronic respiratory failure, SVT and hypertensive urgency. Hospital Course to date: 03/18/2021: Patient is intubated and on vent support, Patient is in sinus tachycardia 03/19: COVID-19 PCR negative, remains on ventilatory support, Versed drip changed to propofol. No acute events reported overnight. Tracheal aspirate with few gram-positive Cocci. This afternoon, patient went in to the 150s, giving 500 mL NS bolus and fentanyl push to see if it pain related. If persists then will order prn Ativan per Dr. Gage recommendation. 03/20: Restarted on home metoprolol and abdominal ultrasound showed right hydronephrosis. Abd US shows right hydroureteronephrosis and will obtain a dedicated renal US. She seems to more comfortable on propofol and fentanyl 03/21: Patient's FiO2 had to be decreased overnight due to hypoxia and tachycardia. Hyperkalemia noted and given Kayexalate. 1 unit PRBC for hemoglobin 6.8. [facility] plans to extubate tomorrow. Increase in Lantus. 03/22: Transfuse one unit prbc, failed SBT in the AM d/t hypertension. [facility] extubated the patient but she was reintubated within [address] head ordered and pending read. Given kionex x2 for hyperkalemia 03/23: This morning patient was only on Precedex drip and overnight she had agitation, hypertension and tachycardia. RN instructed to place fentanyl drip. Increase in Lantus for better glucose control. Will remove Wall[place] today. 03/24/2021: no acute events reported overnight. Patient remains intubated and is currently on fentanyl and Precedex. Increase in Lantus due to hyperglycemia. 03/25: no acute events overnight. increase in lantus and decreased steroids today. 04/02: Bipap q hs and optiflow in the AM, remains on precedex. Psych consulted today. 04/03: Patient failed swallow evaluation today and ST recommended PEG tube placement. NG tube was replaced yesterday and tube feeds changed to cyclic feedings today given she was BiPAP overnight. Psych consulted. Likely DC tomorrow or . 04/04: Patient has long standing anxiety history. Needs medication optimization. May uptitrate buspar. PCCM stated that patient did not tolerate klonopin as an OP. Currently working to taper steroids. No GI consult at this time for PEG as PCCM d/w . Will continue to work with CM for hospice placement. 04/05: Klonopin unfortunately not effective in this patient. Awaiting psych input/eval for today. Will continue to work towards hospice placement with CM. 04/06: On hi flow 35/50. comfortable on my encounter. Effexor added by psychiatry. Will work towards hospice placement with CM. 04/07: Placed on bipap, has been on since this am. comfortable on my encounter. Pending hospice placement by CM. 04/08: Remains on bipap. Will try to aggressively wean if possible. Will work with Cm friday for hospice placement. 04/09: Discharge to hospice. Arrangements made by CM 04/10; discharge is held as patient has dysphagia, GI evaluated the patient Scheduled for PEG placement tomorrow 04/11; patient remains on BiPAP, patient waiting on PEG tube placement. If tolerated the procedure and tolerates PEG tube feeding patient will be discharged with hospice. 04/12' patient tolerating tube feeding with recently placed PEG. Patient will be discharged with hospice today in stable condition. Disposition: [facility] Final Discharge Diagnosis (Prints w/discharge instructions): Acute on chronic respiratory failure, h/o COPD and PAGE. Transaminitis (resolving), h/o chronic constipation. Hepatic/metabolic encephalopathy, h/o severe anxiety, depression. Hypertensive emergency (resolved), s/p A. fib with RVR and SVT, h/o HTN, HLD. Mild right hydroureteronephrosis. DM type 2. Anemia, Leukocytosis, h/o Microcytic anemia. Gram positive cocci in tracheal aspirate Time spent for discharge: 34 minutes Core Measure Documentation - Palliative Care Palliative Care/ Comfort Measures: Hospice Care - Core Measures Any of the following diagnoses?: history only Exam - Physical Exam Narrative exam: General appearance: Present: mild distress, other (On BiPAP) - EENT Eyes: Present: PERRL, EOM intact - Neck Neck: Present: supple, normal ROM - Respiratory Respiratory effort: normal Respiratory: bilateral: diminished, rhonchi, negative: rales, wheezing - Cardiovascular Rhythm: regular Heart Sounds: Present: S1 & S2 - Extremities Extremities: no ischemia, No edema - Abdominal General gastrointestinal: soft, non-tender, non-distended, normal bowel sounds - Integumentary Integumentary: Present: clear, warm - Psychiatric Psychiatric: other (Noncommunicative) - Neurologic Neurologic: other - Constitutional Vitals: Temp Pulse Resp BP Pulse Ox 98.7 F 107 H 24 134/87 100 04/11/21 08:56 04/11/21 08:56 04/11/21 08:56 04/11/21 08:56 04/11/21 12:19 Plan Activity: fall precautions Weight Bearing Status: Non-Weight Bearing Diet: other (TF) Follow up with: PRIMARY CARE, [Primary Care Provider] - 7 Days Prescriptions: AtorvaSTATin 10 mg PO QHS #30 tablet Buspirone HCl [busPIRone] 30 mg PO TID #90 tab dilTIAZem [Cardizem] 60 mg FEEDTUBE Q8HR #90 tablet Venlafaxine [Effexor 25mg tab] 25 mg PO DAILY #30 clonazePAM [ Klonopin] 0.5 mg PO BID PRN #60 tab PRN Reason: Anxiety Metoprolol [Lopressor TAB] 25 mg PO TIDAC #60 tablet Famotidine [Pepcid] 20 mg FEEDTUBE BID #60 tablet predniSONE 10 mg PO QDAY #10 tablet
[2021-04-11] MEDS ORDERED: PHENYLEPHRINE/NS 1,000 MCG/10 ML SYRINGE (OR USE) IV ONE (13:21)
--- NOTE | 2021-04-11 13:35 | Post Operative Note ---
Pre-op diagnosis: Neurogenic Dysphagia Post-op diagnosis: same (, S/P PEG tube) Findings: 1. Dobhoff present R nares, removed 2. Normal stomach - 20Fr Pull type PEG placed 4cm below LSB - External bumper 4cm Procedure: EGD with PEG placement Anesthesia: STACIA Surgeon: IMTIAZ NARAYANAN Estimated blood loss: minimal Pathology: none Specimen disposition: other (N/A) Condition: stable Disposition: floor (Recs: 1. OK to use PEG in 4 hours. 2. Hold anticoagulation until tomorrow AM (DVT PPY with lovenox or heparin OK to give now). 3. Will loosen bumper tomorrow prior to discharge.)
--- NOTE | 2021-04-11 14:02 | Progress Note ---
Assessment and Plan - Patient Problems (1) Respiratory failure Current Visit: Yes Status: Acute Plan to address problem: Patient with long history of severe, oxygen dependent COPD, presented with respiratory failure due to COPD exacerbation. Stable sinus rhythm in the CCU. Continue supportive management and current treatment of COPD exacerbation. Subjective Date of service: 04/11/21 Principal diagnosis: Neurogenic Dysphagia Interval history: Patient is comfortable on facemask oxygen, no new cardiac events reported. Objective Vital Signs Temp Pulse Pulse Resp Resp BP Pulse Ox 04/11/21 12:19 100 04/11/21 08:56 98.7 F 107 H 24 134/87 100 04/11/21 08:30 128 H 18 100 04/11/21 05:57 97 H 17 99 04/11/21 03:55 98.5 F 94 H 22 150/85 96 04/11/21 02:49 106 H 17 98 04/10/21 23:27 18 04/10/21 23:19 99.1 F 93 H 22 126/77 99 04/10/21 21:09 101 H 18 04/10/21 21:06 72 16 99 04/10/21 20:45 100 04/10/21 20:43 100 H 04/10/21 20:26 98.5 F 103 H 22 148/76 99 04/10/21 16:24 97.9 F 100 H 18 134/81 99 04/10/21 15:03 99 H 20 98 - Physical Examination General: No Apparent Distress, Other (Lethargic) HEENT: Positive: PERRL, Normocephaly, Other (Moderately obese) Neck: Positive: neck supple, trachea midline Cardiac: Positive: Reg Rate and Rhythm Lungs: Positive: Decreased Breath Sounds Neuro: Positive: Weakness (Generalized lethargy) Abdomen: Positive: Soft Skin: Positive: Clear Extremities: Absent: edema
--- NOTE | 2021-04-11 14:18 | Operative Report ---
DATE OF SURGERY: 04/11/2021 PROCEDURE PERFORMED: Esophagogastroduodenoscopy with percutaneous gastrostomy tube placement. PREOPERATIVE DIAGNOSIS: Neurogenic dysphagia. POSTOPERATIVE DIAGNOSES: Neurogenic dysphagia, status post gastrostomy tube placement. ENDOSCOPIST: Michael Hinkle M.D. INSTRUMENT: The Olympus video endoscope. MEDICATIONS: GETA anesthesia by anesthesia services as well as gentamicin 80 mg IV and clindamycin 900 mg IV prior to the start of the procedure. COMPLICATIONS: No apparent complications. ESTIMATED BLOOD LOSS: Minimal. SPECIMENS: None. IMPLANTS: A 20-Chinese pull-type gastrostomy tube placed on the anterior wall of the body of the stomach. ASSISTANTS: None. CONDITION AT COMPLETION: Stable. TECHNIQUE: The patient and her were informed of the risks and benefits of the procedure. The gave the informed consent to proceed due to the patient's profound distress. After consent was obtained, she was placed in the supine position and was intubated; the above sedative medications were given. Her vital signs remained stable throughout the procedure. The instrument was advanced from the mouth to the second portion of the duodenum under direct visualization. At that point, the bowel was insufflated and the endoscope was slowly withdrawn. In the stomach in an area 4 cm below the left sternal border, there was a good red light reflex and indentation. This area was sterilely draped and prepped, and anesthetized using local lidocaine; there was no air in the hub of the syringe of the lidocaine until entry of the needle into the lumen of the stomach. A small incision was made and a 20-Chinese pull-type gastrostomy tube was placed over a guidewire in the usual fashion. At that point, the bowel was decompressed and the procedure was terminated. FINDINGS: 1. Dobbhoff present in the right naris at the start of the procedure, removed prior to the endoscopy. 2. Normal duodenum, stomach, and esophagus. A. A 20-Chinese pull-type gastrostomy tube was placed 4 cm below the left sternal border. B. The external bumper was fixed at 4 cm. RECOMMENDATIONS: 1. Okay to use the gastrostomy tube in 4 hours. 2. Hold anticoagulation until tomorrow morning, although DVT prophylaxis with Lovenox or heparin is okay to give as scheduled. 3. We will loosen the bumper tomorrow prior to discharge. TID: [id number] RECEIPT: [id number] ROWAN/TAMMIE
--- NOTE | 2021-04-11 14:43 | Progress Note ---
Assessment and Plan 60 y/o female with acute on chronic respiratory failure, SVT and HTN likely all related to anxiety and stress 04/11/21: Pulm status is stable. Peg placed today. Patient and family agreeing to go home with home hospice. Given she had procedure this afternoon, doubt she is ready for discharge to home yet. Will alert hospice so that they can get bipap set up at home. Possible discharge either tomorrow or Friday. 04/08/21: No new recs for today, please see below. 04/07/21: Started new anti depressant, appreciate psych recs. Continue HFNC during the day and NIV at night. Home with hospice soon. 04/06/21 PSych to readdress meds. Tolerated the HFNC all day. Will attempt transfer to telemetry floor. 04/05/21: Will speak with psych. Continue to attempt to convince patient to wear HFNC and Bipap at night. Drop steroids 04/04/21: Saw first hand what patient is likely doing at home. Severe panic attacks. For record, gordoonogerardo is what I started her on as an outpatient and she did not tolerate it. I had her on 1 BID and per the patient and she was completely out of it. Need to find the right combo that allows her to be calm and awake and functional. Will drop steroids down tomorrow to 10 daily and monitor for signs of AI. Hold on GI consult for now for peg, spoke with over the phone to update him. Very very guarded to poor prognosis. 04/03/21: Oxygen requirement is acceptable for hospice. Awaiting Pysch recs for anxiety control. Ok with increasing Buspar. Hopeful home with hospice as early as today but more reasonable would be tomorrow or . 04/02/21: Patient has verbally expressed that she wants to go home and she wants to go home with home hospice. Patient is already on [facility] palliative service and can transition to hospice. Awaiting to see how much oxygen we are able to provide for patient. She should be able to be weaned to nasal cannula but await to hear back from [facility]. Per [facility] can do 50 liters and 50%. Patient currently on 40 and 50 with sat of 100. Await psych recommendations. 03/30/21: Currently still on bipap. No HFNC units available in the house. Transfused blood on yesterday. But no CBC checked today. Patient states that s he is tired and has expressed this to several of the staff. She is currently on [facility] but my plan is to discuss hospice with her and her . Dropping steroids down starting tomorrow. Continue to wean Oxygen as tolerated. If possible keep in either ICU or step down over the weekend. 03/29/21: Currently on bipap. Good volumes and good sats. Still with some mild distress but stable. Will continue bipap therapy for now. Tomorrow will need to place psych consult if able to stay of the vent and weaned from continuous bipap to help us address anxiety and depression. IMS will likely want to transfuse PRBC's. Would give slowly if done. Discussed with SALVAGE GRINDER and Bedside nurse, will restart precedex at low dose to help with anxiety. Will alert . 03/28/21: Continue PSV but she isnt ready for extubation today. Not able to tolerates PSV on yesterday so today is first real test. Dropped steroids to daily starting today. UOP is stable, but she is grossly positive. If oxygen requirement increases, check CXR and may need to consider lasix. Continue PSV for as long as possible today but definitely rest overnight. Guarded prognosis. May eventually need trach. 03/27/21: Monitor renal function and urine output closely. Not sure why K continues to be elevated despite daily correction therapy. Attempt PSV off fent but can continue precedex. Will see how patient looks tomorrow but still may not be a candidate for extubation. Drop steroids to daily starting tomorrow. 03/26/21: Continue daily PSV trials. Agree with my partner as I would like a nother trial of routine extubation before committing to trach. Discussed with family and patient at bedside this am. Continue solumedrol 40q12. IMS restarted buspar. WIll have psych see and evaluate to help with anxiety and depression once extubated. Guarded prognosis. 03/22/21: Please see event note for details. Planned to extubate today and wean steroids. 03/21/21: Echo given continued tachycardia despite adequate oxygenation. Can drop steroids to 40q8. 03/19/21: Continue sedation. Wean FiO2 for sats >88%. consider weaning steroid tomorrow. Follow up RUQ and trend LFT's 1. Wean Versed and place on Diprovan drip 2. Will give Fent 100 IV x1 now and order drip if needed for pain 3. Spoke with over the phone to get more history. Sounds like a panic attack not aborted by xanax therapy. Did check Tylenol level as patient has been in pain from fall 4. Elevated LFT's former drinker but confirms she has not been drinking. Ordered RUQ ultrasound and need to repeat LFT's tomorrow 5. Reviewed cards note, and they do not want to treat tachycardia or elevated bp, likely needs more sedation Guarded prognosis CCT 31 minutes. Subjective Date of service: 04/11/21 Principal diagnosis: Neurogenic Dysphagia Interval history: Patient tolerated procedure and was successfully extubated in the PACU. Currently on bipap with good sats. Awake and alert. Objective Vital Signs - 12hr 04/11/21 04/11/21 04/11/21 02:49 03:55 05:57 Temperature 98.5 F Pulse Rate 106 H 94 H 97 H Respiratory 17 22 17 Rate Blood Pressure 150/85 O2 Sat by Pulse 98 96 99 Oximetry 04/11/21 04/11/21 04/11/21 08:30 08:56 12:19 Temperature 98.7 F Pulse Rate 128 H 107 H Respiratory 18 24 Rate Blood Pressure 134/87 O2 Sat by Pulse 100 100 100 Oximetry 04/11/21 12:28 Temperature 98.6 F Pulse Rate 124 H Respiratory 22 Rate Blood Pressure 152/103 O2 Sat by Pulse 100 Oximetry Constitutional: other (moderate distress) Eyes: non-icteric ENT: oropharynx moist Neck: supple Effort: normal Ascultation: Bilateral: diminished breath sounds Cardiovascular: regular rate and rhythm (no mrg) Gastrointestinal: normoactive bowel sounds, soft, non-tender, non-distended Extremities: no cyanosis, no edema, pink and warm Neurologic: normal mental status, non-focal exam, pupils equal and round Psychiatric: mood appropriate, affect normal CBC and BMP: 04/10/21 05:05 04/10/21 05:05 ABG, PT/INR, D-dimer: ABG ABG pH 7.477 (7.320-7.450) H 03/24/21 08:57 POC ABG pCO2 56.9 mmHg (32.0-48.0) H 03/24/21 08:57 ABG pCO2 72.7 mm Hg 03/23/21 04:50 POC ABG pO2 100.6 mmHg (83-108) 03/24/21 08:57 ABG pO2 70.7 mm Hg (80.0-90.0) L 03/23/21 04:50 POC ABG HCO3 41.1 03/24/21 08:57 ABG O2 Saturation 98.3 (0-100) 03/24/21 08:57 PT/INR, D-dimer PT 11.2 Sec. (12.2-14.9) L 04/10/21 05:05 INR 0.73 (0.87-1.13) L 04/10/21 05:05 D-Dimer 947.92 ng/mlDDU (0-234) H 03/17/21 17:37 Abnormal lab findings: Abnormal Labs 03/17/21 03/17/21 03/17/21 17:36 17:36 17:37 WBC 13.8 H RBC 3.48 L Hgb 7.0 L Hct 26.2 L MCV 75 L MCH 20 L MCHC 27 L RDW 25.4 H Plt Count Seg Neuts % (Manual) Lymphocytes % (Manual) Monocytes % (Manual) Nucleated RBC % 7.0 H Seg Neutrophils # Man 8.7 H Lymphocytes # (Manual) Monocytes # (Manual) PT INR 0.85 L APTT 23.3 L D-Dimer 947.92 H ABG pH POC ABG pCO2 POC ABG pO2 ABG pO2 ABG HCO3 ABG O2 Saturation ABG Base Excess ABG Hemoglobin ABG Oxyhemoglobin ABG Potassium ABG Chloride ABG Glucose Oxyhemoglobin Sodium Potassium Chloride 88.2 L Carbon Dioxide 38 H BUN Creatinine Glucose 129 H POC Glucose Lactic Acid Calcium Phosphorus Magnesium AST 177 H ALT 251 H Alkaline Phosphatase Ammonia Troponin T 0.036 H Total Protein 5.9 L Albumin 3.8 L Triglycerides 173 H HDL Cholesterol 73 H Lipase Arterial Blood Glucose Arterial Blood Ionized Calcium Acetaminophen Crossmatch 03/17/21 03/17/21 03/17/21 18:15 18:40 18:40 WBC RBC Hgb Hct MCV MCH MCHC RDW Plt Count Seg Neuts % (Manual) Lymphocytes % (Manual) Monocytes % (Manual) Nucleated RBC % Seg Neutrophils # Man Lymphocytes # (Manual) Monocytes # (Manual) PT INR APTT D-Dimer ABG pH POC ABG pCO2 POC ABG pO2 ABG pO2 94.4 H ABG HCO3 44.8 H ABG O2 Saturation ABG Base Excess 16.6 H ABG Hemoglobin ABG Oxyhemoglobin ABG Potassium ABG Chloride ABG Glucose Oxyhemoglobin Sodium Potassium Chloride Carbon Dioxide BUN Creatinine Glucose POC Glucose Lactic Acid 4.00 H* Calcium Phosphorus Magnesium AST ALT Alkaline Phosphatase Ammonia 116.0 H Troponin T Total Protein Albumin Triglycerides HDL Cholesterol Lipase Arterial Blood Glucose Arterial Blood Ionized Calcium Acetaminophen Crossmatch 03/17/21 03/18/21 03/18/21 23:36 00:25 23:07 WBC RBC Hgb Hct MCV MCH MCHC RDW Plt Count Seg Neuts % (Manual) Lymphocytes % (Manual) Monocytes % (Manual) Nucleated RBC % Seg Neutrophils # Man Lymphocytes # (Manual) Monocytes # (Manual) PT INR APTT D-Dimer ABG pH POC ABG pCO2 POC ABG pO2 ABG pO2 68.1 L ABG HCO3 40.2 H ABG O2 Saturation ABG Base Excess 14.4 H ABG Hemoglobin 6.5 L ABG Oxyhemoglobin ABG Potassium ABG Chloride ABG Glucose Oxyhemoglobin Sodium Potassium Chloride Carbon Dioxide BUN Creatinine Glucose POC Glucose Lactic Acid 4.00 H* Calcium Phosphorus Magnesium AST ALT Alkaline Phosphatase Ammonia Troponin T Total Protein Albumin Triglycerides HDL Cholesterol Lipase Arterial Blood Glucose Arterial Blood Ionized Calcium Acetaminophen 5.0 L Crossmatch 03/19/21 03/19/21 03/19/21 00:50 03:25 04:59 WBC RBC 3.43 L Hgb 7.0 L Hct 25.6 L MCV 75 L MCH 20 L MCHC 27 L RDW 25.6 H Plt Count Seg Neuts % (Manual) 91.0 H Lymphocytes % (Manual) Monocytes % (Manual) 9.0 H Nucleated RBC % 3.0 H Seg Neutrophils # Man 9.0 H Lymphocytes # (Manual) 0.0 L Monocytes # (Manual) PT INR APTT D-Dimer ABG pH 7.531 H POC ABG pCO2 POC ABG pO2 ABG pO2 49.6 L ABG HCO3 31.4 H ABG O2 Saturation 99.6 H ABG Base Excess 8.1 H ABG Hemoglobin 7.2 L ABG Oxyhemoglobin ABG Potassium ABG Chloride ABG Glucose Oxyhemoglobin Sodium Potassium Chloride Carbon Dioxide BUN Creatinine Glucose POC Glucose 127 H Lactic Acid Calcium Phosphorus Magnesium AST ALT Alkaline Phosphatase Ammonia Troponin T Total Protein Albumin Triglycerides HDL Cholesterol Lipase Arterial Blood Glucose Arterial Blood Ionized Calcium Acetaminophen Crossmatch 03/19/21 03/19/21 03/19/21 04:59 10:37 12:00 WBC RBC Hgb Hct MCV MCH MCHC RDW Plt Count Seg Neuts % (Manual) Lymphocytes % (Manual) Monocytes % (Manual) Nucleated RBC % Seg Neutrophils # Man Lymphocytes # (Manual) Monocytes # (Manual) PT INR APTT D-Dimer ABG pH 7.494 H POC ABG pCO2 POC ABG pO2 ABG pO2 107.3 H ABG HCO3 31.6 H ABG O2 Saturation ABG Base Excess 7.7 H ABG Hemoglobin 7.1 L ABG Oxyhemoglobin ABG Potassium ABG Chloride ABG Glucose Oxyhemoglobin Sodium Potassium Chloride 89.5 L Carbon Dioxide BUN Creatinine Glucose 121 H POC Glucose Lactic Acid Calcium Phosphorus Magnesium AST 359 H ALT 1434 H Alkaline Phosphatase Ammonia Troponin T Total Protein 5.7 L Albumin 3.5 L Triglycerides HDL Cholesterol Lipase Arterial Blood Glucose Arterial Blood Ionized Calcium Acetaminophen Crossmatch 03/19/21 03/19/21 03/19/21 12:05 17:52 23:23 WBC RBC Hgb Hct MCV MCH MCHC RDW Plt Count Seg Neuts % (Manual) Lymphocytes % (Manual) Monocytes % (Manual) Nucleated RBC % Seg Neutrophils # Man Lymphocytes # (Manual) Monocytes # (Manual) PT INR APTT D-Dimer ABG pH POC ABG pCO2 POC ABG pO2 ABG pO2 ABG HCO3 ABG O2 Saturation ABG Base Excess ABG Hemoglobin ABG Oxyhemoglobin ABG Potassium ABG Chloride ABG Glucose Oxyhemoglobin Sodium Potassium Chloride Carbon Dioxide BUN Creatinine Glucose POC Glucose 122 H 114 H 187 H Lactic Acid Calcium Phosphorus Magnesium AST ALT Alkaline Phosphatase Ammonia Troponin T Total Protein Albumin Triglycerides HDL Cholesterol Lipase Arterial Blood Glucose Arterial Blood Ionized Calcium Acetaminophen Crossmatch 03/19/21 03/20/21 03/20/21 Unknown 03:50 03:57 WBC RBC Hgb Hct MCV MCH MCHC RDW Plt Count Seg Neuts % (Manual) Lymphocytes % (Manual) Monocytes % (Manual) Nucleated RBC % Seg Neutrophils # Man Lymphocytes # (Manual) Monocytes # (Manual) PT INR APTT D-Dimer ABG pH 7.477 H POC ABG pCO2 POC ABG pO2 ABG pO2 67.9 L ABG HCO3 33.9 H ABG O2 Saturation ABG Base Excess 9.5 H ABG Hemoglobin 6.7 L ABG Oxyhemoglobin ABG Potassium ABG Chloride ABG Glucose Oxyhemoglobin Sodium Potassium Chloride Carbon Dioxide BUN Creatinine Glucose POC Glucose 247 H Lactic Acid Calcium Phosphorus Magnesium AST ALT Alkaline Phosphatase Ammonia Troponin T Total Protein Albumin Triglycerides HDL Cholesterol Lipase 12 L Arterial Blood Glucose Arterial Blood Ionized Calcium Acetaminophen Crossmatch 03/20/21 03/20/21 03/20/21 04:18 04:18 10:16 WBC RBC 3.48 L Hgb 7.0 L Hct 25.3 L MCV 73 L MCH 20 L MCHC 28 L RDW 25.2 H Plt Count 541 H Seg Neuts % (Manual) Lymphocytes % (Manual) Monocytes % (Manual) Nucleated RBC % Seg Neutrophils # Man Lymphocytes # (Manual) Monocytes # (Manual) PT INR APTT D-Dimer ABG pH POC ABG pCO2 POC ABG pO2 ABG pO2 63.3 L ABG HCO3 34.0 H ABG O2 Saturation 90.0 L ABG Base Excess 7.9 H ABG Hemoglobin 10.5 L ABG Oxyhemoglobin ABG Potassium ABG Chloride ABG Glucose Oxyhemoglobin 88.1 L Sodium Potassium Chloride 91.6 L Carbon Dioxide BUN 22 H Creatinine Glucose 245 H POC Glucose Lactic Acid Calcium Phosphorus Magnesium AST 148 H ALT 1096 H Alkaline Phosphatase 133 H Ammonia Troponin T Total Protein Albumin 3.5 L Triglycerides HDL Cholesterol Lipase Arterial Blood Glucose Arterial Blood Ionized Calcium Acetaminophen Crossmatch 03/20/21 03/20/21 03/21/21 12:05 17:26 00:18 WBC RBC Hgb Hct MCV MCH MCHC RDW Plt Count Seg Neuts % (Manual) Lymphocytes % (Manual) Monocytes % (Manual) Nucleated RBC % Seg Neutrophils # Man Lymphocytes # (Manual) Monocytes # (Manual) PT INR APTT D-Dimer ABG pH POC ABG pCO2 POC ABG pO2 ABG pO2 ABG HCO3 ABG O2 Saturation ABG Base Excess ABG Hemoglobin ABG Oxyhemoglobin ABG Potassium ABG Chloride ABG Glucose Oxyhemoglobin Sodium Potassium Chloride Carbon Dioxide BUN Creatinine Glucose POC Glucose 226 H 215 H 323 H Lactic Acid Calcium Phosphorus Magnesium AST ALT Alkaline Phosphatase Ammonia Troponin T Total Protein Albumin Triglycerides HDL Cholesterol Lipase Arterial Blood Glucose Arterial Blood Ionized Calcium Acetaminophen Crossmatch 12/03/21/21 03/21/21 04:00 05:05 09:28 WBC 12.0 H RBC 3.42 L Hgb 6.8 L Hct 25.3 L MCV 74 L MCH 20 L MCHC 27 L RDW 25.1 H Plt Count 650 H Seg Neuts % (Manual) Lymphocytes % (Manual) Monocytes % (Manual) Nucleated RBC % Seg Neutrophils # Man Lymphocytes # (Manual) Monocytes # (Manual) PT INR APTT D-Dimer ABG pH 7.348 L POC ABG pCO2 POC ABG pO2 ABG pO2 56.3 L ABG HCO3 36.9 H ABG O2 Saturation 83.4 L ABG Base Excess 10.0 H ABG Hemoglobin 7.0 L ABG Oxyhemoglobin ABG Potassium ABG Chloride ABG Glucose Oxyhemoglobin 81.7 L Sodium Potassium Chloride Carbon Dioxide BUN Creatinine Glucose POC Glucose 311 H Lactic Acid Calcium Phosphorus Magnesium AST ALT Alkaline Phosphatase Ammonia Troponin T Total Protein Albumin Triglycerides HDL Cholesterol Lipase Arterial Blood Glucose Arterial Blood Ionized Calcium Acetaminophen Crossmatch 03/21/21 03/21/21 03/21/21 09:28 12:31 14:08 WBC RBC Hgb Hct MCV MCH MCHC RDW Plt Count Seg Neuts % (Manual) Lymphocytes % (Manual) Monocytes % (Manual) Nucleated RBC % Seg Neutrophils # Man Lymphocytes # (Manual) Monocytes # (Manual) PT INR APTT D-Dimer ABG pH POC ABG pCO2 POC ABG pO2 ABG pO2 ABG HCO3 ABG O2 Saturation ABG Base Excess ABG Hemoglobin ABG Oxyhemoglobin ABG Potassium ABG Chloride ABG Glucose Oxyhemoglobin Sodium Potassium 5.1 H D Chloride 94.4 L Carbon Dioxide 33 H BUN 32 H Creatinine Glucose 319 H POC Glucose 295 H Lactic Acid Calcium Phosphorus Magnesium 2.40 H AST ALT 697 H Alkaline Phosphatase 134 H Ammonia Troponin T Total Protein 5.8 L Albumin 3.4 L Triglycerides HDL Cholesterol Lipase Arterial Blood Glucose Arterial Blood Ionized Calcium Acetaminophen Crossmatch See Detail 03/22/21 03/22/21 03/22/21 00:14 04:30 04:39 WBC RBC Hgb Hct MCV MCH MCHC RDW Plt Count Seg Neuts % (Manual) Lymphocytes % (Manual) Monocytes % (Manual) Nucleated RBC % Seg Neutrophils # Man Lymphocytes # (Manual) Monocytes # (Manual) PT INR APTT D-Dimer ABG pH 7.310 L POC ABG pCO2 POC ABG pO2 ABG pO2 65.4 L ABG HCO3 38.3 H ABG O2 Saturation 90.8 L ABG Base Excess 10.9 H ABG Hemoglobin 6.4 L ABG Oxyhemoglobin ABG Potassium ABG Chloride ABG Glucose Oxyhemoglobin 88.7 L Sodium Potassium Chloride Carbon Dioxide BUN Creatinine Glucose POC Glucose 326 H Lactic Acid Calcium Phosphorus Magnesium AST ALT Alkaline Phosphatase Ammonia Troponin T Total Protein Albumin Triglycerides 189 H HDL Cholesterol Lipase Arterial Blood Glucose Arterial Blood Ionized Calcium Acetaminophen Crossmatch 03/22/21 03/22/21 03/22/21 04:39 04:39 09:45 WBC 12.8 H RBC 3.34 L Hgb 6.6 L Hct 24.5 L MCV 73 L MCH 20 L MCHC 27 L RDW 25.5 H Plt Count 644 H Seg Neuts % (Manual) Lymphocytes % (Manual) Monocytes % (Manual) Nucleated RBC % Seg Neutrophils # Man Lymphocytes # (Manual) Monocytes # (Manual) PT INR APTT D-Dimer ABG pH POC ABG pCO2 65.7 H POC ABG pO2 59.7 L ABG pO2 ABG HCO3 ABG O2 Saturation ABG Base Excess ABG Hemoglobin 8.0 L ABG Oxyhemoglobin 86.3 L ABG Potassium 4.7 H ABG Chloride 94.0 L ABG Glucose 208 H Oxyhemoglobin Sodium Potassium 5.3 H Chloride 94.6 L Carbon Dioxide 34 H BUN 33 H Creatinine Glucose 291 H POC Glucose Lactic Acid Calcium Phosphorus Magnesium AST ALT Alkaline Phosphatase Ammonia Troponin T Total Protein Albumin Triglycerides HDL Cholesterol Lipase Arterial Blood Glucose 208 H Arterial Blood Ionized Calcium Acetaminophen Crossmatch 03/22/21 03/22/21 03/23/21 21:33 23:58 04:42 WBC 14.3 H RBC 3.63 L Hgb 7.6 L Hct 27.0 L MCV 74 L MCH 21 L MCHC 28 L RDW 23.1 H Plt Count 567 H Seg Neuts % (Manual) Lymphocytes % (Manual) Monocytes % (Manual) Nucleated RBC % Seg Neutrophils # Man Lymphocytes # (Manual) Monocytes # (Manual) PT INR APTT D-Dimer ABG pH POC ABG pCO2 POC ABG pO2 ABG pO2 ABG HCO3 ABG O2 Saturation ABG Base Excess ABG Hemoglobin ABG Oxyhemoglobin ABG Potassium ABG Chloride ABG Glucose Oxyhemoglobin Sodium Potassium Chloride Carbon Dioxide BUN Creatinine Glucose POC Glucose 170 H 156 H Lactic Acid Calcium Phosphorus Magnesium AST ALT Alkaline Phosphatase Ammonia Troponin T Total Protein Albumin Triglycerides HDL Cholesterol Lipase Arterial Blood Glucose Arterial Blood Ionized Calcium Acetaminophen Crossmatch 03/23/21 03/23/21 03/23/21 04:42 04:50 22:25 WBC RBC Hgb Hct MCV MCH MCHC RDW Plt Count Seg Neuts % (Manual) Lymphocytes % (Manual) Monocytes % (Manual) Nucleated RBC % Seg Neutrophils # Man Lymphocytes # (Manual) Monocytes # (Manual) PT INR APTT D-Dimer ABG pH POC ABG pCO2 POC ABG pO2 ABG pO2 70.7 L ABG HCO3 41.7 H ABG O2 Saturation ABG Base Excess 15.2 H ABG Hemoglobin 5.6 L ABG Oxyhemoglobin ABG Potassium ABG Chloride ABG Glucose Oxyhemoglobin Sodium Potassium Chloride 94.6 L Carbon Dioxide 37 H BUN 27 H Creatinine Glucose 311 H POC Glucose 295 H Lactic Acid Calcium Phosphorus Magnesium AST ALT Alkaline Phosphatase Ammonia Troponin T Total Protein Albumin Triglycerides HDL Cholesterol Lipase Arterial Blood Glucose Arterial Blood Ionized Calcium Acetaminophen Crossmatch 03/23/21 03/24/21 03/24/21 23:13 05:13 07:59 WBC RBC Hgb Hct MCV MCH MCHC RDW Plt Count Seg Neuts % (Manual) Lymphocytes % (Manual) Monocytes % (Manual) Nucleated RBC % Seg Neutrophils # Man Lymphocytes # (Manual) Monocytes # (Manual) PT INR APTT D-Dimer ABG pH POC ABG pCO2 POC ABG pO2 ABG pO2 ABG HCO3 ABG O2 Saturation ABG Base Excess ABG Hemoglobin ABG Oxyhemoglobin ABG Potassium ABG Chloride ABG Glucose Oxyhemoglobin Sodium Potassium Chloride Carbon Dioxide BUN Creatinine Glucose POC Glucose 336 H 303 H 333 H Lactic Acid Calcium Phosphorus Magnesium AST ALT Alkaline Phosphatase Ammonia Troponin T Total Protein Albumin Triglycerides HDL Cholesterol Lipase Arterial Blood Glucose Arterial Blood Ionized Calcium Acetaminophen Crossmatch 03/24/21 03/24/21 03/24/21 08:03 08:03 08:57 WBC 12.7 H RBC 3.48 L Hgb 7.3 L Hct 26.3 L MCV 76 L MCH 21 L MCHC 28 L RDW 24.1 H Plt Count 499 H Seg Neuts % (Manual) Lymphocytes % (Manual) 1.0 L Monocytes % (Manual) 16.0 H Nucleated RBC % 11.0 H Seg Neutrophils # Man 8.1 H Lymphocytes # (Manual) 0.1 L Monocytes # (Manual) 2.1 H PT INR APTT D-Dimer ABG pH 7.477 H POC ABG pCO2 56.9 H POC ABG pO2 ABG pO2 ABG HCO3 ABG O2 Saturation ABG Base Excess ABG Hemoglobin 8.0 L ABG Oxyhemoglobin ABG Potassium ABG Chloride 93.0 L ABG Glucose 328 H Oxyhemoglobin Sodium Potassium Chloride 94.4 L Carbon Dioxide 38 H BUN 26 H Creatinine 0.5 L Glucose 348 H POC Glucose Lactic Acid Calcium Phosphorus Magnesium AST ALT Alkaline Phosphatase Ammonia Troponin T Total Protein Albumin Triglycerides HDL Cholesterol Lipase Arterial Blood Glucose 328 H Arterial Blood Ionized Calcium 4.5 L Acetaminophen Crossmatch 03/24/21 03/24/21 03/25/21 12:14 17:45 04:00 WBC 15.8 H RBC Hgb 7.5 L Hct 27.4 L MCV 75 L MCH 21 L MCHC 28 L RDW 24.0 H Plt Count 576 H Seg Neuts % (Manual) Lymphocytes % (Manual) Monocytes % (Manual) Nucleated RBC % Seg Neutrophils # Man Lymphocytes # (Manual) Monocytes # (Manual) PT INR APTT D-Dimer ABG pH POC ABG pCO2 POC ABG pO2 ABG pO2 ABG HCO3 ABG O2 Saturation ABG Base Excess ABG Hemoglobin ABG Oxyhemoglobin ABG Potassium ABG Chloride ABG Glucose Oxyhemoglobin Sodium Potassium Chloride Carbon Dioxide BUN Creatinine Glucose POC Glucose 315 H 324 H Lactic Acid Calcium Phosphorus Magnesium AST ALT Alkaline Phosphatase Ammonia Troponin T Total Protein Albumin Triglycerides HDL Cholesterol Lipase Arterial Blood Glucose Arterial Blood Ionized Calcium Acetaminophen Crossmatch 03/25/21 03/25/21 03/25/21 07:52 16:37 17:38 WBC RBC Hgb Hct MCV MCH MCHC RDW Plt Count Seg Neuts % (Manual) Lymphocytes % (Manual) Monocytes % (Manual) Nucleated RBC % Seg Neutrophils # Man Lymphocytes # (Manual) Monocytes # (Manual) PT INR APTT D-Dimer ABG pH POC ABG pCO2 POC ABG pO2 ABG pO2 ABG HCO3 ABG O2 Saturation ABG Base Excess ABG Hemoglobin ABG Oxyhemoglobin ABG Potassium ABG Chloride ABG Glucose Oxyhemoglobin Sodium Potassium Chloride 95.9 L Carbon Dioxide 33 H BUN 24 H Creatinine 0.4 L Glucose 289 H POC Glucose 321 H 295 H Lactic Acid Calcium Phosphorus Magnesium AST ALT Alkaline Phosphatase Ammonia Troponin T Total Protein Albumin Triglycerides HDL Cholesterol Lipase Arterial Blood Glucose Arterial Blood Ionized Calcium Acetaminophen Crossmatch 03/25/21 03/26/21 03/26/21 23:27 05:07 05:35 WBC 20.0 H RBC 3.37 L Hgb 7.0 L Hct 25.2 L MCV 75 L MCH 21 L MCHC 28 L RDW 24.0 H Plt Count 544 H Seg Neuts % (Manual) 72.0 H Lymphocytes % (Manual) 6.0 L Monocytes % (Manual) 8.0 H Nucleated RBC % Seg Neutrophils # Man 14.4 H Lymphocytes # (Manual) Monocytes # (Manual) 1.6 H PT INR APTT D-Dimer ABG pH POC ABG pCO2 POC ABG pO2 ABG pO2 ABG HCO3 ABG O2 Saturation ABG Base Excess ABG Hemoglobin ABG Oxyhemoglobin ABG Potassium ABG Chloride ABG Glucose Oxyhemoglobin Sodium Potassium Chloride Carbon Dioxide BUN Creatinine Glucose POC Glucose 231 H 200 H Lactic Acid Calcium Phosphorus Magnesium AST ALT Alkaline Phosphatase Ammonia Troponin T Total Protein Albumin Triglycerides HDL Cholesterol Lipase Arterial Blood Glucose Arterial Blood Ionized Calcium Acetaminophen Crossmatch 03/26/21 03/26/21 03/26/21 05:35 10:33 12:12 WBC RBC Hgb Hct MCV MCH MCHC RDW Plt Count Seg Neuts % (Manual) Lymphocytes % (Manual) Monocytes % (Manual) Nucleated RBC % Seg Neutrophils # Man Lymphocytes # (Manual) Monocytes # (Manual) PT INR APTT D-Dimer ABG pH POC ABG pCO2 POC ABG pO2 ABG pO2 ABG HCO3 ABG O2 Saturation ABG Base Excess ABG Hemoglobin ABG Oxyhemoglobin ABG Potassium ABG Chloride ABG Glucose Oxyhemoglobin Sodium Potassium 5.9 H D Chloride 91.9 L Carbon Dioxide 33 H BUN 20 H Creatinine 0.4 L Glucose 197 H POC Glucose 132 H 176 H Lactic Acid Calcium Phosphorus Magnesium AST ALT 169 H Alkaline Phosphatase 138 H Ammonia Troponin T Total Protein 5.5 L Albumin 3.2 L Triglycerides HDL Cholesterol Lipase Arterial Blood Glucose Arterial Blood Ionized Calcium Acetaminophen Crossmatch 03/26/21 03/26/21 03/26/21 16:50 18:06 22:19 WBC RBC Hgb Hct MCV MCH MCHC RDW Plt Count Seg Neuts % (Manual) Lymphocytes % (Manual) Monocytes % (Manual) Nucleated RBC % Seg Neutrophils # Man Lymphocytes # (Manual) Monocytes # (Manual) PT INR APTT D-Dimer ABG pH POC ABG pCO2 POC ABG pO2 ABG pO2 ABG HCO3 ABG O2 Saturation ABG Base Excess ABG Hemoglobin ABG Oxyhemoglobin ABG Potassium ABG Chloride ABG Glucose Oxyhemoglobin Sodium Potassium 5.2 H Chloride 91.7 L Carbon Dioxide 38 H BUN 19 H Creatinine 0.4 L Glucose 260 H POC Glucose 248 H 168 H Lactic Acid Calcium Phosphorus Magnesium AST ALT Alkaline Phosphatase Ammonia Troponin T Total Protein Albumin Triglycerides HDL Cholesterol Lipase Arterial Blood Glucose Arterial Blood Ionized Calcium Acetaminophen Crossmatch 03/27/21 03/27/21 03/27/21 01:02 01:32 04:15 WBC 21.4 H RBC 3.45 L Hgb 6.9 L Hct 26.2 L MCV 76 L MCH 20 L MCHC 27 L RDW 24.5 H Plt Count 500 H Seg Neuts % (Manual) Lymphocytes % (Manual) Monocytes % (Manual) Nucleated RBC % Seg Neutrophils # Man Lymphocytes # (Manual) Monocytes # (Manual) PT INR APTT D-Dimer ABG pH POC ABG pCO2 POC ABG pO2 ABG pO2 ABG HCO3 ABG O2 Saturation ABG Base Excess ABG Hemoglobin ABG Oxyhemoglobin ABG Potassium ABG Chloride ABG Glucose Oxyhemoglobin Sodium Potassium Chloride Carbon Dioxide BUN Creatinine Glucose POC Glucose 219 H 221 H Lactic Acid Calcium Phosphorus Magnesium AST ALT Alkaline Phosphatase Ammonia Troponin T Total Protein Albumin Triglycerides HDL Cholesterol Lipase Arterial Blood Glucose Arterial Blood Ionized Calcium Acetaminophen Crossmatch 03/27/21 03/27/21 03/27/21 04:15 06:37 11:21 WBC RBC Hgb Hct MCV MCH MCHC RDW Plt Count Seg Neuts % (Manual) Lymphocytes % (Manual) Monocytes % (Manual) Nucleated RBC % Seg Neutrophils # Man Lymphocytes # (Manual) Monocytes # (Manual) PT INR APTT D-Dimer ABG pH POC ABG pCO2 POC ABG pO2 ABG pO2 ABG HCO3 ABG O2 Saturation ABG Base Excess ABG Hemoglobin ABG Oxyhemoglobin ABG Potassium ABG Chloride ABG Glucose Oxyhemoglobin Sodium Potassium 5.3 H Chloride 94.4 L Carbon Dioxide 35 H BUN 20 H Creatinine 0.4 L Glucose 310 H POC Glucose 312 H 273 H Lactic Acid Calcium 8.3 L Phosphorus 4.60 H D Magnesium AST ALT Alkaline Phosphatase Ammonia Troponin T Total Protein Albumin Triglycerides HDL Cholesterol Lipase Arterial Blood Glucose Arterial Blood Ionized Calcium Acetaminophen Crossmatch 03/27/21 03/27/21 03/28/21 16:14 21:21 00:16 WBC RBC Hgb Hct MCV MCH MCHC RDW Plt Count Seg Neuts % (Manual) Lymphocytes % (Manual) Monocytes % (Manual) Nucleated RBC % Seg Neutrophils # Man Lymphocytes # (Manual) Monocytes # (Manual) PT INR APTT D-Dimer ABG pH POC ABG pCO2 POC ABG pO2 ABG pO2 ABG HCO3 ABG O2 Saturation ABG Base Excess ABG Hemoglobin ABG Oxyhemoglobin ABG Potassium ABG Chloride ABG Glucose Oxyhemoglobin Sodium Potassium Chloride Carbon Dioxide BUN Creatinine Glucose POC Glucose 241 H 179 H 160 H Lactic Acid Calcium Phosphorus Magnesium AST ALT Alkaline Phosphatase Ammonia Troponin T Total Protein Albumin Triglycerides HDL Cholesterol Lipase Arterial Blood Glucose Arterial Blood Ionized Calcium Acetaminophen Crossmatch 03/28/21 03/28/21 03/28/21 04:00 04:00 05:41 WBC 27.1 H RBC 3.46 L Hgb 7.1 L Hct 26.1 L MCV 76 L MCH 20 L MCHC 27 L RDW 24.0 H Plt Count 541 H Seg Neuts % (Manual) Lymphocytes % (Manual) Monocytes % (Manual) Nucleated RBC % Seg Neutrophils # Man Lymphocytes # (Manual) Monocytes # (Manual) PT INR APTT D-Dimer ABG pH POC ABG pCO2 POC ABG pO2 ABG pO2 ABG HCO3 ABG O2 Saturation ABG Base Excess ABG Hemoglobin ABG Oxyhemoglobin ABG Potassium ABG Chloride ABG Glucose Oxyhemoglobin Sodium Potassium Chloride 95.7 L Carbon Dioxide 36 H BUN 23 H Creatinine 0.4 L Glucose 295 H POC Glucose 279 H Lactic Acid Calcium Phosphorus Magnesium AST ALT Alkaline Phosphatase Ammonia Troponin T Total Protein Albumin Triglycerides HDL Cholesterol Lipase Arterial Blood Glucose Arterial Blood Ionized Calcium Acetaminophen Crossmatch 03/28/21 03/28/21 03/28/21 11:50 16:45 23:15 WBC RBC Hgb Hct MCV MCH MCHC RDW Plt Count Seg Neuts % (Manual) Lymphocytes % (Manual) Monocytes % (Manual) Nucleated RBC % Seg Neutrophils # Man Lymphocytes # (Manual) Monocytes # (Manual) PT INR APTT D-Dimer ABG pH POC ABG pCO2 POC ABG pO2 ABG pO2 ABG HCO3 ABG O2 Saturation ABG Base Excess ABG Hemoglobin ABG Oxyhemoglobin ABG Potassium ABG Chloride ABG Glucose Oxyhemoglobin Sodium Potassium Chloride Carbon Dioxide BUN Creatinine Glucose POC Glucose 233 H 240 H 189 H Lactic Acid Calcium Phosphorus Magnesium AST ALT Alkaline Phosphatase Ammonia Troponin T Total Protein Albumin Triglycerides HDL Cholesterol Lipase Arterial Blood Glucose Arterial Blood Ionized Calcium Acetaminophen Crossmatch 03/29/21 03/29/21 03/29/21 04:35 04:35 05:05 WBC 29.6 H RBC 3.18 L Hgb 6.7 L Hct 24.2 L MCV 76 L MCH 21 L MCHC 28 L RDW 24.0 H Plt Count 678 H Seg Neuts % (Manual) Lymphocytes % (Manual) Monocytes % (Manual) Nucleated RBC % Seg Neutrophils # Man Lymphocytes # (Manual) Monocytes # (Manual) PT INR APTT D-Dimer ABG pH POC ABG pCO2 POC ABG pO2 ABG pO2 ABG HCO3 ABG O2 Saturation ABG Base Excess ABG Hemoglobin ABG Oxyhemoglobin ABG Potassium ABG Chloride ABG Glucose Oxyhemoglobin Sodium Potassium Chloride 95.4 L Carbon Dioxide 37 H BUN 22 H Creatinine 0.4 L Glucose 194 H POC Glucose 195 H Lactic Acid Calcium Phosphorus Magnesium AST ALT Alkaline Phosphatase Ammonia Troponin T Total Protein Albumin Triglycerides HDL Cholesterol Lipase Arterial Blood Glucose Arterial Blood Ionized Calcium Acetaminophen Crossmatch 03/29/21 03/29/21 03/29/21 09:24 10:58 17:14 WBC RBC Hgb Hct MCV MCH MCHC RDW Plt Count Seg Neuts % (Manual) Lymphocytes % (Manual) Monocytes % (Manual) Nucleated RBC % Seg Neutrophils # Man Lymphocytes # (Manual) Monocytes # (Manual) PT INR APTT D-Dimer ABG pH POC ABG pCO2 POC ABG pO2 ABG pO2 ABG HCO3 ABG O2 Saturation ABG Base Excess ABG Hemoglobin ABG Oxyhemoglobin ABG Potassium ABG Chloride ABG Glucose Oxyhemoglobin Sodium Potassium Chloride Carbon Dioxide BUN Creatinine Glucose POC Glucose 106 H 117 H Lactic Acid Calcium Phosphorus Magnesium AST ALT Alkaline Phosphatase Ammonia Troponin T Total Protein Albumin Triglycerides HDL Cholesterol Lipase Arterial Blood Glucose Arterial Blood Ionized Calcium Acetaminophen Crossmatch See Detail 03/29/21 03/29/21 03/30/21 19:32 23:36 01:49 WBC 25.1 H RBC Hgb 9.3 L Hct MCV 77 L MCH 23 L MCHC RDW 22.7 H Plt Count 599 H Seg Neuts % (Manual) Lymphocytes % (Manual) Monocytes % (Manual) Nucleated RBC % Seg Neutrophils # Man Lymphocytes # (Manual) Monocytes # (Manual) PT INR APTT D-Dimer ABG pH POC ABG pCO2 POC ABG pO2 ABG pO2 ABG HCO3 ABG O2 Saturation ABG Base Excess ABG Hemoglobin ABG Oxyhemoglobin ABG Potassium ABG Chloride ABG Glucose Oxyhemoglobin Sodium Potassium Chloride Carbon Dioxide BUN Creatinine Glucose POC Glucose 57 L 55 L Lactic Acid Calcium Phosphorus Magnesium AST ALT Alkaline Phosphatase Ammonia Troponin T Total Protein Albumin Triglycerides HDL Cholesterol Lipase Arterial Blood Glucose Arterial Blood Ionized Calcium Acetaminophen Crossmatch 03/30/21 03/30/21 03/30/21 04:00 15:52 18:07 WBC RBC Hgb Hct MCV MCH MCHC RDW Plt Count Seg Neuts % (Manual) Lymphocytes % (Manual) Monocytes % (Manual) Nucleated RBC % Seg Neutrophils # Man Lymphocytes # (Manual) Monocytes # (Manual) PT INR APTT D-Dimer ABG pH POC ABG pCO2 POC ABG pO2 ABG pO2 ABG HCO3 ABG O2 Saturation ABG Base Excess ABG Hemoglobin ABG Oxyhemoglobin ABG Potassium ABG Chloride ABG Glucose Oxyhemoglobin Sodium Potassium Chloride 93.4 L Carbon Dioxide 34 H BUN 18 H Creatinine 0.3 L Glucose 114 H POC Glucose 112 H 130 H Lactic Acid Calcium Phosphorus 4.70 H Magnesium AST ALT Alkaline Phosphatase Ammonia Troponin T Total Protein Albumin Triglycerides HDL Cholesterol Lipase Arterial Blood Glucose Arterial Blood Ionized Calcium Acetaminophen Crossmatch 03/30/21 03/31/21 03/31/21 23:26 04:41 04:41 WBC 30.8 H RBC Hgb 9.3 L Hct MCV MCH 23 L MCHC 28 L RDW 22.3 H Plt Count 642 H Seg Neuts % (Manual) Lymphocytes % (Manual) Monocytes % (Manual) Nucleated RBC % Seg Neutrophils # Man Lymphocytes # (Manual) Monocytes # (Manual) PT INR APTT D-Dimer ABG pH POC ABG pCO2 POC ABG pO2 ABG pO2 ABG HCO3 ABG O2 Saturation ABG Base Excess ABG Hemoglobin ABG Oxyhemoglobin ABG Potassium ABG Chloride ABG Glucose Oxyhemoglobin Sodium Potassium Chloride 96.3 L Carbon Dioxide 34 H BUN Creatinine 0.3 L Glucose POC Glucose 124 H Lactic Acid Calcium Phosphorus Magnesium AST ALT Alkaline Phosphatase Ammonia Troponin T Total Protein Albumin Triglycerides HDL Cholesterol Lipase Arterial Blood Glucose Arterial Blood Ionized Calcium Acetaminophen Crossmatch 03/31/21 04/01/21 04/01/21 17:45 00:17 04:27 WBC 20.2 H RBC Hgb 9.1 L Hct MCV MCH 23 L MCHC 28 L RDW 22.3 H Plt Count 454 H Seg Neuts % (Manual) Lymphocytes % (Manual) Monocytes % (Manual) Nucleated RBC % Seg Neutrophils # Man Lymphocytes # (Manual) Monocytes # (Manual) PT INR APTT D-Dimer ABG pH POC ABG pCO2 POC ABG pO2 ABG pO2 ABG HCO3 ABG O2 Saturation ABG Base Excess ABG Hemoglobin ABG Oxyhemoglobin ABG Potassium ABG Chloride ABG Glucose Oxyhemoglobin Sodium Potassium Chloride Carbon Dioxide BUN Creatinine Glucose POC Glucose 130 H 108 H Lactic Acid Calcium Phosphorus Magnesium AST ALT Alkaline Phosphatase Ammonia Troponin T Total Protein Albumin Triglycerides HDL Cholesterol Lipase Arterial Blood Glucose Arterial Blood Ionized Calcium Acetaminophen Crossmatch 04/01/21 04/01/21 04/01/21 04:27 11:56 16:19 WBC RBC Hgb Hct MCV MCH MCHC RDW Plt Count Seg Neuts % (Manual) Lymphocytes % (Manual) Monocytes % (Manual) Nucleated RBC % Seg Neutrophils # Man Lymphocytes # (Manual) Monocytes # (Manual) PT INR APTT D-Dimer ABG pH POC ABG pCO2 POC ABG pO2 ABG pO2 ABG HCO3 ABG O2 Saturation ABG Base Excess ABG Hemoglobin ABG Oxyhemoglobin ABG Potassium ABG Chloride ABG Glucose Oxyhemoglobin Sodium Potassium Chloride Carbon Dioxide 31 H BUN Creatinine 0.4 L Glucose POC Glucose 112 H 172 H Lactic Acid Calcium Phosphorus Magnesium AST ALT Alkaline Phosphatase Ammonia Troponin T Total Protein Albumin Triglycerides HDL Cholesterol Lipase Arterial Blood Glucose Arterial Blood Ionized Calcium Acetaminophen Crossmatch 04/01/21 04/02/21 04/02/21 23:19 04:30 04:30 WBC 17.3 H RBC Hgb 8.7 L Hct 30.1 L MCV MCH 23 L MCHC 29 L RDW 22.4 H Plt Count 521 H Seg Neuts % (Manual) Lymphocytes % (Manual) Monocytes % (Manual) Nucleated RBC % Seg Neutrophils # Man Lymphocytes # (Manual) Monocytes # (Manual) PT INR APTT D-Dimer ABG pH POC ABG pCO2 POC ABG pO2 ABG pO2 ABG HCO3 ABG O2 Saturation ABG Base Excess ABG Hemoglobin ABG Oxyhemoglobin ABG Potassium ABG Chloride ABG Glucose Oxyhemoglobin Sodium Potassium Chloride Carbon Dioxide 33 H BUN Creatinine 0.4 L Glucose POC Glucose 112 H Lactic Acid Calcium Phosphorus Magnesium AST ALT Alkaline Phosphatase Ammonia Troponin T Total Protein Albumin Triglycerides HDL Cholesterol Lipase Arterial Blood Glucose Arterial Blood Ionized Calcium Acetaminophen Crossmatch 04/02/21 04/03/21 04/03/21 23:32 05:14 15:30 WBC 14.2 H RBC Hgb 9.6 L Hct MCV MCH 23 L MCHC 29 L RDW 23.4 H Plt Count 662 H Seg Neuts % (Manual) Lymphocytes % (Manual) Monocytes % (Manual) Nucleated RBC % Seg Neutrophils # Man Lymphocytes # (Manual) Monocytes # (Manual) PT INR APTT D-Dimer ABG pH POC ABG pCO2 POC ABG pO2 ABG pO2 ABG HCO3 ABG O2 Saturation ABG Base Excess ABG Hemoglobin ABG Oxyhemoglobin ABG Potassium ABG Chloride ABG Glucose Oxyhemoglobin Sodium Potassium Chloride Carbon Dioxide BUN Creatinine Glucose POC Glucose 112 H 118 H Lactic Acid Calcium Phosphorus Magnesium AST ALT Alkaline Phosphatase Ammonia Troponin T Total Protein Albumin Triglycerides HDL Cholesterol Lipase Arterial Blood Glucose Arterial Blood Ionized Calcium Acetaminophen Crossmatch 04/03/21 04/03/21 04/03/21 15:30 17:29 23:52 WBC RBC Hgb Hct MCV MCH MCHC RDW Plt Count Seg Neuts % (Manual) Lymphocytes % (Manual) Monocytes % (Manual) Nucleated RBC % Seg Neutrophils # Man Lymphocytes # (Manual) Monocytes # (Manual) PT INR APTT D-Dimer ABG pH POC ABG pCO2 POC ABG pO2 ABG pO2 ABG HCO3 ABG O2 Saturation ABG Base Excess ABG Hemoglobin ABG Oxyhemoglobin ABG Potassium ABG Chloride ABG Glucose Oxyhemoglobin Sodium Potassium Chloride Carbon Dioxide 35 H BUN Creatinine 0.4 L Glucose 163 H POC Glucose 157 H 66 L Lactic Acid Calcium Phosphorus Magnesium AST ALT Alkaline Phosphatase Ammonia Troponin T Total Protein Albumin Triglycerides HDL Cholesterol Lipase Arterial Blood Glucose Arterial Blood Ionized Calcium Acetaminophen Crossmatch 04/04/21 04/04/21 04/04/21 04:21 04:21 05:35 WBC 14.4 H RBC Hgb 9.9 L Hct MCV MCH 24 L MCHC RDW 23.0 H Plt Count 572 H Seg Neuts % (Manual) Lymphocytes % (Manual) Monocytes % (Manual) Nucleated RBC % Seg Neutrophils # Man Lymphocytes # (Manual) Monocytes # (Manual) PT INR APTT D-Dimer ABG pH POC ABG pCO2 POC ABG pO2 ABG pO2 ABG HCO3 ABG O2 Saturation ABG Base Excess ABG Hemoglobin ABG Oxyhemoglobin ABG Potassium ABG Chloride ABG Glucose Oxyhemoglobin Sodium 146 H Potassium Chloride 96.8 L Carbon Dioxide 35 H BUN Creatinine 0.4 L Glucose 111 H POC Glucose 124 H Lactic Acid Calcium Phosphorus Magnesium AST ALT Alkaline Phosphatase Ammonia Troponin T Total Protein Albumin Triglycerides HDL Cholesterol Lipase Arterial Blood Glucose Arterial Blood Ionized Calcium Acetaminophen Crossmatch 04/04/21 04/04/21 04/04/21 07:34 10:59 16:22 WBC RBC Hgb Hct MCV MCH MCHC RDW Plt Count Seg Neuts % (Manual) Lymphocytes % (Manual) Monocytes % (Manual) Nucleated RBC % Seg Neutrophils # Man Lymphocytes # (Manual) Monocytes # (Manual) PT INR APTT D-Dimer ABG pH POC ABG pCO2 POC ABG pO2 ABG pO2 ABG HCO3 ABG O2 Saturation ABG Base Excess ABG Hemoglobin ABG Oxyhemoglobin ABG Potassium ABG Chloride ABG Glucose Oxyhemoglobin Sodium Potassium Chloride Carbon Dioxide BUN Creatinine Glucose POC Glucose 116 H 152 H 191 H Lactic Acid Calcium Phosphorus Magnesium AST ALT Alkaline Phosphatase Ammonia Troponin T Total Protein Albumin Triglycerides HDL Cholesterol Lipase Arterial Blood Glucose Arterial Blood Ionized Calcium Acetaminophen Crossmatch 04/05/21 04/05/21 04/05/21 05:48 11:31 17:45 WBC RBC Hgb Hct MCV MCH MCHC RDW Plt Count Seg Neuts % (Manual) Lymphocytes % (Manual) Monocytes % (Manual) Nucleated RBC % Seg Neutrophils # Man Lymphocytes # (Manual) Monocytes # (Manual) PT INR APTT D-Dimer ABG pH POC ABG pCO2 POC ABG pO2 ABG pO2 ABG HCO3 ABG O2 Saturation ABG Base Excess ABG Hemoglobin ABG Oxyhemoglobin ABG Potassium ABG Chloride ABG Glucose Oxyhemoglobin Sodium Potassium Chloride Carbon Dioxide BUN Creatinine Glucose POC Glucose 133 H 167 H 181 H Lactic Acid Calcium Phosphorus Magnesium AST ALT Alkaline Phosphatase Ammonia Troponin T Total Protein Albumin Triglycerides HDL Cholesterol Lipase Arterial Blood Glucose Arterial Blood Ionized Calcium Acetaminophen Crossmatch 04/05/21 04/06/21 04/06/21 22:12 06:39 11:35 WBC RBC Hgb Hct MCV MCH MCHC RDW Plt Count Seg Neuts % (Manual) Lymphocytes % (Manual) Monocytes % (Manual) Nucleated RBC % Seg Neutrophils # Man Lymphocytes # (Manual) Monocytes # (Manual) PT INR APTT D-Dimer ABG pH POC ABG pCO2 POC ABG pO2 ABG pO2 ABG HCO3 ABG O2 Saturation ABG Base Excess ABG Hemoglobin ABG Oxyhemoglobin ABG Potassium ABG Chloride ABG Glucose Oxyhemoglobin Sodium Potassium Chloride Carbon Dioxide BUN Creatinine Glucose POC Glucose 129 H 151 H 165 H Lactic Acid Calcium Phosphorus Magnesium AST ALT Alkaline Phosphatase Ammonia Troponin T Total Protein Albumin Triglycerides HDL Cholesterol Lipase Arterial Blood Glucose Arterial Blood Ionized Calcium Acetaminophen Crossmatch 04/06/21 04/06/21 04/07/21 15:08 18:02 00:42 WBC RBC Hgb Hct MCV MCH MCHC RDW Plt Count Seg Neuts % (Manual) Lymphocytes % (Manual) Monocytes % (Manual) Nucleated RBC % Seg Neutrophils # Man Lymphocytes # (Manual) Monocytes # (Manual) PT INR APTT D-Dimer ABG pH POC ABG pCO2 POC ABG pO2 ABG pO2 ABG HCO3 ABG O2 Saturation ABG Base Excess ABG Hemoglobin ABG Oxyhemoglobin ABG Potassium ABG Chloride ABG Glucose Oxyhemoglobin Sodium Potassium Chloride Carbon Dioxide BUN Creatinine Glucose POC Glucose 202 H 140 H 150 H Lactic Acid Calcium Phosphorus Magnesium AST ALT Alkaline Phosphatase Ammonia Troponin T Total Protein Albumin Triglycerides HDL Cholesterol Lipase Arterial Blood Glucose Arterial Blood Ionized Calcium Acetaminophen Crossmatch 04/07/21 04/07/21 04/07/21 05:43 11:29 17:18 WBC RBC Hgb Hct MCV MCH MCHC RDW Plt Count Seg Neuts % (Manual) Lymphocytes % (Manual) Monocytes % (Manual) Nucleated RBC % Seg Neutrophils # Man Lymphocytes # (Manual) Monocytes # (Manual) PT INR APTT D-Dimer ABG pH POC ABG pCO2 POC ABG pO2 ABG pO2 ABG HCO3 ABG O2 Saturation ABG Base Excess ABG Hemoglobin ABG Oxyhemoglobin ABG Potassium ABG Chloride ABG Glucose Oxyhemoglobin Sodium Potassium Chloride Carbon Dioxide BUN Creatinine Glucose POC Glucose 168 H 150 H 148 H Lactic Acid Calcium Phosphorus Magnesium AST ALT Alkaline Phosphatase Ammonia Troponin T Total Protein Albumin Triglycerides HDL Cholesterol Lipase Arterial Blood Glucose Arterial Blood Ionized Calcium Acetaminophen Crossmatch 04/07/21 04/08/21 04/08/21 23:02 04:52 11:54 WBC RBC Hgb Hct MCV MCH MCHC RDW Plt Count Seg Neuts % (Manual) Lymphocytes % (Manual) Monocytes % (Manual) Nucleated RBC % Seg Neutrophils # Man Lymphocytes # (Manual) Monocytes # (Manual) PT INR APTT D-Dimer ABG pH POC ABG pCO2 POC ABG pO2 ABG pO2 ABG HCO3 ABG O2 Saturation ABG Base Excess ABG Hemoglobin ABG Oxyhemoglobin ABG Potassium ABG Chloride ABG Glucose Oxyhemoglobin Sodium Potassium Chloride Carbon Dioxide BUN Creatinine Glucose POC Glucose 110 H 137 H 125 H Lactic Acid Calcium Phosphorus Magnesium AST ALT Alkaline Phosphatase Ammonia Troponin T Total Protein Albumin Triglycerides HDL Cholesterol Lipase Arterial Blood Glucose Arterial Blood Ionized Calcium Acetaminophen Crossmatch 04/08/21 04/09/21 04/09/21 17:03 06:02 11:34 WBC RBC Hgb Hct MCV MCH MCHC RDW Plt Count Seg Neuts % (Manual) Lymphocytes % (Manual) Monocytes % (Manual) Nucleated RBC % Seg Neutrophils # Man Lymphocytes # (Manual) Monocytes # (Manual) PT INR APTT D-Dimer ABG pH POC ABG pCO2 POC ABG pO2 ABG pO2 ABG HCO3 ABG O2 Saturation ABG Base Excess ABG Hemoglobin ABG Oxyhemoglobin ABG Potassium ABG Chloride ABG Glucose Oxyhemoglobin Sodium Potassium Chloride Carbon Dioxide BUN Creatinine Glucose POC Glucose 159 H 109 H 147 H Lactic Acid Calcium Phosphorus Magnesium AST ALT Alkaline Phosphatase Ammonia Troponin T Total Protein Albumin Triglycerides HDL Cholesterol Lipase Arterial Blood Glucose Arterial Blood Ionized Calcium Acetaminophen Crossmatch 04/09/21 04/10/21 04/10/21 16:10 00:12 05:05 WBC 15.9 H RBC Hgb 9.6 L Hct MCV MCH 24 L MCHC RDW 23.7 H Plt Count Seg Neuts % (Manual) Lymphocytes % (Manual) Monocytes % (Manual) Nucleated RBC % Seg Neutrophils # Man Lymphocytes # (Manual) Monocytes # (Manual) PT INR APTT D-Dimer ABG pH POC ABG pCO2 POC ABG pO2 ABG pO2 ABG HCO3 ABG O2 Saturation ABG Base Excess ABG Hemoglobin ABG Oxyhemoglobin ABG Potassium ABG Chloride ABG Glucose Oxyhemoglobin Sodium Potassium Chloride Carbon Dioxide BUN Creatinine Glucose POC Glucose 183 H 112 H Lactic Acid Calcium Phosphorus Magnesium AST ALT Alkaline Phosphatase Ammonia Troponin T Total Protein Albumin Triglycerides HDL Cholesterol Lipase Arterial Blood Glucose Arterial Blood Ionized Calcium Acetaminophen Crossmatch 04/10/21 04/10/21 04/10/21 05:05 05:05 05:54 WBC RBC Hgb Hct MCV MCH MCHC RDW Plt Count Seg Neuts % (Manual) Lymphocytes % (Manual) Monocytes % (Manual) Nucleated RBC % Seg Neutrophils # Man Lymphocytes # (Manual) Monocytes # (Manual) PT 11.2 L INR 0.73 L APTT D-Dimer ABG pH POC ABG pCO2 POC ABG pO2 ABG pO2 ABG HCO3 ABG O2 Saturation ABG Base Excess ABG Hemoglobin ABG Oxyhemoglobin ABG Potassium ABG Chloride ABG Glucose Oxyhemoglobin Sodium Potassium Chloride 90.6 L Carbon Dioxide 35 H BUN Creatinine 0.3 L Glucose 110 H POC Glucose 112 H Lactic Acid Calcium Phosphorus Magnesium AST ALT Alkaline Phosphatase Ammonia Troponin T Total Protein Albumin 3.2 L Triglycerides HDL Cholesterol Lipase Arterial Blood Glucose Arterial Blood Ionized Calcium Acetaminophen Crossmatch 04/10/21 04/10/21 04/10/21 12:09 16:22 23:17 WBC RBC Hgb Hct MCV MCH MCHC RDW Plt Count Seg Neuts % (Manual) Lymphocytes % (Manual) Monocytes % (Manual) Nucleated RBC % Seg Neutrophils # Man Lymphocytes # (Manual) Monocytes # (Manual) PT INR APTT D-Dimer ABG pH POC ABG pCO2 POC ABG pO2 ABG pO2 ABG HCO3 ABG O2 Saturation ABG Base Excess ABG Hemoglobin ABG Oxyhemoglobin ABG Potassium ABG Chloride ABG Glucose Oxyhemoglobin Sodium Potassium Chloride Carbon Dioxide BUN Creatinine Glucose POC Glucose 177 H 197 H 131 H Lactic Acid Calcium Phosphorus Magnesium AST ALT Alkaline Phosphatase Ammonia Troponin T Total Protein Albumin Triglycerides HDL Cholesterol Lipase Arterial Blood Glucose Arterial Blood Ionized Calcium Acetaminophen Crossmatch 04/11/21 04/11/21 06:25 11:44 WBC RBC Hgb Hct MCV MCH MCHC RDW Plt Count Seg Neuts % (Manual) Lymphocytes % (Manual) Monocytes % (Manual) Nucleated RBC % Seg Neutrophils # Man Lymphocytes # (Manual) Monocytes # (Manual) PT INR APTT D-Dimer ABG pH POC ABG pCO2 POC ABG pO2 ABG pO2 ABG HCO3 ABG O2 Saturation ABG Base Excess ABG Hemoglobin ABG Oxyhemoglobin ABG Potassium ABG Chloride ABG Glucose Oxyhemoglobin Sodium Potassium Chloride Carbon Dioxide BUN Creatinine Glucose POC Glucose 111 H 114 H Lactic Acid Calcium Phosphorus Magnesium AST ALT Alkaline Phosphatase Ammonia Troponin T Total Protein Albumin Triglycerides HDL Cholesterol Lipase Arterial Blood Glucose Arterial Blood Ionized Calcium Acetaminophen Crossmatch
--- NOTE | 2021-04-11 17:41 | Post Anesthesia Evaluation ---
- Post Anesthesia Evaluation Patient Participated: Yes Airway Patent: Yes Stable Respiratory Function: Yes Nausea/Vomiting: No Temp > 96.8F: Yes Pain Manageable: Yes Adequeate Hydration: Yes Anesthesia Complications: No Block Receding Appropriately: Not Applicable Patient on Ventilator: No (Bipap)
[2021-04-11] MEDS: LORazepam 2 MG/ML VIAL IV PRN (20:21)
[2021-04-11] MEDS: MORPHINE 2 MG/1 ML INJ IV PRN ×2 (20:21→23:53)
[2021-04-11] MEDS ORDERED: D5W/0.9% NACL 1,000 ML IV SCH (23:00)
[2021-04-12] MEDS: MORPHINE 2 MG/1 ML INJ IV PRN (03:56)
[2021-04-12] MEDS: dilTIAZem 60 MG TAB FEEDTUBE SCH ×2 (05:45→09:34)
[2021-04-12] MEDS: INSULIN LISPRO 100 UNIT/ML SUB-Q SCH ×3 (05:58→13:00)
[2021-04-12] MEDS: HEPARIN 5,000 UNIT/1 ML VIAL SUB-Q SCH (06:19)
[2021-04-12] MEDS: FAMOTIDINE 20 MG TAB FEEDTUBE SCH ×2 (08:17→09:34)
[2021-04-12] MEDS: METOPROLOL TARTRATE 25 MG TAB PO SCH ×2 (08:17→09:36)
[2021-04-12] MEDS: SENNOSIDES/DOCUSATE SODIUM 8.6/50 MG TAB FEEDTUBE SCH ×2 (08:17→09:37)
--- NOTE | 2021-04-12 09:27 | Progress Note ---
Assessment and Plan Resp : Acute on chronic respiratory failure, h/o COPD and PAGE -CCM consulted, appreciate recommendations -CTA chest shows no CT evidence of pulmonary embolism, small right and trace left pleural effusion, upper lobe predominant emphysema -Intubated on 03/17 with 7.00 ETT at 20 at the lips and extubated 03/22 but reintubated shortly after; Self-extubated on 03/29 -weaned to BiPAP q hs, Optiflow in AM -VAP bundle -SPO2 monitoring -Methylprednisone weaning-> PO will be slow wean -nebs per [facility] GI: Transaminitis (resolving), h/o chronic constipation -NTR consulted, appreciate recommendations -RUQ US shows right hydroureteronephrosis and possible gallbladder sludge or gallstones -Renal ultrasound shows mild right-sided hydronephrosis with parenchymal thinning and trace perinephric fluid. -need to follow up outpatient -PPI -BR: senakot S and colace, prn mom -BM 04/01 -24 hours +1632 mL -Failed bedside swallow eval -NGT reinserted and TF changed to cyclic; ST recommends PEG Neuro: Hepatic/metabolic encephalopathy, h/o severe anxiety, depression -Admit ammonia 116, 03/09 ammonia 26 -Precedex gtt -xanax, ativan, haldol and morphine prn -Buspar increased dose today on hopes to wean of precedex; home cymbalta on hold (cannot crush) -Psych consulted, started on effexor 25 mg po daily - on buspar -Avoid delirium -Maintain sleep-wake cycle -SAT when appropriate -CT head on admit with no acute findings -Repeat CT head d/t AMS-> no acute changes Cardio: Hypertensive emergency (resolved), s/p A. fib with RVR and SVT, h/o HTN, HLD -s/p X2 doses of adenosine in the ED -Cardiology consulted, appreciate recommendations -PO metoprolol BID -Resume home statin -Blood pressure monitoring per protocol -Echocardiogram 10/2020 showed EF of 50 to 55%, mild diastolic dysfunction, trace to mild tricuspid regurgitation, mild pulmonary hypertension, RVSP 45 mmHg : Mild right hydroureteronephrosis -Trend BMP -FWF with TF -stop D51/2 NS when TF resumed -Strict I & Os -Wallis -Renal ultrasound shows mild right-sided hydronephrosis with parenchymal thinning and trace perinephric fluid. Endo: h/o DM -Avoid hypoglycemia -SSI -Accucheck q 6hrs -Lantus -titrate as needed Heme: Anemia, Leukocytosis, h/o Microcytic anemia -Trend CBC -Transfuse for hbg <7 -s/p 2 unit PRBCs -SCDs to BLE while in bed -Lovenox subq ID: Gram positive cocci in tracheal aspirate -02/25 tracheal aspirate with few gram-positive cocci -s/p Levaquin (03/18-) -Trend WBC and fever curve -Repeat blood cultures and sputum culture NGTD -Trend WBC and fever curve Disposition: Follow-up PEG procedure, GI recommendations If stable and cleared May DC Home with hospice Brief history and daily Hospital course This is a 60-year-old female with COPD with oxygen dependence currently with palliative care, DM, former nicotine abuse, severe anxiety, GERD, HLD, HTN and PAGE presented to emergency department on 03/17 via EMS with complaints of shortness of breath. On arrival of EMS patient was found to be in SVT with a heart rate of about 200 and blood pressure to be quite elevated with systolic in 200s. She was given 6 mg of adenosine without significant changes subsequently given 12 mg of adenosine with improvement of her heart rate. Upon arrival to the emergency department patient was found to be in atrial fibrillation with RVR and dyspneic. Work-up in the emergency department revealed leukocytosis, lactic acidosis, transaminitis, hypoalbuminemia and a troponin leak. CXR, CT a chest and CT head were unremarkable. Patient was admitted to the hospitalist service with consults to [facility] and cardiology for further work-up of acute on chronic respiratory failure, SVT and hypertensive urgency. Hospital Course to date: 03/18/2021: Patient is intubated and on vent support, Patient is in sinus tachycardia 03/19: COVID-19 PCR negative, remains on ventilatory support, Versed drip changed to propofol. No acute events reported overnight. Tracheal aspirate with few gram-positive Cocci. This afternoon, patient went in to the 150s, giving 500 mL NS bolus and fentanyl push to see if it pain related. If persists then will order prn Ativan per Dr. Gage recommendation. 03/20: Restarted on home metoprolol and abdominal ultrasound showed right hydronephrosis. Abd US shows right hydroureteronephrosis and will obtain a dedicated renal US. She seems to more comfortable on propofol and fentanyl 03/21: Patient's FiO2 had to be decreased overnight due to hypoxia and tachycardia. Hyperkalemia noted and given Kayexalate. 1 unit PRBC for hemoglobin 6.8. [facility] plans to extubate tomorrow. Increase in Lantus. 03/22: Transfuse one unit prbc, failed SBT in the AM d/t hypertension. [facility] extubated the patient but she was reintubated within [address] head ordered and pending read. Given kionex x2 for hyperkalemia 03/23: This morning patient was only on Precedex drip and overnight she had ag itation, hypertension and tachycardia. RN instructed to place fentanyl drip. Increase in Lantus for better glucose control. Will remove Wallis today. 03/24/2021: no acute events reported overnight. Patient remains intubated and is currently on fentanyl and Precedex. Increase in Lantus due to hyperglycemia. 03/25: no acute events overnight. increase in lantus and decreased steroids today. 04/02: Bipap q hs and optiflow in the AM, remains on precedex. Psych consulted today. 04/03: Patient failed swallow evaluation today and ST recommended PEG tube placement. NG tube was replaced yesterday and tube feeds changed to cyclic feedings today given she was BiPAP overnight. Psych consulted. Likely DC tomorrow or . 04/04: Patient has long standing anxiety history. Needs medication optimization. May uptitrate buspar. PCCM stated that patient did not tolerate klonopin as an OP. Currently working to taper steroids. No GI consult at this time for PEG as PCCM d/w . Will continue to work with CM for hospice placement. 04/05: Klonopin unfortunately not effective in this patient. Awaiting psych input/eval for today. Will continue to work towards hospice placement with CM. 04/06: On hi flow 35/50. comfortable on my encounter. Effexor added by psychiatry. Will work towards hospice placement with CM. 04/07: Placed on bipap, has been on since this am. comfortable on my encounter. Pending hospice placement by CM. 04/08: Remains on bipap. Will try to aggressively wean if possible. Will work with Cm friday for hospice placement. 04/09: Discharge to hospice. Arrangements made by CM 04/10; discharge is held as patient has dysphagia, GI evaluated the patient Scheduled for PEG placement tomorrow 04/11; patient remains on BiPAP, patient waiting on PEG tube placement. If tolerated the procedure and tolerates PEG tube feeding patient will be discharged with hospice. Disposition; follow up with procedure, if patient tolerates PEG feeds, and stable For discharge to hospice Subjective Date of service: 04/11/21 Principal diagnosis: Neurogenic Dysphagia Interval history: Patient Seen and examined at the bedside Patient's chart and medications reviewed Evaluated by GI, scheduled for PEG placement today Patient remains on BiPAP, Objective - Exam Narrative Exam: General appearance: Present: mild distress, other (On BiPAP) - EENT Eyes: Present: PERRL, EOM intact - Neck Neck: Present: supple, normal ROM - Respiratory Respiratory effort: normal Respiratory: bilateral: diminished, rhonchi, negative: rales, wheezing - Cardiovascular Rhythm: regular Heart Sounds: Present: S1 & S2 - Extremities Extremities: no ischemia, No edema - Abdominal General gastrointestinal: soft, non-tender, non-distended, normal bowel sounds - Integumentary Integumentary: Present: clear, warm - Psychiatric Psychiatric: other (Noncommunicative) - Neurologic Neurologic: other - Constitutional Vitals: Vital Signs - 12hr 04/11/21 04/12/21 04/12/21 22:00 02:00 02:53 Temperature Pulse Rate 165 H 132 H Respiratory Rate Blood Pressure O2 Sat by Pulse 99 100 Oximetry 04/12/21 04/12/21 03:42 04:00 Temperature 97.3 F L Pulse Rate 84 59 L Respiratory 18 20 Rate Blood Pressure 114/83 O2 Sat by Pulse 100 100 Oximetry - Labs CBC & Chem 7: 04/10/21 05:05 04/10/21 05:05 Labs: Abnormal lab results 04/11/21 04/11/21 04/11/21 Range/Units 11:44 18:41 23:29 POC Glucose 114 H 119 H 118 H (70-105) mg/dL 04/12/21 Range/Units 05:55 POC Glucose 143 H (70-105) mg/dL HEART Score - HEART Score Troponin: Troponin T < 0.010 ng/mL (0.00-0.029) 03/29/21 09:24
[2021-04-12] MEDS: VENLAFAXINE 25 MG TAB PO SCH (09:35)
[2021-04-12] MEDS: DOCUSATE SODIUM 100 MG/10 ML ORAL LIQD PO SCH (09:35)
[2021-04-12] MEDS: ALPRAZolam 1 MG TAB PO PRN (09:36)
[2021-04-12] MEDS: predniSONE 10 MG TAB PO SCH (09:36)
[2021-04-12] MEDS: busPIRone 10 MG TAB PO SCH (09:36)
[2021-04-12] MEDS: clonazePAM 0.5 MG TAB PO SCH (09:36)
[2021-04-12] MEDS: DULoxetine 30 MG CAP PO SCH (09:37)
--- NOTE | 2021-04-12 10:13 | Progress Note ---
Assessment and Plan - Patient Problems (1) Respiratory failure Current Visit: Yes Status: Acute Plan to address problem: Patient with long history of severe, oxygen dependent COPD, presented with respiratory failure due to COPD exacerbation. Stable sinus rhythm in the CCU. Continue supportive management and current treatment of COPD exacerbation. Subjective Date of service: 04/12/21 Principal diagnosis: Neurogenic Dysphagia Interval history: Patient is lethargic, on BiPAP, no cardiac events reported. She had PEG tube placement yesterday, and is awaiting initiation of tube feedings via the PEG. Objective Vital Signs Temp Pulse Pulse Resp Resp BP Pulse Ox 04/12/21 04:00 59 L 20 100 04/12/21 03:42 97.3 F L 84 18 114/83 100 04/12/21 02:53 132 H 04/12/21 02:00 100 04/11/21 22:00 165 H 99 04/11/21 21:13 60 62 16 18 98 04/11/21 21:11 98 04/11/21 19:51 98.9 F 120 H 19 147/78 96 04/11/21 19:06 118 H 04/11/21 16:59 98.3 F 69 24 146/66 97 04/11/21 16:35 121 H 04/11/21 16:15 124 H 16 99 04/11/21 15:00 128 H 17 122/63 99 04/11/21 14:45 124 H 16 125/56 99 04/11/21 14:30 129 H 19 137/70 99 04/11/21 14:20 132 H 18 158/68 98 04/11/21 14:15 136 H 20 158/68 100 04/11/21 14:10 132 H 158/68 98 04/11/21 14:08 142 H 16 152/74 100 04/11/21 14:03 145 H 15 144/74 100 04/11/21 13:58 97.6 F 150 H 12 143/67 100 04/11/21 12:28 98.6 F 124 H 22 152/103 100 04/11/21 12:19 100 - Physical Examination General: No Apparent Distress, Other (Lethargic) HEENT: Positive: PERRL, Normocephaly Neck: Positive: neck supple, trachea midline Cardiac: Positive: Reg Rate and Rhythm Lungs: Positive: Decreased Breath Sounds Neuro: Positive: Weakness (Generalized lethargy) Abdomen: Positive: Soft Skin: Positive: Clear Extremities: Absent: edema
[2021-04-12 10:35] VITALS: BP 135/71
[2021-04-12] MEDS: ARFORMOTEROL 15 MCG/2 ML NEBU IH SCH (11:00)
[2021-04-12] MEDS: BUDESONIDE 0.5 MG/2 ML NEBU IH SCH (11:00)
[2021-04-12] MEDS ORDERED: SODIUM BICARBONATE 325 MG TAB FEEDTUBE PRN (11:31)
[2021-04-12] MEDS ORDERED: SIMPLE SYRUP 15 ML FEEDTUBE PRN ×2 (11:31)
[2021-04-12] MEDS ORDERED: LIPASE 10,500/PROTEASE 25,000/AMYLASE 43,750 (UNITS) DR CAP FEEDTUBE PRN (11:31)
--- NOTE | 2021-04-12 12:09 | Post Anesthesia Evaluation ---
- Post Anesthesia Evaluation Patient Participated: No Airway Patent: Yes Stable Respiratory Function: Yes (bipap) Temp > 96.8F: No Adequeate Hydration: Yes (tube feed) Anesthesia Complications: No Block Receding Appropriately: No Patient on Ventilator: Yes (bipap)
--- NOTE | 2021-04-12 13:44 | Progress Note ---
Assessment and Plan 60 y/o female with acute on chronic respiratory failure, SVT and HTN likely all related to anxiety and stress 04/12/21: AGree with discharge today. Continue meds from here as well as bipap settings at home. Has HFNC as well. 04/11/21: Pulm status is stable. Peg placed today. Patient and family agreeing to go home with home hospice. Given she had procedure this afternoon, doubt she is ready for discharge to home yet. Will alert hospice so that they can get bipap set up at home. Possible discharge either tomorrow or Friday. 04/08/21: No new recs for today, please see below. 04/07/21: Started new anti depressant, appreciate psych recs. Continue HFNC during the day and NIV at night. Home with hospice soon. 04/06/21 PSych to readdress meds. Tolerated the HFNC all day. Will attempt transfer to telemetry floor. 04/05/21: Will speak with psych. Continue to attempt to convince patient to wear HFNC and Bipap at night. Drop steroids 04/04/21: Saw first hand what patient is likely doing at home. Severe panic attacks. For record, klonopin is what I started her on as an outpatient and she did not tolerate it. I had her on 1 BID and per the patient and she was completely out of it. Need to find the right combo that allows her to be calm and awake and functional. Will drop steroids down tomorrow to 10 daily and monitor for signs of AI. Hold on GI consult for now for peg, spoke with over the phone to update him. Very very guarded to poor prognosis. 04/03/21: Oxygen requirement is acceptable for hospice. Awaiting Pysch recs for anxiety control. Ok with increasing Buspar. Hopeful home with hospice as early as today but more reasonable would be tomorrow or . 04/02/21: Patient has verbally expressed that she wants to go home and she wants to go home with home hospice. Patient is already on [facility] palliative service and can transition to hospice. Awaiting to see how much oxygen we are able to provide for patient. She should be able to be weaned to nasal cannula but await to hear back from [place]. Per [facility] can do 50 liters and 50%. Patient currently on 40 and 50 with sat of 100. Await psych recommendations. 03/30/21: Currently still on bipap. No HFNC units available in the house. Transfused blood on yesterday. But no CBC checked today. Patient states that she is tired and has expressed this to several of the staff. She is currently on [facility] but my plan is to discuss hospice with her and her . Dropping steroids down starting tomorrow. Continue to wean Oxygen as tolerated. If possible keep in either ICU or step down over the weekend. 03/29/21: Currently on bipap. Good volumes and good sats. Still with some mild distress but stable. Will continue bipap therapy for now. Tomorrow will need to place psych consult if able to stay of the vent and weaned from continuous bipap to help us address anxiety and depression. IMS will likely want to transfuse PRBC's. Would give slowly if done. Discussed with D[employer] PROJECT MANAGER and Bedside nurse, will restart precedex at low dose to help with anxiety. Will alert . 03/28/21: Continue PSV but she isnt ready for extubation today. Not able to tolerates PSV on yesterday so today is first real test. Dropped steroids to daily starting today. UOP is stable, but she is grossly positive. If oxygen requirement increases, check CXR and may need to consider lasix. Continue PSV for as long as possible today but definitely rest overnight. Guarded prognosis. May eventually need trach. 03/27/21: Monitor renal function and urine output closely. Not sure why K continues to be elevated despite daily correction therapy. Attempt PSV off fent but can continue precedex. Will see how patient looks tomorrow but still may not be a candidate for extubation. Drop steroids to daily starting tomorrow. 03/26/21: Continue daily PSV trials. Agree with my partner as I would like another trial of routine extubation before committing to trach. Discussed with family and patient at bedside this am. Continue solumedrol 40q12. IMS restarted buspar. WIll have psych see and evaluate to help with anxiety and depression once extubated. Guarded prognosis. 03/22/21: Please see event note for details. Planned to extubate today and wean steroids. 03/21/21: Echo given continued tachycardia despite adequate oxygenation. Can drop steroids to 40q8. 03/19/21: Continue sedation. Wean FiO2 for sats >88%. consider weaning steroid tomorrow. Follow up RUQ and trend LFT's 1. Wean Versed and place on Diprovan drip 2. Will give Fent 100 IV x1 now and order drip if needed for pain 3. Spoke with over the phone to get more history. Sounds like a panic attack not aborted by xanax therapy. Did check Tylenol level as patient has been in pain from fall 4. Elevated LFT's former drinker but confirms she has not been drinking. Ordered RUQ ultrasound and need to repeat LFT's tomorrow 5. Reviewed cards note, and they do not want to treat tachycardia or elevated bp, likely needs more sedation Guarded prognosis CCT 31 minutes. Subjective Date of service: 04/12/21 Principal diagnosis: Neurogenic Dysphagia Interval history: Being discharged with home hospice today. Peg placed yesterday with no issues. Objective Vital Signs - 12hr 04/12/21 04/12/21 04/12/21 02:00 02:53 03:42 Temperature 97.3 F L Pulse Rate 132 H 84 Pulse Rate [ Bilateral] Respiratory 18 Rate Respiratory Rate [Bilateral ] Blood Pressure 114/83 O2 Sat by Pulse 100 100 Oximetry 04/12/21 04/12/21 04/12/21 04:00 08:00 08:39 Temperature 98.5 F Pulse Rate 59 L 91 H 67 Pulse Rate [ 90 Bilateral] Respiratory 20 17 26 H Rate Respiratory 17 Rate [Bilateral ] Blood Pressure 135/71 O2 Sat by Pulse 100 99 100 Oximetry Constitutional: other (moderate distress) Eyes: non-icteric ENT: oropharynx moist Neck: supple Effort: normal Ascultation: Bilateral: diminished breath sounds Cardiovascular: regular rate and rhythm (no mrg) Gastrointestinal: normoactive bowel sounds, soft, non-tender, non-distended Extremities: no cyanosis, no edema, pink and warm Neurologic: normal mental status, non-focal exam, pupils equal and round Psychiatric: mood appropriate, affect normal CBC and BMP: 04/10/21 05:05 04/10/21 05:05 ABG, PT/INR, D-dimer: ABG ABG pH 7.477 (7.320-7.450) H 03/24/21 08:57 POC ABG pCO2 56.9 mmHg (32.0-48.0) H 03/24/21 08:57 ABG pCO2 72.7 mm Hg 03/23/21 04:50 POC ABG pO2 100.6 mmHg (83-108) 03/24/21 08:57 ABG pO2 70.7 mm Hg (80.0-90.0) L 03/23/21 04:50 POC ABG HCO3 41.1 03/24/21 08:57 ABG O2 Saturation 98.3 (0-100) 03/24/21 08:57 PT/INR, D-dimer PT 11.2 Sec. (12.2-14.9) L 04/10/21 05:05 INR 0.73 (0.87-1.13) L 04/10/21 05:05 D-Dimer 947.92 ng/mlDDU (0-234) H 03/17/21 17:37 Abnormal lab findings: Abnormal Labs 03/17/21 03/17/21 03/17/21 17:36 17:36 17:37 WBC 13.8 H RBC 3.48 L Hgb 7.0 L Hct 26.2 L MCV 75 L MCH 20 L MCHC 27 L RDW 25.4 H Plt Count Seg Neuts % (Manual) Lymphocytes % (Manual) Monocytes % (Manual) Nucleated RBC % 7.0 H Seg Neutrophils # Man 8.7 H Lymphocytes # (Manual) Monocytes # (Manual) PT INR 0.85 L APTT 23.3 L D-Dimer 947.92 H ABG pH POC ABG pCO2 POC ABG pO2 ABG pO2 ABG HCO3 ABG O2 Saturation ABG Base Excess ABG Hemoglobin ABG Oxyhemoglobin ABG Potassium ABG Chloride ABG Glucose Oxyhemoglobin Sodium Potassium Chloride 88.2 L Carbon Dioxide 38 H BUN Creatinine Glucose 129 H POC Glucose Lactic Acid Calcium Phosphorus Magnesium AST 177 H ALT 251 H Alkaline Phosphatase Ammonia Troponin T 0.036 H Total Protein 5.9 L Albumin 3.8 L Triglycerides 173 H HDL Cholesterol 73 H Lipase Arterial Blood Glucose Arterial Blood Ionized Calcium Acetaminophen Crossmatch 03/17/21 03/17/21 03/17/21 18:15 18:40 18:40 WBC RBC Hgb Hct MCV MCH MCHC RDW Plt Count Seg Neuts % (Manual) Lymphocytes % (Manual) Monocytes % (Manual) Nucleated RBC % Seg Neutrophils # Man Lymphocytes # (Manual) Monocytes # (Manual) PT INR APTT D-Dimer ABG pH POC ABG pCO2 POC ABG pO2 ABG pO2 94.4 H ABG HCO3 44.8 H ABG O2 Saturation ABG Base Excess 16.6 H ABG Hemoglobin ABG Oxyhemoglobin ABG Potassium ABG Chloride ABG Glucose Oxyhemoglobin Sodium Potassium Chloride Carbon Dioxide BUN Creatinine Glucose POC Glucose Lactic Acid 4.00 H* Calcium Phosphorus Magnesium AST ALT Alkaline Phosphatase Ammonia 116.0 H Troponin T Total Protein Albumin Triglycerides HDL Cholesterol Lipase Arterial Blood Glucose Arterial Blood Ionized Calcium Acetaminophen Crossmatch 03/17/21 03/18/21 03/18/21 23:36 00:25 23:07 WBC RBC Hgb Hct MCV MCH MCHC RDW Plt Count Seg Neuts % (Manual) Lymphocytes % (Manual) Monocytes % (Manual) Nucleated RBC % Seg Neutrophils # Elijah Lymphocytes # (Manual) Monocytes # (Manual) PT INR APTT D-Dimer ABG pH POC ABG pCO2 POC ABG pO2 ABG pO2 68.1 L ABG HCO3 40.2 H ABG O2 Saturation ABG Base Excess 14.4 H ABG Hemoglobin 6.5 L ABG Oxyhemoglobin ABG Potassium ABG Chloride ABG Glucose Oxyhemoglobin Sodium Potassium Chloride Carbon Dioxide BUN Creatinine Glucose POC Glucose Lactic Acid 4.00 H* Calcium Phosphorus Magnesium AST ALT Alkaline Phosphatase Ammonia Troponin T Total Protein Albumin Triglycerides HDL Cholesterol Lipase Arterial Blood Glucose Arterial Blood Ionized Calcium Acetaminophen 5.0 L Crossmatch 03/19/21 03/19/21 03/19/21 00:50 03:25 04:59 WBC RBC 3.43 L Hgb 7.0 L Hct 25.6 L MCV 75 L MCH 20 L MCHC 27 L RDW 25.6 H Plt Count Seg Neuts % (Manual) 91.0 H Lymphocytes % (Manual) Monocytes % (Manual) 9.0 H Nucleated RBC % 3.0 H Seg Neutrophils # Man 9.0 H Lymphocytes # (Manual) 0.0 L Monocytes # (Manual) PT INR APTT D-Dimer ABG pH 7.531 H POC ABG pCO2 POC ABG pO2 ABG pO2 49.6 L ABG HCO3 31.4 H ABG O2 Saturation 99.6 H ABG Base Excess 8.1 H ABG Hemoglobin 7.2 L ABG Oxyhemoglobin ABG Potassium ABG Chloride ABG Glucose Oxyhemoglobin Sodium Potassium Chloride Carbon Dioxide BUN Creatinine Glucose POC Glucose 127 H Lactic Acid Calcium Phosphorus Magnesium AST ALT Alkaline Phosphatase Ammonia Troponin T Total Protein Albumin Triglycerides HDL Cholesterol Lipase Arterial Blood Glucose Arterial Blood Ionized Calcium Acetaminophen Crossmatch 03/19/21 03/19/21 03/19/21 04:59 10:37 12:00 WBC RBC Hgb Hct MCV MCH MCHC RDW Plt Count Seg Neuts % (Manual) Lymphocytes % (Manual) Monocytes % (Manual) Nucleated RBC % Seg Neutrophils # Man Lymphocytes # (Manual) Monocytes # (Manual) PT INR APTT D-Dimer ABG pH 7.494 H POC ABG pCO2 POC ABG pO2 ABG pO2 107.3 H ABG HCO3 31.6 H ABG O2 Saturation ABG Base Excess 7.7 H ABG Hemoglobin 7.1 L ABG Oxyhemoglobin ABG Potassium ABG Chloride ABG Glucose Oxyhemoglobin Sodium Potassium Chloride 89.5 L Carbon Dioxide BUN Creatinine Glucose 121 H POC Glucose Lactic Acid Calcium Phosphorus Magnesium AST 359 H ALT 1434 H Alkaline Phosphatase Ammonia Troponin T Total Protein 5.7 L Albumin 3.5 L Triglycerides HDL Cholesterol Lipase Arterial Blood Glucose Arterial Blood Ionized Calcium Acetaminophen Crossmatch 03/19/21 03/19/21 03/19/21 12:05 17:52 23:23 WBC RBC Hgb Hct MCV MCH MCHC RDW Plt Count Seg Neuts % (Manual) Lymphocytes % (Manual) Monocytes % (Manual) Nucleated RBC % Seg Neutrophils # Man Lymphocytes # (Manual) Monocytes # (Manual) PT INR APTT D-Dimer ABG pH POC ABG pCO2 POC ABG pO2 ABG pO2 ABG HCO3 ABG O2 Saturation ABG Base Excess ABG Hemoglobin ABG Oxyhemoglobin ABG Potassium ABG Chloride ABG Glucose Oxyhemoglobin Sodium Potassium Chloride Carbon Dioxide BUN Creatinine Glucose POC Glucose 122 H 114 H 187 H Lactic Acid Calcium Phosphorus Magnesium AST ALT Alkaline Phosphatase Ammonia Troponin T Total Protein Albumin Triglycerides HDL Cholesterol Lipase Arterial Blood Glucose Arterial Blood Ionized Calcium Acetaminophen Crossmatch 03/19/21 03/20/21 03/20/21 Unknown 03:50 03:57 WBC RBC Hgb Hct MCV MCH MCHC RDW Plt Count Seg Neuts % (Manual) Lymphocytes % (Manual) Monocytes % (Manual) Nucleated RBC % Seg Neutrophils # Man Lymphocytes # (Manual) Monocytes # (Manual) PT INR APTT D-Dimer ABG pH 7.477 H POC ABG pCO2 POC ABG pO2 ABG pO2 67.9 L ABG HCO3 33.9 H ABG O2 Saturation ABG Base Excess 9.5 H ABG Hemoglobin 6.7 L ABG Oxyhemoglobin ABG Potassium ABG Chloride ABG Glucose Oxyhemoglobin Sodium Potassium Chloride Carbon Dioxide BUN Creatinine Glucose POC Glucose 247 H Lactic Acid Calcium Phosphorus Magnesium AST ALT Alkaline Phosphatase Ammonia Troponin T Total Protein Albumin Triglycerides HDL Cholesterol Lipase 12 L Arterial Blood Glucose Arterial Blood Ionized Calcium Acetaminophen Crossmatch 03/20/21 03/20/21 03/20/21 04:18 04:18 10:16 WBC RBC 3.48 L Hgb 7.0 L Hct 25.3 L MCV 73 L MCH 20 L MCHC 28 L RDW 25.2 H Plt Count 541 H Seg Neuts % (Manual) Lymphocytes % (Manual) Monocytes % (Manual) Nucleated RBC % Seg Neutrophils # Man Lymphocytes # (Manual) Monocytes # (Manual) PT INR APTT D-Dimer ABG pH POC ABG pCO2 POC ABG pO2 ABG pO2 63.3 L ABG HCO3 34.0 H ABG O2 Saturation 90.0 L ABG Base Excess 7.9 H ABG Hemoglobin 10.5 L ABG Oxyhemoglobin ABG Potassium ABG Chloride ABG Glucose Oxyhemoglobin 88.1 L Sodium Potassium Chloride 91.6 L Carbon Dioxide BUN 22 H Creatinine Glucose 245 H POC Glucose Lactic Acid Calcium Phosphorus Magnesium AST 148 H ALT 1096 H Alkaline Phosphatase 133 H Ammonia Troponin T Total Protein Albumin 3.5 L Triglycerides HDL Cholesterol Lipase Arterial Blood Glucose Arterial Blood Ionized Calcium Acetaminophen Crossmatch 03/20/21 03/20/21 03/21/21 12:05 17:26 00:18 WBC RBC Hgb Hct MCV MCH MCHC RDW Plt Count Seg Neuts % (Manual) Lymphocytes % (Manual) Monocytes % (Manual) Nucleated RBC % Seg Neutrophils # Man Lymphocytes # (Manual) Monocytes # (Manual) PT INR APTT D-Dimer ABG pH POC ABG pCO2 POC ABG pO2 ABG pO2 ABG HCO3 ABG O2 Saturation ABG Base Excess ABG Hemoglobin ABG Oxyhemoglobin ABG Potassium ABG Chloride ABG Glucose Oxyhemoglobin Sodium Potassium Chloride Carbon Dioxide BUN Creatinine Glucose POC Glucose 226 H 215 H 323 H Lactic Acid Calcium Phosphorus Magnesium AST ALT Alkaline Phosphatase Ammonia Troponin T Total Protein Albumin Triglycerides HDL Cholesterol Lipase Arterial Blood Glucose Arterial Blood Ionized Calcium Acetaminophen Crossmatch 03/21/21 03/21/21 03/21/21 04:00 05:05 09:28 WBC 12.0 H RBC 3.42 L Hgb 6.8 L Hct 25.3 L MCV 74 L MCH 20 L MCHC 27 L RDW 25.1 H Plt Count 650 H Seg Neuts % (Manual) Lymphocytes % (Manual) Monocytes % (Manual) Nucleated RBC % Seg Neutrophils # Man Lymphocytes # (Manual) Monocytes # (Manual) PT INR APTT D-Dimer ABG pH 7.348 L POC ABG pCO2 POC ABG pO2 ABG pO2 56.3 L ABG HCO3 36.9 H ABG O2 Saturation 83.4 L ABG Base Excess 10.0 H ABG Hemoglobin 7.0 L ABG Oxyhemoglobin ABG Potassium ABG Chloride ABG Glucose Oxyhemoglobin 81.7 L Sodium Potassium Chloride Carbon Dioxide BUN Creatinine Glucose POC Glucose 311 H Lactic Acid Calcium Phosphorus Magnesium AST ALT Alkaline Phosphatase Ammonia Troponin T Total Protein Albumin Triglycerides HDL Cholesterol Lipase Arterial Blood Glucose Arterial Blood Ionized Calcium Acetaminophen Crossmatch 03/21/21 03/21/21 03/21/21 09:28 12:31 14:08 WBC RBC Hgb Hct MCV MCH MCHC RDW Plt Count Seg Neuts % (Manual) Lymphocytes % (Manual) Monocytes % (Manual) Nucleated RBC % Seg Neutrophils # Man Lymphocytes # (Manual) Monocytes # (Manual) PT INR APTT D-Dimer ABG pH POC ABG pCO2 POC ABG pO2 ABG pO2 ABG HCO3 ABG O2 Saturation ABG Base Excess ABG Hemoglobin ABG Oxyhemoglobin ABG Potassium ABG Chloride ABG Glucose Oxyhemoglobin Sodium Potassium 5.1 H D Chloride 94.4 L Carbon Dioxide 33 H BUN 32 H Creatinine Glucose 319 H POC Glucose 295 H Lactic Acid Calcium Phosphorus Magnesium 2.40 H AST ALT 697 H Alkaline Phosphatase 134 H Ammonia Troponin T Total Protein 5.8 L Albumin 3.4 L Triglycerides HDL Cholesterol Lipase Arterial Blood Glucose Arterial Blood Ionized Calcium Acetaminophen Crossmatch See Detail 03/22/21 03/22/21 03/22/21 00:14 04:30 04:39 WBC RBC Hgb Hct MCV MCH MCHC RDW Plt Count Seg Neuts % (Manual) Lymphocytes % (Manual) Monocytes % (Manual) Nucleated RBC % Seg Neutrophils # Man Lymphocytes # (Manual) Monocytes # (Manual) PT INR APTT D-Dimer ABG pH 7.310 L POC ABG pCO2 POC ABG pO2 ABG pO2 65.4 L ABG HCO3 38.3 H ABG O2 Saturation 90.8 L ABG Base Excess 10.9 H ABG Hemoglobin 6.4 L ABG Oxyhemoglobin ABG Potassium ABG Chloride ABG Glucose Oxyhemoglobin 88.7 L Sodium Potassium Chloride Carbon Dioxide BUN Creatinine Glucose POC Glucose 326 H Lactic Acid Calcium Phosphorus Magnesium AST ALT Alkaline Phosphatase Ammonia Troponin T Total Protein Albumin Triglycerides 189 H HDL Cholesterol Lipase Arterial Blood Glucose Arterial Blood Ionized Calcium Acetaminophen Crossmatch 03/22/21 03/22/21 03/22/21 04:39 04:39 09:45 WBC 12.8 H RBC 3.34 L Hgb 6.6 L Hct 24.5 L MCV 73 L MCH 20 L MCHC 27 L RDW 25.5 H Plt Count 644 H Seg Neuts % (Manual) Lymphocytes % (Manual) Monocytes % (Manual) Nucleated RBC % Seg Neutrophils # Man Lymphocytes # (Manual) Monocytes # (Manual) PT INR APTT D-Dimer ABG pH POC ABG pCO2 65.7 H POC ABG pO2 59.7 L ABG pO2 ABG HCO3 ABG O2 Saturation ABG Base Excess ABG Hemoglobin 8.0 L ABG Oxyhemoglobin 86.3 L ABG Potassium 4.7 H ABG Chloride 94.0 L ABG Glucose 208 H Oxyhemoglobin Sodium Potassium 5.3 H Chloride 94.6 L Carbon Dioxide 34 H BUN 33 H Creatinine Glucose 291 H POC Glucose Lactic Acid Calcium Phosphorus Magnesium AST ALT Alkaline Phosphatase Ammonia Troponin T Total Protein Albumin Triglycerides HDL Cholesterol Lipase Arterial Blood Glucose 208 H Arterial Blood Ionized Calcium Acetaminophen Crossmatch 03/22/21 03/22/21 03/23/21 21:33 23:58 04:42 WBC 14.3 H RBC 3.63 L Hgb 7.6 L Hct 27.0 L MCV 74 L MCH 21 L MCHC 28 L RDW 23.1 H Plt Count 567 H Seg Neuts % (Manual) Lymphocytes % (Manual) Monocytes % (Manual) Nucleated RBC % Seg Neutrophils # Man Lymphocytes # (Manual) Monocytes # (Manual) PT INR APTT D-Dimer ABG pH POC ABG pCO2 POC ABG pO2 ABG pO2 ABG HCO3 ABG O2 Saturation ABG Base Excess ABG Hemoglobin ABG Oxyhemoglobin ABG Potassium ABG Chloride ABG Glucose Oxyhemoglobin Sodium Potassium Chloride Carbon Dioxide BUN Creatinine Glucose POC Glucose 170 H 156 H Lactic Acid Calcium Phosphorus Magnesium AST ALT Alkaline Phosphatase Ammonia Troponin T Total Protein Albumin Triglycerides HDL Cholesterol Lipase Arterial Blood Glucose Arterial Blood Ionized Calcium Acetaminophen Crossmatch 03/23/21 03/23/21 03/23/21 04:42 04:50 22:25 WBC RBC Hgb Hct MCV MCH MCHC RDW Plt Count Seg Neuts % (Manual) Lymphocytes % (Manual) Monocytes % (Manual) Nucleated RBC % Seg Neutrophils # Man Lymphocytes # (Manual) Monocytes # (Manual) PT INR APTT D-Dimer ABG pH POC ABG pCO2 POC ABG pO2 ABG pO2 70.7 L ABG HCO3 41.7 H ABG O2 Saturation ABG Base Excess 15.2 H ABG Hemoglobin 5.6 L ABG Oxyhemoglobin ABG Potassium ABG Chloride ABG Glucose Oxyhemoglobin Sodium Potassium Chloride 94.6 L Carbon Dioxide 37 H BUN 27 H Creatinine Glucose 311 H POC Glucose 295 H Lactic Acid Calcium Phosphorus Magnesium AST ALT Alkaline Phosphatase Ammonia Troponin T Total Protein Albumin Triglycerides HDL Cholesterol Lipase Arterial Blood Glucose Arterial Blood Ionized Calcium Acetaminophen Crossmatch 03/23/21 03/24/21 03/24/21 23:13 05:13 07:59 WBC RBC Hgb Hct MCV MCH MCHC RDW Plt Count Seg Neuts % (Manual) Lymphocytes % (Manual) Monocytes % (Manual) Nucleated RBC % Seg Neutrophils # Man Lymphocytes # (Manual) Monocytes # (Manual) PT INR APTT D-Dimer ABG pH POC ABG pCO2 POC ABG pO2 ABG pO2 ABG HCO3 ABG O2 Saturation ABG Base Excess ABG Hemoglobin ABG Oxyhemoglobin ABG Potassium ABG Chloride ABG Glucose Oxyhemoglobin Sodium Potassium Chloride Carbon Dioxide BUN Creatinine Glucose POC Glucose 336 H 303 H 333 H Lactic Acid Calcium Phosphorus Magnesium AST ALT Alkaline Phosphatase Ammonia Troponin T Total Protein Albumin Triglycerides HDL Cholesterol Lipase Arterial Blood Glucose Arterial Blood Ionized Calcium Acetaminophen Crossmatch 03/24/21 03/24/21 03/24/21 08:03 08:03 08:57 WBC 12.7 H RBC 3.48 L Hgb 7.3 L Hct 26.3 L MCV 76 L MCH 21 L MCHC 28 L RDW 24.1 H Plt Count 499 H Seg Neuts % (Manual) Lymphocytes % (Manual) 1.0 L Monocytes % (Manual) 16.0 H Nucleated RBC % 11.0 H Seg Neutrophils # Man 8.1 H Lymphocytes # (Manual) 0.1 L Monocytes # (Manual) 2.1 H PT INR APTT D-Dimer ABG pH 7.477 H POC ABG pCO2 56.9 H POC ABG pO2 ABG pO2 ABG HCO3 ABG O2 Saturation ABG Base Excess ABG Hemoglobin 8.0 L ABG Oxyhemoglobin ABG Potassium ABG Chloride 93.0 L ABG Glucose 328 H Oxyhemoglobin Sodium Potassium Chloride 94.4 L Carbon Dioxide 38 H BUN 26 H Creatinine 0.5 L Glucose 348 H POC Glucose Lactic Acid Calcium Phosphorus Magnesium AST ALT Alkaline Phosphatase Ammonia Troponin T Total Protein Albumin Triglycerides HDL Cholesterol Lipase Arterial Blood Glucose 328 H Arterial Blood Ionized Calcium 4.5 L Acetaminophen Crossmatch 03/24/21 03/24/21 03/25/21 12:14 17:45 04:00 WBC 15.8 H RBC Hgb 7.5 L Hct 27.4 L MCV 75 L MCH 21 L MCHC 28 L RDW 24.0 H Plt Count 576 H Seg Neuts % (Manual) Lymphocytes % (Manual) Monocytes % (Manual) Nucleated RBC % Seg Neutrophils # Man Lymphocytes # (Manual) Monocytes # (Manual) PT INR APTT D-Dimer ABG pH POC ABG pCO2 POC ABG pO2 ABG pO2 ABG HCO3 ABG O2 Saturation ABG Base Excess ABG Hemoglobin ABG Oxyhemoglobin ABG Potassium ABG Chloride ABG Glucose Oxyhemoglobin Sodium Potassium Chloride Carbon Dioxide BUN Creatinine Glucose POC Glucose 315 H 324 H Lactic Acid Calcium Phosphorus Magnesium AST ALT Alkaline Phosphatase Ammonia Troponin T Total Protein Albumin Triglycerides HDL Cholesterol Lipase Arterial Blood Glucose Arterial Blood Ionized Calcium Acetaminophen Crossmatch 03/25/21 03/25/21 03/25/21 07:52 16:37 17:38 WBC RBC Hgb Hct MCV MCH MCHC RDW Plt Count Seg Neuts % (Manual) Lymphocytes % (Manual) Monocytes % (Manual) Nucleated RBC % Seg Neutrophils # Man Lymphocytes # (Manual) Monocytes # (Manual) PT INR APTT D-Dimer ABG pH POC ABG pCO2 POC ABG pO2 ABG pO2 ABG HCO3 ABG O2 Saturation ABG Base Excess ABG Hemoglobin ABG Oxyhemoglobin ABG Potassium ABG Chloride ABG Glucose Oxyhemoglobin Sodium Potassium Chloride 95.9 L Carbon Dioxide 33 H BUN 24 H Creatinine 0.4 L Glucose 289 H POC Glucose 321 H 295 H Lactic Acid Calcium Phosphorus Magnesium AST ALT Alkaline Phosphatase Ammonia Troponin T Total Protein Albumin Triglycerides HDL Cholesterol Lipase Arterial Blood Glucose Arterial Blood Ionized Calcium Acetaminophen Crossmatch 03/25/21 03/26/21 03/26/21 23:27 05:07 05:35 WBC 20.0 H RBC 3.37 L Hgb 7.0 L Hct 25.2 L MCV 75 L MCH 21 L MCHC 28 L RDW 24.0 H Plt Count 544 H Seg Neuts % (Manual) 72.0 H Lymphocytes % (Manual) 6.0 L Monocytes % (Manual) 8.0 H Nucleated RBC % Seg Neutrophils # Man 14.4 H Lymphocytes # (Manual) Monocytes # (Manual) 1.6 H PT INR APTT D-Dimer ABG pH POC ABG pCO2 POC ABG pO2 ABG pO2 ABG HCO3 ABG O2 Saturation ABG Base Excess ABG Hemoglobin ABG Oxyhemoglobin ABG Potassium ABG Chloride ABG Glucose Oxyhemoglobin Sodium Potassium Chloride Carbon Dioxide BUN Creatinine Glucose POC Glucose 231 H 200 H Lactic Acid Calcium Phosphorus Magnesium AST ALT Alkaline Phosphatase Ammonia Troponin T Total Protein Albumin Triglycerides HDL Cholesterol Lipase Arterial Blood Glucose Arterial Blood Ionized Calcium Acetaminophen Crossmatch 03/26/21 03/26/21 03/26/21 05:35 10:33 12:12 WBC RBC Hgb Hct MCV MCH MCHC RDW Plt Count Seg Neuts % (Manual) Lymphocytes % (Manual) Monocytes % (Manual) Nucleated RBC % Seg Neutrophils # Man Lymphocytes # (Manual) Monocytes # (Manual) PT INR APTT D-Dimer ABG pH POC ABG pCO2 POC ABG pO2 ABG pO2 ABG HCO3 ABG O2 Saturation ABG Base Excess ABG Hemoglobin ABG Oxyhemoglobin ABG Potassium ABG Chloride ABG Glucose Oxyhemoglobin Sodium Potassium 5.9 H D Chloride 91.9 L Carbon Dioxide 33 H BUN 20 H Creatinine 0.4 L Glucose 197 H POC Glucose 132 H 176 H Lactic Acid Calcium Phosphorus Magnesium AST ALT 169 H Alkaline Phosphatase 138 H Ammonia Troponin T Total Protein 5.5 L Albumin 3.2 L Triglycerides HDL Cholesterol Lipase Arterial Blood Glucose Arterial Blood Ionized Calcium Acetaminophen Crossmatch 03/26/21 03/26/21 03/26/21 16:50 18:06 22:19 WBC RBC Hgb Hct MCV MCH MCHC RDW Plt Count Seg Neuts % (Manual) Lymphocytes % (Manual) Monocytes % (Manual) Nucleated RBC % Seg Neutrophils # Man Lymphocytes # (Manual) Monocytes # (Manual) PT INR APTT D-Dimer ABG pH POC ABG pCO2 POC ABG pO2 ABG pO2 ABG HCO3 ABG O2 Saturation ABG Base Excess ABG Hemoglobin ABG Oxyhemoglobin ABG Potassium ABG Chloride ABG Glucose Oxyhemoglobin Sodium Potassium 5.2 H Chloride 91.7 L Carbon Dioxide 38 H BUN 19 H Creatinine 0.4 L Glucose 260 H POC Glucose 248 H 168 H Lactic Acid Calcium Phosphorus Magnesium AST ALT Alkaline Phosphatase Ammonia Troponin T Total Protein Albumin Triglycerides HDL Cholesterol Lipase Arterial Blood Glucose Arterial Blood Ionized Calcium Acetaminophen Crossmatch 03/27/21 03/27/21 03/27/21 01:02 01:32 04:15 WBC 21.4 H RBC 3.45 L Hgb 6.9 L Hct 26.2 L MCV 76 L MCH 20 L MCHC 27 L RDW 24.5 H Plt Count 500 H Seg Neuts % (Manual) Lymphocytes % (Manual) Monocytes % (Manual) Nucleated RBC % Seg Neutrophils # Man Lymphocytes # (Manual) Monocytes # (Manual) PT INR APTT D-Dimer ABG pH POC ABG pCO2 POC ABG pO2 ABG pO2 ABG HCO3 ABG O2 Saturation ABG Base Excess ABG Hemoglobin ABG Oxyhemoglobin ABG Potassium ABG Chloride ABG Glucose Oxyhemoglobin Sodium Potassium Chloride Carbon Dioxide BUN Creatinine Glucose POC Glucose 219 H 221 H Lactic Acid Calcium Phosphorus Magnesium AST ALT Alkaline Phosphatase Ammonia Troponin T Total Protein Albumin Triglycerides HDL Cholesterol Lipase Arterial Blood Glucose Arterial Blood Ionized Calcium Acetaminophen Crossmatch 03/27/21 03/27/21 03/27/21 04:15 06:37 11:21 WBC RBC Hgb Hct MCV MCH MCHC RDW Plt Count Seg Neuts % (Manual) Lymphocytes % (Manual) Monocytes % (Manual) Nucleated RBC % Seg Neutrophils # Man Lymphocytes # (Manual) Monocytes # (Manual) PT INR APTT D-Dimer ABG pH POC ABG pCO2 POC ABG pO2 ABG pO2 ABG HCO3 ABG O2 Saturation ABG Base Excess ABG Hemoglobin ABG Oxyhemoglobin ABG Potassium ABG Chloride ABG Glucose Oxyhemoglobin Sodium Potassium 5.3 H Chloride 94.4 L Carbon Dioxide 35 H BUN 20 H Creatinine 0.4 L Glucose 310 H POC Glucose 312 H 273 H Lactic Acid Calcium 8.3 L Phosphorus 4.60 H D Magnesium AST ALT Alkaline Phosphatase Ammonia Troponin T Total Protein Albumin Triglycerides HDL Cholesterol Lipase Arterial Blood Glucose Arterial Blood Ionized Calcium Acetaminophen Crossmatch 03/27/21 03/27/21 03/28/21 16:14 21:21 00:16 WBC RBC Hgb Hct MCV MCH MCHC RDW Plt Count Seg Neuts % (Manual) Lymphocytes % (Manual) Monocytes % (Manual) Nucleated RBC % Seg Neutrophils # Man Lymphocytes # (Manual) Monocytes # (Manual) PT INR APTT D-Dimer ABG pH POC ABG pCO2 POC ABG pO2 ABG pO2 ABG HCO3 ABG O2 Saturation ABG Base Excess ABG Hemoglobin ABG Oxyhemoglobin ABG Potassium ABG Chloride ABG Glucose Oxyhemoglobin Sodium Potassium Chloride Carbon Dioxide BUN Creatinine Glucose POC Glucose 241 H 179 H 160 H Lactic Acid Calcium Phosphorus Magnesium AST ALT Alkaline Phosphatase Ammonia Troponin T Total Protein Albumin Triglycerides HDL Cholesterol Lipase Arterial Blood Glucose Arterial Blood Ionized Calcium Acetaminophen Crossmatch 03/28/21 03/28/21 03/28/21 04:00 04:00 05:41 WBC 27.1 H RBC 3.46 L Hgb 7.1 L Hct 26.1 L MCV 76 L MCH 20 L MCHC 27 L RDW 24.0 H Plt Count 541 H Seg Neuts % (Manual) Lymphocytes % (Manual) Monocytes % (Manual) Nucleated RBC % Seg Neutrophils # Man Lymphocytes # (Manual) Monocytes # (Manual) PT INR APTT D-Dimer ABG pH POC ABG pCO2 POC ABG pO2 ABG pO2 ABG HCO3 ABG O2 Saturation ABG Base Excess ABG Hemoglobin ABG Oxyhemoglobin ABG Potassium ABG Chloride ABG Glucose Oxyhemoglobin Sodium Potassium Chloride 95.7 L Carbon Dioxide 36 H BUN 23 H Creatinine 0.4 L Glucose 295 H POC Glucose 279 H Lactic Acid Calcium Phosphorus Magnesium AST ALT Alkaline Phosphatase Ammonia Troponin T Total Protein Albumin Triglycerides HDL Cholesterol Lipase Arterial Blood Glucose Arterial Blood Ionized Calcium Acetaminophen Crossmatch 03/28/21 03/28/21 03/28/21 11:50 16:45 23:15 WBC RBC Hgb Hct MCV MCH MCHC RDW Plt Count Seg Neuts % (Manual) Lymphocytes % (Manual) Monocytes % (Manual) Nucleated RBC % Seg Neutrophils # Man Lymphocytes # (Manual) Monocytes # (Manual) PT INR APTT D-Dimer ABG pH POC ABG pCO2 POC ABG pO2 ABG pO2 ABG HCO3 ABG O2 Saturation ABG Base Excess ABG Hemoglobin ABG Oxyhemoglobin ABG Potassium ABG Chloride ABG Glucose Oxyhemoglobin Sodium Potassium Chloride Carbon Dioxide BUN Creatinine Glucose POC Glucose 233 H 240 H 189 H Lactic Acid Calcium Phosphorus Magnesium AST ALT Alkaline Phosphatase Ammonia Troponin T Total Protein Albumin Triglycerides HDL Cholesterol Lipase Arterial Blood Glucose Arterial Blood Ionized Calcium Acetaminophen Crossmatch 03/29/21 03/29/21 03/29/21 04:35 04:35 05:05 WBC 29.6 H RBC 3.18 L Hgb 6.7 L Hct 24.2 L MCV 76 L MCH 21 L MCHC 28 L RDW 24.0 H Plt Count 678 H Seg Neuts % (Manual) Lymphocytes % (Manual) Monocytes % (Manual) Nucleated RBC % Seg Neutrophils # Man Lymphocytes # (Manual) Monocytes # (Manual) PT INR APTT D-Dimer ABG pH POC ABG pCO2 POC ABG pO2 ABG pO2 ABG HCO3 ABG O2 Saturation ABG Base Excess ABG Hemoglobin ABG Oxyhemoglobin ABG Potassium ABG Chloride ABG Glucose Oxyhemoglobin Sodium Potassium Chloride 95.4 L Carbon Dioxide 37 H BUN 22 H Creatinine 0.4 L Glucose 194 H POC Glucose 195 H Lactic Acid Calcium Phosphorus Magnesium AST ALT Alkaline Phosphatase Ammonia Troponin T Total Protein Albumin Triglycerides HDL Cholesterol Lipase Arterial Blood Glucose Arterial Blood Ionized Calcium Acetaminophen Crossmatch 03/29/21 03/29/21 03/29/21 09:24 10:58 17:14 WBC RBC Hgb Hct MCV MCH MCHC RDW Plt Count Seg Neuts % (Manual) Lymphocytes % (Manual) Monocytes % (Manual) Nucleated RBC % Seg Neutrophils # Man Lymphocytes # (Manual) Monocytes # (Manual) PT INR APTT D-Dimer ABG pH POC ABG pCO2 POC ABG pO2 ABG pO2 ABG HCO3 ABG O2 Saturation ABG Base Excess ABG Hemoglobin ABG Oxyhemoglobin ABG Potassium ABG Chloride ABG Glucose Oxyhemoglobin Sodium Potassium Chloride Carbon Dioxide BUN Creatinine Glucose POC Glucose 106 H 117 H Lactic Acid Calcium Phosphorus Magnesium AST ALT Alkaline Phosphatase Ammonia Troponin T Total Protein Albumin Triglycerides HDL Cholesterol Lipase Arterial Blood Glucose Arterial Blood Ionized Calcium Acetaminophen Crossmatch See Detail 03/29/21 03/29/21 03/30/21 19:32 23:36 01:49 WBC 25.1 H RBC Hgb 9.3 L Hct MCV 77 L MCH 23 L MCHC RDW 22.7 H Plt Count 599 H Seg Neuts % (Manual) Lymphocytes % (Manual) Monocytes % (Manual) Nucleated RBC % Seg Neutrophils # Man Lymphocytes # (Manual) Monocytes # (Manual) PT INR APTT D-Dimer ABG pH POC ABG pCO2 POC ABG pO2 ABG pO2 ABG HCO3 ABG O2 Saturation ABG Base Excess ABG Hemoglobin ABG Oxyhemoglobin ABG Potassium ABG Chloride ABG Glucose Oxyhemoglobin Sodium Potassium Chloride Carbon Dioxide BUN Creatinine Glucose POC Glucose 57 L 55 L Lactic Acid Calcium Phosphorus Magnesium AST ALT Alkaline Phosphatase Ammonia Troponin T Total Protein Albumin Triglycerides HDL Cholesterol Lipase Arterial Blood Glucose Arterial Blood Ionized Calcium Acetaminophen Crossmatch 03/30/21 03/30/21 03/30/21 04:00 15:52 18:07 WBC RBC Hgb Hct MCV MCH MCHC RDW Plt Count Seg Neuts % (Manual) Lymphocytes % (Manual) Monocytes % (Manual) Nucleated RBC % Seg Neutrophils # Man Lymphocytes # (Manual) Monocytes # (Manual) PT INR APTT D-Dimer ABG pH POC ABG pCO2 POC ABG pO2 ABG pO2 ABG HCO3 ABG O2 Saturation ABG Base Excess ABG Hemoglobin ABG Oxyhemoglobin ABG Potassium ABG Chloride ABG Glucose Oxyhemoglobin Sodium Potassium Chloride 93.4 L Carbon Dioxide 34 H BUN 18 H Creatinine 0.3 L Glucose 114 H POC Glucose 112 H 130 H Lactic Acid Calcium Phosphorus 4.70 H Magnesium AST ALT Alkaline Phosphatase Ammonia Troponin T Total Protein Albumin Triglycerides HDL Cholesterol Lipase Arterial Blood Glucose Arterial Blood Ionized Calcium Acetaminophen Crossmatch 03/30/21 03/31/21 03/31/21 23:26 04:41 04:41 WBC 30.8 H RBC Hgb 9.3 L Hct MCV MCH 23 L MCHC 28 L RDW 22.3 H Plt Count 642 H Seg Neuts % (Manual) Lymphocytes % (Manual) Monocytes % (Manual) Nucleated RBC % Seg Neutrophils # Man Lymphocytes # (Manual) Monocytes # (Manual) PT INR APTT D-Dimer ABG pH POC ABG pCO2 POC ABG pO2 ABG pO2 ABG HCO3 ABG O2 Saturation ABG Base Excess ABG Hemoglobin ABG Oxyhemoglobin ABG Potassium ABG Chloride ABG Glucose Oxyhemoglobin Sodium Potassium Chloride 96.3 L Carbon Dioxide 34 H BUN Creatinine 0.3 L Glucose POC Glucose 124 H Lactic Acid Calcium Phosphorus Magnesium AST ALT Alkaline Phosphatase Ammonia Troponin T Total Protein Albumin Triglycerides HDL Cholesterol Lipase Arterial Blood Glucose Arterial Blood Ionized Calcium Acetaminophen Crossmatch 03/31/21 04/01/21 04/01/21 17:45 00:17 04:27 WBC 20.2 H RBC Hgb 9.1 L Hct MCV MCH 23 L MCHC 28 L RDW 22.3 H Plt Count 454 H Seg Neuts % (Manual) Lymphocytes % (Manual) Monocytes % (Manual) Nucleated RBC % Seg Neutrophils # Man Lymphocytes # (Manual) Monocytes # (Manual) PT INR APTT D-Dimer ABG pH POC ABG pCO2 POC ABG pO2 ABG pO2 ABG HCO3 ABG O2 Saturation ABG Base Excess ABG Hemoglobin ABG Oxyhemoglobin ABG Potassium ABG Chloride ABG Glucose Oxyhemoglobin Sodium Potassium Chloride Carbon Dioxide BUN Creatinine Glucose POC Glucose 130 H 108 H Lactic Acid Calcium Phosphorus Magnesium AST ALT Alkaline Phosphatase Ammonia Troponin T Total Protein Albumin Triglycerides HDL Cholesterol Lipase Arterial Blood Glucose Arterial Blood Ionized Calcium Acetaminophen Crossmatch 04/01/21 04/01/21 04/01/21 04:27 11:56 16:19 WBC RBC Hgb Hct MCV MCH MCHC RDW Plt Count Seg Neuts % (Manual) Lymphocytes % (Manual) Monocytes % (Manual) Nucleated RBC % Seg Neutrophils # Man Lymphocytes # (Manual) Monocytes # (Manual) PT INR APTT D-Dimer ABG pH POC ABG pCO2 POC ABG pO2 ABG pO2 ABG HCO3 ABG O2 Saturation ABG Base Excess ABG Hemoglobin ABG Oxyhemoglobin ABG Potassium ABG Chloride ABG Glucose Oxyhemoglobin Sodium Potassium Chloride Carbon Dioxide 31 H BUN Creatinine 0.4 L Glucose POC Glucose 112 H 172 H Lactic Acid Calcium Phosphorus Magnesium AST ALT Alkaline Phosphatase Ammonia Troponin T Total Protein Albumin Triglycerides HDL Cholesterol Lipase Arterial Blood Glucose Arterial Blood Ionized Calcium Acetaminophen Crossmatch 04/01/21 04/02/21 04/02/21 23:19 04:30 04:30 WBC 17.3 H RBC Hgb 8.7 L Hct 30.1 L MCV MCH 23 L MCHC 29 L RDW 22.4 H Plt Count 521 H Seg Neuts % (Manual) Lymphocytes % (Manual) Monocytes % (Manual) Nucleated RBC % Seg Neutrophils # Man Lymphocytes # (Manual) Monocytes # (Manual) PT INR APTT D-Dimer ABG pH POC ABG pCO2 POC ABG pO2 ABG pO2 ABG HCO3 ABG O2 Saturation ABG Base Excess ABG Hemoglobin ABG Oxyhemoglobin ABG Potassium ABG Chloride ABG Glucose Oxyhemoglobin Sodium Potassium Chloride Carbon Dioxide 33 H BUN Creatinine 0.4 L Glucose POC Glucose 112 H Lactic Acid Calcium Phosphorus Magnesium AST ALT Alkaline Phosphatase Ammonia Troponin T Total Protein Albumin Triglycerides HDL Cholesterol Lipase Arterial Blood Glucose Arterial Blood Ionized Calcium Acetaminophen Crossmatch 04/02/21 04/03/21 04/03/21 23:32 05:14 15:30 WBC 14.2 H RBC Hgb 9.6 L Hct MCV MCH 23 L MCHC 29 L RDW 23.4 H Plt Count 662 H Seg Neuts % (Manual) Lymphocytes % (Manual) Monocytes % (Manual) Nucleated RBC % Seg Neutrophils # Man Lymphocytes # (Manual) Monocytes # (Manual) PT INR APTT D-Dimer ABG pH POC ABG pCO2 POC ABG pO2 ABG pO2 ABG HCO3 ABG O2 Saturation ABG Base Excess ABG Hemoglobin ABG Oxyhemoglobin ABG Potassium ABG Chloride ABG Glucose Oxyhemoglobin Sodium Potassium Chloride Carbon Dioxide BUN Creatinine Glucose POC Glucose 112 H 118 H Lactic Acid Calcium Phosphorus Magnesium AST ALT Alkaline Phosphatase Ammonia Troponin T Total Protein Albumin Triglycerides HDL Cholesterol Lipase Arterial Blood Glucose Arterial Blood Ionized Calcium Acetaminophen Crossmatch 04/03/21 04/03/21 04/03/21 15:30 17:29 23:52 WBC RBC Hgb Hct MCV MCH MCHC RDW Plt Count Seg Neuts % (Manual) Lymphocytes % (Manual) Monocytes % (Manual) Nucleated RBC % Seg Neutrophils # Man Lymphocytes # (Manual) Monocytes # (Manual) PT INR APTT D-Dimer ABG pH POC ABG pCO2 POC ABG pO2 ABG pO2 ABG HCO3 ABG O2 Saturation ABG Base Excess ABG Hemoglobin ABG Oxyhemoglobin ABG Potassium ABG Chloride ABG Glucose Oxyhemoglobin Sodium Potassium Chloride Carbon Dioxide 35 H BUN Creatinine 0.4 L Glucose 163 H POC Glucose 157 H 66 L Lactic Acid Calcium Phosphorus Magnesium AST ALT Alkaline Phosphatase Ammonia Troponin T Total Protein Albumin Triglycerides HDL Cholesterol Lipase Arterial Blood Glucose Arterial Blood Ionized Calcium Acetaminophen Crossmatch 04/04/21 04/04/21 04/04/21 04:21 04:21 05:35 WBC 14.4 H RBC Hgb 9.9 L Hct MCV MCH 24 L MCHC RDW 23.0 H Plt Count 572 H Seg Neuts % (Manual) Lymphocytes % (Manual) Monocytes % (Manual) Nucleated RBC % Seg Neutrophils # Man Lymphocytes # (Manual) Monocytes # (Manual) PT INR APTT D-Dimer ABG pH POC ABG pCO2 POC ABG pO2 ABG pO2 ABG HCO3 ABG O2 Saturation ABG Base Excess ABG Hemoglobin ABG Oxyhemoglobin ABG Potassium ABG Chloride ABG Glucose Oxyhemoglobin Sodium 146 H Potassium Chloride 96.8 L Carbon Dioxide 35 H BUN Creatinine 0.4 L Glucose 111 H POC Glucose 124 H Lactic Acid Calcium Phosphorus Magnesium AST ALT Alkaline Phosphatase Ammonia Troponin T Total Protein Albumin Triglycerides HDL Cholesterol Lipase Arterial Blood Glucose Arterial Blood Ionized Calcium Acetaminophen Crossmatch 04/04/21 04/04/21 04/04/21 07:34 10:59 16:22 WBC RBC Hgb Hct MCV MCH MCHC RDW Plt Count Seg Neuts % (Manual) Lymphocytes % (Manual) Monocytes % (Manual) Nucleated RBC % Seg Neutrophils # Man Lymphocytes # (Manual) Monocytes # (Manual) PT INR APTT D-Dimer ABG pH POC ABG pCO2 POC ABG pO2 ABG pO2 ABG HCO3 ABG O2 Saturation ABG Base Excess ABG Hemoglobin ABG Oxyhemoglobin ABG Potassium ABG Chloride ABG Glucose Oxyhemoglobin Sodium Potassium Chloride Carbon Dioxide BUN Creatinine Glucose POC Glucose 116 H 152 H 191 H Lactic Acid Calcium Phosphorus Magnesium AST ALT Alkaline Phosphatase Ammonia Troponin T Total Protein Albumin Triglycerides HDL Cholesterol Lipase Arterial Blood Glucose Arterial Blood Ionized Calcium Acetaminophen Crossmatch 04/05/21 04/05/21 04/05/21 05:48 11:31 17:45 WBC RBC Hgb Hct MCV MCH MCHC RDW Plt Count Seg Neuts % (Manual) Lymphocytes % (Manual) Monocytes % (Manual) Nucleated RBC % Seg Neutrophils # Man Lymphocytes # (Manual) Monocytes # (Manual) PT INR APTT D-Dimer ABG pH POC ABG pCO2 POC ABG pO2 ABG pO2 ABG HCO3 ABG O2 Saturation ABG Base Excess ABG Hemoglobin ABG Oxyhemoglobin ABG Potassium ABG Chloride ABG Glucose Oxyhemoglobin Sodium Potassium Chloride Carbon Dioxide BUN Creatinine Glucose POC Glucose 133 H 167 H 181 H Lactic Acid Calcium Phosphorus Magnesium AST ALT Alkaline Phosphatase Ammonia Troponin T Total Protein Albumin Triglycerides HDL Cholesterol Lipase Arterial Blood Glucose Arterial Blood Ionized Calcium Acetaminophen Crossmatch 04/05/21 04/06/21 04/06/21 22:12 06:39 11:35 WBC RBC Hgb Hct MCV MCH MCHC RDW Plt Count Seg Neuts % (Manual) Lymphocytes % (Manual) Monocytes % (Manual) Nucleated RBC % Seg Neutrophils # Man Lymphocytes # (Manual) Monocytes # (Manual) PT INR APTT D-Dimer ABG pH POC ABG pCO2 POC ABG pO2 ABG pO2 ABG HCO3 ABG O2 Saturation ABG Base Excess ABG Hemoglobin ABG Oxyhemoglobin ABG Potassium ABG Chloride ABG Glucose Oxyhemoglobin Sodium Potassium Chloride Carbon Dioxide BUN Creatinine Glucose POC Glucose 129 H 151 H 165 H Lactic Acid Calcium Phosphorus Magnesium AST ALT Alkaline Phosphatase Ammonia Troponin T Total Protein Albumin Triglycerides HDL Cholesterol Lipase Arterial Blood Glucose Arterial Blood Ionized Calcium Acetaminophen Crossmatch 04/06/21 04/06/21 04/07/21 15:08 18:02 00:42 WBC RBC Hgb Hct MCV MCH MCHC RDW Plt Count Seg Neuts % (Manual) Lymphocytes % (Manual) Monocytes % (Manual) Nucleated RBC % Seg Neutrophils # Man Lymphocytes # (Manual) Monocytes # (Manual) PT INR APTT D-Dimer ABG pH POC ABG pCO2 POC ABG pO2 ABG pO2 ABG HCO3 ABG O2 Saturation ABG Base Excess ABG Hemoglobin ABG Oxyhemoglobin ABG Potassium ABG Chloride ABG Glucose Oxyhemoglobin Sodium Potassium Chloride Carbon Dioxide BUN Creatinine Glucose POC Glucose 202 H 140 H 150 H Lactic Acid Calcium Phosphorus Magnesium AST ALT Alkaline Phosphatase Ammonia Troponin T Total Protein Albumin Triglycerides HDL Cholesterol Lipase Arterial Blood Glucose Arterial Blood Ionized Calcium Acetaminophen Crossmatch 04/07/21 04/07/21 04/07/21 05:43 11:29 17:18 WBC RBC Hgb Hct MCV MCH MCHC RDW Plt Count Seg Neuts % (Manual) Lymphocytes % (Manual) Monocytes % (Manual) Nucleated RBC % Seg Neutrophils # Man Lymphocytes # (Manual) Monocytes # (Manual) PT INR APTT D-Dimer ABG pH POC ABG pCO2 POC ABG pO2 ABG pO2 ABG HCO3 ABG O2 Saturation ABG Base Excess ABG Hemoglobin ABG Oxyhemoglobin ABG Potassium ABG Chloride ABG Glucose Oxyhemoglobin Sodium Potassium Chloride Carbon Dioxide BUN Creatinine Glucose POC Glucose 168 H 150 H 148 H Lactic Acid Calcium Phosphorus Magnesium AST ALT Alkaline Phosphatase Ammonia Troponin T Total Protein Albumin Triglycerides HDL Cholesterol Lipase Arterial Blood Glucose Arterial Blood Ionized Calcium Acetaminophen Crossmatch 04/07/21 04/08/21 04/08/21 23:02 04:52 11:54 WBC RBC Hgb Hct MCV MCH MCHC RDW Plt Count Seg Neuts % (Manual) Lymphocytes % (Manual) Monocytes % (Manual) Nucleated RBC % Seg Neutrophils # Man Lymphocytes # (Manual) Monocytes # (Manual) PT INR APTT D-Dimer ABG pH POC ABG pCO2 POC ABG pO2 ABG pO2 ABG HCO3 ABG O2 Saturation ABG Base Excess ABG Hemoglobin ABG Oxyhemoglobin ABG Potassium ABG Chloride ABG Glucose Oxyhemoglobin Sodium Potassium Chloride Carbon Dioxide BUN Creatinine Glucose POC Glucose 110 H 137 H 125 H Lactic Acid Calcium Phosphorus Magnesium AST ALT Alkaline Phosphatase Ammonia Troponin T Total Protein Albumin Triglycerides HDL Cholesterol Lipase Arterial Blood Glucose Arterial Blood Ionized Calcium Acetaminophen Crossmatch 04/08/21 04/09/21 04/09/21 17:03 06:02 11:34 WBC RBC Hgb Hct MCV MCH MCHC RDW Plt Count Seg Neuts % (Manual) Lymphocytes % (Manual) Monocytes % (Manual) Nucleated RBC % Seg Neutrophils # Man Lymphocytes # (Manual) Monocytes # (Manual) PT INR APTT D-Dimer ABG pH POC ABG pCO2 POC ABG pO2 ABG pO2 ABG HCO3 ABG O2 Saturation ABG Base Excess ABG Hemoglobin ABG Oxyhemoglobin ABG Potassium ABG Chloride ABG Glucose Oxyhemoglobin Sodium Potassium Chloride Carbon Dioxide BUN Creatinine Glucose POC Glucose 159 H 109 H 147 H Lactic Acid Calcium Phosphorus Magnesium AST ALT Alkaline Phosphatase Ammonia Troponin T Total Protein Albumin Triglycerides HDL Cholesterol Lipase Arterial Blood Glucose Arterial Blood Ionized Calcium Acetaminophen Crossmatch 04/09/21 04/10/21 04/10/21 16:10 00:12 05:05 WBC 15.9 H RBC Hgb 9.6 L Hct MCV MCH 24 L MCHC RDW 23.7 H Plt Count Seg Neuts % (Manual) Lymphocytes % (Manual) Monocytes % (Manual) Nucleated RBC % Seg Neutrophils # Man Lymphocytes # (Manual) Monocytes # (Manual) PT INR APTT D-Dimer ABG pH POC ABG pCO2 POC ABG pO2 ABG pO2 ABG HCO3 ABG O2 Saturation ABG Base Excess ABG Hemoglobin ABG Oxyhemoglobin ABG Potassium ABG Chloride ABG Glucose Oxyhemoglobin Sodium Potassium Chloride Carbon Dioxide BUN Creatinine Glucose POC Glucose 183 H 112 H Lactic Acid Calcium Phosphorus Magnesium AST ALT Alkaline Phosphatase Ammonia Troponin T Total Protein Albumin Triglycerides HDL Cholesterol Lipase Arterial Blood Glucose Arterial Blood Ionized Calcium Acetaminophen Crossmatch 04/10/21 04/10/21 04/10/21 05:05 05:05 05:54 WBC RBC Hgb Hct MCV MCH MCHC RDW Plt Count Seg Neuts % (Manual) Lymphocytes % (Manual) Monocytes % (Manual) Nucleated RBC % Seg Neutrophils # Man Lymphocytes # (Manual) Monocytes # (Manual) PT 11.2 L INR 0.73 L APTT D-Dimer ABG pH POC ABG pCO2 POC ABG pO2 ABG pO2 ABG HCO3 ABG O2 Saturation ABG Base Excess ABG Hemoglobin ABG Oxyhemoglobin ABG Potassium ABG Chloride ABG Glucose Oxyhemoglobin Sodium Potassium Chloride 90.6 L Carbon Dioxide 35 H BUN Creatinine 0.3 L Glucose 110 H POC Glucose 112 H Lactic Acid Calcium Phosphorus Magnesium AST ALT Alkaline Phosphatase Ammonia Troponin T Total Protein Albumin 3.2 L Triglycerides HDL Cholesterol Lipase Arterial Blood Glucose Arterial Blood Ionized Calcium Acetaminophen Crossmatch 04/10/21 04/10/21 04/10/21 12:09 16:22 23:17 WBC RBC Hgb Hct MCV MCH MCHC RDW Plt Count Seg Neuts % (Manual) Lymphocytes % (Manual) Monocytes % (Manual) Nucleated RBC % Seg Neutrophils # Man Lymphocytes # (Manual) Monocytes # (Manual) PT INR APTT D-Dimer ABG pH POC ABG pCO2 POC ABG pO2 ABG pO2 ABG HCO3 ABG O2 Saturation ABG Base Excess ABG Hemoglobin ABG Oxyhemoglobin ABG Potassium ABG Chloride ABG Glucose Oxyhemoglobin Sodium Potassium Chloride Carbon Dioxide BUN Creatinine Glucose POC Glucose 177 H 197 H 131 H Lactic Acid Calcium Phosphorus Magnesium AST ALT Alkaline Phosphatase Ammonia Troponin T Total Protein Albumin Triglycerides HDL Cholesterol Lipase Arterial Blood Glucose Arterial Blood Ionized Calcium Acetaminophen Crossmatch 04/11/21 04/11/21 04/11/21 06:25 11:44 18:41 WBC RBC Hgb Hct MCV MCH MCHC RDW Plt Count Seg Neuts % (Manual) Lymphocytes % (Manual) Monocytes % (Manual) Nucleated RBC % Seg Neutrophils # Man Lymphocytes # (Manual) Monocytes # (Manual) PT INR APTT D-Dimer ABG pH POC ABG pCO2 POC ABG pO2 ABG pO2 ABG HCO3 ABG O2 Saturation ABG Base Excess ABG Hemoglobin ABG Oxyhemoglobin ABG Potassium ABG Chloride ABG Glucose Oxyhemoglobin Sodium Potassium Chloride Carbon Dioxide BUN Creatinine Glucose POC Glucose 111 H 114 H 119 H Lactic Acid Calcium Phosphorus Magnesium AST ALT Alkaline Phosphatase Ammonia Troponin T Total Protein Albumin Triglycerides HDL Cholesterol Lipase Arterial Blood Glucose Arterial Blood Ionized Calcium Acetaminophen Crossmatch 04/11/21 04/12/21 04/12/21 23:29 05:55 11:33 WBC RBC Hgb Hct MCV MCH MCHC RDW Plt Count Seg Neuts % (Manual) Lymphocytes % (Manual) Monocytes % (Manual) Nucleated RBC % Seg Neutrophils # Man Lymphocytes # (Manual) Monocytes # (Manual) PT INR APTT D-Dimer ABG pH POC ABG pCO2 POC ABG pO2 ABG pO2 ABG HCO3 ABG O2 Saturation ABG Base Excess ABG Hemoglobin ABG Oxyhemoglobin ABG Potassium ABG Chloride ABG Glucose Oxyhemoglobin Sodium Potassium Chloride Carbon Dioxide BUN Creatinine Glucose POC Glucose 118 H 143 H 159 H Lactic Acid Calcium Phosphorus Magnesium AST ALT Alkaline Phosphatase Ammonia Troponin T Total Protein Albumin Triglycerides HDL Cholesterol Lipase Arterial Blood Glucose Arterial Blood Ionized Calcium Acetaminophen Crossmatch
== END 2021-04-12 15:56 | disposition hospice, home (50) | DRG 870 ==
LOC: ED 17:17 → CC1 23:58 → IMCU 04-04 03:19 → 4A 04-07 17:53
PROVIDERS: ADMIT Internal Medicine Geriatric Medicine; ATTEND Internal Medicine
PROC: 0BH17EZ Insertion of Endotracheal Airway into Trachea, Via Natural or Artificial Opening (ICD-10-PCS; principal; 2021-03-17)
PROC: 5A1955Z Respiratory Ventilation, Greater than 96 Consecutive Hours (ICD-10-PCS; 2021-03-17)
PROC: 30233N1 Transfusion of Nonautologous Red Blood Cells into Peripheral Vein, Percutaneous Approach (ICD-10-PCS; 2021-03-22)
PROC: 4A033R1 Measurement of Arterial Saturation, Peripheral, Percutaneous Approach (ICD-10-PCS; 2021-03-24)
PROC: 05HA33Z Insertion of Infusion Device into Left Brachial Vein, Percutaneous Approach (ICD-10-PCS; 2021-03-26)
PROC: 5A09557 Assistance with Respiratory Ventilation, Greater than 96 Consecutive Hours, Continuous Positive Airway Pressure (ICD-10-PCS; 2021-03-29)
PROC: 5A0945A Assistance with Respiratory Ventilation, 24-96 Consecutive Hours, High Flow/Velocity Cannula (ICD-10-PCS; 2021-04-01)
PROC: 5A0935A Assistance with Respiratory Ventilation, Less than 24 Consecutive Hours, High Flow/Velocity Cannula (ICD-10-PCS; 2021-04-05)
PROC: 5A0935A Assistance with Respiratory Ventilation, Less than 24 Consecutive Hours, High Flow/Velocity Cannula (ICD-10-PCS; 2021-04-06)
PROC: 5A0935A Assistance with Respiratory Ventilation, Less than 24 Consecutive Hours, High Flow/Velocity Cannula (ICD-10-PCS; 2021-04-07)
PROC: 0DH63UZ Insertion of Feeding Device into Stomach, Percutaneous Approach (ICD-10-PCS; 2021-04-11)
DX: A41.9 Sepsis, unspecified organism (principal); G93.41 Metabolic encephalopathy; J96.01 Acute respiratory failure with hypoxia; J96.21 Acute and chronic respiratory failure with hypoxia; J96.22 Acute and chronic respiratory failure with hypercapnia; I16.1 Hypertensive emergency; E72.20 Disorder of urea cycle metabolism, unspecified; I47.1 Supraventricular tachycardia; N13.30 Unspecified hydronephrosis; J43.2 Centrilobular emphysema; Z20.822 Contact with and (suspected) exposure to COVID-19; R65.20 Severe sepsis without septic shock; J20.9 Acute bronchitis, unspecified; I49.9 Cardiac arrhythmia, unspecified; I10 Essential (primary) hypertension; R77.8 Other specified abnormalities of plasma proteins; E11.65 Type 2 diabetes mellitus with hyperglycemia; K21.9 Gastro-esophageal reflux disease without esophagitis; M19.90 Unspecified osteoarthritis, unspecified site; E78.00 Pure hypercholesterolemia, unspecified; D64.9 Anemia, unspecified; E78.5 Hyperlipidemia, unspecified; K72.90 Hepatic failure, unspecified without coma; F41.9 Anxiety disorder, unspecified; F32.9 Major depressive disorder, single episode, unspecified; E87.8 Other disorders of electrolyte and fluid balance, not elsewhere classified; I48.91 Unspecified atrial fibrillation; E87.5 Hyperkalemia; Z90.49 Acquired absence of other specified parts of digestive tract; Z87.891 Personal history of nicotine dependence; Z90.710 Acquired absence of both cervix and uterus; Z88.8 Allergy status to other drugs, medicaments and biological substances; Z88.0 Allergy status to penicillin; Z91.013 Allergy to seafood
CPT/HCPCS: 36415; 36600; 70450; 71045; 71275; 74018; 76705; 76770; 80048; 80053; 80061; 80076; 80320; 81001; 82140; 82150; 82550; 82553; 82803; 82805; 82962; 83690; 83735; 83880; 84100; 84443; 84478; 84484; 85007; 85025; 85027; 85379; 85610; 85730; 86850; 86900; 86901; 86920; 87040; 87070; 87205; 93005; 94002; 94003; 94640; 94644; 94660; 94760; 99291; G0378; J3490; J7070; J7120; J7121; J7502; J9280; Q0162; Q9967; G0480; J0153; J0330; J1580; J1630; J1644; J1815; J1940; J1956; J2060; J2250; J2270; J2370; J2704; J2710; J2920; J2930; J3010; J7030; J7040; J7042; J7512; P9016; U0003